=== PATIENT | female | born 1945 | race Caucasian/White ===

== ENCOUNTER 2017-02-25 12:00 | Inpatient (IN) | payer MEDICARE, OTHER ==
[2017-02-25 12:07] VITALS: BMI 34.0
[2017-02-25] MEDS ORDERED: Sodium Chloride 0.9% 1,000 ML IV ONE (12:28)
[2017-02-25] MEDS ORDERED: Iohexol 240 (50 ml) PO STA (12:30)
[2017-02-25] MEDS ORDERED: Iohexol 240 (50 ml) ONE (13:12)
[2017-02-25] MEDS ORDERED: Water For Injection 40 ML IV ONE (13:12)
[2017-02-25 13:20] LABS: BASO # 0.1 K/uL (0.0-0.2); BASO % 0.9 % (0.0-2.0); EOS # 0.1 K/uL (0.0-0.7); EOS % 1.6 % (0.0-4.0); HEMATOCRIT 31.4 % (34.0-47.0); LYMPH # 1.5 K/uL (1.0-4.3); LYMPH % 16.4 % (20.0-40.0); MEAN CELL VOLUME 81.7 fL (81.0-99.0); MEAN CORPUSCULAR HEMOGLOBIN 26.3 pg (27.0-31.0); MEAN CORPUSCULAR HGB CONC 32.2 g/dL (33.0-37.0); MEAN PLATELET VOLUME 9.3 fL (7.2-11.7); MONO # 1.5 K/uL (0.0-0.8); MONO % 16.6 % (0.0-10.0); RED CELL DISTRIBUTION WIDTH 13.2 % (11.5-14.5); WHITE BLOOD COUNT 9.1 K/uL (4.8-10.8)
[2017-02-25 13:21] LABS: POTASSIUM 4.5 mmol/L (3.6-5.2)
[2017-02-25 13:23] LABS: ALB/GLOB RATIO 1.1 (1.0-2.1); BILIRUBIN,TOTAL 0.5 mg/dL (0.2-1.3); TOTAL PROTEIN 6.9 g/dL (6.3-8.3)
[2017-02-25 13:24] LABS: CALCIUM 8.5 mg/dl (8.6-10.4)
[2017-02-25 13:35] LABS: TROPONIN I 0.039 ng/mL (0.00-0.120)
--- NOTE | 2017-02-25 15:48 | CT ---
PROCEDURE: CT Abdomen and Pelvis with contrast HISTORY: LLQ pain COMPARISON: None. TECHNIQUE: Contrast dose: Oral contrast only. Radiation dose: Total exam DLP = 1164.06 mGy-cm. This CT exam was performed using one or more of the following dose reduction techniques: Automated exposure control, adjustment of the mA and/or kV according to patient size, and/or use of iterative reconstruction technique. FINDINGS: LOWER THORAX: Platelike atelectasis at the lung bases. LIVER: Unremarkable. No gross lesion or ductal dilatation. GALLBLADDER AND BILE DUCTS: Unremarkable. PANCREAS: Unremarkable. No gross lesion or ductal dilatation. SPLEEN: Unremarkable. ADRENALS: Unremarkable. No mass. KIDNEYS AND URETERS: Unremarkable. No hydronephrosis. No solid mass. Perinephric stranding on the left which may represent a component of pyelonephritis. VASCULATURE: Unremarkable. No aortic aneurysm. BOWEL: Unremarkable. No obstruction. No gross mural thickening. Diverticulosis without an acute inflammatory component or other associated pathologic process. APPENDIX: Normal appendix. PERITONEUM: Unremarkable. No free fluid. No free air. LYMPH NODES: Mesenteric and retroperitoneal lymphadenopathy. The preponderance of lymph nodes are 1 cm and less. The largest lymph node interposed between the aorta in the left kidney measures 15 mm. There is fullness of the left renal vein compared to the right, this is a nonspecific finding. BLADDER: Air within the urinary bladder. REPRODUCTIVE: Air within the vagina. The findings suggest possibility of vesico vaginal fistula. BONES: No acute fracture. OTHER FINDINGS: None. IMPRESSION: 1. Air within the vagina and urinary bladder. In the absence of recent instrumentation vesicle vaginal fistula should be considered. 2. Retroperitoneal and mesenteric adenopathy of uncertain etiology and significance. 3. Subtle perinephric stranding on the left. Fullness of the left renal vein identified. Although extremely unlikely, the findings can be seen with renal vein thrombosis. No evidence of obstructive uropathy or renal calculus disease.
--- NOTE | 2017-02-25 15:52 | CT ---
PROCEDURE: CT HEAD WITHOUT CONTRAST. HISTORY: Dizziness, h/o surgery for pituitary adenoma COMPARISON: 11/28/2016. TECHNIQUE: Axial computed tomography images were obtained through the head/brain without intravenous contrast. Radiation dose: Total exam DLP = 978.09 mGy-cm. This CT exam was performed using one or more of the following dose reduction techniques: Automated exposure control, adjustment of the mA and/or kV according to patient size, and/or use of iterative reconstruction technique. FINDINGS: HEMORRHAGE: No intracranial hemorrhage. BRAIN: No mass effect or edema. No atrophy or chronic microvascular ischemic changes. VENTRICLES: Unremarkable. No hydrocephalus. CALVARIUM: Unremarkable. PARANASAL SINUSES: Ethmoid and sphenoid air cell disease, new compared to the prior study. Right frontal sinusitis also noted. MASTOID AIR CELLS: Unremarkable as visualized. No inflammatory changes. OTHER FINDINGS: None. IMPRESSION: No acute intracranial abnormalities. No significant findings to account for the clinical presentation. Paranasal sinusitis, sparing of the maxillary sinuses, new findings compared to the prior study.
[2017-02-25 16:37] LABS: RBC URINE 16 /hpf (0-3); TRANSITIONAL EPITHIAL < 1 /hpf (0-3); URINE BACTERIA MOD (<OCC); URINE BILIRUBIN NEGATIVE (NEGATIVE); URINE BLOOD NEGATIVE (NEGATIVE); URINE COLOR Yellow (YELLOW); URINE GLUCOSE (UA) 1+ mg/dL (Normal); URINE KETONE NEGATIVE (NEGATIVE); URINE LEUKOCYTE ESTERASE 3+ Leu/uL (Negative); URINE PROTEIN 3+ mg/dL (NEGATIVE); URINE UROBILINOGEN NORMAL mg/dL (0.2-1.0); WBC URINE 182 /hpf (0-5)
[2017-02-25] MEDS ORDERED: Ciprofloxacin 200mg/100ml D5W 100 ML IVPB STA (16:50)
--- NOTE | 2017-02-25 16:54 | C.PDOC ---
Time Seen by Provider: 02/25/17 12:11 Chief Complaint (Nursing): Abdominal Pain History Per: Patient, Family Onset/Duration Of Symptoms: Days (4?) Current Symptoms Are (Timing): Still Present Severity: Moderate Location Of Pain/Discomfort: LLQ Radiation Of Pain To:: Back Quality Of Discomfort: Unable To Describe, "Pain" Associated Symptoms: Diarrhea (today) Exacerbating Factors: None Alleviating Factors: None Additional History Per: Prior Records Abnormal Vaginal Bleeding: No Past Medical History Reviewed: Historical Data, Nursing Documentation, Vital Signs Vital Signs: Last Vital Signs Temp 98.3 F 02/25/17 12:06 Pulse 61 02/25/17 16:26 Resp 16 02/25/17 16:26 BP 128/59 L 02/25/17 16:26 Pulse Ox 100 02/25/17 16:26 - Medical History PMH: CAD, Diabetes, HTN, Hypercholesterolemia, Chronic Kidney Disease Surgical History: Coronary Stent (10/2015) Other Surgeries: Hysterectomy. s/p surgery for Pituitary tumor 1 month ago. - Everyday Health Procedures INDIVIDUAL PSYCHOTHERAPY, SUPPORTIVE (11/23/16) MEASURE OF CARDIAC SAMPL & PRESSURE, L HEART, PERC APPROACH (10/14/15) OTHER COUNSELING (11/23/16) PLAIN RADIOGRAPHY OF MULT COR ART USING L OSM CONTRAST (10/14/15) Family History: States: Diabetes - Social History Hx Tobacco Use: No Hx Alcohol Use: No Hx Substance Use: No - Immunization History Hx Tetanus Toxoid Vaccination: No Hx Influenza Vaccination: Yes Hx Pneumococcal Vaccination: Yes Review Of Systems Except As Marked, All Systems Reviewed And Found Negative. Constitutional: Negative for: Fever Cardiovascular: Negative for: Chest Pain Respiratory: Negative for: Shortness of Breath Gastrointestinal: Positive for: Abdominal Pain. Negative for: Vomiting, Melena , Hematochezia, Hematemesis Genitourinary: Positive for: Incontinence Musculoskeletal: Negative for: Neck Pain Skin: Negative for: Rash Neurological: Positive for: Dizziness. Negative for: Weakness, Numbness, Seizures Physical Exam - Physical Exam Appears: No Acute Distress, Chronically Ill Skin: Normal Color, Warm, Dry, No Rash Head: Atraumatic, Normacephalic Eye(s): left: Abnormal Pupil Oral Mucosa: Dry Neck: Normal ROM, Supple Cardiovascular: Rhythm Regular Respiratory: Normal Breath Sounds, No Accessory Muscle Use Gastrointestinal/Abdominal: Soft, Tenderness (LLQ) Back: CVA Tenderness (mild left) Extremity: Normal ROM Neurological/Psych: Oriented x3, Normal Motor, Normal Sensation ED Course And Treatment - Laboratory Results Result Diagrams: 02/25/17 13:09 02/25/17 13:09 Interpretation Of Abnormal: UTI. Renal insufficiency. O2 Sat by Pulse Oximetry: 100 Pulse Ox Interpretation: Normal - CT Scan/US CT head Other Rad Studies (CT/US): Read By Radiologist, Radiology Report Reviewed CT/US Interpretation: IMPRESSION: No acute intracranial abnormalities. No significant findings to account for the clinical presentation. Paranasal sinusitis, sparing of the maxillary sinuses, new findings compared to the prior study. CT abdomen/pelvis Other Rad Studies (CT/US): Read By Radiologist, Radiology Report Reviewed CT/US Interpretation: IMPRESSION: 1. Air within the vagina and urinary bladder. In the absence of recent instrumentation vesicle vaginal fistula should be considered. 2. Retroperitoneal and mesenteric adenopathy of uncertain etiology and significance. 3. Subtle perinephric stranding on the left. Fullness of the left renal vein identified. Although extremely unlikely , the findings can be seen with renal vein thrombosis. No evidence of obstructive uropathy or renal calculus disease. Progress - Interventions Interventions:: Observation, Intravenous fluid - Medications Administered Intravenous: Antiemetic - Data Reviewed Data Reviewed: Lab, Diagnostic imaging, Old records - Patient Status Patient status: Partially improved - Continuity of Care Discussed patient case with:: Patient, Family-HIPPA compliant, ED Nurse, PMD - Patient Plan Patient Plan: Admission Disposition Discussed With : Renato Orlando Comment: He accepted pt on his service. He wants pt to receive Cipro 200mg IV bid. Doctor Will See Patient In The: Hospital Counseled Patient/Family Regarding: Studies Performed, Diagnosis - Disposition Disposition: HOSPITALIZED Disposition Time: 16:57 Condition: FAIR - Clinical Impression Clinical Impression: Vesico-vaginal fistula, Complicated UTI (urinary tract infection), Paranasal sinus disease, Chronic renal failure
--- NOTE | 2017-02-25 18:48 | CP.PCM.HP ---
History of Present Illness - History of Present Illness History of Present Illness: Chief complaint: Weakness History present illness: 71-year-old female with history of diabetes hypertension and hypercholesteremia CAD coronary artery stenting renal insufficiency history of pituitary tumor, recently had surgical intervention. Patient is currently taking supplementation for cortisol, thyroid. Patient is currently feeling increasing weakness, tiredness, easy fatigability, depressed appearing She's also complaining of some pain over the left lower quadrant region. Urinary discomfort noted. Patient is looking like extremely depressed. Her blood pressure stays on the low side. She is not eating well, poor appetite noted, denies any chest pain, no palpitation noted. But not feeling well at all. Postoperatively patient was being managed by the email marketing coordinator. Currently on supplemental thyroid hormones as well as cortisol. Patient is having very highly elevated blood sugar recently. She is feeling also some dizziness, weakness, tiredness, easy fatigability. And skin also getting more darker Past medical history: Diabetes hypertension and hypercholesteremia CAD status post distended renal insufficiency, pituitary tumor removal. Patient had a left the eye droop which is improving Allergy: No known drug allergy Personal history: Nonsmoker nonalcoholic. Review of system: Complaining of headache, complaining of nausea, but no vomiting noted, no chest pain, no palpitation, weakness tiredness present. Abdominal discomfort noted, left lower quadrant tenderness and pain noted. Also having episodes of diarrhea. Urinary discomfort noted. Incontinence present. No leg swelling On examination: Vital signs reviewed No neck vein distention noted, dry mucosa noted Chest good air entry bilaterally, no wheezing or rales noted CVS regular heart sound, no murmur noted Abdomen soft, nontender. 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 Urinary incontinence. Questionable stranding of the left kidney, suggestive of infection. Urine analysis showing evidence of elevated WBC, elevated bacteriuria is noted Assessment and recommendation: 71-year-old female with history of diabetes hypertension hyponatremia CAD status post a stent to coronary artery disease, renal insufficiency. Patient recently underwent a pituitary tumor removal. Currently on supplemental hormones. Patient is having increasing depression, and also hypertension. Evidence of hypoadrenalism cannot be ruled out. Suggested the patient to have further workup for hormonal imbalance. Urinary tract infection noted, possibly urosepsis. We'll start the patient on IV antibiotic. IV fluids. We'll check for cord PSH cortisol level. Supplement the thyroid and hormones, cortisone. Glucose monitoring. We will follow the patient Present on Admission - Present on Admission Any Indicators Present on Admission: No History of DVT/PE: No History of Uncontrolled Diabetes: No Urinary Catheter: No Decubitus Ulcer Present: No Past Patient History - Infectious Disease Hx of Infectious Diseases: None - Past Medical History & Family History Past Medical History?: Yes - Past Social History Smoking Status: Never Smoked - CARDIAC Hx Hypercholesterolemia: Yes Hx Hypertension: Yes - PULMONARY Hx Respiratory Disorders: No - NEUROLOGICAL Hx Neurological Disorder: No - HEENT Hx HEENT Problems: Yes Other/Comment: left eye drooping-blurry due to DM - RENAL Hx Chronic Kidney Disease: Yes - ENDOCRINE/METABOLIC Hx Diabetes Mellitus Type 2: Yes - HEMATOLOGICAL/ONCOLOGICAL Hx Blood Disorders: No - INTEGUMENTARY Hx Dermatological Problems: No - MUSCULOSKELETAL/RHEUMATOLOGICAL Hx Musculoskeletal Disorders: No Hx Falls: No - GASTROINTESTINAL Hx Gastrointestinal Disorders: No - GENITOURINARY/GYNECOLOGICAL Hx Genitourinary Disorders: No - PSYCHIATRIC Hx Substance Use: No - SURGICAL HISTORY Hx Coronary Stent: Yes (10/2015) - ANESTHESIA Hx Anesthesia: Yes Hx Anesthesia Reactions: No Hx Malignant Hyperthermia: No Meds Allergies/Adverse Reactions: Allergies Allergy/AdvReac Type Severity Reaction Status Date / Time No Known Allergies Allergy Verified 02/25/17 12:08 Results - Vital Signs Recent Vital Signs: Last Vital Signs Temp 98.3 F 02/25/17 12:06 Pulse 60 02/25/17 17:30 Resp 20 02/25/17 17:30 BP 135/62 02/25/17 17:30 Pulse Ox 100 02/25/17 17:30 - Labs Result Diagrams: 02/25/17 13:09 02/25/17 13:09
[2017-02-25] MEDS: Ciprofloxacin 200mg/100ml D5W 100 ML IVPB SCH (19:00)
[2017-02-25] MEDS: Sodium Chloride 0.9% 1,000 ML IV SCH (19:27)
[2017-02-25] MEDS: (Novolin R) Insulin Human Regular 100 units/ml vial SC SCH (22:17)
[2017-02-25] MEDS: (Lantus) Insulin Glargine, Recombinant SC SCH (22:26)
[2017-02-26] MEDS: Levothyroxine 25 MCG TAB PO SCH (05:35)
[2017-02-26] MEDS: Ciprofloxacin 200mg/100ml D5W 100 ML IVPB SCH ×2 (05:44→18:04)
[2017-02-26 06:39] LABS: RBC URINE < 1 /hpf (0-3); URINE BACTERIA RARE (<OCC); URINE BILIRUBIN NEGATIVE (NEGATIVE); URINE BLOOD 1+ (NEGATIVE); URINE COLOR Straw (YELLOW); URINE GLUCOSE (UA) 2+ mg/dL (Normal); URINE KETONE NEGATIVE (NEGATIVE); URINE LEUKOCYTE ESTERASE 3+ Leu/uL (Negative); URINE PROTEIN 2+ mg/dL (NEGATIVE); URINE UROBILINOGEN NORMAL mg/dL (0.2-1.0); WBC URINE 3 /hpf (0-5)
[2017-02-26 08:28] LABS: BASO # 0.1 K/uL (0.0-0.2); BASO % 0.6 % (0.0-2.0); EOS # 0.3 K/uL (0.0-0.7); EOS % 3.7 % (0.0-4.0); HEMATOCRIT 28.6 % (34.0-47.0); LYMPH # 1.9 K/uL (1.0-4.3); LYMPH % 23.2 % (20.0-40.0); MEAN CELL VOLUME 80.5 fL (81.0-99.0); MEAN CORPUSCULAR HEMOGLOBIN 26.4 pg (27.0-31.0); MEAN CORPUSCULAR HGB CONC 32.7 g/dL (33.0-37.0); MEAN PLATELET VOLUME 9.4 fL (7.2-11.7); MONO # 1.1 K/uL (0.0-0.8); MONO % 13.3 % (0.0-10.0); NRBC % 0.1 % (0.0-2.0); RED CELL DISTRIBUTION WIDTH 12.8 % (11.5-14.5); WHITE BLOOD COUNT 8.1 K/uL (4.8-10.8)
[2017-02-26] MEDS: (Novolin R) Insulin Human Regular 100 units/ml vial SC SCH ×4 (08:30→21:44)
[2017-02-26 08:36] LABS: BILIRUBIN,TOTAL 0.4 mg/dL (0.2-1.3)
[2017-02-26 08:37] LABS: CALCIUM 7.9 mg/dl (8.6-10.4)
[2017-02-26 09:06] LABS: CORTISOL AM 12.8 ug/dL (4.46-22.7); THYROID STIMULATING HORMONE 0.41 mIU/L (0.46-4.68)
[2017-02-26] MEDS: Sodium Chloride 0.9% 1,000 ML IV SCH ×2 (09:19→21:47)
--- NOTE | 2017-02-26 12:59 | CP.PCM.PN ---
Subjective - Date & Time of Evaluation Date of Evaluation: 02/26/17 Time of Evaluation: 14:30 - Subjective Subjective: Patient was seen and examined at bedside She complains of generalized weakness and dizziness. Patient had episode of hypotension earlier today when she got up to go the bathroom. Objective - Vital Signs/Intake and Output Vital Signs (last 24 hours): Temp Pulse Resp BP Pulse Ox 98.9 F 74 20 133/71 98 02/26/17 07:30 02/26/17 07:30 02/26/17 07:30 02/26/17 07:30 02/26/17 07:30 Intake and Output: 02/26/17 02/26/17 06:59 18:59 Intake Total 840 Balance 840 - Medications Medications: Current Medications Amlodipine Besylate (Norvasc) 10 mg PO DAILY [facility] Last Admin: 02/26/17 10:45 Dose: 10 mg Aspirin (Ecotrin) 81 mg PO DAILY [facility] Last Admin: 02/26/17 10:45 Dose: 81 mg Carvedilol (Coreg) 6.25 mg PO BID [facility] Last Admin: 02/26/17 10:45 Dose: 6.25 mg Clopidogrel Bisulfate (Plavix) 75 mg PO DAILY [facility] Last Admin: 02/26/17 10:45 Dose: 75 mg Ergocalciferol (Drisdol 50,000 Intl Units Cap) 1 cap PO QWK [facility] Famotidine (Pepcid) 20 mg PO DAILY [facility] Last Admin: 02/26/17 10:45 Dose: 20 mg Ferrous Sulfate (Feosol) 325 mg PO DAILY [facility] Last Admin: 02/26/17 10:45 Dose: 325 mg Glipizide (Glucotrol) 10 mg PO DAILY [facility] Last Admin: 02/26/17 10:45 Dose: 10 mg Heparin Sodium (Porcine) (Heparin) 5,000 units SC Q8 [facility] Last Admin: 02/26/17 05:36 Dose: 5,000 units Hydralazine HCl (Apresoline) 25 mg PO Q8 [facility] Last Admin: 02/26/17 05:40 Dose: 25 mg Hydrocortisone (Cortef) 10 mg PO BID [facility] Last Admin: 02/26/17 10:46 Dose: 10 mg Ciprofloxacin (Cipro 200mg/100ml D5w) 100 mls @ 67 mls/hr IVPB Q12H [facility] Last Admin: 02/26/17 05:44 Dose: 67 mls/hr Sodium Chloride (Sodium Chloride 0.9%) 1,000 mls @ 75 mls/hr IV .[id number] [facility] Last Admin: 02/26/17 09:19 Dose: 75 mls/hr Insulin Glargine (Lantus) [address] [facility] Last Admin: 02/25/17 22:26 Dose: 20 units Insulin Human Regular (Novolin R) 0 unit SC ACHS [facility] PRN Reason: Protocol Last Admin: 02/26/17 12:30 Dose: 2 unit Isosorbide Mononitrate (Imdur) 60 mg PO DAILY [facility] Last Admin: 02/26/17 10:45 Dose: 60 mg Levothyroxine Sodium (Synthroid) 25 mcg PO DAILY@0630 [facility] Last Admin: 02/26/17 05:35 Dose: 25 mcg Rosuvastatin Calcium (Crestor) 2.[address] [facility] - Labs Labs: 02/26/17 08:16 02/26/17 08:16 APTT 47 SECONDS (21-34) H 02/26/17 08:16 - Head Exam Head Exam: ATRAUMATIC, NORMOCEPHALIC - Eye Exam Eye Exam: Normal appearance, PERRL. absent: Scleral icterus - Respiratory Exam Respiratory Exam: Clear to Ausculation Bilateral - Cardiovascular Exam Cardiovascular Exam: REGULAR RHYTHM, +S1, +S2 - GI/Abdominal Exam GI & Abdominal Exam: Soft, Normal Bowel Sounds - Extremities Exam Extremities Exam: Normal Inspection. absent: Pedal Edema - Neurological Exam Neurological Exam: Alert, Awake - Psychiatric Exam Additional comments: Depressed mood Assessment and Plan (1) Dizziness Status: Acute (2) Hypotension Status: Acute (3) Pituitary adenoma Status: Acute (4) CAD (coronary artery disease) Status: Acute (5) Diabetes Status: Acute (6) Dyslipidemia Status: Acute - Assessment and Plan (Free Text) Plan: Dizziness and weakness likely secondary to hypotension vs hypocortisolism Will hold Norvasc and Hydralazine and monitor BP closely- Continue IVF Follow up ACTH level We will continue current management of DM Discussed with nursing staff Fall precautions
[2017-02-26] MEDS: Rosuvastatin Calcium 2.5 mg Tab PO SCH (21:43)
[2017-02-26] MEDS: (Lantus) Insulin Glargine, Recombinant SC SCH (21:43)
[2017-02-27] MEDS: Levothyroxine 25 MCG TAB PO SCH (05:32)
[2017-02-27] MEDS: Ciprofloxacin 200mg/100ml D5W 100 ML IVPB SCH ×2 (06:01→17:45)
[2017-02-27] MEDS: (Novolin R) Insulin Human Regular 100 units/ml vial SC SCH ×4 (08:49→21:26)
[2017-02-27] MEDS: Sodium Chloride 0.9% 1,000 ML IV SCH (11:30)
--- NOTE | 2017-02-27 19:19 | CP.PCM.PN ---
Subjective - Date & Time of Evaluation Date of Evaluation: 02/27/17 Time of Evaluation: 19:18 - Subjective Subjective: Patient is currently feeling much better in her symptoms. Less pain in the urination noted. Denies any chest pain. No nausea vomiting noted, rash around the perianal region noted Objective - Vital Signs/Intake and Output Vital Signs (last 24 hours): Temp Pulse Resp BP Pulse Ox 98.4 F 68 20 124/61 96 02/27/17 15:10 02/27/17 15:10 02/27/17 15:10 02/27/17 15:10 02/27/17 15:10 Intake and Output: 02/27/17 02/28/17 18:59 06:59 Intake Total 950 Balance 950 Vital signs reviewed No neck vein distention noted Chest good air entry bilaterally, no wheezing or rales noted CVS regular heart sound, no murmur noted Abdomen soft, nontender. 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 3, no functional neurological deficit - Medications Medications: Current Medications Amlodipine Besylate (Norvasc) 10 mg PO DAILY [facility] Last Admin: 02/26/17 10:45 Dose: 10 mg Aspirin (Ecotrin) 81 mg PO DAILY [facility] Last Admin: 02/27/17 11:09 Dose: 81 mg Carvedilol (Coreg) 6.25 mg PO BID [facility] Last Admin: 02/27/17 17:36 Dose: 6.25 mg Clopidogrel Bisulfate (Plavix) 75 mg PO DAILY [facility] Last Admin: 02/27/17 11:09 Dose: 75 mg Ergocalciferol (Drisdol 50,000 Intl Units Cap) 1 cap PO QWK [facility] Famotidine (Pepcid) 20 mg PO DAILY [facility] Last Admin: 02/27/17 11:10 Dose: 20 mg Ferrous Sulfate (Feosol) 325 mg PO DAILY [facility] Last Admin: 02/27/17 11:09 Dose: 325 mg Glipizide (Glucotrol) 10 mg PO DAILY [facility] Last Admin: 02/27/17 11:10 Dose: 10 mg Heparin Sodium (Porcine) (Heparin) 5,000 units SC Q8 [facility] Last Admin: 02/27/17 14:14 Dose: 5,000 units Hydralazine HCl (Apresoline) 25 mg PO Q8 [facility] Last Admin: 02/26/17 05:40 Dose: 25 mg Hydrocortisone (Cortef) 10 mg PO BID [facility] Last Admin: 02/27/17 17:36 Dose: 10 mg Ciprofloxacin (Cipro 200mg/100ml D5w) 100 mls @ 67 mls/hr IVPB Q12H [facility] Last Admin: 02/27/17 17:45 Dose: 67 mls/hr Sodium Chloride (Sodium Chloride 0.9%) 1,000 mls @ 75 mls/hr IV .[id number] [facility] Last Admin: 02/27/17 11:30 Dose: Not Given Insulin Glargine (Lantus) 20 unit SC [facility] Last Admin: 02/26/17 21:43 Dose: 20 units Insulin Human Regular (Novolin R) 0 unit SC [facility] PRN Reason: Protocol Last Admin: 02/27/17 17:35 Dose: 4 unit Isosorbide Mononitrate (Imdur) 60 mg PO DAILY [facility] Last Admin: 02/27/17 11:09 Dose: 60 mg Levothyroxine Sodium (Synthroid) 25 mcg PO DAILY@0630 [facility] Last Admin: 02/27/17 05:32 Dose: 25 mcg Rosuvastatin Calcium (Crestor) 2.5 mg PO [facility] Last Admin: 02/26/17 21:43 Dose: 2.5 mg - Labs Labs: 02/26/17 08:16 02/26/17 08:16 APTT 47 SECONDS (21-34) H 02/26/17 08:16 Assessment and Plan (1) Chronic renal failure Status: Acute (2) Complicated UTI (urinary tract infection) Assessment & Plan: Admitted with acute urinary tract infection, complicated with the sepsis. Currently improving. On ciprofloxacin. Physical therapy tomorrow. Status: Acute (3) Pituitary adenoma Status: Acute
[2017-02-27] MEDS: (Lantus) Insulin Glargine, Recombinant SC SCH (21:27)
[2017-02-27] MEDS: Rosuvastatin Calcium 2.5 mg Tab PO SCH (21:28)
[2017-02-27] MEDS: Clotrimazole/Betamethasone Cream(15 gm) TOP SCH (21:58)
[2017-02-28] MEDS: Sodium Chloride 0.9% 1,000 ML IV SCH ×2 (00:20→01:57)
[2017-02-28] MEDS: Levothyroxine 25 MCG TAB PO SCH (05:48)
[2017-02-28] MEDS: Ciprofloxacin 200mg/100ml D5W 100 ML IVPB SCH ×2 (05:48→17:45)
[2017-02-28 08:20] VITALS: O2SAT 97
--- NOTE | 2017-02-28 08:27 | CP.PCM.PN ---
Subjective - Date & Time of Evaluation Date of Evaluation: 02/28/17 Time of Evaluation: 08:26 - Subjective Subjective: Patient is sitting up, able to eat better. She denies any chest pain or shortness of breath. No leg swelling noted. But facial swelling, minimally noted. Currently on IV fluid. Objective - Vital Signs/Intake and Output Vital Signs (last 24 hours): Temp Pulse Resp BP Pulse Ox 98.2 F 58 L 18 106/61 97 02/28/17 08:00 02/28/17 08:00 02/28/17 08:00 02/28/17 08:00 02/28/17 08:00 On examination: HEENT PERRLA, neck supple No thyromegaly was noted and no cervical adenopathy noted Chest bilateral good air entry, no wheezing or rales noted CVS regular heart sound, no murmur Abdomen soft and no organomegaly pedal edema. 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 no functional neurological deficit Intake and Output: 02/28/17 02/28/17 06:59 18:59 Intake Total 720 Balance 720 - Medications Medications: Current Medications Amlodipine Besylate (Norvasc) 10 mg PO DAILY [facility] Last Admin: 02/26/17 10:45 Dose: 10 mg Aspirin (Ecotrin) 81 mg PO DAILY [facility] Last Admin: 02/27/17 11:09 Dose: 81 mg Betamethasone/Clotrimazole (Lotrisone) 0 gm TOP BID [facility] Last Admin: 02/27/17 21:58 Dose: 1 applic Carvedilol (Coreg) 6.25 mg PO BID [facility] Last Admin: 02/27/17 17:36 Dose: 6.25 mg Clopidogrel Bisulfate (Plavix) 75 mg PO DAILY [facility] Last Admin: 02/27/17 11:09 Dose: 75 mg Ergocalciferol (Drisdol 50,000 Intl Units Cap) 1 cap PO QWK [facility] Famotidine (Pepcid) 20 mg PO DAILY [facility] Last Admin: 02/27/17 11:10 Dose: 20 mg Ferrous Sulfate (Feosol) 325 mg PO DAILY [facility] Last Admin: 02/27/17 11:09 Dose: 325 mg Glipizide (Glucotrol) 10 mg PO DAILY [facility] Last Admin: 02/27/17 11:10 Dose: 10 mg Heparin Sodium (Porcine) (Heparin) 5,000 units SC Q8 [facility] Last Admin: 02/28/17 05:47 Dose: 5,000 units Hydralazine HCl (Apresoline) 25 mg PO Q8 [facility] Last Admin: 02/26/17 05:40 Dose: 25 mg Hydrocortisone (Cortef) 10 mg PO BID [facility] Last Admin: 02/27/17 17:36 Dose: 10 mg Ciprofloxacin (Cipro 200mg/100ml D5w) 100 mls @ 67 mls/hr IVPB Q12H [facility] Last Admin: 02/28/17 05:48 Dose: 67 mls/hr Sodium Chloride (Sodium Chloride 0.9%) 1,000 mls @ 75 mls/hr IV .[id number] [facility] Last Admin: 02/28/17 01:57 Dose: 75 mls/hr Insulin Glargine (Lantus) [address] [facility] Last Admin: 02/27/17 21:27 Dose: 20 units Insulin Human Regular (Novolin R) 0 unit SC [facility] PRN Reason: Protocol Last Admin: 02/27/17 21:26 Dose: 3 unit Isosorbide Mononitrate (Imdur) 60 mg PO DAILY [facility] Last Admin: 02/27/17 11:09 Dose: 60 mg Levothyroxine Sodium (Synthroid) 25 mcg PO DAILY@0630 [facility] Last Admin: 02/28/17 05:48 Dose: 25 mcg Rosuvastatin Calcium (Crestor) 2.[address] [facility] Last Admin: 02/27/17 21:28 Dose: 2.5 mg - Labs Labs: 02/26/17 08:16 02/26/17 08:16 APTT 47 SECONDS (21-34) H 02/26/17 08:16 Assessment and Plan (1) Complicated UTI (urinary tract infection) Assessment & Plan: Patient with chronic renal failure, diabetes, hypertension. Poorly controlled diabetes. Patient is currently having urinary tract infection, sepsis, improving. Currently on IV antibiotic. Will do the physical therapy, and the patient stable and able to walk. Will discharge the patient this afternoon with by mouth antibiotic Status: Acute (2) Pituitary adenoma Status: Acute (3) Chronic renal failure Status: Acute
[2017-02-28] MEDS: (Novolin R) Insulin Human Regular 100 units/ml vial SC SCH ×3 (08:31→17:18)
[2017-02-28] MEDS: Clotrimazole/Betamethasone Cream(15 gm) TOP SCH ×2 (11:07→17:25)
[2017-02-28 17:08] VITALS: BP 129/64; PULSE 50; RESP 20; TEMP 97.4
[2017-03-04] MEDS ORDERED: Ergocalciferol 50,000 Intl Units Cap PO SCH (10:00)
--- NOTE | 2017-05-07 13:41 | DS ---
HISTORY OF PRESENT ILLNESS: A 71-year-old female with a history of diabetes, hypertension, high cholesterol, CAD, coronary artery bypass, coronary artery stenting, anal insufficiency, status post surgical intervention, admitted to the hospital with weakness. The patient is noted to have increasing episodes of weakness, dehydration, and also uncontrolled blood pressure. The patient was hospitalized, closely monitored with the blood sugar. The patient also have elevated WBC and the bacteria in the urine, suspect of urinary tract infection. During the stay in the hospital, the patient started to have intravenous IV antibiotic, glucose control started, physical therapy attempted, the patient clinically improved markedly. The patient is able to sit up and eat better. IV fluid also improving. The patient's facial swelling also improved markedly. Clinically, the patient is stable. She will be discharged to home. She will follow up as an outpatient. Medications reviewed. Reconciliation was done. Difficulty with the patient's family and we will follow up with the patient. Renato Orlando MD
== END 2017-02-28 19:30 | disposition home or self-care (01) | DRG 690 ==
LOC: C.ER 12:00 → C.9E 16:59 → C.3T 17:13
PROVIDERS: ADMIT Internal Medicine; ATTEND Internal Medicine
DX: N39.0 Urinary tract infection, site not specified (principal); N82.0 Vesicovaginal fistula; I95.9 Hypotension, unspecified; E11.22 Type 2 diabetes mellitus with diabetic chronic kidney disease; N39.498 Other specified urinary incontinence; E11.65 Type 2 diabetes mellitus with hyperglycemia; I25.10 Atherosclerotic heart disease of native coronary artery without angina pectoris; I12.9 Hypertensive chronic kidney disease with stage 1 through stage 4 chronic kidney disease, or unspecified chronic kidney disease; D35.2 Benign neoplasm of pituitary gland; J32.9 Chronic sinusitis, unspecified; H02.402 Unspecified ptosis of left eyelid; E78.00 Pure hypercholesterolemia, unspecified; Z95.5 Presence of coronary angioplasty implant and graft; Z79.84 Long term (current) use of oral hypoglycemic drugs

== ENCOUNTER 2017-07-22 19:36 | Inpatient (IN) | payer MEDICARE ==
[2017-07-22 19:36] VITALS: BMI 34.0
[2017-07-22] MEDS ORDERED: Sodium Chloride 0.9% 500 ML IV ONE (20:26)
--- NOTE | 2017-07-22 20:33 | C.PDOC ---
Chief Complaint (Nursing): Abdominal Pain Past Medical History Vital Signs: Last Vital Signs Temp 99 F 07/22/17 19:43 Pulse 70 07/22/17 19:43 Resp 20 07/22/17 19:43 BP 119/79 07/22/17 19:43 Pulse Ox 99 07/22/17 19:43 - Medical History PMH: CAD, Diabetes, HTN, Hypercholesterolemia, Chronic Kidney Disease Surgical History: Coronary Stent (10/2015) - [facility] Procedures INDIVIDUAL PSYCHOTHERAPY, SUPPORTIVE (11/23/16) MEASURE OF CARDIAC SAMPL & PRESSURE, L HEART, PERC APPROACH (10/14/15) OTHER COUNSELING (11/23/16) PLAIN RADIOGRAPHY OF MULT COR ART USING L OSM CONTRAST (10/14/15) Family History: States: Diabetes - Social History Hx Tobacco Use: No Hx Alcohol Use: No Hx Substance Use: No - Immunization History Hx Tetanus Toxoid Vaccination: No Hx Influenza Vaccination: Yes Hx Pneumococcal Vaccination: Yes ED Course And Treatment O2 Sat by Pulse Oximetry: 99 Disposition - Disposition
[2017-07-22] MEDS ORDERED: Morphine 4 MG/ML VIAL ONE (20:40)
--- NOTE | 2017-07-22 20:50 | C.PDOC ---
History Of Present Illness Patient is a 71 y/o female, with a PMHx of insulin-dependent DM, who presents to the ED with complaints of intermittent epigastric and RUQ pain associated with vomiting for the last 5 days. Patient describes pain as burning that worsens with deep inspirations and radiates to the back. Patient notes unproductive cough and admits vomiting approximately twice a day, unprovoked by eating or drinking. Denies fever or any PMHx of gallbladder issues, reflux, or appendectomy. Admits to PSHx of hysterectomy and coronary stent. Patient reports taking Tylenol to try to alleviate pain. No other physical complaints at this time. Chief Complaint (Nursing): Abdominal Pain History Per: Patient History/Exam Limitations: no limitations Onset/Duration Of Symptoms: Days (x5 days), Intermittent Episodes Current Symptoms Are (Timing): Still Present Location Of Pain/Discomfort: RUQ, Epigastric Quality Of Discomfort: Burning Associated Symptoms: Chills, Vomiting, Back Pain (radiates to back). denies: Fever Recent travel outside of the [place]: No Additional History Per: Patient Past Medical History Reviewed: Historical Data, Nursing Documentation, Vital Signs Vital Signs: Last Vital Signs Temp 97.9 F 07/23/17 02:38 Pulse 74 07/23/17 02:38 Resp 20 07/23/17 02:38 BP 169/77 H 07/23/17 02:38 Pulse Ox 99 07/23/17 02:42 - Medical History PMH: CAD, Diabetes, HTN, Hypercholesterolemia, Chronic Kidney Disease Surgical History: Coronary Stent (10/2015) Other Surgeries: hysterectomy - [facility] Procedures INDIVIDUAL PSYCHOTHERAPY, SUPPORTIVE (11/23/16) MEASURE OF CARDIAC SAMPL & PRESSURE, L HEART, PERC APPROACH (10/14/15) OTHER COUNSELING (11/23/16) PLAIN RADIOGRAPHY OF MULT COR ART USING L OSM CONTRAST (10/14/15) Family History: States: Diabetes - Social History Hx Tobacco Use: No Hx Alcohol Use: No Hx Substance Use: No - Immunization History Hx Tetanus Toxoid Vaccination: No Hx Influenza Vaccination: Yes Hx Pneumococcal Vaccination: Yes Review Of Systems Constitutional: Positive for: Chills. Negative for: Fever Respiratory: Positive for: Cough. Negative for: Sputum Gastrointestinal: Positive for: Nausea, Vomiting, Abdominal Pain Musculoskeletal: Positive for: Back Pain Physical Exam - Physical Exam Appears: Well, Other (alert and awake, moderately ill) Skin: Normal Color, Warm, Dry, No Cyanotic, Other (anicteric; no skin breakdown) Head: Atraumatic, Normacephalic Eye(s): bilateral: Normal Inspection Oral Mucosa: Moist Chest: Symmetrical Cardiovascular: Rhythm Regular, No Murmur Respiratory: Rales (right base/mid lung field) Gastrointestinal/Abdominal: Bowel Sounds (positive in all 4 quadrants), Soft, Tenderness (subjective tenderness in epigastric and RUQ), Distention ( moderately ), No Guarding Back: Muscle Spasm (trapezius muscle of right upper quarter backer to palpation and spasmic) Extremity: No Pedal Edema, No Swelling Pulses: Left Dorsalis Pedis: Normal, Right Dorsalis Pedis: Normal DTR: Bicep (R): 2+, Bicep (L): 2+, Tricep (R): 2+, Tricep (L): 2+, Knee (R): 2+ , Knee (L): 2+, Ankle (R): 2+, Ankle (L): 2+ Neurological/Psych: Oriented x3, Normal Speech, Normal Cognition ED Course And Treatment - Laboratory Results Result Diagrams: 07/22/17 20:57 07/22/17 20:57 O2 Sat by Pulse Oximetry: 99 (room air) Pulse Ox Interpretation: Normal - Radiology CXR: Interpreted by Me, Viewed By Me CXR Interpretation: Yes: No Acute Disease, Cardiomegaly (cardiac silhouette borderline englarged) - CT Scan/US No standard instances Other Rad Studies (CT/US): Interpreted By Me, Read By Radiologist, Radiology Report Reviewed Medical Decision Making Medical Decision Making: Plan: Blood work, CXR, and abdomen US ordered. Morphine, Zofran, and IV fluids administered. Impressions: 71 y/o with intractable vomiting, dehydration with worsening renal function, will admit pt for observation and hydration to care of Disposition - Disposition Disposition: HOSPITALIZED - Clinical Impression Clinical Impression: Vomiting - Scribe Statement The provider has reviewed the documentation as recorded by the Scribe Nicole Amos All medical record entries made by the Scribe were at my direction and personally dictated by me. I have reviewed the chart and agree that the record accurately reflects my personal performance of the history, physical exam, medical decision making, and the department course for this patient. I have also personally directed, reviewed, and agree with the discharge instructions and disposition. Provider Attestation: All medical record entries made by the Scribe were at my direction and personally dictated by me. I have reviewed the chart and agree that the record accurately reflects my personal performance of the history, physical exam, medical decision making, and the department course for this patient. I have also personally directed, reviewed, and agree with the discharge instructions and disposition.
[2017-07-22 21:05] LABS: BASO # 0.1 K/uL (0.0-0.2); BASO % 0.9 % (0.0-2.0); EOS # 0.4 K/uL (0.0-0.7); EOS % 2.9 % (0.0-4.0); HEMATOCRIT 34.6 % (34.0-47.0); LYMPH # 2.5 K/uL (1.0-4.3); LYMPH % 19.1 % (20.0-40.0); MEAN CORPUSCULAR HEMOGLOBIN 25.7 pg (27.0-31.0); MEAN CORPUSCULAR HGB CONC 32.1 g/dL (33.0-37.0); MEAN PLATELET VOLUME 8.4 fL (7.2-11.7); MONO # 1.3 K/uL (0.0-0.8); MONO % 9.9 % (0.0-10.0); RED CELL DISTRIBUTION WIDTH 13.7 % (11.5-14.5); WHITE BLOOD COUNT 12.9 K/uL (4.8-10.8)
[2017-07-22 21:25] LABS: POTASSIUM 4.4 mmol/L (3.6-5.2)
[2017-07-22 21:27] LABS: ALB/GLOB RATIO 0.9 (1.0-2.1); BILIRUBIN,TOTAL 0.6 mg/dL (0.2-1.3); TOTAL PROTEIN 7.9 g/dL (6.3-8.3)
[2017-07-22 21:28] LABS: CALCIUM 8.7 mg/dl (8.6-10.4)
[2017-07-22 21:51] LABS: TROPONIN I 0.015 ng/mL (0.00-0.120)
--- NOTE | 2017-07-23 00:41 | US ---
EXAM: US Abdomen Limited, Right Upper Quadrant CLINICAL HISTORY: 71 years old, female; Pain; Abdominal pain; Epigastric; Additional info: Abd pain TECHNIQUE: Real-time ultrasound of the right upper quadrant with image documentation. COMPARISON: US - RENAL 2015-10-16 15:24 FINDINGS: Liver: Increased in echogenicity but unremarkable in size measuring 13 cm in longitudinal dimension. No mass. No intrahepatic bile duct dilation. Gallbladder: No acute findings. No gallstones. Common bile duct: No stones. No dilation, measuring 4 mm. Pancreas: Visualization of the pancreas is limited by overlying bowel gas. Right kidney: No acute findings. No obstructing stones. No solid mass. No hydronephrosis. IMPRESSION: Fatty infiltration of the liver. Limited evaluation of the pancreas, secondary to overlying bowel gas. Otherwise, unremarkable sonographic evaluation of the right upper quadrant, as detailed above.
--- NOTE | 2017-07-23 01:27 | CT ---
EXAM: CT Abdomen and Pelvis Without Intravenous Contrast CLINICAL HISTORY: 71 years old, female; Pain; Abdominal pain; Generalized; Additional info: Abd pain TECHNIQUE: Axial computed tomography images of the abdomen and pelvis without intravenous contrast. All CT scans at this facility use one or more dose reduction techniques, viz.: automated exposure control; ma/kV adjustment per patient size (including targeted exams where dose is matched to indication; i.e. head); or iterative reconstruction technique. Coronal and sagittal reformatted images were created and reviewed. COMPARISON: CT - ABD PELVIS W/O PO OR IV CONT 2015-10-11 15:04 FINDINGS: Lower thorax: Bibasilar atelectasis, unchanged in the. ABDOMEN: Liver: No acute findings Gallbladder and bile ducts: No acute finding. No calcified stones. No intra-extrahepatic biliary ductal dilation. Pancreas: Limited evaluation secondary to the lack of intravenous contrast. Spleen: No acute findings. Adrenals: No acute findings. Kidneys and ureters: No obstructing stones. No hydronephrosis. Moderate left-sided perinephric inflammatory change increased from 10/11/2015. PELVIS: Bladder: No acute findings. Reproductive: No acute findings. Appendix: The appendix is of normal caliber (series 3, image 134). ABDOMEN and PELVIS: Stomach and bowel: Colonic diverticulosis, without inflammation. Peritoneum: No acute findings. Lymph nodes: Minimally enlarged lymph nodes within the retroperitoneum, left greater than right . Vasculature: No aortic aneurysm. Densely calcified atherosclerotic disease. Bones: No acute fracture. IMPRESSION: Left-sided perinephric inflammation (without ureteral obstruction) along with retroperitoneal lymphadenopathy. Dedicated ultrasound (of the left kidney) is suggested for further evaluation.
[2017-07-23] MEDS: Sodium Chloride 0.45% 1,000 ML IV SCH ×2 (02:35→14:27)
[2017-07-23] MEDS: Levothyroxine 25 MCG TAB PO SCH (06:10)
[2017-07-23] MEDS: (Novolog) Insulin Aspart, Recombinant 100 u/ml 10 ml vial SC SCH ×2 (08:25→21:52)
[2017-07-23] MEDS ORDERED: Home Med 1 UNIT (Simvastatin [Simvastatin] 10 MG) PO SCH (10:00)
--- NOTE | 2017-07-23 12:07 | RAD ---
PROCEDURE: CHEST RADIOGRAPH, 1 VIEW HISTORY: Abdominal pain COMPARISON: Comparison made with chest radiograph and CT scan chest dated 11/25/2016 hand 04/20/2016 respectively FINDINGS: LUNGS: Poor inspiration with low lung volumes, crowded bronchovascular markings and mild bibasilar atelectasis. PLEURA: No pneumothorax or pleural fluid seen. CARDIOVASCULAR: Cardiomegaly. OSSEOUS STRUCTURES: Mild multilevel degenerative spondylosis of the thoracic spine. Degenerative changes both shoulder girdles. VISUALIZED UPPER ABDOMEN: Normal. OTHER FINDINGS: None. IMPRESSION: Poor inspiration with low lung volumes, crowded bronchovascular markings and mild bibasilar atelectasis.
[2017-07-23 14:55] LABS: RBC URINE 8 /hpf (0-3); URINE BACTERIA MANY (<OCC); URINE BILIRUBIN NEGATIVE (NEGATIVE); URINE BLOOD 1+ (NEGATIVE); URINE COLOR Yellow (YELLOW); URINE GLUCOSE (UA) NORMAL (Normal); URINE KETONE NEGATIVE (NEGATIVE); URINE LEUKOCYTE ESTERASE 3+ Leu/uL (Negative); URINE PROTEIN 3+ mg/dL (NEGATIVE); URINE UROBILINOGEN NORMAL mg/dL (0.2-1.0); WBC CLUMPS FEW /hpf; WBC URINE 243 /hpf (0-5)
--- NOTE | 2017-07-23 20:59 | CP.PCM.HP ---
History of Present Illness - History of Present Illness History of Present Illness: Cheif complain: upper abdominal pain associated with nausea/vomitting x 5 days HPI: Patient is a 71 y/o female, with a PMHx of insulin-dependent DM, CAD s/p 2 stents, HTN, Hyperlipidemia, morbidly obese who presents to the ED with complaints of intermittent epigastric and RUQ pain associated with vomiting for the last 5 days. Patient describes pain as burning that worsens with deep inspirations and radiates to the back. Patient notes unproductive cough and admits vomiting approximately twice a day, unprovoked by eating or drinking. Denies fever or any PMHx of gallbladder issues, reflux, or appendectomy. Admits to PSHx of hysterectomy and coronary stent. Patient reports taking Tylenol to try to alleviate pain. No other physical complaints at this time. Present on Admission - Present on Admission Any Indicators Present on Admission: Yes Review of Systems - Review of Systems Systems not reviewed;Unavailable: Acuity of Condition - Constitutional Constitutional: Chills, Fatigue, Fever, Lethargy. absent: As Per HPI, Anorexia , Daytime Sleepiness, Excessive Sweating, Frequent Falls, Headache, Increased Appetite, Malaise, Night Sweats, Snoring, Sleep Apnea, Weight Gain, Weight Loss , Weakness, Other - EENT Eyes: absent: As Per HPI, Blind Spots, Blurred Vision, Change in Vision, Decreased Night Vision, Diplopia, Discharge, Dry Eye, Exophthalmos, Floaters, Irritation, Itchy Eyes, Loss of Peripheral Vision, Pain, Photophobia, Requires Corrective Lenses, Sees Flashes, Spots in Vision, Tunnel Vision, Other Visual Disturbances, Loss of Vision, Other Nose/Mouth/Throat: absent: As Per HPI, Epistaxis, Nasal Congestion, Nasal Discharge, Nasal Obstruction, Nasal Trauma, Nose Pain, Post Nasal Drip, Sinus Pain, Sinus Pressure, Bleeding Gums, Change in Voice, Dental Pain, Dry Mouth, Dysphagia, Halitosis, Hoarsness, Lip Swelling, Mouth Lesions, Mouth Pain, Odynophagia, Sore Throat, Throat Swelling, Tongue Swelling, Facial Pain, Neck Pain, Neck Mass, Other - Cardiovascular Cardiovascular: absent: As Per HPI, Acrocyanosis, Chest Pain, Chest Pain at Rest , Chest Pain with Activity, Claudication, Diaphoresis, Dyspnea, Dyspnea on Exertion, Edema, Irregular Heart Rhythm, Pain Radiating to Arm/Neck/Jaw, Leg Edema, Leg Ulcers, Lightheadedness, Orthopnea, Palpitations, Paroxysmal Nocturnal Dyspnea, Pedal Edema, Radiating Pain, Rapid Heart Rate, Slow Heart Rate, Syncope, Other - Respiratory Respiratory: absent: As Per HPI, Cough, Dyspnea, Hemoptysis, Dyspnea on Exertion , Wheezing, Snoring, Stridor, Pain on Inspiration, Chest Congestion, Excessive Mucous Production, Change in Mucous Color, Pain with Coughing, Other - Gastrointestinal Gastrointestinal: Abdominal Pain, Nausea, Vomiting. absent: As Per HPI, Belching, Bloating, Change in Bowel Habits, Change in Stool Character, Coffee Ground Emesis, Constipation, Cramping, Diarrhea, Dyspepsia, Dysphagia, Early Satiety, Excessive Flatus, Fecal Incontinence, Heartburn, Hematemesis, Hematochezia, Loose Stools, Melena, Odynophagia, Temesmus, Other - Genitourinary Genitourinary: absent: As Per HPI, Change in Urinary Stream, Difficulty Urinating, Dysuria, Flank Pain, Hematuria, Pyuria, Nocturia, Urinary Incontinence, Urinary Frequency, Urinary Hesitance, Urinary Urgency, Voiding Freq/Small Amts, Freq UTI, Hx Renal/Bladder Calculi, Hx /Renal Surgery, Bladder Distension, Other - Musculoskeletal Musculoskeletal: absent: As Per HPI, Abnormal Gait, Arthralgias, Atrophy, Back Pain, Deformity, Joint Swelling, Limited Range of Motion, Loss of Height, Muscle Cramps, Muscle Weakness, Myalgias, Neck Pain, Numbness, Radiating Pain into Limb, Stiffness, Tingling, Other - Integumentary Integumentary: absent: As Per HPI, Acne, Alopecia, Bleeding Lesions, Change in Hair, Change in Nails, Change in Pigmentation, Changing Lesions, Dry Skin, Erythema, Furuncle, Hirsutism, Lesions, New Lesions, Non-Healing Lesions, Photosensitivity, Pruritus, Rash, Skin Pain, Skin Ulcer, Sores, Striae, Swelling , Unusual Bruising, Wounds, Jaundice, Other - Neurological Neurological: absent: As Per HPI, Abnormal Gait, Abnormal Hearing, Abnormal Movements, Abnormal Speech, Behavioral Changes, Burning Sensations, Confusion, Convulsions, Disequilibrium, Dizziness, Numbness, Focal Weakness, Frequent Falls , Headaches, Lack of Coordination, Loss of Vision, Memory Loss, Paresthesias, Radicular Pain, Restless Legs, Sensory Deficit, Syncope, Tingling, Tremor, Vertigo, Weakness, Other Visual Disturbances, Other Past Patient History - Infectious Disease Hx of Infectious Diseases: None - Past Medical History & Family History Past Medical History?: Yes - Past Social History Smoking Status: Never Smoked - CARDIAC Hx Hypercholesterolemia: Yes Hx Hypertension: Yes - PULMONARY Hx Respiratory Disorders: No - NEUROLOGICAL Hx Neurological Disorder: No - HEENT Hx HEENT Problems: Yes Other/Comment: left eye drooping-blurry due to DM - RENAL Hx Chronic Kidney Disease: Yes - ENDOCRINE/METABOLIC Hx Endocrine Disorders: Yes Hx Diabetes Mellitus Type 2: Yes - HEMATOLOGICAL/ONCOLOGICAL Hx Blood Disorders: No - INTEGUMENTARY Hx Dermatological Problems: No - MUSCULOSKELETAL/RHEUMATOLOGICAL Hx Musculoskeletal Disorders: No Hx Falls: Yes - GASTROINTESTINAL Hx Gastrointestinal Disorders: No - GENITOURINARY/GYNECOLOGICAL Hx Genitourinary Disorders: No - PSYCHIATRIC Hx Substance Use: No - SURGICAL HISTORY Hx Coronary Stent: Yes (10/2015) - ANESTHESIA Hx Anesthesia: Yes Hx Anesthesia Reactions: No Hx Malignant Hyperthermia: No Meds Allergies/Adverse Reactions: Allergies Allergy/AdvReac Type Severity Reaction Status Date / Time No Known Allergies Allergy Verified 02/25/17 12:08 Physical Exam - Constitutional Appears: No Acute Distress - Head Exam Head Exam: ATRAUMATIC, NORMAL INSPECTION, NORMOCEPHALIC - Eye Exam Eye Exam: EOMI, Normal appearance, PERRL Pupil Exam: NORMAL ACCOMODATION, PERRL - ENT Exam ENT Exam: Mucous Membranes Moist, Normal Exam - Respiratory Exam Respiratory Exam: Clear to Auscultation Bilateral, NORMAL BREATHING PATTERN - Cardiovascular Exam Cardiovascular Exam: REGULAR RHYTHM - GI/Abdominal Exam GI & Abdominal Exam: Hyperactive Bowel Sounds, Soft, Tenderness Additional comments: epigastric tenderness - Psychiatric Exam Psychiatric exam: Normal Affect, Normal Mood - Skin Skin Exam: Dry, Intact, Normal Color, Warm Additional comments: skin senile turgor Results - Vital Signs Recent Vital Signs: Last Vital Signs Temp 98.6 F 07/23/17 16:00 Pulse 70 07/23/17 16:00 Resp 20 07/23/17 16:00 BP 161/73 H 07/23/17 16:00 Pulse Ox 96 07/23/17 16:00 - Labs Result Diagrams: 07/22/17 20:57 07/22/17 20:57 Labs: Laboratory Results - last 24 hr 07/22/17 07/22/17 07/23/17 20:57 20:57 02:10 WBC 12.9 H RBC 4.32 Hgb 11.1 Hct 34.6 MCV 80.0 L MCH 25.7 L MCHC 32.1 L RDW 13.7 Plt Count 311 MPV 8.4 Neut % (Auto) 67.2 Lymph % (Auto) 19.1 L [place] % (Auto) 9.9 Eos % (Auto) 2.9 Baso % (Auto) 0.9 Neut # 8.7 H Lymph # 2.5 [place] # 1.3 H Eos # 0.4 Baso # 0.1 Sodium 128 L Potassium 4.4 Chloride 93 L Carbon Dioxide 24 Anion Gap 16 BUN 53 H Creatinine 3.1 H Est GFR ( Amer) 18 Est GFR (Non-Af Amer) 15 POC Glucose (mg/dL) 123 H Random Glucose 79 Calcium 8.7 Total Bilirubin 0.6 AST 17 ALT 14 Alkaline Phosphatase 90 Troponin I 0.0150 NT-Pro-B Natriuret Pep 1810 H Total Protein 7.9 Albumin 3.7 Globulin 4.1 H Albumin/Globulin Ratio 0.9 L Lipase 109 Urine Color Urine Clarity Urine pH Ur Specific [place] Urine Protein Urine Glucose (UA) Urine Ketones Urine Blood Urine Nitrate Urine Bilirubin Urine Urobilinogen Ur Leukocyte Esterase Urine WBC (Auto) Urine RBC (Auto) Urine WBC Clumps (Auto) Ur Squamous Epith Cells Urine Bacteria 07/23/17 07/23/17 07/23/17 07:20 11:07 14:42 WBC RBC Hgb Hct MCV MCH MCHC RDW Plt Count MPV Neut % (Auto) Lymph % (Auto) [place] % (Auto) Eos % (Auto) Baso % (Auto) Neut # Lymph # [place] # Eos # Baso # Sodium Potassium Chloride Carbon Dioxide Anion Gap BUN Creatinine Est GFR ( Amer) Est GFR (Non-Af Amer) POC Glucose (mg/dL) 152 H 203 H Random Glucose Calcium Total Bilirubin AST ALT Alkaline Phosphatase Troponin I NT-Pro-B Natriuret Pep Total Protein Albumin Globulin Albumin/Globulin Ratio Lipase Urine Color Yellow Urine Clarity Hazy Urine pH 5.0 Ur Specific [place] 1.009 Urine Protein 3+ H Urine Glucose (UA) Normal Urine Ketones Negative Urine Blood 1+ H Urine Nitrate Negative Urine Bilirubin Negative Urine Urobilinogen Normal Ur Leukocyte Esterase 3+ H Urine WBC (Auto) 243 H Urine RBC (Auto) 8 H Urine WBC Clumps (Auto) Few H Ur Squamous Epith Cells 4 Urine Bacteria Many H 07/23/17 16:20 WBC RBC Hgb Hct MCV MCH MCHC RDW Plt Count MPV Neut % (Auto) Lymph % (Auto) [place] % (Auto) Eos % (Auto) Baso % (Auto) Neut # Lymph # [place] # Eos # Baso # Sodium Potassium Chloride Carbon Dioxide Anion Gap BUN Creatinine Est GFR ( Amer) Est GFR (Non-Af Amer) POC Glucose (mg/dL) 321 H Random Glucose Calcium Total Bilirubin AST ALT Alkaline Phosphatase Troponin I NT-Pro-B Natriuret Pep Total Protein Albumin Globulin Albumin/Globulin Ratio Lipase Urine Color Urine Clarity Urine pH Ur Specific [place] Urine Protein Urine Glucose (UA) Urine Ketones Urine Blood Urine Nitrate Urine Bilirubin Urine Urobilinogen Ur Leukocyte Esterase Urine WBC (Auto) Urine RBC (Auto) Urine WBC Clumps (Auto) Ur Squamous Epith Cells Urine Bacteria Assessment & Plan (1) Vomiting Status: Acute (2) Abdominal pain in female patient Status: Acute (3) CAD (coronary artery disease) Status: Acute (4) Diabetes Status: Acute (5) Hypertension Status: Acute
[2017-07-23] MEDS: Rosuvastatin Calcium 2.5 mg Tab PO SCH (21:53)
[2017-07-24] MEDS: Sodium Chloride 0.45% 1,000 ML IV SCH ×3 (05:21→21:33)
[2017-07-24] MEDS: Levothyroxine 25 MCG TAB PO SCH (05:30)
[2017-07-24] MEDS: (Novolog) Insulin Aspart, Recombinant 100 u/ml 10 ml vial SC SCH ×2 (08:03→21:28)
[2017-07-24 08:59] VITALS: RESP 20
[2017-07-24] MEDS: Rosuvastatin Calcium 2.5 mg Tab PO SCH (21:27)
[2017-07-24] MEDS: (Lantus) Insulin Glargine, Recombinant SC SCH (21:28)
--- NOTE | 2017-07-24 22:32 | CP.PCM.PN ---
Subjective - Date & Time of Evaluation Date of Evaluation: 07/24/17 Time of Evaluation: 22:32 - Subjective Subjective: Patient admitted to the hospital with abdominal pain. Also not feeling well. Weakness tiredness. Easy fatigability Patient is a 71-year-old female with a history of diabetes hypertension hypercholesterolemia CAD stent. 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 Currently stable. Glucose control On examination: Vital signs stable. Chest good air entry regular heart sounds nontender abdomen. Edema Assessment and recommended 71-year-old female admitted with abdominal pain. Urinary tract infection cannot be ruled out. We'll start the patient on antibiotic. Will discontinue the IV fluid. Close monitoring. Objective - Vital Signs/Intake and Output Vital Signs (last 24 hours): Temp Pulse Resp BP Pulse Ox 98.2 F 63 20 163/70 H 96 07/24/17 16:00 07/24/17 16:00 07/24/17 16:00 07/24/17 16:00 07/24/17 16:00 - Medications Medications: Current Medications Aspirin (Ecotrin) 81 mg PO DAILY [facility] Last Admin: 07/24/17 10:11 Dose: 81 mg Carvedilol (Coreg) 3.125 mg PO BID [facility] Last Admin: 07/24/17 21:27 Dose: 3.125 mg Docusate Sodium (Colace) 100 mg PO BID [facility] Last Admin: 07/24/17 17:02 Dose: 100 mg Heparin Sodium (Porcine) (Heparin) 5,000 units SC Q8 [facility] Last Admin: 07/24/17 21:27 Dose: 5,000 units Sodium Chloride (Sodium Chloride 0.45%) 1,000 mls @ 80 mls/hr IV .[id number] [facility] Last Admin: 07/24/17 21:33 Dose: 80 mls/hr Insulin Aspart (Novolog) 0 unit SC ACBHS [facility] PRN Reason: Protocol Last Admin: 07/24/17 21:28 Dose: Not Given Insulin Glargine (Lantus) 30 unit SC HS [facility] Last Admin: 07/24/17 21:28 Dose: 30 units Isosorbide Mononitrate (Imdur) 60 mg PO DAILY [facility] Last Admin: 07/24/17 10:11 Dose: 60 mg Levothyroxine Sodium (Synthroid) 25 mcg PO DAILY@0630 [facility] Last Admin: 07/24/17 05:30 Dose: 25 mcg Losartan Potassium (Cozaar) 50 mg PO DAILY [facility] Last Admin: 07/24/17 10:11 Dose: 50 mg Ondansetron HCl (Zofran Inj) 4 mg IVP Q6 PRN PRN Reason: Nausea/Vomiting Pantoprazole Sodium (Protonix Inj) 40 mg IVP DAILY [facility] Last Admin: 07/24/17 10:11 Dose: 40 mg Rosuvastatin Calcium (Crestor) 2.5 mg PO HS [facility] Last Admin: 07/24/17 21:27 Dose: 2.5 mg - Labs Labs: 07/22/17 20:57 07/22/17 20:57
[2017-07-24] MEDS: Ciprofloxacin 200mg/100ml D5W 100 ML IVPB SCH (23:32)
[2017-07-25] MEDS: Levothyroxine 25 MCG TAB PO SCH (06:12)
[2017-07-25 08:17] LABS: BASO # 0.1 K/uL (0.0-0.2); BASO % 0.9 % (0.0-2.0); EOS # 0.6 K/uL (0.0-0.7); EOS % 9.2 % (0.0-4.0); HEMATOCRIT 32.6 % (34.0-47.0); LYMPH # 1.9 K/uL (1.0-4.3); LYMPH % 28.9 % (20.0-40.0); MEAN CELL VOLUME 79.8 fL (81.0-99.0); MEAN CORPUSCULAR HEMOGLOBIN 26.1 pg (27.0-31.0); MEAN CORPUSCULAR HGB CONC 32.7 g/dL (33.0-37.0); MEAN PLATELET VOLUME 8.9 fL (7.2-11.7); MONO # 0.9 K/uL (0.0-0.8); MONO % 13.5 % (0.0-10.0); NRBC % 0.1 % (0.0-2.0); RED CELL DISTRIBUTION WIDTH 13.3 % (11.5-14.5); WHITE BLOOD COUNT 6.7 K/uL (4.8-10.8)
[2017-07-25 08:38] LABS: POTASSIUM 4.3 mmol/L (3.6-5.2)
[2017-07-25 08:40] LABS: ALB/GLOB RATIO 0.9 (1.0-2.1); BILIRUBIN,TOTAL 0.3 mg/dL (0.2-1.3); TOTAL PROTEIN 6.9 g/dL (6.3-8.3)
[2017-07-25 08:41] LABS: CALCIUM 8.6 mg/dl (8.6-10.4); MAGNESIUM 1.8 mg/dL (1.6-2.3)
[2017-07-25] MEDS: (Novolog) Insulin Aspart, Recombinant 100 u/ml 10 ml vial SC SCH ×2 (08:53→22:04)
[2017-07-25] MEDS ORDERED: Influenza Vaccine 60 mcg/0.5 mL SYR (4YR UP) IM ONE (10:00)
[2017-07-25] MEDS: Ciprofloxacin 200mg/100ml D5W 100 ML IVPB SCH ×2 (10:36→22:22)
[2017-07-25 11:29] LABS: URINE BACTERIA FEW (<OCC); URINE BILIRUBIN NEGATIVE (NEGATIVE); URINE BLOOD 1+ (NEGATIVE); URINE COLOR Straw (YELLOW); URINE GLUCOSE (UA) 3+ mg/dL (Normal); URINE KETONE NEGATIVE (NEGATIVE); URINE LEUKOCYTE ESTERASE 3+ Leu/uL (Negative); URINE PROTEIN 2+ mg/dL (NEGATIVE); URINE UROBILINOGEN NORMAL mg/dL (0.2-1.0); WBC URINE 12 /hpf (0-5)
[2017-07-25 11:31] LABS: RBC URINE 3 /hpf (0-3)
--- NOTE | 2017-07-25 18:12 | CP.PCM.PN ---
Subjective - Date & Time of Evaluation Date of Evaluation: 07/25/17 Time of Evaluation: 18:12 - Subjective Subjective: Patient now complaining of some headache. Tylenol. Also combining of some chest discomfort. Cough and wheezing and shortness of breath noted. Abdominal pain is better. eat slightly better than yesterday. Urine is clearing at this time. Vital signs stable. Chest good air entry bilaterally regular heart sound. Nontender abdomen. Labs reviewed. Will continue to monitor. Iliotibial and creatinine noted. We will get the nephrology evaluation. CT of the head advised to given the's recent surgery. On ciprofloxacin. Urine culture and will follow the patient Objective - Vital Signs/Intake and Output Vital Signs (last 24 hours): Temp Pulse Resp BP Pulse Ox 99.5 F 64 20 153/68 H 99 07/25/17 15:00 07/25/17 16:19 07/25/17 15:00 07/25/17 15:00 07/25/17 16:19 Intake and Output: 07/25/17 07/25/17 06:59 18:59 Intake Total 1070 Balance 1070 - Medications Medications: Current Medications Acetaminophen (Tylenol 325mg Tab) 650 mg PO Q6 PRN PRN Reason: Headache Last Admin: 07/25/17 16:47 Dose: 650 mg Aspirin (Ecotrin) 81 mg PO DAILY [facility] Last Admin: 07/25/17 10:33 Dose: Not Given Carvedilol (Coreg) 3.125 mg PO BID [facility] Last Admin: 07/25/17 17:32 Dose: 3.125 mg Docusate Sodium (Colace) 100 mg PO BID [facility] Last Admin: 07/25/17 17:32 Dose: Not Given Docusate Sodium (Colace) 100 mg PO BID [facility] Last Admin: 07/25/17 17:32 Dose: 100 mg Heparin Sodium (Porcine) (Heparin) 5,000 units SC Q8 [facility] Last Admin: 07/25/17 14:17 Dose: 5,000 units Ciprofloxacin (Cipro 200mg/100ml D5w) 100 mls @ 67 mls/hr IVPB Q12H [facility] Last Admin: 07/25/17 10:36 Dose: 67 mls/hr Insulin Aspart (Novolog) 0 unit SC [facility] PRN Reason: Protocol Last Admin: 07/25/17 08:53 Dose: 1 unit Insulin Glargine (Lantus) 30 unit SC [facility] Last Admin: 07/24/17 21:28 Dose: 30 units Isosorbide Mononitrate (Imdur) 60 mg PO DAILY [facility] Last Admin: 07/25/17 10:33 Dose: Not Given Levothyroxine Sodium (Synthroid) 25 mcg PO DAILY@0630 [facility] Last Admin: 07/25/17 06:12 Dose: 25 mcg Losartan Potassium (Cozaar) 50 mg PO Q12 [facility] Last Admin: 07/25/17 10:35 Dose: 50 mg Ondansetron HCl (Zofran Inj) 4 mg IVP Q6 PRN PRN Reason: Nausea/Vomiting Pantoprazole Sodium (Protonix Inj) 40 mg IVP DAILY [facility] Last Admin: 07/25/17 10:33 Dose: Not Given Rosuvastatin Calcium (Crestor) 2.5 mg PO HS [facility] Last Admin: 07/24/17 21:27 Dose: 2.5 mg - Labs Labs: 07/25/17 07:37 07/25/17 07:37
[2017-07-25] MEDS: Rosuvastatin Calcium 2.5 mg Tab PO SCH (22:23)
[2017-07-25] MEDS: (Lantus) Insulin Glargine, Recombinant SC SCH (22:28)
[2017-07-26] MEDS: Levothyroxine 25 MCG TAB PO SCH (05:30)
[2017-07-26] MEDS: (Novolog) Insulin Aspart, Recombinant 100 u/ml 10 ml vial SC SCH ×2 (08:00→22:06)
[2017-07-26] MEDS: Ciprofloxacin 200mg/100ml D5W 100 ML IVPB SCH ×2 (10:42→22:03)
--- NOTE | 2017-07-26 13:17 | CP.PCM.CON ---
History of Present Illness - History of Present Illness History of Present Illness: Patient admitted to the hospital with abdominal pain. Had 5 days of nausea , vomiting c/o SMALL, Known severe CKD hx Previous US showed echogenic small left kidney Patient is a 71-year-old female with a history of diabetes hypertension hypercholesterolemia CAD stent. 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 PMH: CKD 4 HTN DM 2 PROTEINURIA DLCAD PITUITARY GLAND ADENOMA PSH: CARDIAC STENT PITUITARY GLAND SURGERY Review of Systems - Constitutional Constitutional: Fatigue, Lethargy, Weakness - EENT Eyes: Blurred Vision Ears: absent: As Per HPI, Decreased Hearing, Ear Discharge, Ear Pain, Tinnitus, Abnormal Hearing, Disequilibrium, Dizziness, Other Nose/Mouth/Throat: absent: As Per HPI, Epistaxis, Nasal Congestion, Nasal Discharge, Nasal Obstruction, Nasal Trauma, Nose Pain, Post Nasal Drip, Sinus Pain, Sinus Pressure, Bleeding Gums, Change in Voice, Dental Pain, Dry Mouth, Dysphagia, Halitosis, Hoarsness, Lip Swelling, Mouth Lesions, Mouth Pain, Odynophagia, Sore Throat, Throat Swelling, Tongue Swelling, Facial Pain, Neck Pain, Neck Mass, Other - Cardiovascular Cardiovascular: Dyspnea on Exertion, Leg Edema - Respiratory Respiratory: Cough, Dyspnea on Exertion - Gastrointestinal Gastrointestinal: As Per HPI - Genitourinary Genitourinary: Voiding Freq/Small Amts - Musculoskeletal Musculoskeletal: Muscle Weakness, Stiffness - Integumentary Integumentary: Dry Skin, Rash - Neurological Neurological: Disequilibrium, Headaches Past Patient History - Infectious Disease Hx of Infectious Diseases: None - Past Medical History & Family History Past Medical History?: Yes Past Family History: Reviewed and not pertinent - Past Social History Smoking Status: Never Smoked Chewing Tobacco Use: No Cigar Use: No Alcohol: None Drugs: Denies - CARDIAC Hx Hypercholesterolemia: Yes Hx Hypertension: Yes - PULMONARY Hx Respiratory Disorders: No - NEUROLOGICAL Hx Neurological Disorder: No Hx Dizziness: Yes - HEENT Hx HEENT Problems: Yes Other/Comment: left eye drooping-blurry due to DM - RENAL Hx Chronic Kidney Disease: Yes - ENDOCRINE/METABOLIC Hx Diabetes Mellitus Type 2: Yes - HEMATOLOGICAL/ONCOLOGICAL Hx Blood Disorders: No - INTEGUMENTARY Hx Dermatological Problems: No - MUSCULOSKELETAL/RHEUMATOLOGICAL Hx Musculoskeletal Disorders: No Hx Falls: Yes - GASTROINTESTINAL Hx Gastrointestinal Disorders: No - GENITOURINARY/GYNECOLOGICAL Hx Genitourinary Disorders: No - PSYCHIATRIC Hx Substance Use: No - SURGICAL HISTORY Hx Coronary Stent: Yes (10/2015) - ANESTHESIA Hx Anesthesia: Yes Hx Anesthesia Reactions: No Hx Malignant Hyperthermia: No Meds Allergies/Adverse Reactions: Allergies Allergy/AdvReac Type Severity Reaction Status Date / Time No Known Allergies Allergy Verified 02/25/17 12:08 - Medications Medications: Current Medications Acetaminophen (Tylenol 325mg Tab) 650 mg PO Q6 PRN PRN Reason: Headache Last Admin: 07/26/17 04:37 Dose: 650 mg Aspirin (Ecotrin) 81 mg PO DAILY [facility] Last Admin: 07/26/17 10:43 Dose: 81 mg Carvedilol (Coreg) 3.125 mg PO BID [facility] Last Admin: 07/26/17 10:43 Dose: 3.125 mg Docusate Sodium (Colace) 100 mg PO BID [facility] Last Admin: 07/26/17 10:43 Dose: 100 mg Heparin Sodium (Porcine) (Heparin) 5,000 units SC Q8 [facility] Last Admin: 07/26/17 13:09 Dose: 5,000 units Ciprofloxacin (Cipro 200mg/100ml D5w) 100 mls @ 67 mls/hr IVPB Q12H [facility] Last Admin: 07/26/17 10:42 Dose: 67 mls/hr Insulin Aspart (Novolog) 0 unit SC [facility] PRN Reason: Protocol Last Admin: 07/26/17 08:00 Dose: 2 unit Insulin Glargine (Lantus) 30 unit SC HS [facility] Last Admin: 07/25/17 22:28 Dose: 30 units Isosorbide Mononitrate (Imdur) 60 mg PO DAILY [facility] Last Admin: 07/26/17 10:50 Dose: 60 mg Levothyroxine Sodium (Synthroid) 25 mcg PO DAILY@0630 [facility] Last Admin: 07/26/17 05:30 Dose: 25 mcg Losartan Potassium (Cozaar) 50 mg PO Q12 [facility] Last Admin: 07/26/17 10:43 Dose: 50 mg Ondansetron HCl (Zofran Inj) 4 mg IVP Q6 PRN PRN Reason: Nausea/Vomiting Pantoprazole Sodium (Protonix Inj) 40 mg IVP DAILY [facility] Last Admin: 07/26/17 10:43 Dose: 40 mg Rosuvastatin Calcium (Crestor) 2.5 mg PO HS [facility] Last Admin: 07/25/17 22:23 Dose: 2.5 mg Physical Exam - Constitutional Appears: Non-toxic, Chronically Ill - Head Exam Head Exam: ATRAUMATIC, NORMAL INSPECTION - Eye Exam Eye Exam: EOMI - Neck Exam Neck exam: Positive for: Normal Inspection. Negative for: Tenderness - Respiratory Exam Respiratory Exam: Clear to Auscultation Bilateral, NORMAL BREATHING PATTERN - Cardiovascular Exam Cardiovascular Exam: REGULAR RHYTHM, +S1 - GI/Abdominal Exam GI & Abdominal Exam: Soft. absent: Tenderness - Extremities Exam Extremities exam: Positive for: normal inspection. Negative for: tenderness - Neurological Exam Neurological exam: CN II-XII Intact, Oriented x3 - Skin Skin Exam: Dry, Warm Results - Vital Signs Recent Vital Signs: Last Vital Signs Temp 99.8 F H 07/26/17 08:00 Pulse 74 07/26/17 08:00 Resp 20 07/26/17 08:00 BP 163/68 H 07/26/17 08:00 Pulse Ox 96 07/26/17 08:00 - Labs Result Diagrams: 07/25/17 07:37 07/25/17 07:37 Labs: Laboratory Results - last 24 hr 07/25/17 07/25/17 07/26/17 16:35 21:32 07:33 POC Glucose (mg/dL) 348 H 362 H 232 H 07/26/17 11:05 POC Glucose (mg/dL) 260 H Assessment & Plan (1) Type 2 diabetes mellitus with diabetic nephropathy Status: Acute (2) Chronic kidney disease, stage IV (severe) Status: Acute (3) Diabetic gastroparesis Status: Acute (4) Atrophy of left kidney Status: Acute (5) CAD (coronary artery disease) Status: Acute - Assessment and Plan (Free Text) Plan: QUANTIFY URINE PROTEIN EXCRETION RATE Serial chemistries check phos, PTH continue ARB agent
--- NOTE | 2017-07-26 14:19 | CT ---
PROCEDURE: CT HEAD WITHOUT CONTRAST. HISTORY: headache COMPARISON: 02/25/2017 TECHNIQUE: Axial computed tomography images were obtained through the head/brain without intravenous contrast. Radiation dose: Total exam DLP = 982.82 mGy-cm. This CT exam was performed using one or more of the following dose reduction techniques: Automated exposure control, adjustment of the mA and/or kV according to patient size, and/or use of iterative reconstruction technique. FINDINGS: HEMORRHAGE: No intracranial hemorrhage. BRAIN: No mass effect or edema. Mild diffuse age-appropriate cerebral atrophy. Mild to moderate chronic periventricular and deep white matter ischemic change. No evidence of acute infarct. VENTRICLES: Unremarkable. No hydrocephalus. CALVARIUM: Unremarkable. PARANASAL SINUSES: Minimal chronic ethmoid sinusitis. MASTOID AIR CELLS: Unremarkable as visualized. No inflammatory changes. OTHER FINDINGS: None. IMPRESSION: No intracranial mass, hemorrhage or evidence of acute infarct. Minimal chronic ethmoid sinusitis. Age-appropriate involutional changes.
[2017-07-26] MEDS: Rosuvastatin Calcium 2.5 mg Tab PO SCH (22:03)
[2017-07-26] MEDS: (Lantus) Insulin Glargine, Recombinant SC SCH (22:04)
--- NOTE | 2017-07-27 01:36 | CP.PCM.PN ---
Subjective - Date & Time of Evaluation Date of Evaluation: 07/26/17 Time of Evaluation: 19:00 Objective - Vital Signs/Intake and Output Vital Signs (last 24 hours): Temp Pulse Resp BP Pulse Ox 99.8 F H 64 20 169/81 H 96 07/27/17 00:28 07/27/17 00:28 07/27/17 00:28 07/27/17 00:28 07/27/17 00:28 Intake and Output: 07/26/17 07/27/17 18:59 06:59 Intake Total 400 Balance 400 - Medications Medications: Current Medications Acetaminophen (Tylenol 325mg Tab) 650 mg PO Q6 PRN PRN Reason: Headache Last Admin: 07/26/17 04:37 Dose: 650 mg Aspirin (Ecotrin) 81 mg PO DAILY [facility] Last Admin: 07/26/17 10:43 Dose: 81 mg Carvedilol (Coreg) 3.125 mg PO BID [facility] Last Admin: 07/26/17 17:03 Dose: 3.125 mg Docusate Sodium (Colace) 100 mg PO BID [facility] Last Admin: 07/26/17 17:03 Dose: 100 mg Heparin Sodium (Porcine) (Heparin) 5,000 units SC Q8 [facility] Last Admin: 07/26/17 22:04 Dose: 5,000 units Ciprofloxacin (Cipro 200mg/100ml D5w) 100 mls @ 67 mls/hr IVPB Q12H [facility] Last Admin: 07/26/17 22:03 Dose: 67 mls/hr Insulin Aspart (Novolog) 0 unit SC [facility] PRN Reason: Protocol Last Admin: 07/26/17 22:06 Dose: Not Given Insulin Glargine (Lantus) 30 unit SC HS [facility] Last Admin: 07/26/17 22:04 Dose: 30 units Isosorbide Mononitrate (Imdur) 60 mg PO DAILY [facility] Last Admin: 07/26/17 10:50 Dose: 60 mg Levothyroxine Sodium (Synthroid) 25 mcg PO DAILY@0630 [facility] Last Admin: 07/26/17 05:30 Dose: 25 mcg Losartan Potassium (Cozaar) 50 mg PO Q12 [facility] Last Admin: 07/26/17 22:03 Dose: 50 mg Ondansetron HCl (Zofran Inj) 4 mg IVP Q6 PRN PRN Reason: Nausea/Vomiting Pantoprazole Sodium (Protonix Inj) 40 mg IVP DAILY [facility] Last Admin: 07/26/17 10:43 Dose: 40 mg Rosuvastatin Calcium (Crestor) 2.5 mg PO HS [facility] Last Admin: 07/26/17 22:03 Dose: 2.5 mg - Labs Labs: 07/25/17 07:37 07/25/17 07:37
[2017-07-27] MEDS: Levothyroxine 25 MCG TAB PO SCH (06:35)
[2017-07-27 07:41] LABS: BASO # 0.1 K/uL (0.0-0.2); BASO % 0.7 % (0.0-2.0); EOS # 0.8 K/uL (0.0-0.7); EOS % 8.5 % (0.0-4.0); HEMATOCRIT 30.2 % (34.0-47.0); LYMPH # 2.6 K/uL (1.0-4.3); LYMPH % 27.7 % (20.0-40.0); MEAN CELL VOLUME 79.2 fL (81.0-99.0); MEAN CORPUSCULAR HEMOGLOBIN 26.2 pg (27.0-31.0); MEAN PLATELET VOLUME 9.1 fL (7.2-11.7); MONO # 1.1 K/uL (0.0-0.8); MONO % 11.4 % (0.0-10.0); RED CELL DISTRIBUTION WIDTH 13.6 % (11.5-14.5); WHITE BLOOD COUNT 9.3 K/uL (4.8-10.8)
[2017-07-27 08:11] LABS: POTASSIUM 4.4 mmol/L (3.6-5.2)
[2017-07-27 08:13] LABS: BILIRUBIN,TOTAL 0.4 mg/dL (0.2-1.3)
[2017-07-27 08:14] LABS: ALB/GLOB RATIO 1.2 (1.0-2.1); CALCIUM 8.2 mg/dl (8.6-10.4); PHOSPHOROUS 2.6 mg/dL (2.5-4.5)
[2017-07-27] MEDS: (Novolog) Insulin Aspart, Recombinant 100 u/ml 10 ml vial SC SCH (08:32)
--- NOTE | 2017-07-27 10:24 | CP.PCM.PN ---
Subjective - Date & Time of Evaluation Date of Evaluation: 07/27/17 Time of Evaluation: 10:21 - Subjective Subjective: No nausea, vomiting Patient want to go home. 'BP moderately elevated Moderate hyponatremia worse- 125 Has CKD stage 4-5 likely from DM, atrophic left kidney Objective - Vital Signs/Intake and Output Vital Signs (last 24 hours): Temp Pulse Resp BP Pulse Ox 99.8 F H 64 20 169/81 H 96 07/27/17 00:28 07/27/17 00:28 07/27/17 00:28 07/27/17 00:28 07/27/17 00:28 Intake and Output: 07/27/17 07/27/17 06:59 18:59 Intake Total 400 Balance 400 - Medications Medications: Current Medications Acetaminophen (Tylenol 325mg Tab) 650 mg PO Q6 PRN PRN Reason: Headache Last Admin: 07/26/17 04:37 Dose: 650 mg Aspirin (Ecotrin) 81 mg PO DAILY [facility] Last Admin: 07/26/17 10:43 Dose: 81 mg Carvedilol (Coreg) 3.125 mg PO BID [facility] Last Admin: 07/26/17 17:03 Dose: 3.125 mg Docusate Sodium (Colace) 100 mg PO BID [facility] Last Admin: 07/26/17 17:03 Dose: 100 mg Heparin Sodium (Porcine) (Heparin) 5,000 units SC Q8 [facility] Last Admin: 07/27/17 06:35 Dose: 5,000 units Ciprofloxacin (Cipro 200mg/100ml D5w) 100 mls @ 67 mls/hr IVPB Q12H [facility] Last Admin: 07/26/17 22:03 Dose: 67 mls/hr Insulin Aspart (Novolog) 0 unit SC [facility] PRN Reason: Protocol Last Admin: 07/27/17 08:32 Dose: 1 unit Insulin Glargine (Lantus) 30 unit SC HS [facility] Last Admin: 07/26/17 22:04 Dose: 30 units Isosorbide Mononitrate (Imdur) 60 mg PO DAILY [facility] Last Admin: 07/26/17 10:50 Dose: 60 mg Levothyroxine Sodium (Synthroid) 25 mcg PO DAILY@0630 [facility] Last Admin: 07/27/17 06:35 Dose: 25 mcg Losartan Potassium (Cozaar) 50 mg PO Q12 [facility] Last Admin: 07/26/17 22:03 Dose: 50 mg Ondansetron HCl (Zofran Inj) 4 mg IVP Q6 PRN PRN Reason: Nausea/Vomiting Pantoprazole Sodium (Protonix Inj) 40 mg IVP DAILY [facility] Last Admin: 07/26/17 10:43 Dose: 40 mg Rosuvastatin Calcium (Crestor) 2.5 mg PO HS [facility] Last Admin: 07/26/17 22:03 Dose: 2.5 mg - Labs Labs: 07/27/17 07:16 07/27/17 07:16 - Constitutional Appears: No Acute Distress, Chronically Ill - Head Exam Head Exam: ATRAUMATIC, NORMAL INSPECTION - Eye Exam Eye Exam: EOMI, Normal appearance - Neck Exam Neck Exam: Normal Inspection. absent: Tenderness - Respiratory Exam Respiratory Exam: Clear to Ausculation Bilateral, NORMAL BREATHING PATTERN - Cardiovascular Exam Cardiovascular Exam: REGULAR RHYTHM, +S1 - GI/Abdominal Exam GI & Abdominal Exam: Soft. absent: Tenderness - Extremities Exam Extremities Exam: Normal Inspection. absent: Tenderness - Neurological Exam Neurological Exam: Alert, CN II-XII Intact - Skin Skin Exam: Dry, Warm Assessment and Plan (1) Type 2 diabetes mellitus with diabetic nephropathy Status: Acute (2) Chronic kidney disease, stage IV (severe) Status: Acute (3) Diabetic gastroparesis Status: Acute (4) Atrophy of left kidney Status: Acute (5) CAD (coronary artery disease) Status: Acute - Assessment and Plan (Free Text) Plan: Start diuretics for mild fluid overload, HTN Check iron stores for microcytic anemia Might need higher doses carvedilol If discharged can follow up as outpatient
[2017-07-27] MEDS: Ciprofloxacin 200mg/100ml D5W 100 ML IVPB SCH (11:10)
--- NOTE | 2017-07-27 16:31 | CP.PCM.PN ---
Subjective - Date & Time of Evaluation Date of Evaluation: 07/27/17 Time of Evaluation: 15:00 Objective - Vital Signs/Intake and Output Vital Signs (last 24 hours): Temp Pulse Resp BP Pulse Ox 98.5 F 63 20 168/86 H 95 07/27/17 08:00 07/27/17 08:00 07/27/17 08:00 07/27/17 11:38 07/27/17 08:00 Intake and Output: 07/27/17 07/27/17 06:59 18:59 Intake Total 400 Balance 400 - Medications Medications: Current Medications Acetaminophen (Tylenol 325mg Tab) 650 mg PO Q6 PRN PRN Reason: Headache Last Admin: 07/26/17 04:37 Dose: 650 mg Aspirin (Ecotrin) [address] [facility] Last Admin: 07/27/17 11:31 Dose: 81 mg Carvedilol (Coreg) 3.[address] [facility] Last Admin: 07/27/17 11:31 Dose: 3.125 mg Docusate Sodium (Colace) [address] [facility] Last Admin: 07/27/17 11:31 Dose: 100 mg Furosemide (Lasix) [address] [facility] Last Admin: 07/27/17 11:38 Dose: 20 mg Heparin Sodium (Porcine) (Heparin) 5,[address] [facility] Last Admin: 07/27/17 13:57 Dose: Not Given Ciprofloxacin (Cipro 200mg/100ml D5w) 100 mls @ 67 mls/hr IVPB Q12H [facility] Last Admin: 07/27/17 11:10 Dose: 67 mls/hr Insulin Aspart (Novolog) [address] [facility] PRN Reason: Protocol Last Admin: 07/27/17 08:32 Dose: 1 unit Insulin Glargine (Lantus) [address] [facility] Last Admin: 07/26/17 22:04 Dose: 30 units Isosorbide Mononitrate (Imdur) [address] [facility] Last Admin: 07/27/17 11:31 Dose: 60 mg Levothyroxine Sodium (Synthroid) 25 mcg PO DAILY@0630 [facility] Last Admin: 07/27/17 06:35 Dose: 25 mcg Losartan Potassium (Cozaar) [address] [facility] Last Admin: 07/27/17 11:31 Dose: 50 mg Ondansetron HCl (Zofran Inj) 4 mg IVP Q6 PRN PRN Reason: Nausea/Vomiting Pantoprazole Sodium (Protonix Inj) [address] [facility] Last Admin: 07/27/17 11:32 Dose: 40 mg Rosuvastatin Calcium (Crestor) 2.[address] [facility] Last Admin: 07/26/17 22:03 Dose: 2.5 mg - Labs Labs: 07/27/17 07:16 07/27/17 07:16
[2017-07-27 17:35] VITALS: BP 129/73; PULSE 74; TEMP 97.3; O2SAT 97
[2017-07-27] MEDS ORDERED: Influenza Vaccine 60 mcg/0.5 mL SYR (4YR UP) IM ONE (17:37)
== END 2017-07-27 19:00 | disposition home or self-care (01) | DRG 74 ==
LOC: C.ER 19:36 → C.3T 07-23 01:28 → UNDODISIN 07-27 16:35
PROVIDERS: ADMIT Internal Medicine; ATTEND Internal Medicine
DX: E11.43 Type 2 diabetes mellitus with diabetic autonomic (poly)neuropathy (principal); K31.84 Gastroparesis; E11.21 Type 2 diabetes mellitus with diabetic nephropathy; N18.4 Chronic kidney disease, stage 4 (severe); E87.1 Hypo-osmolality and hyponatremia; N39.0 Urinary tract infection, site not specified; E66.01 Morbid (severe) obesity due to excess calories; I12.9 Hypertensive chronic kidney disease with stage 1 through stage 4 chronic kidney disease, or unspecified chronic kidney disease; E11.22 Type 2 diabetes mellitus with diabetic chronic kidney disease; E78.00 Pure hypercholesterolemia, unspecified; E78.5 Hyperlipidemia, unspecified; I25.10 Atherosclerotic heart disease of native coronary artery without angina pectoris; N26.1 Atrophy of kidney (terminal); D35.2 Benign neoplasm of pituitary gland; Z79.4 Long term (current) use of insulin; Z95.5 Presence of coronary angioplasty implant and graft; Z90.710 Acquired absence of both cervix and uterus

== ENCOUNTER 2017-08-22 14:28 | Inpatient (IN) | payer MEDICARE ==
[2017-08-22 14:28] VITALS: BMI 34.0
[2017-08-22 15:26] LABS: BASO # 0.1 K/uL (0.0-0.2); BASO % 1.1 % (0.0-2.0); EOS # 0.2 K/uL (0.0-0.7); EOS % 2.5 % (0.0-4.0); HEMATOCRIT 35.2 % (34.0-47.0); LYMPH # 1.9 K/uL (1.0-4.3); LYMPH % 20.1 % (20.0-40.0); MEAN CELL VOLUME 81.1 fL (81.0-99.0); MEAN CORPUSCULAR HEMOGLOBIN 25.8 pg (27.0-31.0); MEAN CORPUSCULAR HGB CONC 31.8 g/dL (33.0-37.0); MEAN PLATELET VOLUME 9.6 fL (7.2-11.7); MONO # 0.6 K/uL (0.0-0.8); MONO % 5.7 % (0.0-10.0); RED CELL DISTRIBUTION WIDTH 15.4 % (11.5-14.5); WHITE BLOOD COUNT 9.7 K/uL (4.8-10.8)
[2017-08-22] MEDS ORDERED: Dextrose 50% SYRINGE Inj (50 ml) ONE (16:05)
[2017-08-22 16:06] LABS: ALB/GLOB RATIO 0.9 (1.0-2.1); ALKALINE PHOSPHATASE 89 U/L (38-126); ALT/SGPT 23 U/L (9-52); AST/SGOT 38 U/L (14-36); BLOOD UREA NITROGEN 56 mg/dL (7-17); CALCIUM 8.3 mg/dl (8.6-10.4); CARBON DIOXIDE 22 mmol/L (22-30); CHLORIDE 102 mmol/L (98-107); GFR AFRICAN-AMERICAN 22; GLUCOSE,RANDOM 56 mg/dL (65-105); POTASSIUM 5.9 mmol/L (3.6-5.2); SODIUM 132 mmol/L (132-148); TOTAL PROTEIN 8.6 g/dL (6.3-8.3)
--- NOTE | 2017-08-22 16:06 | C.PDOC ---
History Of Present Illness 71 year old female with a PMHx of a pituitary gland tumor removal, Diabetes-IDDM , high cholesterol, HTN, and cardiac stent presents to the ED for evaluation status post fall just [employer]. Fall was witnessed and patient was stated patient slid off of her couch and was not responding to family members. Family states no convulsive acts were witnessed but patient was frothing at the moment. Patient states she did eat this morning. As per EMS, patient had a low blood sugar en route to ED. Patient states she does not remember the event. Patient also notes she had an eye infection last week. Family denies head injury, vomiting, incontinence, headache, chest pain, or other complaints at this time. Time Seen by Provider: 08/22/17 14:50 Chief Complaint (Nursing): Weakness/Neurological Deficit History Per: EMS, Family History/Exam Limitations: no limitations Onset/Duration Of Symptoms: Hrs Current Symptoms Are (Timing): Still Present Associated Symptoms Preceding Syncopal Episode: No Predromal Symptoms (Sudden Onset) Seizure Or Post-ictal Symptoms: None Fall Associated With With Symptoms: No Injury As Result Of Fall Recent travel outside of the [place]: No Past Medical History Reviewed: Historical Data, Nursing Documentation, Vital Signs Vital Signs: Last Vital Signs Temp 94.2 F L 08/22/17 16:19 Pulse 61 08/22/17 15:55 Resp 16 08/22/17 15:55 BP 146/72 08/22/17 15:55 Pulse Ox 100 08/22/17 17:45 - Medical History PMH: CAD, Diabetes, HTN, Hypercholesterolemia, Chronic Kidney Disease Surgical History: Coronary Stent (10/2015) - [facility] Procedures INDIVIDUAL PSYCHOTHERAPY, SUPPORTIVE (11/23/16) MEASURE OF CARDIAC SAMPL & PRESSURE, L HEART, PERC APPROACH (10/14/15) OTHER COUNSELING (11/23/16) PLAIN RADIOGRAPHY OF MULT COR ART USING L OSM CONTRAST (10/14/15) Family History: States: Diabetes - Social History Hx Tobacco Use: No Hx Alcohol Use: No Hx Substance Use: No - Immunization History Hx Tetanus Toxoid Vaccination: No Hx Influenza Vaccination: Yes Hx Pneumococcal Vaccination: Yes Review Of Systems Constitutional: Negative for: Fever, Chills Cardiovascular: Negative for: Chest Pain, Palpitations Respiratory: Negative for: Cough, Shortness of Breath Gastrointestinal: Negative for: Nausea, Vomiting, Abdominal Pain, Diarrhea Neurological: Positive for: Other (syncope ) Physical Exam - Physical Exam Appears: Non-toxic, No Acute Distress Skin: Warm, Dry, No Rash, No Ecchymosis Head: Atraumatic, Normacephalic, No Tenderness Eye(s): right: Normal Inspection, PERRL, EOMI, left: Other (positive lid lag ) Oral Mucosa: Moist Neck: Supple Chest: Symmetrical, No Deformity Cardiovascular: Rhythm Regular, No Murmur Respiratory: No Rales, No Rhonchi, No Wheezing, Other Gastrointestinal/Abdominal: Soft, No Tenderness, No Distention, No Guarding, No Rebound, Other (abdomen is obese ) Extremity: Normal ROM, No Tenderness, No Pedal Edema, No Calf Tenderness, Capillary Refill (< 2 seconds ), No Deformity, No Swelling Neurological/Psych: Oriented x3 ED Course And Treatment - Laboratory Results Result Diagrams: 08/22/17 15:20 08/22/17 15:20 ECG: Interpreted By Me, Viewed By Me ECG Rhythm: Sinus Bradycardia Interpretation Of ECG: No ST elevations or depressions. No peaked T-waves. Rate From EC O2 Sat by Pulse Oximetry: 100 (RA) Pulse Ox Interpretation: Normal Progress Note: EKG, CXR, VBG, blood work, and labs were ordered. Patient was given D50, Azithromycin, Rocephin, and IV fluids. Medical Decision Making Medical Decision Making: Case discussed with patient's PMD Dr. Orlando, agrees with plan and admission. Disposition Discussed With : Renato Orlando Doctor Will See Patient In The: Hospital Counseled Patient/Family Regarding: Studies Performed, Diagnosis - Disposition Disposition: HOSPITALIZED Disposition Time: 17:44 Condition: GUARDED - Clinical Impression Clinical Impression: Hypoglycemia, Hypothermia, Hypernatremia - Scribe Statement The provider has reviewed the documentation as recorded by the Scribe Bernice Albrecht All medical record entries made by the Scribe were at my direction and personally dictated by me. I have reviewed the chart and agree that the record accurately reflects my personal performance of the history, physical exam, medical decision making, and the department course for this patient. I have also personally directed, reviewed, and agree with the discharge instructions and disposition. Decision To Admit - Pt Status Changed To: Hospital Disposition Of: Inpatient - Admit Certification Admit to Inpatient:: After my assessment, the patient will require hospitalization for at least two midnights. This is because of the severity of symptoms shown, intensity of services needed, and/or the medical risk in this patient being treated as an outpatient. - InPatient: Physician Admission Certification: I certify that this patient requires 2 or more midnights of care for the following reason:: hyponatremia, hypoglycemia - . Bed Request Type: Telemetry Patient Diagnosis: Hypoglycemia, Hypothermia, Hypernatremia
--- NOTE | 2017-08-22 16:13 | RAD ---
HISTORY: Diabetic COMPARISON: Chest x-ray performed 07/22/17 TECHNIQUE: Chest, one view. FINDINGS: Examination limited by habitus and hypoinflation. LUNGS: Patchy right hilar/ infrahilar opacities. Please note that chest x-ray has limited sensitivity for the detection of pulmonary masses. PLEURA: No significant pleural effusion identified. No definite pneumothorax . CARDIOVASCULAR: Cardiomegaly. OSSEOUS STRUCTURES: Degenerative changes. Acromioclavicular arthropathy. VISUALIZED UPPER ABDOMEN: Mild elevation of the right hemidiaphragm. OTHER FINDINGS: None. IMPRESSION: Patchy right hilar/ infrahilar opacities.
[2017-08-22] MEDS ORDERED: Dextrose 50% SYRINGE Inj (50 ml) IVP STA (16:15)
[2017-08-22 16:40] LABS: RBC URINE < 1 /hpf (0-3); URINE BACTERIA RARE (<OCC); URINE BILIRUBIN NEGATIVE (NEGATIVE); URINE BLOOD NEGATIVE (NEGATIVE); URINE COLOR Straw (YELLOW); URINE GLUCOSE (UA) 1+ mg/dL (Normal); URINE KETONE NEGATIVE (NEGATIVE); URINE LEUKOCYTE ESTERASE NEG Leu/uL (Negative); URINE PROTEIN 3+ mg/dL (NEGATIVE); URINE UROBILINOGEN NORMAL mg/dL (0.2-1.0); WBC URINE 3 /hpf (0-5)
[2017-08-22] MEDS ORDERED: cefTRIAXone IV 1 gm in Dextros 50 ML IVPB ONE ×2 (17:02→17:10)
[2017-08-22] MEDS ORDERED: Azithromycin 500 MG in Sodium Chloride 0.9% 250 ML IVPB STA (17:02)
[2017-08-22 17:09] LABS: VENOUS BLOOD GAS BASE EXCESS -3.3 mmol/L (0.0-2.0); VENOUS BLOOD GAS PCO2 51 mmHg (40-60); VENOUS BLOOD PH 7.28 (7.32-7.43)
[2017-08-22] MEDS ORDERED: Sod Polystyrene Sulf 15 gm/60 ml Susp PO ONE (17:46)
[2017-08-22] MEDS ORDERED: Sod Polystyrene Sulf 15 gm/60 ml Susp ONE (18:16)
--- NOTE | 2017-08-22 20:55 | CP.PCM.HP ---
History of Present Illness - History of Present Illness History of Present Illness: Chief complaint: Fall and not responding 71 year old female with a PMHx of a pituitary gland tumor removal, Diabetes-IDDM , high cholesterol, HTN, and cardiac stent presents to the ED for evaluation status post fall just [place]. Fall was witnessed and patient was stated patient slid off of her couch and was not responding to family members. Family states no convulsive acts were witnessed but patient was frothing at the moment. Patient states she did eat this morning. As per EMS, patient had a low blood sugar en route to ED. Patient states she does not remember the event. Patient also notes she had an eye infection last week. Family denies head injury, vomiting, incontinence, headache, chest pain, or other complaints at this time. History present illness: 71-year-old female with history of diabetes hypertension and hypercholesteremia CAD coronary artery stenting renal insufficiency history of pituitary tumor, recently had surgical intervention. Patient is currently taking supplementation for cortisol, thyroid. Pt BIBA after a fall and witnessed by family. Pt fell and slid off her couch and not responding. There was no convulsions. but Frothing from mouth noted. While EMS noted blood sugar very low and given dextrose. IN ED her sugar again went low again and started on dextrose. now Blood sugar better and her low temp also started getting better. no chest pain no headache no nausea no vomiting. She is not eating well, poor appetite noted, denies any chest pain, no palpitation noted. But not feeling well at all. Postoperatively patient was being managed by the [facility] consultant. Currently on supplemental thyroid hormones as well as cortisol. Patient is having very highly elevated blood sugar recently. She is feeling also some dizziness, weakness, tiredness, easy fatigability. And skin also getting more darker Past medical history: Diabetes hypertension and hypercholesteremia CAD status post distended renal insufficiency, pituitary tumor removal. Patient had a left the eye droop which is improving Allergy: No known drug allergy Personal history: Nonsmoker nonalcoholic. Review of system: Complaining of headache, no nausea, but no vomiting noted, no chest pain, no palpitation, weakness tiredness present. Abdominal discomfort noted, left lower quadrant tenderness and pain noted. Also having episodes of diarrhea. Urinary discomfort noted. Incontinence present. No leg swelling On examination: Vital signs reviewed No neck vein distention noted, dry mucosa noted Chest good air entry bilaterally, no wheezing or rales noted CVS regular heart sound, no murmur noted Abdomen soft, nontender. Extremities no pedal edema [employer] alert awake oriented 3, no functional neurological deficit labs: 08/22/17 15:20 08/22/17 15:20 Assessment and recommendation: 71-year-old female with history of diabetes hypertension hyponatremia CAD status post a stent to coronary artery disease, renal insufficiency. Patient recently underwent a pituitary tumor removal. Currently on supplemental hormones. Patient is having increasing depression, and also hypertension. Evidence of hypoadrenalism cannot be ruled out. Suggested the patient to have further workup for hormonal imbalance. Urinary tract infection noted, possibly urosepsis. We'll start the patient on IV antibiotic. IV fluids. We'll check for cord PSH cortisol level. Supplement the thyroid and hormones, cortisone. Glucose monitoring. We will follow the patient neurology eval endo eval hormone levels ct head accucheck dvt gi prophylaxis Hypoglycemia and hypothermia hypoadrenalism possible will monitor Present on Admission - Present on Admission Any Indicators Present on Admission: No History of DVT/PE: No History of Uncontrolled Diabetes: No Urinary Catheter: No Decubitus Ulcer Present: No Past Patient History - Infectious Disease Hx of Infectious Diseases: None - Past Medical History & Family History Past Medical History?: Yes - Past Social History Smoking Status: Never Smoked - CARDIAC Hx Hypercholesterolemia: Yes Hx Hypertension: Yes - PULMONARY Hx Respiratory Disorders: No - NEUROLOGICAL Hx Neurological Disorder: No Hx Dizziness: Yes - HEENT Hx HEENT Problems: Yes Other/Comment: left eye drooping-blurry due to DM - RENAL Hx Chronic Kidney Disease: Yes - ENDOCRINE/METABOLIC Hx Diabetes Mellitus Type 2: Yes - HEMATOLOGICAL/ONCOLOGICAL Hx Blood Disorders: No - INTEGUMENTARY Hx Dermatological Problems: No - MUSCULOSKELETAL/RHEUMATOLOGICAL Hx Musculoskeletal Disorders: No Hx Falls: Yes - GASTROINTESTINAL Hx Gastrointestinal Disorders: No - GENITOURINARY/GYNECOLOGICAL Hx Genitourinary Disorders: No - PSYCHIATRIC Hx Substance Use: No - SURGICAL HISTORY Hx Coronary Stent: Yes (10/2015) - ANESTHESIA Hx Anesthesia: Yes Hx Anesthesia Reactions: No Hx Malignant Hyperthermia: No Meds Allergies/Adverse Reactions: Allergies Allergy/AdvReac Type Severity Reaction Status Date / Time No Known Allergies Allergy Verified 08/22/17 14:39 Results - Vital Signs Recent Vital Signs: Last Vital Signs Temp 97.6 F 08/22/17 19:29 Pulse 62 08/22/17 19:29 Resp 18 08/22/17 19:29 BP 145/71 08/22/17 19:29 Pulse Ox 99 08/22/17 19:29 - Labs Result Diagrams: 08/22/17 15:20 08/22/17 15:20 Labs: Laboratory Results - last 24 hr 08/22/17 08/22/17 08/22/17 15:20 15:20 15:58 WBC 9.7 RBC 4.33 Hgb 11.2 Hct 35.2 MCV 81.1 MCH 25.8 L MCHC 31.8 L RDW 15.4 H Plt Count 216 MPV 9.6 Neut % (Auto) 70.6 Lymph % (Auto) 20.1 [place] % (Auto) 5.7 Eos % (Auto) 2.5 Baso % (Auto) 1.1 Neut # 6.9 Lymph # 1.9 [place] # 0.6 Eos # 0.2 Baso # 0.1 pO2 VBG pH VBG pCO2 VBG HCO3 VBG Total CO2 VBG O2 Sat (Calc) VBG Base Excess VBG Potassium Glucose Lactate Sodium 132 Potassium 5.9 H Chloride 102 Carbon Dioxide 22 Anion Gap 14 BUN 56 H Creatinine 2.6 H Est GFR ( Amer) 22 Est GFR (Non-Af Amer) 18 POC Glucose (mg/dL) 46 L Random Glucose 56 L Calcium 8.3 L Total Bilirubin 1.0 AST 38 H D ALT 23 Alkaline Phosphatase 89 Total Protein 8.6 H Albumin 4.1 Globulin 4.5 H Albumin/Globulin Ratio 0.9 L Venous Blood Potassium Urine Color Urine Clarity Urine pH Ur Specific [place] Urine Protein Urine Glucose (UA) Urine Ketones Urine Blood Urine Nitrate Urine Bilirubin Urine Urobilinogen Ur Leukocyte Esterase Urine WBC (Auto) Urine RBC (Auto) Ur Squamous Epith Cells Urine Bacteria Urine Opiates Screen Urine Methadone Screen Ur Barbiturates Screen Ur Phencyclidine Scrn Ur Amphetamines Screen U Benzodiazepines Scrn U Oth Cocaine Metabols U Cannabinoids Screen Serum Ketones Negative 08/22/17 08/22/17 08/22/17 16:05 16:05 17:00 WBC RBC Hgb Hct MCV MCH MCHC RDW Plt Count MPV Neut % (Auto) Lymph % (Auto) [place] % (Auto) Eos % (Auto) Baso % (Auto) Neut # Lymph # [place] # Eos # Baso # pO2 39 VBG pH 7.28 L VBG pCO2 51 VBG HCO3 21.5 VBG Total CO2 25.6 VBG O2 Sat (Calc) 78.1 H VBG Base Excess -3.3 L VBG Potassium 4.4 Glucose 173 H Lactate 0.9 Sodium 135.0 Potassium Chloride 107.0 Carbon Dioxide Anion Gap BUN Creatinine Est GFR ( Amer) Est GFR (Non-Af Amer) POC Glucose (mg/dL) Random Glucose Calcium Total Bilirubin AST ALT Alkaline Phosphatase Total Protein Albumin Globulin Albumin/Globulin Ratio Venous Blood Potassium 4.4 Urine Color Straw Urine Clarity Clear Urine pH 6.0 Ur Specific [place] 1.010 Urine Protein 3+ H Urine Glucose (UA) 1+ Urine Ketones Negative Urine Blood Negative Urine Nitrate Negative Urine Bilirubin Negative Urine Urobilinogen Normal Ur Leukocyte Esterase Neg Urine WBC (Auto) 3 Urine RBC (Auto) < 1 Ur Squamous Epith Cells < 1 Urine Bacteria Rare Urine Opiates Screen Negative Urine Methadone Screen Negative Ur Barbiturates Screen Negative Ur Phencyclidine Scrn Negative Ur Amphetamines Screen Negative U Benzodiazepines Scrn Negative U Oth Cocaine Metabols Negative U Cannabinoids Screen Negative Serum Ketones 08/22/17 18:17 WBC RBC Hgb Hct MCV MCH MCHC RDW Plt Count MPV Neut % (Auto) Lymph % (Auto) [place] % (Auto) Eos % (Auto) Baso % (Auto) Neut # Lymph # [place] # Eos # Baso # pO2 VBG pH VBG pCO2 VBG HCO3 VBG Total CO2 VBG O2 Sat (Calc) VBG Base Excess VBG Potassium Glucose Lactate Sodium Potassium Chloride Carbon Dioxide Anion Gap BUN Creatinine Est GFR ( Amer) Est GFR (Non-Af Amer) POC Glucose (mg/dL) 234 H Random Glucose Calcium Total Bilirubin AST ALT Alkaline Phosphatase Total Protein Albumin Globulin Albumin/Globulin Ratio Venous Blood Potassium Urine Color Urine Clarity Urine pH Ur Specific [place] Urine Protein Urine Glucose (UA) Urine Ketones Urine Blood Urine Nitrate Urine Bilirubin Urine Urobilinogen Ur Leukocyte Esterase Urine WBC (Auto) Urine RBC (Auto) Ur Squamous Epith Cells Urine Bacteria Urine Opiates Screen Urine Methadone Screen Ur Barbiturates Screen Ur Phencyclidine Scrn Ur Amphetamines Screen U Benzodiazepines Scrn U Oth Cocaine Metabols U Cannabinoids Screen Serum Ketones
[2017-08-22] MEDS: Rosuvastatin Calcium 2.5 mg Tab PO SCH (22:16)
[2017-08-22 22:20] LABS: THYROID STIMULATING HORMONE 0.46 mIU/L (0.46-4.68)
--- NOTE | 2017-08-22 22:43 | CT ---
EXAM: CT Head Without Intravenous Contrast CLINICAL HISTORY: 71 years old, female; Signs and symptoms; Altered mental status/memory loss; Additional info: AMS TECHNIQUE: Axial computed tomography images of the head/brain without intravenous contrast. All CT scans at this facility use one or more dose reduction techniques, viz.: automated exposure control; ma/kV adjustment per patient size (including targeted exams where dose is matched to indication; i.e. head); or iterative reconstruction technique. COMPARISON: CT - HEAD W/O CONTRAST 2017-07-26 13:49 FINDINGS: Brain: Mild atrophy. No intracranial hemorrhage. No mass. Few scattered foci of decreased attenuation within periventricular/subcortical white matter. No definite edema. Ventricles: No hydrocephalus. Bones/joints: No acute fracture. Soft tissues: Unremarkable. Vasculature: Atherosclerotic disease of intracranial arteries. Sinuses: Scattered mild mucosal thickening. Mastoid air cells: No mastoid effusion. Orbits: Unremarkable as visualized. IMPRESSION: 1. Nonspecific white matter changes. Acute infarction may be CT occult within first 24 hours. If a focal deficit persists, consider followup CT or MRI for further evaluation. 2. Incidental/non-acute findings are described above.
[2017-08-23] MEDS: Levothyroxine 25 MCG TAB PO SCH (06:24)
--- NOTE | 2017-08-23 06:56 | CP.PCM.CON ---
History of Present Illness - History of Present Illness History of Present Illness: CONSULT DICTATED FACIAL NUMBNESS, COFUSED OVER SLEPT AND WOKE UP THEN FELL ??? SEIZURES / TIA WORK UP PER ORDER Past Patient History - Infectious Disease Hx of Infectious Diseases: None - Past Medical History & Family History Past Medical History?: Yes - Past Social History Smoking Status: Never Smoked - CARDIAC Hx Hypercholesterolemia: Yes Hx Hypertension: Yes - PULMONARY Hx Respiratory Disorders: No - NEUROLOGICAL Hx Neurological Disorder: No Hx Dizziness: Yes - HEENT Hx HEENT Problems: Yes Other/Comment: left eye drooping-blurry due to DM - RENAL Hx Chronic Kidney Disease: Yes - ENDOCRINE/METABOLIC Hx Diabetes Mellitus Type 2: Yes - HEMATOLOGICAL/ONCOLOGICAL Hx Blood Disorders: No - INTEGUMENTARY Hx Dermatological Problems: No - MUSCULOSKELETAL/RHEUMATOLOGICAL Hx Falls: Yes - GASTROINTESTINAL Hx Gastrointestinal Disorders: No - GENITOURINARY/GYNECOLOGICAL Hx Genitourinary Disorders: No - PSYCHIATRIC Hx Substance Use: No - SURGICAL HISTORY Hx Coronary Stent: Yes (10/2015) - ANESTHESIA Hx Anesthesia: Yes Hx Anesthesia Reactions: No Hx Malignant Hyperthermia: No Meds Allergies/Adverse Reactions: Allergies Allergy/AdvReac Type Severity Reaction Status Date / Time No Known Allergies Allergy Verified 08/22/17 14:39 - Medications Medications: Current Medications Aspirin (Ecotrin) 81 mg PO DAILY [facility] Carvedilol (Coreg) 6.25 mg PO BID [facility] Docusate Sodium (Colace) 100 mg PO BID [facility] Ergocalciferol (Drisdol 50,000 Intl Units Cap) 1 cap PO QWK [facility] Hydralazine HCl (Apresoline) 25 mg PO QID [facility] Dextrose (Dextrose 10% In Water) 1,000 mls @ 20 mls/hr IV .Q24H [facility] Last Admin: 08/22/17 20:55 Dose: 20 mls/hr Isosorbide Mononitrate (Imdur) 60 mg PO DAILY [facility] Last Admin: 08/22/17 22:55 Dose: 60 mg Levothyroxine Sodium (Synthroid) 25 mcg PO DAILY@0630 [facility] Last Admin: 08/23/17 06:24 Dose: 25 mcg Pneumococcal Polyvalent Vaccine (Pneumovax 23 Vaccine) 0.5 ml IM .ONCE ONE Stop: 08/25/17 10:01 Rosuvastatin Calcium (Crestor) 2.5 mg PO HS [facility] Last Admin: 08/22/17 22:16 Dose: 2.5 mg Results - Vital Signs Recent Vital Signs: Last Vital Signs Temp 98.1 F 08/22/17 23:00 Pulse 59 L 08/23/17 04:21 Resp 20 08/22/17 23:00 BP 144/62 08/23/17 00:00 Pulse Ox 98 08/22/17 23:00 - Labs Result Diagrams: 08/22/17 15:20 08/22/17 15:20 Labs: Laboratory Results - last 24 hr 08/22/17 08/22/17 08/22/17 15:20 15:20 15:58 WBC 9.7 RBC 4.33 Hgb 11.2 Hct 35.2 MCV 81.1 MCH 25.8 L MCHC 31.8 L RDW 15.4 H Plt Count 216 MPV 9.6 Neut % (Auto) 70.6 Lymph % (Auto) 20.1 [place] % (Auto) 5.7 Eos % (Auto) 2.5 Baso % (Auto) 1.1 Neut # 6.9 Lymph # 1.9 [place] # 0.6 Eos # 0.2 Baso # 0.1 pO2 VBG pH VBG pCO2 VBG HCO3 VBG Total CO2 VBG O2 Sat (Calc) VBG Base Excess VBG Potassium Glucose Lactate Sodium 132 Potassium 5.9 H Chloride 102 Carbon Dioxide 22 Anion Gap 14 BUN 56 H Creatinine 2.6 H Est GFR ( Amer) 22 Est GFR (Non-Af Amer) 18 POC Glucose (mg/dL) 46 L Random Glucose 56 L Calcium 8.3 L Total Bilirubin 1.0 AST 38 H D ALT 23 Alkaline Phosphatase 89 Total Protein 8.6 H Albumin 4.1 Globulin 4.5 H Albumin/Globulin Ratio 0.9 L Total T3 TSH 3rd Generation Plasma Cortisol PM Venous Blood Potassium Urine Color Urine Clarity Urine pH Ur Specific [place] Urine Protein Urine Glucose (UA) Urine Ketones Urine Blood Urine Nitrate Urine Bilirubin Urine Urobilinogen Ur Leukocyte Esterase Urine WBC (Auto) Urine RBC (Auto) Ur Squamous Epith Cells Urine Bacteria Urine Opiates Screen Urine Methadone Screen Ur Barbiturates Screen Ur Phencyclidine Scrn Ur Amphetamines Screen U Benzodiazepines Scrn U Oth Cocaine Metabols U Cannabinoids Screen Serum Ketones Negative 08/22/17 08/22/17 08/22/17 16:05 16:05 17:00 WBC RBC Hgb Hct MCV MCH MCHC RDW Plt Count MPV Neut % (Auto) Lymph % (Auto) [place] % (Auto) Eos % (Auto) Baso % (Auto) Neut # Lymph # [place] # Eos # Baso # pO2 39 VBG pH 7.28 L VBG pCO2 51 VBG HCO3 21.5 VBG Total CO2 25.6 VBG O2 Sat (Calc) 78.1 H VBG Base Excess -3.3 L VBG Potassium 4.4 Glucose 173 H Lactate 0.9 Sodium 135.0 Potassium Chloride 107.0 Carbon Dioxide Anion Gap BUN Creatinine Est GFR ( Amer) Est GFR (Non-Af Amer) POC Glucose (mg/dL) Random Glucose Calcium Total Bilirubin AST ALT Alkaline Phosphatase Total Protein Albumin Globulin Albumin/Globulin Ratio Total T3 TSH 3rd Generation Plasma Cortisol PM Venous Blood Potassium 4.4 Urine Color Straw Urine Clarity Clear Urine pH 6.0 Ur Specific [place] 1.010 Urine Protein 3+ H Urine Glucose (UA) 1+ Urine Ketones Negative Urine Blood Negative Urine Nitrate Negative Urine Bilirubin Negative Urine Urobilinogen Normal Ur Leukocyte Esterase Neg Urine WBC (Auto) 3 Urine RBC (Auto) < 1 Ur Squamous Epith Cells < 1 Urine Bacteria Rare Urine Opiates Screen Negative Urine Methadone Screen Negative Ur Barbiturates Screen Negative Ur Phencyclidine Scrn Negative Ur Amphetamines Screen Negative U Benzodiazepines Scrn Negative U Oth Cocaine Metabols Negative U Cannabinoids Screen Negative Serum Ketones 08/22/17 08/22/17 08/22/17 18:17 20:50 21:27 WBC RBC Hgb Hct MCV MCH MCHC RDW Plt Count MPV Neut % (Auto) Lymph % (Auto) [place] % (Auto) Eos % (Auto) Baso % (Auto) Neut # Lymph # [place] # Eos # Baso # pO2 VBG pH VBG pCO2 VBG HCO3 VBG Total CO2 VBG O2 Sat (Calc) VBG Base Excess VBG Potassium Glucose Lactate Sodium Potassium Chloride Carbon Dioxide Anion Gap BUN Creatinine Est GFR ( Amer) Est GFR (Non-Af Amer) POC Glucose (mg/dL) 234 H 261 H Random Glucose Calcium Total Bilirubin AST ALT Alkaline Phosphatase Total Protein Albumin Globulin Albumin/Globulin Ratio Total T3 TSH 3rd Generation Plasma Cortisol PM 6.60 Venous Blood Potassium Urine Color Urine Clarity Urine pH Ur Specific [place] Urine Protein Urine Glucose (UA) Urine Ketones Urine Blood Urine Nitrate Urine Bilirubin Urine Urobilinogen Ur Leukocyte Esterase Urine WBC (Auto) Urine RBC (Auto) Ur Squamous Epith Cells Urine Bacteria Urine Opiates Screen Urine Methadone Screen Ur Barbiturates Screen Ur Phencyclidine Scrn Ur Amphetamines Screen U Benzodiazepines Scrn U Oth Cocaine Metabols U Cannabinoids Screen Serum Ketones 08/22/17 08/22/17 08/23/17 21:27 22:23 02:09 WBC RBC Hgb Hct MCV MCH MCHC RDW Plt Count MPV Neut % (Auto) Lymph % (Auto) [place] % (Auto) Eos % (Auto) Baso % (Auto) Neut # Lymph # [place] # Eos # Baso # pO2 VBG pH VBG pCO2 VBG HCO3 VBG Total CO2 VBG O2 Sat (Calc) VBG Base Excess VBG Potassium Glucose Lactate Sodium Potassium Chloride Carbon Dioxide Anion Gap BUN Creatinine Est GFR ( Amer) Est GFR (Non-Af Amer) POC Glucose (mg/dL) 196 H 117 H Random Glucose Calcium Total Bilirubin AST ALT Alkaline Phosphatase Total Protein Albumin Globulin Albumin/Globulin Ratio Total T3 0.960 L TSH 3rd Generation 0.46 Plasma Cortisol PM Venous Blood Potassium Urine Color Urine Clarity Urine pH Ur Specific [place] Urine Protein Urine Glucose (UA) Urine Ketones Urine Blood Urine Nitrate Urine Bilirubin Urine Urobilinogen Ur Leukocyte Esterase Urine WBC (Auto) Urine RBC (Auto) Ur Squamous Epith Cells Urine Bacteria Urine Opiates Screen Urine Methadone Screen Ur Barbiturates Screen Ur Phencyclidine Scrn Ur Amphetamines Screen U Benzodiazepines Scrn U Oth Cocaine Metabols U Cannabinoids Screen Serum Ketones 08/23/17 08/23/17 06:11 06:40 WBC RBC Hgb Hct MCV MCH MCHC RDW Plt Count MPV Neut % (Auto) Lymph % (Auto) [place] % (Auto) Eos % (Auto) Baso % (Auto) Neut # Lymph # [place] # Eos # Baso # pO2 VBG pH VBG pCO2 VBG HCO3 VBG Total CO2 VBG O2 Sat (Calc) VBG Base Excess VBG Potassium Glucose Lactate Sodium Potassium Chloride Carbon Dioxide Anion Gap BUN Creatinine Est GFR ( Amer) Est GFR (Non-Af Amer) POC Glucose (mg/dL) 57 L 121 H Random Glucose Calcium Total Bilirubin AST ALT Alkaline Phosphatase Total Protein Albumin Globulin Albumin/Globulin Ratio Total T3 TSH 3rd Generation Plasma Cortisol PM Venous Blood Potassium Urine Color Urine Clarity Urine pH Ur Specific [place] Urine Protein Urine Glucose (UA) Urine Ketones Urine Blood Urine Nitrate Urine Bilirubin Urine Urobilinogen Ur Leukocyte Esterase Urine WBC (Auto) Urine RBC (Auto) Ur Squamous Epith Cells Urine Bacteria Urine Opiates Screen Urine Methadone Screen Ur Barbiturates Screen Ur Phencyclidine Scrn Ur Amphetamines Screen U Benzodiazepines Scrn U Oth Cocaine Metabols U Cannabinoids Screen Serum Ketones
[2017-08-23 07:09] LABS: ALB/GLOB RATIO 1.2 (1.0-2.1); BILIRUBIN,TOTAL 0.6 mg/dL (0.2-1.3); CALCIUM 7.5 mg/dl (8.6-10.4); MAGNESIUM 1.5 mg/dL (1.6-2.3); POTASSIUM 3.8 mmol/L (3.6-5.2); TOTAL PROTEIN 5.8 g/dL (6.3-8.3)
[2017-08-23 07:16] LABS: TROPONIN I 0.018 ng/mL (0.00-0.120)
[2017-08-23 07:20] LABS: T4 6.05 ug/dL (5.5-11.0)
[2017-08-23 07:28] LABS: HEMATOCRIT 30.9 % (34.0-47.0); MEAN CORPUSCULAR HEMOGLOBIN 25.6 pg (27.0-31.0); MEAN CORPUSCULAR HGB CONC 31.6 g/dL (33.0-37.0); MEAN PLATELET VOLUME 9.4 fL (7.2-11.7); RED CELL DISTRIBUTION WIDTH 15.1 % (11.5-14.5)
--- NOTE | 2017-08-23 07:57 | CP.PCM.PN ---
Subjective - Date & Time of Evaluation Date of Evaluation: 08/23/17 Time of Evaluation: 07:55 - Subjective Subjective: pt is doing well but sugar is still low no chest pain FSBS 54 this am and still on dextrose drip Objective - Vital Signs/Intake and Output Vital Signs (last 24 hours): Temp Pulse Resp BP Pulse Ox 98.3 F 61 20 181/78 H 98 08/23/17 07:40 08/23/17 07:40 08/23/17 07:40 08/23/17 07:40 08/23/17 07:40 - Medications Medications: Current Medications Aspirin (Ecotrin) 81 mg PO DAILY [facility] Carvedilol (Coreg) 6.25 mg PO BID [facility] Docusate Sodium (Colace) 100 mg PO BID [facility] Ergocalciferol (Drisdol 50,000 Intl Units Cap) 1 cap PO QWK [facility] Heparin Sodium (Porcine) (Heparin) 5,000 units SC Q12 [facility] Hydralazine HCl (Apresoline) 25 mg PO QID [facility] Dextrose (Dextrose 10% In Water) 1,000 mls @ 20 mls/hr IV .Q24H [facility] Last Admin: 08/22/17 20:55 Dose: 20 mls/hr Isosorbide Mononitrate (Imdur) 60 mg PO DAILY [facility] Last Admin: 08/22/17 22:55 Dose: 60 mg Levothyroxine Sodium (Synthroid) 25 mcg PO DAILY@0630 [facility] Last Admin: 08/23/17 06:24 Dose: 25 mcg Rosuvastatin Calcium (Crestor) 2.5 mg PO HS [facility] Last Admin: 08/22/17 22:16 Dose: 2.5 mg - Labs Labs: 08/23/17 06:38 08/23/17 06:38 - Additional Findings Additional findings: now getting EEG ct brain non specific labs noted high bun and creatitine Assessment and Plan (1) Altered mental state Assessment & Plan: likely because of low blood sugar, most likely pt took more insulin will monitor dietitian eval Status: Acute (2) Hypoglycemia Status: Acute (3) Hypothermia Status: Acute (4) Chronic kidney disease, stage IV (severe) Status: Acute
[2017-08-23] MEDS ORDERED: Ergocalciferol 50,000 Intl Units Cap PO SCH ×2 (10:00→12:45)
[2017-08-23] MEDS ORDERED: Enoxaparin 40 mg Syringe SC SCH (10:00)
--- NOTE | 2017-08-23 11:56 | MRI ---
PROCEDURE: MRI BRAIN WITHOUT CONTRAST HISTORY: mass Vs stroke COMPARISON: Head CT 07/30/2017 as well as prior brain MRI 11/24/2016. TECHNIQUE: Multiplanar, multisequence MR images of the brain were obtained without intravenous contrast enhancement. FINDINGS: HEMORRHAGE: None DWI: No evidence of an acute or early subacute infarction. BRAIN PARENCHYMA: Age-appropriate age-related neuro degenerative changes are reiterated comprised of diffuse cerebral atrophy and chronic microangiopathy once again. There is no mass effect or dramatic other interval change or involving the brain parenchyma diffusely. Posterior fossa contents appear stable including the brainstem. 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 Clinically correlate further. VENTRICLES: Unremarkable. No hydrocephalus. CRANIUM: Unremarkable. ORBITS: Grossly unremarkable. PARANASAL SINUSES/MASTOIDS: Mild multifocal sinus disease is seen involving the bilateral ethmoid air cell diffusely as well as right greater left maxillary sinuses. VASCULAR SYSTEM: Skull base flow voids intact. OTHER FINDINGS: None. IMPRESSION: 1. A definitive it acute intracranial findings including brain infarction or acute to chronic hemorrhage. Hyper acute hemorrhage can be difficult to identify on MRI and clinically correlate as to the need of potential CT or MR follow-up. 2. Likely postoperative changes of the sella in this patient with a prior sella/suprasellar mass, potentially a macro adenoma pituitary gland. Clinically correlate. 3. Reiterated age related neuro degenerative changes.
--- NOTE | 2017-08-23 13:08 | CARD ---
APPROVED REPORT EXAM: Two-dimensional and M-mode echocardiogram with Doppler and color Doppler. Other Information Quality : GoodRhythm : INDICATION CVA/TIA Dizziness and Vertigo Dyspnea Cardiac Disease: CAD Chest Pain RISK FACTORS Diabetes 2D DIMENSIONS IVSd1.1 (0.7-1.1cm)LVDd4.3 (3.9-5.9cm) PWd1.1 (0.7-1.1cm)LVDs2.5 (2.5-4.0cm) FS (%) 42.3 %LVEF (%)73.6 (>50%) M-Mode DIMENSIONS Left Atrium (MM)3.88 (2.5-4.0cm)Aortic Root3.09 (2.2-3.7cm) Aortic Cusp Exc.1.97 (1.5-2.0cm) Mitral Valve MV E Owkcuqni09.3cm/sMV A Yshbalhj582.4cm/sE/A ratio0.7 TDI E/Lateral E'0.0E/Medial E'0.0 Tricuspid Valve TR Peak Kccinkbh882xn/sTR Peak Gr.[id number] LEFT VENTRICLE The left ventricle is normal size. There is mild concentric left ventricular hypertrophy. Left ventricle systolic function is normal. The Ejection Fraction is 65-70%. There is normal LV segmental wall motion. Transmitral Doppler flow pattern is abnormal.Grade I-abnormal relaxation pattern. There is no ventricular septal defect visualized. RIGHT VENTRICLE The right ventricle is normal size. The right ventricular systolic function is normal. ATRIA The left atrium is mildly dilated. The right atrium size is normal. AORTIC VALVE The aortic valve is mildly sclerotic. The aortic valve is tri-cuspid. No aortic regurgitation is present. There is no aortic valvular stenosis. MITRAL VALVE The mitral valve is normal in structure. There is no evidence of mitral valve prolapse. There is no mitral valve regurgitation noted. TRICUSPID VALVE The tricuspid valve is normal in structure. There is trace tricuspid regurgitation. Right ventricular systolic pressure is estimated at less than 30 mmHg. There is no pulmonary hypertension. PULMONIC VALVE The pulmonic valve is not well visualized. There is no pulmonic valvular regurgitation. GREAT VESSELS The aortic root is normal in size. The ascending aorta is normal in size. The IVC is normal in size and collapses >50% with inspiration. PERICARDIAL EFFUSION There is no pericardial effusion. <Conclusion> There is mild concentric left ventricular hypertrophy. Left ventricle systolic function is normal. The Ejection Fraction is 65-70%. Transmitral Doppler flow pattern is abnormal.Grade I-abnormal relaxation pattern.
--- NOTE | 2017-08-23 13:26 | CARD ---
APPROVED REPORT EKG Measurement Heart [id number] <Conclusion> Sinus bradycardia Cannot rule out Anterior infarct, age undetermined Abnormal ECG
--- NOTE | 2017-08-23 13:49 | CP.PCM.CON ---
History of Present Illness - History of Present Illness History of Present Illness: 71 year old female with a PMHx of a pituitary gland tumor removal, Diabetes-IDDM , high cholesterol, HTN, and cardiac stent presents to the ED for evaluation status post fall just [employer]. Fall was witnessed and patient was stated patient slid off of her couch and was not responding to family members. Family states no convulsive acts were witnessed but patient was frothing at the moment. Patient states she did eat this morning. As per EMS, patient had a low blood sugar en route to ED. Patient states she does not remember the event. Patient also notes she had an eye infection last week. Family denies head injury, vomiting, incontinence, headache, chest pain, or other complaints at this time. Renal evaluation for CKD. Pt sees Dr. Mandel in office, last creatinine of 2.6. Tendency for hyperkalemia, has been on valsarten. Pt also on glipizide as an outpatient. Now awake and alert. Offers no acute complaints. Improved blood sugars. Review of Systems - Constitutional Constitutional: absent: Excessive Sweating, Fever - EENT Eyes: Discharge. absent: Diplopia Nose/Mouth/Throat: absent: Nasal Congestion, Nasal Discharge - Respiratory Respiratory: absent: Cough, Dyspnea - Gastrointestinal Gastrointestinal: absent: Abdominal Pain, Bloating - Genitourinary Genitourinary: absent: Change in Urinary Stream, Difficulty Urinating - Musculoskeletal Musculoskeletal: absent: Back Pain, Joint Swelling - Neurological Neurological: absent: Convulsions, Disequilibrium - Hematologic/Lymphatic Hematologic: absent: Easy Bleeding, Easy Bruising Past Patient History - Infectious Disease Hx of Infectious Diseases: None - Past Medical History & Family History Past Medical History?: Yes - Past Social History Smoking Status: Never Smoked - CARDIAC Hx Hypercholesterolemia: Yes Hx Hypertension: Yes - PULMONARY Hx Respiratory Disorders: No - NEUROLOGICAL Hx Neurological Disorder: No Hx Dizziness: Yes - HEENT Hx HEENT Problems: Yes Other/Comment: left eye drooping-blurry due to DM - RENAL Hx Chronic Kidney Disease: Yes - ENDOCRINE/METABOLIC Hx Diabetes Mellitus Type 2: Yes - HEMATOLOGICAL/ONCOLOGICAL Hx Blood Disorders: No - INTEGUMENTARY Hx Dermatological Problems: No - MUSCULOSKELETAL/RHEUMATOLOGICAL Hx Falls: Yes - GASTROINTESTINAL Hx Gastrointestinal Disorders: No - GENITOURINARY/GYNECOLOGICAL Hx Genitourinary Disorders: No - PSYCHIATRIC Hx Substance Use: No - SURGICAL HISTORY Hx Coronary Stent: Yes (10/2015) - ANESTHESIA Hx Anesthesia: Yes Hx Anesthesia Reactions: No Hx Malignant Hyperthermia: No Meds Allergies/Adverse Reactions: Allergies Allergy/AdvReac Type Severity Reaction Status Date / Time No Known Allergies Allergy Verified 08/22/17 14:39 - Medications Medications: Current Medications Aspirin (Ecotrin) 81 mg PO DAILY [facility] Last Admin: 08/23/17 10:33 Dose: 81 mg Carvedilol (Coreg) 6.25 mg PO BID [facility] Last Admin: 08/23/17 10:33 Dose: 6.25 mg Docusate Sodium (Colace) 100 mg PO BID [facility] Last Admin: 08/23/17 10:32 Dose: 100 mg Ergocalciferol (Drisdol 50,000 Intl Units Cap) 1 cap PO QWK [facility] Last Admin: 08/23/17 12:55 Dose: 1 cap Heparin Sodium (Porcine) (Heparin) 5,000 units SC Q12 [facility] Last Admin: 08/23/17 10:33 Dose: 5,000 units Hydralazine HCl (Apresoline) 25 mg PO QID [facility] Dextrose (Dextrose 10% In Water) 1,000 mls @ 20 mls/hr IV .Q24H [facility] Last Admin: 08/22/17 20:55 Dose: 20 mls/hr Isosorbide Mononitrate (Imdur) 60 mg PO DAILY [facility] Last Admin: 08/23/17 08:26 Dose: 60 mg Levothyroxine Sodium (Synthroid) 25 mcg PO DAILY@0630 [facility] Last Admin: 08/23/17 06:24 Dose: 25 mcg Rosuvastatin Calcium (Crestor) 2.5 mg PO HS [facility] Last Admin: 08/22/17 22:16 Dose: 2.5 mg Physical Exam - Constitutional Appears: Non-toxic, No Acute Distress - Head Exam Head Exam: ATRAUMATIC Additional comments: left eye appears smaller then right eye - ENT Exam ENT Exam: Mucous Membranes Moist, Normal External Ear Exam - Neck Exam Neck exam: Positive for: Full Rom. Negative for: Lymphadenopathy - Respiratory Exam Respiratory Exam: NORMAL BREATHING PATTERN. absent: Accessory Muscle Use - Cardiovascular Exam Cardiovascular Exam: REGULAR RHYTHM. absent: Rubs - GI/Abdominal Exam GI & Abdominal Exam: Soft. absent: Distended, Guarding - Extremities Exam Extremities exam: Negative for: pedal edema Results - Vital Signs Recent Vital Signs: Last Vital Signs Temp 98.3 F 08/23/17 07:40 Pulse 61 08/23/17 07:40 Resp 20 08/23/17 07:40 BP 181/78 H 08/23/17 07:40 Pulse Ox 98 08/23/17 07:40 - Labs Result Diagrams: 08/23/17 06:38 08/23/17 06:38 Labs: Laboratory Results - last 24 hr 08/22/17 08/22/17 08/22/17 15:20 15:20 15:58 WBC 9.7 RBC 4.33 Hgb 11.2 Hct 35.2 MCV 81.1 MCH 25.8 L MCHC 31.8 L RDW 15.4 H Plt Count 216 MPV 9.6 Neut % (Auto) 70.6 Lymph % (Auto) 20.1 [place] % (Auto) 5.7 Eos % (Auto) 2.5 Baso % (Auto) 1.1 Neut # 6.9 Lymph # 1.9 Ed[place]ds # 0.6 Eos # 0.2 Baso # 0.1 pO2 VBG pH VBG pCO2 VBG HCO3 VBG Total CO2 VBG O2 Sat (Calc) VBG Base Excess VBG Potassium Glucose Lactate Sodium 132 Potassium 5.9 H Chloride 102 Carbon Dioxide 22 Anion Gap 14 BUN 56 H Creatinine 2.6 H Est GFR ( Amer) 22 Est GFR (Non-Af Amer) 18 POC Glucose (mg/dL) 46 L Random Glucose 56 L Calcium 8.3 L Magnesium Total Bilirubin 1.0 AST 38 H D ALT 23 Alkaline Phosphatase 89 Ammonia Total Creatine Kinase CK-MB (Mass) Troponin I Total Protein 8.6 H Albumin 4.1 Globulin 4.5 H Albumin/Globulin Ratio 0.9 L Thyroxine (T4) Total T3 TSH 3rd Generation Prolactin Cortisol AM Sample Plasma Cortisol PM Venous Blood Potassium Urine Color Urine Clarity Urine pH Ur Specific [place] Urine Protein Urine Glucose (UA) Urine Ketones Urine Blood Urine Nitrate Urine Bilirubin Urine Urobilinogen Ur Leukocyte Esterase Urine WBC (Auto) Urine RBC (Auto) Ur Squamous Epith Cells Urine Bacteria Urine Opiates Screen Urine Methadone Screen Ur Barbiturates Screen Ur Phencyclidine Scrn Ur Amphetamines Screen U Benzodiazepines Scrn U Oth Cocaine Metabols U Cannabinoids Screen Serum Ketones Negative 08/22/17 08/22/17 08/22/17 16:05 16:05 17:00 WBC RBC Hgb Hct MCV MCH MCHC RDW Plt Count MPV Neut % (Auto) Lymph % (Auto) [place] % (Auto) Eos % (Auto) Baso % (Auto) Neut # Lymph # [place] # Eos # Baso # pO2 39 VBG pH 7.28 L VBG pCO2 51 VBG HCO3 21.5 VBG Total CO2 25.6 VBG O2 Sat (Calc) 78.1 H VBG Base Excess -3.3 L VBG Potassium 4.4 Glucose 173 H Lactate 0.9 Sodium 135.0 Potassium Chloride 107.0 Carbon Dioxide Anion Gap BUN Creatinine Est GFR ( Amer) Est GFR (Non-Af Amer) POC Glucose (mg/dL) Random Glucose Calcium Magnesium Total Bilirubin AST ALT Alkaline Phosphatase Ammonia Total Creatine Kinase CK-MB (Mass) Troponin I Total Protein Albumin Globulin Albumin/Globulin Ratio Thyroxine (T4) Total T3 TSH 3rd Generation Prolactin Cortisol AM Sample Plasma Cortisol PM Venous Blood Potassium 4.4 Urine Color Straw Urine Clarity Clear Urine pH 6.0 Ur Specific [place] 1.010 Urine Protein 3+ H Urine Glucose (UA) 1+ Urine Ketones Negative Urine Blood Negative Urine Nitrate Negative Urine Bilirubin Negative Urine Urobilinogen Normal Ur Leukocyte Esterase Neg Urine WBC (Auto) 3 Urine RBC (Auto) < 1 Ur Squamous Epith Cells < 1 Urine Bacteria Rare Urine Opiates Screen Negative Urine Methadone Screen Negative Ur Barbiturates Screen Negative Ur Phencyclidine Scrn Negative Ur Amphetamines Screen Negative U Benzodiazepines Scrn Negative U Oth Cocaine Metabols Negative U Cannabinoids Screen Negative Serum Ketones 08/22/17 08/22/17 08/22/17 18:17 20:50 21:27 WBC RBC Hgb Hct MCV MCH MCHC RDW Plt Count MPV Neut % (Auto) Lymph % (Auto) [place] % (Auto) Eos % (Auto) Baso % (Auto) Neut # Lymph # [place] # Eos # Baso # pO2 VBG pH VBG pCO2 VBG HCO3 VBG Total CO2 VBG O2 Sat (Calc) VBG Base Excess VBG Potassium Glucose Lactate Sodium Potassium Chloride Carbon Dioxide Anion Gap BUN Creatinine Est GFR ( Amer) Est GFR (Non-Af Amer) POC Glucose (mg/dL) 234 H 261 H Random Glucose Calcium Magnesium Total Bilirubin AST ALT Alkaline Phosphatase Ammonia Total Creatine Kinase CK-MB (Mass) Troponin I Total Protein Albumin Globulin Albumin/Globulin Ratio Thyroxine (T4) Total T3 TSH 3rd Generation Prolactin Cortisol AM Sample Plasma Cortisol PM 6.60 Venous Blood Potassium Urine Color Urine Clarity Urine pH Ur Specific [place] Urine Protein Urine Glucose (UA) Urine Ketones Urine Blood Urine Nitrate Urine Bilirubin Urine Urobilinogen Ur Leukocyte Esterase Urine WBC (Auto) Urine RBC (Auto) Ur Squamous Epith Cells Urine Bacteria Urine Opiates Screen Urine Methadone Screen Ur Barbiturates Screen Ur Phencyclidine Scrn Ur Amphetamines Screen U Benzodiazepines Scrn U Oth Cocaine Metabols U Cannabinoids Screen Serum Ketones 08/22/17 08/22/17 08/23/17 21:27 22:23 02:09 WBC RBC Hgb Hct MCV MCH MCHC RDW Plt Count MPV Neut % (Auto) Lymph % (Auto) [place] % (Auto) Eos % (Auto) Baso % (Auto) Neut # Lymph # [place] # Eos # Baso # pO2 VBG pH VBG pCO2 VBG HCO3 VBG Total CO2 VBG O2 Sat (Calc) VBG Base Excess VBG Potassium Glucose Lactate Sodium Potassium Chloride Carbon Dioxide Anion Gap BUN Creatinine Est GFR ( Amer) Est GFR (Non-Af Amer) POC Glucose (mg/dL) 196 H 117 H Random Glucose Calcium Magnesium Total Bilirubin AST ALT Alkaline Phosphatase Ammonia Total Creatine Kinase CK-MB (Mass) Troponin I Total Protein Albumin Globulin Albumin/Globulin Ratio Thyroxine (T4) Total T3 0.960 L TSH 3rd Generation 0.46 Prolactin Cortisol AM Sample Plasma Cortisol PM Venous Blood Potassium Urine Color Urine Clarity Urine pH Ur Specific [place] Urine Protein Urine Glucose (UA) Urine Ketones Urine Blood Urine Nitrate Urine Bilirubin Urine Urobilinogen Ur Leukocyte Esterase Urine WBC (Auto) Urine RBC (Auto) Ur Squamous Epith Cells Urine Bacteria Urine Opiates Screen Urine Methadone Screen Ur Barbiturates Screen Ur Phencyclidine Scrn Ur Amphetamines Screen U Benzodiazepines Scrn U Oth Cocaine Metabols U Cannabinoids Screen Serum Ketones 08/23/17 08/23/17 08/23/17 06:11 06:38 06:38 WBC 10.0 RBC 3.81 Hgb 9.8 L Hct 30.9 L MCV 81.0 MCH 25.6 L MCHC 31.6 L RDW 15.1 H Plt Count 218 MPV 9.4 Neut % (Auto) Lymph % (Auto) [place] % (Auto) Eos % (Auto) Baso % (Auto) Neut # Lymph # [place] # Eos # Baso # pO2 VBG pH VBG pCO2 VBG HCO3 VBG Total CO2 VBG O2 Sat (Calc) VBG Base Excess VBG Potassium Glucose Lactate Sodium 135 Potassium 3.8 Chloride 104 Carbon Dioxide 22 Anion Gap 14 BUN 49 H Creatinine 2.5 H Est GFR ( Amer) 23 Est GFR (Non-Af Amer) 19 POC Glucose (mg/dL) 57 L Random Glucose 51 L Calcium 7.5 L Magnesium 1.5 L Total Bilirubin 0.6 AST 15 ALT 28 Alkaline Phosphatase 74 Ammonia Total Creatine Kinase 33 CK-MB (Mass) 1.28 Troponin I 0.0180 Total Protein 5.8 L Albumin 3.2 L D Globulin 2.6 Albumin/Globulin Ratio 1.2 Thyroxine (T4) 6.05 Total T3 TSH 3rd Generation Prolactin Cortisol AM Sample Plasma Cortisol PM Venous Blood Potassium Urine Color Urine Clarity Urine pH Ur Specific [place] Urine Protein Urine Glucose (UA) Urine Ketones Urine Blood Urine Nitrate Urine Bilirubin Urine Urobilinogen Ur Leukocyte Esterase Urine WBC (Auto) Urine RBC (Auto) Ur Squamous Epith Cells Urine Bacteria Urine Opiates Screen Urine Methadone Screen Ur Barbiturates Screen Ur Phencyclidine Scrn Ur Amphetamines Screen U Benzodiazepines Scrn U Oth Cocaine Metabols U Cannabinoids Screen Serum Ketones 08/23/17 08/23/17 08/23/17 06:38 06:40 11:53 WBC RBC Hgb Hct MCV MCH MCHC RDW Plt Count MPV Neut % (Auto) Lymph % (Auto) [place] % (Auto) Eos % (Auto) Baso % (Auto) Neut # Lymph # [place] # Eos # Baso # pO2 VBG pH VBG pCO2 VBG HCO3 VBG Total CO2 VBG O2 Sat (Calc) VBG Base Excess VBG Potassium Glucose Lactate Sodium Potassium Chloride Carbon Dioxide Anion Gap BUN Creatinine Est GFR ( Amer) Est GFR (Non-Af Amer) POC Glucose (mg/dL) 121 H Random Glucose Calcium Magnesium Total Bilirubin AST ALT Alkaline Phosphatase Ammonia 16 Total Creatine Kinase CK-MB (Mass) Troponin I Total Protein Albumin Globulin Albumin/Globulin Ratio Thyroxine (T4) Total T3 TSH 3rd Generation Prolactin Cortisol AM Sample 9.7 Plasma Cortisol PM Venous Blood Potassium Urine Color Urine Clarity Urine pH Ur Specific [place] Urine Protein Urine Glucose (UA) Urine Ketones Urine Blood Urine Nitrate Urine Bilirubin Urine Urobilinogen Ur Leukocyte Esterase Urine WBC (Auto) Urine RBC (Auto) Ur Squamous Epith Cells Urine Bacteria Urine Opiates Screen Urine Methadone Screen Ur Barbiturates Screen Ur Phencyclidine Scrn Ur Amphetamines Screen U Benzodiazepines Scrn U Oth Cocaine Metabols U Cannabinoids Screen Serum Ketones 08/23/17 11:53 WBC RBC Hgb Hct MCV MCH MCHC RDW Plt Count MPV Neut % (Auto) Lymph % (Auto) [place] % (Auto) Eos % (Auto) Baso % (Auto) Neut # Lymph # [place] # Eos # Baso # pO2 VBG pH VBG pCO2 VBG HCO3 VBG Total CO2 VBG O2 Sat (Calc) VBG Base Excess VBG Potassium Glucose Lactate Sodium Potassium Chloride Carbon Dioxide Anion Gap BUN Creatinine Est GFR ( Amer) Est GFR (Non-Af Amer) POC Glucose (mg/dL) Random Glucose Calcium Magnesium Total Bilirubin AST ALT Alkaline Phosphatase Ammonia Total Creatine Kinase CK-MB (Mass) Troponin I Total Protein Albumin Globulin Albumin/Globulin Ratio Thyroxine (T4) Total T3 TSH 3rd Generation Prolactin 10.7 Cortisol AM Sample Plasma Cortisol PM Venous Blood Potassium Urine Color Urine Clarity Urine pH Ur Specific [place] Urine Protein Urine Glucose (UA) Urine Ketones Urine Blood Urine Nitrate Urine Bilirubin Urine Urobilinogen Ur Leukocyte Esterase Urine WBC (Auto) Urine RBC (Auto) Ur Squamous Epith Cells Urine Bacteria Urine Opiates Screen Urine Methadone Screen Ur Barbiturates Screen Ur Phencyclidine Scrn Ur Amphetamines Screen U Benzodiazepines Scrn U Oth Cocaine Metabols U Cannabinoids Screen Serum Ketones Assessment & Plan - Assessment and Plan (Free Text) Assessment: ckd due to diabetic nephropathy, associated with type 4 rta check urine protein and electrolytes keep off arb/errol due to above consideration to d/cing sulfonylurea, in view of hypoglycemia
[2017-08-23 14:29] LABS: THYROID STIMULATING HORMONE 0.85 mIU/L (0.46-4.68)
--- NOTE | 2017-08-23 18:29 | CON ---
DATE: ATTENDING PHYSICIAN: Renato Orlando MD. REASON FOR CONSULTATION: Change in mental status. CHIEF COMPLAINT: Patient was brought into [facility] by the family members with a history of change in mental status and history of fall. From neurological point of view, I was called in to evaluate her for further management. HISTORY OF PRESENT ILLNESS: Ms. 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 All she recalled yesterday she woke up normal around 10:00 a.m. she felt her face numbness and with no reasons she slept for about hour an half in the bed. She got up and she tried to sit on the chair, she fell on her side. The time she woke up, she was surrounded by EMT people. No history of witnessed tonic-clonic activities, no history of bowel or bladder incontinence, no history of bitten tongue at the scene. No similar episodes happened in the past. At present, she denies any complaints. No headache or visual or bulbar dysfunction. No focal weakness. PAST MEDICAL HISTORY: Dyslipidemia, [id number] diabetes mellitus, history of cardiac stent placement, pituitary surgery and removal. PERSONAL HISTORY: Denies smoking or alcohol use. ALLERGIES: NO KNOWN ALLERGIES. REVIEW OF SYSTEMS: A 12-point of systems have been reviewed. From neuro, new change in mental status. MEDICATION: Apresoline, Colace, Coreg, Crestor, Drisdol, Imdur, and Ecotrin. PHYSICAL EXAMINATION: VITAL SIGNS: Blood pressure 144/62, mean arterial pressure of 89, respiratory rate 16, temperature afebrile. NECK: Supple. No carotid bruit. HEART: Sounds are regular. CHEST: Fair air entry. EXTREMITIES: No edema in legs. NEUROLOGIC: Mental status: She is awake, alert, and oriented to person, place and time. Speech is clear. Naming, repetition, fluency, comprehension all within normal. Cranial nerves: Dense right homonymous hemianopsia. External ophthalmoplegia also noted, particularly the upgaze. Pupils reactive to light. No facial sensory deficit. No facial asymmetry. Hearing is normal. Tongue is midline. Good gag. Motor: On an outstretched hand with eyes closed, no drift noted. Power is symmetric on either side. Deep tendon reflexes are absent. Plantars are upgoing on the left side. Significant pes cavus and hammer toe deformity noted in both lower extremities. DIAGNOSTIC WORKUP: CT of the head reviewed, no acute pathology is noted. EKG, normal sinus rhythm. BLOOD WORKUP: WBC 9.7, hemoglobin 11.2, hematocrit 35.2, platelet 216. Sodium 132, potassium 4.9, chloride 102, bicarbonate 22, BUN 56, creatinine 2.6, GFR 18, glucose 121, calcium 8.3. TSH 0.46. Cortisol level 6.60. Urinalysis shows 3+ proteinuria and 1+ glucose. CONCLUSION: Ms. Melina Montez is presenting with change in mental status, preceding with facial numbness, profound sleeping, woke up with weakness and fell on her side, consistent with possible seizures versus transient ischemic attack. The current examination shows right homonymous dense hemianopsia with decreased palpebral fissure and decreased gaze(upgaze) noted with left Babinski sign. All consistent with this is a probably new stroke process on her right cerebral cortex or left cerebral cortex as well. 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 Patient should be on anti-platelets. Workup by MRI of the brain, carotid Doppler, and echo have been ordered. Cardiology consult also recommended. Patient should be on diabetic control, weight reduction has been discussed. Patient should be having polysomnogram, which could be done as outpatient to rule in or out sleep-related breathing disorder because of her profound risk factors. Blu Yost MD
[2017-08-23] MEDS: Rosuvastatin Calcium 2.5 mg Tab PO SCH (21:22)
[2017-08-24] MEDS: Levothyroxine 25 MCG TAB PO SCH (05:59)
--- NOTE | 2017-08-24 09:40 | CP.PCM.PN ---
Subjective - Date & Time of Evaluation Date of Evaluation: 08/24/17 Time of Evaluation: 09:37 - Subjective Subjective: Alert; BSs now better BP labile Has known nephrotic syndrome feels better; no new complaints Objective - Vital Signs/Intake and Output Vital Signs (last 24 hours): Temp Pulse Resp BP Pulse Ox 98.0 F 68 20 196/69 H 99 08/24/17 08:08 08/24/17 08:08 08/24/17 08:08 08/24/17 08:08 08/24/17 08:08 Intake and Output: 08/24/17 08/24/17 06:59 18:59 Intake Total 440 Balance 440 - Medications Medications: Current Medications Aspirin (Ecotrin) 81 mg PO DAILY [facility] Last Admin: 08/23/17 10:33 Dose: 81 mg Carvedilol (Coreg) 12.5 mg PO BID [facility] Docusate Sodium (Colace) 100 mg PO BID [facility] Last Admin: 08/23/17 17:27 Dose: 100 mg Ergocalciferol (Drisdol 50,000 Intl Units Cap) 1 cap PO QWK [facility] Last Admin: 08/23/17 12:55 Dose: 1 cap Heparin Sodium (Porcine) (Heparin) 5,000 units SC Q12 [facility] Last Admin: 08/23/17 21:22 Dose: 5,000 units Hydralazine HCl (Apresoline) 25 mg PO QID [facility] Last Admin: 08/24/17 07:53 Dose: 25 mg Isosorbide Mononitrate (Imdur) 60 mg PO DAILY [facility] Last Admin: 08/24/17 07:52 Dose: 60 mg Levothyroxine Sodium (Synthroid) 25 mcg PO DAILY@0630 [facility] Last Admin: 08/24/17 05:59 Dose: 25 mcg Magnesium Oxide (Mag-Ox) 400 mg PO DAILY [facility] Rosuvastatin Calcium (Crestor) 2.5 mg PO HS [facility] Last Admin: 08/23/17 21:22 Dose: 2.5 mg - Labs Labs: 08/23/17 06:38 08/23/17 06:38 - Constitutional Appears: No Acute Distress, Chronically Ill - Head Exam Head Exam: ATRAUMATIC, NORMAL INSPECTION - Eye Exam Eye Exam: EOMI, Normal appearance - Neck Exam Neck Exam: Normal Inspection. absent: Tenderness - Respiratory Exam Respiratory Exam: Clear to Ausculation Bilateral, NORMAL BREATHING PATTERN - Cardiovascular Exam Cardiovascular Exam: REGULAR RHYTHM, +S1 - GI/Abdominal Exam GI & Abdominal Exam: Soft. absent: Tenderness - Neurological Exam Neurological Exam: Alert, CN II-XII Intact - Skin Skin Exam: Dry, Warm Assessment and Plan (1) Hypoglycemia Status: Acute (2) CKD stage 4 due to type 2 diabetes mellitus Status: Acute (3) Proteinuria due to type 2 diabetes mellitus Status: Acute (4) Type 2 diabetes mellitus with diabetic nephropathy Status: Acute (5) Uncontrolled hypertension Status: Acute - Assessment and Plan (Free Text) Plan: increase BP meds replete mag add ARB monitor blood sugars
[2017-08-24] MEDS: Magnesium Oxide 400 mg Tab UD PO SCH (10:15)
[2017-08-24] MEDS: (Novolin R) Insulin Human Regular 100 units/ml vial SC SCH ×2 (17:35→22:11)
[2017-08-24] MEDS: Rosuvastatin Calcium 2.5 mg Tab PO SCH (21:31)
--- NOTE | 2017-08-24 23:59 | CP.PCM.PN ---
Subjective - Date & Time of Evaluation Date of Evaluation: 08/24/17 Time of Evaluation: 23:59 - Subjective Subjective: feeling better no chest pain her sugar is improving no nausea no vomiting labs noted seen by nephrology Objective - Vital Signs/Intake and Output Vital Signs (last 24 hours): Temp Pulse Resp BP Pulse Ox 98.2 F 67 18 174/75 H 97 08/24/17 16:26 08/24/17 21:32 08/24/17 16:26 08/24/17 21:32 08/24/17 16:26 Intake and Output: 08/24/17 08/25/17 18:59 06:59 Intake Total 350 320 Balance 350 320 - Medications Medications: Current Medications Aspirin (Ecotrin) 81 mg PO DAILY [facility] Last Admin: 08/24/17 10:16 Dose: 81 mg Carvedilol (Coreg) 12.5 mg PO BID [facility] Last Admin: 08/24/17 19:00 Dose: Not Given Docusate Sodium (Colace) 100 mg PO BID [facility] Last Admin: 08/24/17 17:34 Dose: 100 mg Ergocalciferol (Drisdol 50,000 Intl Units Cap) 1 cap PO QWK [facility] Last Admin: 08/23/17 12:55 Dose: 1 cap Heparin Sodium (Porcine) (Heparin) 5,000 units SC Q12 [facility] Last Admin: 08/24/17 21:31 Dose: 5,000 units Hydralazine HCl (Apresoline) 25 mg PO QID [facility] Last Admin: 08/24/17 21:32 Dose: 25 mg Insulin Human Regular (Novolin R) 0 unit SC ACHS [facility] PRN Reason: Protocol Last Admin: 08/24/17 22:11 Dose: Not Given Isosorbide Mononitrate (Imdur) 60 mg PO DAILY [facility] Last Admin: 08/24/17 13:17 Dose: Not Given Levothyroxine Sodium (Synthroid) 25 mcg PO DAILY@0630 [facility] Last Admin: 08/24/17 05:59 Dose: 25 mcg Losartan Potassium (Cozaar) 25 mg PO DAILY [facility] Last Admin: 08/24/17 10:15 Dose: 25 mg Magnesium Oxide (Mag-Ox) 400 mg PO DAILY [facility] Last Admin: 08/24/17 10:15 Dose: 400 mg Rosuvastatin Calcium (Crestor) 2.5 mg PO HS [facility] Last Admin: 08/24/17 21:31 Dose: 2.5 mg - Labs Labs: 08/23/17 06:38 08/23/17 06:38 chest good air entry regular hs abd soft Assessment and Plan (1) Altered mental state Assessment & Plan: hypoglycemia improving Status: Acute (2) Hypoglycemia Status: Acute (3) Hypothermia Status: Acute (4) Chronic kidney disease, stage IV (severe) Status: Acute
[2017-08-25 00:24] VITALS: O2SAT 98
[2017-08-25] MEDS: Levothyroxine 25 MCG TAB PO SCH (06:17)
[2017-08-25] MEDS: (Novolin R) Insulin Human Regular 100 units/ml vial SC SCH ×4 (08:15→17:00)
[2017-08-25] MEDS: Magnesium Oxide 400 mg Tab UD PO SCH (09:11)
[2017-08-25] MEDS ORDERED: Pneumococcal 23-Valent Vaccine IM ONE (10:00)
--- NOTE | 2017-08-25 10:12 | CP.PCM.PN ---
Subjective - Date & Time of Evaluation Date of Evaluation: 08/25/17 Time of Evaluation: 10:10 - Subjective Subjective: alert; no new complaint BP labile started on ARB BSs better Objective - Vital Signs/Intake and Output Vital Signs (last 24 hours): Temp Pulse Resp BP Pulse Ox 98.3 F 54 L 20 157/98 H 98 08/25/17 07:00 08/25/17 07:00 08/25/17 07:00 08/25/17 07:00 08/25/17 07:00 Intake and Output: 08/25/17 08/25/17 06:59 18:59 Intake Total 320 Balance 320 - Medications Medications: Current Medications Aspirin (Ecotrin) 81 mg PO DAILY [facility] Last Admin: 08/25/17 09:11 Dose: 81 mg Carvedilol (Coreg) 12.5 mg PO BID [facility] Last Admin: 08/25/17 10:03 Dose: 12.5 mg Docusate Sodium (Colace) 100 mg PO BID [facility] Last Admin: 08/25/17 09:10 Dose: 100 mg Ergocalciferol (Drisdol 50,000 Intl Units Cap) 1 cap PO QWK [facility] Last Admin: 08/23/17 12:55 Dose: 1 cap Heparin Sodium (Porcine) (Heparin) 5,000 units SC Q12 [facility] Last Admin: 08/25/17 09:12 Dose: 5,000 units Hydralazine HCl (Apresoline) 25 mg PO QID [facility] Last Admin: 08/25/17 09:11 Dose: 25 mg Insulin Human Regular (Novolin R) 0 unit SC ACHS [facility] PRN Reason: Protocol Last Admin: 08/25/17 08:44 Dose: 3 unit Isosorbide Mononitrate (Imdur) 60 mg PO DAILY [facility] Last Admin: 08/25/17 10:03 Dose: 60 mg Levothyroxine Sodium (Synthroid) 25 mcg PO DAILY@0630 [facility] Last Admin: 08/25/17 06:17 Dose: 25 mcg Losartan Potassium (Cozaar) 25 mg PO DAILY [facility] Last Admin: 08/25/17 09:13 Dose: 25 mg Magnesium Oxide (Mag-Ox) 400 mg PO DAILY [facility] Last Admin: 08/25/17 09:11 Dose: 400 mg Rosuvastatin Calcium (Crestor) 2.5 mg PO HS [facility] Last Admin: 08/24/17 21:31 Dose: 2.5 mg - Labs Labs: 08/23/17 06:38 08/23/17 06:38 - Constitutional Appears: No Acute Distress, Chronically Ill - Head Exam Head Exam: ATRAUMATIC, NORMAL INSPECTION - Eye Exam Eye Exam: EOMI, Normal appearance - Neck Exam Neck Exam: Full ROM. absent: Normal Inspection - Respiratory Exam Respiratory Exam: Clear to Ausculation Bilateral, NORMAL BREATHING PATTERN - Cardiovascular Exam Cardiovascular Exam: REGULAR RHYTHM, +S1 - GI/Abdominal Exam GI & Abdominal Exam: Soft. absent: Tenderness - Extremities Exam Extremities Exam: Normal Inspection. absent: Tenderness - Neurological Exam Neurological Exam: Alert, CN II-XII Intact - Skin Skin Exam: Dry, Warm Assessment and Plan (1) Hypoglycemia Status: Acute (2) CKD stage 4 due to type 2 diabetes mellitus Status: Acute (3) Proteinuria due to type 2 diabetes mellitus Status: Acute (4) Type 2 diabetes mellitus with diabetic nephropathy Status: Acute (5) Uncontrolled hypertension Status: Acute - Assessment and Plan (Free Text) Plan: Add lasix for HTN and K control follow up chemistries monitor BP
--- NOTE | 2017-08-25 10:52 | VASCLAB ---
PROCEDURE: HISTORY: Carotid Stenosis COMPARISON: None available. TECHNIQUE: Grayscale and duplex Doppler evaluation of the cervical carotid and vertebral arteries were performed. The common carotid, carotid bifurcations and cervical Internal Carotid Artery (ICA) and proximal External Carotid Artery (ECA) were evaluated. The vertebral arteries were evaluated for gross patency and flow direction. Report prepared by Chandana Garcia, BS, RVT FINDINGS: RIGHT CAROTID ARTERIES: 1. Common Carotid Artery: No significant focal plaque formation of the right common carotid artery. Maximum Peak Systolic velocity: 86 cm/sec: End-diastolic velocity 8 cm/sec. 2. Carotid Bifurcation: plaque formation. Maximum Peak Systolic velocity: 60 cm/sec: End-diastolic velocity 12 cm/sec. 3. Internal Carotid Artery: Plaque description: 3.1. Proximal Segment: Peak systolic velocity 87 cm/sec: End-diastolic velocity 20 cm/sec - % stenosis 0-15% 3.2. Middle Segment: Peak systolic velocity 88 cm/sec: End-diastolic velocity 29 cm/sec - % stenosis 0-15% 3.3. Distal Segment: Peak systolic velocity 82 cm/sec: End-diastolic velocity 20 cm/sec - % stenosis 0-15% 4. External Carotid Artery: No significant focal plaque formation. Peak systolic velocity 125 cm/sec 5. ICA/CCA Ratio: 1.1 LEFT CAROTID ARTERIES: 1. Common Carotid Artery: No significant focal plaque formation of the left common carotid artery. Maximum Peak Systolic velocity: 108 cm/sec: End-diastolic velocity 12 cm/sec. 2. Carotid Bifurcation: plaque formation. Maximum Peak Systolic velocity: 62 cm/sec: End-diastolic velocity 15 cm/sec. 3. Internal Carotid Artery: Plaque description: 3.1. Proximal Segment: Peak systolic velocity 85 cm/sec: End-diastolic velocity 23 cm/sec - % stenosis 0-15% 3.2. Middle Segment: Peak systolic velocity 96 cm/sec: End-diastolic velocity 33 cm/sec - % stenosis 0-15% 3.3. Distal Segment: Peak systolic velocity 96 cm/sec: End-diastolic velocity 30 cm/sec - % stenosis 0-15% 4. External Carotid Artery: No significant focal plaque formation. Peak systolic velocity 120 cm/sec 5. ICA/CCA Ratio: 1.7 VERTEBRAL ARTERIES: 1. Right Vertebral Artery: The right vertebral artery flow direction is antegrade. 2. Left Vertebral Artery: The left vertebral artery flow direction is antegrade. OTHER FINDINGS: 1. Right Brachial Blood pressure: 170 mmHg. 2. Left Brachial Blood pressure: 170 mmHg. IMPRESSION: RIGHT: Duplex scan does not suggest hemodynamically significant stenosis of the right extracranial carotid arteries. LEFT: Duplex scan does not suggest hemodynamically significant stenosis of the left extracranial carotid arteries.
[2017-08-25 14:19] LABS: HEMATOCRIT 31.6 % (34.0-47.0); MEAN CELL VOLUME 81.6 fL (81.0-99.0); MEAN CORPUSCULAR HEMOGLOBIN 25.7 pg (27.0-31.0); MEAN CORPUSCULAR HGB CONC 31.5 g/dL (33.0-37.0); MEAN PLATELET VOLUME 9.6 fL (7.2-11.7); RED CELL DISTRIBUTION WIDTH 15.1 % (11.5-14.5); WHITE BLOOD COUNT 9.1 K/uL (4.8-10.8)
[2017-08-25 14:43] LABS: ALB/GLOB RATIO 1.2 (1.0-2.1); BILIRUBIN,TOTAL 0.5 mg/dL (0.2-1.3); CALCIUM 7.9 mg/dl (8.6-10.4); POTASSIUM 4.1 mmol/L (3.6-5.2); TOTAL PROTEIN 6.2 g/dL (6.3-8.3)
[2017-08-25 16:01] VITALS: BP 153/63; PULSE 56; RESP 18; TEMP 98.2
--- NOTE | 2017-08-25 17:24 | PN ---
DATE: 08/25/2017 NEUROLOGICAL PROBLEM: Near syncopal attack, rule out seizures. PHYSICAL EXAMINATION: VITAL SIGNS: Blood pressure 157/98, mean arterial pressure of 117, respiratory rate 16, temperature 98.3, pulse rate is 54 and regular. The patient is awake, alert, no new complaints. No focal complaints as well. She slept good. Examination which is unchanged. MRI of the brain is reviewed by me showed periventricular ischemic changes. The patient also showed postsurgical changes. The patient also showed diffuse atrophy. Carotid Doppler was reported as no significant stenosis. Electroencephalogram also showed into sleep without any focal slowing or paroxysmal activities. The patient neurologically is stable. Continue the present management. The patient will be followed closely during the hospitalization. Blu Yost MD
[2017-08-26 03:40] LABS: CHLORIDE URINE 37 mmol/L (32-290)
--- NOTE | 2017-08-27 14:58 | CP.PCM.DIS ---
Provider - Provider Date of Admission: 08/22/17 17:46 Attending physician: Renato Benavides MD Time Spent in preparation of Discharge (in minutes): 45 Diagnosis - Discharge Diagnosis (1) Altered mental state Status: Acute (2) Hypoglycemia Status: Acute (3) Hypothermia Status: Acute (4) Chronic kidney disease, stage IV (severe) Status: Acute Hospital Course - Lab Results Lab Results: Micro Results 08/22/17 17:00 Blood Blood Culture - Preliminary NO GROWTH AFTER 4 DAYS 08/22/17 17:15 Blood Blood Culture - Preliminary NO GROWTH AFTER 4 DAYS 08/22/17 17:53 Urine,Clean Catch Urine Culture - Final No Growth (<1,000 CFU/ML) Most Recent Lab Values WBC 9.1 K/uL (4.8-10.8) 08/25/17 13:52 RBC 3.87 Mil/uL (3.80-5.20) 08/25/17 13:52 Hgb 9.9 g/dL (11.0-16.0) L 08/25/17 13:52 Hct 31.6 % (34.0-47.0) L 08/25/17 13:52 MCV 81.6 fL (81.0-99.0) 08/25/17 13:52 MCH 25.7 pg (27.0-31.0) L 08/25/17 13:52 MCHC 31.5 g/dL (33.0-37.0) L 08/25/17 13:52 RDW 15.1 % (11.5-14.5) H 08/25/17 13:52 Plt Count 196 K/uL (130-400) 08/25/17 13:52 MPV 9.6 fL (7.2-11.7) 08/25/17 13:52 Neut % (Auto) 70.6 % (50.0-75.0) 08/22/17 15:20 Lymph % (Auto) 20.1 % (20.0-40.0) 08/22/17 15:20 [place] % (Auto) 5.7 % (0.0-10.0) 08/22/17 15:20 Eos % (Auto) 2.5 % (0.0-4.0) 08/22/17 15:20 Baso % (Auto) 1.1 % (0.0-2.0) 08/22/17 15:20 Neut # 6.9 K/uL (1.8-7.0) 08/22/17 15:20 Lymph # 1.9 K/uL (1.0-4.3) 08/22/17 15:20 [place] # 0.6 K/uL (0.0-0.8) 08/22/17 15:20 Eos # 0.2 K/uL (0.0-0.7) 08/22/17 15:20 Baso # 0.1 K/uL (0.0-0.2) 08/22/17 15:20 pO2 39 mm/Hg (30-55) 08/22/17 17:00 VBG pH 7.28 (7.32-7.43) L 08/22/17 17:00 VBG pCO2 51 mmHg (40-60) 08/22/17 17:00 VBG HCO3 21.5 mmol/L 08/22/17 17:00 VBG Total CO2 25.6 mmol/L (22-28) 08/22/17 17:00 VBG O2 Sat (Calc) 78.1 % (40-65) H 08/22/17 17:00 VBG Base Excess -3.3 mmol/L (0.0-2.0) L 08/22/17 17:00 VBG Potassium 4.4 mmol/L (3.6-5.2) 08/22/17 17:00 Sodium 135.0 mmol/l (132-148) 08/22/17 17:00 Chloride 107.0 mmol/L (98-107) 08/22/17 17:00 Glucose 173 mg/dl (65-105) H 08/22/17 17:00 Lactate 0.9 mmol/L (0.7-2.1) 08/22/17 17:00 Sodium 130 mmol/L (132-148) L 08/25/17 13:52 Potassium 4.1 mmol/L (3.6-5.2) 08/25/17 13:52 Chloride 98 mmol/L (98-107) 08/25/17 13:52 Carbon Dioxide 24 mmol/L (22-30) 08/25/17 13:52 Anion Gap 13 (10-20) 08/25/17 13:52 BUN 46 mg/dL (7-17) H 08/25/17 13:52 Creatinine 2.5 mg/dL (0.7-1.2) H 08/25/17 13:52 Est GFR ( Amer) 23 08/25/17 13:52 Est GFR (Non-Af Amer) 19 08/25/17 13:52 POC Glucose (mg/dL) 158 mg/dL (65-110) H 08/25/17 17:50 Random Glucose 117 mg/dL (65-105) H 08/25/17 13:52 Calcium 7.9 mg/dl (8.6-10.4) L 08/25/17 13:52 Magnesium 1.5 mg/dL (1.6-2.3) L 08/23/17 06:38 Total Bilirubin 0.5 mg/dL (0.2-1.3) 08/25/17 13:52 AST 15 U/L (14-36) 08/25/17 13:52 ALT 29 U/L (9-52) 08/25/17 13:52 Alkaline Phosphatase 103 U/L (38-126) 08/25/17 13:52 Ammonia 16 umol/L (9-33) 08/23/17 11:53 Total Creatine Kinase 33 U/L (30-135) 08/23/17 06:38 CK-MB (Mass) 1.28 ng/mL (0.0-3.38) 08/23/17 06:38 Troponin I 0.0180 ng/mL (0.00-0.120) 08/23/17 06:38 Total Protein 6.2 g/dL (6.3-8.3) L 08/25/17 13:52 Albumin 3.4 g/dL (3.5-5.0) L 08/25/17 13:52 Globulin 2.8 gm/dL (2.2-3.9) 08/25/17 13:52 Albumin/Globulin Ratio 1.2 (1.0-2.1) 08/25/17 13:52 Thyroxine (T4) 6.05 ug/dL (5.5-11.0) 08/23/17 06:38 Total T3 1.00 nmol/L (1.49-2.60) L 08/23/17 06:38 TSH 3rd Generation 0.85 mIU/L (0.46-4.68) 08/23/17 06:38 Prolactin 10.7 ng/mL (3.0-18.9) 08/23/17 11:53 PTH Intact Whole Molec 338 pg/mL (14-64) H 08/23/17 06:38 Cortisol AM Sample 9.7 ug/dL (4.46-22.7) 08/23/17 06:38 Plasma Cortisol PM 4.42 ug/dL (1.7-14.1) 08/23/17 16:56 ACTH 22 pg/mL (6-50) 08/23/17 06:38 Venous Blood Potassium 4.4 mmol/L (3.6-5.2) 08/22/17 17:00 Urine Color Straw (YELLOW) 08/22/17 16:05 Urine Clarity Clear (Clear) 08/22/17 16:05 Urine pH 6.0 (5.0-8.0) 08/22/17 16:05 Ur Specific [place] 1.010 (1.003-1.030) 08/22/17 16:05 Urine Protein 3+ mg/dL (NEGATIVE) H 08/22/17 16:05 Urine Glucose (UA) 1+ mg/dL (Normal) 08/22/17 16:05 Urine Ketones Negative mg/dL (NEGATIVE) 08/22/17 16:05 Urine Blood Negative (NEGATIVE) 08/22/17 16:05 Urine Nitrate Negative (NEGATIVE) 08/22/17 16:05 Urine Bilirubin Negative (NEGATIVE) 08/22/17 16:05 Urine Urobilinogen Normal mg/dL (0.2-1.0) 08/22/17 16:05 Ur Leukocyte Esterase Neg Gabe/uL (Negative) 08/22/17 16:05 Urine WBC (Auto) 3 /hpf (0-5) 08/22/17 16:05 Urine RBC (Auto) < 1 /hpf (0-3) 08/22/17 16:05 Ur Squamous Epith Cells < 1 /hpf (0-5) 08/22/17 16:05 Urine Bacteria Rare (<OCC) 08/22/17 16:05 U Random Total Protein 271.0 mg/dL (0.0-12.0) H 08/24/17 07:36 Ur Random Sodium 36 mmol/L 08/23/17 18:25 Ur Random Potassium 11.7 mmol/L 08/23/17 18:25 Urine Chloride 37 mmol/L (32-290) 08/23/17 06:30 Urine Opiates Screen Negative (NEGATIVE) 08/22/17 16:05 Urine Methadone Screen Negative (NEGATIVE) 08/22/17 16:05 Ur Barbiturates Screen Negative (NEGATIVE) 08/22/17 16:05 Ur Phencyclidine Scrn Negative (NEGATIVE) 08/22/17 16:05 Ur Amphetamines Screen Negative (NEGATIVE) 08/22/17 16:05 U Benzodiazepines Scrn Negative (NEGATIVE) 08/22/17 16:05 U Oth Cocaine Metabols Negative (NEGATIVE) 08/22/17 16:05 U Cannabinoids Screen Negative (NEGATIVE) 08/22/17 16:05 Serum Ketones Negative (NEGATIVE) 08/22/17 15:20 - Hospital Course Hospital Course: Chief complaint: Fall and not responding 71 year old female with a PMHx of a pituitary gland tumor removal, Diabetes-IDDM , high cholesterol, HTN, and cardiac stent presents to the ED for evaluation 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 Fall was witnessed and patient was stated patient slid off of her couch and was not responding to family members. Family states no convulsive acts were witnessed but patient was frothing at the moment. Patient states she did eat this morning. As per EMS, patient had a low blood sugar en route to ED. Patient states she does not remember the event. Patient also notes she had an eye infection last week. Family denies head injury, vomiting, incontinence, headache, chest pain, or other complaints at this time. History present illness: 71-year-old female with history of diabetes hypertension and hypercholesteremia CAD coronary artery stenting renal insufficiency history of pituitary tumor, recently had surgical intervention. Patient is currently taking supplementation for cortisol, thyroid. Pt BIBA after a fall and witnessed by family. Pt fell and slid off her couch and not responding. There was no convulsions. but Frothing from mouth noted. While EMS noted blood sugar very low and given dextrose. IN ED her sugar again went low again and started on dextrose. now Blood sugar better and her low temp also started getting better. no chest pain no headache no nausea no vomiting. She is not eating well, poor appetite noted, denies any chest pain, no palpitation noted. But not feeling well at all. Postoperatively patient was being managed by the insurance solicitor. Currently on supplemental thyroid hormones as well as cortisol. Patient is having very highly elevated blood sugar recently. She is feeling also some dizziness, weakness, tiredness, easy fatigability. And skin also getting more darker Past medical history: Diabetes hypertension and hypercholesteremia CAD status post distended renal insufficiency, pituitary tumor removal. Patient had a left the eye droop which is improving Allergy: No known drug allergy Personal history: Nonsmoker nonalcoholic. Review of system: Complaining of headache, no nausea, but no vomiting noted, no chest pain, no palpitation, weakness tiredness present. Abdominal discomfort noted, left lower quadrant tenderness and pain noted. Also having episodes of diarrhea. Urinary discomfort noted. Incontinence present. No leg swelling On examination: Vital signs reviewed No neck vein distention noted, dry mucosa noted Chest good air entry bilaterally, no wheezing or rales noted CVS regular heart sound, no murmur noted Abdomen soft, nontender. Extremities no pedal edema DIRECTOR INTEGRATED alert awake oriented 3, no functional neurological deficit Hospital course: Initially patient become hypothermic, hypoglycemia. After intravenous dextrose, and also hyperthermia blanket patient's temperature improved. Patient become more alert and awake. During the stay in the hospital, multiple studies were done. Patient had evidence of pituitary gland deficiency, but not taking medication. Noncompliance with medication. Patient also not eating well. But after adjusting the medications patient is doing well. Final diagnosis hypoglycemia. Hypothermia. Altered mental status secondary to low blood sugar, but embolic. Hypertensive crisis. Renal insufficiency. CAD. Discharge Exam - Head Exam Head Exam: ATRAUMATIC, NORMAL INSPECTION Discharge Plan - Discharge Medications Prescriptions: Furosemide [Lasix] 20 mg PO DAILY #30 tab - Follow Up Plan Condition: GUARDED Disposition: HOME/ ROUTINE Instructions: Furosemide (By mouth), Diabetic Hypoglycemia (DC), Acute Hypothermia (DC), Hypernatremia (DC) Additional Instructions: FOLLOW UP WITH DR. BENAVIDES IN THE OFFICE WITHIN 1-2 WEEKS---CALL ON MONDAY TO MAKE AN APPT. FOLLOW UP WITH DR. JONAS AND/OR DR. MITCHELL IN THE OFFICE ALREADY SCHEDULED. FOLLOW UP WITH DR. MEDEIROS IN THE OFFICE ALREADY SCHEDULED. CONTINUE ALL HOME MEDICATIONS USUAL. LASIX DOSE HAS BEEN CHANGED---TAKE 20 MG ONCE A DAY RECOMMENDED BY THE KIDNEY DOCTOR. FOR ANY OTHER QUESTIONS OR CONCERNS, CONTACT DR. BENAVIDES'S OFFICE. Referrals: Kari Medeiros MD [Staff Provider] - Jean Jonas MD [Staff Provider] - Blu Yost MD [Staff Provider] - Renato Benavides MD [Staff Provider] -
--- NOTE | 2017-08-28 09:15 | PQF CVATIA ---
This form is a permanent part of the medical record Dr. Orlando, Please clarify if this patient had an Acute CVA. Also, on your H&P you documented possibly Urosepsis. Was the urosepsis rule IN? Please clarify. Clarification of your documentation is requested to better reflect the severity of illness and intensity of treatment of your patient. Indicators present: [x] Altered mental status [] Aphasia [] Dysphagia [] Dysphasia [] Facial droop/numbness [] Gait disturbance [] Hemiparesis/plegia [] Speech impairment [] Weakness [] Neuro Consult [] CT/MRI Findings [x] Other: [ NO CVA, no urosepsis at the end but had pneumonia aspiration] Location in the medical record that reflects the above clinical findings: [H and P] Treatment Provided: [antibiotics] PHYSICIAN'S RESPONSE Based on your medical judgment of the clinical indicators outlined above, are you treating this patient for a known or suspected: [] Acute Cerebrovascular Accident (CVA) Please specify type i.e.; embolic, hemorrhagic, ischemic. Please specify the artery involved if known. [] Transient Ischemic Accident (TIA) [] Prolonged reversible ischemic neurological disorder [] Other, please indicate: [] [] If unable to determine, please check the box, sign and date. Present On Admission (POA) Indicator: [] Present at the time of admission [] Not present at the time of admission [] Clinically Undetermined In responding to this query, please exercise your independent professional judgment. The fact that a question is asked does not imply that any particular answer is desired or expected. Thank you for your clarification on this documentation. 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
== END 2017-08-25 19:02 | disposition home or self-care (01) | DRG 638 ==
LOC: C.ER 14:28 → C.9E 17:46 → C.6T 20:56
PROVIDERS: ADMIT Internal Medicine; ATTEND Internal Medicine
DX: E11.649 Type 2 diabetes mellitus with hypoglycemia without coma (principal); E87.0 Hyperosmolality and hypernatremia; T68.XXXA Hypothermia, initial encounter; N18.4 Chronic kidney disease, stage 4 (severe); E23.0 Hypopituitarism; I16.9 Hypertensive crisis, unspecified; E11.21 Type 2 diabetes mellitus with diabetic nephropathy; R56.9 Unspecified convulsions; E87.5 Hyperkalemia; E11.22 Type 2 diabetes mellitus with diabetic chronic kidney disease; E66.9 Obesity, unspecified; H49.882 Other paralytic strabismus, left eye; G60.0 Hereditary motor and sensory neuropathy; E78.00 Pure hypercholesterolemia, unspecified; I12.9 Hypertensive chronic kidney disease with stage 1 through stage 4 chronic kidney disease, or unspecified chronic kidney disease; R19.7 Diarrhea, unspecified; I25.10 Atherosclerotic heart disease of native coronary artery without angina pectoris; R32 Unspecified urinary incontinence; Z91.14 Patient's other noncompliance with medication regimen; Z79.84 Long term (current) use of oral hypoglycemic drugs; Z95.5 Presence of coronary angioplasty implant and graft; Z86.39 Personal history of other endocrine, nutritional and metabolic disease; Z68.34 Body mass index [BMI] 34.0-34.9, adult

== ENCOUNTER 2018-01-29 08:56 | Inpatient (IN) | payer MEDICARE ==
[2018-01-29 08:56] VITALS: BMI 34.0
[2018-01-29 10:32] LABS: BASO # 0.1 K/uL (0.0-0.2); BASO % 0.9 % (0.0-2.0); EOS # 0.4 K/uL (0.0-0.7); EOS % 5.8 % (0.0-4.0); HEMOGLOBIN 10.4 g/dL (11.0-16.0); LYMPH # 1.9 K/uL (1.0-4.3); MEAN CELL VOLUME 79.8 fL (81.0-99.0); MEAN CORPUSCULAR HEMOGLOBIN 25.8 pg (27.0-31.0); MEAN CORPUSCULAR HGB CONC 32.4 g/dL (33.0-37.0); MEAN PLATELET VOLUME 9.3 fL (7.2-11.7); MONO # 0.9 K/uL (0.0-0.8); NEUT # 4.1 K/uL (1.8-7.0); NEUT % 55.3 % (50.0-75.0); RBC 4.04 Mil/uL (3.80-5.20); RED CELL DISTRIBUTION WIDTH 14.2 % (11.5-14.5); WHITE BLOOD COUNT 7.4 K/uL (4.8-10.8)
[2018-01-29 10:42] LABS: ALB/GLOB RATIO 1.1 (1.0-2.1); ALBUMIN 3.6 g/dL (3.5-5.0); CALCIUM 8.3 mg/dl (8.6-10.4)
--- NOTE | 2018-01-29 10:47 | RAD ---
PROCEDURE: CHEST RADIOGRAPH, 1 VIEW HISTORY: Chest pain COMPARISON: Comparison chest dated 08/22/2017. FINDINGS: LUNGS: Poor inspiration with low lung volumes, crowded bronchovascular markings and mild bibasilar atelectasis. The central pulmonary vasculature appears slightly increased as well. Small bilateral effusions not excluded. PLEURA: As above. No apparent pneumothorax. CARDIOVASCULAR: Heart is enlarged. OSSEOUS STRUCTURES: No significant abnormalities. VISUALIZED UPPER ABDOMEN: Normal. OTHER FINDINGS: None. IMPRESSION: Poor inspiration with low lung volumes, crowded bronchovascular markings and mild bibasilar atelectasis. The central pulmonary vasculature appears slightly increased as well. Small bilateral effusions not excluded. Cardiomegaly.
[2018-01-29 10:52] LABS: TROPONIN I 0.062 ng/mL (0.00-0.120)
--- NOTE | 2018-01-29 11:59 | C.PDOC ---
History Of Present Illness 72yo female with history of CHF, presents to ED with complaints of pressure like chest pain for the past week with associated nausea, shortness of breath and diaphoresis. She states the pain is non-radiating and denies any trauma injuries. She denies any weakness, numbness, and offers no other medical complaints. Time Seen by Provider: 01/29/18 09:48 Chief Complaint (Nursing): Chest Pain History Per: Patient History/Exam Limitations: no limitations Onset/Duration Of Symptoms: Days Current Symptoms Are (Timing): Still Present Quality: Pressure Associated Symptoms: Nausea, Diaphoresis Past Medical History Reviewed: Historical Data, Nursing Documentation, Vital Signs Vital Signs: Last Vital Signs Temp 98 F 01/29/18 12:27 Pulse 53 L 01/29/18 12:27 Resp 16 01/29/18 12:27 BP 149/55 L 01/29/18 12:27 Pulse Ox 100 01/29/18 12:56 - Medical History PMH: CAD, CHF, Diabetes, HTN, Hypercholesterolemia, Chronic Kidney Disease Surgical History: Coronary Stent (10/2015) - [facility] Procedures INDIVIDUAL PSYCHOTHERAPY, SUPPORTIVE (11/23/16) MEASURE OF CARDIAC SAMPL & PRESSURE, L HEART, PERC APPROACH (10/14/15) OTHER COUNSELING (11/23/16) PLAIN RADIOGRAPHY OF MULT COR ART USING L OSM CONTRAST (10/14/15) Family History: States: Diabetes - Social History Hx Tobacco Use: No Hx Alcohol Use: No Hx Substance Use: No - Immunization History Hx Tetanus Toxoid Vaccination: No Hx Influenza Vaccination: Yes Hx Pneumococcal Vaccination: Yes Review Of Systems Except As Marked, All Systems Reviewed And Found Negative. Constitutional: Positive for: Sweats. Negative for: Fever, Chills Cardiovascular: Positive for: Chest Pain Respiratory: Positive for: Shortness of Breath Gastrointestinal: Positive for: Nausea Physical Exam - Physical Exam Appears: Non-toxic, No Acute Distress Skin: Normal Color, Warm, Dry Head: Atraumatic, Normacephalic Eye(s): bilateral: Normal Inspection, PERRL Neck: Normal ROM, Supple Chest: Symmetrical Cardiovascular: Rhythm Regular Respiratory: Decreased Breath Sounds (bilaterally) Gastrointestinal/Abdominal: Normal Exam, Soft, No Tenderness Extremity: Pedal Edema (1+ pitting bilaterally) Neurological/Psych: Oriented x3 ED Course And Treatment - Laboratory Results Result Diagrams: 01/29/18 10:25 01/29/18 10:25 ECG: Interpreted By Me, Viewed By Me ECG Rhythm: Sinus Rhythm Interpretation Of ECG: Normal intervals, normal axis. Poor R wave progression. T wave inversion in 1 and AVL Rate From EC O2 Sat by Pulse Oximetry: 100 (RA) Pulse Ox Interpretation: Normal Medical Decision Making Medical Decision Making: Impression: Chest pain, CHF Plan: -- CXR -- Labs -- EKg -- Labetalol 20 mg IV Time: 1045 CXR FINDINGS: LUNGS: Poor inspiration with low lung volumes, crowded bronchovascular markings and mild bibasilar atelectasis. The central pulmonary vasculature appears slightly increased as well. Small bilateral effusions not excluded. PLEURA: As above. No apparent pneumothorax. CARDIOVASCULAR: Heart is enlarged. OSSEOUS STRUCTURES: No significant abnormalities. VISUALIZED UPPER ABDOMEN: Normal. OTHER FINDINGS: None. IMPRESSION: Poor inspiration with low lung volumes, crowded bronchovascular markings and mild bibasilar atelectasis. The central pulmonary vasculature appears slightly increased as well. Small bilateral effusions not excluded. Cardiomegaly. Time: [address] Orlando and patient to be admitted to telemetry due to chest pain and CHF. Disposition Discussed With : Renato Orlando Doctor Will See Patient In The: Hospital Counseled Patient/Family Regarding: Studies Performed, Diagnosis - Disposition Disposition: HOSPITALIZED Disposition Time: 11:59 Condition: FAIR - Clinical Impression Clinical Impression: Chest discomfort - Scribe Statement The provider has reviewed the documentation as recorded by the Scribe (Mabel Suazo) Provider Attestation: All medical record entries made by the Jodyibe were at my direction and personally dictated by me. I have reviewed the chart and agree that the record accurately reflects my personal performance of the history, physical exam, medical decision making, and the department course for this patient. I have also personally directed, reviewed, and agree with the discharge instructions and disposition.
[2018-01-29] MEDS ORDERED: Labetalol 5 mg/ml Inj 20ML IV STA (12:20)
[2018-01-29] MEDS ORDERED: Labetalol 25mg/5ml Syringe ONE (12:25)
--- NOTE | 2018-01-29 12:49 | CP.PCM.CON ---
History of Present Illness - History of Present Illness History of Present Illness: 72 y/o IF presents with increasing SMALL, orthopnea, CPs. BSs were very low this AM; CPs were more severe. Presented to ED with moderate CHF, severe HTN. Has HAD KNOWN CKD 4; possibly nephrotic in past PMH: CKD 4 DM 2 HTN CAD PROTEINURIA PSH: CARDIAC STENT 2015 Review of Systems - Constitutional Constitutional: Lethargy, Weakness - EENT Eyes: absent: As Per HPI, Blind Spots, Blurred Vision, Change in Vision, Decreased Night Vision, Diplopia, Discharge, Dry Eye, Exophthalmos, Floaters, Irritation, Itchy Eyes, Loss of Peripheral Vision, Pain, Photophobia, Requires Corrective Lenses, Sees Flashes, Spots in Vision, Tunnel Vision, Other Visual Disturbances, Loss of Vision, Other Ears: absent: As Per HPI, Decreased Hearing, Ear Discharge, Ear Pain, Tinnitus, Abnormal Hearing, Disequilibrium, Dizziness, Other Nose/Mouth/Throat: absent: As Per HPI, Epistaxis, Nasal Congestion, Nasal Discharge, Nasal Obstruction, Nasal Trauma, Nose Pain, Post Nasal Drip, Sinus Pain, Sinus Pressure, Bleeding Gums, Change in Voice, Dental Pain, Dry Mouth, Dysphagia, Halitosis, Hoarsness, Lip Swelling, Mouth Lesions, Mouth Pain, Odynophagia, Sore Throat, Throat Swelling, Tongue Swelling, Facial Pain, Neck Pain, Neck Mass, Other - Cardiovascular Cardiovascular: Chest Pain at Rest, Dyspnea on Exertion, Lightheadedness, Orthopnea, Pedal Edema - Respiratory Respiratory: Dyspnea on Exertion - Gastrointestinal Gastrointestinal: Nausea - Musculoskeletal Musculoskeletal: Muscle Cramps, Muscle Weakness, Myalgias - Neurological Neurological: Weakness - Endocrine Endocrine: Fatigue Past Patient History - Infectious Disease Hx of Infectious Diseases: None - Past Medical History & Family History Past Medical History?: Yes Past Family History: Reviewed and not pertinent - Past Social History Smoking Status: Never Smoked Chewing Tobacco Use: No Cigar Use: No Alcohol: None Drugs: Denies Home Situation {Lives}: With Family - CARDIAC Hx Hypercholesterolemia: Yes Hx Hypertension: Yes - PULMONARY Hx Respiratory Disorders: No - NEUROLOGICAL Hx Neurological Disorder: No Hx Dizziness: Yes - HEENT Hx HEENT Problems: Yes Other/Comment: left eye drooping-blurry due to DM - RENAL Hx Chronic Kidney Disease: Yes - ENDOCRINE/METABOLIC Hx Diabetes Mellitus Type 2: Yes - HEMATOLOGICAL/ONCOLOGICAL Hx Blood Disorders: No - INTEGUMENTARY Hx Dermatological Problems: No - MUSCULOSKELETAL/RHEUMATOLOGICAL Hx Falls: Yes - GASTROINTESTINAL Hx Gastrointestinal Disorders: No - GENITOURINARY/GYNECOLOGICAL Hx Genitourinary Disorders: No - PSYCHIATRIC Hx Substance Use: No - SURGICAL HISTORY Hx Coronary Stent: Yes (10/2015) - ANESTHESIA Hx Anesthesia: Yes Hx Anesthesia Reactions: No Hx Malignant Hyperthermia: No Meds Allergies/Adverse Reactions: Allergies Allergy/AdvReac Type Severity Reaction Status Date / Time No Known Allergies Allergy Verified 01/29/18 09:32 Physical Exam - Constitutional Appears: No Acute Distress, Chronically Ill - Head Exam Head Exam: ATRAUMATIC, NORMAL INSPECTION - Eye Exam Eye Exam: EOMI, Normal appearance - Neck Exam Neck exam: Positive for: Normal Inspection. Negative for: Tenderness - Respiratory Exam Respiratory Exam: Rales, Respiratory Distress - Cardiovascular Exam Cardiovascular Exam: REGULAR RHYTHM, +S1 - GI/Abdominal Exam GI & Abdominal Exam: Soft. absent: Tenderness - Extremities Exam Extremities exam: Positive for: normal inspection. Negative for: pedal edema - Neurological Exam Neurological exam: Alert, CN II-XII Intact - Skin Skin Exam: Dry, Warm Results - Vital Signs Recent Vital Signs: Last Vital Signs Temp 98 F 01/29/18 12:27 Pulse 53 L 01/29/18 12:27 Resp 16 01/29/18 12:27 BP 149/55 L 01/29/18 12:27 Pulse Ox 98 01/29/18 12:27 - Labs Result Diagrams: 01/29/18 10:25 01/29/18 10:25 Labs: Laboratory Results - last 24 hr 01/29/18 01/29/18 01/29/18 09:05 10:25 10:25 WBC 7.4 RBC 4.04 Hgb 10.4 L Hct 32.3 L MCV 79.8 L MCH 25.8 L MCHC 32.4 L RDW 14.2 Plt Count 223 MPV 9.3 Neut % (Auto) 55.3 Lymph % (Auto) 26.0 [place] % (Auto) 12.0 H Eos % (Auto) 5.8 H Baso % (Auto) 0.9 Neut # (Auto) 4.1 Lymph # (Auto) 1.9 [place] # (Auto) 0.9 H Eos # (Auto) 0.4 Baso # (Auto) 0.1 Sodium 137 Potassium 5.1 Chloride 100 Carbon Dioxide 25 Anion Gap 17 BUN 65 H Creatinine 3.1 H Est GFR ( Amer) 18 Est GFR (Non-Af Amer) 15 POC Glucose (mg/dL) 150 H Random Glucose 144 H Calcium 8.3 L Total Bilirubin 0.5 AST 54 H D ALT 41 Alkaline Phosphatase 102 Troponin I 0.0620 NT-Pro-B Natriuret Pep 2940 H Total Protein 6.8 Albumin 3.6 Globulin 3.2 Albumin/Globulin Ratio 1.1 Assessment & Plan (1) Type 2 diabetes mellitus with diabetic nephropathy Status: Acute (2) CAD (coronary artery disease) Status: Acute (3) Cardiomyopathy Status: Acute (4) Hypothyroidism Status: Acute (5) HTN (hypertension) Status: Acute (6) CKD (chronic kidney disease) stage 4, GFR 15-29 ml/min Status: Acute - Assessment and Plan (Free Text) Plan: IV lasix BP control quantify protein excretion rate cardio eval if needed if not better might eventually need [employer]ANSPLANT COORDINATOR
[2018-01-29 14:31] LABS: FERRITIN 24.8 ng/mL
[2018-01-29 17:35] LABS: BASO # 0.1 K/uL (0.0-0.2); BASO % 0.7 % (0.0-2.0); EOS # 0.5 K/uL (0.0-0.7); EOS % 6.2 % (0.0-4.0); HEMOGLOBIN 9.8 g/dL (11.0-16.0); LYMPH # 1.8 K/uL (1.0-4.3); LYMPH % 25.1 % (20.0-40.0); MEAN CELL VOLUME 79.8 fL (81.0-99.0); MEAN CORPUSCULAR HEMOGLOBIN 25.9 pg (27.0-31.0); MEAN CORPUSCULAR HGB CONC 32.5 g/dL (33.0-37.0); MEAN PLATELET VOLUME 8.9 fL (7.2-11.7); MONO # 0.7 K/uL (0.0-0.8); MONO % 9.5 % (0.0-10.0); NEUT # 4.3 K/uL (1.8-7.0); NEUT % 58.5 % (50.0-75.0); RBC 3.79 Mil/uL (3.80-5.20); RED CELL DISTRIBUTION WIDTH 14.4 % (11.5-14.5); WHITE BLOOD COUNT 7.4 K/uL (4.8-10.8)
[2018-01-29 19:04] LABS: SQUAMOUS EPITHIAL < 1 /hpf (0-5); URINE BACTERIA MANY (<OCC); URINE BILIRUBIN NEGATIVE (NEGATIVE); URINE BLOOD NEGATIVE (NEGATIVE); URINE CLARITY Clear (Clear); URINE COLOR Straw (YELLOW); URINE GLUCOSE (UA) 2+ mg/dL (Normal); URINE LEUKOCYTE ESTERASE TRACE Leu/uL (Negative); URINE PROTEIN 2+ mg/dL (NEGATIVE); URINE UROBILINOGEN NORMAL mg/dL (0.2-1.0)
--- NOTE | 2018-01-29 23:39 | CP.PCM.HP ---
Past Patient History - Infectious Disease Hx of Infectious Diseases: None - Past Medical History & Family History Past Medical History?: Yes - Past Social History Smoking Status: Never Smoked - CARDIAC Hx Congestive Heart Failure: Yes Hx Hypercholesterolemia: Yes Hx Hypertension: Yes - PULMONARY Hx Respiratory Disorders: No - NEUROLOGICAL Hx Neurological Disorder: No Hx Dizziness: Yes - HEENT Hx HEENT Problems: Yes Other/Comment: left eye drooping-blurry due to DM - RENAL Hx Chronic Kidney Disease: Yes - ENDOCRINE/METABOLIC Hx Diabetes Mellitus Type 2: Yes - HEMATOLOGICAL/ONCOLOGICAL Hx Blood Disorders: No - INTEGUMENTARY Hx Dermatological Problems: No - MUSCULOSKELETAL/RHEUMATOLOGICAL Hx Falls: Yes - GASTROINTESTINAL Hx Gastrointestinal Disorders: No - GENITOURINARY/GYNECOLOGICAL Hx Genitourinary Disorders: No - PSYCHIATRIC Hx Substance Use: No - SURGICAL HISTORY Hx Coronary Stent: Yes (10/2015) - ANESTHESIA Hx Anesthesia: Yes Hx Anesthesia Reactions: No Hx Malignant Hyperthermia: No Has any member of the family had a problem w/ anesthesia?: No Meds Allergies/Adverse Reactions: Allergies Allergy/AdvReac Type Severity Reaction Status Date / Time No Known Allergies Allergy Verified 01/29/18 09:32 Results - Vital Signs Recent Vital Signs: Last Vital Signs Temp 98.0 F 01/29/18 18:15 Pulse 67 01/29/18 18:15 Resp 20 01/29/18 18:15 BP 190/90 H 01/29/18 18:48 Pulse Ox 95 01/29/18 18:15 - Labs Result Diagrams: 01/29/18 17:31 01/29/18 10:25 Labs: Laboratory Results - last 24 hr 01/29/18 01/29/18 01/29/18 09:05 10:25 10:25 WBC 7.4 RBC 4.04 Hgb 10.4 L Hct 32.3 L MCV 79.8 L MCH 25.8 L MCHC 32.4 L RDW 14.2 Plt Count 223 MPV 9.3 Neut % (Auto) 55.3 Lymph % (Auto) 26.0 [place] % (Auto) 12.0 H Eos % (Auto) 5.8 H Baso % (Auto) 0.9 Neut # (Auto) 4.1 Lymph # (Auto) 1.9 [place] # (Auto) 0.9 H Eos # (Auto) 0.4 Baso # (Auto) 0.1 Sodium 137 Potassium 5.1 Chloride 100 Carbon Dioxide 25 Anion Gap 17 BUN 65 H Creatinine 3.1 H Est GFR ( Amer) 18 Est GFR (Non-Af Amer) 15 POC Glucose (mg/dL) 150 H Random Glucose 144 H Calcium 8.3 L Phosphorus 5.9 H % Saturation Ferritin 24.8 Total Bilirubin 0.5 AST 54 H D ALT 41 Alkaline Phosphatase 102 Troponin I 0.0620 NT-Pro-B Natriuret Pep 2940 H Total Protein 6.8 Albumin 3.6 Globulin 3.2 Albumin/Globulin Ratio 1.1 Urine Color Urine Clarity Urine pH Ur Specific [place] Urine Protein Urine Glucose (UA) Urine Ketones Urine Blood Urine Nitrate Urine Bilirubin Urine Urobilinogen Ur Leukocyte Esterase Urine WBC (Auto) Urine RBC (Auto) Ur Squamous Epith Cells Urine Bacteria 01/29/18 01/29/18 01/29/18 17:31 17:31 18:29 WBC 7.4 RBC 3.79 L Hgb 9.8 L Hct 30.3 L MCV 79.8 L MCH 25.9 L MCHC 32.5 L RDW 14.4 Plt Count 248 MPV 8.9 Neut % (Auto) 58.5 Lymph % (Auto) 25.1 [place] % (Auto) 9.5 Eos % (Auto) 6.2 H Baso % (Auto) 0.7 Neut # (Auto) 4.3 Lymph # (Auto) 1.8 [place] # (Auto) 0.7 Eos # (Auto) 0.5 Baso # (Auto) 0.1 Sodium Potassium Chloride Carbon Dioxide Anion Gap BUN Creatinine Est GFR ( Amer) Est GFR (Non-Af Amer) POC Glucose (mg/dL) 228 H Random Glucose Calcium Phosphorus % Saturation 17 L Ferritin Total Bilirubin AST ALT Alkaline Phosphatase Troponin I NT-Pro-B Natriuret Pep Total Protein Albumin Globulin Albumin/Globulin Ratio Urine Color Urine Clarity Urine pH Ur Specific [place] Urine Protein Urine Glucose (UA) Urine Ketones Urine Blood Urine Nitrate Urine Bilirubin Urine Urobilinogen Ur Leukocyte Esterase Urine WBC (Auto) Urine RBC (Auto) Ur Squamous Epith Cells Urine Bacteria 01/29/18 01/29/18 18:39 20:55 WBC RBC Hgb Hct MCV MCH MCHC RDW Plt Count MPV Neut % (Auto) Lymph % (Auto) [place] % (Auto) Eos % (Auto) Baso % (Auto) Neut # (Auto) Lymph # (Auto) [place] # (Auto) Eos # (Auto) Baso # (Auto) Sodium Potassium Chloride Carbon Dioxide Anion Gap BUN Creatinine Est GFR ( Amer) Est GFR (Non-Af Amer) POC Glucose (mg/dL) 275 H Random Glucose Calcium Phosphorus % Saturation Ferritin Total Bilirubin AST ALT Alkaline Phosphatase Troponin I NT-Pro-B Natriuret Pep Total Protein Albumin Globulin Albumin/Globulin Ratio Urine Color Straw Urine Clarity Clear Urine pH 6.0 Ur Specific [place] 1.006 Urine Protein 2+ H Urine Glucose (UA) 2+ H Urine Ketones Negative Urine Blood Negative Urine Nitrate Negative Urine Bilirubin Negative Urine Urobilinogen Normal Ur Leukocyte Esterase Trace Urine WBC (Auto) 31 H Urine RBC (Auto) < 1 Ur Squamous Epith Cells < 1 Urine Bacteria Many H
[2018-01-30] MEDS: Levothyroxine 50 MCG TAB PO SCH (05:56)
[2018-01-30 08:22] LABS: ALB/GLOB RATIO 1.1 (1.0-2.1); ALBUMIN 3.4 g/dL (3.5-5.0); CALCIUM 8.1 mg/dl (8.6-10.4)
[2018-01-30] MEDS ORDERED: Ergocalciferol 50,000 Intl Units Cap PO SCH (10:00)
--- NOTE | 2018-01-30 10:40 | CP.PCM.PN ---
Subjective - Date & Time of Evaluation Date of Evaluation: 01/30/18 Time of Evaluation: 10:37 - Subjective Subjective: seen and examined reports good uop, no dysuria hematuria. 24 hour collection ongoing no f/c//n/v/d/dizziness/cp/cough/headache improved breathing and leg swelling Objective - Vital Signs/Intake and Output Vital Signs (last 24 hours): Temp Pulse Resp BP Pulse Ox 97.9 F 57 L 20 155/69 H 99 01/30/18 08:09 01/30/18 08:09 01/30/18 08:09 01/30/18 09:43 01/30/18 08:09 Intake and Output: 01/30/18 01/30/18 06:59 18:59 Intake Total 490 Balance 490 - Medications Medications: Current Medications Aspirin (Ecotrin) 81 mg PO DAILY [facility] Last Admin: 01/30/18 09:46 Dose: 81 mg Carvedilol (Coreg) 12.5 mg PO BID [facility] Last Admin: 01/30/18 08:16 Dose: 12.5 mg Ergocalciferol (Drisdol 50,000 Intl Units Cap) 1 cap PO Q7D [facility] Last Admin: 01/30/18 09:46 Dose: 1 cap Furosemide (Lasix) 40 mg IVP DAILY [facility] Last Admin: 01/30/18 09:43 Dose: 40 mg Hydralazine HCl (Apresoline) 50 mg PO TID [facility] Last Admin: 01/30/18 09:46 Dose: 50 mg Hydrocortisone (Cortef) 10 mg PO BID [facility] Last Admin: 01/30/18 09:45 Dose: 10 mg Insulin Human Regular (Novolin R) 0 unit SC [facility] PRN Reason: Protocol Isosorbide Mononitrate (Imdur) 60 mg PO DAILY [facility] Last Admin: 01/30/18 09:45 Dose: 60 mg Levothyroxine Sodium (Synthroid) 50 mcg PO DAILY@0630 [facility] Last Admin: 01/30/18 05:56 Dose: 50 mcg Rosuvastatin Calcium (Crestor) 10 mg PO HS [facility] Last Admin: 01/29/18 21:00 Dose: 10 mg - Labs Labs: 01/29/18 17:31 01/30/18 07:56 - Constitutional Appears: No Acute Distress, Chronically Ill - Head Exam Head Exam: NORMAL INSPECTION, NORMOCEPHALIC - Eye Exam Eye Exam: Normal appearance, PERRL - ENT Exam ENT Exam: Mucous Membranes Moist, Normal Exam - Respiratory Exam Respiratory Exam: Decreased Breath Sounds, NORMAL BREATHING PATTERN - Cardiovascular Exam Cardiovascular Exam: REGULAR RHYTHM, RRR - GI/Abdominal Exam GI & Abdominal Exam: Distended, Soft - Extremities Exam Extremities Exam: Full ROM, Pedal Edema - Neurological Exam Neurological Exam: Alert, Awake, Oriented x3 - Psychiatric Exam Psychiatric exam: Normal Affect, Normal Mood - Skin Skin Exam: Intact Assessment and Plan (1) CAD (coronary artery disease) Status: Acute (2) Cardiomyopathy Status: Acute (3) HTN (hypertension) Status: Acute (4) Type 2 diabetes mellitus with diabetic nephropathy Status: Acute (5) CKD stage 4 due to type 2 diabetes mellitus Status: Acute - Assessment and Plan (Free Text) Assessment: maintain iv lasix follow creat clearance daily chems increase hydralazine dose to 75 mg tid
--- NOTE | 2018-01-30 12:23 | CARD ---
APPROVED REPORT EKG Measurement Heart [id number] <Conclusion> Normal sinus rhythm Low voltage QRS Poor R wave progression Abnormal ECG
[2018-01-30] MEDS: (Novolin R) Insulin Human Regular 100 units/ml vial SC SCH ×3 (12:30→21:20)
[2018-01-31] MEDS: Levothyroxine 50 MCG TAB PO SCH (05:46)
--- NOTE | 2018-01-31 06:24 | CP.PCM.CON ---
History of Present Illness - History of Present Illness History of Present Illness: Patient seen and evaluated complains of chest pain Trops negative Significant risk factors For stress test in am Past Patient History - Infectious Disease Hx of Infectious Diseases: None - Past Medical History & Family History Past Medical History?: Yes - Past Social History Smoking Status: Never Smoked - CARDIAC Hx Congestive Heart Failure: Yes Hx Hypertension: Yes - PULMONARY Hx Respiratory Disorders: No - NEUROLOGICAL Hx Neurological Disorder: No Hx Dizziness: Yes - HEENT Hx HEENT Problems: Yes Other/Comment: left eye drooping-blurry due to DM - RENAL Hx Chronic Kidney Disease: Yes - ENDOCRINE/METABOLIC Hx Diabetes Mellitus Type 2: Yes - HEMATOLOGICAL/ONCOLOGICAL Hx Blood Disorders: No - INTEGUMENTARY Hx Dermatological Problems: No - MUSCULOSKELETAL/RHEUMATOLOGICAL Hx Falls: Yes - GASTROINTESTINAL Hx Gastrointestinal Disorders: No - GENITOURINARY/GYNECOLOGICAL Hx Genitourinary Disorders: No - PSYCHIATRIC Hx Substance Use: No - SURGICAL HISTORY Hx Coronary Stent: Yes (10/2015) - ANESTHESIA Hx Anesthesia: Yes Hx Anesthesia Reactions: No Hx Malignant Hyperthermia: No Has any member of the family had a problem w/ anesthesia?: No Meds Allergies/Adverse Reactions: Allergies Allergy/AdvReac Type Severity Reaction Status Date / Time No Known Allergies Allergy Verified 01/29/18 09:32 - Medications Medications: Current Medications Aspirin (Ecotrin) 81 mg PO DAILY [facility] Last Admin: 01/30/18 09:46 Dose: 81 mg Carvedilol (Coreg) 12.5 mg PO BID [facility] Last Admin: 01/30/18 17:29 Dose: 12.5 mg Ergocalciferol (Drisdol 50,000 Intl Units Cap) 1 cap PO Q7D [facility] Last Admin: 01/30/18 09:46 Dose: 1 cap Furosemide (Lasix) 40 mg IVP DAILY [facility] Last Admin: 01/30/18 09:43 Dose: 40 mg Hydralazine HCl (Apresoline) 75 mg PO TID [facility] Last Admin: 01/30/18 17:39 Dose: Not Given Hydrocortisone (Cortef) 10 mg PO BID [facility] Last Admin: 01/30/18 17:31 Dose: 10 mg Insulin Human Regular (Novolin R) 0 unit SC ACHS [facility] PRN Reason: Protocol Last Admin: 01/30/18 21:20 Dose: 2 unit Isosorbide Mononitrate (Imdur) 60 mg PO DAILY [facility] Last Admin: 01/30/18 09:45 Dose: 60 mg Levothyroxine Sodium (Synthroid) 50 mcg PO DAILY@0630 [facility] Last Admin: 01/31/18 05:46 Dose: 50 mcg Rosuvastatin Calcium (Crestor) [address] [facility] Last Admin: 01/30/18 21:20 Dose: 10 mg Results - Vital Signs Recent Vital Signs: Last Vital Signs Temp 98.8 F 01/30/18 23:30 Pulse 62 01/31/18 04:10 Resp 20 01/30/18 23:30 BP 163/65 H 01/30/18 23:30 Pulse Ox 98 01/30/18 23:30 - Labs Result Diagrams: 01/29/18 17:31 01/30/18 07:56 Labs: Laboratory Results - last 24 hr 01/29/18 01/30/18 01/30/18 13:58 06:08 07:56 Sodium 138 Potassium 4.5 Chloride 99 Carbon Dioxide 27 Anion Gap 17 BUN 61 H Creatinine 3.2 H Est GFR ( Amer) 17 Est GFR (Non-Af Amer) 14 POC Glucose (mg/dL) 219 H Random Glucose 144 H Calcium 8.1 L Total Bilirubin 0.5 AST 31 ALT 35 Alkaline Phosphatase 107 Total Protein 6.4 Albumin 3.4 L Globulin 3.0 Albumin/Globulin Ratio 1.1 PTH Intact Whole Molec 371 H 01/30/18 01/30/18 01/30/18 11:13 16:24 21:15 Sodium Potassium Chloride Carbon Dioxide Anion Gap BUN Creatinine Est GFR ( Amer) Est GFR (Non-Af Amer) POC Glucose (mg/dL) 308 H 332 H 399 H Random Glucose Calcium Total Bilirubin AST ALT Alkaline Phosphatase Total Protein Albumin Globulin Albumin/Globulin Ratio PTH Intact Whole Molec
--- NOTE | 2018-01-31 07:24 | CP.PCM.PN ---
<Yariel Green - Last Filed: 01/31/18 18:55> Subjective - Date & Time of Evaluation Date of Evaluation: 01/31/18 Time of Evaluation: 07:09 - Subjective Subjective: PGY-[address] Wagoner's Cardiology Service: Pt seen and examined at bedside. Nursing reports no acute events overnight. Patient for stress test this AM. Improved chest pain, less SOB vs last night. Objective - Vital Signs/Intake and Output Vital Signs (last 24 hours): Temp Pulse Resp BP Pulse Ox 98.1 F 60 20 164/69 H 98 01/31/18 04:15 01/31/18 04:15 01/31/18 04:15 01/31/18 04:15 01/31/18 04:15 Intake and Output: 01/31/18 01/31/18 06:59 18:59 Intake Total 220 Balance 220 - Medications Medications: Current Medications Aspirin (Ecotrin) 81 mg PO DAILY [facility] Last Admin: 01/30/18 09:46 Dose: 81 mg Carvedilol (Coreg) 12.5 mg PO BID [facility] Last Admin: 01/30/18 17:29 Dose: 12.5 mg Ergocalciferol (Drisdol 50,000 Intl Units Cap) 1 cap PO Q7D [facility] Last Admin: 01/30/18 09:46 Dose: 1 cap Furosemide (Lasix) 40 mg IVP DAILY [facility] Last Admin: 01/30/18 09:43 Dose: 40 mg Hydralazine HCl (Apresoline) 75 mg PO TID [facility] Last Admin: 01/30/18 17:39 Dose: Not Given Hydrocortisone (Cortef) 10 mg PO BID [facility] Last Admin: 01/30/18 17:31 Dose: 10 mg Insulin Human Regular (Novolin R) 0 unit SC [facility] PRN Reason: Protocol Last Admin: 01/30/18 21:20 Dose: 2 unit Isosorbide Mononitrate (Imdur) 60 mg PO DAILY [facility] Last Admin: 01/30/18 09:45 Dose: 60 mg Levothyroxine Sodium (Synthroid) 50 mcg PO DAILY@0630 [facility] Last Admin: 01/31/18 05:46 Dose: 50 mcg Rosuvastatin Calcium (Crestor) 10 mg PO HS [facility] Last Admin: 01/30/18 21:20 Dose: 10 mg - Labs Labs: 01/29/18 17:31 01/30/18 07:56 - Constitutional Appears: No Acute Distress - Head Exam Head Exam: ATRAUMATIC, NORMAL INSPECTION - Eye Exam Eye Exam: EOMI. absent: Scleral icterus - ENT Exam ENT Exam: Normal Exam - Neck Exam Neck Exam: Normal Inspection - Respiratory Exam Respiratory Exam: Clear to Ausculation Bilateral, NORMAL BREATHING PATTERN - Cardiovascular Exam Cardiovascular Exam: REGULAR RHYTHM, +S1, +S2 - GI/Abdominal Exam GI & Abdominal Exam: Soft, Normal Bowel Sounds - Extremities Exam Extremities Exam: Pedal Edema - Back Exam Back Exam: absent: CVA tenderness (L), CVA tenderness (R) - Neurological Exam Neurological Exam: Alert, Awake, Oriented x3 - Psychiatric Exam Psychiatric exam: Normal Mood - Skin Skin Exam: Intact Assessment and Plan - Assessment and Plan (Free Text) Plan: Chest pain, R/O ACS Observe on Tele Trops negative x 1 EKG (01/30/18): 62 bpm, NSR, Low voltage QRS, Poor R wave progression Risk factors: T2DM, CAD, HTN, CKD For stress test this AM Cardiac Cath (10/2015): Two-vessel CAD ASA 81mg PO Daily Coreg 12.5mg PO BID Crestor 10mg PO HS CHF exacerbation (chronic diastolic dysfunction) BNP 2940 ECHO (08/2017): EF 70%, mild concentric LVH, LV systolic function normal; Diastolic dysfunction - abnormal Lasix 40mg IV Daily CAD Stent placement 2015 ASA 81mg PO Daily Coreg 12.5mg PO BID HTN Coreg 12.5mg PO BID Hydralazine 75mg PO TID Imdur 60mg Daily Yariel Green PGY-2 D/w Dr. Wagoner <Jimmy Wagoner - Last Filed: 01/31/18 23:31> Objective - Vital Signs/Intake and Output Vital Signs (last 24 hours): Temp Pulse Resp BP Pulse Ox 97.9 F 68 20 154/84 H 98 01/31/18 15:30 01/31/18 15:45 01/31/18 15:30 01/31/18 17:47 01/31/18 15:30 - Medications Medications: Current Medications Aspirin (Ecotrin) 81 mg PO DAILY [facility] Last Admin: 01/31/18 11:00 Dose: Not Given Calcitriol (Rocaltrol) 0.25 mcg PO DAILY [facility] Carvedilol (Coreg) 12.5 mg PO BID [facility] Last Admin: 01/31/18 17:47 Dose: 12.5 mg Ergocalciferol (Drisdol 50,000 Intl Units Cap) 1 cap PO Q7D [facility] Last Admin: 01/30/18 09:46 Dose: 1 cap Ferric Sodium Gluconate Complex (Ferrlecit) 125 mg IVPB DAILY [facility] Stop: 02/09/18 10:01 Furosemide (Lasix) 40 mg IVP DAILY [facility] Last Admin: 01/31/18 11:00 Dose: Not Given Hydralazine HCl (Apresoline) 75 mg PO TID [facility] Last Admin: 01/31/18 17:47 Dose: 75 mg Hydrocortisone (Cortef) 10 mg PO BID [facility] Last Admin: 01/31/18 17:55 Dose: 10 mg Insulin Human Regular (Novolin R) 0 unit SC ACHS [facility] PRN Reason: Protocol Last Admin: 01/31/18 21:25 Dose: 2 unit Isosorbide Mononitrate (Imdur) 60 mg PO DAILY [facility] Last Admin: 01/31/18 11:00 Dose: Not Given Levothyroxine Sodium (Synthroid) 50 mcg PO DAILY@0630 [facility] Last Admin: 01/31/18 05:46 Dose: 50 mcg Rosuvastatin Calcium (Crestor) 10 mg PO HS [facility] Last Admin: 01/31/18 21:25 Dose: 10 mg - Labs Labs: 01/29/18 17:31 01/31/18 11:13 Assessment and Plan - Assessment and Plan (Free Text) Plan: Patient seen and evaluated personally by mo Plan of care d/w the biomedical engineering supervisor and as documented Stress test: Normal Medical management
[2018-01-31] MEDS: (Novolin R) Insulin Human Regular 100 units/ml vial SC SCH ×4 (08:27→21:25)
[2018-01-31 09:02] LABS: URINE 24 HOUR TOTAL PROTEIN 8609.5 mg/24hr (42-225)
[2018-01-31 11:45] LABS: ALB/GLOB RATIO 1.2 (1.0-2.1); ALBUMIN 3.4 g/dL (3.5-5.0)
--- NOTE | 2018-01-31 14:40 | CP.PCM.PN ---
Subjective - Date & Time of Evaluation Date of Evaluation: 01/31/18 Time of Evaluation: 14:37 - Subjective Subjective: Has been less dyspneic + nephrotic range proteinuria BP better controlled UO not recorded creat about same despite diuresis undergoing EST Objective - Vital Signs/Intake and Output Vital Signs (last 24 hours): Temp Pulse Resp BP Pulse Ox 98.2 F 68 20 126/69 95 01/31/18 09:35 01/31/18 09:35 01/31/18 09:35 01/31/18 09:35 01/31/18 09:35 Intake and Output: 01/31/18 01/31/18 06:59 18:59 Intake Total 220 Balance 220 - Medications Medications: Current Medications Aspirin (Ecotrin) 81 mg PO DAILY [facility] Last Admin: 01/31/18 11:00 Dose: Not Given Carvedilol (Coreg) 12.5 mg PO BID [facility] Last Admin: 01/31/18 10:59 Dose: Not Given Ergocalciferol (Drisdol 50,000 Intl Units Cap) 1 cap PO Q7D [facility] Last Admin: 01/30/18 09:46 Dose: 1 cap Furosemide (Lasix) 40 mg IVP DAILY [facility] Last Admin: 01/31/18 11:00 Dose: Not Given Hydralazine HCl (Apresoline) 75 mg PO TID [facility] Last Admin: 01/31/18 10:59 Dose: Not Given Hydrocortisone (Cortef) 10 mg PO BID [facility] Last Admin: 01/31/18 11:00 Dose: Not Given Insulin Human Regular (Novolin R) 0 unit SC [facility] PRN Reason: Protocol Last Admin: 01/31/18 14:05 Dose: 5 unit Isosorbide Mononitrate (Imdur) 60 mg PO DAILY [facility] Last Admin: 01/31/18 11:00 Dose: Not Given Levothyroxine Sodium (Synthroid) 50 mcg PO DAILY@0630 [facility] Last Admin: 01/31/18 05:46 Dose: 50 mcg Rosuvastatin Calcium (Crestor) 10 mg PO HS [facility] Last Admin: 01/30/18 21:20 Dose: 10 mg - Labs Labs: 01/29/18 17:31 01/31/18 11:13 - Constitutional Appears: No Acute Distress, Chronically Ill - Head Exam Head Exam: ATRAUMATIC, NORMAL INSPECTION - Eye Exam Eye Exam: EOMI, Normal appearance - Neck Exam Neck Exam: Normal Inspection. absent: Tenderness - Respiratory Exam Respiratory Exam: Clear to Ausculation Bilateral, NORMAL BREATHING PATTERN - Cardiovascular Exam Cardiovascular Exam: REGULAR RHYTHM, +S1 - GI/Abdominal Exam GI & Abdominal Exam: Soft. absent: Tenderness - Extremities Exam Extremities Exam: Pedal Edema. absent: Tenderness - Neurological Exam Neurological Exam: Awake, CN II-XII Intact - Skin Skin Exam: Dry, Warm Assessment and Plan (1) Type 2 diabetes mellitus with diabetic nephropathy Status: Acute (2) CAD (coronary artery disease) Status: Acute (3) Cardiomyopathy Status: Acute (4) Hypothyroidism Status: Acute (5) HTN (hypertension) Status: Acute (6) CKD (chronic kidney disease) stage 4, GFR 15-29 ml/min Status: Acute - Assessment and Plan (Free Text) Plan: Add IV Fe as TSAT low Same diuresis Await EST results Monitor BP
--- NOTE | 2018-01-31 23:09 | CP.PCM.PN ---
Subjective - Date & Time of Evaluation Date of Evaluation: 01/31/18 Time of Evaluation: 23:08 - Subjective Subjective: pt is c/o pain feeling less sob eating ok spoke to cardio will plan stress test Objective - Vital Signs/Intake and Output Vital Signs (last 24 hours): Temp Pulse Resp BP Pulse Ox 97.9 F 68 20 154/84 H 98 01/31/18 15:30 01/31/18 15:45 01/31/18 15:30 01/31/18 17:47 01/31/18 15:30 - Medications Medications: Current Medications Aspirin (Ecotrin) 81 mg PO DAILY [facility] Last Admin: 01/31/18 11:00 Dose: Not Given Calcitriol (Rocaltrol) 0.25 mcg PO DAILY [facility] Carvedilol (Coreg) 12.5 mg PO BID [facility] Last Admin: 01/31/18 17:47 Dose: 12.5 mg Ergocalciferol (Drisdol 50,000 Intl Units Cap) 1 cap PO Q7D [facility] Last Admin: 01/30/18 09:46 Dose: 1 cap Ferric Sodium Gluconate Complex (Ferrlecit) 125 mg IVPB DAILY [facility] Stop: 02/09/18 10:01 Furosemide (Lasix) 40 mg IVP DAILY [facility] Last Admin: 01/31/18 11:00 Dose: Not Given Hydralazine HCl (Apresoline) 75 mg PO TID [facility] Last Admin: 01/31/18 17:47 Dose: 75 mg Hydrocortisone (Cortef) 10 mg PO BID [facility] Last Admin: 01/31/18 17:55 Dose: 10 mg Insulin Human Regular (Novolin R) 0 unit SC [facility] PRN Reason: Protocol Last Admin: 01/31/18 21:25 Dose: 2 unit Isosorbide Mononitrate (Imdur) 60 mg PO DAILY [facility] Last Admin: 01/31/18 11:00 Dose: Not Given Levothyroxine Sodium (Synthroid) 50 mcg PO DAILY@0630 [facility] Last Admin: 01/31/18 05:46 Dose: 50 mcg Rosuvastatin Calcium (Crestor) 10 mg PO HS [facility] Last Admin: 01/31/18 21:25 Dose: 10 mg - Labs Labs: 01/29/18 17:31 01/31/18 11:13
--- NOTE | 2018-01-31 23:35 | CARD ---
APPROVED REPORT Protocol: LEXISCAN Test Type: LEXISCAN STRESS Test Indications: CHEST PAIN Medical History: CP Target HR: 150 bpm Resting ECG: SINUS BRADYCARDIA Resting Heart Rate: 52 bpm Resting Blood Pressure: 140/80mmHg submaximum (85%): 128 bpm TEST SUMMARY [id number]:01..1.062/.0. PREINFSNHYPERV.04:[id number]/80.0. INFUSIONDOSE 100:300.00.01.052/.0. QLGIHDRNH50:[id number]/80.0. PROCEDURE Pharmacologic stress testing was performed using 0.4mg per 5ml of regadenoson given intravenously over 7-10 seconds. Reversal agent aminophyline 100 mg, given intravenously for Headache. POST EXERCISE Reason for Termination: Protocol Completed Target HR: No Max HR: 52 bpm 47% of Maximum Predicted HR: 150 bpm Exercise duration: 00:30 min:sec, 0 Stage Exercise capacity: 1.0METs Max Blood Pressure: 140/80mmHg Blood Pressure response to exercise: normal resting BP - appropriate response Heart Rate response to exercise: appropriate Chest Pain: No, none Angina index: 0 Arrhythmia: No, none ST Change: No, none Deviation: 0 mm INTERPRETATION Stress EKG Conclusion: NEGATIVE LEXISCAN STRESS TEST NORMAL BP RESPONSE TO LEXISCAN NUCLEAR STUDIES TO BE READ SEPARATELY EXAM: Myocardial Perfusion STRESS/REST Imaging Protocol The imaging protocol used to acquire images was Rest Tc-99m/stress Tc-99m 1 day Stress Spect myocardial perfusion imaging was performed in supine position 45 minutes following the injection of 12.9 mCi of Tc-99 Myoview. Gated Rest Spect was performed 40 minutes after intravenous 30.1 mCi Tc-99 Myoview injection. The images were gated to evaluate regional wall motion and calculate ventricular ejection fraction.Images were reconstructed using backfilter projection method in short horizontal and verticle long axis. Spect slices were generated. RESTING DATA EDV75.10qeVJ5.70L/min ESV19.00mlMyocardial Ewfc556.00g Av. Heart Rate66.00bpm EF75.00% STRESS DATA EDV74.17vsKO1.50L/min ESV19.00mlMyocardial Gjjs793.00g EF74.00% Regional WT score at stress:0.00 Regional WM score at stress:0.00 Summed WT score at stress:2.00 Av. Heart Rate64.00bpmSummed WM score at stress:3.00 LV Perf. Quant 17 Seg. SSS5.00 17 Seg. SRS3.00 17 Seg. SDS2.00 Stress Defect Extent (% LAD)11.30Rest Defect Extent (% LAD)1.90Rev. Defect Extent (% LAD)10.00 Stress Defect Extent (% LCX)13.80Rest Defect Extent (% LCX)10.00Rev. Defect Extent (% LCX)0.00 Stress Defect Extent (% RCA)0.00Rest Defect Extent (% RCA)0.00Rev. Defect Extent (% RCA)0.00 Stress Defect Extent (% BRITTNEY)11.50Rest Defect Extent (% BRITTNEY)5.70Rev. Defect Extent (% BRITTNEY)5.20 Other Information Quality:Good IMPRESSION Normal Myocardial Perfusion exercise stress study Left Ventricle LV Function:Left ventricle systolic function is normal. The Ejection Fraction is >55%. Conclusion 1. Normal Lexiscan nuclear stress test. Normal EF
[2018-02-01] MEDS: Levothyroxine 50 MCG TAB PO SCH (05:45)
[2018-02-01 07:41] LABS: ALB/GLOB RATIO 1.1 (1.0-2.1); ALBUMIN 3.5 g/dL (3.5-5.0); CALCIUM 8.2 mg/dl (8.6-10.4)
[2018-02-01 08:01] VITALS: TEMP 98.1
[2018-02-01] MEDS: (Novolin R) Insulin Human Regular 100 units/ml vial SC SCH ×3 (08:53→18:12)
[2018-02-01] MEDS ORDERED: Ferric Sodium Gluconat Complex 62.5 mg/5 ml Vial IVPB SCH (10:00)
--- NOTE | 2018-02-01 10:40 | CP.PCM.PN ---
Subjective - Date & Time of Evaluation Date of Evaluation: 02/01/18 Time of Evaluation: 10:37 - Subjective Subjective: alert; feels better less dyspneic s/p cardiac testing0- await results creat about same BP elevated despite meds Objective - Vital Signs/Intake and Output Vital Signs (last 24 hours): Temp Pulse Resp BP Pulse Ox 98.1 F 58 L 18 179/78 H 96 02/01/18 07:05 02/01/18 07:05 02/01/18 07:05 02/01/18 09:16 02/01/18 07:05 Intake and Output: 02/01/18 02/01/18 06:59 18:59 Intake Total 240 Balance 240 - Medications Medications: Current Medications Aspirin (Ecotrin) 81 mg PO DAILY [facility] Last Admin: 02/01/18 09:15 Dose: 81 mg Calcitriol (Rocaltrol) 0.25 mcg PO DAILY [facility] Last Admin: 02/01/18 09:37 Dose: 0.25 mcg Carvedilol (Coreg) 12.5 mg PO BID [facility] Last Admin: 02/01/18 09:16 Dose: 12.5 mg Ergocalciferol (Drisdol 50,000 Intl Units Cap) 1 cap PO Q7D [facility] Last Admin: 01/30/18 09:46 Dose: 1 cap Ferric Sodium Gluconate Complex (Ferrlecit) 125 mg IVPB DAILY [facility] Stop: 02/09/18 10:01 Last Admin: 02/01/18 09:37 Dose: 125 mg Furosemide (Lasix) 40 mg IVP DAILY [facility] Last Admin: 02/01/18 09:14 Dose: 40 mg Hydralazine HCl (Apresoline) 75 mg PO TID [facility] Last Admin: 02/01/18 09:14 Dose: 75 mg Hydrocortisone (Cortef) 10 mg PO BID [facility] Last Admin: 02/01/18 09:16 Dose: 10 mg Insulin Human Regular (Novolin R) 0 unit SC [facility] PRN Reason: Protocol Last Admin: 02/01/18 08:53 Dose: 3 unit Isosorbide Mononitrate (Imdur) 60 mg PO DAILY [facility] Last Admin: 02/01/18 09:14 Dose: 60 mg Levothyroxine Sodium (Synthroid) 50 mcg PO DAILY@0630 [facility] Last Admin: 02/01/18 05:45 Dose: 50 mcg Rosuvastatin Calcium (Crestor) 10 mg PO HS [facility] Last Admin: 01/31/18 21:25 Dose: 10 mg - Labs Labs: 01/29/18 17:31 02/01/18 06:45 - Constitutional Appears: No Acute Distress, Chronically Ill - Head Exam Head Exam: ATRAUMATIC, NORMAL INSPECTION - Eye Exam Eye Exam: EOMI, Normal appearance - Neck Exam Neck Exam: Normal Inspection. absent: Tenderness - Respiratory Exam Respiratory Exam: Clear to Ausculation Bilateral, NORMAL BREATHING PATTERN - Cardiovascular Exam Cardiovascular Exam: REGULAR RHYTHM, +S1 - GI/Abdominal Exam GI & Abdominal Exam: Soft. absent: Tenderness - Extremities Exam Extremities Exam: Normal Inspection. absent: Tenderness - Neurological Exam Neurological Exam: Alert, CN II-XII Intact - Skin Skin Exam: Dry, Warm Assessment and Plan (1) Type 2 diabetes mellitus with diabetic nephropathy Status: Acute (2) CAD (coronary artery disease) Status: Acute (3) Cardiomyopathy Status: Acute (4) Hypothyroidism Status: Acute (5) HTN (hypertension) Status: Acute (6) CKD (chronic kidney disease) stage 4, GFR 15-29 ml/min Status: Acute - Assessment and Plan (Free Text) Plan: increase BP meds avoiding FRIDA I due to advanced renal dysfunction can consider switch to oral diuretics soon
--- NOTE | 2018-02-01 15:23 | CP.PCM.PN ---
Subjective - Date & Time of Evaluation Date of Evaluation: 02/01/18 Time of Evaluation: 11:00 - Subjective Subjective: Patient seen today , states feels better , sob improved , denies any chest pain , sob, abdominal pain ,N//V /D, wants to go home S/P stress test yesterday - Normal myocardial perfusion exercise stress study- EF>55% CR- base line Objective - Vital Signs/Intake and Output Vital Signs (last 24 hours): Temp Pulse Resp BP Pulse Ox 98.1 F 58 L 18 179/78 H 96 02/01/18 07:05 02/01/18 07:05 02/01/18 07:05 02/01/18 09:16 02/01/18 07:05 Intake and Output: 02/01/18 02/01/18 06:59 18:59 Intake Total 240 380 Balance 240 380 - Medications Medications: Current Medications Aspirin (Ecotrin) 81 mg PO DAILY [facility] Last Admin: 02/01/18 09:15 Dose: 81 mg Calcitriol (Rocaltrol) 0.25 mcg PO DAILY [facility] Last Admin: 02/01/18 09:37 Dose: 0.25 mcg Carvedilol (Coreg) 12.5 mg PO BID [facility] Last Admin: 02/01/18 11:30 Dose: Not Given Ergocalciferol (Drisdol 50,000 Intl Units Cap) 1 cap PO Q7D [facility] Last Admin: 01/30/18 09:46 Dose: 1 cap Ferric Sodium Gluconate Complex (Ferrlecit) 125 mg IVPB DAILY [facility] Stop: 02/09/18 10:01 Last Admin: 02/01/18 09:37 Dose: 125 mg Furosemide (Lasix) 40 mg IVP DAILY [facility] Last Admin: 02/01/18 09:14 Dose: 40 mg Hydralazine HCl (Apresoline) 100 mg PO TID [facility] Last Admin: 02/01/18 14:20 Dose: 100 mg Hydrocortisone (Cortef) 10 mg PO BID [facility] Last Admin: 02/01/18 09:16 Dose: 10 mg Insulin Human Regular (Novolin R) 0 unit SC ACHS [facility] PRN Reason: Protocol Last Admin: 02/01/18 12:44 Dose: 5 unit Isosorbide Mononitrate (Imdur) 60 mg PO DAILY [facility] Last Admin: 05/03/18 09:14 Dose: 60 mg Levothyroxine Sodium (Synthroid) 50 mcg PO DAILY@0630 [facility] Last Admin: 02/01/18 05:45 Dose: 50 mcg Rosuvastatin Calcium (Crestor) 10 mg PO HS [facility] Last Admin: 01/31/18 21:25 Dose: 10 mg - Labs Labs: 01/29/18 17:31 02/01/18 06:45 Assessment and Plan - Assessment and Plan (Free Text) Assessment: A/P 72 yr old female , with pmhx CAD, CHF, Diabetes, HTN, Hypercholesterolemia, Chronic Kidney Disease,admitted with chest pain , sob troponin x 2 - negative stress test - negative with EF>55% cr- baseline- 3<3.2_3.2 D/W Dr. Segundo , cleared fro discharge from nephrology standpoint continue coreg 25 mg am and 12. 5 mg HS and continue lasix 40 mg daily D/W Dr. Orlando , stable for discharge home today Discharge plan discussed with patient and daughter, who understands and agrees with plan Patient instructed to go to clinic if symptoms returns or any concerning symptoms-( Patient planning to travel abroad ) )
--- NOTE | 2018-02-01 15:38 | PCM.HF ---
Heart Failure Core Measure - Heart Failure Ejection Fraction: 40 % or Greater FRIDA Inhibitor Prescribed: No Contraindication/Reason for not providing: CRF Beta-Mariel Prescribed: Carvedilol Angiotensin II Receptor Mariel Prescribed: No Contraindication/Reason for not providing: CRF AnticoagulationTherapy for Atrial Fibrillation/Atrialflutter: No Contraindication/Reason for not providing: NO HX OF A FIB Aldosterone Antagonist Prescribed: No Contraindication/Reason for not providing: CRF Hydralazine Nitrate Prescribed: Yes Implantable Cardioverter Defibrillator Therapy: No Contraindication/Reason for not providing: EF>45 Cardiac Resynchronization Therapy Prescribed: No Contraindication/Reason for not providing: EF>45 - Follow up Will be discharged to: Home Follow Up Date (must be within 7 days from discharge): 02/05/18 Follow Up Time: 09:00
[2018-02-01 15:50] VITALS: PULSE 60; RESP 20; O2SAT 97
[2018-02-01 18:13] VITALS: BP 140/70
--- NOTE | 2018-02-01 23:08 | CP.PCM.DIS ---
Provider - Provider Date of Admission: 01/29/18 11:58 Attending physician: Renato Orlando MD Hospital Course - Lab Results Lab Results: Most Recent Lab Values WBC 7.4 K/uL (4.8-10.8) 01/29/18 17:31 RBC 3.79 Mil/uL (3.80-5.20) L 01/29/18 17:31 Hgb 9.8 g/dL (11.0-16.0) L 01/29/18 17:31 Hct 30.3 % (34.0-47.0) L 01/29/18 17:31 MCV 79.8 fL (81.0-99.0) L 01/29/18 17: MCH 25.9 pg (27.0-31.0) L 01/29/18 17: MCHC 32.5 g/dL (33.0-37.0) L 01/29/18 17:31 RDW 14.4 % (11.5-14.5) 01/29/18 17: Plt Count 248 K/uL (130-400) 01/29/18 17: MPV 8.9 fL (7.2-11.7) 01/29/18 17:31 Neut % (Auto) 58.5 % (50.0-75.0) 01/29/18 17:31 Lymph % (Auto) 25.1 % (20.0-40.0) 01/29/18 17:31 [place] % (Auto) 9.5 % (0.0-10.0) 01/29/18 17:31 Eos % (Auto) 6.2 % (0.0-4.0) H 01/29/18 17:31 Baso % (Auto) 0.7 % (0.0-2.0) 01/29/18 17:31 Neut # (Auto) 4.3 K/uL (1.8-7.0) 01/29/18 17:31 Lymph # (Auto) 1.8 K/uL (1.0-4.3) 01/29/18 17:31 [place] # (Auto) 0.7 K/uL (0.0-0.8) 01/29/18 17:31 Eos # (Auto) 0.5 K/uL (0.0-0.7) 01/29/18 17:31 Baso # (Auto) 0.1 K/uL (0.0-0.2) 01/29/18 17:31 Sodium 135 mmol/L (132-148) 02/01/18 06:45 Potassium 4.8 mmol/L (3.6-5.2) 02/01/18 06:45 Chloride 97 mmol/L (98-107) L 02/01/18 06:45 Carbon Dioxide 25 mmol/L (22-30) 02/01/18 06:45 Anion Gap 17 (10-20) 02/01/18 06:45 BUN 58 mg/dL (7-17) H 02/01/18 06:45 Creatinine 3.0 mg/dL (0.7-1.2) H 02/01/18 06:45 Est GFR ( Amer) 19 02/01/18 06:45 Est GFR (Non-Af Amer) 15 02/01/18 06:45 POC Glucose (mg/dL) 363 mg/dL (65-110) H 02/01/18 16:10 Random Glucose 299 mg/dL (65-105) H 02/01/18 06:45 Calcium 8.2 mg/dl (8.6-10.4) L 02/01/18 06:45 Phosphorus 5.9 mg/dL (2.5-4.5) H 01/29/18 10:25 % Saturation 17 (20-55) L 01/29/18 17:31 Ferritin 24.8 ng/mL 01/29/18 10:25 Total Bilirubin 0.4 mg/dL (0.2-1.3) 02/01/18 06:45 AST 23 U/L (14-36) 02/01/18 06:45 ALT 32 U/L (9-52) 02/01/18 06:45 Alkaline Phosphatase 117 U/L (38-126) 02/01/18 06:45 Troponin I 0.0620 ng/mL (0.00-0.120) 01/29/18 10:25 NT-Pro-B Natriuret Pep 2940 pg/mL (0-900) H 01/29/18 10:25 Total Protein 6.7 g/dL (6.3-8.3) 02/01/18 06:45 Albumin 3.5 g/dL (3.5-5.0) 02/01/18 06:45 Globulin 3.2 gm/dL (2.2-3.9) 02/01/18 06:45 Albumin/Globulin Ratio 1.1 (1.0-2.1) 02/01/18 06:45 PTH Intact Whole Molec 371 pg/mL (14-64) H 01/29/18 13:58 Urine Color Straw (YELLOW) 01/29/18 18:39 Urine Clarity Clear (Clear) 01/29/18 18:39 Urine pH 6.0 (5.0-8.0) 01/29/18 18:39 Ur Specific [place] 1.006 (1.003-1.030) 01/29/18 18:39 Urine Protein 2+ mg/dL (NEGATIVE) H 01/29/18 18:39 Urine Glucose (UA) 2+ mg/dL (Normal) H 01/29/18 18:39 Urine Ketones Negative mg/dL (NEGATIVE) 01/29/18 18:39 Urine Blood Negative (NEGATIVE) 01/29/18 18:39 Urine Nitrate Negative (NEGATIVE) 01/29/18 18:39 Urine Bilirubin Negative (NEGATIVE) 01/29/18 18:39 Urine Urobilinogen Normal mg/dL (0.2-1.0) 01/29/18 18:39 Ur Leukocyte Esterase Trace Gabe/uL (Negative) 01/29/18 18:39 Urine WBC (Auto) 31 /hpf (0-5) H 01/29/18 18:39 Urine RBC (Auto) < 1 /hpf (0-3) 01/29/18 18:39 Ur Squamous Epith Cells < 1 /hpf (0-5) 01/29/18 18:39 Urine Bacteria Many (<OCC) H 01/29/18 18:39 Urine Collection Time 24 HRS 01/31/18 07:33 Urine Total Volume 3350 mL 01/31/18 07:33 Ur Protein 24 Hr Calc 8609.5 mg/24hr (42-225) H 01/31/18 07:33 Discharge Exam - Head Exam Head Exam: ATRAUMATIC, NORMAL INSPECTION Discharge Plan - Discharge Medications Prescriptions: hydrALAZINE [Apresoline] 75 mg PO TID #90 tab Carvedilol [Coreg] 12.5 mg PO HS #30 tab Carvedilol [Coreg] 25 mg PO DAILY #30 tab Furosemide [Lasix] 40 mg PO DAILY #30 tab - Follow Up Plan Condition: FAIR Disposition: HOME/ ROUTINE Instructions: Chest Pain That Is Not Caused by the Heart (DC), Heart Failure, Adult (DC) Additional Instructions: Please f/u with Dr. [place] office [place] Please f/u with clinic q 2weeks - to check your labs continue medication as per Med. rec. If any SOB or any concerning symptoms go to the CLINIC [place] PLEASE PERSONAL CARE ASSISTANT MEDICATION FROM [facility]
== END 2018-02-01 19:30 | disposition home or self-care (01) | DRG 291 ==
LOC: C.ER 08:56 → C.9E 11:58 → C.6T 17:26
PROVIDERS: ADMIT Internal Medicine; ATTEND Internal Medicine
DX: I13.0 Hypertensive heart and chronic kidney disease with heart failure and stage 1 through stage 4 chronic kidney disease, or unspecified chronic kidney disease (principal); I50.33 Acute on chronic diastolic (congestive) heart failure; N18.4 Chronic kidney disease, stage 4 (severe); J98.11 Atelectasis; E03.9 Hypothyroidism, unspecified; I42.9 Cardiomyopathy, unspecified; E11.21 Type 2 diabetes mellitus with diabetic nephropathy; E11.22 Type 2 diabetes mellitus with diabetic chronic kidney disease; E78.00 Pure hypercholesterolemia, unspecified; I25.10 Atherosclerotic heart disease of native coronary artery without angina pectoris; Z95.5 Presence of coronary angioplasty implant and graft; Z79.4 Long term (current) use of insulin

== ENCOUNTER 2018-04-08 16:09 | Inpatient (IN) | payer MEDICARE ==
[2018-04-08 16:10] VITALS: BMI 34.0
[2018-04-08 18:00] LABS: BASO # 0.1 K/uL (0.0-0.2); EOS # 0.5 K/uL (0.0-0.7); EOS % 6.5 % (0.0-4.0); HEMOGLOBIN 10.2 g/dL (11.0-16.0); LYMPH # 1.7 K/uL (1.0-4.3); LYMPH % 20.5 % (20.0-40.0); MEAN CORPUSCULAR HEMOGLOBIN 26.6 pg (27.0-31.0); MEAN CORPUSCULAR HGB CONC 31.7 g/dL (33.0-37.0); MEAN PLATELET VOLUME 9.5 fL (7.2-11.7); MONO # 0.6 K/uL (0.0-0.8); MONO % 6.7 % (0.0-10.0); NEUT # 5.5 K/uL (1.8-7.0); NEUT % 65.3 % (50.0-75.0); RBC 3.83 Mil/uL (3.80-5.20); RED CELL DISTRIBUTION WIDTH 15.7 % (11.5-14.5); WHITE BLOOD COUNT 8.5 K/uL (4.8-10.8)
--- NOTE | 2018-04-08 18:02 | C.PDOC ---
History Of Present Illness 72 year old female presents to ED for evaluation of shortness of breath, worse when laying down and when walking, since yesterday. Patient also admits to non- productive cough and worsening leg edema. She denies chest pain, palpitations, fever, abdominal pain, nausea/vomiting/diarrhea, dysuria, rash. Time Seen by Provider: 04/08/18 16:23 Chief Complaint (Nursing): Shortness Of Breath History Per: Patient History/Exam Limitations: no limitations Onset/Duration Of Symptoms: Days Current Symptoms Are (Timing): Still Present Exacerbating Factor(s): Laying Flat, Coughing Current Respiratory Medications: See Home Med List Associated Symptoms: Ankle/Leg Swelling. denies: Sweating, Chest Pain, Bloody Cough, Heart Racing, Leg/Calf Pain, Dizziness Additional History Per: Patient Past Medical History Reviewed: Historical Data, Nursing Documentation, Vital Signs Vital Signs: Last Vital Signs Temp 98.5 F 04/14/18 00:00 Pulse 62 04/14/18 00:00 Resp 20 04/14/18 00:00 BP 154/69 H 04/14/18 00:00 Pulse Ox 98 04/14/18 02:24 - Medical History PMH: CAD, CHF, Diabetes, HTN, Hypercholesterolemia, Chronic Kidney Disease Surgical History: Coronary Stent (10/2015) - [facility] Procedures INDIVIDUAL PSYCHOTHERAPY, SUPPORTIVE (11/23/16) MEASURE OF CARDIAC SAMPL & PRESSURE, L HEART, PERC APPROACH (10/14/15) OTHER COUNSELING (11/23/16) PLAIN RADIOGRAPHY OF MULT COR ART USING L OSM CONTRAST (10/14/15) Family History: States: Diabetes - Social History Hx Tobacco Use: No Hx Alcohol Use: No Hx Substance Use: No - Immunization History Hx Tetanus Toxoid Vaccination: No Hx Influenza Vaccination: Yes Hx Pneumococcal Vaccination: Yes Review Of Systems Constitutional: Negative for: Fever, Chills Cardiovascular: Positive for: Edema. Negative for: Chest Pain, Palpitations, Light Headedness Respiratory: Positive for: Cough, Shortness of Breath Gastrointestinal: Negative for: Nausea, Vomiting, Abdominal Pain, Diarrhea Genitourinary: Negative for: Dysuria, Hematuria Skin: Negative for: Rash Neurological: Negative for: Headache Physical Exam - Physical Exam Appears: Well, Non-toxic, No Acute Distress, Other (morbidly obese) Skin: Normal Color, Warm, Dry Head: Normacephalic Eye(s): bilateral: Normal Inspection Oral Mucosa: Moist Neck: Supple Chest: Symmetrical Cardiovascular: Rhythm Regular, No Murmur Respiratory: No Accessory Muscle Use, Rales (bibasilar), No Rhonchi, No Wheezing , Other (speaking in full sentences) Gastrointestinal/Abdominal: Normal Exam, Bowel Sounds, Soft, No Tenderness, Other (obese abdomen) Extremity: Normal ROM, Pedal Edema (+1 pitting edema), No Calf Tenderness Pulses: Left Dorsalis Pedis: Normal, Right Dorsalis Pedis: Normal Neurological/Psych: Oriented x3 ED Course And Treatment - Laboratory Results Result Diagrams: 04/11/18 07:25 04/13/18 08:34 ECG: Interpreted By Me, Viewed By Me ECG Rhythm: Sinus Rhythm ECG Interpretation: No Acute Changes Interpretation Of ECG: Normal axis. No ST/T wave changes. PACs. Rate From EC (bpm) O2 Sat by Pulse Oximetry: 98 (RA) Pulse Ox Interpretation: Normal - Radiology CXR: Interpreted by Me, Viewed By Me ((+) pulmonary vascular congestion) Progress Note: Blood work, CXR, EKG ordered and reviewed. Patient given IV Lasix. - Physician Consult Information Physician Contacted: Renato Orlando Outcome Of Conversation: Discussed patient with PMD, agrees with admission for CHF exacerbation, dyspnea. Medical Decision Making Medical Decision Makin Spoke with Dr. Orlando (Internal Medicine). Discussed case. Disposition - Disposition Disposition: HOSPITALIZED Disposition Time: 18:47 Condition: STABLE - Clinical Impression Clinical Impression: Dyspnea, CHF (congestive heart failure) - Scribe Statement The provider has reviewed the documentation as recorded by the Jodyibcriselda Tomlinson All medical record entries made by the Scribe were at my direction and personally dictated by me. I have reviewed the chart and agree that the record accurately reflects my personal performance of the history, physical exam, medical decision making, and the department course for this patient. I have also personally directed, reviewed, and agree with the discharge instructions and disposition. Decision To Admit - Pt Status Changed To: Hospital Disposition Of: Inpatient - Admit Certification Admit to Inpatient:: After my assessment, the patient will require hospitalization for at least two midnights. This is because of the severity of symptoms shown, intensity of services needed, and/or the medical risk in this patient being treated as an outpatient. - InPatient: Physician Admission Certification: I certify that this patient requires 2 or more midnights of care for the following reason:: see notes - . Bed Request Type: Telemetry Admitting Physician: Renato Orlando Patient Diagnosis: CHF (congestive heart failure), Dyspnea
[2018-04-08 18:03] LABS: MEAN CELL VOLUME 83.8 fL (81.0-99.0)
[2018-04-08 18:10] LABS: PROTHROMBIN TIME 11.3 SECONDS (9.7-12.2)
[2018-04-08 18:53] LABS: ALB/GLOB RATIO 1.2 (1.0-2.1); ALBUMIN 3.1 g/dL (3.5-5.0); CALCIUM 7.3 mg/dl (8.6-10.4)
[2018-04-08 19:05] LABS: CK-MB 2.25 ng/mL (0.0-3.38); TROPONIN I 0.023 ng/mL (0.00-0.120)
[2018-04-08] MEDS ORDERED: Glucagon Recombinant 1 mg Inj IM PRN (19:52)
[2018-04-08] MEDS ORDERED: Dextrose 50% SYRINGE Inj (50 ml) IV PRN (19:52)
--- NOTE | 2018-04-08 20:07 | CP.PCM.HP ---
History of Present Illness - History of Present Illness History of Present Illness: Chief complaint: Shortness of breath History of present illness: 72-year-old female with a history of heart failure, hypertension, CAD, status post stent, renal insufficiency, diabetes. Patient started having increasing shortness of breath since yesterday. Also started having leg swelling since to 3 days. Recently she is drinking significant amount of fluid. Heavy breathing trouble noted. Shortness of breath on exertion also noted. Now even at rest noted. Unable to lie flat. Patient is using at least 3-4 pillows to sleep. Coughing minimally noted. No chest pain noted. She does not have any fever chills. No urinary symptoms. She is making urine, even at night times she goes to the bathroom many times. She is on medications, as per the patient she is taking the medication without any problems. Blood sugar is noted to be on the high side. Past medical history CAD CHF diabetes hypertension high cholesterol renal insufficiency Surgical history coronary stenting,Removal of pituitary macroadenoma Allergies no known drug allergy Personal history nonspecific Non-smoker nonalcoholic lives by herself Review of system noted from the chart, 10 point review of system noted Family history noncontributory Review of system noted.Weakness noted. Shortness of breath present. Leg swelling present. 10 point review of system noted On examination: Patient is not in any distress. Vital signs temperature 98F Blood pressure noted to be highly elevated. Chest good air entry bilaterally, diffuse bilateral wheezing and rales noted sometimes. Regular heart sounds nontender abdomen extremities edema noted bilaterally. Labs: Reviewed BUN and creatinine noted to be elevated. Chest x-ray showing congestive changes in both lungs. Elevated proBNP noted. EKG nonspecific Assessment and recommendation: Patient is a 72-year-old female with multiple medical history hypertension diabetes hypercholesterolemia CAD status post distant admitted with worsening renal failure, renal insufficiency, and associated with the fluid overload state. Admitted with possible acute decompensated heart failure. Fluid overload. Patient also has a paroxysmal nocturnal dyspnea. Likely secondary to congestive heart failure. We will get echocardiogram. Cardiology evaluation. Cardiac enzymes monitoring. Diuretics. Oxygen. Patient will be closely monitored with telemetry point of view. We will continue the cardiology evaluation, cardiology follow-up. Nephrology follow-up. Present on Admission - Present on Admission Any Indicators Present on Admission: No History of DVT/PE: No History of Uncontrolled Diabetes: No Urinary Catheter: No Decubitus Ulcer Present: No Past Patient History - Infectious Disease Hx of Infectious Diseases: None - Past Medical History & Family History Past Medical History?: Yes - Past Social History Smoking Status: Never Smoked - CARDIAC Hx Congestive Heart Failure: Yes Hx Hypercholesterolemia: Yes Hx Hypertension: Yes - PULMONARY Hx Respiratory Disorders: No - NEUROLOGICAL Hx Neurological Disorder: No Hx Dizziness: Yes - HEENT Hx HEENT Problems: Yes Other/Comment: left eye drooping-blurry due to DM - RENAL Hx Chronic Kidney Disease: Yes - ENDOCRINE/METABOLIC Hx Diabetes Mellitus Type 2: Yes - HEMATOLOGICAL/ONCOLOGICAL Hx Blood Disorders: No - INTEGUMENTARY Hx Dermatological Problems: No - MUSCULOSKELETAL/RHEUMATOLOGICAL Hx Falls: Yes - GASTROINTESTINAL Hx Gastrointestinal Disorders: No - GENITOURINARY/GYNECOLOGICAL Hx Genitourinary Disorders: No - PSYCHIATRIC Hx Substance Use: No - SURGICAL HISTORY Hx Coronary Stent: Yes (10/2015) - ANESTHESIA Hx Anesthesia: Yes Hx Anesthesia Reactions: No Hx Malignant Hyperthermia: No Meds Allergies/Adverse Reactions: Allergies Allergy/AdvReac Type Severity Reaction Status Date / Time No Known Allergies Allergy Verified 04/08/18 16:26 Results - Vital Signs Recent Vital Signs: Last Vital Signs Temp 98.2 F 04/08/18 16:22 Pulse 68 04/08/18 19:57 Resp 24 04/08/18 19:57 BP 222/96 H 04/08/18 19:57 Pulse Ox 97 04/08/18 19:57 - Labs Result Diagrams: 04/08/18 17:57 04/08/18 18:33 Labs: Laboratory Results - last 24 hr 04/08/18 04/08/18 04/08/18 17:57 17:57 17:57 WBC 8.5 RBC 3.83 Hgb 10.2 L Hct 32.1 L MCV 83.8 D MCH 26.6 L MCHC 31.7 L RDW 15.7 H Plt Count 184 MPV 9.5 Neut % (Auto) 65.3 Lymph % (Auto) 20.5 [place] % (Auto) 6.7 Eos % (Auto) 6.5 H Baso % (Auto) 1.0 Neut # (Auto) 5.5 Lymph # (Auto) 1.7 [place] # (Auto) 0.6 Eos # (Auto) 0.5 Baso # (Auto) 0.1 PT 11.3 INR 1.0 APTT 31 Sodium Cancelled Potassium Cancelled Chloride Cancelled Carbon Dioxide Cancelled Anion Gap Cancelled BUN Cancelled Creatinine Cancelled Est GFR ( Amer) Cancelled Est GFR (Non-Af Amer) Cancelled Random Glucose Cancelled Calcium Cancelled Total Bilirubin Cancelled AST Cancelled ALT Cancelled Alkaline Phosphatase Cancelled Total Creatine Kinase Cancelled CK-MB (Mass) Cancelled Troponin I Cancelled NT-Pro-B Natriuret Pep Cancelled Total Protein Cancelled Albumin Cancelled Globulin Cancelled Albumin/Globulin Ratio Cancelled 04/08/18 18:33 WBC RBC Hgb Hct MCV MCH MCHC RDW Plt Count MPV Neut % (Auto) Lymph % (Auto) [place] % (Auto) Eos % (Auto) Baso % (Auto) Neut # (Auto) Lymph # (Auto) [place] # (Auto) Eos # (Auto) Baso # (Auto) PT INR APTT Sodium 135 Potassium 4.7 Chloride 104 Carbon Dioxide 21 L Anion Gap 14 BUN 57 H Creatinine 3.3 H Est GFR ( Amer) 17 Est GFR (Non-Af Amer) 14 Random Glucose 190 H Calcium 7.3 L Total Bilirubin 0.4 AST 32 ALT 43 Alkaline Phosphatase 106 Total Creatine Kinase 79 CK-MB (Mass) 2.25 Troponin I 0.0230 NT-Pro-B Natriuret Pep 5740 H Total Protein 5.9 L Albumin 3.1 L Globulin 2.7 Albumin/Globulin Ratio 1.2
[2018-04-08] MEDS: Albuterol-Ipratrop 3 mg / 0.5 (3 ml) UD INH SCH (21:23)
[2018-04-08] MEDS ORDERED: Albuterol-Ipratrop 3 mg / 0.5 (3 ml) UD ONE (21:24)
--- NOTE | 2018-04-08 21:40 | CP.PCM.CON ---
History of Present Illness - History of Present Illness History of Present Illness: 72 F admitted for diastolic CHF Past Patient History - Infectious Disease Hx of Infectious Diseases: None - Past Medical History & Family History Past Medical History?: Yes - Past Social History Smoking Status: Never Smoked - CARDIAC Hx Congestive Heart Failure: Yes Hx Hypercholesterolemia: Yes Hx Hypertension: Yes - PULMONARY Hx Respiratory Disorders: No - NEUROLOGICAL Hx Neurological Disorder: No Hx Dizziness: Yes - HEENT Hx HEENT Problems: Yes Other/Comment: left eye drooping-blurry due to DM - RENAL Hx Chronic Kidney Disease: Yes - ENDOCRINE/METABOLIC Hx Diabetes Mellitus Type 2: Yes - HEMATOLOGICAL/ONCOLOGICAL Hx Blood Disorders: No - INTEGUMENTARY Hx Dermatological Problems: No - MUSCULOSKELETAL/RHEUMATOLOGICAL Hx Falls: Yes - GASTROINTESTINAL Hx Gastrointestinal Disorders: No - GENITOURINARY/GYNECOLOGICAL Hx Genitourinary Disorders: No - PSYCHIATRIC Hx Substance Use: No - SURGICAL HISTORY Hx Coronary Stent: Yes (10/2015) - ANESTHESIA Hx Anesthesia: Yes Hx Anesthesia Reactions: No Hx Malignant Hyperthermia: No Meds Allergies/Adverse Reactions: Allergies Allergy/AdvReac Type Severity Reaction Status Date / Time No Known Allergies Allergy Verified 04/08/18 16:26 - Medications Medications: Current Medications Albuterol/Ipratropium (Duoneb 3 Mg/0.5 Mg (3 Ml) Ud) 3 ml INH RQ6 [facility] Last Admin: 04/08/18 21:23 Dose: 3 ml Aspirin (Ecotrin) 81 mg PO DAILY [facility] Carvedilol (Coreg) 12.5 mg PO Q12 [facility] Last Admin: 04/08/18 20:55 Dose: 12.5 mg Dextrose (Dextrose 50% Inj) 0 ml IV STAT PRN; Protocol PRN Reason: Hypoglycemia Protocol Dextrose (Glutose 15) 0 gm PO ONCE PRN; Protocol PRN Reason: Hypoglycemia Protocol Furosemide (Lasix) 40 mg IVP Q12 [facility] Glucagon (Glucagen Diagnostic Kit) 0 mg IM STAT PRN; Protocol PRN Reason: Hypoglycemia Protocol Heparin Sodium (Porcine) (Heparin) 5,000 units SC Q8 [facility] Hydralazine HCl (Apresoline) 50 mg PO TID [facility] Last Admin: 04/08/18 20:55 Dose: 50 mg Hydrocortisone (Cortef) 10 mg PO BID [facility] Dextrose (Dextrose 5% In Water 1000 Ml) 1,000 mls @ 0 mls/hr IV .Q0M PRN; Protocol; Per Protocol PRN Reason: Hypoglycemia Protocol Insulin Human Regular (Novolin R) 0 unit SC ACHS [facility] PRN Reason: Protocol Isosorbide Mononitrate (Imdur Er) 30 mg PO DAILY [facility] Levothyroxine Sodium (Synthroid) 50 mcg PO DAILY@0630 [facility] Rosuvastatin Calcium (Crestor) 10 mg PO HS [facility] Results - Vital Signs Recent Vital Signs: Last Vital Signs Temp 98.2 F 04/08/18 16:22 Pulse 68 04/08/18 19:57 Resp 24 04/08/18 19:57 BP 222/96 H 04/08/18 20:55 Pulse Ox 97 04/08/18 19:57 - Labs Result Diagrams: 04/08/18 17:57 04/08/18 18:33 Labs: Laboratory Results - last 24 hr 04/08/18 04/08/18 04/08/18 17:57 17:57 17:57 WBC 8.5 RBC 3.83 Hgb 10.2 L Hct 32.1 L MCV 83.8 D MCH 26.6 L MCHC 31.7 L RDW 15.7 H Plt Count 184 MPV 9.5 Neut % (Auto) 65.3 Lymph % (Auto) 20.5 [place] % (Auto) 6.7 Eos % (Auto) 6.5 H Baso % (Auto) 1.0 Neut # (Auto) 5.5 Lymph # (Auto) 1.7 [place] # (Auto) 0.6 Eos # (Auto) 0.5 Baso # (Auto) 0.1 PT 11.3 INR 1.0 APTT 31 Sodium Cancelled Potassium Cancelled Chloride Cancelled Carbon Dioxide Cancelled Anion Gap Cancelled BUN Cancelled Creatinine Cancelled Est GFR ( Amer) Cancelled Est GFR (Non-Af Amer) Cancelled POC Glucose (mg/dL) Random Glucose Cancelled Calcium Cancelled Total Bilirubin Cancelled AST Cancelled ALT Cancelled Alkaline Phosphatase Cancelled Total Creatine Kinase Cancelled CK-MB (Mass) Cancelled Troponin I Cancelled NT-Pro-B Natriuret Pep Cancelled Total Protein Cancelled Albumin Cancelled Globulin Cancelled Albumin/Globulin Ratio Cancelled 04/08/18 04/08/18 18:33 20:01 WBC RBC Hgb Hct MCV MCH MCHC RDW Plt Count MPV Neut % (Auto) Lymph % (Auto) [place] % (Auto) Eos % (Auto) Baso % (Auto) Neut # (Auto) Lymph # (Auto) [place] # (Auto) Eos # (Auto) Baso # (Auto) PT INR APTT Sodium 135 Potassium 4.7 Chloride 104 Carbon Dioxide 21 L Anion Gap 14 BUN 57 H Creatinine 3.3 H Est GFR ( Amer) 17 Est GFR (Non-Af Amer) 14 POC Glucose (mg/dL) 153 H Random Glucose 190 H Calcium 7.3 L Total Bilirubin 0.4 AST 32 ALT 43 Alkaline Phosphatase 106 Total Creatine Kinase 79 CK-MB (Mass) 2.25 Troponin I 0.0230 NT-Pro-B Natriuret Pep 5740 H Total Protein 5.9 L Albumin 3.1 L Globulin 2.7 Albumin/Globulin Ratio 1.2
[2018-04-08] MEDS: (Novolin R) Insulin Human Regular 100 units/ml vial SC SCH (22:10)
[2018-04-09] MEDS: Levothyroxine 50 MCG TAB PO SCH (05:38)
[2018-04-09] MEDS: Albuterol-Ipratrop 3 mg / 0.5 (3 ml) UD INH SCH ×3 (07:51→20:24)
[2018-04-09] MEDS: (Novolin R) Insulin Human Regular 100 units/ml vial SC SCH ×4 (09:00→21:36)
--- NOTE | 2018-04-09 09:45 | RAD ---
PROCEDURE: CHEST RADIOGRAPH, 1 VIEW HISTORY: SOB COMPARISON: 01/29/2018. FINDINGS: LUNGS: Again seen are low lung volumes. There is mild pulmonary venous congestion. No focal consolidation. PLEURA: No pneumothorax or pleural fluid seen. CARDIOVASCULAR: There is persistent mild cardiomegaly. OSSEOUS STRUCTURES: No significant abnormalities. VISUALIZED UPPER ABDOMEN: Normal. OTHER FINDINGS: None. IMPRESSION: No active pulmonary disease. Mild cardiomegaly and pulmonary venous congestion.
--- NOTE | 2018-04-09 13:22 | CP.PCM.CON ---
History of Present Illness - History of Present Illness History of Present Illness: 72-year-old female with a history of heart failure, hypertension, CAD, status post stent, CKD 4 with proteinuria, diabetes mellitus type 2 Patient started having increasing shortness of breath suddenly on 04/08 Also started having leg swelling several days Recently she is drinking significant amount of fluid. Increasingly dyspneic wit SMALL, orthopnea. Unable to lie flat. Patient is using at least 3-4 pillows to sleep. Coughing minimally noted. She does not have any fever chills. No dysuria She is making urine, has nocturia Has been on oral lasix CXR with CHF changes Past medical history CAD CHF diabetes hypertension high cholesterol renal insufficiency-CKD 4 Surgical history coronary stenting,Removal of pituitary macroadenoma Allergies no known drug allergy Personal history nonspecific Non-smoker nonalcoholic lives by herself Review of Systems - Constitutional Constitutional: Weight Gain, Weakness - EENT Eyes: absent: As Per HPI, Blind Spots, Blurred Vision, Change in Vision, Decreased Night Vision, Diplopia, Discharge, Dry Eye, Exophthalmos, Floaters, Irritation, Itchy Eyes, Loss of Peripheral Vision, Pain, Photophobia, Requires Corrective Lenses, Sees Flashes, Spots in Vision, Tunnel Vision, Other Visual Disturbances, Loss of Vision, Other Ears: absent: As Per HPI, Decreased Hearing, Ear Discharge, Ear Pain, Tinnitus, Abnormal Hearing, Disequilibrium, Dizziness, Other Nose/Mouth/Throat: absent: As Per HPI, Epistaxis, Nasal Congestion, Nasal Discharge, Nasal Obstruction, Nasal Trauma, Nose Pain, Post Nasal Drip, Sinus Pain, Sinus Pressure, Bleeding Gums, Change in Voice, Dental Pain, Dry Mouth, Dysphagia, Halitosis, Hoarsness, Lip Swelling, Mouth Lesions, Mouth Pain, Odynophagia, Sore Throat, Throat Swelling, Tongue Swelling, Facial Pain, Neck Pain, Neck Mass, Other - Cardiovascular Cardiovascular: Dyspnea on Exertion, Orthopnea - Respiratory Respiratory: Cough, Dyspnea on Exertion - Gastrointestinal Gastrointestinal: absent: As Per HPI, Abdominal Pain, Belching, Bloating, Change in Bowel Habits, Change in Stool Character, Coffee Ground Emesis, Constipation, Cramping, Diarrhea, Dyspepsia, Dysphagia, Early Satiety, Excessive Flatus, Fecal Incontinence, Heartburn, Hematemesis, Hematochezia, Loose Stools, Melena, Nausea, Odynophagia, Temesmus, Vomiting, Other - Genitourinary Genitourinary: Urinary Frequency - Musculoskeletal Musculoskeletal: Muscle Cramps, Muscle Weakness, Myalgias - Neurological Neurological: Weakness Past Patient History - Infectious Disease Hx of Infectious Diseases: None - Past Medical History & Family History Past Medical History?: Yes Past Family History: Reviewed and not pertinent - Past Social History Smoking Status: Never Smoked Chewing Tobacco Use: No Cigar Use: No Alcohol: None Drugs: Denies Home Situation {Lives}: Alone - CARDIAC Hx Congestive Heart Failure: Yes Hx Hypercholesterolemia: Yes Hx Hypertension: Yes - PULMONARY Hx Respiratory Disorders: No - NEUROLOGICAL Hx Neurological Disorder: No Hx Dizziness: Yes - HEENT Hx HEENT Problems: Yes Other/Comment: left eye drooping-blurry due to DM - RENAL Hx Chronic Kidney Disease: Yes - ENDOCRINE/METABOLIC Hx Diabetes Mellitus Type 2: Yes - HEMATOLOGICAL/ONCOLOGICAL Hx Blood Disorders: No - INTEGUMENTARY Hx Dermatological Problems: No - MUSCULOSKELETAL/RHEUMATOLOGICAL Hx Falls: No - GASTROINTESTINAL Hx Gastrointestinal Disorders: No - GENITOURINARY/GYNECOLOGICAL Hx Genitourinary Disorders: No - PSYCHIATRIC Hx Substance Use: No - SURGICAL HISTORY Hx Coronary Stent: Yes (10/2015) - ANESTHESIA Hx Anesthesia: Yes Hx Anesthesia Reactions: No Hx Malignant Hyperthermia: No Meds Allergies/Adverse Reactions: Allergies Allergy/AdvReac Type Severity Reaction Status Date / Time No Known Allergies Allergy Verified 04/08/18 16:26 - Medications Medications: Current Medications Albuterol/Ipratropium (Duoneb 3 Mg/0.5 Mg (3 Ml) Ud) 3 ml INH RQ6 [facility] Last Admin: 04/09/18 13:16 Dose: 3 ml Aspirin (Ecotrin) 81 mg PO DAILY [facility] Last Admin: 04/09/18 09:31 Dose: 81 mg Carvedilol (Coreg) 12.5 mg PO Q12 [facility] Last Admin: 04/09/18 09:31 Dose: 12.5 mg Dextrose (Dextrose 50% Inj) 0 ml IV STAT PRN; Protocol PRN Reason: Hypoglycemia Protocol Dextrose (Glutose 15) 0 gm PO ONCE PRN; Protocol PRN Reason: Hypoglycemia Protocol Furosemide (Lasix) 40 mg IVP Q12 [facility] Last Admin: 04/09/18 09:28 Dose: 40 mg Glucagon (Glucagen Diagnostic Kit) 0 mg IM STAT PRN; Protocol PRN Reason: Hypoglycemia Protocol Heparin Sodium (Porcine) (Heparin) 5,000 units SC Q8 [facility] Last Admin: 04/09/18 05:38 Dose: 5,000 units Hydralazine HCl (Apresoline) 50 mg PO TID [facility] Last Admin: 04/09/18 09:30 Dose: 50 mg Hydrocortisone (Cortef) 10 mg PO BID [facility] Last Admin: 04/09/18 10:19 Dose: 10 mg Dextrose (Dextrose 5% In Water 1000 Ml) 1,000 mls @ 0 mls/hr IV .Q0M PRN; Protocol; Per Protocol PRN Reason: Hypoglycemia Protocol Insulin Human Regular (Novolin R) 0 unit SC ACHS [facility] PRN Reason: Protocol Last Admin: 04/09/18 12:30 Dose: 1 unit Isosorbide Mononitrate (Imdur Er) 30 mg PO DAILY [facility] Last Admin: 04/09/18 10:18 Dose: 30 mg Levothyroxine Sodium (Synthroid) 50 mcg PO DAILY@0630 [facility] Last Admin: 04/09/18 05:38 Dose: 50 mcg Rosuvastatin Calcium (Crestor) 10 mg PO HS [facility] Last Admin: 04/08/18 22:10 Dose: 10 mg Physical Exam - Constitutional Appears: Non-toxic, No Acute Distress - Head Exam Head Exam: ATRAUMATIC, NORMAL INSPECTION - Eye Exam Eye Exam: EOMI, Normal appearance - Neck Exam Neck exam: Positive for: Normal Inspection. Negative for: Tenderness - Respiratory Exam Respiratory Exam: Clear to Auscultation Bilateral, NORMAL BREATHING PATTERN - Cardiovascular Exam Cardiovascular Exam: REGULAR RHYTHM, +S1 - GI/Abdominal Exam GI & Abdominal Exam: Soft. absent: Tenderness - Extremities Exam Extremities exam: Positive for: pedal edema, tenderness - Neurological Exam Neurological exam: Alert, CN II-XII Intact - Skin Skin Exam: Dry, Warm Results - Vital Signs Recent Vital Signs: Last Vital Signs Temp 97.7 F 04/09/18 07:00 Pulse 64 04/09/18 07:00 Resp 20 04/09/18 07:00 BP 179/82 H 04/09/18 09:31 Pulse Ox 96 04/09/18 07:00 - Labs Result Diagrams: 04/08/18 17:57 04/08/18 18:33 Labs: Laboratory Results - last 24 hr 04/08/18 04/08/18 04/08/18 17:57 17:57 17:57 WBC 8.5 RBC 3.83 Hgb 10.2 L Hct 32.1 L MCV 83.8 D MCH 26.6 L MCHC 31.7 L RDW 15.7 H Plt Count 184 MPV 9.5 Neut % (Auto) 65.3 Lymph % (Auto) 20.5 [place] % (Auto) 6.7 Eos % (Auto) 6.5 H Baso % (Auto) 1.0 Neut # (Auto) 5.5 Lymph # (Auto) 1.7 [place] # (Auto) 0.6 Eos # (Auto) 0.5 Baso # (Auto) 0.1 PT 11.3 INR 1.0 APTT 31 Sodium Cancelled Potassium Cancelled Chloride Cancelled Carbon Dioxide Cancelled Anion Gap Cancelled BUN Cancelled Creatinine Cancelled Est GFR ( Amer) Cancelled Est GFR (Non-Af Amer) Cancelled POC Glucose (mg/dL) Random Glucose Cancelled Calcium Cancelled Total Bilirubin Cancelled AST Cancelled ALT Cancelled Alkaline Phosphatase Cancelled Total Creatine Kinase Cancelled CK-MB (Mass) Cancelled Troponin I Cancelled NT-Pro-B Natriuret Pep Cancelled Total Protein Cancelled Albumin Cancelled Globulin Cancelled Albumin/Globulin Ratio Cancelled 04/08/18 04/08/18 04/08/18 18:33 20:01 22:19 WBC RBC Hgb Hct MCV MCH MCHC RDW Plt Count MPV Neut % (Auto) Lymph % (Auto) [place] % (Auto) Eos % (Auto) Baso % (Auto) Neut # (Auto) Lymph # (Auto) [place] # (Auto) Eos # (Auto) Baso # (Auto) PT INR APTT Sodium 135 Potassium 4.7 Chloride 104 Carbon Dioxide 21 L Anion Gap 14 BUN 57 H Creatinine 3.3 H Est GFR ( Amer) 17 Est GFR (Non-Af Amer) 14 POC Glucose (mg/dL) 153 H 242 H Random Glucose 190 H Calcium 7.3 L Total Bilirubin 0.4 AST 32 ALT 43 Alkaline Phosphatase 106 Total Creatine Kinase 79 CK-MB (Mass) 2.25 Troponin I 0.0230 NT-Pro-B Natriuret Pep 5740 H Total Protein 5.9 L Albumin 3.1 L Globulin 2.7 Albumin/Globulin Ratio 1.2 04/09/18 04/09/18 06:23 11:34 WBC RBC Hgb Hct MCV MCH MCHC RDW Plt Count MPV Neut % (Auto) Lymph % (Auto) [place] % (Auto) Eos % (Auto) Baso % (Auto) Neut # (Auto) Lymph # (Auto) [place] # (Auto) Eos # (Auto) Baso # (Auto) PT INR APTT Sodium Potassium Chloride Carbon Dioxide Anion Gap BUN Creatinine Est GFR ( Amer) Est GFR (Non-Af Amer) POC Glucose (mg/dL) 177 H 195 H Random Glucose Calcium Total Bilirubin AST ALT Alkaline Phosphatase Total Creatine Kinase CK-MB (Mass) Troponin I NT-Pro-B Natriuret Pep Total Protein Albumin Globulin Albumin/Globulin Ratio Assessment & Plan (1) Type 2 diabetes mellitus with diabetic nephropathy Status: Acute (2) CHF (congestive heart failure) Status: Acute (3) Chronic kidney disease, stage IV (severe) Status: Acute - Assessment and Plan (Free Text) Plan: Agree with IV lasix check degree of proteinuria serial chemistries monitor BP monitor courtney
--- NOTE | 2018-04-09 14:10 | CP.PCM.PN ---
<Padma Cunningham - Last Filed: 04/09/18 16:35> Subjective - Date & Time of Evaluation Date of Evaluation: 04/09/18 Time of Evaluation: 13:00 - Subjective Subjective: PGY2- Progress Note for Dr. Wagoner Patient seen and examined at bedside. Patient says her breathing feels better. Patient denies any chest pain, palpitations, abdominal pain, nausea, vomiting, constipation, or diarrhea. Objective - Vital Signs/Intake and Output Vital Signs (last 24 hours): Temp Pulse Resp BP Pulse Ox 97.7 F 64 20 179/82 H 96 04/09/18 07:00 04/09/18 07:00 04/09/18 07:00 04/09/18 09:31 04/09/18 07:00 Intake and Output: 04/09/18 04/09/18 06:59 18:59 Output Total 350 Balance -350 - Medications Medications: Current Medications Albuterol/Ipratropium (Duoneb 3 Mg/0.5 Mg (3 Ml) Ud) 3 ml INH RQ6 [facility] Last Admin: 04/09/18 13:16 Dose: 3 ml Aspirin (Ecotrin) 81 mg PO DAILY [facility] Last Admin: 04/09/18 09:31 Dose: 81 mg Carvedilol (Coreg) 12.5 mg PO Q12 [facility] Last Admin: 04/09/18 09:31 Dose: 12.5 mg Dextrose (Dextrose 50% Inj) 0 ml IV STAT PRN; Protocol PRN Reason: Hypoglycemia Protocol Dextrose (Glutose 15) 0 gm PO ONCE PRN; Protocol PRN Reason: Hypoglycemia Protocol Furosemide (Lasix) 40 mg IVP Q12 [facility] Last Admin: 04/09/18 09:28 Dose: 40 mg Glucagon (Glucagen Diagnostic Kit) 0 mg IM STAT PRN; Protocol PRN Reason: Hypoglycemia Protocol Heparin Sodium (Porcine) (Heparin) 5,000 units SC Q8 [facility] Last Admin: 04/09/18 13:42 Dose: 5,000 units Hydralazine HCl (Apresoline) 50 mg PO TID [facility] Last Admin: 04/09/18 13:43 Dose: 50 mg Hydrocortisone (Cortef) 10 mg PO BID [facility] Last Admin: 04/09/18 10:19 Dose: 10 mg Dextrose (Dextrose 5% In Water 1000 Ml) 1,000 mls @ 0 mls/hr IV .Q0M PRN; Protocol; Per Protocol PRN Reason: Hypoglycemia Protocol Insulin Human Regular (Novolin R) 0 unit SC ACHS [facility] PRN Reason: Protocol Last Admin: 04/09/18 12:30 Dose: 1 unit Isosorbide Mononitrate (Imdur Er) 30 mg PO DAILY [facility] Last Admin: 04/09/18 10:18 Dose: 30 mg Levothyroxine Sodium (Synthroid) 50 mcg PO DAILY@0630 [facility] Last Admin: 04/09/18 05:38 Dose: 50 mcg Rosuvastatin Calcium (Crestor) 10 mg PO HS [facility] Last Admin: 04/08/18 22:10 Dose: 10 mg - Labs Labs: 04/08/18 17:57 04/08/18 18:33 PT 11.3 SECONDS (9.7-12.2) 04/08/18 17:57 INR 1.0 04/08/18 17:57 APTT 31 SECONDS (21-34) 04/08/18 17:57 - Constitutional Appears: Non-toxic, No Acute Distress - Head Exam Head Exam: ATRAUMATIC, NORMAL INSPECTION, NORMOCEPHALIC - Eye Exam Eye Exam: EOMI, Normal appearance - ENT Exam ENT Exam: Mucous Membranes Moist - Respiratory Exam Respiratory Exam: Clear to Ausculation Bilateral, NORMAL BREATHING PATTERN - Cardiovascular Exam Cardiovascular Exam: REGULAR RHYTHM, RRR, +S1, +S2 - GI/Abdominal Exam GI & Abdominal Exam: Soft, Normal Bowel Sounds. absent: Tenderness - Extremities Exam Extremities Exam: Pedal Edema Additional comments: 1+ pitting pedal edema b/l - Neurological Exam Neurological Exam: Alert, Awake, Oriented x3 - Psychiatric Exam Psychiatric exam: Normal Affect, Normal Mood - Skin Skin Exam: Intact, Normal Color, Warm Assessment and Plan - Assessment and Plan (Free Text) Assessment: CHF exacerbation Cxray: no active pulmonary disease, mild cardiomegaly and pulmonary venous congestion Pro BNP: 5740 f/u ECHO Worsening CKD nephro consulted, help appreciated CAD ASA 81mg po daily Carvedilol 12.5mg po q12h Imdur 30mg po daily Crestor 10mg po HS Hypothyroidism Synthroid 50mcg po daily discussed with Dr. Wagoner <Jimmy Wagoner - Last Filed: 04/09/18 22:42> Objective - Vital Signs/Intake and Output Vital Signs (last 24 hours): Temp Pulse Resp BP Pulse Ox 98.4 F 62 20 181/69 H 99 04/09/18 22:20 04/09/18 22:20 04/09/18 22:20 04/09/18 22:20 04/09/18 22:20 Intake and Output: 04/09/18 04/10/18 18:59 06:59 Intake Total 480 Balance 480 - Medications Medications: Current Medications Albuterol/Ipratropium (Duoneb 3 Mg/0.5 Mg (3 Ml) Ud) 3 ml INH RQ6 [facility] Last Admin: 04/09/18 20:24 Dose: Not Given Aspirin (Ecotrin) 81 mg PO DAILY [facility] Last Admin: 04/09/18 09:31 Dose: 81 mg Carvedilol (Coreg) 12.5 mg PO Q12 [facility] Last Admin: 04/09/18 22:18 Dose: 12.5 mg Dextrose (Dextrose 50% Inj) 0 ml IV STAT PRN; Protocol PRN Reason: Hypoglycemia Protocol Dextrose (Glutose 15) 0 gm PO ONCE PRN; Protocol PRN Reason: Hypoglycemia Protocol Furosemide (Lasix) 40 mg IVP Q12 [facility] Last Admin: 04/09/18 22:19 Dose: 40 mg Glucagon (Glucagen Diagnostic Kit) 0 mg IM STAT PRN; Protocol PRN Reason: Hypoglycemia Protocol Heparin Sodium (Porcine) (Heparin) 5,000 units SC Q8 [facility] Last Admin: 04/09/18 22:19 Dose: 5,000 units Hydralazine HCl (Apresoline) 50 mg PO TID [facility] Last Admin: 04/09/18 18:26 Dose: 50 mg Hydrocortisone (Cortef) 10 mg PO BID [facility] Last Admin: 04/09/18 18:26 Dose: 10 mg Dextrose (Dextrose 5% In Water 1000 Ml) 1,000 mls @ 0 mls/hr IV .Q0M PRN; Protocol; Per Protocol PRN Reason: Hypoglycemia Protocol Insulin Human Regular (Novolin R) 0 unit SC ACHS [facility] PRN Reason: Protocol Last Admin: 04/09/18 21:36 Dose: Not Given Isosorbide Mononitrate (Imdur Er) 30 mg PO DAILY [facility] Last Admin: 04/09/18 10:18 Dose: 30 mg Levothyroxine Sodium (Synthroid) 50 mcg PO DAILY@0630 [facility] Last Admin: 04/09/18 05:38 Dose: 50 mcg Rosuvastatin Calcium (Crestor) 10 mg PO HS [facility] Last Admin: 04/09/18 22:20 Dose: 10 mg - Labs Labs: 04/08/18 17:57 04/08/18 18:33 PT 11.3 SECONDS (9.7-12.2) 04/08/18 17:57 INR 1.0 04/08/18 17:57 APTT 31 SECONDS (21-34) 04/08/18 17:57 Assessment and Plan - Assessment and Plan (Free Text) Assessment: Patient seen and evaluated personally by me. Plan of care d/w the hospital medical biller and as documented
--- NOTE | 2018-04-09 21:25 | CARD ---
APPROVED REPORT EKG Measurement Heart [id number] [id number] [id number] <Conclusion> Sinus rhythm with premature atrial complexes Low voltage QRS Cannot rule out Anterior infarct, age undetermined Abnormal ECG
[2018-04-09 22:57] LABS: SQUAMOUS EPITHIAL < 1 /hpf (0-5); URINE BACTERIA OCC (<OCC)
[2018-04-09 22:58] LABS: URINE BILIRUBIN NEGATIVE (NEGATIVE); URINE BLOOD NEGATIVE (NEGATIVE); URINE CLARITY Clear (Clear); URINE COLOR Straw (YELLOW); URINE GLUCOSE (UA) 3+ mg/dL (Normal); URINE LEUKOCYTE ESTERASE NEG Leu/uL (Negative); URINE PROTEIN 2+ mg/dL (NEGATIVE); URINE UROBILINOGEN NORMAL mg/dL (0.2-1.0)
[2018-04-10] MEDS: Albuterol-Ipratrop 3 mg / 0.5 (3 ml) UD INH SCH ×4 (01:23→19:46)
[2018-04-10] MEDS: Levothyroxine 50 MCG TAB PO SCH (05:33)
[2018-04-10 07:23] LABS: HEMOGLOBIN 9.3 g/dL (11.0-16.0); MEAN CELL VOLUME 83.6 fL (81.0-99.0); MEAN CORPUSCULAR HGB CONC 32.3 g/dL (33.0-37.0); MEAN PLATELET VOLUME 9.8 fL (7.2-11.7); RBC 3.46 Mil/uL (3.80-5.20); RED CELL DISTRIBUTION WIDTH 15.4 % (11.5-14.5); WHITE BLOOD COUNT 6.1 K/uL (4.8-10.8)
[2018-04-10 07:58] LABS: ALB/GLOB RATIO 1.3 (1.0-2.1); ALBUMIN 3.2 g/dL (3.5-5.0); CALCIUM 7.8 mg/dl (8.6-10.4)
[2018-04-10 08:32] LABS: FERRITIN 37.5 ng/mL
--- NOTE | 2018-04-10 08:58 | CP.PCM.PN ---
Subjective - Date & Time of Evaluation Date of Evaluation: 04/10/18 Time of Evaluation: 08:56 - Subjective Subjective: seen and examined worsening creatinine noted improved sob and leg swelling denies any cp/n/v/d/f/c 24 hour urine collection ongoing Objective - Vital Signs/Intake and Output Vital Signs (last 24 hours): Temp Pulse Resp BP Pulse Ox 97.2 F L 68 21 138/69 90 L 04/10/18 08:04 04/10/18 08:04 04/10/18 08:04 04/10/18 08:04 04/10/18 08:04 Intake and Output: 04/10/18 04/10/18 06:59 18:59 Intake Total 250 Balance 250 - Medications Medications: Current Medications Albuterol/Ipratropium (Duoneb 3 Mg/0.5 Mg (3 Ml) Ud) 3 ml INH RQ6 [facility] Last Admin: 04/10/18 07:17 Dose: Not Given Aspirin (Ecotrin) 81 mg PO DAILY [facility] Last Admin: 04/09/18 09:31 Dose: 81 mg Carvedilol (Coreg) 12.5 mg PO Q12 [facility] Last Admin: 04/09/18 22:18 Dose: 12.5 mg Dextrose (Dextrose 50% Inj) 0 ml IV STAT PRN; Protocol PRN Reason: Hypoglycemia Protocol Dextrose (Glutose 15) 0 gm PO ONCE PRN; Protocol PRN Reason: Hypoglycemia Protocol Furosemide (Lasix) 40 mg IVP Q12 [facility] Last Admin: 04/09/18 22:19 Dose: 40 mg Glucagon (Glucagen Diagnostic Kit) 0 mg IM STAT PRN; Protocol PRN Reason: Hypoglycemia Protocol Heparin Sodium (Porcine) (Heparin) 5,000 units SC Q8 [facility] Last Admin: 04/10/18 05:33 Dose: 5,000 units Hydralazine HCl (Apresoline) 50 mg PO TID [facility] Last Admin: 04/09/18 18:26 Dose: 50 mg Hydrocortisone (Cortef) 10 mg PO BID [facility] Last Admin: 04/09/18 18:26 Dose: 10 mg Dextrose (Dextrose 5% In Water 1000 Ml) 1,000 mls @ 0 mls/hr IV .Q0M PRN; Protocol; Per Protocol PRN Reason: Hypoglycemia Protocol Insulin Human Regular (Novolin R) 0 unit SC ACHS [facility] PRN Reason: Protocol Last Admin: 04/09/18 21:36 Dose: Not Given Isosorbide Mononitrate (Imdur Er) 30 mg PO DAILY [facility] Last Admin: 04/09/18 10:18 Dose: 30 mg Levothyroxine Sodium (Synthroid) 50 mcg PO DAILY@0630 [facility] Last Admin: 04/10/18 05:33 Dose: 50 mcg Rosuvastatin Calcium (Crestor) 10 mg PO HS [facility] Last Admin: 04/09/18 22:20 Dose: 10 mg - Labs Labs: 04/10/18 06:38 04/10/18 06:38 PT 11.3 SECONDS (9.7-12.2) 04/08/18 17:57 INR 1.0 04/08/18 17:57 APTT 31 SECONDS (21-34) 04/08/18 17:57 - Constitutional Appears: Non-toxic, No Acute Distress - Head Exam Head Exam: NORMAL INSPECTION, NORMOCEPHALIC - Eye Exam Eye Exam: Normal appearance, PERRL - ENT Exam ENT Exam: Mucous Membranes Moist, Normal Exam - Neck Exam Neck Exam: Normal Inspection - Respiratory Exam Respiratory Exam: Decreased Breath Sounds, NORMAL BREATHING PATTERN - GI/Abdominal Exam GI & Abdominal Exam: Distended, Soft, Normal Bowel Sounds - Extremities Exam Extremities Exam: Pedal Edema (1+) - Neurological Exam Neurological Exam: Alert, Awake, Oriented x3 - Psychiatric Exam Psychiatric exam: Normal Affect, Normal Mood - Skin Skin Exam: Dry, Intact Assessment and Plan (1) CHF (congestive heart failure) Status: Acute (2) Chronic kidney disease, stage IV (severe) Status: Acute (3) Type 2 diabetes mellitus with diabetic nephropathy Status: Acute (4) CAD (coronary artery disease) Status: Acute - Assessment and Plan (Free Text) Assessment: increase hydralazine dose , uncontrolled bp watch renal function, 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
[2018-04-10] MEDS: (Novolin R) Insulin Human Regular 100 units/ml vial SC SCH ×4 (10:13→21:44)
--- NOTE | 2018-04-10 13:03 | CARD ---
APPROVED REPORT Date of service: 04/10/2018 EXAM: Two-dimensional and M-mode echocardiogram with Doppler and color Doppler. Other Information Quality : AverageRhythm : NSR INDICATION Dizziness and Vertigo Dyspnea Cardiac Disease: CAD Congestive Heart Failure RISK FACTORS Hypertension Obesity Diabetes 2D DIMENSIONS IVSd1.2 (0.7-1.1cm)LVDd3.9 (3.9-5.9cm) PWd1.1 (0.7-1.1cm)LVDs2.3 (2.5-4.0cm) FS (%) 41.2 %LVEF (%)72.7 (>50%) M-Mode DIMENSIONS Left Atrium (MM)3.99 (2.5-4.0cm)Aortic Root2.81 (2.2-3.7cm) Aortic Cusp Exc.1.33 (1.5-2.0cm) Aortic Valve LVOT Peak Mpycudwj467.8cm/sLVOT VTI30.22cm Mitral Valve MV E Sflmsybe75.0cm/sMV A Eqfszgse575.3cm/sE/A ratio0.8 TDI E/Lateral E'0.0E/Medial E'0.0 Tricuspid Valve TR Peak Vugcnwde300re/sTR Peak Gr.[id number] LEFT VENTRICLE The left ventricle is normal size. There is borderline concentric left ventricular hypertrophy. Left ventricle systolic function is normal. The Ejection Fraction is >70%. There is normal LV segmental wall motion. Transmitral Doppler flow pattern is Grade I-abnormal relaxation pattern. There is no ventricular septal defect visualized. RIGHT VENTRICLE The right ventricle is normal size. The right ventricular systolic function is normal. ATRIA The left atrium is mildly dilated. The right atrium size is normal. AORTIC VALVE The aortic valve is mildly sclerotic. The aortic valve is tri-cuspid. No aortic regurgitation is present. There is no aortic valvular stenosis. MITRAL VALVE Mitral annular calcification is mild. There is no evidence of mitral valve prolapse. There is no mitral valve regurgitation noted. TRICUSPID VALVE The tricuspid valve is normal in structure. There is trace tricuspid regurgitation. There is no pulmonary hypertension. PULMONIC VALVE The pulmonic valve is not well visualized. There is no pulmonic valvular regurgitation. GREAT VESSELS The aortic root is normal in size. The ascending aorta is normal in size. The IVC is dilated. PERICARDIAL EFFUSION There is no pericardial effusion. <Conclusion> Left ventricle systolic function is normal. The Ejection Fraction is >70%. Transmitral Doppler flow pattern is Grade I-abnormal relaxation pattern.
[2018-04-10 16:14] VITALS: RESP 20
--- NOTE | 2018-04-10 19:51 | CP.PCM.PN ---
Subjective - Date & Time of Evaluation Date of Evaluation: 04/09/18 Time of Evaluation: 19:50 - Subjective Subjective: Patient is awake and responding. Sitting up. Eating. Leg swelling noted. Less than yesterday. No cough. Shortness of breath present On examination: Vital signs stable. Chest bilateral good air entry no wheezing or rales noted irregular heart on edema bilaterally noted Labs reviewed Discussed with cardiology, nephrology. Assessment and recommendation: 72-year-old female with a history of multiple medical problems including diabetes hypertension renal failure, CAD, status post a stent. Uncontrolled diabetes. Also patient has acute adenoma status post surgery. On steroid supplementation. Continue the current treatment. Diuretics. We will follow the patient. Objective - Vital Signs/Intake and Output Vital Signs (last 24 hours): Temp Pulse Resp BP Pulse Ox 98.2 F 66 20 187/90 H 95 04/10/18 16:00 04/10/18 17:34 04/10/18 17:34 04/10/18 17:34 04/10/18 16:00 Intake and Output: 04/10/18 04/11/18 18:59 06:59 Intake Total 600 Output Total 600 Balance 0 - Medications Medications: Current Medications Albuterol/Ipratropium (Duoneb 3 Mg/0.5 Mg (3 Ml) Ud) 3 ml INH RQ6 [facility] Last Admin: 04/10/18 19:46 Dose: Not Given Aspirin (Ecotrin) 81 mg PO DAILY [facility] Last Admin: 04/10/18 10:18 Dose: 81 mg Carvedilol (Coreg) 12.5 mg PO Q12 [facility] Last Admin: 04/10/18 10:18 Dose: 12.5 mg Dextrose (Dextrose 50% Inj) 0 ml IV STAT PRN; Protocol PRN Reason: Hypoglycemia Protocol Dextrose (Glutose 15) 0 gm PO ONCE PRN; Protocol PRN Reason: Hypoglycemia Protocol Furosemide (Lasix) 40 mg IVP Q12 [facility] Last Admin: 04/10/18 10:19 Dose: 40 mg Glucagon (Glucagen Diagnostic Kit) 0 mg IM STAT PRN; Protocol PRN Reason: Hypoglycemia Protocol Heparin Sodium (Porcine) (Heparin) 5,000 units SC Q8 [facility] Last Admin: 04/10/18 13:48 Dose: 5,000 units Hydralazine HCl (Apresoline) 75 mg PO TID [facility] Last Admin: 04/10/18 17:36 Dose: 75 mg Hydrocortisone (Cortef) 10 mg PO BID [facility] Last Admin: 04/10/18 17:36 Dose: 10 mg Dextrose (Dextrose 5% In Water 1000 Ml) 1,000 mls @ 0 mls/hr IV .Q0M PRN; Protocol; Per Protocol PRN Reason: Hypoglycemia Protocol Insulin Human Regular (Novolin R) 0 unit SC ACHS [facility] PRN Reason: Protocol Last Admin: 04/10/18 17:30 Dose: 4 units Isosorbide Mononitrate (Imdur Er) 30 mg PO DAILY [facility] Last Admin: 04/10/18 10:25 Dose: 30 mg Levothyroxine Sodium (Synthroid) 50 mcg PO DAILY@0630 [facility] Last Admin: 04/10/18 05:33 Dose: 50 mcg Rosuvastatin Calcium (Crestor) 10 mg PO HS [facility] Last Admin: 04/09/18 22:20 Dose: 10 mg - Labs Labs: 04/10/18 06:38 04/10/18 06:38 PT 11.3 SECONDS (9.7-12.2) 04/08/18 17:57 INR 1.0 04/08/18 17:57 APTT 31 SECONDS (21-34) 04/08/18 17:57
--- NOTE | 2018-04-10 19:53 | CP.PCM.PN ---
Subjective - Date & Time of Evaluation Date of Evaluation: 04/10/18 Time of Evaluation: 19:51 - Subjective Subjective: Patient having some improvement in the leg swelling. Still having shortness of breath. She has no chest pain. Denies any nausea. Shortness of breath on exertion noted On examination: Vital signs stable. Elevated blood pressure noted. Chest bilateral wheezing noted expiratory wheezing noted. Abdomen obese. Extremities edema bilaterally noted Labs reviewed Slight worsening creatinine level noted Assessment and recommendation: 72-year-old female with a history of CAD COPD hypertension renal insufficiency status post a stent diabetes uncontrolled pituitary adenoma status post surgery. On steroid supplementation. We will closely monitor. The overall prognosis is poor. Patient is now admitted with acute renal insufficiency worsening. Also fluid overload status, decompensated heart failure systolic will follow the pt Objective - Vital Signs/Intake and Output Vital Signs (last 24 hours): Temp Pulse Resp BP Pulse Ox 98.2 F 66 20 187/90 H 95 04/10/18 16:00 04/10/18 17:34 04/10/18 17:34 04/10/18 17:34 04/10/18 16:00 Intake and Output: 04/10/18 04/11/18 18:59 06:59 Intake Total 600 Output Total 600 Balance 0 - Medications Medications: Current Medications Albuterol/Ipratropium (Duoneb 3 Mg/0.5 Mg (3 Ml) Ud) 3 ml INH RQ6 [facility] Last Admin: 04/10/18 19:46 Dose: Not Given Aspirin (Ecotrin) 81 mg PO DAILY [facility] Last Admin: 04/10/18 10:18 Dose: 81 mg Carvedilol (Coreg) 12.5 mg PO Q12 [facility] Last Admin: 04/10/18 10:18 Dose: 12.5 mg Dextrose (Dextrose 50% Inj) 0 ml IV STAT PRN; Protocol PRN Reason: Hypoglycemia Protocol Dextrose (Glutose 15) 0 gm PO ONCE PRN; Protocol PRN Reason: Hypoglycemia Protocol Furosemide (Lasix) 40 mg IVP Q12 [facility] Last Admin: 04/10/18 10:19 Dose: 40 mg Glucagon (Glucagen Diagnostic Kit) 0 mg IM STAT PRN; Protocol PRN Reason: Hypoglycemia Protocol Heparin Sodium (Porcine) (Heparin) 5,000 units SC Q8 [facility] Last Admin: 04/10/18 13:48 Dose: 5,000 units Hydralazine HCl (Apresoline) 75 mg PO TID [facility] Last Admin: 04/10/18 17:36 Dose: 75 mg Hydrocortisone (Cortef) 10 mg PO BID [facility] Last Admin: 04/10/18 17:36 Dose: 10 mg Dextrose (Dextrose 5% In Water 1000 Ml) 1,000 mls @ 0 mls/hr IV .Q0M PRN; Protocol; Per Protocol PRN Reason: Hypoglycemia Protocol Insulin Human Regular (Novolin R) 0 unit SC ACHS [facility] PRN Reason: Protocol Last Admin: 04/10/18 17:30 Dose: 4 units Isosorbide Mononitrate (Imdur Er) 30 mg PO DAILY [facility] Last Admin: 04/10/18 10:25 Dose: 30 mg Levothyroxine Sodium (Synthroid) 50 mcg PO DAILY@0630 [facility] Last Admin: 04/10/18 05:33 Dose: 50 mcg Rosuvastatin Calcium (Crestor) 10 mg PO HS [facility] Last Admin: 04/09/18 22:20 Dose: 10 mg - Labs Labs: 04/10/18 06:38 04/10/18 06:38 PT 11.3 SECONDS (9.7-12.2) 04/08/18 17:57 INR 1.0 04/08/18 17:57 APTT 31 SECONDS (21-34) 04/08/18 17:57
--- NOTE | 2018-04-10 22:56 | CP.PCM.PN ---
Subjective - Date & Time of Evaluation Date of Evaluation: 04/10/18 Time of Evaluation: 16:35 - Subjective Subjective: Patient seen and evaluated Denies chest pain and dyspnea Objective - Vital Signs/Intake and Output Vital Signs (last 24 hours): Temp Pulse Resp BP Pulse Ox 97.9 F 71 20 151/69 H 100 04/10/18 22:30 04/10/18 22:35 04/10/18 22:35 04/10/18 22:35 04/10/18 22:35 Intake and Output: 04/10/18 04/11/18 18:59 06:59 Intake Total 600 500 Output Total 600 Balance 0 500 - Medications Medications: Current Medications Albuterol/Ipratropium (Duoneb 3 Mg/0.5 Mg (3 Ml) Ud) 3 ml INH RQ6 [facility] Last Admin: 04/10/18 19:46 Dose: Not Given Aspirin (Ecotrin) 81 mg PO DAILY [facility] Last Admin: 04/10/18 10:18 Dose: 81 mg Carvedilol (Coreg) 12.5 mg PO Q12 [facility] Last Admin: 04/10/18 10:18 Dose: 12.5 mg Dextrose (Dextrose 50% Inj) 0 ml IV STAT PRN; Protocol PRN Reason: Hypoglycemia Protocol Dextrose (Glutose 15) 0 gm PO ONCE PRN; Protocol PRN Reason: Hypoglycemia Protocol Furosemide (Lasix) 40 mg IVP Q12 [facility] Last Admin: 04/10/18 22:34 Dose: 40 mg Glucagon (Glucagen Diagnostic Kit) 0 mg IM STAT PRN; Protocol PRN Reason: Hypoglycemia Protocol Heparin Sodium (Porcine) (Heparin) 5,000 units SC Q8 [facility] Last Admin: 04/10/18 22:35 Dose: 5,000 units Hydralazine HCl (Apresoline) 75 mg PO TID [facility] Last Admin: 04/10/18 17:36 Dose: 75 mg Hydrocortisone (Cortef) 10 mg PO BID [facility] Last Admin: 04/10/18 17:36 Dose: 10 mg Dextrose (Dextrose 5% In Water 1000 Ml) 1,000 mls @ 0 mls/hr IV .Q0M PRN; Protocol; Per Protocol PRN Reason: Hypoglycemia Protocol Insulin Human Regular (Novolin R) 0 unit SC ACHS [facility] PRN Reason: Protocol Last Admin: 04/10/18 21:44 Dose: Not Given Isosorbide Mononitrate (Imdur Er) 30 mg PO DAILY [facility] Last Admin: 04/10/18 10:25 Dose: 30 mg Levothyroxine Sodium (Synthroid) 50 mcg PO DAILY@0630 [facility] Last Admin: 04/10/18 05:33 Dose: 50 mcg Rosuvastatin Calcium (Crestor) 10 mg PO HS [facility] Last Admin: 04/10/18 22:34 Dose: 10 mg - Labs Labs: 04/10/18 06:38 04/10/18 06:38 PT 11.3 SECONDS (9.7-12.2) 04/08/18 17:57 INR 1.0 04/08/18 17:57 APTT 31 SECONDS (21-34) 04/08/18 17:57
[2018-04-11 00:42] LABS: URINE 24 HOUR TOTAL PROTEIN 7726.5 mg/24hr (42-225)
[2018-04-11] MEDS: Albuterol-Ipratrop 3 mg / 0.5 (3 ml) UD INH SCH ×4 (01:02→19:49)
[2018-04-11] MEDS: Levothyroxine 50 MCG TAB PO SCH (05:51)
[2018-04-11 07:42] LABS: BASO # 0.1 K/uL (0.0-0.2); BASO % 0.9 % (0.0-2.0); EOS # 0.5 K/uL (0.0-0.7); EOS % 7.1 % (0.0-4.0); HEMOGLOBIN 9.6 g/dL (11.0-16.0); LYMPH # 1.6 K/uL (1.0-4.3); LYMPH % 25.5 % (20.0-40.0); MEAN CORPUSCULAR HEMOGLOBIN 27.8 pg (27.0-31.0); MEAN CORPUSCULAR HGB CONC 33.5 g/dL (33.0-37.0); MEAN PLATELET VOLUME 9.8 fL (7.2-11.7); MONO # 0.4 K/uL (0.0-0.8); MONO % 6.7 % (0.0-10.0); NEUT # 3.9 K/uL (1.8-7.0); NEUT % 59.8 % (50.0-75.0); NRBC % 0.1 % (0.0-2.0); RBC 3.44 Mil/uL (3.80-5.20); RED CELL DISTRIBUTION WIDTH 15.3 % (11.5-14.5); WHITE BLOOD COUNT 6.4 K/uL (4.8-10.8)
[2018-04-11 07:56] LABS: ALB/GLOB RATIO 1.2 (1.0-2.1); ALBUMIN 3.2 g/dL (3.5-5.0); CALCIUM 7.8 mg/dl (8.6-10.4)
[2018-04-11] MEDS: (Novolin R) Insulin Human Regular 100 units/ml vial SC SCH ×4 (08:11→22:33)
--- NOTE | 2018-04-11 13:38 | CP.PCM.PN ---
<Padma Cunningham - Last Filed: 04/11/18 13:35> Subjective - Date & Time of Evaluation Date of Evaluation: 04/11/18 Time of Evaluation: 10:30 - Subjective Subjective: PGY2- Progress Note for Dr. Wagoner Patient seen and examined at bedside. Patient says she is feeling much less short of breath. Patient denies any chest pain or palpitations. Patient denies any abdominal pain, nausea, vomiting, diarrhea, or constipation. Objective - Vital Signs/Intake and Output Vital Signs (last 24 hours): Temp Pulse Resp BP Pulse Ox 97.9 F 60 20 186/78 H 94 L 04/11/18 07:43 04/11/18 07:53 04/11/18 07:43 04/11/18 10:49 04/11/18 07:43 Intake and Output: 04/11/18 04/11/18 06:59 18:59 Intake Total 500 Balance 500 - Medications Medications: Current Medications Albuterol/Ipratropium (Duoneb 3 Mg/0.5 Mg (3 Ml) Ud) 3 ml INH RQ6 [facility] Last Admin: 04/11/18 13:15 Dose: 3 ml Aspirin (Ecotrin) 81 mg PO DAILY [facility] Last Admin: 04/11/18 10:58 Dose: 81 mg Carvedilol (Coreg) 12.5 mg PO Q12 [facility] Last Admin: 04/11/18 10:49 Dose: 12.5 mg Dextrose (Dextrose 50% Inj) 0 ml IV STAT PRN; Protocol PRN Reason: Hypoglycemia Protocol Dextrose (Glutose 15) 0 gm PO ONCE PRN; Protocol PRN Reason: Hypoglycemia Protocol Furosemide (Lasix) 40 mg IVP Q12 [facility] Last Admin: 04/11/18 10:49 Dose: 40 mg Glucagon (Glucagen Diagnostic Kit) 0 mg IM STAT PRN; Protocol PRN Reason: Hypoglycemia Protocol Heparin Sodium (Porcine) (Heparin) 5,000 units SC Q8 [facility] Last Admin: 04/11/18 05:51 Dose: 5,000 units Hydralazine HCl (Apresoline) 75 mg PO TID [facility] Last Admin: 04/11/18 10:48 Dose: 75 mg Hydrocortisone (Cortef) 10 mg PO BID [facility] Last Admin: 04/11/18 10:48 Dose: 10 mg Dextrose (Dextrose 5% In Water 1000 Ml) 1,000 mls @ 0 mls/hr IV .Q0M PRN; Protocol; Per Protocol PRN Reason: Hypoglycemia Protocol Insulin Human Regular (Novolin R) 0 unit SC ACHS [facility] PRN Reason: Protocol Last Admin: 04/11/18 12:51 Dose: 3 units Isosorbide Mononitrate (Imdur Er) 30 mg PO DAILY [facility] Last Admin: 04/11/18 10:48 Dose: 30 mg Levothyroxine Sodium (Synthroid) 50 mcg PO DAILY@0630 [facility] Last Admin: 04/11/18 05:51 Dose: 50 mcg Rosuvastatin Calcium (Crestor) 10 mg PO HS [facility] Last Admin: 04/10/18 22:34 Dose: 10 mg - Labs Labs: 04/11/18 07:25 04/11/18 07:25 PT 11.3 SECONDS (9.7-12.2) 04/08/18 17:57 INR 1.0 04/08/18 17:57 APTT 31 SECONDS (21-34) 04/08/18 17:57 - Constitutional Appears: Non-toxic, No Acute Distress - Head Exam Head Exam: ATRAUMATIC, NORMAL INSPECTION, NORMOCEPHALIC - Eye Exam Eye Exam: EOMI, Normal appearance - ENT Exam ENT Exam: Mucous Membranes Moist - Respiratory Exam Respiratory Exam: Rales (lower lung bases b/l), NORMAL BREATHING PATTERN - Cardiovascular Exam Cardiovascular Exam: REGULAR RHYTHM, RRR - GI/Abdominal Exam GI & Abdominal Exam: Soft, Normal Bowel Sounds. absent: Tenderness - Extremities Exam Extremities Exam: Full ROM, Normal Inspection. absent: Pedal Edema - Neurological Exam Neurological Exam: Alert, Awake, Oriented x3 - Psychiatric Exam Psychiatric exam: Normal Affect, Normal Mood - Skin Skin Exam: Intact, Normal Color, Warm Assessment and Plan - Assessment and Plan (Free Text) Assessment: CHF exacerbation Cxray: no active pulmonary disease, mild cardiomegaly and pulmonary venous congestion Pro BNP: 5740 ECHO: LVEF- 72.7, transmitral doppler flow pattern is Grade I- abnormal relaxation pattern Cortef 10mg po BID Lasix 40mg ivp q12h Duonebs q6h Worsening CKD nephro consulted, help appreciated 24 hour urine collection urine protein 24 hr: 7726.5 CAD ASA 81mg po daily Carvedilol 12.5mg po q12h Imdur 30mg po daily Crestor 10mg po HS HTN Hydralazine 75mg po TID Hypothyroidism Synthroid 50mcg po daily DMII ISS discussed with Dr. Wagoner <Jimmy Wagoner - Last Filed: 04/12/18 00:30> Objective - Vital Signs/Intake and Output Vital Signs (last 24 hours): Temp Pulse Resp BP Pulse Ox 98.2 F 64 20 188/69 H 97 04/11/18 23:09 04/11/18 23:09 04/11/18 23:09 04/11/18 23:09 04/11/18 23:09 Intake and Output: 04/11/18 04/12/18 18:59 06:59 Intake Total 600 Balance 600 - Medications Medications: Current Medications Albuterol/Ipratropium (Duoneb 3 Mg/0.5 Mg (3 Ml) Ud) 3 ml INH RQ6 [facility] Last Admin: 04/11/18 19:49 Dose: 3 ml Aspirin (Ecotrin) 81 mg PO DAILY [facility] Last Admin: 04/11/18 10:58 Dose: 81 mg Carvedilol (Coreg) 12.5 mg PO Q12 [facility] Last Admin: 04/11/18 22:34 Dose: 12.5 mg Dextrose (Dextrose 50% Inj) 0 ml IV STAT PRN; Protocol PRN Reason: Hypoglycemia Protocol Dextrose (Glutose 15) 0 gm PO ONCE PRN; Protocol PRN Reason: Hypoglycemia Protocol Furosemide (Lasix) 40 mg IVP Q12 [facility] Last Admin: 04/11/18 22:34 Dose: 40 mg Glucagon (Glucagen Diagnostic Kit) 0 mg IM STAT PRN; Protocol PRN Reason: Hypoglycemia Protocol Heparin Sodium (Porcine) (Heparin) 5,000 units SC Q8 [facility] Last Admin: 04/11/18 22:35 Dose: 5,000 units Hydralazine HCl (Apresoline) 75 mg PO TID [facility] Last Admin: 04/11/18 17:46 Dose: 75 mg Hydrocortisone (Cortef) 10 mg PO BID [facility] Last Admin: 04/11/18 17:46 Dose: 10 mg Dextrose (Dextrose 5% In Water 1000 Ml) 1,000 mls @ 0 mls/hr IV .Q0M PRN; Protocol; Per Protocol PRN Reason: Hypoglycemia Protocol Insulin Human Regular (Novolin R) 0 unit SC ACHS [facility] PRN Reason: Protocol Last Admin: 04/11/18 22:33 Dose: 2 units Isosorbide Mononitrate (Imdur Er) 30 mg PO DAILY [facility] Last Admin: 04/11/18 10:48 Dose: 30 mg Levothyroxine Sodium (Synthroid) 50 mcg PO DAILY@0630 [facility] Last Admin: 04/11/18 05:51 Dose: 50 mcg Rosuvastatin Calcium (Crestor) 10 mg PO [facility] Last Admin: 04/11/18 22:34 Dose: 10 mg - Labs Labs: 04/11/18 07:25 04/11/18 07:25 PT 11.3 SECONDS (9.7-12.2) 04/08/18 17:57 INR 1.0 04/08/18 17:57 APTT 31 SECONDS (21-34) 04/08/18 17:57 Assessment and Plan - Assessment and Plan (Free Text) Assessment: Patient seen and evaluated personally by me Plan of care d/w the resident and as documented
--- NOTE | 2018-04-11 14:40 | CP.PCM.PN ---
Subjective - Date & Time of Evaluation Date of Evaluation: 04/11/18 Time of Evaluation: 14:37 - Subjective Subjective: less dyspneic GFR<15 has nephrotic range proteinuria HTN labile would consider renal transplant eval as GFR low and pt with recurrent CHF otherwise would consider AV access soon Objective - Vital Signs/Intake and Output Vital Signs (last 24 hours): Temp Pulse Resp BP Pulse Ox 97.9 F 60 20 134/73 94 L 04/11/18 07:43 04/11/18 07:53 04/11/18 07:43 04/11/18 13:56 04/11/18 07:43 Intake and Output: 04/11/18 04/11/18 06:59 18:59 Intake Total 500 Balance 500 - Medications Medications: Current Medications Albuterol/Ipratropium (Duoneb 3 Mg/0.5 Mg (3 Ml) Ud) 3 ml INH RQ6 [facility] Last Admin: 04/11/18 13:15 Dose: 3 ml Aspirin (Ecotrin) 81 mg PO DAILY [facility] Last Admin: 04/11/18 10:58 Dose: 81 mg Carvedilol (Coreg) 12.5 mg PO Q12 [facility] Last Admin: 04/11/18 10:49 Dose: 12.5 mg Dextrose (Dextrose 50% Inj) 0 ml IV STAT PRN; Protocol PRN Reason: Hypoglycemia Protocol Dextrose (Glutose 15) 0 gm PO ONCE PRN; Protocol PRN Reason: Hypoglycemia Protocol Furosemide (Lasix) 40 mg IVP Q12 [facility] Last Admin: 04/11/18 10:49 Dose: 40 mg Glucagon (Glucagen Diagnostic Kit) 0 mg IM STAT PRN; Protocol PRN Reason: Hypoglycemia Protocol Heparin Sodium (Porcine) (Heparin) 5,000 units SC Q8 [facility] Last Admin: 04/11/18 13:55 Dose: 5,000 units Hydralazine HCl (Apresoline) 75 mg PO TID [facility] Last Admin: 04/11/18 13:55 Dose: 75 mg Hydrocortisone (Cortef) 10 mg PO BID [facility] Last Admin: 04/11/18 10:48 Dose: 10 mg Dextrose (Dextrose 5% In Water 1000 Ml) 1,000 mls @ 0 mls/hr IV .Q0M PRN; Protocol; Per Protocol PRN Reason: Hypoglycemia Protocol Insulin Human Regular (Novolin R) 0 unit SC ACHS [facility] PRN Reason: Protocol Last Admin: 04/11/18 12:51 Dose: 3 units Isosorbide Mononitrate (Imdur Er) 30 mg PO DAILY [facility] Last Admin: 04/11/18 10:48 Dose: 30 mg Levothyroxine Sodium (Synthroid) 50 mcg PO DAILY@0630 [facility] Last Admin: 04/11/18 05:51 Dose: 50 mcg Rosuvastatin Calcium (Crestor) 10 mg PO HS [facility] Last Admin: 04/10/18 22:34 Dose: 10 mg - Labs Labs: 04/11/18 07:25 04/11/18 07:25 PT 11.3 SECONDS (9.7-12.2) 04/08/18 17:57 INR 1.0 04/08/18 17:57 APTT 31 SECONDS (21-34) 04/08/18 17:57 - Constitutional Appears: No Acute Distress, Chronically Ill - Head Exam Head Exam: ATRAUMATIC, NORMAL INSPECTION - Eye Exam Eye Exam: EOMI, Normal appearance - Neck Exam Neck Exam: Normal Inspection. absent: Tenderness - Respiratory Exam Respiratory Exam: Clear to Ausculation Bilateral, NORMAL BREATHING PATTERN - Cardiovascular Exam Cardiovascular Exam: REGULAR RHYTHM, +S1 - GI/Abdominal Exam GI & Abdominal Exam: Soft. absent: Tenderness - Extremities Exam Extremities Exam: Normal Inspection. absent: Tenderness - Neurological Exam Neurological Exam: Alert, CN II-XII Intact - Skin Skin Exam: Dry, Warm Assessment and Plan (1) Type 2 diabetes mellitus with diabetic nephropathy Status: Acute (2) CHF (congestive heart failure) Status: Acute (3) Chronic kidney disease, stage IV (severe) Status: Acute - Assessment and Plan (Free Text) Plan: IV lasix- can change to po soon; as per medicine monitor BP- adjust meds as needed recommend renal TP evaluation soon
--- NOTE | 2018-04-11 20:53 | CP.PCM.PN ---
Subjective - Date & Time of Evaluation Date of Evaluation: 04/11/18 Time of Evaluation: 20:53 - Subjective Subjective: Patient is currently feeling slightly better. Still SOB noted. Leg swelling still noted. Denies any chest pain. No nausea vomiting. On examination: Vital signs stable. Chest bilateral good air entry regular heart sound nontender abdomen. Extremities 2+ pedal edema noted Echocardiogram done today showing evidence of ejection fraction 72%. Possible diastolic heart failure Assessment and recognition: 72-year-old female with a history of diabetes hypertension and CAD status post a stent, pituitary adenoma status post surgery, renal insufficiency admitted to the hospital with worsening renal insufficiency, and associated diastolic heart failure. Chronic. Continue the diuretics. Evaluation by kiln operator. Continue the diuretics and will follow-up the patient Objective - Vital Signs/Intake and Output Vital Signs (last 24 hours): Temp Pulse Resp BP Pulse Ox 98.2 F 60 20 169/72 H 95 04/11/18 15:07 04/11/18 15:07 04/11/18 15:07 04/11/18 15:07 04/11/18 15:07 Intake and Output: 04/11/18 04/12/18 18:59 06:59 Intake Total 600 Balance 600 - Medications Medications: Current Medications Albuterol/Ipratropium (Duoneb 3 Mg/0.5 Mg (3 Ml) Ud) 3 ml INH RQ6 [facility] Last Admin: 04/11/18 19:49 Dose: 3 ml Aspirin (Ecotrin) 81 mg PO DAILY [facility] Last Admin: 04/11/18 10:58 Dose: 81 mg Carvedilol (Coreg) 12.5 mg PO Q12 [facility] Last Admin: 04/11/18 10:49 Dose: 12.5 mg Dextrose (Dextrose 50% Inj) 0 ml IV STAT PRN; Protocol PRN Reason: Hypoglycemia Protocol Dextrose (Glutose 15) 0 gm PO ONCE PRN; Protocol PRN Reason: Hypoglycemia Protocol Furosemide (Lasix) 40 mg IVP Q12 [facility] Last Admin: 04/11/18 10:49 Dose: 40 mg Glucagon (Glucagen Diagnostic Kit) 0 mg IM STAT PRN; Protocol PRN Reason: Hypoglycemia Protocol Heparin Sodium (Porcine) (Heparin) 5,000 units SC Q8 [facility] Last Admin: 04/11/18 13:55 Dose: 5,000 units Hydralazine HCl (Apresoline) 75 mg PO TID [facility] Last Admin: 04/11/18 17:46 Dose: 75 mg Hydrocortisone (Cortef) 10 mg PO BID [facility] Last Admin: 04/11/18 17:46 Dose: 10 mg Dextrose (Dextrose 5% In Water 1000 Ml) 1,000 mls @ 0 mls/hr IV .Q0M PRN; Protocol; Per Protocol PRN Reason: Hypoglycemia Protocol Insulin Human Regular (Novolin R) 0 unit SC ACHS [facility] PRN Reason: Protocol Last Admin: 04/11/18 17:30 Dose: 4 units Isosorbide Mononitrate (Imdur Er) 30 mg PO DAILY [facility] Last Admin: 04/11/18 10:48 Dose: 30 mg Levothyroxine Sodium (Synthroid) 50 mcg PO DAILY@0630 [facility] Last Admin: 04/11/18 05:51 Dose: 50 mcg Rosuvastatin Calcium (Crestor) 10 mg PO HS [facility] Last Admin: 04/10/18 22:34 Dose: 10 mg - Labs Labs: 04/11/18 07:25 04/11/18 07:25 PT 11.3 SECONDS (9.7-12.2) 04/08/18 17:57 INR 1.0 04/08/18 17:57 APTT 31 SECONDS (21-34) 04/08/18 17:57
--- NOTE | 2018-04-11 20:54 | PQF ---
PROVIDER RESPONSE TEXT: see my note REVIEWER QUERY TEXT: Heart Failure Acuity and Type Congestive Heart Failure is documented in the Medical Record. Please document the type and acuity (in cludes probable or suspected) Such as: Type: -- Combined systolic and diastolic (heart failure with reduced ejection fraction and diastolic) dysfu nction -- Diastolic (HFpEF) -- Systolic (HFrEF) -- Left heart failure -- Right heart failure -- Right heart failure due to left heart failure -- High output failure -- End stage heart failure -- Other, please specify Acuity: -- Acute -- Chronic -- Acute on chronic -- Other, please specify Also please document the underlying cause of the CHF (includes probable or suspected)[[Acute on Chron ic Diastolic CHF::Acute on Chronic Diastolic CHF}} The patient's Clinical Indicators include: 72 Y O F admitted with shortness of breath, Pedal Edema (+1 pitting edema) PMH: CAD, CHF, Diabetes, HTN, Hypercholesterolemia, Chronic Kidney Disease CXR? Mild cardiomegaly and pulmonary venous congestion. Echo? Left ventricle systolic function is normal. The Ejection Fraction is >70%. Fluid overload. 04/08/18 Cardiology Cx: 72 F admitted for diastolic CHF Rx: IV Lasix q 12 hrs, Coreg Query created by: Sylwia Davis on 04/11/2018 6:48 PM Electronically signed by: Renato Orlando MD 04/11/2018 8:51 PM
[2018-04-12] MEDS: Albuterol-Ipratrop 3 mg / 0.5 (3 ml) UD INH SCH ×4 (01:26→19:28)
[2018-04-12] MEDS: Levothyroxine 50 MCG TAB PO SCH (05:58)
[2018-04-12 07:13] LABS: ALB/GLOB RATIO 1.3 (1.0-2.1); ALBUMIN 3.2 g/dL (3.5-5.0); CALCIUM 7.8 mg/dl (8.6-10.4)
[2018-04-12] MEDS: (Novolin R) Insulin Human Regular 100 units/ml vial SC SCH ×4 (08:26→21:16)
--- NOTE | 2018-04-12 10:46 | CP.PCM.PN ---
Subjective - Date & Time of Evaluation Date of Evaluation: 04/12/18 Time of Evaluation: 10:44 - Subjective Subjective: less dyspneic appears depressed creat same at 3.7 advised she will likely need eventual dialysis iron stores low Objective - Vital Signs/Intake and Output Vital Signs (last 24 hours): Temp Pulse Resp BP Pulse Ox 98.8 F 67 20 146/74 96 04/12/18 07:15 04/12/18 07:15 04/12/18 07:15 04/12/18 09:17 04/12/18 07:15 Intake and Output: 04/12/18 04/12/18 06:59 18:59 Intake Total 350 Balance 350 - Medications Medications: Current Medications Albuterol/Ipratropium (Duoneb 3 Mg/0.5 Mg (3 Ml) Ud) 3 ml INH RQ6 [facility] Last Admin: 04/12/18 07:22 Dose: Not Given Aspirin (Ecotrin) 81 mg PO DAILY [facility] Last Admin: 04/12/18 09:15 Dose: 81 mg Carvedilol (Coreg) 12.5 mg PO Q12 [facility] Last Admin: 04/12/18 09:15 Dose: 12.5 mg Dextrose (Dextrose 50% Inj) 0 ml IV STAT PRN; Protocol PRN Reason: Hypoglycemia Protocol Dextrose (Glutose 15) 0 gm PO ONCE PRN; Protocol PRN Reason: Hypoglycemia Protocol Furosemide (Lasix) 40 mg IVP Q12 [facility] Last Admin: 04/12/18 09:17 Dose: 40 mg Glucagon (Glucagen Diagnostic Kit) 0 mg IM STAT PRN; Protocol PRN Reason: Hypoglycemia Protocol Heparin Sodium (Porcine) (Heparin) 5,000 units SC Q8 [facility] Last Admin: 04/12/18 05:57 Dose: 5,000 units Hydralazine HCl (Apresoline) 75 mg PO TID [facility] Last Admin: 04/12/18 09:15 Dose: 75 mg Hydrocortisone (Cortef) 10 mg PO BID [facility] Last Admin: 04/12/18 09:15 Dose: 10 mg Dextrose (Dextrose 5% In Water 1000 Ml) 1,000 mls @ 0 mls/hr IV .Q0M PRN; Protocol; Per Protocol PRN Reason: Hypoglycemia Protocol Insulin Human Regular (Novolin R) 0 unit SC ACHS [facility] PRN Reason: Protocol Last Admin: 07/12/18 08:26 Dose: 3 units Isosorbide Mononitrate (Imdur Er) 30 mg PO DAILY [facility] Last Admin: 04/11/18 10:48 Dose: 30 mg Levothyroxine Sodium (Synthroid) 50 mcg PO DAILY@0630 [facility] Last Admin: 04/12/18 05:58 Dose: 50 mcg Rosuvastatin Calcium (Crestor) 10 mg PO HS [facility] Last Admin: 04/11/18 22:34 Dose: 10 mg - Labs Labs: 04/11/18 07:25 04/12/18 06:37 PT 11.3 SECONDS (9.7-12.2) 04/08/18 17:57 INR 1.0 04/08/18 17:57 APTT 31 SECONDS (21-34) 04/08/18 17:57 - Constitutional Appears: No Acute Distress, Chronically Ill - Head Exam Head Exam: ATRAUMATIC, NORMAL INSPECTION - Eye Exam Eye Exam: EOMI, Normal appearance - Neck Exam Neck Exam: Normal Inspection. absent: Tenderness - Respiratory Exam Respiratory Exam: Clear to Ausculation Bilateral, NORMAL BREATHING PATTERN - Cardiovascular Exam Cardiovascular Exam: REGULAR RHYTHM, +S1 - GI/Abdominal Exam GI & Abdominal Exam: Soft. absent: Tenderness - Extremities Exam Extremities Exam: Normal Inspection. absent: Tenderness - Neurological Exam Neurological Exam: Awake, CN II-XII Intact - Skin Skin Exam: Dry, Warm Assessment and Plan (1) Type 2 diabetes mellitus with diabetic nephropathy Status: Acute (2) CHF (congestive heart failure) Status: Acute (3) Chronic kidney disease, stage IV (severe) Status: Acute - Assessment and Plan (Free Text) Plan: change to po lasix IV iron
[2018-04-12] MEDS: Ferric Sodium Gluconat Complex 62.5 mg/5 ml Vial IVPB SCH (11:29)
--- NOTE | 2018-04-12 11:46 | CP.PCM.PN ---
<Padma Cunningham - Last Filed: 04/12/18 12:57> Subjective - Date & Time of Evaluation Date of Evaluation: 04/12/18 Time of Evaluation: 10:30 - Subjective Subjective: PGY2- Progress Note for Dr. Wagoner Patient seen and examined at bedside and in no acute distress. Patient says her breathing feels much better. Patient denies any chest pain or palpitations. Patient denies any abdominal pain, nausea, vomiting, diarrhea, or constipation. Objective - Vital Signs/Intake and Output Vital Signs (last 24 hours): Temp Pulse Resp BP Pulse Ox 98.8 F 67 20 146/74 96 04/12/18 07:15 04/12/18 07:15 04/12/18 07:15 04/12/18 09:17 04/12/18 07:15 Intake and Output: 04/12/18 04/12/18 06:59 18:59 Intake Total 350 Balance 350 - Medications Medications: Current Medications Albuterol/Ipratropium (Duoneb 3 Mg/0.5 Mg (3 Ml) Ud) 3 ml INH RQ6 [facility] Last Admin: 04/12/18 07:22 Dose: Not Given Aspirin (Ecotrin) 81 mg PO DAILY [facility] Last Admin: 04/12/18 09:15 Dose: 81 mg Carvedilol (Coreg) 12.5 mg PO Q12 [facility] Last Admin: 04/12/18 09:15 Dose: 12.5 mg Dextrose (Dextrose 50% Inj) 0 ml IV STAT PRN; Protocol PRN Reason: Hypoglycemia Protocol Dextrose (Glutose 15) 0 gm PO ONCE PRN; Protocol PRN Reason: Hypoglycemia Protocol Ferric Sodium Gluconate Complex (Ferrlecit) 125 mg IVPB DAILY [facility] Stop: 04/16/18 11:01 Last Admin: 04/12/18 11:29 Dose: 125 mg Furosemide (Lasix) 80 mg PO BID [facility] Glucagon (Glucagen Diagnostic Kit) 0 mg IM STAT PRN; Protocol PRN Reason: Hypoglycemia Protocol Heparin Sodium (Porcine) (Heparin) 5,000 units SC Q8 [facility] Last Admin: 04/12/18 05:57 Dose: 5,000 units Hydralazine HCl (Apresoline) 75 mg PO TID [facility] Last Admin: 04/12/18 09:15 Dose: 75 mg Hydrocortisone (Cortef) 10 mg PO BID [facility] Last Admin: 04/12/18 09:15 Dose: 10 mg Dextrose (Dextrose 5% In Water 1000 Ml) 1,000 mls @ 0 mls/hr IV .Q0M PRN; Protocol; Per Protocol PRN Reason: Hypoglycemia Protocol Insulin Human Regular (Novolin R) 0 unit SC ACHS [facility] PRN Reason: Protocol Last Admin: 04/12/18 08:26 Dose: 3 units Isosorbide Mononitrate (Imdur Er) 30 mg PO DAILY [facility] Last Admin: 04/12/18 11:01 Dose: 30 mg Levothyroxine Sodium (Synthroid) 50 mcg PO DAILY@0630 [facility] Last Admin: 04/12/18 05:58 Dose: 50 mcg Rosuvastatin Calcium (Crestor) 10 mg PO HS [facility] Last Admin: 04/11/18 22:34 Dose: 10 mg - Labs Labs: 04/11/18 07:25 04/12/18 06:37 PT 11.3 SECONDS (9.7-12.2) 04/08/18 17:57 INR 1.0 04/08/18 17:57 APTT 31 SECONDS (21-34) 04/08/18 17:57 - Additional Findings Additional findings: - Constitutional Appears: Non-toxic, No Acute Distress - Head Exam Head Exam: ATRAUMATIC, NORMAL INSPECTION, NORMOCEPHALIC - Eye Exam Eye Exam: EOMI, Normal appearance - ENT Exam ENT Exam: Mucous Membranes Moist - Respiratory Exam Respiratory Exam: clear to auscultation bilaterally, NORMAL BREATHING PATTERN - Cardiovascular Exam Cardiovascular Exam: REGULAR RHYTHM, RRR - GI/Abdominal Exam GI & Abdominal Exam: Soft, Normal Bowel Sounds. absent: Tenderness - Extremities Exam Extremities Exam: Full ROM, Normal Inspection. absent: Pedal Edema - Neurological Exam Neurological Exam: Alert, Awake, Oriented x3 - Psychiatric Exam Psychiatric exam: Normal Affect, Normal Mood - Skin Skin Exam: Intact, Normal Color, Warm Assessment and Plan - Assessment and Plan (Free Text) Assessment: CHF exacerbation Cxray: no active pulmonary disease, mild cardiomegaly and pulmonary venous congestion Pro BNP: 5740 ECHO: LVEF- 72.7, transmitral doppler flow pattern is Grade I- abnormal relaxation pattern Cortef 10mg po BID Lasix 40mg ivp q12h Duonebs q6h Worsening CKD nephro consulted, help appreciated urine protein 24 hr: 7726.5 recommended for transplant as per nephro otherwise will need dialysis CAD ASA 81mg po daily Carvedilol 12.5mg po q12h Imdur 30mg po daily Crestor 10mg po HS HTN Hydralazine 75mg po TID Hypothyroidism Synthroid 50mcg po daily DMII ISS discussed with Dr. Wagoner <Jimmy Wagoner - Last Filed: 04/12/18 23:37> Objective - Vital Signs/Intake and Output Vital Signs (last 24 hours): Temp Pulse Resp BP Pulse Ox 97.9 F 67 20 170/84 H 95 04/12/18 15:50 04/12/18 15:50 04/12/18 15:50 04/12/18 22:00 04/12/18 15:50 Intake and Output: 04/12/18 04/13/18 18:59 06:59 Intake Total 480 Balance 480 - Medications Medications: Current Medications Albuterol/Ipratropium (Duoneb 3 Mg/0.5 Mg (3 Ml) Ud) 3 ml INH RQ6 [facility] Last Admin: 04/12/18 19:28 Dose: 3 ml Aspirin (Ecotrin) 81 mg PO DAILY [facility] Last Admin: 04/12/18 09:15 Dose: 81 mg Carvedilol (Coreg) 12.5 mg PO Q12 [facility] Last Admin: 04/12/18 22:00 Dose: 12.5 mg Dextrose (Dextrose 50% Inj) 0 ml IV STAT PRN; Protocol PRN Reason: Hypoglycemia Protocol Dextrose (Glutose 15) 0 gm PO ONCE PRN; Protocol PRN Reason: Hypoglycemia Protocol Ferric Sodium Gluconate Complex (Ferrlecit) 125 mg IVPB DAILY [facility] Stop: 04/16/18 11:01 Last Admin: 04/12/18 11:29 Dose: 125 mg Furosemide (Lasix) 80 mg PO BID [facility] Last Admin: 04/12/18 18:05 Dose: 80 mg Glucagon (Glucagen Diagnostic Kit) 0 mg IM STAT PRN; Protocol PRN Reason: Hypoglycemia Protocol Heparin Sodium (Porcine) (Heparin) 5,000 units SC Q8 [facility] Last Admin: 04/12/18 22:11 Dose: 5,000 units Hydralazine HCl (Apresoline) 75 mg PO TID [facility] Last Admin: 04/12/18 18:04 Dose: 75 mg Hydrocortisone (Cortef) 10 mg PO BID [facility] Last Admin: 04/12/18 18:10 Dose: 10 mg Dextrose (Dextrose 5% In Water 1000 Ml) 1,000 mls @ 0 mls/hr IV .Q0M PRN; Protocol; Per Protocol PRN Reason: Hypoglycemia Protocol Insulin Human Regular (Novolin R) [address] [facility] PRN Reason: Protocol Last Admin: 04/12/18 21:16 Dose: Not Given Isosorbide Mononitrate (Imdur Er) 30 mg PO DAILY [facility] Last Admin: 04/12/18 11:01 Dose: 30 mg Levothyroxine Sodium (Synthroid) 50 mcg PO DAILY@0630 [facility] Last Admin: 04/12/18 05:58 Dose: 50 mcg Rosuvastatin Calcium (Crestor) 10 mg PO [facility] Last Admin: 04/12/18 22:00 Dose: 10 mg - Labs Labs: 04/11/18 07:25 04/12/18 06:37 PT 11.3 SECONDS (9.7-12.2) 04/08/18 17:57 INR 1.0 04/08/18 17:57 APTT 31 SECONDS (21-34) 04/08/18 17:57 Assessment and Plan - Assessment and Plan (Free Text) Assessment: Patient seen and evaluated personally me Plan of care d/w the medical stenographer and as documented
--- NOTE | 2018-04-13 00:26 | CP.PCM.PN ---
Subjective - Date & Time of Evaluation Date of Evaluation: 04/12/18 Time of Evaluation: 17:05 - Subjective Subjective: Patient is still having elevated blood pressure. Leg swelling still noted. Renal function is somewhat stable On examination: Vital signs stable. Chest bilateral good air entry. Regular heart sound. Abdomen nontender. Next images 1+ edema 72-year-old female with a history of hypertension diabetes hypercholesteremia admitted with a decompensated systolic heart failure. Also associated with the acute worsening renal failure, with the fluid overload status. On diuretics. No chest pain noted. Continue the current treatment Objective - Vital Signs/Intake and Output Vital Signs (last 24 hours): Temp Pulse Resp BP Pulse Ox 97.9 F 67 20 170/84 H 95 04/12/18 15:50 04/12/18 15:50 04/12/18 15:50 04/12/18 22:00 04/12/18 15:50 Intake and Output: 04/12/18 04/13/18 18:59 06:59 Intake Total 480 Balance 480 - Medications Medications: Current Medications Albuterol/Ipratropium (Duoneb 3 Mg/0.5 Mg (3 Ml) Ud) 3 ml INH RQ6 [facility] Last Admin: 04/12/18 19:28 Dose: 3 ml Aspirin (Ecotrin) 81 mg PO DAILY [facility] Last Admin: 04/12/18 09:15 Dose: 81 mg Carvedilol (Coreg) 12.5 mg PO Q12 [facility] Last Admin: 04/12/18 22:00 Dose: 12.5 mg Dextrose (Dextrose 50% Inj) 0 ml IV STAT PRN; Protocol PRN Reason: Hypoglycemia Protocol Dextrose (Glutose 15) 0 gm PO ONCE PRN; Protocol PRN Reason: Hypoglycemia Protocol Ferric Sodium Gluconate Complex (Ferrlecit) 125 mg IVPB DAILY [facility] Stop: 04/16/18 11:01 Last Admin: 04/12/18 11:29 Dose: 125 mg Furosemide (Lasix) 80 mg PO BID [facility] Last Admin: 04/12/18 18:05 Dose: 80 mg Glucagon (Glucagen Diagnostic Kit) 0 mg IM STAT PRN; Protocol PRN Reason: Hypoglycemia Protocol Heparin Sodium (Porcine) (Heparin) 5,000 units SC Q8 [facility] Last Admin: 04/12/18 22:11 Dose: 5,000 units Hydralazine HCl (Apresoline) 75 mg PO TID [facility] Last Admin: 04/12/18 18:04 Dose: 75 mg Dextrose (Dextrose 5% In Water 1000 Ml) 1,000 mls @ 0 mls/hr IV .Q0M PRN; Protocol; Per Protocol PRN Reason: Hypoglycemia Protocol Insulin Human Regular (Novolin R) 0 unit SC ACHS [facility] PRN Reason: Protocol Last Admin: 04/12/18 21:16 Dose: Not Given Levothyroxine Sodium (Synthroid) 50 mcg PO DAILY@0630 [facility] Last Admin: 04/12/18 05:58 Dose: 50 mcg Rosuvastatin Calcium (Crestor) 10 mg PO HS [facility] Last Admin: 04/12/18 22:00 Dose: 10 mg - Labs Labs: 04/11/18 07:25 04/12/18 06:37 PT 11.3 SECONDS (9.7-12.2) 04/08/18 17:57 INR 1.0 04/08/18 17:57 APTT 31 SECONDS (21-34) 04/08/18 17:57
[2018-04-13] MEDS: Albuterol-Ipratrop 3 mg / 0.5 (3 ml) UD INH SCH ×3 (01:24→19:08)
[2018-04-13] MEDS: Levothyroxine 50 MCG TAB PO SCH (05:59)
[2018-04-13] MEDS: (Novolin R) Insulin Human Regular 100 units/ml vial SC SCH ×4 (07:53→21:24)
[2018-04-13 08:56] LABS: ALB/GLOB RATIO 1.5 (1.0-2.1); ALBUMIN 3.6 g/dL (3.5-5.0); CALCIUM 7.4 mg/dl (8.6-10.4)
[2018-04-13] MEDS: Ferric Sodium Gluconat Complex 62.5 mg/5 ml Vial IVPB SCH (09:50)
--- NOTE | 2018-04-13 11:51 | CP.PCM.PN ---
Subjective - Date & Time of Evaluation Date of Evaluation: 04/13/18 Time of Evaluation: 11:50 - Subjective Subjective: leg swelling resolved denies any sob/cp dizziness/n/v/d/f/c Objective - Vital Signs/Intake and Output Vital Signs (last 24 hours): Temp Pulse Resp BP Pulse Ox 97.9 F 58 L 20 171/85 H 96 04/13/18 07:27 04/13/18 07:27 04/13/18 07:27 04/13/18 09:48 04/13/18 07:27 Intake and Output: 04/13/18 04/13/18 06:59 18:59 Intake Total 680 Output Total 1550 Balance -870 - Medications Medications: Current Medications Albuterol/Ipratropium (Duoneb 3 Mg/0.5 Mg (3 Ml) Ud) 3 ml INH RQ6 [facility] Last Admin: 04/13/18 07:26 Dose: 3 ml Aspirin (Ecotrin) 81 mg PO DAILY [facility] Last Admin: 04/13/18 09:47 Dose: 81 mg Carvedilol (Coreg) 12.5 mg PO Q12 [facility] Last Admin: 04/13/18 09:47 Dose: 12.5 mg Dextrose (Dextrose 50% Inj) 0 ml IV STAT PRN; Protocol PRN Reason: Hypoglycemia Protocol Dextrose (Glutose 15) 0 gm PO ONCE PRN; Protocol PRN Reason: Hypoglycemia Protocol Ferric Sodium Gluconate Complex (Ferrlecit) 125 mg IVPB DAILY [facility] Stop: 04/16/18 11:01 Last Admin: 04/13/18 09:50 Dose: 125 mg Furosemide (Lasix) 80 mg PO BID [facility] Last Admin: 04/13/18 09:48 Dose: 80 mg Glucagon (Glucagen Diagnostic Kit) 0 mg IM STAT PRN; Protocol PRN Reason: Hypoglycemia Protocol Heparin Sodium (Porcine) (Heparin) 5,000 units SC Q8 [facility] Last Admin: 04/13/18 05:59 Dose: 5,000 units Hydralazine HCl (Apresoline) 75 mg PO TID [facility] Last Admin: 04/13/18 09:47 Dose: 75 mg Hydrocortisone (Cortef) 5 mg PO BID [facility] Last Admin: 04/13/18 09:49 Dose: 5 mg Dextrose (Dextrose 5% In Water 1000 Ml) 1,000 mls @ 0 mls/hr IV .Q0M PRN; Protocol; Per Protocol PRN Reason: Hypoglycemia Protocol Insulin Human Regular (Novolin R) 0 unit SC ACHS [facility] PRN Reason: Protocol Last Admin: 04/13/18 07:53 Dose: 2 units Isosorbide Mononitrate (Imdur Er) 60 mg PO DAILY [facility] Levothyroxine Sodium (Synthroid) 50 mcg PO DAILY@0630 [facility] Last Admin: 04/13/18 05:59 Dose: 50 mcg Rosuvastatin Calcium (Crestor) 10 mg PO HS [facility] Last Admin: 04/12/18 22:00 Dose: 10 mg - Labs Labs: 04/11/18 07:25 04/13/18 08:34 PT 11.3 SECONDS (9.7-12.2) 04/08/18 17:57 INR 1.0 04/08/18 17:57 APTT 31 SECONDS (21-34) 04/08/18 17:57 - Constitutional Appears: Non-toxic, No Acute Distress, Chronically Ill - Head Exam Head Exam: NORMAL INSPECTION, NORMOCEPHALIC - Eye Exam Eye Exam: Normal appearance - ENT Exam ENT Exam: Mucous Membranes Moist, Normal Exam - Neck Exam Neck Exam: Full ROM, Normal Inspection - Respiratory Exam Respiratory Exam: Decreased Breath Sounds, NORMAL BREATHING PATTERN - Cardiovascular Exam Cardiovascular Exam: REGULAR RHYTHM, RRR - GI/Abdominal Exam GI & Abdominal Exam: Distended, Soft, Normal Bowel Sounds - Extremities Exam Extremities Exam: Full ROM, Normal Inspection - Back Exam Back Exam: NORMAL INSPECTION - Neurological Exam Neurological Exam: Alert, Awake, Oriented x3 - Psychiatric Exam Psychiatric exam: Normal Affect, Normal Mood - Skin Skin Exam: Dry, Intact Assessment and Plan (1) CHF (congestive heart failure) Status: Acute (2) Chronic kidney disease, stage IV (severe) Status: Acute (3) Type 2 diabetes mellitus with diabetic nephropathy Status: Acute (4) CAD (coronary artery disease) Status: Acute - Assessment and Plan (Free Text) Assessment: ckd 4 / nephrotic syndrome/ dm nephropathy. volume overload anemia htn recommend av fistula placement outpt transplant referral. 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
--- NOTE | 2018-04-14 00:37 | CP.PCM.PN ---
Subjective - Date & Time of Evaluation Date of Evaluation: 04/13/18 Time of Evaluation: 12:05 - Subjective Subjective: Patient seen and evaluated Denies chest pain and dyspnea No cardiac events noted Objective - Vital Signs/Intake and Output Vital Signs (last 24 hours): Temp Pulse Resp BP Pulse Ox 98.3 F 64 20 191/76 H 95 04/13/18 15:00 04/13/18 15:00 04/13/18 15:00 04/13/18 21:14 04/13/18 15:00 Intake and Output: 04/13/18 04/14/18 18:59 06:59 Intake Total 300 300 Balance 300 300 - Medications Medications: Current Medications Albuterol/Ipratropium (Duoneb 3 Mg/0.5 Mg (3 Ml) Ud) 3 ml INH RQ6 [facility] Last Admin: 04/13/18 19:08 Dose: 3 ml Aspirin (Ecotrin) 81 mg PO DAILY [facility] Last Admin: 04/13/18 09:47 Dose: 81 mg Carvedilol (Coreg) 12.5 mg PO Q12 [facility] Last Admin: 04/13/18 21:14 Dose: 12.5 mg Dextrose (Dextrose 50% Inj) 0 ml IV STAT PRN; Protocol PRN Reason: Hypoglycemia Protocol Dextrose (Glutose 15) 0 gm PO ONCE PRN; Protocol PRN Reason: Hypoglycemia Protocol Ferric Sodium Gluconate Complex (Ferrlecit) 125 mg IVPB DAILY [facility] Stop: 04/16/18 11:01 Last Admin: 04/13/18 09:50 Dose: 125 mg Furosemide (Lasix) 80 mg PO BID [facility] Last Admin: 04/13/18 17:17 Dose: 80 mg Glucagon (Glucagen Diagnostic Kit) 0 mg IM STAT PRN; Protocol PRN Reason: Hypoglycemia Protocol Heparin Sodium (Porcine) (Heparin) 5,000 units SC Q8 [facility] Last Admin: 04/13/18 21:18 Dose: 5,000 units Hydralazine HCl (Apresoline) 75 mg PO TID [facility] Last Admin: 04/13/18 17:16 Dose: 75 mg Hydrocortisone (Cortef) 5 mg PO BID [facility] Last Admin: 04/13/18 18:56 Dose: 5 mg Dextrose (Dextrose 5% In Water 1000 Ml) 1,000 mls @ 0 mls/hr IV .Q0M PRN; Protocol; Per Protocol PRN Reason: Hypoglycemia Protocol Insulin Human Regular (Novolin R) 0 unit SC [facility] PRN Reason: Protocol Last Admin: 04/13/18 21:24 Dose: 2 units Isosorbide Mononitrate (Imdur Er) 60 mg PO DAILY [facility] Last Admin: 04/13/18 12:10 Dose: 60 mg Levothyroxine Sodium (Synthroid) 50 mcg PO DAILY@0630 [facility] Last Admin: 04/13/18 05:59 Dose: 50 mcg Rosuvastatin Calcium (Crestor) 10 mg PO HS [facility] Last Admin: 04/13/18 21:17 Dose: 10 mg - Labs Labs: 04/11/18 07:25 04/13/18 08:34 PT 11.3 SECONDS (9.7-12.2) 04/08/18 17:57 INR 1.0 04/08/18 17:57 APTT 31 SECONDS (21-34) 04/08/18 17:57
[2018-04-14] MEDS: Albuterol-Ipratrop 3 mg / 0.5 (3 ml) UD INH SCH ×3 (01:53→13:10)
[2018-04-14] MEDS: Levothyroxine 50 MCG TAB PO SCH (05:44)
[2018-04-14] MEDS: (Novolin R) Insulin Human Regular 100 units/ml vial SC SCH ×2 (07:55→11:51)
--- NOTE | 2018-04-14 08:35 | CP.PCM.PN ---
Subjective - Date & Time of Evaluation Date of Evaluation: 04/14/18 Time of Evaluation: 08:30 - Subjective Subjective: bp stable afebrile output over 1.5 liters awake alert comfortable in bed states feels better no new chems ROS no chills fever No chest pain,sob cough No abd pain,n,v,d No dysuria No headache Objective - Vital Signs/Intake and Output Vital Signs (last 24 hours): Temp Pulse Resp BP Pulse Ox 98.5 F 62 20 154/69 H 98 04/14/18 00:00 04/14/18 00:00 04/14/18 00:00 04/14/18 00:00 04/14/18 02:25 Intake and Output: 04/14/18 04/14/18 06:59 18:59 Intake Total 300 Balance 300 - Medications Medications: Current Medications Albuterol/Ipratropium (Duoneb 3 Mg/0.5 Mg (3 Ml) Ud) 3 ml INH RQ6 [facility] Last Admin: 04/14/18 08:00 Dose: 3 ml Aspirin (Ecotrin) 81 mg PO DAILY [facility] Last Admin: 04/13/18 09:47 Dose: 81 mg Carvedilol (Coreg) 12.5 mg PO Q12 [facility] Last Admin: 04/13/18 21:14 Dose: 12.5 mg Dextrose (Dextrose 50% Inj) 0 ml IV STAT PRN; Protocol PRN Reason: Hypoglycemia Protocol Dextrose (Glutose 15) 0 gm PO ONCE PRN; Protocol PRN Reason: Hypoglycemia Protocol Ferric Sodium Gluconate Complex (Ferrlecit) 125 mg IVPB DAILY [facility] Stop: 04/16/18 11:01 Last Admin: 04/13/18 09:50 Dose: 125 mg Furosemide (Lasix) 80 mg PO BID [facility] Last Admin: 04/13/18 17:17 Dose: 80 mg Glucagon (Glucagen Diagnostic Kit) 0 mg IM STAT PRN; Protocol PRN Reason: Hypoglycemia Protocol Heparin Sodium (Porcine) (Heparin) 5,000 units SC Q8 [facility] Last Admin: 04/14/18 05:44 Dose: 5,000 units Hydralazine HCl (Apresoline) 75 mg PO TID [facility] Last Admin: 04/13/18 17:16 Dose: 75 mg Hydrocortisone (Cortef) 5 mg PO BID [facility] Last Admin: 04/13/18 18:56 Dose: 5 mg Dextrose (Dextrose 5% In Water 1000 Ml) 1,000 mls @ 0 mls/hr IV .Q0M PRN; Protocol; Per Protocol PRN Reason: Hypoglycemia Protocol Insulin Human Regular (Novolin R) 0 unit SC ACHS [facility] PRN Reason: Protocol Last Admin: 04/14/18 07:55 Dose: 2 units Isosorbide Mononitrate (Imdur Er) 60 mg PO DAILY [facility] Last Admin: 04/13/18 12:10 Dose: 60 mg Levothyroxine Sodium (Synthroid) 50 mcg PO DAILY@0630 [facility] Last Admin: 04/14/18 05:44 Dose: 50 mcg Rosuvastatin Calcium (Crestor) 10 mg PO HS [facility] Last Admin: 04/13/18 21:17 Dose: 10 mg - Labs Labs: 04/11/18 07:25 04/13/18 08:34 PT 11.3 SECONDS (9.7-12.2) 04/08/18 17:57 INR 1.0 04/08/18 17:57 APTT 31 SECONDS (21-34) 04/08/18 17:57 - Constitutional Appears: No Acute Distress - ENT Exam ENT Exam: Mucous Membranes Moist - Neck Exam Additional comments: distant sounds prolonged ins and exp diminished sounds at bases - Cardiovascular Exam Cardiovascular Exam: REGULAR RHYTHM - GI/Abdominal Exam GI & Abdominal Exam: Soft. absent: Distended, Tenderness - Extremities Exam Extremities Exam: absent: Calf Tenderness - Back Exam Back Exam: absent: CVA tenderness (L), CVA tenderness (R) - Skin Skin Exam: Dry Assessment and Plan (1) CHF (congestive heart failure) Status: Acute (2) Chronic kidney disease, stage IV (severe) Status: Acute (3) CAD (coronary artery disease) Status: Acute (4) HTN (hypertension) Status: Acute - Assessment and Plan (Free Text) Assessment: follow cardiology recommendations emphasize fluid restriction diuretics as needed
[2018-04-14 08:36] LABS: ALB/GLOB RATIO 1.4 (1.0-2.1); ALBUMIN 3.7 g/dL (3.5-5.0); CALCIUM 8.4 mg/dl (8.6-10.4)
[2018-04-14] MEDS: Ferric Sodium Gluconat Complex 62.5 mg/5 ml Vial IVPB SCH (09:04)
[2018-04-14 09:05] VITALS: BP 154/71
[2018-04-14 09:09] VITALS: PULSE 63; TEMP 98.6; O2SAT 96
--- NOTE | 2018-04-14 16:58 | IP.NPCORE ---
Heart Failure Core Measure - Heart Failure Ejection Fraction: 40 % or Greater FRIDA Inhibitor Prescribed: No Contraindication/Reason for not providing: CRF Beta-Mariel Prescribed: Carvedilol Angiotensin II Receptor Mariel Prescribed: No Contraindication/Reason for not providing: CRF AnticoagulationTherapy for Atrial Fibrillation/Atrialflutter: No Contraindication/Reason for not providing: NO HX OF FIB Aldosterone Antagonist Prescribed: No Contraindication/Reason for not providing: crf Hydralazine Nitrate Prescribed: Yes Cardiac Resynchronization Therapy Prescribed: No Contraindication/Reason for not providing: EF>45 - Follow up Will be discharged to: Home Follow Up Date (must be within 7 days from discharge): 04/19/18 Follow Up Time: 09:00
--- NOTE | 2018-04-15 07:57 | CP.PCM.PN ---
Subjective - Date & Time of Evaluation Date of Evaluation: 04/14/18 Time of Evaluation: 10:20 - Subjective Subjective: Patient seen and evaluated Denies chest pain and dyspnea Physical Examination - Constitutional Appears: No Acute Distress - ENT Exam ENT Exam: Mucous Membranes Moist - Neck Exam Additional comments: distant sounds prolonged ins and exp diminished sounds at bases - Cardiovascular Exam Cardiovascular Exam: REGULAR RHYTHM - GI/Abdominal Exam GI & Abdominal Exam: Soft. absent: Distended, Tenderness - Extremities Exam Extremities Exam: absent: Calf Tenderness - Back Exam Back Exam: absent: CVA tenderness (L), CVA tenderness (R) - Skin Skin Exam: Dry Objective - Vital Signs/Intake and Output Vital Signs (last 24 hours): Temp Pulse Resp BP Pulse Ox 98.6 F 63 20 154/71 H 96 04/14/18 08:00 04/14/18 08:00 04/14/18 08:00 04/14/18 09:03 04/14/18 08:00 - Labs Labs: 04/11/18 07:25 04/14/18 07:56 PT 11.3 SECONDS (9.7-12.2) 04/08/18 17:57 INR 1.0 04/08/18 17:57 APTT 31 SECONDS (21-34) 04/08/18 17:57 Assessment and Plan - Assessment and Plan (Free Text) Assessment: (1) CHF (congestive heart failure) Status: Acute (2) Chronic kidney disease, stage IV (severe) Status: Acute (3) CAD (coronary artery disease) Status: Acute (4) HTN (hypertension) Status: Acute - Assessment and Plan (Free Text) Assessment: f/u with my office in 1 month emphasize fluid restriction diuretics as needed
--- NOTE | 2018-04-15 17:05 | CP.PCM.PN ---
Subjective - Date & Time of Evaluation Date of Evaluation: 04/13/18 Time of Evaluation: 17:05 - Subjective Subjective: Patient is still having elevated blood pressure. Leg swelling still noted. Renal function is somewhat stable On examination: Vital signs stable. Chest bilateral good air entry. Regular heart sound. Abdomen nontender. Next images 1+ edema 72-year-old female with a history of hypertension diabetes hypercholesteremia admitted with a decompensated systolic heart failure. Also associated with the acute worsening renal failure, with the fluid overload status. On diuretics. No chest pain noted. Continue the current treatment Objective - Vital Signs/Intake and Output Vital Signs (last 24 hours): Temp Pulse Resp BP Pulse Ox 98.6 F 63 20 154/71 H 96 04/14/18 08:00 04/14/18 08:00 04/14/18 08:00 04/14/18 09:03 04/14/18 08:00 - Labs Labs: 04/11/18 07:25 04/14/18 07:56 PT 11.3 SECONDS (9.7-12.2) 04/08/18 17:57 INR 1.0 04/08/18 17:57 APTT 31 SECONDS (21-34) 04/08/18 17:57
--- NOTE | 2018-04-15 17:05 | CP.PCM.DIS ---
Provider - Provider Date of Admission: 04/08/18 18:47 Attending physician: Renato Orlando MD Time Spent in preparation of Discharge (in minutes): 45 Hospital Course - Lab Results Lab Results: Most Recent Lab Values WBC 6.4 K/uL (4.8-10.8) 04/11/18 07:25 RBC 3.44 Mil/uL (3.80-5.20) L 04/11/18 07:25 Hgb 9.6 g/dL (11.0-16.0) L 04/11/18 07:25 Hct 28.6 % (34.0-47.0) L 04/11/18 07:25 MCV 83.0 fL (81.0-99.0) 04/11/18 07:25 MCH 27.8 pg (27.0-31.0) 04/11/18 07:25 MCHC 33.5 g/dL (33.0-37.0) 04/11/18 07:25 RDW 15.3 % (11.5-14.5) H 04/11/18 07:25 Plt Count 177 K/uL (130-400) 04/11/18 07:25 MPV 9.8 fL (7.2-11.7) 04/11/18 07:25 Neut % (Auto) 59.8 % (50.0-75.0) 04/11/18 07:25 Lymph % (Auto) 25.5 % (20.0-40.0) 04/11/18 07:25 [place] % (Auto) 6.7 % (0.0-10.0) 04/11/18 07:25 Eos % (Auto) 7.1 % (0.0-4.0) H 04/11/18 07:25 Baso % (Auto) 0.9 % (0.0-2.0) 04/11/18 07:25 Neut # (Auto) 3.9 K/uL (1.8-7.0) 04/11/18 07:25 Lymph # (Auto) 1.6 K/uL (1.0-4.3) 04/11/18 07:25 [place] # (Auto) 0.4 K/uL (0.0-0.8) 04/11/18 07:25 Eos # (Auto) 0.5 K/uL (0.0-0.7) 04/11/18 07:25 Baso # (Auto) 0.1 K/uL (0.0-0.2) 04/11/18 07:25 PT 11.3 SECONDS (9.7-12.2) 04/08/18 17:57 INR 1.0 04/08/18 17:57 APTT 31 SECONDS (21-34) 04/08/18 17:57 Sodium 132 mmol/L (132-148) 04/14/18 07:56 Potassium 4.0 mmol/L (3.6-5.2) 04/14/18 07:56 Chloride 93 mmol/L (98-107) L 04/14/18 07:56 Carbon Dioxide 27 mmol/L (22-30) 04/14/18 07:56 Anion Gap 16 (10-20) 04/14/18 07:56 BUN 59 mg/dL (7-17) H 04/14/18 07:56 Creatinine 3.7 mg/dL (0.7-1.2) H 04/14/18 07:56 Est GFR ( Amer) 15 04/14/18 07:56 Est GFR (Non-Af Amer) 12 04/14/18 07:56 POC Glucose (mg/dL) 331 mg/dL (65-110) H 04/14/18 16:13 Random Glucose 222 mg/dL (65-105) H 04/14/18 07:56 Calcium 8.4 mg/dl (8.6-10.4) L 04/14/18 07:56 Phosphorus 5.8 mg/dL (2.5-4.5) H 04/09/18 14:19 Magnesium 1.6 mg/dL (1.6-2.3) 04/11/18 07:25 % Saturation 15 (20-55) L 04/10/18 06:38 Ferritin 37.5 ng/mL 04/10/18 06:38 Total Bilirubin 0.7 mg/dL (0.2-1.3) 04/14/18 07:56 AST 22 U/L (14-36) 04/14/18 07:56 ALT 26 U/L (9-52) 04/14/18 07:56 Alkaline Phosphatase 97 U/L (38-126) 04/14/18 07:56 Total Creatine Kinase 79 U/L (30-135) 04/08/18 18:33 CK-MB (Mass) 2.25 ng/mL (0.0-3.38) 04/08/18 18:33 Troponin I 0.0230 ng/mL (0.00-0.120) 04/08/18 18:33 NT-Pro-B Natriuret Pep 5740 pg/mL (0-900) H 04/08/18 18:33 Total Protein 6.4 g/dL (6.3-8.3) 04/14/18 07:56 Albumin 3.7 g/dL (3.5-5.0) 04/14/18 07:56 Globulin 2.6 gm/dL (2.2-3.9) 04/14/18 07:56 Albumin/Globulin Ratio 1.4 (1.0-2.1) 04/14/18 07:56 PTH Intact Whole Molec 419 pg/mL (14-64) H 04/09/18 17:09 Urine Color Straw (YELLOW) 04/09/18 22:39 Urine Clarity Clear (Clear) 04/09/18 22:39 Urine pH 5.0 (5.0-8.0) 04/09/18 22:39 Ur Specific [place] 1.006 (1.003-1.030) 04/09/18 22:39 Urine Protein 2+ mg/dL (NEGATIVE) H 04/09/18 22:39 Urine Glucose (UA) 3+ mg/dL (Normal) H 04/09/18 22:39 Urine Ketones Negative mg/dL (NEGATIVE) 04/09/18 22:39 Urine Blood Negative (NEGATIVE) 04/09/18 22:39 Urine Nitrate Negative (NEGATIVE) 04/09/18 22:39 Urine Bilirubin Negative (NEGATIVE) 04/09/18 22:39 Urine Urobilinogen Normal mg/dL (0.2-1.0) 04/09/18 22:39 Ur Leukocyte Esterase Neg Gabe/uL (Negative) 04/09/18 22:39 Urine WBC (Auto) 1 /hpf (0-5) 04/09/18 22:39 Urine RBC (Auto) < 1 /hpf (0-3) 04/09/18 22:39 Ur Squamous Epith Cells < 1 /hpf (0-5) 04/09/18 22:39 Urine Bacteria Occ (<OCC) H 04/09/18 22:39 Urine Collection Time 24 HRS 04/09/18 23:25 Urine Total Volume 2550 mL 04/09/18 23:25 Ur Protein 24 Hr Calc 7726.5 mg/24hr (42-225) H 04/09/18 23:25 - Hospital Course Hospital Course: Chief complaint: Shortness of breath History of present illness: 72-year-old female with a history of heart failure, hypertension, CAD, status post stent, renal insufficiency, diabetes. Patient started having increasing shortness of breath since yesterday. Also started having leg swelling since to 3 days. Recently she is drinking significant amount of fluid. Heavy breathing trouble noted. Shortness of breath on exertion also noted. Now even at rest noted. Unable to lie flat. Patient is using at least 3-4 pillows to sleep. Coughing minimally noted. No chest pain noted. She does not have any fever chills. No urinary symptoms. She is making urine, even at night times she goes to the bathroom many times. She is on medications, as per the patient she is taking the medication without any problems. Blood sugar is noted to be on the high side. Past medical history CAD CHF diabetes hypertension high cholesterol renal insufficiency Surgical history coronary stenting,Removal of pituitary macroadenoma Allergies no known drug allergy Personal history nonspecific Non-smoker nonalcoholic lives by herself Review of system noted from the chart, 10 point review of system noted Family history noncontributory Review of system noted.Weakness noted. Shortness of breath present. Leg swelling present. 10 point review of system noted On examination: Patient is not in any distress. Vital signs temperature 98F Blood pressure noted to be highly elevated. Chest good air entry bilaterally, diffuse bilateral wheezing and rales noted sometimes. Regular heart sounds nontender abdomen extremities edema noted bilaterally. Labs: Reviewed BUN and creatinine noted to be elevated. Chest x-ray showing congestive changes in both lungs. Elevated proBNP noted. EKG nonspecific Assessment and recommendation: Patient is a 72-year-old female with multiple medical history hypertension diabetes hypercholesterolemia CAD status post distant admitted with worsening renal failure, renal insufficiency, and associated with the fluid overload state. Admitted with possible acute decompensated heart failure. Fluid overload. Patient also has a paroxysmal nocturnal dyspnea. Likely secondary to congestive heart failure. We will get echocardiogram. Cardiology evaluation. Cardiac enzymes monitoring. Diuretics. Oxygen. Patient will be closely monitored with telemetry point of view. We will continue the cardiology evaluation, cardiology follow-up. Course in the Hospital: Patient admitted to the hospital with the diagnosis of acute on chronic decompensated diastolic heart failure. Also fluid overload secondary to worsening renal failure. Patient also had a leg swelling. Nephrology consultation, cardiology consultation was called in. Patient started on intravenous Lasix. Blood pressure was controlled with hydralazine. Patient clinical condition slowly improving. Renal function was also slight improvement noted. As per the sewer cleaner, patient will need outpatient management including stress test a. Patient also seen by cardiovascular disease specialist, outpatient renal transplant clinic advice was given. Patient will be continuing the diuretics. Patient was feeling well. She will be discharged home today. She will follow up as an outpatient Final diagnoses: Acute on chronic diastolic heart failure. Hypertension. Renal insufficiency which is acute on chronic, and associated acute fluid overload. Pedal edema Diabetes hypertension. Neuropathy. CAD and stent. Patient medications reviewed Will follow the patient Discharge Exam - Head Exam Head Exam: NORMAL INSPECTION, NORMOCEPHALIC Discharge Plan - Follow Up Plan Condition: STABLE Disposition: HOME/ ROUTINE Instructions: Heart Failure, Adult (DC), Diabetes Type 2 (DC), Chronic Kidney Disease (DC) Additional Instructions: follow up with Dr. Orlando in one week Referrals: Renato Orlando MD [Staff Provider] -
== END 2018-04-14 17:32 | disposition home or self-care (01) | DRG 291 ==
LOC: C.ER 16:09 → C.9E 18:47 → C.6T 04-09 01:38 → C.3T 04-13 12:26
PROVIDERS: ADMIT Internal Medicine; ATTEND Internal Medicine
DX: I13.0 Hypertensive heart and chronic kidney disease with heart failure and stage 1 through stage 4 chronic kidney disease, or unspecified chronic kidney disease (principal); I50.33 Acute on chronic diastolic (congestive) heart failure; N04.9 Nephrotic syndrome with unspecified morphologic changes; N18.4 Chronic kidney disease, stage 4 (severe); J44.9 Chronic obstructive pulmonary disease, unspecified; I25.10 Atherosclerotic heart disease of native coronary artery without angina pectoris; E11.21 Type 2 diabetes mellitus with diabetic nephropathy; E11.22 Type 2 diabetes mellitus with diabetic chronic kidney disease; E03.9 Hypothyroidism, unspecified; E78.00 Pure hypercholesterolemia, unspecified; E11.40 Type 2 diabetes mellitus with diabetic neuropathy, unspecified; D64.9 Anemia, unspecified; Z79.899 Other long term (current) drug therapy; Z95.5 Presence of coronary angioplasty implant and graft

== ENCOUNTER 2018-09-29 00:13 | Inpatient (IN) | payer MEDICARE, MEDICAID ==
[2018-09-29 00:13] VITALS: BMI 34.0
--- NOTE | 2018-09-29 01:10 | C.PDOC ---
History Of Present Illness 72 year old female with a PMHx of HTN, high cholesterol, diabetes, and CAD s/p stent presents to the ER with epigastric pain for the past 4 days. Patient states the pain began while ascending the stairs, she felt palpitations and rep orts SOB with the epigastric pain. Denies fever, vomiting, or leg swelling. PMD: Dr. Orlando Steam Shovelman: Dr. Wagoner Time Seen by Provider: 09/29/18 00:39 Chief Complaint (Nursing): Abdominal Pain History Per: Patient History/Exam Limitations: no limitations Onset/Duration Of Symptoms: Days (4) Current Symptoms Are (Timing): Still Present Location Of Pain/Discomfort: Epigastric Radiation Of Pain To:: None Quality Of Discomfort: Unable To Describe Associated Symptoms: Other (Palpitations, SOB) Exacerbating Factors: None Alleviating Factors: None Recent travel outside of the [place]: No Past Medical History Reviewed: Historical Data, Nursing Documentation, Vital Signs Vital Signs: Last Vital Signs Temp 98.2 F 09/29/18 00:26 Pulse 57 L 09/29/18 00:26 Resp 20 09/29/18 00:26 BP 179/81 H 09/29/18 00:26 Pulse Ox 98 09/29/18 00:26 - Medical History PMH: CAD, CHF, Diabetes, HTN, Hypercholesterolemia, Chronic Kidney Disease Surgical History: Coronary Stent (10/2015) - [facility] Procedures INDIVIDUAL PSYCHOTHERAPY, SUPPORTIVE (11/23/16) MEASURE OF CARDIAC SAMPL & PRESSURE, L HEART, PERC APPROACH (10/14/15) OTHER COUNSELING (11/23/16) PLAIN RADIOGRAPHY OF MULT COR ART USING L OSM CONTRAST (10/14/15) Family History: States: Diabetes - Social History Hx Tobacco Use: No Hx Alcohol Use: No Hx Substance Use: No - Immunization History Hx Tetanus Toxoid Vaccination: No Hx Influenza Vaccination: Yes Hx Pneumococcal Vaccination: Yes Review Of Systems Except As Marked, All Systems Reviewed And Found Negative. Constitutional: Negative for: Fever Cardiovascular: Positive for: Palpitations Respiratory: Positive for: Shortness of Breath Gastrointestinal: Positive for: Abdominal Pain (Epigastric). Negative for: Vomiting Musculoskeletal: Negative for: Other (Leg swelling) Physical Exam - Physical Exam Additional Physical Exam Comments: Constitutional: Obese. Head: Facial swelling. Eyes: PERRL. ENT: Moist mucous membranes. Neck: Supple. Cardiovascular: Regular rate. Radial pulse 2+ bilaterally. Chest: No tenderness. Respiratory: Bibasilar crackles. GI: Epigastric with guarding. Back: No CVA tenderness. Musculoskeletal: No tenderness or swelling of extremities. Skin: No rash. Neurologic: Alert, no focal deficit. ED Course And Treatment - Laboratory Results Result Diagrams: 09/29/18 01:05 09/29/18 01:05 O2 Sat by Pulse Oximetry: 98 (room air) Pulse Ox Interpretation: Normal Medical Decision Making Medical Decision Making: EKG, blood work, and CXR ordered. EKG: Sinus rhythm 60bpm, no ST elevation, no T wave inversions CXR poor inspiratory effort. Creatinine acutely elevated, patient likely needs to be started on HD. Dr. Orlando accepts patient to his service. Disposition - Disposition Disposition: HOSPITALIZED Disposition Time: 02:30 Condition: GUARDED - Clinical Impression Clinical Impression: Chest pain, Acute renal insufficiency - Scribe Statement The provider has reviewed the documentation as recorded by the Scribcriselda Murillo All medical record entries made by the Jodyibcriselda were at my direction and personally dictated by me. I have reviewed the chart and agree that the record accurately reflects my personal performance of the history, physical exam, medical decision making, and the department course for this patient. I have also personally directed, reviewed, and agree with the discharge instructions and disposition.
[2018-09-29 01:16] LABS: BASO % 0.3 % (0.0-2.0); EOS # 0.5 K/uL (0.0-0.7); EOS % 8.6 % (0.0-4.0); HEMOGLOBIN 10.8 g/dL (11.0-16.0); LYMPH # 1.2 K/uL (1.0-4.3); LYMPH % 19.4 % (20.0-40.0); MEAN CELL VOLUME 85.4 fL (81.0-99.0); MEAN CORPUSCULAR HEMOGLOBIN 26.9 pg (27.0-31.0); MEAN CORPUSCULAR HGB CONC 31.5 g/dL (33.0-37.0); MEAN PLATELET VOLUME 9.9 fL (7.2-11.7); MONO # 0.4 K/uL (0.0-0.8); MONO % 6.2 % (0.0-10.0); NEUT % 65.5 % (50.0-75.0); NRBC % 0.1 % (0.0-2.0); RBC 4.03 Mil/uL (3.80-5.20); RED CELL DISTRIBUTION WIDTH 15.5 % (11.5-14.5); WHITE BLOOD COUNT 6.1 K/uL (4.8-10.8)
[2018-09-29 01:22] LABS: ALB/GLOB RATIO 1.6 (1.0-2.1); ALBUMIN 4.3 g/dL (3.5-5.0); CALCIUM 7.7 mg/dl (8.6-10.4)
[2018-09-29 01:32] LABS: CK-MB 3.21 ng/mL (0.0-3.38); TROPONIN I 0.017 ng/mL (0.00-0.120)
--- NOTE | 2018-09-29 07:15 | CP.PCM.HP ---
History of Present Illness - History of Present Illness History of Present Illness: Chief complaints: Epigastric pain, associated with chest tightness HPI: Patient was brought in by family with increasing epigastric pain, associated chest tightness. She was having significant pain over the epigastric area, and almost to for 4 days the pain was slowly getting worse, climbing stairs, associated with increasing pain, associated with palpitation and shortness of breath. She did not have any vomiting diarrhea, no leg swelling noted currently. Patient in the past has significant to severe renal insufficiency, and the patient was advised for hemodialysis by the funeral service apprentice but the patient is currently reluctant. This is a 72-year-old female with a history of heart failure, hypertension, CAD, status post stent, renal insufficiency, diabetes. 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 Shortness of breath present. Leg swelling present. 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 Elevated BUN/creatinine level noted Chest x-ray nonspecific Elevated potassium, worsening renal parameters, also elevated liver enzymes noted Elevated proBNP level noted Assessment and recommendation: Patient is a 72-year-old female with multiple medical history hypertension diabetes hypercholesterolemia CAD status post stent. Status post pituitary tumor removal, currently on supplementation of the corticotrophin. No patient admitted with possible acute worsening renal insufficiency associated with some uremic symptoms likely. In my opinion patient may need hemodialysis will discuss with the patient. Diuretics to be continued Renal evaluation DVT GI prophylaxis. And will follow-up the patient. Present on Admission - Present on Admission Any Indicators Present on Admission: No History of DVT/PE: No History of Uncontrolled Diabetes: No Urinary Catheter: No Decubitus Ulcer Present: No Past Patient History - Infectious Disease Hx of Infectious Diseases: None - Past Medical History & Family History Past Medical History?: Yes - Past Social History Smoking Status: Never Smoked - CARDIAC Hx Congestive Heart Failure: Yes Hx Hypercholesterolemia: Yes Hx Hypertension: Yes - PULMONARY Hx Respiratory Disorders: No - NEUROLOGICAL Hx Neurological Disorder: No Hx Dizziness: Yes - HEENT Hx HEENT Problems: Yes Other/Comment: left eye drooping-blurry due to DM - RENAL Hx Chronic Kidney Disease: Yes - ENDOCRINE/METABOLIC Hx Diabetes Mellitus Type 2: Yes - HEMATOLOGICAL/ONCOLOGICAL Hx Blood Disorders: No - INTEGUMENTARY Hx Dermatological Problems: No - MUSCULOSKELETAL/RHEUMATOLOGICAL Hx Falls: Yes - GASTROINTESTINAL Hx Gastrointestinal Disorders: No - GENITOURINARY/GYNECOLOGICAL Hx Genitourinary Disorders: No - PSYCHIATRIC Hx Substance Use: No - SURGICAL HISTORY Hx Coronary Stent: Yes (10/2015) - ANESTHESIA Hx Anesthesia: Yes Hx Anesthesia Reactions: No Hx Malignant Hyperthermia: No Meds Allergies/Adverse Reactions: Allergies Allergy/AdvReac Type Severity Reaction Status Date / Time No Known Allergies Allergy Verified 07/21/18 12:21 Results - Vital Signs Recent Vital Signs: Last Vital Signs Temp 97.8 F 09/29/18 04:06 Pulse 56 L 09/29/18 04:06 Resp 20 09/29/18 04:06 BP 176/73 H 09/29/18 04:06 Pulse Ox 98 09/29/18 05:12 - Labs Result Diagrams: 09/29/18 01:05 09/29/18 01:05 Labs: Laboratory Results - last 24 hr 09/29/18 09/29/18 09/29/18 01:05 01:05 06:28 WBC 6.1 RBC 4.03 Hgb 10.8 L Hct 34.4 MCV 85.4 MCH 26.9 L MCHC 31.5 L RDW 15.5 H Plt Count 223 D MPV 9.9 Neut % (Auto) 65.5 Lymph % (Auto) 19.4 L [place] % (Auto) 6.2 Eos % (Auto) 8.6 H Baso % (Auto) 0.3 Neut # (Auto) 4.0 Lymph # (Auto) 1.2 [place] # (Auto) 0.4 Eos # (Auto) 0.5 Baso # (Auto) 0.0 Sodium 131 L Potassium 5.4 H Chloride 98 Carbon Dioxide 17 L Anion Gap 21 H BUN 72 H Creatinine 5.2 H Est GFR ( Amer) 10 Est GFR (Non-Af Amer) 8 POC Glucose (mg/dL) 181 H Random Glucose 205 H D Calcium 7.7 L Total Bilirubin 0.3 AST 51 H D ALT 62 H D Alkaline Phosphatase 187 H D Total Creatine Kinase 101 CK-MB (Mass) 3.21 Troponin I 0.0170 NT-Pro-B Natriuret Pep 7050 H Total Protein 6.9 Albumin 4.3 Globulin 2.6 Albumin/Globulin Ratio 1.6 Lipase 103
[2018-09-29] MEDS: Levothyroxine 50 MCG TAB PO SCH (08:19)
[2018-09-29] MEDS: (Novolin R) Insulin Human Regular 100 units/ml vial SC SCH ×4 (08:19→22:03)
--- NOTE | 2018-09-29 10:23 | RAD ---
Date of service: 09/29/2018 PROCEDURE: CHEST RADIOGRAPH, 1 VIEW HISTORY: chest pain COMPARISON: 09/19/2018. FINDINGS: LUNGS: There are low lung volumes. The lungs are clear the PLEURA: No pneumothorax or pleural effusion. CARDIOVASCULAR: There is moderate cardiomegaly. There are aortic atherosclerotic calcifications present. OSSEOUS STRUCTURES: Within normal limits for the patient's age. VISUALIZED UPPER ABDOMEN: Normal. OTHER FINDINGS: None. IMPRESSION: No active pulmonary disease.
--- NOTE | 2018-09-29 11:57 | CP.PCM.CON ---
History of Present Illness - History of Present Illness History of Present Illness: renal consult for stephanie 72 yo female with DM, HTN, CKD 5, CHF, CAD post stent, pituitary adenoma, presents with rising creatinine, metabolic acidosis, increased dyspnea. HD has been suggested in past, but patient did not consent. No fever or cough. No pedal edema. No chest pain or palpitations. Review of Systems - Constitutional Constitutional: Fatigue - EENT Eyes: absent: Blurred Vision, Change in Vision Nose/Mouth/Throat: absent: Nasal Congestion, Nasal Discharge - Cardiovascular Cardiovascular: Dyspnea, Dyspnea on Exertion. absent: Chest Pain, Paroxysmal Nocturnal Dyspnea - Respiratory Respiratory: absent: Cough - Gastrointestinal Gastrointestinal: absent: Abdominal Pain, Bloating - Genitourinary Genitourinary: absent: Change in Urinary Stream, Difficulty Urinating - Hematologic/Lymphatic Hematologic: absent: Easy Bleeding, Easy Bruising Past Patient History - Infectious Disease Hx of Infectious Diseases: None - Past Medical History & Family History Past Medical History?: Yes - Past Social History Smoking Status: Never Smoked - CARDIAC Hx Congestive Heart Failure: Yes Hx Hypercholesterolemia: Yes Hx Hypertension: Yes - PULMONARY Hx Respiratory Disorders: No - NEUROLOGICAL Hx Neurological Disorder: No Hx Dizziness: Yes - HEENT Hx HEENT Problems: Yes Other/Comment: left eye drooping-blurry due to DM - RENAL Hx Chronic Kidney Disease: Yes - ENDOCRINE/METABOLIC Hx Diabetes Mellitus Type 2: Yes - HEMATOLOGICAL/ONCOLOGICAL Hx Blood Disorders: No - INTEGUMENTARY Hx Dermatological Problems: No - MUSCULOSKELETAL/RHEUMATOLOGICAL Hx Falls: Yes - GASTROINTESTINAL Hx Gastrointestinal Disorders: No - GENITOURINARY/GYNECOLOGICAL Hx Genitourinary Disorders: No - PSYCHIATRIC Hx Substance Use: No - SURGICAL HISTORY Hx Coronary Stent: Yes (10/2015) - ANESTHESIA Hx Anesthesia: Yes Hx Anesthesia Reactions: No Hx Malignant Hyperthermia: No Meds Allergies/Adverse Reactions: Allergies Allergy/AdvReac Type Severity Reaction Status Date / Time No Known Allergies Allergy Verified 07/21/18 12:21 - Medications Medications: Current Medications Acetaminophen (Tylenol 325mg Tab) 650 mg PO Q6H PRN PRN Reason: Pain, Mild (1-3) Aspirin (Ecotrin) 81 mg PO DAILY [facility] Last Admin: 09/29/18 09:08 Dose: 81 mg Carvedilol (Coreg) 12.5 mg PO BID [facility] Last Admin: 09/29/18 09:08 Dose: 12.5 mg Furosemide (Lasix) 40 mg IVP DAILY [facility] Last Admin: 09/29/18 09:08 Dose: 40 mg Heparin Sodium (Porcine) (Heparin) 5,000 units SC Q12 [facility] Last Admin: 09/29/18 09:08 Dose: 5,000 units Hydralazine HCl (Apresoline) 50 mg PO TID [facility] Last Admin: 09/29/18 09:08 Dose: 50 mg Hydrocortisone (Cortef) 5 mg PO DAILY [facility] Last Admin: 09/29/18 09:17 Dose: 5 mg Influenza Virus Vaccine (Fluzone Quad [id number]) 60 mcg IM .ONCE ONE Stop: 10/03/18 10:01 Insulin Detemir (Levemir) 20 unit SC [facility] Insulin Human Regular (Novolin R) 0 unit SC ACHS [facility]; Protocol Last Admin: 09/29/18 08:19 Dose: 1 units Isosorbide Mononitrate (Imdur Er) 90 mg PO DAILY [facility] Last Admin: 09/29/18 09:07 Dose: 90 mg Levothyroxine Sodium (Synthroid) 50 mcg PO 0600 [facility] Last Admin: 09/29/18 08:19 Dose: 50 mcg Pantoprazole Sodium (Protonix Inj) 40 mg IVP DAILY [facility] Last Admin: 09/29/18 09:08 Dose: 40 mg Rosuvastatin Calcium (Crestor) 10 mg PO DAILY [facility] Last Admin: 09/29/18 09:07 Dose: 10 mg Physical Exam - Constitutional Appears: Non-toxic, In Acute Distress - Head Exam Head Exam: ATRAUMATIC, NORMAL INSPECTION - Eye Exam Eye Exam: EOMI - ENT Exam ENT Exam: Mucous Membranes Moist - Neck Exam Neck exam: Positive for: Full Rom. Negative for: Lymphadenopathy - Respiratory Exam Respiratory Exam: Decreased Breath Sounds, Rales - Cardiovascular Exam Cardiovascular Exam: REGULAR RHYTHM. absent: Rubs - GI/Abdominal Exam GI & Abdominal Exam: Normal Bowel Sounds. absent: Organomegaly - Extremities Exam Extremities exam: Negative for: pedal edema - Neurological Exam Neurological exam: Alert, Oriented x3 Results - Vital Signs Recent Vital Signs: Last Vital Signs Temp 97.8 F 09/29/18 07:11 Pulse 59 L 09/29/18 08:49 Resp 18 09/29/18 07:11 BP 163/77 H 09/29/18 09:08 Pulse Ox 100 09/29/18 07:11 - Labs Result Diagrams: 09/29/18 01:05 09/29/18 01:05 Labs: Laboratory Results - last 24 hr 09/29/18 09/29/18 09/29/18 01:05 01:05 06:28 WBC 6.1 RBC 4.03 Hgb 10.8 L Hct 34.4 MCV 85.4 MCH 26.9 L MCHC 31.5 L RDW 15.5 H Plt Count 223 D MPV 9.9 Neut % (Auto) 65.5 Lymph % (Auto) 19.4 L [place] % (Auto) 6.2 Eos % (Auto) 8.6 H Baso % (Auto) 0.3 Neut # (Auto) 4.0 Lymph # (Auto) 1.2 [place] # (Auto) 0.4 Eos # (Auto) 0.5 Baso # (Auto) 0.0 Sodium 131 L Potassium 5.4 H Chloride 98 Carbon Dioxide 17 L Anion Gap 21 H BUN 72 H Creatinine 5.2 H Est GFR ( Amer) 10 Est GFR (Non-Af Amer) 8 POC Glucose (mg/dL) 181 H Random Glucose 205 H D Calcium 7.7 L Total Bilirubin 0.3 AST 51 H D ALT 62 H D Alkaline Phosphatase 187 H D Total Creatine Kinase 101 CK-MB (Mass) 3.21 Troponin I 0.0170 NT-Pro-B Natriuret Pep 7050 H Total Protein 6.9 Albumin 4.3 Globulin 2.6 Albumin/Globulin Ratio 1.6 Lipase 103 09/29/18 10:59 WBC RBC Hgb Hct MCV MCH MCHC RDW Plt Count MPV Neut % (Auto) Lymph % (Auto) [place] % (Auto) Eos % (Auto) Baso % (Auto) Neut # (Auto) Lymph # (Auto) [place] # (Auto) Eos # (Auto) Baso # (Auto) Sodium Potassium Chloride Carbon Dioxide Anion Gap BUN Creatinine Est GFR ( Amer) Est GFR (Non-Af Amer) POC Glucose (mg/dL) 171 H Random Glucose Calcium Total Bilirubin AST ALT Alkaline Phosphatase Total Creatine Kinase CK-MB (Mass) Troponin I NT-Pro-B Natriuret Pep Total Protein Albumin Globulin Albumin/Globulin Ratio Lipase Assessment & Plan - Assessment and Plan (Free Text) Assessment: suggest initiation of dialysis pt has not agreed at this time will continue to pursue increase lasix for now fluid restrict K restrict in diet
[2018-09-29 16:47] LABS: ALB/GLOB RATIO 1.4 (1.0-2.1); ALBUMIN 3.6 g/dL (3.5-5.0); CALCIUM 7.1 mg/dl (8.6-10.4)
[2018-09-29] MEDS: Albuterol 0.083% Inhal Sol (2.5 mg/3 mL) UD INH SCH (19:16)
--- NOTE | 2018-09-29 20:20 | CP.PCM.PN ---
Subjective - Date & Time of Evaluation Date of Evaluation: 09/29/18 Time of Evaluation: 20:19 - Subjective Subjective: I examined the patient at bedside today now. Patient is having symptoms of uremia now with nausea vomiting and leg edema as well as facial swelling and mild shortness of breath. I advised the patient for dialysis, patient is currently agreeing for hemodialysis. We will place the patient on BiPAP. Kayexalate was given. Also albuterol was given. We will repeat the labs tonight. We will arrange for possible hemodialysis and also access. We will closely monitor the patient. I spoke to the patient daughter about the plan. Objective - Vital Signs/Intake and Output Vital Signs (last 24 hours): Temp Pulse Resp BP Pulse Ox 97.8 F 50 L 18 132/57 L 97 09/29/18 15:00 09/29/18 19:18 09/29/18 15:00 09/29/18 17:16 09/29/18 15:00 Intake and Output: 09/29/18 09/30/18 18:59 06:59 Intake Total 800 Balance 800 - Medications Medications: Current Medications Acetaminophen (Tylenol 325mg Tab) 650 mg PO Q6H PRN PRN Reason: Pain, Mild (1-3) Aspirin (Ecotrin) 81 mg PO DAILY [facility] Last Admin: 09/29/18 09:08 Dose: 81 mg Carvedilol (Coreg) 12.5 mg PO BID [facility] Last Admin: 09/29/18 09:08 Dose: 12.5 mg Furosemide (Lasix) 40 mg IVP DAILY [facility] Last Admin: 09/29/18 09:08 Dose: 40 mg Heparin Sodium (Porcine) (Heparin) 5,000 units SC Q12 [facility] Last Admin: 09/29/18 09:08 Dose: 5,000 units Hydralazine HCl (Apresoline) 25 mg PO TID [facility] Last Admin: 09/29/18 17:21 Dose: 25 mg Hydrocortisone (Cortef) 5 mg PO DAILY [facility] Last Admin: 09/29/18 09:17 Dose: 5 mg Influenza Virus Vaccine (Fluzone Quad [id number]) 60 mcg IM .ONCE ONE Stop: 10/03/18 10:01 Insulin Detemir (Levemir) 20 unit SC [facility] Insulin Human Regular (Novolin R) 0 unit SC [facility]; Protocol Last Admin: 09/29/18 17:21 Dose: 2 units Isosorbide Mononitrate (Imdur Er) 30 mg PO DAILY [facility] Levothyroxine Sodium (Synthroid) 50 mcg PO 0600 [facility] Last Admin: 09/29/18 08:19 Dose: 50 mcg Pantoprazole Sodium (Protonix Inj) 40 mg IVP DAILY [facility] Last Admin: 09/29/18 09:08 Dose: 40 mg Rosuvastatin Calcium (Crestor) 10 mg PO DAILY [facility] Last Admin: 09/29/18 09:07 Dose: 10 mg Sodium Bicarbonate (Sodium Bicarbonate Tab) 650 mg PO Q6 [facility] Last Admin: 09/29/18 17:21 Dose: 650 mg - Labs Labs: 09/29/18 01:05 09/29/18 16:27
[2018-09-29 20:49] LABS: ABG ALLEN TEST POS; ARTERIAL BLOOD GAS HCO3 17.1 mmol/L (21-28); ARTERIAL BLOOD GAS O2 SAT 99.5 % (95-98); ARTERIAL BLOOD GAS PCO2 47 mm/Hg (35-45); ARTERIAL BLOOD GAS PH 7.19 (7.35-7.45); ARTERIAL BLOOD GAS PO2 140 mm/Hg (80-100); ARTERIAL BLOOD GAS TCO2 19.4 mmol/L (22-28)
[2018-09-29] MEDS: Insulin Detemir 100 units/ml Vial (Levemir) SC SCH (22:20)
[2018-09-29 23:01] LABS: CALCIUM 7.3 mg/dl (8.6-10.4)
[2018-09-30] MEDS: Levothyroxine 50 MCG TAB PO SCH (06:17)
[2018-09-30 06:44] LABS: BASO # 0.1 K/uL (0.0-0.2); BASO % 1.3 % (0.0-2.0); EOS # 0.6 K/uL (0.0-0.7); EOS % 10.3 % (0.0-4.0); HEMOGLOBIN 9.5 g/dL (11.0-16.0); LYMPH # 1.7 K/uL (1.0-4.3); LYMPH % 28.9 % (20.0-40.0); MEAN CORPUSCULAR HEMOGLOBIN 27.2 pg (27.0-31.0); MEAN PLATELET VOLUME 9.9 fL (7.2-11.7); MONO # 0.5 K/uL (0.0-0.8); MONO % 9.1 % (0.0-10.0); NEUT % 50.4 % (50.0-75.0); RBC 3.49 Mil/uL (3.80-5.20); RED CELL DISTRIBUTION WIDTH 15.1 % (11.5-14.5); WHITE BLOOD COUNT 5.9 K/uL (4.8-10.8)
[2018-09-30 06:59] LABS: ALB/GLOB RATIO 1.4 (1.0-2.1); ALBUMIN 3.5 g/dL (3.5-5.0); CALCIUM 7.3 mg/dl (8.6-10.4)
--- NOTE | 2018-09-30 07:34 | CP.PCM.CON ---
History of Present Illness - History of Present Illness History of Present Illness: Vascular Surgery - Dr. Blank 72yo F w/ hx of CAD ,CHF, DM, HTN, HL, ESRD, who presented to the hospital on 09/29 with epigastric pain and possible uremic symptoms. Per primary and Nephrology patient has needed dialysis but was hesitant initially. Currently patient states that she understands she needs dialysis and is agreeable for a procedure for dialysis access. She denies any complaints at this time including SOB/Chest pain/Nausea/Vomiting/Fevers/Chills. PMH: CAD, CHF, DM, HTN, HL, ESRD PSH: Coronary stents, Pituitary macroadenoma surgery, Hysterectomy NKDA Meds as per chart Review of Systems - Review of Systems All systems: reviewed and no additional remarkable complaints except (as per HPI) Past Patient History - Infectious Disease Hx of Infectious Diseases: None - Past Medical History & Family History Past Medical History?: Yes - Past Social History Smoking Status: Never Smoked - CARDIAC Hx Congestive Heart Failure: Yes Hx Hypercholesterolemia: Yes Hx Hypertension: Yes - PULMONARY Hx Respiratory Disorders: No - NEUROLOGICAL Hx Neurological Disorder: No Hx Dizziness: Yes - HEENT Hx HEENT Problems: Yes Other/Comment: left eye drooping-blurry due to DM - RENAL Hx Chronic Kidney Disease: Yes - ENDOCRINE/METABOLIC Hx Diabetes Mellitus Type 2: Yes - HEMATOLOGICAL/ONCOLOGICAL Hx Blood Disorders: No - INTEGUMENTARY Hx Dermatological Problems: No - MUSCULOSKELETAL/RHEUMATOLOGICAL Hx Falls: Yes - GASTROINTESTINAL Hx Gastrointestinal Disorders: No - GENITOURINARY/GYNECOLOGICAL Hx Genitourinary Disorders: No - PSYCHIATRIC Hx Substance Use: No - SURGICAL HISTORY Hx Coronary Stent: Yes (10/2015) - ANESTHESIA Hx Anesthesia: Yes Hx Anesthesia Reactions: No Hx Malignant Hyperthermia: No Meds Allergies/Adverse Reactions: Allergies Allergy/AdvReac Type Severity Reaction Status Date / Time No Known Allergies Allergy Verified 07/21/18 12:21 - Medications Medications: Current Medications Acetaminophen (Tylenol 325mg Tab) 650 mg PO Q6H PRN PRN Reason: Pain, Mild (1-3) Aspirin (Ecotrin) 81 mg PO DAILY [facility] Last Admin: 09/29/18 09:08 Dose: 81 mg Carvedilol (Coreg) 12.5 mg PO BID [facility] Last Admin: 09/29/18 09:08 Dose: 12.5 mg Furosemide (Lasix) 40 mg IVP DAILY [facility] Last Admin: 09/29/18 09:08 Dose: 40 mg Heparin Sodium (Porcine) (Heparin) 5,000 units SC Q12 [facility] Last Admin: 09/29/18 22:20 Dose: 5,000 units Hydralazine HCl (Apresoline) 25 mg PO TID [facility] Last Admin: 09/29/18 17:21 Dose: 25 mg Hydrocortisone (Cortef) 5 mg PO DAILY [facility] Last Admin: 09/29/18 09:17 Dose: 5 mg Influenza Virus Vaccine (Fluzone Quad [id number]) 60 mcg IM .ONCE ONE Stop: 10/03/18 10:01 Insulin Detemir (Levemir) 20 unit SC [facility] Last Admin: 09/29/18 22:20 Dose: 20 units Insulin Human Regular (Novolin R) 0 unit SC ACHS [facility]; Protocol Last Admin: 09/29/18 22:03 Dose: Not Given Isosorbide Mononitrate (Imdur Er) 30 mg PO DAILY [facility] Levothyroxine Sodium (Synthroid) 50 mcg PO 0600 [facility] Last Admin: 09/30/18 06:17 Dose: 50 mcg Pantoprazole Sodium (Protonix Inj) 40 mg IVP DAILY [facility] Last Admin: 09/29/18 09:08 Dose: 40 mg Rosuvastatin Calcium (Crestor) 10 mg PO DAILY [facility] Last Admin: 09/29/18 09:07 Dose: 10 mg Sodium Bicarbonate (Sodium Bicarbonate Tab) 650 mg PO Q6 [facility] Last Admin: 09/30/18 06:17 Dose: 650 mg Physical Exam - Constitutional Appears: No Acute Distress - Head Exam Head Exam: ATRAUMATIC, NORMAL INSPECTION, NORMOCEPHALIC - Eye Exam Eye Exam: Normal appearance - Respiratory Exam Respiratory Exam: NORMAL BREATHING PATTERN. absent: Respiratory Distress - Cardiovascular Exam Cardiovascular Exam: REGULAR RHYTHM - Neurological Exam Neurological exam: Alert, Oriented x3 - Psychiatric Exam Psychiatric exam: Normal Affect, Normal Mood - Skin Skin Exam: Dry, Intact Results - Vital Signs Recent Vital Signs: Last Vital Signs Temp 98 F 09/30/18 04:00 Pulse 55 L 09/30/18 07:00 Resp 18 09/30/18 07:00 BP 130/55 L 09/30/18 06:54 Pulse Ox 99 09/30/18 07:00 - Labs Result Diagrams: 09/30/18 06:37 09/30/18 06:37 Labs: Laboratory Results - last 24 hr 09/29/18 09/29/18 09/29/18 10:59 16:24 16:27 WBC RBC Hgb Hct MCV MCH MCHC RDW Plt Count MPV Neut % (Auto) Lymph % (Auto) [place] % (Auto) Eos % (Auto) Baso % (Auto) Neut # (Auto) Lymph # (Auto) [place] # (Auto) Eos # (Auto) Baso # (Auto) Puncture Site pCO2 pO2 HCO3 ABG pH ABG Total CO2 ABG O2 Saturation ABG Base Excess Jimenez Test ABG Potassium A-a O2 Difference Respiratory Index Glucose Lactate Liter Flow FiO2 Crit Value Called To Crit Value Called By Crit Value Read Back Blood Gas Notified Time Sodium 130 L Potassium 6.1 H Chloride 102 Carbon Dioxide 16 L Anion Gap 18 BUN 77 H Creatinine 5.3 H Est GFR ( Amer) 10 Est GFR (Non-Af Amer) 8 POC Glucose (mg/dL) 171 H 280 H Random Glucose 238 H Calcium 7.1 L Phosphorus Magnesium Total Bilirubin 0.7 AST 45 H ALT 43 Alkaline Phosphatase 108 Total Protein 6.1 L Albumin 3.6 Globulin 2.5 Albumin/Globulin Ratio 1.4 Arterial Blood Potassium 09/29/18 09/29/18 09/29/18 20:45 21:15 22:43 WBC RBC Hgb Hct MCV MCH MCHC RDW Plt Count MPV Neut % (Auto) Lymph % (Auto) [place] % (Auto) Eos % (Auto) Baso % (Auto) Neut # (Auto) Lymph # (Auto) [place] # (Auto) Eos # (Auto) Baso # (Auto) Puncture Site Rba pCO2 47 H pO2 140 H HCO3 17.1 L ABG pH 7.19 L* ABG Total CO2 19.4 L ABG O2 Saturation 99.5 H ABG Base Excess -10.1 L Jimenez Test Pos ABG Potassium 4.7 A-a O2 Difference 15.0 Respiratory Index 0.1 Glucose 203 H Lactate 0.5 L Liter Flow 2.5 FiO2 30.0 Crit Value Called To Dr donaldson Crit Value Called By Amber alfonso Crit Value Read Back Y Blood Gas Notified Time 2048 Sodium 130.0 L 131 L Potassium 5.0 Chloride 103.0 100 Carbon Dioxide 19 L Anion Gap 17 BUN 78 H Creatinine 5.6 H Est GFR ( Amer) 9 Est GFR (Non-Af Amer) 8 POC Glucose (mg/dL) 231 H Random Glucose 202 H Calcium 7.3 L Phosphorus Magnesium Total Bilirubin AST ALT Alkaline Phosphatase Total Protein Albumin Globulin Albumin/Globulin Ratio Arterial Blood Potassium 4.7 09/30/18 09/30/18 06:37 06:37 WBC 5.9 RBC 3.49 L Hgb 9.5 L Hct 29.7 L MCV 85.0 MCH 27.2 MCHC 32.0 L RDW 15.1 H Plt Count 181 MPV 9.9 Neut % (Auto) 50.4 Lymph % (Auto) 28.9 [place] % (Auto) 9.1 Eos % (Auto) 10.3 H Baso % (Auto) 1.3 Neut # (Auto) 3.0 Lymph # (Auto) 1.7 [place] # (Auto) 0.5 Eos # (Auto) 0.6 Baso # (Auto) 0.1 Puncture Site pCO2 pO2 HCO3 ABG pH ABG Total CO2 ABG O2 Saturation ABG Base Excess [place] Test ABG Potassium A-a O2 Difference Respiratory Index Glucose Lactate Liter Flow FiO2 Crit Value Called To Crit Value Called By Crit Value Read Back Blood Gas Notified Time Sodium 131 L Potassium 4.5 Chloride 99 Carbon Dioxide 19 L Anion Gap 17 BUN 80 H Creatinine 5.4 H Est GFR ( Amer) 9 Est GFR (Non-Af Amer) 8 POC Glucose (mg/dL) Random Glucose 144 H D Calcium 7.3 L Phosphorus 7.8 H Magnesium 1.9 Total Bilirubin 0.3 AST 27 ALT 48 Alkaline Phosphatase 113 Total Protein 5.9 L Albumin 3.5 Globulin 2.4 Albumin/Globulin Ratio 1.4 Arterial Blood Potassium Assessment & Plan - Assessment and Plan (Free Text) Assessment: 72 yo F w/ ESRD needing dialysis access -Plan for Permacath tomorrow -Pt understands risks/benefits of procedure and is agreeable -NPO after midnight aaron López PGY4
[2018-09-30] MEDS: (Novolin R) Insulin Human Regular 100 units/ml vial SC SCH ×4 (08:00→21:43)
--- NOTE | 2018-09-30 08:09 | CP.PCM.CON ---
History of Present Illness - History of Present Illness History of Present Illness: Chief complaints: Epigastric pain, associated with chest tightness HPI: Patient was brought in by family with increasing epigastric pain, associated chest tightness. She was having significant pain over the epigastric area, and almost to for 4 days the pain was slowly getting worse, climbing stairs, associated with increasing pain, associated with palpitation and shortness of breath. She did not have any vomiting diarrhea, no leg swelling noted currently. Patient in the past has significant to severe renal insufficiency, and the patient was advised for hemodialysis by the client services specialist but the patient is currently reluctant. This is a 72-year-old female with a history of heart failure, hypertension, CAD, status post stent, renal insufficiency, diabetes. 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 Shortness of breath present. Leg swelling present. 10 point review of system noted On examination: HEENT PERRLA Chest good air entry Regular heart sounds Epigastric tenderness Leg swelling 1+ edema noted TRANSFUSION NURSE alert awake oriented Labs noted. Elevated BUN/creatinine level noted Chest x-ray nonspecific Elevated potassium, worsening renal parameters, also elevated liver enzymes noted Elevated proBNP level noted Assessment and recommendation: Patient is a 72-year-old female with multiple medical history hypertension diabetes hypercholesterolemia CAD status post stent. Status post pituitary tumor removal, currently on supplementation of the corticotrophin. No patient admitted with possible acute worsening renal insufficiency associated with some uremic symptoms likely. In my opinion patient may need hemodialysis will discuss with the patient. Diuretics to be continued Renal evaluation Patient transferred to the intensive care unit because of the worsening renal insufficiency. Hyperkalemia. Also the pH is 7.1. Patient is placed on BiPAP. She will closely monitored. I explained to the patient that she will need hemodialysis in the currently patient is agreeing. We will get a surgical opinion for permacath placement. Spoke to patient's daughter in detail and will follow the patient Past Patient History - Infectious Disease Hx of Infectious Diseases: None - Past Medical History & Family History Past Medical History?: Yes - Past Social History Smoking Status: Never Smoked - CARDIAC Hx Congestive Heart Failure: Yes Hx Hypercholesterolemia: Yes Hx Hypertension: Yes - PULMONARY Hx Respiratory Disorders: No - NEUROLOGICAL Hx Neurological Disorder: No Hx Dizziness: Yes - HEENT Hx HEENT Problems: Yes Other/Comment: left eye drooping-blurry due to DM - RENAL Hx Chronic Kidney Disease: Yes - ENDOCRINE/METABOLIC Hx Diabetes Mellitus Type 2: Yes - HEMATOLOGICAL/ONCOLOGICAL Hx Blood Disorders: No - INTEGUMENTARY Hx Dermatological Problems: No - MUSCULOSKELETAL/RHEUMATOLOGICAL Hx Falls: Yes - GASTROINTESTINAL Hx Gastrointestinal Disorders: No - GENITOURINARY/GYNECOLOGICAL Hx Genitourinary Disorders: No - PSYCHIATRIC Hx Substance Use: No - SURGICAL HISTORY Hx Coronary Stent: Yes (10/2015) - ANESTHESIA Hx Anesthesia: Yes Hx Anesthesia Reactions: No Hx Malignant Hyperthermia: No Meds Allergies/Adverse Reactions: Allergies Allergy/AdvReac Type Severity Reaction Status Date / Time No Known Allergies Allergy Verified 07/21/18 12:21 - Medications Medications: Current Medications Acetaminophen (Tylenol 325mg Tab) 650 mg PO Q6H PRN PRN Reason: Pain, Mild (1-3) Aspirin (Ecotrin) 81 mg PO DAILY [facility] Last Admin: 09/29/18 09:08 Dose: 81 mg Carvedilol (Coreg) 12.5 mg PO BID [facility] Last Admin: 09/29/18 09:08 Dose: 12.5 mg Furosemide (Lasix) 40 mg IVP DAILY [facility] Last Admin: 09/29/18 09:08 Dose: 40 mg Heparin Sodium (Porcine) (Heparin) 5,000 units SC Q12 [facility] Last Admin: 09/29/18 22:20 Dose: 5,000 units Hydralazine HCl (Apresoline) 25 mg PO TID [facility] Last Admin: 09/29/18 17:21 Dose: 25 mg Hydrocortisone (Cortef) 5 mg PO DAILY [facility] Last Admin: 09/29/18 09:17 Dose: 5 mg Influenza Virus Vaccine (Fluzone Quad [id number]) 60 mcg IM .ONCE ONE Stop: 10/03/18 10:01 Insulin Detemir (Levemir) 20 unit SC [facility] Last Admin: 09/29/18 22:20 Dose: 20 units Insulin Human Regular (Novolin R) 0 unit SC [facility]; Protocol Last Admin: 09/29/18 22:03 Dose: Not Given Isosorbide Mononitrate (Imdur Er) 30 mg PO DAILY [facility] Levothyroxine Sodium (Synthroid) 50 mcg PO 0600 [facility] Last Admin: 09/30/18 06:17 Dose: 50 mcg Pantoprazole Sodium (Protonix Inj) 40 mg IVP DAILY [facility] Last Admin: 09/29/18 09:08 Dose: 40 mg Rosuvastatin Calcium (Crestor) 10 mg PO DAILY [facility] Last Admin: 09/29/18 09:07 Dose: 10 mg Sodium Bicarbonate (Sodium Bicarbonate Tab) 650 mg PO Q6 [facility] Last Admin: 09/30/18 06:17 Dose: 650 mg Results - Vital Signs Recent Vital Signs: Last Vital Signs Temp 98 F 09/30/18 04:00 Pulse 55 L 09/30/18 07:00 Resp 18 09/30/18 07:00 BP 130/55 L 09/30/18 06:54 Pulse Ox 99 09/30/18 07:00 - Labs Result Diagrams: 09/30/18 06:37 09/30/18 06:37 Labs: Laboratory Results - last 24 hr 09/29/18 09/29/18 09/29/18 10:59 16:24 16:27 WBC RBC Hgb Hct MCV MCH MCHC RDW Plt Count MPV Neut % (Auto) Lymph % (Auto) [place] % (Auto) Eos % (Auto) Baso % (Auto) Neut # (Auto) Lymph # (Auto) [place] # (Auto) Eos # (Auto) Baso # (Auto) Puncture Site pCO2 pO2 HCO3 ABG pH ABG Total CO2 ABG O2 Saturation ABG Base Excess Jimenez Test ABG Potassium A-a O2 Difference Respiratory Index Glucose Lactate Liter Flow FiO2 Crit Value Called To Crit Value Called By Crit Value Read Back Blood Gas Notified Time Sodium 130 L Potassium 6.1 H Chloride 102 Carbon Dioxide 16 L Anion Gap 18 BUN 77 H Creatinine 5.3 H Est GFR ( Amer) 10 Est GFR (Non-Af Amer) 8 POC Glucose (mg/dL) 171 H 280 H Random Glucose 238 H Calcium 7.1 L Phosphorus Magnesium Total Bilirubin 0.7 AST 45 H ALT 43 Alkaline Phosphatase 108 Total Protein 6.1 L Albumin 3.6 Globulin 2.5 Albumin/Globulin Ratio 1.4 Arterial Blood Potassium 09/29/18 09/29/18 09/29/18 20:45 21:15 22:43 WBC RBC Hgb Hct MCV MCH MCHC RDW Plt Count MPV Neut % (Auto) Lymph % (Auto) [place] % (Auto) Eos % (Auto) Baso % (Auto) Neut # (Auto) Lymph # (Auto) [place] # (Auto) Eos # (Auto) Baso # (Auto) Puncture Site Rba pCO2 47 H pO2 140 H HCO3 17.1 L ABG pH 7.19 L* ABG Total CO2 19.4 L ABG O2 Saturation 99.5 H ABG Base Excess -10.1 L Jimenez Test Pos ABG Potassium 4.7 A-a O2 Difference 15.0 Respiratory Index 0.1 Glucose 203 H Lactate 0.5 L Liter Flow 2.5 FiO2 30.0 Crit Value Called To Dr donaldson Crit Value Called By Amber alfonso Crit Value Read Back Y Blood Gas Notified Time 2048 Sodium 130.0 L 131 L Potassium 5.0 Chloride 103.0 100 Carbon Dioxide 19 L Anion Gap 17 BUN 78 H Creatinine 5.6 H Est GFR ( Amer) 9 Est GFR (Non-Af Amer) 8 POC Glucose (mg/dL) 231 H Random Glucose 202 H Calcium 7.3 L Phosphorus Magnesium Total Bilirubin AST ALT Alkaline Phosphatase Total Protein Albumin Globulin Albumin/Globulin Ratio Arterial Blood Potassium 4.7 09/30/18 09/30/18 09/30/18 06:37 06:37 07:32 WBC 5.9 RBC 3.49 L Hgb 9.5 L Hct 29.7 L MCV 85.0 MCH 27.2 MCHC 32.0 L RDW 15.1 H Plt Count 181 MPV 9.9 Neut % (Auto) 50.4 Lymph % (Auto) 28.9 [place] % (Auto) 9.1 Eos % (Auto) 10.3 H Baso % (Auto) 1.3 Neut # (Auto) 3.0 Lymph # (Auto) 1.7 [place] # (Auto) 0.5 Eos # (Auto) 0.6 Baso # (Auto) 0.1 Puncture Site pCO2 pO2 HCO3 ABG pH ABG Total CO2 ABG O2 Saturation ABG Base Excess Jimenez Test ABG Potassium A-a O2 Difference Respiratory Index Glucose Lactate Liter Flow FiO2 Crit Value Called To Crit Value Called By Crit Value Read Back Blood Gas Notified Time Sodium 131 L Potassium 4.5 Chloride 99 Carbon Dioxide 19 L Anion Gap 17 BUN 80 H Creatinine 5.4 H Est GFR ( Amer) 9 Est GFR (Non-Af Amer) 8 POC Glucose (mg/dL) 146 H Random Glucose 144 H D Calcium 7.3 L Phosphorus 7.8 H Magnesium 1.9 Total Bilirubin 0.3 AST 27 ALT 48 Alkaline Phosphatase 113 Total Protein 5.9 L Albumin 3.5 Globulin 2.4 Albumin/Globulin Ratio 1.4 Arterial Blood Potassium
--- NOTE | 2018-09-30 14:17 | CP.PCM.PN ---
Subjective - Date & Time of Evaluation Date of Evaluation: 09/30/18 Time of Evaluation: 13:00 - Subjective Subjective: Shiley catheter insertion procedure note Indication: ESRD needing Hemodialysis Resident: PGY4 Attending: Abhay The patient was placed in a dependent position appropriate for shiley catheter placement in the IJ. The patients right neck and shoulder were prepped and draped in sterile fashion. 1% Lidocaine was used to anesthetize the surrounding skin area. A double lumen Shiley catheter was introduced into the the internal jugular using the Seldinger technique and under ultrasound guidance. The catheter was threaded smoothly over the guide wire and appropriate blood return was obtained. Each lumen of the catheter was tested for adequate blood return and flushed with sterile saline followed by heparin instillation. The catheter was then sutured in place to the skin and a sterile dressing applied. Dr. Blank was present for the entire procedure. Estimated Blood Loss: 5cc The patient tolerated the procedure well and there were no complications. Chest XRay was ordered to confirm placement. Objective - Vital Signs/Intake and Output Vital Signs (last 24 hours): Temp Pulse Resp BP Pulse Ox 98 F 56 L 14 134/50 L 99 09/30/18 04:00 09/30/18 10:55 09/30/18 10:55 09/30/18 10:55 09/30/18 10:55 Intake and Output: 09/30/18 09/30/18 06:59 18:59 Intake Total 200 100 Output Total 400 550 Balance -200 -450 - Medications Medications: Current Medications Acetaminophen (Tylenol 325mg Tab) 650 mg PO Q6H PRN PRN Reason: Pain, Mild (1-3) Aspirin (Ecotrin) 81 mg PO DAILY [facility] Last Admin: 09/30/18 09:39 Dose: Not Given Carvedilol (Coreg) 12.5 mg PO BID [facility] Last Admin: 09/29/18 09:08 Dose: 12.5 mg Furosemide (Lasix) 40 mg IVP DAILY [facility] Last Admin: 09/30/18 09:55 Dose: 40 mg Heparin Sodium (Porcine) (Heparin) 5,000 units SC Q12 [facility] Last Admin: 09/30/18 09:42 Dose: Not Given Hydralazine HCl (Apresoline) 25 mg PO TID [facility] Last Admin: 09/30/18 14:05 Dose: 25 mg Hydrocortisone (Cortef) 5 mg PO DAILY [facility] Last Admin: 09/30/18 09:39 Dose: Not Given Influenza Virus Vaccine (Fluzone Quad [id number]) 60 mcg IM .ONCE ONE Stop: 10/03/18 10:01 Insulin Detemir (Levemir) 20 unit SC [facility] Last Admin: 09/29/18 22:20 Dose: 20 units Insulin Human Regular (Novolin R) [address] [facility]; Protocol Last Admin: 09/30/18 11:51 Dose: Not Given Isosorbide Mononitrate (Imdur Er) 30 mg PO DAILY [facility] Last Admin: 09/30/18 09:42 Dose: Not Given Levothyroxine Sodium (Synthroid) 50 mcg PO 0600 [facility] Last Admin: 09/30/18 06:17 Dose: 50 mcg Pantoprazole Sodium (Protonix Inj) 40 mg IVP DAILY [facility] Last Admin: 09/30/18 09:55 Dose: 40 mg Rosuvastatin Calcium (Crestor) 10 mg PO [facility] Sodium Bicarbonate (Sodium Bicarbonate Tab) 650 mg PO Q6 [facility] Last Admin: 09/30/18 12:13 Dose: Not Given - Labs Labs: 09/30/18 06:37 09/30/18 06:37
--- NOTE | 2018-09-30 15:24 | RAD ---
Date of service: 09/30/2018 HISTORY: Post Permacath Insertion COMPARISON: Chest radiograph dated 09/29/2018. FINDINGS: LUNGS: Pulmonary vascular congestion. PLEURA: No significant pleural effusion identified, no pneumothorax apparent. CARDIOVASCULAR: Aortic atherosclerotic calcifications. Cardiomediastinal silhouette stably enlarged. OSSEOUS STRUCTURES: Unchanged. VISUALIZED UPPER ABDOMEN: Normal. OTHER FINDINGS: New right internal jugular access non tunneled hemodialysis catheter. IMPRESSION: New non tunneled right internal jugular access hemodialysis catheter. No pneumothorax. No other significant interval change.
[2018-09-30] MEDS ORDERED: Labetalol 25mg/5ml Syringe IVP PRN (17:29)
[2018-09-30] MEDS ORDERED: Labetalol 5mg/ml (4ml) IVP PRN (17:45)
[2018-09-30] MEDS: Insulin Detemir 100 units/ml Vial (Levemir) SC SCH (21:34)
[2018-10-01 06:24] LABS: BASO # 0.1 K/uL (0.0-0.2); BASO % 1.2 % (0.0-2.0); EOS # 0.6 K/uL (0.0-0.7); HEMOGLOBIN 10.3 g/dL (11.0-16.0); MEAN CELL VOLUME 84.1 fL (81.0-99.0); MEAN CORPUSCULAR HEMOGLOBIN 27.3 pg (27.0-31.0); MEAN CORPUSCULAR HGB CONC 32.4 g/dL (33.0-37.0); MONO # 0.5 K/uL (0.0-0.8); MONO % 9.1 % (0.0-10.0); NEUT # 3.2 K/uL (1.8-7.0); NEUT % 58.7 % (50.0-75.0); NRBC % 0.1 % (0.0-2.0); RBC 3.78 Mil/uL (3.80-5.20); RED CELL DISTRIBUTION WIDTH 14.8 % (11.5-14.5); WHITE BLOOD COUNT 5.4 K/uL (4.8-10.8)
[2018-10-01 06:30] LABS: ALB/GLOB RATIO 1.5 (1.0-2.1); ALBUMIN 3.8 g/dL (3.5-5.0); CALCIUM 7.7 mg/dl (8.6-10.4)
[2018-10-01] MEDS: Levothyroxine 50 MCG TAB PO SCH (06:37)
--- NOTE | 2018-10-01 07:46 | CP.PCM.PN ---
Subjective - Date & Time of Evaluation Date of Evaluation: 10/01/18 Time of Evaluation: 07:44 - Subjective Subjective: Patient had hemodialysis yesterday for 1st time. Episode of bradycardia noted. Patient is feeling otherwise well. Swelling is slightly less. Patient probably will need AV fistula. Vital signs stable. Mild bradycardia noted. Chest good air entry regular heart sounds. Assessment patient is a 72-year-old female with a history of diabetes, hypertension, high cholesterol, CAD, status post stent admitted with fluid overload acute renal insufficiency uremia. Currently on hemodialysis. We will continue the current treatment Patient will need AV fistula. Dialysis arrangement. We will discuss with the nephrology Objective - Vital Signs/Intake and Output Vital Signs (last 24 hours): Temp Pulse Resp BP Pulse Ox 98.6 F 62 14 163/55 H 100 10/01/18 04:00 10/01/18 07:10 10/01/18 07:10 10/01/18 07:10 10/01/18 07:10 Intake and Output: 10/01/18 10/01/18 06:59 18:59 Intake Total 240 0 Output Total 220 Balance 20 0 - Medications Medications: Current Medications Acetaminophen (Tylenol 325mg Tab) 650 mg PO Q6H PRN PRN Reason: Pain, Mild (1-3) Last Admin: 09/30/18 23:20 Dose: 650 mg Aspirin (Ecotrin) 81 mg PO DAILY [facility] Last Admin: 09/30/18 09:39 Dose: Not Given Calcium Acetate (Phoslo) 667 mg PO BIDCC [facility] Carvedilol (Coreg) 25 mg PO BID [facility] Furosemide (Lasix) 40 mg IVP DAILY [facility] Last Admin: 09/30/18 09:55 Dose: 40 mg Heparin Sodium (Porcine) (Heparin) 5,000 units SC Q12 [facility] Last Admin: 09/30/18 21:35 Dose: 5,000 units Hydralazine HCl (Apresoline) 50 mg PO TID [facility] Last Admin: 09/30/18 17:39 Dose: 50 mg Hydrocortisone (Cortef) 5 mg PO DAILY [facility] Last Admin: 09/30/18 09:39 Dose: Not Given Influenza Virus Vaccine (Fluzone Quad [id number]) 60 mcg IM .ONCE ONE Stop: 10/03/18 10:01 Insulin Detemir (Levemir) 20 unit SC [facility] Last Admin: 09/30/18 21:34 Dose: 20 units Insulin Human Regular (Novolin R) 0 unit SC [facility]; Protocol Last Admin: 09/30/18 21:43 Dose: Not Given Isosorbide Mononitrate (Imdur Er) 30 mg PO DAILY [facility] Last Admin: 09/30/18 09:42 Dose: Not Given Labetalol HCl (Trandate) 20 mg IVP Q4H PRN PRN Reason: Other Last Admin: 09/30/18 17:37 Dose: 20 mg Levothyroxine Sodium (Synthroid) 50 mcg PO 0600 [facility] Last Admin: 10/01/18 06:37 Dose: 50 mcg Pantoprazole Sodium (Protonix Inj) 40 mg IVP DAILY [facility] Last Admin: 09/30/18 09:55 Dose: 40 mg Potassium Chloride (Potassium Chloride Oral Soln) 20 meq PO ONCE ONE Stop: 10/01/18 07:46 Rosuvastatin Calcium (Crestor) 10 mg PO HS [facility] Last Admin: 09/30/18 21:34 Dose: 10 mg Sodium Bicarbonate (Sodium Bicarbonate Tab) 650 mg PO Q6 [facility] Last Admin: 10/01/18 06:34 Dose: 650 mg - Labs Labs: 10/01/18 06:10 10/01/18 06:09
[2018-10-01 07:59] LABS: HEPATITIS B SURFACE AG Negative (NEGATIVE)
[2018-10-01 08:04] LABS: HEPATITIS B CORE AB NEGATIVE (NEGATIVE)
[2018-10-01] MEDS: (Novolin R) Insulin Human Regular 100 units/ml vial SC SCH ×4 (08:09→22:22)
[2018-10-01] MEDS ORDERED: Potassium Chloride 20 mEq/15 ml LIQ UD PO ONE (08:15)
[2018-10-01 08:16] LABS: HEPATITIS C ANTIBODY NEGATIVE (NEGATIVE)
--- NOTE | 2018-10-01 08:21 | CP.PCM.PN ---
Subjective - Date & Time of Evaluation Date of Evaluation: 10/01/18 Time of Evaluation: 07:00 - Subjective Subjective: Vascular Surgery Progress note. Dr. Blank Pt seen and examined at bedside. No acute events overnight. No nausea, vomiting or diarrhea. Made approx 315cc of urine overnight. Had dialysis last night via R IJ shiley, no complaints noted. Objective - Vital Signs/Intake and Output Vital Signs (last 24 hours): Temp Pulse Resp BP Pulse Ox 98.6 F 62 14 163/55 H 100 10/01/18 04:00 10/01/18 07:10 10/01/18 07:10 10/01/18 07:10 10/01/18 07:10 Intake and Output: 10/01/18 10/01/18 06:59 18:59 Intake Total 240 0 Output Total 220 Balance 20 0 - Medications Medications: Current Medications Acetaminophen (Tylenol 325mg Tab) 650 mg PO Q6H PRN PRN Reason: Pain, Mild (1-3) Last Admin: 09/30/18 23:20 Dose: 650 mg Aspirin (Ecotrin) 81 mg PO DAILY [facility] Last Admin: 09/30/18 09:39 Dose: Not Given Calcium Acetate (Phoslo) 667 mg PO BIDCC [facility] Carvedilol (Coreg) 25 mg PO BID [facility] Furosemide (Lasix) 40 mg IVP DAILY [facility] Last Admin: 09/30/18 09:55 Dose: 40 mg Heparin Sodium (Porcine) (Heparin) 5,000 units SC Q12 [facility] Last Admin: 09/30/18 21:35 Dose: 5,000 units Hydralazine HCl (Apresoline) 50 mg PO TID [facility] Last Admin: 09/30/18 17:39 Dose: 50 mg Hydrocortisone (Cortef) 5 mg PO DAILY [facility] Last Admin: 09/30/18 09:39 Dose: Not Given Influenza Virus Vaccine (Fluzone Quad [id number]) 60 mcg IM .ONCE ONE Stop: 10/03/18 10:01 Insulin Detemir (Levemir) 20 unit SC HS [facility] Last Admin: 09/30/18 21:34 Dose: 20 units Insulin Human Regular (Novolin R) 0 unit SC ACHS [facility]; Protocol Last Admin: 10/01/18 08:09 Dose: Not Given Isosorbide Mononitrate (Imdur Er) 30 mg PO DAILY [facility] Last Admin: 09/30/18 09:42 Dose: Not Given Labetalol HCl (Trandate) 20 mg IVP Q4H PRN PRN Reason: Other Last Admin: 09/30/18 17:37 Dose: 20 mg Levothyroxine Sodium (Synthroid) 50 mcg PO 0600 [facility] Last Admin: 10/01/18 06:37 Dose: 50 mcg Pantoprazole Sodium (Protonix Inj) 40 mg IVP DAILY [facility] Last Admin: 09/30/18 09:55 Dose: 40 mg Rosuvastatin Calcium (Crestor) 10 mg PO HS [facility] Last Admin: 09/30/18 21:34 Dose: 10 mg Sodium Bicarbonate (Sodium Bicarbonate Tab) 650 mg PO Q6 [facility] Last Admin: 10/01/18 06:34 Dose: 650 mg - Labs Labs: 10/01/18 06:10 10/01/18 06:09 - Constitutional Appears: Well, Non-toxic, No Acute Distress - Head Exam Head Exam: ATRAUMATIC, NORMAL INSPECTION, NORMOCEPHALIC - Eye Exam Eye Exam: EOMI, Normal appearance - ENT Exam ENT Exam: Mucous Membranes Moist - Neck Exam Neck Exam: absent: Tenderness Additional comments: R IJ shiley in place - Respiratory Exam Respiratory Exam: NORMAL BREATHING PATTERN. absent: Clear to Ausculation Bilateral, Respiratory Distress - Extremities Exam Extremities Exam: Normal Inspection. absent: Calf Tenderness - Skin Skin Exam: Dry, Intact, Normal Color, Warm Assessment and Plan - Assessment and Plan (Free Text) Assessment: 72yo F with Chronic Kidney Disease. POD 1 s/p Right IJ shiley placement Plan: - May continue HD via R IJ Shiley as needed - Patient may eat today. - Possible intervention at a later date Further recs as per Dr. Abhay Heck PGY2 Surgery
[2018-10-01 08:33] LABS: ABG ALLEN TEST PO; ARTERIAL BLOOD GAS HCO3 23.3 mmol/L (21-28); ARTERIAL BLOOD GAS O2 SAT 98.6 % (95-98); ARTERIAL BLOOD GAS PCO2 60 mm/Hg (35-45); ARTERIAL BLOOD GAS PH 7.25 (7.35-7.45); ARTERIAL BLOOD GAS PO2 178 mm/Hg (80-100); ARTERIAL BLOOD GAS TCO2 28.1 mmol/L (22-28)
--- NOTE | 2018-10-01 13:27 | CARD ---
APPROVED REPORT Date of service: 09/29/2018 EKG Measurement Heart [id number] OK [id number] [id number] <Conclusion> Sinus bradycardia with sinus arrhythmia Low voltage QRS Borderline ECG
--- NOTE | 2018-10-01 13:48 | CP.PCM.PN ---
Subjective - Date & Time of Evaluation Date of Evaluation: 10/01/18 Time of Evaluation: 13:47 - Subjective Subjective: events noted s/p Rt IJ shiley and hd yesterday uop 300cc denies any chest pain still short of breath Objective - Vital Signs/Intake and Output Vital Signs (last 24 hours): Temp Pulse Resp BP Pulse Ox 98.2 F 58 L 15 141/52 L 99 10/01/18 12:00 10/01/18 13:14 10/01/18 13:14 10/01/18 13:14 10/01/18 13:14 Intake and Output: 10/01/18 10/01/18 06:59 18:59 Intake Total 240 275 Output Total 220 Balance 20 275 - Medications Medications: Current Medications Acetaminophen (Tylenol 325mg Tab) 650 mg PO Q6H PRN PRN Reason: Pain, Mild (1-3) Last Admin: 10/01/18 10:41 Dose: 650 mg Aspirin (Ecotrin) 81 mg PO DAILY [facility] Last Admin: 10/01/18 10:16 Dose: 81 mg Calcium Acetate (Phoslo) 667 mg PO BIDCC [facility] Last Admin: 10/01/18 09:00 Dose: Not Given Carvedilol (Coreg) 25 mg PO BID [facility] Furosemide (Lasix) 40 mg IVP DAILY [facility] Last Admin: 10/01/18 10:17 Dose: 40 mg Heparin Sodium (Porcine) (Heparin) 5,000 units SC Q12 [facility] Last Admin: 10/01/18 10:15 Dose: 5,000 units Hydralazine HCl (Apresoline) 50 mg PO TID [facility] Last Admin: 10/01/18 13:28 Dose: 50 mg Hydrocortisone (Cortef) 5 mg PO DAILY [facility] Last Admin: 10/01/18 10:17 Dose: 5 mg Influenza Virus Vaccine (Fluzone Quad [id number]) 60 mcg IM .ONCE ONE Stop: 10/03/18 10:01 Insulin Detemir (Levemir) 20 unit SC HS [facility] Last Admin: 09/30/18 21:34 Dose: 20 units Insulin Human Regular (Novolin R) 0 unit SC ACHS [facility]; Protocol Last Admin: 10/01/18 12:06 Dose: 2 units Isosorbide Mononitrate (Imdur Er) 30 mg PO DAILY [facility] Last Admin: 10/01/18 10:16 Dose: 30 mg Labetalol HCl (Trandate) 20 mg IVP Q4H PRN PRN Reason: Other Last Admin: 09/30/18 17:37 Dose: 20 mg Levothyroxine Sodium (Synthroid) 50 mcg PO 0600 [facility] Last Admin: 10/01/18 06:37 Dose: 50 mcg Pantoprazole Sodium (Protonix Inj) 40 mg IVP DAILY [facility] Last Admin: 10/01/18 10:16 Dose: 40 mg Rosuvastatin Calcium (Crestor) 10 mg PO HS [facility] Last Admin: 09/30/18 21:34 Dose: 10 mg Sodium Bicarbonate (Sodium Bicarbonate Tab) 650 mg PO Q6 [facility] Last Admin: 10/01/18 12:08 Dose: 650 mg - Labs Labs: 10/01/18 06:10 10/01/18 06:09 - Constitutional Appears: No Acute Distress (obese), Chronically Ill - Head Exam Head Exam: NORMAL INSPECTION, NORMOCEPHALIC - Eye Exam Eye Exam: Normal appearance - ENT Exam ENT Exam: Mucous Membranes Moist, Normal Exam - Neck Exam Neck Exam: Normal Inspection (rt IJ shiley) - Respiratory Exam Respiratory Exam: Decreased Breath Sounds, NORMAL BREATHING PATTERN - Cardiovascular Exam Cardiovascular Exam: REGULAR RHYTHM, RRR - GI/Abdominal Exam GI & Abdominal Exam: Distended, Soft - Extremities Exam Extremities Exam: Full ROM, Normal Inspection, Pedal Edema - Neurological Exam Neurological Exam: Alert, Awake - Psychiatric Exam Psychiatric exam: Normal Affect, Normal Mood - Skin Skin Exam: Dry, Intact Assessment and Plan (1) ESRD (end stage renal disease) Status: Acute (2) CAD (coronary artery disease) Status: Acute (3) CHF (congestive heart failure) Status: Acute (4) Hypertension Status: Acute - Assessment and Plan (Free Text) Assessment: hd tomorrow maintain iv lasix will need permcath and av fistula outpt hd placement
[2018-10-01] MEDS: Insulin Detemir 100 units/ml Vial (Levemir) SC SCH (22:18)
[2018-10-02] MEDS: Levothyroxine 50 MCG TAB PO SCH (05:30)
[2018-10-02] MEDS: (Novolin R) Insulin Human Regular 100 units/ml vial SC SCH ×4 (08:52→21:48)
--- NOTE | 2018-10-02 09:04 | CP.PCM.PN ---
Subjective - Date & Time of Evaluation Date of Evaluation: 10/02/18 Time of Evaluation: 09:03 - Subjective Subjective: seen and examined c/o severe back pain lethargic on hd, estimated uf 2.5L no n/v/d/f/c/dizziness/headache bp high 201/69 noted Objective - Vital Signs/Intake and Output Vital Signs (last 24 hours): Temp Pulse Resp BP Pulse Ox 99.7 F H 70 16 112/85 100 10/02/18 04:00 10/02/18 04:00 10/02/18 04:00 10/02/18 04:00 10/02/18 04:00 Intake and Output: 10/02/18 10/02/18 06:59 18:59 Intake Total 400 Output Total 500 Balance -100 - Medications Medications: Current Medications Acetaminophen (Tylenol 325mg Tab) 650 mg PO Q6H PRN PRN Reason: Pain, Mild (1-3) Last Admin: 10/01/18 17:14 Dose: 650 mg Aspirin (Ecotrin) 81 mg PO DAILY [facility] Last Admin: 10/01/18 10:16 Dose: 81 mg Calcium Acetate (Phoslo) 667 mg PO BIDCC [facility] Last Admin: 10/01/18 17:12 Dose: Not Given Carvedilol (Coreg) 25 mg PO BID [facility] Furosemide (Lasix) 40 mg IVP DAILY [facility] Last Admin: 10/01/18 10:17 Dose: 40 mg Heparin Sodium (Porcine) (Heparin) 5,000 units SC Q12 [facility] Last Admin: 10/01/18 21:14 Dose: 5,000 units Hydralazine HCl (Apresoline) 50 mg PO TID [facility] Last Admin: 10/01/18 17:15 Dose: 50 mg Hydrocortisone (Cortef) 5 mg PO DAILY [facility] Last Admin: 10/01/18 10:17 Dose: 5 mg Influenza Virus Vaccine (Fluzone Quad [id number]) 60 mcg IM .ONCE ONE Stop: 10/03/18 10:01 Insulin Detemir (Levemir) 20 unit SC [facility] Last Admin: 10/01/18 22:18 Dose: 20 units Insulin Human Regular (Novolin R) 0 unit SC [facility]; Protocol Last Admin: 10/02/18 08:52 Dose: 2 units Isosorbide Mononitrate (Imdur Er) 30 mg PO DAILY [facility] Last Admin: 10/01/18 10:16 Dose: 30 mg Levothyroxine Sodium (Synthroid) 50 mcg PO 0600 [facility] Last Admin: 10/02/18 05:30 Dose: 50 mcg Pantoprazole Sodium (Protonix Inj) 40 mg IVP DAILY [facility] Last Admin: 10/01/18 10:16 Dose: 40 mg Rosuvastatin Calcium (Crestor) 10 mg PO HS [facility] Last Admin: 10/01/18 21:14 Dose: 10 mg Sodium Bicarbonate (Sodium Bicarbonate Tab) 650 mg PO Q6 [facility] Last Admin: 10/02/18 05:30 Dose: 650 mg - Labs Labs: 10/01/18 06:10 10/01/18 06:09 - Constitutional Appears: Non-toxic, No Acute Distress, Older Than Stated Age, Chronically Ill - Head Exam Head Exam: NORMAL INSPECTION, NORMOCEPHALIC - Eye Exam Eye Exam: Normal appearance Pupil Exam: PERRL - ENT Exam ENT Exam: Mucous Membranes Moist, Normal Exam - Neck Exam Neck Exam: Full ROM (rt IJ shiley), Normal Inspection - Respiratory Exam Respiratory Exam: Decreased Breath Sounds - Cardiovascular Exam Cardiovascular Exam: REGULAR RHYTHM, RRR - GI/Abdominal Exam GI & Abdominal Exam: Distended, Soft - Extremities Exam Extremities Exam: Normal Inspection, Pedal Edema - Neurological Exam Neurological Exam: Alert, Awake, Oriented x3 - Psychiatric Exam Psychiatric exam: Normal Affect - Skin Skin Exam: Dry, Intact Assessment and Plan (1) ESRD (end stage renal disease) Status: Acute (2) CAD (coronary artery disease) Status: Acute (3) CHF (congestive heart failure) Status: Acute (4) Hypertension Status: Acute - Assessment and Plan (Free Text) Assessment: will likely need chronic dialysis permcath placement / av fistula hd placement one dose of iv labetalol now, may need to increase hydralazine dose plan for HD
[2018-10-02] MEDS ORDERED: Labetalol 5mg/ml (4ml) IVP STA (11:26)
[2018-10-02] MEDS: Insulin Detemir 100 units/ml Vial (Levemir) SC SCH (21:48)
[2018-10-03] MEDS: Levothyroxine 50 MCG TAB PO SCH ×2 (06:10→06:19)
[2018-10-03] MEDS: (Novolin R) Insulin Human Regular 100 units/ml vial SC SCH ×4 (07:44→22:30)
--- NOTE | 2018-10-03 08:05 | CP.PCM.PN ---
Subjective - Date & Time of Evaluation Date of Evaluation: 10/03/18 Time of Evaluation: 08:02 - Subjective Subjective: Patient now lying down on the bed. She is comfortable otherwise. Last night the blood pressure was noted to be elevated. She has no chest pain at this time. But complaining of some leg cramps. Patient received hemodialysis yesterday. There is a right-sided internal jugular venous hemodialysis catheter present On examination: Vital signs reviewed Elevated with systolic blood pressure noted Chest good air entry. Aberrations of the skin in the upper part of the chest noted Leg edema bilaterally 1+ noted Labs reviewed But no labs today Assessment and recognition: 72-year-old female with a history of CAD, status post stent Hypertension Diabetes Hypercholesteremia Renal insufficiency Admitted with uremia, acute on chronic renal insufficiency. Currently receiving hemodialysis. Patient will need permacath Patient also needs a AV fistula. I discussed with the patient. Meanwhile we will continue to monitor out of bed to chair physical therapy labs today and will follow the patient Objective - Vital Signs/Intake and Output Vital Signs (last 24 hours): Temp Pulse Resp BP Pulse Ox 99.2 F 73 17 185/51 H 100 10/03/18 00:00 10/03/18 04:00 10/03/18 04:00 10/03/18 00:00 10/03/18 04:00 Intake and Output: 10/03/18 10/03/18 06:59 18:59 Intake Total 150 Balance 150 - Medications Medications: Current Medications Acetaminophen (Tylenol 325mg Tab) 650 mg PO Q6H PRN PRN Reason: Pain, Mild (1-3) Last Admin: 10/02/18 11:21 Dose: 650 mg Aspirin (Ecotrin) 81 mg PO DAILY [facility] Last Admin: 10/02/18 10:03 Dose: 81 mg Calcium Acetate (Phoslo) 667 mg PO BIDCC [facility] Last Admin: 10/02/18 16:25 Dose: Not Given Carvedilol (Coreg) 25 mg PO BID [facility] Furosemide (Lasix) 40 mg IVP DAILY [facility] Last Admin: 10/02/18 10:11 Dose: 40 mg Heparin Sodium (Porcine) (Heparin) 5,000 units SC Q12 [facility] Last Admin: 10/02/18 21:47 Dose: 5,000 units Hydralazine HCl (Apresoline) 50 mg PO BID [facility] Last Admin: 10/02/18 17:08 Dose: 50 mg Hydrocortisone (Cortef) 5 mg PO DAILY [facility] Last Admin: 10/02/18 10:06 Dose: 5 mg Influenza Virus Vaccine (Fluzone Quad [id number]) 60 mcg IM .ONCE ONE Stop: 10/03/18 10:01 Insulin Detemir (Levemir) 20 unit SC [facility] Last Admin: 10/02/18 21:48 Dose: 20 units Insulin Human Regular (Novolin R) 0 unit SC [facility]; Protocol Last Admin: 10/03/18 07:44 Dose: Not Given Isosorbide Mononitrate (Imdur Er) 30 mg PO DAILY [facility] Last Admin: 10/02/18 09:58 Dose: 30 mg Levothyroxine Sodium (Synthroid) 50 mcg PO 0600 [facility] Last Admin: 10/03/18 06:19 Dose: 50 mcg Pantoprazole Sodium (Protonix Inj) 40 mg IVP DAILY [facility] Last Admin: 10/02/18 09:58 Dose: 40 mg Rosuvastatin Calcium (Crestor) 10 mg PO [facility] Last Admin: 10/02/18 21:46 Dose: 10 mg - Labs Labs: 10/01/18 06:10 10/01/18 06:09
--- NOTE | 2018-10-03 08:13 | CP.PCM.PN ---
Subjective - Date & Time of Evaluation Date of Evaluation: 10/02/18 Time of Evaluation: 21:00 - Subjective Subjective: Elevated systolic blood pressure noted today. Receiving hemodialysis. Leg swelling better. Some shortness of breath still noted Clinical examination is unremarkable otherwise. No chest pain or shortness of breath. Labs reviewed Assessment: 72-year-old female history of diabetes hypertension high cholesterol CAD status post stent admitted with the chronic uremia acute on chronic renal insufficiency status post dialysis will continue the treatment renal evaluation will follow the patient Objective - Vital Signs/Intake and Output Vital Signs (last 24 hours): Temp Pulse Resp BP Pulse Ox 99.2 F 73 17 185/51 H 100 10/03/18 00:00 10/03/18 04:00 10/03/18 04:00 10/03/18 00:00 10/03/18 04:00 Intake and Output: 10/03/18 10/03/18 06:59 18:59 Intake Total 150 Balance 150 - Medications Medications: Current Medications Acetaminophen (Tylenol 325mg Tab) 650 mg PO Q6H PRN PRN Reason: Pain, Mild (1-3) Last Admin: 10/02/18 11:21 Dose: 650 mg Aspirin (Ecotrin) 81 mg PO DAILY [facility] Last Admin: 10/02/18 10:03 Dose: 81 mg [facility] Last Admin: 10/03/18 08:07 Dose: 667 mg Carvedilol (Coreg) 25 mg PO BID [facility] Furosemide (Lasix) 40 mg IVP DAILY [facility] Last Admin: 10/02/18 10:11 Dose: 40 mg Heparin Sodium (Porcine) (Heparin) 5,000 units SC Q12 [facility] Last Admin: 10/02/18 21:47 Dose: 5,000 units Hydralazine HCl (Apresoline) 50 mg PO BID [facility] Last Admin: 10/02/18 17:08 Dose: 50 mg Hydrocortisone (Cortef) 5 mg PO DAILY [facility] Last Admin: 10/02/18 10:06 Dose: 5 mg Influenza Virus Vaccine (Fluzone Quad [id number]) 60 mcg IM .ONCE ONE Stop: 10/03/18 10:01 Insulin Detemir (Levemir) 20 unit SC [facility] Last Admin: 10/02/18 21:48 Dose: 20 units Insulin Human Regular (Novolin R) 0 unit SC [facility]; Protocol Last Admin: 10/03/18 07:44 Dose: Not Given Isosorbide Mononitrate (Imdur Er) 30 mg PO DAILY [facility] Last Admin: 10/02/18 09:58 Dose: 30 mg Levothyroxine Sodium (Synthroid) 50 mcg PO 0600 [facility] Last Admin: 10/03/18 06:19 Dose: 50 mcg Pantoprazole Sodium (Protonix Inj) 40 mg IVP DAILY [facility] Last Admin: 10/02/18 09:58 Dose: 40 mg Rosuvastatin Calcium (Crestor) 10 mg PO HS [facility] Last Admin: 10/02/18 21:46 Dose: 10 mg - Labs Labs: 10/01/18 06:10 10/01/18 06:09 Assessment and Plan (1) Acute on chronic renal failure Status: Acute (2) Diabetic nephropathy associated with type 2 diabetes mellitus Status: Acute (3) Uremia, acute Status: Acute
[2018-10-03 09:23] LABS: BASO # 0.1 K/uL (0.0-0.2); EOS # 0.8 K/uL (0.0-0.7); HEMOGLOBIN 9.5 g/dL (11.0-16.0); MEAN CORPUSCULAR HEMOGLOBIN 27.2 pg (27.0-31.0); MONO # 0.7 K/uL (0.0-0.8); RBC 3.48 Mil/uL (3.80-5.20)
[2018-10-03 09:31] LABS: BASO % 0.9 % (0.0-2.0); EOS % 12.1 % (0.0-4.0); LYMPH # 1.3 K/uL (1.0-4.3); LYMPH % 20.2 % (20.0-40.0); MEAN CELL VOLUME 84.4 fL (81.0-99.0); MEAN CORPUSCULAR HGB CONC 32.3 g/dL (33.0-37.0); MEAN PLATELET VOLUME 9.9 fL (7.2-11.7); MONO % 11.7 % (0.0-10.0); NEUT # 3.5 K/uL (1.8-7.0); NEUT % 55.1 % (50.0-75.0); RED CELL DISTRIBUTION WIDTH 14.7 % (11.5-14.5); WHITE BLOOD COUNT 6.3 K/uL (4.8-10.8)
[2018-10-03 09:37] LABS: ALB/GLOB RATIO 1.4 (1.0-2.1); ALBUMIN 3.6 g/dL (3.5-5.0); CALCIUM 8.1 mg/dl (8.6-10.4)
[2018-10-03] MEDS ORDERED: Influenza Vaccine 60 MCG/0.5 ML SYR (3 yr & up) IM ONE (10:00)
--- NOTE | 2018-10-03 13:02 | CP.PCM.PN ---
Subjective - Date & Time of Evaluation Date of Evaluation: 10/03/18 Time of Evaluation: 12:54 - Subjective Subjective: no acute distress family at bedside breathing is better no chest pain chronic sob no change in urine no headache no fever no vomiting no rash no abdominal pain Objective - Vital Signs/Intake and Output Vital Signs (last 24 hours): Temp Pulse Resp BP Pulse Ox 99.4 F 81 17 174/59 H 100 10/03/18 08:00 10/03/18 08:00 10/03/18 08:00 10/03/18 09:31 10/03/18 08:00 Intake and Output: 10/03/18 10/03/18 06:59 18:59 Intake Total 150 360 Output Total 150 Balance 150 210 - Medications Medications: Current Medications Acetaminophen (Tylenol 325mg Tab) 650 mg PO Q6H PRN PRN Reason: Pain, Mild (1-3) Last Admin: 10/02/18 11:21 Dose: 650 mg Aspirin (Ecotrin) 81 mg PO DAILY [facility] Last Admin: 10/03/18 09:32 Dose: 81 mg [facility] Last Admin: 10/03/18 08:07 Dose: 667 mg Carvedilol (Coreg) 25 mg PO BID [facility] Furosemide (Lasix) 40 mg IVP DAILY [facility] Last Admin: 10/03/18 09:31 Dose: 40 mg Heparin Sodium (Porcine) (Heparin) 5,000 units SC Q12 [facility] Last Admin: 10/03/18 09:31 Dose: 5,000 units Hydralazine HCl (Apresoline) 50 mg PO BID [facility] Last Admin: 10/03/18 09:33 Dose: 50 mg Hydrocortisone (Cortef) 5 mg PO DAILY [facility] Last Admin: 10/03/18 09:34 Dose: 5 mg Insulin Detemir (Levemir) 20 unit SC HS [facility] Last Admin: 10/02/18 21:48 Dose: 20 units Insulin Human Regular (Novolin R) 0 unit SC ACHS [facility]; Protocol Last Admin: 10/03/18 12:03 Dose: 3 units Isosorbide Mononitrate (Imdur Er) 30 mg PO DAILY [facility] Last Admin: 10/03/18 09:32 Dose: 30 mg Levothyroxine Sodium (Synthroid) 50 mcg PO 0600 [facility] Last Admin: 10/03/18 06:19 Dose: 50 mcg Pantoprazole Sodium (Protonix Inj) 40 mg IVP DAILY [facility] Last Admin: 10/03/18 09:31 Dose: 40 mg Rosuvastatin Calcium (Crestor) 10 mg PO HS [facility] Last Admin: 10/02/18 21:46 Dose: 10 mg - Labs Labs: 10/03/18 09:14 10/03/18 09:14 - Constitutional Appears: No Acute Distress, Chronically Ill - Head Exam Head Exam: ATRAUMATIC, NORMAL INSPECTION - Eye Exam Eye Exam: EOMI Pupil Exam: NORMAL ACCOMODATION - ENT Exam ENT Exam: Mucous Membranes Moist - Neck Exam Neck Exam: Full ROM. absent: Lymphadenopathy - Respiratory Exam Respiratory Exam: Decreased Breath Sounds, NORMAL BREATHING PATTERN. absent: Wheezes - Cardiovascular Exam Cardiovascular Exam: REGULAR RHYTHM. absent: Rubs - GI/Abdominal Exam GI & Abdominal Exam: Distended, Soft. absent: Tenderness - Neurological Exam Neurological Exam: Alert, Awake Assessment and Plan - Assessment and Plan (Free Text) Plan: for permcath and EVA for dialysis placement
[2018-10-03] MEDS: Insulin Detemir 100 units/ml Vial (Levemir) SC SCH (22:57)
[2018-10-04] MEDS: Levothyroxine 50 MCG TAB PO SCH (07:14)
[2018-10-04] MEDS: (Novolin R) Insulin Human Regular 100 units/ml vial SC SCH ×4 (08:30→22:20)
--- NOTE | 2018-10-04 08:36 | CP.PCM.PN ---
Subjective - Date & Time of Evaluation Date of Evaluation: 10/04/18 Time of Evaluation: 08:33 - Subjective Subjective: s/p first dialysis 10/02 feels weak still, less dyspneic eating better Objective - Vital Signs/Intake and Output Vital Signs (last 24 hours): Temp Pulse Resp BP Pulse Ox 98.2 F 72 16 175/77 H 100 10/04/18 00:00 10/04/18 00:00 10/04/18 00:00 10/04/18 00:00 10/04/18 00:00 Intake and Output: 10/04/18 10/04/18 06:59 18:59 Intake Total 280 Output Total 300 Balance -20 - Medications Medications: Current Medications Acetaminophen (Tylenol 325mg Tab) 650 mg PO Q6H PRN PRN Reason: Pain, Mild (1-3) Last Admin: 10/02/18 11:21 Dose: 650 mg Aspirin (Ecotrin) 81 mg PO DAILY [facility] Last Admin: 10/03/18 09:32 Dose: 81 mg Calcium Acetate (Phoslo) 667 mg PO TID [facility] Carvedilol (Coreg) 25 mg PO BID [facility] Heparin Sodium (Porcine) (Heparin) 5,000 units SC Q12 [facility] Last Admin: 10/03/18 22:56 Dose: 5,000 units Hydralazine HCl (Apresoline) 50 mg PO BID [facility] Last Admin: 10/03/18 17:25 Dose: 50 mg Hydrocortisone (Cortef) 5 mg PO DAILY [facility] Last Admin: 10/03/18 09:34 Dose: 5 mg Insulin Detemir (Levemir) [address] [facility] Last Admin: 10/03/18 22:57 Dose: 20 units Insulin Human Regular (Novolin R) 0 unit SC [facility]; Protocol Last Admin: 10/03/18 22:30 Dose: Not Given Isosorbide Mononitrate (Imdur Er) 30 mg PO DAILY [facility] Last Admin: 10/03/18 09:32 Dose: 30 mg Levothyroxine Sodium (Synthroid) 50 mcg PO 0600 [facility] Last Admin: 10/04/18 07:14 Dose: 50 mcg Pantoprazole Sodium (Protonix Inj) 40 mg IVP DAILY [facility] Last Admin: 10/03/18 09:31 Dose: 40 mg Rosuvastatin Calcium (Crestor) 10 mg PO HS [facility] Last Admin: 10/03/18 22:56 Dose: 10 mg - Labs Labs: 10/03/18 09:14 10/03/18 09:14 - Constitutional Appears: No Acute Distress, Chronically Ill - Head Exam Head Exam: ATRAUMATIC, NORMAL INSPECTION - Eye Exam Eye Exam: EOMI, Normal appearance - Neck Exam Neck Exam: Normal Inspection. absent: Tenderness - Respiratory Exam Respiratory Exam: Clear to Ausculation Bilateral, NORMAL BREATHING PATTERN - Cardiovascular Exam Cardiovascular Exam: REGULAR RHYTHM, +S1 - GI/Abdominal Exam GI & Abdominal Exam: Soft. absent: Tenderness - Extremities Exam Extremities Exam: Normal Inspection. absent: Tenderness - Neurological Exam Neurological Exam: Awake, CN II-XII Intact - Skin Skin Exam: Dry, Warm Assessment and Plan (1) ESRD (end stage renal disease) Status: Acute (2) Diabetic nephropathy associated with type 2 diabetes mellitus Status: Acute (3) CAD (coronary artery disease) Status: Acute (4) HTN (hypertension) Status: Acute - Assessment and Plan (Free Text) Plan: schedule dialysis TTS Needs AV access check iron stores, start ESAs Will need HD placement stop lasix
[2018-10-04] MEDS: Epoetin Alfa 10,000 unit/ml Dialysis IV SCH (10:08)
--- NOTE | 2018-10-04 15:28 | CP.PCM.PN ---
Subjective - Date & Time of Evaluation Date of Evaluation: 10/04/18 Time of Evaluation: 06:55 - Subjective Subjective: Vascular Surgery Progress note. Dr. Blank Pt seen and examined at bedside. No acute events overnight. Has been getting dialysis via R IJ Shiley. Does c/o some erythema swelling at right AC due to IV infiltration which was noted yesterday. No other complaints noted. Objective - Vital Signs/Intake and Output Vital Signs (last 24 hours): Temp Pulse Resp BP Pulse Ox 98.2 F 83 18 154/61 H 100 10/04/18 13:20 10/04/18 13:20 10/04/18 13:20 10/04/18 13:20 10/04/18 13:20 Intake and Output: 10/04/18 10/04/18 06:59 18:59 Intake Total 280 Output Total 300 Balance -20 - Medications Medications: Current Medications Acetaminophen (Tylenol 325mg Tab) 650 mg PO Q6H PRN PRN Reason: Pain, Mild (1-3) Last Admin: 10/02/18 11:21 Dose: 650 mg Aspirin (Ecotrin) 81 mg PO DAILY [facility] Last Admin: 10/04/18 11:42 Dose: 81 mg Calcium Acetate (Phoslo) 667 mg PO TIDCC [facility] Last Admin: 10/04/18 12:00 Dose: Not Given Carvedilol (Coreg) 25 mg PO BID [facility] Epoetin Dedrick (Procrit) 10,000 unit IV TTS [facility] Last Admin: 10/04/18 10:08 Dose: 10,000 unit Heparin Sodium (Porcine) (Heparin) 5,000 units SC Q12 [facility] Last Admin: 10/04/18 11:43 Dose: 5,000 units Hydralazine HCl (Apresoline) 50 mg PO BID [facility] Last Admin: 10/04/18 11:42 Dose: 50 mg Hydrocortisone (Cortef) 5 mg PO DAILY [facility] Last Admin: 10/04/18 11:42 Dose: 5 mg Insulin Detemir (Levemir) 20 unit SC HS [facility] Last Admin: 10/03/18 22:57 Dose: 20 units Insulin Human Regular (Novolin R) 0 unit SC ACHS [facility]; Protocol Last Admin: 10/04/18 12:30 Dose: 2 units Isosorbide Mononitrate (Imdur Er) 30 mg PO DAILY [facility] Last Admin: 10/04/18 11:42 Dose: 30 mg Levothyroxine Sodium (Synthroid) 50 mcg PO 0600 [facility] Last Admin: 10/04/18 07:14 Dose: 50 mcg Pantoprazole Sodium (Protonix Inj) 40 mg IVP DAILY [facility] Last Admin: 10/04/18 11:42 Dose: 40 mg Rosuvastatin Calcium (Crestor) 10 mg PO HS [facility] Last Admin: 10/03/18 22:56 Dose: 10 mg - Labs Labs: 10/03/18 09:14 10/03/18 09:14 - Constitutional Appears: Well, No Acute Distress - Head Exam Head Exam: ATRAUMATIC, NORMAL INSPECTION, NORMOCEPHALIC - Eye Exam Eye Exam: EOMI, Normal appearance. absent: Scleral icterus - ENT Exam ENT Exam: Mucous Membranes Moist - Respiratory Exam Respiratory Exam: NORMAL BREATHING PATTERN. absent: Accessory Muscle Use, Respiratory Distress - Cardiovascular Exam Cardiovascular Exam: absent: JVD - GI/Abdominal Exam GI & Abdominal Exam: Soft. absent: Distended, Guarding, Rigid, Tenderness, Rebound - Extremities Exam Additional comments: R Antecubital fossa with some redness and tenderness noted at prior IV site. - Neurological Exam Neurological Exam: Alert, Awake, Oriented x3 - Psychiatric Exam Psychiatric exam: Normal Affect, Normal Mood Assessment and Plan - Assessment and Plan (Free Text) Assessment: 72yo F with Chronic Kidney Disease. Currently getting HD via Right IJ Shiley placed on 09/30 Plan: - NPO past midnight - Plan for OR tomorrow, 10/05/18 - Medical optimization - Consent on chart Further recs as per Dr. Abhay Heck PGY2 Surgery
--- NOTE | 2018-10-04 21:54 | CP.PCM.PN ---
Subjective - Date & Time of Evaluation Date of Evaluation: 10/04/18 Time of Evaluation: 21:53 - Subjective Subjective: Patient currently sleeping. She is comfortable. History hematology. Not in any distress. Tomorrow scheduled to have the AV fistula. On examination: Blood pressure is stable. Chest good entry regular [place] nontender abdomen edema L plus noted Assessment and plan: Patient is here 72-year-old female with a history of CAD hypertension hypercholesterolemia renal insufficiency admitted with acute worsening renal failure, uremia. Right knee currently receiving hemodialysis for fistula tomorrow. Clinically stable we will follow the patient Objective - Vital Signs/Intake and Output Vital Signs (last 24 hours): Temp Pulse Resp BP Pulse Ox 99 F 80 16 155/62 H 100 10/04/18 20:00 10/04/18 20:00 10/04/18 20:00 10/04/18 20:00 10/04/18 20:00 - Medications Medications: Current Medications Acetaminophen (Tylenol 325mg Tab) 650 mg PO Q6H PRN PRN Reason: Pain, Mild (1-3) Last Admin: 10/02/18 11:21 Dose: 650 mg Aspirin (Ecotrin) 81 mg PO DAILY [facility] Last Admin: 10/04/18 11:42 Dose: 81 mg Calcium Acetate (Phoslo) 667 mg PO TIDCC [facility] Last Admin: 10/04/18 17:48 Dose: 667 mg Carvedilol (Coreg) 25 mg PO BID [facility] Epoetin Dedrick (Procrit) 10,000 unit IV TTS [facility] Last Admin: 10/04/18 10:08 Dose: 10,000 unit Heparin Sodium (Porcine) (Heparin) 5,000 units SC Q12 [facility] Last Admin: 10/04/18 11:43 Dose: 5,000 units Hydralazine HCl (Apresoline) 50 mg PO BID [facility] Last Admin: 10/04/18 17:48 Dose: 50 mg Hydrocortisone (Cortef) 5 mg PO DAILY [facility] Last Admin: 10/04/18 11:42 Dose: 5 mg Insulin Detemir (Levemir) 20 unit SC HS [facility] Last Admin: 10/03/18 22:57 Dose: 20 units Insulin Human Regular (Novolin R) 0 unit SC ACHS [facility]; Protocol Last Admin: 10/04/18 17:30 Dose: 2 units Isosorbide Mononitrate (Imdur Er) 30 mg PO DAILY [facility] Last Admin: 10/04/18 11:42 Dose: 30 mg Levothyroxine Sodium (Synthroid) 50 mcg PO 0600 [facility] Last Admin: 10/04/18 07:14 Dose: 50 mcg Pantoprazole Sodium (Protonix Inj) 40 mg IVP DAILY [facility] Last Admin: 10/04/18 11:42 Dose: 40 mg Rosuvastatin Calcium (Crestor) 10 mg PO HS [facility] Last Admin: 10/03/18 22:56 Dose: 10 mg - Labs Labs: 10/03/18 09:14 10/03/18 09:14 Assessment and Plan (1) Acute on chronic renal failure Status: Acute (2) Diabetic nephropathy associated with type 2 diabetes mellitus Status: Acute (3) Uremia, acute Status: Acute
[2018-10-04] MEDS: Insulin Detemir 100 units/ml Vial (Levemir) SC SCH (22:20)
[2018-10-05 06:16] LABS: HEMOGLOBIN 9.5 g/dL (11.0-16.0); MEAN CELL VOLUME 85.8 fL (81.0-99.0); MEAN CORPUSCULAR HEMOGLOBIN 27.1 pg (27.0-31.0); MEAN CORPUSCULAR HGB CONC 31.6 g/dL (33.0-37.0); RBC 3.5 Mil/uL (3.80-5.20); RED CELL DISTRIBUTION WIDTH 14.3 % (11.5-14.5); WHITE BLOOD COUNT 7.2 K/uL (4.8-10.8)
[2018-10-05] MEDS: Levothyroxine 50 MCG TAB PO SCH (06:23)
[2018-10-05 06:50] LABS: CALCIUM 8.3 mg/dl (8.6-10.4)
[2018-10-05 06:56] LABS: INR 1.2; PROTHROMBIN TIME 12.6 SECONDS (9.7-12.2)
[2018-10-05] MEDS: (Novolin R) Insulin Human Regular 100 units/ml vial SC SCH ×4 (07:36→22:00)
--- NOTE | 2018-10-05 08:57 | CP.PCM.PN ---
Subjective - Date & Time of Evaluation Date of Evaluation: 10/05/18 Time of Evaluation: 08:55 - Subjective Subjective: Patient now lying down comfortably. Less facial swelling noted. No chest pain or shortness of breath Leg swelling is better On examination: Vital signs stable. Chest good air entry Regular HS nontender abdomen 1+ pedal edema Labs reviewed Patient supposed to have the permacath placement today, currently n.p.o. Assessment and recommendation: 72-year-old female with a history of CAD hypertension hypercholesterolemia obesity hypoventilation congestive heart failure history of diabetes induced nephritic syndrome, diabetic nephropathy and end-stage renal disease now on dialysis. For permacath placement. Renal follow-up. Patient will continue antihypertensive She is also on antiplatelets Statins Controlled blood pressure patient will need outpatient dialysis placement physical therapy and will follow the patient Objective - Vital Signs/Intake and Output Vital Signs (last 24 hours): Temp Pulse Resp BP Pulse Ox 98 F 73 16 172/48 H 97 10/05/18 08:00 10/05/18 08:00 10/05/18 08:00 10/05/18 08:00 10/05/18 08:00 Intake and Output: 10/05/18 10/05/18 06:59 18:59 Intake Total 160 Output Total 550 Balance -390 - Medications Medications: Current Medications Acetaminophen (Tylenol 325mg Tab) 650 mg PO Q6H PRN PRN Reason: Pain, Mild (1-3) Last Admin: 10/02/18 11:21 Dose: 650 mg Aspirin (Ecotrin) 81 mg PO DAILY [facility] Last Admin: 10/04/18 11:42 Dose: 81 mg Calcium Acetate (Phoslo) 667 mg PO TIDCC [facility] Last Admin: 10/04/18 17:48 Dose: 667 mg Carvedilol (Coreg) 25 mg PO BID [facility] Epoetin Dedrick (Procrit) 10,000 unit IV TTS [facility] Last Admin: 10/04/18 10:08 Dose: 10,000 unit Heparin Sodium (Porcine) (Heparin) 5,000 units SC Q12 [facility] Last Admin: 10/04/18 22:17 Dose: 5,000 units Hydralazine HCl (Apresoline) 50 mg PO BID [facility] Last Admin: 10/04/18 17:48 Dose: 50 mg Hydrocortisone (Cortef) 5 mg PO DAILY [facility] Last Admin: 10/04/18 11:42 Dose: 5 mg Insulin Detemir (Levemir) 20 unit SC [facility] Last Admin: 10/04/18 22:20 Dose: Not Given Insulin Human Regular (Novolin R) 0 unit SC [facility]; Protocol Last Admin: 10/05/18 07:36 Dose: Not Given Isosorbide Mononitrate (Imdur Er) 30 mg PO DAILY [facility] Last Admin: 10/04/18 11:42 Dose: 30 mg Levothyroxine Sodium (Synthroid) 50 mcg PO 0600 [facility] Last Admin: 10/05/18 06:23 Dose: 50 mcg Pantoprazole Sodium (Protonix Inj) 40 mg IVP DAILY [facility] Last Admin: 10/04/18 11:42 Dose: 40 mg Rosuvastatin Calcium (Crestor) 10 mg PO [facility] Last Admin: 10/04/18 22:17 Dose: 10 mg - Labs Labs: 10/05/18 06:06 10/05/18 06:06 PT 12.6 SECONDS (9.7-12.2) H 10/05/18 06:06 INR 1.2 10/05/18 06:06 APTT 34 SECONDS (21-34) 10/05/18 06:06 Assessment and Plan (1) Acute on chronic renal failure Status: Acute (2) Diabetic nephropathy associated with type 2 diabetes mellitus Status: Acute (3) Uremia, acute Status: Acute
[2018-10-05] MEDS ORDERED: Labetalol 5mg/ml (4ml) IVP STA ×2 (10:58→18:08)
[2018-10-05] MEDS ORDERED: HEPARIN-NS 5,000 UNITS/500 ML 5,000 UNIT/500 ML BAG IV ONE (11:29)
[2018-10-05] MEDS ORDERED: ceFAZolin 1 gm in NS 0 GM/0 ML BAG IVPB ONE (11:29)
[2018-10-05] MEDS ORDERED: Propofol 10 mg/ml Inj (20 ML) ONE (12:34)
[2018-10-05] MEDS ORDERED: Midazolam 2 MG/2 ML VIAL ONE (12:55)
--- NOTE | 2018-10-05 13:06 | CP.PCM.PN ---
Subjective - Date & Time of Evaluation Date of Evaluation: 10/05/18 Time of Evaluation: 13:04 - Subjective Subjective: s/p dialysis 1/3- tolerated well; UF 1500ml for permcath, possible AV access today iron sat=10% lying flat, not dyspneic; no other complaint Objective - Vital Signs/Intake and Output Vital Signs (last 24 hours): Temp Pulse Resp BP Pulse Ox 98 F 73 16 172/48 H 97 10/05/18 08:00 10/05/18 08:00 10/05/18 08:00 10/05/18 08:00 10/05/18 08:00 Intake and Output: 10/05/18 10/05/18 06:59 18:59 Intake Total 160 Output Total 550 Balance -390 - Medications Medications: Current Medications Acetaminophen (Tylenol 325mg Tab) 650 mg PO Q6H PRN PRN Reason: Pain, Mild (1-3) Last Admin: 10/02/18 11:21 Dose: 650 mg Aspirin (Ecotrin) 81 mg PO DAILY [facility] Last Admin: 10/05/18 10:27 Dose: Not Given Calcium Acetate (Phoslo) 667 mg PO TIDCC [facility] Last Admin: 10/05/18 08:00 Dose: Not Given Carvedilol (Coreg) 25 mg PO BID [facility] Epoetin Dedrick (Procrit) 10,000 unit IV TTS [facility] Last Admin: 10/04/18 10:08 Dose: 10,000 unit Heparin Sodium (Porcine) (Heparin) 5,000 units SC Q12 [facility] Last Admin: 10/04/18 22:17 Dose: 5,000 units Hydralazine HCl (Apresoline) 50 mg PO BID [facility] Last Admin: 10/05/18 10:26 Dose: Not Given Hydrocortisone (Cortef) 5 mg PO DAILY [facility] Last Admin: 10/05/18 10:11 Dose: 5 mg Insulin Detemir (Levemir) 20 unit SC HS [facility] Last Admin: 10/04/18 22:20 Dose: Not Given Insulin Human Regular (Novolin R) 0 unit SC ACHS [facility]; Protocol Last Admin: 10/05/18 07:36 Dose: Not Given Isosorbide Mononitrate (Imdur Er) 30 mg PO DAILY [facility] Last Admin: 10/05/18 10:11 Dose: 30 mg Levothyroxine Sodium (Synthroid) 50 mcg PO 0600 [facility] Last Admin: 10/05/18 06:23 Dose: 50 mcg Pantoprazole Sodium (Protonix Inj) 40 mg IVP DAILY [facility] Last Admin: 10/05/18 10:28 Dose: 40 mg Rosuvastatin Calcium (Crestor) 10 mg PO HS [facility] Last Admin: 10/04/18 22:17 Dose: 10 mg - Labs Labs: 10/05/18 06:06 10/05/18 06:06 PT 12.6 SECONDS (9.7-12.2) H 10/05/18 06:06 INR 1.2 10/05/18 06:06 APTT 34 SECONDS (21-34) 10/05/18 06:06 - Constitutional Appears: No Acute Distress, Confused, Chronically Ill - Head Exam Head Exam: ATRAUMATIC, NORMAL INSPECTION - Eye Exam Eye Exam: EOMI, Normal appearance - Neck Exam Neck Exam: Normal Inspection. absent: Tenderness - Respiratory Exam Respiratory Exam: Clear to Ausculation Bilateral, NORMAL BREATHING PATTERN - Cardiovascular Exam Cardiovascular Exam: REGULAR RHYTHM, +S1 - GI/Abdominal Exam GI & Abdominal Exam: Soft. absent: Tenderness - Extremities Exam Extremities Exam: Normal Inspection. absent: Tenderness - Neurological Exam Neurological Exam: Awake, CN II-XII Intact - Skin Skin Exam: Dry, Warm Assessment and Plan (1) ESRD (end stage renal disease) Status: Acute (2) Diabetic nephropathy associated with type 2 diabetes mellitus Status: Acute (3) CAD (coronary artery disease) Status: Acute (4) HTN (hypertension) Status: Acute - Assessment and Plan (Free Text) Plan: permcath today dialysis in AM then MWF IV Fe follow up chemistries
--- NOTE | 2018-10-05 14:39 | RAD ---
Date of service: 10/05/2018 PROCEDURE: CHEST RADIOGRAPH, 1 VIEW HISTORY: post intubation COMPARISON: 09/30/2018. FINDINGS: The endotracheal tube terminates 1.3 cm proximal to the kaylah LUNGS: There are low lung volumes. There is diffuse haziness in the lungs. PLEURA: No pneumothorax or pleural effusion. CARDIOVASCULAR: There is severe cardiomegaly. There are aortic atherosclerotic calcifications present. OSSEOUS STRUCTURES: Within normal limits for the patient's age. VISUALIZED UPPER ABDOMEN: Normal. OTHER FINDINGS: None. IMPRESSION: Endotracheal tube terminates 1.3 cm proximal to the kaylah. Diffuse haziness in the lungs may represent layering effusion or alveolar edema. Severe cardiomegaly.
--- NOTE | 2018-10-05 15:47 | CT ---
Date of service: 10/05/2018 PROCEDURE: CT HEAD WITHOUT CONTRAST. HISTORY: AMS COMPARISON: 08/22/2017. TECHNIQUE: Axial computed tomography images were obtained through the head/brain without intravenous contrast. Radiation dose: Total exam DLP = 1453.33 mGy-cm. This CT exam was performed using one or more of the following dose reduction techniques: Automated exposure control, adjustment of the mA and/or kV according to patient size, and/or use of iterative reconstruction technique. FINDINGS: HEMORRHAGE: No intracranial hemorrhage. BRAIN: There are mild chronic microangiopathic changes. There is no mass, mass effect or abnormal extra-axial fluid collection. There is no territorial infarction. The midline sagittal structures are normal. VENTRICLES: There is mild age-related global parenchymal volume loss and proportionate enlargement of the ventricles and cortical sulci. CALVARIUM: There is no calvarial fracture or extracranial soft tissue swelling. PARANASAL SINUSES: There fluid in the right ethmoid air cells, maxillary sinus and sphenoid chamber. MASTOID AIR CELLS: Predominantly clear. OTHER FINDINGS: None. IMPRESSION: No acute intracranial abnormality.
--- NOTE | 2018-10-05 15:57 | CP.PCM.CON ---
<Michelle Diane - Last Filed: 10/05/18 17:04> History of Present Illness - History of Present Illness History of Present Illness: ICU Consult Note for Dr. Ríos's service CC: Cardiac arrest Patient is a 72 yo female w/ PMH of DM2, HTN, CKD 5, CHF, CAD post stent, pi tuitary adenoma admitted to ICU s/p cardiac arrest in surgery for attempted catheter placement and AVF placement. Patient received fentanyl and then it was noticed that patient had a jerking like motion suggestive of seizure. Patient was given a dose of versed for possible seizure activity. Patient became pulseless and ACLS protocol was initiated with ROSC achieved. Patient was intubated by surgical/anasthesia team and brought to ICU. PMH- DM2, HTN, CKD 5, CHF, CAD post stent, pituitary adenoma PSH- Coronary stents, Pituitary macroadenoma surgery, Hysterectomy NKDA Meds as per orders Social- limited as patient is intubated Review of Systems - Review of Systems Systems not reviewed;Unavailable: Intubated Past Patient History - Infectious Disease Hx of Infectious Diseases: None - Past Medical History & Family History Past Medical History?: Yes - Past Social History Smoking Status: Never Smoked - CARDIAC Hx Congestive Heart Failure: Yes Hx Hypercholesterolemia: Yes Hx Hypertension: Yes - PULMONARY Hx Respiratory Disorders: No - NEUROLOGICAL Hx Neurological Disorder: No Hx Dizziness: Yes - HEENT Hx HEENT Problems: Yes Other/Comment: left eye drooping-blurry due to DM - RENAL Hx Chronic Kidney Disease: Yes - ENDOCRINE/METABOLIC Hx Diabetes Mellitus Type 2: Yes - HEMATOLOGICAL/ONCOLOGICAL Hx Blood Disorders: No - INTEGUMENTARY Hx Dermatological Problems: No - MUSCULOSKELETAL/RHEUMATOLOGICAL Hx Falls: Yes - GASTROINTESTINAL Hx Gastrointestinal Disorders: No - GENITOURINARY/GYNECOLOGICAL Hx Genitourinary Disorders: No - PSYCHIATRIC Hx Substance Use: No - SURGICAL HISTORY Hx Coronary Stent: Yes (10/2015) - ANESTHESIA Hx Anesthesia: Yes Hx Anesthesia Reactions: No Hx Malignant Hyperthermia: No Meds Allergies/Adverse Reactions: Allergies Allergy/AdvReac Type Severity Reaction Status Date / Time No Known Allergies Allergy Verified 07/21/18 12:21 - Medications Medications: Current Medications Acetaminophen (Tylenol 325mg Tab) 650 mg PO Q6H PRN PRN Reason: Pain, Mild (1-3) Last Admin: 10/02/18 11:21 Dose: 650 mg Aspirin (Ecotrin) 81 mg PO DAILY [facility] Last Admin: 10/05/18 10:27 Dose: Not Given Calcium Acetate (Phoslo) 667 mg PO TIDCC [facility] Last Admin: 10/05/18 08:00 Dose: Not Given Carvedilol (Coreg) 25 mg PO BID [facility] Epoetin Dedrick (Procrit) 10,000 unit IV TTS [facility] Last Admin: 10/04/18 10:08 Dose: 10,000 unit Heparin Sodium (Porcine) (Heparin) 5,000 units SC Q12 [facility] Last Admin: 10/04/18 22:17 Dose: 5,000 units Hydralazine HCl (Apresoline) 50 mg PO BID [facility] Last Admin: 10/05/18 10:26 Dose: Not Given Hydrocortisone (Cortef) 5 mg PO DAILY [facility] Last Admin: 10/05/18 10:11 Dose: 5 mg Ferric Sodium Gluconate Complex 125 mg/ Sodium Chloride 110 mls @ 110 mls/hr IVPB DAILY [facility] Stop: 10/14/18 10:01 Insulin Detemir (Levemir) 20 unit SC [facility] Last Admin: 10/04/18 22:20 Dose: Not Given Insulin Human Regular (Novolin R) 0 unit SC [facility]; Protocol Last Admin: 10/05/18 07:36 Dose: Not Given Isosorbide Mononitrate (Imdur Er) 30 mg PO DAILY [facility] Last Admin: 10/05/18 10:11 Dose: 30 mg Levothyroxine Sodium (Synthroid) 50 mcg PO 0600 [facility] Last Admin: 10/05/18 06:23 Dose: 50 mcg Pantoprazole Sodium (Protonix Inj) 40 mg IVP DAILY [facility] Last Admin: 10/05/18 10:28 Dose: 40 mg Rosuvastatin Calcium (Crestor) 10 mg PO [facility] Last Admin: 10/04/18 22:17 Dose: 10 mg Physical Exam - Constitutional Additional comments: AMS - Head Exam Head Exam: NORMAL INSPECTION, NORMOCEPHALIC - Eye Exam Eye Exam: absent: Nystagmus, PERRL, Scleral icterus - ENT Exam ENT Exam: Mucous Membranes Moist - Neck Exam Additional comments: shiley in right side of neck - Respiratory Exam Respiratory Exam: Clear to Auscultation Bilateral, NORMAL BREATHING PATTERN. absent: Rhonchi, Wheezes Additional comments: Intubated with ET tube - Cardiovascular Exam Cardiovascular Exam: Bradycardia, REGULAR RHYTHM, +S1, +S2. absent: Irregular Rhythm - GI/Abdominal Exam GI & Abdominal Exam: Normal Bowel Sounds, Soft. absent: Diminished Bowel Sounds, Distended, Firm, Guarding - Extremities Exam Extremities exam: Positive for: normal inspection. Negative for: calf t enderness, pedal edema - Neurological Exam Additional comments: AMS, not alert awake or oriented - Skin Skin Exam: Intact, Normal Color Results - Vital Signs Recent Vital Signs: Last Vital Signs Temp 98.2 F 10/05/18 13:00 Pulse 55 L 10/05/18 13:00 Resp 14 10/05/18 13:00 BP 125/59 L 10/05/18 13:00 Pulse Ox 99 10/05/18 13:00 - Labs Result Diagrams: 10/05/18 06:06 10/05/18 06:06 Labs: Laboratory Results - last 24 hr 10/04/18 10/04/18 10/04/18 10:23 16:09 21:06 WBC RBC Hgb Hct MCV MCH MCHC RDW Plt Count MPV PT INR APTT Sodium Potassium Chloride Carbon Dioxide Anion Gap BUN Creatinine Est GFR ( Amer) Est GFR (Non-Af Amer) POC Glucose (mg/dL) 221 H 163 H Random Glucose Calcium PTH Intact Whole Molec 411 H Blood Type Antibody Screen 10/05/18 10/05/18 10/05/18 06:06 06:06 06:06 WBC 7.2 RBC 3.50 L Hgb 9.5 L Hct 30.1 L MCV 85.8 MCH 27.1 MCHC 31.6 L RDW 14.3 Plt Count 105 L MPV 10.0 PT 12.6 H INR 1.2 APTT 34 Sodium 133 Potassium 4.0 Chloride 96 L Carbon Dioxide 29 Anion Gap 12 BUN 15 Creatinine 2.4 H Est GFR ( Amer) 24 Est GFR (Non-Af Amer) 20 POC Glucose (mg/dL) Random Glucose 128 H D Calcium 8.3 L PTH Intact Whole Molec Blood Type Antibody Screen 10/05/18 10/05/18 10/05/18 06:09 07:38 11:17 WBC RBC Hgb Hct MCV MCH MCHC RDW Plt Count MPV PT INR APTT Sodium Potassium Chloride Carbon Dioxide Anion Gap BUN Creatinine Est GFR ( Amer) Est GFR (Non-Af Amer) POC Glucose (mg/dL) 139 H 148 H Random Glucose Calcium PTH Intact Whole Molec Blood Type O POSITIVE Antibody Screen Negative 10/05/18 14:11 WBC RBC Hgb Hct MCV MCH MCHC RDW Plt Count MPV PT INR APTT Sodium Potassium Chloride Carbon Dioxide Anion Gap BUN Creatinine Est GFR ( Amer) Est GFR (Non-Af Amer) POC Glucose (mg/dL) 204 H Random Glucose Calcium PTH Intact Whole Molec Blood Type Antibody Screen Assessment & Plan - Assessment and Plan (Free Text) Assessment: Patient is a 72 yo female w/ PMH of DM2, HTN, CKD 5, CHF, CAD post stent, pituitary adenoma admitted for cardiac arrest during AVF placement and catheter. Patient was intubated by anasthesia team en route Neuro non responsive to verbal or painful stimuli- possible AMS from sedation meds Was given fentanyl and versed during procedure CT head pending Pulm Intubated with ET tube (14,450,100%,5) maintain spo2> 92% ABG pending CV Troponin pending s/p cardiac arrest EKG showed sinus bradycardia with first degree heart block Aspirin daily Imdur/Hydralazine for bp management Crestor Code Freeze initiated at 4:35 pm Endo Synthroid Levemir Hydrocortisone GI No active issues Protonix Renal Phoslo EPO Ferrlecit MWF dialysis through shiley Catheter placement and fistula placement DVT ppx: heparin GI ppx: Protonix Disposition: Possible respiratory arrest due to fentanyl + versed (pending ABG) that led to cardiac arrest (pending trops). Intubated and on vent. Pending trops and blood work PGY-1 Michelle Diane Medical Management d/w Dr. Ríos <Eliseo Ríos S - Last Filed: 10/05/18 18:58> Meds - Medications Medications: Current Medications Acetaminophen (Tylenol 325mg Tab) 650 mg PO Q6H PRN PRN Reason: Pain, Mild (1-3) Last Admin: 10/02/18 11:21 Dose: 650 mg Aspirin (Ecotrin) 81 mg PO DAILY [facility] Last Admin: 10/05/18 10:27 Dose: Not Given Calcium Acetate (Phoslo) 667 mg PO TIDCC [facility] Last Admin: 10/05/18 08:00 Dose: Not Given Carvedilol (Coreg) 25 mg PO BID [facility] Epoetin Dedrick (Procrit) 10,000 unit IV TTS [facility] Last Admin: 10/04/18 10:08 Dose: 10,000 unit Heparin Sodium (Porcine) (Heparin) 5,000 units SC Q12 [facility] Last Admin: 10/04/18 22:17 Dose: 5,000 units Hydralazine HCl (Apresoline) 50 mg PO BID [facility] Last Admin: 10/05/18 10:26 Dose: Not Given Hydrocortisone (Cortef) 5 mg PO DAILY [facility] Last Admin: 10/05/18 10:11 Dose: 5 mg Ferric Sodium Gluconate Complex 125 mg/ Sodium Chloride 110 mls @ 110 mls/hr IVPB DAILY [facility] Stop: 10/14/18 10:01 Insulin Detemir (Levemir) 20 unit SC [facility] Last Admin: 10/04/18 22:20 Dose: Not Given Insulin Human Regular (Novolin R) 0 unit SC ACHS [facility]; Protocol Last Admin: 10/05/18 07:36 Dose: Not Given Isosorbide Mononitrate (Imdur Er) 30 mg PO DAILY [facility] Last Admin: 10/05/18 10:11 Dose: 30 mg Levothyroxine Sodium (Synthroid) 50 mcg PO 0600 [facility] Last Admin: 10/05/18 06:23 Dose: 50 mcg Pantoprazole Sodium (Protonix Inj) 40 mg IVP DAILY [facility] Last Admin: 10/05/18 10:28 Dose: 40 mg Propofol (Diprivan) 100 mg IV TITR [facility] Rosuvastatin Calcium (Crestor) 10 mg PO [facility] Last Admin: 10/04/18 22:17 Dose: 10 mg Results - Vital Signs Recent Vital Signs: Last Vital Signs Temp 97 F L 10/05/18 18:08 Pulse 84 10/05/18 18:08 Resp 19 10/05/18 18:08 BP 180/90 H 10/05/18 18:08 Pulse Ox 100 10/05/18 18:00 - Labs Result Diagrams: 10/05/18 17:26 10/05/18 17:26 Labs: Laboratory Results - last 24 hr 10/04/18 10/04/18 10/05/18 10:23 21:06 06:06 WBC 7.2 RBC 3.50 L Hgb 9.5 L Hct 30.1 L MCV 85.8 MCH 27.1 MCHC 31.6 L RDW 14.3 Plt Count 105 L MPV 10.0 Neut % (Auto) Lymph % (Auto) [place] % (Auto) Eos % (Auto) Baso % (Auto) Neut # (Auto) Lymph # (Auto) [place] # (Auto) Eos # (Auto) Baso # (Auto) PT INR APTT Puncture Site pCO2 pO2 HCO3 ABG pH ABG Total CO2 ABG O2 Saturation ABG Base Excess Jimenez Test ABG Potassium A-a O2 Difference Respiratory Index Glucose Lactate Vent Mode Mechanical Rate FiO2 Tidal Volume PEEP Sodium Potassium Chloride Carbon Dioxide Anion Gap BUN Creatinine Est GFR ( Amer) Est GFR (Non-Af Amer) POC Glucose (mg/dL) 163 H Random Glucose Calcium Phosphorus Magnesium Total Bilirubin AST ALT Alkaline Phosphatase Troponin I Total Protein Albumin Globulin Albumin/Globulin Ratio PTH Intact Whole Molec 411 H Arterial Blood Potassium Blood Type Antibody Screen 10/05/18 10/05/18 10/05/18 06:06 06:06 06:09 WBC RBC Hgb Hct MCV MCH MCHC RDW Plt Count MPV Neut % (Auto) Lymph % (Auto) [place] % (Auto) Eos % (Auto) Baso % (Auto) Neut # (Auto) Lymph # (Auto) [place] # (Auto) Eos # (Auto) Baso # (Auto) PT 12.6 H INR 1.2 APTT 34 Puncture Site pCO2 pO2 HCO3 ABG pH ABG Total CO2 ABG O2 Saturation ABG Base Excess Jimenez Test ABG Potassium A-a O2 Difference Respiratory Index Glucose Lactate Vent Mode Mechanical Rate FiO2 Tidal Volume PEEP Sodium 133 Potassium 4.0 Chloride 96 L Carbon Dioxide 29 Anion Gap 12 BUN 15 Creatinine 2.4 H Est GFR ( Amer) 24 Est GFR (Non-Af Amer) 20 POC Glucose (mg/dL) Random Glucose 128 H D Calcium 8.3 L Phosphorus Magnesium Total Bilirubin AST ALT Alkaline Phosphatase Troponin I Total Protein Albumin Globulin Albumin/Globulin Ratio PTH Intact Whole Molec Arterial Blood Potassium Blood Type O POSITIVE Antibody Screen Negative 10/05/18 10/05/18 10/05/18 07:38 11:17 14:11 WBC RBC Hgb Hct MCV MCH MCHC RDW Plt Count MPV Neut % (Auto) Lymph % (Auto) [place] % (Auto) Eos % (Auto) Baso % (Auto) Neut # (Auto) Lymph # (Auto) [place] # (Auto) Eos # (Auto) Baso # (Auto) PT INR APTT Puncture Site pCO2 pO2 HCO3 ABG pH ABG Total CO2 ABG O2 Saturation ABG Base Excess Jimenez Test ABG Potassium A-a O2 Difference Respiratory Index Glucose Lactate Vent Mode Mechanical Rate FiO2 Tidal Volume PEEP Sodium Potassium Chloride Carbon Dioxide Anion Gap BUN Creatinine Est GFR ( Amer) Est GFR (Non-Af Amer) POC Glucose (mg/dL) 139 H 148 H 204 H Random Glucose Calcium Phosphorus Magnesium Total Bilirubin AST ALT Alkaline Phosphatase Troponin I Total Protein Albumin Globulin Albumin/Globulin Ratio PTH Intact Whole Molec Arterial Blood Potassium Blood Type Antibody Screen 10/05/18 10/05/18 10/05/18 16:26 16:31 17:26 WBC 9.4 RBC 3.38 L Hgb 9.0 L Hct 28.8 L MCV 85.3 MCH 26.6 L MCHC 31.1 L RDW 14.4 Plt Count 121 L MPV 10.1 Neut % (Auto) 68.6 Lymph % (Auto) 13.4 L [place] % (Auto) 8.5 Eos % (Auto) 9.1 H Baso % (Auto) 0.4 Neut # (Auto) 6.4 Lymph # (Auto) 1.3 [place] # (Auto) 0.8 Eos # (Auto) 0.9 H Baso # (Auto) 0.0 PT INR APTT Puncture Site Rr pCO2 52 H pO2 391 H HCO3 28.4 H ABG pH 7.38 ABG Total CO2 32.4 H ABG O2 Saturation 99.2 H ABG Base Excess 4.4 H Jimenez Test Unable ABG Potassium 3.3 L A-a O2 Difference 257.0 Respiratory Index 0.7 Glucose 192 H Lactate 1.1 Vent Mode Prvc Mechanical Rate 14 FiO2 100.0 Tidal Volume 450 PEEP 5 Sodium 136.0 Potassium Chloride 105.0 Carbon Dioxide Anion Gap BUN Creatinine Est GFR ( Amer) Est GFR (Non-Af Amer) POC Glucose (mg/dL) 200 H Random Glucose Calcium Phosphorus Magnesium Total Bilirubin AST ALT Alkaline Phosphatase Troponin I Total Protein Albumin Globulin Albumin/Globulin Ratio PTH Intact Whole Molec Arterial Blood Potassium 3.3 L Blood Type Antibody Screen 10/05/18 10/05/18 17:26 17:26 WBC RBC Hgb Hct MCV MCH MCHC RDW Plt Count MPV Neut % (Auto) Lymph % (Auto) [place] % (Auto) Eos % (Auto) Baso % (Auto) Neut # (Auto) Lymph # (Auto) [place] # (Auto) Eos # (Auto) Baso # (Auto) PT 13.0 H INR 1.2 APTT 38 H Puncture Site pCO2 pO2 HCO3 ABG pH ABG Total CO2 ABG O2 Saturation ABG Base Excess Jimenez Test ABG Potassium A-a O2 Difference Respiratory Index Glucose Lactate Vent Mode Mechanical Rate FiO2 Tidal Volume PEEP Sodium 134 Potassium 3.6 Chloride 98 Carbon Dioxide 28 Anion Gap 11 BUN 17 Creatinine 3.3 H Est GFR ( Amer) 17 Est GFR (Non-Af Amer) 14 POC Glucose (mg/dL) Random Glucose 198 H D Calcium 8.2 L Phosphorus 2.8 Magnesium 1.6 Total Bilirubin 0.4 AST 155 H D ALT 108 H D Alkaline Phosphatase 96 Troponin I 0.0400 Total Protein 5.5 L Albumin 3.1 L Globulin 2.4 Albumin/Globulin Ratio 1.3 PTH Intact Whole Molec Arterial Blood Potassium Blood Type Antibody Screen Attending/Attestation - Attestation I have personally seen and examined this patient.: Yes I have fully participated in the care of the patient.: Yes I have reviewed all pertinent clinical information: Yes Notes (Text): 10/05/18 18:56 patient seen and examined Case discussed with house staff Intubated on ventilatory support code freeze Triple-lumen catheter was inserted right femoral vein Neurology evaluation
[2018-10-05 16:28] LABS: ABG ALLEN TEST UNABLE; ARTERIAL BLOOD GAS HCO3 28.4 mmol/L (21-28); ARTERIAL BLOOD GAS O2 SAT 99.2 % (95-98); ARTERIAL BLOOD GAS PCO2 52 mm/Hg (35-45); ARTERIAL BLOOD GAS PH 7.38 (7.35-7.45); ARTERIAL BLOOD GAS PO2 391 mm/Hg (80-100); ARTERIAL BLOOD GAS TCO2 32.4 mmol/L (22-28)
--- NOTE | 2018-10-05 16:36 | CP.PCM.PCO ---
Physician Communication Note - Physician Communication Note Physician Communication Note: see above
[2018-10-05 17:34] LABS: BASO % 0.4 % (0.0-2.0); EOS # 0.9 K/uL (0.0-0.7); EOS % 9.1 % (0.0-4.0); LYMPH # 1.3 K/uL (1.0-4.3); LYMPH % 13.4 % (20.0-40.0); MEAN CELL VOLUME 85.3 fL (81.0-99.0); MEAN CORPUSCULAR HEMOGLOBIN 26.6 pg (27.0-31.0); MEAN CORPUSCULAR HGB CONC 31.1 g/dL (33.0-37.0); MEAN PLATELET VOLUME 10.1 fL (7.2-11.7); MONO # 0.8 K/uL (0.0-0.8); MONO % 8.5 % (0.0-10.0); NEUT # 6.4 K/uL (1.8-7.0); NEUT % 68.6 % (50.0-75.0); RBC 3.38 Mil/uL (3.80-5.20); RED CELL DISTRIBUTION WIDTH 14.4 % (11.5-14.5); WHITE BLOOD COUNT 9.4 K/uL (4.8-10.8)
[2018-10-05 17:42] LABS: INR 1.2
[2018-10-05 17:54] LABS: TROPONIN I 0.04 ng/mL (0.00-0.120)
[2018-10-05 17:56] LABS: ALB/GLOB RATIO 1.3 (1.0-2.1); ALBUMIN 3.1 g/dL (3.5-5.0); CALCIUM 8.2 mg/dl (8.6-10.4)
[2018-10-05] MEDS ORDERED: Propofol 10 mg/ml Inj (100 ml) IV SCH (18:00)
[2018-10-05] MEDS ORDERED: Labetalol 5mg/ml (4ml) IVP ONE (20:47)
[2018-10-05] MEDS: Insulin Detemir 100 units/ml Vial (Levemir) SC SCH (22:00)
--- NOTE | 2018-10-05 22:03 | CP.PCM.PCO ---
Additional Comments - Additional Comments Additional Comments: Today, patient was taken to the operating room for scheduled replacement of R IJ shiley with permacath and possible creation of left arm AVF. Patient was placed on the operating room table in the supine position. A right upper extremity 24g IV was started by the anesthesia team. Patient was given 50mcg of fentanyl to prepare for the initiation of induction of general anesthesia. It was noted by the anesthesia team that she had an episode of generalized shaking which lasted 2-3 seconds and then the patient became apenic and unresponsive. Patient was immediately bagged for oxygenation. She was noted to then become progressively bradycardic and hypotensive (88/60) and then she became pulseless. ACLS was initiated and 1 dose of epinephrine was given and 2 of atropine given. ROSC was achieved after approximately 5 mins of chest compressions. Patient was intubated during CPR for definitive airway control by the anesthesia team. Patient was given a dose of versed by the anesthesia team for possible seizure-like activity. The surgery was cancelled prior to initiation. No time-out was performed and no surgical incisions were made. Patient was taken to the ICU with stable vital signs within normal limits. Plan: - Continue to use R IJ shiley as needed for HD - We will defer surgery until the patient is appropriately optimized and stabilized - Continue ICU management
[2018-10-06 01:37] LABS: EOS # 0.5 K/uL (0.0-0.7); LYMPH # 0.9 K/uL (1.0-4.3); RED CELL DISTRIBUTION WIDTH 14.6 % (11.5-14.5)
[2018-10-06 01:45] LABS: BASO % 0.4 % (0.0-2.0); HEMOGLOBIN 10.2 g/dL (11.0-16.0); LYMPH % 7.2 % (20.0-40.0); MEAN CELL VOLUME 86.2 fL (81.0-99.0); MEAN CORPUSCULAR HGB CONC 31.4 g/dL (33.0-37.0); MEAN PLATELET VOLUME 10.5 fL (7.2-11.7); MONO # 1.1 K/uL (0.0-0.8); MONO % 8.6 % (0.0-10.0); NEUT # 9.9 K/uL (1.8-7.0); NEUT % 79.8 % (50.0-75.0); PLATELET COUNT 125 K/uL (130-400); RBC 3.78 Mil/uL (3.80-5.20); WHITE BLOOD COUNT 12.5 K/uL (4.8-10.8)
[2018-10-06 01:46] LABS: INR 1.2
[2018-10-06 01:50] LABS: CALCIUM 8.1 mg/dl (8.6-10.4); SQUAMOUS EPITHIAL 2 /hpf (0-5); URINE BACTERIA MANY (<OCC); URINE BILIRUBIN NEGATIVE (NEGATIVE); URINE BLOOD NEGATIVE (NEGATIVE); URINE CLARITY Turbid (Clear); URINE COLOR Yellow (YELLOW); URINE GLUCOSE (UA) 1+ mg/dL (Normal); URINE LEUKOCYTE ESTERASE 3+ Leu/uL (Negative); URINE PROTEIN 3+ mg/dL (NEGATIVE); URINE UROBILINOGEN NORMAL mg/dL (0.2-1.0); WBC CLUMPS MANY /hpf
[2018-10-06 02:20] LABS: BARBITURATES, UR NEGATIVE (NEGATIVE); BENZODIAZEPINES, UR NEGATIVE (NEGATIVE); OPIATES, UR NEGATIVE (NEGATIVE); PHENCYCLIDINE, UR NEGATIVE (NEGATIVE)
[2018-10-06 04:31] LABS: BANDS 2 % (0-2); LYMPHOCYTE 6 % (20-40); MONOCYTE 9 % (0-10); NEUTROPHIL 83 % (50-75); TOTAL CELLS COUNTED 100
[2018-10-06 04:32] LABS: PLATELET ESTIMATE SLIGHTLY DECREASED (NORMAL)
[2018-10-06 05:01] LABS: ABG ALLEN TEST POS; ARTERIAL BLOOD GAS HCO3 24.2 mmol/L (21-28); ARTERIAL BLOOD GAS O2 SAT 99.2 % (95-98); ARTERIAL BLOOD GAS PCO2 57 mm/Hg (35-45); ARTERIAL BLOOD GAS PH 7.28 (7.35-7.45); ARTERIAL BLOOD GAS PO2 193 mm/Hg (80-100); ARTERIAL BLOOD GAS TCO2 28.5 mmol/L (22-28)
[2018-10-06 06:00] LABS: BASO # 0.1 K/uL (0.0-0.2); BASO % 0.5 % (0.0-2.0); EOS # 0.6 K/uL (0.0-0.7); EOS % 4.2 % (0.0-4.0); HEMOGLOBIN 10.7 g/dL (11.0-16.0); LYMPH # 1.1 K/uL (1.0-4.3); LYMPH % 8.6 % (20.0-40.0); MEAN CELL VOLUME 85.2 fL (81.0-99.0); MEAN CORPUSCULAR HEMOGLOBIN 26.6 pg (27.0-31.0); MEAN CORPUSCULAR HGB CONC 31.2 g/dL (33.0-37.0); MEAN PLATELET VOLUME 9.8 fL (7.2-11.7); MONO % 7.8 % (0.0-10.0); NEUT # 10.4 K/uL (1.8-7.0); NEUT % 78.9 % (50.0-75.0); NRBC % 0.1 % (0.0-2.0); PLATELET COUNT 138 K/uL (130-400); RBC 4.01 Mil/uL (3.80-5.20); RED CELL DISTRIBUTION WIDTH 14.6 % (11.5-14.5); WHITE BLOOD COUNT 13.2 K/uL (4.8-10.8)
[2018-10-06] MEDS: Propofol 10 mg/ml 1,000 MG/100 ML VIAL IV PRN ×2 (06:00)
[2018-10-06 06:04] LABS: INR 1.2; PROTHROMBIN TIME 12.8 SECONDS (9.7-12.2)
[2018-10-06 06:23] LABS: ALB/GLOB RATIO 1.3 (1.0-2.1); ALBUMIN 3.6 g/dL (3.5-5.0); CALCIUM 8.4 mg/dl (8.6-10.4)
[2018-10-06] MEDS: Levothyroxine 50 MCG TAB PO SCH (06:58)
[2018-10-06 08:08] LABS: BANDS 5 % (0-2); EOSINOPHIL 3 % (0-4); LYMPHOCYTE 9 % (20-40); MONOCYTE 10 % (0-10); NEUTROPHIL 73 % (50-75); PLATELET ESTIMATE NORMAL (NORMAL); TOTAL CELLS COUNTED 100
[2018-10-06 08:09] LABS: LARGE PLATELETS PRESENT; OVALOCYTES SLIGHT
--- NOTE | 2018-10-06 09:48 | RAD ---
HISTORY: intubated COMPARISON: Chest x-ray performed 10/05/18 TECHNIQUE: Chest, one view. FINDINGS: Endotracheal tube terminates approximately 3.9 cm above the kaylah. Right-sided IJ approach central venous catheter extends the cavoatrial junction. LUNGS: Moderate pulmonary venous congestion. PLEURA: No significant pleural effusion identified. No definite pneumothorax . CARDIOVASCULAR: Cardiomegaly. Atherosclerotic calcifications of the aorta. OSSEOUS STRUCTURES: Degenerative changes. VISUALIZED UPPER ABDOMEN: Elevated right hemidiaphragm. OTHER FINDINGS: None. IMPRESSION: Endotracheal tube terminates approximately 3.9 cm above the kaylah. Right-sided IJ approach central venous catheter extends the cavoatrial junction. Moderate pulmonary venous congestion. Cardiomegaly.
--- NOTE | 2018-10-06 09:58 | CP.PCM.PN ---
Subjective - Date & Time of Evaluation Date of Evaluation: 10/06/18 Time of Evaluation: 09:56 - Subjective Subjective: Patient is a 72 yo female w/ PMH of DM2, HTN, CKD 5, CHF, CAD post stent, pituitary adenoma admitted to ICU s/p cardiac arrest in surgery for attempted catheter placement and AVF placement. Patient received fentanyl and then it was noticed that patient had a jerking like motion suggestive of seizure. Patient was given a dose of versed for possible seizure activity. Patient became pulseless and ACLS protocol was initiated with ROSC achieved. Patient was intubated by surgical/anasthesia team and brought to ICU. PMH- DM2, HTN, CKD 5, CHF, CAD post stent, pituitary adenoma PSH- Coronary stents, Pituitary macroadenoma surgery, Hysterectomy NKDA Meds as per orders Social- limited as patient is intubated 10/06 Notes reviewed Discussed with ICU team at bedside S/p cardiac arrest Cooling protocol in progress Remains unresponsive on vent Discussed care with family at bedside Unresponsive Unable to obtain ROS due to ams Objective - Vital Signs/Intake and Output Vital Signs (last 24 hours): Temp Pulse Resp BP Pulse Ox 92.7 F L 60 18 160/75 H 100 10/06/18 09:20 10/06/18 09:20 10/06/18 09:13 10/06/18 09:20 10/06/18 09:00 Intake and Output: 10/06/18 10/06/18 06:59 18:59 Intake Total 354.9 22.4 Output Total 78 10 Balance 276.9 12.4 - Medications Medications: Current Medications Acetaminophen (Tylenol 325mg Tab) 650 mg PO Q6H PRN PRN Reason: Pain, Mild (1-3) Last Admin: 10/02/18 11:21 Dose: 650 mg Aspirin (Ecotrin) 81 mg PO DAILY [facility] Last Admin: 10/05/18 10:27 Dose: Not Given Calcium Acetate (Phoslo) 667 mg PO TIDCC [facility] Last Admin: 10/06/18 09:26 Dose: Not Given Carvedilol (Coreg) 25 mg PO BID [facility] Epoetin Dedrick (Procrit) 10,000 unit IV TTS [facility] Last Admin: 10/04/18 10:08 Dose: 10,000 unit Heparin Sodium (Porcine) (Heparin) 5,000 units SC Q12 [facility] Last Admin: 10/05/18 22:00 Dose: 5,000 units Hydralazine HCl (Apresoline) 50 mg PO BID [facility] Last Admin: 10/05/18 18:00 Dose: Not Given Hydrocortisone (Cortef) 5 mg PO DAILY [facility] Last Admin: 10/05/18 10:11 Dose: 5 mg Ferric Sodium Gluconate Complex 125 mg/ Sodium Chloride 110 mls @ 110 mls/hr IVPB DAILY [facility] Stop: 10/14/18 10:01 Propofol (Diprivan) 1,000 mg in 100 mls @ 2.735 mls/hr IV .Q24H PRN; Protocol PRN Reason: TITRATE PER MD ORDER Last Admin: 10/06/18 06:00 Dose: 20.47 mcg/kg/min, 11.2 mls/hr Insulin Detemir (Levemir) 20 unit SC [facility] Last Admin: 10/05/18 22:00 Dose: 20 units Insulin Human Regular (Novolin R) 0 unit SC Q6H [facility]; Protocol Isosorbide Mononitrate (Imdur Er) 30 mg PO DAILY [facility] Last Admin: 10/05/18 10:11 Dose: 30 mg Levothyroxine Sodium (Synthroid) 50 mcg PO 0600 [facility] Last Admin: 10/06/18 06:58 Dose: 50 mcg Pantoprazole Sodium (Protonix Inj) 40 mg IVP DAILY [facility] Last Admin: 10/05/18 10:28 Dose: 40 mg Propofol (Diprivan) 100 mg IV TITR JOCELYN Rosuvastatin Calcium (Crestor) 10 mg PO [facility] Last Admin: 10/05/18 23:38 Dose: 10 mg - Labs Labs: 10/06/18 05:49 10/06/18 05:49 PT 12.8 SECONDS (9.7-12.2) H 10/06/18 05:49 INR 1.2 10/06/18 05:49 APTT 42 SECONDS (21-34) H 10/06/18 05:49 - Constitutional Appears: Toxic, Chronically Ill - ENT Exam ENT Exam: Mucous Membranes Moist Additional comments: et tube in place - Neck Exam Neck Exam: absent: Lymphadenopathy, Thyromegaly - Respiratory Exam Respiratory Exam: Rhonchi. absent: Rales - Cardiovascular Exam Cardiovascular Exam: +S1, +S2. absent: Rubs - GI/Abdominal Exam GI & Abdominal Exam: Soft, Normal Bowel Sounds - Extremities Exam Extremities Exam: Pedal Edema. absent: Joint Swelling - Neurological Exam Neurological Exam: Altered - Skin Skin Exam: Dry, Intact Assessment and Plan - Assessment and Plan (Free Text) Assessment: JENNIFER CKD Dialysis dependent Respiratory failure S/p Cardiac arrest CHF DM Anemia Hold dialysis today for cardiac arrest and code chill Await rewarming before dialysis Electrolytes acceptable Cxr reviewed with icu team, volume status unchanged Will need to evaluate neuro status before further dialysis Care reviewed with family Continue current treatment Dialysis unit contacted - hold hd today, to conside rdialysis 10/07 as needed
--- NOTE | 2018-10-06 09:58 | CP.CCUPN ---
CCU Subjective - Physician Review Events Since Last Encounter (Free Text): 10/06/18 09:55 Sustained a cardiac arrest yesterday while patient was trying to get a permacath. Since last night the patient is on hypothermia therapeutically. Patient now is on ventilator. Not responding. On sedation also. Generalized edema noted. Full support ventilation. On examination: Chest bilateral good air entry, minimal expiratory wheezing noted. Regular heart sounds. Obesity in the abdomen noted, edema in the legs noted. Patient also has episodes of tachyarrhythmias. At this time neurological status is unclear Labs reviewed ABG reviewed Also x-ray of the lungs revealed Assessment and recognition: 72-year-old female admitted initially with uremia, respiratory insufficiency, CPAP for obesity hypoventilation. Diabetes hypertension high cholesterol diabetic complicated nephropathy. Patient now admitted to the intensive care unit with a cardiac arrest. Cardiac arrest most likely respiratory cause likely but unclear Currently on hypothermia blanket. Neurological status unclear. We will get a cardiology, neurological evaluation. CT scan head will be repeated tonight. Overall prognosis very poor. I spoke to the patient's family in detail we will follow the patient Critical Care Time Spent (in minutes): 45 CCU Objective - Vital Signs / Intake & Output Vital Signs (Last 4 hours): Vital Signs Temp Pulse Resp BP Pulse Ox 10/06/18 09:20 92.7 F L 60 160/75 H 10/06/18 09:00 89.2 F L 66 17 161/115 H 100 10/06/18 08:45 89.2 F L 64 16 91/64 L 100 10/06/18 08:29 89.1 F L 64 14 102/72 100 10/06/18 08:17 89.2 F L 64 16 120/68 100 10/06/18 08:00 92.5 F L 58 L 18 121/90 100 10/06/18 07:59 89.8 F L 60 16 109/82 100 10/06/18 07:26 90.3 F L 61 15 95/59 L 100 10/06/18 07:12 90.1 F L 63 14 98/59 L 100 10/06/18 07:00 92.7 F L 60 18 160/71 H 100 10/06/18 06:26 89.4 F L 67 14 100 10/06/18 06:00 89.1 F L 67 12 129/73 100 Intake and Output (Last 8hrs): Intake & Output 10/05/18 10/06/18 10/06/18 22:59 06:59 14:59 Intake Total 83.5 288.1 22.4 Output Total 26 60 10 Balance 57.5 228.1 12.4 Intake: IV 100 Intake, IV Amount 83.5 128.1 22.4 Right Proximal Port 83.5 128.1 22.4 Femoral Oral 0 0 0 Other 60 Output: Urine 26 60 10 Urethral (Rodriguez) 26 60 10 Other: # Bowel Movements 0 0 0 - Medications Active Medications: Active Medications Generic Name Dose Route Start Last Admin Trade Name Freq PRN Reason Stop Dose Admin Acetaminophen 650 mg 09/29/18 08:30 10/02/18 11:21 Tylenol 325mg Tab PO 650 mg Q6H PRN Administration Pain, Mild (1-3) Aspirin 81 mg 09/29/18 10:00 10/05/18 10:27 Ecotrin PO Not Given DAILY [facility] Calcium Acetate 667 mg 10/04/18 08:45 10/06/18 09:26 Phoslo PO Not Given TIDCC [facility] Carvedilol 25 mg 09/30/18 17:27 Coreg PO BID [facility] Epoetin Dedrick 10,000 unit 10/04/18 10:00 10/04/18 10:08 Procrit IV 10,000 unit TTS JOCELYN Administration Heparin Sodium (Porcine) 5,000 units 09/29/18 10:00 10/05/18 22:00 Heparin SC 5,000 units Q12 JOCELYN Administration Hydralazine HCl 50 mg 10/02/18 10:00 10/05/18 18:00 Apresoline PO Not Given BID JOCELYN Hydrocortisone 5 mg 09/29/18 10:00 10/05/18 10:11 Cortef PO 5 mg DAILY JOCELYN Administration Ferric Sodium Gluconate 110 mls @ 110 mls/hr 10/06/18 10:00 Complex 125 mg/ Sodium IVPB 10/14/18 10:01 Chloride DAILY JOCELYN Propofol 1,000 mg in 100 mls @ 2.735 mls/hr 10/06/18 00:22 10/06/18 06:00 Diprivan IV 20.47 mcg/kg/min .Q24H PRN 11.2 mls/hr TITRATE PER MD ORDER Administration Protocol 5 MCG/KG/MIN Insulin Detemir 20 unit 12/29/18 22:00 10/05/18 22:00 Levemir SC 20 units HS JOCELYN Administration Insulin Human Regular 0 unit 10/06/18 12:00 Novolin R SC Q6H [facility] Protocol Isosorbide Mononitrate 30 mg 09/29/18 17:11 10/05/18 10:11 Imdur Er PO 30 mg DAILY JOCELYN Administration Levothyroxine Sodium 50 mcg 09/29/18 08:00 10/06/18 06:58 Synthroid PO 50 mcg 0600 JOCELYN Administration Pantoprazole Sodium 40 mg 09/29/18 10:00 10/05/18 10:28 Protonix Inj IVP 40 mg DAILY JOCELYN Administration Propofol 100 mg 10/05/18 18:00 Diprivan IV TITR JOCELYN Rosuvastatin Calcium 10 mg 09/30/18 22:00 10/05/18 23:38 Crestor PO 10 mg HS JOCELYN Administration - Patient Studies Lab Studies: Lab Studies 10/06/18 10/06/18 10/06/18 Range/Units 06:32 05:49 05:49 WBC (4.8-10.8) K/uL RBC (3.80-5.20) Mil/uL Hgb (11.0-16.0) g/dL Hct (34.0-47.0) % MCV (81.0-99.0) fL MCH (27.0-31.0) pg MCHC (33.0-37.0) g/dL RDW (11.5-14.5) % Plt Count (130-400) K/uL MPV (7.2-11.7) fL Neut % (Auto) (50.0-75.0) % Lymph % (Auto) (20.0-40.0) % [place] % (Auto) (0.0-10.0) % Eos % (Auto) (0.0-4.0) % Baso % (Auto) (0.0-2.0) % Neut # (Auto) (1.8-7.0) K/uL Lymph # (Auto) (1.0-4.3) K/uL [place] # (Auto) (0.0-0.8) K/uL Eos # (Auto) (0.0-0.7) K/uL Baso # (Auto) (0.0-0.2) K/uL Neutrophils % (Manual) (50-75) % Band Neutrophils % (0-2) % Lymphocytes % (Manual) (20-40) % Monocytes % (Manual) (0-10) % Eosinophils % (Manual) (0-4) % Platelet Estimate (NORMAL) Large Platelets Basophilic Stippling Ovalocytes PT 12.8 H (9.7-12.2) SECONDS INR 1.2 APTT 42 H (21-34) SECONDS Puncture Site pCO2 (35-45) mm/Hg pO2 (80-100) mm/Hg HCO3 (21-28) mmol/L ABG pH (7.35-7.45) ABG Total CO2 (22-28) mmol/L ABG O2 Saturation (95-98) % ABG Base Excess (-2.0-3.0) mmol/L Jimenez Test ABG Potassium (3.6-5.2) mmol/L A-a O2 Difference mm/Hg Respiratory Index Sodium 134 (132-148) mmol/l Chloride 96 L (98-107) mmol/L Glucose (65-105) mg/dl Lactate (0.7-2.1) mmol/L Vent Mode Mechanical Rate FiO2 % Tidal Volume PEEP Potassium 3.9 (3.6-5.2) mmol/L Carbon Dioxide 28 (22-30) mmol/L Anion Gap 14 (10-20) BUN 21 H (7-17) mg/dL Creatinine 3.4 H (0.7-1.2) mg/dL Est GFR ( Amer) 16 Est GFR (Non-Af Amer) 13 POC Glucose (mg/dL) 168 H (65-110) mg/dL Random Glucose 162 H D (65-105) mg/dL Calcium 8.4 L (8.6-10.4) mg/dl Phosphorus 3.4 (2.5-4.5) mg/dL Magnesium 1.7 (1.6-2.3) mg/dL Total Bilirubin 0.5 (0.2-1.3) mg/dL AST 91 H D (14-36) U/L ALT 96 H (9-52) U/L Alkaline Phosphatase 114 (38-126) U/L Troponin I (0.00-0.120) ng/mL Total Protein 6.4 (6.3-8.3) g/dL Albumin 3.6 (3.5-5.0) g/dL Globulin 2.7 (2.2-3.9) gm/dL Albumin/Globulin Ratio 1.3 (1.0-2.1) PTH Intact Whole Molec (14-64) pg/mL Arterial Blood Potassium (3.6-5.2) mmol/L Urine Color (YELLOW) Urine Clarity (Clear) Urine pH (5.0-8.0) Ur Specific [place] (1.003-1.030) Urine Protein (NEGATIVE) mg/dL Urine Glucose (UA) (Normal) mg/dL Urine Ketones (NEGATIVE) mg/dL Urine Blood (NEGATIVE) Urine Nitrate (NEGATIVE) Urine Bilirubin (NEGATIVE) Urine Urobilinogen (0.2-1.0) mg/dL Ur Leukocyte Esterase (Negative) Gabe/uL Urine WBC (Auto) (0-5) /hpf Urine RBC (Auto) (0-3) /hpf Urine WBC Clumps (Auto) (NONE) /hpf Ur Squamous Epith Cells (0-5) /hpf Urine Bacteria (<OCC) Urine Opiates Screen (NEGATIVE) Urine Methadone Screen (NEGATIVE) Ur Barbiturates Screen (NEGATIVE) Ur Phencyclidine Scrn (NEGATIVE) Ur Amphetamines Screen (NEGATIVE) U Benzodiazepines Scrn (NEGATIVE) U Oth Cocaine Metabols (NEGATIVE) U Cannabinoids Screen (NEGATIVE) 10/06/18 10/06/18 10/06/18 Range/Units 05:49 05:11 04:40 WBC 13.2 H (4.8-10.8) K/uL RBC 4.01 (3.80-5.20) Mil/uL Hgb 10.7 L (11.0-16.0) g/dL Hct 34.2 (34.0-47.0) % MCV 85.2 (81.0-99.0) fL MCH 26.6 L (27.0-31.0) pg MCHC 31.2 L (33.0-37.0) g/dL RDW 14.6 H (11.5-14.5) % Plt Count 138 (130-400) K/uL MPV 9.8 (7.2-11.7) fL Neut % (Auto) 78.9 H (50.0-75.0) % Lymph % (Auto) 8.6 L (20.0-40.0) % [place] % (Auto) 7.8 (0.0-10.0) % Eos % (Auto) 4.2 H (0.0-4.0) % Baso % (Auto) 0.5 (0.0-2.0) % Neut # (Auto) 10.4 H (1.8-7.0) K/uL Lymph # (Auto) 1.1 (1.0-4.3) K/uL [place] # (Auto) 1.0 H (0.0-0.8) K/uL Eos # (Auto) 0.6 (0.0-0.7) K/uL Baso # (Auto) 0.1 (0.0-0.2) K/uL Neutrophils % (Manual) 73 (50-75) % Band Neutrophils % 5 H (0-2) % Lymphocytes % (Manual) 9 L (20-40) % Monocytes % (Manual) 10 (0-10) % Eosinophils % (Manual) 3 (0-4) % Platelet Estimate Normal (NORMAL) Large Platelets Present Basophilic Stippling Slight Ovalocytes Slight PT (9.7-12.2) SECONDS INR APTT (21-34) SECONDS Puncture Site Rr pCO2 57 H (35-45) mm/Hg pO2 193 H (80-100) mm/Hg HCO3 24.2 (21-28) mmol/L ABG pH 7.28 L (7.35-7.45) ABG Total CO2 28.5 H (22-28) mmol/L ABG O2 Saturation 99.2 H (95-98) % ABG Base Excess -1.0 (-2.0-3.0) mmol/L Jimenez Test Pos ABG Potassium 5.0 (3.6-5.2) mmol/L A-a O2 Difference 92.0 mm/Hg Respiratory Index 0.5 Sodium 135.0 (132-148) mmol/l Chloride 101.0 (98-107) mmol/L Glucose 168 H (65-105) mg/dl Lactate 1.5 (0.7-2.1) mmol/L Vent Mode Prvc Mechanical Rate 18 FiO2 50.0 % Tidal Volume 450 PEEP 5 Potassium (3.6-5.2) mmol/L Carbon Dioxide (22-30) mmol/L Anion Gap (10-20) BUN (7-17) mg/dL Creatinine (0.7-1.2) mg/dL Est GFR ( Amer) Est GFR (Non-Af Amer) POC Glucose (mg/dL) 182 H (65-110) mg/dL Random Glucose (65-105) mg/dL Calcium (8.6-10.4) mg/dl Phosphorus (2.5-4.5) mg/dL Magnesium (1.6-2.3) mg/dL Total Bilirubin (0.2-1.3) mg/dL AST (14-36) U/L ALT (9-52) U/L Alkaline Phosphatase (38-126) U/L Troponin I (0.00-0.120) ng/mL Total Protein (6.3-8.3) g/dL Albumin (3.5-5.0) g/dL Globulin (2.2-3.9) gm/dL Albumin/Globulin Ratio (1.0-2.1) PTH Intact Whole Molec (14-64) pg/mL Arterial Blood Potassium 5.0 (3.6-5.2) mmol/L Urine Color (YELLOW) Urine Clarity (Clear) Urine pH (5.0-8.0) Ur Specific [place] (1.003-1.030) Urine Protein (NEGATIVE) mg/dL Urine Glucose (UA) (Normal) mg/dL Urine Ketones (NEGATIVE) mg/dL Urine Blood (NEGATIVE) Urine Nitrate (NEGATIVE) Urine Bilirubin (NEGATIVE) Urine Urobilinogen (0.2-1.0) mg/dL Ur Leukocyte Esterase (Negative) Gabe/uL Urine WBC (Auto) (0-5) /hpf Urine RBC (Auto) (0-3) /hpf Urine WBC Clumps (Auto) (NONE) /hpf Ur Squamous Epith Cells (0-5) /hpf Urine Bacteria (<OCC) Urine Opiates Screen (NEGATIVE) Urine Methadone Screen (NEGATIVE) Ur Barbiturates Screen (NEGATIVE) Ur Phencyclidine Scrn (NEGATIVE) Ur Amphetamines Screen (NEGATIVE) U Benzodiazepines Scrn (NEGATIVE) U Oth Cocaine Metabols (NEGATIVE) U Cannabinoids Screen (NEGATIVE) 10/06/18 10/06/18 10/06/18 Range/Units 04:16 03:25 01:55 WBC (4.8-10.8) K/uL RBC (3.80-5.20) Mil/uL Hgb (11.0-16.0) g/dL Hct (34.0-47.0) % MCV (81.0-99.0) fL MCH (27.0-31.0) pg MCHC (33.0-37.0) g/dL RDW (11.5-14.5) % Plt Count (130-400) K/uL MPV (7.2-11.7) fL Neut % (Auto) (50.0-75.0) % Lymph % (Auto) (20.0-40.0) % [place] % (Auto) (0.0-10.0) % Eos % (Auto) (0.0-4.0) % Baso % (Auto) (0.0-2.0) % Neut # (Auto) (1.8-7.0) K/uL Lymph # (Auto) (1.0-4.3) K/uL [place] # (Auto) (0.0-0.8) K/uL Eos # (Auto) (0.0-0.7) K/uL Baso # (Auto) (0.0-0.2) K/uL Neutrophils % (Manual) (50-75) % Band Neutrophils % (0-2) % Lymphocytes % (Manual) (20-40) % Monocytes % (Manual) (0-10) % Eosinophils % (Manual) (0-4) % Platelet Estimate (NORMAL) Large Platelets Basophilic Stippling Ovalocytes PT (9.7-12.2) SECONDS INR APTT (21-34) SECONDS Puncture Site pCO2 (35-45) mm/Hg pO2 (80-100) mm/Hg HCO3 (21-28) mmol/L ABG pH (7.35-7.45) ABG Total CO2 (22-28) mmol/L ABG O2 Saturation (95-98) % ABG Base Excess (-2.0-3.0) mmol/L Jimenez Test ABG Potassium (3.6-5.2) mmol/L A-a O2 Difference mm/Hg Respiratory Index Sodium (132-148) mmol/l Chloride (98-107) mmol/L Glucose (65-105) mg/dl Lactate (0.7-2.1) mmol/L Vent Mode Mechanical Rate FiO2 % Tidal Volume PEEP Potassium (3.6-5.2) mmol/L Carbon Dioxide (22-30) mmol/L Anion Gap (10-20) BUN (7-17) mg/dL Creatinine (0.7-1.2) mg/dL Est GFR ( Amer) Est GFR (Non-Af Amer) POC Glucose (mg/dL) 212 H 217 H 232 H (65-110) mg/dL Random Glucose (65-105) mg/dL Calcium (8.6-10.4) mg/dl Phosphorus (2.5-4.5) mg/dL Magnesium (1.6-2.3) mg/dL Total Bilirubin (0.2-1.3) mg/dL AST (14-36) U/L ALT (9-52) U/L Alkaline Phosphatase (38-126) U/L Troponin I (0.00-0.120) ng/mL Total Protein (6.3-8.3) g/dL Albumin (3.5-5.0) g/dL Globulin (2.2-3.9) gm/dL Albumin/Globulin Ratio (1.0-2.1) PTH Intact Whole Molec (14-64) pg/mL Arterial Blood Potassium (3.6-5.2) mmol/L Urine Color (YELLOW) Urine Clarity (Clear) Urine pH (5.0-8.0) Ur Specific [place] (1.003-1.030) Urine Protein (NEGATIVE) mg/dL Urine Glucose (UA) (Normal) mg/dL Urine Ketones (NEGATIVE) mg/dL Urine Blood (NEGATIVE) Urine Nitrate (NEGATIVE) Urine Bilirubin (NEGATIVE) Urine Urobilinogen (0.2-1.0) mg/dL Ur Leukocyte Esterase (Negative) Gabe/uL Urine WBC (Auto) (0-5) /hpf Urine RBC (Auto) (0-3) /hpf Urine WBC Clumps (Auto) (NONE) /hpf Ur Squamous Epith Cells (0-5) /hpf Urine Bacteria (<OCC) Urine Opiates Screen (NEGATIVE) Urine Methadone Screen (NEGATIVE) Ur Barbiturates Screen (NEGATIVE) Ur Phencyclidine Scrn (NEGATIVE) Ur Amphetamines Screen (NEGATIVE) U Benzodiazepines Scrn (NEGATIVE) U Oth Cocaine Metabols (NEGATIVE) U Cannabinoids Screen (NEGATIVE) 10/06/18 10/06/18 10/06/18 Range/Units 01:33 01:33 01:33 WBC (4.8-10.8) K/uL RBC (3.80-5.20) Mil/uL Hgb (11.0-16.0) g/dL Hct (34.0-47.0) % MCV (81.0-99.0) fL MCH (27.0-31.0) pg MCHC (33.0-37.0) g/dL RDW (11.5-14.5) % Plt Count (130-400) K/uL MPV (7.2-11.7) fL Neut % (Auto) (50.0-75.0) % Lymph % (Auto) (20.0-40.0) % [place] % (Auto) (0.0-10.0) % Eos % (Auto) (0.0-4.0) % Baso % (Auto) (0.0-2.0) % Neut # (Auto) (1.8-7.0) K/uL Lymph # (Auto) (1.0-4.3) K/uL [place] # (Auto) (0.0-0.8) K/uL Eos # (Auto) (0.0-0.7) K/uL Baso # (Auto) (0.0-0.2) K/uL Neutrophils % (Manual) (50-75) % Band Neutrophils % (0-2) % Lymphocytes % (Manual) (20-40) % Monocytes % (Manual) (0-10) % Eosinophils % (Manual) (0-4) % Platelet Estimate (NORMAL) Large Platelets Basophilic Stippling Ovalocytes PT (9.7-12.2) SECONDS INR APTT (21-34) SECONDS Puncture Site pCO2 (35-45) mm/Hg pO2 (80-100) mm/Hg HCO3 (21-28) mmol/L ABG pH (7.35-7.45) ABG Total CO2 (22-28) mmol/L ABG O2 Saturation (95-98) % ABG Base Excess (-2.0-3.0) mmol/L Jimenez Test ABG Potassium (3.6-5.2) mmol/L A-a O2 Difference mm/Hg Respiratory Index Sodium 133 (132-148) mmol/l Chloride 97 L (98-107) mmol/L Glucose (65-105) mg/dl Lactate (0.7-2.1) mmol/L Vent Mode Mechanical Rate FiO2 % Tidal Volume PEEP Potassium 4.0 (3.6-5.2) mmol/L Carbon Dioxide 29 (22-30) mmol/L Anion Gap 12 (10-20) BUN 20 H (7-17) mg/dL Creatinine 3.2 H (0.7-1.2) mg/dL Est GFR ( Amer) 17 Est GFR (Non-Af Amer) 14 POC Glucose (mg/dL) (65-110) mg/dL Random Glucose 211 H (65-105) mg/dL Calcium 8.1 L (8.6-10.4) mg/dl Phosphorus (2.5-4.5) mg/dL Magnesium 1.6 (1.6-2.3) mg/dL Total Bilirubin (0.2-1.3) mg/dL AST (14-36) U/L ALT (9-52) U/L Alkaline Phosphatase (38-126) U/L Troponin I (0.00-0.120) ng/mL Total Protein (6.3-8.3) g/dL Albumin (3.5-5.0) g/dL Globulin (2.2-3.9) gm/dL Albumin/Globulin Ratio (1.0-2.1) PTH Intact Whole Molec (14-64) pg/mL Arterial Blood Potassium (3.6-5.2) mmol/L Urine Color Yellow (YELLOW) Urine Clarity Turbid (Clear) Urine pH 7.0 (5.0-8.0) Ur Specific [place] 1.022 (1.003-1.030) Urine Protein 3+ H (NEGATIVE) mg/dL Urine Glucose (UA) 1+ (Normal) mg/dL Urine Ketones Trace (NEGATIVE) mg/dL Urine Blood Negative (NEGATIVE) Urine Nitrate Negative (NEGATIVE) Urine Bilirubin Negative (NEGATIVE) Urine Urobilinogen Normal (0.2-1.0) mg/dL Ur Leukocyte Esterase 3+ H (Negative) Gabe/uL Urine WBC (Auto) 1438 H (0-5) /hpf Urine RBC (Auto) 4 H (0-3) /hpf Urine WBC Clumps (Auto) Many H (NONE) /hpf Ur Squamous Epith Cells 2 (0-5) /hpf Urine Bacteria Many H (<OCC) Urine Opiates Screen Negative (NEGATIVE) Urine Methadone Screen Negative (NEGATIVE) Ur Barbiturates Screen Negative (NEGATIVE) Ur Phencyclidine Scrn Negative (NEGATIVE) Ur Amphetamines Screen Negative (NEGATIVE) U Benzodiazepines Scrn Negative (NEGATIVE) U Oth Cocaine Metabols Negative (NEGATIVE) U Cannabinoids Screen Negative (NEGATIVE) 10/06/18 10/06/18 10/06/18 Range/Units 01:33 01:33 01:03 WBC 12.5 H (4.8-10.8) K/uL RBC 3.78 L (3.80-5.20) Mil/uL Hgb 10.2 L (11.0-16.0) g/dL Hct 32.5 L (34.0-47.0) % MCV 86.2 (81.0-99.0) fL MCH 27.0 (27.0-31.0) pg MCHC 31.4 L (33.0-37.0) g/dL RDW 14.6 H (11.5-14.5) % Plt Count 125 L (130-400) K/uL MPV 10.5 (7.2-11.7) fL Neut % (Auto) 79.8 H (50.0-75.0) % Lymph % (Auto) 7.2 L (20.0-40.0) % [place] % (Auto) 8.6 (0.0-10.0) % Eos % (Auto) 4.0 (0.0-4.0) % Baso % (Auto) 0.4 (0.0-2.0) % Neut # (Auto) 9.9 H (1.8-7.0) K/uL Lymph # (Auto) 0.9 L (1.0-4.3) K/uL [place] # (Auto) 1.1 H (0.0-0.8) K/uL Eos # (Auto) 0.5 (0.0-0.7) K/uL Baso # (Auto) 0.0 (0.0-0.2) K/uL Neutrophils % (Manual) 83 H (50-75) % Band Neutrophils % 2 (0-2) % Lymphocytes % (Manual) 6 L (20-40) % Monocytes % (Manual) 9 (0-10) % Eosinophils % (Manual) (0-4) % Platelet Estimate Slightly decreased L (NORMAL) Large Platelets Basophilic Stippling Ovalocytes PT 13.0 H (9.7-12.2) SECONDS INR 1.2 APTT 41 H (21-34) SECONDS Puncture Site pCO2 (35-45) mm/Hg pO2 (80-100) mm/Hg HCO3 (21-28) mmol/L ABG pH (7.35-7.45) ABG Total CO2 (22-28) mmol/L ABG O2 Saturation (95-98) % ABG Base Excess (-2.0-3.0) mmol/L Jimenez Test ABG Potassium (3.6-5.2) mmol/L A-a O2 Difference mm/Hg Respiratory Index Sodium (132-148) mmol/l Chloride (98-107) mmol/L Glucose (65-105) mg/dl Lactate (0.7-2.1) mmol/L Vent Mode Mechanical Rate FiO2 % Tidal Volume PEEP Potassium (3.6-5.2) mmol/L Carbon Dioxide (22-30) mmol/L Anion Gap (10-20) BUN (7-17) mg/dL Creatinine (0.7-1.2) mg/dL Est GFR ( Amer) Est GFR (Non-Af Amer) POC Glucose (mg/dL) 226 H (65-110) mg/dL Random Glucose (65-105) mg/dL Calcium (8.6-10.4) mg/dl Phosphorus (2.5-4.5) mg/dL Magnesium (1.6-2.3) mg/dL Total Bilirubin (0.2-1.3) mg/dL AST (14-36) U/L ALT (9-52) U/L Alkaline Phosphatase (38-126) U/L Troponin I (0.00-0.120) ng/mL Total Protein (6.3-8.3) g/dL Albumin (3.5-5.0) g/dL Globulin (2.2-3.9) gm/dL Albumin/Globulin Ratio (1.0-2.1) PTH Intact Whole Molec (14-64) pg/mL Arterial Blood Potassium (3.6-5.2) mmol/L Urine Color (YELLOW) Urine Clarity (Clear) Urine pH (5.0-8.0) Ur Specific [place] (1.003-1.030) Urine Protein (NEGATIVE) mg/dL Urine Glucose (UA) (Normal) mg/dL Urine Ketones (NEGATIVE) mg/dL Urine Blood (NEGATIVE) Urine Nitrate (NEGATIVE) Urine Bilirubin (NEGATIVE) Urine Urobilinogen (0.2-1.0) mg/dL Ur Leukocyte Esterase (Negative) Gabe/uL Urine WBC (Auto) (0-5) /hpf Urine RBC (Auto) (0-3) /hpf Urine WBC Clumps (Auto) (NONE) /hpf Ur Squamous Epith Cells (0-5) /hpf Urine Bacteria (<OCC) Urine Opiates Screen (NEGATIVE) Urine Methadone Screen (NEGATIVE) Ur Barbiturates Screen (NEGATIVE) Ur Phencyclidine Scrn (NEGATIVE) Ur Amphetamines Screen (NEGATIVE) U Benzodiazepines Scrn (NEGATIVE) U Oth Cocaine Metabols (NEGATIVE) U Cannabinoids Screen (NEGATIVE) 10/06/18 10/05/18 10/05/18 Range/Units 00:07 23:29 22:32 WBC (4.8-10.8) K/uL RBC (3.80-5.20) Mil/uL Hgb (11.0-16.0) g/dL Hct (34.0-47.0) % MCV (81.0-99.0) fL MCH (27.0-31.0) pg MCHC (33.0-37.0) g/dL RDW (11.5-14.5) % Plt Count (130-400) K/uL MPV (7.2-11.7) fL Neut % (Auto) (50.0-75.0) % Lymph % (Auto) (20.0-40.0) % [place] % (Auto) (0.0-10.0) % Eos % (Auto) (0.0-4.0) % Baso % (Auto) (0.0-2.0) % Neut # (Auto) (1.8-7.0) K/uL Lymph # (Auto) (1.0-4.3) K/uL [place] # (Auto) (0.0-0.8) K/uL Eos # (Auto) (0.0-0.7) K/uL Baso # (Auto) (0.0-0.2) K/uL Neutrophils % (Manual) (50-75) % Band Neutrophils % (0-2) % Lymphocytes % (Manual) (20-40) % Monocytes % (Manual) (0-10) % Eosinophils % (Manual) (0-4) % Platelet Estimate (NORMAL) Large Platelets Basophilic Stippling Ovalocytes PT (9.7-12.2) SECONDS INR APTT (21-34) SECONDS Puncture Site pCO2 (35-45) mm/Hg pO2 (80-100) mm/Hg HCO3 (21-28) mmol/L ABG pH (7.35-7.45) ABG Total CO2 (22-28) mmol/L ABG O2 Saturation (95-98) % ABG Base Excess (-2.0-3.0) mmol/L Jimenez Test ABG Potassium (3.6-5.2) mmol/L A-a O2 Difference mm/Hg Respiratory Index Sodium (132-148) mmol/l Chloride (98-107) mmol/L Glucose (65-105) mg/dl Lactate (0.7-2.1) mmol/L Vent Mode Mechanical Rate FiO2 % Tidal Volume PEEP Potassium (3.6-5.2) mmol/L Carbon Dioxide (22-30) mmol/L Anion Gap (10-20) BUN (7-17) mg/dL Creatinine (0.7-1.2) mg/dL Est GFR ( Amer) Est GFR (Non-Af Amer) POC Glucose (mg/dL) 249 H 237 H 248 H (65-110) mg/dL Random Glucose (65-105) mg/dL Calcium (8.6-10.4) mg/dl Phosphorus (2.5-4.5) mg/dL Magnesium (1.6-2.3) mg/dL Total Bilirubin (0.2-1.3) mg/dL AST (14-36) U/L ALT (9-52) U/L Alkaline Phosphatase (38-126) U/L Troponin I (0.00-0.120) ng/mL Total Protein (6.3-8.3) g/dL Albumin (3.5-5.0) g/dL Globulin (2.2-3.9) gm/dL Albumin/Globulin Ratio (1.0-2.1) PTH Intact Whole Molec (14-64) pg/mL Arterial Blood Potassium (3.6-5.2) mmol/L Urine Color (YELLOW) Urine Clarity (Clear) Urine pH (5.0-8.0) Ur Specific [place] (1.003-1.030) Urine Protein (NEGATIVE) mg/dL Urine Glucose (UA) (Normal) mg/dL Urine Ketones (NEGATIVE) mg/dL Urine Blood (NEGATIVE) Urine Nitrate (NEGATIVE) Urine Bilirubin (NEGATIVE) Urine Urobilinogen (0.2-1.0) mg/dL Ur Leukocyte Esterase (Negative) Gabe/uL Urine WBC (Auto) (0-5) /hpf Urine RBC (Auto) (0-3) /hpf Urine WBC Clumps (Auto) (NONE) /hpf Ur Squamous Epith Cells (0-5) /hpf Urine Bacteria (<OCC) Urine Opiates Screen (NEGATIVE) Urine Methadone Screen (NEGATIVE) Ur Barbiturates Screen (NEGATIVE) Ur Phencyclidine Scrn (NEGATIVE) Ur Amphetamines Screen (NEGATIVE) U Benzodiazepines Scrn (NEGATIVE) U Oth Cocaine Metabols (NEGATIVE) U Cannabinoids Screen (NEGATIVE) 10/05/18 10/05/18 10/05/18 Range/Units 21:08 19:47 17:26 WBC (4.8-10.8) K/uL RBC (3.80-5.20) Mil/uL Hgb (11.0-16.0) g/dL Hct (34.0-47.0) % MCV (81.0-99.0) fL MCH (27.0-31.0) pg MCHC (33.0-37.0) g/dL RDW (11.5-14.5) % Plt Count (130-400) K/uL MPV (7.2-11.7) fL Neut % (Auto) (50.0-75.0) % Lymph % (Auto) (20.0-40.0) % [place] % (Auto) (0.0-10.0) % Eos % (Auto) (0.0-4.0) % Baso % (Auto) (0.0-2.0) % Neut # (Auto) (1.8-7.0) K/uL Lymph # (Auto) (1.0-4.3) K/uL [place] # (Auto) (0.0-0.8) K/uL Eos # (Auto) (0.0-0.7) K/uL Baso # (Auto) (0.0-0.2) K/uL Neutrophils % (Manual) (50-75) % Band Neutrophils % (0-2) % Lymphocytes % (Manual) (20-40) % Monocytes % (Manual) (0-10) % Eosinophils % (Manual) (0-4) % Platelet Estimate (NORMAL) Large Platelets Basophilic Stippling Ovalocytes PT 13.0 H (9.7-12.2) SECONDS INR 1.2 APTT 38 H (21-34) SECONDS Puncture Site pCO2 (35-45) mm/Hg pO2 (80-100) mm/Hg HCO3 (21-28) mmol/L ABG pH (7.35-7.45) ABG Total CO2 (22-28) mmol/L ABG O2 Saturation (95-98) % ABG Base Excess (-2.0-3.0) mmol/L Jimenez Test ABG Potassium (3.6-5.2) mmol/L A-a O2 Difference mm/Hg Respiratory Index Sodium (132-148) mmol/l Chloride (98-107) mmol/L Glucose (65-105) mg/dl Lactate (0.7-2.1) mmol/L Vent Mode Mechanical Rate FiO2 % Tidal Volume PEEP Potassium (3.6-5.2) mmol/L Carbon Dioxide (22-30) mmol/L Anion Gap (10-20) BUN (7-17) mg/dL Creatinine (0.7-1.2) mg/dL Est GFR ( Amer) Est GFR (Non-Af Amer) POC Glucose (mg/dL) 230 H 211 H (65-110) mg/dL Random Glucose (65-105) mg/dL Calcium (8.6-10.4) mg/dl Phosphorus (2.5-4.5) mg/dL Magnesium (1.6-2.3) mg/dL Total Bilirubin (0.2-1.3) mg/dL AST (14-36) U/L ALT (9-52) U/L Alkaline Phosphatase (38-126) U/L Troponin I (0.00-0.120) ng/mL Total Protein (6.3-8.3) g/dL Albumin (3.5-5.0) g/dL Globulin (2.2-3.9) gm/dL Albumin/Globulin Ratio (1.0-2.1) PTH Intact Whole Molec (14-64) pg/mL Arterial Blood Potassium (3.6-5.2) mmol/L Urine Color (YELLOW) Urine Clarity (Clear) Urine pH (5.0-8.0) Ur Specific [place] (1.003-1.030) Urine Protein (NEGATIVE) mg/dL Urine Glucose (UA) (Normal) mg/dL Urine Ketones (NEGATIVE) mg/dL Urine Blood (NEGATIVE) Urine Nitrate (NEGATIVE) Urine Bilirubin (NEGATIVE) Urine Urobilinogen (0.2-1.0) mg/dL Ur Leukocyte Esterase (Negative) Gabe/uL Urine WBC (Auto) (0-5) /hpf Urine RBC (Auto) (0-3) /hpf Urine WBC Clumps (Auto) (NONE) /hpf Ur Squamous Epith Cells (0-5) /hpf Urine Bacteria (<OCC) Urine Opiates Screen (NEGATIVE) Urine Methadone Screen (NEGATIVE) Ur Barbiturates Screen (NEGATIVE) Ur Phencyclidine Scrn (NEGATIVE) Ur Amphetamines Screen (NEGATIVE) U Benzodiazepines Scrn (NEGATIVE) U Oth Cocaine Metabols (NEGATIVE) U Cannabinoids Screen (NEGATIVE) 10/05/18 10/05/18 10/05/18 Range/Units 17:26 17:26 16:31 WBC 9.4 (4.8-10.8) K/uL RBC 3.38 L (3.80-5.20) Mil/uL Hgb 9.0 L (11.0-16.0) g/dL Hct 28.8 L (34.0-47.0) % MCV 85.3 (81.0-99.0) fL MCH 26.6 L (27.0-31.0) pg MCHC 31.1 L (33.0-37.0) g/dL RDW 14.4 (11.5-14.5) % Plt Count 121 L (130-400) K/uL MPV 10.1 (7.2-11.7) fL Neut % (Auto) 68.6 (50.0-75.0) % Lymph % (Auto) 13.4 L (20.0-40.0) % [place] % (Auto) 8.5 (0.0-10.0) % Eos % (Auto) 9.1 H (0.0-4.0) % Baso % (Auto) 0.4 (0.0-2.0) % Neut # (Auto) 6.4 (1.8-7.0) K/uL Lymph # (Auto) 1.3 (1.0-4.3) K/uL [place] # (Auto) 0.8 (0.0-0.8) K/uL Eos # (Auto) 0.9 H (0.0-0.7) K/uL Baso # (Auto) 0.0 (0.0-0.2) K/uL Neutrophils % (Manual) (50-75) % Band Neutrophils % (0-2) % Lymphocytes % (Manual) (20-40) % Monocytes % (Manual) (0-10) % Eosinophils % (Manual) (0-4) % Platelet Estimate (NORMAL) Large Platelets Basophilic Stippling Ovalocytes PT (9.7-12.2) SECONDS INR APTT (21-34) SECONDS Puncture Site pCO2 (35-45) mm/Hg pO2 (80-100) mm/Hg HCO3 (21-28) mmol/L ABG pH (7.35-7.45) ABG Total CO2 (22-28) mmol/L ABG O2 Saturation (95-98) % ABG Base Excess (-2.0-3.0) mmol/L Jimenez Test ABG Potassium (3.6-5.2) mmol/L A-a O2 Difference mm/Hg Respiratory Index Sodium 134 (132-148) mmol/l Chloride 98 (98-107) mmol/L Glucose (65-105) mg/dl Lactate (0.7-2.1) mmol/L Vent Mode Mechanical Rate FiO2 % Tidal Volume PEEP Potassium 3.6 (3.6-5.2) mmol/L Carbon Dioxide 28 (22-30) mmol/L Anion Gap 11 (10-20) BUN 17 (7-17) mg/dL Creatinine 3.3 H (0.7-1.2) mg/dL Est GFR ( Amer) 17 Est GFR (Non-Af Amer) 14 POC Glucose (mg/dL) 200 H (65-110) mg/dL Random Glucose 198 H D (65-105) mg/dL Calcium 8.2 L (8.6-10.4) mg/dl Phosphorus 2.8 (2.5-4.5) mg/dL Magnesium 1.6 (1.6-2.3) mg/dL Total Bilirubin 0.4 (0.2-1.3) mg/dL AST 155 H D (14-36) U/L ALT 108 H D (9-52) U/L Alkaline Phosphatase 96 (38-126) U/L Troponin I 0.0400 (0.00-0.120) ng/mL Total Protein 5.5 L (6.3-8.3) g/dL Albumin 3.1 L (3.5-5.0) g/dL Globulin 2.4 (2.2-3.9) gm/dL Albumin/Globulin Ratio 1.3 (1.0-2.1) PTH Intact Whole Molec (14-64) pg/mL Arterial Blood Potassium (3.6-5.2) mmol/L Urine Color (YELLOW) Urine Clarity (Clear) Urine pH (5.0-8.0) Ur Specific [place] (1.003-1.030) Urine Protein (NEGATIVE) mg/dL Urine Glucose (UA) (Normal) mg/dL Urine Ketones (NEGATIVE) mg/dL Urine Blood (NEGATIVE) Urine Nitrate (NEGATIVE) Urine Bilirubin (NEGATIVE) Urine Urobilinogen (0.2-1.0) mg/dL Ur Leukocyte Esterase (Negative) Gabe/uL Urine WBC (Auto) (0-5) /hpf Urine RBC (Auto) (0-3) /hpf Urine WBC Clumps (Auto) (NONE) /hpf Ur Squamous Epith Cells (0-5) /hpf Urine Bacteria (<OCC) Urine Opiates Screen (NEGATIVE) Urine Methadone Screen (NEGATIVE) Ur Barbiturates Screen (NEGATIVE) Ur Phencyclidine Scrn (NEGATIVE) Ur Amphetamines Screen (NEGATIVE) U Benzodiazepines Scrn (NEGATIVE) U Oth Cocaine Metabols (NEGATIVE) U Cannabinoids Screen (NEGATIVE) 10/05/18 10/05/18 10/05/18 Range/Units 16:26 14:11 11:17 WBC (4.8-10.8) K/uL RBC (3.80-5.20) Mil/uL Hgb (11.0-16.0) g/dL Hct (34.0-47.0) % MCV (81.0-99.0) fL MCH (27.0-31.0) pg MCHC (33.0-37.0) g/dL RDW (11.5-14.5) % Plt Count (130-400) K/uL MPV (7.2-11.7) fL Neut % (Auto) (50.0-75.0) % Lymph % (Auto) (20.0-40.0) % [place] % (Auto) (0.0-10.0) % Eos % (Auto) (0.0-4.0) % Baso % (Auto) (0.0-2.0) % Neut # (Auto) (1.8-7.0) K/uL Lymph # (Auto) (1.0-4.3) K/uL [place] # (Auto) (0.0-0.8) K/uL Eos # (Auto) (0.0-0.7) K/uL Baso # (Auto) (0.0-0.2) K/uL Neutrophils % (Manual) (50-75) % Band Neutrophils % (0-2) % Lymphocytes % (Manual) (20-40) % Monocytes % (Manual) (0-10) % Eosinophils % (Manual) (0-4) % Platelet Estimate (NORMAL) Large Platelets Basophilic Stippling Ovalocytes PT (9.7-12.2) SECONDS INR APTT (21-34) SECONDS Puncture Site Rr pCO2 52 H (35-45) mm/Hg pO2 391 H (80-100) mm/Hg HCO3 28.4 H (21-28) mmol/L ABG pH 7.38 (7.35-7.45) ABG Total CO2 32.4 H (22-28) mmol/L ABG O2 Saturation 99.2 H (95-98) % ABG Base Excess 4.4 H (-2.0-3.0) mmol/L Jimenez Test Unable ABG Potassium 3.3 L (3.6-5.2) mmol/L A-a O2 Difference 257.0 mm/Hg Respiratory Index 0.7 Sodium 136.0 (132-148) mmol/l Chloride 105.0 (98-107) mmol/L Glucose 192 H (65-105) mg/dl Lactate 1.1 (0.7-2.1) mmol/L Vent Mode Prvc Mechanical Rate 14 FiO2 100.0 % Tidal Volume 450 PEEP 5 Potassium (3.6-5.2) mmol/L Carbon Dioxide (22-30) mmol/L Anion Gap (10-20) BUN (7-17) mg/dL Creatinine (0.7-1.2) mg/dL Est GFR ( Amer) Est GFR (Non-Af Amer) POC Glucose (mg/dL) 204 H 148 H (65-110) mg/dL Random Glucose (65-105) mg/dL Calcium (8.6-10.4) mg/dl Phosphorus (2.5-4.5) mg/dL Magnesium (1.6-2.3) mg/dL Total Bilirubin (0.2-1.3) mg/dL AST (14-36) U/L ALT (9-52) U/L Alkaline Phosphatase (38-126) U/L Troponin I (0.00-0.120) ng/mL Total Protein (6.3-8.3) g/dL Albumin (3.5-5.0) g/dL Globulin (2.2-3.9) gm/dL Albumin/Globulin Ratio (1.0-2.1) PTH Intact Whole Molec (14-64) pg/mL Arterial Blood Potassium 3.3 L (3.6-5.2) mmol/L Urine Color (YELLOW) Urine Clarity (Clear) Urine pH (5.0-8.0) Ur Specific [place] (1.003-1.030) Urine Protein (NEGATIVE) mg/dL Urine Glucose (UA) (Normal) mg/dL Urine Ketones (NEGATIVE) mg/dL Urine Blood (NEGATIVE) Urine Nitrate (NEGATIVE) Urine Bilirubin (NEGATIVE) Urine Urobilinogen (0.2-1.0) mg/dL Ur Leukocyte Esterase (Negative) Gabe/uL Urine WBC (Auto) (0-5) /hpf Urine RBC (Auto) (0-3) /hpf Urine WBC Clumps (Auto) (NONE) /hpf Ur Squamous Epith Cells (0-5) /hpf Urine Bacteria (<OCC) Urine Opiates Screen (NEGATIVE) Urine Methadone Screen (NEGATIVE) Ur Barbiturates Screen (NEGATIVE) Ur Phencyclidine Scrn (NEGATIVE) Ur Amphetamines Screen (NEGATIVE) U Benzodiazepines Scrn (NEGATIVE) U Oth Cocaine Metabols (NEGATIVE) U Cannabinoids Screen (NEGATIVE) 10/04/18 Range/Units 10:23 WBC (4.8-10.8) K/uL RBC (3.80-5.20) Mil/uL Hgb (11.0-16.0) g/dL Hct (34.0-47.0) % MCV (81.0-99.0) fL MCH (27.0-31.0) pg MCHC (33.0-37.0) g/dL RDW (11.5-14.5) % Plt Count (130-400) K/uL MPV (7.2-11.7) fL Neut % (Auto) (50.0-75.0) % Lymph % (Auto) (20.0-40.0) % [place] % (Auto) (0.0-10.0) % Eos % (Auto) (0.0-4.0) % Baso % (Auto) (0.0-2.0) % Neut # (Auto) (1.8-7.0) K/uL Lymph # (Auto) (1.0-4.3) K/uL [place] # (Auto) (0.0-0.8) K/uL Eos # (Auto) (0.0-0.7) K/uL Baso # (Auto) (0.0-0.2) K/uL Neutrophils % (Manual) (50-75) % Band Neutrophils % (0-2) % Lymphocytes % (Manual) (20-40) % Monocytes % (Manual) (0-10) % Eosinophils % (Manual) (0-4) % Platelet Estimate (NORMAL) Large Platelets Basophilic Stippling Ovalocytes PT (9.7-12.2) SECONDS INR APTT (21-34) SECONDS Puncture Site pCO2 (35-45) mm/Hg pO2 (80-100) mm/Hg HCO3 (21-28) mmol/L ABG pH (7.35-7.45) ABG Total CO2 (22-28) mmol/L ABG O2 Saturation (95-98) % ABG Base Excess (-2.0-3.0) mmol/L Jimenez Test ABG Potassium (3.6-5.2) mmol/L A-a O2 Difference mm/Hg Respiratory Index Sodium (132-148) mmol/l Chloride (98-107) mmol/L Glucose (65-105) mg/dl Lactate (0.7-2.1) mmol/L Vent Mode Mechanical Rate FiO2 % Tidal Volume PEEP Potassium (3.6-5.2) mmol/L Carbon Dioxide (22-30) mmol/L Anion Gap (10-20) BUN (7-17) mg/dL Creatinine (0.7-1.2) mg/dL Est GFR ( Amer) Est GFR (Non-Af Amer) POC Glucose (mg/dL) (65-110) mg/dL Random Glucose (65-105) mg/dL Calcium (8.6-10.4) mg/dl Phosphorus (2.5-4.5) mg/dL Magnesium (1.6-2.3) mg/dL Total Bilirubin (0.2-1.3) mg/dL AST (14-36) U/L ALT (9-52) U/L Alkaline Phosphatase (38-126) U/L Troponin I (0.00-0.120) ng/mL Total Protein (6.3-8.3) g/dL Albumin (3.5-5.0) g/dL Globulin (2.2-3.9) gm/dL Albumin/Globulin Ratio (1.0-2.1) PTH Intact Whole Molec 411 H (14-64) pg/mL Arterial Blood Potassium (3.6-5.2) mmol/L Urine Color (YELLOW) Urine Clarity (Clear) Urine pH (5.0-8.0) Ur Specific [place] (1.003-1.030) Urine Protein (NEGATIVE) mg/dL Urine Glucose (UA) (Normal) mg/dL Urine Ketones (NEGATIVE) mg/dL Urine Blood (NEGATIVE) Urine Nitrate (NEGATIVE) Urine Bilirubin (NEGATIVE) Urine Urobilinogen (0.2-1.0) mg/dL Ur Leukocyte Esterase (Negative) Gabe/uL Urine WBC (Auto) (0-5) /hpf Urine RBC (Auto) (0-3) /hpf Urine WBC Clumps (Auto) (NONE) /hpf Ur Squamous Epith Cells (0-5) /hpf Urine Bacteria (<OCC) Urine Opiates Screen (NEGATIVE) Urine Methadone Screen (NEGATIVE) Ur Barbiturates Screen (NEGATIVE) Ur Phencyclidine Scrn (NEGATIVE) Ur Amphetamines Screen (NEGATIVE) U Benzodiazepines Scrn (NEGATIVE) U Oth Cocaine Metabols (NEGATIVE) U Cannabinoids Screen (NEGATIVE) Laboratory Results - last 24 hr 10/04/18 10/05/18 10/05/18 10:23 11:17 14:11 WBC RBC Hgb Hct MCV MCH MCHC RDW Plt Count MPV Neut % (Auto) Lymph % (Auto) [place] % (Auto) Eos % (Auto) Baso % (Auto) Neut # (Auto) Lymph # (Auto) [place] # (Auto) Eos # (Auto) Baso # (Auto) Neutrophils % (Manual) Band Neutrophils % Lymphocytes % (Manual) Monocytes % (Manual) Eosinophils % (Manual) Platelet Estimate Large Platelets Basophilic Stippling Ovalocytes PT INR APTT Puncture Site pCO2 pO2 HCO3 ABG pH ABG Total CO2 ABG O2 Saturation ABG Base Excess Jimenez Test ABG Potassium A-a O2 Difference Respiratory Index Sodium Chloride Glucose Lactate Vent Mode Mechanical Rate FiO2 Tidal Volume PEEP Potassium Carbon Dioxide Anion Gap BUN Creatinine Est GFR ( Amer) Est GFR (Non-Af Amer) POC Glucose (mg/dL) 148 H 204 H Random Glucose Calcium Phosphorus Magnesium Total Bilirubin AST ALT Alkaline Phosphatase Troponin I Total Protein Albumin Globulin Albumin/Globulin Ratio PTH Intact Whole Molec 411 H Arterial Blood Potassium Urine Color Urine Clarity Urine pH Ur Specific [place] Urine Protein Urine Glucose (UA) Urine Ketones Urine Blood Urine Nitrate Urine Bilirubin Urine Urobilinogen Ur Leukocyte Esterase Urine WBC (Auto) Urine RBC (Auto) Urine WBC Clumps (Auto) Ur Squamous Epith Cells Urine Bacteria Urine Opiates Screen Urine Methadone Screen Ur Barbiturates Screen Ur Phencyclidine Scrn Ur Amphetamines Screen U Benzodiazepines Scrn U Oth Cocaine Metabols U Cannabinoids Screen 10/05/18 10/05/18 10/05/18 16:26 16:31 17:26 WBC 9.4 RBC 3.38 L Hgb 9.0 L Hct 28.8 L MCV 85.3 MCH 26.6 L MCHC 31.1 L RDW 14.4 Plt Count 121 L MPV 10.1 Neut % (Auto) 68.6 Lymph % (Auto) 13.4 L [place] % (Auto) 8.5 Eos % (Auto) 9.1 H Baso % (Auto) 0.4 Neut # (Auto) 6.4 Lymph # (Auto) 1.3 [place] # (Auto) 0.8 Eos # (Auto) 0.9 H Baso # (Auto) 0.0 Neutrophils % (Manual) Band Neutrophils % Lymphocytes % (Manual) Monocytes % (Manual) Eosinophils % (Manual) Platelet Estimate Large Platelets Basophilic Stippling Ovalocytes PT INR APTT Puncture Site Rr pCO2 52 H pO2 391 H HCO3 28.4 H ABG pH 7.38 ABG Total CO2 32.4 H ABG O2 Saturation 99.2 H ABG Base Excess 4.4 H Jimenez Test Unable ABG Potassium 3.3 L A-a O2 Difference 257.0 Respiratory Index 0.7 Sodium 136.0 Chloride 105.0 Glucose 192 H Lactate 1.1 Vent Mode Prvc Mechanical Rate 14 FiO2 100.0 Tidal Volume 450 PEEP 5 Potassium Carbon Dioxide Anion Gap BUN Creatinine Est GFR ( Amer) Est GFR (Non-Af Amer) POC Glucose (mg/dL) 200 H Random Glucose Calcium Phosphorus Magnesium Total Bilirubin AST ALT Alkaline Phosphatase Troponin I Total Protein Albumin Globulin Albumin/Globulin Ratio PTH Intact Whole Molec Arterial Blood Potassium 3.3 L Urine Color Urine Clarity Urine pH Ur Specific [place] Urine Protein Urine Glucose (UA) Urine Ketones Urine Blood Urine Nitrate Urine Bilirubin Urine Urobilinogen Ur Leukocyte Esterase Urine WBC (Auto) Urine RBC (Auto) Urine WBC Clumps (Auto) Ur Squamous Epith Cells Urine Bacteria Urine Opiates Screen Urine Methadone Screen Ur Barbiturates Screen Ur Phencyclidine Scrn Ur Amphetamines Screen U Benzodiazepines Scrn U Oth Cocaine Metabols U Cannabinoids Screen 10/05/18 10/05/18 10/05/18 17:26 17:26 19:47 WBC RBC Hgb Hct MCV MCH MCHC RDW Plt Count MPV Neut % (Auto) Lymph % (Auto) [place] % (Auto) Eos % (Auto) Baso % (Auto) Neut # (Auto) Lymph # (Auto) [place] # (Auto) Eos # (Auto) Baso # (Auto) Neutrophils % (Manual) Band Neutrophils % Lymphocytes % (Manual) Monocytes % (Manual) Eosinophils % (Manual) Platelet Estimate Large Platelets Basophilic Stippling Ovalocytes PT 13.0 H INR 1.2 APTT 38 H Puncture Site pCO2 pO2 HCO3 ABG pH ABG Total CO2 ABG O2 Saturation ABG Base Excess Jimenez Test ABG Potassium A-a O2 Difference Respiratory Index Sodium 134 Chloride 98 Glucose Lactate Vent Mode Mechanical Rate FiO2 Tidal Volume PEEP Potassium 3.6 Carbon Dioxide 28 Anion Gap 11 BUN 17 Creatinine 3.3 H Est GFR ( Amer) 17 Est GFR (Non-Af Amer) 14 POC Glucose (mg/dL) 211 H Random Glucose 198 H D Calcium 8.2 L Phosphorus 2.8 Magnesium 1.6 Total Bilirubin 0.4 AST 155 H D ALT 108 H D Alkaline Phosphatase 96 Troponin I 0.0400 Total Protein 5.5 L Albumin 3.1 L Globulin 2.4 Albumin/Globulin Ratio 1.3 PTH Intact Whole Molec Arterial Blood Potassium Urine Color Urine Clarity Urine pH Ur Specific [place] Urine Protein Urine Glucose (UA) Urine Ketones Urine Blood Urine Nitrate Urine Bilirubin Urine Urobilinogen Ur Leukocyte Esterase Urine WBC (Auto) Urine RBC (Auto) Urine WBC Clumps (Auto) Ur Squamous Epith Cells Urine Bacteria Urine Opiates Screen Urine Methadone Screen Ur Barbiturates Screen Ur Phencyclidine Scrn Ur Amphetamines Screen U Benzodiazepines Scrn U Oth Cocaine Metabols U Cannabinoids Screen 10/05/18 10/05/18 10/05/18 21:08 22:32 23:29 WBC RBC Hgb Hct MCV MCH MCHC RDW Plt Count MPV Neut % (Auto) Lymph % (Auto) [place] % (Auto) Eos % (Auto) Baso % (Auto) Neut # (Auto) Lymph # (Auto) [place] # (Auto) Eos # (Auto) Baso # (Auto) Neutrophils % (Manual) Band Neutrophils % Lymphocytes % (Manual) Monocytes % (Manual) Eosinophils % (Manual) Platelet Estimate Large Platelets Basophilic Stippling Ovalocytes PT INR APTT Puncture Site pCO2 pO2 HCO3 ABG pH ABG Total CO2 ABG O2 Saturation ABG Base Excess Jimenez Test ABG Potassium A-a O2 Difference Respiratory Index Sodium Chloride Glucose Lactate Vent Mode Mechanical Rate FiO2 Tidal Volume PEEP Potassium Carbon Dioxide Anion Gap BUN Creatinine Est GFR ( Amer) Est GFR (Non-Af Amer) POC Glucose (mg/dL) 230 H 248 H 237 H Random Glucose Calcium Phosphorus Magnesium Total Bilirubin AST ALT Alkaline Phosphatase Troponin I Total Protein Albumin Globulin Albumin/Globulin Ratio PTH Intact Whole Molec Arterial Blood Potassium Urine Color Urine Clarity Urine pH Ur Specific [place] Urine Protein Urine Glucose (UA) Urine Ketones Urine Blood Urine Nitrate Urine Bilirubin Urine Urobilinogen Ur Leukocyte Esterase Urine WBC (Auto) Urine RBC (Auto) Urine WBC Clumps (Auto) Ur Squamous Epith Cells Urine Bacteria Urine Opiates Screen Urine Methadone Screen Ur Barbiturates Screen Ur Phencyclidine Scrn Ur Amphetamines Screen U Benzodiazepines Scrn U Oth Cocaine Metabols U Cannabinoids Screen 10/06/18 10/06/18 10/06/18 00:07 01:03 01:33 WBC 12.5 H RBC 3.78 L Hgb 10.2 L Hct 32.5 L MCV 86.2 MCH 27.0 MCHC 31.4 L RDW 14.6 H Plt Count 125 L MPV 10.5 Neut % (Auto) 79.8 H Lymph % (Auto) 7.2 L [place] % (Auto) 8.6 Eos % (Auto) 4.0 Baso % (Auto) 0.4 Neut # (Auto) 9.9 H Lymph # (Auto) 0.9 L [place] # (Auto) 1.1 H Eos # (Auto) 0.5 Baso # (Auto) 0.0 Neutrophils % (Manual) 83 H Band Neutrophils % 2 Lymphocytes % (Manual) 6 L Monocytes % (Manual) 9 Eosinophils % (Manual) Platelet Estimate Slightly decreased L Large Platelets Basophilic Stippling Ovalocytes PT INR APTT Puncture Site pCO2 pO2 HCO3 ABG pH ABG Total CO2 ABG O2 Saturation ABG Base Excess Jimenez Test ABG Potassium A-a O2 Difference Respiratory Index Sodium Chloride Glucose Lactate Vent Mode Mechanical Rate FiO2 Tidal Volume PEEP Potassium Carbon Dioxide Anion Gap BUN Creatinine Est GFR ( Amer) Est GFR (Non-Af Amer) POC Glucose (mg/dL) 249 H 226 H Random Glucose Calcium Phosphorus Magnesium Total Bilirubin AST ALT Alkaline Phosphatase Troponin I Total Protein Albumin Globulin Albumin/Globulin Ratio PTH Intact Whole Molec Arterial Blood Potassium Urine Color Urine Clarity Urine pH Ur Specific [place] Urine Protein Urine Glucose (UA) Urine Ketones Urine Blood Urine Nitrate Urine Bilirubin Urine Urobilinogen Ur Leukocyte Esterase Urine WBC (Auto) Urine RBC (Auto) Urine WBC Clumps (Auto) Ur Squamous Epith Cells Urine Bacteria Urine Opiates Screen Urine Methadone Screen Ur Barbiturates Screen Ur Phencyclidine Scrn Ur Amphetamines Screen U Benzodiazepines Scrn U Oth Cocaine Metabols U Cannabinoids Screen 10/06/18 10/06/18 10/06/18 01:33 01:33 01:33 WBC RBC Hgb Hct MCV MCH MCHC RDW Plt Count MPV Neut % (Auto) Lymph % (Auto) [place] % (Auto) Eos % (Auto) Baso % (Auto) Neut # (Auto) Lymph # (Auto) [place] # (Auto) Eos # (Auto) Baso # (Auto) Neutrophils % (Manual) Band Neutrophils % Lymphocytes % (Manual) Monocytes % (Manual) Eosinophils % (Manual) Platelet Estimate Large Platelets Basophilic Stippling Ovalocytes PT 13.0 H INR 1.2 APTT 41 H Puncture Site pCO2 pO2 HCO3 ABG pH ABG Total CO2 ABG O2 Saturation ABG Base Excess Jimenez Test ABG Potassium A-a O2 Difference Respiratory Index Sodium 133 Chloride 97 L Glucose Lactate Vent Mode Mechanical Rate FiO2 Tidal Volume PEEP Potassium 4.0 Carbon Dioxide 29 Anion Gap 12 BUN 20 H Creatinine 3.2 H Est GFR ( Amer) 17 Est GFR (Non-Af Amer) 14 POC Glucose (mg/dL) Random Glucose 211 H Calcium 8.1 L Phosphorus Magnesium 1.6 Total Bilirubin AST ALT Alkaline Phosphatase Troponin I Total Protein Albumin Globulin Albumin/Globulin Ratio PTH Intact Whole Molec Arterial Blood Potassium Urine Color Urine Clarity Urine pH Ur Specific [place] Urine Protein Urine Glucose (UA) Urine Ketones Urine Blood Urine Nitrate Urine Bilirubin Urine Urobilinogen Ur Leukocyte Esterase Urine WBC (Auto) Urine RBC (Auto) Urine WBC Clumps (Auto) Ur Squamous Epith Cells Urine Bacteria Urine Opiates Screen Negative Urine Methadone Screen Negative Ur Barbiturates Screen Negative Ur Phencyclidine Scrn Negative Ur Amphetamines Screen Negative U Benzodiazepines Scrn Negative U Oth Cocaine Metabols Negative U Cannabinoids Screen Negative 10/06/18 10/06/18 10/06/18 01:33 01:55 03:25 WBC RBC Hgb Hct MCV MCH MCHC RDW Plt Count MPV Neut % (Auto) Lymph % (Auto) [place] % (Auto) Eos % (Auto) Baso % (Auto) Neut # (Auto) Lymph # (Auto) [place] # (Auto) Eos # (Auto) Baso # (Auto) Neutrophils % (Manual) Band Neutrophils % Lymphocytes % (Manual) Monocytes % (Manual) Eosinophils % (Manual) Platelet Estimate Large Platelets Basophilic Stippling Ovalocytes PT INR APTT Puncture Site pCO2 pO2 HCO3 ABG pH ABG Total CO2 ABG O2 Saturation ABG Base Excess Jimenez Test ABG Potassium A-a O2 Difference Respiratory Index Sodium Chloride Glucose Lactate Vent Mode Mechanical Rate FiO2 Tidal Volume PEEP Potassium Carbon Dioxide Anion Gap BUN Creatinine Est GFR ( Amer) Est GFR (Non-Af Amer) POC Glucose (mg/dL) 232 H 217 H Random Glucose Calcium Phosphorus Magnesium Total Bilirubin AST ALT Alkaline Phosphatase Troponin I Total Protein Albumin Globulin Albumin/Globulin Ratio PTH Intact Whole Molec Arterial Blood Potassium Urine Color Yellow Urine Clarity Turbid Urine pH 7.0 Ur Specific [place] 1.022 Urine Protein 3+ H Urine Glucose (UA) 1+ Urine Ketones Trace Urine Blood Negative Urine Nitrate Negative Urine Bilirubin Negative Urine Urobilinogen Normal Ur Leukocyte Esterase 3+ H Urine WBC (Auto) 1438 H Urine RBC (Auto) 4 H Urine WBC Clumps (Auto) Many H Ur Squamous Epith Cells 2 Urine Bacteria Many H Urine Opiates Screen Urine Methadone Screen Ur Barbiturates Screen Ur Phencyclidine Scrn Ur Amphetamines Screen U Benzodiazepines Scrn U Oth Cocaine Metabols U Cannabinoids Screen 10/06/18 10/06/18 10/06/18 04:16 04:40 05:11 WBC RBC Hgb Hct MCV MCH MCHC RDW Plt Count MPV Neut % (Auto) Lymph % (Auto) [place] % (Auto) Eos % (Auto) Baso % (Auto) Neut # (Auto) Lymph # (Auto) [place] # (Auto) Eos # (Auto) Baso # (Auto) Neutrophils % (Manual) Band Neutrophils % Lymphocytes % (Manual) Monocytes % (Manual) Eosinophils % (Manual) Platelet Estimate Large Platelets Basophilic Stippling Ovalocytes PT INR APTT Puncture Site Rr pCO2 57 H pO2 193 H HCO3 24.2 ABG pH 7.28 L ABG Total CO2 28.5 H ABG O2 Saturation 99.2 H ABG Base Excess -1.0 Jimenez Test Pos ABG Potassium 5.0 A-a O2 Difference 92.0 Respiratory Index 0.5 Sodium 135.0 Chloride 101.0 Glucose 168 H Lactate 1.5 Vent Mode Prvc Mechanical Rate 18 FiO2 50.0 Tidal Volume 450 PEEP 5 Potassium Carbon Dioxide Anion Gap BUN Creatinine Est GFR ( Amer) Est GFR (Non-Af Amer) POC Glucose (mg/dL) 212 H 182 H Random Glucose Calcium Phosphorus Magnesium Total Bilirubin AST ALT Alkaline Phosphatase Troponin I Total Protein Albumin Globulin Albumin/Globulin Ratio PTH Intact Whole Molec Arterial Blood Potassium 5.0 Urine Color Urine Clarity Urine pH Ur Specific [place] Urine Protein Urine Glucose (UA) Urine Ketones Urine Blood Urine Nitrate Urine Bilirubin Urine Urobilinogen Ur Leukocyte Esterase Urine WBC (Auto) Urine RBC (Auto) Urine WBC Clumps (Auto) Ur Squamous Epith Cells Urine Bacteria Urine Opiates Screen Urine Methadone Screen Ur Barbiturates Screen Ur Phencyclidine Scrn Ur Amphetamines Screen U Benzodiazepines Scrn U Oth Cocaine Metabols U Cannabinoids Screen 10/06/18 10/06/18 10/06/18 05:49 05:49 05:49 WBC 13.2 H RBC 4.01 Hgb 10.7 L Hct 34.2 MCV 85.2 MCH 26.6 L MCHC 31.2 L RDW 14.6 H Plt Count 138 MPV 9.8 Neut % (Auto) 78.9 H Lymph % (Auto) 8.6 L [place] % (Auto) 7.8 Eos % (Auto) 4.2 H Baso % (Auto) 0.5 Neut # (Auto) 10.4 H Lymph # (Auto) 1.1 [place] # (Auto) 1.0 H Eos # (Auto) 0.6 Baso # (Auto) 0.1 Neutrophils % (Manual) 73 Band Neutrophils % 5 H Lymphocytes % (Manual) 9 L Monocytes % (Manual) 10 Eosinophils % (Manual) 3 Platelet Estimate Normal Large Platelets Present Basophilic Stippling Slight Ovalocytes Slight PT 12.8 H INR 1.2 APTT 42 H Puncture Site pCO2 pO2 HCO3 ABG pH ABG Total CO2 ABG O2 Saturation ABG Base Excess Jimenez Test ABG Potassium A-a O2 Difference Respiratory Index Sodium 134 Chloride 96 L Glucose Lactate Vent Mode Mechanical Rate FiO2 Tidal Volume PEEP Potassium 3.9 Carbon Dioxide 28 Anion Gap 14 BUN 21 H Creatinine 3.4 H Est GFR ( Amer) 16 Est GFR (Non-Af Amer) 13 POC Glucose (mg/dL) Random Glucose 162 H D Calcium 8.4 L Phosphorus 3.4 Magnesium 1.7 Total Bilirubin 0.5 AST 91 H D ALT 96 H Alkaline Phosphatase 114 Troponin I Total Protein 6.4 Albumin 3.6 Globulin 2.7 Albumin/Globulin Ratio 1.3 PTH Intact Whole Molec Arterial Blood Potassium Urine Color Urine Clarity Urine pH Ur Specific [place] Urine Protein Urine Glucose (UA) Urine Ketones Urine Blood Urine Nitrate Urine Bilirubin Urine Urobilinogen Ur Leukocyte Esterase Urine WBC (Auto) Urine RBC (Auto) Urine WBC Clumps (Auto) Ur Squamous Epith Cells Urine Bacteria Urine Opiates Screen Urine Methadone Screen Ur Barbiturates Screen Ur Phencyclidine Scrn Ur Amphetamines Screen U Benzodiazepines Scrn U Oth Cocaine Metabols U Cannabinoids Screen 10/06/18 06:32 WBC RBC Hgb Hct MCV MCH MCHC RDW Plt Count MPV Neut % (Auto) Lymph % (Auto) [place] % (Auto) Eos % (Auto) Baso % (Auto) Neut # (Auto) Lymph # (Auto) [place] # (Auto) Eos # (Auto) Baso # (Auto) Neutrophils % (Manual) Band Neutrophils % Lymphocytes % (Manual) Monocytes % (Manual) Eosinophils % (Manual) Platelet Estimate Large Platelets Basophilic Stippling Ovalocytes PT INR APTT Puncture Site pCO2 pO2 HCO3 ABG pH ABG Total CO2 ABG O2 Saturation ABG Base Excess [place] Test ABG Potassium A-a O2 Difference Respiratory Index Sodium Chloride Glucose Lactate Vent Mode Mechanical Rate FiO2 Tidal Volume PEEP Potassium Carbon Dioxide Anion Gap BUN Creatinine Est GFR ( Amer) Est GFR (Non-Af Amer) POC Glucose (mg/dL) 168 H Random Glucose Calcium Phosphorus Magnesium Total Bilirubin AST ALT Alkaline Phosphatase Troponin I Total Protein Albumin Globulin Albumin/Globulin Ratio PTH Intact Whole Molec Arterial Blood Potassium Urine Color Urine Clarity Urine pH Ur Specific [place] Urine Protein Urine Glucose (UA) Urine Ketones Urine Blood Urine Nitrate Urine Bilirubin Urine Urobilinogen Ur Leukocyte Esterase Urine WBC (Auto) Urine RBC (Auto) Urine WBC Clumps (Auto) Ur Squamous Epith Cells Urine Bacteria Urine Opiates Screen Urine Methadone Screen Ur Barbiturates Screen Ur Phencyclidine Scrn Ur Amphetamines Screen U Benzodiazepines Scrn U Oth Cocaine Metabols U Cannabinoids Screen Radiology Impressions: Radiology Impressions Chest X-Ray 10/05/18 13:44 IMPRESSION: Endotracheal tube terminates 1.3 cm proximal to the kaylah. Diffuse haziness in the lungs may represent layering effusion or alveolar edema. Severe cardiomegaly. Head CT 10/05/18 14:19 IMPRESSION: No acute intracranial abnormality. Chest X-Ray 10/06/18 06:00 IMPRESSION: Endotracheal tube terminates approximately 3.9 cm above the kaylah. Right-sided IJ approach central venous catheter extends the cavoatrial junction. Moderate pulmonary venous congestion. Cardiomegaly. EKG/Cardiology Studies: Cardiology / EKG Studies 10/05/18 13:56 EKG [ELECTROCARDIOGRAM] Stat Comment: Mode Of Transportation: Reason For Exam: tachycardia Isolation: Contact Fingerstick Blood Sugar Results: 168 Critical Care Progress Note - Nutrition Nutrition: Nutrition Category Date Time Status NPO Diet [DIET] Diets 10/05/18 Breakfast Active Assessment/Plan (1) Acute on chronic renal failure Current Visit: Yes Status: Acute (2) Diabetic nephropathy associated with type 2 diabetes mellitus Current Visit: Yes Status: Acute (3) Uremia, acute Current Visit: Yes Status: Acute
[2018-10-06] MEDS ORDERED: Ferric Sodium Gluconat Complex 62.5 mg/5 ml Vial IVPB SCH (10:00)
[2018-10-06] MEDS: Epoetin Alfa 10,000 unit/ml Dialysis IV SCH (10:47)
[2018-10-06] MEDS ORDERED: Ferric Sodium Gluconat Complex 62.5 mg/5 ml Vial ONE (10:56)
[2018-10-06] MEDS: Ferric Sodium Gluconat Complex 125 MG in Sodium Chloride 0.9% 100 ML IVPB SCH (11:17)
--- NOTE | 2018-10-06 12:15 | CP.PCM.PN ---
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 Please see anesthesia record in chart for intraoperative record. In brief, patient came to OR yesterday, after receiving 50mcg fentanyl was noted to have jerking movements. Patient was unarousable with full jaw thrust, airway was immediately attended to with oral airway/BMV. Positive ETco2. Bradycardia noted at 30, atropine 0.8mg given. Narcan given in case of respiratory arrest. Asystole followed bradycardia. ACLS/Immediate chest compressions started, ETT inserted. 1mg EPI given and ROSC achieved. 1mg midazolam given after intubation in case of seizure. Patient taken to ICU, FSG>200, chemistry, Ct scan to follow. Code freeze initiated. Objective - Vital Signs/Intake and Output Vital Signs (last 24 hours): 133/51, hr 68, rr 18, sa02 100%, fi02 50% Temp Pulse Resp BP Pulse Ox 100.4 F H 69 18 133/51 L 100 10/08/18 08:00 10/08/18 11:00 10/08/18 11:00 10/08/18 10:28 10/08/18 11:00 Intake and Output: 10/06/18 10/06/18 06:59 18:59 Intake Total 354.9 84.8 Output Total 78 25 Balance 276.9 59.8 10/08/18 10/08/18 06:59 18:59 Intake Total 957.4 200 Output Total 30 5 Balance 927.4 195 - Medications Medications: Current Medications Acetaminophen (Tylenol 325mg Tab) 650 mg PO Q6H PRN PRN Reason: Pain, Mild (1-3) Last Admin: 10/06/18 11:15 Dose: 650 mg Aspirin (Ecotrin) 81 mg PO DAILY [facility] Last Admin: 10/06/18 11:45 Dose: 81 mg Calcium Acetate (Phoslo) 667 mg PO TIDCC [facility] Last Admin: 10/06/18 11:46 Dose: 667 mg Carvedilol (Coreg) 25 mg PO BID [facility] Epoetin Dedrick (Procrit) 10,000 unit IV TTS [facility] Last Admin: 10/06/18 10:47 Dose: Not Given Heparin Sodium (Porcine) (Heparin) 5,000 units SC Q12 [facility] Last Admin: 10/06/18 11:14 Dose: 5,000 units Hydralazine HCl (Apresoline) 50 mg PO BID [facility] Last Admin: 10/05/18 18:00 Dose: Not Given Hydrocortisone (Cortef) 5 mg PO DAILY [facility] Last Admin: 10/05/18 10:11 Dose: 5 mg Ferric Sodium Gluconate Complex 125 mg/ Sodium Chloride 110 mls @ 110 mls/hr IVPB DAILY [facility] Stop: 10/14/18 10:01 Last Admin: 10/06/18 11:17 Dose: 110 mls/hr Propofol (Diprivan) 1,000 mg in 100 mls @ 2.735 mls/hr IV .Q24H PRN; Protocol PRN Reason: TITRATE PER MD ORDER Last Admin: 10/06/18 06:00 Dose: 20.47 mcg/kg/min, 11.2 mls/hr Piperacillin Sod/Tazobactam Sod (Zosyn 2.25 Gm Iv Premix) 2.25 gm in 50 mls @ 100 mls/hr IVPB Q8 [facility]; Protocol Insulin Detemir (Levemir) 20 unit SC [facility] Last Admin: 10/05/18 22:00 Dose: 20 units Insulin Human Regular (Novolin R) 0 unit SC Q6H [facility]; Protocol Isosorbide Mononitrate (Imdur Er) 30 mg PO DAILY [facility] Last Admin: 10/06/18 11:16 Dose: 30 mg Levothyroxine Sodium (Synthroid) 50 mcg PO 0600 [facility] Last Admin: 10/06/18 06:58 Dose: 50 mcg Pantoprazole Sodium (Protonix Inj) 40 mg IVP DAILY [facility] Last Admin: 10/06/18 11:14 Dose: 40 mg Propofol (Diprivan) 100 mg IV TITR JOCELYN Rosuvastatin Calcium (Crestor) 10 mg PO HS [facility] Last Admin: 10/05/18 23:38 Dose: 10 mg - Labs Labs: 10/06/18 05:49 10/06/18 05:49 PT 12.8 SECONDS (9.7-12.2) H 10/06/18 05:49 INR 1.2 10/06/18 05:49 APTT 42 SECONDS (21-34) H 10/06/18 05:49 Microbiology 09/29/18 Unknown MRSA Culture (Admit) - Final Naris MRSA DETECTED Laboratory Results - last 72 hr 10/04/18 10/05/18 10/05/18 10:23 14:11 16:26 WBC RBC Hgb Hct MCV MCH MCHC RDW Plt Count MPV Neut % (Auto) Lymph % (Auto) [place] % (Auto) Eos % (Auto) Baso % (Auto) Neut # (Auto) Lymph # (Auto) [place] # (Auto) Eos # (Auto) Baso # (Auto) Neutrophils % (Manual) Band Neutrophils % Lymphocytes % (Manual) Monocytes % (Manual) Eosinophils % (Manual) Toxic Granulation Platelet Estimate Large Platelets Giant Platelets Polychromasia Hypochromasia (manual) Poikilocytosis (manual Basophilic Stippling Anisocytosis (manual) Ovalocytes Schistocytes PT INR APTT Puncture Site Rr pCO2 52 H pO2 391 H HCO3 28.4 H ABG pH 7.38 ABG Total CO2 32.4 H ABG O2 Saturation 99.2 H ABG Base Excess 4.4 H Jimenez Test Unable ABG Potassium 3.3 L A-a O2 Difference 257.0 Respiratory Index 0.7 Sodium 136.0 Chloride 105.0 Glucose 192 H Lactate 1.1 Vent Mode Prvc Mechanical Rate 14 FiO2 100.0 Tidal Volume 450 PEEP 5 Potassium Carbon Dioxide Anion Gap BUN Creatinine Est GFR ( Amer) Est GFR (Non-Af Amer) POC Glucose (mg/dL) 204 H Random Glucose Calcium Phosphorus Magnesium Total Bilirubin AST ALT Alkaline Phosphatase Total Creatine Kinase CK-MB (Mass) Troponin I Total Protein Albumin Globulin Albumin/Globulin Ratio PTH Intact Whole Molec 411 H Arterial Blood Potassium 3.3 L Urine Color Urine Clarity Urine pH Ur Specific [place] Urine Protein Urine Glucose (UA) Urine Ketones Urine Blood Urine Nitrate Urine Bilirubin Urine Urobilinogen Ur Leukocyte Esterase Urine WBC (Auto) Urine RBC (Auto) Urine WBC Clumps (Auto) Ur Squamous Epith Cells Urine Bacteria Urine Opiates Screen Urine Methadone Screen Ur Barbiturates Screen Ur Phencyclidine Scrn Ur Amphetamines Screen U Benzodiazepines Scrn U Oth Cocaine Metabols U Cannabinoids Screen 10/05/18 10/05/18 10/05/18 16:31 17:26 17:26 WBC 9.4 RBC 3.38 L Hgb 9.0 L Hct 28.8 L MCV 85.3 MCH 26.6 L MCHC 31.1 L RDW 14.4 Plt Count 121 L MPV 10.1 Neut % (Auto) 68.6 Lymph % (Auto) 13.4 L [place] % (Auto) 8.5 Eos % (Auto) 9.1 H Baso % (Auto) 0.4 Neut # (Auto) 6.4 Lymph # (Auto) 1.3 [place] # (Auto) 0.8 Eos # (Auto) 0.9 H Baso # (Auto) 0.0 Neutrophils % (Manual) Band Neutrophils % Lymphocytes % (Manual) Monocytes % (Manual) Eosinophils % (Manual) Toxic Granulation Platelet Estimate Large Platelets Giant Platelets Polychromasia Hypochromasia (manual) Poikilocytosis (manual Basophilic Stippling Anisocytosis (manual) Ovalocytes Schistocytes PT INR APTT Puncture Site pCO2 pO2 HCO3 ABG pH ABG Total CO2 ABG O2 Saturation ABG Base Excess Jimenez Test ABG Potassium A-a O2 Difference Respiratory Index Sodium 134 Chloride 98 Glucose Lactate Vent Mode Mechanical Rate FiO2 Tidal Volume PEEP Potassium 3.6 Carbon Dioxide 28 Anion Gap 11 BUN 17 Creatinine 3.3 H Est GFR ( Amer) 17 Est GFR (Non-Af Amer) 14 POC Glucose (mg/dL) 200 H Random Glucose 198 H D Calcium 8.2 L Phosphorus 2.8 Magnesium 1.6 Total Bilirubin 0.4 AST 155 H D ALT 108 H D Alkaline Phosphatase 96 Total Creatine Kinase CK-MB (Mass) Troponin I 0.0400 Total Protein 5.5 L Albumin 3.1 L Globulin 2.4 Albumin/Globulin Ratio 1.3 PTH Intact Whole Molec Arterial Blood Potassium Urine Color Urine Clarity Urine pH Ur Specific [place] Urine Protein Urine Glucose (UA) Urine Ketones Urine Blood Urine Nitrate Urine Bilirubin Urine Urobilinogen Ur Leukocyte Esterase Urine WBC (Auto) Urine RBC (Auto) Urine WBC Clumps (Auto) Ur Squamous Epith Cells Urine Bacteria Urine Opiates Screen Urine Methadone Screen Ur Barbiturates Screen Ur Phencyclidine Scrn Ur Amphetamines Screen U Benzodiazepines Scrn U Oth Cocaine Metabols U Cannabinoids Screen 10/05/18 10/05/18 10/05/18 17:26 19:47 21:08 WBC RBC Hgb Hct MCV MCH MCHC RDW Plt Count MPV Neut % (Auto) Lymph % (Auto) [place] % (Auto) Eos % (Auto) Baso % (Auto) Neut # (Auto) Lymph # (Auto) [place] # (Auto) Eos # (Auto) Baso # (Auto) Neutrophils % (Manual) Band Neutrophils % Lymphocytes % (Manual) Monocytes % (Manual) Eosinophils % (Manual) Toxic Granulation Platelet Estimate Large Platelets Giant Platelets Polychromasia Hypochromasia (manual) Poikilocytosis (manual Basophilic Stippling Anisocytosis (manual) Ovalocytes Schistocytes PT 13.0 H INR 1.2 APTT 38 H Puncture Site pCO2 pO2 HCO3 ABG pH ABG Total CO2 ABG O2 Saturation ABG Base Excess Jimenez Test ABG Potassium A-a O2 Difference Respiratory Index Sodium Chloride Glucose Lactate Vent Mode Mechanical Rate FiO2 Tidal Volume PEEP Potassium Carbon Dioxide Anion Gap BUN Creatinine Est GFR ( Amer) Est GFR (Non-Af Amer) POC Glucose (mg/dL) 211 H 230 H Random Glucose Calcium Phosphorus Magnesium Total Bilirubin AST ALT Alkaline Phosphatase Total Creatine Kinase CK-MB (Mass) Troponin I Total Protein Albumin Globulin Albumin/Globulin Ratio PTH Intact Whole Molec Arterial Blood Potassium Urine Color Urine Clarity Urine pH Ur Specific [place] Urine Protein Urine Glucose (UA) Urine Ketones Urine Blood Urine Nitrate Urine Bilirubin Urine Urobilinogen Ur Leukocyte Esterase Urine WBC (Auto) Urine RBC (Auto) Urine WBC Clumps (Auto) Ur Squamous Epith Cells Urine Bacteria Urine Opiates Screen Urine Methadone Screen Ur Barbiturates Screen Ur Phencyclidine Scrn Ur Amphetamines Screen U Benzodiazepines Scrn U Oth Cocaine Metabols U Cannabinoids Screen 10/05/18 10/05/18 10/06/18 22:32 23:29 00:07 WBC RBC Hgb Hct MCV MCH MCHC RDW Plt Count MPV Neut % (Auto) Lymph % (Auto) [place] % (Auto) Eos % (Auto) Baso % (Auto) Neut # (Auto) Lymph # (Auto) [place] # (Auto) Eos # (Auto) Baso # (Auto) Neutrophils % (Manual) Band Neutrophils % Lymphocytes % (Manual) Monocytes % (Manual) Eosinophils % (Manual) Toxic Granulation Platelet Estimate Large Platelets Giant Platelets Polychromasia Hypochromasia (manual) Poikilocytosis (manual Basophilic Stippling Anisocytosis (manual) Ovalocytes Schistocytes PT INR APTT Puncture Site pCO2 pO2 HCO3 ABG pH ABG Total CO2 ABG O2 Saturation ABG Base Excess Jimenez Test ABG Potassium A-a O2 Difference Respiratory Index Sodium Chloride Glucose Lactate Vent Mode Mechanical Rate FiO2 Tidal Volume PEEP Potassium Carbon Dioxide Anion Gap BUN Creatinine Est GFR ( Amer) Est GFR (Non-Af Amer) POC Glucose (mg/dL) 248 H 237 H 249 H Random Glucose Calcium Phosphorus Magnesium Total Bilirubin AST ALT Alkaline Phosphatase Total Creatine Kinase CK-MB (Mass) Troponin I Total Protein Albumin Globulin Albumin/Globulin Ratio PTH Intact Whole Molec Arterial Blood Potassium Urine Color Urine Clarity Urine pH Ur Specific [place] Urine Protein Urine Glucose (UA) Urine Ketones Urine Blood Urine Nitrate Urine Bilirubin Urine Urobilinogen Ur Leukocyte Esterase Urine WBC (Auto) Urine RBC (Auto) Urine WBC Clumps (Auto) Ur Squamous Epith Cells Urine Bacteria Urine Opiates Screen Urine Methadone Screen Ur Barbiturates Screen Ur Phencyclidine Scrn Ur Amphetamines Screen U Benzodiazepines Scrn U Oth Cocaine Metabols U Cannabinoids Screen 10/06/18 10/06/18 10/06/18 01:03 01:33 01:33 WBC 12.5 H RBC 3.78 L Hgb 10.2 L Hct 32.5 L MCV 86.2 MCH 27.0 MCHC 31.4 L RDW 14.6 H Plt Count 125 L MPV 10.5 Neut % (Auto) 79.8 H Lymph % (Auto) 7.2 L [place] % (Auto) 8.6 Eos % (Auto) 4.0 Baso % (Auto) 0.4 Neut # (Auto) 9.9 H Lymph # (Auto) 0.9 L [place] # (Auto) 1.1 H Eos # (Auto) 0.5 Baso # (Auto) 0.0 Neutrophils % (Manual) 83 H Band Neutrophils % 2 Lymphocytes % (Manual) 6 L Monocytes % (Manual) 9 Eosinophils % (Manual) Toxic Granulation Platelet Estimate Slightly decreased L Large Platelets Giant Platelets Polychromasia Hypochromasia (manual) Poikilocytosis (manual Basophilic Stippling Anisocytosis (manual) Ovalocytes Schistocytes PT 13.0 H INR 1.2 APTT 41 H Puncture Site pCO2 pO2 HCO3 ABG pH ABG Total CO2 ABG O2 Saturation ABG Base Excess Jimenez Test ABG Potassium A-a O2 Difference Respiratory Index Sodium Chloride Glucose Lactate Vent Mode Mechanical Rate FiO2 Tidal Volume PEEP Potassium Carbon Dioxide Anion Gap BUN Creatinine Est GFR ( Amer) Est GFR (Non-Af Amer) POC Glucose (mg/dL) 226 H Random Glucose Calcium Phosphorus Magnesium Total Bilirubin AST ALT Alkaline Phosphatase Total Creatine Kinase CK-MB (Mass) Troponin I Total Protein Albumin Globulin Albumin/Globulin Ratio PTH Intact Whole Molec Arterial Blood Potassium Urine Color Urine Clarity Urine pH Ur Specific [place] Urine Protein Urine Glucose (UA) Urine Ketones Urine Blood Urine Nitrate Urine Bilirubin Urine Urobilinogen Ur Leukocyte Esterase Urine WBC (Auto) Urine RBC (Auto) Urine WBC Clumps (Auto) Ur Squamous Epith Cells Urine Bacteria Urine Opiates Screen Urine Methadone Screen Ur Barbiturates Screen Ur Phencyclidine Scrn Ur Amphetamines Screen U Benzodiazepines Scrn U Oth Cocaine Metabols U Cannabinoids Screen 10/06/18 10/06/18 10/06/18 01:33 01:33 01:33 WBC RBC Hgb Hct MCV MCH MCHC RDW Plt Count MPV Neut % (Auto) Lymph % (Auto) [place] % (Auto) Eos % (Auto) Baso % (Auto) Neut # (Auto) Lymph # (Auto) [place] # (Auto) Eos # (Auto) Baso # (Auto) Neutrophils % (Manual) Band Neutrophils % Lymphocytes % (Manual) Monocytes % (Manual) Eosinophils % (Manual) Toxic Granulation Platelet Estimate Large Platelets Giant Platelets Polychromasia Hypochromasia (manual) Poikilocytosis (manual Basophilic Stippling Anisocytosis (manual) Ovalocytes Schistocytes PT INR APTT Puncture Site pCO2 pO2 HCO3 ABG pH ABG Total CO2 ABG O2 Saturation ABG Base Excess Jimenez Test ABG Potassium A-a O2 Difference Respiratory Index Sodium 133 Chloride 97 L Glucose Lactate Vent Mode Mechanical Rate FiO2 Tidal Volume PEEP Potassium 4.0 Carbon Dioxide 29 Anion Gap 12 BUN 20 H Creatinine 3.2 H Est GFR ( Amer) 17 Est GFR (Non-Af Amer) 14 POC Glucose (mg/dL) Random Glucose 211 H Calcium 8.1 L Phosphorus Magnesium 1.6 Total Bilirubin AST ALT Alkaline Phosphatase Total Creatine Kinase CK-MB (Mass) Troponin I Total Protein Albumin Globulin Albumin/Globulin Ratio PTH Intact Whole Molec Arterial Blood Potassium Urine Color Yellow Urine Clarity Turbid Urine pH 7.0 Ur Specific [place] 1.022 Urine Protein 3+ H Urine Glucose (UA) 1+ Urine Ketones Trace Urine Blood Negative Urine Nitrate Negative Urine Bilirubin Negative Urine Urobilinogen Normal Ur Leukocyte Esterase 3+ H Urine WBC (Auto) 1438 H Urine RBC (Auto) 4 H Urine WBC Clumps (Auto) Many H Ur Squamous Epith Cells 2 Urine Bacteria Many H Urine Opiates Screen Negative Urine Methadone Screen Negative Ur Barbiturates Screen Negative Ur Phencyclidine Scrn Negative Ur Amphetamines Screen Negative U Benzodiazepines Scrn Negative U Oth Cocaine Metabols Negative U Cannabinoids Screen Negative 10/06/18 10/06/18 10/06/18 01:55 03:25 04:16 WBC RBC Hgb Hct MCV MCH MCHC RDW Plt Count MPV Neut % (Auto) Lymph % (Auto) [place] % (Auto) Eos % (Auto) Baso % (Auto) Neut # (Auto) Lymph # (Auto) [place] # (Auto) Eos # (Auto) Baso # (Auto) Neutrophils % (Manual) Band Neutrophils % Lymphocytes % (Manual) Monocytes % (Manual) Eosinophils % (Manual) Toxic Granulation Platelet Estimate Large Platelets Giant Platelets Polychromasia Hypochromasia (manual) Poikilocytosis (manual Basophilic Stippling Anisocytosis (manual) Ovalocytes Schistocytes PT INR APTT Puncture Site pCO2 pO2 HCO3 ABG pH ABG Total CO2 ABG O2 Saturation ABG Base Excess Jimenez Test ABG Potassium A-a O2 Difference Respiratory Index Sodium Chloride Glucose Lactate Vent Mode Mechanical Rate FiO2 Tidal Volume PEEP Potassium Carbon Dioxide Anion Gap BUN Creatinine Est GFR ( Amer) Est GFR (Non-Af Amer) POC Glucose (mg/dL) 232 H 217 H 212 H Random Glucose Calcium Phosphorus Magnesium Total Bilirubin AST ALT Alkaline Phosphatase Total Creatine Kinase CK-MB (Mass) Troponin I Total Protein Albumin Globulin Albumin/Globulin Ratio PTH Intact Whole Molec Arterial Blood Potassium Urine Color Urine Clarity Urine pH Ur Specific [place] Urine Protein Urine Glucose (UA) Urine Ketones Urine Blood Urine Nitrate Urine Bilirubin Urine Urobilinogen Ur Leukocyte Esterase Urine WBC (Auto) Urine RBC (Auto) Urine WBC Clumps (Auto) Ur Squamous Epith Cells Urine Bacteria Urine Opiates Screen Urine Methadone Screen Ur Barbiturates Screen Ur Phencyclidine Scrn Ur Amphetamines Screen U Benzodiazepines Scrn U Oth Cocaine Metabols U Cannabinoids Screen 10/06/18 10/06/18 10/06/18 04:40 05:11 05:49 WBC 13.2 H RBC 4.01 Hgb 10.7 L Hct 34.2 MCV 85.2 MCH 26.6 L MCHC 31.2 L RDW 14.6 H Plt Count 138 MPV 9.8 Neut % (Auto) 78.9 H Lymph % (Auto) 8.6 L [place] % (Auto) 7.8 Eos % (Auto) 4.2 H Baso % (Auto) 0.5 Neut # (Auto) 10.4 H Lymph # (Auto) 1.1 [place] # (Auto) 1.0 H Eos # (Auto) 0.6 Baso # (Auto) 0.1 Neutrophils % (Manual) 73 Band Neutrophils % 5 H Lymphocytes % (Manual) 9 L Monocytes % (Manual) 10 Eosinophils % (Manual) 3 Toxic Granulation Platelet Estimate Normal Large Platelets Present Giant Platelets Polychromasia Hypochromasia (manual) Poikilocytosis (manual Basophilic Stippling Slight Anisocytosis (manual) Ovalocytes Slight Schistocytes PT INR APTT Puncture Site Rr pCO2 57 H pO2 193 H HCO3 24.2 ABG pH 7.28 L ABG Total CO2 28.5 H ABG O2 Saturation 99.2 H ABG Base Excess -1.0 Jimenez Test Pos ABG Potassium 5.0 A-a O2 Difference 92.0 Respiratory Index 0.5 Sodium 135.0 Chloride 101.0 Glucose 168 H Lactate 1.5 Vent Mode Prvc Mechanical Rate 18 FiO2 50.0 Tidal Volume 450 PEEP 5 Potassium Carbon Dioxide Anion Gap BUN Creatinine Est GFR ( Amer) Est GFR (Non-Af Amer) POC Glucose (mg/dL) 182 H Random Glucose Calcium Phosphorus Magnesium Total Bilirubin AST ALT Alkaline Phosphatase Total Creatine Kinase CK-MB (Mass) Troponin I Total Protein Albumin Globulin Albumin/Globulin Ratio PTH Intact Whole Molec Arterial Blood Potassium 5.0 Urine Color Urine Clarity Urine pH Ur Specific [place] Urine Protein Urine Glucose (UA) Urine Ketones Urine Blood Urine Nitrate Urine Bilirubin Urine Urobilinogen Ur Leukocyte Esterase Urine WBC (Auto) Urine RBC (Auto) Urine WBC Clumps (Auto) Ur Squamous Epith Cells Urine Bacteria Urine Opiates Screen Urine Methadone Screen Ur Barbiturates Screen Ur Phencyclidine Scrn Ur Amphetamines Screen U Benzodiazepines Scrn U Oth Cocaine Metabols U Cannabinoids Screen 10/06/18 10/06/18 10/06/18 05:49 05:49 06:32 WBC RBC Hgb Hct MCV MCH MCHC RDW Plt Count MPV Neut % (Auto) Lymph % (Auto) [place] % (Auto) Eos % (Auto) Baso % (Auto) Neut # (Auto) Lymph # (Auto) [place] # (Auto) Eos # (Auto) Baso # (Auto) Neutrophils % (Manual) Band Neutrophils % Lymphocytes % (Manual) Monocytes % (Manual) Eosinophils % (Manual) Toxic Granulation Platelet Estimate Large Platelets Giant Platelets Polychromasia Hypochromasia (manual) Poikilocytosis (manual Basophilic Stippling Anisocytosis (manual) Ovalocytes Schistocytes PT 12.8 H INR 1.2 APTT 42 H Puncture Site pCO2 pO2 HCO3 ABG pH ABG Total CO2 ABG O2 Saturation ABG Base Excess Jimenez Test ABG Potassium A-a O2 Difference Respiratory Index Sodium 134 Chloride 96 L Glucose Lactate Vent Mode Mechanical Rate FiO2 Tidal Volume PEEP Potassium 3.9 Carbon Dioxide 28 Anion Gap 14 BUN 21 H Creatinine 3.4 H Est GFR ( Amer) 16 Est GFR (Non-Af Amer) 13 POC Glucose (mg/dL) 168 H Random Glucose 162 H D Calcium 8.4 L Phosphorus 3.4 Magnesium 1.7 Total Bilirubin 0.5 AST 91 H D ALT 96 H Alkaline Phosphatase 114 Total Creatine Kinase CK-MB (Mass) Troponin I Total Protein 6.4 Albumin 3.6 Globulin 2.7 Albumin/Globulin Ratio 1.3 PTH Intact Whole Molec Arterial Blood Potassium Urine Color Urine Clarity Urine pH Ur Specific [place] Urine Protein Urine Glucose (UA) Urine Ketones Urine Blood Urine Nitrate Urine Bilirubin Urine Urobilinogen Ur Leukocyte Esterase Urine WBC (Auto) Urine RBC (Auto) Urine WBC Clumps (Auto) Ur Squamous Epith Cells Urine Bacteria Urine Opiates Screen Urine Methadone Screen Ur Barbiturates Screen Ur Phencyclidine Scrn Ur Amphetamines Screen U Benzodiazepines Scrn U Oth Cocaine Metabols U Cannabinoids Screen 10/06/18 10/06/18 10/06/18 07:26 08:12 11:02 WBC RBC Hgb Hct MCV MCH MCHC RDW Plt Count MPV Neut % (Auto) Lymph % (Auto) [place] % (Auto) Eos % (Auto) Baso % (Auto) Neut # (Auto) Lymph # (Auto) [place] # (Auto) Eos # (Auto) Baso # (Auto) Neutrophils % (Manual) Band Neutrophils % Lymphocytes % (Manual) Monocytes % (Manual) Eosinophils % (Manual) Toxic Granulation Platelet Estimate Large Platelets Giant Platelets Polychromasia Hypochromasia (manual) Poikilocytosis (manual Basophilic Stippling Anisocytosis (manual) Ovalocytes Schistocytes PT INR APTT Puncture Site pCO2 pO2 HCO3 ABG pH ABG Total CO2 ABG O2 Saturation ABG Base Excess Jimenez Test ABG Potassium A-a O2 Difference Respiratory Index Sodium Chloride Glucose Lactate Vent Mode Mechanical Rate FiO2 Tidal Volume PEEP Potassium Carbon Dioxide Anion Gap BUN Creatinine Est GFR ( Amer) Est GFR (Non-Af Amer) POC Glucose (mg/dL) 174 H 139 H 97 Random Glucose Calcium Phosphorus Magnesium Total Bilirubin AST ALT Alkaline Phosphatase Total Creatine Kinase CK-MB (Mass) Troponin I Total Protein Albumin Globulin Albumin/Globulin Ratio PTH Intact Whole Molec Arterial Blood Potassium Urine Color Urine Clarity Urine pH Ur Specific [place] Urine Protein Urine Glucose (UA) Urine Ketones Urine Blood Urine Nitrate Urine Bilirubin Urine Urobilinogen Ur Leukocyte Esterase Urine WBC (Auto) Urine RBC (Auto) Urine WBC Clumps (Auto) Ur Squamous Epith Cells Urine Bacteria Urine Opiates Screen Urine Methadone Screen Ur Barbiturates Screen Ur Phencyclidine Scrn Ur Amphetamines Screen U Benzodiazepines Scrn U Oth Cocaine Metabols U Cannabinoids Screen 10/06/18 10/06/18 10/06/18 13:53 13:53 13:53 WBC 11.6 H RBC 3.73 L Hgb 10.0 L Hct 31.5 L MCV 84.3 MCH 26.7 L MCHC 31.7 L RDW 14.5 Plt Count 115 L D MPV 9.9 Neut % (Auto) 72.7 Lymph % (Auto) 8.2 L [place] % (Auto) 9.2 Eos % (Auto) 9.4 H Baso % (Auto) 0.5 Neut # (Auto) 8.5 H Lymph # (Auto) 0.9 L [place] # (Auto) 1.1 H Eos # (Auto) 1.1 H Baso # (Auto) 0.1 Neutrophils % (Manual) 79 H Band Neutrophils % Lymphocytes % (Manual) 6 L Monocytes % (Manual) 9 Eosinophils % (Manual) 6 H Toxic Granulation Platelet Estimate Slightly decreased L Large Platelets Giant Platelets Polychromasia Hypochromasia (manual) Slight Poikilocytosis (manual Basophilic Stippling Anisocytosis (manual) Ovalocytes Schistocytes PT 13.6 H INR 1.2 APTT 38 H Puncture Site pCO2 pO2 HCO3 ABG pH ABG Total CO2 ABG O2 Saturation ABG Base Excess Jimenez Test ABG Potassium A-a O2 Difference Respiratory Index Sodium 135 Chloride 99 Glucose Lactate Vent Mode Mechanical Rate FiO2 Tidal Volume PEEP Potassium 3.7 Carbon Dioxide 30 Anion Gap 10 BUN 23 H Creatinine 3.8 H Est GFR ( Amer) 14 Est GFR (Non-Af Amer) 12 POC Glucose (mg/dL) Random Glucose 71 D Calcium 8.3 L Phosphorus 3.2 Magnesium 1.7 Total Bilirubin 0.5 AST 67 H D ALT 78 H Alkaline Phosphatase 100 Total Creatine Kinase CK-MB (Mass) Troponin I Total Protein 5.8 L Albumin 3.2 L Globulin 2.6 Albumin/Globulin Ratio 1.2 PTH Intact Whole Molec Arterial Blood Potassium Urine Color Urine Clarity Urine pH Ur Specific [place] Urine Protein Urine Glucose (UA) Urine Ketones Urine Blood Urine Nitrate Urine Bilirubin Urine Urobilinogen Ur Leukocyte Esterase Urine WBC (Auto) Urine RBC (Auto) Urine WBC Clumps (Auto) Ur Squamous Epith Cells Urine Bacteria Urine Opiates Screen Urine Methadone Screen Ur Barbiturates Screen Ur Phencyclidine Scrn Ur Amphetamines Screen U Benzodiazepines Scrn U Oth Cocaine Metabols U Cannabinoids Screen 10/06/18 10/06/18 10/06/18 14:30 16:02 16:05 WBC RBC Hgb Hct MCV MCH MCHC RDW Plt Count MPV Neut % (Auto) Lymph % (Auto) [place] % (Auto) Eos % (Auto) Baso % (Auto) Neut # (Auto) Lymph # (Auto) [place] # (Auto) Eos # (Auto) Baso # (Auto) Neutrophils % (Manual) Band Neutrophils % Lymphocytes % (Manual) Monocytes % (Manual) Eosinophils % (Manual) Toxic Granulation Platelet Estimate Large Platelets Giant Platelets Polychromasia Hypochromasia (manual) Poikilocytosis (manual Basophilic Stippling Anisocytosis (manual) Ovalocytes Schistocytes PT INR APTT Puncture Site pCO2 pO2 HCO3 ABG pH ABG Total CO2 ABG O2 Saturation ABG Base Excess Jimenez Test ABG Potassium A-a O2 Difference Respiratory Index Sodium Chloride Glucose Lactate Vent Mode Mechanical Rate FiO2 Tidal Volume PEEP Potassium Carbon Dioxide Anion Gap BUN Creatinine Est GFR ( Amer) Est GFR (Non-Af Amer) POC Glucose (mg/dL) 66 72 Random Glucose Calcium Phosphorus Magnesium Total Bilirubin AST ALT Alkaline Phosphatase Total Creatine Kinase 386 H CK-MB (Mass) Troponin I 0.0300 Total Protein Albumin Globulin Albumin/Globulin Ratio PTH Intact Whole Molec Arterial Blood Potassium Urine Color Urine Clarity Urine pH Ur Specific [place] Urine Protein Urine Glucose (UA) Urine Ketones Urine Blood Urine Nitrate Urine Bilirubin Urine Urobilinogen Ur Leukocyte Esterase Urine WBC (Auto) Urine RBC (Auto) Urine WBC Clumps (Auto) Ur Squamous Epith Cells Urine Bacteria Urine Opiates Screen Urine Methadone Screen Ur Barbiturates Screen Ur Phencyclidine Scrn Ur Amphetamines Screen U Benzodiazepines Scrn U Oth Cocaine Metabols U Cannabinoids Screen 10/06/18 10/06/18 10/06/18 17:00 17:03 18:10 WBC RBC Hgb Hct MCV MCH MCHC RDW Plt Count MPV Neut % (Auto) Lymph % (Auto) [place] % (Auto) Eos % (Auto) Baso % (Auto) Neut # (Auto) Lymph # (Auto) [place] # (Auto) Eos # (Auto) Baso # (Auto) Neutrophils % (Manual) Band Neutrophils % Lymphocytes % (Manual) Monocytes % (Manual) Eosinophils % (Manual) Toxic Granulation Platelet Estimate Large Platelets Giant Platelets Polychromasia Hypochromasia (manual) Poikilocytosis (manual Basophilic Stippling Anisocytosis (manual) Ovalocytes Schistocytes PT INR APTT Puncture Site pCO2 pO2 HCO3 ABG pH ABG Total CO2 ABG O2 Saturation ABG Base Excess Jim[place] Test ABG Potassium A-a O2 Difference Respiratory Index Sodium Chloride Glucose Lactate Vent Mode Mechanical Rate FiO2 Tidal Volume PEEP Potassium Carbon Dioxide Anion Gap BUN Creatinine Est GFR ( Amer) Est GFR (Non-Af Amer) POC Glucose (mg/dL) 64 L 68 196 H Random Glucose Calcium Phosphorus Magnesium Total Bilirubin AST ALT Alkaline Phosphatase Total Creatine Kinase CK-MB (Mass) Troponin I Total Protein Albumin Globulin Albumin/Globulin Ratio PTH Intact Whole Molec Arterial Blood Potassium Urine Color Urine Clarity Urine pH Ur Specific [place] Urine Protein Urine Glucose (UA) Urine Ketones Urine Blood Urine Nitrate Urine Bilirubin Urine Urobilinogen Ur Leukocyte Esterase Urine WBC (Auto) Urine RBC (Auto) Urine WBC Clumps (Auto) Ur Squamous Epith Cells Urine Bacteria Urine Opiates Screen Urine Methadone Screen Ur Barbiturates Screen Ur Phencyclidine Scrn Ur Amphetamines Screen U Benzodiazepines Scrn U Oth Cocaine Metabols U Cannabinoids Screen 10/06/18 10/06/18 10/06/18 20:01 21:03 21:04 WBC 12.1 H RBC 3.96 Hgb 10.5 L Hct 33.5 L MCV 84.6 MCH 26.5 L MCHC 31.3 L RDW 14.9 H Plt Count 119 L MPV 9.1 Neut % (Auto) Lymph % (Auto) [place] % (Auto) Eos % (Auto) Baso % (Auto) Neut # (Auto) Lymph # (Auto) [place] # (Auto) Eos # (Auto) Baso # (Auto) Neutrophils % (Manual) Band Neutrophils % Lymphocytes % (Manual) Monocytes % (Manual) Eosinophils % (Manual) Toxic Granulation Platelet Estimate Large Platelets Giant Platelets Polychromasia Hypochromasia (manual) Poikilocytosis (manual Basophilic Stippling Anisocytosis (manual) Ovalocytes Schistocytes PT INR APTT Puncture Site pCO2 pO2 HCO3 ABG pH ABG Total CO2 ABG O2 Saturation ABG Base Excess Jim[place] Test ABG Potassium A-a O2 Difference Respiratory Index Sodium Chloride Glucose Lactate Vent Mode Mechanical Rate FiO2 Tidal Volume PEEP Potassium Carbon Dioxide Anion Gap BUN Creatinine Est GFR ( Amer) Est GFR (Non-Af Amer) POC Glucose (mg/dL) 119 H 91 Random Glucose Calcium Phosphorus Magnesium Total Bilirubin AST ALT Alkaline Phosphatase Total Creatine Kinase CK-MB (Mass) Troponin I Total Protein Albumin Globulin Albumin/Globulin Ratio PTH Intact Whole Molec Arterial Blood Potassium Urine Color Urine Clarity Urine pH Ur Specific [place] Urine Protein Urine Glucose (UA) Urine Ketones Urine Blood Urine Nitrate Urine Bilirubin Urine Urobilinogen Ur Leukocyte Esterase Urine WBC (Auto) Urine RBC (Auto) Urine WBC Clumps (Auto) Ur Squamous Epith Cells Urine Bacteria Urine Opiates Screen Urine Methadone Screen Ur Barbiturates Screen Ur Phencyclidine Scrn Ur Amphetamines Screen U Benzodiazepines Scrn U Oth Cocaine Metabols U Cannabinoids Screen 10/06/18 10/06/18 10/06/18 21:04 21:04 21:58 WBC RBC Hgb Hct MCV MCH MCHC RDW Plt Count MPV Neut % (Auto) Lymph % (Auto) [place] % (Auto) Eos % (Auto) Baso % (Auto) Neut # (Auto) Lymph # (Auto) [place] # (Auto) Eos # (Auto) Baso # (Auto) Neutrophils % (Manual) Band Neutrophils % Lymphocytes % (Manual) Monocytes % (Manual) Eosinophils % (Manual) Toxic Granulation Platelet Estimate Large Platelets Giant Platelets Polychromasia Hypochromasia (manual) Poikilocytosis (manual Basophilic Stippling Anisocytosis (manual) Ovalocytes Schistocytes PT 13.9 H INR 1.3 APTT 45 H D Puncture Site pCO2 pO2 HCO3 ABG pH ABG Total CO2 ABG O2 Saturation ABG Base Excess Jim[place] Test ABG Potassium A-a O2 Difference Respiratory Index Sodium 136 Chloride 97 L Glucose Lactate Vent Mode Mechanical Rate FiO2 Tidal Volume PEEP Potassium 4.1 Carbon Dioxide 30 Anion Gap 12 BUN 25 H Creatinine 3.8 H Est GFR ( Amer) 14 Est GFR (Non-Af Amer) 12 POC Glucose (mg/dL) 85 Random Glucose 94 D Calcium 8.4 L Phosphorus 3.7 Magnesium 1.7 Total Bilirubin 0.6 AST 65 H ALT 78 H Alkaline Phosphatase 105 Total Creatine Kinase 412 H CK-MB (Mass) 8.78 H Troponin I 0.0250 Total Protein 6.2 L Albumin 3.5 Globulin 2.7 Albumin/Globulin Ratio 1.3 PTH Intact Whole Molec Arterial Blood Potassium Urine Color Urine Clarity Urine pH Ur Specific [place] Urine Protein Urine Glucose (UA) Urine Ketones Urine Blood Urine Nitrate Urine Bilirubin Urine Urobilinogen Ur Leukocyte Esterase Urine WBC (Auto) Urine RBC (Auto) Urine WBC Clumps (Auto) Ur Squamous Epith Cells Urine Bacteria Urine Opiates Screen Urine Methadone Screen Ur Barbiturates Screen Ur Phencyclidine Scrn Ur Amphetamines Screen U Benzodiazepines Scrn U Oth Cocaine Metabols U Cannabinoids Screen 10/06/18 10/06/18 10/07/18 22:55 23:26 01:23 WBC RBC Hgb Hct MCV MCH MCHC RDW Plt Count MPV Neut % (Auto) Lymph % (Auto) [place] % (Auto) Eos % (Auto) Baso % (Auto) Neut # (Auto) Lymph # (Auto) [place] # (Auto) Eos # (Auto) Baso # (Auto) Neutrophils % (Manual) Band Neutrophils % Lymphocytes % (Manual) Monocytes % (Manual) Eosinophils % (Manual) Toxic Granulation Platelet Estimate Large Platelets Giant Platelets Polychromasia Hypochromasia (manual) Poikilocytosis (manual Basophilic Stippling Anisocytosis (manual) Ovalocytes Schistocytes PT INR APTT Puncture Site pCO2 pO2 HCO3 ABG pH ABG Total CO2 ABG O2 Saturation ABG Base Excess Jim[place] Test ABG Potassium A-a O2 Difference Respiratory Index Sodium Chloride Glucose Lactate Vent Mode Mechanical Rate FiO2 Tidal Volume PEEP Potassium Carbon Dioxide Anion Gap BUN Creatinine Est GFR ( Amer) Est GFR (Non-Af Amer) POC Glucose (mg/dL) 72 80 73 Random Glucose Calcium Phosphorus Magnesium Total Bilirubin AST ALT Alkaline Phosphatase Total Creatine Kinase CK-MB (Mass) Troponin I Total Protein Albumin Globulin Albumin/Globulin Ratio PTH Intact Whole Molec Arterial Blood Potassium Urine Color Urine Clarity Urine pH Ur Specific [place] Urine Protein Urine Glucose (UA) Urine Ketones Urine Blood Urine Nitrate Urine Bilirubin Urine Urobilinogen Ur Leukocyte Esterase Urine WBC (Auto) Urine RBC (Auto) Urine WBC Clumps (Auto) Ur Squamous Epith Cells Urine Bacteria Urine Opiates Screen Urine Methadone Screen Ur Barbiturates Screen Ur Phencyclidine Scrn Ur Amphetamines Screen U Benzodiazepines Scrn U Oth Cocaine Metabols U Cannabinoids Screen 10/07/18 10/07/18 10/07/18 02:11 03:16 03:19 WBC RBC Hgb Hct MCV MCH MCHC RDW Plt Count MPV Neut % (Auto) Lymph % (Auto) [place] % (Auto) Eos % (Auto) Baso % (Auto) Neut # (Auto) Lymph # (Auto) [place] # (Auto) Eos # (Auto) Baso # (Auto) Neutrophils % (Manual) Band Neutrophils % Lymphocytes % (Manual) Monocytes % (Manual) Eosinophils % (Manual) Toxic Granulation Platelet Estimate Large Platelets Giant Platelets Polychromasia Hypochromasia (manual) Poikilocytosis (manual Basophilic Stippling Anisocytosis (manual) Ovalocytes Schistocytes PT INR APTT Puncture Site pCO2 pO2 HCO3 ABG pH ABG Total CO2 ABG O2 Saturation ABG Base Excess [place] Test ABG Potassium A-a O2 Difference Respiratory Index Sodium Chloride Glucose Lactate Vent Mode Mechanical Rate FiO2 Tidal Volume PEEP Potassium Carbon Dioxide Anion Gap BUN Creatinine Est GFR ( Amer) Est GFR (Non-Af Amer) POC Glucose (mg/dL) 76 68 71 Random Glucose Calcium Phosphorus Magnesium Total Bilirubin AST ALT Alkaline Phosphatase Total Creatine Kinase CK-MB (Mass) Troponin I Total Protein Albumin Globulin Albumin/Globulin Ratio PTH Intact Whole Molec Arterial Blood Potassium Urine Color Urine Clarity Urine pH Ur Specific [place] Urine Protein Urine Glucose (UA) Urine Ketones Urine Blood Urine Nitrate Urine Bilirubin Urine Urobilinogen Ur Leukocyte Esterase Urine WBC (Auto) Urine RBC (Auto) Urine WBC Clumps (Auto) Ur Squamous Epith Cells Urine Bacteria Urine Opiates Screen Urine Methadone Screen Ur Barbiturates Screen Ur Phencyclidine Scrn Ur Amphetamines Screen U Benzodiazepines Scrn U Oth Cocaine Metabols U Cannabinoids Screen 10/07/18 10/07/18 10/07/18 04:15 04:20 05:07 WBC RBC Hgb Hct MCV MCH MCHC RDW Plt Count MPV Neut % (Auto) Lymph % (Auto) [place] % (Auto) Eos % (Auto) Baso % (Auto) Neut # (Auto) Lymph # (Auto) [place] # (Auto) Eos # (Auto) Baso # (Auto) Neutrophils % (Manual) Band Neutrophils % Lymphocytes % (Manual) Monocytes % (Manual) Eosinophils % (Manual) Toxic Granulation Platelet Estimate Large Platelets Giant Platelets Polychromasia Hypochromasia (manual) Poikilocytosis (manual Basophilic Stippling Anisocytosis (manual) Ovalocytes Schistocytes PT INR APTT Puncture Site R rad pCO2 53 H pO2 125 H HCO3 25.7 ABG pH 7.33 L ABG Total CO2 29.5 H ABG O2 Saturation 98.9 H ABG Base Excess 1.0 Jim[place] Test Pos ABG Potassium 3.8 A-a O2 Difference 165.0 Respiratory Index 1.3 Sodium 134.0 Chloride 102.0 Glucose 170 H Lactate 1.1 Vent Mode Prvc Mechanical Rate 18 FiO2 50.0 Tidal Volume 450 PEEP 5 Potassium Carbon Dioxide Anion Gap BUN Creatinine Est GFR ( Amer) Est GFR (Non-Af Amer) POC Glucose (mg/dL) 68 61 L Random Glucose Calcium Phosphorus Magnesium Total Bilirubin AST ALT Alkaline Phosphatase Total Creatine Kinase CK-MB (Mass) Troponin I Total Protein Albumin Globulin Albumin/Globulin Ratio PTH Intact Whole Molec Arterial Blood Potassium 3.8 Urine Color Urine Clarity Urine pH Ur Specific [place] Urine Protein Urine Glucose (UA) Urine Ketones Urine Blood Urine Nitrate Urine Bilirubin Urine Urobilinogen Ur Leukocyte Esterase Urine WBC (Auto) Urine RBC (Auto) Urine WBC Clumps (Auto) Ur Squamous Epith Cells Urine Bacteria Urine Opiates Screen Urine Methadone Screen Ur Barbiturates Screen Ur Phencyclidine Scrn Ur Amphetamines Screen U Benzodiazepines Scrn U Oth Cocaine Metabols U Cannabinoids Screen 10/07/18 10/07/18 10/07/18 05:07 05:55 06:10 WBC 13.4 H RBC 3.72 L Hgb 10.0 L Hct 31.5 L MCV 84.7 MCH 26.8 L MCHC 31.7 L RDW 15.1 H Plt Count 145 MPV 10.2 Neut % (Auto) 77.1 H Lymph % (Auto) 5.3 L [place] % (Auto) 6.4 Eos % (Auto) 10.6 H Baso % (Auto) 0.6 Neut # (Auto) 10.3 H Lymph # (Auto) 0.7 L [place] # (Auto) 0.9 H Eos # (Auto) 1.4 H Baso # (Auto) 0.1 Neutrophils % (Manual) 74 Band Neutrophils % 5 H Lymphocytes % (Manual) 5 L Monocytes % (Manual) 5 Eosinophils % (Manual) 11 H Toxic Granulation Present Platelet Estimate Normal Large Platelets Present Giant Platelets Present Polychromasia Slight Hypochromasia (manual) Slight Poikilocytosis (manual Slight Basophilic Stippling Anisocytosis (manual) Slight Ovalocytes Slight Schistocytes Slight PT INR APTT Puncture Site pCO2 pO2 HCO3 ABG pH ABG Total CO2 ABG O2 Saturation ABG Base Excess [place] Test ABG Potassium A-a O2 Difference Respiratory Index Sodium Chloride Glucose Lactate Vent Mode Mechanical Rate FiO2 Tidal Volume PEEP Potassium Carbon Dioxide Anion Gap BUN Creatinine Est GFR ( Amer) Est GFR (Non-Af Amer) POC Glucose (mg/dL) 192 H 159 H Random Glucose Calcium Phosphorus Magnesium Total Bilirubin AST ALT Alkaline Phosphatase Total Creatine Kinase CK-MB (Mass) Troponin I Total Protein Albumin Globulin Albumin/Globulin Ratio PTH Intact Whole Molec Arterial Blood Potassium Urine Color Urine Clarity Urine pH Ur Specific [place] Urine Protein Urine Glucose (UA) Urine Ketones Urine Blood Urine Nitrate Urine Bilirubin Urine Urobilinogen Ur Leukocyte Esterase Urine WBC (Auto) Urine RBC (Auto) Urine WBC Clumps (Auto) Ur Squamous Epith Cells Urine Bacteria Urine Opiates Screen Urine Methadone Screen Ur Barbiturates Screen Ur Phencyclidine Scrn Ur Amphetamines Screen U Benzodiazepines Scrn U Oth Cocaine Metabols U Cannabinoids Screen 10/07/18 10/07/18 10/07/18 06:10 11:08 17:24 WBC RBC Hgb Hct MCV MCH MCHC RDW Plt Count MPV Neut % (Auto) Lymph % (Auto) [place] % (Auto) Eos % (Auto) Baso % (Auto) Neut # (Auto) Lymph # (Auto) [place] # (Auto) Eos # (Auto) Baso # (Auto) Neutrophils % (Manual) Band Neutrophils % Lymphocytes % (Manual) Monocytes % (Manual) Eosinophils % (Manual) Toxic Granulation Platelet Estimate Large Platelets Giant Platelets Polychromasia Hypochromasia (manual) Poikilocytosis (manual Basophilic Stippling Anisocytosis (manual) Ovalocytes Schistocytes PT INR APTT Puncture Site pCO2 pO2 HCO3 ABG pH ABG Total CO2 ABG O2 Saturation ABG Base Excess Jim[place] Test ABG Potassium A-a O2 Difference Respiratory Index Sodium 133 Chloride 96 L Glucose Lactate Vent Mode Mechanical Rate FiO2 Tidal Volume PEEP Potassium 4.0 Carbon Dioxide 29 Anion Gap 12 BUN 28 H Creatinine 4.0 H Est GFR ( Amer) 13 Est GFR (Non-Af Amer) 11 POC Glucose (mg/dL) 158 H 203 H Random Glucose 137 H D Calcium 8.0 L Phosphorus 3.8 Magnesium 1.6 Total Bilirubin 0.6 AST 55 H ALT 70 H Alkaline Phosphatase 108 Total Creatine Kinase CK-MB (Mass) Troponin I Total Protein 5.8 L Albumin 3.1 L Globulin 2.7 Albumin/Globulin Ratio 1.2 PTH Intact Whole Molec Arterial Blood Potassium Urine Color Urine Clarity Urine pH Ur Specific [place] Urine Protein Urine Glucose (UA) Urine Ketones Urine Blood Urine Nitrate Urine Bilirubin Urine Urobilinogen Ur Leukocyte Esterase Urine WBC (Auto) Urine RBC (Auto) Urine WBC Clumps (Auto) Ur Squamous Epith Cells Urine Bacteria Urine Opiates Screen Urine Methadone Screen Ur Barbiturates Screen Ur Phencyclidine Scrn Ur Amphetamines Screen U Benzodiazepines Scrn U Oth Cocaine Metabols U Cannabinoids Screen 10/07/18 10/08/18 10/08/18 23:23 05:05 05:14 WBC RBC Hgb Hct MCV MCH MCHC RDW Plt Count MPV Neut % (Auto) Lymph % (Auto) [place] % (Auto) Eos % (Auto) Baso % (Auto) Neut # (Auto) Lymph # (Auto) [place] # (Auto) Eos # (Auto) Baso # (Auto) Neutrophils % (Manual) Band Neutrophils % Lymphocytes % (Manual) Monocytes % (Manual) Eosinophils % (Manual) Toxic Granulation Platelet Estimate Large Platelets Giant Platelets Polychromasia Hypochromasia (manual) Poikilocytosis (manual Basophilic Stippling Anisocytosis (manual) Ovalocytes Schistocytes PT INR APTT Puncture Site Rr pCO2 40 pO2 148 H HCO3 28.3 H ABG pH 7.46 H ABG Total CO2 29.6 H ABG O2 Saturation 99.1 H ABG Base Excess 4.2 H Jimenez Test Pos ABG Potassium 2.7 L A-a O2 Difference 159.0 Respiratory Index 1.1 Sodium 134.0 Chloride 102.0 Glucose 298 H Lactate 0.8 Vent Mode Prvc Mechanical Rate 18 FiO2 50.0 Tidal Volume 450 PEEP 5 Potassium Carbon Dioxide Anion Gap BUN Creatinine Est GFR ( Amer) Est GFR (Non-Af Amer) POC Glucose (mg/dL) 287 H 310 H Random Glucose Calcium Phosphorus Magnesium Total Bilirubin AST ALT Alkaline Phosphatase Total Creatine Kinase CK-MB (Mass) Troponin I Total Protein Albumin Globulin Albumin/Globulin Ratio PTH Intact Whole Molec Arterial Blood Potassium 2.7 L Urine Color Urine Clarity Urine pH Ur Specific [place] Urine Protein Urine Glucose (UA) Urine Ketones Urine Blood Urine Nitrate Urine Bilirubin Urine Urobilinogen Ur Leukocyte Esterase Urine WBC (Auto) Urine RBC (Auto) Urine WBC Clumps (Auto) Ur Squamous Epith Cells Urine Bacteria Urine Opiates Screen Urine Methadone Screen Ur Barbiturates Screen Ur Phencyclidine Scrn Ur Amphetamines Screen U Benzodiazepines Scrn U Oth Cocaine Metabols U Cannabinoids Screen 10/08/18 10/08/18 10/08/18 05:52 05:52 05:52 WBC 12.6 H RBC 2.97 L Hgb 8.1 L Hct 25.3 L MCV 85.0 MCH 27.3 MCHC 32.2 L RDW 14.5 Plt Count 129 L MPV 10.4 Neut % (Auto) 69.5 Lymph % (Auto) 12.0 L [place] % (Auto) 8.8 Eos % (Auto) 9.1 H Baso % (Auto) 0.6 Neut # (Auto) 8.8 H Lymph # (Auto) 1.5 [place] # (Auto) 1.1 H Eos # (Auto) 1.1 H Baso # (Auto) 0.1 Neutrophils % (Manual) Band Neutrophils % Lymphocytes % (Manual) Monocytes % (Manual) Eosinophils % (Manual) Toxic Granulation Platelet Estimate Large Platelets Giant Platelets Polychromasia Hypochromasia (manual) Poikilocytosis (manual Basophilic Stippling Anisocytosis (manual) Ovalocytes Schistocytes PT INR APTT Puncture Site pCO2 pO2 HCO3 ABG pH ABG Total CO2 ABG O2 Saturation ABG Base Excess [place] Test ABG Potassium A-a O2 Difference Respiratory Index Sodium 131 L Chloride 95 L Glucose Lactate Vent Mode Mechanical Rate FiO2 Tidal Volume PEEP Potassium 3.0 L Carbon Dioxide 30 Anion Gap 9 L BUN 26 H Creatinine 3.3 H Est GFR ( Amer) 17 Est GFR (Non-Af Amer) 14 POC Glucose (mg/dL) Random Glucose 279 H D Calcium 7.2 L Phosphorus 1.9 L Magnesium 1.8 Total Bilirubin 0.5 AST 36 D ALT 50 Alkaline Phosphatase 134 H D Total Creatine Kinase CK-MB (Mass) Troponin I Total Protein 5.1 L Albumin 2.6 L Globulin 2.5 Albumin/Globulin Ratio 1.0 PTH Intact Whole Molec Arterial Blood Potassium Urine Color [place] Urine Clarity Hazy Urine pH 5.0 Ur Specific [place] 1.028 Urine Protein 3+ H Urine Glucose (UA) 2+ H Urine Ketones Negative Urine Blood Negative Urine Nitrate Negative Urine Bilirubin Negative Urine Urobilinogen Normal Ur Leukocyte Esterase 2+ H Urine WBC (Auto) 641 H Urine RBC (Auto) 16 H Urine WBC Clumps (Auto) Many H Ur Squamous Epith Cells 6 H Urine Bacteria Many H Urine Opiates Screen Urine Methadone Screen Ur Barbiturates Screen Ur Phencyclidine Scrn Ur Amphetamines Screen U Benzodiazepines Scrn U Oth Cocaine Metabols U Cannabinoids Screen - Constitutional Appears: Confused, Chronically Ill - Respiratory Exam Respiratory Exam: Rhonchi Additional comments: on vent - Cardiovascular Exam Cardiovascular Exam: REGULAR RHYTHM, RRR - GI/Abdominal Exam GI & Abdominal Exam: Soft - Extremities Exam Extremities Exam: Normal Inspection, Pedal Edema Additional comments: warm, well perfused - Neurological Exam Neurological Exam: Awake Additional comments: intubated Assessment and Plan - Assessment and Plan (Free Text) Assessment: patient now s/p code freeze, had fever last night and now on antibiotics, sedation stopped and patient also beginning to follow commands. -moving all extremities purposely except right arm on exam -eeg pending. -to receive dialysis -d/w icu attending; will aim for monday for possible extubation when patient stronger and volume status improved with dialysis -will continue to follow
[2018-10-06 13:58] LABS: BASO # 0.1 K/uL (0.0-0.2); BASO % 0.5 % (0.0-2.0); EOS # 1.1 K/uL (0.0-0.7); EOS % 9.4 % (0.0-4.0); LYMPH # 0.9 K/uL (1.0-4.3); LYMPH % 8.2 % (20.0-40.0); MEAN CELL VOLUME 84.3 fL (81.0-99.0); MEAN CORPUSCULAR HEMOGLOBIN 26.7 pg (27.0-31.0); MEAN CORPUSCULAR HGB CONC 31.7 g/dL (33.0-37.0); MEAN PLATELET VOLUME 9.9 fL (7.2-11.7); MONO # 1.1 K/uL (0.0-0.8); MONO % 9.2 % (0.0-10.0); NEUT # 8.5 K/uL (1.8-7.0); NEUT % 72.7 % (50.0-75.0); PLATELET COUNT 115 K/uL (130-400); RBC 3.73 Mil/uL (3.80-5.20); RED CELL DISTRIBUTION WIDTH 14.5 % (11.5-14.5); WHITE BLOOD COUNT 11.6 K/uL (4.8-10.8)
[2018-10-06 14:05] LABS: INR 1.2; PROTHROMBIN TIME 13.6 SECONDS (9.7-12.2)
[2018-10-06] MEDS: (Novolin R) Insulin Human Regular 100 units/ml vial SC SCH ×2 (14:07→18:00)
[2018-10-06] MEDS: Piperacill/Tazo 2.25gm in Dex 2.25 GM/50 ML BAG IVPB SCH ×2 (14:09→22:00)
[2018-10-06 14:27] LABS: EOSINOPHIL 6 % (0-4); LYMPHOCYTE 6 % (20-40); MONOCYTE 9 % (0-10); NEUTROPHIL 79 % (50-75); PLATELET ESTIMATE SLIGHTLY DECREASED (NORMAL); TOTAL CELLS COUNTED 100
[2018-10-06 14:28] LABS: HYPOCHROMIC SLIGHT
[2018-10-06 14:35] LABS: ALB/GLOB RATIO 1.2 (1.0-2.1); ALBUMIN 3.2 g/dL (3.5-5.0); CALCIUM 8.3 mg/dl (8.6-10.4)
[2018-10-06 15:04] LABS: TROPONIN I 0.03 ng/mL (0.00-0.120)
[2018-10-06] MEDS ORDERED: Dextrose 50% SYRINGE Inj (50 ml) IV ONE (17:30)
[2018-10-06] MEDS ORDERED: Dextrose 25% Inj (10ml) IV ONE (17:31)
--- NOTE | 2018-10-06 19:38 | CP.PCM.CON ---
History of Present Illness - History of Present Illness History of Present Illness: CC: Cardio Respiratory arrest Patient is a 72 yo female w/ PMH of DM2, HTN, CKD 5, CHF, CAD post stent, pituitary adenoma admitted to ICU s/p cardio respiratory arrest in surgery for attempted catheter placement and AVF placement. Patient received fentanyl and then it was noticed that patient had a jerking like motion suggestive of seizure. Patient was given a dose of versed for possible seizure activity. Patient became hypoxemic and pulseless and ACLS protocol was initiated with ROSC achieved. Patient was intubated by surgical/anasthesia team and brought to ICU. PMH- DM2, HTN, CKD 5, CHF, CAD post stent, pituitary adenoma, Normal recent stress test and EF PSH- Coronary stents, Pituitary macroadenoma surgery, Hysterectomy NKDA Meds as per orders Social- limited as patient is intubated Review of Systems - Review of Systems Systems not reviewed;Unavailable: Intubated Physical Exam - Constitutional Additional comments: AMS - Head Exam Head Exam: NORMAL INSPECTION, NORMOCEPHALIC - Eye Exam Eye Exam: absent: Nystagmus, PERRL, Scleral icterus - ENT Exam ENT Exam: Mucous Membranes Moist - Neck Exam Additional comments: shiley in right side of neck - Respiratory Exam Respiratory Exam: Clear to Auscultation Bilateral, NORMAL BREATHING PATTERN. absent: Rhonchi, Wheezes Additional comments: Intubated with ET tube - Cardiovascular Exam Cardiovascular Exam: Bradycardia, REGULAR RHYTHM, +S1, +S2. absent: Irregular Rhythm - GI/Abdominal Exam GI & Abdominal Exam: Normal Bowel Sounds, Soft. absent: Diminished Bowel Sounds, Distended, Firm, Guarding - Extremities Exam Extremities exam: Positive for: normal inspection. Negative for: calf tende rness, pedal edema - Neurological Exam Additional comments: AMS, not alert awake or oriented - Skin Skin Exam: Intact, Normal Color Assessment & Plan - Assessment and Plan (Free Text) Assessment: Patient is a 72 yo female w/ PMH of DM2, HTN, CKD 5, CHF, CAD post stent, pituitary adenoma admitted for anoxia and Cardio respiratory arrest during AVF placement and catheter. Patient was intubated by anasthesia team en route Neuro non responsive to verbal or painful stimuli- possible AMS from sedation meds Was given fentanyl and versed during procedure CT head pending Pulm Intubated with ET tube (14,450,100%,5) maintain spo2> 92% ABG pending CV Unlikle primary cardiac event (Given normal stress test and Normal EF) EKG showed sinus bradycardia with first degree heart block Aspirin daily Imdur/Hydralazine for bp management Crestor DVT prophylaxis Code Freeze initiated at 4:35 pm Endo Synthroid Levemir Hydrocortisone GI No active issues Protonix Renal Phoslo EPO Ferrlecit MWF dialysis through shiley Catheter placement and fistula placement DVT ppx: heparin GI ppx: Protonix Past Patient History - Infectious Disease Hx of Infectious Diseases: None - Past Medical History & Family History Past Medical History?: Yes - Past Social History Smoking Status: Never Smoked - CARDIAC Hx Congestive Heart Failure: Yes Hx Hypercholesterolemia: Yes Hx Hypertension: Yes - PULMONARY Hx Respiratory Disorders: No - NEUROLOGICAL Hx Neurological Disorder: No Hx Dizziness: Yes - HEENT Hx HEENT Problems: Yes Other/Comment: left eye drooping-blurry due to DM - RENAL Hx Chronic Kidney Disease: Yes - ENDOCRINE/METABOLIC Hx Diabetes Mellitus Type 2: Yes - HEMATOLOGICAL/ONCOLOGICAL Hx Blood Disorders: No - INTEGUMENTARY Hx Dermatological Problems: No - MUSCULOSKELETAL/RHEUMATOLOGICAL Hx Falls: Yes - GASTROINTESTINAL Hx Gastrointestinal Disorders: No - GENITOURINARY/GYNECOLOGICAL Hx Genitourinary Disorders: No - PSYCHIATRIC Hx Substance Use: No - SURGICAL HISTORY Hx Coronary Stent: Yes (10/2015) - ANESTHESIA Hx Anesthesia: Yes Hx Anesthesia Reactions: No Hx Malignant Hyperthermia: No Meds Allergies/Adverse Reactions: Allergies Allergy/AdvReac Type Severity Reaction Status Date / Time No Known Allergies Allergy Verified 07/21/18 12:21 - Medications Medications: Current Medications Acetaminophen (Tylenol 325mg Tab) 650 mg PO Q6H PRN PRN Reason: Pain, Mild (1-3) Last Admin: 10/06/18 11:15 Dose: 650 mg Artificial Tears (Artificial Tears) 0 ml OU Q6 [facility] Aspirin (Ecotrin) 81 mg PO DAILY [facility] Last Admin: 10/06/18 11:45 Dose: 81 mg Calcium Acetate (Phoslo) 667 mg PO TIDCC [facility] Last Admin: 10/06/18 17:30 Dose: 667 mg Carvedilol (Coreg) 25 mg PO BID [facility] Epoetin Dedrick (Procrit) 10,000 unit IV TTS [facility] Last Admin: 10/06/18 10:47 Dose: Not Given Heparin Sodium (Porcine) (Heparin) 5,000 units SC Q12 [facility] Last Admin: 10/06/18 11:14 Dose: 5,000 units Hydralazine HCl (Apresoline) 50 mg PO BID [facility] Last Admin: 10/05/18 18:00 Dose: Not Given Hydrocortisone (Cortef) 5 mg PO DAILY [facility] Last Admin: 10/06/18 11:00 Dose: 5 mg Ferric Sodium Gluconate Complex 125 mg/ Sodium Chloride 110 mls @ 110 mls/hr IVPB DAILY [facility] Stop: 10/14/18 10:01 Last Admin: 10/06/18 11:17 Dose: 110 mls/hr Propofol (Diprivan) 1,000 mg in 100 mls @ 2.735 mls/hr IV .Q24H PRN; Protocol PRN Reason: TITRATE PER MD ORDER Last Titration: 10/06/18 12:00 Dose: 10.23 mcg/kg/min, 5.6 mls/hr Piperacillin Sod/Tazobactam Sod (Zosyn 2.25 Gm Iv Premix) 2.25 gm in 50 mls @ 100 mls/hr IVPB Q8 [facility]; Protocol Last Admin: 10/06/18 14:09 Dose: 100 mls/hr Levetiracetam 750 mg/ Dextrose 107.5 mls @ 420 mls/hr IVPB Q12H [facility] Last Admin: 10/06/18 17:00 Dose: 420 mls/hr Dextrose (Dextrose 10% In Water) 500 mls @ 20 mls/hr IV .Q24H [facility] Last Admin: 10/06/18 18:47 Dose: Not Given Insulin Detemir (Levemir) 20 unit SC HS [facility] Last Admin: 10/05/18 22:00 Dose: 20 units Insulin Human Regular (Novolin R) 0 unit SC Q6H [facility]; Protocol Last Admin: 10/06/18 18:00 Dose: Not Given Isosorbide Mononitrate (Imdur Er) 30 mg PO DAILY [facility] Last Admin: 10/06/18 11:16 Dose: 30 mg Levothyroxine Sodium (Synthroid) 50 mcg PO 0600 [facility] Last Admin: 10/06/18 06:58 Dose: 50 mcg Pantoprazole Sodium (Protonix Inj) 40 mg IVP DAILY [facility] Last Admin: 10/06/18 11:14 Dose: 40 mg Propofol (Diprivan) 100 mg IV TITR JOCELYN Last Admin: 10/06/18 17:21 Dose: 100 mg Rosuvastatin Calcium (Crestor) 10 mg PO HS [facility] Last Admin: 10/05/18 23:38 Dose: 10 mg Results - Vital Signs Recent Vital Signs: Last Vital Signs Temp 92 F L 10/06/18 19:15 Pulse 58 L 10/06/18 19:15 Resp 13 10/06/18 19:00 BP 157/74 H 10/06/18 19:15 Pulse Ox 100 10/06/18 19:00 - Labs Result Diagrams: 10/06/18 13:53 10/06/18 13:53 Labs: Laboratory Results - last 24 hr 10/05/18 10/05/18 10/05/18 19:47 21:08 22:32 WBC RBC Hgb Hct MCV MCH MCHC RDW Plt Count MPV Neut % (Auto) Lymph % (Auto) [place] % (Auto) Eos % (Auto) Baso % (Auto) Neut # (Auto) Lymph # (Auto) [place] # (Auto) Eos # (Auto) Baso # (Auto) Neutrophils % (Manual) Band Neutrophils % Lymphocytes % (Manual) Monocytes % (Manual) Eosinophils % (Manual) Platelet Estimate Large Platelets Hypochromasia (manual) Basophilic Stippling Ovalocytes PT INR APTT Puncture Site pCO2 pO2 HCO3 ABG pH ABG Total CO2 ABG O2 Saturation ABG Base Excess Jimenez Test ABG Potassium A-a O2 Difference Respiratory Index Glucose Lactate Vent Mode Mechanical Rate FiO2 Tidal Volume PEEP Sodium Potassium Chloride Carbon Dioxide Anion Gap BUN Creatinine Est GFR ( Amer) Est GFR (Non-Af Amer) POC Glucose (mg/dL) 211 H 230 H 248 H Random Glucose Calcium Phosphorus Magnesium Total Bilirubin AST ALT Alkaline Phosphatase Total Creatine Kinase Troponin I Total Protein Albumin Globulin Albumin/Globulin Ratio Arterial Blood Potassium Urine Color Urine Clarity Urine pH Ur Specific [place] Urine Protein Urine Glucose (UA) Urine Ketones Urine Blood Urine Nitrate Urine Bilirubin Urine Urobilinogen Ur Leukocyte Esterase Urine WBC (Auto) Urine RBC (Auto) Urine WBC Clumps (Auto) Ur Squamous Epith Cells Urine Bacteria Urine Opiates Screen Urine Methadone Screen Ur Barbiturates Screen Ur Phencyclidine Scrn Ur Amphetamines Screen U Benzodiazepines Scrn U Oth Cocaine Metabols U Cannabinoids Screen 01/01/1810/06/18 10/06/18 23:29 00:07 01:03 WBC RBC Hgb Hct MCV MCH MCHC RDW Plt Count MPV Neut % (Auto) Lymph % (Auto) [place] % (Auto) Eos % (Auto) Baso % (Auto) Neut # (Auto) Lymph # (Auto) [place] # (Auto) Eos # (Auto) Baso # (Auto) Neutrophils % (Manual) Band Neutrophils % Lymphocytes % (Manual) Monocytes % (Manual) Eosinophils % (Manual) Platelet Estimate Large Platelets Hypochromasia (manual) Basophilic Stippling Ovalocytes PT INR APTT Puncture Site pCO2 pO2 HCO3 ABG pH ABG Total CO2 ABG O2 Saturation ABG Base Excess Jimenez Test ABG Potassium A-a O2 Difference Respiratory Index Glucose Lactate Vent Mode Mechanical Rate FiO2 Tidal Volume PEEP Sodium Potassium Chloride Carbon Dioxide Anion Gap BUN Creatinine Est GFR ( Amer) Est GFR (Non-Af Amer) POC Glucose (mg/dL) 237 H 249 H 226 H Random Glucose Calcium Phosphorus Magnesium Total Bilirubin AST ALT Alkaline Phosphatase Total Creatine Kinase Troponin I Total Protein Albumin Globulin Albumin/Globulin Ratio Arterial Blood Potassium Urine Color Urine Clarity Urine pH Ur Specific [place] Urine Protein Urine Glucose (UA) Urine Ketones Urine Blood Urine Nitrate Urine Bilirubin Urine Urobilinogen Ur Leukocyte Esterase Urine WBC (Auto) Urine RBC (Auto) Urine WBC Clumps (Auto) Ur Squamous Epith Cells Urine Bacteria Urine Opiates Screen Urine Methadone Screen Ur Barbiturates Screen Ur Phencyclidine Scrn Ur Amphetamines Screen U Benzodiazepines Scrn U Oth Cocaine Metabols U Cannabinoids Screen 10/06/18 10/06/18 10/06/18 01:33 01:33 01:33 WBC 12.5 H RBC 3.78 L Hgb 10.2 L Hct 32.5 L MCV 86.2 MCH 27.0 MCHC 31.4 L RDW 14.6 H Plt Count 125 L MPV 10.5 Neut % (Auto) 79.8 H Lymph % (Auto) 7.2 L [place] % (Auto) 8.6 Eos % (Auto) 4.0 Baso % (Auto) 0.4 Neut # (Auto) 9.9 H Lymph # (Auto) 0.9 L [place] # (Auto) 1.1 H Eos # (Auto) 0.5 Baso # (Auto) 0.0 Neutrophils % (Manual) 83 H Band Neutrophils % 2 Lymphocytes % (Manual) 6 L Monocytes % (Manual) 9 Eosinophils % (Manual) Platelet Estimate Slightly decreased L Large Platelets Hypochromasia (manual) Basophilic Stippling Ovalocytes PT 13.0 H INR 1.2 APTT 41 H Puncture Site pCO2 pO2 HCO3 ABG pH ABG Total CO2 ABG O2 Saturation ABG Base Excess Jimenez Test ABG Potassium A-a O2 Difference Respiratory Index Glucose Lactate Vent Mode Mechanical Rate FiO2 Tidal Volume PEEP Sodium 133 Potassium 4.0 Chloride 97 L Carbon Dioxide 29 Anion Gap 12 BUN 20 H Creatinine 3.2 H Est GFR ( Amer) 17 Est GFR (Non-Af Amer) 14 POC Glucose (mg/dL) Random Glucose 211 H Calcium 8.1 L Phosphorus Magnesium 1.6 Total Bilirubin AST ALT Alkaline Phosphatase Total Creatine Kinase Troponin I Total Protein Albumin Globulin Albumin/Globulin Ratio Arterial Blood Potassium Urine Color Urine Clarity Urine pH Ur Specific [place] Urine Protein Urine Glucose (UA) Urine Ketones Urine Blood Urine Nitrate Urine Bilirubin Urine Urobilinogen Ur Leukocyte Esterase Urine WBC (Auto) Urine RBC (Auto) Urine WBC Clumps (Auto) Ur Squamous Epith Cells Urine Bacteria Urine Opiates Screen Urine Methadone Screen Ur Barbiturates Screen Ur Phencyclidine Scrn Ur Amphetamines Screen U Benzodiazepines Scrn U Oth Cocaine Metabols U Cannabinoids Screen 10/06/18 10/06/18 10/06/18 01:33 01:33 01:55 WBC RBC Hgb Hct MCV MCH MCHC RDW Plt Count MPV Neut % (Auto) Lymph % (Auto) [place] % (Auto) Eos % (Auto) Baso % (Auto) Neut # (Auto) Lymph # (Auto) [place] # (Auto) Eos # (Auto) Baso # (Auto) Neutrophils % (Manual) Band Neutrophils % Lymphocytes % (Manual) Monocytes % (Manual) Eosinophils % (Manual) Platelet Estimate Large Platelets Hypochromasia (manual) Basophilic Stippling Ovalocytes PT INR APTT Puncture Site pCO2 pO2 HCO3 ABG pH ABG Total CO2 ABG O2 Saturation ABG Base Excess Jimenez Test ABG Potassium A-a O2 Difference Respiratory Index Glucose Lactate Vent Mode Mechanical Rate FiO2 Tidal Volume PEEP Sodium Potassium Chloride Carbon Dioxide Anion Gap BUN Creatinine Est GFR ( Amer) Est GFR (Non-Af Amer) POC Glucose (mg/dL) 232 H Random Glucose Calcium Phosphorus Magnesium Total Bilirubin AST ALT Alkaline Phosphatase Total Creatine Kinase Troponin I Total Protein Albumin Globulin Albumin/Globulin Ratio Arterial Blood Potassium Urine Color Yellow Urine Clarity Turbid Urine pH 7.0 Ur Specific [place] 1.022 Urine Protein 3+ H Urine Glucose (UA) 1+ Urine Ketones Trace Urine Blood Negative Urine Nitrate Negative Urine Bilirubin Negative Urine Urobilinogen Normal Ur Leukocyte Esterase 3+ H Urine WBC (Auto) 1438 H Urine RBC (Auto) 4 H Urine WBC Clumps (Auto) Many H Ur Squamous Epith Cells 2 Urine Bacteria Many H Urine Opiates Screen Negative Urine Methadone Screen Negative Ur Barbiturates Screen Negative Ur Phencyclidine Scrn Negative Ur Amphetamines Screen Negative U Benzodiazepines Scrn Negative U Oth Cocaine Metabols Negative U Cannabinoids Screen Negative 10/06/18 10/06/18 10/06/18 03:25 04:16 04:40 WBC RBC Hgb Hct MCV MCH MCHC RDW Plt Count MPV Neut % (Auto) Lymph % (Auto) [place] % (Auto) Eos % (Auto) Baso % (Auto) Neut # (Auto) Lymph # (Auto) [place] # (Auto) Eos # (Auto) Baso # (Auto) Neutrophils % (Manual) Band Neutrophils % Lymphocytes % (Manual) Monocytes % (Manual) Eosinophils % (Manual) Platelet Estimate Large Platelets Hypochromasia (manual) Basophilic Stippling Ovalocytes PT INR APTT Puncture Site Rr pCO2 57 H pO2 193 H HCO3 24.2 ABG pH 7.28 L ABG Total CO2 28.5 H ABG O2 Saturation 99.2 H ABG Base Excess -1.0 Jimenez Test Pos ABG Potassium 5.0 A-a O2 Difference 92.0 Respiratory Index 0.5 Glucose 168 H Lactate 1.5 Vent Mode Prvc Mechanical Rate 18 FiO2 50.0 Tidal Volume 450 PEEP 5 Sodium 135.0 Potassium Chloride 101.0 Carbon Dioxide Anion Gap BUN Creatinine Est GFR ( Amer) Est GFR (Non-Af Amer) POC Glucose (mg/dL) 217 H 212 H Random Glucose Calcium Phosphorus Magnesium Total Bilirubin AST ALT Alkaline Phosphatase Total Creatine Kinase Troponin I Total Protein Albumin Globulin Albumin/Globulin Ratio Arterial Blood Potassium 5.0 Urine Color Urine Clarity Urine pH Ur Specific [place] Urine Protein Urine Glucose (UA) Urine Ketones Urine Blood Urine Nitrate Urine Bilirubin Urine Urobilinogen Ur Leukocyte Esterase Urine WBC (Auto) Urine RBC (Auto) Urine WBC Clumps (Auto) Ur Squamous Epith Cells Urine Bacteria Urine Opiates Screen Urine Methadone Screen Ur Barbiturates Screen Ur Phencyclidine Scrn Ur Amphetamines Screen U Benzodiazepines Scrn U Oth Cocaine Metabols U Cannabinoids Screen 10/06/18 10/06/18 10/06/18 05:11 05:49 05:49 WBC 13.2 H RBC 4.01 Hgb 10.7 L Hct 34.2 MCV 85.2 MCH 26.6 L MCHC 31.2 L RDW 14.6 H Plt Count 138 MPV 9.8 Neut % (Auto) 78.9 H Lymph % (Auto) 8.6 L [place] % (Auto) 7.8 Eos % (Auto) 4.2 H Baso % (Auto) 0.5 Neut # (Auto) 10.4 H Lymph # (Auto) 1.1 [place] # (Auto) 1.0 H Eos # (Auto) 0.6 Baso # (Auto) 0.1 Neutrophils % (Manual) 73 Band Neutrophils % 5 H Lymphocytes % (Manual) 9 L Monocytes % (Manual) 10 Eosinophils % (Manual) 3 Platelet Estimate Normal Large Platelets Present Hypochromasia (manual) Basophilic Stippling Slight Ovalocytes Slight PT INR APTT Puncture Site pCO2 pO2 HCO3 ABG pH ABG Total CO2 ABG O2 Saturation ABG Base Excess Jimenez Test ABG Potassium A-a O2 Difference Respiratory Index Glucose Lactate Vent Mode Mechanical Rate FiO2 Tidal Volume PEEP Sodium 134 Potassium 3.9 Chloride 96 L Carbon Dioxide 28 Anion Gap 14 BUN 21 H Creatinine 3.4 H Est GFR ( Amer) 16 Est GFR (Non-Af Amer) 13 POC Glucose (mg/dL) 182 H Random Glucose 162 H D Calcium 8.4 L Phosphorus 3.4 Magnesium 1.7 Total Bilirubin 0.5 AST 91 H D ALT 96 H Alkaline Phosphatase 114 Total Creatine Kinase Troponin I Total Protein 6.4 Albumin 3.6 Globulin 2.7 Albumin/Globulin Ratio 1.3 Arterial Blood Potassium Urine Color Urine Clarity Urine pH Ur Specific [place] Urine Protein Urine Glucose (UA) Urine Ketones Urine Blood Urine Nitrate Urine Bilirubin Urine Urobilinogen Ur Leukocyte Esterase Urine WBC (Auto) Urine RBC (Auto) Urine WBC Clumps (Auto) Ur Squamous Epith Cells Urine Bacteria Urine Opiates Screen Urine Methadone Screen Ur Barbiturates Screen Ur Phencyclidine Scrn Ur Amphetamines Screen U Benzodiazepines Scrn U Oth Cocaine Metabols U Cannabinoids Screen 10/06/18 10/06/18 10/06/18 05:49 06:32 07:26 WBC RBC Hgb Hct MCV MCH MCHC RDW Plt Count MPV Neut % (Auto) Lymph % (Auto) [place] % (Auto) Eos % (Auto) Baso % (Auto) Neut # (Auto) Lymph # (Auto) [place] # (Auto) Eos # (Auto) Baso # (Auto) Neutrophils % (Manual) Band Neutrophils % Lymphocytes % (Manual) Monocytes % (Manual) Eosinophils % (Manual) Platelet Estimate Large Platelets Hypochromasia (manual) Basophilic Stippling Ovalocytes PT 12.8 H INR 1.2 APTT 42 H Puncture Site pCO2 pO2 HCO3 ABG pH ABG Total CO2 ABG O2 Saturation ABG Base Excess Jimenez Test ABG Potassium A-a O2 Difference Respiratory Index Glucose Lactate Vent Mode Mechanical Rate FiO2 Tidal Volume PEEP Sodium Potassium Chloride Carbon Dioxide Anion Gap BUN Creatinine Est GFR ( Amer) Est GFR (Non-Af Amer) POC Glucose (mg/dL) 168 H 174 H Random Glucose Calcium Phosphorus Magnesium Total Bilirubin AST ALT Alkaline Phosphatase Total Creatine Kinase Troponin I Total Protein Albumin Globulin Albumin/Globulin Ratio Arterial Blood Potassium Urine Color Urine Clarity Urine pH Ur Specific [place] Urine Protein Urine Glucose (UA) Urine Ketones Urine Blood Urine Nitrate Urine Bilirubin Urine Urobilinogen Ur Leukocyte Esterase Urine WBC (Auto) Urine RBC (Auto) Urine WBC Clumps (Auto) Ur Squamous Epith Cells Urine Bacteria Urine Opiates Screen Urine Methadone Screen Ur Barbiturates Screen Ur Phencyclidine Scrn Ur Amphetamines Screen U Benzodiazepines Scrn U Oth Cocaine Metabols U Cannabinoids Screen 10/06/18 10/06/18 10/06/18 08:12 11:02 13:53 WBC RBC Hgb Hct MCV MCH MCHC RDW Plt Count MPV Neut % (Auto) Lymph % (Auto) [place] % (Auto) Eos % (Auto) Baso % (Auto) Neut # (Auto) Lymph # (Auto) [place] # (Auto) Eos # (Auto) Baso # (Auto) Neutrophils % (Manual) Band Neutrophils % Lymphocytes % (Manual) Monocytes % (Manual) Eosinophils % (Manual) Platelet Estimate Large Platelets Hypochromasia (manual) Basophilic Stippling Ovalocytes PT INR APTT Puncture Site pCO2 pO2 HCO3 ABG pH ABG Total CO2 ABG O2 Saturation ABG Base Excess Jimenez Test ABG Potassium A-a O2 Difference Respiratory Index Glucose Lactate Vent Mode Mechanical Rate FiO2 Tidal Volume PEEP Sodium 135 Potassium 3.7 Chloride 99 Carbon Dioxide 30 Anion Gap 10 BUN 23 H Creatinine 3.8 H Est GFR ( Amer) 14 Est GFR (Non-Af Amer) 12 POC Glucose (mg/dL) 139 H 97 Random Glucose 71 D Calcium 8.3 L Phosphorus 3.2 Magnesium 1.7 Total Bilirubin 0.5 AST 67 H D ALT 78 H Alkaline Phosphatase 100 Total Creatine Kinase Troponin I Total Protein 5.8 L Albumin 3.2 L Globulin 2.6 Albumin/Globulin Ratio 1.2 Arterial Blood Potassium Urine Color Urine Clarity Urine pH Ur Specific [place] Urine Protein Urine Glucose (UA) Urine Ketones Urine Blood Urine Nitrate Urine Bilirubin Urine Urobilinogen Ur Leukocyte Esterase Urine WBC (Auto) Urine RBC (Auto) Urine WBC Clumps (Auto) Ur Squamous Epith Cells Urine Bacteria Urine Opiates Screen Urine Methadone Screen Ur Barbiturates Screen Ur Phencyclidine Scrn Ur Amphetamines Screen U Benzodiazepines Scrn U Oth Cocaine Metabols U Cannabinoids Screen 10/06/18 10/06/18 10/06/18 13:53 13:53 14:30 WBC 11.6 H RBC 3.73 L Hgb 10.0 L Hct 31.5 L MCV 84.3 MCH 26.7 L MCHC 31.7 L RDW 14.5 Plt Count 115 L D MPV 9.9 Neut % (Auto) 72.7 Lymph % (Auto) 8.2 L [place] % (Auto) 9.2 Eos % (Auto) 9.4 H Baso % (Auto) 0.5 Neut # (Auto) 8.5 H Lymph # (Auto) 0.9 L [place] # (Auto) 1.1 H Eos # (Auto) 1.1 H Baso # (Auto) 0.1 Neutrophils % (Manual) 79 H Band Neutrophils % Lymphocytes % (Manual) 6 L Monocytes % (Manual) 9 Eosinophils % (Manual) 6 H Platelet Estimate Slightly decreased L Large Platelets Hypochromasia (manual) Slight Basophilic Stippling Ovalocytes PT 13.6 H INR 1.2 APTT 38 H Puncture Site pCO2 pO2 HCO3 ABG pH ABG Total CO2 ABG O2 Saturation ABG Base Excess Jimenez Test ABG Potassium A-a O2 Difference Respiratory Index Glucose Lactate Vent Mode Mechanical Rate FiO2 Tidal Volume PEEP Sodium Potassium Chloride Carbon Dioxide Anion Gap BUN Creatinine Est GFR ( Amer) Est GFR (Non-Af Amer) POC Glucose (mg/dL) Random Glucose Calcium Phosphorus Magnesium Total Bilirubin AST ALT Alkaline Phosphatase Total Creatine Kinase 386 H Troponin I 0.0300 Total Protein Albumin Globulin Albumin/Globulin Ratio Arterial Blood Potassium Urine Color Urine Clarity Urine pH Ur Specific [place] Urine Protein Urine Glucose (UA) Urine Ketones Urine Blood Urine Nitrate Urine Bilirubin Urine Urobilinogen Ur Leukocyte Esterase Urine WBC (Auto) Urine RBC (Auto) Urine WBC Clumps (Auto) Ur Squamous Epith Cells Urine Bacteria Urine Opiates Screen Urine Methadone Screen Ur Barbiturates Screen Ur Phencyclidine Scrn Ur Amphetamines Screen U Benzodiazepines Scrn U Oth Cocaine Metabols U Cannabinoids Screen 10/06/18 10/06/18 10/06/18 16:02 16:05 17:00 WBC RBC Hgb Hct MCV MCH MCHC RDW Plt Count MPV Neut % (Auto) Lymph % (Auto) [place] % (Auto) Eos % (Auto) Baso % (Auto) Neut # (Auto) Lymph # (Auto) [place] # (Auto) Eos # (Auto) Baso # (Auto) Neutrophils % (Manual) Band Neutrophils % Lymphocytes % (Manual) Monocytes % (Manual) Eosinophils % (Manual) Platelet Estimate Large Platelets Hypochromasia (manual) Basophilic Stippling Ovalocytes PT INR APTT Puncture Site pCO2 pO2 HCO3 ABG pH ABG Total CO2 ABG O2 Saturation ABG Base Excess Jimenez Test ABG Potassium A-a O2 Difference Respiratory Index Glucose Lactate Vent Mode Mechanical Rate FiO2 Tidal Volume PEEP Sodium Potassium Chloride Carbon Dioxide Anion Gap BUN Creatinine Est GFR ( Amer) Est GFR (Non-Af Amer) POC Glucose (mg/dL) 66 72 64 L Random Glucose Calcium Phosphorus Magnesium Total Bilirubin AST ALT Alkaline Phosphatase Total Creatine Kinase Troponin I Total Protein Albumin Globulin Albumin/Globulin Ratio Arterial Blood Potassium Urine Color Urine Clarity Urine pH Ur Specific [place] Urine Protein Urine Glucose (UA) Urine Ketones Urine Blood Urine Nitrate Urine Bilirubin Urine Urobilinogen Ur Leukocyte Esterase Urine WBC (Auto) Urine RBC (Auto) Urine WBC Clumps (Auto) Ur Squamous Epith Cells Urine Bacteria Urine Opiates Screen Urine Methadone Screen Ur Barbiturates Screen Ur Phencyclidine Scrn Ur Amphetamines Screen U Benzodiazepines Scrn U Oth Cocaine Metabols U Cannabinoids Screen 10/06/18 10/06/18 17:03 18:10 WBC RBC Hgb Hct MCV MCH MCHC RDW Plt Count MPV Neut % (Auto) Lymph % (Auto) [place] % (Auto) Eos % (Auto) Baso % (Auto) Neut # (Auto) Lymph # (Auto) [place] # (Auto) Eos # (Auto) Baso # (Auto) Neutrophils % (Manual) Band Neutrophils % Lymphocytes % (Manual) Monocytes % (Manual) Eosinophils % (Manual) Platelet Estimate Large Platelets Hypochromasia (manual) Basophilic Stippling Ovalocytes PT INR APTT Puncture Site pCO2 pO2 HCO3 ABG pH ABG Total CO2 ABG O2 Saturation ABG Base Excess Jimenez Test ABG Potassium A-a O2 Difference Respiratory Index Glucose Lactate Vent Mode Mechanical Rate FiO2 Tidal Volume PEEP Sodium Potassium Chloride Carbon Dioxide Anion Gap BUN Creatinine Est GFR ( Amer) Est GFR (Non-Af Amer) POC Glucose (mg/dL) 68 196 H Random Glucose Calcium Phosphorus Magnesium Total Bilirubin AST ALT Alkaline Phosphatase Total Creatine Kinase Troponin I Total Protein Albumin Globulin Albumin/Globulin Ratio Arterial Blood Potassium Urine Color Urine Clarity Urine pH Ur Specific [place] Urine Protein Urine Glucose (UA) Urine Ketones Urine Blood Urine Nitrate Urine Bilirubin Urine Urobilinogen Ur Leukocyte Esterase Urine WBC (Auto) Urine RBC (Auto) Urine WBC Clumps (Auto) Ur Squamous Epith Cells Urine Bacteria Urine Opiates Screen Urine Methadone Screen Ur Barbiturates Screen Ur Phencyclidine Scrn Ur Amphetamines Screen U Benzodiazepines Scrn U Oth Cocaine Metabols U Cannabinoids Screen
[2018-10-06 21:07] LABS: HEMOGLOBIN 10.5 g/dL (11.0-16.0); MEAN CELL VOLUME 84.6 fL (81.0-99.0); MEAN CORPUSCULAR HEMOGLOBIN 26.5 pg (27.0-31.0); MEAN CORPUSCULAR HGB CONC 31.3 g/dL (33.0-37.0); MEAN PLATELET VOLUME 9.1 fL (7.2-11.7); RBC 3.96 Mil/uL (3.80-5.20); RED CELL DISTRIBUTION WIDTH 14.9 % (11.5-14.5); WHITE BLOOD COUNT 12.1 K/uL (4.8-10.8)
[2018-10-06 21:14] LABS: INR 1.3; PROTHROMBIN TIME 13.9 SECONDS (9.7-12.2)
[2018-10-06 21:20] LABS: ALB/GLOB RATIO 1.3 (1.0-2.1); ALBUMIN 3.5 g/dL (3.5-5.0); CALCIUM 8.4 mg/dl (8.6-10.4)
[2018-10-06 21:31] LABS: CK-MB 8.78 ng/mL (0.0-3.38); TROPONIN I 0.025 ng/mL (0.00-0.120)
[2018-10-06] MEDS: Insulin Detemir 100 units/ml Vial (Levemir) SC SCH (22:00)
[2018-10-07] MEDS: Aritificial Tears (15ml) OU SCH ×4 (00:27→17:37)
[2018-10-07] MEDS ORDERED: Dextrose 50% SYRINGE Inj (50 ml) IV STA (04:38)
--- NOTE | 2018-10-07 04:43 | CP.PCM.PCO ---
Physician Communication Note - Physician Communication Note Physician Communication Note: Amp d50 given overnight for low blood sugar
[2018-10-07 05:23] LABS: ABG ALLEN TEST POS; ARTERIAL BLOOD GAS HCO3 25.7 mmol/L (21-28); ARTERIAL BLOOD GAS O2 SAT 98.9 % (95-98); ARTERIAL BLOOD GAS PCO2 53 mm/Hg (35-45); ARTERIAL BLOOD GAS PH 7.33 (7.35-7.45); ARTERIAL BLOOD GAS PO2 125 mm/Hg (80-100); ARTERIAL BLOOD GAS TCO2 29.5 mmol/L (22-28)
[2018-10-07] MEDS: Piperacill/Tazo 2.25gm in Dex 2.25 GM/50 ML BAG IVPB SCH ×3 (06:00→21:11)
[2018-10-07] MEDS: (Novolin R) Insulin Human Regular 100 units/ml vial SC SCH ×4 (06:00→17:36)
[2018-10-07 06:19] LABS: BASO # 0.1 K/uL (0.0-0.2); BASO % 0.6 % (0.0-2.0); EOS # 1.4 K/uL (0.0-0.7); EOS % 10.6 % (0.0-4.0); LYMPH # 0.7 K/uL (1.0-4.3); LYMPH % 5.3 % (20.0-40.0); MEAN CELL VOLUME 84.7 fL (81.0-99.0); MEAN CORPUSCULAR HEMOGLOBIN 26.8 pg (27.0-31.0); MEAN CORPUSCULAR HGB CONC 31.7 g/dL (33.0-37.0); MEAN PLATELET VOLUME 10.2 fL (7.2-11.7); MONO # 0.9 K/uL (0.0-0.8); MONO % 6.4 % (0.0-10.0); NEUT # 10.3 K/uL (1.8-7.0); NEUT % 77.1 % (50.0-75.0); PLATELET COUNT 145 K/uL (130-400); RBC 3.72 Mil/uL (3.80-5.20); RED CELL DISTRIBUTION WIDTH 15.1 % (11.5-14.5); WHITE BLOOD COUNT 13.4 K/uL (4.8-10.8)
[2018-10-07] MEDS: Levothyroxine 50 MCG TAB PO SCH (06:28)
[2018-10-07 06:33] LABS: ALB/GLOB RATIO 1.2 (1.0-2.1); ALBUMIN 3.1 g/dL (3.5-5.0)
[2018-10-07] MEDS: Propofol 10 mg/ml 1,000 MG/100 ML VIAL IV PRN (07:57)
[2018-10-07 08:48] LABS: BANDS 5 % (0-2); EOSINOPHIL 11 % (0-4); LYMPHOCYTE 5 % (20-40); MONOCYTE 5 % (0-10); NEUTROPHIL 74 % (50-75); TOTAL CELLS COUNTED 100
[2018-10-07 08:49] LABS: ANISOCYTOSIS SLIGHT; GIANT PLATELETS PRESENT; HYPOCHROMIC SLIGHT; PLATELET ESTIMATE NORMAL (NORMAL); POIKILOCYTOSIS SLIGHT; POLYCHROMIC SLIGHT; SCHISTOCYTES SLIGHT
[2018-10-07 08:50] LABS: LARGE PLATELETS PRESENT; OVALOCYTES SLIGHT; TOXIC GRANULATION PRESENT
--- NOTE | 2018-10-07 09:10 | CP.PCM.PN ---
Subjective - Date & Time of Evaluation Date of Evaluation: 10/07/18 Time of Evaluation: 09:07 - Subjective Subjective: Patient underwent a rewarming phase of the hypothermia protocol. Patient is now having normal temperature. Still on sedation at this time. Possibly she will be getting hemodialysis today. Not responding, and also having hypoxic posturing noted. On ventilator. Oxygen saturation is normal. Chest bilateral diffuse wheezing noted Regular heart sounds Abdomen soft obesity present. Pedal edema noted. Patient's labs reviewed ABG reviewed Chest x-ray reviewed Pulmonary edema pattern noted. Patient also started on OG tube feeding at this time. She will be possibly getting the hemodialysis today. Also patient will be getting the CAT scan of the head. Later will do the sedation vacation, and neurological workup and neurological evaluation will be done. At this time it is very unclear whether the patient is still anoxic. Overall prognosis very poor. I spoke with the patient's family yesterday in detail. We will continue to monitor ICU management and will follow the patient. Objective - Vital Signs/Intake and Output Vital Signs (last 24 hours): Temp Pulse Resp BP Pulse Ox 93.7 F L 69 18 114/56 L 100 10/07/18 07:00 10/07/18 07:00 10/07/18 07:00 10/07/18 07:00 10/07/18 07:00 Intake and Output: 10/07/18 10/07/18 06:59 18:59 Intake Total 375.3 67.1 Output Total 94 5 Balance 281.3 62.1 - Medications Medications: Current Medications Acetaminophen (Tylenol 325mg Tab) 650 mg PO Q6H PRN PRN Reason: Pain, Mild (1-3) Last Admin: 10/06/18 11:15 Dose: 650 mg Artificial Tears (Artificial Tears) 0 ml OU Q6 [facility] Last Admin: 10/07/18 06:13 Dose: 1 drop Aspirin (Ecotrin) 81 mg PO DAILY [facility] Last Admin: 10/06/18 11:45 Dose: 81 mg Calcium Acetate (Phoslo) 667 mg PO TIDCC [facility] Last Admin: 10/07/18 07:58 Dose: 667 mg Carvedilol (Coreg) 25 mg PO BID [facility] Epoetin Dedrick (Procrit) 10,000 unit IV TTS [facility] Last Admin: 10/06/18 10:47 Dose: Not Given Heparin Sodium (Porcine) (Heparin) 5,000 units SC Q12 [facility] Last Admin: 10/06/18 22:00 Dose: 5,000 units Hydralazine HCl (Apresoline) 50 mg PO BID [facility] Last Admin: 10/05/18 18:00 Dose: Not Given Hydrocortisone (Cortef) 5 mg PO DAILY [facility] Last Admin: 10/06/18 11:00 Dose: 5 mg Ferric Sodium Gluconate Complex 125 mg/ Sodium Chloride 110 mls @ 110 mls/hr IVPB DAILY [facility] Stop: 10/14/18 10:01 Last Admin: 10/06/18 11:17 Dose: 110 mls/hr Propofol (Diprivan) 1,000 mg in 100 mls @ 2.735 mls/hr IV .Q24H PRN; Protocol PRN Reason: TITRATE PER MD ORDER Last Admin: 10/07/18 07:57 Dose: 10.23 mcg/kg/min, 5.6 mls/hr Piperacillin Sod/Tazobactam Sod (Zosyn 2.25 Gm Iv Premix) 2.25 gm in 50 mls @ 100 mls/hr IVPB Q8 [facility]; Protocol Last Admin: 10/07/18 06:00 Dose: 100 mls/hr Levetiracetam 750 mg/ Dextrose 107.5 mls @ 420 mls/hr IVPB Q12H [facility] Last Admin: 10/07/18 04:00 Dose: 420 mls/hr Dextrose (Dextrose 10% In Water) 500 mls @ 20 mls/hr IV .Q24H [facility] Last Admin: 10/06/18 18:47 Dose: Not Given Insulin Detemir (Levemir) 20 unit SC HS [facility] Last Admin: 10/06/18 22:00 Dose: Not Given Insulin Human Regular (Novolin R) 0 unit SC Q6H [facility]; Protocol Last Admin: 10/07/18 06:00 Dose: Not Given Isosorbide Mononitrate (Imdur Er) 30 mg PO DAILY [facility] Last Admin: 10/06/18 11:16 Dose: 30 mg Levothyroxine Sodium (Synthroid) 50 mcg PO 0600 [facility] Last Admin: 10/07/18 06:28 Dose: 50 mcg Pantoprazole Sodium (Protonix Inj) 40 mg IVP DAILY [facility] Last Admin: 10/06/18 11:14 Dose: 40 mg Propofol (Diprivan) 100 mg IV TITR [facility] Last Admin: 10/06/18 17:21 Dose: 100 mg Rosuvastatin Calcium (Crestor) 10 mg PO HS [facility] Last Admin: 10/06/18 22:30 Dose: 10 mg - Labs Labs: 10/07/18 06:10 10/07/18 06:10 PT 13.9 SECONDS (9.7-12.2) H 10/06/18 21:04 INR 1.3 10/06/18 21:04 APTT 45 SECONDS (21-34) H D 10/06/18 21:04 Assessment and Plan (1) Acute on chronic renal failure Status: Acute (2) Diabetic nephropathy associated with type 2 diabetes mellitus Status: Acute (3) Uremia, acute Status: Acute
--- NOTE | 2018-10-07 10:23 | CT ---
Date of service: 10/07/2018 PROCEDURE: CT HEAD WITHOUT CONTRAST. HISTORY: CODE FREEZE SEIZURES POST CARDIO RESP COMPARISON: Noncontrast head CT performed 10/05/18 TECHNIQUE: Axial computed tomography images were obtained through the head/brain without intravenous contrast. Radiation dose: Total exam DLP = 1667.49 mGy-cm. This CT exam was performed using one or more of the following dose reduction techniques: Automated exposure control, adjustment of the mA and/or kV according to patient size, and/or use of iterative reconstruction technique. FINDINGS: Intubated. Streak artifact obscures evaluation of the skull base. HEMORRHAGE: No intracranial hemorrhage. BRAIN: No mass effect or midline shift. Intracranial atherosclerosis. Moderate white matter hypodensities, which are nonspecific, but often seen with chronic microvascular ischemic disease. Please note that MRI with diffusion imaging is more sensitive in the detection of acute ischemic event. VENTRICLES: No hydrocephalus. CALVARIUM: Unremarkable. PARANASAL SINUSES: Fluid and mucosal thickening of the right sphenoid sinus. Extensive opacification of the ethmoid air cells, sphenoid sinus. Small mucosal polyp/cysts within the left maxillary sinus. MASTOID AIR CELLS: Unremarkable as visualized. No inflammatory changes. OTHER FINDINGS: None. IMPRESSION: Limited study. Nonspecific white matter changes. Fluid and mucosal thickening of the right sphenoid sinus. Extensive opacification of the ethmoid air cells, sphenoid sinus. Small mucosal polyp/cysts within the left maxillary sinus.
--- NOTE | 2018-10-07 11:49 | RAD ---
HISTORY: intubated COMPARISON: Chest x-ray performed 10/06/18 TECHNIQUE: Chest, one view. FINDINGS: LUNGS: Moderate pulmonary venous congestion. Bilateral hilar prominence. PLEURA: No significant pleural effusion identified. No definite pneumothorax . CARDIOVASCULAR: Cardiomegaly. Ectatic aorta. Atherosclerotic calcifications present. OSSEOUS STRUCTURES: Degenerative changes. VISUALIZED UPPER ABDOMEN: Unremarkable. OTHER FINDINGS: None. IMPRESSION: Endotracheal tube terminates approximately 3 cm above the kaylah. Moderate pulmonary venous congestion. Bilateral hilar prominence. Cardiomegaly.
--- NOTE | 2018-10-07 14:27 | CP.PCM.PN ---
Subjective - Date & Time of Evaluation Date of Evaluation: 10/07/18 Time of Evaluation: 14:19 - Subjective Subjective: Patient moving head side to side, spontaneously but not following commands yet. Head CT no acute changes. Objective - Vital Signs/Intake and Output Vital Signs (last 24 hours): Temp Pulse Resp BP Pulse Ox 100.9 F H 82 19 149/39 L 100 10/07/18 12:00 10/07/18 13:00 10/07/18 13:00 10/07/18 13:30 10/07/18 13:00 Intake and Output: 10/07/18 10/07/18 06:59 18:59 Intake Total 375.3 342.5 Output Total 94 35 Balance 281.3 307.5 - Medications Medications: Current Medications Acetaminophen (Tylenol 325mg Tab) 650 mg PO Q6H PRN PRN Reason: Pain, Mild (1-3) Last Admin: 10/06/18 11:15 Dose: 650 mg Artificial Tears (Artificial Tears) 0 ml OU Q6 [facility] Last Admin: 10/07/18 06:13 Dose: 1 drop Aspirin (Aspirin Chewable) 81 mg PO DAILY [facility] Calcium Acetate (Phoslo) 667 mg PO TIDCC [facility] Last Admin: 10/07/18 13:12 Dose: 667 mg Carvedilol (Coreg) 25 mg PO BID [facility] Epoetin Dedrick (Procrit) 10,000 unit IV TTS [facility] Last Admin: 10/06/18 10:47 Dose: Not Given Heparin Sodium (Porcine) (Heparin) 5,000 units SC Q12 [facility] Last Admin: 10/07/18 09:58 Dose: 5,000 units Hydralazine HCl (Apresoline) 50 mg PO BID [facility] Last Admin: 10/05/18 18:00 Dose: Not Given Hydrocortisone (Cortef) 5 mg PO DAILY [facility] Last Admin: 10/07/18 09:59 Dose: 5 mg Ferric Sodium Gluconate Complex 125 mg/ Sodium Chloride 110 mls @ 110 mls/hr IVPB DAILY [facility] Stop: 10/14/18 10:01 Last Admin: 10/06/18 11:17 Dose: 110 mls/hr Propofol (Diprivan) 1,000 mg in 100 mls @ 2.735 mls/hr IV .Q24H PRN; Protocol PRN Reason: TITRATE PER MD ORDER Last Titration: 10/07/18 10:00 Dose: 6 mcg/kg/min, 3.282 mls/hr Piperacillin Sod/Tazobactam Sod (Zosyn 2.25 Gm Iv Premix) 2.25 gm in 50 mls @ 100 mls/hr IVPB Q8 [facility]; Protocol Last Admin: 10/07/18 06:00 Dose: 100 mls/hr Levetiracetam 750 mg/ Dextrose 107.5 mls @ 420 mls/hr IVPB Q12H [facility] Last Admin: 10/07/18 04:00 Dose: 420 mls/hr Dextrose (Dextrose 10% In Water) 500 mls @ 20 mls/hr IV .Q24H [facility] Last Admin: 10/06/18 18:47 Dose: Not Given Insulin Detemir (Levemir) 20 unit SC [facility] Last Admin: 10/06/18 22:00 Dose: Not Given Insulin Human Regular (Novolin R) 0 unit SC Q6H [facility]; Protocol Last Admin: 10/07/18 13:07 Dose: 1 u Isosorbide Dinitrate (Isordil) 10 mg NG Q8H [facility] Last Admin: 10/07/18 13:10 Dose: 10 mg Levothyroxine Sodium (Synthroid) 50 mcg PO 0600 [facility] Last Admin: 10/07/18 06:28 Dose: 50 mcg Pantoprazole Sodium (Protonix Inj) 40 mg IVP DAILY [facility] Last Admin: 10/07/18 09:58 Dose: 40 mg Propofol (Diprivan) 100 mg IV TITR [facility] Last Admin: 10/06/18 17:21 Dose: 100 mg Rosuvastatin Calcium (Crestor) 10 mg PO [facility] Last Admin: 10/06/18 22:30 Dose: 10 mg - Labs Labs: 10/07/18 06:10 10/07/18 06:10 PT 13.9 SECONDS (9.7-12.2) H 10/06/18 21:04 INR 1.3 10/06/18 21:04 APTT 45 SECONDS (21-34) H D 10/06/18 21:04 - Additional Findings Additional findings: * HEENT PUSHPA * Neck short, hd cath in the neck right side * Chest clear * CVS regular, no gallop or rub * PA soft * Ext no edema * [employer] not following commands, has corneal, conjuctival and gag response Assessment and Plan - Assessment and Plan (Free Text) Assessment: * S/p cardiac arrest, hypothermia now rewarmed, with some spontaneous movements appear purposefull * ESRD on hd * DM on insulin * Obese Plan: * Supportive care * Maintain euglycemia * Maintain spo2 around 90% * Sedation vacation to see patient's response * GI/DVT prophylaxis * Possible early hd. * See orders for detail.
[2018-10-07] MEDS: Ferric Sodium Gluconat Complex 125 MG in Sodium Chloride 0.9% 100 ML IVPB SCH (15:53)
--- NOTE | 2018-10-07 19:32 | CP.PCM.PN ---
Subjective - Date & Time of Evaluation Date of Evaluation: 10/07/18 Time of Evaluation: 19:31 - Subjective Subjective: Patient seen and evaluated On Ventilator Unresponsive to commands Review of Systems - Review of Systems Systems not reviewed;Unavailable: Intubated Physical Exam - Constitutional Additional comments: AMS - Head Exam Head Exam: NORMAL INSPECTION, NORMOCEPHALIC - Eye Exam Eye Exam: absent: Nystagmus, PERRL, Scleral icterus - ENT Exam ENT Exam: Mucous Membranes Moist - Neck Exam Additional comments: shiley in right side of neck - Respiratory Exam Respiratory Exam: Clear to Auscultation Bilateral, NORMAL BREATHING PATTERN. absent: Rhonchi, Wheezes Additional comments: Intubated with ET tube - Cardiovascular Exam Cardiovascular Exam: Bradycardia, REGULAR RHYTHM, +S1, +S2. absent: Irregular Rhythm - GI/Abdominal Exam GI & Abdominal Exam: Normal Bowel Sounds, Soft. absent: Diminished Bowel So unds, Distended, Firm, Guarding - Extremities Exam Extremities exam: Positive for: normal inspection. Negative for: calf tenderness, pedal edema - Neurological Exam Additional comments: AMS, not alert awake or oriented - Skin Skin Exam: Intact, Normal Color Assessment & Plan - Assessment and Plan (Free Text) Assessment: Patient is a 72 yo female w/ PMH of DM2, HTN, CKD 5, CHF, CAD post stent, pituitary adenoma admitted for anoxia and Cardio respiratory arrest during AVF placement and catheter. Patient was intubated by anasthesia team en route Neuro non responsive to verbal or painful stimuli- possible AMS from sedation meds Was given fentanyl and versed during procedure CT head pending Pulm Intubated with ET tube (14,450,100%,5) maintain spo2> 92% ABG pending CV Unlikle primary cardiac event (Given normal stress test and Normal EF) EKG showed sinus bradycardia with first degree heart block Trops normal Aspirin daily Imdur/Hydralazine for bp management Crestor DVT prophylaxis Code Freeze initiated at 4:35 pm Endo Synthroid Levemir Hydrocortisone GI No active issues Protonix Renal Phoslo EPO Ferrlecit MWF dialysis through shiley Catheter placement and fistula placement DVT ppx: heparin GI ppx: Protonix Objective - Vital Signs/Intake and Output Vital Signs (last 24 hours): Temp Pulse Resp BP Pulse Ox 100.9 F H 74 18 146/48 L 100 10/07/18 18:00 10/07/18 19:00 10/07/18 19:00 10/07/18 18:28 10/07/18 19:00 Intake and Output: 10/07/18 10/08/18 18:59 06:59 Intake Total 813.6 45.6 Output Total 2070 5 Balance -1256.4 40.6 - Medications Medications: Current Medications Acetaminophen (Tylenol 325mg Tab) 650 mg PO Q6H PRN PRN Reason: Pain, Mild (1-3) Last Admin: 10/06/18 11:15 Dose: 650 mg Artificial Tears (Artificial Tears) 0 ml OU Q6 [facility] Last Admin: 10/07/18 17:37 Dose: 1 drop Aspirin (Aspirin Chewable) 81 mg PO DAILY [facility] Calcium Acetate (Phoslo) 667 mg PO TIDCC [facility] Last Admin: 10/07/18 17:38 Dose: 667 mg Carvedilol (Coreg) 25 mg PO BID [facility] Epoetin Dderick (Procrit) 10,000 unit IV TTS [facility] Last Admin: 10/06/18 10:47 Dose: Not Given Heparin Sodium (Porcine) (Heparin) 5,000 units SC Q12 [facility] Last Admin: 10/07/18 09:58 Dose: 5,000 units Hydralazine HCl (Apresoline) 50 mg PO BID [facility] Last Admin: 10/05/18 18:00 Dose: Not Given Hydrocortisone (Cortef) 5 mg PO DAILY [facility] Last Admin: 10/07/18 09:59 Dose: 5 mg Ferric Sodium Gluconate Complex 125 mg/ Sodium Chloride 110 mls @ 110 mls/hr IVPB DAILY [facility] Stop: 10/14/18 10:01 Last Admin: 10/07/18 15:53 Dose: 110 mls/hr Propofol (Diprivan) 1,000 mg in 100 mls @ 2.735 mls/hr IV .Q24H PRN; Protocol PRN Reason: TITRATE PER MD ORDER Last Titration: 10/07/18 13:00 Dose: 10 mcg/kg/min, 5.471 mls/hr Piperacillin Sod/Tazobactam Sod (Zosyn 2.25 Gm Iv Premix) 2.25 gm in 50 mls @ 100 mls/hr IVPB Q8 [facility]; Protocol Last Admin: 10/07/18 15:30 Dose: 100 mls/hr Levetiracetam 750 mg/ Dextrose 107.5 mls @ 420 mls/hr IVPB Q12H [facility] Last Admin: 10/07/18 15:30 Dose: 420 mls/hr Dextrose (Dextrose 10% In Water) 500 mls @ 20 mls/hr IV .Q24H [facility] Last Admin: 10/07/18 17:36 Dose: Not Given Insulin Detemir (Levemir) 20 unit SC [facility] Last Admin: 10/06/18 22:00 Dose: Not Given Insulin Human Regular (Novolin R) 0 unit SC Q6H [facility]; Protocol Last Admin: 10/07/18 17:36 Dose: 2 u Isosorbide Dinitrate (Isordil) 10 mg NG Q8H [facility] Last Admin: 10/07/18 13:10 Dose: 10 mg Levothyroxine Sodium (Synthroid) 50 mcg PO 0600 [facility] Last Admin: 10/07/18 06:28 Dose: 50 mcg Pantoprazole Sodium (Protonix Inj) 40 mg IVP DAILY [facility] Last Admin: 10/07/18 09:58 Dose: 40 mg Propofol (Diprivan) 100 mg IV TITR [facility] Last Admin: 10/06/18 17:21 Dose: 100 mg Rosuvastatin Calcium (Crestor) 10 mg PO HS [facility] Last Admin: 10/06/18 22:30 Dose: 10 mg - Labs Labs: 10/07/18 06:10 10/07/18 06:10 PT 13.9 SECONDS (9.7-12.2) H 10/06/18 21:04 INR 1.3 10/06/18 21:04 APTT 45 SECONDS (21-34) H D 10/06/18 21:04
[2018-10-07] MEDS ORDERED: Acetaminophen 650mg/20.3ml solution UD PO STA (20:15)
[2018-10-07] MEDS ORDERED: Vancomycin 1 gm/NS 200 ml 1 GM/200 ML BAG IVPB STA (20:45)
[2018-10-07] MEDS: Insulin Detemir 100 units/ml Vial (Levemir) SC SCH (21:15)
[2018-10-08] MEDS: (Novolin R) Insulin Human Regular 100 units/ml vial SC SCH ×4 (00:35→19:07)
[2018-10-08] MEDS: Aritificial Tears (15ml) OU SCH ×4 (00:35→17:10)
[2018-10-08] MEDS: Piperacill/Tazo 2.25gm in Dex 2.25 GM/50 ML BAG IVPB SCH ×3 (05:18→22:33)
[2018-10-08] MEDS: Levothyroxine 50 MCG TAB PO SCH (05:19)
[2018-10-08 05:45] LABS: ABG ALLEN TEST POS; ARTERIAL BLOOD GAS HCO3 28.3 mmol/L (21-28); ARTERIAL BLOOD GAS O2 SAT 99.1 % (95-98); ARTERIAL BLOOD GAS PCO2 40 mm/Hg (35-45); ARTERIAL BLOOD GAS PH 7.46 (7.35-7.45); ARTERIAL BLOOD GAS PO2 148 mm/Hg (80-100); ARTERIAL BLOOD GAS TCO2 29.6 mmol/L (22-28)
[2018-10-08 06:02] LABS: BASO # 0.1 K/uL (0.0-0.2); BASO % 0.6 % (0.0-2.0); EOS # 1.1 K/uL (0.0-0.7); EOS % 9.1 % (0.0-4.0); HEMOGLOBIN 8.1 g/dL (11.0-16.0); LYMPH # 1.5 K/uL (1.0-4.3); MEAN CORPUSCULAR HEMOGLOBIN 27.3 pg (27.0-31.0); MEAN CORPUSCULAR HGB CONC 32.2 g/dL (33.0-37.0); MEAN PLATELET VOLUME 10.4 fL (7.2-11.7); MONO # 1.1 K/uL (0.0-0.8); MONO % 8.8 % (0.0-10.0); NEUT # 8.8 K/uL (1.8-7.0); NEUT % 69.5 % (50.0-75.0); RBC 2.97 Mil/uL (3.80-5.20); RED CELL DISTRIBUTION WIDTH 14.5 % (11.5-14.5); WHITE BLOOD COUNT 12.6 K/uL (4.8-10.8)
[2018-10-08 06:05] LABS: URINE BILIRUBIN NEGATIVE (NEGATIVE); URINE BLOOD NEGATIVE (NEGATIVE); URINE CLARITY Hazy (Clear); URINE COLOR Amber (YELLOW); URINE GLUCOSE (UA) 2+ mg/dL (Normal)
[2018-10-08 06:06] LABS: SQUAMOUS EPITHIAL 6 /hpf (0-5); URINE BACTERIA MANY (<OCC); URINE LEUKOCYTE ESTERASE 2+ Leu/uL (Negative); URINE PROTEIN 3+ mg/dL (NEGATIVE); URINE UROBILINOGEN NORMAL mg/dL (0.2-1.0); WBC CLUMPS MANY /hpf
[2018-10-08 06:26] LABS: ALBUMIN 2.6 g/dL (3.5-5.0); CALCIUM 7.2 mg/dl (8.6-10.4)
--- NOTE | 2018-10-08 07:23 | CP.PCM.CON ---
History of Present Illness - History of Present Illness History of Present Illness: CONSULT DICTATED POST HYPOPERFUSION SYNDROME CONTINUE KEPPRA NOW EEG R/O PAROXYSMAL ACTIVITIES DVT PROPHYLAXIS Past Patient History - Infectious Disease Hx of Infectious Diseases: None - Past Medical History & Family History Past Medical History?: Yes - Past Social History Smoking Status: Never Smoked - CARDIAC Hx Congestive Heart Failure: Yes Hx Hypercholesterolemia: Yes Hx Hypertension: Yes - PULMONARY Hx Respiratory Disorders: No - NEUROLOGICAL Hx Neurological Disorder: No Hx Dizziness: Yes - HEENT Hx HEENT Problems: Yes Other/Comment: left eye drooping-blurry due to DM - RENAL Hx Chronic Kidney Disease: Yes - ENDOCRINE/METABOLIC Hx Diabetes Mellitus Type 2: Yes - HEMATOLOGICAL/ONCOLOGICAL Hx Blood Disorders: No - INTEGUMENTARY Hx Dermatological Problems: No - MUSCULOSKELETAL/RHEUMATOLOGICAL Hx Falls: Yes - GASTROINTESTINAL Hx Gastrointestinal Disorders: No - GENITOURINARY/GYNECOLOGICAL Hx Genitourinary Disorders: No - PSYCHIATRIC Hx Substance Use: No - SURGICAL HISTORY Hx Coronary Stent: Yes (10/2015) - ANESTHESIA Hx Anesthesia: Yes Hx Anesthesia Reactions: No Hx Malignant Hyperthermia: No Meds Allergies/Adverse Reactions: Allergies Allergy/AdvReac Type Severity Reaction Status Date / Time No Known Allergies Allergy Verified 07/21/18 12:21 - Medications Medications: Current Medications Acetaminophen (Tylenol 325mg Tab) 650 mg PO Q6H PRN PRN Reason: Pain, Mild (1-3) Last Admin: 10/06/18 11:15 Dose: 650 mg Artificial Tears (Artificial Tears) 0 ml OU Q6 [facility] Last Admin: 10/08/18 05:19 Dose: 1 drop Aspirin (Aspirin Chewable) 81 mg PO DAILY [facility] Calcium Acetate (Phoslo) 667 mg PO TIDCC [facility] Last Admin: 10/07/18 17:38 Dose: 667 mg Carvedilol (Coreg) 25 mg PO BID [facility] Epoetin Dedrick (Procrit) 10,000 unit IV TTS [facility] Last Admin: 10/06/18 10:47 Dose: Not Given Heparin Sodium (Porcine) (Heparin) 5,000 units SC Q12 [facility] Last Admin: 10/07/18 21:15 Dose: 5,000 units Hydralazine HCl (Apresoline) 50 mg PO BID [facility] Last Admin: 10/05/18 18:00 Dose: Not Given Hydrocortisone (Cortef) 5 mg PO DAILY [facility] Last Admin: 10/07/18 09:59 Dose: 5 mg Ferric Sodium Gluconate Complex 125 mg/ Sodium Chloride 110 mls @ 110 mls/hr IVPB DAILY [facility] Stop: 10/14/18 10:01 Last Admin: 10/07/18 15:53 Dose: 110 mls/hr Propofol (Diprivan) 1,000 mg in 100 mls @ 2.735 mls/hr IV .Q24H PRN; Protocol PRN Reason: TITRATE PER MD ORDER Last Titration: 10/07/18 21:37 Dose: 0 mcg/kg/min, 0 mls/hr Piperacillin Sod/Tazobactam Sod (Zosyn 2.25 Gm Iv Premix) 2.25 gm in 50 mls @ 100 mls/hr IVPB Q8 [facility]; Protocol Last Admin: 10/08/18 05:18 Dose: 100 mls/hr Levetiracetam 750 mg/ Dextrose 107.5 mls @ 420 mls/hr IVPB Q12H [facility] Last Admin: 10/08/18 03:36 Dose: 420 mls/hr Dextrose (Dextrose 10% In Water) 500 mls @ 20 mls/hr IV .Q24H [facility] Last Admin: 10/07/18 17:36 Dose: Not Given Insulin Detemir (Levemir) 20 unit SC [facility] Last Admin: 10/07/18 21:15 Dose: 20 units Insulin Human Regular (Novolin R) 0 unit SC Q6H [facility]; Protocol Last Admin: 10/08/18 05:19 Dose: 4 u Isosorbide Dinitrate (Isordil) 10 mg NG Q8H [facility] Last Admin: 10/08/18 05:19 Dose: 10 mg Levothyroxine Sodium (Synthroid) 50 mcg PO 0600 [facility] Last Admin: 10/08/18 05:19 Dose: 50 mcg Pantoprazole Sodium (Protonix Inj) 40 mg IVP DAILY [facility] Last Admin: 10/07/18 09:58 Dose: 40 mg Propofol (Diprivan) 100 mg IV TITR [facility] Last Admin: 10/06/18 17:21 Dose: 100 mg Rosuvastatin Calcium (Crestor) 10 mg PO HS [facility] Last Admin: 10/07/18 21:16 Dose: 10 mg Results - Vital Signs Recent Vital Signs: Last Vital Signs Temp 100 F H 10/08/18 04:00 Pulse 62 10/08/18 06:00 Resp 18 10/08/18 06:00 BP 131/51 L 10/08/18 05:28 Pulse Ox 100 10/08/18 06:00 - Labs Result Diagrams: 10/08/18 05:52 10/08/18 05:52 Labs: Laboratory Results - last 24 hr 10/07/18 10/07/18 10/07/18 06:10 11:08 17:24 WBC RBC Hgb Hct MCV MCH MCHC RDW Plt Count MPV Neut % (Auto) Lymph % (Auto) Cloud % (Auto) Eos % (Auto) Baso % (Auto) Neut # (Auto) Lymph # (Auto) Cloud # (Auto) Eos # (Auto) Baso # (Auto) Neutrophils % (Manual) 74 Band Neutrophils % 5 H Lymphocytes % (Manual) 5 L Monocytes % (Manual) 5 Eosinophils % (Manual) 11 H Toxic Granulation Present Platelet Estimate Normal Large Platelets Present Giant Platelets Present Polychromasia Slight Hypochromasia (manual) Slight Poikilocytosis (manual Slight Anisocytosis (manual) Slight Ovalocytes Slight Schistocytes Slight Puncture Site pCO2 pO2 HCO3 ABG pH ABG Total CO2 ABG O2 Saturation ABG Base Excess Jimenez Test ABG Potassium A-a O2 Difference Respiratory Index Sodium Chloride Glucose Lactate Vent Mode Mechanical Rate FiO2 Tidal Volume PEEP Potassium Carbon Dioxide Anion Gap BUN Creatinine Est GFR ( Amer) Est GFR (Non-Af Amer) POC Glucose (mg/dL) 158 H 203 H Random Glucose Calcium Phosphorus Magnesium Total Bilirubin AST ALT Alkaline Phosphatase Total Protein Albumin Globulin Albumin/Globulin Ratio Arterial Blood Potassium Urine Color Urine Clarity Urine pH Ur Specific [place] Urine Protein Urine Glucose (UA) Urine Ketones Urine Blood Urine Nitrate Urine Bilirubin Urine Urobilinogen Ur Leukocyte Esterase Urine WBC (Auto) Urine RBC (Auto) Urine WBC Clumps (Auto) Ur Squamous Epith Cells Urine Bacteria 10/07/18 10/08/18 10/08/18 23:23 05:05 05:14 WBC RBC Hgb Hct MCV MCH MCHC RDW Plt Count MPV Neut % (Auto) Lymph % (Auto) Cloud % (Auto) Eos % (Auto) Baso % (Auto) Neut # (Auto) Lymph # (Auto) Cloud # (Auto) Eos # (Auto) Baso # (Auto) Neutrophils % (Manual) Band Neutrophils % Lymphocytes % (Manual) Monocytes % (Manual) Eosinophils % (Manual) Toxic Granulation Platelet Estimate Large Platelets Giant Platelets Polychromasia Hypochromasia (manual) Poikilocytosis (manual Anisocytosis (manual) Ovalocytes Schistocytes Puncture Site Rr pCO2 40 pO2 148 H HCO3 28.3 H ABG pH 7.46 H ABG Total CO2 29.6 H ABG O2 Saturation 99.1 H ABG Base Excess 4.2 H Jimenez Test Pos ABG Potassium 2.7 L A-a O2 Difference 159.0 Respiratory Index 1.1 Sodium 134.0 Chloride 102.0 Glucose 298 H Lactate 0.8 Vent Mode Prvc Mechanical Rate 18 FiO2 50.0 Tidal Volume 450 PEEP 5 Potassium Carbon Dioxide Anion Gap BUN Creatinine Est GFR ( Amer) Est GFR (Non-Af Amer) POC Glucose (mg/dL) 287 H 310 H Random Glucose Calcium Phosphorus Magnesium Total Bilirubin AST ALT Alkaline Phosphatase Total Protein Albumin Globulin Albumin/Globulin Ratio Arterial Blood Potassium 2.7 L Urine Color Urine Clarity Urine pH Ur Specific [place] Urine Protein Urine Glucose (UA) Urine Ketones Urine Blood Urine Nitrate Urine Bilirubin Urine Urobilinogen Ur Leukocyte Esterase Urine WBC (Auto) Urine RBC (Auto) Urine WBC Clumps (Auto) Ur Squamous Epith Cells Urine Bacteria 10/08/18 10/08/18 10/08/18 05:52 05:52 05:52 WBC 12.6 H RBC 2.97 L Hgb 8.1 L Hct 25.3 L MCV 85.0 MCH 27.3 MCHC 32.2 L RDW 14.5 Plt Count 129 L MPV 10.4 Neut % (Auto) 69.5 Lymph % (Auto) 12.0 L Cloud % (Auto) 8.8 Eos % (Auto) 9.1 H Baso % (Auto) 0.6 Neut # (Auto) 8.8 H Lymph # (Auto) 1.5 Cloud # (Auto) 1.1 H Eos # (Auto) 1.1 H Baso # (Auto) 0.1 Neutrophils % (Manual) Band Neutrophils % Lymphocytes % (Manual) Monocytes % (Manual) Eosinophils % (Manual) Toxic Granulation Platelet Estimate Large Platelets Giant Platelets Polychromasia Hypochromasia (manual) Poikilocytosis (manual Anisocytosis (manual) Ovalocytes Schistocytes Puncture Site pCO2 pO2 HCO3 ABG pH ABG Total CO2 ABG O2 Saturation ABG Base Excess Jimenez Test ABG Potassium A-a O2 Difference Respiratory Index Sodium 131 L Chloride 95 L Glucose Lactate Vent Mode Mechanical Rate FiO2 Tidal Volume PEEP Potassium 3.0 L Carbon Dioxide 30 Anion Gap 9 L BUN 26 H Creatinine 3.3 H Est GFR ( Amer) 17 Est GFR (Non-Af Amer) 14 POC Glucose (mg/dL) Random Glucose 279 H D Calcium 7.2 L Phosphorus 1.9 L Magnesium 1.8 Total Bilirubin 0.5 AST 36 D ALT 50 Alkaline Phosphatase 134 H D Total Protein 5.1 L Albumin 2.6 L Globulin 2.5 Albumin/Globulin Ratio 1.0 Arterial Blood Potassium Urine Color Tracy Urine Clarity Hazy Urine pH 5.0 Ur Specific [place] 1.028 Urine Protein 3+ H Urine Glucose (UA) 2+ H Urine Ketones Negative Urine Blood Negative Urine Nitrate Negative Urine Bilirubin Negative Urine Urobilinogen Normal Ur Leukocyte Esterase 2+ H Urine WBC (Auto) 641 H Urine RBC (Auto) 16 H Urine WBC Clumps (Auto) Many H Ur Squamous Epith Cells 6 H Urine Bacteria Many H
--- NOTE | 2018-10-08 08:54 | RAD ---
Date of service: 10/08/2018 HISTORY: intubated COMPARISON: Portable chest 10/07/2018. FINDINGS: LUNGS: Endotracheal and nasogastric tubes do not appear significantly changed in position as well as right central venous dialysis catheter. Somewhat improved aeration is appreciated bilaterally in the current exam reflecting improved pulmonary vascular congestion. PLEURA: No significant pleural effusion identified, no pneumothorax apparent. CARDIOVASCULAR: Calcific atherosclerotic changes are seen related to the thoracic aorta. Stable cardiac silhouette. Improved pulmonary vascular congestion. OSSEOUS STRUCTURES: No significant abnormalities. VISUALIZED UPPER ABDOMEN: Normal. OTHER FINDINGS: None. IMPRESSION: Improved pulmonary vascular congestion. Stable cardiomegaly.
[2018-10-08] MEDS ORDERED: Potassium Chloride 20 mEq/15 ml LIQ UD GT ONE (09:15)
--- NOTE | 2018-10-08 10:32 | CP.CCUPN ---
<Taylor Bowden - Last Filed: 10/08/18 10:51> CCU Subjective - Physician Review Subjective (Free Text): 10/08/18 10:47 ICU Progress Note for Dr. Orlando Patient seen and examined at bedside this morning. Patient was able to respond to simple commands such as open and close her eyes. Patient did not raise her arms on command. Due to patient condition ROS unable to be obtained. 10/08/18 10:49 CCU Objective - Vital Signs / Intake & Output Vital Signs (Last 4 hours): Vital Signs Temp Pulse Resp BP Pulse Ox 10/08/18 08:28 82 14 142/58 L 100 10/08/18 08:00 100.4 F H 75 17 100 10/08/18 07:28 64 18 139/55 L 100 10/08/18 07:00 66 15 100 10/08/18 06:28 63 18 141/55 L 100 Intake and Output (Last 8hrs): Intake & Output 10/07/18 10/08/18 10/08/18 22:59 06:59 14:59 Intake Total 909.8 380 80 Output Total 2035 15 0 Balance -1125.2 365 80 Weight 215 lb 8 oz Intake: IV 45 Intake, IV Amount 444.8 0 Right Medial Port Femoral 400 Right Proximal Port 44.8 0 Femoral Tube Feeding 320 320 80 Other 100 60 Output: Urine 35 15 0 Urethral (Rodriguez) 35 15 0 Other 2000 Other: # Bowel Movements 1 - Physical Exam Physical Exam Limitations: Positive for: Other (intubated) Head: Positive for: Atraumatic, Normocephalic Extroacular Muscles: Positive for: EOMI (dropping eyelid left) Conjunctiva: Positive for: Normal Mouth: Positive for: Moist Mucous Membranes (drooling on ET tube) Respiratory/Chest: Positive for: Clear to Auscultation, Good Air Exchange Cardiovascular: Positive for: Regular Rate and Rhythm Abdomen: Positive for: Normal Bowel Sounds. Negative for: Tenderness, Rebound, Guarding Upper Extremity: Positive for: NORMAL PULSES, Capillary Refill < 2s. Negative for: Cyanosis Lower Extremity: Positive for: NORMAL PULSES, Capillary Refill < 2 s Neurological: Positive for: Other (unable to assess due to patient condition) Skin: Positive for: Warm, Dry, Normal Color Psychiatric: Positive for: Lethargic - Medications Active Medications: Active Medications Generic Name Dose Route Start Last Admin Trade Name Freq PRN Reason Stop Dose Admin Acetaminophen 650 mg 09/29/18 08:30 10/06/18 11:15 Tylenol 325mg Tab PO 650 mg Q6H PRN Administration Pain, Mild (1-3) Acetaminophen 650 mg 10/08/18 10:08 Tylenol 325mg Tab PO Q6 PRN pain+fever Artificial Tears 0 ml 10/07/18 00:00 10/08/18 05:19 Artificial Tears OU 1 drop Q6 JOCELYN Administration Aspirin 81 mg 10/08/18 10:00 10/08/18 09:57 Aspirin Chewable PO 81 mg DAILY JOCELYN Administration Calcium Acetate 667 mg 10/04/18 08:45 10/08/18 09:58 Phoslo PO Not Given TIDCC JOCELYN Carvedilol 3.125 mg 10/08/18 10:00 10/08/18 10:00 Coreg PO 3.125 mg BID JOCELYN Administration Epoetin Dedrick 10,000 unit 10/04/18 10:00 10/06/18 10:47 Procrit IV Not Given TTS JOCELYN Heparin Sodium (Porcine) 5,000 units 09/29/18 10:00 10/08/18 09:58 Heparin SC 5,000 units Q12 JOCELYN Administration Hydralazine HCl 50 mg 10/02/18 10:00 10/05/18 18:00 Apresoline PO Not Given BID JOCELYN Hydrocortisone 5 mg 09/29/18 10:00 10/08/18 09:57 Cortef PO 5 mg DAILY JOCELYN Administration Ferric Sodium Gluconate 110 mls @ 110 mls/hr 10/06/18 10:00 10/07/18 15:53 Complex 125 mg/ Sodium IVPB 10/14/18 10:01 110 mls/hr Chloride DAILY JOCELYN Administration Propofol 1,000 mg in 100 mls @ 2.735 mls/hr 10/06/18 00:22 10/07/18 21:37 Diprivan IV 0 mcg/kg/min .Q24H PRN 0 mls/hr TITRATE PER MD ORDER Titration Protocol 5 MCG/KG/MIN Piperacillin Sod/Tazobactam Sod 2.25 gm in 50 mls @ 100 mls/hr 10/06/18 14:00 10/08/18 05:18 Zosyn 2.25 Gm Iv Premix IVPB 100 mls/hr Q8 [facility] Administration Protocol Insulin Detemir 25 unit 10/08/18 22:00 Levemir SC HS JOCELYN Insulin Human Regular 0 unit 10/06/18 12:00 10/08/18 05:19 Novolin R SC 4 u Q6H [facility] Administration Protocol Levetiracetam 750 mg 10/08/18 10:00 Keppra PO BID JOCELYN Levothyroxine Sodium 50 mcg 09/29/18 08:00 10/08/18 05:19 Synthroid PO 50 mcg 0600 JOCELYN Administration Pantoprazole Sodium 40 mg 10/09/18 06:00 Protonix Susp PO 0600 JOCELYN Propofol 100 mg 10/05/18 18:00 10/06/18 17:21 Diprivan IV 100 mg TITR JOCELYN Administration Rosuvastatin Calcium 10 mg 09/30/18 22:00 10/07/18 21:16 Crestor PO 10 mg HS [facility] Administration - Patient Studies Lab Studies: Lab Studies 10/08/18 10/08/18 10/08/18 Range/Units 05:52 05:52 05:52 WBC 12.6 H (4.8-10.8) K/uL RBC 2.97 L (3.80-5.20) Mil/uL Hgb 8.1 L (11.0-16.0) g/dL Hct 25.3 L (34.0-47.0) % MCV 85.0 (81.0-99.0) fL MCH 27.3 (27.0-31.0) pg MCHC 32.2 L (33.0-37.0) g/dL RDW 14.5 (11.5-14.5) % Plt Count 129 L (130-400) K/uL MPV 10.4 (7.2-11.7) fL Neut % (Auto) 69.5 (50.0-75.0) % Lymph % (Auto) 12.0 L (20.0-40.0) % Crowley % (Auto) 8.8 (0.0-10.0) % Eos % (Auto) 9.1 H (0.0-4.0) % Baso % (Auto) 0.6 (0.0-2.0) % Neut # (Auto) 8.8 H (1.8-7.0) K/uL Lymph # (Auto) 1.5 (1.0-4.3) K/uL Crowley # (Auto) 1.1 H (0.0-0.8) K/uL Eos # (Auto) 1.1 H (0.0-0.7) K/uL Baso # (Auto) 0.1 (0.0-0.2) K/uL Puncture Site pCO2 (35-45) mm/Hg pO2 (80-100) mm/Hg HCO3 (21-28) mmol/L ABG pH (7.35-7.45) ABG Total CO2 (22-28) mmol/L ABG O2 Saturation (95-98) % ABG Base Excess (-2.0-3.0) mmol/L Jimenez Test ABG Potassium (3.6-5.2) mmol/L A-a O2 Difference mm/Hg Respiratory Index Sodium 131 L (132-148) mmol/l Chloride 95 L (98-107) mmol/L Glucose (65-105) mg/dl Lactate (0.7-2.1) mmol/L Vent Mode Mechanical Rate FiO2 % Tidal Volume PEEP Potassium 3.0 L (3.6-5.2) mmol/L Carbon Dioxide 30 (22-30) mmol/L Anion Gap 9 L (10-20) BUN 26 H (7-17) mg/dL Creatinine 3.3 H (0.7-1.2) mg/dL Est GFR ( Amer) 17 Est GFR (Non-Af Amer) 14 POC Glucose (mg/dL) (65-110) mg/dL Random Glucose 279 H D (65-105) mg/dL Calcium 7.2 L (8.6-10.4) mg/dl Phosphorus 1.9 L (2.5-4.5) mg/dL Magnesium 1.8 (1.6-2.3) mg/dL Total Bilirubin 0.5 (0.2-1.3) mg/dL AST 36 D (14-36) U/L ALT 50 (9-52) U/L Alkaline Phosphatase 134 H D (38-126) U/L Total Protein 5.1 L (6.3-8.3) g/dL Albumin 2.6 L (3.5-5.0) g/dL Globulin 2.5 (2.2-3.9) gm/dL Albumin/Globulin Ratio 1.0 (1.0-2.1) Arterial Blood Potassium (3.6-5.2) mmol/L Urine Color Tracy (YELLOW) Urine Clarity Hazy (Clear) Urine pH 5.0 (5.0-8.0) Ur Specific [place] 1.028 (1.003-1.030) Urine Protein 3+ H (NEGATIVE) mg/dL Urine Glucose (UA) 2+ H (Normal) mg/dL Urine Ketones Negative (NEGATIVE) mg/dL Urine Blood Negative (NEGATIVE) Urine Nitrate Negative (NEGATIVE) Urine Bilirubin Negative (NEGATIVE) Urine Urobilinogen Normal (0.2-1.0) mg/dL Ur Leukocyte Esterase 2+ H (Negative) Gabe/uL Urine WBC (Auto) 641 H (0-5) /hpf Urine RBC (Auto) 16 H (0-3) /hpf Urine WBC Clumps (Auto) Many H (NONE) /hpf Ur Squamous Epith Cells 6 H (0-5) /hpf Urine Bacteria Many H (<OCC) 10/08/18 10/08/18 10/07/18 Range/Units 05:14 05:05 23:23 WBC (4.8-10.8) K/uL RBC (3.80-5.20) Mil/uL Hgb (11.0-16.0) g/dL Hct (34.0-47.0) % MCV (81.0-99.0) fL MCH (27.0-31.0) pg MCHC (33.0-37.0) g/dL RDW (11.5-14.5) % Plt Count (130-400) K/uL MPV (7.2-11.7) fL Neut % (Auto) (50.0-75.0) % Lymph % (Auto) (20.0-40.0) % Crowley % (Auto) (0.0-10.0) % Eos % (Auto) (0.0-4.0) % Baso % (Auto) (0.0-2.0) % Neut # (Auto) (1.8-7.0) K/uL Lymph # (Auto) (1.0-4.3) K/uL Crowley # (Auto) (0.0-0.8) K/uL Eos # (Auto) (0.0-0.7) K/uL Baso # (Auto) (0.0-0.2) K/uL Puncture Site Rr pCO2 40 (35-45) mm/Hg pO2 148 H (80-100) mm/Hg HCO3 28.3 H (21-28) mmol/L ABG pH 7.46 H (7.35-7.45) ABG Total CO2 29.6 H (22-28) mmol/L ABG O2 Saturation 99.1 H (95-98) % ABG Base Excess 4.2 H (-2.0-3.0) mmol/L Jimenez Test Pos ABG Potassium 2.7 L (3.6-5.2) mmol/L A-a O2 Difference 159.0 mm/Hg Respiratory Index 1.1 Sodium 134.0 (132-148) mmol/l Chloride 102.0 (98-107) mmol/L Glucose 298 H (65-105) mg/dl Lactate 0.8 (0.7-2.1) mmol/L Vent Mode Prvc Mechanical Rate 18 FiO2 50.0 % Tidal Volume 450 PEEP 5 Potassium (3.6-5.2) mmol/L Carbon Dioxide (22-30) mmol/L Anion Gap (10-20) BUN (7-17) mg/dL Creatinine (0.7-1.2) mg/dL Est GFR ( Amer) Est GFR (Non-Af Amer) POC Glucose (mg/dL) 310 H 287 H (65-110) mg/dL Random Glucose (65-105) mg/dL Calcium (8.6-10.4) mg/dl Phosphorus (2.5-4.5) mg/dL Magnesium (1.6-2.3) mg/dL Total Bilirubin (0.2-1.3) mg/dL AST (14-36) U/L ALT (9-52) U/L Alkaline Phosphatase (38-126) U/L Total Protein (6.3-8.3) g/dL Albumin (3.5-5.0) g/dL Globulin (2.2-3.9) gm/dL Albumin/Globulin Ratio (1.0-2.1) Arterial Blood Potassium 2.7 L (3.6-5.2) mmol/L Urine Color (YELLOW) Urine Clarity (Clear) Urine pH (5.0-8.0) Ur Specific [place] (1.003-1.030) Urine Protein (NEGATIVE) mg/dL Urine Glucose (UA) (Normal) mg/dL Urine Ketones (NEGATIVE) mg/dL Urine Blood (NEGATIVE) Urine Nitrate (NEGATIVE) Urine Bilirubin (NEGATIVE) Urine Urobilinogen (0.2-1.0) mg/dL Ur Leukocyte Esterase (Negative) Gabe/uL Urine WBC (Auto) (0-5) /hpf Urine RBC (Auto) (0-3) /hpf Urine WBC Clumps (Auto) (NONE) /hpf Ur Squamous Epith Cells (0-5) /hpf Urine Bacteria (<OCC) 10/07/18 10/07/18 Range/Units 17:24 11:08 WBC (4.8-10.8) K/uL RBC (3.80-5.20) Mil/uL Hgb (11.0-16.0) g/dL Hct (34.0-47.0) % MCV (81.0-99.0) fL MCH (27.0-31.0) pg MCHC (33.0-37.0) g/dL RDW (11.5-14.5) % Plt Count (130-400) K/uL MPV (7.2-11.7) fL Neut % (Auto) (50.0-75.0) % Lymph % (Auto) (20.0-40.0) % Crowley % (Auto) (0.0-10.0) % Eos % (Auto) (0.0-4.0) % Baso % (Auto) (0.0-2.0) % Neut # (Auto) (1.8-7.0) K/uL Lymph # (Auto) (1.0-4.3) K/uL Crowley # (Auto) (0.0-0.8) K/uL Eos # (Auto) (0.0-0.7) K/uL Baso # (Auto) (0.0-0.2) K/uL Puncture Site pCO2 (35-45) mm/Hg pO2 (80-100) mm/Hg HCO3 (21-28) mmol/L ABG pH (7.35-7.45) ABG Total CO2 (22-28) mmol/L ABG O2 Saturation (95-98) % ABG Base Excess (-2.0-3.0) mmol/L Jimenez Test ABG Potassium (3.6-5.2) mmol/L A-a O2 Difference mm/Hg Respiratory Index Sodium (132-148) mmol/l Chloride (98-107) mmol/L Glucose (65-105) mg/dl Lactate (0.7-2.1) mmol/L Vent Mode Mechanical Rate FiO2 % Tidal Volume PEEP Potassium (3.6-5.2) mmol/L Carbon Dioxide (22-30) mmol/L Anion Gap (10-20) BUN (7-17) mg/dL Creatinine (0.7-1.2) mg/dL Est GFR ( Amer) Est GFR (Non-Af Amer) POC Glucose (mg/dL) 203 H 158 H (65-110) mg/dL Random Glucose (65-105) mg/dL Calcium (8.6-10.4) mg/dl Phosphorus (2.5-4.5) mg/dL Magnesium (1.6-2.3) mg/dL Total Bilirubin (0.2-1.3) mg/dL AST (14-36) U/L ALT (9-52) U/L Alkaline Phosphatase (38-126) U/L Total Protein (6.3-8.3) g/dL Albumin (3.5-5.0) g/dL Globulin (2.2-3.9) gm/dL Albumin/Globulin Ratio (1.0-2.1) Arterial Blood Potassium (3.6-5.2) mmol/L Urine Color (YELLOW) Urine Clarity (Clear) Urine pH (5.0-8.0) Ur Specific [place] (1.003-1.030) Urine Protein (NEGATIVE) mg/dL Urine Glucose (UA) (Normal) mg/dL Urine Ketones (NEGATIVE) mg/dL Urine Blood (NEGATIVE) Urine Nitrate (NEGATIVE) Urine Bilirubin (NEGATIVE) Urine Urobilinogen (0.2-1.0) mg/dL Ur Leukocyte Esterase (Negative) Gabe/uL Urine WBC (Auto) (0-5) /hpf Urine RBC (Auto) (0-3) /hpf Urine WBC Clumps (Auto) (NONE) /hpf Ur Squamous Epith Cells (0-5) /hpf Urine Bacteria (<OCC) Laboratory Results - last 24 hr 10/07/18 10/07/18 10/07/18 11:08 17:24 23:23 WBC RBC Hgb Hct MCV MCH MCHC RDW Plt Count MPV Neut % (Auto) Lymph % (Auto) Crowley % (Auto) Eos % (Auto) Baso % (Auto) Neut # (Auto) Lymph # (Auto) Crowley # (Auto) Eos # (Auto) Baso # (Auto) Puncture Site pCO2 pO2 HCO3 ABG pH ABG Total CO2 ABG O2 Saturation ABG Base Excess Jimenez Test ABG Potassium A-a O2 Difference Respiratory Index Sodium Chloride Glucose Lactate Vent Mode Mechanical Rate FiO2 Tidal Volume PEEP Potassium Carbon Dioxide Anion Gap BUN Creatinine Est GFR ( Amer) Est GFR (Non-Af Amer) POC Glucose (mg/dL) 158 H 203 H 287 H Random Glucose Calcium Phosphorus Magnesium Total Bilirubin AST ALT Alkaline Phosphatase Total Protein Albumin Globulin Albumin/Globulin Ratio Arterial Blood Potassium Urine Color Urine Clarity Urine pH Ur Specific [place] Urine Protein Urine Glucose (UA) Urine Ketones Urine Blood Urine Nitrate Urine Bilirubin Urine Urobilinogen Ur Leukocyte Esterase Urine WBC (Auto) Urine RBC (Auto) Urine WBC Clumps (Auto) Ur Squamous Epith Cells Urine Bacteria 10/08/18 10/08/18 10/08/18 05:05 05:14 05:52 WBC RBC Hgb Hct MCV MCH MCHC RDW Plt Count MPV Neut % (Auto) Lymph % (Auto) Crowley % (Auto) Eos % (Auto) Baso % (Auto) Neut # (Auto) Lymph # (Auto) Crowley # (Auto) Eos # (Auto) Baso # (Auto) Puncture Site Rr pCO2 40 pO2 148 H HCO3 28.3 H ABG pH 7.46 H ABG Total CO2 29.6 H ABG O2 Saturation 99.1 H ABG Base Excess 4.2 H Jimenez Test Pos ABG Potassium 2.7 L A-a O2 Difference 159.0 Respiratory Index 1.1 Sodium 134.0 Chloride 102.0 Glucose 298 H Lactate 0.8 Vent Mode Prvc Mechanical Rate 18 FiO2 50.0 Tidal Volume 450 PEEP 5 Potassium Carbon Dioxide Anion Gap BUN Creatinine Est GFR ( Amer) Est GFR (Non-Af Amer) POC Glucose (mg/dL) 310 H Random Glucose Calcium Phosphorus Magnesium Total Bilirubin AST ALT Alkaline Phosphatase Total Protein Albumin Globulin Albumin/Globulin Ratio Arterial Blood Potassium 2.7 L Urine Color Tracy Urine Clarity Hazy Urine pH 5.0 Ur Specific [place] 1.028 Urine Protein 3+ H Urine Glucose (UA) 2+ H Urine Ketones Negative Urine Blood Negative Urine Nitrate Negative Urine Bilirubin Negative Urine Urobilinogen Normal Ur Leukocyte Esterase 2+ H Urine WBC (Auto) 641 H Urine RBC (Auto) 16 H Urine WBC Clumps (Auto) Many H Ur Squamous Epith Cells 6 H Urine Bacteria Many H 10/08/18 10/08/18 05:52 05:52 WBC 12.6 H RBC 2.97 L Hgb 8.1 L Hct 25.3 L MCV 85.0 MCH 27.3 MCHC 32.2 L RDW 14.5 Plt Count 129 L MPV 10.4 Neut % (Auto) 69.5 Lymph % (Auto) 12.0 L Crowley % (Auto) 8.8 Eos % (Auto) 9.1 H Baso % (Auto) 0.6 Neut # (Auto) 8.8 H Lymph # (Auto) 1.5 Crowley # (Auto) 1.1 H Eos # (Auto) 1.1 H Baso # (Auto) 0.1 Puncture Site pCO2 pO2 HCO3 ABG pH ABG Total CO2 ABG O2 Saturation ABG Base Excess Jimenez Test ABG Potassium A-a O2 Difference Respiratory Index Sodium 131 L Chloride 95 L Glucose Lactate Vent Mode Mechanical Rate FiO2 Tidal Volume PEEP Potassium 3.0 L Carbon Dioxide 30 Anion Gap 9 L BUN 26 H Creatinine 3.3 H Est GFR ( Amer) 17 Est GFR (Non-Af Amer) 14 POC Glucose (mg/dL) Random Glucose 279 H D Calcium 7.2 L Phosphorus 1.9 L Magnesium 1.8 Total Bilirubin 0.5 AST 36 D ALT 50 Alkaline Phosphatase 134 H D Total Protein 5.1 L Albumin 2.6 L Globulin 2.5 Albumin/Globulin Ratio 1.0 Arterial Blood Potassium Urine Color Urine Clarity Urine pH Ur Specific [place] Urine Protein Urine Glucose (UA) Urine Ketones Urine Blood Urine Nitrate Urine Bilirubin Urine Urobilinogen Ur Leukocyte Esterase Urine WBC (Auto) Urine RBC (Auto) Urine WBC Clumps (Auto) Ur Squamous Epith Cells Urine Bacteria Radiology Impressions: Radiology Impressions Head CT 10/06/18 15:15 IMPRESSION: Limited study. Nonspecific white matter changes. Fluid and mucosal thickening of the right sphenoid sinus. Extensive opacification of the ethmoid air cells, sphenoid sinus. Small mucosal polyp/cysts within the left maxillary sinus. Chest X-Ray 10/07/18 06:00 IMPRESSION: Endotracheal tube terminates approximately 3 cm above the kaylah. Moderate pulmonary venous congestion. Bilateral hilar prominence. Cardiomegaly. Chest X-Ray 10/08/18 07:00 IMPRESSION: Improved pulmonary vascular congestion. Stable cardiomegaly. Fingerstick Blood Sugar Results: 310 Assessment/Plan - Assessment and Plan (Free Text) Assessment: 72 yo female w/ PMHx of CKD 5, CHF, CAD post stent, pituitary adenoma, DM2, HTN admitted for cardiac arrest during AVF placement and catheter on 10/05. Patient was intubated by anaesthesia team. Neuro responsive to some voice commands (ex: open/close eyes) Was given fentanyl and versed during procedure on 10/05; patient now on propofol sedation CT head 10/06: right sphenoid sinus mucosal thickening. MRI recommended by radiologist for better imaging. Dr. Yost, neuro, suggests post hypoperfusion syndrome and added keppra. Will continue to appreciate recs. Bedside EEG running now to r/o paroxysmal activities. Pending results. Pulm Daily CXR with consistent pulmonary vascular congestion and cardiomegaly Intubated with ET tube 18/50%/450/5 maintain spo2> 92% ABG: pH 7.46, pCO2 148, Po2 28.3, HCO3 28.3. Patient w/ significant retention of CO2, can be 2/2 obesity hypoventilation syndrome. CV s/p cardiac arrest EKG showed sinus bradycardia with first degree heart block. Per Dr. Wagoner, unlikely primary cardiac event due to normal stress test and normal EF. Trops negative x 3. Aspirin, hydralazine, and crestor daily s/p Code Freeze, initiated at 4:35 pm 10/05 Dr. Wagoner, cardio, following. Will continue to appreciate recs. Endo Pt with history of pituitary adenoma Continue with PO hydrocortisone, Synthroid, and Levemir Pt with DM. Increased detemir from 20 u sq to 25 u sq GI No active issues Protonix Renal Phoslo d/abhishek 10/08 Continue with EPO and Ferrlicet, and MWF dialysis s/p extra dialysis 10/07. Will get regular Mon dialysis today 10/08 Dr. Segundo nephro, following. Will appreciate further recs. ID Tmax 24h 102.6F Tylenol PRN for fever ordered 10/08: Urinalysis positive for leuk est and many WBC +MRSA nares 09/29, s/p vanco x 1 on 10/07, can consider mupirocin for the nares Patient on zosyn 2.25g q8h since 10/06 DVT ppx: heparin 5000 u sq q12h GI ppx: Protonix 40 mg IV daily case discussed with Dr. Darion Bowden PGY1 <Renato Orlando - Last Filed: 10/08/18 20:43> CCU Subjective - Physician Review Events Since Last Encounter (Free Text): 10/08/18 20:41 I spoke to the diamond cutter today. Patient again had hemodialysis. But the patient had a fever today. The plan of removing the femoral catheter. But will remove tomorrow. On antibiotic. Vancomycin 1 g was given yesterday. Infectious disease evaluation will be called in tomorrow and will follow the patient. I have agree with resident note. CCU Objective - Vital Signs / Intake & Output Vital Signs (Last 4 hours): Vital Signs Pulse Pulse Resp BP BP Pulse Ox 10/08/18 19:30 73 18 127/55 L 100 10/08/18 19:13 67 14 140/61 100 10/08/18 19:03 66 19 132/51 L 100 10/08/18 19:00 67 67 16 132/51 L 100 10/08/18 18:53 67 15 134/52 L 100 10/08/18 18:43 67 13 132/56 L 99 10/08/18 18:33 70 17 132/46 L 100 10/08/18 18:30 70 17 114/50 L 10/08/18 18:23 64 18 114/50 L 100 10/08/18 18:13 66 19 128/51 L 100 10/08/18 18:04 67 16 123/49 L 100 10/08/18 18:00 69 64 18 128/51 L 100 10/08/18 17:53 66 18 125/50 L 100 10/08/18 17:43 65 16 123/43 L 100 10/08/18 17:33 67 15 123/47 L 99 10/08/18 17:30 65 18 123/47 L 10/08/18 17:24 64 18 129/49 L 99 10/08/18 17:18 64 14 121/45 L 99 10/08/18 17:15 66 18 129/45 L 10/08/18 17:03 61 18 123/52 L 99 10/08/18 17:00 61 57 L 18 123/52 L 99 10/08/18 16:53 64 18 129/53 L 99 10/08/18 16:43 64 16 123/48 L 99 Intake and Output (Last 8hrs): Intake & Output 10/08/18 10/08/18 10/08/18 06:59 14:59 22:59 Intake Total 380 300 50 Output Total 15 10 0 Balance 365 290 50 Weight 215 lb 8 oz Intake: Intake, IV Amount 0 100 Right Proximal Port 0 100 Femoral Tube Feeding 320 200 50 Other 60 Output: Urine 15 10 0 Urethral (Rodriguez) 15 10 Urine, Voided 0 0 Other: # Bowel Movements 1 1 1 - Medications Active Medications: Active Medications Generic Name Dose Route Start Last Admin Trade Name Freq PRN Reason Stop Dose Admin Acetaminophen 650 mg 09/29/18 08:30 10/06/18 11:15 Tylenol 325mg Tab PO 650 mg Q6H PRN Administration Pain, Mild (1-3) Acetaminophen 650 mg 10/08/18 10:08 10/08/18 15:53 Tylenol 325mg Tab PO 650 mg Q6 PRN Administration pain+fever Artificial Tears 0 ml 10/07/18 00:00 10/08/18 17:10 Artificial Tears OU 1 drop Q6 JOCELYN Administration Aspirin 81 mg 10/08/18 10:00 10/08/18 09:57 Aspirin Chewable PO 81 mg DAILY JOCELYN Administration Carvedilol 3.125 mg 10/08/18 10:00 10/08/18 17:10 Coreg PO Not Given BID JOCELYN Epoetin Dedrick 10,000 unit 10/04/18 10:00 10/06/18 10:47 Procrit IV Not Given TTS JOCELYN Heparin Sodium (Porcine) 5,000 units 09/29/18 10:00 10/08/18 09:58 Heparin SC 5,000 units Q12 JOCELYN Administration Hydralazine HCl 25 mg 10/08/18 10:46 Apresoline PO BID JOCELYN Hydrocortisone 5 mg 09/29/18 10:00 10/08/18 09:57 Cortef PO 5 mg DAILY JOCELYN Administration Ferric Sodium Gluconate 110 mls @ 110 mls/hr 10/06/18 10:00 10/08/18 11:59 Complex 125 mg/ Sodium IVPB 10/14/18 10:01 110 mls/hr Chloride DAILY JOCELYN Administration Propofol 1,000 mg in 100 mls @ 2.735 mls/hr 10/06/18 00:22 10/07/18 21:37 Diprivan IV 0 mcg/kg/min .Q24H PRN 0 mls/hr TITRATE PER MD ORDER Titration Protocol 5 MCG/KG/MIN Piperacillin Sod/Tazobactam Sod 2.25 gm in 50 mls @ 100 mls/hr 10/06/18 14:00 10/08/18 13:25 Zosyn 2.25 Gm Iv Premix IVPB 100 mls/hr Q8 JOCELYN Administration Protocol Insulin Detemir 25 unit 10/08/18 22:00 Levemir SC HS JOCELYN Insulin Human Regular 0 unit 10/06/18 12:00 10/08/18 19:07 Novolin R SC 1 u Q6H JOCELYN Administration Protocol Levetiracetam 750 mg 10/08/18 10:00 10/08/18 17:11 Keppra PO 750 mg BID JOCELYN Administration Levothyroxine Sodium 50 mcg 09/29/18 08:00 10/08/18 05:19 Synthroid PO 50 mcg 0600 JOCELYN Administration Pantoprazole Sodium 40 mg 10/09/18 06:00 Protonix Susp PO 0600 JOCELYN Propofol 100 mg 10/05/18 18:00 10/06/18 17:21 Diprivan IV 100 mg TITR JOCELYN Administration Rosuvastatin Calcium 10 mg 09/30/18 22:00 10/07/18 21:16 Crestor PO 10 mg HS JOCELYN Administration - Patient Studies Lab Studies: Microbiology Studies 10/07/18 20:00 Gram Stain - Final Trachasp Lab Studies 10/08/18 10/08/18 10/08/18 Range/Units 17:42 13:25 11:14 WBC (4.8-10.8) K/uL RBC (3.80-5.20) Mil/uL Hgb (11.0-16.0) g/dL Hct (34.0-47.0) % MCV (81.0-99.0) fL MCH (27.0-31.0) pg MCHC (33.0-37.0) g/dL RDW (11.5-14.5) % Plt Count (130-400) K/uL MPV (7.2-11.7) fL Neut % (Auto) (50.0-75.0) % Lymph % (Auto) (20.0-40.0) % Crowley % (Auto) (0.0-10.0) % Eos % (Auto) (0.0-4.0) % Baso % (Auto) (0.0-2.0) % Neut # (Auto) (1.8-7.0) K/uL Lymph # (Auto) (1.0-4.3) K/uL Crowley # (Auto) (0.0-0.8) K/uL Eos # (Auto) (0.0-0.7) K/uL Baso # (Auto) (0.0-0.2) K/uL Puncture Site pCO2 (35-45) mm/Hg pO2 (80-100) mm/Hg HCO3 (21-28) mmol/L ABG pH (7.35-7.45) ABG Total CO2 (22-28) mmol/L ABG O2 Saturation (95-98) % ABG Base Excess (-2.0-3.0) mmol/L Jimenez Test ABG Potassium (3.6-5.2) mmol/L A-a O2 Difference mm/Hg Respiratory Index Sodium (132-148) mmol/l Chloride (98-107) mmol/L Glucose (65-105) mg/dl Lactate (0.7-2.1) mmol/L Vent Mode Mechanical Rate FiO2 % Tidal Volume PEEP Potassium (3.6-5.2) mmol/L Carbon Dioxide (22-30) mmol/L Anion Gap (10-20) BUN (7-17) mg/dL Creatinine (0.7-1.2) mg/dL Est GFR ( Amer) Est GFR (Non-Af Amer) POC Glucose (mg/dL) 185 H 266 H (65-110) mg/dL Random Glucose (65-105) mg/dL Calcium (8.6-10.4) mg/dl Phosphorus (2.5-4.5) mg/dL Magnesium (1.6-2.3) mg/dL Total Bilirubin (0.2-1.3) mg/dL AST (14-36) U/L ALT (9-52) U/L Alkaline Phosphatase (38-126) U/L Total Protein (6.3-8.3) g/dL Albumin (3.5-5.0) g/dL Globulin (2.2-3.9) gm/dL Albumin/Globulin Ratio (1.0-2.1) Arterial Blood Potassium (3.6-5.2) mmol/L Urine Color (YELLOW) Urine Clarity (Clear) Urine pH (5.0-8.0) Ur Specific [place] (1.003-1.030) Urine Protein (NEGATIVE) mg/dL Urine Glucose (UA) (Normal) mg/dL Urine Ketones (NEGATIVE) mg/dL Urine Blood (NEGATIVE) Urine Nitrate (NEGATIVE) Urine Bilirubin (NEGATIVE) Urine Urobilinogen (0.2-1.0) mg/dL Ur Leukocyte Esterase (Negative) Gabe/uL Urine WBC (Auto) (0-5) /hpf Urine RBC (Auto) (0-3) /hpf Urine WBC Clumps (Auto) (NONE) /hpf Ur Squamous Epith Cells (0-5) /hpf Urine Bacteria (<OCC) C. difficile Ag & Toxin Negative (NEGATIVE) 10/08/18 10/08/18 10/08/18 Range/Units 05:52 05:52 05:52 WBC 12.6 H (4.8-10.8) K/uL RBC 2.97 L (3.80-5.20) Mil/uL Hgb 8.1 L (11.0-16.0) g/dL Hct 25.3 L (34.0-47.0) % MCV 85.0 (81.0-99.0) fL MCH 27.3 (27.0-31.0) pg MCHC 32.2 L (33.0-37.0) g/dL RDW 14.5 (11.5-14.5) % Plt Count 129 L (130-400) K/uL MPV 10.4 (7.2-11.7) fL Neut % (Auto) 69.5 (50.0-75.0) % Lymph % (Auto) 12.0 L (20.0-40.0) % Crowley % (Auto) 8.8 (0.0-10.0) % Eos % (Auto) 9.1 H (0.0-4.0) % Baso % (Auto) 0.6 (0.0-2.0) % Neut # (Auto) 8.8 H (1.8-7.0) K/uL Lymph # (Auto) 1.5 (1.0-4.3) K/uL Crowley # (Auto) 1.1 H (0.0-0.8) K/uL Eos # (Auto) 1.1 H (0.0-0.7) K/uL Baso # (Auto) 0.1 (0.0-0.2) K/uL Puncture Site pCO2 (35-45) mm/Hg pO2 (80-100) mm/Hg HCO3 (21-28) mmol/L ABG pH (7.35-7.45) ABG Total CO2 (22-28) mmol/L ABG O2 Saturation (95-98) % ABG Base Excess (-2.0-3.0) mmol/L Jimenez Test ABG Potassium (3.6-5.2) mmol/L A-a O2 Difference mm/Hg Respiratory Index Sodium 131 L (132-148) mmol/l Chloride 95 L (98-107) mmol/L Glucose (65-105) mg/dl Lactate (0.7-2.1) mmol/L Vent Mode Mechanical Rate FiO2 % Tidal Volume PEEP Potassium 3.0 L (3.6-5.2) mmol/L Carbon Dioxide 30 (22-30) mmol/L Anion Gap 9 L (10-20) BUN 26 H (7-17) mg/dL Creatinine 3.3 H (0.7-1.2) mg/dL Est GFR ( Amer) 17 Est GFR (Non-Af Amer) 14 POC Glucose (mg/dL) (65-110) mg/dL Random Glucose 279 H D (65-105) mg/dL Calcium 7.2 L (8.6-10.4) mg/dl Phosphorus 1.9 L (2.5-4.5) mg/dL Magnesium 1.8 (1.6-2.3) mg/dL Total Bilirubin 0.5 (0.2-1.3) mg/dL AST 36 D (14-36) U/L ALT 50 (9-52) U/L Alkaline Phosphatase 134 H D (38-126) U/L Total Protein 5.1 L (6.3-8.3) g/dL Albumin 2.6 L (3.5-5.0) g/dL Globulin 2.5 (2.2-3.9) gm/dL Albumin/Globulin Ratio 1.0 (1.0-2.1) Arterial Blood Potassium (3.6-5.2) mmol/L Urine Color Tracy (YELLOW) Urine Clarity Hazy (Clear) Urine pH 5.0 (5.0-8.0) Ur Specific [place] 1.028 (1.003-1.030) Urine Protein 3+ H (NEGATIVE) mg/dL Urine Glucose (UA) 2+ H (Normal) mg/dL Urine Ketones Negative (NEGATIVE) mg/dL Urine Blood Negative (NEGATIVE) Urine Nitrate Negative (NEGATIVE) Urine Bilirubin Negative (NEGATIVE) Urine Urobilinogen Normal (0.2-1.0) mg/dL Ur Leukocyte Esterase 2+ H (Negative) Gabe/uL Urine WBC (Auto) 641 H (0-5) /hpf Urine RBC (Auto) 16 H (0-3) /hpf Urine WBC Clumps (Auto) Many H (NONE) /hpf Ur Squamous Epith Cells 6 H (0-5) /hpf Urine Bacteria Many H (<OCC) C. difficile Ag & Toxin (NEGATIVE) 10/08/18 10/08/18 10/07/18 Range/Units 05:14 05:05 23:23 WBC (4.8-10.8) K/uL RBC (3.80-5.20) Mil/uL Hgb (11.0-16.0) g/dL Hct (34.0-47.0) % MCV (81.0-99.0) fL MCH (27.0-31.0) pg MCHC (33.0-37.0) g/dL RDW (11.5-14.5) % Plt Count (130-400) K/uL MPV (7.2-11.7) fL Neut % (Auto) (50.0-75.0) % Lymph % (Auto) (20.0-40.0) % Crowley % (Auto) (0.0-10.0) % Eos % (Auto) (0.0-4.0) % Baso % (Auto) (0.0-2.0) % Neut # (Auto) (1.8-7.0) K/uL Lymph # (Auto) (1.0-4.3) K/uL Crowley # (Auto) (0.0-0.8) K/uL Eos # (Auto) (0.0-0.7) K/uL Baso # (Auto) (0.0-0.2) K/uL Puncture Site Rr pCO2 40 (35-45) mm/Hg pO2 148 H (80-100) mm/Hg HCO3 28.3 H (21-28) mmol/L ABG pH 7.46 H (7.35-7.45) ABG Total CO2 29.6 H (22-28) mmol/L ABG O2 Saturation 99.1 H (95-98) % ABG Base Excess 4.2 H (-2.0-3.0) mmol/L Jimenez Test Pos ABG Potassium 2.7 L (3.6-5.2) mmol/L A-a O2 Difference 159.0 mm/Hg Respiratory Index 1.1 Sodium 134.0 (132-148) mmol/l Chloride 102.0 (98-107) mmol/L Glucose 298 H (65-105) mg/dl Lactate 0.8 (0.7-2.1) mmol/L Vent Mode Prvc Mechanical Rate 18 FiO2 50.0 % Tidal Volume 450 PEEP 5 Potassium (3.6-5.2) mmol/L Carbon Dioxide (22-30) mmol/L Anion Gap (10-20) BUN (7-17) mg/dL Creatinine (0.7-1.2) mg/dL Est GFR ( Amer) Est GFR (Non-Af Amer) POC Glucose (mg/dL) 310 H 287 H (65-110) mg/dL Random Glucose (65-105) mg/dL Calcium (8.6-10.4) mg/dl Phosphorus (2.5-4.5) mg/dL Magnesium (1.6-2.3) mg/dL Total Bilirubin (0.2-1.3) mg/dL AST (14-36) U/L ALT (9-52) U/L Alkaline Phosphatase (38-126) U/L Total Protein (6.3-8.3) g/dL Albumin (3.5-5.0) g/dL Globulin (2.2-3.9) gm/dL Albumin/Globulin Ratio (1.0-2.1) Arterial Blood Potassium 2.7 L (3.6-5.2) mmol/L Urine Color (YELLOW) Urine Clarity (Clear) Urine pH (5.0-8.0) Ur Specific [place] (1.003-1.030) Urine Protein (NEGATIVE) mg/dL Urine Glucose (UA) (Normal) mg/dL Urine Ketones (NEGATIVE) mg/dL Urine Blood (NEGATIVE) Urine Nitrate (NEGATIVE) Urine Bilirubin (NEGATIVE) Urine Urobilinogen (0.2-1.0) mg/dL Ur Leukocyte Esterase (Negative) Gabe/uL Urine WBC (Auto) (0-5) /hpf Urine RBC (Auto) (0-3) /hpf Urine WBC Clumps (Auto) (NONE) /hpf Ur Squamous Epith Cells (0-5) /hpf Urine Bacteria (<OCC) C. difficile Ag & Toxin (NEGATIVE) Laboratory Results - last 24 hr 10/07/18 10/08/18 10/08/18 23:23 05:05 05:14 WBC RBC Hgb Hct MCV MCH MCHC RDW Plt Count MPV Neut % (Auto) Lymph % (Auto) Crowley % (Auto) Eos % (Auto) Baso % (Auto) Neut # (Auto) Lymph # (Auto) Crowley # (Auto) Eos # (Auto) Baso # (Auto) Puncture Site Rr pCO2 40 pO2 148 H HCO3 28.3 H ABG pH 7.46 H ABG Total CO2 29.6 H ABG O2 Saturation 99.1 H ABG Base Excess 4.2 H Jimenez Test Pos ABG Potassium 2.7 L A-a O2 Difference 159.0 Respiratory Index 1.1 Sodium 134.0 Chloride 102.0 Glucose 298 H Lactate 0.8 Vent Mode Prvc Mechanical Rate 18 FiO2 50.0 Tidal Volume 450 PEEP 5 Potassium Carbon Dioxide Anion Gap BUN Creatinine Est GFR ( Amer) Est GFR (Non-Af Amer) POC Glucose (mg/dL) 287 H 310 H Random Glucose Calcium Phosphorus Magnesium Total Bilirubin AST ALT Alkaline Phosphatase Total Protein Albumin Globulin Albumin/Globulin Ratio Arterial Blood Potassium 2.7 L Urine Color Urine Clarity Urine pH Ur Specific [place] Urine Protein Urine Glucose (UA) Urine Ketones Urine Blood Urine Nitrate Urine Bilirubin Urine Urobilinogen Ur Leukocyte Esterase Urine WBC (Auto) Urine RBC (Auto) Urine WBC Clumps (Auto) Ur Squamous Epith Cells Urine Bacteria C. difficile Ag & Toxin 10/08/18 10/08/18 10/08/18 05:52 05:52 05:52 WBC 12.6 H RBC 2.97 L Hgb 8.1 L Hct 25.3 L MCV 85.0 MCH 27.3 MCHC 32.2 L RDW 14.5 Plt Count 129 L MPV 10.4 Neut % (Auto) 69.5 Lymph % (Auto) 12.0 L Crowley % (Auto) 8.8 Eos % (Auto) 9.1 H Baso % (Auto) 0.6 Neut # (Auto) 8.8 H Lymph # (Auto) 1.5 Crowley # (Auto) 1.1 H Eos # (Auto) 1.1 H Baso # (Auto) 0.1 Puncture Site pCO2 pO2 HCO3 ABG pH ABG Total CO2 ABG O2 Saturation ABG Base Excess Jimenez Test ABG Potassium A-a O2 Difference Respiratory Index Sodium 131 L Chloride 95 L Glucose Lactate Vent Mode Mechanical Rate FiO2 Tidal Volume PEEP Potassium 3.0 L Carbon Dioxide 30 Anion Gap 9 L BUN 26 H Creatinine 3.3 H Est GFR ( Amer) 17 Est GFR (Non-Af Amer) 14 POC Glucose (mg/dL) Random Glucose 279 H D Calcium 7.2 L Phosphorus 1.9 L Magnesium 1.8 Total Bilirubin 0.5 AST 36 D ALT 50 Alkaline Phosphatase 134 H D Total Protein 5.1 L Albumin 2.6 L Globulin 2.5 Albumin/Globulin Ratio 1.0 Arterial Blood Potassium Urine Color [place] Urine Clarity Hazy Urine pH 5.0 Ur Specific [place] 1.028 Urine Protein 3+ H Urine Glucose (UA) 2+ H Urine Ketones Negative Urine Blood Negative Urine Nitrate Negative Urine Bilirubin Negative Urine Urobilinogen Normal Ur Leukocyte Esterase 2+ H Urine WBC (Auto) 641 H Urine RBC (Auto) 16 H Urine WBC Clumps (Auto) Many H Ur Squamous Epith Cells 6 H Urine Bacteria Many H C. difficile Ag & Toxin 10/08/18 10/08/18 10/08/18 11:14 13:25 17:42 WBC RBC Hgb Hct MCV MCH MCHC RDW Plt Count MPV Neut % (Auto) Lymph % (Auto) Crowley % (Auto) Eos % (Auto) Baso % (Auto) Neut # (Auto) Lymph # (Auto) Crowley # (Auto) Eos # (Auto) Baso # (Auto) Puncture Site pCO2 pO2 HCO3 ABG pH ABG Total CO2 ABG O2 Saturation ABG Base Excess Jimenez Test ABG Potassium A-a O2 Difference Respiratory Index Sodium Chloride Glucose Lactate Vent Mode Mechanical Rate FiO2 Tidal Volume PEEP Potassium Carbon Dioxide Anion Gap BUN Creatinine Est GFR ( Amer) Est GFR (Non-Af Amer) POC Glucose (mg/dL) 266 H 185 H Random Glucose Calcium Phosphorus Magnesium Total Bilirubin AST ALT Alkaline Phosphatase Total Protein Albumin Globulin Albumin/Globulin Ratio Arterial Blood Potassium Urine Color Urine Clarity Urine pH Ur Specific [place] Urine Protein Urine Glucose (UA) Urine Ketones Urine Blood Urine Nitrate Urine Bilirubin Urine Urobilinogen Ur Leukocyte Esterase Urine WBC (Auto) Urine RBC (Auto) Urine WBC Clumps (Auto) Ur Squamous Epith Cells Urine Bacteria C. difficile Ag & Toxin Negative Radiology Impressions: Radiology Impressions Chest X-Ray 10/08/18 07:00 IMPRESSION: Improved pulmonary vascular congestion. Stable cardiomegaly. Assessment/Plan (1) Acute on chronic renal failure Current Visit: Yes Status: Acute (2) Diabetic nephropathy associated with type 2 diabetes mellitus Current Visit: Yes Status: Acute (3) Uremia, acute Current Visit: Yes Status: Acute
--- NOTE | 2018-10-08 10:44 | CP.PCM.PN ---
Subjective - Date & Time of Evaluation Date of Evaluation: 10/08/18 Time of Evaluation: 10:41 - Subjective Subjective: s/p dialysis 10/07- UF 2000ml less CHF on CXR still vented awake, lethargic HG low- can transfuse with HD Objective - Vital Signs/Intake and Output Vital Signs (last 24 hours): Temp Pulse Resp BP Pulse Ox 100.4 F H 69 18 133/51 L 100 10/08/18 08:00 10/08/18 10:28 10/08/18 10:28 10/08/18 10:28 10/08/18 10:28 Intake and Output: 10/08/18 10/08/18 06:59 18:59 Intake Total 957.4 160 Output Total 30 0 Balance 927.4 160 - Medications Medications: Current Medications Acetaminophen (Tylenol 325mg Tab) 650 mg PO Q6H PRN PRN Reason: Pain, Mild (1-3) Last Admin: 10/06/18 11:15 Dose: 650 mg Acetaminophen (Tylenol 325mg Tab) 650 mg PO Q6 PRN PRN Reason: pain+fever Artificial Tears (Artificial Tears) 0 ml OU Q6 [facility] Last Admin: 10/08/18 05:19 Dose: 1 drop Aspirin (Aspirin Chewable) 81 mg PO DAILY [facility] Last Admin: 10/08/18 09:57 Dose: 81 mg Calcium Acetate (Phoslo) 667 mg PO TIDCC [facility] Last Admin: 10/08/18 09:58 Dose: Not Given Carvedilol (Coreg) 3.125 mg PO BID [facility] Last Admin: 10/08/18 10:00 Dose: 3.125 mg Epoetin Dedrick (Procrit) 10,000 unit IV TTS [facility] Last Admin: 10/06/18 10:47 Dose: Not Given Heparin Sodium (Porcine) (Heparin) 5,000 units SC Q12 [facility] Last Admin: 10/08/18 09:58 Dose: 5,000 units Hydralazine HCl (Apresoline) 50 mg PO BID [facility] Last Admin: 10/05/18 18:00 Dose: Not Given Hydrocortisone (Cortef) 5 mg PO DAILY [facility] Last Admin: 10/08/18 09:57 Dose: 5 mg Ferric Sodium Gluconate Complex 125 mg/ Sodium Chloride 110 mls @ 110 mls/hr IVPB DAILY [facility] Stop: 10/14/18 10:01 Last Admin: 10/07/18 15:53 Dose: 110 mls/hr Propofol (Diprivan) 1,000 mg in 100 mls @ 2.735 mls/hr IV .Q24H PRN; Protocol PRN Reason: TITRATE PER MD ORDER Last Titration: 10/07/18 21:37 Dose: 0 mcg/kg/min, 0 mls/hr Piperacillin Sod/Tazobactam Sod (Zosyn 2.25 Gm Iv Premix) 2.25 gm in 50 mls @ 100 mls/hr IVPB Q8 [facility]; Protocol Last Admin: 10/08/18 05:18 Dose: 100 mls/hr Insulin Detemir (Levemir) 25 unit SC HS [facility] Insulin Human Regular (Novolin R) 0 unit SC Q6H [facility]; Protocol Last Admin: 10/08/18 05:19 Dose: 4 u Levetiracetam (Keppra) 750 mg PO BID [facility] Levothyroxine Sodium (Synthroid) 50 mcg PO 0600 [facility] Last Admin: 10/08/18 05:19 Dose: 50 mcg Pantoprazole Sodium (Protonix Susp) 40 mg PO 0600 [facility] Propofol (Diprivan) 100 mg IV TITR [facility] Last Admin: 10/06/18 17:21 Dose: 100 mg Rosuvastatin Calcium (Crestor) 10 mg PO HS [facility] Last Admin: 10/07/18 21:16 Dose: 10 mg - Labs Labs: 10/08/18 05:52 10/08/18 05:52 PT 13.9 SECONDS (9.7-12.2) H 10/06/18 21:04 INR 1.3 10/06/18 21:04 APTT 45 SECONDS (21-34) H D 10/06/18 21:04 - Constitutional Appears: No Acute Distress, Confused, Chronically Ill - Head Exam Head Exam: ATRAUMATIC, NORMAL INSPECTION - Eye Exam Eye Exam: EOMI, Normal appearance - Neck Exam Neck Exam: Normal Inspection. absent: Tenderness - Respiratory Exam Respiratory Exam: Rhonchi, Respiratory Distress - Cardiovascular Exam Cardiovascular Exam: REGULAR RHYTHM, +S1 - GI/Abdominal Exam GI & Abdominal Exam: Soft. absent: Tenderness - Neurological Exam Neurological Exam: Awake, CN II-XII Intact - Skin Skin Exam: Dry, Warm Assessment and Plan (1) ESRD (end stage renal disease) Status: Acute (2) Diabetic nephropathy associated with type 2 diabetes mellitus Status: Acute (3) CAD (coronary artery disease) Status: Acute (4) HTN (hypertension) Status: Acute - Assessment and Plan (Free Text) Plan: Repeat HD today for fluid removal Transfuse prbcs- discuss with ICU tewam 4 K bath; monitor lytes
[2018-10-08] MEDS: Ferric Sodium Gluconat Complex 125 MG in Sodium Chloride 0.9% 100 ML IVPB SCH (11:59)
[2018-10-08] MEDS: levETIRAcetam 100 mg/ml (5ml) Oral Syringe PO SCH ×2 (12:00→17:11)
--- NOTE | 2018-10-08 13:03 | CARD ---
APPROVED REPORT Date of service: 10/05/2018 EKG Measurement Heart [id number] <Conclusion> Sinus bradycardia Low voltage QRS Borderline ECG
--- NOTE | 2018-10-08 21:44 | CARD ---
APPROVED REPORT Date of service: 10/06/2018 EKG Measurement Heart [id number] <Conclusion> Sinus trachycardia Abnormal ECG
[2018-10-08] MEDS: Insulin Detemir 100 units/ml Vial (Levemir) SC SCH (22:34)
--- NOTE | 2018-10-08 23:46 | CP.PCM.PN ---
Subjective - Date & Time of Evaluation Date of Evaluation: 10/08/18 Time of Evaluation: 18:30 - Subjective Subjective: patient seen and evaluated improving clinical condition Following commands Objective - Vital Signs/Intake and Output Vital Signs (last 24 hours): Temp Pulse Resp BP Pulse Ox 98.7 F 68 14 147/54 L 100 10/08/18 20:00 10/08/18 21:23 10/08/18 21:23 10/08/18 21:23 10/08/18 21:23 Intake and Output: 10/08/18 10/09/18 18:59 06:59 Intake Total 340 30 Output Total 10 0 Balance 330 30 - Medications Medications: Current Medications Acetaminophen (Tylenol 325mg Tab) 650 mg PO Q6H PRN PRN Reason: Pain, Mild (1-3) Last Admin: 10/06/18 11:15 Dose: 650 mg Acetaminophen (Tylenol 325mg Tab) 650 mg PO Q6 PRN PRN Reason: pain+fever Last Admin: 10/08/18 15:53 Dose: 650 mg Artificial Tears (Artificial Tears) 0 ml OU Q6 [facility] Last Admin: 10/08/18 17:10 Dose: 1 drop Aspirin (Aspirin Chewable) 81 mg PO DAILY [facility] Last Admin: 10/08/18 09:57 Dose: 81 mg Carvedilol (Coreg) 3.125 mg PO BID [facility] Last Admin: 10/08/18 17:10 Dose: Not Given Epoetin Dedrick (Procrit) 10,000 unit IV TTS [facility] Last Admin: 10/06/18 10:47 Dose: Not Given Heparin Sodium (Porcine) (Heparin) 5,000 units SC Q12 [facility] Last Admin: 10/08/18 22:34 Dose: 5,000 units Hydralazine HCl (Apresoline) 25 mg PO BID [facility] Hydrocortisone (Cortef) 5 mg PO DAILY [facility] Last Admin: 10/08/18 09:57 Dose: 5 mg Ferric Sodium Gluconate Complex 125 mg/ Sodium Chloride 110 mls @ 110 mls/hr IVPB DAILY [facility] Stop: 10/14/18 10:01 Last Admin: 10/08/18 11:59 Dose: 110 mls/hr Propofol (Diprivan) 1,000 mg in 100 mls @ 2.735 mls/hr IV .Q24H PRN; Protocol PRN Reason: TITRATE PER MD ORDER Last Titration: 10/07/18 21:37 Dose: 0 mcg/kg/min, 0 mls/hr Piperacillin Sod/Tazobactam Sod (Zosyn 2.25 Gm Iv Premix) 2.25 gm in 50 mls @ 100 mls/hr IVPB Q8 [facility]; Protocol Last Admin: 10/08/18 22:33 Dose: 100 mls/hr Insulin Detemir (Levemir) 25 unit SC HS [facility] Last Admin: 10/08/18 22:34 Dose: 25 u Insulin Human Regular (Novolin R) 0 unit SC Q6H [facility]; Protocol Last Admin: 10/08/18 19:07 Dose: 1 u Levetiracetam (Keppra) 750 mg PO BID [facility] Last Admin: 10/08/18 17:11 Dose: 750 mg Levothyroxine Sodium (Synthroid) 50 mcg PO 0600 [facility] Last Admin: 10/08/18 05:19 Dose: 50 mcg Pantoprazole Sodium (Protonix Susp) 40 mg PO 0600 [facility] Propofol (Diprivan) 100 mg IV TITR [facility] Last Admin: 10/06/18 17:21 Dose: 100 mg Rosuvastatin Calcium (Crestor) 10 mg PO HS [facility] Last Admin: 10/08/18 22:34 Dose: 10 mg - Labs Labs: 10/08/18 05:52 10/08/18 05:52 PT 13.9 SECONDS (9.7-12.2) H 10/06/18 21:04 INR 1.3 10/06/18 21:04 APTT 45 SECONDS (21-34) H D 10/06/18 21:04
[2018-10-09] MEDS: Aritificial Tears (15ml) OU SCH ×4 (00:10→17:54)
[2018-10-09] MEDS: Propofol 10 mg/ml 1,000 MG/100 ML VIAL IV PRN ×2 (00:10→17:28)
[2018-10-09] MEDS: (Novolin R) Insulin Human Regular 100 units/ml vial SC SCH ×4 (00:23→17:58)
[2018-10-09 05:29] LABS: ABG ALLEN TEST POS; ARTERIAL BLOOD GAS HCO3 28.1 mmol/L (21-28); ARTERIAL BLOOD GAS O2 SAT 99.6 % (95-98); ARTERIAL BLOOD GAS PCO2 37 mm/Hg (35-45); ARTERIAL BLOOD GAS PH 7.48 (7.35-7.45); ARTERIAL BLOOD GAS PO2 134 mm/Hg (80-100); ARTERIAL BLOOD GAS TCO2 28.7 mmol/L (22-28)
[2018-10-09] MEDS: Piperacill/Tazo 2.25gm in Dex 2.25 GM/50 ML BAG IVPB SCH ×3 (05:41→21:32)
[2018-10-09] MEDS: Levothyroxine 50 MCG TAB PO SCH (05:43)
[2018-10-09] MEDS: Pantoprazole 40 mg Susp UD PO SCH (05:43)
[2018-10-09 06:24] LABS: BASO # 0.1 K/uL (0.0-0.2); BASO % 0.4 % (0.0-2.0); EOS % 8.1 % (0.0-4.0); HEMOGLOBIN 8.2 g/dL (11.0-16.0); LYMPH # 1.4 K/uL (1.0-4.3); LYMPH % 11.1 % (20.0-40.0); MEAN CELL VOLUME 85.4 fL (81.0-99.0); MEAN CORPUSCULAR HGB CONC 31.6 g/dL (33.0-37.0); MONO # 1.3 K/uL (0.0-0.8); MONO % 10.1 % (0.0-10.0); NEUT # 9.1 K/uL (1.8-7.0); NEUT % 70.3 % (50.0-75.0); NRBC % 0.1 % (0.0-2.0); RBC 3.03 Mil/uL (3.80-5.20)
[2018-10-09 06:42] LABS: ALB/GLOB RATIO 1.1 (1.0-2.1); ALBUMIN 2.9 g/dL (3.5-5.0); CALCIUM 7.7 mg/dl (8.6-10.4)
--- NOTE | 2018-10-09 07:20 | CON ---
DATE: 10/08/2018 TIME OF EVALUATION: 06:45 a.m. ATTENDING PHYSICIAN: Renato Orlando MD. LOCATION: The patient's room number ICU bed 4. REASON FOR CONSULTATION Seizure activities. CHIEF COMPLAINT:: The patient was admitted with epigastric discomfort. The patient is scheduled to have hemodialysis because of that PermCath been recommended to be placed. Following PermCath, the patient did have cardiopulmonary arrest. Following that generalized seizure activities being documented. During the episode no bowel or bladder incontinence. No bitten tongue. The patient was intubated at that point. PAST MEDICAL HISTORY: Significant for renal disease requiring hemodialysis. Hypothyroidism, hypertension, [id number] diabetes mellitus, status post pituitary surgery for pituitary adenoma in the past, severe peripheral neuropathy related to her diabetes mellitus. PERSONAL HISTORY: At present denies smoking or alcohol use. ALLERGIES: NO KNOWN ALLERGIES. MEDICATIONS: Hydralazine, aspirin, propofol, heparin, insulin, Protonix, Synthroid, piperacillin. REVIEW OF SYSTEMS: 12-point system being reviewed. From neuro, seizure activities. PHYSICAL EXAMINATION: VITAL SIGNS: Blood pressure 131/51, mean artery pressure of 74, respiratory rate 18-on vent, temperature afebrile, pulse rate 62. NECK: Supple. No carotid bruits. HEART: Heart sounds bradycardic. EXTREMITIES: Both legs are externally rotated. NEUROLOGIC: The patient responds to her name. Move her head towards the voice. Speech is absent due to ET tube. She can follow one-step command. Significant right and left confusion. Cranial nerve examination, left palpebral fissure is smaller than the right side. Extraocular movement markedly decreased. Right eye is trophic. No facial sensory deficit. No facial asymmetry. Hearing seems to be intact. Motor examination, she moves left more than her right side. She could able to lift both legs against the gravity as well. Deep tendon reflexes absent. Plantars are equivocal response on both sides. Sensory examination, responds to pain symmetrically on both sides. Coordination, gait is deferred at this time. CONCLUSION: The patient as per neurological examination, the patient showed evidence of for hypoperfusion syndrome following PermCath placement induced cardiopulmonary arrest. Just one episode of seizures, placed on Keppra at this point. Recurrent examination does not show any focal exam suggestive of long tract dysfunction. RECOMMENDATIONS: 1. Continue Keppra for now. 2. Electroencephalogram to rule out any paroxysmal activities. 3. Continue hydration and when medically stable hemodialysis should be continued. The patient's condition discussed with Dr. Orlando. The patient will be followed closely with you. Blu Yost MD
[2018-10-09] MEDS ORDERED: SODIUM CHLORIDE IVPB ONE (08:30)
[2018-10-09] MEDS ORDERED: POTASSIUM PHOSPHATE IVPB ONE (08:30)
[2018-10-09] MEDS ORDERED: Vancomycin 1 gm/NS 200 ml 1 GM/200 ML BAG IVPB STA (09:24)
[2018-10-09] MEDS: levETIRAcetam 100 mg/ml (5ml) Oral Syringe PO SCH ×2 (09:35→17:54)
[2018-10-09] MEDS: Ferric Sodium Gluconat Complex 125 MG in Sodium Chloride 0.9% 100 ML IVPB SCH (10:12)
--- NOTE | 2018-10-09 10:30 | CP.CCUPN ---
CCU Subjective - Physician Review Subjective (Free Text): 10/08/18 10:47 ICU Progress Note for Dr. Ríos Patient seen and examined at bedside this morning. Patient was able to respond to simple commands such as open and close her eyes. Patient still did not raise her arms on command. Per RN patient had BM this morning. Due to patient condition ROS unable to be obtained. 10/08/18 10:49 10/09/18 10:30 CCU Objective - Vital Signs / Intake & Output Vital Signs (Last 4 hours): Vital Signs Temp Pulse Resp BP Pulse Ox 10/09/18 09:00 68 25 H 100 10/09/18 08:53 65 23 146/42 L 100 10/09/18 08:44 70 16 151/49 H 100 10/09/18 08:33 73 20 146/59 L 100 10/09/18 08:24 72 13 128/60 100 10/09/18 08:14 72 28 H 132/55 L 100 10/09/18 08:04 71 24 150/49 L 100 10/09/18 08:00 100 F H 70 10 L 100 10/09/18 07:54 67 12 146/46 L 98 10/09/18 07:43 67 16 158/57 H 100 10/09/18 07:34 70 14 142/61 100 10/09/18 07:24 68 17 135/52 L 100 10/09/18 07:14 68 18 142/52 L 100 10/09/18 07:00 65 13 100 10/09/18 06:53 62 18 139/51 L 100 10/09/18 06:43 64 15 133/53 L 100 10/09/18 06:33 70 18 147/55 L 100 Intake and Output (Last 8hrs): Intake & Output 10/08/18 10/09/18 10/09/18 22:59 06:59 14:59 Intake Total 190 290.4 173 Output Total 0 0 Balance 190 290.4 173 Weight 215 lb 8 oz Intake: IV 55 Intake, IV Amount 50 35.4 93 Right Medial Port Femoral 50 84 Right Proximal Port 35.4 9 Femoral Tube Feeding 80 140 80 Other 60 60 Output: Urine 0 0 Urine, Voided 0 0 Other: # Bowel Movements 1 1 0 - Physical Exam Head: Positive for: Atraumatic, Normocephalic Extroacular Muscles: Positive for: EOMI (dropping eyelid left) Conjunctiva: Positive for: Normal Mouth: Positive for: Moist Mucous Membranes (drooling on ET tube) Respiratory/Chest: Positive for: Clear to Auscultation, Good Air Exchange Cardiovascular: Positive for: Regular Rate and Rhythm Abdomen: Positive for: Normal Bowel Sounds. Negative for: Tenderness, Rebound, Guarding Upper Extremity: Positive for: NORMAL PULSES, Capillary Refill < 2s. Negative for: Cyanosis Lower Extremity: Positive for: NORMAL PULSES, Capillary Refill < 2 s Neurological: Positive for: Other (unable to assess due to patient condition) Skin: Positive for: Warm, Dry, Normal Color Psychiatric: Positive for: Lethargic - Medications Active Medications: Active Medications Generic Name Dose Route Start Last Admin Trade Name Freq PRN Reason Stop Dose Admin Acetaminophen 650 mg 09/29/18 08:30 10/06/18 11:15 Tylenol 325mg Tab PO 650 mg Q6H PRN Administration Pain, Mild (1-3) Acetaminophen 650 mg 10/08/18 10:08 10/09/18 09:59 Tylenol 325mg Tab PO 650 mg Q6 PRN Administration pain+fever Artificial Tears 0 ml 10/07/18 00:00 10/09/18 05:43 Artificial Tears OU 1 drop Q6 JOCELYN Administration Aspirin 81 mg 10/08/18 10:00 10/09/18 09:35 Aspirin Chewable PO 81 mg DAILY JOCELYN Administration Carvedilol 3.125 mg 10/08/18 10:00 10/09/18 09:35 Coreg PO 3.125 mg BID JOCELYN Administration Epoetin Dedrick 10,000 unit 10/04/18 10:00 10/06/18 10:47 Procrit IV Not Given TTS JOCELYN Heparin Sodium (Porcine) 5,000 units 09/29/18 10:00 10/09/18 09:35 Heparin SC 5,000 units Q12 JOCELYN Administration Hydralazine HCl 25 mg 10/08/18 10:46 Apresoline PO BID JOCELYN Hydrocortisone 5 mg 09/29/18 10:00 10/09/18 09:35 Cortef PO 5 mg DAILY JOCELNY Administration Ferric Sodium Gluconate 110 mls @ 110 mls/hr 10/06/18 10:00 10/09/18 10:12 Complex 125 mg/ Sodium IVPB 10/14/18 10:01 110 mls/hr Chloride DAILY JOCELYN Administration Propofol 1,000 mg in 100 mls @ 2.735 mls/hr 10/06/18 00:22 10/09/18 06:00 Diprivan IV 5 mcg/kg/min .Q24H PRN 2.735 mls/hr TITRATE PER MD ORDER Titration Protocol 5 MCG/KG/MIN Piperacillin Sod/Tazobactam Sod 2.25 gm in 50 mls @ 100 mls/hr 10/06/18 14:00 10/09/18 05:41 Zosyn 2.25 Gm Iv Premix IVPB 100 mls/hr Q8 JOCELYN Administration Protocol Potassium Phosphate 40 mmole/ 513.3333 mls @ 42.5 mls/hr 10/09/18 08:30 10/09/18 08:19 Sodium Chloride IVPB 10/09/18 20:34 42.5 mls/hr ONCE ONE Administration Vancomycin/Sodium Chloride 1 gm in 200 mls @ 133 mls/hr 10/09/18 09:24 10/09/18 10:19 Vancomycin 1 Gm/Ns 200 Ml IVPB 10/09/18 10:54 133 mls/hr STAT STA Administration Protocol Insulin Detemir 25 unit 10/08/18 22:00 10/08/18 22:34 Levemir SC 25 u HS JOCELYN Administration Insulin Human Regular 0 unit 10/06/18 12:00 10/09/18 06:33 Novolin R SC 1 u Q6H JOCELYN Administration Protocol Levetiracetam 750 mg 10/08/18 10:00 10/09/18 09:35 Keppra PO 750 mg BID JOCELYN Administration Levothyroxine Sodium 50 mcg 09/29/18 08:00 10/09/18 05:43 Synthroid PO 50 mcg 0600 JOCELYN Administration Pantoprazole Sodium 40 mg 10/09/18 06:00 10/09/18 05:43 Protonix Susp PO 40 mg 0600 JOCELYN Administration Propofol 100 mg 10/05/18 18:00 10/06/18 17:21 Diprivan IV 100 mg TITR JOCELYN Administration Rosuvastatin Calcium 10 mg 09/30/18 22:00 10/08/18 22:34 Crestor PO 10 mg HS JOCELYN Administration - Patient Studies Lab Studies: Microbiology Studies 10/07/18 21:17 Urine Culture - Final Urine,Rodriguez No Growth (<1,000 CFU/ML) 10/07/18 20:00 Gram Stain - Final Trachasp Sputum Culture - Preliminary Staphylococcus Aureus 10/07/18 20:00 Blood Culture - Preliminary Blood-Venous NO GROWTH AFTER 24 HOURS 10/07/18 20:20 Blood Culture - Preliminary Blood-Venous NO GROWTH AFTER 24 HOURS Lab Studies 10/09/18 10/09/18 10/09/18 Range/Units 06:10 06:10 05:38 WBC 13.0 H (4.8-10.8) K/uL RBC 3.03 L (3.80-5.20) Mil/uL Hgb 8.2 L (11.0-16.0) g/dL Hct 25.9 L (34.0-47.0) % MCV 85.4 (81.0-99.0) fL MCH 27.0 (27.0-31.0) pg MCHC 31.6 L (33.0-37.0) g/dL RDW 15.0 H (11.5-14.5) % Plt Count 149 (130-400) K/uL MPV 10.0 (7.2-11.7) fL Neut % (Auto) 70.3 (50.0-75.0) % Lymph % (Auto) 11.1 L (20.0-40.0) % [place] % (Auto) 10.1 H (0.0-10.0) % Eos % (Auto) 8.1 H (0.0-4.0) % Baso % (Auto) 0.4 (0.0-2.0) % Neut # (Auto) 9.1 H (1.8-7.0) K/uL Lymph # (Auto) 1.4 (1.0-4.3) K/uL [place] # (Auto) 1.3 H (0.0-0.8) K/uL Eos # (Auto) 1.0 H (0.0-0.7) K/uL Baso # (Auto) 0.1 (0.0-0.2) K/uL Puncture Site pCO2 (35-45) mm/Hg pO2 (80-100) mm/Hg HCO3 (21-28) mmol/L ABG pH (7.35-7.45) ABG Total CO2 (22-28) mmol/L ABG O2 Saturation (95-98) % ABG Base Excess (-2.0-3.0) mmol/L Jimenez Test ABG Potassium (3.6-5.2) mmol/L A-a O2 Difference mm/Hg Respiratory Index Sodium 136 (132-148) mmol/l Chloride 99 (98-107) mmol/L Glucose (65-105) mg/dl Lactate (0.7-2.1) mmol/L Vent Mode Mechanical Rate FiO2 % Tidal Volume PEEP Potassium 3.6 (3.6-5.2) mmol/L Carbon Dioxide 32 H (22-30) mmol/L Anion Gap 9 L (10-20) BUN 17 (7-17) mg/dL Creatinine 2.8 H (0.7-1.2) mg/dL Est GFR ( Amer) 20 Est GFR (Non-Af Amer) 17 POC Glucose (mg/dL) 191 H (65-110) mg/dL Random Glucose 177 H D (65-105) mg/dL Calcium 7.7 L (8.6-10.4) mg/dl Phosphorus 1.5 L (2.5-4.5) mg/dL Magnesium 1.9 (1.6-2.3) mg/dL Total Bilirubin 0.3 (0.2-1.3) mg/dL AST 31 (14-36) U/L ALT 39 (9-52) U/L Alkaline Phosphatase 121 (38-126) U/L Total Protein 5.5 L (6.3-8.3) g/dL Albumin 2.9 L (3.5-5.0) g/dL Globulin 2.6 (2.2-3.9) gm/dL Albumin/Globulin Ratio 1.1 (1.0-2.1) Arterial Blood Potassium (3.6-5.2) mmol/L C. difficile Ag & Toxin (NEGATIVE) 10/09/18 10/09/18 10/08/18 Range/Units 04:58 00:15 17:42 WBC (4.8-10.8) K/uL RBC (3.80-5.20) Mil/uL Hgb (11.0-16.0) g/dL Hct (34.0-47.0) % MCV (81.0-99.0) fL MCH (27.0-31.0) pg MCHC (33.0-37.0) g/dL RDW (11.5-14.5) % Plt Count (130-400) K/uL MPV (7.2-11.7) fL Neut % (Auto) (50.0-75.0) % Lymph % (Auto) (20.0-40.0) % [place] % (Auto) (0.0-10.0) % Eos % (Auto) (0.0-4.0) % Baso % (Auto) (0.0-2.0) % Neut # (Auto) (1.8-7.0) K/uL Lymph # (Auto) (1.0-4.3) K/uL [place] # (Auto) (0.0-0.8) K/uL Eos # (Auto) (0.0-0.7) K/uL Baso # (Auto) (0.0-0.2) K/uL Puncture Site Rr pCO2 37 (35-45) mm/Hg pO2 134 H (80-100) mm/Hg HCO3 28.1 H (21-28) mmol/L ABG pH 7.48 H (7.35-7.45) ABG Total CO2 28.7 H (22-28) mmol/L ABG O2 Saturation 99.6 H (95-98) % ABG Base Excess 4.0 H (-2.0-3.0) mmol/L Jimenez Test Pos ABG Potassium 3.1 L (3.6-5.2) mmol/L A-a O2 Difference 176.0 mm/Hg Respiratory Index 1.3 Sodium 141.0 (132-148) mmol/l Chloride 111.0 H (98-107) mmol/L Glucose 163 H (65-105) mg/dl Lactate 0.8 (0.7-2.1) mmol/L Vent Mode Prvc Mechanical Rate 18 FiO2 50.0 % Tidal Volume 450 PEEP 5 Potassium (3.6-5.2) mmol/L Carbon Dioxide (22-30) mmol/L Anion Gap (10-20) BUN (7-17) mg/dL Creatinine (0.7-1.2) mg/dL Est GFR ( Amer) Est GFR (Non-Af Amer) POC Glucose (mg/dL) 209 H 185 H (65-110) mg/dL Random Glucose (65-105) mg/dL Calcium (8.6-10.4) mg/dl Phosphorus (2.5-4.5) mg/dL Magnesium (1.6-2.3) mg/dL Total Bilirubin (0.2-1.3) mg/dL AST (14-36) U/L ALT (9-52) U/L Alkaline Phosphatase (38-126) U/L Total Protein (6.3-8.3) g/dL Albumin (3.5-5.0) g/dL Globulin (2.2-3.9) gm/dL Albumin/Globulin Ratio (1.0-2.1) Arterial Blood Potassium 3.1 L (3.6-5.2) mmol/L C. difficile Ag & Toxin (NEGATIVE) 10/08/18 10/08/18 Range/Units 13:25 11:14 WBC (4.8-10.8) K/uL RBC (3.80-5.20) Mil/uL Hgb (11.0-16.0) g/dL Hct (34.0-47.0) % MCV (81.0-99.0) fL MCH (27.0-31.0) pg MCHC (33.0-37.0) g/dL RDW (11.5-14.5) % Plt Count (130-400) K/uL MPV (7.2-11.7) fL Neut % (Auto) (50.0-75.0) % Lymph % (Auto) (20.0-40.0) % [place] % (Auto) (0.0-10.0) % Eos % (Auto) (0.0-4.0) % Baso % (Auto) (0.0-2.0) % Neut # (Auto) (1.8-7.0) K/uL Lymph # (Auto) (1.0-4.3) K/uL [place] # (Auto) (0.0-0.8) K/uL Eos # (Auto) (0.0-0.7) K/uL Baso # (Auto) (0.0-0.2) K/uL Puncture Site pCO2 (35-45) mm/Hg pO2 (80-100) mm/Hg HCO3 (21-28) mmol/L ABG pH (7.35-7.45) ABG Total CO2 (22-28) mmol/L ABG O2 Saturation (95-98) % ABG Base Excess (-2.0-3.0) mmol/L Jimenez Test ABG Potassium (3.6-5.2) mmol/L A-a O2 Difference mm/Hg Respiratory Index Sodium (132-148) mmol/l Chloride (98-107) mmol/L Glucose (65-105) mg/dl Lactate (0.7-2.1) mmol/L Vent Mode Mechanical Rate FiO2 % Tidal Volume PEEP Potassium (3.6-5.2) mmol/L Carbon Dioxide (22-30) mmol/L Anion Gap (10-20) BUN (7-17) mg/dL Creatinine (0.7-1.2) mg/dL Est GFR ( Amer) Est GFR (Non-Af Amer) POC Glucose (mg/dL) 266 H (65-110) mg/dL Random Glucose (65-105) mg/dL Calcium (8.6-10.4) mg/dl Phosphorus (2.5-4.5) mg/dL Magnesium (1.6-2.3) mg/dL Total Bilirubin (0.2-1.3) mg/dL AST (14-36) U/L ALT (9-52) U/L Alkaline Phosphatase (38-126) U/L Total Protein (6.3-8.3) g/dL Albumin (3.5-5.0) g/dL Globulin (2.2-3.9) gm/dL Albumin/Globulin Ratio (1.0-2.1) Arterial Blood Potassium (3.6-5.2) mmol/L C. difficile Ag & Toxin Negative (NEGATIVE) Laboratory Results - last 24 hr 10/08/18 10/08/18 10/08/18 11:14 13:25 17:42 WBC RBC Hgb Hct MCV MCH MCHC RDW Plt Count MPV Neut % (Auto) Lymph % (Auto) [place] % (Auto) Eos % (Auto) Baso % (Auto) Neut # (Auto) Lymph # (Auto) [place] # (Auto) Eos # (Auto) Baso # (Auto) Puncture Site pCO2 pO2 HCO3 ABG pH ABG Total CO2 ABG O2 Saturation ABG Base Excess Jimenez Test ABG Potassium A-a O2 Difference Respiratory Index Sodium Chloride Glucose Lactate Vent Mode Mechanical Rate FiO2 Tidal Volume PEEP Potassium Carbon Dioxide Anion Gap BUN Creatinine Est GFR ( Amer) Est GFR (Non-Af Amer) POC Glucose (mg/dL) 266 H 185 H Random Glucose Calcium Phosphorus Magnesium Total Bilirubin AST ALT Alkaline Phosphatase Total Protein Albumin Globulin Albumin/Globulin Ratio Arterial Blood Potassium C. difficile Ag & Toxin Negative 10/09/18 10/09/18 10/09/18 00:15 04:58 05:38 WBC RBC Hgb Hct MCV MCH MCHC RDW Plt Count MPV Neut % (Auto) Lymph % (Auto) [place] % (Auto) Eos % (Auto) Baso % (Auto) Neut # (Auto) Lymph # (Auto) [place] # (Auto) Eos # (Auto) Baso # (Auto) Puncture Site Rr pCO2 37 pO2 134 H HCO3 28.1 H ABG pH 7.48 H ABG Total CO2 28.7 H ABG O2 Saturation 99.6 H ABG Base Excess 4.0 H Jimenez Test Pos ABG Potassium 3.1 L A-a O2 Difference 176.0 Respiratory Index 1.3 Sodium 141.0 Chloride 111.0 H Glucose 163 H Lactate 0.8 Vent Mode Prvc Mechanical Rate 18 FiO2 50.0 Tidal Volume 450 PEEP 5 Potassium Carbon Dioxide Anion Gap BUN Creatinine Est GFR ( Amer) Est GFR (Non-Af Amer) POC Glucose (mg/dL) 209 H 191 H Random Glucose Calcium Phosphorus Magnesium Total Bilirubin AST ALT Alkaline Phosphatase Total Protein Albumin Globulin Albumin/Globulin Ratio Arterial Blood Potassium 3.1 L C. difficile Ag & Toxin 10/09/18 10/09/18 06:10 06:10 WBC 13.0 H RBC 3.03 L Hgb 8.2 L Hct 25.9 L MCV 85.4 MCH 27.0 MCHC 31.6 L RDW 15.0 H Plt Count 149 MPV 10.0 Neut % (Auto) 70.3 Lymph % (Auto) 11.1 L [place] % (Auto) 10.1 H Eos % (Auto) 8.1 H Baso % (Auto) 0.4 Neut # (Auto) 9.1 H Lymph # (Auto) 1.4 [place] # (Auto) 1.3 H Eos # (Auto) 1.0 H Baso # (Auto) 0.1 Puncture Site pCO2 pO2 HCO3 ABG pH ABG Total CO2 ABG O2 Saturation ABG Base Excess Jimenez Test ABG Potassium A-a O2 Difference Respiratory Index Sodium 136 Chloride 99 Glucose Lactate Vent Mode Mechanical Rate FiO2 Tidal Volume PEEP Potassium 3.6 Carbon Dioxide 32 H Anion Gap 9 L BUN 17 Creatinine 2.8 H Est GFR ( Amer) 20 Est GFR (Non-Af Amer) 17 POC Glucose (mg/dL) Random Glucose 177 H D Calcium 7.7 L Phosphorus 1.5 L Magnesium 1.9 Total Bilirubin 0.3 AST 31 ALT 39 Alkaline Phosphatase 121 Total Protein 5.5 L Albumin 2.9 L Globulin 2.6 Albumin/Globulin Ratio 1.1 Arterial Blood Potassium C. difficile Ag & Toxin Fingerstick Blood Sugar Results: 191 Assessment/Plan - Assessment and Plan (Free Text) Assessment: 72 yo female w/ PMHx of CKD 5, CHF, CAD post stent, pituitary adenoma, DM2, HTN admitted for cardiac arrest during AVF placement and catheter on 10/05. Patient was intubated by anaesthesia team. Neuro responsive to some voice commands (ex: open/close eyes) sedation d/abhishek CT head 10/06: right sphenoid sinus mucosal thickening. MRI recommended by radiologist for better imaging. Dr. Yost, neuro, suggests post hypoperfusion syndrome and added keppra. Will continue to appreciate recs. Bedside EEG running now to r/o paroxysmal activities. Pending results. Pulm Daily CXR with consistent pulmonary vascular congestion and cardiomegaly Intubated with ET tube 18/50%/450/5 -> CPAP this morning 10/09 with rate 28 and TV 450 -> SBI 62. Will attempt extubation. maintain spo2> 92% Patient had significant retention of CO2 which improved, can be 2/2 obesity hypoventilation syndrome. Now ABG 7.48 and pCO2 at 37, was formerly pCO2 > 100. CV s/p cardiac arrest EKG showed sinus bradycardia with first degree heart block. Per Dr. Wagoner, unlikely primary cardiac event due to normal stress test and normal EF. Trops negative x 3. Aspirin, hydralazine, and crestor daily s/p Code Freeze, initiated at 4:35 pm 10/05 Dr. Wagoner, cardio, following. Will continue to appreciate recs. Endo Pt with history of pituitary adenoma Continue with PO hydrocortisone, Synthroid, and Levemir Pt with DM. Increased detemir from 20 u sq to 25 u sq GI No active issues Protonix Renal Phoslo d/abhishek 10/08 Continue with EPO and Ferrlicet, and MWF dialysis s/p extra dialysis 10/07. Dr. Segundo nephro, following. Will appreciate further recs. ID Tmax 24h 101.3F Tylenol PRN for fever ordered 10/08: Urinalysis positive for leuk est and many WBC +MRSA nares 09/29, s/p vanco x 1 on 10/07, can consider mupirocin for the nares Patient on zosyn 2.25g q8h since 10/06 New 10/07 trachasp grew staph aureus -> vancomycin 1g IV x 1 will d/c R femoral TLC today, 10/09; been present for > 24h Pending stool studies - c. dif. Patient w/ diarrhea multiple times 10/08 per pt DVT ppx: heparin 5000 u sq q12h GI ppx: Protonix 40 mg IV daily case discussed with Dr. Michoacano Bowden PGY1
--- NOTE | 2018-10-09 11:06 | PN ---
DATE: 10/09/2018 TIME OF EVALUATION: 07:15 a.m. NEUROLOGICAL PROBLEM: Seizures secondary to hypoperfusion. PHYSICAL EXAMINATION: VITAL SIGNS: Blood pressure 139/51, mean arterial pressure of 77, respiratory rate 18, temperature afebrile with pulse rate of 65. The patient overnight showed some vegetation and sedation is being started. The patient's eyes are open, but she is lethargic. She moves all four extremities spontaneously. Rest of the examination is unchanged. The patient did have electroencephalogram that will be reviewed by me. We will continue the present management. The patient is medically stable. The patient can be weaned off. Blu Yost MD
--- NOTE | 2018-10-09 12:40 | CP.PCM.PN ---
Subjective - Date & Time of Evaluation Date of Evaluation: 10/09/18 Time of Evaluation: 12:38 - Subjective Subjective: seen and examined events noted s/p cardiac arrest, on vent ROS couldnt be obtained s/p hd monday and monday s/p blood tx Objective - Vital Signs/Intake and Output Vital Signs (last 24 hours): Temp Pulse Resp BP Pulse Ox 99.9 F H 62 28 H 138/43 L 100 10/09/18 12:00 10/09/18 12:03 10/09/18 12:03 10/09/18 12:03 10/09/18 12:03 Intake and Output: 10/09/18 10/09/18 06:59 18:59 Intake Total 440.4 829 Output Total 0 0 Balance 440.4 829 - Medications Medications: Current Medications Acetaminophen (Tylenol 325mg Tab) 650 mg PO Q6H PRN PRN Reason: Pain, Mild (1-3) Last Admin: 10/06/18 11:15 Dose: 650 mg Acetaminophen (Tylenol 325mg Tab) 650 mg PO Q6 PRN PRN Reason: pain+fever Last Admin: 10/09/18 09:59 Dose: 650 mg Artificial Tears (Artificial Tears) 0 ml OU Q6 [facility] Last Admin: 10/09/18 11:40 Dose: 1 drop Aspirin (Aspirin Chewable) 81 mg PO DAILY [facility] Last Admin: 10/09/18 09:35 Dose: 81 mg Carvedilol (Coreg) 3.125 mg PO BID [facility] Last Admin: 10/09/18 09:35 Dose: 3.125 mg Epoetin Dedrick (Procrit) 10,000 unit IV TTS [facility] Last Admin: 10/06/18 10:47 Dose: Not Given Heparin Sodium (Porcine) (Heparin) 5,000 units SC Q12 [facility] Last Admin: 10/09/18 09:35 Dose: 5,000 units Hydralazine HCl (Apresoline) 25 mg PO BID [facility] Hydrocortisone (Cortef) 5 mg PO DAILY [facility] Last Admin: 10/09/18 09:35 Dose: 5 mg Ferric Sodium Gluconate Complex 125 mg/ Sodium Chloride 110 mls @ 110 mls/hr IVPB DAILY [facility] Stop: 10/14/18 10:01 Last Admin: 10/09/18 10:12 Dose: 110 mls/hr Propofol (Diprivan) 1,000 mg in 100 mls @ 2.735 mls/hr IV .Q24H PRN; Protocol PRN Reason: TITRATE PER MD ORDER Last Titration: 10/09/18 09:00 Dose: 0 mcg/kg/min, 0 mls/hr Piperacillin Sod/Tazobactam Sod (Zosyn 2.25 Gm Iv Premix) 2.25 gm in 50 mls @ 100 mls/hr IVPB Q8 JOCELYN; Protocol Last Admin: 10/09/18 05:41 Dose: 100 mls/hr Potassium Phosphate 40 mmole/ (Sodium Chloride) 513.3333 mls @ 42.5 mls/hr IVPB ONCE ONE Stop: 10/09/18 20:34 Last Admin: 10/09/18 08:19 Dose: 42.5 mls/hr Insulin Detemir (Levemir) 25 unit SC [facility] Last Admin: 10/08/18 22:34 Dose: 25 u Insulin Human Regular (Novolin R) 0 unit SC Q6H [facility]; Protocol Last Admin: 10/09/18 11:47 Dose: 2 u Levetiracetam (Keppra) 750 mg PO BID [facility] Last Admin: 10/09/18 09:35 Dose: 750 mg Levothyroxine Sodium (Synthroid) 50 mcg PO 0600 [facility] Last Admin: 10/09/18 05:43 Dose: 50 mcg Pantoprazole Sodium (Protonix Susp) 40 mg PO 0600 [facility] Last Admin: 10/09/18 05:43 Dose: 40 mg Propofol (Diprivan) 100 mg IV TITR [facility] Last Admin: 10/06/18 17:21 Dose: 100 mg Rosuvastatin Calcium (Crestor) 10 mg PO [facility] Last Admin: 10/08/18 22:34 Dose: 10 mg - Labs Labs: 10/09/18 06:10 10/09/18 06:10 PT 13.9 SECONDS (9.7-12.2) H 10/06/18 21:04 INR 1.3 10/06/18 21:04 APTT 45 SECONDS (21-34) H D 10/06/18 21:04 - Constitutional Appears: No Acute Distress, Chronically Ill (obese. on vent) - Head Exam Head Exam: NORMAL INSPECTION, NORMOCEPHALIC - Eye Exam Eye Exam: EOMI, Normal appearance - ENT Exam ENT Exam: Normal Exam (ET tube) - Neck Exam Neck Exam: Normal Inspection - Respiratory Exam Respiratory Exam: NORMAL BREATHING PATTERN (b/l air entry, vent sounds) - Cardiovascular Exam Cardiovascular Exam: REGULAR RHYTHM, RRR - GI/Abdominal Exam GI & Abdominal Exam: Distended, Soft - Extremities Exam Extremities Exam: Normal Inspection, Pedal Edema - Neurological Exam Neurological Exam: absent: Alert, Awake - Skin Skin Exam: Intact, Warm Assessment and Plan (1) ESRD (end stage renal disease) Status: Acute (2) CAD (coronary artery disease) Status: Acute (3) CHF (congestive heart failure) Status: Acute (4) Hypertension Status: Acute - Assessment and Plan (Free Text) Assessment: esrd s/p cardiac arerst vent hypoxic encephalopathy htn plan: hd today and then tts, attempt extubation per icu team ok for picc will need permcath after cardiology clearance
--- NOTE | 2018-10-09 13:12 | RAD ---
Chest x-ray single frontal view History: Intubated. Comparison: 10/08/2017 Findings: Lines and tubes in stable position. Moderate venous congestion. Bilateral hilar prominence. Enlarged ectatic aorta. Cardiomegaly. Degenerative changes in the spine and shoulders. Impression: Lines and tubes in stable position. Moderate venous congestion. Bilateral hilar prominence. Enlarged ectatic aorta. Cardiomegaly.
[2018-10-09] MEDS: Epoetin Alfa 10,000 unit/ml Dialysis IV SCH (14:27)
--- NOTE | 2018-10-09 16:28 | CP.PCM.PCO ---
Physician Communication Note - Physician Communication Note Physician Communication Note: will plan for permacath , 10/11
--- NOTE | 2018-10-09 16:35 | CP.PCM.PN ---
<Yecenia Worley - Last Filed: 10/09/18 17:07> Subjective - Date & Time of Evaluation Date of Evaluation: 10/09/18 Time of Evaluation: 16:31 - Subjective Subjective: PGY3 progress note for cardiology Pt seen and examined at bedside. Currently intubated and pt appears restless. No acute events overnight. ROS unobtainable due to intubation. Objective - Vital Signs/Intake and Output Vital Signs (last 24 hours): Temp Pulse Resp BP Pulse Ox 97.7 F 65 16 131/47 L 100 10/09/18 16:00 10/09/18 16:16 10/09/18 16:16 10/09/18 16:16 10/09/18 16:16 Intake and Output: 10/09/18 10/09/18 06:59 18:59 Intake Total 440.4 1117 Output Total 0 0 Balance 440.4 1117 - Medications Medications: Current Medications Acetaminophen (Tylenol 325mg Tab) 650 mg PO Q6H PRN PRN Reason: Pain, Mild (1-3) Last Admin: 10/06/18 11:15 Dose: 650 mg Acetaminophen (Tylenol 325mg Tab) 650 mg PO Q6 PRN PRN Reason: pain+fever Last Admin: 10/09/18 09:59 Dose: 650 mg Artificial Tears (Artificial Tears) 0 ml OU Q6 [facility] Last Admin: 10/09/18 11:40 Dose: 1 drop Aspirin (Aspirin Chewable) 81 mg PO DAILY [facility] Last Admin: 10/09/18 09:35 Dose: 81 mg Carvedilol (Coreg) 3.125 mg PO BID [facility] Last Admin: 10/09/18 09:35 Dose: 3.125 mg Epoetin Dedrick (Procrit) 10,000 unit IV TTS [facility] Last Admin: 10/09/18 14:27 Dose: 10,000 unit Heparin Sodium (Porcine) (Heparin) 5,000 units SC Q12 [facility] Last Admin: 10/09/18 09:35 Dose: 5,000 units Hydralazine HCl (Apresoline) 25 mg PO BID [facility] Hydrocortisone (Cortef) 5 mg PO DAILY [facility] Last Admin: 10/09/18 09:35 Dose: 5 mg Ferric Sodium Gluconate Complex 125 mg/ Sodium Chloride 110 mls @ 110 mls/hr IVPB DAILY [facility] Stop: 10/14/18 10:01 Last Admin: 10/09/18 10:12 Dose: 110 mls/hr Propofol (Diprivan) 1,000 mg in 100 mls @ 2.735 mls/hr IV .Q24H PRN; Protocol PRN Reason: TITRATE PER MD ORDER Last Titration: 10/09/18 09:00 Dose: 0 mcg/kg/min, 0 mls/hr Piperacillin Sod/Tazobactam Sod (Zosyn 2.25 Gm Iv Premix) 2.25 gm in 50 mls @ 1 00 mls/hr IVPB Q8 [facility]; Protocol Last Admin: 10/09/18 05:41 Dose: 100 mls/hr Potassium Phosphate 40 mmole/ (Sodium Chloride) 513.3333 mls @ 42.5 mls/hr IVPB ONCE ONE Stop: 10/09/18 20:34 Last Admin: 10/09/18 08:19 Dose: 42.5 mls/hr Insulin Detemir (Levemir) [address] [facility] Last Admin: 10/08/18 22:34 Dose: 25 u Insulin Human Regular (Novolin R) 0 unit SC Q6H [facility]; Protocol Last Admin: 10/09/18 11:47 Dose: 2 u Levetiracetam (Keppra) 750 mg PO BID [facility] Last Admin: 10/09/18 09:35 Dose: 750 mg Levothyroxine Sodium (Synthroid) 50 mcg PO 0600 [facility] Last Admin: 10/09/18 05:43 Dose: 50 mcg Pantoprazole Sodium (Protonix Susp) 40 mg PO 0600 [facility] Last Admin: 10/09/18 05:43 Dose: 40 mg Propofol (Diprivan) 100 mg IV TITR [facility] Last Admin: 10/06/18 17:21 Dose: 100 mg Rosuvastatin Calcium (Crestor) [address] [facility] Last Admin: 10/08/18 22:34 Dose: 10 mg - Labs Labs: 10/09/18 06:10 10/09/18 06:10 PT 13.9 SECONDS (9.7-12.2) H 10/06/18 21:04 INR 1.3 10/06/18 21:04 APTT 45 SECONDS (21-34) H D 10/06/18 21:04 - Constitutional Appears: Non-toxic, No Acute Distress - Head Exam Head Exam: ATRAUMATIC, NORMOCEPHALIC - ENT Exam ENT Exam: Mucous Membranes Moist - Respiratory Exam Respiratory Exam: Rhonchi. absent: Accessory Muscle Use, Rales, Wheezes, Respiratory Distress - Cardiovascular Exam Cardiovascular Exam: REGULAR RHYTHM, +S1, +S2 - Neurological Exam Neurological Exam: absent: Alert, Awake - Psychiatric Exam Psychiatric exam: absent: Normal Affect, Normal Mood - Skin Skin Exam: Intact, Normal Color Assessment and Plan - Assessment and Plan (Free Text) Assessment: 72 year old female with past medical history of CAD, CHF, HTN, HLD is being seen s/p respiratory arrest during AV fistula placement surgery. Respiratory arrest - Currently intubated. Management per primary care team HTN - Continue coreg and hydralazine HLD - Continue statin therapy with cresotr CAD - Continue aspirin and statin therapy Case will be discussed with attending, Dr. Wagoner <Jimmy Wagoner - Last Filed: 10/09/18 22:33> Objective - Vital Signs/Intake and Output Vital Signs (last 24 hours): Temp Pulse Resp BP Pulse Ox 98 F 64 15 151/64 H 100 10/09/18 20:00 10/09/18 22:02 10/09/18 22:02 10/09/18 22:02 10/09/18 22:02 Intake and Output: 10/09/18 10/10/18 18:59 06:59 Intake Total 1428.7 377.6 Output Total 1500 0 Balance -71.3 377.6 - Medications Medications: Current Medications Acetaminophen (Tylenol 325mg Tab) 650 mg PO Q6H PRN PRN Reason: Pain, Mild (1-3) Last Admin: 10/06/18 11:15 Dose: 650 mg Acetaminophen (Tylenol 325mg Tab) 650 mg PO Q6 PRN PRN Reason: pain+fever Last Admin: 10/09/18 09:59 Dose: 650 mg Artificial Tears (Artificial Tears) 0 ml OU Q6 [facility] Last Admin: 10/09/18 17:54 Dose: 1 drop Aspirin (Aspirin Chewable) 81 mg PO DAILY [facility] Last Admin: 10/09/18 09:35 Dose: 81 mg Carvedilol (Coreg) 3.125 mg PO BID [facility] Last Admin: 10/09/18 17:55 Dose: Not Given Epoetin Dedrick (Procrit) 10,000 unit IV TTS [facility] Last Admin: 10/09/18 14:27 Dose: 10,000 unit Heparin Sodium (Porcine) (Heparin) 5,000 units SC Q12 [facility] Last Admin: 10/09/18 21:33 Dose: 5,000 units Hydralazine HCl (Apresoline) 25 mg PO BID [facility] Hydrocortisone (Cortef) 5 mg PO DAILY [facility] Last Admin: 10/09/18 09:35 Dose: 5 mg Ferric Sodium Gluconate Complex 125 mg/ Sodium Chloride 110 mls @ 110 mls/hr IVPB DAILY [facility] Stop: 10/14/18 10:01 Last Admin: 10/09/18 10:12 Dose: 110 mls/hr Propofol (Diprivan) 1,000 mg in 100 mls @ 2.735 mls/hr IV .Q24H PRN; Protocol PRN Reason: TITRATE PER MD ORDER Last Admin: 10/09/18 17:28 Dose: 10 mcg/kg/min, 5.471 mls/hr Piperacillin Sod/Tazobactam Sod (Zosyn 2.25 Gm Iv Premix) 2.25 gm in 50 mls @ 100 mls/hr IVPB Q8 [facility]; Protocol Last Admin: 10/09/18 21:32 Dose: 100 mls/hr Insulin Detemir (Levemir) [address] [facility] Last Admin: 10/09/18 21:32 Dose: 25 u Insulin Human Regular (Novolin R) 0 unit SC Q6H [facility]; Protocol Last Admin: 10/09/18 17:58 Dose: 1 u Levetiracetam (Keppra) 750 mg PO BID [facility] Last Admin: 10/09/18 17:54 Dose: 750 mg Levothyroxine Sodium (Synthroid) 50 mcg PO 0600 [facility] Last Admin: 10/09/18 05:43 Dose: 50 mcg Pantoprazole Sodium (Protonix Susp) 40 mg PO 0600 [facility] Last Admin: 10/09/18 05:43 Dose: 40 mg Propofol (Diprivan) 100 mg IV TITR [facility] Last Admin: 10/06/18 17:21 Dose: 100 mg Rosuvastatin Calcium (Crestor) 10 mg PO HS [facility] Last Admin: 10/09/18 21:33 Dose: 10 mg - Labs Labs: 10/09/18 06:10 10/09/18 06:10 PT 13.9 SECONDS (9.7-12.2) H 10/06/18 21:04 INR 1.3 10/06/18 21:04 APTT 45 SECONDS (21-34) H D 10/06/18 21:04 Assessment and Plan - Assessment and Plan (Free Text) Assessment: Patient seen and evaluated personally by me. Plan of care d/w the medical researcher and as documented
[2018-10-09] MEDS: Insulin Detemir 100 units/ml Vial (Levemir) SC SCH (21:32)
[2018-10-10] MEDS: (Novolin R) Insulin Human Regular 100 units/ml vial SC SCH ×4 (00:12→18:42)
[2018-10-10] MEDS: Aritificial Tears (15ml) OU SCH ×2 (00:13→05:21)
[2018-10-10] MEDS: Levothyroxine 50 MCG TAB PO SCH (05:21)
[2018-10-10] MEDS: Pantoprazole 40 mg Susp UD PO SCH (05:21)
[2018-10-10] MEDS: Piperacill/Tazo 2.25gm in Dex 2.25 GM/50 ML BAG IVPB SCH ×3 (05:21→21:31)
[2018-10-10 05:34] LABS: BASO # 0.1 K/uL (0.0-0.2); BASO % 0.6 % (0.0-2.0); EOS # 1.3 K/uL (0.0-0.7); HEMOGLOBIN 8.2 g/dL (11.0-16.0); LYMPH # 1.5 K/uL (1.0-4.3); LYMPH % 14.4 % (20.0-40.0); MEAN CELL VOLUME 85.6 fL (81.0-99.0); MEAN CORPUSCULAR HGB CONC 31.5 g/dL (33.0-37.0); MEAN PLATELET VOLUME 9.7 fL (7.2-11.7); MONO # 1.3 K/uL (0.0-0.8); MONO % 12.4 % (0.0-10.0); NEUT # 6.2 K/uL (1.8-7.0); NEUT % 59.6 % (50.0-75.0); NRBC % 0.1 % (0.0-2.0); RBC 3.06 Mil/uL (3.80-5.20); RED CELL DISTRIBUTION WIDTH 14.9 % (11.5-14.5); WHITE BLOOD COUNT 10.4 K/uL (4.8-10.8)
[2018-10-10 05:51] LABS: ALB/GLOB RATIO 1.1 (1.0-2.1); CALCIUM 7.4 mg/dl (8.6-10.4)
[2018-10-10 06:35] LABS: ARTERIAL BLOOD GAS HCO3 30.1 mmol/L (21-28); ARTERIAL BLOOD GAS O2 SAT 99.1 % (95-98); ARTERIAL BLOOD GAS PCO2 44 mm/Hg (35-45); ARTERIAL BLOOD GAS PH 7.46 (7.35-7.45); ARTERIAL BLOOD GAS PO2 119 mm/Hg (80-100); ARTERIAL BLOOD GAS TCO2 32.7 mmol/L (22-28)
--- NOTE | 2018-10-10 07:40 | RAD ---
Date of service: 10/10/2018 HISTORY: intubated COMPARISON: Portable chest 10/09/2018 FINDINGS: LUNGS: Endotracheal tube and right central venous dialysis catheter unchanged in position. Nasogastric tube again identified identified without significant change as well. Diminished pulmonary volumes bilaterally. Borderline patchy infiltrate right infrahilar region with remaining lung flynn clear. PLEURA: No significant pleural effusion identified, no pneumothorax apparent. CARDIOVASCULAR: Calcific atherosclerotic changes are seen related to the thoracic aorta. Cardiac silhouette remains prominent. No pulmonary vascular congestion. OSSEOUS STRUCTURES: No significant abnormalities. VISUALIZED UPPER ABDOMEN: Normal. OTHER FINDINGS: None. IMPRESSION: Borderline patchy atelectasis or infiltrate right infrahilar region. Tubes and catheters unchanged in position. Cardiac silhouette remains prominent appearing without pulmonary vascular congestion.
--- NOTE | 2018-10-10 07:56 | CP.PCM.PN ---
Subjective - Date & Time of Evaluation Date of Evaluation: 10/09/18 Time of Evaluation: 07:55 - Subjective Subjective: The patient tolerated a CPAP the whole day today. She also received hemodialysis. Right femoral catheter present. Which will be removed tomorrow. Patient tolerating CPAP. But she is somewhat restless. Focusing but delirious noted. Vital signs otherwise stable. Sugar stable. Episodes of diarrhea noted. CT was negative. Overall prognosis is poor. We will continue the current treatment. And will follow the patient Objective - Vital Signs/Intake and Output Vital Signs (last 24 hours): Temp Pulse Resp BP Pulse Ox 98.2 F 59 L 15 113/48 L 100 10/10/18 04:00 10/10/18 07:03 10/10/18 07:03 10/10/18 07:03 10/10/18 07:03 Intake and Output: 10/10/18 10/10/18 06:59 18:59 Intake Total 912.5 47 Output Total 0 0 Balance 912.5 47 - Medications Medications: Current Medications Acetaminophen (Tylenol 325mg Tab) 650 mg PO Q6H PRN PRN Reason: Pain, Mild (1-3) Last Admin: 10/06/18 11:15 Dose: 650 mg Acetaminophen (Tylenol 325mg Tab) 650 mg PO Q6 PRN PRN Reason: pain+fever Last Admin: 10/09/18 09:59 Dose: 650 mg Artificial Tears (Artificial Tears) 0 ml OU Q6 [facility] Last Admin: 10/10/18 05:21 Dose: 1 drop Aspirin (Aspirin Chewable) 81 mg PO DAILY [facility] Last Admin: 10/09/18 09:35 Dose: 81 mg Carvedilol (Coreg) 3.125 mg PO BID [facility] Last Admin: 10/09/18 17:55 Dose: Not Given Epoetin Dedrick (Procrit) 10,000 unit IV TTS [facility] Last Admin: 10/09/18 14:27 Dose: 10,000 unit Heparin Sodium (Porcine) (Heparin) 5,000 units SC Q12 [facility] Last Admin: 10/09/18 21:33 Dose: 5,000 units Hydralazine HCl (Apresoline) 25 mg PO BID [facility] Hydrocortisone (Cortef) 5 mg PO DAILY [facility] Last Admin: 10/09/18 09:35 Dose: 5 mg Ferric Sodium Gluconate Complex 125 mg/ Sodium Chloride 110 mls @ 110 mls/hr IVPB DAILY [facility] Stop: 10/14/18 10:01 Last Admin: 10/09/18 10:12 Dose: 110 mls/hr Propofol (Diprivan) 1,000 mg in 100 mls @ 2.735 mls/hr IV .Q24H PRN; Protocol PRN Reason: TITRATE PER MD ORDER Last Titration: 10/10/18 03:00 Dose: 12 mcg/kg/min, 6.565 mls/hr Piperacillin Sod/Tazobactam Sod (Zosyn 2.25 Gm Iv Premix) 2.25 gm in 50 mls @ 100 mls/hr IVPB Q8 [facility]; Protocol Last Admin: 10/10/18 05:21 Dose: 100 mls/hr Potassium Phosphate 40 mmole/ (Sodium Chloride) 513.3333 mls @ 42.5 mls/hr IVPB ONCE ONE Stop: 10/10/18 20:04 Insulin Detemir (Levemir) 25 unit SC [facility] Last Admin: 10/09/18 21:32 Dose: 25 u Insulin Human Regular (Novolin R) 0 unit SC Q6H [facility]; Protocol Last Admin: 10/10/18 05:21 Dose: 1 u Levetiracetam (Keppra) 750 mg PO BID [facility] Last Admin: 10/09/18 17:54 Dose: 750 mg Levothyroxine Sodium (Synthroid) 50 mcg PO 0600 [facility] Last Admin: 10/10/18 05:21 Dose: 50 mcg Pantoprazole Sodium (Protonix Susp) 40 mg PO 0600 [facility] Last Admin: 10/10/18 05:21 Dose: 40 mg Propofol (Diprivan) 100 mg IV TITR [facility] Last Admin: 10/06/18 17:21 Dose: 100 mg Rosuvastatin Calcium (Crestor) 10 mg PO HS [facility] Last Admin: 10/09/18 21:33 Dose: 10 mg - Labs Labs: 10/10/18 05:20 10/10/18 05:20 PT 13.9 SECONDS (9.7-12.2) H 10/06/18 21:04 INR 1.3 10/06/18 21:04 APTT 45 SECONDS (21-34) H D 10/06/18 21:04 Assessment and Plan (1) Acute on chronic renal failure Status: Acute (2) Diabetic nephropathy associated with type 2 diabetes mellitus Status: Acute (3) Uremia, acute Status: Acute
--- NOTE | 2018-10-10 07:59 | CP.PCM.PN ---
Subjective - Date & Time of Evaluation Date of Evaluation: 10/10/18 Time of Evaluation: 07:57 - Subjective Subjective: Patient on ventilator. Tolerated the CPAP trial yesterday. No fever now. Patient has a femoral catheter. Which will be changed to his PICC line today. Today x-ray showing improvement in the infiltrative changes. Also less fluid overload status noted On examination: Vital signs stable. Chest good air entry. Wheezing noted. Nontender abdomen. Edema negative Assessment and recommendation: 72-year-old female with history of diabetes hypertension CAD hypercholesterolemia renal insufficiency now having end-stage renal disease on dialysis. Patient will be getting a permacath tomorrow. We will plan for daily extubation trial. And possible extubation. Patient also neurologically somewhat delirium at this time. Overall prognosis is poor but neurologically somewhat improving noted We will follow the patient Objective - Vital Signs/Intake and Output Vital Signs (last 24 hours): Temp Pulse Resp BP Pulse Ox 98.2 F 59 L 15 113/48 L 100 10/10/18 04:00 10/10/18 07:03 10/10/18 07:03 10/10/18 07:03 10/10/18 07:03 Intake and Output: 10/10/18 10/10/18 06:59 18:59 Intake Total 912.5 47 Output Total 0 0 Balance 912.5 47 - Medications Medications: Current Medications Acetaminophen (Tylenol 325mg Tab) 650 mg PO Q6H PRN PRN Reason: Pain, Mild (1-3) Last Admin: 10/06/18 11:15 Dose: 650 mg Acetaminophen (Tylenol 325mg Tab) 650 mg PO Q6 PRN PRN Reason: pain+fever Last Admin: 10/09/18 09:59 Dose: 650 mg Aspirin (Aspirin Chewable) 81 mg PO DAILY [facility] Last Admin: 10/09/18 09:35 Dose: 81 mg Carvedilol (Coreg) 3.125 mg PO BID [facility] Last Admin: 10/09/18 17:55 Dose: Not Given Epoetin Dedrick (Procrit) 10,000 unit IV TTS [facility] Last Admin: 10/09/18 14:27 Dose: 10,000 unit Heparin Sodium (Porcine) (Heparin) 5,000 units SC Q12 [facility] Last Admin: 10/09/18 21:33 Dose: 5,000 units Hydralazine HCl (Apresoline) 25 mg PO BID [facility] Hydrocortisone (Cortef) 5 mg PO DAILY [facility] Last Admin: 10/09/18 09:35 Dose: 5 mg Ferric Sodium Gluconate Complex 125 mg/ Sodium Chloride 110 mls @ 110 mls/hr IVPB DAILY [facility] Stop: 10/14/18 10:01 Last Admin: 10/09/18 10:12 Dose: 110 mls/hr Propofol (Diprivan) 1,000 mg in 100 mls @ 2.735 mls/hr IV .Q24H PRN; Protocol PRN Reason: TITRATE PER MD ORDER Last Titration: 10/10/18 03:00 Dose: 12 mcg/kg/min, 6.565 mls/hr Piperacillin Sod/Tazobactam Sod (Zosyn 2.25 Gm Iv Premix) 2.25 gm in 50 mls @ 100 mls/hr IVPB Q8 [facility]; Protocol Last Admin: 10/10/18 05:21 Dose: 100 mls/hr Potassium Phosphate 40 mmole/ (Sodium Chloride) 513.3333 mls @ 42.5 mls/hr IVPB ONCE ONE Stop: 10/10/18 20:04 Insulin Detemir (Levemir) 25 unit SC [facility] Last Admin: 10/09/18 21:32 Dose: 25 u Insulin Human Regular (Novolin R) 0 unit SC Q6H [facility]; Protocol Last Admin: 10/10/18 05:21 Dose: 1 u Levetiracetam (Keppra) 750 mg PO BID [facility] Last Admin: 10/09/18 17:54 Dose: 750 mg Levothyroxine Sodium (Synthroid) 50 mcg PO 0600 [facility] Last Admin: 10/10/18 05:21 Dose: 50 mcg Pantoprazole Sodium (Protonix Susp) 40 mg PO 0600 [facility] Last Admin: 10/10/18 05:21 Dose: 40 mg Propofol (Diprivan) 100 mg IV TITR [facility] Last Admin: 10/06/18 17:21 Dose: 100 mg Rosuvastatin Calcium (Crestor) 10 mg PO HS [facility] Last Admin: 10/09/18 21:33 Dose: 10 mg - Labs Labs: 10/10/18 05:20 10/10/18 05:20 PT 13.9 SECONDS (9.7-12.2) H 01/05/19 21:04 INR 1.3 10/06/18 21:04 APTT 45 SECONDS (21-34) H D 10/06/18 21:04 Assessment and Plan (1) Acute on chronic renal failure Status: Acute (2) Diabetic nephropathy associated with type 2 diabetes mellitus Status: Acute (3) Uremia, acute Status: Acute
[2018-10-10] MEDS: Propofol 10 mg/ml 1,000 MG/100 ML VIAL IV PRN ×2 (08:21→17:19)
[2018-10-10] MEDS: SODIUM CHLORIDE IVPB ONE ×2 (08:42→08:45)
[2018-10-10] MEDS: POTASSIUM PHOSPHATE IVPB ONE ×2 (08:42→08:45)
--- NOTE | 2018-10-10 08:47 | CP.PCM.PN ---
Subjective - Date & Time of Evaluation Date of Evaluation: 10/10/18 Time of Evaluation: 06:45 - Subjective Subjective: Vascular Surgery; Dr. Blank Pt seen and examined. No acute events overnight. Continues to be intubated/sedated in the ICU. Plan for permacath tomorrow. /u Cardio recs. d/w Dr. Abhay Puente Objective - Vital Signs/Intake and Output Vital Signs (last 24 hours): Temp Pulse Resp BP Pulse Ox 98.2 F 59 L 15 113/48 L 100 10/10/18 04:00 10/10/18 07:03 10/10/18 07:03 10/10/18 07:03 10/10/18 07:03 Intake and Output: 10/10/18 10/10/18 06:59 18:59 Intake Total 912.5 96 Output Total 0 0 Balance 912.5 96 - Medications Medications: Current Medications Acetaminophen (Tylenol 325mg Tab) 650 mg PO Q6H PRN PRN Reason: Pain, Mild (1-3) Last Admin: 10/06/18 11:15 Dose: 650 mg Acetaminophen (Tylenol 325mg Tab) 650 mg PO Q6 PRN PRN Reason: pain+fever Last Admin: 10/09/18 09:59 Dose: 650 mg Aspirin (Aspirin Chewable) 81 mg PO DAILY [facility] Last Admin: 10/09/18 09:35 Dose: 81 mg Carvedilol (Coreg) 3.125 mg PO BID [facility] Last Admin: 10/09/18 17:55 Dose: Not Given Epoetin Dedrick (Procrit) 10,000 unit IV TTS [facility] Last Admin: 10/09/18 14:27 Dose: 10,000 unit Heparin Sodium (Porcine) (Heparin) 5,000 units SC Q12 [facility] Last Admin: 10/09/18 21:33 Dose: 5,000 units Hydralazine HCl (Apresoline) 25 mg PO BID [facility] Hydrocortisone (Cortef) 5 mg PO DAILY [facility] Last Admin: 10/09/18 09:35 Dose: 5 mg Ferric Sodium Gluconate Complex 125 mg/ Sodium Chloride 110 mls @ 110 mls/hr IVPB DAILY [facility] Stop: 10/14/18 10:01 Last Admin: 10/09/18 10:12 Dose: 110 mls/hr Propofol (Diprivan) 1,000 mg in 100 mls @ 2.735 mls/hr IV .Q24H PRN; Protocol PRN Reason: TITRATE PER MD ORDER Last Admin: 10/10/18 08:21 Dose: 12 mcg/kg/min, 6.565 mls/hr Piperacillin Sod/Tazobactam Sod (Zosyn 2.25 Gm Iv Premix) 2.25 gm in 50 mls @ 100 mls/hr IVPB Q8 [facility]; Protocol Last Admin: 10/10/18 05:21 Dose: 100 mls/hr Potassium Phosphate 40 mmole/ (Sodium Chloride) 513.3333 mls @ 42.5 mls/hr IVPB ONCE ONE Stop: 10/10/18 20:04 Last Admin: 10/10/18 08:42 Dose: 42.5 mls/hr Insulin Detemir (Levemir) 25 unit SC [facility] Last Admin: 10/09/18 21:32 Dose: 25 u Insulin Human Regular (Novolin R) 0 unit SC Q6H [facility]; Protocol Last Admin: 10/10/18 05:21 Dose: 1 u Levetiracetam (Keppra) 750 mg PO BID [facility] Last Admin: 10/09/18 17:54 Dose: 750 mg Levothyroxine Sodium (Synthroid) 50 mcg PO 0600 [facility] Last Admin: 10/10/18 05:21 Dose: 50 mcg Pantoprazole Sodium (Protonix Susp) 40 mg PO 0600 [facility] Last Admin: 10/10/18 05:21 Dose: 40 mg Propofol (Diprivan) 100 mg IV TITR [facility] Last Admin: 10/06/18 17:21 Dose: 100 mg Rosuvastatin Calcium (Crestor) 10 mg PO [facility] Last Admin: 10/09/18 21:33 Dose: 10 mg - Labs Labs: 10/10/18 05:20 10/10/18 05:20 PT 13.9 SECONDS (9.7-12.2) H 10/06/18 21:04 INR 1.3 10/06/18 21:04 APTT 45 SECONDS (21-34) H D 10/06/18 21:04 - Constitutional Appears: No Acute Distress - ENT Exam Additional comments: intubated/sedated - Cardiovascular Exam Cardiovascular Exam: RRR - GI/Abdominal Exam GI & Abdominal Exam: Soft - Skin Skin Exam: Dry, Warm
--- NOTE | 2018-10-10 09:11 | PN ---
DATE: 10/10/2018 NEUROLOGICAL PROBLEM: Seizures related to hypoperfusion. PHYSICAL EXAMINATION: VITAL SIGNS: Blood pressure 113/48, mean arterial pressure of 69, respiratory rate 15 with pulse rate of 59. The patient is afebrile. The patient is on vent. EXTREMITIES: Moving all 4 extremities purposefully. No abnormal movement. The patient had good visual cue on calling her name. Rest of the exam is unchanged. The patient is under low dose of propofol drip for sedation. LABORATORY DATA: Electroencephalogram being reviewed, mild little slow activities without any paroxysmal activities. Continue the present management. If medically stable, new parameter should be followed. The patient will be followed closely with you. Blu Yost MD
--- NOTE | 2018-10-10 10:17 | CP.CCUPN ---
<Taylor Bowden - Last Filed: 10/10/18 10:18> CCU Subjective - Physician Review Subjective (Free Text): 10/08/18 10:47 ICU Progress Note for Dr. Ríos Patient seen and examined at bedside this morning. Patient had PICC nurse visit for PICC line. PICC line was placed in left side but RN said that permacath will be placed on left side tomorrow 10/11 by surgery team, so it was pulled out. Due to patient condition ROS unable to be obtained. 10/08/18 10:49 10/09/18 10:30 10/10/18 10:13 CCU Objective - Vital Signs / Intake & Output Vital Signs (Last 4 hours): Vital Signs Temp Pulse Resp BP Pulse Ox 10/10/18 09:00 64 18 98 10/10/18 08:46 59 L 21 124/49 L 100 10/10/18 08:00 99.8 F H 65 14 100 10/10/18 07:03 59 L 15 113/48 L 100 10/10/18 07:00 61 10 L 100 Intake and Output (Last 8hrs): Intake & Output 10/09/18 10/10/18 10/10/18 22:59 06:59 14:59 Intake Total 813.3 534.9 206.2 Output Total 1500 0 0 Balance -686.7 534.9 206.2 Weight 211 lb 10.3 oz Intake: IV 40 51 74 Intake, IV Amount 393.3 103.9 22.2 Right Distal Port Femoral 100 50 Right Medial Port Femoral 252 Right Proximal Port 41.3 53.9 22.2 Femoral Oral 30 Tube Feeding 240 320 80 Other 140 60 Output: Urine 0 0 0 Urine, Voided 0 0 0 Other 1500 Other: # Voids Urine, Voided 0 # Bowel Movements 0 0 0 - Physical Exam Head: Positive for: Atraumatic, Normocephalic Extroacular Muscles: Positive for: EOMI (dropping eyelid left) Conjunctiva: Positive for: Normal Mouth: Positive for: Moist Mucous Membranes (drooling on ET tube) Respiratory/Chest: Positive for: Clear to Auscultation, Good Air Exchange Cardiovascular: Positive for: Regular Rate and Rhythm Abdomen: Positive for: Normal Bowel Sounds. Negative for: Tenderness, Rebound, Guarding Upper Extremity: Positive for: NORMAL PULSES, Capillary Refill < 2s. Negative for: Cyanosis Lower Extremity: Positive for: NORMAL PULSES, Capillary Refill < 2 s Neurological: Positive for: Other (unable to assess due to patient condition) Skin: Positive for: Warm, Dry, Normal Color Psychiatric: Positive for: Lethargic - Medications Active Medications: Active Medications Generic Name Dose Route Start Last Admin Trade Name Freq PRN Reason Stop Dose Admin Acetaminophen 650 mg 09/29/18 08:30 10/06/18 11:15 Tylenol 325mg Tab PO 650 mg Q6H PRN Administration Pain, Mild (1-3) Acetaminophen 650 mg 10/08/18 10:08 10/09/18 09:59 Tylenol 325mg Tab PO 650 mg Q6 PRN Administration pain+fever Aspirin 81 mg 10/08/18 10:00 10/09/18 09:35 Aspirin Chewable PO 81 mg DAILY JOCELYN Administration Carvedilol 3.125 mg 10/08/18 10:00 10/09/18 17:55 Coreg PO Not Given BID JOCELYN Epoetin Dedrick 10,000 unit 10/04/18 10:00 10/09/18 14:27 Procrit IV 10,000 unit TTS JOCELYN Administration Heparin Sodium (Porcine) 5,000 units 09/29/18 10:00 10/09/18 21:33 Heparin SC 5,000 units Q12 JOCELYN Administration Hydralazine HCl 25 mg 10/08/18 10:46 Apresoline PO BID JOCELYN Hydrocortisone 5 mg 09/29/18 10:00 10/09/18 09:35 Cortef PO 5 mg DAILY JOCELYN Administration Ferric Sodium Gluconate 110 mls @ 110 mls/hr 10/06/18 10:00 10/09/18 10:12 Complex 125 mg/ Sodium IVPB 10/14/18 10:01 110 mls/hr Chloride DAILY JOCELYN Administration Propofol 1,000 mg in 100 mls @ 2.735 mls/hr 10/06/18 00:22 10/10/18 08:43 Diprivan IV 15 mcg/kg/min .Q24H PRN 8.206 mls/hr TITRATE PER MD ORDER Titration Protocol 5 MCG/KG/MIN Piperacillin Sod/Tazobactam Sod 2.25 gm in 50 mls @ 100 mls/hr 10/06/18 14:00 10/10/18 05:21 Zosyn 2.25 Gm Iv Premix IVPB 100 mls/hr Q8 JOCELNY Administration Protocol Potassium Phosphate 40 mmole/ 513.3333 mls @ 42.5 mls/hr 10/10/18 08:00 10/10/18 08:42 Sodium Chloride IVPB 10/10/18 20:04 42.5 mls/hr ONCE ONE Administration Insulin Detemir 25 unit 10/08/18 22:00 10/09/18 21:32 Levemir SC 25 u HS JOCELYN Administration Insulin Human Regular 0 unit 10/06/18 12:00 10/10/18 05:21 Novolin R SC 1 u Q6H JOCELYN Administration Protocol Levetiracetam 750 mg 10/08/18 10:00 10/09/18 17:54 Keppra PO 750 mg BID JOCELYN Administration Levothyroxine Sodium 50 mcg 09/29/18 08:00 10/10/18 05:21 Synthroid PO 50 mcg 0600 JOCELYN Administration Pantoprazole Sodium 40 mg 10/09/18 06:00 10/10/18 05:21 Protonix Susp PO 40 mg 0600 JOCELYN Administration Propofol 100 mg 10/05/18 18:00 10/06/18 17:21 Diprivan IV 100 mg TITR JOCELYN Administration Rosuvastatin Calcium 10 mg 09/30/18 22:00 10/09/18 21:33 Crestor PO 10 mg HS [facility] Administration - Patient Studies Lab Studies: Microbiology Studies 10/07/18 20:00 Blood Culture - Preliminary Blood-Venous NO GROWTH AFTER 48 HOURS 10/07/18 20:20 Blood Culture - Preliminary Blood-Venous NO GROWTH AFTER 48 HOURS 10/07/18 21:17 Urine Culture - Final Urine,Rodriguez No Growth (<1,000 CFU/ML) 10/07/18 20:00 Gram Stain - Final Trachasp Sputum Culture - Preliminary Staphylococcus Aureus Lab Studies 10/10/18 10/10/18 10/10/18 Range/Units 05:20 05:20 05:18 WBC 10.4 (4.8-10.8) K/uL RBC 3.06 L (3.80-5.20) Mil/uL Hgb 8.2 L (11.0-16.0) g/dL Hct 26.2 L (34.0-47.0) % MCV 85.6 (81.0-99.0) fL MCH 27.0 (27.0-31.0) pg MCHC 31.5 L (33.0-37.0) g/dL RDW 14.9 H (11.5-14.5) % Plt Count 153 (130-400) K/uL MPV 9.7 (7.2-11.7) fL Neut % (Auto) 59.6 (50.0-75.0) % Lymph % (Auto) 14.4 L (20.0-40.0) % Calhoun % (Auto) 12.4 H (0.0-10.0) % Eos % (Auto) 13.0 H (0.0-4.0) % Baso % (Auto) 0.6 (0.0-2.0) % Neut # (Auto) 6.2 (1.8-7.0) K/uL Lymph # (Auto) 1.5 (1.0-4.3) K/uL Calhoun # (Auto) 1.3 H (0.0-0.8) K/uL Eos # (Auto) 1.3 H (0.0-0.7) K/uL Baso # (Auto) 0.1 (0.0-0.2) K/uL Puncture Site R brac pCO2 44 (35-45) mm/Hg pO2 119 H (80-100) mm/Hg HCO3 30.1 H (21-28) mmol/L ABG pH 7.46 H (7.35-7.45) ABG Total CO2 32.7 H (22-28) mmol/L ABG O2 Saturation 99.1 H (95-98) % ABG Base Excess 6.6 H (-2.0-3.0) mmol/L Jimenez Test Na ABG Potassium 3.2 L (3.6-5.2) mmol/L A-a O2 Difference 183.0 mm/Hg Respiratory Index 1.5 Sodium 139 141.0 (132-148) mmol/l Chloride 100 107.0 (98-107) mmol/L Glucose 164 H (65-105) mg/dl Lactate 0.8 (0.7-2.1) mmol/L Vent Mode Prvc Mechanical Rate 18 FiO2 50.0 % Tidal Volume 450 PEEP 5 Potassium 3.5 L (3.6-5.2) mmol/L Carbon Dioxide 34 H (22-30) mmol/L Anion Gap 9 L (10-20) BUN 19 H (7-17) mg/dL Creatinine 2.8 H (0.7-1.2) mg/dL Est GFR ( Amer) 20 Est GFR (Non-Af Amer) 17 POC Glucose (mg/dL) (65-110) mg/dL Random Glucose 179 H (65-105) mg/dL Calcium 7.4 L (8.6-10.4) mg/dl Phosphorus 3.4 (2.5-4.5) mg/dL Magnesium 1.8 (1.6-2.3) mg/dL Total Bilirubin 0.3 (0.2-1.3) mg/dL AST 38 H D (14-36) U/L ALT 39 (9-52) U/L Alkaline Phosphatase 124 (38-126) U/L Total Protein 5.7 L (6.3-8.3) g/dL Albumin 3.0 L (3.5-5.0) g/dL Globulin 2.7 (2.2-3.9) gm/dL Albumin/Globulin Ratio 1.1 (1.0-2.1) Arterial Blood Potassium 3.2 L (3.6-5.2) mmol/L 10/10/18 10/09/18 10/09/18 Range/Units 05:04 23:45 17:41 WBC (4.8-10.8) K/uL RBC (3.80-5.20) Mil/uL Hgb (11.0-16.0) g/dL Hct (34.0-47.0) % MCV (81.0-99.0) fL MCH (27.0-31.0) pg MCHC (33.0-37.0) g/dL RDW (11.5-14.5) % Plt Count (130-400) K/uL MPV (7.2-11.7) fL Neut % (Auto) (50.0-75.0) % Lymph % (Auto) (20.0-40.0) % Calhoun % (Auto) (0.0-10.0) % Eos % (Auto) (0.0-4.0) % Baso % (Auto) (0.0-2.0) % Neut # (Auto) (1.8-7.0) K/uL Lymph # (Auto) (1.0-4.3) K/uL Calhoun # (Auto) (0.0-0.8) K/uL Eos # (Auto) (0.0-0.7) K/uL Baso # (Auto) (0.0-0.2) K/uL Puncture Site pCO2 (35-45) mm/Hg pO2 (80-100) mm/Hg HCO3 (21-28) mmol/L ABG pH (7.35-7.45) ABG Total CO2 (22-28) mmol/L ABG O2 Saturation (95-98) % ABG Base Excess (-2.0-3.0) mmol/L Jimenez Test ABG Potassium (3.6-5.2) mmol/L A-a O2 Difference mm/Hg Respiratory Index Sodium (132-148) mmol/l Chloride (98-107) mmol/L Glucose (65-105) mg/dl Lactate (0.7-2.1) mmol/L Vent Mode Mechanical Rate FiO2 % Tidal Volume PEEP Potassium (3.6-5.2) mmol/L Carbon Dioxide (22-30) mmol/L Anion Gap (10-20) BUN (7-17) mg/dL Creatinine (0.7-1.2) mg/dL Est GFR ( Amer) Est GFR (Non-Af Amer) POC Glucose (mg/dL) 199 H 203 H 178 H (65-110) mg/dL Random Glucose (65-105) mg/dL Calcium (8.6-10.4) mg/dl Phosphorus (2.5-4.5) mg/dL Magnesium (1.6-2.3) mg/dL Total Bilirubin (0.2-1.3) mg/dL AST (14-36) U/L ALT (9-52) U/L Alkaline Phosphatase (38-126) U/L Total Protein (6.3-8.3) g/dL Albumin (3.5-5.0) g/dL Globulin (2.2-3.9) gm/dL Albumin/Globulin Ratio (1.0-2.1) Arterial Blood Potassium (3.6-5.2) mmol/L 10/09/18 Range/Units 11:12 WBC (4.8-10.8) K/uL RBC (3.80-5.20) Mil/uL Hgb (11.0-16.0) g/dL Hct (34.0-47.0) % MCV (81.0-99.0) fL MCH (27.0-31.0) pg MCHC (33.0-37.0) g/dL RDW (11.5-14.5) % Plt Count (130-400) K/uL MPV (7.2-11.7) fL Neut % (Auto) (50.0-75.0) % Lymph % (Auto) (20.0-40.0) % Calhoun % (Auto) (0.0-10.0) % Eos % (Auto) (0.0-4.0) % Baso % (Auto) (0.0-2.0) % Neut # (Auto) (1.8-7.0) K/uL Lymph # (Auto) (1.0-4.3) K/uL Calhoun # (Auto) (0.0-0.8) K/uL Eos # (Auto) (0.0-0.7) K/uL Baso # (Auto) (0.0-0.2) K/uL Puncture Site pCO2 (35-45) mm/Hg pO2 (80-100) mm/Hg HCO3 (21-28) mmol/L ABG pH (7.35-7.45) ABG Total CO2 (22-28) mmol/L ABG O2 Saturation (95-98) % ABG Base Excess (-2.0-3.0) mmol/L Jimenez Test ABG Potassium (3.6-5.2) mmol/L A-a O2 Difference mm/Hg Respiratory Index Sodium (132-148) mmol/l Chloride (98-107) mmol/L Glucose (65-105) mg/dl Lactate (0.7-2.1) mmol/L Vent Mode Mechanical Rate FiO2 % Tidal Volume PEEP Potassium (3.6-5.2) mmol/L Carbon Dioxide (22-30) mmol/L Anion Gap (10-20) BUN (7-17) mg/dL Creatinine (0.7-1.2) mg/dL Est GFR ( Amer) Est GFR (Non-Af Amer) POC Glucose (mg/dL) 213 H (65-110) mg/dL Random Glucose (65-105) mg/dL Calcium (8.6-10.4) mg/dl Phosphorus (2.5-4.5) mg/dL Magnesium (1.6-2.3) mg/dL Total Bilirubin (0.2-1.3) mg/dL AST (14-36) U/L ALT (9-52) U/L Alkaline Phosphatase (38-126) U/L Total Protein (6.3-8.3) g/dL Albumin (3.5-5.0) g/dL Globulin (2.2-3.9) gm/dL Albumin/Globulin Ratio (1.0-2.1) Arterial Blood Potassium (3.6-5.2) mmol/L Laboratory Results - last 24 hr 10/09/18 10/09/18 10/09/18 11:12 17:41 23:45 WBC RBC Hgb Hct MCV MCH MCHC RDW Plt Count MPV Neut % (Auto) Lymph % (Auto) Calhoun % (Auto) Eos % (Auto) Baso % (Auto) Neut # (Auto) Lymph # (Auto) Calhoun # (Auto) Eos # (Auto) Baso # (Auto) Puncture Site pCO2 pO2 HCO3 ABG pH ABG Total CO2 ABG O2 Saturation ABG Base Excess Jimenez Test ABG Potassium A-a O2 Difference Respiratory Index Sodium Chloride Glucose Lactate Vent Mode Mechanical Rate FiO2 Tidal Volume PEEP Potassium Carbon Dioxide Anion Gap BUN Creatinine Est GFR ( Amer) Est GFR (Non-Af Amer) POC Glucose (mg/dL) 213 H 178 H 203 H Random Glucose Calcium Phosphorus Magnesium Total Bilirubin AST ALT Alkaline Phosphatase Total Protein Albumin Globulin Albumin/Globulin Ratio Arterial Blood Potassium 10/10/18 10/10/18 10/10/18 05:04 05:18 05:20 WBC 10.4 RBC 3.06 L Hgb 8.2 L Hct 26.2 L MCV 85.6 MCH 27.0 MCHC 31.5 L RDW 14.9 H Plt Count 153 MPV 9.7 Neut % (Auto) 59.6 Lymph % (Auto) 14.4 L Calhoun % (Auto) 12.4 H Eos % (Auto) 13.0 H Baso % (Auto) 0.6 Neut # (Auto) 6.2 Lymph # (Auto) 1.5 Calhoun # (Auto) 1.3 H Eos # (Auto) 1.3 H Baso # (Auto) 0.1 Puncture Site R brac pCO2 44 pO2 119 H HCO3 30.1 H ABG pH 7.46 H ABG Total CO2 32.7 H ABG O2 Saturation 99.1 H ABG Base Excess 6.6 H Jimenez Test Na ABG Potassium 3.2 L A-a O2 Difference 183.0 Respiratory Index 1.5 Sodium 141.0 Chloride 107.0 Glucose 164 H Lactate 0.8 Vent Mode Prvc Mechanical Rate 18 FiO2 50.0 Tidal Volume 450 PEEP 5 Potassium Carbon Dioxide Anion Gap BUN Creatinine Est GFR ( Amer) Est GFR (Non-Af Amer) POC Glucose (mg/dL) 199 H Random Glucose Calcium Phosphorus Magnesium Total Bilirubin AST ALT Alkaline Phosphatase Total Protein Albumin Globulin Albumin/Globulin Ratio Arterial Blood Potassium 3.2 L 10/10/18 05:20 WBC RBC Hgb Hct MCV MCH MCHC RDW Plt Count MPV Neut % (Auto) Lymph % (Auto) Calhoun % (Auto) Eos % (Auto) Baso % (Auto) Neut # (Auto) Lymph # (Auto) Calhoun # (Auto) Eos # (Auto) Baso # (Auto) Puncture Site pCO2 pO2 HCO3 ABG pH ABG Total CO2 ABG O2 Saturation ABG Base Excess Jimenez Test ABG Potassium A-a O2 Difference Respiratory Index Sodium 139 Chloride 100 Glucose Lactate Vent Mode Mechanical Rate FiO2 Tidal Volume PEEP Potassium 3.5 L Carbon Dioxide 34 H Anion Gap 9 L BUN 19 H Creatinine 2.8 H Est GFR ( Amer) 20 Est GFR (Non-Af Amer) 17 POC Glucose (mg/dL) Random Glucose 179 H Calcium 7.4 L Phosphorus 3.4 Magnesium 1.8 Total Bilirubin 0.3 AST 38 H D ALT 39 Alkaline Phosphatase 124 Total Protein 5.7 L Albumin 3.0 L Globulin 2.7 Albumin/Globulin Ratio 1.1 Arterial Blood Potassium Radiology Impressions: Radiology Impressions Chest X-Ray 10/09/18 06:00 Impression: Lines and tubes in stable position. Moderate venous congestion. Bilateral hilar prominence. Enlarged ectatic aorta. Cardiomegaly. Chest X-Ray 10/10/18 07:00 IMPRESSION: Borderline patchy atelectasis or infiltrate right infrahilar region. Tubes and catheters unchanged in position. Cardiac silhouette remains prominent appearing without pulmonary vascular congestion. Fingerstick Blood Sugar Results: 199 Assessment/Plan - Assessment and Plan (Free Text) Assessment: 72 yo female w/ PMHx of CKD 5, CHF, CAD post stent, pituitary adenoma, DM2, HTN admitted for cardiac arrest during AVF placement and catheter on 10/05. Patient was intubated by anaesthesia team. Neuro responsive to some voice commands (ex: open/close eyes) titrate propofol as needed CT head 10/06: right sphenoid sinus mucosal thickening. MRI recommended by radiologist for better imaging. Dr. Yost, neuro, suggests post hypoperfusion syndrome and added keppra. Will continue to appreciate recs. Pending bedside EEG results. Pulm Daily CXR with consistent pulmonary vascular congestion and cardiomegaly CPAP this morning but will resume PRVC. Patient s/p code blue in OR on 10/05, will only attempt extubation after the permacath insertion 10/11 maintain spo2> 92% CV s/p cardiac arrest EKG showed sinus bradycardia with first degree heart block. Per Dr. Wagoner, unlikely primary cardiac event due to normal stress test and normal EF. Trops negative x 3. Aspirin, hydralazine, and crestor daily s/p Code Freeze, initiated at 4:35 pm 10/05 Dr. Wagoner, cardio, following. Will continue to appreciate recs. Endo Pt with history of pituitary adenoma Continue with PO hydrocortisone, Synthroid, and Levemir Pt with DM. Increased detemir from 20 u sq to 25 u sq GI No active issues Protonix Renal Phoslo d/abhishek 10/08 Continue with EPO and Ferrlicet, and MWF dialysis Dr. Segundo, nephro, following. Will appreciate further recs. ID Tylenol PRN for fever ordered 10/08: Urinalysis positive for leuk est and many WBC +MRSA nares 09/29, s/p vanco x 1 on 10/07, can consider mupirocin for the nares. On contact precautions. Patient on zosyn 2.25g q8h since 10/06 New 10/07 trachasp grew staph aureus -> vancomycin 1g IV x 1 will d/c R femoral TLC today, 10/09; been present for > 24h DVT ppx: heparin 5000 u sq q12h GI ppx: Protonix 40 mg IV daily case discussed with Dr. Michoacano Bowden PGY1 <Eliseo Ríos S - Last Filed: 10/10/18 16:21> CCU Subjective - Physician Review Critical Care Time Spent (in minutes): 40 CCU Objective - Vital Signs / Intake & Output Vital Signs (Last 4 hours): Vital Signs Pulse Resp BP Pulse Ox 10/10/18 14:00 60 20 99 10/10/18 13:03 61 15 110/82 95 10/10/18 13:00 58 L 14 100 Intake and Output (Last 8hrs): Intake & Output 10/10/18 10/10/18 10/10/18 06:59 14:59 22:59 Intake Total 534.9 657.2 Output Total 0 0 Balance 534.9 657.2 Weight 211 lb 10.3 oz Intake: IV 51 74 Intake, IV Amount 103.9 163.2 Right Distal Port Femoral 50 Right Medial Port Femoral 100 Right Proximal Port 53.9 63.2 Femoral Oral 180 Tube Feeding 320 240 Other 60 Output: Urine 0 0 Urine, Voided 0 0 Other: # Voids Urine, Voided 0 # Bowel Movements 0 0 - Medications Active Medications: Active Medications Generic Name Dose Route Start Last Admin Trade Name Freq PRN Reason Stop Dose Admin Acetaminophen 650 mg 09/29/18 08:30 10/06/18 11:15 Tylenol 325mg Tab PO 650 mg Q6H PRN Administration Pain, Mild (1-3) Acetaminophen 650 mg 10/08/18 10:08 10/09/18 09:59 Tylenol 325mg Tab PO 650 mg Q6 PRN Administration pain+fever Aspirin 81 mg 10/08/18 10:00 10/10/18 10:21 Aspirin Chewable PO 81 mg DAILY JOCELYN Administration Carvedilol 3.125 mg 10/08/18 10:00 10/10/18 10:20 Coreg PO 3.125 mg BID JOCELYN Administration Epoetin Dedrick 10,000 unit 10/04/18 10:00 10/09/18 14:27 Procrit IV 10,000 unit TTS JOCELYN Administration Heparin Sodium (Porcine) 5,000 units 09/29/18 10:00 10/10/18 10:21 Heparin SC 5,000 units Q12 JOCELYN Administration Hydralazine HCl 25 mg 10/08/18 10:46 Apresoline PO BID JOCELYN Hydrocortisone 5 mg 09/29/18 10:00 10/10/18 10:21 Cortef PO 5 mg DAILY JOCELYN Administration Ferric Sodium Gluconate 110 mls @ 110 mls/hr 10/06/18 10:00 10/10/18 10:20 Complex 125 mg/ Sodium IVPB 10/14/18 10:01 110 mls/hr Chloride DAILY JOCELYN Administration Propofol 1,000 mg in 100 mls @ 2.735 mls/hr 10/06/18 00:22 10/10/18 08:43 Diprivan IV 15 mcg/kg/min .Q24H PRN 8.206 mls/hr TITRATE PER MD ORDER Titration Protocol 5 MCG/KG/MIN Piperacillin Sod/Tazobactam Sod 2.25 gm in 50 mls @ 100 mls/hr 10/06/18 14:00 10/10/18 14:44 Zosyn 2.25 Gm Iv Premix IVPB 100 mls/hr Q8 JOCELYN Administration Protocol Potassium Phosphate 40 mmole/ 513.3333 mls @ 42.5 mls/hr 10/10/18 08:00 10/10/18 08:45 Sodium Chloride IVPB 10/10/18 20:04 Not Given ONCE ONE Insulin Detemir 25 unit 10/08/18 22:00 10/09/18 21:32 Levemir SC 25 u HS JOCELYN Administration Insulin Human Regular 0 unit 10/06/18 12:00 10/10/18 12:03 Novolin R SC 1 u Q6H JOCELYN Administration Protocol Levetiracetam 750 mg 10/08/18 10:00 10/10/18 10:31 Keppra PO 750 mg BID JOCELYN Administration Levothyroxine Sodium 50 mcg 09/29/18 08:00 10/10/18 05:21 Synthroid PO 50 mcg 0600 JOCELYN Administration Pantoprazole Sodium 40 mg 10/09/18 06:00 10/10/18 05:21 Protonix Susp PO 40 mg 0600 JOCELYN Administration Propofol 100 mg 10/05/18 18:00 10/06/18 17:21 Diprivan IV 100 mg TITR JOCELYN Administration Rosuvastatin Calcium 10 mg 09/30/18 22:00 10/09/18 21:33 Crestor PO 10 mg HS JOCELYN Administration - Patient Studies Lab Studies: Microbiology Studies 10/07/18 20:00 Gram Stain - Final Trachasp Sputum Culture - Final Methicillin Resistant S Aureus 10/07/18 20:00 Blood Culture - Preliminary Blood-Venous NO GROWTH AFTER 48 HOURS 10/07/18 20:20 Blood Culture - Preliminary Blood-Venous NO GROWTH AFTER 48 HOURS Lab Studies 10/10/18 10/10/18 10/10/18 Range/Units 11:35 05:20 05:20 WBC 10.4 (4.8-10.8) K/uL RBC 3.06 L (3.80-5.20) Mil/uL Hgb 8.2 L (11.0-16.0) g/dL Hct 26.2 L (34.0-47.0) % MCV 85.6 (81.0-99.0) fL MCH 27.0 (27.0-31.0) pg MCHC 31.5 L (33.0-37.0) g/dL RDW 14.9 H (11.5-14.5) % Plt Count 153 (130-400) K/uL MPV 9.7 (7.2-11.7) fL Neut % (Auto) 59.6 (50.0-75.0) % Lymph % (Auto) 14.4 L (20.0-40.0) % Calhoun % (Auto) 12.4 H (0.0-10.0) % Eos % (Auto) 13.0 H (0.0-4.0) % Baso % (Auto) 0.6 (0.0-2.0) % Neut # (Auto) 6.2 (1.8-7.0) K/uL Lymph # (Auto) 1.5 (1.0-4.3) K/uL Calhoun # (Auto) 1.3 H (0.0-0.8) K/uL Eos # (Auto) 1.3 H (0.0-0.7) K/uL Baso # (Auto) 0.1 (0.0-0.2) K/uL Puncture Site pCO2 (35-45) mm/Hg pO2 (80-100) mm/Hg HCO3 (21-28) mmol/L ABG pH (7.35-7.45) ABG Total CO2 (22-28) mmol/L ABG O2 Saturation (95-98) % ABG Base Excess (-2.0-3.0) mmol/L Jimenez Test ABG Potassium (3.6-5.2) mmol/L A-a O2 Difference mm/Hg Respiratory Index Sodium 139 (132-148) mmol/l Chloride 100 (98-107) mmol/L Glucose (65-105) mg/dl Lactate (0.7-2.1) mmol/L Vent Mode Mechanical Rate FiO2 % Tidal Volume PEEP Potassium 3.5 L (3.6-5.2) mmol/L Carbon Dioxide 34 H (22-30) mmol/L Anion Gap 9 L (10-20) BUN 19 H (7-17) mg/dL Creatinine 2.8 H (0.7-1.2) mg/dL Est GFR ( Amer) 20 Est GFR (Non-Af Amer) 17 POC Glucose (mg/dL) 192 H (65-110) mg/dL Random Glucose 179 H (65-105) mg/dL Calcium 7.4 L (8.6-10.4) mg/dl Phosphorus 3.4 (2.5-4.5) mg/dL Magnesium 1.8 (1.6-2.3) mg/dL Total Bilirubin 0.3 (0.2-1.3) mg/dL AST 38 H D (14-36) U/L ALT 39 (9-52) U/L Alkaline Phosphatase 124 (38-126) U/L Total Protein 5.7 L (6.3-8.3) g/dL Albumin 3.0 L (3.5-5.0) g/dL Globulin 2.7 (2.2-3.9) gm/dL Albumin/Globulin Ratio 1.1 (1.0-2.1) Arterial Blood Potassium (3.6-5.2) mmol/L 10/10/18 10/10/18 10/09/18 Range/Units 05:18 05:04 23:45 WBC (4.8-10.8) K/uL RBC (3.80-5.20) Mil/uL Hgb (11.0-16.0) g/dL Hct (34.0-47.0) % MCV (81.0-99.0) fL MCH (27.0-31.0) pg MCHC (33.0-37.0) g/dL RDW (11.5-14.5) % Plt Count (130-400) K/uL MPV (7.2-11.7) fL Neut % (Auto) (50.0-75.0) % Lymph % (Auto) (20.0-40.0) % Calhoun % (Auto) (0.0-10.0) % Eos % (Auto) (0.0-4.0) % Baso % (Auto) (0.0-2.0) % Neut # (Auto) (1.8-7.0) K/uL Lymph # (Auto) (1.0-4.3) K/uL Calhoun # (Auto) (0.0-0.8) K/uL Eos # (Auto) (0.0-0.7) K/uL Baso # (Auto) (0.0-0.2) K/uL Puncture Site R brac pCO2 44 (35-45) mm/Hg pO2 119 H (80-100) mm/Hg HCO3 30.1 H (21-28) mmol/L ABG pH 7.46 H (7.35-7.45) ABG Total CO2 32.7 H (22-28) mmol/L ABG O2 Saturation 99.1 H (95-98) % ABG Base Excess 6.6 H (-2.0-3.0) mmol/L Jimenez Test Na ABG Potassium 3.2 L (3.6-5.2) mmol/L A-a O2 Difference 183.0 mm/Hg Respiratory Index 1.5 Sodium 141.0 (132-148) mmol/l Chloride 107.0 (98-107) mmol/L Glucose 164 H (65-105) mg/dl Lactate 0.8 (0.7-2.1) mmol/L Vent Mode Prvc Mechanical Rate 18 FiO2 50.0 % Tidal Volume 450 PEEP 5 Potassium (3.6-5.2) mmol/L Carbon Dioxide (22-30) mmol/L Anion Gap (10-20) BUN (7-17) mg/dL Creatinine (0.7-1.2) mg/dL Est GFR ( Amer) Est GFR (Non-Af Amer) POC Glucose (mg/dL) 199 H 203 H (65-110) mg/dL Random Glucose (65-105) mg/dL Calcium (8.6-10.4) mg/dl Phosphorus (2.5-4.5) mg/dL Magnesium (1.6-2.3) mg/dL Total Bilirubin (0.2-1.3) mg/dL AST (14-36) U/L ALT (9-52) U/L Alkaline Phosphatase (38-126) U/L Total Protein (6.3-8.3) g/dL Albumin (3.5-5.0) g/dL Globulin (2.2-3.9) gm/dL Albumin/Globulin Ratio (1.0-2.1) Arterial Blood Potassium 3.2 L (3.6-5.2) mmol/L 10/09/18 Range/Units 17:41 WBC (4.8-10.8) K/uL RBC (3.80-5.20) Mil/uL Hgb (11.0-16.0) g/dL Hct (34.0-47.0) % MCV (81.0-99.0) fL MCH (27.0-31.0) pg MCHC (33.0-37.0) g/dL RDW (11.5-14.5) % Plt Count (130-400) K/uL MPV (7.2-11.7) fL Neut % (Auto) (50.0-75.0) % Lymph % (Auto) (20.0-40.0) % Calhoun % (Auto) (0.0-10.0) % Eos % (Auto) (0.0-4.0) % Baso % (Auto) (0.0-2.0) % Neut # (Auto) (1.8-7.0) K/uL Lymph # (Auto) (1.0-4.3) K/uL Calhoun # (Auto) (0.0-0.8) K/uL Eos # (Auto) (0.0-0.7) K/uL Baso # (Auto) (0.0-0.2) K/uL Puncture Site pCO2 (35-45) mm/Hg pO2 (80-100) mm/Hg HCO3 (21-28) mmol/L ABG pH (7.35-7.45) ABG Total CO2 (22-28) mmol/L ABG O2 Saturation (95-98) % ABG Base Excess (-2.0-3.0) mmol/L Jimenez Test ABG Potassium (3.6-5.2) mmol/L A-a O2 Difference mm/Hg Respiratory Index Sodium (132-148) mmol/l Chloride (98-107) mmol/L Glucose (65-105) mg/dl Lactate (0.7-2.1) mmol/L Vent Mode Mechanical Rate FiO2 % Tidal Volume PEEP Potassium (3.6-5.2) mmol/L Carbon Dioxide (22-30) mmol/L Anion Gap (10-20) BUN (7-17) mg/dL Creatinine (0.7-1.2) mg/dL Est GFR ( Amer) Est GFR (Non-Af Amer) POC Glucose (mg/dL) 178 H (65-110) mg/dL Random Glucose (65-105) mg/dL Calcium (8.6-10.4) mg/dl Phosphorus (2.5-4.5) mg/dL Magnesium (1.6-2.3) mg/dL Total Bilirubin (0.2-1.3) mg/dL AST (14-36) U/L ALT (9-52) U/L Alkaline Phosphatase (38-126) U/L Total Protein (6.3-8.3) g/dL Albumin (3.5-5.0) g/dL Globulin (2.2-3.9) gm/dL Albumin/Globulin Ratio (1.0-2.1) Arterial Blood Potassium (3.6-5.2) mmol/L Laboratory Results - last 24 hr 10/09/18 10/09/18 10/10/18 17:41 23:45 05:04 WBC RBC Hgb Hct MCV MCH MCHC RDW Plt Count MPV Neut % (Auto) Lymph % (Auto) Calhoun % (Auto) Eos % (Auto) Baso % (Auto) Neut # (Auto) Lymph # (Auto) Calhoun # (Auto) Eos # (Auto) Baso # (Auto) Puncture Site pCO2 pO2 HCO3 ABG pH ABG Total CO2 ABG O2 Saturation ABG Base Excess Jimenez Test ABG Potassium A-a O2 Difference Respiratory Index Sodium Chloride Glucose Lactate Vent Mode Mechanical Rate FiO2 Tidal Volume PEEP Potassium Carbon Dioxide Anion Gap BUN Creatinine Est GFR ( Amer) Est GFR (Non-Af Amer) POC Glucose (mg/dL) 178 H 203 H 199 H Random Glucose Calcium Phosphorus Magnesium Total Bilirubin AST ALT Alkaline Phosphatase Total Protein Albumin Globulin Albumin/Globulin Ratio Arterial Blood Potassium 10/10/18 10/10/18 10/10/18 05:18 05:20 05:20 WBC 10.4 RBC 3.06 L Hgb 8.2 L Hct 26.2 L MCV 85.6 MCH 27.0 MCHC 31.5 L RDW 14.9 H Plt Count 153 MPV 9.7 Neut % (Auto) 59.6 Lymph % (Auto) 14.4 L Calhoun % (Auto) 12.4 H Eos % (Auto) 13.0 H Baso % (Auto) 0.6 Neut # (Auto) 6.2 Lymph # (Auto) 1.5 Calhoun # (Auto) 1.3 H Eos # (Auto) 1.3 H Baso # (Auto) 0.1 Puncture Site R brac pCO2 44 pO2 119 H HCO3 30.1 H ABG pH 7.46 H ABG Total CO2 32.7 H ABG O2 Saturation 99.1 H ABG Base Excess 6.6 H Jimenez Test Na ABG Potassium 3.2 L A-a O2 Difference 183.0 Respiratory Index 1.5 Sodium 141.0 139 Chloride 107.0 100 Glucose 164 H Lactate 0.8 Vent Mode Prvc Mechanical Rate 18 FiO2 50.0 Tidal Volume 450 PEEP 5 Potassium 3.5 L Carbon Dioxide 34 H Anion Gap 9 L BUN 19 H Creatinine 2.8 H Est GFR ( Amer) 20 Est GFR (Non-Af Amer) 17 POC Glucose (mg/dL) Random Glucose 179 H Calcium 7.4 L Phosphorus 3.4 Magnesium 1.8 Total Bilirubin 0.3 AST 38 H D ALT 39 Alkaline Phosphatase 124 Total Protein 5.7 L Albumin 3.0 L Globulin 2.7 Albumin/Globulin Ratio 1.1 Arterial Blood Potassium 3.2 L 10/10/18 11:35 WBC RBC Hgb Hct MCV MCH MCHC RDW Plt Count MPV Neut % (Auto) Lymph % (Auto) Calhoun % (Auto) Eos % (Auto) Baso % (Auto) Neut # (Auto) Lymph # (Auto) Calhoun # (Auto) Eos # (Auto) Baso # (Auto) Puncture Site pCO2 pO2 HCO3 ABG pH ABG Total CO2 ABG O2 Saturation ABG Base Excess Jimenez Test ABG Potassium A-a O2 Difference Respiratory Index Sodium Chloride Glucose Lactate Vent Mode Mechanical Rate FiO2 Tidal Volume PEEP Potassium Carbon Dioxide Anion Gap BUN Creatinine Est GFR ( Amer) Est GFR (Non-Af Amer) POC Glucose (mg/dL) 192 H Random Glucose Calcium Phosphorus Magnesium Total Bilirubin AST ALT Alkaline Phosphatase Total Protein Albumin Globulin Albumin/Globulin Ratio Arterial Blood Potassium Radiology Impressions: Radiology Impressions Chest X-Ray 10/10/18 07:00 IMPRESSION: Borderline patchy atelectasis or infiltrate right infrahilar region. Tubes and catheters unchanged in position. Cardiac silhouette remains prominent appearing without pulmonary vascular congestion. Attending/Attestation - Attestation I have personally seen and examined this patient.: Yes I have fully participated in the care of the patient.: Yes I have reviewed all pertinent clinical information: Yes Notes (Text): 10/10/18 16:20 Patient seen and examined in the intensive care unit. Eyes open but does not follow commands Remained intubated on ventilatory support tolerating CPAP 4 permacath insertion tomorrow Continue present treatment
[2018-10-10] MEDS: Ferric Sodium Gluconat Complex 125 MG in Sodium Chloride 0.9% 100 ML IVPB SCH (10:20)
--- NOTE | 2018-10-10 10:25 | EEG ---
DATE: 10/08/2018 This is a 16-channel electroencephalogram of an lethargic adult with sedation. The study was performed in the unit. The resting electroencephalogram shows a diffuse 20 to 30 microvolts diffuse delta activities seen in bilateral cortical region. Intermittent some move artifact contaminated the background rhythm. Theta activities continuously noted from the beginning. There is an intermittent movement artifact that contaminated the background rhythm. There is high amplitude long duration complex noted consistent with N2 sleep. Some movement and muscle artifact contaminated the rhythm intermittently throughout the record. The photic stimulation did not evoke driving response noted at 2 to 20 Hz. IMPRESSION: This is an abnormal electroencephalogram because of persistent slowing throughout the record suggestive of bilateral cerebral dysfunction. This is probably secondary to metabolic vascular degenerative process. During the study, neither electroencephalographic paroxysmal activities nor focal slowing noted. Blu Yost MD [facility]
[2018-10-10] MEDS: levETIRAcetam 100 mg/ml (5ml) Oral Syringe PO SCH ×2 (10:31→17:16)
--- NOTE | 2018-10-10 12:49 | CP.PCM.PN ---
Subjective - Date & Time of Evaluation Date of Evaluation: 10/10/18 Time of Evaluation: 12:46 - Subjective Subjective: remains vented, on sedation on NGT feeds PICC attempted this AM; cancelled due to need for permcath had extra dialysis sessions for CHF Hg low- on EPO, IV Fe Objective - Vital Signs/Intake and Output Vital Signs (last 24 hours): Temp Pulse Resp BP Pulse Ox 99.8 F H 68 12 141/59 L 99 10/10/18 08:00 10/10/18 11:02 10/10/18 11:02 10/10/18 11:02 10/10/18 11:02 Intake and Output: 10/10/18 10/10/18 06:59 18:59 Intake Total 912.5 522.6 Output Total 0 0 Balance 912.5 522.6 - Medications Medications: Current Medications Acetaminophen (Tylenol 325mg Tab) 650 mg PO Q6H PRN PRN Reason: Pain, Mild (1-3) Last Admin: 10/06/18 11:15 Dose: 650 mg Acetaminophen (Tylenol 325mg Tab) 650 mg PO Q6 PRN PRN Reason: pain+fever Last Admin: 10/09/18 09:59 Dose: 650 mg Aspirin (Aspirin Chewable) 81 mg PO DAILY [facility] Last Admin: 10/10/18 10:21 Dose: 81 mg Carvedilol (Coreg) 3.125 mg PO BID [facility] Last Admin: 10/10/18 10:20 Dose: 3.125 mg Epoetin Dedrick (Procrit) 10,000 unit IV TTS [facility] Last Admin: 10/09/18 14:27 Dose: 10,000 unit Heparin Sodium (Porcine) (Heparin) 5,000 units SC Q12 [facility] Last Admin: 10/10/18 10:21 Dose: 5,000 units Hydralazine HCl (Apresoline) 25 mg PO BID [facility] Hydrocortisone (Cortef) 5 mg PO DAILY [facility] Last Admin: 10/10/18 10:21 Dose: 5 mg Ferric Sodium Gluconate Complex 125 mg/ Sodium Chloride 110 mls @ 110 mls/hr IVPB DAILY [facility] Stop: 10/14/18 10:01 Last Admin: 10/10/18 10:20 Dose: 110 mls/hr Propofol (Diprivan) 1,000 mg in 100 mls @ 2.735 mls/hr IV .Q24H PRN; Protocol PRN Reason: TITRATE PER MD ORDER Last Titration: 10/10/18 08:43 Dose: 15 mcg/kg/min, 8.206 mls/hr Piperacillin Sod/Tazobactam Sod (Zosyn 2.25 Gm Iv Premix) 2.25 gm in 50 mls @ 100 mls/hr IVPB Q8 [facility]; Protocol Last Admin: 10/10/18 05:21 Dose: 100 mls/hr Potassium Phosphate 40 mmole/ (Sodium Chloride) 513.3333 mls @ 42.5 mls/hr IVPB ONCE ONE Stop: 10/10/18 20:04 Last Admin: 10/10/18 08:45 Dose: Not Given Insulin Detemir (Levemir) 25 unit SC [facility] Last Admin: 10/09/18 21:32 Dose: 25 u Insulin Human Regular (Novolin R) 0 unit SC Q6H [facility]; Protocol Last Admin: 10/10/18 12:03 Dose: 1 u Levetiracetam (Keppra) 750 mg PO BID [facility] Last Admin: 10/10/18 10:31 Dose: 750 mg Levothyroxine Sodium (Synthroid) 50 mcg PO 0600 [facility] Last Admin: 10/10/18 05:21 Dose: 50 mcg Pantoprazole Sodium (Protonix Susp) 40 mg PO 0600 [facility] Last Admin: 10/10/18 05:21 Dose: 40 mg Propofol (Diprivan) 100 mg IV TITR [facility] Last Admin: 10/06/18 17:21 Dose: 100 mg Rosuvastatin Calcium (Crestor) 10 mg PO [facility] Last Admin: 10/09/18 21:33 Dose: 10 mg - Labs Labs: 10/10/18 05:20 10/10/18 05:20 PT 13.9 SECONDS (9.7-12.2) H 10/06/18 21:04 INR 1.3 10/06/18 21:04 APTT 45 SECONDS (21-34) H D 10/06/18 21:04 - Constitutional Appears: Confused, Chronically Ill - Head Exam Head Exam: ATRAUMATIC, NORMAL INSPECTION - Neck Exam Neck Exam: Normal Inspection. absent: Tenderness - Respiratory Exam Respiratory Exam: Decreased Breath Sounds, NORMAL BREATHING PATTERN - Cardiovascular Exam Cardiovascular Exam: REGULAR RHYTHM, +S1 - GI/Abdominal Exam GI & Abdominal Exam: Soft. absent: Tenderness - Extremities Exam Extremities Exam: Normal Inspection. absent: Tenderness - Neurological Exam Neurological Exam: Altered - Skin Skin Exam: Dry, Warm Assessment and Plan (1) ESRD (end stage renal disease) Status: Acute (2) Diabetic nephropathy associated with type 2 diabetes mellitus Status: Acute (3) CAD (coronary artery disease) Status: Acute (4) HTN (hypertension) Status: Acute - Assessment and Plan (Free Text) Plan: Dialysis in AM NGT feeds Await permcath placement AV access when more stable IV Fe, EPO follow up sarites
--- NOTE | 2018-10-10 15:23 | CP.PCM.PN ---
<Yecenia Worley - Last Filed: 10/10/18 15:19> Subjective - Date & Time of Evaluation Date of Evaluation: 10/10/18 Time of Evaluation: 15:19 - Subjective Subjective: PGY3 progress note for cardiology Pt seen and examined at bedside this am. Daughter was by bedside. Pt is sleeping comfortably. ROS unobtainable due to intubation. Objective - Vital Signs/Intake and Output Vital Signs (last 24 hours): Temp Pulse Resp BP Pulse Ox 98.8 F 60 20 110/82 99 10/10/18 12:00 10/10/18 14:00 10/10/18 14:00 10/10/18 13:03 10/10/18 14:00 Intake and Output: 10/10/18 10/10/18 06:59 18:59 Intake Total 912.5 657.2 Output Total 0 0 Balance 912.5 657.2 - Medications Medications: Current Medications Acetaminophen (Tylenol 325mg Tab) 650 mg PO Q6H PRN PRN Reason: Pain, Mild (1-3) Last Admin: 10/06/18 11:15 Dose: 650 mg Acetaminophen (Tylenol 325mg Tab) 650 mg PO Q6 PRN PRN Reason: pain+fever Last Admin: 10/09/18 09:59 Dose: 650 mg Aspirin (Aspirin Chewable) 81 mg PO DAILY [facility] Last Admin: 10/10/18 10:21 Dose: 81 mg Carvedilol (Coreg) 3.125 mg PO BID [facility] Last Admin: 10/10/18 10:20 Dose: 3.125 mg Epoetin Dedrick (Procrit) 10,000 unit IV TTS [facility] Last Admin: 10/09/18 14:27 Dose: 10,000 unit Heparin Sodium (Porcine) (Heparin) 5,000 units SC Q12 [facility] Last Admin: 10/10/18 10:21 Dose: 5,000 units Hydralazine HCl (Apresoline) 25 mg PO BID [facility] Hydrocortisone (Cortef) 5 mg PO DAILY [facility] Last Admin: 10/10/18 10:21 Dose: 5 mg Ferric Sodium Gluconate Complex 125 mg/ Sodium Chloride 110 mls @ 110 mls/hr IVPB DAILY [facility] Stop: 10/14/18 10:01 Last Admin: 10/10/18 10:20 Dose: 110 mls/hr Propofol (Diprivan) 1,000 mg in 100 mls @ 2.735 mls/hr IV .Q24H PRN; Protocol PRN Reason: TITRATE PER MD ORDER Last Titration: 10/10/18 08:43 Dose: 15 mcg/kg/min, 8.206 mls/hr Piperacillin Sod/Tazobactam Sod (Zosyn 2.25 Gm Iv Premix) 2.25 gm in 50 mls @ 100 mls/hr IVPB Q8 [facility]; Protocol Last Admin: 10/10/18 14:44 Dose: 100 mls/hr Potassium Phosphate 40 mmole/ (Sodium Chloride) 513.3333 mls @ 42.5 mls/hr IVPB ONCE ONE Stop: 10/10/18 20:04 Last Admin: 10/10/18 08:45 Dose: Not Given Insulin Detemir (Levemir) [address] [facility] Last Admin: 10/09/18 21:32 Dose: 25 u Insulin Human Regular (Novolin R) 0 unit SC Q6H [facility]; Protocol Last Admin: 10/10/18 12:03 Dose: 1 u Levetiracetam (Keppra) 750 mg PO BID [facility] Last Admin: 10/10/18 10:31 Dose: 750 mg Levothyroxine Sodium (Synthroid) 50 mcg PO 0600 [facility] Last Admin: 10/10/18 05:21 Dose: 50 mcg Pantoprazole Sodium (Protonix Susp) 40 mg PO 0600 [facility] Last Admin: 10/10/18 05:21 Dose: 40 mg Propofol (Diprivan) 100 mg IV TITR [facility] Last Admin: 10/06/18 17:21 Dose: 100 mg Rosuvastatin Calcium (Crestor) [address] [facility] Last Admin: 10/09/18 21:33 Dose: 10 mg - Labs Labs: 10/10/18 05:20 10/10/18 05:20 PT 13.9 SECONDS (9.7-12.2) H 10/06/18 21:04 INR 1.3 10/06/18 21:04 APTT 45 SECONDS (21-34) H D 10/06/18 21:04 - Constitutional Appears: Non-toxic, No Acute Distress - Head Exam Head Exam: ATRAUMATIC, NORMOCEPHALIC - ENT Exam ENT Exam: Mucous Membranes Moist - Respiratory Exam Respiratory Exam: Rhonchi. absent: Rales, Wheezes - Cardiovascular Exam Cardiovascular Exam: REGULAR RHYTHM, +S1, +S2 - GI/Abdominal Exam GI & Abdominal Exam: Soft, Normal Bowel Sounds. absent: Firm, Guarding, Rigid, Tenderness - Extremities Exam Extremities Exam: absent: Pedal Edema, Tenderness - Neurological Exam Neurological Exam: absent: Alert, Awake, Oriented x3 - Psychiatric Exam Psychiatric exam: absent: Normal Affect, Normal Mood - Skin Skin Exam: Dry, Intact, Normal Color, Warm Assessment and Plan - Assessment and Plan (Free Text) Assessment: 72 year old female with past medical history of CAD, CHF, HTN, HLD is being seen s/p respiratory arrest during AV fistula placement surgery. Respiratory arrest - Currently intubated. Management per primary care team HTN - Continue coreg and hydralazine HLD - Continue statin therapy with crestor CAD - Continue aspirin and statin therapy CKD - Plan for permcath placement with surgery tomorrow. Pt is cleared for pro cedure by cardio standpoint. Case will be discussed with attending, Dr. Wagoner <Jimmy Wagoner - Last Filed: 10/10/18 22:16> Objective - Vital Signs/Intake and Output Vital Signs (last 24 hours): Temp Pulse Resp BP Pulse Ox 98.8 F 53 L 13 144/45 L 100 10/10/18 20:00 10/10/18 21:03 10/10/18 21:03 10/10/18 20:03 10/10/18 21:03 Intake and Output: 10/10/18 10/11/18 18:59 06:59 Intake Total 1410.0 171.7 Output Total 0 Balance 1410.0 171.7 - Medications Medications: Current Medications Acetaminophen (Tylenol 325mg Tab) 650 mg PO Q6H PRN PRN Reason: Pain, Mild (1-3) Last Admin: 10/06/18 11:15 Dose: 650 mg Acetaminophen (Tylenol 325mg Tab) 650 mg PO Q6 PRN PRN Reason: pain+fever Last Admin: 10/09/18 09:59 Dose: 650 mg Aspirin (Aspirin Chewable) 81 mg PO DAILY [facility] Last Admin: 10/10/18 10:21 Dose: 81 mg Carvedilol (Coreg) 3.125 mg PO BID [facility] Last Admin: 10/10/18 17:23 Dose: Not Given Epoetin Dedrick (Procrit) 10,000 unit IV TTS [facility] Last Admin: 10/09/18 14:27 Dose: 10,000 unit Heparin Sodium (Porcine) (Heparin) 5,000 units SC Q12 [facility] Last Admin: 10/10/18 10:21 Dose: 5,000 units Hydralazine HCl (Apresoline) 25 mg PO BID [facility] Hydrocortisone (Cortef) 5 mg PO DAILY [facility] Last Admin: 10/10/18 10:21 Dose: 5 mg Ferric Sodium Gluconate Complex 125 mg/ Sodium Chloride 110 mls @ 110 mls/hr IVPB DAILY [facility] Stop: 10/14/18 10:01 Last Admin: 10/10/18 10:20 Dose: 110 mls/hr Propofol (Diprivan) 1,000 mg in 100 mls @ 2.735 mls/hr IV .Q24H PRN; Protocol PRN Reason: TITRATE PER MD ORDER Last Titration: 10/10/18 18:34 Dose: 25 mcg/kg/min, 13.676 mls/hr Piperacillin Sod/Tazobactam Sod (Zosyn 2.25 Gm Iv Premix) 2.25 gm in 50 mls @ 100 mls/hr IVPB Q8 [facility]; Protocol Last Admin: 10/10/18 21:31 Dose: 100 mls/hr Insulin Detemir (Levemir) [address] [facility] Last Admin: 10/10/18 21:30 Dose: 25 u Insulin Human Regular (Novolin R) 0 unit SC Q6H [facility]; Protocol Last Admin: 10/10/18 18:42 Dose: 3 u Levetiracetam (Keppra) 750 mg PO BID [facility] Last Admin: 10/10/18 17:16 Dose: 750 mg Levothyroxine Sodium (Synthroid) 50 mcg PO 0600 [facility] Last Admin: 10/10/18 05:21 Dose: 50 mcg Pantoprazole Sodium (Protonix Susp) 40 mg PO 0600 [facility] Last Admin: 10/10/18 05:21 Dose: 40 mg Rosuvastatin Calcium (Crestor) 10 mg PO HS [facility] Last Admin: 10/10/18 21:30 Dose: 10 mg - Labs Labs: 10/10/18 05:20 10/10/18 05:20 PT 13.9 SECONDS (9.7-12.2) H 10/06/18 21:04 INR 1.3 10/06/18 21:04 APTT 45 SECONDS (21-34) H D 10/06/18 21:04 Assessment and Plan - Assessment and Plan (Free Text) Assessment: Patient seen and evaluated personally by me. Plan of care d/w the medical dosimetrist and as documented
[2018-10-10] MEDS: Insulin Detemir 100 units/ml Vial (Levemir) SC SCH (21:30)
[2018-10-11] MEDS: (Novolin R) Insulin Human Regular 100 units/ml vial SC SCH ×4 (00:26→18:20)
[2018-10-11] MEDS: Propofol 10 mg/ml 1,000 MG/100 ML VIAL IV PRN ×4 (00:38→19:04)
[2018-10-11] MEDS: Pantoprazole 40 mg Susp UD PO SCH (05:09)
[2018-10-11] MEDS: Levothyroxine 50 MCG TAB PO SCH (05:09)
[2018-10-11] MEDS: Piperacill/Tazo 2.25gm in Dex 2.25 GM/50 ML BAG IVPB SCH ×3 (05:09→21:47)
[2018-10-11 06:03] LABS: ARTERIAL BLOOD GAS HCO3 27.8 mmol/L (21-28); ARTERIAL BLOOD GAS HEMOGLOBIN 7.7 g/dL (11.7-17.4); ARTERIAL BLOOD GAS O2 SAT 99.6 % (95-98); ARTERIAL BLOOD GAS PCO2 48 mm/Hg (35-45); ARTERIAL BLOOD GAS PH 7.39 (7.35-7.45); ARTERIAL BLOOD GAS PO2 142 mm/Hg (80-100); ARTERIAL BLOOD GAS TCO2 30.6 mmol/L (22-28)
[2018-10-11 06:32] LABS: BASO # 0.1 K/uL (0.0-0.2); BASO % 0.7 % (0.0-2.0); EOS # 1.6 K/uL (0.0-0.7); EOS % 18.1 % (0.0-4.0); LYMPH # 1.5 K/uL (1.0-4.3); LYMPH % 16.1 % (20.0-40.0); MEAN CELL VOLUME 86.7 fL (81.0-99.0); MEAN CORPUSCULAR HEMOGLOBIN 27.3 pg (27.0-31.0); MEAN CORPUSCULAR HGB CONC 31.5 g/dL (33.0-37.0); MONO # 1.4 K/uL (0.0-0.8); NEUT # 4.6 K/uL (1.8-7.0); NEUT % 50.1 % (50.0-75.0); NRBC % 0.1 % (0.0-2.0); RBC 2.1 Mil/uL (3.80-5.20); RED CELL DISTRIBUTION WIDTH 14.6 % (11.5-14.5); WHITE BLOOD COUNT 9.1 K/uL (4.8-10.8)
[2018-10-11 06:44] LABS: HEMOGLOBIN 5.7 g/dL (11.0-16.0)
[2018-10-11 06:54] LABS: ALBUMIN 2.9 g/dL (3.5-5.0); CALCIUM 7.5 mg/dl (8.6-10.4)
--- NOTE | 2018-10-11 06:59 | CON ---
DATE: 10/10/2018 ATTENDING PHYSICIAN: Renato Lugo REASON FOR CONSULTATION: Status post cardiorespiratory arrest and intubation. HISTORY OF PRESENT ILLNESS: The patient is a 72-year-old lady with past medical history of diabetes mellitus, hypertension, CHF, coronary artery disease, status post stent, and pituitary adenoma. The patient was admitted to ICU because of cardiopulmonary arrest. While in the OR attempting catheter replacement and AVF placement, the patient received fentanyl, then became unresponsive, had jerky movement of her extremities and the patient was intubated and given Versed and a Neurology consult was requested for possible seizures. During the episode, the patient became hypoxic and pulseless and ACLS protocol was initiated with ROSC achieved. The patient was admitted then after to ICU. The patient is now in bed, intubated, comatose with no response to verbal commands. PAST MEDICAL HISTORY: As mentioned above. SOCIAL HISTORY: Nonsmoker, ethanol or drug abuser. ALLERGIES: NO KNOWN ALLERGIC RASH. FAMILY HISTORY: Noncontributory. MEDICATIONS: Hydralazine, aspirin, carvedilol, hydrocortisone, propofol, heparin, insulin, levothyroxine, acetaminophen, and vancomycin. REVIEW OF SYSTEMS: As per H and P and ER note, reviewed. PHYSICAL EXAMINATION: VITAL SIGNS: Blood pressure 157/74, pulse 58, respirations 13, temperature afebrile, and pulse oximetry 100%. MENTAL STATUS: The patient is comatose, no response to verbal commands, blinks spontaneously, no blink to threat or loud noise. No spontaneous movement of upper or lower extremities. CRANIAL NERVES: Pupils are asymmetrical, right pupil 1.5 mm, left is 2 mm, sluggishly reactive secondary to cataract surgery in the past, probably that is the most likely reason for her asymmetrical pupil. Corneal reflex is intact. Doll's eye is absent. No facial asymmetry. The patient is intubated. 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 Lower extremities has slightly increased tone on the left more than the right side. No spontaneous movement in the upper or lower extremities. Slightly moves her lower extremities in response to noxious stimuli. Plantars are equivocal. Deep tendon reflexes, 1 in upper extremities, absent in bilateral lower extremities. DIAGNOSTIC DATA: CAT scan of the brain did not reveal acute findings, subarachnoid or subdural hematoma. LABORATORY DATA: Reviewed. IMPRESSION: Status post respiratory failure and intubation, currently comatose, on [place] coma scale 7/15. The patient's coma is most likely secondary to hypoxic encephalopathy secondary to cardiorespiratory arrest. The patient's current jerky movement of the left is most likely focal motor seizures. I have started the patient on Keppra 750 mg IV every 12 hours. Repeat CAT scan of the brain in the morning and EEG has been requested. Continue supportive care. I have also discussed the case with family member and also discussed with Dr. Wagoner. PROGNOSIS: At this point is guarded. PLAN: We will wait and observe the improvement of her coma. DVT prophylaxis. Thank you for the consultation and Dr. Yost will follow up on Monday. Dajuan Bravo MD
[2018-10-11 07:44] LABS: MEAN CELL VOLUME 86.7 fL (81.0-99.0); MEAN CORPUSCULAR HEMOGLOBIN 27.2 pg (27.0-31.0); MEAN CORPUSCULAR HGB CONC 31.4 g/dL (33.0-37.0); MEAN PLATELET VOLUME 9.8 fL (7.2-11.7); RBC 3.19 Mil/uL (3.80-5.20); RED CELL DISTRIBUTION WIDTH 14.8 % (11.5-14.5); WHITE BLOOD COUNT 7.1 K/uL (4.8-10.8)
[2018-10-11 07:47] LABS: HEMOGLOBIN 8.7 g/dL (11.0-16.0)
--- NOTE | 2018-10-11 08:29 | CP.PCM.PN ---
Subjective - Date & Time of Evaluation Date of Evaluation: 10/11/18 Time of Evaluation: 08:26 - Subjective Subjective: Remains sedated, permcath scheduled for later for dialysis today BP stable remains on vent did not follow commands earlier Objective - Vital Signs/Intake and Output Vital Signs (last 24 hours): Temp Pulse Resp BP Pulse Ox 98.7 F 58 L 13 144/52 L 99 10/11/18 04:00 10/11/18 06:02 10/11/18 06:02 10/11/18 06:02 10/11/18 06:02 Intake and Output: 10/11/18 10/11/18 06:59 18:59 Intake Total 532.7 100 Balance 532.7 100 - Medications Medications: Current Medications Acetaminophen (Tylenol 325mg Tab) 650 mg PO Q6H PRN PRN Reason: Pain, Mild (1-3) Last Admin: 10/06/18 11:15 Dose: 650 mg Acetaminophen (Tylenol 325mg Tab) 650 mg PO Q6 PRN PRN Reason: pain+fever Last Admin: 10/09/18 09:59 Dose: 650 mg Aspirin (Aspirin Chewable) 81 mg PO DAILY [facility] Last Admin: 10/10/18 10:21 Dose: 81 mg Carvedilol (Coreg) 3.125 mg PO BID [facility] Last Admin: 10/10/18 17:23 Dose: Not Given Epoetin Dedrick (Procrit) 10,000 unit IV TTS [facility] Last Admin: 10/09/18 14:27 Dose: 10,000 unit Heparin Sodium (Porcine) (Heparin) 5,000 units SC Q12 [facility] Last Admin: 10/10/18 10:21 Dose: 5,000 units Hydralazine HCl (Apresoline) 25 mg PO BID [facility] Hydrocortisone (Cortef) 5 mg PO DAILY [facility] Last Admin: 10/10/18 10:21 Dose: 5 mg Ferric Sodium Gluconate Complex 125 mg/ Sodium Chloride 110 mls @ 110 mls/hr IVPB DAILY [facility] Stop: 10/14/18 10:01 Last Admin: 10/10/18 10:20 Dose: 110 mls/hr Propofol (Diprivan) 1,000 mg in 100 mls @ 2.735 mls/hr IV .Q24H PRN; Protocol PRN Reason: TITRATE PER MD ORDER Last Admin: 10/11/18 08:08 Dose: 25 mcg/kg/min, 13.676 mls/hr Piperacillin Sod/Tazobactam Sod (Zosyn 2.25 Gm Iv Premix) 2.25 gm in 50 mls @ 100 mls/hr IVPB Q8 [facility]; Protocol Last Admin: 10/11/18 05:09 Dose: 100 mls/hr Insulin Detemir (Levemir) 25 unit SC [facility] Last Admin: 10/10/18 21:30 Dose: 25 u Insulin Human Regular (Novolin R) 0 unit SC Q6H [facility]; Protocol Last Admin: 10/11/18 05:29 Dose: 4 u Levetiracetam (Keppra) 750 mg PO BID [facility] Last Admin: 10/10/18 17:16 Dose: 750 mg Levothyroxine Sodium (Synthroid) 50 mcg PO 0600 [facility] Last Admin: 10/11/18 05:09 Dose: 50 mcg Pantoprazole Sodium (Protonix Susp) 40 mg PO 0600 [facility] Last Admin: 10/11/18 05:09 Dose: 40 mg Rosuvastatin Calcium (Crestor) 10 mg PO [facility] Last Admin: 10/10/18 21:30 Dose: 10 mg - Labs Labs: 10/11/18 07:30 10/11/18 06:26 PT 13.9 SECONDS (9.7-12.2) H 10/06/18 21:04 INR 1.3 10/06/18 21:04 APTT 45 SECONDS (21-34) H D 10/06/18 21:04 - Constitutional Appears: Non-toxic, Chronically Ill - Head Exam Head Exam: ATRAUMATIC, NORMAL INSPECTION - Neck Exam Neck Exam: Normal Inspection. absent: Tenderness - Respiratory Exam Respiratory Exam: Clear to Ausculation Bilateral, Respiratory Distress - Cardiovascular Exam Cardiovascular Exam: REGULAR RHYTHM, +S1 - GI/Abdominal Exam GI & Abdominal Exam: Soft. absent: Tenderness - Extremities Exam Extremities Exam: Normal Inspection. absent: Tenderness - Neurological Exam Neurological Exam: Altered - Skin Skin Exam: Dry, Warm Assessment and Plan (1) ESRD (end stage renal disease) Status: Acute (2) Diabetic nephropathy associated with type 2 diabetes mellitus Status: Acute (3) CAD (coronary artery disease) Status: Acute (4) HTN (hypertension) Status: Acute - Assessment and Plan (Free Text) Plan: dialysis today permcath later vent management cardiac plans
--- NOTE | 2018-10-11 08:39 | RAD ---
Chest x-ray single frontal view HISTORY: Intubated. Comparison: 10/10/2018 Findings: Lines and tubes in stable position. Moderate venous congestion. Right hilar consolidative changes. Left basilar consolidative changes with small left pleural effusion. Atherosclerotic calcification at the aortic knob. Cardiomegaly. Degenerative changes in the spine and shoulders. Impression: Lines and tubes in stable position. Moderate venous congestion. Right hilar consolidative changes. Left basilar consolidative changes with small left pleural effusion. Atherosclerotic calcification at the aortic knob. Cardiomegaly.
[2018-10-11] MEDS: levETIRAcetam 100 mg/ml (5ml) Oral Syringe PO SCH ×2 (09:38→18:19)
[2018-10-11] MEDS: Ferric Sodium Gluconat Complex 125 MG in Sodium Chloride 0.9% 100 ML IVPB SCH (09:40)
[2018-10-11] MEDS: Epoetin Alfa 10,000 unit/ml Dialysis IV SCH (10:50)
--- NOTE | 2018-10-11 11:00 | PN ---
DATE: 10/11/2018 TIME OF EVALUATION: 07:15 a.m. NEUROLOGICAL PROBLEM: Seizure secondary to hypoperfusion. PHYSICAL EXAMINATION: VITAL SIGNS: Blood pressure 144/52, mean arterial pressure of 80, respiratory rate 39 on vent, pulse rate 58. Patient under sedation, not verbally responsive. Noxious stimuli. Responsive appropriately. Moves all four extremities voluntarily. Examination is unchanged compared with the previous examination. RECOMMENDATIONS: Continue medical care as she has been getting. When medically stable, she can be weaned. Keep the mean arterial pressure around 100. Antiepileptic drug, as she has been taking, levetiracetam should be continued 750 mg twice a day at present. Patient will be followed closely with you. Blu Yost MD
[2018-10-11] MEDS ORDERED: ePHEDrine 50 mg/ml Inj ONE (13:17)
[2018-10-11] MEDS ORDERED: Lidocaine Hydrochloride 20 ML INJ ONE (13:20)
--- NOTE | 2018-10-11 13:41 | CP.CCUPN ---
<Michelle Diane - Last Filed: 10/11/18 13:38> CCU Subjective - Physician Review Subjective (Free Text): 10/11/18 13:38 Critical Care Progress Note for Dr. Scott's service Patient seen and examined at bedside. Patient inubated. Limited ROS. Pending permacath placement. Extubation plans s/p permacath CCU Objective - Vital Signs / Intake & Output Vital Signs (Last 4 hours): Vital Signs Temp Pulse Pulse Resp BP BP Pulse Ox 10/11/18 13:11 146/67 10/11/18 13:10 79 15 10/11/18 13:00 62 13 100 10/11/18 12:57 63 15 164/63 H 100 10/11/18 12:41 62 17 153/69 H 100 10/11/18 12:26 59 L 13 140/76 100 10/11/18 12:11 59 L 12 126/59 L 100 10/11/18 12:10 97.4 F L 62 15 153/69 H 100 10/11/18 12:00 97.4 F L 60 14 100 10/11/18 11:56 56 L 14 135/54 L 100 10/11/18 11:42 58 L 15 143/44 L 100 10/11/18 11:40 143/44 L 10/11/18 11:26 56 L 13 131/54 L 98 10/11/18 11:10 55 L 14 125/50 L 125/50 L 100 10/11/18 11:00 57 L 14 100 10/11/18 10:55 56 L 14 111/47 L 100 10/11/18 10:41 51 L 14 101/46 L 100 10/11/18 10:40 101/46 L 10/11/18 10:25 48 L 14 115/45 L 10/11/18 10:11 47 L 14 114/52 L 100 10/11/18 10:10 114/52 L 10/11/18 10:00 43 L 14 100 10/11/18 09:56 51 L 14 119/51 L 100 10/11/18 09:55 119/51 L 10/11/18 09:41 51 L 14 123/42 L 100 10/11/18 09:40 123/42 L Intake and Output (Last 8hrs): Intake & Output 01/06/2010/11/18 10/11/18 22:59 06:59 14:59 Intake Total 834.5 361.0 395.9 Balance 834.5 361.0 395.9 Weight 210 lb Intake: IV 90 85 200 Intake, IV Amount 334.5 116.0 195.9 Right Medial Port Femoral 250 0 100 Right Proximal Port 84.5 116.0 95.9 Femoral Oral 130 Tube Feeding 280 160 0 Other: # Voids Urine, Voided 0 0 0 # Bowel Movements 0 0 1 - Physical Exam Head: Positive for: Atraumatic, Normocephalic Mouth: Positive for: Dry, Other (intubated ETT in place) Respiratory/Chest: Positive for: Good Air Exchange. Negative for: Respiratory Distress Cardiovascular: Positive for: Regular Rate and Rhythm, Normal S1, S2 Abdomen: Positive for: Normal Bowel Sounds. Negative for: Tenderness, Rebound, Guarding Upper Extremity: Positive for: Normal Inspection. Negative for: Cyanosis Lower Extremity: Positive for: Normal Inspection Neurological: Positive for: Other (unable to assess due to patient condition). Negative for: GCS=15 Skin: Positive for: Warm, Dry, Normal Color, Other (right shiley in IJ, right femoral TLC) Psychiatric: Negative for: Alert - Medications Active Medications: Active Medications Generic Name Dose Route Start Last Admin Trade Name Freq PRN Reason Stop Dose Admin Acetaminophen 650 mg 09/29/18 08:30 10/06/18 11:15 Tylenol 325mg Tab PO 650 mg Q6H PRN Administration Pain, Mild (1-3) Acetaminophen 650 mg 10/08/18 10:08 10/09/18 09:59 Tylenol 325mg Tab PO 650 mg Q6 PRN Administration pain+fever Aspirin 81 mg 10/08/18 10:00 10/11/18 09:39 Aspirin Chewable PO Not Given DAILY JOCELYN Carvedilol 3.125 mg 10/08/18 10:00 10/11/18 09:39 Coreg PO Not Given BID JOCELYN Epoetin Dedrick 10,000 unit 10/04/18 10:00 10/11/18 10:50 Procrit IV 10,000 unit TTS JOCELYN Administration Heparin Sodium (Porcine) 5,000 units 09/29/18 10:00 10/10/18 10:21 Heparin SC 5,000 units Q12 JOCELYN Administration Hydralazine HCl 25 mg 10/08/18 10:46 Apresoline PO BID JOC[facility]N Hydrocortisone 5 mg 09/29/18 10:00 10/11/18 09:39 Cortef PO 5 mg DAILY JOCELYN Administration Ferric Sodium Gluconate 110 mls @ 110 mls/hr 10/06/18 10:00 10/11/18 09:40 Complex 125 mg/ Sodium IVPB 10/14/18 10:01 110 mls/hr Chloride DAILY JOCELYN Administration Propofol 1,000 mg in 100 mls @ 2.735 mls/hr 10/06/18 00:22 10/11/18 13:14 Diprivan IV 25 mcg/kg/min .Q24H PRN 13.676 mls/hr TITRATE PER MD ORDER Administration Protocol 5 MCG/KG/MIN Piperacillin Sod/Tazobactam Sod 2.25 gm in 50 mls @ 100 mls/hr 10/06/18 14:00 10/11/18 05:09 Zosyn 2.25 Gm Iv Premix IVPB 100 mls/hr Q8 JOCELYN Administration Protocol Vancomycin HCl 1 gm/ Sodium 250 mls @ 166.7 mls/hr 10/11/18 13:00 Chloride IVPB Q24H [facility] Protocol Insulin Detemir 25 unit 10/08/18 22:00 10/10/18 21:30 Levemir SC 25 u HS JOCELYN Administration Insulin Human Regular 0 unit 10/06/18 12:00 10/11/18 12:44 Novolin R SC Not Given Q6H [facility] Protocol Levetiracetam 750 mg 10/08/18 10:00 10/11/18 09:38 Keppra PO 750 mg BID JOCELYN Administration Levothyroxine Sodium 50 mcg 09/29/18 08:00 10/11/18 05:09 Synthroid PO 50 mcg 0600 JOCELYN Administration Pantoprazole Sodium 40 mg 10/09/18 06:00 10/11/18 05:09 Protonix Susp PO 40 mg 0600 JOCELYN Administration Rosuvastatin Calcium 10 mg 09/30/18 22:00 10/10/18 21:30 Crestor PO 10 mg HS JOCELYN Administration - Patient Studies Lab Studies: Microbiology Studies 10/07/18 20:00 Blood Culture - Preliminary Blood-Venous NO GROWTH AFTER 3 DAYS 10/07/18 20:20 Blood Culture - Preliminary Blood-Venous NO GROWTH AFTER 3 DAYS 10/07/18 20:00 Gram Stain - Final Trachasp Sputum Culture - Final Methicillin Resistant S Aureus Lab Studies 10/11/18 10/11/18 10/11/18 Range/Units 07:30 06:26 06:26 WBC 7.1 9.1 (4.8-10.8) K/uL RBC 3.19 L 2.10 L (3.80-5.20) Mil/uL Hgb 8.7 L D 5.7 L* D (11.0-16.0) g/dL Hct 27.7 L 18.2 L (34.0-47.0) % MCV 86.7 86.7 (81.0-99.0) fL MCH 27.2 27.3 (27.0-31.0) pg MCHC 31.4 L 31.5 L (33.0-37.0) g/dL RDW 14.8 H 14.6 H (11.5-14.5) % Plt Count 164 185 (130-400) K/uL MPV 9.8 10.0 (7.2-11.7) fL Neut % (Auto) 50.1 (50.0-75.0) % Lymph % (Auto) 16.1 L (20.0-40.0) % [place] % (Auto) 15.0 H (0.0-10.0) % Eos % (Auto) 18.1 H (0.0-4.0) % Baso % (Auto) 0.7 (0.0-2.0) % Neut # (Auto) 4.6 (1.8-7.0) K/uL Lymph # (Auto) 1.5 (1.0-4.3) K/uL [place] # (Auto) 1.4 H (0.0-0.8) K/uL Eos # (Auto) 1.6 H (0.0-0.7) K/uL Baso # (Auto) 0.1 (0.0-0.2) K/uL Puncture Site pCO2 (35-45) mm/Hg pO2 (80-100) mm/Hg HCO3 (21-28) mmol/L ABG pH (7.35-7.45) ABG Total CO2 (22-28) mmol/L ABG O2 Saturation (95-98) % ABG Base Excess (-2.0-3.0) mmol/L ABG Hemoglobin (11.7-17.4) g/dL ABG Carboxyhemoglobin (0.5-1.5) % POC ABG HHb (Measured) (0.0-5.0) % ABG Methemoglobin (0.0-3.0) % Jimenez Test A-a O2 Difference mm/Hg Respiratory Index Hgb O2 Saturation (95.0-98.0) % Vent Mode Mechanical Rate FiO2 % Tidal Volume PEEP Sodium 137 (132-148) mmol/L Potassium 3.4 L (3.6-5.2) mmol/L Chloride 98 (98-107) mmol/L Carbon Dioxide 31 H (22-30) mmol/L Anion Gap 11 (10-20) BUN 29 H (7-17) mg/dL Creatinine 3.8 H (0.7-1.2) mg/dL Est GFR ( Amer) 14 Est GFR (Non-Af Amer) 12 POC Glucose (mg/dL) (65-110) mg/dL Random Glucose 230 H D (65-105) mg/dL Calcium 7.5 L (8.6-10.4) mg/dl Phosphorus 4.1 (2.5-4.5) mg/dL Magnesium 1.9 (1.6-2.3) mg/dL Total Bilirubin 0.3 (0.2-1.3) mg/dL AST 22 (14-36) U/L ALT 34 (9-52) U/L Alkaline Phosphatase 123 (38-126) U/L Total Protein 5.6 L (6.3-8.3) g/dL Albumin 2.9 L (3.5-5.0) g/dL Globulin 2.7 (2.2-3.9) gm/dL Albumin/Globulin Ratio 1.0 (1.0-2.1) 10/11/18 10/11/18 10/11/18 Range/Units 05:26 05:17 00:16 WBC (4.8-10.8) K/uL RBC (3.80-5.20) Mil/uL Hgb (11.0-16.0) g/dL Hct (34.0-47.0) % MCV (81.0-99.0) fL MCH (27.0-31.0) pg MCHC (33.0-37.0) g/dL RDW (11.5-14.5) % Plt Count (130-400) K/uL MPV (7.2-11.7) fL Neut % (Auto) (50.0-75.0) % Lymph % (Auto) (20.0-40.0) % [place] % (Auto) (0.0-10.0) % Eos % (Auto) (0.0-4.0) % Baso % (Auto) (0.0-2.0) % Neut # (Auto) (1.8-7.0) K/uL Lymph # (Auto) (1.0-4.3) K/uL [place] # (Auto) (0.0-0.8) K/uL Eos # (Auto) (0.0-0.7) K/uL Baso # (Auto) (0.0-0.2) K/uL Puncture Site R brac pCO2 48 H (35-45) mm/Hg pO2 142 H (80-100) mm/Hg HCO3 27.8 (21-28) mmol/L ABG pH 7.39 (7.35-7.45) ABG Total CO2 30.6 H (22-28) mmol/L ABG O2 Saturation 99.6 H (95-98) % ABG Base Excess 3.7 H (-2.0-3.0) mmol/L ABG Hemoglobin 7.7 L (11.7-17.4) g/dL ABG Carboxyhemoglobin 1.6 H (0.5-1.5) % POC ABG HHb (Measured) 0.4 (0.0-5.0) % ABG Methemoglobin 0.4 (0.0-3.0) % Jimenez Test Na A-a O2 Difference 155.0 mm/Hg Respiratory Index 1.1 Hgb O2 Saturation 97.5 (95.0-98.0) % Vent Mode Prvc Mechanical Rate 14 FiO2 50.0 % Tidal Volume 450 PEEP 5 Sodium (132-148) mmol/L Potassium (3.6-5.2) mmol/L Chloride (98-107) mmol/L Carbon Dioxide (22-30) mmol/L Anion Gap (10-20) BUN (7-17) mg/dL Creatinine (0.7-1.2) mg/dL Est GFR ( Amer) Est GFR (Non-Af Amer) POC Glucose (mg/dL) 301 H 289 H (65-110) mg/dL Random Glucose (65-105) mg/dL Calcium (8.6-10.4) mg/dl Phosphorus (2.5-4.5) mg/dL Magnesium (1.6-2.3) mg/dL Total Bilirubin (0.2-1.3) mg/dL AST (14-36) U/L ALT (9-52) U/L Alkaline Phosphatase (38-126) U/L Total Protein (6.3-8.3) g/dL Albumin (3.5-5.0) g/dL Globulin (2.2-3.9) gm/dL Albumin/Globulin Ratio (1.0-2.1) 10/10/18 Range/Units 18:38 WBC (4.8-10.8) K/uL RBC (3.80-5.20) Mil/uL Hgb (11.0-16.0) g/dL Hct (34.0-47.0) % MCV (81.0-99.0) fL MCH (27.0-31.0) pg MCHC (33.0-37.0) g/dL RDW (11.5-14.5) % Plt Count (130-400) K/uL MPV (7.2-11.7) fL Neut % (Auto) (50.0-75.0) % Lymph % (Auto) (20.0-40.0) % [place] % (Auto) (0.0-10.0) % Eos % (Auto) (0.0-4.0) % Baso % (Auto) (0.0-2.0) % Neut # (Auto) (1.8-7.0) K/uL Lymph # (Auto) (1.0-4.3) K/uL [place] # (Auto) (0.0-0.8) K/uL Eos # (Auto) (0.0-0.7) K/uL Baso # (Auto) (0.0-0.2) K/uL Puncture Site pCO2 (35-45) mm/Hg pO2 (80-100) mm/Hg HCO3 (21-28) mmol/L ABG pH (7.35-7.45) ABG Total CO2 (22-28) mmol/L ABG O2 Saturation (95-98) % ABG Base Excess (-2.0-3.0) mmol/L ABG Hemoglobin (11.7-17.4) g/dL ABG Carboxyhemoglobin (0.5-1.5) % POC ABG HHb (Measured) (0.0-5.0) % ABG Methemoglobin (0.0-3.0) % Jimenez Test A-a O2 Difference mm/Hg Respiratory Index Hgb O2 Saturation (95.0-98.0) % Vent Mode Mechanical Rate FiO2 % Tidal Volume PEEP Sodium (132-148) mmol/L Potassium (3.6-5.2) mmol/L Chloride (98-107) mmol/L Carbon Dioxide (22-30) mmol/L Anion Gap (10-20) BUN (7-17) mg/dL Creatinine (0.7-1.2) mg/dL Est GFR ( Amer) Est GFR (Non-Af Amer) POC Glucose (mg/dL) 296 H (65-110) mg/dL Random Glucose (65-105) mg/dL Calcium (8.6-10.4) mg/dl Phosphorus (2.5-4.5) mg/dL Magnesium (1.6-2.3) mg/dL Total Bilirubin (0.2-1.3) mg/dL AST (14-36) U/L ALT (9-52) U/L Alkaline Phosphatase (38-126) U/L Total Protein (6.3-8.3) g/dL Albumin (3.5-5.0) g/dL Globulin (2.2-3.9) gm/dL Albumin/Globulin Ratio (1.0-2.1) Laboratory Results - last 24 hr 10/10/18 10/11/18 10/11/18 18:38 00:16 05:17 WBC RBC Hgb Hct MCV MCH MCHC RDW Plt Count MPV Neut % (Auto) Lymph % (Auto) [place] % (Auto) Eos % (Auto) Baso % (Auto) Neut # (Auto) Lymph # (Auto) [place] # (Auto) Eos # (Auto) Baso # (Auto) Puncture Site R brac pCO2 48 H pO2 142 H HCO3 27.8 ABG pH 7.39 ABG Total CO2 30.6 H ABG O2 Saturation 99.6 H ABG Base Excess 3.7 H ABG Hemoglobin 7.7 L ABG Carboxyhemoglobin 1.6 H POC ABG HHb (Measured) 0.4 ABG Methemoglobin 0.4 Jimenez Test Na A-a O2 Difference 155.0 Respiratory Index 1.1 Hgb O2 Saturation 97.5 Vent Mode Prvc Mechanical Rate 14 FiO2 50.0 Tidal Volume 450 PEEP 5 Sodium Potassium Chloride Carbon Dioxide Anion Gap BUN Creatinine Est GFR ( Amer) Est GFR (Non-Af Amer) POC Glucose (mg/dL) 296 H 289 H Random Glucose Calcium Phosphorus Magnesium Total Bilirubin AST ALT Alkaline Phosphatase Total Protein Albumin Globulin Albumin/Globulin Ratio 10/11/18 10/11/18 10/11/18 05:26 06:26 06:26 WBC 9.1 RBC 2.10 L Hgb 5.7 L* D Hct 18.2 L MCV 86.7 MCH 27.3 MCHC 31.5 L RDW 14.6 H Plt Count 185 MPV 10.0 Neut % (Auto) 50.1 Lymph % (Auto) 16.1 L [place] % (Auto) 15.0 H Eos % (Auto) 18.1 H Baso % (Auto) 0.7 Neut # (Auto) 4.6 Lymph # (Auto) 1.5 [place] # (Auto) 1.4 H Eos # (Auto) 1.6 H Baso # (Auto) 0.1 Puncture Site pCO2 pO2 HCO3 ABG pH ABG Total CO2 ABG O2 Saturation ABG Base Excess ABG Hemoglobin ABG Carboxyhemoglobin POC ABG HHb (Measured) ABG Methemoglobin Jimenez Test A-a O2 Difference Respiratory Index Hgb O2 Saturation Vent Mode Mechanical Rate FiO2 Tidal Volume PEEP Sodium 137 Potassium 3.4 L Chloride 98 Carbon Dioxide 31 H Anion Gap 11 BUN 29 H Creatinine 3.8 H Est GFR ( Amer) 14 Est GFR (Non-Af Amer) 12 POC Glucose (mg/dL) 301 H Random Glucose 230 H D Calcium 7.5 L Phosphorus 4.1 Magnesium 1.9 Total Bilirubin 0.3 AST 22 ALT 34 Alkaline Phosphatase 123 Total Protein 5.6 L Albumin 2.9 L Globulin 2.7 Albumin/Globulin Ratio 1.0 10/11/18 07:30 WBC 7.1 RBC 3.19 L Hgb 8.7 L D Hct 27.7 L MCV 86.7 MCH 27.2 MCHC 31.4 L RDW 14.8 H Plt Count 164 MPV 9.8 Neut % (Auto) Lymph % (Auto) [place] % (Auto) Eos % (Auto) Baso % (Auto) Neut # (Auto) Lymph # (Auto) [place] # (Auto) Eos # (Auto) Baso # (Auto) Puncture Site pCO2 pO2 HCO3 ABG pH ABG Total CO2 ABG O2 Saturation ABG Base Excess ABG Hemoglobin ABG Carboxyhemoglobin POC ABG HHb (Measured) ABG Methemoglobin Jimenez Test A-a O2 Difference Respiratory Index Hgb O2 Saturation Vent Mode Mechanical Rate FiO2 Tidal Volume PEEP Sodium Potassium Chloride Carbon Dioxide Anion Gap BUN Creatinine Est GFR ( Amer) Est GFR (Non-Af Amer) POC Glucose (mg/dL) Random Glucose Calcium Phosphorus Magnesium Total Bilirubin AST ALT Alkaline Phosphatase Total Protein Albumin Globulin Albumin/Globulin Ratio Radiology Impressions: Radiology Impressions Chest X-Ray 10/11/18 06:00 Impression: Lines and tubes in stable position. Moderate venous congestion. Right hilar consolidative changes. Left basilar consolidative changes with small left pleural effusion. Atherosclerotic calcification at the aortic knob. Cardiomegaly. Fingerstick Blood Sugar Results: 153 Review of Systems - Review of Systems Systems not reviewed;Unavailable: Intubated Critical Care Progress Note - Ventilator Checklist Head of Bed 30 Degrees: Yes Daily Sedation Vacation: Yes Daily Assessment of Readiness to Wean: Yes Daily Spontaneous Breathing Trial: Yes PUD Prophalyxis: Yes DVT Prophylaxis: Yes Oral Care with Chlorhexidine Gluconate {CHG}: Yes - Vent Settings MODE:: PRVC TIDAL VOLUME:: 450 RESP RATE:: 14 FIO2:: 50 PEEP:: 5 - Extremities/Vascular Does the Patient have a Central Venous Catheter?: Yes Insertion Site: Femoral Vein Does the Patient need a Central Venous Catheter?: Yes Does the Patient have a Rodriguez Catheter?: Yes Does the Patient need a Rodriguez Catheter?: Yes Catheter Insertion Criteria: Need for accurate measurement of output in critically ill patient - Nutrition Nutrition: Nutrition Category Date Time Status NPO Diet [DIET] Diets 10/11/18 Breakfast Active Assessment/Plan - Assessment and Plan (Free Text) Assessment: Patient is a 72 yo female w/ PMH of CKD5, CHF, CAD s/p stents, pituiatry adenoma s/p resection, DM2 admitted for respiratory and cardiac arrest s/p permacath placement and AVF on 10-05. 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 Scott <Bubba Scott - Last Filed: 10/11/18 20:22> CCU Objective - Vital Signs / Intake & Output Vital Signs (Last 4 hours): Vital Signs Pulse Resp BP Pulse Ox 10/11/18 19:00 54 L 14 100 10/11/18 18:00 59 L 14 100 10/11/18 17:56 61 13 142/55 L 100 10/11/18 17:40 56 L 14 142/57 L 100 10/11/18 17:11 59 L 14 150/53 L 100 10/11/18 17:00 56 L 12 100 10/11/18 16:56 61 10 L 150/49 L 100 10/11/18 16:41 60 13 156/53 H 100 10/11/18 16:26 63 14 155/43 H 100 10/11/18 16:21 62 14 164/77 H 100 Intake and Output (Last 8hrs): Intake & Output 10/11/18 10/11/18 10/11/18 06:59 14:59 22:59 Intake Total 361.0 509.6 558.5 Balance 361.0 509.6 558.5 Weight 210 lb Intake: IV 85 250 100 Intake, IV Amount 116.0 259.6 318.5 Right Medial Port Femoral 0 150 250 Right Proximal Port 116.0 109.6 68.5 Femoral Oral 80 Tube Feeding 160 0 60 Other: # Voids Urine, Voided 0 0 0 # Bowel Movements 0 0 0 - Medications Active Medications: Active Medications Generic Name Dose Route Start Last Admin Trade Name Freq PRN Reason Stop Dose Admin Acetaminophen 650 mg 09/29/18 08:30 10/06/18 11:15 Tylenol 325mg Tab PO 650 mg Q6H PRN Administration Pain, Mild (1-3) Acetaminophen 650 mg 10/08/18 10:08 10/09/18 09:59 Tylenol 325mg Tab PO 650 mg Q6 PRN Administration pain+fever Aspirin 81 mg 10/08/18 10:00 10/11/18 09:39 Aspirin Chewable PO Not Given DAILY [facility] Carvedilol 3.125 mg 10/08/18 10:00 10/11/18 18:20 Coreg PO Not Given BID [facility] Epoetin Dedrick 10,000 unit 10/04/18 10:00 10/11/18 10:50 Procrit IV 10,000 unit TTS [facility] Administration Heparin Sodium (Porcine) 5,000 units 10/11/18 22:00 Heparin SC Q12 [facility] Hydralazine HCl 25 mg 10/08/18 10:46 Apresoline PO BID [facility] Hydrocortisone 5 mg 09/29/18 10:00 10/11/18 09:39 Cortef PO 5 mg DAILY [facility] Administration Ferric Sodium Gluconate 110 mls @ 110 mls/hr 10/06/18 10:00 10/11/18 09:40 Complex 125 mg/ Sodium IVPB 10/14/18 10:01 110 mls/hr Chloride DAILY [facility] Administration Propofol 1,000 mg in 100 mls @ 2.735 mls/hr 10/06/18 00:22 10/11/18 19:04 Diprivan IV 25 mcg/kg/min .Q24H PRN 13.676 mls/hr TITRATE PER MD ORDER Administration Protocol 5 MCG/KG/MIN Piperacillin Sod/Tazobactam Sod 2.25 gm in 50 mls @ 100 mls/hr 10/06/18 14:00 10/11/18 14:58 Zosyn 2.25 Gm Iv Premix IVPB Not Given Q8 [facility] Protocol Vancomycin HCl 1 gm/ Sodium 250 mls @ 166.7 mls/hr 10/11/18 13:00 10/11/18 14:56 Chloride IVPB 166.7 mls/hr Q24H [facility] Administration Protocol Insulin Detemir 25 unit 10/08/18 22:00 10/10/18 21:30 Levemir SC 25 u HS JOCELYN Administration Insulin Human Regular 0 unit 10/06/18 12:00 10/11/18 18:20 Novolin R SC 1 u Q6H [facility]OC[facility]N Administration Protocol Levetiracetam 750 mg 10/08/18 10:00 10/11/18 18:19 Keppra PO 750 mg BID JOCELYN Administration Levothyroxine Sodium 50 mcg 09/29/18 08:00 10/11/18 05:09 Synthroid PO 50 mcg 0600 JOCELYN Administration Pantoprazole Sodium 40 mg 10/09/18 06:00 10/11/18 05:09 Protonix Susp PO 40 mg 0600 JOCELYN Administration Rosuvastatin Calcium 10 mg 09/30/18 22:00 10/10/18 21:30 Crestor PO 10 mg HS JOCELYN Administration - Patient Studies Lab Studies: Microbiology Studies 10/07/18 20:00 Blood Culture - Preliminary Blood-Venous NO GROWTH AFTER 3 DAYS 10/07/18 20:20 Blood Culture - Preliminary Blood-Venous NO GROWTH AFTER 3 DAYS Lab Studies 10/11/18 10/11/18 10/11/18 Range/Units 17:54 11:16 07:30 WBC 7.1 (4.8-10.8) K/uL RBC 3.19 L (3.80-5.20) Mil/uL Hgb 8.7 L D (11.0-16.0) g/dL Hct 27.7 L (34.0-47.0) % MCV 86.7 (81.0-99.0) fL MCH 27.2 (27.0-31.0) pg MCHC 31.4 L (33.0-37.0) g/dL RDW 14.8 H (11.5-14.5) % Plt Count 164 (130-400) K/uL MPV 9.8 (7.2-11.7) fL Neut % (Auto) (50.0-75.0) % Lymph % (Auto) (20.0-40.0) % [place] % (Auto) (0.0-10.0) % Eos % (Auto) (0.0-4.0) % Baso % (Auto) (0.0-2.0) % Neut # (Auto) (1.8-7.0) K/uL Lymph # (Auto) (1.0-4.3) K/uL [place] # (Auto) (0.0-0.8) K/uL Eos # (Auto) (0.0-0.7) K/uL Baso # (Auto) (0.0-0.2) K/uL Puncture Site pCO2 (35-45) mm/Hg pO2 (80-100) mm/Hg HCO3 (21-28) mmol/L ABG pH (7.35-7.45) ABG Total CO2 (22-28) mmol/L ABG O2 Saturation (95-98) % ABG Base Excess (-2.0-3.0) mmol/L ABG Hemoglobin (11.7-17.4) g/dL ABG Carboxyhemoglobin (0.5-1.5) % POC ABG HHb (Measured) (0.0-5.0) % ABG Methemoglobin (0.0-3.0) % Jimenez Test A-a O2 Difference mm/Hg Respiratory Index Hgb O2 Saturation (95.0-98.0) % Vent Mode Mechanical Rate FiO2 % Tidal Volume PEEP Sodium (132-148) mmol/L Potassium (3.6-5.2) mmol/L Chloride (98-107) mmol/L Carbon Dioxide (22-30) mmol/L Anion Gap (10-20) BUN (7-17) mg/dL Creatinine (0.7-1.2) mg/dL Est GFR ( Amer) Est GFR (Non-Af Amer) POC Glucose (mg/dL) 151 H 153 H (65-110) mg/dL Random Glucose (65-105) mg/dL Calcium (8.6-10.4) mg/dl Phosphorus (2.5-4.5) mg/dL Magnesium (1.6-2.3) mg/dL Total Bilirubin (0.2-1.3) mg/dL AST (14-36) U/L ALT (9-52) U/L Alkaline Phosphatase (38-126) U/L Total Protein (6.3-8.3) g/dL Albumin (3.5-5.0) g/dL Globulin (2.2-3.9) gm/dL Albumin/Globulin Ratio (1.0-2.1) 10/11/18 10/11/18 10/11/18 Range/Units 06:26 06:26 05:26 WBC 9.1 (4.8-10.8) K/uL RBC 2.10 L (3.80-5.20) Mil/uL Hgb 5.7 L* D (11.0-16.0) g/dL Hct 18.2 L (34.0-47.0) % MCV 86.7 (81.0-99.0) fL MCH 27.3 (27.0-31.0) pg MCHC 31.5 L (33.0-37.0) g/dL RDW 14.6 H (11.5-14.5) % Plt Count 185 (130-400) K/uL MPV 10.0 (7.2-11.7) fL Neut % (Auto) 50.1 (50.0-75.0) % Lymph % (Auto) 16.1 L (20.0-40.0) % [place] % (Auto) 15.0 H (0.0-10.0) % Eos % (Auto) 18.1 H (0.0-4.0) % Baso % (Auto) 0.7 (0.0-2.0) % Neut # (Auto) 4.6 (1.8-7.0) K/uL Lymph # (Auto) 1.5 (1.0-4.3) K/uL [place] # (Auto) 1.4 H (0.0-0.8) K/uL Eos # (Auto) 1.6 H (0.0-0.7) K/uL Baso # (Auto) 0.1 (0.0-0.2) K/uL Puncture Site pCO2 (35-45) mm/Hg pO2 (80-100) mm/Hg HCO3 (21-28) mmol/L ABG pH (7.35-7.45) ABG Total CO2 (22-28) mmol/L ABG O2 Saturation (95-98) % ABG Base Excess (-2.0-3.0) mmol/L ABG Hemoglobin (11.7-17.4) g/dL ABG Carboxyhemoglobin (0.5-1.5) % POC ABG HHb (Measured) (0.0-5.0) % ABG Methemoglobin (0.0-3.0) % Jimenez Test A-a O2 Difference mm/Hg Respiratory Index Hgb O2 Saturation (95.0-98.0) % Vent Mode Mechanical Rate FiO2 % Tidal Volume PEEP Sodium 137 (132-148) mmol/L Potassium 3.4 L (3.6-5.2) mmol/L Chloride 98 (98-107) mmol/L Carbon Dioxide 31 H (22-30) mmol/L Anion Gap 11 (10-20) BUN 29 H (7-17) mg/dL Creatinine 3.8 H (0.7-1.2) mg/dL Est GFR ( Amer) 14 Est GFR (Non-Af Amer) 12 POC Glucose (mg/dL) 301 H (65-110) mg/dL Random Glucose 230 H D (65-105) mg/dL Calcium 7.5 L (8.6-10.4) mg/dl Phosphorus 4.1 (2.5-4.5) mg/dL Magnesium 1.9 (1.6-2.3) mg/dL Total Bilirubin 0.3 (0.2-1.3) mg/dL AST 22 (14-36) U/L ALT 34 (9-52) U/L Alkaline Phosphatase 123 (38-126) U/L Total Protein 5.6 L (6.3-8.3) g/dL Albumin 2.9 L (3.5-5.0) g/dL Globulin 2.7 (2.2-3.9) gm/dL Albumin/Globulin Ratio 1.0 (1.0-2.1) 10/11/18 10/11/18 Range/Units 05:17 00:16 WBC (4.8-10.8) K/uL RBC (3.80-5.20) Mil/uL Hgb (11.0-16.0) g/dL Hct (34.0-47.0) % MCV (81.0-99.0) fL MCH (27.0-31.0) pg MCHC (33.0-37.0) g/dL RDW (11.5-14.5) % Plt Count (130-400) K/uL MPV (7.2-11.7) fL Neut % (Auto) (50.0-75.0) % Lymph % (Auto) (20.0-40.0) % [place] % (Auto) (0.0-10.0) % Eos % (Auto) (0.0-4.0) % Baso % (Auto) (0.0-2.0) % Neut # (Auto) (1.8-7.0) K/uL Lymph # (Auto) (1.0-4.3) K/uL [place] # (Auto) (0.0-0.8) K/uL Eos # (Auto) (0.0-0.7) K/uL Baso # (Auto) (0.0-0.2) K/uL Puncture Site R brac pCO2 48 H (35-45) mm/Hg pO2 142 H (80-100) mm/Hg HCO3 27.8 (21-28) mmol/L ABG pH 7.39 (7.35-7.45) ABG Total CO2 30.6 H (22-28) mmol/L ABG O2 Saturation 99.6 H (95-98) % ABG Base Excess 3.7 H (-2.0-3.0) mmol/L ABG Hemoglobin 7.7 L (11.7-17.4) g/dL ABG Carboxyhemoglobin 1.6 H (0.5-1.5) % POC ABG HHb (Measured) 0.4 (0.0-5.0) % ABG Methemoglobin 0.4 (0.0-3.0) % Jimenez Test Na A-a O2 Difference 155.0 mm/Hg Respiratory Index 1.1 Hgb O2 Saturation 97.5 (95.0-98.0) % Vent Mode Prvc Mechanical Rate 14 FiO2 50.0 % Tidal Volume 450 PEEP 5 Sodium (132-148) mmol/L Potassium (3.6-5.2) mmol/L Chloride (98-107) mmol/L Carbon Dioxide (22-30) mmol/L Anion Gap (10-20) BUN (7-17) mg/dL Creatinine (0.7-1.2) mg/dL Est GFR ( Amer) Est GFR (Non-Af Amer) POC Glucose (mg/dL) 289 H (65-110) mg/dL Random Glucose (65-105) mg/dL Calcium (8.6-10.4) mg/dl Phosphorus (2.5-4.5) mg/dL Magnesium (1.6-2.3) mg/dL Total Bilirubin (0.2-1.3) mg/dL AST (14-36) U/L ALT (9-52) U/L Alkaline Phosphatase (38-126) U/L Total Protein (6.3-8.3) g/dL Albumin (3.5-5.0) g/dL Globulin (2.2-3.9) gm/dL Albumin/Globulin Ratio (1.0-2.1) Laboratory Results - last 24 hr 10/11/18 10/11/18 10/11/18 00:16 05:17 05:26 WBC RBC Hgb Hct MCV MCH MCHC RDW Plt Count MPV Neut % (Auto) Lymph % (Auto) [place] % (Auto) Eos % (Auto) Baso % (Auto) Neut # (Auto) Lymph # (Auto) [place] # (Auto) Eos # (Auto) Baso # (Auto) Puncture Site R brac pCO2 48 H pO2 142 H HCO3 27.8 ABG pH 7.39 ABG Total CO2 30.6 H ABG O2 Saturation 99.6 H ABG Base Excess 3.7 H ABG Hemoglobin 7.7 L ABG Carboxyhemoglobin 1.6 H POC ABG HHb (Measured) 0.4 ABG Methemoglobin 0.4 Jimenez Test Na A-a O2 Difference 155.0 Respiratory Index 1.1 Hgb O2 Saturation 97.5 Vent Mode Prvc Mechanical Rate 14 FiO2 50.0 Tidal Volume 450 PEEP 5 Sodium Potassium Chloride Carbon Dioxide Anion Gap BUN Creatinine Est GFR ( Amer) Est GFR (Non-Af Amer) POC Glucose (mg/dL) 289 H 301 H Random Glucose Calcium Phosphorus Magnesium Total Bilirubin AST ALT Alkaline Phosphatase Total Protein Albumin Globulin Albumin/Globulin Ratio 10/11/18 10/11/18 10/11/18 06:26 06:26 07:30 WBC 9.1 7.1 RBC 2.10 L 3.19 L Hgb 5.7 L* D 8.7 L D Hct 18.2 L 27.7 L MCV 86.7 86.7 MCH 27.3 27.2 MCHC 31.5 L 31.4 L RDW 14.6 H 14.8 H Plt Count 185 164 MPV 10.0 9.8 Neut % (Auto) 50.1 Lymph % (Auto) 16.1 L [place] % (Auto) 15.0 H Eos % (Auto) 18.1 H Baso % (Auto) 0.7 Neut # (Auto) 4.6 Lymph # (Auto) 1.5 [place] # (Auto) 1.4 H Eos # (Auto) 1.6 H Baso # (Auto) 0.1 Puncture Site pCO2 pO2 HCO3 ABG pH ABG Total CO2 ABG O2 Saturation ABG Base Excess ABG Hemoglobin ABG Carboxyhemoglobin POC ABG HHb (Measured) ABG Methemoglobin Jimenez Test A-a O2 Difference Respiratory Index Hgb O2 Saturation Vent Mode Mechanical Rate FiO2 Tidal Volume PEEP Sodium 137 Potassium 3.4 L Chloride 98 Carbon Dioxide 31 H Anion Gap 11 BUN 29 H Creatinine 3.8 H Est GFR ( Amer) 14 Est GFR (Non-Af Amer) 12 POC Glucose (mg/dL) Random Glucose 230 H D Calcium 7.5 L Phosphorus 4.1 Magnesium 1.9 Total Bilirubin 0.3 AST 22 ALT 34 Alkaline Phosphatase 123 Total Protein 5.6 L Albumin 2.9 L Globulin 2.7 Albumin/Globulin Ratio 1.0 10/11/18 10/11/18 11:16 17:54 WBC RBC Hgb Hct MCV MCH MCHC RDW Plt Count MPV Neut % (Auto) Lymph % (Auto) [place] % (Auto) Eos % (Auto) Baso % (Auto) Neut # (Auto) Lymph # (Auto) [place] # (Auto) Eos # (Auto) Baso # (Auto) Puncture Site pCO2 pO2 HCO3 ABG pH ABG Total CO2 ABG O2 Saturation ABG Base Excess ABG Hemoglobin ABG Carboxyhemoglobin POC ABG HHb (Measured) ABG Methemoglobin Jimenez Test A-a O2 Difference Respiratory Index Hgb O2 Saturation Vent Mode Mechanical Rate FiO2 Tidal Volume PEEP Sodium Potassium Chloride Carbon Dioxide Anion Gap BUN Creatinine Est GFR ( Amer) Est GFR (Non-Af Amer) POC Glucose (mg/dL) 153 H 151 H Random Glucose Calcium Phosphorus Magnesium Total Bilirubin AST ALT Alkaline Phosphatase Total Protein Albumin Globulin Albumin/Globulin Ratio Radiology Impressions: Radiology Impressions Chest X-Ray 10/11/18 06:00 Impression: Lines and tubes in stable position. Moderate venous congestion. Right hilar consolidative changes. Left basilar consolidative changes with small left pleural effusion. Atherosclerotic calcification at the aortic knob. Cardiomegaly. Chest X-Ray 10/11/18 14:30 IMPRESSION: New ET tube and tunneled central venous dialysis catheter. No infiltrate. Attending/Attestation - Attestation I have personally seen and examined this patient.: Yes I have fully participated in the care of the patient.: Yes I have reviewed all pertinent clinical information: Yes Notes (Text): 10/11/18 20:17 Today: , October 11, 2018 The Patient was seen and examined at the bedside, Medical records reviewed, and management issues were discussed and formulated with the house staff. I have reviewed all the relevant clinical, laboratory, hemodynamic, radiographic data and medications Events reviewed Pain issues, skin care, head of the bed elevation, glycemic control were addressed. Agree with above resident's assessment and treatment plans of care as transcribe d in Dr. Diane's note. Critically ill patient with Cardiac arrest, acute hypoxemic respiratory failure, 72 yo female w/ PMHx of CKD 5, CHF, CAD post stent, pituitary adenoma, DM2, HTN admitted for cardiac arrest during AVF placement and catheter on 10/05. S/P hypothermia protocol 10/05 ESRD, s/p extra dialysis 10/07 Continue IV Zosyn and Vancomycin Cardiac medication Scheduled for Right IJ Permacath in AM Discussed with the family in details diagnosis, treatment plans and alternatives, GI PPX: Protonix 40 mg PO DVT PPX: SQ Heparin Code status: Full code Total critical care time 38 minutes
[2018-10-11] MEDS ORDERED: Neostigmine Methylsulfate 3mg/3ml Syringe IV ONE (14:24)
--- NOTE | 2018-10-11 14:29 | PCM.SURG1 ---
Surgeon's Initial Post Op Note - Surgeon's Notes Surgeon: Dr. Blank [place] Operations Coordinator: Umang PGY2; Aida MS3 Type of Anesthesia: General Endo Anesthesia Administered By: Dr. Clifton Pre-Operative Diagnosis: End Stage Renal Disease Operative Findings: See operative report. Right IJ Permacath via new puncture site. Prior R IJ Shiley removed Post-Operative Diagnosis: same Operation Performed: Right IJ Permacath Placement Specimen/Specimens Removed: none Estimated Blood Loss: EBL {In ML}: 150 Blood Products Given: N/A Drains Used: No Drains Post-Op Condition: Fair Date of Surgery/Procedure: 10/11/18 Time of Surgery/Procedure: 14:29
--- NOTE | 2018-10-11 15:25 | RAD ---
Date of service: 10/11/2018 HISTORY: Right IJ Permacath COMPARISON: 10/11/2018 at 7:11 a.m. FINDINGS: LUNGS: No active pulmonary disease. PLEURA: No significant pleural effusion identified, no pneumothorax apparent. CARDIOVASCULAR: There is minimal atherosclerotic calcification of the aortic arch. Normal cardiac size. No pulmonary vascular congestive change. New right tunneled central venous dialysis catheter. New endotracheal tube with its tip approximately 3.8 cm above the tracheal kaylah. Nasogastric tube again noted extending to the central upper abdomen. OSSEOUS STRUCTURES: No significant abnormalities. VISUALIZED UPPER ABDOMEN: Normal. OTHER FINDINGS: None. IMPRESSION: New ET tube and tunneled central venous dialysis catheter. No infiltrate.
--- NOTE | 2018-10-11 16:35 | RAD ---
Date of service: 10/11/2018 PROCEDURE: Intraoperative Fluoroscopy. HISTORY: RENAL FAILURE FINDINGS: Fluoroscopic assistance was provided for right-sided Port-A-Cath placement. Please refer to the operative report from [facility] [place].
--- NOTE | 2018-10-11 17:30 | OP ---
PROCEDURE DATE: 10/11/2018 PREOPERATIVE DIAGNOSIS: Renal failure. POSTOPERATIVE DIAGNOSIS: Renal failure. PROCEDURE CARRIED OUT: Placement of Permacath in right jugular vein with C-arm fluoroscopy, ultrasound guided puncture and micropuncture technique. SURGEON: Galindo Blank Jr., MD EVENT MGR: Sanchez Heck DO ANESTHESIOLOGIST: Dr. Clifton. ANESTHESIA: General. INDICATION FOR PROCEDURE: A 72-year-old woman with renal failure. Had temporary catheter placed in the neck. OPERATIVE FINDINGS: An entirely new catheter was placed in the right jugular vein using a separate puncture. DESCRIPTION OF PROCEDURE: The patient was given general anesthesia. Intravenous antibiotics was previously administered. Using imaging, we were able to puncture the right jugular vein. Under fluoroscopic control, we advanced the guidewire essentially. Eventually we were able to pass the guidewire that went into the inferior vena cava. We then passed a catheter originating on the right chest wall and terminating in the inferior vena cava. This is due to the patient's body habitus anticipated move as she stands up, etc. The old catheter was then removed. The catheter was sutured in to position. There were no apparent complications or problems. There was 150 mL blood loss, but otherwise the procedure proceeded uneventfully. Galindo Blank Jr., MD
[2018-10-11] MEDS: Insulin Detemir 100 units/ml Vial (Levemir) SC SCH (21:50)
--- NOTE | 2018-10-11 22:50 | CP.PCM.PN ---
Subjective - Date & Time of Evaluation Date of Evaluation: 10/11/18 Time of Evaluation: 12:05 - Subjective Subjective: Patient seen and examined at bedside. Patient inubated. CCU Objective - Physical Exam Head: Positive for: Atraumatic, Normocephalic Mouth: Positive for: Dry, Other (intubated ETT in place) Respiratory/Chest: Positive for: Good Air Exchange. Negative for: Respiratory Distress Cardiovascular: Positive for: Regular Rate and Rhythm, Normal S1, S2 Abdomen: Positive for: Normal Bowel Sounds. Negative for: Tenderness, Rebound, Guarding Upper Extremity: Positive for: Normal Inspection. Negative for: Cyanosis Lower Extremity: Positive for: Normal Inspection Neurological: Positive for: Other (unable to assess due to patient condition). Negative for: GCS=15 Skin: Positive for: Warm, Dry, Normal Color, Other (right shiley in IJ, right femoral TLC) Psychiatric: Negative for: Alert Assessment/Plan - Assessment and Plan (Free Text) Assessment: Patient is a 72 yo female w/ PMH of CKD5, CHF, CAD s/p stents, pituiatry adenoma s/p resection, DM2 admitted for respiratory and cardiac arrest s/p permacath placement and AVF on 10-05. Neuro Intubated and Sedated on Propofol drip not awake or alert, GCS=3 Keppra CV Carvedilol Hydralazine Crestor Aspirin s/p Respiratory arrest; code freeze completed Pulm Intubated; Vent settings as per ICU plan for extubation s/p permacath placement GI Tube feedings PRotonix Heme EPO w/ Diaylsis Ferric sodium drip Renal ESRD- continue dialysis pending permacath today Endo Levemir Insulin regular Levothyroxine Hydrocortisone ID +[id number] on 10-07 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 asp Zosyn Vanc with dialysis DVT ppx: Heparin GI ppx: Protonix Disposition: Pending permacath today; extubation trial to occur s/p permacath; assess mental status once extubated and off sedation Objective - Vital Signs/Intake and Output Vital Signs (last 24 hours): Temp Pulse Resp BP Pulse Ox 98.2 F 64 13 128/56 L 98 10/11/18 20:00 10/11/18 22:02 10/11/18 22:02 10/11/18 22:02 10/11/18 22:02 Intake and Output: 10/11/18 10/12/18 18:59 06:59 Intake Total 968.1 221.1 Balance 968.1 221.1 - Medications Medications: Current Medications Acetaminophen (Tylenol 325mg Tab) 650 mg PO Q6H PRN PRN Reason: Pain, Mild (1-3) Last Admin: 10/06/18 11:15 Dose: 650 mg Acetaminophen (Tylenol 325mg Tab) 650 mg PO Q6 PRN PRN Reason: pain+fever Last Admin: 10/09/18 09:59 Dose: 650 mg Aspirin (Aspirin Chewable) 81 mg PO DAILY [facility] Last Admin: 10/11/18 09:39 Dose: Not Given Carvedilol (Coreg) 3.125 mg PO BID [facility] Last Admin: 10/11/18 18:20 Dose: Not Given Epoetin Dedrick (Procrit) 10,000 unit IV TTS [facility] Last Admin: 10/11/18 10:50 Dose: 10,000 unit Heparin Sodium (Porcine) (Heparin) 5,000 units SC Q12 [facility] Last Admin: 10/11/18 21:49 Dose: 5,000 units Hydralazine HCl (Apresoline) 25 mg PO BID [facility] Hydrocortisone (Cortef) 5 mg PO DAILY [facility] Last Admin: 10/11/18 09:39 Dose: 5 mg Ferric Sodium Gluconate Complex 125 mg/ Sodium Chloride 110 mls @ 110 mls/hr IVPB DAILY [facility] Stop: 10/14/18 10:01 Last Admin: 10/11/18 09:40 Dose: 110 mls/hr Propofol (Diprivan) 1,000 mg in 100 mls @ 2.735 mls/hr IV .Q24H PRN; Protocol PRN Reason: TITRATE PER MD ORDER Last Admin: 10/11/18 19:04 Dose: 25 mcg/kg/min, 13.676 mls/hr Piperacillin Sod/Tazobactam Sod (Zosyn 2.25 Gm Iv Premix) 2.25 gm in 50 mls @ 100 mls/hr IVPB Q8 [facility]; Protocol Last Admin: 10/11/18 21:47 Dose: 100 mls/hr Vancomycin HCl 1 gm/ Sodium (Chloride) 250 mls @ 166.7 mls/hr IVPB Q24H [facility]; Protocol Last Admin: 10/11/18 14:56 Dose: 166.7 mls/hr Insulin Detemir (Levemir) 25 unit SC HS [facility] Last Admin: 10/11/18 21:50 Dose: 25 u Insulin Human Regular (Novolin R) 0 unit SC Q6H [facility]; Protocol Last Admin: 10/11/18 18:20 Dose: 1 u Levetiracetam (Keppra) 750 mg PO BID [facility] Last Admin: 10/11/18 18:19 Dose: 750 mg Levothyroxine Sodium (Synthroid) 50 mcg PO 0600 [facility] Last Admin: 10/11/18 05:09 Dose: 50 mcg Pantoprazole Sodium (Protonix Susp) 40 mg PO 0600 [facility] Last Admin: 10/11/18 05:09 Dose: 40 mg Rosuvastatin Calcium (Crestor) 10 mg PO HS [facility] Last Admin: 10/11/18 21:50 Dose: 10 mg - Labs Labs: 10/11/18 07:30 10/11/18 06:26 PT 13.9 SECONDS (9.7-12.2) H 10/06/18 21:04 INR 1.3 10/06/18 21:04 APTT 45 SECONDS (21-34) H D 10/06/18 21:04
[2018-10-12] MEDS: (Novolin R) Insulin Human Regular 100 units/ml vial SC SCH ×4 (00:12→17:54)
[2018-10-12] MEDS: Propofol 10 mg/ml 1,000 MG/100 ML VIAL IV PRN ×2 (03:15→09:47)
[2018-10-12] MEDS: Pantoprazole 40 mg Susp UD PO SCH (05:16)
[2018-10-12] MEDS: Levothyroxine 50 MCG TAB PO SCH (05:17)
[2018-10-12] MEDS: Piperacill/Tazo 2.25gm in Dex 2.25 GM/50 ML BAG IVPB SCH ×3 (05:17→22:00)
[2018-10-12 06:02] LABS: ARTERIAL BLOOD GAS HEMOGLOBIN 8.5 g/dL (11.7-17.4); ARTERIAL BLOOD GAS O2 SAT 99.3 % (95-98); ARTERIAL BLOOD GAS PCO2 50 mm/Hg (35-45); ARTERIAL BLOOD GAS PH 7.38 (7.35-7.45); ARTERIAL BLOOD GAS PO2 144 mm/Hg (80-100); ARTERIAL BLOOD GAS TCO2 31.1 mmol/L (22-28)
[2018-10-12 06:28] LABS: BASO % 0.6 % (0.0-2.0); EOS # 1.4 K/uL (0.0-0.7); EOS % 17.3 % (0.0-4.0); HEMOGLOBIN 9.1 g/dL (11.0-16.0); LYMPH # 1.3 K/uL (1.0-4.3); MEAN CORPUSCULAR HEMOGLOBIN 27.3 pg (27.0-31.0); MEAN CORPUSCULAR HGB CONC 31.4 g/dL (33.0-37.0); MONO % 12.5 % (0.0-10.0); NEUT # 4.3 K/uL (1.8-7.0); NEUT % 53.6 % (50.0-75.0); NRBC % 0.2 % (0.0-2.0); PLATELET COUNT 167 K/uL (130-400); RBC 3.34 Mil/uL (3.80-5.20); WHITE BLOOD COUNT 8.1 K/uL (4.8-10.8)
[2018-10-12 06:52] LABS: ALB/GLOB RATIO 1.1 (1.0-2.1); ALBUMIN 3.1 g/dL (3.5-5.0); CALCIUM 7.7 mg/dl (8.6-10.4)
--- NOTE | 2018-10-12 09:08 | CP.PCM.PN ---
Subjective - Date & Time of Evaluation Date of Evaluation: 10/12/18 Time of Evaluation: 06:50 - Subjective Subjective: Surgery Progress note. Dr. Blank Pt seen and examined at bedside. No acute events overnight. Still intubated and sedated. Permacath in place, not been used for dialysis yet. Objective - Vital Signs/Intake and Output Vital Signs (last 24 hours): Temp Pulse Resp BP Pulse Ox 98.2 F 63 14 177/66 H 99 10/12/18 08:00 10/12/18 08:17 10/12/18 08:17 10/12/18 08:17 10/12/18 08:17 Intake and Output: 10/12/18 10/12/18 06:59 18:59 Intake Total 724.4 83.7 Balance 724.4 83.7 - Medications Medications: Current Medications Acetaminophen (Tylenol 325mg Tab) 650 mg PO Q6H PRN PRN Reason: Pain, Mild (1-3) Last Admin: 10/06/18 11:15 Dose: 650 mg Acetaminophen (Tylenol 325mg Tab) 650 mg PO Q6 PRN PRN Reason: pain+fever Last Admin: 10/09/18 09:59 Dose: 650 mg Aspirin (Aspirin Chewable) 81 mg PO DAILY [facility] Last Admin: 10/11/18 09:39 Dose: Not Given Carvedilol (Coreg) 3.125 mg PO BID [facility] Last Admin: 10/11/18 18:20 Dose: Not Given Epoetin Dedrick (Procrit) 10,000 unit IV TTS [facility] Last Admin: 10/11/18 10:50 Dose: 10,000 unit Heparin Sodium (Porcine) (Heparin) 5,000 units SC Q12 [facility] Last Admin: 10/11/18 21:49 Dose: 5,000 units Hydralazine HCl (Apresoline) 25 mg PO BID [facility] Hydrocortisone (Cortef) 5 mg PO DAILY [facility] Last Admin: 10/11/18 09:39 Dose: 5 mg Ferric Sodium Gluconate Complex 125 mg/ Sodium Chloride 110 mls @ 110 mls/hr IVPB DAILY [facility] Stop: 10/14/18 10:01 Last Admin: 10/11/18 09:40 Dose: 110 mls/hr Propofol (Diprivan) 1,000 mg in 100 mls @ 2.735 mls/hr IV .Q24H PRN; Protocol PRN Reason: TITRATE PER MD ORDER Last Admin: 10/12/18 03:15 Dose: 25 mcg/kg/min, 13.676 mls/hr Piperacillin Sod/Tazobactam Sod (Zosyn 2.25 Gm Iv Premix) 2.25 gm in 50 mls @ 100 mls/hr IVPB Q8 [facility]; Protocol Last Admin: 10/12/18 05:17 Dose: 100 mls/hr Vancomycin HCl 1 gm/ Sodium (Chloride) 250 mls @ 166.7 mls/hr IVPB Q24H [facility]; Protocol Last Admin: 10/11/18 14:56 Dose: 166.7 mls/hr Insulin Detemir (Levemir) [address] [facility] Last Admin: 10/11/18 21:50 Dose: 25 u Insulin Human Regular (Novolin R) 0 unit SC Q6H [facility]; Protocol Last Admin: 10/12/18 06:23 Dose: 1 u Levetiracetam (Keppra) 750 mg PO BID [facility] Last Admin: 10/11/18 18:19 Dose: 750 mg Levothyroxine Sodium (Synthroid) 50 mcg PO 0600 [facility] Last Admin: 10/12/18 05:17 Dose: 50 mcg Pantoprazole Sodium (Protonix Susp) 40 mg PO 0600 [facility] Last Admin: 10/12/18 05:16 Dose: 40 mg Rosuvastatin Calcium (Crestor) [address] [facility] Last Admin: 10/11/18 21:50 Dose: 10 mg - Labs Labs: 10/12/18 06:21 10/12/18 06:21 PT 13.9 SECONDS (9.7-12.2) H 10/06/18 21:04 INR 1.3 10/06/18 21:04 APTT 45 SECONDS (21-34) H D 10/06/18 21:04 - Constitutional Appears: Chronically Ill - Head Exam Head Exam: ATRAUMATIC, NORMAL INSPECTION, NORMOCEPHALIC - Eye Exam Eye Exam: EOMI, Normal appearance. absent: Scleral icterus - ENT Exam ENT Exam: Mucous Membranes Moist - Respiratory Exam Respiratory Exam: NORMAL BREATHING PATTERN. absent: Accessory Muscle Use Additional comments: Intubated - GI/Abdominal Exam GI & Abdominal Exam: Soft. absent: Distended, Guarding, Tenderness, Rebound - Extremities Exam Extremities Exam: Normal Inspection. absent: Calf Tenderness Assessment and Plan - Assessment and Plan (Free Text) Assessment: 72yo F s/p Right IJ Permacath placement, new site. POD 1 Plan: - Okay to use Permacath for HD - No further plans from vascular surgery standpoint. - May follow up with Dr. Blank in office as outpatient once medically optimiz ed for long-term permanent HD access - Medical management as per Primary and ICU teams Further recs as per Dr. Abhay Heck PGY2 surgery
[2018-10-12] MEDS: levETIRAcetam 100 mg/ml (5ml) Oral Syringe PO SCH ×2 (09:44→17:55)
[2018-10-12] MEDS: MethylPREDNISolone 40 mg Vial IVP SCH ×2 (09:46→17:54)
--- NOTE | 2018-10-12 10:02 | CP.PCM.PN ---
Subjective - Date & Time of Evaluation Date of Evaluation: 10/11/18 Time of Evaluation: 10:02 - Subjective Subjective: Patient today underwent a permacath catheter placement. Patient did well with the surgery. Patient is on ventilator. Responding to deep stimuli. Currently sedated. I spoke with the patient's family in detail. She also got a hemodialysis this morning. We will continue the current supportive treatment. Plan to extubate tomorrow. And will follow the patient. Spoke with the family, spoke to the ICU team. Labs and x-rays reviewed Time spent 45 minutes Objective - Vital Signs/Intake and Output Vital Signs (last 24 hours): Temp Pulse Resp BP Pulse Ox 98.2 F 63 14 177/66 H 99 10/12/18 08:00 10/12/18 08:17 10/12/18 08:17 10/12/18 08:17 10/12/18 08:17 Intake and Output: 10/12/18 10/12/18 06:59 18:59 Intake Total 724.4 183.7 Balance 724.4 183.7 - Medications Medications: Current Medications Acetaminophen (Tylenol 325mg Tab) 650 mg PO Q6H PRN PRN Reason: Pain, Mild (1-3) Last Admin: 10/06/18 11:15 Dose: 650 mg Acetaminophen (Tylenol 325mg Tab) 650 mg PO Q6 PRN PRN Reason: pain+fever Last Admin: 10/09/18 09:59 Dose: 650 mg Albuterol/Ipratropium (Duoneb 3 Mg/0.5 Mg (3 Ml) Ud) 3 ml INH RQ6 [facility] Aspirin (Aspirin Chewable) 81 mg PO DAILY [facility] Last Admin: 10/12/18 09:47 Dose: 81 mg Epoetin Dedrick (Procrit) 10,000 unit IV TTS [facility] Last Admin: 10/11/18 10:50 Dose: 10,000 unit Heparin Sodium (Porcine) (Heparin) 5,000 units SC Q12 [facility] Last Admin: 10/12/18 09:46 Dose: 5,000 units Hydralazine HCl (Apresoline) 25 mg PO BID [facility] Hydralazine HCl (Apresoline) 25 mg PO Q6 PRN PRN Reason: systolic blood pressure > 140 Last Admin: 10/12/18 09:47 Dose: 25 mg Ferric Sodium Gluconate Complex 125 mg/ Sodium Chloride 110 mls @ 110 mls/hr IVPB DAILY [facility] Stop: 10/14/18 10:01 Last Admin: 10/11/18 09:40 Dose: 110 mls/hr Propofol (Diprivan) 1,000 mg in 100 mls @ 2.735 mls/hr IV .Q24H PRN; Protocol PRN Reason: TITRATE PER MD ORDER Last Admin: 10/12/18 09:47 Dose: 25 mcg/kg/min, 13.676 mls/hr Piperacillin Sod/Tazobactam Sod (Zosyn 2.25 Gm Iv Premix) 2.25 gm in 50 mls @ 100 mls/hr IVPB Q8 [facility]; Protocol Last Admin: 10/12/18 05:17 Dose: 100 mls/hr Dexmedetomidine HCl 200 mcg/ (Sodium Chloride) 50 mls @ 4.38 mls/hr IV TITR PRN; Protocol PRN Reason: Agitation Vancomycin HCl 1 gm/ Sodium (Chloride) 250 mls @ 166.7 mls/hr IVPB TTS [facility]; Pro tocol Insulin Detemir (Levemir) 25 unit SC [facility] Last Admin: 10/11/18 21:50 Dose: 25 u Insulin Human Regular (Novolin R) 0 unit SC Q6H [facility]; Protocol Last Admin: 10/12/18 06:23 Dose: 1 u Levetiracetam (Keppra) 750 mg PO BID [facility] Last Admin: 10/12/18 09:44 Dose: 750 mg Levothyroxine Sodium (Synthroid) 50 mcg PO 0600 [facility] Last Admin: 10/12/18 05:17 Dose: 50 mcg Methylprednisolone (Solu-Medrol) 40 mg IVP Q8H [facility] Stop: 10/14/18 02:01 Last Admin: 10/12/18 09:46 Dose: 40 mg Pantoprazole Sodium (Protonix Susp) 40 mg PO 0600 [facility] Last Admin: 10/12/18 05:16 Dose: 40 mg Rosuvastatin Calcium (Crestor) 10 mg PO HS [facility] Last Admin: 10/11/18 21:50 Dose: 10 mg - Labs Labs: 10/12/18 06:21 10/12/18 06:21 PT 13.9 SECONDS (9.7-12.2) H 10/06/18 21:04 INR 1.3 10/06/18 21:04 APTT 45 SECONDS (21-34) H D 10/06/18 21:04 Assessment and Plan (1) Acute on chronic renal failure Status: Acute (2) Diabetic nephropathy associated with type 2 diabetes mellitus Status: Acute (3) Uremia, acute Status: Acute
[2018-10-12 10:12] LABS: BANDS 6 % (0-2); BASOPHIL 1 % (0-2); EOSINOPHIL 13 % (0-4); LYMPHOCYTE 17 % (20-40); METAMYELOCYTE 1 % (0-0); MONOCYTE 7 % (0-10); MYELOCYTE 4 % (0-0); NEUTROPHIL 51 % (50-75); TOTAL CELLS COUNTED 100
[2018-10-12 10:13] LABS: ANISOCYTOSIS SLIGHT; HYPOCHROMIC SLIGHT; MICROCYTOSIS SLIGHT; PLATELET ESTIMATE NORMAL (NORMAL); POIKILOCYTOSIS SLIGHT; POLYCHROMIC SLIGHT; TARGET CELLS SLIGHT; TEARDROP CELLS SLIGHT
[2018-10-12 10:14] LABS: GIANT PLATELETS PRESENT; LARGE PLATELETS PRESENT
[2018-10-12 10:16] LABS: ARTERIAL BLOOD GAS HCO3 26.2 mmol/L (21-28); ARTERIAL BLOOD GAS O2 SAT 95.4 % (95-98); ARTERIAL BLOOD GAS PCO2 55 mm/Hg (35-45); ARTERIAL BLOOD GAS PH 7.33 (7.35-7.45); ARTERIAL BLOOD GAS PO2 66 mm/Hg (80-100); ARTERIAL BLOOD GAS TCO2 30.7 mmol/L (22-28)
[2018-10-12] MEDS: Ferric Sodium Gluconat Complex 125 MG in Sodium Chloride 0.9% 100 ML IVPB SCH (10:24)
--- NOTE | 2018-10-12 12:21 | CP.PCM.PN ---
Subjective - Date & Time of Evaluation Date of Evaluation: 10/12/18 Time of Evaluation: 12:18 - Subjective Subjective: s/p dialysis 10/11- UF 2000ml s/p permcath insertion BP stable- no pressors Remains vented, sedated labs reviewed- stable Objective - Vital Signs/Intake and Output Vital Signs (last 24 hours): Temp Pulse Resp BP Pulse Ox 98.4 F 58 L 14 143/60 100 10/12/18 12:00 10/12/18 12:03 10/12/18 09:00 10/12/18 12:03 10/12/18 12:03 Intake and Output: 10/12/18 10/12/18 06:59 18:59 Intake Total 724.4 514.8 Balance 724.4 514.8 - Medications Medications: Current Medications Acetaminophen (Tylenol 325mg Tab) 650 mg PO Q6H PRN PRN Reason: Pain, Mild (1-3) Last Admin: 10/06/18 11:15 Dose: 650 mg Acetaminophen (Tylenol 325mg Tab) 650 mg PO Q6 PRN PRN Reason: pain+fever Last Admin: 10/09/18 09:59 Dose: 650 mg Albuterol/Ipratropium (Duoneb 3 Mg/0.5 Mg (3 Ml) Ud) 3 ml INH RQ6 [facility] Aspirin (Aspirin Chewable) 81 mg PO DAILY [facility] Last Admin: 10/12/18 09:47 Dose: 81 mg Epoetin Dedrick (Procrit) 10,000 unit IV TTS [facility] Last Admin: 10/11/18 10:50 Dose: 10,000 unit Heparin Sodium (Porcine) (Heparin) 5,000 units SC Q12 [facility] Last Admin: 10/12/18 09:46 Dose: 5,000 units Hydralazine HCl (Apresoline) 25 mg PO BID [facility] Hydralazine HCl (Apresoline) 25 mg PO Q6 PRN PRN Reason: systolic blood pressure > 140 Last Admin: 10/12/18 09:47 Dose: 25 mg Ferric Sodium Gluconate Complex 125 mg/ Sodium Chloride 110 mls @ 110 mls/hr IVPB DAILY [facility] Stop: 10/14/18 10:01 Last Admin: 10/12/18 10:24 Dose: 110 mls/hr Propofol (Diprivan) 1,000 mg in 100 mls @ 2.735 mls/hr IV .Q24H PRN; Protocol PRN Reason: TITRATE PER MD ORDER Last Admin: 10/12/18 09:47 Dose: 25 mcg/kg/min, 13.676 mls/hr Piperacillin Sod/Tazobactam Sod (Zosyn 2.25 Gm Iv Premix) 2.25 gm in 50 mls @ 100 mls/hr IVPB Q8 [facility]; Protocol Last Admin: 10/12/18 05:17 Dose: 100 mls/hr Dexmedetomidine HCl 200 mcg/ (Sodium Chloride) 50 mls @ 4.38 mls/hr IV TITR PRN; Protocol PRN Reason: Agitation Vancomycin HCl 1 gm/ Sodium (Chloride) 250 mls @ 166.7 mls/hr IVPB TTS [facility]; Protocol Insulin Detemir (Levemir) 25 unit SC HS [facility] Last Admin: 10/11/18 21:50 Dose: 25 u Insulin Human Regular (Novolin R) 0 unit SC Q6H [facility]; Protocol Last Admin: 10/12/18 11:50 Dose: 2 u Levetiracetam (Keppra) 750 mg PO BID [facility] Last Admin: 10/12/18 09:44 Dose: 750 mg Levothyroxine Sodium (Synthroid) 50 mcg PO 0600 [facility] Last Admin: 10/12/18 05:17 Dose: 50 mcg Methylprednisolone (Solu-Medrol) 40 mg IVP Q8H [facility] Stop: 10/14/18 02:01 Last Admin: 10/12/18 09:46 Dose: 40 mg Pantoprazole Sodium (Protonix Susp) 40 mg PO 0600 [facility] Last Admin: 10/12/18 05:16 Dose: 40 mg Rosuvastatin Calcium (Crestor) 10 mg PO HS [facility] Last Admin: 10/11/18 21:50 Dose: 10 mg - Labs Labs: 10/12/18 06:21 10/12/18 06:21 PT 13.9 SECONDS (9.7-12.2) H 10/06/18 21:04 INR 1.3 10/06/18 21:04 APTT 45 SECONDS (21-34) H D 10/06/18 21:04 - Constitutional Appears: No Acute Distress, Chronically Ill - Head Exam Head Exam: ATRAUMATIC, NORMAL INSPECTION - Eye Exam Eye Exam: Normal appearance - Neck Exam Neck Exam: Normal Inspection. absent: Tenderness - Respiratory Exam Respiratory Exam: Clear to Ausculation Bilateral, Respiratory Distress - Cardiovascular Exam Cardiovascular Exam: REGULAR RHYTHM, +S1 - GI/Abdominal Exam GI & Abdominal Exam: Soft. absent: Tenderness - Extremities Exam Extremities Exam: Normal Inspection. absent: Tenderness - Neurological Exam Neurological Exam: Altered - Skin Skin Exam: Dry, Warm Assessment and Plan (1) ESRD (end stage renal disease) Status: Acute (2) Diabetic nephropathy associated with type 2 diabetes mellitus Status: Acute (3) CAD (coronary artery disease) Status: Acute (4) HTN (hypertension) Status: Acute - Assessment and Plan (Free Text) Plan: Dialysis in AM, TTS vent management same meds eventual av access when stable
--- NOTE | 2018-10-12 12:22 | CP.CCUPN ---
<Michelle Diane - Last Filed: 10/12/18 12:18> CCU Subjective - Physician Review Subjective (Free Text): Critical Care Progress Note for Dr. Tomlinson's service Patient seen and examined at bedside. Patient inubated. Limited ROS. s/p permacath POD 1. Likely anoxic brain injury. Pending neuro evaluation for AMS update. Critical Care Time Spent (in minutes): 35 CCU Objective - Vital Signs / Intake & Output Vital Signs (Last 4 hours): Vital Signs Temp Pulse Resp BP Pulse Ox 10/12/18 12:03 58 L 143/60 100 10/12/18 12:00 98.4 F 59 L 100 10/12/18 11:02 59 L 125/50 L 100 10/12/18 11:00 60 127/53 L 100 10/12/18 10:03 67 171/79 H 100 10/12/18 10:00 72 100 10/12/18 09:18 68 115/67 98 10/12/18 09:03 85 97/62 L 98 10/12/18 09:00 70 14 100 Intake and Output (Last 8hrs): Intake & Output 10/11/18 10/12/18 10/12/18 22:59 06:59 14:59 Intake Total 679.6 503.3 514.8 Balance 679.6 503.3 514.8 Weight 193 lb Intake: IV 100 100 100 Intake, IV Amount 359.6 123.3 154.8 Right Distal Port Femoral 100 Right Medial Port Femoral 250 0 0 Right Proximal Port 109.6 123.3 54.8 Femoral Oral 80 180 Tube Feeding 140 280 80 Other: # Voids Urine, Voided 1 0 0 # Bowel Movements 0 1 0 - Physical Exam Physical Exam Limitations: Positive for: Altered Mental Status Head: Positive for: Atraumatic, Normocephalic Extroacular Muscles: Positive for: EOMI (dropping eyelid left) Conjunctiva: Positive for: Normal Mouth: Positive for: Dry, Other (intubated ETT in place) Respiratory/Chest: Positive for: Good Air Exchange. Negative for: Respiratory Distress Cardiovascular: Positive for: Regular Rate and Rhythm, Normal S1, S2 Abdomen: Positive for: Normal Bowel Sounds. Negative for: Tenderness, Distention, Rebound, Guarding Upper Extremity: Positive for: Normal Inspection. Negative for: Cyanosis Lower Extremity: Positive for: Normal Inspection Neurological: Positive for: Other (unable to assess due to patient condition). Negative for: GCS=15 Skin: Positive for: Warm, Dry, Normal Color, Other (permacath in place, right femoral TLC) Psychiatric: Negative for: Alert, Oriented x 3 - Medications Active Medications: Active Medications Generic Name Dose Route Start Last Admin Trade Name Freq PRN Reason Stop Dose Admin Acetaminophen 650 mg 09/29/18 08:30 10/06/18 11:15 Tylenol 325mg Tab PO 650 mg Q6H PRN Administration Pain, Mild (1-3) Acetaminophen 650 mg 10/08/18 10:08 10/09/18 09:59 Tylenol 325mg Tab PO 650 mg Q6 PRN Administration pain+fever Albuterol/Ipratropium 3 ml 10/12/18 14:00 Duoneb 3 Mg/0.5 Mg (3 Ml) Ud INH RQ6 JOCELYN Aspirin 81 mg 10/08/18 10:00 10/12/18 09:47 Aspirin Chewable PO 81 mg DAILY JOCELYN Administration Epoetin Dedrick 10,000 unit 10/04/18 10:00 10/11/18 10:50 Procrit IV 10,000 unit TTS JOCELYN Administration Heparin Sodium (Porcine) 5,000 units 10/11/18 22:00 10/12/18 09:46 Heparin SC 5,000 units Q12 JOCELYN Administration Hydralazine HCl 25 mg 10/08/18 10:46 Apresoline PO BID JOCELYN Hydralazine HCl 25 mg 10/12/18 08:51 10/12/18 09:47 Apresoline PO 25 mg Q6 PRN Administration systolic blood pressure > 140 Ferric Sodium Gluconate 110 mls @ 110 mls/hr 10/06/18 10:00 10/12/18 10:24 Complex 125 mg/ Sodium IVPB 10/14/18 10:01 110 mls/hr Chloride DAILY JOCELYN Administration Propofol 1,000 mg in 100 mls @ 2.735 mls/hr 10/06/18 00:22 10/12/18 09:47 Diprivan IV 25 mcg/kg/min .Q24H PRN 13.676 mls/hr TITRATE PER MD ORDER Administration Protocol 5 MCG/KG/MIN Piperacillin Sod/Tazobactam Sod 2.25 gm in 50 mls @ 100 mls/hr 10/06/18 14:00 10/12/18 05:17 Zosyn 2.25 Gm Iv Premix IVPB 100 mls/hr Q8 JOCELYN Administration Protocol Dexmedetomidine HCl 200 mcg/ 50 mls @ 4.38 mls/hr 10/12/18 09:02 Sodium Chloride IV TITR PRN Agitation Protocol 0.2 MCG/KG/HR Vancomycin HCl 1 gm/ Sodium 250 mls @ 166.7 mls/hr 10/13/18 10:00 Chloride IVPB TTS JOCELYN Protocol Insulin Detemir 25 unit 10/08/18 22:00 10/11/18 21:50 Levemir SC 25 u HS JOCELYN Administration Insulin Human Regular 0 unit 10/06/18 12:00 10/12/18 11:50 Novolin R SC 2 u Q6H JOCELYN Administration Protocol Levetiracetam 750 mg 10/08/18 10:00 10/12/18 09:44 Keppra PO 750 mg BID JOCELYN Administration Levothyroxine Sodium 50 mcg 09/29/18 08:00 10/12/18 05:17 Synthroid PO 50 mcg 0600 JOCELYN Administration Methylprednisolone 40 mg 10/12/18 10:00 10/12/18 09:46 Solu-Medrol IVP 10/14/18 02:01 40 mg Q8H JOCELYN Administration Pantoprazole Sodium 40 mg 10/09/18 06:00 10/12/18 05:16 Protonix Susp PO 40 mg 0600 JOCELYN Administration Rosuvastatin Calcium 10 mg 09/30/18 22:00 10/11/18 21:50 Crestor PO 10 mg HS JOCELYN Administration - Patient Studies Lab Studies: Microbiology Studies 10/07/18 20:00 Blood Culture - Preliminary Blood-Venous NO GROWTH AFTER 4 DAYS 10/07/18 20:20 Blood Culture - Preliminary Blood-Venous NO GROWTH AFTER 4 DAYS Lab Studies 10/12/18 10/12/18 10/12/18 Range/Units 11:47 10:13 06:21 WBC (4.8-10.8) K/uL RBC (3.80-5.20) Mil/uL Hgb (11.0-16.0) g/dL Hct (34.0-47.0) % MCV (81.0-99.0) fL MCH (27.0-31.0) pg MCHC (33.0-37.0) g/dL RDW (11.5-14.5) % Plt Count (130-400) K/uL MPV (7.2-11.7) fL Neut % (Auto) (50.0-75.0) % Lymph % (Auto) (20.0-40.0) % Hendry % (Auto) (0.0-10.0) % Eos % (Auto) (0.0-4.0) % Baso % (Auto) (0.0-2.0) % Neut # (Auto) (1.8-7.0) K/uL Lymph # (Auto) (1.0-4.3) K/uL Hendry # (Auto) (0.0-0.8) K/uL Eos # (Auto) (0.0-0.7) K/uL Baso # (Auto) (0.0-0.2) K/uL Neutrophils % (Manual) (50-75) % Band Neutrophils % (0-2) % Lymphocytes % (Manual) (20-40) % Monocytes % (Manual) (0-10) % Eosinophils % (Manual) (0-4) % Basophils % (Manual) (0-2) % Metamyelocytes % (0-0) % Myelocytes % (0-0) % Platelet Estimate (NORMAL) Large Platelets Giant Platelets Polychromasia Hypochromasia (manual) Poikilocytosis (manual Anisocytosis (manual) Microcytosis (manual) Macrocytosis (manual) Target Cells Tear Drop Cells Puncture Site Rba pCO2 55 H (35-45) mm/Hg pO2 66 L (80-100) mm/Hg HCO3 26.2 (21-28) mmol/L ABG pH 7.33 L (7.35-7.45) ABG Total CO2 30.7 H (22-28) mmol/L ABG O2 Saturation 95.4 (95-98) % ABG Base Excess 1.9 (-2.0-3.0) mmol/L ABG Hemoglobin (11.7-17.4) g/dL ABG Carboxyhemoglobin (0.5-1.5) % POC ABG HHb (Measured) (0.0-5.0) % ABG Methemoglobin (0.0-3.0) % Jimenez Test Na ABG Potassium 3.3 L (3.6-5.2) mmol/L A-a O2 Difference 115.0 mm/Hg Respiratory Index 1.7 Hgb O2 Saturation (95.0-98.0) % Glucose 173 H (65-105) mg/dl Lactate 0.6 L (0.7-2.1) mmol/L Vent Mode Cpap Mechanical Rate 30 FiO2 35.0 % Tidal Volume PEEP Pressure Support 18 CPAP 5 Sodium 139.0 137 (132-148) mmol/L Potassium 4.0 (3.6-5.2) mmol/L Chloride 105.0 98 (98-107) mmol/L Carbon Dioxide 30 (22-30) mmol/L Anion Gap 13 (10-20) BUN 20 H (7-17) mg/dL Creatinine 2.9 H (0.7-1.2) mg/dL Est GFR ( Amer) 19 Est GFR (Non-Af Amer) 16 POC Glucose (mg/dL) 204 H (65-110) mg/dL Random Glucose 167 H D (65-105) mg/dL Calcium 7.7 L (8.6-10.4) mg/dl Phosphorus 3.6 (2.5-4.5) mg/dL Magnesium 1.9 (1.6-2.3) mg/dL Total Bilirubin 0.3 (0.2-1.3) mg/dL AST 24 (14-36) U/L ALT 31 (9-52) U/L Alkaline Phosphatase 116 (38-126) U/L Total Protein 5.9 L (6.3-8.3) g/dL Albumin 3.1 L (3.5-5.0) g/dL Globulin 2.8 (2.2-3.9) gm/dL Albumin/Globulin Ratio 1.1 (1.0-2.1) Arterial Blood Potassium 3.3 L (3.6-5.2) mmol/L 10/12/18 10/12/18 10/12/18 Range/Units 06:21 06:02 05:21 WBC 8.1 (4.8-10.8) K/uL RBC 3.34 L (3.80-5.20) Mil/uL Hgb 9.1 L (11.0-16.0) g/dL Hct 29.1 L (34.0-47.0) % MCV 87.0 (81.0-99.0) fL MCH 27.3 (27.0-31.0) pg MCHC 31.4 L (33.0-37.0) g/dL RDW 15.0 H (11.5-14.5) % Plt Count 167 (130-400) K/uL MPV 10.0 (7.2-11.7) fL Neut % (Auto) 53.6 (50.0-75.0) % Lymph % (Auto) 16.0 L (20.0-40.0) % Hendry % (Auto) 12.5 H (0.0-10.0) % Eos % (Auto) 17.3 H (0.0-4.0) % Baso % (Auto) 0.6 (0.0-2.0) % Neut # (Auto) 4.3 (1.8-7.0) K/uL Lymph # (Auto) 1.3 (1.0-4.3) K/uL Hendry # (Auto) 1.0 H (0.0-0.8) K/uL Eos # (Auto) 1.4 H (0.0-0.7) K/uL Baso # (Auto) 0.0 (0.0-0.2) K/uL Neutrophils % (Manual) 51 (50-75) % Band Neutrophils % 6 H (0-2) % Lymphocytes % (Manual) 17 L (20-40) % Monocytes % (Manual) 7 (0-10) % Eosinophils % (Manual) 13 H (0-4) % Basophils % (Manual) 1 (0-2) % Metamyelocytes % 1 H (0-0) % Myelocytes % 4 H (0-0) % Platelet Estimate Normal (NORMAL) Large Platelets Present Giant Platelets Present Polychromasia Slight Hypochromasia (manual) Slight Poikilocytosis (manual Slight Anisocytosis (manual) Slight Microcytosis (manual) Slight Macrocytosis (manual) Slight Target Cells Slight Tear Drop Cells Slight Puncture Site R brac pCO2 50 H (35-45) mm/Hg pO2 144 H (80-100) mm/Hg HCO3 28.0 (21-28) mmol/L ABG pH 7.38 (7.35-7.45) ABG Total CO2 31.1 H (22-28) mmol/L ABG O2 Saturation 99.3 H (95-98) % ABG Base Excess 3.9 H (-2.0-3.0) mmol/L ABG Hemoglobin 8.5 L (11.7-17.4) g/dL ABG Carboxyhemoglobin 2.0 H (0.5-1.5) % POC ABG HHb (Measured) 0.7 (0.0-5.0) % ABG Methemoglobin 1.0 (0.0-3.0) % Jimenez Test Na ABG Potassium (3.6-5.2) mmol/L A-a O2 Difference 79.0 mm/Hg Respiratory Index 0.5 Hgb O2 Saturation 96.3 (95.0-98.0) % Glucose (65-105) mg/dl Lactate (0.7-2.1) mmol/L Vent Mode Prvc Mechanical Rate 14 FiO2 40.0 % Tidal Volume 450 PEEP 5 Pressure Support CPAP Sodium (132-148) mmol/L Potassium (3.6-5.2) mmol/L Chloride (98-107) mmol/L Carbon Dioxide (22-30) mmol/L Anion Gap (10-20) BUN (7-17) mg/dL Creatinine (0.7-1.2) mg/dL Est GFR ( Amer) Est GFR (Non-Af Amer) POC Glucose (mg/dL) 173 H (65-110) mg/dL Random Glucose (65-105) mg/dL Calcium (8.6-10.4) mg/dl Phosphorus (2.5-4.5) mg/dL Magnesium (1.6-2.3) mg/dL Total Bilirubin (0.2-1.3) mg/dL AST (14-36) U/L ALT (9-52) U/L Alkaline Phosphatase (38-126) U/L Total Protein (6.3-8.3) g/dL Albumin (3.5-5.0) g/dL Globulin (2.2-3.9) gm/dL Albumin/Globulin Ratio (1.0-2.1) Arterial Blood Potassium (3.6-5.2) mmol/L 10/11/18 10/11/18 10/11/18 Range/Units 23:25 17:54 11:16 WBC (4.8-10.8) K/uL RBC (3.80-5.20) Mil/uL Hgb (11.0-16.0) g/dL Hct (34.0-47.0) % MCV (81.0-99.0) fL MCH (27.0-31.0) pg MCHC (33.0-37.0) g/dL RDW (11.5-14.5) % Plt Count (130-400) K/uL MPV (7.2-11.7) fL Neut % (Auto) (50.0-75.0) % Lymph % (Auto) (20.0-40.0) % Hendry % (Auto) (0.0-10.0) % Eos % (Auto) (0.0-4.0) % Baso % (Auto) (0.0-2.0) % Neut # (Auto) (1.8-7.0) K/uL Lymph # (Auto) (1.0-4.3) K/uL Hendry # (Auto) (0.0-0.8) K/uL Eos # (Auto) (0.0-0.7) K/uL Baso # (Auto) (0.0-0.2) K/uL Neutrophils % (Manual) (50-75) % Band Neutrophils % (0-2) % Lymphocytes % (Manual) (20-40) % Monocytes % (Manual) (0-10) % Eosinophils % (Manual) (0-4) % Basophils % (Manual) (0-2) % Metamyelocytes % (0-0) % Myelocytes % (0-0) % Platelet Estimate (NORMAL) Large Platelets Giant Platelets Polychromasia Hypochromasia (manual) Poikilocytosis (manual Anisocytosis (manual) Microcytosis (manual) Macrocytosis (manual) Target Cells Tear Drop Cells Puncture Site pCO2 (35-45) mm/Hg pO2 (80-100) mm/Hg HCO3 (21-28) mmol/L ABG pH (7.35-7.45) ABG Total CO2 (22-28) mmol/L ABG O2 Saturation (95-98) % ABG Base Excess (-2.0-3.0) mmol/L ABG Hemoglobin (11.7-17.4) g/dL ABG Carboxyhemoglobin (0.5-1.5) % POC ABG HHb (Measured) (0.0-5.0) % ABG Methemoglobin (0.0-3.0) % Jimenez Test ABG Potassium (3.6-5.2) mmol/L A-a O2 Difference mm/Hg Respiratory Index Hgb O2 Saturation (95.0-98.0) % Glucose (65-105) mg/dl Lactate (0.7-2.1) mmol/L Vent Mode Mechanical Rate FiO2 % Tidal Volume PEEP Pressure Support CPAP Sodium (132-148) mmol/L Potassium (3.6-5.2) mmol/L Chloride (98-107) mmol/L Carbon Dioxide (22-30) mmol/L Anion Gap (10-20) BUN (7-17) mg/dL Creatinine (0.7-1.2) mg/dL Est GFR ( Amer) Est GFR (Non-Af Amer) POC Glucose (mg/dL) 169 H 151 H 153 H (65-110) mg/dL Random Glucose (65-105) mg/dL Calcium (8.6-10.4) mg/dl Phosphorus (2.5-4.5) mg/dL Magnesium (1.6-2.3) mg/dL Total Bilirubin (0.2-1.3) mg/dL AST (14-36) U/L ALT (9-52) U/L Alkaline Phosphatase (38-126) U/L Total Protein (6.3-8.3) g/dL Albumin (3.5-5.0) g/dL Globulin (2.2-3.9) gm/dL Albumin/Globulin Ratio (1.0-2.1) Arterial Blood Potassium (3.6-5.2) mmol/L Laboratory Results - last 24 hr 10/11/18 10/11/18 10/11/18 11:16 17:54 23:25 WBC RBC Hgb Hct MCV MCH MCHC RDW Plt Count MPV Neut % (Auto) Lymph % (Auto) Hendry % (Auto) Eos % (Auto) Baso % (Auto) Neut # (Auto) Lymph # (Auto) Hendry # (Auto) Eos # (Auto) Baso # (Auto) Neutrophils % (Manual) Band Neutrophils % Lymphocytes % (Manual) Monocytes % (Manual) Eosinophils % (Manual) Basophils % (Manual) Metamyelocytes % Myelocytes % Platelet Estimate Large Platelets Giant Platelets Polychromasia Hypochromasia (manual) Poikilocytosis (manual Anisocytosis (manual) Microcytosis (manual) Macrocytosis (manual) Target Cells Tear Drop Cells Puncture Site pCO2 pO2 HCO3 ABG pH ABG Total CO2 ABG O2 Saturation ABG Base Excess ABG Hemoglobin ABG Carboxyhemoglobin POC ABG HHb (Measured) ABG Methemoglobin Jimenez Test ABG Potassium A-a O2 Difference Respiratory Index Hgb O2 Saturation Glucose Lactate Vent Mode Mechanical Rate FiO2 Tidal Volume PEEP Pressure Support CPAP Sodium Potassium Chloride Carbon Dioxide Anion Gap BUN Creatinine Est GFR ( Amer) Est GFR (Non-Af Amer) POC Glucose (mg/dL) 153 H 151 H 169 H Random Glucose Calcium Phosphorus Magnesium Total Bilirubin AST ALT Alkaline Phosphatase Total Protein Albumin Globulin Albumin/Globulin Ratio Arterial Blood Potassium 10/12/18 10/12/18 10/12/18 05:21 06:02 06:21 WBC 8.1 RBC 3.34 L Hgb 9.1 L Hct 29.1 L MCV 87.0 MCH 27.3 MCHC 31.4 L RDW 15.0 H Plt Count 167 MPV 10.0 Neut % (Auto) 53.6 Lymph % (Auto) 16.0 L Hendry % (Auto) 12.5 H Eos % (Auto) 17.3 H Baso % (Auto) 0.6 Neut # (Auto) 4.3 Lymph # (Auto) 1.3 Hendry # (Auto) 1.0 H Eos # (Auto) 1.4 H Baso # (Auto) 0.0 Neutrophils % (Manual) 51 Band Neutrophils % 6 H Lymphocytes % (Manual) 17 L Monocytes % (Manual) 7 Eosinophils % (Manual) 13 H Basophils % (Manual) 1 Metamyelocytes % 1 H Myelocytes % 4 H Platelet Estimate Normal Large Platelets Present Giant Platelets Present Polychromasia Slight Hypochromasia (manual) Slight Poikilocytosis (manual Slight Anisocytosis (manual) Slight Microcytosis (manual) Slight Macrocytosis (manual) Slight Target Cells Slight Tear Drop Cells Slight Puncture Site R brac pCO2 50 H pO2 144 H HCO3 28.0 ABG pH 7.38 ABG Total CO2 31.1 H ABG O2 Saturation 99.3 H ABG Base Excess 3.9 H ABG Hemoglobin 8.5 L ABG Carboxyhemoglobin 2.0 H POC ABG HHb (Measured) 0.7 ABG Methemoglobin 1.0 Jimenez Test Na ABG Potassium A-a O2 Difference 79.0 Respiratory Index 0.5 Hgb O2 Saturation 96.3 Glucose Lactate Vent Mode Prvc Mechanical Rate 14 FiO2 40.0 Tidal Volume 450 PEEP 5 Pressure Support CPAP Sodium Potassium Chloride Carbon Dioxide Anion Gap BUN Creatinine Est GFR ( Amer) Est GFR (Non-Af Amer) POC Glucose (mg/dL) 173 H Random Glucose Calcium Phosphorus Magnesium Total Bilirubin AST ALT Alkaline Phosphatase Total Protein Albumin Globulin Albumin/Globulin Ratio Arterial Blood Potassium 10/12/18 10/12/18 10/12/18 06:21 10:13 11:47 WBC RBC Hgb Hct MCV MCH MCHC RDW Plt Count MPV Neut % (Auto) Lymph % (Auto) Hendry % (Auto) Eos % (Auto) Baso % (Auto) Neut # (Auto) Lymph # (Auto) Hendry # (Auto) Eos # (Auto) Baso # (Auto) Neutrophils % (Manual) Band Neutrophils % Lymphocytes % (Manual) Monocytes % (Manual) Eosinophils % (Manual) Basophils % (Manual) Metamyelocytes % Myelocytes % Platelet Estimate Large Platelets Giant Platelets Polychromasia Hypochromasia (manual) Poikilocytosis (manual Anisocytosis (manual) Microcytosis (manual) Macrocytosis (manual) Target Cells Tear Drop Cells Puncture Site Rba pCO2 55 H pO2 66 L HCO3 26.2 ABG pH 7.33 L ABG Total CO2 30.7 H ABG O2 Saturation 95.4 ABG Base Excess 1.9 ABG Hemoglobin ABG Carboxyhemoglobin POC ABG HHb (Measured) ABG Methemoglobin Jimenez Test Na ABG Potassium 3.3 L A-a O2 Difference 115.0 Respiratory Index 1.7 Hgb O2 Saturation Glucose 173 H Lactate 0.6 L Vent Mode Cpap Mechanical Rate 30 FiO2 35.0 Tidal Volume PEEP Pressure Support 18 CPAP 5 Sodium 137 139.0 Potassium 4.0 Chloride 98 105.0 Carbon Dioxide 30 Anion Gap 13 BUN 20 H Creatinine 2.9 H Est GFR ( Amer) 19 Est GFR (Non-Af Amer) 16 POC Glucose (mg/dL) 204 H Random Glucose 167 H D Calcium 7.7 L Phosphorus 3.6 Magnesium 1.9 Total Bilirubin 0.3 AST 24 ALT 31 Alkaline Phosphatase 116 Total Protein 5.9 L Albumin 3.1 L Globulin 2.8 Albumin/Globulin Ratio 1.1 Arterial Blood Potassium 3.3 L Radiology Impressions: Radiology Impressions Chest X-Ray 10/11/18 14:30 IMPRESSION: New ET tube and tunneled central venous dialysis catheter. No infiltrate. Fingerstick Blood Sugar Results: 204 Review of Systems - Review of Systems Systems not reviewed;Unavailable: Intubated Critical Care Progress Note - Ventilator Checklist Head of Bed 30 Degrees: Yes Daily Sedation Vacation: Yes Daily Assessment of Readiness to Wean: Yes Daily Spontaneous Breathing Trial: Yes PUD Prophalyxis: Yes DVT Prophylaxis: Yes Oral Care with Chlorhexidine Gluconate {CHG}: Yes - Vent Settings MODE:: PRVC TIDAL VOLUME:: 450 RESP RATE:: 14 FIO2:: 40 PEEP:: 5 - Extremities/Vascular Does the Patient have a Central Venous Catheter?: Yes Insertion Site: Femoral Vein Does the Patient need a Central Venous Catheter?: Yes Does the Patient have a Rodriguez Catheter?: Yes Does the Patient need a Rodriguez Catheter?: Yes Catheter Insertion Criteria: Need for accurate measurement of output in critically ill patient - Restraints Justification for Restraints: High risk for self extubation, High risk for removing IV access, High risk for harming self - Prophylaxis GI Prophylaxis GI: PPI - Prophylaxis DVT Prophylaxis DVT: Heparin SQ Assessment/Plan - Assessment and Plan (Free Text) Assessment: Patient is a 72 yo female w/ PMH of CKD5, CHF, CAD s/p stents, pituiatry adenoma s/p resection, DM2 admitted for respiratory and cardiac arrest s/p permacath placement and AVF on 10-05. s/p permacath on 10-11-18; possible AMS due to anoxic brain injury; pending neuro update Neuro Intubated and Sedated on Propofol drip not awake or alert, GCS=3 Keppra CV Hydralazine q6 prn Crestor Aspirin s/p cardiac arrest; code freeze completed Pulm Intubated; Vent settings as per ICU Duoneb q6 Solumedrol q8 6 doses plan for extubation s/p permacath placement GI Tube feedings Protonix Heme EPO w/ Diaylsis Ferric sodium drip Renal ESRD- continue dialysis EPO TTHS Bumex 2mg 1 x permacath placed on 10-11 Endo Levemir Insulin regular Levothyroxine Hydrocortisone Q6 accuechecks ID [id number] on 10-07 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 asp Zosyn Vanc with dialysis (TTHS) DVT ppx: Heparin GI ppx: Protonix Disposition: pending midline placement on right; continue CPAP trials for possible extubation attempt; assess mental status; likely anoxic brain injury GCS 3 PGY-1 Michelle Diane Medical Management d/w Dr. Tomlinson <Chichi Tomlinson - Last Filed: 10/12/18 16:51> CCU Objective - Vital Signs / Intake & Output Vital Signs (Last 4 hours): Vital Signs Pulse Resp BP Pulse Ox 10/12/18 16:09 55 L 14 161/52 H 98 10/12/18 15:36 56 L 184/67 H 100 10/12/18 15:22 56 L 184/71 H 10/12/18 15:03 60 191/70 H 100 10/12/18 15:00 56 L 100 10/12/18 14:32 54 L 189/82 H 97 10/12/18 14:09 65 183/72 H 97 10/12/18 14:03 56 L 179/64 H 99 10/12/18 14:00 73 99 10/12/18 13:03 55 L 164/56 H 100 10/12/18 13:00 53 L 100 Intake and Output (Last 8hrs): Intake & Output 10/12/18 10/12/18 10/12/18 06:59 14:59 22:59 Intake Total 503.3 617.2 20.3 Balance 503.3 617.2 20.3 Weight 193 lb Intake: IV 100 125 5 Intake, IV Amount 123.3 232.2 15.3 Right Distal Port Femoral 150 0 Right Medial Port Femoral 0 0 0 Right Proximal Port 123.3 82.2 15.3 Femoral Oral 180 Tube Feeding 280 80 0 Other: # Voids Urine, Voided 0 0 0 # Bowel Movements 1 0 1 - Medications Active Medications: Active Medications Generic Name Dose Route Start Last Admin Trade Name Freq PRN Reason Stop Dose Admin Acetaminophen 650 mg 09/29/18 08:30 10/06/18 11:15 Tylenol 325mg Tab PO 650 mg Q6H PRN Administration Pain, Mild (1-3) Acetaminophen 650 mg 10/08/18 10:08 10/09/18 09:59 Tylenol 325mg Tab PO 650 mg Q6 PRN Administration pain+fever Albuterol/Ipratropium 3 ml 10/12/18 14:00 10/12/18 13:21 Duoneb 3 Mg/0.5 Mg (3 Ml) Ud INH 3 ml RQ6 JOCELYN Administration Aspirin 81 mg 10/08/18 10:00 10/12/18 09:47 Aspirin Chewable PO 81 mg DAILY JOCELYN Administration Epoetin Dedrick 10,000 unit 10/04/18 10:00 10/11/18 10:50 Procrit IV 10,000 unit TTS JOCELYN Administration Heparin Sodium (Porcine) 5,000 units 10/11/18 22:00 10/12/18 09:46 Heparin SC 5,000 units Q12 JOCELYN Administration Hydralazine HCl 25 mg 10/08/18 10:46 Apresoline PO BID JOCELYN Hydralazine HCl 50 mg 10/12/18 14:15 10/12/18 14:21 Apresoline PO 50 mg Q8H JOCELYN Administration Ferric Sodium Gluconate 110 mls @ 110 mls/hr 10/06/18 10:00 10/12/18 10:24 Complex 125 mg/ Sodium IVPB 10/14/18 10:01 110 mls/hr Chloride DAILY JOCELYN Administration Piperacillin Sod/Tazobactam Sod 2.25 gm in 50 mls @ 100 mls/hr 10/06/18 14:00 10/12/18 13:28 Zosyn 2.25 Gm Iv Premix IVPB 100 mls/hr Q8 JOCELYN Administration Protocol Dexmedetomidine HCl 200 mcg/ 50 mls @ 4.38 mls/hr 10/12/18 09:02 10/12/18 15:30 Sodium Chloride IV 0.4 mcg/kg/hr TITR PRN 8.75 mls/hr Agitation Titration Protocol 0.2 MCG/KG/HR Vancomycin HCl 1 gm/ Sodium 250 mls @ 166.7 mls/hr 10/13/18 10:00 Chloride IVPB TTS JOCELYN Protocol Nitroglycerin/Dextrose 50 mg in 250 mls @ 7.5 mls/hr 10/12/18 16:00 10/12/18 16:09 Nitroglycerin 50 Mg/250 Ml D5w IV 25 mcg/min .Q24H JOCELYN 7.5 mls/hr Administration Protocol 25 MCG/MIN Insulin Detemir 25 unit 10/08/18 22:00 10/11/18 21:50 Levemir SC 25 u HS JOCELYN Administration Insulin Human Regular 0 unit 10/06/18 12:00 10/12/18 11:50 Novolin R SC 2 u Q6H JOCELYN Administration Protocol Levetiracetam 750 mg 10/08/18 10:00 10/12/18 09:44 Keppra PO 750 mg BID JOCELYN Administration Levothyroxine Sodium 50 mcg 09/29/18 08:00 10/12/18 05:17 Synthroid PO 50 mcg 0600 JOCELYN Administration Methylprednisolone 40 mg 10/12/18 10:00 10/12/18 09:46 Solu-Medrol IVP 10/14/18 02:01 40 mg Q8H JOCELYN Administration Nitroglycerin 1 ea 10/12/18 16:00 10/12/18 16:05 Nitro-Bid 2% Oint TOP 1 ea Q6H JOCELYN Administration Pantoprazole Sodium 40 mg 10/09/18 06:00 10/12/18 05:16 Protonix Susp PO 40 mg 0600 JOCELYN Administration Rosuvastatin Calcium 10 mg 09/30/18 22:00 10/11/18 21:50 Crestor PO 10 mg HS JOCELYN Administration - Patient Studies Lab Studies: Microbiology Studies 10/07/18 20:00 Blood Culture - Preliminary Blood-Venous NO GROWTH AFTER 4 DAYS 10/07/18 20:20 Blood Culture - Preliminary Blood-Venous NO GROWTH AFTER 4 DAYS Lab Studies 10/12/18 10/12/18 10/12/18 Range/Units 11:47 10:13 06:21 WBC (4.8-10.8) K/uL RBC (3.80-5.20) Mil/uL Hgb (11.0-16.0) g/dL Hct (34.0-47.0) % MCV (81.0-99.0) fL MCH (27.0-31.0) pg MCHC (33.0-37.0) g/dL RDW (11.5-14.5) % Plt Count (130-400) K/uL MPV (7.2-11.7) fL Neut % (Auto) (50.0-75.0) % Lymph % (Auto) (20.0-40.0) % Hendry % (Auto) (0.0-10.0) % Eos % (Auto) (0.0-4.0) % Baso % (Auto) (0.0-2.0) % Neut # (Auto) (1.8-7.0) K/uL Lymph # (Auto) (1.0-4.3) K/uL Hendry # (Auto) (0.0-0.8) K/uL Eos # (Auto) (0.0-0.7) K/uL Baso # (Auto) (0.0-0.2) K/uL Neutrophils % (Manual) (50-75) % Band Neutrophils % (0-2) % Lymphocytes % (Manual) (20-40) % Monocytes % (Manual) (0-10) % Eosinophils % (Manual) (0-4) % Basophils % (Manual) (0-2) % Metamyelocytes % (0-0) % Myelocytes % (0-0) % Platelet Estimate (NORMAL) Large Platelets Giant Platelets Polychromasia Hypochromasia (manual) Poikilocytosis (manual Anisocytosis (manual) Microcytosis (manual) Macrocytosis (manual) Target Cells Tear Drop Cells Puncture Site Rba pCO2 55 H (35-45) mm/Hg pO2 66 L (80-100) mm/Hg HCO3 26.2 (21-28) mmol/L ABG pH 7.33 L (7.35-7.45) ABG Total CO2 30.7 H (22-28) mmol/L ABG O2 Saturation 95.4 (95-98) % ABG Base Excess 1.9 (-2.0-3.0) mmol/L ABG Hemoglobin (11.7-17.4) g/dL ABG Carboxyhemoglobin (0.5-1.5) % POC ABG HHb (Measured) (0.0-5.0) % ABG Methemoglobin (0.0-3.0) % Jimenez Test Na ABG Potassium 3.3 L (3.6-5.2) mmol/L A-a O2 Difference 115.0 mm/Hg Respiratory Index 1.7 Hgb O2 Saturation (95.0-98.0) % Glucose 173 H (65-105) mg/dl Lactate 0.6 L (0.7-2.1) mmol/L Vent Mode Cpap Mechanical Rate 30 FiO2 35.0 % Tidal Volume PEEP Pressure Support 18 CPAP 5 Sodium 139.0 137 (132-148) mmol/L Potassium 4.0 (3.6-5.2) mmol/L Chloride 105.0 98 (98-107) mmol/L Carbon Dioxide 30 (22-30) mmol/L Anion Gap 13 (10-20) BUN 20 H (7-17) mg/dL Creatinine 2.9 H (0.7-1.2) mg/dL Est GFR ( Amer) 19 Est GFR (Non-Af Amer) 16 POC Glucose (mg/dL) 204 H (65-110) mg/dL Random Glucose 167 H D (65-105) mg/dL Calcium 7.7 L (8.6-10.4) mg/dl Phosphorus 3.6 (2.5-4.5) mg/dL Magnesium 1.9 (1.6-2.3) mg/dL Total Bilirubin 0.3 (0.2-1.3) mg/dL AST 24 (14-36) U/L ALT 31 (9-52) U/L Alkaline Phosphatase 116 (38-126) U/L Total Protein 5.9 L (6.3-8.3) g/dL Albumin 3.1 L (3.5-5.0) g/dL Globulin 2.8 (2.2-3.9) gm/dL Albumin/Globulin Ratio 1.1 (1.0-2.1) Arterial Blood Potassium 3.3 L (3.6-5.2) mmol/L 10/12/18 10/12/18 10/12/18 Range/Units 06:21 06:02 05:21 WBC 8.1 (4.8-10.8) K/uL RBC 3.34 L (3.80-5.20) Mil/uL Hgb 9.1 L (11.0-16.0) g/dL Hct 29.1 L (34.0-47.0) % MCV 87.0 (81.0-99.0) fL MCH 27.3 (27.0-31.0) pg MCHC 31.4 L (33.0-37.0) g/dL RDW 15.0 H (11.5-14.5) % Plt Count 167 (130-400) K/uL MPV 10.0 (7.2-11.7) fL Neut % (Auto) 53.6 (50.0-75.0) % Lymph % (Auto) 16.0 L (20.0-40.0) % Hendry % (Auto) 12.5 H (0.0-10.0) % Eos % (Auto) 17.3 H (0.0-4.0) % Baso % (Auto) 0.6 (0.0-2.0) % Neut # (Auto) 4.3 (1.8-7.0) K/uL Lymph # (Auto) 1.3 (1.0-4.3) K/uL Hendry # (Auto) 1.0 H (0.0-0.8) K/uL Eos # (Auto) 1.4 H (0.0-0.7) K/uL Baso # (Auto) 0.0 (0.0-0.2) K/uL Neutrophils % (Manual) 51 (50-75) % Band Neutrophils % 6 H (0-2) % Lymphocytes % (Manual) 17 L (20-40) % Monocytes % (Manual) 7 (0-10) % Eosinophils % (Manual) 13 H (0-4) % Basophils % (Manual) 1 (0-2) % Metamyelocytes % 1 H (0-0) % Myelocytes % 4 H (0-0) % Platelet Estimate Normal (NORMAL) Large Platelets Present Giant Platelets Present Polychromasia Slight Hypochromasia (manual) Slight Poikilocytosis (manual Slight Anisocytosis (manual) Slight Microcytosis (manual) Slight Macrocytosis (manual) Slight Target Cells Slight Tear Drop Cells Slight Puncture Site R brac pCO2 50 H (35-45) mm/Hg pO2 144 H (80-100) mm/Hg HCO3 28.0 (21-28) mmol/L ABG pH 7.38 (7.35-7.45) ABG Total CO2 31.1 H (22-28) mmol/L ABG O2 Saturation 99.3 H (95-98) % ABG Base Excess 3.9 H (-2.0-3.0) mmol/L ABG Hemoglobin 8.5 L (11.7-17.4) g/dL ABG Carboxyhemoglobin 2.0 H (0.5-1.5) % POC ABG HHb (Measured) 0.7 (0.0-5.0) % ABG Methemoglobin 1.0 (0.0-3.0) % Jimenez Test Na ABG Potassium (3.6-5.2) mmol/L A-a O2 Difference 79.0 mm/Hg Respiratory Index 0.5 Hgb O2 Saturation 96.3 (95.0-98.0) % Glucose (65-105) mg/dl Lactate (0.7-2.1) mmol/L Vent Mode Prvc Mechanical Rate 14 FiO2 40.0 % Tidal Volume 450 PEEP 5 Pressure Support CPAP Sodium (132-148) mmol/L Potassium (3.6-5.2) mmol/L Chloride (98-107) mmol/L Carbon Dioxide (22-30) mmol/L Anion Gap (10-20) BUN (7-17) mg/dL Creatinine (0.7-1.2) mg/dL Est GFR ( Amer) Est GFR (Non-Af Amer) POC Glucose (mg/dL) 173 H (65-110) mg/dL Random Glucose (65-105) mg/dL Calcium (8.6-10.4) mg/dl Phosphorus (2.5-4.5) mg/dL Magnesium (1.6-2.3) mg/dL Total Bilirubin (0.2-1.3) mg/dL AST (14-36) U/L ALT (9-52) U/L Alkaline Phosphatase (38-126) U/L Total Protein (6.3-8.3) g/dL Albumin (3.5-5.0) g/dL Globulin (2.2-3.9) gm/dL Albumin/Globulin Ratio (1.0-2.1) Arterial Blood Potassium (3.6-5.2) mmol/L 10/11/18 10/11/18 10/11/18 Range/Units 23:25 17:54 11:16 WBC (4.8-10.8) K/uL RBC (3.80-5.20) Mil/uL Hgb (11.0-16.0) g/dL Hct (34.0-47.0) % MCV (81.0-99.0) fL MCH (27.0-31.0) pg MCHC (33.0-37.0) g/dL RDW (11.5-14.5) % Plt Count (130-400) K/uL MPV (7.2-11.7) fL Neut % (Auto) (50.0-75.0) % Lymph % (Auto) (20.0-40.0) % Hendry % (Auto) (0.0-10.0) % Eos % (Auto) (0.0-4.0) % Baso % (Auto) (0.0-2.0) % Neut # (Auto) (1.8-7.0) K/uL Lymph # (Auto) (1.0-4.3) K/uL Hendry # (Auto) (0.0-0.8) K/uL Eos # (Auto) (0.0-0.7) K/uL Baso # (Auto) (0.0-0.2) K/uL Neutrophils % (Manual) (50-75) % Band Neutrophils % (0-2) % Lymphocytes % (Manual) (20-40) % Monocytes % (Manual) (0-10) % Eosinophils % (Manual) (0-4) % Basophils % (Manual) (0-2) % Metamyelocytes % (0-0) % Myelocytes % (0-0) % Platelet Estimate (NORMAL) Large Platelets Giant Platelets Polychromasia Hypochromasia (manual) Poikilocytosis (manual Anisocytosis (manual) Microcytosis (manual) Macrocytosis (manual) Target Cells Tear Drop Cells Puncture Site pCO2 (35-45) mm/Hg pO2 (80-100) mm/Hg HCO3 (21-28) mmol/L ABG pH (7.35-7.45) ABG Total CO2 (22-28) mmol/L ABG O2 Saturation (95-98) % ABG Base Excess (-2.0-3.0) mmol/L ABG Hemoglobin (11.7-17.4) g/dL ABG Carboxyhemoglobin (0.5-1.5) % POC ABG HHb (Measured) (0.0-5.0) % ABG Methemoglobin (0.0-3.0) % Jimenez Test ABG Potassium (3.6-5.2) mmol/L A-a O2 Difference mm/Hg Respiratory Index Hgb O2 Saturation (95.0-98.0) % Glucose (65-105) mg/dl Lactate (0.7-2.1) mmol/L Vent Mode Mechanical Rate FiO2 % Tidal Volume PEEP Pressure Support CPAP Sodium (132-148) mmol/L Potassium (3.6-5.2) mmol/L Chloride (98-107) mmol/L Carbon Dioxide (22-30) mmol/L Anion Gap (10-20) BUN (7-17) mg/dL Creatinine (0.7-1.2) mg/dL Est GFR ( Amer) Est GFR (Non-Af Amer) POC Glucose (mg/dL) 169 H 151 H 153 H (65-110) mg/dL Random Glucose (65-105) mg/dL Calcium (8.6-10.4) mg/dl Phosphorus (2.5-4.5) mg/dL Magnesium (1.6-2.3) mg/dL Total Bilirubin (0.2-1.3) mg/dL AST (14-36) U/L ALT (9-52) U/L Alkaline Phosphatase (38-126) U/L Total Protein (6.3-8.3) g/dL Albumin (3.5-5.0) g/dL Globulin (2.2-3.9) gm/dL Albumin/Globulin Ratio (1.0-2.1) Arterial Blood Potassium (3.6-5.2) mmol/L Laboratory Results - last 24 hr 10/11/18 10/11/18 10/11/18 11:16 17:54 23:25 WBC RBC Hgb Hct MCV MCH MCHC RDW Plt Count MPV Neut % (Auto) Lymph % (Auto) Hendry % (Auto) Eos % (Auto) Baso % (Auto) Neut # (Auto) Lymph # (Auto) Hendry # (Auto) Eos # (Auto) Baso # (Auto) Neutrophils % (Manual) Band Neutrophils % Lymphocytes % (Manual) Monocytes % (Manual) Eosinophils % (Manual) Basophils % (Manual) Metamyelocytes % Myelocytes % Platelet Estimate Large Platelets Giant Platelets Polychromasia Hypochromasia (manual) Poikilocytosis (manual Anisocytosis (manual) Microcytosis (manual) Macrocytosis (manual) Target Cells Tear Drop Cells Puncture Site pCO2 pO2 HCO3 ABG pH ABG Total CO2 ABG O2 Saturation ABG Base Excess ABG Hemoglobin ABG Carboxyhemoglobin POC ABG HHb (Measured) ABG Methemoglobin Jimenez Test ABG Potassium A-a O2 Difference Respiratory Index Hgb O2 Saturation Glucose Lactate Vent Mode Mechanical Rate FiO2 Tidal Volume PEEP Pressure Support CPAP Sodium Potassium Chloride Carbon Dioxide Anion Gap BUN Creatinine Est GFR ( Amer) Est GFR (Non-Af Amer) POC Glucose (mg/dL) 153 H 151 H 169 H Random Glucose Calcium Phosphorus Magnesium Total Bilirubin AST ALT Alkaline Phosphatase Total Protein Albumin Globulin Albumin/Globulin Ratio Arterial Blood Potassium 10/12/18 10/12/18 10/12/18 05:21 06:02 06:21 WBC 8.1 RBC 3.34 L Hgb 9.1 L Hct 29.1 L MCV 87.0 MCH 27.3 MCHC 31.4 L RDW 15.0 H Plt Count 167 MPV 10.0 Neut % (Auto) 53.6 Lymph % (Auto) 16.0 L Hendry % (Auto) 12.5 H Eos % (Auto) 17.3 H Baso % (Auto) 0.6 Neut # (Auto) 4.3 Lymph # (Auto) 1.3 Hendry # (Auto) 1.0 H Eos # (Auto) 1.4 H Baso # (Auto) 0.0 Neutrophils % (Manual) 51 Band Neutrophils % 6 H Lymphocytes % (Manual) 17 L Monocytes % (Manual) 7 Eosinophils % (Manual) 13 H Basophils % (Manual) 1 Metamyelocytes % 1 H Myelocytes % 4 H Platelet Estimate Normal Large Platelets Present Giant Platelets Present Polychromasia Slight Hypochromasia (manual) Slight Poikilocytosis (manual Slight Anisocytosis (manual) Slight Microcytosis (manual) Slight Macrocytosis (manual) Slight Target Cells Slight Tear Drop Cells Slight Puncture Site R brac pCO2 50 H pO2 144 H HCO3 28.0 ABG pH 7.38 ABG Total CO2 31.1 H ABG O2 Saturation 99.3 H ABG Base Excess 3.9 H ABG Hemoglobin 8.5 L ABG Carboxyhemoglobin 2.0 H POC ABG HHb (Measured) 0.7 ABG Methemoglobin 1.0 Jimenez Test Na ABG Potassium A-a O2 Difference 79.0 Respiratory Index 0.5 Hgb O2 Saturation 96.3 Glucose Lactate Vent Mode Prvc Mechanical Rate 14 FiO2 40.0 Tidal Volume 450 PEEP 5 Pressure Support CPAP Sodium Potassium Chloride Carbon Dioxide Anion Gap BUN Creatinine Est GFR ( Amer) Est GFR (Non-Af Amer) POC Glucose (mg/dL) 173 H Random Glucose Calcium Phosphorus Magnesium Total Bilirubin AST ALT Alkaline Phosphatase Total Protein Albumin Globulin Albumin/Globulin Ratio Arterial Blood Potassium 10/12/18 10/12/18 10/12/18 06:21 10:13 11:47 WBC RBC Hgb Hct MCV MCH MCHC RDW Plt Count MPV Neut % (Auto) Lymph % (Auto) Hendry % (Auto) Eos % (Auto) Baso % (Auto) Neut # (Auto) Lymph # (Auto) Hendry # (Auto) Eos # (Auto) Baso # (Auto) Neutrophils % (Manual) Band Neutrophils % Lymphocytes % (Manual) Monocytes % (Manual) Eosinophils % (Manual) Basophils % (Manual) Metamyelocytes % Myelocytes % Platelet Estimate Large Platelets Giant Platelets Polychromasia Hypochromasia (manual) Poikilocytosis (manual Anisocytosis (manual) Microcytosis (manual) Macrocytosis (manual) Target Cells Tear Drop Cells Puncture Site Rba pCO2 55 H pO2 66 L HCO3 26.2 ABG pH 7.33 L ABG Total CO2 30.7 H ABG O2 Saturation 95.4 ABG Base Excess 1.9 ABG Hemoglobin ABG Carboxyhemoglobin POC ABG HHb (Measured) ABG Methemoglobin Jimenez Test Na ABG Potassium 3.3 L A-a O2 Difference 115.0 Respiratory Index 1.7 Hgb O2 Saturation Glucose 173 H Lactate 0.6 L Vent Mode Cpap Mechanical Rate 30 FiO2 35.0 Tidal Volume PEEP Pressure Support 18 CPAP 5 Sodium 137 139.0 Potassium 4.0 Chloride 98 105.0 Carbon Dioxide 30 Anion Gap 13 BUN 20 H Creatinine 2.9 H Est GFR ( Amer) 19 Est GFR (Non-Af Amer) 16 POC Glucose (mg/dL) 204 H Random Glucose 167 H D Calcium 7.7 L Phosphorus 3.6 Magnesium 1.9 Total Bilirubin 0.3 AST 24 ALT 31 Alkaline Phosphatase 116 Total Protein 5.9 L Albumin 3.1 L Globulin 2.8 Albumin/Globulin Ratio 1.1 Arterial Blood Potassium 3.3 L Assessment/Plan - Assessment and Plan (Free Text) Plan: Patient admitted to ICU post respiratory arrest in OR. -Patient switched from IV propofol to IV precedex -CXR reveals congestion -will need HD for negative balance -HTN: unconrolled: add hydralazine + topical nitro + IV nitro PRN -contineu DVT/PUD ppx -Patient remains critical -on sedato[place] vacation, patient became agitated -patient remains critical - Date & Time Date: 10/12/18 Time: 16:51
--- NOTE | 2018-10-12 12:25 | CP.PCM.PN ---
<Yecenia Worley - Last Filed: 10/12/18 18:21> Subjective - Date & Time of Evaluation Date of Evaluation: 10/12/18 Time of Evaluation: 12:21 - Subjective Subjective: PGY3 cardio progress note Pt seen and examined at bedside. No acute events overnight. Pt underwent Right sided permacath placement yesterday for HD. Tolerated procedure well. ROS unobtainable due to intubation Objective - Vital Signs/Intake and Output Vital Signs (last 24 hours): Temp Pulse Resp BP Pulse Ox 98.4 F 58 L 14 143/60 100 10/12/18 12:00 10/12/18 12:03 10/12/18 09:00 10/12/18 12:03 10/12/18 12:03 Intake and Output: 10/12/18 10/12/18 06:59 18:59 Intake Total 724.4 514.8 Balance 724.4 514.8 - Medications Medications: Current Medications Acetaminophen (Tylenol 325mg Tab) 650 mg PO Q6H PRN PRN Reason: Pain, Mild (1-3) Last Admin: 10/06/18 11:15 Dose: 650 mg Acetaminophen (Tylenol 325mg Tab) 650 mg PO Q6 PRN PRN Reason: pain+fever Last Admin: 10/09/18 09:59 Dose: 650 mg Albuterol/Ipratropium (Duoneb 3 Mg/0.5 Mg (3 Ml) Ud) 3 ml INH RQ6 [facility] Aspirin (Aspirin Chewable) 81 mg PO DAILY [facility] Last Admin: 10/12/18 09:47 Dose: 81 mg Epoetin Dedrick (Procrit) 10,000 unit IV TTS [facility] Last Admin: 10/11/18 10:50 Dose: 10,000 unit Heparin Sodium (Porcine) (Heparin) 5,000 units SC Q12 [facility] Last Admin: 10/12/18 09:46 Dose: 5,000 units Hydralazine HCl (Apresoline) 25 mg PO BID [facility] Hydralazine HCl (Apresoline) 25 mg PO Q6 PRN PRN Reason: systolic blood pressure > 140 Last Admin: 10/12/18 09:47 Dose: 25 mg Ferric Sodium Gluconate Complex 125 mg/ Sodium Chloride 110 mls @ 110 mls/hr IVPB DAILY [facility] Stop: 10/14/18 10:01 Last Admin: 10/12/18 10:24 Dose: 110 mls/hr Propofol (Diprivan) 1,000 mg in 100 mls @ 2.735 mls/hr IV .Q24H PRN; Protocol PRN Reason: TITRATE PER MD ORDER Last Admin: 10/12/18 09:47 Dose: 25 mcg/kg/min, 13.676 mls/hr Piperacillin Sod/Tazobactam Sod (Zosyn 2.25 Gm Iv Premix) 2.25 gm in 50 mls @ 100 mls/hr IVPB Q8 [facility]; Protocol Last Admin: 10/12/18 05:17 Dose: 100 mls/hr Dexmedetomidine HCl 200 mcg/ (Sodium Chloride) 50 mls @ 4.38 mls/hr IV TITR PRN; Protocol PRN Reason: Agitation Vancomycin HCl 1 gm/ Sodium (Chloride) 250 mls @ 166.7 mls/hr IVPB TTS [facility]; Protocol Insulin Detemir (Levemir) 25 unit SC [facility] Last Admin: 10/11/18 21:50 Dose: 25 u Insulin Human Regular (Novolin R) 0 unit SC Q6H [facility]; Protocol Last Admin: 10/12/18 11:50 Dose: 2 u Levetiracetam (Keppra) 750 mg PO BID [facility] Last Admin: 10/12/18 09:44 Dose: 750 mg Levothyroxine Sodium (Synthroid) 50 mcg PO 0600 [facility] Last Admin: 10/12/18 05:17 Dose: 50 mcg Methylprednisolone (Solu-Medrol) 40 mg IVP Q8H [facility] Stop: 10/14/18 02:01 Last Admin: 10/12/18 09:46 Dose: 40 mg Pantoprazole Sodium (Protonix Susp) 40 mg PO 0600 [facility] Last Admin: 10/12/18 05:16 Dose: 40 mg Rosuvastatin Calcium (Crestor) 10 mg PO HS [facility] Last Admin: 10/11/18 21:50 Dose: 10 mg - Labs Labs: 10/12/18 06:21 10/12/18 06:21 PT 13.9 SECONDS (9.7-12.2) H 10/06/18 21:04 INR 1.3 10/06/18 21:04 APTT 45 SECONDS (21-34) H D 10/06/18 21:04 - Constitutional Appears: Non-toxic, No Acute Distress - Head Exam Head Exam: ATRAUMATIC, NORMOCEPHALIC - ENT Exam ENT Exam: Mucous Membranes Moist - Respiratory Exam Respiratory Exam: Clear to Ausculation Bilateral. absent: Rhonchi, Wheezes - Cardiovascular Exam Cardiovascular Exam: REGULAR RHYTHM, +S1, +S2 - GI/Abdominal Exam GI & Abdominal Exam: Soft. absent: Guarding, Rigid, Tenderness - Extremities Exam Extremities Exam: absent: Pedal Edema, Tenderness - Neurological Exam Neurological Exam: absent: Alert, Awake, Oriented x3 - Psychiatric Exam Psychiatric exam: absent: Normal Affect, Normal Mood - Skin Skin Exam: Dry, Intact, Normal Color, Warm Assessment and Plan - Assessment and Plan (Free Text) Assessment: 72 year old female with past medical history of CAD, CHF, HTN, HLD, pituitary adenoma, is being seen s/p respiratory arrest during AV fistula placement surgery. Respiratory failure - Currently intubated. Management per primary care team - Completed hypothermic protocol HTN - Continue hydralazine HLD - Continue statin therapy with crestor CAD - Continue aspirin and statin therapy CKD on HD - S/p right permacath placed on 10/11. - Per primary care and nephro management Case discussed with attending, Dr. Wagoner <Jimmy Wagoner - Last Filed: 10/12/18 18:49> Objective - Vital Signs/Intake and Output Vital Signs (last 24 hours): Temp Pulse Resp BP Pulse Ox 98.2 F 69 14 145/41 L 93 L 10/12/18 16:00 10/12/18 18:25 10/12/18 16:09 10/12/18 18:25 10/12/18 18:25 Intake and Output: 10/12/18 10/12/18 06:59 18:59 Intake Total 724.4 974.6 Output Total 200 Balance 724.4 774.6 - Medications Medications: Current Medications Acetaminophen (Tylenol 325mg Tab) 650 mg PO Q6H PRN PRN Reason: Pain, Mild (1-3) Last Admin: 10/06/18 11:15 Dose: 650 mg Acetaminophen (Tylenol 325mg Tab) 650 mg PO Q6 PRN PRN Reason: pain+fever Last Admin: 10/09/18 09:59 Dose: 650 mg Albuterol/Ipratropium (Duoneb 3 Mg/0.5 Mg (3 Ml) Ud) 3 ml INH RQ6 [facility] Last Admin: 10/12/18 13:21 Dose: 3 ml Aspirin (Aspirin Chewable) 81 mg PO DAILY [facility] Last Admin: 10/12/18 09:47 Dose: 81 mg Epoetin Dedrick (Procrit) 10,000 unit IV TTS [facility] Last Admin: 10/11/18 10:50 Dose: 10,000 unit Heparin Sodium (Porcine) (Heparin) 5,000 units SC Q12 [facility] Last Admin: 10/12/18 09:46 Dose: 5,000 units Hydralazine HCl (Apresoline) 25 mg PO BID [facility] Hydralazine HCl (Apresoline) 50 mg PO Q8H [facility] Last Admin: 10/12/18 14:21 Dose: 50 mg Ferric Sodium Gluconate Complex 125 mg/ Sodium Chloride 110 mls @ 110 mls/hr IVPB DAILY [facility] Stop: 10/14/18 10:01 Last Admin: 10/12/18 10:24 Dose: 110 mls/hr Piperacillin Sod/Tazobactam Sod (Zosyn 2.25 Gm Iv Premix) 2.25 gm in 50 mls @ 100 mls/hr IVPB Q8 [facility]; Protocol Last Admin: 10/12/18 13:28 Dose: 100 mls/hr Dexmedetomidine HCl 200 mcg/ (Sodium Chloride) 50 mls @ 4.38 mls/hr IV TITR PRN; Protocol PRN Reason: Agitation Last Admin: 10/12/18 16:49 Dose: 0.4 mcg/kg/hr, 8.75 mls/hr Vancomycin HCl 1 gm/ Sodium (Chloride) 250 mls @ 166.7 mls/hr IVPB TTS [facility]; Protocol Nitroglycerin/Dextrose (Nitroglycerin 50 Mg/250 Ml D5w) 50 mg in 250 mls @ 7.5 mls/hr IV .Q24H [facility]; Protocol Last Titration: 10/12/18 16:30 Dose: 35 mcg/min, 10.5 mls/hr Insulin Detemir (Levemir) 25 unit SC HS [facility] Last Admin: 10/11/18 21:50 Dose: 25 u Insulin Human Regular (Novolin R) 0 unit SC Q6H [facility]; Protocol Last Admin: 10/12/18 17:54 Dose: 4 u Levetiracetam (Keppra) 750 mg PO BID [facility] Last Admin: 10/12/18 17:55 Dose: 750 mg Levothyroxine Sodium (Synthroid) 50 mcg PO 0600 [facility] Last Admin: 10/12/18 05:17 Dose: 50 mcg Methylprednisolone (Solu-Medrol) 40 mg IVP Q8H [facility] Stop: 10/14/18 02:01 Last Admin: 10/12/18 17:54 Dose: 40 mg Nitroglycerin (Nitro-Bid 2% Oint) 1 ea TOP Q6H [facility] Last Admin: 10/12/18 16:05 Dose: 1 ea Pantoprazole Sodium (Protonix Susp) 40 mg PO 0600 [facility] Last Admin: 10/12/18 05:16 Dose: 40 mg Rosuvastatin Calcium (Crestor) 10 mg PO HS [facility] Last Admin: 10/11/18 21:50 Dose: 10 mg - Labs Labs: 10/12/18 06:21 10/12/18 06:21 PT 13.9 SECONDS (9.7-12.2) H 10/06/18 21:04 INR 1.3 10/06/18 21:04 APTT 45 SECONDS (21-34) H D 10/06/18 21:04 Assessment and Plan - Assessment and Plan (Free Text) Assessment: Patient seen and evaluated personally by me. Plan of care d/w the medical records auditor and as documented
[2018-10-12] MEDS: Albuterol-Ipratrop 3 mg / 0.5 (3 ml) UD INH SCH ×2 (13:21→19:00)
[2018-10-12] MEDS: Dexmedetomidine Hydrochloride 200 MCG in Sodium Chloride 0.9% 48 ML IV PRN ×3 (13:58→22:15)
[2018-10-12] MEDS: Nitroglycerin 2% Ointment Foilpak UD TOP SCH ×2 (16:05→22:15)
[2018-10-12] MEDS: Nitroglycerin 50mg in D5W 50 MG/250 ML BOTTLE IV SCH (16:09)
[2018-10-12] MEDS: Insulin Detemir 100 units/ml Vial (Levemir) SC SCH (22:00)
[2018-10-13] MEDS: MethylPREDNISolone 40 mg Vial IVP SCH ×3 (02:00→17:25)
[2018-10-13] MEDS: Albuterol-Ipratrop 3 mg / 0.5 (3 ml) UD INH SCH ×4 (02:49→19:55)
[2018-10-13] MEDS: Dexmedetomidine Hydrochloride 200 MCG in Sodium Chloride 0.9% 48 ML IV PRN ×3 (04:00→15:05)
[2018-10-13] MEDS: Nitroglycerin 2% Ointment Foilpak UD TOP SCH (04:00)
[2018-10-13] MEDS: Levothyroxine 50 MCG TAB PO SCH (05:55)
[2018-10-13] MEDS: Piperacill/Tazo 2.25gm in Dex 2.25 GM/50 ML BAG IVPB SCH ×2 (05:58→13:12)
[2018-10-13] MEDS: Pantoprazole 40 mg Susp UD PO SCH (05:58)
[2018-10-13 06:23] LABS: ABG ALLEN TEST POS; ARTERIAL BLOOD GAS HCO3 24.7 mmol/L (21-28); ARTERIAL BLOOD GAS O2 SAT 98.1 % (95-98); ARTERIAL BLOOD GAS PCO2 47 mm/Hg (35-45); ARTERIAL BLOOD GAS PH 7.35 (7.35-7.45); ARTERIAL BLOOD GAS PO2 90 mm/Hg (80-100); ARTERIAL BLOOD GAS TCO2 27.3 mmol/L (22-28)
[2018-10-13 06:49] LABS: BASO % 0.3 % (0.0-2.0); EOS % 0.2 % (0.0-4.0); HEMOGLOBIN 8.6 g/dL (11.0-16.0); LYMPH # 0.9 K/uL (1.0-4.3); LYMPH % 7.6 % (20.0-40.0); MEAN CELL VOLUME 87.2 fL (81.0-99.0); MEAN CORPUSCULAR HEMOGLOBIN 26.9 pg (27.0-31.0); MEAN CORPUSCULAR HGB CONC 30.8 g/dL (33.0-37.0); MEAN PLATELET VOLUME 10.1 fL (7.2-11.7); MONO # 0.4 K/uL (0.0-0.8); MONO % 3.5 % (0.0-10.0); NEUT # 10.3 K/uL (1.8-7.0); NEUT % 88.4 % (50.0-75.0); NRBC % 0.1 % (0.0-2.0); PLATELET COUNT 221 K/uL (130-400); RBC 3.19 Mil/uL (3.80-5.20); RED CELL DISTRIBUTION WIDTH 15.4 % (11.5-14.5); WHITE BLOOD COUNT 11.6 K/uL (4.8-10.8)
[2018-10-13] MEDS: (Novolin R) Insulin Human Regular 100 units/ml vial SC SCH ×2 (06:58)
[2018-10-13 07:15] LABS: ALB/GLOB RATIO 1.2 (1.0-2.1); ALBUMIN 3.4 g/dL (3.5-5.0); CALCIUM 7.8 mg/dl (8.6-10.4)
--- NOTE | 2018-10-13 09:05 | RAD ---
Date of service: 10/13/2018 HISTORY: intubated COMPARISON: 10/11/2018. FINDINGS: Endotracheal tube terminates in the mid trachea. The nasogastric tube terminates in the stomach LUNGS: The lungs are well inflated. There is mild pulmonary venous congestion. PLEURA: No pleural effusions or pneumothorax. CARDIOVASCULAR: Persistent mild cardiomegaly. No aortic atherosclerotic calcifications present. OSSEOUS STRUCTURES: Within normal limits for the patient's age. VISUALIZED UPPER ABDOMEN: Normal. OTHER FINDINGS: None. IMPRESSION: No active pulmonary disease. Persistent mild cardiomegaly and mild pulmonary venous congestion. Stable position of support tubes.
[2018-10-13] MEDS ORDERED: (Novolog) Insulin Aspart, Recombinant 100 u/ml 10 ml vial SC SCH (09:15)
--- NOTE | 2018-10-13 09:23 | CP.PCM.PN ---
Subjective - Date & Time of Evaluation Date of Evaluation: 10/13/18 Time of Evaluation: 09:20 - Subjective Subjective: Notes reviewed Discussed with icu nursing staff No overnight events reported Remains intubated and sedated Bp stable Remains on tube feeding ROS unobtainable due to medical condition Objective - Vital Signs/Intake and Output Vital Signs (last 24 hours): Temp Pulse Resp BP Pulse Ox 98.5 F 58 L 14 180/68 H 98 10/13/18 04:00 10/13/18 07:18 10/12/18 16:09 10/13/18 07:18 10/13/18 07:18 Intake and Output: 10/13/18 10/13/18 06:59 18:59 Intake Total 964.4 149.2 Output Total 120 Balance 844.4 149.2 - Medications Medications: Current Medications Acetaminophen (Tylenol 325mg Tab) 650 mg PO Q6 PRN PRN Reason: pain+fever Last Admin: 10/09/18 09:59 Dose: 650 mg Albuterol/Ipratropium (Duoneb 3 Mg/0.5 Mg (3 Ml) Ud) 3 ml INH RQ6 [facility] Last Admin: 10/13/18 02:49 Dose: 3 ml Aspirin (Aspirin Chewable) 81 mg PO DAILY [facility] Last Admin: 10/12/18 09:47 Dose: 81 mg Carvedilol (Coreg) 12.5 mg PO BID [facility] Epoetin Dedrick (Procrit) 10,000 unit IV TTS [facility] Last Admin: 10/11/18 10:50 Dose: 10,000 unit Heparin Sodium (Porcine) (Heparin) 5,000 units SC Q12 [facility] Last Admin: 10/12/18 22:00 Dose: 5,000 units Hydralazine HCl (Apresoline) 100 mg PO Q8H [facility] Last Admin: 10/13/18 09:19 Dose: 100 mg Ferric Sodium Gluconate Complex 125 mg/ Sodium Chloride 110 mls @ 110 mls/hr IVPB DAILY [facility] Stop: 10/14/18 10:01 Last Admin: 10/12/18 10:24 Dose: 110 mls/hr Piperacillin Sod/Tazobactam Sod (Zosyn 2.25 Gm Iv Premix) 2.25 gm in 50 mls @ 100 mls/hr IVPB Q8 [facility]; Protocol Last Admin: 10/13/18 05:58 Dose: 100 mls/hr Dexmedetomidine HCl 200 mcg/ (Sodium Chloride) 50 mls @ 4.38 mls/hr IV TITR PRN; Protocol PRN Reason: Agitation Last Admin: 10/13/18 04:00 Dose: 0.4 mcg/kg/hr, 8.75 mls/hr Vancomycin HCl 1 gm/ Sodium (Chloride) 250 mls @ 166.7 mls/hr IVPB TTS [facility]; Protocol Nitroglycerin/Dextrose (Nitroglycerin 50 Mg/250 Ml D5w) 50 mg in 250 mls @ 7.5 mls/hr IV .Q24H [facility]; Protocol Last Titration: 10/13/18 02:00 Dose: 30 mcg/min, 9 mls/hr Insulin Aspart (Novolog) 0 unit SC Q4H [facility]; Protocol Insulin Detemir (Levemir) 25 unit SC Q12 [facility] Isosorbide Dinitrate (Isordil) 20 mg PO BID [facility] Levetiracetam (Keppra) 750 mg PO BID [facility] Last Admin: 10/12/18 17:55 Dose: 750 mg Levothyroxine Sodium (Synthroid) 50 mcg PO 0600 [facility] Last Admin: 10/13/18 05:55 Dose: 50 mcg Methylprednisolone (Solu-Medrol) 40 mg IVP Q8H [facility] Stop: 10/14/18 02:01 Last Admin: 10/13/18 02:00 Dose: 40 mg Pantoprazole Sodium (Protonix Susp) 40 mg PO 0600 [facility] Last Admin: 10/13/18 05:58 Dose: 40 mg Rosuvastatin Calcium (Crestor) 10 mg PO HS [facility] Last Admin: 10/12/18 22:18 Dose: 10 mg - Labs Labs: 10/13/18 06:20 10/13/18 06:20 PT 13.9 SECONDS (9.7-12.2) H 10/06/18 21:04 INR 1.3 10/06/18 21:04 APTT 45 SECONDS (21-34) H D 10/06/18 21:04 - Constitutional Appears: Toxic, Chronically Ill - Head Exam Head Exam: ATRAUMATIC, NORMAL INSPECTION - Eye Exam Eye Exam: absent: Conjunctival injection, Scleral icterus - ENT Exam ENT Exam: Mucous Membranes Moist Additional comments: et tube in place - Neck Exam Neck Exam: absent: Lymphadenopathy, Thyromegaly - Respiratory Exam Respiratory Exam: Rales, Rhonchi, NORMAL BREATHING PATTERN - Cardiovascular Exam Cardiovascular Exam: +S1, +S2. absent: Rubs - GI/Abdominal Exam GI & Abdominal Exam: Distended, Soft, Normal Bowel Sounds - Extremities Exam Extremities Exam: Pedal Edema Additional comments: b/l upperext wrapped in errol dressings - Neurological Exam Neurological Exam: absent: Awake, Oriented x3 Assessment and Plan (1) Respiratory failure Status: Acute (2) ESRD (end stage renal disease) Status: Acute (3) CAD (coronary artery disease) Status: Acute (4) CHF (congestive heart failure) Status: Acute (5) Diabetes Status: Acute (6) HTN (hypertension) Status: Acute (7) Hyperglycemia Status: Acute - Assessment and Plan (Free Text) Assessment: Dialysis scheduled today UF as tolerated, attempt 3 kg Bp meds as ordered Vent weaning when possible Tube feeding, continue supportive care
[2018-10-13 09:27] LABS: BANDS 6 % (0-2); LYMPHOCYTE 10 % (20-40); MONOCYTE 2 % (0-10); NEUTROPHIL 82 % (50-75); TOTAL CELLS COUNTED 100
[2018-10-13 09:28] LABS: ANISOCYTOSIS SLIGHT; HYPOCHROMIC SLIGHT; PLATELET ESTIMATE NORMAL (NORMAL); POLYCHROMIC SLIGHT
[2018-10-13] MEDS: levETIRAcetam 100 mg/ml (5ml) Oral Syringe PO SCH ×2 (10:27→17:25)
[2018-10-13] MEDS: Insulin Detemir 100 units/ml Vial (Levemir) SC SCH ×2 (10:28→22:19)
[2018-10-13] MEDS: Ferric Sodium Gluconat Complex 125 MG in Sodium Chloride 0.9% 100 ML IVPB SCH (11:25)
--- NOTE | 2018-10-13 11:57 | CP.PCM.PN ---
Subjective - Date & Time of Evaluation Date of Evaluation: 10/13/18 Time of Evaluation: 11:56 - Subjective Subjective: Patient remains intubated Objective - Vital Signs/Intake and Output Vital Signs (last 24 hours): Temp Pulse Resp BP Pulse Ox 98.2 F 63 14 143/49 L 99 10/13/18 08:00 10/13/18 11:24 10/12/18 16:09 10/13/18 11:24 10/13/18 11:24 Intake and Output: 10/13/18 10/13/18 06:59 18:59 Intake Total 964.4 455.6 Output Total 120 0 Balance 844.4 455.6 - Medications Medications: Current Medications Acetaminophen (Tylenol 325mg Tab) 650 mg PO Q6 PRN PRN Reason: pain+fever Last Admin: 10/09/18 09:59 Dose: 650 mg Albuterol/Ipratropium (Duoneb 3 Mg/0.5 Mg (3 Ml) Ud) 3 ml INH RQ6 [facility] Last Admin: 10/13/18 02:49 Dose: 3 ml Aspirin (Aspirin Chewable) 81 mg PO DAILY [facility] Last Admin: 10/13/18 10:26 Dose: 81 mg Carvedilol (Coreg) 12.5 mg PO BID [facility] Last Admin: 10/13/18 10:26 Dose: 12.5 mg Epoetin Dedrick (Procrit) 10,000 unit IV TTS [facility] Last Admin: 10/11/18 10:50 Dose: 10,000 unit Heparin Sodium (Porcine) (Heparin) 5,000 units SC Q12 [facility] Last Admin: 10/13/18 10:26 Dose: 5,000 units Hydralazine HCl (Apresoline) 100 mg PO Q8H [facility] Last Admin: 10/13/18 09:19 Dose: 100 mg Ferric Sodium Gluconate Complex 125 mg/ Sodium Chloride 110 mls @ 110 mls/hr IVPB DAILY [facility] Stop: 10/14/18 10:01 Last Admin: 10/13/18 11:25 Dose: 110 mls/hr Piperacillin Sod/Tazobactam Sod (Zosyn 2.25 Gm Iv Premix) 2.25 gm in 50 mls @ 100 mls/hr IVPB Q8 [facility]; Protocol Last Admin: 10/13/18 05:58 Dose: 100 mls/hr Dexmedetomidine HCl 200 mcg/ (Sodium Chloride) 50 mls @ 4.38 mls/hr IV TITR PRN; Protocol PRN Reason: Agitation Last Titration: 10/13/18 09:00 Dose: 0.2 mcg/kg/hr, 4.38 mls/hr Vancomycin HCl 1 gm/ Sodium (Chloride) 250 mls @ 166.7 mls/hr IVPB TTS [facility]; Protocol Nitroglycerin/Dextrose (Nitroglycerin 50 Mg/250 Ml D5w) 50 mg in 250 mls @ 7.5 mls/hr IV .Q24H [facility]; Protocol Last Titration: 10/13/18 10:48 Dose: 20 mcg/min, 6 mls/hr Insulin Aspart (Novolog) 0 unit SC Q4H [facility]; Protocol Last Admin: 10/13/18 10:18 Dose: 10 units Insulin Detemir (Levemir) 25 unit SC Q12 [facility] Last Admin: 10/13/18 10:28 Dose: 25 units Isosorbide Dinitrate (Isordil) 20 mg PO BID [facility] Last Admin: 10/13/18 10:27 Dose: 20 mg Levetiracetam (Keppra) 750 mg PO BID [facility] Last Admin: 10/13/18 10:27 Dose: 750 mg Levothyroxine Sodium (Synthroid) 50 mcg PO 0600 [facility] Last Admin: 10/13/18 05:55 Dose: 50 mcg Methylprednisolone (Solu-Medrol) 40 mg IVP Q8H [facility] Stop: 10/14/18 02:01 Last Admin: 10/13/18 10:28 Dose: 40 mg Pantoprazole Sodium (Protonix Susp) 40 mg PO 0600 [facility] Last Admin: 10/13/18 05:58 Dose: 40 mg Rosuvastatin Calcium (Crestor) 10 mg PO HS [facility] Last Admin: 10/12/18 22:18 Dose: 10 mg - Labs Labs: 10/13/18 06:20 10/13/18 06:20 PT 13.9 SECONDS (9.7-12.2) H 10/06/18 21:04 INR 1.3 10/06/18 21:04 APTT 45 SECONDS (21-34) H D 10/06/18 21:04 - Constitutional Appears: Well, Non-toxic - Head Exam Head Exam: ATRAUMATIC, NORMAL INSPECTION, NORMOCEPHALIC - Eye Exam Pupil Exam: NORMAL ACCOMODATION - ENT Exam ENT Exam: Mucous Membranes Moist - Respiratory Exam Respiratory Exam: NORMAL BREATHING PATTERN - Cardiovascular Exam Cardiovascular Exam: REGULAR RHYTHM, +S1, +S2 - GI/Abdominal Exam GI & Abdominal Exam: Distended, Soft, Normal Bowel Sounds. absent: Firm, Guarding, Rigid, Tenderness, Diminished Bowel Sounds, Hypoactive Bowel Sounds, Rebound - Extremities Exam Extremities Exam: Normal Capillary Refill, Pedal Edema - Neurological Exam Neurological Exam: Alert, Awake - Skin Skin Exam: Normal Color Assessment and Plan - Assessment and Plan (Free Text) Assessment: Patient admitted to ICU post respiratory arrest in OR. -CPAP trials daily -CXR reveals congestion -will need HD for negative balance -HTN: unconrolled: add hydralazine + topical nitro + IV nitro PRN -contineu DVT/PUD ppx -Patient remains critical -on sedatoin vacation, patient became agitated -patient remains critical
[2018-10-13] MEDS: (Novolog) Insulin Aspart, Recombinant 100 u/ml 10 ml vial SC SCH ×3 (14:32→22:31)
[2018-10-13] MEDS: Epoetin Alfa 10,000 unit/ml Dialysis IV SCH (15:58)
[2018-10-13] MEDS: Nitroglycerin 50mg in D5W 50 MG/250 ML BOTTLE IV SCH (16:06)
--- NOTE | 2018-10-13 19:51 | CP.PCM.PN ---
Subjective - Date & Time of Evaluation Date of Evaluation: 10/12/18 Time of Evaluation: 19:50 - Subjective Subjective: Patient was seen by me family at bedside, I spoke to the patient's family in detail about the overall condition. Patient is awake and responding. Tolerating the CPAP trial. Minimal secretions endotracheally noted. Patient is opening her eyes, currently sedated. Vital signs stable, but elevated blood pressure, with the nitroglycerin drip running. Chest good air entry. Chest x-ray much clear now. Blood gas analysis showing stable. Blood culture negative Sputum culture MRSA noted. Currently on vancomycin. We will discontinue Zosyn. DVT and GI prophylaxis. Possible extubation tomorrow after the dialysis, will attempt every day. Overall prognosis guarded. Objective - Vital Signs/Intake and Output Vital Signs (last 24 hours): Temp Pulse Resp BP Pulse Ox 97 F L 57 L 20 176/51 H 99 10/13/18 18:00 10/13/18 19:00 10/13/18 18:00 10/13/18 18:10 10/13/18 19:00 Intake and Output: 10/13/18 10/14/18 18:59 06:59 Intake Total 1132.4 34.4 Output Total 1800 0 Balance -667.6 34.4 - Medications Medications: Current Medications Acetaminophen (Tylenol 325mg Tab) 650 mg PO Q6 PRN PRN Reason: pain+fever Last Admin: 10/09/18 09:59 Dose: 650 mg Albuterol/Ipratropium (Duoneb 3 Mg/0.5 Mg (3 Ml) Ud) 3 ml INH RQ6 [facility] Last Admin: 10/13/18 11:30 Dose: 3 ml Aspirin (Aspirin Chewable) 81 mg PO DAILY [facility] Last Admin: 10/13/18 10:26 Dose: 81 mg Carvedilol (Coreg) 12.5 mg PO BID [facility] Last Admin: 10/13/18 17:28 Dose: 12.5 mg Epoetin Dedrick (Procrit) 10,000 unit IV TTS [facility] Last Admin: 10/13/18 15:58 Dose: 10,000 unit Heparin Sodium (Porcine) (Heparin) 5,000 units SC Q12 [facility] Last Admin: 10/13/18 10:26 Dose: 5,000 units Hydralazine HCl (Apresoline) 100 mg PO Q8H [facility] Last Admin: 10/13/18 16:03 Dose: 100 mg Ferric Sodium Gluconate Complex 125 mg/ Sodium Chloride 110 mls @ 110 mls/hr IVPB DAILY [facility] Stop: 10/14/18 10:01 Last Admin: 10/13/18 11:25 Dose: 110 mls/hr Dexmedetomidine HCl 200 mcg/ (Sodium Chloride) 50 mls @ 4.38 mls/hr IV TITR PRN; Protocol PRN Reason: Agitation Last Admin: 10/13/18 15:05 Dose: 0.2 mcg/kg/hr, 4.38 mls/hr Vancomycin HCl 1 gm/ Sodium (Chloride) 250 mls @ 166.7 mls/hr IVPB TTS [facility]; Protocol Last Admin: 10/13/18 17:27 Dose: 166.7 mls/hr Nitroglycerin/Dextrose (Nitroglycerin 50 Mg/250 Ml D5w) 50 mg in 250 mls @ 7.5 mls/hr IV .Q24H [facility]; Protocol Last Admin: 10/13/18 16:06 Dose: Not Given Insulin Aspart (Novolog) 0 unit SC Q4H [facility]; Protocol Last Admin: 10/13/18 18:22 Dose: 3 units Insulin Detemir (Levemir) 25 unit SC Q12 [facility] Last Admin: 10/13/18 10:28 Dose: 25 units Isosorbide Dinitrate (Isordil) 20 mg PO BID [facility] Last Admin: 10/13/18 17:28 Dose: 20 mg Levetiracetam (Keppra) 750 mg PO BID [facility] Last Admin: 10/13/18 17:25 Dose: 750 mg Levothyroxine Sodium (Synthroid) 50 mcg PO 0600 [facility] Last Admin: 10/13/18 05:55 Dose: 50 mcg Methylprednisolone (Solu-Medrol) 40 mg IVP Q8H [facility] Stop: 10/14/18 02:01 Last Admin: 10/13/18 17:25 Dose: 40 mg Pantoprazole Sodium (Protonix Susp) 40 mg PO 0600 [facility] Last Admin: 10/13/18 05:58 Dose: 40 mg Rosuvastatin Calcium (Crestor) 10 mg PO HS [facility] Last Admin: 10/12/18 22:18 Dose: 10 mg - Labs Labs: 10/13/18 06:20 10/13/18 06:20 PT 13.9 SECONDS (9.7-12.2) H 10/06/18 21:04 INR 1.3 10/06/18 21:04 APTT 45 SECONDS (21-34) H D 10/06/18 21:04 Assessment and Plan (1) Acute on chronic renal failure Status: Acute (2) Diabetic nephropathy associated with type 2 diabetes mellitus Status: Acute (3) Uremia, acute Status: Acute
--- NOTE | 2018-10-13 19:52 | CP.PCM.PN ---
Subjective - Date & Time of Evaluation Date of Evaluation: 10/13/18 Time of Evaluation: 19:51 - Subjective Subjective: Patient is now awake this morning. Tolerating the CPAP. CPAP trial attempt at this morning. But again it was stopped because patient was getting the dialysis. Chest x-ray clear. Vital signs are stable otherwise. We will continue the current treatment. Discontinue Zosyn. On, vancomycin. Will get the Vanco level in the morning. Repeat sputum culture. ICU management. Objective - Vital Signs/Intake and Output Vital Signs (last 24 hours): Temp Pulse Resp BP Pulse Ox 97 F L 57 L 20 176/51 H 99 10/13/18 18:00 10/13/18 19:00 10/13/18 18:00 10/13/18 18:10 10/13/18 19:00 Intake and Output: 10/13/18 10/14/18 18:59 06:59 Intake Total 1132.4 34.4 Output Total 1800 0 Balance -667.6 34.4 - Medications Medications: Current Medications Acetaminophen (Tylenol 325mg Tab) 650 mg PO Q6 PRN PRN Reason: pain+fever Last Admin: 10/09/18 09:59 Dose: 650 mg Albuterol/Ipratropium (Duoneb 3 Mg/0.5 Mg (3 Ml) Ud) 3 ml INH RQ6 [facility] Last Admin: 10/13/18 11:30 Dose: 3 ml Aspirin (Aspirin Chewable) 81 mg PO DAILY [facility] Last Admin: 10/13/18 10:26 Dose: 81 mg Carvedilol (Coreg) 12.5 mg PO BID [facility] Last Admin: 10/13/18 17:28 Dose: 12.5 mg Epoetin Dedrick (Procrit) 10,000 unit IV TTS [facility] Last Admin: 10/13/18 15:58 Dose: 10,000 unit Heparin Sodium (Porcine) (Heparin) 5,000 units SC Q12 [facility] Last Admin: 10/13/18 10:26 Dose: 5,000 units Hydralazine HCl (Apresoline) 100 mg PO Q8H [facility] Last Admin: 10/13/18 16:03 Dose: 100 mg Ferric Sodium Gluconate Complex 125 mg/ Sodium Chloride 110 mls @ 110 mls/hr IVPB DAILY [facility] Stop: 10/14/18 10:01 Last Admin: 10/13/18 11:25 Dose: 110 mls/hr Dexmedetomidine HCl 200 mcg/ (Sodium Chloride) 50 mls @ 4.38 mls/hr IV TITR PRN; Protocol PRN Reason: Agitation Last Admin: 10/13/18 15:05 Dose: 0.2 mcg/kg/hr, 4.38 mls/hr Vancomycin HCl 1 gm/ Sodium (Chloride) 250 mls @ 166.7 mls/hr IVPB TTS [facility]; Protocol Last Admin: 10/13/18 17:27 Dose: 166.7 mls/hr Nitroglycerin/Dextrose (Nitroglycerin 50 Mg/250 Ml D5w) 50 mg in 250 mls @ 7.5 mls/hr IV .Q24H [facility]; Protocol Last Admin: 10/13/18 16:06 Dose: Not Given Insulin Aspart (Novolog) 0 unit SC Q4H [facility]; Protocol Last Admin: 10/13/18 18:22 Dose: 3 units Insulin Detemir (Levemir) 25 unit SC Q12 [facility] Last Admin: 10/13/18 10:28 Dose: 25 units Isosorbide Dinitrate (Isordil) 20 mg PO BID [facility] Last Admin: 10/13/18 17:28 Dose: 20 mg Levetiracetam (Keppra) 750 mg PO BID [facility] Last Admin: 10/13/18 17:25 Dose: 750 mg Levothyroxine Sodium (Synthroid) 50 mcg PO 0600 [facility] Last Admin: 10/13/18 05:55 Dose: 50 mcg Methylprednisolone (Solu-Medrol) 40 mg IVP Q8H [facility] Stop: 10/14/18 02:01 Last Admin: 10/13/18 17:25 Dose: 40 mg Pantoprazole Sodium (Protonix Susp) 40 mg PO 0600 [facility] Last Admin: 10/13/18 05:58 Dose: 40 mg Rosuvastatin Calcium (Crestor) 10 mg PO HS [facility] Last Admin: 10/12/18 22:18 Dose: 10 mg - Labs Labs: 10/13/18 06:20 10/13/18 06:20 PT 13.9 SECONDS (9.7-12.2) H 10/06/18 21:04 INR 1.3 10/06/18 21:04 APTT 45 SECONDS (21-34) H D 10/06/18 21:04 Assessment and Plan (1) Acute on chronic renal failure Status: Acute (2) Diabetic nephropathy associated with type 2 diabetes mellitus Status: Acute (3) Uremia, acute Status: Acute
--- NOTE | 2018-10-13 22:20 | CP.PCM.PN ---
Subjective - Date & Time of Evaluation Date of Evaluation: 10/13/18 Time of Evaluation: 18:40 - Subjective Subjective: Pt seen and examined. Not in distress on CPAP. Awake Physical Examination - Constitutional Appears: Non-toxic, No Acute Distress - Head Exam Head Exam: ATRAUMATIC, NORMOCEPHALIC - ENT Exam ENT Exam: Mucous Membranes Moist - Respiratory Exam Respiratory Exam: Clear to Ausculation Bilateral. absent: Rhonchi, Wheezes - Cardiovascular Exam Cardiovascular Exam: REGULAR RHYTHM, +S1, +S2 - GI/Abdominal Exam GI & Abdominal Exam: Soft. absent: Guarding, Rigid, Tenderness - Extremities Exam Extremities Exam: absent: Pedal Edema, Tenderness - Neurological Exam Neurological Exam: absent: Alert, Awake, Oriented x3 - Psychiatric Exam Psychiatric exam: absent: Normal Affect, Normal Mood - Skin Skin Exam: Dry, Intact, Normal Color, Warm Assessment and Plan - Assessment and Plan (Free Text) Assessment: 72 year old female with past medical history of CAD, CHF, HTN, HLD, pituitary adenoma, is being seen s/p respiratory arrest during AV fistula placement surgery. Respiratory failure - Currently intubated. Management per primary care team - Completed hypothermic protocol HTN - Continue hydralazine HLD - Continue statin therapy with crestor CAD - Continue aspirin and statin therapy CKD on HD - S/p right permacath placed on 10/11. Objective - Vital Signs/Intake and Output Vital Signs (last 24 hours): Temp Pulse Resp BP Pulse Ox 97.5 F L 57 L 18 162/70 H 98 10/13/18 20:00 10/13/18 21:05 10/13/18 20:00 10/13/18 21:05 10/13/18 21:05 Intake and Output: 10/13/18 10/14/18 18:59 06:59 Intake Total 1132.4 103.2 Output Total 1800 0 Balance -667.6 103.2 - Medications Medications: Current Medications Acetaminophen (Tylenol 325mg Tab) 650 mg PO Q6 PRN PRN Reason: pain+fever Last Admin: 10/09/18 09:59 Dose: 650 mg Albuterol/Ipratropium (Duoneb 3 Mg/0.5 Mg (3 Ml) Ud) 3 ml INH RQ6 [facility] Last Admin: 10/13/18 19:55 Dose: 3 ml Aspirin (Aspirin Chewable) 81 mg PO DAILY [facility] Last Admin: 10/13/18 10:26 Dose: 81 mg Carvedilol (Coreg) 6.25 mg PO BID [facility] Epoetin Dedrick (Procrit) 10,000 unit IV TTS [facility] Last Admin: 10/13/18 15:58 Dose: 10,000 unit Heparin Sodium (Porcine) (Heparin) 5,000 units SC Q12 [facility] Last Admin: 10/13/18 22:17 Dose: 5,000 units Hydralazine HCl (Apresoline) 100 mg PO Q8H [facility] Last Admin: 10/13/18 16:03 Dose: 100 mg Ferric Sodium Gluconate Complex 125 mg/ Sodium Chloride 110 mls @ 110 mls/hr IVPB DAILY [facility] Stop: 10/14/18 10:01 Last Admin: 10/13/18 11:25 Dose: 110 mls/hr Dexmedetomidine HCl 200 mcg/ (Sodium Chloride) 50 mls @ 4.38 mls/hr IV TITR PRN; Protocol PRN Reason: Agitation Last Admin: 10/13/18 15:05 Dose: 0.2 mcg/kg/hr, 4.38 mls/hr Vancomycin HCl 1 gm/ Sodium (Chloride) 250 mls @ 166.7 mls/hr IVPB TTS [facility]; Protocol Last Admin: 10/13/18 17:27 Dose: 166.7 mls/hr Nitroglycerin/Dextrose (Nitroglycerin 50 Mg/250 Ml D5w) 50 mg in 250 mls @ 7.5 mls/hr IV .Q24H [facility]; Protocol Last Admin: 10/13/18 16:06 Dose: Not Given Insulin Aspart (Novolog) 0 unit SC Q4H [facility]; Protocol Last Admin: 10/13/18 18:22 Dose: 3 units Insulin Detemir (Levemir) 25 unit SC Q12 [facility] Last Admin: 10/13/18 10:28 Dose: 25 units Isosorbide Dinitrate (Isordil) 20 mg PO BID [facility] Last Admin: 10/13/18 17:28 Dose: 20 mg Levetiracetam (Keppra) 750 mg PO BID [facility] Last Admin: 10/13/18 17:25 Dose: 750 mg Levothyroxine Sodium (Synthroid) 50 mcg PO 0600 [facility] Last Admin: 10/13/18 05:55 Dose: 50 mcg Methylprednisolone (Solu-Medrol) 40 mg IVP Q8H [facility] Stop: 10/14/18 02:01 Last Admin: 10/13/18 17:25 Dose: 40 mg Pantoprazole Sodium (Protonix Susp) 40 mg PO 0600 [facility] Last Admin: 10/13/18 05:58 Dose: 40 mg Rosuvastatin Calcium (Crestor) 10 mg PO HS [facility] Last Admin: 10/13/18 22:14 Dose: 10 mg - Labs Labs: 10/13/18 06:20 10/13/18 06:20 PT 13.9 SECONDS (9.7-12.2) H 10/06/18 21:04 INR 1.3 10/06/18 21:04 APTT 45 SECONDS (21-34) H D 10/06/18 21:04
[2018-10-14] MEDS: Dexmedetomidine Hydrochloride 200 MCG in Sodium Chloride 0.9% 48 ML IV PRN ×2 (01:29→18:35)
[2018-10-14] MEDS: MethylPREDNISolone 40 mg Vial IVP SCH (01:31)
[2018-10-14] MEDS: (Novolog) Insulin Aspart, Recombinant 100 u/ml 10 ml vial SC SCH ×6 (01:37→22:37)
[2018-10-14 06:12] LABS: ABG ALLEN TEST POS; ARTERIAL BLOOD GAS HCO3 25.3 mmol/L (21-28); ARTERIAL BLOOD GAS O2 SAT 97.6 % (95-98); ARTERIAL BLOOD GAS PCO2 50 mm/Hg (35-45); ARTERIAL BLOOD GAS PH 7.34 (7.35-7.45); ARTERIAL BLOOD GAS PO2 89 mm/Hg (80-100); ARTERIAL BLOOD GAS TCO2 28.5 mmol/L (22-28)
[2018-10-14] MEDS: Pantoprazole 40 mg Susp UD PO SCH (06:18)
[2018-10-14] MEDS: Levothyroxine 50 MCG TAB PO SCH (06:18)
[2018-10-14 06:42] LABS: BASO % 0.2 % (0.0-2.0); HEMOGLOBIN 8.7 g/dL (11.0-16.0); LYMPH # 1.1 K/uL (1.0-4.3); LYMPH % 4.9 % (20.0-40.0); MEAN CELL VOLUME 87.9 fL (81.0-99.0); MEAN CORPUSCULAR HEMOGLOBIN 27.4 pg (27.0-31.0); MEAN CORPUSCULAR HGB CONC 31.2 g/dL (33.0-37.0); MEAN PLATELET VOLUME 10.1 fL (7.2-11.7); MONO # 1.1 K/uL (0.0-0.8); MONO % 4.8 % (0.0-10.0); NEUT # 19.9 K/uL (1.8-7.0); NEUT % 90.1 % (50.0-75.0); NRBC % 0.2 % (0.0-2.0); PLATELET COUNT 246 K/uL (130-400); RBC 3.17 Mil/uL (3.80-5.20); RED CELL DISTRIBUTION WIDTH 15.5 % (11.5-14.5); WHITE BLOOD COUNT 22.1 K/uL (4.8-10.8)
[2018-10-14 07:01] LABS: ALB/GLOB RATIO 1.2 (1.0-2.1); ALBUMIN 3.6 g/dL (3.5-5.0); CALCIUM 8.5 mg/dl (8.6-10.4)
[2018-10-14] MEDS: Albuterol-Ipratrop 3 mg / 0.5 (3 ml) UD INH SCH ×3 (07:50→20:29)
[2018-10-14 08:47] LABS: ANISOCYTOSIS SLIGHT; BANDS 3 % (0-2); HYPOCHROMIC SLIGHT; LYMPHOCYTE 3 % (20-40); MONOCYTE 2 % (0-10); NEUTROPHIL 92 % (50-75); PLATELET ESTIMATE NORMAL (NORMAL); POLYCHROMIC SLIGHT; TOTAL CELLS COUNTED 100
[2018-10-14] MEDS: levETIRAcetam 100 mg/ml (5ml) Oral Syringe PO SCH ×2 (10:01→19:09)
[2018-10-14] MEDS: Insulin Detemir 100 units/ml Vial (Levemir) SC SCH ×2 (10:03→22:36)
--- NOTE | 2018-10-14 10:10 | RAD ---
Date of service: 10/14/2018 HISTORY: congestion COMPARISON: 10/13/2018. FINDINGS: The endotracheal tube terminates in the mid trachea. The nasogastric tube terminates in the stomach. The right PICC line terminates in the axillary vein. The right-sided dialysis catheter terminates in the right atrium LUNGS: The lungs are well inflated and clear. There is mild pulmonary venous congestion. No focal consolidation PLEURA: No pleural effusions or pneumothorax. CARDIOVASCULAR: Persistent moderate cardiomegaly. No aortic atherosclerotic calcifications present. OSSEOUS STRUCTURES: Within normal limits for the patient's age. VISUALIZED UPPER ABDOMEN: Normal. OTHER FINDINGS: None. IMPRESSION: No acute findings. Stable position of support line and tubes.
[2018-10-14] MEDS: Ferric Sodium Gluconat Complex 125 MG in Sodium Chloride 0.9% 100 ML IVPB SCH (10:47)
--- NOTE | 2018-10-14 11:15 | CP.PCM.PN ---
Subjective - Date & Time of Evaluation Date of Evaluation: 10/14/18 Time of Evaluation: 11:14 - Subjective Subjective: Patient tolerated CPAP, CXR reveals congestion, HD pending Objective - Vital Signs/Intake and Output Vital Signs (last 24 hours): Temp Pulse Resp BP Pulse Ox 98.1 F 72 18 185/89 H 98 10/14/18 04:00 10/14/18 07:05 10/14/18 04:00 10/14/18 10:02 10/14/18 07:05 Intake and Output: 10/14/18 10/14/18 06:59 18:59 Intake Total 512.8 44.4 Output Total 0 0 Balance 512.8 44.4 - Medications Medications: Current Medications Acetaminophen (Tylenol 325mg Tab) 650 mg PO Q6 PRN PRN Reason: pain+fever Last Admin: 10/09/18 09:59 Dose: 650 mg Albuterol/Ipratropium (Duoneb 3 Mg/0.5 Mg (3 Ml) Ud) 3 ml INH RQ6 [facility] Last Admin: 10/14/18 07:50 Dose: 3 ml Aspirin (Aspirin Chewable) 81 mg PO DAILY [facility] Last Admin: 10/14/18 10:02 Dose: 81 mg Carvedilol (Coreg) 12.5 mg PO BID [facility] Last Admin: 10/14/18 10:02 Dose: 12.5 mg Epoetin Dedrick (Procrit) 10,000 unit IV TTS [facility] Last Admin: 10/13/18 15:58 Dose: 10,000 unit Heparin Sodium (Porcine) (Heparin) 5,000 units SC Q12 [facility] Last Admin: 10/14/18 10:02 Dose: 5,000 units Hydralazine HCl (Apresoline) 100 mg PO Q8H [facility] Last Admin: 10/14/18 10:02 Dose: 100 mg Dexmedetomidine HCl 200 mcg/ (Sodium Chloride) 50 mls @ 4.38 mls/hr IV TITR PRN; Protocol PRN Reason: Agitation Last Admin: 10/14/18 01:29 Dose: 0.2 mcg/kg/hr, 4.38 mls/hr Vancomycin HCl 1 gm/ Sodium (Chloride) 250 mls @ 166.7 mls/hr IVPB TTS [facility]; Pro tocol Last Admin: 10/13/18 17:27 Dose: 166.7 mls/hr Nitroglycerin/Dextrose (Nitroglycerin 50 Mg/250 Ml D5w) 50 mg in 250 mls @ 7.5 mls/hr IV .Q24H [facility]; Protocol Last Admin: 10/13/18 16:06 Dose: Not Given Insulin Aspart (Novolog) 0 unit SC Q4H [facility]; Protocol Last Admin: 10/14/18 10:04 Dose: 4 units Insulin Detemir (Levemir) 30 unit SC Q12 [facility] Last Admin: 10/14/18 10:03 Dose: 30 u Isosorbide Dinitrate (Isordil) 20 mg PO BID [facility] Last Admin: 10/14/18 10:01 Dose: 20 mg Levetiracetam (Keppra) 750 mg PO BID [facility] Last Admin: 10/14/18 10:01 Dose: 750 mg Levothyroxine Sodium (Synthroid) 50 mcg PO 0600 [facility] Last Admin: 10/14/18 06:18 Dose: 50 mcg Pantoprazole Sodium (Protonix Susp) 40 mg PO 0600 [facility] Last Admin: 10/14/18 06:18 Dose: 40 mg Rosuvastatin Calcium (Crestor) 10 mg PO HS [facility] Last Admin: 10/13/18 22:14 Dose: 10 mg - Labs Labs: 10/14/18 06:37 10/14/18 06:37 PT 13.9 SECONDS (9.7-12.2) H 10/06/18 21:04 INR 1.3 10/06/18 21:04 APTT 45 SECONDS (21-34) H D 10/06/18 21:04 - Constitutional Appears: Well - Head Exam Head Exam: ATRAUMATIC, NORMAL INSPECTION - Eye Exam Pupil Exam: PERRL - ENT Exam ENT Exam: Mucous Membranes Moist - Respiratory Exam Respiratory Exam: Rales, NORMAL BREATHING PATTERN - Cardiovascular Exam Cardiovascular Exam: REGULAR RHYTHM, +S1, +S2, Murmur - GI/Abdominal Exam GI & Abdominal Exam: Soft, Normal Bowel Sounds - Extremities Exam Extremities Exam: Pedal Edema Assessment and Plan - Assessment and Plan (Free Text) Assessment: Patient admitted to ICU post respiratory arrest in OR. -CPAP trials tolerated -CXR reveals congestion -will need HD for negative balance -HTN: unconrolled:continue hydralazine + oral nitro + IV nitro PRN -contineu DVT/PUD ppx -Patient remains critical -on sedatoin vacation, patient became agitated -patient remains critical
[2018-10-14] MEDS: Nitroglycerin 50mg in D5W 50 MG/250 ML BOTTLE IV SCH (14:10)
--- NOTE | 2018-10-14 14:31 | CP.PCM.PN ---
Subjective - Date & Time of Evaluation Date of Evaluation: 10/14/18 Time of Evaluation: 14:30 - Subjective Subjective: Patient is still on ventilator. CPAP trial. Tolerating. No fever. WBC elevated, most likely related to the steroid infusion injection. On examination: Vital signs stable. Chest good air entry regular [place] nontender abdomen edema less than before. Labs reviewed Chest x-ray lungs is clear Assessment and recommendation: 72-year-old female with a history of CAD, hypertension, diabetes, hypercholesterolemia, obstructive sleep apnea admitted to the hospital with uremia. Complicated with cardiac arrest. Respiratory failure. We will continue the weaning process. Dialysis tomorrow. Labs. Patient also developed MRSA pneumonia, on vancomycin. Will follow the patient Objective - Vital Signs/Intake and Output Vital Signs (last 24 hours): Temp Pulse Resp BP Pulse Ox 98.7 F 70 7 L 163/70 H 96 10/14/18 12:00 10/14/18 13:05 10/14/18 08:05 10/14/18 13:05 10/14/18 13:05 Intake and Output: 10/14/18 10/14/18 06:59 18:59 Intake Total 512.8 310.8 Output Total 0 0 Balance 512.8 310.8 - Medications Medications: Current Medications Acetaminophen (Tylenol 325mg Tab) 650 mg PO Q6 PRN PRN Reason: pain+fever Last Admin: 10/09/18 09:59 Dose: 650 mg Albuterol/Ipratropium (Duoneb 3 Mg/0.5 Mg (3 Ml) Ud) 3 ml INH RQ6 [facility] Last Admin: 10/14/18 13:55 Dose: 3 ml Aspirin (Aspirin Chewable) 81 mg PO DAILY [facility] Last Admin: 10/14/18 10:02 Dose: 81 mg Carvedilol (Coreg) 12.5 mg PO BID [facility] Last Admin: 10/14/18 10:02 Dose: 12.5 mg Epoetin Dedrick (Procrit) 10,000 unit IV TTS [facility] Last Admin: 10/13/18 15:58 Dose: 10,000 unit Heparin Sodium (Porcine) (Heparin) 5,000 units SC Q12 [facility] Last Admin: 10/14/18 10:02 Dose: 5,000 units Hydralazine HCl (Apresoline) 100 mg PO Q8H [facility] Last Admin: 10/14/18 10:02 Dose: 100 mg Dexmedetomidine HCl 200 mcg/ (Sodium Chloride) 50 mls @ 4.38 mls/hr IV TITR PRN; Protocol PRN Reason: Agitation Last Admin: 10/14/18 01:29 Dose: 0.2 mcg/kg/hr, 4.38 mls/hr Vancomycin HCl 1 gm/ Sodium (Chloride) 250 mls @ 166.7 mls/hr IVPB TTS [facility]; Protocol Last Admin: 10/13/18 17:27 Dose: 166.7 mls/hr Nitroglycerin/Dextrose (Nitroglycerin 50 Mg/250 Ml D5w) 50 mg in 250 mls @ 7.5 mls/hr IV .Q24H [facility]; Protocol Last Admin: 10/13/18 16:06 Dose: Not Given Insulin Aspart (Novolog) 0 unit SC Q4H [facility]; Protocol Last Admin: 10/14/18 10:04 Dose: 4 units Insulin Detemir (Levemir) 30 unit SC Q12 [facility] Last Admin: 10/14/18 10:03 Dose: 30 u Isosorbide Dinitrate (Isordil) 20 mg PO BID [facility] Last Admin: 10/14/18 10:01 Dose: 20 mg Levetiracetam (Keppra) 750 mg PO BID [facility] Last Admin: 10/14/18 10:01 Dose: 750 mg Levothyroxine Sodium (Synthroid) 50 mcg PO 0600 [facility] Last Admin: 10/14/18 06:18 Dose: 50 mcg Pantoprazole Sodium (Protonix Susp) 40 mg PO 0600 [facility] Last Admin: 10/14/18 06:18 Dose: 40 mg Rosuvastatin Calcium (Crestor) 10 mg PO HS [facility] Last Admin: 10/13/18 22:14 Dose: 10 mg - Labs Labs: 10/14/18 06:37 10/14/18 06:37 PT 13.9 SECONDS (9.7-12.2) H 10/06/18 21:04 INR 1.3 10/06/18 21:04 APTT 45 SECONDS (21-34) H D 10/06/18 21:04 Assessment and Plan (1) Acute on chronic renal failure Status: Acute (2) Diabetic nephropathy associated with type 2 diabetes mellitus Status: Acute (3) Uremia, acute Status: Acute
--- NOTE | 2018-10-14 19:22 | CP.PCM.PN ---
Subjective - Date & Time of Evaluation Date of Evaluation: 10/14/18 Time of Evaluation: 11:05 - Subjective Subjective: Pt seen and examined. Not in distress on CPAP Physical Examination - Constitutional Appears: Non-toxic, No Acute Distress - Head Exam Head Exam: ATRAUMATIC, NORMOCEPHALIC - ENT Exam ENT Exam: Mucous Membranes Moist - Respiratory Exam Respiratory Exam: Clear to Ausculation Bilateral. absent: Rhonchi, Wheezes - Cardiovascular Exam Cardiovascular Exam: REGULAR RHYTHM, +S1, +S2 - GI/Abdominal Exam GI & Abdominal Exam: Soft. absent: Guarding, Rigid, Tenderness - Extremities Exam Extremities Exam: absent: Pedal Edema, Tenderness - Neurological Exam Neurological Exam: absent: Alert, Awake, Oriented x3 - Psychiatric Exam Psychiatric exam: absent: Normal Affect, Normal Mood - Skin Skin Exam: Dry, Intact, Normal Color, Warm Assessment and Plan - Assessment and Plan (Free Text) Assessment: 72 year old female with past medical history of CAD, CHF, HTN, HLD, pituitary adenoma, is being seen s/p respiratory arrest during AV fistula placement surgery. Respiratory failure - Currently intubated. Management per primary care team - Completed hypothermic protocol HTN - Continue hydralazine HLD - Continue statin therapy with crestor CAD - Continue aspirin and statin therapy CKD on HD - S/p right permacath placed on 10/11. Objective - Vital Signs/Intake and Output Vital Signs (last 24 hours): Temp Pulse Resp BP Pulse Ox 99.4 F 66 7 L 136/51 L 97 10/14/18 16:00 10/14/18 17:06 10/14/18 08:05 10/14/18 19:09 10/14/18 17:06 Intake and Output: 10/14/18 10/15/18 18:59 06:59 Intake Total 447.4 Output Total 0 Balance 447.4 - Medications Medications: Current Medications Acetaminophen (Tylenol 325mg Tab) 650 mg PO Q6 PRN PRN Reason: pain+fever Last Admin: 10/09/18 09:59 Dose: 650 mg Albuterol/Ipratropium (Duoneb 3 Mg/0.5 Mg (3 Ml) Ud) 3 ml INH RQ6 [facility] Last Admin: 10/14/18 13:55 Dose: 3 ml Aspirin (Aspirin Chewable) 81 mg PO DAILY [facility] Last Admin: 10/14/18 10:02 Dose: 81 mg Carvedilol (Coreg) 12.5 mg PO BID [facility] Last Admin: 10/14/18 19:09 Dose: 12.5 mg Epoetin Dedrick (Procrit) 10,000 unit IV TTS [facility] Last Admin: 10/13/18 15:58 Dose: 10,000 unit Heparin Sodium (Porcine) (Heparin) 5,000 units SC Q12 [facility] Last Admin: 10/14/18 10:02 Dose: 5,000 units Hydralazine HCl (Apresoline) 100 mg PO Q8H [facility] Last Admin: 10/14/18 17:09 Dose: 100 mg Dexmedetomidine HCl 200 mcg/ (Sodium Chloride) 50 mls @ 4.38 mls/hr IV TITR PRN ; Protocol PRN Reason: Agitation Last Admin: 10/14/18 18:35 Dose: 0.2 mcg/kg/hr, 4.38 mls/hr Vancomycin HCl 1 gm/ Sodium (Chloride) 250 mls @ 166.7 mls/hr IVPB TTS [facility]; Protocol Last Admin: 10/13/18 17:27 Dose: 166.7 mls/hr Nitroglycerin/Dextrose (Nitroglycerin 50 Mg/250 Ml D5w) 50 mg in 250 mls @ 7.5 mls/hr IV .Q24H [facility]; Protocol Last Admin: 10/14/18 14:10 Dose: 20 mcg/min, 6 mls/hr Insulin Aspart (Novolog) 0 unit SC Q4H [facility]; Protocol Last Admin: 10/14/18 19:07 Dose: 3 units Insulin Detemir (Levemir) 30 unit SC Q12 [facility] Last Admin: 10/14/18 10:03 Dose: 30 u Isosorbide Dinitrate (Isordil) 20 mg PO BID [facility] Last Admin: 10/14/18 19:09 Dose: 20 mg Levetiracetam (Keppra) 750 mg PO BID [facility] Last Admin: 10/14/18 19:09 Dose: 750 mg Levothyroxine Sodium (Synthroid) 50 mcg PO 0600 [facility] Last Admin: 10/14/18 06:18 Dose: 50 mcg Pantoprazole Sodium (Protonix Susp) 40 mg PO 0600 [facility] Last Admin: 10/14/18 06:18 Dose: 40 mg Rosuvastatin Calcium (Crestor) 10 mg PO HS [facility] Last Admin: 10/13/18 22:14 Dose: 10 mg - Labs Labs: 10/14/18 06:37 10/14/18 06:37 PT 13.9 SECONDS (9.7-12.2) H 10/06/18 21:04 INR 1.3 10/06/18 21:04 APTT 45 SECONDS (21-34) H D 10/06/18 21:04
[2018-10-15] MEDS: (Novolog) Insulin Aspart, Recombinant 100 u/ml 10 ml vial SC SCH ×6 (02:06→22:03)
[2018-10-15] MEDS: Albuterol-Ipratrop 3 mg / 0.5 (3 ml) UD INH SCH ×4 (02:32→19:59)
[2018-10-15 05:37] LABS: ABG ALLEN TEST POS; ARTERIAL BLOOD GAS HCO3 26.9 mmol/L (21-28); ARTERIAL BLOOD GAS O2 SAT 98.8 % (95-98); ARTERIAL BLOOD GAS PCO2 45 mm/Hg (35-45); ARTERIAL BLOOD GAS PO2 92 mm/Hg (80-100); ARTERIAL BLOOD GAS TCO2 29.3 mmol/L (22-28)
[2018-10-15 06:22] LABS: BASO # 0.1 K/uL (0.0-0.2); BASO % 0.5 % (0.0-2.0); EOS # 0.6 K/uL (0.0-0.7); EOS % 3.3 % (0.0-4.0); HEMOGLOBIN 8.2 g/dL (11.0-16.0); LYMPH # 2.8 K/uL (1.0-4.3); LYMPH % 15.6 % (20.0-40.0); MEAN CELL VOLUME 88.4 fL (81.0-99.0); MEAN CORPUSCULAR HEMOGLOBIN 27.2 pg (27.0-31.0); MEAN CORPUSCULAR HGB CONC 30.8 g/dL (33.0-37.0); MEAN PLATELET VOLUME 9.6 fL (7.2-11.7); MONO # 1.5 K/uL (0.0-0.8); MONO % 8.3 % (0.0-10.0); NEUT % 72.3 % (50.0-75.0); NRBC % 0.3 % (0.0-2.0); RED CELL DISTRIBUTION WIDTH 15.4 % (11.5-14.5)
[2018-10-15] MEDS: Levothyroxine 50 MCG TAB PO SCH (06:33)
[2018-10-15] MEDS: Pantoprazole 40 mg Susp UD PO SCH (06:33)
[2018-10-15 06:36] LABS: ALB/GLOB RATIO 1.2 (1.0-2.1); ALBUMIN 3.2 g/dL (3.5-5.0); CALCIUM 8.1 mg/dl (8.6-10.4)
[2018-10-15] MEDS: Dexmedetomidine Hydrochloride 200 MCG in Sodium Chloride 0.9% 48 ML IV PRN ×2 (08:54→17:30)
[2018-10-15] MEDS: levETIRAcetam 100 mg/ml (5ml) Oral Syringe PO SCH ×2 (09:02→18:16)
--- NOTE | 2018-10-15 10:23 | CP.PCM.PN ---
Subjective - Date & Time of Evaluation Date of Evaluation: 10/15/18 Time of Evaluation: 10:20 - Subjective Subjective: Remains on vent s/p dialysis 10/13- UF 1500ml sedated CXR with CHF still plans for attempted extubation noted TSAT has been low Objective - Vital Signs/Intake and Output Vital Signs (last 24 hours): Temp Pulse Resp BP Pulse Ox 99.2 F 56 L 14 138/47 L 98 10/15/18 08:00 10/15/18 08:00 10/15/18 08:00 10/15/18 09:09 10/15/18 08:00 Intake and Output: 10/15/18 10/15/18 06:59 18:59 Intake Total 571.4 168.8 Balance 571.4 168.8 - Medications Medications: Current Medications Acetaminophen (Tylenol 325mg Tab) 650 mg PO Q6 PRN PRN Reason: pain+fever Last Admin: 10/09/18 09:59 Dose: 650 mg Albuterol/Ipratropium (Duoneb 3 Mg/0.5 Mg (3 Ml) Ud) 3 ml INH RQ6 [facility] Last Admin: 10/15/18 07:20 Dose: 3 ml Aspirin (Aspirin Chewable) 81 mg PO DAILY [facility] Last Admin: 10/15/18 09:02 Dose: 81 mg Epoetin Dedrick (Procrit) 10,000 unit IV TTS [facility] Last Admin: 10/13/18 15:58 Dose: 10,000 unit Heparin Sodium (Porcine) (Heparin) 5,000 units SC Q12 [facility] Hydralazine HCl (Apresoline) 100 mg PO Q8H [facility] Last Admin: 10/15/18 09:02 Dose: 100 mg Hydrocortisone (Cortef) 10 mg PO DAILY [facility] Dexmedetomidine HCl 200 mcg/ (Sodium Chloride) 50 mls @ 4.38 mls/hr IV TITR PRN; Protocol PRN Reason: Agitation Last Admin: 10/15/18 08:54 Dose: 0.2 mcg/kg/hr, 4.38 mls/hr Vancomycin HCl 1 gm/ Sodium (Chloride) 250 mls @ 166.7 mls/hr IVPB TTS [facility]; Protocol Last Admin: 10/13/18 17:27 Dose: 166.7 mls/hr Insulin Aspart (Novolog) 0 unit SC Q4H [facility]; Protocol Last Admin: 10/15/18 06:33 Dose: Not Given Insulin Detemir (Levemir) 30 unit SC Q12 [facility] Last Admin: 10/14/18 22:36 Dose: 30 u Isosorbide Dinitrate (Isordil) 20 mg PO BID [facility] Last Admin: 10/15/18 09:09 Dose: 20 mg Levetiracetam (Keppra) 750 mg PO BID [facility] Last Admin: 10/15/18 09:02 Dose: 750 mg Levothyroxine Sodium (Synthroid) 50 mcg PO 0600 [facility] Last Admin: 10/15/18 06:33 Dose: 50 mcg Metoprolol Tartrate (Lopressor) 25 mg NG BID [facility] Pantoprazole Sodium (Protonix Susp) 40 mg PO 0600 [facility] Last Admin: 10/15/18 06:33 Dose: 40 mg Rosuvastatin Calcium (Crestor) 10 mg PO HS [facility] Last Admin: 10/14/18 22:34 Dose: 10 mg - Labs Labs: 10/15/18 06:13 10/15/18 06:13 PT 13.9 SECONDS (9.7-12.2) H 10/06/18 21:04 INR 1.3 10/06/18 21:04 APTT 45 SECONDS (21-34) H D 10/06/18 21:04 - Constitutional Appears: In Acute Distress, Chronically Ill - Head Exam Head Exam: ATRAUMATIC, NORMAL INSPECTION - Neck Exam Neck Exam: Normal Inspection. absent: Tenderness - Respiratory Exam Respiratory Exam: Rhonchi, Respiratory Distress - Cardiovascular Exam Cardiovascular Exam: REGULAR RHYTHM, +S1 - GI/Abdominal Exam GI & Abdominal Exam: Soft. absent: Tenderness - Extremities Exam Extremities Exam: Normal Inspection. absent: Tenderness - Neurological Exam Neurological Exam: Altered - Skin Skin Exam: Dry, Warm Assessment and Plan (1) ESRD (end stage renal disease) Status: Acute (2) Diabetic nephropathy associated with type 2 diabetes mellitus Status: Acute (3) CAD (coronary artery disease) Status: Acute (4) HTN (hypertension) Status: Acute - Assessment and Plan (Free Text) Plan: change dialysis to MWF attempt at extubation post dialysis Add IV Fe
[2018-10-15] MEDS ORDERED: Ferric Sodium Gluconat Complex 62.5 mg/5 ml Vial IVPB SCH (10:30)
[2018-10-15] MEDS: Insulin Detemir 100 units/ml Vial (Levemir) SC SCH ×2 (10:48→22:02)
--- NOTE | 2018-10-15 11:52 | PN ---
DATE: 10/15/2018 TIME OF EVALUATION: 7:15 a.m. NEUROLOGICAL PROBLEM: New onset of seizures related to hypoperfusion. PHYSICAL EXAMINATION: VITAL SIGNS: Blood pressure 121/46, mean arterial pressure of 71, respiratory rate 18 on vent, temperature afebrile with a pulse rate of 61. The patient is under skeletal muscle relaxant. She is obtunded. She moves all four extremities voluntarily. Reflexes are absent. Plantars are mute. Cranial nerve examination is limited at present. Th patient's condition being discussed with the attending, probably weaning today. Regarding seizures, she continue her Keppra for now. When she is medically stable and during her followup visit, the medication can be slowly tapered off if it is not necessary. At this time, I would like to sign her out from followup. If change in neuro status, I will see her back. Blu Yost MD
[2018-10-15] MEDS: Ferric Sodium Gluconat Complex 125 MG in Sodium Chloride 0.9% 100 ML IVPB SCH (12:57)
--- NOTE | 2018-10-15 14:44 | CP.PCM.PN ---
<Av Colby - Last Filed: 10/15/18 17:32> Subjective - Date & Time of Evaluation Date of Evaluation: 10/15/18 Time of Evaluation: 14:42 - Subjective Subjective: Cardiology Service: Dr. Wagoner's Service Patient seen and examined at bedside. Per nursing no acute events occurred overnight. ROS unobtainable due to patient's current clinical condition. Patient remains intubated and sedated. Objective - Vital Signs/Intake and Output Vital Signs (last 24 hours): Temp Pulse Resp BP Pulse Ox 99.2 F 63 14 169/64 H 100 10/15/18 08:00 10/15/18 14:17 10/15/18 14:17 10/15/18 14:17 10/15/18 14:17 Intake and Output: 10/15/18 10/15/18 06:59 18:59 Intake Total 571.4 453.6 Balance 571.4 453.6 - Medications Medications: Current Medications Acetaminophen (Tylenol 325mg Tab) 650 mg PO Q6 PRN PRN Reason: pain+fever Last Admin: 10/09/18 09:59 Dose: 650 mg Albuterol/Ipratropium (Duoneb 3 Mg/0.5 Mg (3 Ml) Ud) 3 ml INH RQ6 [facility] Last Admin: 10/15/18 14:03 Dose: 3 ml Aspirin (Aspirin Chewable) 81 mg PO DAILY [facility] Last Admin: 10/15/18 09:02 Dose: 81 mg Epoetin Dedrick (Procrit) 10,000 unit IV TTS [facility] Last Admin: 10/13/18 15:58 Dose: 10,000 unit Heparin Sodium (Porcine) (Heparin) 5,000 units SC Q12 [facility] Last Admin: 10/15/18 10:48 Dose: 5,000 units Hydralazine HCl (Apresoline) 100 mg PO Q8H [facility] Last Admin: 10/15/18 09:02 Dose: 100 mg Hydrocortisone (Cortef) 10 mg PO DAILY [facility] Last Admin: 10/15/18 10:48 Dose: 10 mg Dexmedetomidine HCl 200 mcg/ (Sodium Chloride) 50 mls @ 4.38 mls/hr IV TITR PRN; Protocol PRN Reason: Agitation Last Admin: 10/15/18 08:54 Dose: 0.2 mcg/kg/hr, 4.38 mls/hr Vancomycin HCl 1 gm/ Sodium (Chloride) 250 mls @ 166.7 mls/hr IVPB TTS [facility]; Protocol Last Admin: 10/13/18 17:27 Dose: 166.7 mls/hr Ferric Sodium Gluconate Complex 125 mg/ Sodium Chloride 110 mls @ 110 mls/hr IVPB Q24H [facility] Stop: 10/23/18 11:31 Last Admin: 10/15/18 12:57 Dose: 110 mls/hr Insulin Aspart (Novolog) 0 unit SC Q4H [facility]; Protocol Last Admin: 10/15/18 14:36 Dose: 2 units Insulin Detemir (Levemir) 30 unit SC Q12 [facility] Last Admin: 10/15/18 10:48 Dose: 30 u Isosorbide Dinitrate (Isordil) 20 mg PO BID [facility] Last Admin: 10/15/18 09:09 Dose: 20 mg Levetiracetam (Keppra) 750 mg PO BID [facility] Last Admin: 10/15/18 09:02 Dose: 750 mg Levothyroxine Sodium (Synthroid) 50 mcg PO 0600 [facility] Last Admin: 10/15/18 06:33 Dose: 50 mcg Metoprolol Tartrate (Lopressor) 25 mg NG BID [facility] Pantoprazole Sodium (Protonix Susp) 40 mg PO 0600 [facility] Last Admin: 10/15/18 06:33 Dose: 40 mg Rosuvastatin Calcium (Crestor) 10 mg PO HS [facility] Last Admin: 10/14/18 22:34 Dose: 10 mg - Labs Labs: 10/15/18 06:13 10/15/18 06:13 PT 13.9 SECONDS (9.7-12.2) H 10/06/18 21:04 INR 1.3 10/06/18 21:04 APTT 45 SECONDS (21-34) H D 10/06/18 21:04 - Head Exam Head Exam: ATRAUMATIC, NORMAL INSPECTION, NORMOCEPHALIC - Eye Exam Eye Exam: EOMI, Normal appearance, PERRL Pupil Exam: NORMAL ACCOMODATION. absent: Irregular, Unequal - ENT Exam ENT Exam: Mucous Membranes Moist, Normal Oropharynx Additional comments: Intubated - Neck Exam Neck Exam: absent: Lymphadenopathy, Thyromegaly - Respiratory Exam Respiratory Exam: Clear to Ausculation Bilateral, NORMAL BREATHING PATTERN. absent: Respiratory Distress - Cardiovascular Exam Cardiovascular Exam: REGULAR RHYTHM, +S1. absent: RRR, Rubs - GI/Abdominal Exam GI & Abdominal Exam: Soft, Normal Bowel Sounds. absent: Rigid, Hyperactive Bowel Sounds - Extremities Exam Extremities Exam: Full ROM. absent: Joint Swelling, Pedal Edema - Neurological Exam Neurological Exam: Altered - Skin Skin Exam: Dry, Normal Color Assessment and Plan - Assessment and Plan (Free Text) Assessment: 72 year old female with past medical history of CAD, CHF, HTN, HLD, pituitary adenoma, is being seen s/p respiratory arrest during AV fistula placement surgery. Plan: Respiratory failure - Currently intubated and sedated. Management per primary care team - Completed hypothermic protocol HTN -Continue Hydralazine 100mg PO Q8H [facility] HLD -Continue Rosuvastatin 10mg PO HS [facility] CAD -Continue Aspirin 81mg PO Daily [facility] -Continue Coreg 12.5mg PO BID [facility] DM -Levemir 30UNIT sc q12 [facility] Hypothyroidism -Continue Synthroid 50mcg PO 0600 [facility] CKD on HD - S/p right permacath placed on 10/11 -Procrit 10,000 unit IV TTS All management per Dr. Wagoner. Av Colby, PGY-2 <Jimmy Wagoner - Last Filed: 10/16/18 08:15> Objective - Vital Signs/Intake and Output Vital Signs (last 24 hours): Temp Pulse Resp BP Pulse Ox 98.6 F 69 21 148/49 L 98 10/16/18 04:00 10/16/18 07:00 10/16/18 07:00 10/16/18 06:57 10/16/18 07:00 Intake and Output: 10/16/18 10/16/18 06:59 18:59 Intake Total 897.4 64.4 Balance 897.4 64.4 - Medications Medications: Current Medications Acetaminophen (Tylenol 325mg Tab) 650 mg PO Q6 PRN PRN Reason: pain+fever Last Admin: 10/09/18 09:59 Dose: 650 mg Albuterol/Ipratropium (Duoneb 3 Mg/0.5 Mg (3 Ml) Ud) 3 ml INH RQ6 [facility] Last Admin: 10/16/18 07:57 Dose: 3 ml Aspirin (Aspirin Chewable) 81 mg PO DAILY [facility] Last Admin: 10/15/18 09:02 Dose: 81 mg Epoetin Dedrick (Procrit) 10,000 unit IV [facility] Heparin Sodium (Porcine) (Heparin) 5,000 units SC Q12 [facility] Last Admin: 10/15/18 22:01 Dose: 5,000 units Hydralazine HCl (Apresoline) 100 mg PO Q8H [facility] Last Admin: 10/16/18 00:15 Dose: 100 mg Hydrocortisone (Cortef) 10 mg PO DAILY [facility] Last Admin: 10/15/18 10:48 Dose: 10 mg Dexmedetomidine HCl 200 mcg/ (Sodium Chloride) 50 mls @ 4.38 mls/hr IV TITR PRN; Protocol PRN Reason: Agitation Last Titration: 10/16/18 06:45 Dose: 0.2 mcg/kg/hr, 4.38 mls/hr Ferric Sodium Gluconate Complex 125 mg/ Sodium Chloride 110 mls @ 110 mls/hr IVPB Q24H [facility] Stop: 10/23/18 11:31 Last Admin: 10/15/18 12:57 Dose: 110 mls/hr Vancomycin HCl 1 gm/ Sodium (Chloride) 250 mls @ 166.7 mls/hr IVPB [facility]; Protocol Insulin Aspart (Novolog) 0 unit SC Q4H [facility]; Protocol Last Admin: 10/16/18 06:48 Dose: 3 units Insulin Detemir (Levemir) 30 unit SC Q12 [facility] Last Admin: 10/15/18 22:02 Dose: 30 u Isosorbide Dinitrate (Isordil) 20 mg PO BID [facility] Last Admin: 10/15/18 18:16 Dose: 20 mg Levetiracetam (Keppra) 750 mg PO BID [facility] Last Admin: 10/15/18 18:16 Dose: 750 mg Levothyroxine Sodium (Synthroid) 50 mcg PO 0600 [facility] Last Admin: 10/16/18 06:46 Dose: 50 mcg Metoprolol Tartrate (Lopressor) 25 mg NG BID [facility] Last Admin: 10/15/18 22:01 Dose: 25 mg Pantoprazole Sodium (Protonix Susp) 40 mg PO 0600 [facility] Last Admin: 10/16/18 06:46 Dose: 40 mg Rosuvastatin Calcium (Crestor) 10 mg PO HS [facility] Last Admin: 10/15/18 22:01 Dose: 10 mg - Labs Labs: 10/16/18 06:32 10/16/18 06:32 PT 13.9 SECONDS (9.7-12.2) H 10/06/18 21:04 INR 1.3 10/06/18 21:04 APTT 45 SECONDS (21-34) H D 10/06/18 21:04 Assessment and Plan - Assessment and Plan (Free Text) Plan: Patient seen and evaluated personally by me. Plan of care d/w the resident and as documented
--- NOTE | 2018-10-15 18:10 | CP.CCUPN ---
CCU Subjective - Physician Review Subjective (Free Text): PGY-[address] ICU progress note for Dr Orlando Patient seen and examined at bedside. Patient is awake, opening eyes, but not alert or oriented. On ventilator and CPAP trail, tolerating. Unable to obatin ROS due to patient's mental status. Patient receiving HD at time of encounter. 10/15/18 18:06 Critical Care Time Spent (in minutes): 40 CCU Objective - Vital Signs / Intake & Output Vital Signs (Last 4 hours): Vital Signs Temp Pulse Pulse Resp BP BP Pulse Ox 10/15/18 17:40 98.1 F 63 20 126/73 99 10/15/18 17:25 111/75 10/15/18 17:10 115/67 10/15/18 16:55 102/57 L 10/15/18 16:40 128/52 L 10/15/18 16:25 113/65 10/15/18 16:10 130/66 10/15/18 15:55 134/58 L 10/15/18 15:40 132/60 10/15/18 15:25 138/58 L 10/15/18 15:10 114/52 L 10/15/18 14:55 122/59 L 10/15/18 14:40 113/49 L 10/15/18 14:25 114/53 L 10/15/18 14:17 63 14 169/64 H 100 10/15/18 14:11 64 14 164/68 H 100 10/15/18 14:10 98.5 F 62 19 169/68 H 100 Intake and Output (Last 8hrs): Intake & Output 10/15/18 10/15/18 10/15/18 06:59 14:59 22:59 Intake Total 415.2 638.4 Balance 415.2 638.4 Weight 208 lb 12.444 oz Intake: IV 50 Intake, IV Amount 35.2 48.4 Right Hand 0 Right arm Midline 35.2 48.4 Tube Feeding 380 440 Other 100 Other: # Voids Urine, Voided 0 0 # Bowel Movements 0 1 - Physical Exam Head: Positive for: Atraumatic, Normocephalic Extroacular Muscles: Positive for: EOMI (dropping eyelid left) Conjunctiva: Positive for: Normal Mouth: Positive for: Dry, Other (intubated ETT in place) Respiratory/Chest: Positive for: Good Air Exchange. Negative for: Respiratory Distress Cardiovascular: Positive for: Regular Rate and Rhythm, Normal S1, S2 Abdomen: Positive for: Normal Bowel Sounds. Negative for: Tenderness, Dist ention, Rebound, Guarding Upper Extremity: Positive for: Normal Inspection. Negative for: Cyanosis Lower Extremity: Positive for: Normal Inspection Neurological: Positive for: Other (unable to assess due to patient condition). Negative for: GCS=15 Skin: Positive for: Warm, Dry, Normal Color, Other (permacath in place, right femoral TLC) Psychiatric: Negative for: Alert, Oriented x 3 - Medications Active Medications: Active Medications Generic Name Dose Route Start Last Admin Trade Name Freq PRN Reason Stop Dose Admin Acetaminophen 650 mg 10/08/18 10:08 10/09/18 09:59 Tylenol 325mg Tab PO 650 mg Q6 PRN Administration pain+fever Albuterol/Ipratropium 3 ml 10/12/18 14:00 10/15/18 14:03 Duoneb 3 Mg/0.5 Mg (3 Ml) Ud INH 3 ml RQ6 JOCELYN Administration Aspirin 81 mg 10/08/18 10:00 10/15/18 09:02 Aspirin Chewable PO 81 mg DAILY JOCELYN Administration Epoetin Dedrick 10,000 unit 10/04/18 10:00 10/13/18 15:58 Procrit IV 10,000 unit TTS JOCELYN Administration Heparin Sodium (Porcine) 5,000 units 10/15/18 10:00 10/15/18 10:48 Heparin SC 5,000 units Q12 JOCELYN Administration Hydralazine HCl 100 mg 10/13/18 08:56 10/15/18 09:02 Apresoline PO 100 mg Q8H JOCELYN Administration Hydrocortisone 10 mg 10/15/18 10:00 10/15/18 10:48 Cortef PO 10 mg DAILY JOCELYN Administration Dexmedetomidine HCl 200 mcg/ 50 mls @ 4.38 mls/hr 10/12/18 09:02 10/15/18 08:54 Sodium Chloride IV 0.2 mcg/kg/hr TITR PRN 4.38 mls/hr Agitation Administration Protocol 0.2 MCG/KG/HR Vancomycin HCl 1 gm/ Sodium 250 mls @ 166.7 mls/hr 10/13/18 10:00 10/13/18 17:27 Chloride IVPB 166.7 mls/hr TTS JOCELYN Administration Protocol Ferric Sodium Gluconate 110 mls @ 110 mls/hr 10/15/18 11:30 10/15/18 12:57 Complex 125 mg/ Sodium IVPB 10/23/18 11:31 110 mls/hr Chloride Q24H JOCELYN Administration Insulin Aspart 0 unit 10/14/18 22:00 10/15/18 14:36 Novolog SC 2 units Q4H JOCELYN Administration Protocol Insulin Detemir 30 unit 10/14/18 10:00 10/15/18 10:48 Levemir SC 30 u Q12 JOCELYN Administration Isosorbide Dinitrate 20 mg 10/13/18 10:00 10/15/18 09:09 Isordil PO 20 mg BID JOCELYN Administration Levetiracetam 750 mg 10/08/18 10:00 10/15/18 09:02 Keppra PO 750 mg BID JOCELYN Administration Levothyroxine Sodium 50 mcg 09/29/18 08:00 10/15/18 06:33 Synthroid PO 50 mcg 0600 JOCELYN Administration Metoprolol Tartrate 25 mg 10/15/18 22:00 Lopressor NG BID JOCELYN Pantoprazole Sodium 40 mg 10/09/18 06:00 10/15/18 06:33 Protonix Susp PO 40 mg 0600 JOCELYN Administration Rosuvastatin Calcium 10 mg 09/30/18 22:00 10/14/18 22:34 Crestor PO 10 mg HS JOCELYN Administration - Patient Studies Lab Studies: Microbiology Studies 10/13/18 13:50 Gram Stain - Final Trachasp Sputum Culture - Final Citrobacter Diversus Methicillin Resistant S Aureus Lab Studies 10/15/18 10/15/18 10/15/18 Range/Units 14:28 10:41 06:13 WBC (4.8-10.8) K/uL RBC (3.80-5.20) Mil/uL Hgb (11.0-16.0) g/dL Hct (34.0-47.0) % MCV (81.0-99.0) fL MCH (27.0-31.0) pg MCHC (33.0-37.0) g/dL RDW (11.5-14.5) % Plt Count (130-400) K/uL MPV (7.2-11.7) fL Neut % (Auto) (50.0-75.0) % Lymph % (Auto) (20.0-40.0) % [place] % (Auto) (0.0-10.0) % Eos % (Auto) (0.0-4.0) % Baso % (Auto) (0.0-2.0) % Neut # (Auto) (1.8-7.0) K/uL Lymph # (Auto) (1.0-4.3) K/uL [place] # (Auto) (0.0-0.8) K/uL Eos # (Auto) (0.0-0.7) K/uL Baso # (Auto) (0.0-0.2) K/uL Puncture Site pCO2 (35-45) mm/Hg pO2 (80-100) mm/Hg HCO3 (21-28) mmol/L ABG pH (7.35-7.45) ABG Total CO2 (22-28) mmol/L ABG O2 Saturation (95-98) % ABG Base Excess (-2.0-3.0) mmol/L Jimenez Test ABG Potassium (3.6-5.2) mmol/L A-a O2 Difference mm/Hg Respiratory Index Sodium 139 (132-148) mmol/l Chloride 102 (98-107) mmol/L Glucose (65-105) mg/dl Lactate (0.7-2.1) mmol/L Vent Mode Mechanical Rate FiO2 % Tidal Volume PEEP Potassium 3.9 (3.6-5.2) mmol/L Carbon Dioxide 28 (22-30) mmol/L Anion Gap 13 (10-20) BUN 54 H (7-17) mg/dL Creatinine 3.9 H (0.7-1.2) mg/dL Est GFR ( Amer) 14 Est GFR (Non-Af Amer) 11 POC Glucose (mg/dL) 165 H 124 H (65-110) mg/dL Random Glucose 115 H D (65-105) mg/dL Calcium 8.1 L (8.6-10.4) mg/dl Phosphorus 3.4 (2.5-4.5) mg/dL Magnesium 2.2 (1.6-2.3) mg/dL Total Bilirubin 0.3 (0.2-1.3) mg/dL AST 45 H D (14-36) U/L ALT 34 (9-52) U/L Alkaline Phosphatase 106 (38-126) U/L Total Protein 5.8 L (6.3-8.3) g/dL Albumin 3.2 L (3.5-5.0) g/dL Globulin 2.7 (2.2-3.9) gm/dL Albumin/Globulin Ratio 1.2 (1.0-2.1) Arterial Blood Potassium (3.6-5.2) mmol/L 10/15/18 10/15/18 10/15/18 Range/Units 06:13 06:11 05:20 WBC 18.0 H (4.8-10.8) K/uL RBC 3.00 L (3.80-5.20) Mil/uL Hgb 8.2 L (11.0-16.0) g/dL Hct 26.5 L (34.0-47.0) % MCV 88.4 (81.0-99.0) fL MCH 27.2 (27.0-31.0) pg MCHC 30.8 L (33.0-37.0) g/dL RDW 15.4 H (11.5-14.5) % Plt Count 298 (130-400) K/uL MPV 9.6 (7.2-11.7) fL Neut % (Auto) 72.3 (50.0-75.0) % Lymph % (Auto) 15.6 L (20.0-40.0) % [place] % (Auto) 8.3 (0.0-10.0) % Eos % (Auto) 3.3 (0.0-4.0) % Baso % (Auto) 0.5 (0.0-2.0) % Neut # (Auto) 13.0 H (1.8-7.0) K/uL Lymph # (Auto) 2.8 (1.0-4.3) K/uL [place] # (Auto) 1.5 H (0.0-0.8) K/uL Eos # (Auto) 0.6 (0.0-0.7) K/uL Baso # (Auto) 0.1 (0.0-0.2) K/uL Puncture Site Rradial pCO2 45 (35-45) mm/Hg pO2 92 (80-100) mm/Hg HCO3 26.9 (21-28) mmol/L ABG pH 7.40 (7.35-7.45) ABG Total CO2 29.3 H (22-28) mmol/L ABG O2 Saturation 98.8 H (95-98) % ABG Base Excess 2.5 (-2.0-3.0) mmol/L Jimenez Test Pos ABG Potassium 3.4 L (3.6-5.2) mmol/L A-a O2 Difference 101.0 mm/Hg Respiratory Index 1.1 Sodium 141.0 (132-148) mmol/l Chloride 109.0 H (98-107) mmol/L Glucose 108 H (65-105) mg/dl Lactate 0.7 (0.7-2.1) mmol/L Vent Mode Prvc Mechanical Rate 14 FiO2 35.0 % Tidal Volume 350 PEEP 5 Potassium (3.6-5.2) mmol/L Carbon Dioxide (22-30) mmol/L Anion Gap (10-20) BUN (7-17) mg/dL Creatinine (0.7-1.2) mg/dL Est GFR ( Amer) Est GFR (Non-Af Amer) POC Glucose (mg/dL) 124 H (65-110) mg/dL Random Glucose (65-105) mg/dL Calcium (8.6-10.4) mg/dl Phosphorus (2.5-4.5) mg/dL Magnesium (1.6-2.3) mg/dL Total Bilirubin (0.2-1.3) mg/dL AST (14-36) U/L ALT (9-52) U/L Alkaline Phosphatase (38-126) U/L Total Protein (6.3-8.3) g/dL Albumin (3.5-5.0) g/dL Globulin (2.2-3.9) gm/dL Albumin/Globulin Ratio (1.0-2.1) Arterial Blood Potassium 3.4 L (3.6-5.2) mmol/L 10/15/18 10/14/18 10/14/18 Range/Units 01:40 23:31 22:30 WBC (4.8-10.8) K/uL RBC (3.80-5.20) Mil/uL Hgb (11.0-16.0) g/dL Hct (34.0-47.0) % MCV (81.0-99.0) fL MCH (27.0-31.0) pg MCHC (33.0-37.0) g/dL RDW (11.5-14.5) % Plt Count (130-400) K/uL MPV (7.2-11.7) fL Neut % (Auto) (50.0-75.0) % Lymph % (Auto) (20.0-40.0) % [place] % (Auto) (0.0-10.0) % Eos % (Auto) (0.0-4.0) % Baso % (Auto) (0.0-2.0) % Neut # (Auto) (1.8-7.0) K/uL Lymph # (Auto) (1.0-4.3) K/uL [place] # (Auto) (0.0-0.8) K/uL Eos # (Auto) (0.0-0.7) K/uL Baso # (Auto) (0.0-0.2) K/uL Puncture Site pCO2 (35-45) mm/Hg pO2 (80-100) mm/Hg HCO3 (21-28) mmol/L ABG pH (7.35-7.45) ABG Total CO2 (22-28) mmol/L ABG O2 Saturation (95-98) % ABG Base Excess (-2.0-3.0) mmol/L Jimenez Test ABG Potassium (3.6-5.2) mmol/L A-a O2 Difference mm/Hg Respiratory Index Sodium (132-148) mmol/l Chloride (98-107) mmol/L Glucose (65-105) mg/dl Lactate (0.7-2.1) mmol/L Vent Mode Mechanical Rate FiO2 % Tidal Volume PEEP Potassium (3.6-5.2) mmol/L Carbon Dioxide (22-30) mmol/L Anion Gap (10-20) BUN (7-17) mg/dL Creatinine (0.7-1.2) mg/dL Est GFR ( Amer) Est GFR (Non-Af Amer) POC Glucose (mg/dL) 172 H 201 H 233 H (65-110) mg/dL Random Glucose (65-105) mg/dL Calcium (8.6-10.4) mg/dl Phosphorus (2.5-4.5) mg/dL Magnesium (1.6-2.3) mg/dL Total Bilirubin (0.2-1.3) mg/dL AST (14-36) U/L ALT (9-52) U/L Alkaline Phosphatase (38-126) U/L Total Protein (6.3-8.3) g/dL Albumin (3.5-5.0) g/dL Globulin (2.2-3.9) gm/dL Albumin/Globulin Ratio (1.0-2.1) Arterial Blood Potassium (3.6-5.2) mmol/L Laboratory Results - last 24 hr 10/14/18 10/14/18 10/15/18 22:30 23:31 01:40 WBC RBC Hgb Hct MCV MCH MCHC RDW Plt Count MPV Neut % (Auto) Lymph % (Auto) [place] % (Auto) Eos % (Auto) Baso % (Auto) Neut # (Auto) Lymph # (Auto) [place] # (Auto) Eos # (Auto) Baso # (Auto) Puncture Site pCO2 pO2 HCO3 ABG pH ABG Total CO2 ABG O2 Saturation ABG Base Excess Jimenez Test ABG Potassium A-a O2 Difference Respiratory Index Sodium Chloride Glucose Lactate Vent Mode Mechanical Rate FiO2 Tidal Volume PEEP Potassium Carbon Dioxide Anion Gap BUN Creatinine Est GFR ( Amer) Est GFR (Non-Af Amer) POC Glucose (mg/dL) 233 H 201 H 172 H Random Glucose Calcium Phosphorus Magnesium Total Bilirubin AST ALT Alkaline Phosphatase Total Protein Albumin Globulin Albumin/Globulin Ratio Arterial Blood Potassium 10/15/18 10/15/18 10/15/18 05:20 06:11 06:13 WBC 18.0 H RBC 3.00 L Hgb 8.2 L Hct 26.5 L MCV 88.4 MCH 27.2 MCHC 30.8 L RDW 15.4 H Plt Count 298 MPV 9.6 Neut % (Auto) 72.3 Lymph % (Auto) 15.6 L [place] % (Auto) 8.3 Eos % (Auto) 3.3 Baso % (Auto) 0.5 Neut # (Auto) 13.0 H Lymph # (Auto) 2.8 [place] # (Auto) 1.5 H Eos # (Auto) 0.6 Baso # (Auto) 0.1 Puncture Site Rradial pCO2 45 pO2 92 HCO3 26.9 ABG pH 7.40 ABG Total CO2 29.3 H ABG O2 Saturation 98.8 H ABG Base Excess 2.5 Jimenez Test Pos ABG Potassium 3.4 L A-a O2 Difference 101.0 Respiratory Index 1.1 Sodium 141.0 Chloride 109.0 H Glucose 108 H Lactate 0.7 Vent Mode Prvc Mechanical Rate 14 FiO2 35.0 Tidal Volume 350 PEEP 5 Potassium Carbon Dioxide Anion Gap BUN Creatinine Est GFR ( Amer) Est GFR (Non-Af Amer) POC Glucose (mg/dL) 124 H Random Glucose Calcium Phosphorus Magnesium Total Bilirubin AST ALT Alkaline Phosphatase Total Protein Albumin Globulin Albumin/Globulin Ratio Arterial Blood Potassium 3.4 L 10/15/18 10/15/18 10/15/18 06:13 10:41 14:28 WBC RBC Hgb Hct MCV MCH MCHC RDW Plt Count MPV Neut % (Auto) Lymph % (Auto) [place] % (Auto) Eos % (Auto) Baso % (Auto) Neut # (Auto) Lymph # (Auto) [place] # (Auto) Eos # (Auto) Baso # (Auto) Puncture Site pCO2 pO2 HCO3 ABG pH ABG Total CO2 ABG O2 Saturation ABG Base Excess Jimenez Test ABG Potassium A-a O2 Difference Respiratory Index Sodium 139 Chloride 102 Glucose Lactate Vent Mode Mechanical Rate FiO2 Tidal Volume PEEP Potassium 3.9 Carbon Dioxide 28 Anion Gap 13 BUN 54 H Creatinine 3.9 H Est GFR ( Amer) 14 Est GFR (Non-Af Amer) 11 POC Glucose (mg/dL) 124 H 165 H Random Glucose 115 H D Calcium 8.1 L Phosphorus 3.4 Magnesium 2.2 Total Bilirubin 0.3 AST 45 H D ALT 34 Alkaline Phosphatase 106 Total Protein 5.8 L Albumin 3.2 L Globulin 2.7 Albumin/Globulin Ratio 1.2 Arterial Blood Potassium EKG/Cardiology Studies: Cardiology / EKG Studies 10/15/18 09:17 EKG [ELECTROCARDIOGRAM] Stat Comment: Mode Of Transportation: Reason For Exam: bradycardia Isolation: Contact Precautions: Seizure Fingerstick Blood Sugar Results: 165 Review of Systems - Review of Systems Systems not reviewed;Unavailable: Acuity of Condition Critical Care Progress Note - Ventilator Checklist Head of Bed 30 Degrees: Yes Daily Sedation Vacation: Yes Daily Assessment of Readiness to Wean: Yes Daily Spontaneous Breathing Trial: Yes PUD Prophalyxis: Yes DVT Prophylaxis: Yes Oral Care with Chlorhexidine Gluconate {CHG}: Yes - Vent Settings MODE:: PRVC TIDAL VOLUME:: 450 RESP RATE:: 14 FIO2:: 40 PEEP:: 5 - Extremities/Vascular Does the Patient have a Central Venous Catheter?: Yes Does the Patient need a Central Venous Catheter?: Yes Does the Patient have a Rodriguez Catheter?: Yes Does the Patient need a Rodriguez Catheter?: Yes Catheter Insertion Criteria: Need for accurate measurement of output in critically ill patient - Restraints Justification for Restraints: High risk for self extubation, High risk for removing IV access, High risk for harming self - Prophylaxis GI Prophylaxis GI: PPI - Prophylaxis DVT Prophylaxis DVT: Heparin SQ Assessment/Plan - Assessment and Plan (Free Text) Plan: Patient is a 72 yo female w/ PMH of CKD5, CHF, CAD s/p stents, pituiatry adenoma s/p resection, DM2 admitted for respiratory and cardiac arrest s/p permacath placement and AVF on 10-05. s/p permacath on 10-11-18; possible AMS due to anoxic brain injury, now on HD MWF, On CPAP trial, planning for extubation Neuro Intubated and Sedated Kera CV Hydralazine 100mg PO Q8H Metoprolol 25mg NG BID Isordil 30 mg PO BID Crestor Aspirin s/p cardiac arrest; code freeze completed Dr Yost consult Pulm Intubated; Vent settings as per ICU weaning process - CPAP trial - plan for extubation - will follow up Duoneb q6 Solumedrol q8 6 doses plan for extubation s/p permacath placement MRSA PNA on vanco GI Tube feedings glucerna 1.5, 20 cc/hr, increase by 5 cc/hr, goal rate 60 cc/hr Protonix Heme EPO w/ Diaylsis Ferric sodium drip Renal ESRD- changed to MWF sessions - today one session EPO TTHS Bumex 2mg 1 x permacath placed on 10-11 Dr Segundo Endo Levemir Insulin regular Levothyroxine Hydrocortisone Q6 accuchecks ID +[id number] on 10-07 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 asp Zosyn Vanc with dialysis (MWF) DVT ppx: Heparin GI ppx: Protonix Plan discussed with Dr Darion Patton, PGY-1 - Date & Time Date: 10/15/18 Time: 14:00
[2018-10-16] MEDS: Albuterol-Ipratrop 3 mg / 0.5 (3 ml) UD INH SCH ×4 (01:01→19:14)
[2018-10-16] MEDS: (Novolog) Insulin Aspart, Recombinant 100 u/ml 10 ml vial SC SCH ×6 (02:25→23:00)
[2018-10-16 06:09] LABS: ABG ALLEN TEST POS; ARTERIAL BLOOD GAS HCO3 27.9 mmol/L (21-28); ARTERIAL BLOOD GAS HEMOGLOBIN 8.8 g/dL (11.7-17.4); ARTERIAL BLOOD GAS O2 SAT 99.2 % (95-98); ARTERIAL BLOOD GAS PCO2 47 mm/Hg (35-45); ARTERIAL BLOOD GAS PO2 86 mm/Hg (80-100); ARTERIAL BLOOD GAS TCO2 30.5 mmol/L (22-28)
[2018-10-16 06:41] LABS: BASO # 0.2 K/uL (0.0-0.2); EOS # 1.7 K/uL (0.0-0.7); EOS % 9.3 % (0.0-4.0); HEMOGLOBIN 9.3 g/dL (11.0-16.0); LYMPH # 2.8 K/uL (1.0-4.3); LYMPH % 15.1 % (20.0-40.0); MEAN CELL VOLUME 88.6 fL (81.0-99.0); MEAN CORPUSCULAR HEMOGLOBIN 28.1 pg (27.0-31.0); MEAN CORPUSCULAR HGB CONC 31.7 g/dL (33.0-37.0); MEAN PLATELET VOLUME 9.4 fL (7.2-11.7); MONO # 1.5 K/uL (0.0-0.8); MONO % 8.1 % (0.0-10.0); NEUT # 12.4 K/uL (1.8-7.0); NEUT % 66.5 % (50.0-75.0); NRBC % 0.3 % (0.0-2.0); RBC 3.32 Mil/uL (3.80-5.20); RED CELL DISTRIBUTION WIDTH 15.5 % (11.5-14.5); WHITE BLOOD COUNT 18.6 K/uL (4.8-10.8)
[2018-10-16] MEDS: Levothyroxine 50 MCG TAB PO SCH (06:46)
[2018-10-16] MEDS: Pantoprazole 40 mg Susp UD PO SCH (06:46)
[2018-10-16 06:58] LABS: ALB/GLOB RATIO 1.2 (1.0-2.1); ALBUMIN 3.3 g/dL (3.5-5.0); CALCIUM 7.7 mg/dl (8.6-10.4)
--- NOTE | 2018-10-16 08:15 | RAD ---
Date of service: 10/16/2018 HISTORY: intubated COMPARISON: Portable chest 10/14/2018. FINDINGS: LUNGS: Endotracheal and nasogastric tubes are not significantly changed in position as well as right central venous dialysis catheter and midline right PICC. Examination is not adequately penetrated but no definitive infiltrate is appreciated bilaterally. PLEURA: No significant pleural effusion identified, no pneumothorax apparent. CARDIOVASCULAR: No aortic atherosclerotic calcification present. Cardiomegaly appears stable. No definite pulmonary vascular congestion evident. No pulmonary vascular congestion. OSSEOUS STRUCTURES: No significant abnormalities. VISUALIZED UPPER ABDOMEN: Normal. OTHER FINDINGS: None. IMPRESSION: Stable cardiomegaly. No definite interval pulmonary vascular congestion, infiltrate or pleural effusion bilaterally. Tubes and catheters stable as discussed above.
[2018-10-16] MEDS: levETIRAcetam 100 mg/ml (5ml) Oral Syringe PO SCH ×2 (10:10→17:56)
[2018-10-16] MEDS: Mupirocin 2% Ointment (NASAL) NAS SCH ×2 (10:11→18:31)
[2018-10-16] MEDS: Dexmedetomidine Hydrochloride 200 MCG in Sodium Chloride 0.9% 48 ML IV PRN ×3 (10:12→22:30)
--- NOTE | 2018-10-16 10:24 | CP.PCM.PN ---
Subjective - Date & Time of Evaluation Date of Evaluation: 10/16/18 Time of Evaluation: 10:22 - Subjective Subjective: seen and examined no events s/p hd yesterday remains intubated. agitated leukocytosis noted daughter at bedside, care discussed w/ her Objective - Vital Signs/Intake and Output Vital Signs (last 24 hours): Temp Pulse Resp BP Pulse Ox 98.4 F 70 10 L 147/52 L 100 10/16/18 08:00 10/16/18 09:00 10/16/18 09:00 10/16/18 10:11 10/16/18 09:00 Intake and Output: 10/16/18 10/16/18 06:59 18:59 Intake Total 897.4 248.8 Balance 897.4 248.8 - Medications Medications: Current Medications Acetaminophen (Tylenol 325mg Tab) 650 mg PO Q6 PRN PRN Reason: pain+fever Last Admin: 10/09/18 09:59 Dose: 650 mg Albuterol/Ipratropium (Duoneb 3 Mg/0.5 Mg (3 Ml) Ud) 3 ml INH RQ6 [facility] Last Admin: 10/16/18 07:57 Dose: 3 ml Aspirin (Aspirin Chewable) 81 mg PO DAILY [facility] Last Admin: 10/16/18 10:11 Dose: 81 mg Epoetin Dedrick (Procrit) 10,000 unit IV MWF [facility] Heparin Sodium (Porcine) (Heparin) 5,000 units SC Q12 [facility] Last Admin: 10/16/18 10:10 Dose: 5,000 units Hydralazine HCl (Apresoline) 50 mg PO Q8H [facility] Hydrocortisone (Cortef) 10 mg PO DAILY [facility] Last Admin: 10/16/18 10:11 Dose: 10 mg Dexmedetomidine HCl 200 mcg/ (Sodium Chloride) 50 mls @ 4.38 mls/hr IV TITR PRN; Protocol PRN Reason: Agitation Last Admin: 10/16/18 10:16 Dose: 0.1 mcg/kg/hr, 2.2 mls/hr Ferric Sodium Gluconate Complex 125 mg/ Sodium Chloride 110 mls @ 110 mls/hr IVPB Q24H [facility] Stop: 10/23/18 11:31 Last Admin: 10/15/18 12:57 Dose: 110 mls/hr Vancomycin HCl 1 gm/ Sodium (Chloride) 250 mls @ 166.7 mls/hr IVPB MWF [facility]; Protocol Insulin Aspart (Novolog) 0 unit SC Q4H [facility]; Protocol Last Admin: 10/16/18 10:12 Dose: 2 units Insulin Detemir (Levemir) 30 unit SC Q12 [facility] Last Admin: 10/15/18 22:02 Dose: 30 u Isosorbide Dinitrate (Isordil) 20 mg PO BID [facility] Last Admin: 10/16/18 10:10 Dose: 20 mg Levetiracetam (Keppra) 750 mg PO BID [facility] Last Admin: 10/16/18 10:10 Dose: 750 mg Levothyroxine Sodium (Synthroid) 50 mcg PO 0600 [facility] Last Admin: 10/16/18 06:46 Dose: 50 mcg Metoprolol Tartrate (Lopressor) 25 mg NG BID [facility] Last Admin: 10/16/18 10:11 Dose: 25 mg Mupirocin (Bactroban 2% Nasal) 0.25 gm HILLARY BID [facility] Last Admin: 10/16/18 10:11 Dose: 0.25 gm Pantoprazole Sodium (Protonix Susp) 40 mg PO 0600 [facility] Last Admin: 10/16/18 06:46 Dose: 40 mg Rosuvastatin Calcium (Crestor) 10 mg PO HS [facility] Last Admin: 10/15/18 22:01 Dose: 10 mg - Labs Labs: 10/16/18 06:32 10/16/18 06:32 PT 13.9 SECONDS (9.7-12.2) H 10/06/18 21:04 INR 1.3 10/06/18 21:04 APTT 45 SECONDS (21-34) H D 10/06/18 21:04 - Constitutional Appears: No Acute Distress, Chronically Ill (intubated sedated) - Head Exam Head Exam: NORMAL INSPECTION, NORMOCEPHALIC - Eye Exam Eye Exam: Normal appearance, PERRL - ENT Exam ENT Exam: Normal Exam (et tube) - Neck Exam Neck Exam: Normal Inspection - Respiratory Exam Respiratory Exam: NORMAL BREATHING PATTERN (b/l air entry) - Cardiovascular Exam Cardiovascular Exam: REGULAR RHYTHM, RRR - GI/Abdominal Exam GI & Abdominal Exam: Distended, Soft, Normal Bowel Sounds - Extremities Exam Extremities Exam: Normal Inspection - Neurological Exam Neurological Exam: absent: Alert, Awake - Skin Skin Exam: Normal Color, Warm Assessment and Plan (1) ESRD (end stage renal disease) Status: Acute (2) CAD (coronary artery disease) Status: Acute (3) CHF (congestive heart failure) Status: Acute (4) Hypertension Status: Acute - Assessment and Plan (Free Text) Assessment: maintain hd mwf bp stable hgb at goal leukocytosis noted, recommend blood cultures. recent permcath placement.
[2018-10-16] MEDS: Ferric Sodium Gluconat Complex 125 MG in Sodium Chloride 0.9% 100 ML IVPB SCH (11:45)
--- NOTE | 2018-10-16 13:23 | CP.PCM.CON ---
History of Present Illness - History of Present Illness History of Present Illness: dictated Past Patient History - Infectious Disease Hx of Infectious Diseases: None - Past Medical History & Family History Past Medical History?: Yes - Past Social History Smoking Status: Never Smoked - CARDIAC Hx Pacemaker: No - PULMONARY Hx Respiratory Disorders: No - NEUROLOGICAL Hx Neurological Disorder: No Hx Dizziness: Yes - HEENT Hx HEENT Problems: Yes Other/Comment: left eye drooping-blurry due to DM - RENAL Hx Chronic Kidney Disease: Yes - ENDOCRINE/METABOLIC Hx Diabetes Mellitus Type 2: Yes - HEMATOLOGICAL/ONCOLOGICAL Hx Cancer: No - INTEGUMENTARY Hx Dermatological Problems: No - MUSCULOSKELETAL/RHEUMATOLOGICAL Hx Falls: Yes - GASTROINTESTINAL Hx Gastrointestinal Disorders: No - GENITOURINARY/GYNECOLOGICAL Hx Genitourinary Disorders: No - PSYCHIATRIC Hx Substance Use: No - SURGICAL HISTORY Hx Mastectomy: No - ANESTHESIA Hx Anesthesia: Yes Hx Anesthesia Reactions: No Hx Malignant Hyperthermia: No Meds Allergies/Adverse Reactions: Allergies Allergy/AdvReac Type Severity Reaction Status Date / Time No Known Allergies Allergy Verified 07/21/18 12:21 - Medications Medications: Current Medications Acetaminophen (Tylenol 325mg Tab) 650 mg PO Q6 PRN PRN Reason: pain+fever Last Admin: 10/09/18 09:59 Dose: 650 mg Albuterol/Ipratropium (Duoneb 3 Mg/0.5 Mg (3 Ml) Ud) 3 ml INH RQ6 [facility] Last Admin: 10/16/18 07:57 Dose: 3 ml Aspirin (Aspirin Chewable) 81 mg PO DAILY [facility] Last Admin: 10/16/18 10:11 Dose: 81 mg Epoetin Dedrick (Procrit) 10,000 unit IV MWF [facility] Heparin Sodium (Porcine) (Heparin) 5,000 units SC Q12 [facility] Last Admin: 10/16/18 10:10 Dose: 5,000 units Hydralazine HCl (Apresoline) 50 mg PO Q8 [facility] Last Admin: 10/16/18 11:45 Dose: 50 mg Hydrocortisone (Cortef) 10 mg PO DAILY [facility] Last Admin: 10/16/18 10:11 Dose: 10 mg Dexmedetomidine HCl 200 mcg/ (Sodium Chloride) 50 mls @ 4.38 mls/hr IV TITR PRN; Protocol PRN Reason: Agitation Last Admin: 10/16/18 10:16 Dose: 0.1 mcg/kg/hr, 2.2 mls/hr Ferric Sodium Gluconate Complex 125 mg/ Sodium Chloride 110 mls @ 110 mls/hr IVPB Q24H [facility] Stop: 10/23/18 11:31 Last Admin: 10/16/18 11:45 Dose: 110 mls/hr Vancomycin HCl 1 gm/ Sodium (Chloride) 250 mls @ 166.7 mls/hr IVPB MWF [facility]; Protocol Cefepime HCl 1 gm/ Dextrose 50 mls @ 100 mls/hr IVPB DAILY [facility]; Protocol Insulin Aspart (Novolog) 0 unit SC Q4H [facility]; Protocol Last Admin: 10/16/18 10:12 Dose: 2 units Insulin Detemir (Levemir) 30 unit SC Q12 [facility] Last Admin: 10/15/18 22:02 Dose: 30 u Isosorbide Dinitrate (Isordil) 20 mg PO BID [facility] Last Admin: 10/16/18 10:10 Dose: 20 mg Levetiracetam (Keppra) 750 mg PO BID [facility] Last Admin: 10/16/18 10:10 Dose: 750 mg Levothyroxine Sodium (Synthroid) 50 mcg PO 0600 [facility] Last Admin: 10/16/18 06:46 Dose: 50 mcg Metoprolol Tartrate (Lopressor) 25 mg NG BID [facility] Last Admin: 10/16/18 10:11 Dose: 25 mg Mupirocin (Bactroban 2% Nasal) 0.25 gm HILLARY BID [facility] Last Admin: 10/16/18 10:11 Dose: 0.25 gm Pantoprazole Sodium (Protonix Susp) 40 mg PO 0600 [facility] Last Admin: 10/16/18 06:46 Dose: 40 mg Rosuvastatin Calcium (Crestor) 10 mg PO [facility] Last Admin: 10/15/18 22:01 Dose: 10 mg Results - Vital Signs Recent Vital Signs: Last Vital Signs Temp 98.4 F 10/16/18 08:00 Pulse 69 10/16/18 11:15 Resp 14 10/16/18 11:15 BP 139/114 H 10/16/18 11:15 Pulse Ox 99 10/16/18 11:15 - Labs Result Diagrams: 10/16/18 06:32 10/16/18 06:32 Labs: Laboratory Results - last 24 hr 01/14/19 01/14/19 01/14/19 14:28 18:33 21:42 WBC RBC Hgb Hct MCV MCH MCHC RDW Plt Count MPV Neut % (Auto) Lymph % (Auto) [place] % (Auto) Eos % (Auto) Baso % (Auto) Neut # (Auto) Lymph # (Auto) [place] # (Auto) Eos # (Auto) Baso # (Auto) Puncture Site pCO2 pO2 HCO3 ABG pH ABG Total CO2 ABG O2 Saturation ABG Base Excess ABG Hemoglobin ABG Carboxyhemoglobin POC ABG HHb (Measured) ABG Methemoglobin Jimenez Test A-a O2 Difference Respiratory Index Hgb O2 Saturation Vent Mode FiO2 Pressure Support CPAP Sodium Potassium Chloride Carbon Dioxide Anion Gap BUN Creatinine Est GFR ( Amer) Est GFR (Non-Af Amer) POC Glucose (mg/dL) 165 H 117 H 127 H Random Glucose Calcium Phosphorus Magnesium Total Bilirubin AST ALT Alkaline Phosphatase Total Protein Albumin Globulin Albumin/Globulin Ratio 10/16/18 10/16/18 10/16/18 01:51 05:16 06:06 WBC RBC Hgb Hct MCV MCH MCHC RDW Plt Count MPV Neut % (Auto) Lymph % (Auto) [place] % (Auto) Eos % (Auto) Baso % (Auto) Neut # (Auto) Lymph # (Auto) [place] # (Auto) Eos # (Auto) Baso # (Auto) Puncture Site L rad pCO2 47 H pO2 86 HCO3 27.9 ABG pH 7.40 ABG Total CO2 30.5 H ABG O2 Saturation 99.2 H ABG Base Excess 3.8 H ABG Hemoglobin 8.8 L ABG Carboxyhemoglobin 2.7 H POC ABG HHb (Measured) 0.8 ABG Methemoglobin 0.5 Jimenez Test Pos A-a O2 Difference 105.0 Respiratory Index 1.2 Hgb O2 Saturation 96.0 Vent Mode Cpap FiO2 35.0 Pressure Support 12 CPAP 5 Sodium Potassium Chloride Carbon Dioxide Anion Gap BUN Creatinine Est GFR ( Amer) Est GFR (Non-Af Amer) POC Glucose (mg/dL) 166 H 229 H Random Glucose Calcium Phosphorus Magnesium Total Bilirubin AST ALT Alkaline Phosphatase Total Protein Albumin Globulin Albumin/Globulin Ratio 10/16/18 10/16/18 10/16/18 06:32 06:32 09:32 WBC 18.6 H RBC 3.32 L Hgb 9.3 L Hct 29.4 L MCV 88.6 MCH 28.1 MCHC 31.7 L RDW 15.5 H Plt Count 301 MPV 9.4 Neut % (Auto) 66.5 Lymph % (Auto) 15.1 L [place] % (Auto) 8.1 Eos % (Auto) 9.3 H Baso % (Auto) 1.0 Neut # (Auto) 12.4 H Lymph # (Auto) 2.8 [place] # (Auto) 1.5 H Eos # (Auto) 1.7 H Baso # (Auto) 0.2 Puncture Site pCO2 pO2 HCO3 ABG pH ABG Total CO2 ABG O2 Saturation ABG Base Excess ABG Hemoglobin ABG Carboxyhemoglobin POC ABG HHb (Measured) ABG Methemoglobin Jimenez Test A-a O2 Difference Respiratory Index Hgb O2 Saturation Vent Mode FiO2 Pressure Support CPAP Sodium 133 Potassium 4.6 Chloride 97 L Carbon Dioxide 30 Anion Gap 11 BUN 38 H Creatinine 2.7 H Est GFR ( Amer) 21 Est GFR (Non-Af Amer) 17 POC Glucose (mg/dL) 182 H Random Glucose 220 H D Calcium 7.7 L Phosphorus 3.1 Magnesium 1.9 Total Bilirubin 0.4 AST 42 H ALT 34 Alkaline Phosphatase 149 H D Total Protein 6.1 L Albumin 3.3 L Globulin 2.8 Albumin/Globulin Ratio 1.2
--- NOTE | 2018-10-16 13:49 | CP.PCM.PN ---
<Av Colby - Last Filed: 10/16/18 17:03> Subjective - Date & Time of Evaluation Date of Evaluation: 10/16/18 Time of Evaluation: 13:48 - Subjective Subjective: Cardiology Service: Dr. Wagoner's Service Patient seen and examined at bedside. Per nursing no acute events occurred overnight. ROS unobtainable due to patient's current clinical condition. Patient remains intubated and sedated. Objective - Vital Signs/Intake and Output Vital Signs (last 24 hours): Temp Pulse Resp BP Pulse Ox 98.4 F 69 14 139/114 H 99 10/16/18 08:00 10/16/18 11:15 10/16/18 11:15 10/16/18 11:15 10/16/18 11:15 Intake and Output: 10/16/18 10/16/18 06:59 18:59 Intake Total 897.4 248.8 Balance 897.4 248.8 - Medications Medications: Current Medications Acetaminophen (Tylenol 325mg Tab) 650 mg PO Q6 PRN PRN Reason: pain+fever Last Admin: 10/09/18 09:59 Dose: 650 mg Albuterol/Ipratropium (Duoneb 3 Mg/0.5 Mg (3 Ml) Ud) 3 ml INH RQ6 [facility] Last Admin: 10/16/18 13:29 Dose: 3 ml Aspirin (Aspirin Chewable) 81 mg PO DAILY [facility] Last Admin: 10/16/18 10:11 Dose: 81 mg Epoetin Dedrick (Procrit) 10,000 unit IV MWF [facility] Heparin Sodium (Porcine) (Heparin) 5,000 units SC Q12 [facility] Last Admin: 10/16/18 10:10 Dose: 5,000 units Hydralazine HCl (Apresoline) 50 mg PO Q8 [facility] Last Admin: 10/16/18 11:45 Dose: 50 mg Hydrocortisone (Cortef) 10 mg PO DAILY [facility] Last Admin: 10/16/18 10:11 Dose: 10 mg Dexmedetomidine HCl 200 mcg/ (Sodium Chloride) 50 mls @ 4.38 mls/hr IV TITR PRN; Protocol PRN Reason: Agitation Last Admin: 10/16/18 10:16 Dose: 0.1 mcg/kg/hr, 2.2 mls/hr Ferric Sodium Gluconate Complex 125 mg/ Sodium Chloride 110 mls @ 110 mls/hr IVPB Q24H [facility] Stop: 10/23/18 11:31 Last Admin: 10/16/18 11:45 Dose: 110 mls/hr Vancomycin HCl 1 gm/ Sodium (Chloride) 250 mls @ 166.7 mls/hr IVPB MWF [facility]; Protocol Cefepime HCl 1 gm/ Dextrose 50 mls @ 100 mls/hr IVPB DAILY [facility]; Protocol Insulin Aspart (Novolog) 0 unit SC Q4H [facility]; Protocol Last Admin: 10/16/18 10:12 Dose: 2 units Insulin Detemir (Levemir) 30 unit SC Q12 [facility] Last Admin: 10/15/18 22:02 Dose: 30 u Isosorbide Dinitrate (Isordil) 20 mg PO BID [facility] Last Admin: 10/16/18 10:10 Dose: 20 mg Levetiracetam (Keppra) 750 mg PO BID [facility] Last Admin: 10/16/18 10:10 Dose: 750 mg Levothyroxine Sodium (Synthroid) 50 mcg PO 0600 [facility] Last Admin: 10/16/18 06:46 Dose: 50 mcg Metoprolol Tartrate (Lopressor) 25 mg NG BID [facility] Last Admin: 10/16/18 10:11 Dose: 25 mg Mupirocin (Bactroban 2% Nasal) 0.25 gm [place] BID [facility] Last Admin: 10/16/18 10:11 Dose: 0.25 gm Pantoprazole Sodium (Protonix Susp) 40 mg PO 0600 [facility] Last Admin: 10/16/18 06:46 Dose: 40 mg Rosuvastatin Calcium (Crestor) 10 mg PO HS [facility] Last Admin: 10/15/18 22:01 Dose: 10 mg - Labs Labs: 10/16/18 06:32 10/16/18 06:32 PT 13.9 SECONDS (9.7-12.2) H 10/06/18 21:04 INR 1.3 10/06/18 21:04 APTT 45 SECONDS (21-34) H D 10/06/18 21:04 - Head Exam Head Exam: ATRAUMATIC, NORMAL INSPECTION, NORMOCEPHALIC - Eye Exam Eye Exam: EOMI, Normal appearance Pupil Exam: PERRL. absent: Irregular, Unequal - ENT Exam ENT Exam: Mucous Membranes Moist, Normal Oropharynx - Respiratory Exam Respiratory Exam: Decreased Breath Sounds Additional comments: Intubated - Cardiovascular Exam Cardiovascular Exam: REGULAR RHYTHM, +S1, +S2 - GI/Abdominal Exam GI & Abdominal Exam: Soft, Normal Bowel Sounds. absent: Hyperactive Bowel Sounds - Extremities Exam Extremities Exam: Normal Inspection. absent: Pedal Edema - Back Exam Back Exam: NORMAL INSPECTION. absent: CVA tenderness (R), paraspinal tenderness - Neurological Exam Neurological Exam: Altered - Skin Skin Exam: Dry, Intact Assessment and Plan - Assessment and Plan (Free Text) Assessment: 72 year old female with past medical history of CAD, CHF, HTN, HLD, pituitary adenoma, is being seen s/p respiratory arrest during AV fistula placement surgery. Plan: Respiratory failure - Currently intubated and sedated. Management per primary care team - Completed hypothermic protocol Medications: Precedex .2mcg/kg/hr HTN -Continue Hydralazine 100mg PO Q8H [facility] HLD -Continue Rosuvastatin 10mg PO HS [facility] CAD -Continue Aspirin 81mg PO Daily [facility] -Continue Coreg 12.5mg PO BID [facility] DM -Levemir 30UNIT sc q12 [facility] Hypothyroidism -Continue Synthroid 50mcg PO 0600 [facility] CKD on HD - S/p right permacath placed on 10/11 -Procrit 10,000 unit IV MWF ppx -Protonix -Heparin All management per Dr. Wagoner. Av Colby, PGY-2 <Jimmy Wagoner - Last Filed: 10/17/18 21:42> Objective - Vital Signs/Intake and Output Vital Signs (last 24 hours): Temp Pulse Resp BP Pulse Ox 97.3 F L 61 16 128/53 L 100 10/17/18 20:00 10/17/18 20:17 10/17/18 20:17 10/17/18 20:17 10/17/18 20:17 Intake and Output: 10/17/18 10/18/18 18:59 06:59 Intake Total 252.4 28.4 Output Total 1999 Balance -1747.6 28.4 - Medications Medications: Current Medications Acetaminophen (Tylenol 325mg Tab) 650 mg PO Q6 PRN PRN Reason: pain+fever Last Admin: 10/09/18 09:59 Dose: 650 mg Albuterol/Ipratropium (Duoneb 3 Mg/0.5 Mg (3 Ml) Ud) 3 ml INH RQ6 [facility] Last Admin: 10/17/18 19:47 Dose: 3 ml Aspirin (Aspirin Chewable) 81 mg PO DAILY [facility] Last Admin: 10/17/18 09:17 Dose: 81 mg Epoetin Dedrick (Procrit) 10,000 unit IV MWF [facility] Last Admin: 10/17/18 16:09 Dose: 10,000 unit Heparin Sodium (Porcine) (Heparin) 5,000 units SC Q12 [facility] Last Admin: 10/17/18 09:32 Dose: Not Given Hydralazine HCl (Apresoline) 50 mg PO Q8 [facility] Last Admin: 10/17/18 15:00 Dose: Not Given Hydrocortisone (Cortef) 10 mg PO DAILY [facility] Last Admin: 10/17/18 09:19 Dose: 10 mg Dexmedetomidine HCl 200 mcg/ (Sodium Chloride) 50 mls @ 4.38 mls/hr IV TITR PRN; Protocol PRN Reason: Agitation Last Titration: 10/17/18 19:00 Dose: 0.4 mcg/kg/hr, 8.75 mls/hr Ferric Sodium Gluconate Complex 125 mg/ Sodium Chloride 110 mls @ 110 mls/hr IVPB Q24H [facility] Stop: 10/23/18 11:31 Last Admin: 10/17/18 12:00 Dose: 110 mls/hr Vancomycin HCl 1 gm/ Sodium (Chloride) 250 mls @ 166.7 mls/hr IVPB MWF [facility]; Protocol Last Admin: 10/17/18 08:00 Dose: 166.7 mls/hr Cefepime HCl 1 gm/ Dextrose 50 mls @ 100 mls/hr IVPB DAILY [facility]; Protocol Last Admin: 10/17/18 09:20 Dose: 100 mls/hr Insulin Aspart (Novolog) 0 unit SC Q4H [facility]; Protocol Last Admin: 10/17/18 18:02 Dose: Not Given Insulin Detemir (Levemir) 30 unit SC Q12 [facility] Last Admin: 10/17/18 09:18 Dose: 30 u Isosorbide Dinitrate (Isordil) 20 mg PO BID [facility] Last Admin: 10/17/18 18:01 Dose: 20 mg Levetiracetam (Keppra) 750 mg PO BID [facility] Last Admin: 10/17/18 18:01 Dose: 750 mg Levothyroxine Sodium (Synthroid) 50 mcg PO 0600 [facility] Last Admin: 10/17/18 05:45 Dose: 50 mcg Metoprolol Tartrate (Lopressor) 25 mg NG BID [facility] Last Admin: 10/17/18 18:01 Dose: Not Given Mupirocin (Bactroban 2% Nasal) 0.25 gm [place] BID [facility] Last Admin: 10/17/18 18:01 Dose: 0.25 gm Pantoprazole Sodium (Protonix Susp) 40 mg PO 0600 [facility] Last Admin: 10/17/18 05:45 Dose: 40 mg Rosuvastatin Calcium (Crestor) 10 mg PO [facility] Last Admin: 10/16/18 22:30 Dose: 10 mg - Labs Labs: 10/17/18 05:47 10/17/18 05:47 PT 13.9 SECONDS (9.7-12.2) H 10/06/18 21:04 INR 1.3 10/06/18 21:04 APTT 45 SECONDS (21-34) H D 10/06/18 21:04 Assessment and Plan - Assessment and Plan (Free Text) Assessment: Patient examined and evaluated personally by me. Plan of care d/w the medical claims assistant and as documented
--- NOTE | 2018-10-16 17:38 | CP.CCUPN ---
<Dyllan Patton - Last Filed: 10/16/18 18:10> CCU Subjective - Physician Review Subjective (Free Text): PGY-[address] ICU progress note for Dr Ríos Patient seen and examined at bedside. Patient is awake, opening eyes, but not alert or oriented. Continues to move her arms, mittens in place. On ventilator. Unable to obtain ROS due to patient's mental status. Critical Care Time Spent (in minutes): 45 CCU Objective - Vital Signs / Intake & Output Vital Signs (Last 4 hours): Vital Signs Temp Pulse Resp BP Pulse Ox 10/16/18 16:22 68 14 140/40 L 99 10/16/18 16:00 99.6 F 63 14 99 10/16/18 14:52 65 14 150/47 L 97 10/16/18 14:00 63 14 96 10/16/18 13:51 66 14 99/38 L 97 Intake and Output (Last 8hrs): Intake & Output 10/16/18 10/16/18 10/16/18 06:59 14:59 22:59 Intake Total 557.4 877.4 133.2 Balance 557.4 877.4 133.2 Weight 209 lb 3.499 oz Intake: IV 33.4 64.4 Intake, IV Amount 44.0 183.0 13.2 Right Hand 150 Right arm Midline 44.0 33.0 13.2 Tube Feeding 480 480 120 Other 150 Other: # Voids Urine, Voided 0 0 # Bowel Movements 0 1 - Physical Exam Head: Positive for: Atraumatic, Normocephalic Extroacular Muscles: Positive for: EOMI (dropping eyelid left) Conjunctiva: Positive for: Normal Mouth: Positive for: Dry, Other (intubated ETT in place) Respiratory/Chest: Positive for: Good Air Exchange. Negative for: Respiratory Distress Cardiovascular: Positive for: Regular Rate and Rhythm, Normal S1, S2 Abdomen: Positive for: Normal Bowel Sounds. Negative for: Tenderness, Distention, Rebound, Guarding Upper Extremity: Positive for: Normal Inspection. Negative for: Cyanosis Lower Extremity: Positive for: Normal Inspection Neurological: Positive for: Other (unable to assess due to patient condition). Negative for: GCS=15 Skin: Positive for: Warm, Dry, Normal Color, Other (permacath in place, right femoral TLC) Psychiatric: Negative for: Alert, Oriented x 3 - Medications Active Medications: Active Medications Generic Name Dose Route Start Last Admin Trade Name Freq PRN Reason Stop Dose Admin Acetaminophen 650 mg 10/08/18 10:08 10/09/18 09:59 Tylenol 325mg Tab PO 650 mg Q6 PRN Administration pain+fever Albuterol/Ipratropium 3 ml 10/12/18 14:00 10/16/18 13:29 Duoneb 3 Mg/0.5 Mg (3 Ml) Ud INH 3 ml RQ6 JOCELYN Administration Aspirin 81 mg 10/08/18 10:00 10/16/18 10:11 Aspirin Chewable PO 81 mg DAILY JOCELYN Administration Epoetin Dedrick 10,000 unit 10/17/18 09:00 Procrit IV [facility] [place] Heparin Sodium (Porcine) 5,000 units 10/15/18 10:00 10/16/18 10:10 Heparin SC 5,000 units Q12 JOCELYN Administration Hydralazine HCl 50 mg 10/16/18 10:45 10/16/18 11:45 Apresoline PO 50 mg Q8 JOCELYN Administration Hydrocortisone 10 mg 10/15/18 10:00 10/16/18 10:11 Cortef PO 10 mg DAILY [facility] Administration Dexmedetomidine HCl 200 mcg/ 50 mls @ 4.38 mls/hr 10/12/18 09:02 10/16/18 12:00 Sodium Chloride IV 0.3 mcg/kg/hr TITR PRN 6.57 mls/hr Agitation Titration Protocol 0.2 MCG/KG/HR Ferric Sodium Gluconate 110 mls @ 110 mls/hr 10/15/18 11:30 10/16/18 11:45 Complex 125 mg/ Sodium IVPB 10/23/18 11:31 110 mls/hr Chloride Q24H JOCELYN Administration Vancomycin HCl 1 gm/ Sodium 250 mls @ 166.7 mls/hr 10/17/18 09:00 Chloride IVPB [facility] [place] Protocol Cefepime HCl 1 gm/ Dextrose 50 mls @ 100 mls/hr 10/16/18 14:00 10/16/18 14:38 IVPB 100 mls/hr DAILY JOCELYN Administration Protocol Insulin Aspart 0 unit 10/14/18 22:00 10/16/18 14:38 Novolog SC 3 units Q4H [facility] Administration Protocol Insulin Detemir 30 unit 10/14/18 10:00 10/15/18 22:02 Levemir SC 30 u Q12 JOCELYN Administration Isosorbide Dinitrate 20 mg 10/13/18 10:00 10/16/18 10:10 Isordil PO 20 mg BID JOCELYN Administration Levetiracetam 750 mg 10/08/18 10:00 10/16/18 10:10 Keppra PO 750 mg BID JOCELYN Administration Levothyroxine Sodium 50 mcg 09/29/18 08:00 10/16/18 06:46 Synthroid PO 50 mcg 0600 JOCELYN Administration Metoprolol Tartrate 25 mg 10/15/18 22:00 10/16/18 10:11 Lopressor NG 25 mg BID JOCELYN Administration Mupirocin 0.25 gm 10/16/18 10:00 10/16/18 10:11 Bactroban 2% Nasal HILLARY 0.25 gm BID JOCELYN Administration Pantoprazole Sodium 40 mg 10/09/18 06:00 10/16/18 06:46 Protonix Susp PO 40 mg 0600 JOCELYN Administration Rosuvastatin Calcium 10 mg 09/30/18 22:00 10/15/18 22:01 Crestor PO 10 mg HS JOCELYN Administration - Patient Studies Lab Studies: Lab Studies 10/16/18 10/16/18 10/16/18 Range/Units 14:01 09:32 06:32 WBC (4.8-10.8) K/uL RBC (3.80-5.20) Mil/uL Hgb (11.0-16.0) g/dL Hct (34.0-47.0) % MCV (81.0-99.0) fL MCH (27.0-31.0) pg MCHC (33.0-37.0) g/dL RDW (11.5-14.5) % Plt Count (130-400) K/uL MPV (7.2-11.7) fL Neut % (Auto) (50.0-75.0) % Lymph % (Auto) (20.0-40.0) % [place] % (Auto) (0.0-10.0) % Eos % (Auto) (0.0-4.0) % Baso % (Auto) (0.0-2.0) % Neut # (Auto) (1.8-7.0) K/uL Lymph # (Auto) (1.0-4.3) K/uL [place] # (Auto) (0.0-0.8) K/uL Eos # (Auto) (0.0-0.7) K/uL Baso # (Auto) (0.0-0.2) K/uL Puncture Site pCO2 (35-45) mm/Hg pO2 (80-100) mm/Hg HCO3 (21-28) mmol/L ABG pH (7.35-7.45) ABG Total CO2 (22-28) mmol/L ABG O2 Saturation (95-98) % ABG Base Excess (-2.0-3.0) mmol/L ABG Hemoglobin (11.7-17.4) g/dL ABG Carboxyhemoglobin (0.5-1.5) % POC ABG HHb (Measured) (0.0-5.0) % ABG Methemoglobin (0.0-3.0) % Jimenez Test A-a O2 Difference mm/Hg Respiratory Index Hgb O2 Saturation (95.0-98.0) % Vent Mode FiO2 % Pressure Support CPAP Sodium 133 (132-148) mmol/L Potassium 4.6 (3.6-5.2) mmol/L Chloride 97 L (98-107) mmol/L Carbon Dioxide 30 (22-30) mmol/L Anion Gap 11 (10-20) BUN 38 H (7-17) mg/dL Creatinine 2.7 H (0.7-1.2) mg/dL Est GFR ( Amer) 21 Est GFR (Non-Af Amer) 17 POC Glucose (mg/dL) 211 H 182 H (65-110) mg/dL Random Glucose 220 H D (65-105) mg/dL Calcium 7.7 L (8.6-10.4) mg/dl Phosphorus 3.1 (2.5-4.5) mg/dL Magnesium 1.9 (1.6-2.3) mg/dL Total Bilirubin 0.4 (0.2-1.3) mg/dL AST 42 H (14-36) U/L ALT 34 (9-52) U/L Alkaline Phosphatase 149 H D (38-126) U/L Total Protein 6.1 L (6.3-8.3) g/dL Albumin 3.3 L (3.5-5.0) g/dL Globulin 2.8 (2.2-3.9) gm/dL Albumin/Globulin Ratio 1.2 (1.0-2.1) 10/16/18 10/16/18 10/16/18 Range/Units 06:32 06:06 05:16 WBC 18.6 H (4.8-10.8) K/uL RBC 3.32 L (3.80-5.20) Mil/uL Hgb 9.3 L (11.0-16.0) g/dL Hct 29.4 L (34.0-47.0) % MCV 88.6 (81.0-99.0) fL MCH 28.1 (27.0-31.0) pg MCHC 31.7 L (33.0-37.0) g/dL RDW 15.5 H (11.5-14.5) % Plt Count 301 (130-400) K/uL MPV 9.4 (7.2-11.7) fL Neut % (Auto) 66.5 (50.0-75.0) % Lymph % (Auto) 15.1 L (20.0-40.0) % [place] % (Auto) 8.1 (0.0-10.0) % Eos % (Auto) 9.3 H (0.0-4.0) % Baso % (Auto) 1.0 (0.0-2.0) % Neut # (Auto) 12.4 H (1.8-7.0) K/uL Lymph # (Auto) 2.8 (1.0-4.3) K/uL [place] # (Auto) 1.5 H (0.0-0.8) K/uL Eos # (Auto) 1.7 H (0.0-0.7) K/uL Baso # (Auto) 0.2 (0.0-0.2) K/uL Puncture Site L rad pCO2 47 H (35-45) mm/Hg pO2 86 (80-100) mm/Hg HCO3 27.9 (21-28) mmol/L ABG pH 7.40 (7.35-7.45) ABG Total CO2 30.5 H (22-28) mmol/L ABG O2 Saturation 99.2 H (95-98) % ABG Base Excess 3.8 H (-2.0-3.0) mmol/L ABG Hemoglobin 8.8 L (11.7-17.4) g/dL ABG Carboxyhemoglobin 2.7 H (0.5-1.5) % POC ABG HHb (Measured) 0.8 (0.0-5.0) % ABG Methemoglobin 0.5 (0.0-3.0) % Jimenez Test Pos A-a O2 Difference 105.0 mm/Hg Respiratory Index 1.2 Hgb O2 Saturation 96.0 (95.0-98.0) % Vent Mode Cpap FiO2 35.0 % Pressure Support 12 CPAP 5 Sodium (132-148) mmol/L Potassium (3.6-5.2) mmol/L Chloride (98-107) mmol/L Carbon Dioxide (22-30) mmol/L Anion Gap (10-20) BUN (7-17) mg/dL Creatinine (0.7-1.2) mg/dL Est GFR ( Amer) Est GFR (Non-Af Amer) POC Glucose (mg/dL) 229 H (65-110) mg/dL Random Glucose (65-105) mg/dL Calcium (8.6-10.4) mg/dl Phosphorus (2.5-4.5) mg/dL Magnesium (1.6-2.3) mg/dL Total Bilirubin (0.2-1.3) mg/dL AST (14-36) U/L ALT (9-52) U/L Alkaline Phosphatase (38-126) U/L Total Protein (6.3-8.3) g/dL Albumin (3.5-5.0) g/dL Globulin (2.2-3.9) gm/dL Albumin/Globulin Ratio (1.0-2.1) 10/16/18 10/15/18 10/15/18 Range/Units 01:51 21:42 18:33 WBC (4.8-10.8) K/uL RBC (3.80-5.20) Mil/uL Hgb (11.0-16.0) g/dL Hct (34.0-47.0) % MCV (81.0-99.0) fL MCH (27.0-31.0) pg MCHC (33.0-37.0) g/dL RDW (11.5-14.5) % Plt Count (130-400) K/uL MPV (7.2-11.7) fL Neut % (Auto) (50.0-75.0) % Lymph % (Auto) (20.0-40.0) % [place] % (Auto) (0.0-10.0) % Eos % (Auto) (0.0-4.0) % Baso % (Auto) (0.0-2.0) % Neut # (Auto) (1.8-7.0) K/uL Lymph # (Auto) (1.0-4.3) K/uL [place] # (Auto) (0.0-0.8) K/uL Eos # (Auto) (0.0-0.7) K/uL Baso # (Auto) (0.0-0.2) K/uL Puncture Site pCO2 (35-45) mm/Hg pO2 (80-100) mm/Hg HCO3 (21-28) mmol/L ABG pH (7.35-7.45) ABG Total CO2 (22-28) mmol/L ABG O2 Saturation (95-98) % ABG Base Excess (-2.0-3.0) mmol/L ABG Hemoglobin (11.7-17.4) g/dL ABG Carboxyhemoglobin (0.5-1.5) % POC ABG HHb (Measured) (0.0-5.0) % ABG Methemoglobin (0.0-3.0) % Jimenez Test A-a O2 Difference mm/Hg Respiratory Index Hgb O2 Saturation (95.0-98.0) % Vent Mode FiO2 % Pressure Support CPAP Sodium (132-148) mmol/L Potassium (3.6-5.2) mmol/L Chloride (98-107) mmol/L Carbon Dioxide (22-30) mmol/L Anion Gap (10-20) BUN (7-17) mg/dL Creatinine (0.7-1.2) mg/dL Est GFR ( Amer) Est GFR (Non-Af Amer) POC Glucose (mg/dL) 166 H 127 H 117 H (65-110) mg/dL Random Glucose (65-105) mg/dL Calcium (8.6-10.4) mg/dl Phosphorus (2.5-4.5) mg/dL Magnesium (1.6-2.3) mg/dL Total Bilirubin (0.2-1.3) mg/dL AST (14-36) U/L ALT (9-52) U/L Alkaline Phosphatase (38-126) U/L Total Protein (6.3-8.3) g/dL Albumin (3.5-5.0) g/dL Globulin (2.2-3.9) gm/dL Albumin/Globulin Ratio (1.0-2.1) Laboratory Results - last 24 hr 10/15/18 10/15/18 10/16/18 18:33 21:42 01:51 WBC RBC Hgb Hct MCV MCH MCHC RDW Plt Count MPV Neut % (Auto) Lymph % (Auto) [place] % (Auto) Eos % (Auto) Baso % (Auto) Neut # (Auto) Lymph # (Auto) [place] # (Auto) Eos # (Auto) Baso # (Auto) Puncture Site pCO2 pO2 HCO3 ABG pH ABG Total CO2 ABG O2 Saturation ABG Base Excess ABG Hemoglobin ABG Carboxyhemoglobin POC ABG HHb (Measured) ABG Methemoglobin Jimenez Test A-a O2 Difference Respiratory Index Hgb O2 Saturation Vent Mode FiO2 Pressure Support CPAP Sodium Potassium Chloride Carbon Dioxide Anion Gap BUN Creatinine Est GFR ( Amer) Est GFR (Non-Af Amer) POC Glucose (mg/dL) 117 H 127 H 166 H Random Glucose Calcium Phosphorus Magnesium Total Bilirubin AST ALT Alkaline Phosphatase Total Protein Albumin Globulin Albumin/Globulin Ratio 10/16/18 10/16/18 10/16/18 05:16 06:06 06:32 WBC 18.6 H RBC 3.32 L Hgb 9.3 L Hct 29.4 L MCV 88.6 MCH 28.1 MCHC 31.7 L RDW 15.5 H Plt Count 301 MPV 9.4 Neut % (Auto) 66.5 Lymph % (Auto) 15.1 L [place] % (Auto) 8.1 Eos % (Auto) 9.3 H Baso % (Auto) 1.0 Neut # (Auto) 12.4 H Lymph # (Auto) 2.8 [place] # (Auto) 1.5 H Eos # (Auto) 1.7 H Baso # (Auto) 0.2 Puncture Site L rad pCO2 47 H pO2 86 HCO3 27.9 ABG pH 7.40 ABG Total CO2 30.5 H ABG O2 Saturation 99.2 H ABG Base Excess 3.8 H ABG Hemoglobin 8.8 L ABG Carboxyhemoglobin 2.7 H POC ABG HHb (Measured) 0.8 ABG Methemoglobin 0.5 Jimneez Test Pos A-a O2 Difference 105.0 Respiratory Index 1.2 Hgb O2 Saturation 96.0 Vent Mode Cpap FiO2 35.0 Pressure Support 12 CPAP 5 Sodium Potassium Chloride Carbon Dioxide Anion Gap BUN Creatinine Est GFR ( Amer) Est GFR (Non-Af Amer) POC Glucose (mg/dL) 229 H Random Glucose Calcium Phosphorus Magnesium Total Bilirubin AST ALT Alkaline Phosphatase Total Protein Albumin Globulin Albumin/Globulin Ratio 10/16/18 10/16/18 10/16/18 06:32 09:32 14:01 WBC RBC Hgb Hct MCV MCH MCHC RDW Plt Count MPV Neut % (Auto) Lymph % (Auto) [place] % (Auto) Eos % (Auto) Baso % (Auto) Neut # (Auto) Lymph # (Auto) [place] # (Auto) Eos # (Auto) Baso # (Auto) Puncture Site pCO2 pO2 HCO3 ABG pH ABG Total CO2 ABG O2 Saturation ABG Base Excess ABG Hemoglobin ABG Carboxyhemoglobin POC ABG HHb (Measured) ABG Methemoglobin Jimenez Test A-a O2 Difference Respiratory Index Hgb O2 Saturation Vent Mode FiO2 Pressure Support CPAP Sodium 133 Potassium 4.6 Chloride 97 L Carbon Dioxide 30 Anion Gap 11 BUN 38 H Creatinine 2.7 H Est GFR ( Amer) 21 Est GFR (Non-Af Amer) 17 POC Glucose (mg/dL) 182 H 211 H Random Glucose 220 H D Calcium 7.7 L Phosphorus 3.1 Magnesium 1.9 Total Bilirubin 0.4 AST 42 H ALT 34 Alkaline Phosphatase 149 H D Total Protein 6.1 L Albumin 3.3 L Globulin 2.8 Albumin/Globulin Ratio 1.2 Radiology Impressions: Radiology Impressions Chest X-Ray 10/16/18 07:00 IMPRESSION: Stable cardiomegaly. No definite interval pulmonary vascular congestion, infiltrate or pleural effusion bilaterally. Tubes and catheters stable as discussed above. Fingerstick Blood Sugar Results: 211 Critical Care Progress Note - Ventilator Checklist Daily Assessment of Readiness to Wean: Yes Daily Spontaneous Breathing Trial: Yes PUD Prophalyxis: Yes DVT Prophylaxis: Yes Oral Care with Chlorhexidine Gluconate {CHG}: Yes - Vent Settings MODE:: PRVC TIDAL VOLUME:: 450 RESP RATE:: 14 FIO2:: 40 PEEP:: 5 - Extremities/Vascular Does the Patient have a Central Venous Catheter?: Yes Does the Patient need a Central Venous Catheter?: Yes Does the Patient have a Rodriguez Catheter?: Yes Does the Patient need a Rodriguez Catheter?: Yes - Prophylaxis GI Prophylaxis GI: PPI - Prophylaxis DVT Prophylaxis DVT: Heparin SQ Assessment/Plan - Assessment and Plan (Free Text) Plan: Patient is a 72 yo female w/ PMH of CKD5, CHF, CAD s/p stents, pituiatry adenoma s/p resection, DM2 admitted for respiratory and cardiac arrest s/p permacath placement and AVF on 10-05. s/p permacath on 10-11-18; possible AMS due to anoxic brain injury, now on HD MWF planning for extubation Neuro Intubated and Sedated Zechariah CV Hydralazine 50mg PO Q8H Metoprolol 25mg NG BID Isordil 30 mg PO BID Crestor Aspirin s/p cardiac arrest; code freeze completed Dr Yost consult Chest Xray portable repeated - f/u results Pulm Intubated; Vent settings as per ICU weaning process - CPAP trial - plan for extubation - f/u Duoneb q6 hydrocortisone GI Tube feedings glucerna 1.5, 20 cc/hr, increase by 5 cc/hr, goal rate 60 cc/hr Protonix Heme EPO w/ Diaylsis Ferric sodium drip Renal ESRD- changed to MWF sessions - today one session EPO MWF Bumex 2mg 1 x permacath placed on 10-11 Dr Segundo Endo Levemir - held for attempt to extubated, placed back patient restless Insulin regular Levothyroxine Hydrocortisone Q6 accuchecks ID +cx on [id number] 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 asp elevated temp today Cefepime Vanc with dialysis (MWF) Mupirocin 2% nasal Dr Barrios on case F/U blood culture DVT ppx: Heparin GI ppx: Protonix Plan discussed with Dr Michoacano Patton, PGY-1 - Date & Time Date: 10/16/18 Time: 13:00 <Eliseo Ríos S - Last Filed: 10/16/18 18:36> CCU Objective - Vital Signs / Intake & Output Vital Signs (Last 4 hours): Vital Signs Temp Pulse Resp BP Pulse Ox 10/16/18 17:57 107/45 L 10/16/18 17:51 62 14 107/45 L 95 10/16/18 16:52 71 14 99/75 L 99 10/16/18 16:22 68 14 140/40 L 99 10/16/18 16:00 99.6 F 63 14 99 10/16/18 14:52 65 14 150/47 L 97 Intake and Output (Last 8hrs): Intake & Output 10/16/18 10/16/18 10/16/18 06:59 14:59 22:59 Intake Total 557.4 877.4 366.4 Balance 557.4 877.4 366.4 Weight 209 lb 3.499 oz Intake: IV 33.4 64.4 Intake, IV Amount 44.0 183.0 26.4 Right Hand 150 Right arm Midline 44.0 33.0 26.4 Tube Feeding 480 480 240 Other 150 100 Other: # Voids Urine, Voided 0 0 # Bowel Movements 0 1 1 - Medications Active Medications: Active Medications Generic Name Dose Route Start Last Admin Trade Name Freq PRN Reason Stop Dose Admin Acetaminophen 650 mg 10/08/18 10:08 10/09/18 09:59 Tylenol 325mg Tab PO 650 mg Q6 PRN Administration pain+fever Albuterol/Ipratropium 3 ml 10/12/18 14:00 10/16/18 13:29 Duoneb 3 Mg/0.5 Mg (3 Ml) Ud INH 3 ml RQ6 JOCELYN Administration Aspirin 81 mg 10/08/18 10:00 10/16/18 10:11 Aspirin Chewable PO 81 mg DAILY JOCELYN Administration Epoetin Dedrick 10,000 unit 10/17/18 09:00 Procrit IV MWF [facility] Heparin Sodium (Porcine) 5,000 units 10/15/18 10:00 10/16/18 10:10 Heparin SC 5,000 units Q12 JOCELYN Administration Hydralazine HCl 50 mg 10/16/18 10:45 10/16/18 11:45 Apresoline PO 50 mg Q8 JOCELYN Administration Hydrocortisone 10 mg 10/15/18 10:00 10/16/18 10:11 Cortef PO 10 mg DAILY JOCELYN Administration Dexmedetomidine HCl 200 mcg/ 50 mls @ 4.38 mls/hr 10/12/18 09:02 10/16/18 12:00 Sodium Chloride IV 0.3 mcg/kg/hr TITR PRN 6.57 mls/hr Agitation Titration Protocol 0.2 MCG/KG/HR Ferric Sodium Gluconate 110 mls @ 110 mls/hr 10/15/18 11:30 10/16/18 11:45 Complex 125 mg/ Sodium IVPB 10/23/18 11:31 110 mls/hr Chloride Q24H JOCELYN Administration Vancomycin HCl 1 gm/ Sodium 250 mls @ 166.7 mls/hr 10/17/18 09:00 Chloride IVPB [facility] [place] Protocol Cefepime HCl 1 gm/ Dextrose 50 mls @ 100 mls/hr 10/16/18 14:00 10/16/18 14:38 IVPB 100 mls/hr DAILY JOCELYN Administration Protocol Insulin Aspart 0 unit 10/14/18 22:00 10/16/18 17:58 Novolog SC 4 units Q4H JOCELYN Administration Protocol Insulin Detemir 30 unit 10/14/18 10:00 10/15/18 22:02 Levemir SC 30 u Q12 JOCELYN Administration Isosorbide Dinitrate 20 mg 10/13/18 10:00 10/16/18 17:57 Isordil PO 20 mg BID JOCELYN Administration Levetiracetam 750 mg 10/08/18 10:00 10/16/18 17:56 Keppra PO 750 mg BID JOCELYN Administration Levothyroxine Sodium 50 mcg 09/29/18 08:00 10/16/18 06:46 Synthroid PO 50 mcg 0600 JOCELYN Administration Metoprolol Tartrate 25 mg 10/15/18 22:00 10/16/18 17:57 Lopressor NG 25 mg BID JOCELYN Administration Mupirocin 0.25 gm 10/16/18 10:00 10/16/18 18:31 Bactroban 2% Nasal [place]ARY 0.25 gm BID JOCELYN Administration Pantoprazole Sodium 40 mg 10/09/18 06:00 10/16/18 06:46 Protonix Susp PO 40 mg 0600 JOCELYN Administration Rosuvastatin Calcium 10 mg 09/30/18 22:00 10/15/18 22:01 Crestor PO 10 mg HS JOCELYN Administration - Patient Studies Lab Studies: Lab Studies 10/16/18 10/16/18 10/16/18 Range/Units 17:40 14:01 09:32 WBC (4.8-10.8) K/uL RBC (3.80-5.20) Mil/uL Hgb (11.0-16.0) g/dL Hct (34.0-47.0) % MCV (81.0-99.0) fL MCH (27.0-31.0) pg MCHC (33.0-37.0) g/dL RDW (11.5-14.5) % Plt Count (130-400) K/uL MPV (7.2-11.7) fL Neut % (Auto) (50.0-75.0) % Lymph % (Auto) (20.0-40.0) % [place] % (Auto) (0.0-10.0) % Eos % (Auto) (0.0-4.0) % Baso % (Auto) (0.0-2.0) % Neut # (Auto) (1.8-7.0) K/uL Lymph # (Auto) (1.0-4.3) K/uL [place] # (Auto) (0.0-0.8) K/uL Eos # (Auto) (0.0-0.7) K/uL Baso # (Auto) (0.0-0.2) K/uL Puncture Site pCO2 (35-45) mm/Hg pO2 (80-100) mm/Hg HCO3 (21-28) mmol/L ABG pH (7.35-7.45) ABG Total CO2 (22-28) mmol/L ABG O2 Saturation (95-98) % ABG Base Excess (-2.0-3.0) mmol/L ABG Hemoglobin (11.7-17.4) g/dL ABG Carboxyhemoglobin (0.5-1.5) % POC ABG HHb (Measured) (0.0-5.0) % ABG Methemoglobin (0.0-3.0) % Jimenez Test A-a O2 Difference mm/Hg Respiratory Index Hgb O2 Saturation (95.0-98.0) % Vent Mode FiO2 % Pressure Support CPAP Sodium (132-148) mmol/L Potassium (3.6-5.2) mmol/L Chloride (98-107) mmol/L Carbon Dioxide (22-30) mmol/L Anion Gap (10-20) BUN (7-17) mg/dL Creatinine (0.7-1.2) mg/dL Est GFR ( Amer) Est GFR (Non-Af Amer) POC Glucose (mg/dL) 280 H 211 H 182 H (65-110) mg/dL Random Glucose (65-105) mg/dL Calcium (8.6-10.4) mg/dl Phosphorus (2.5-4.5) mg/dL Magnesium (1.6-2.3) mg/dL Total Bilirubin (0.2-1.3) mg/dL AST (14-36) U/L ALT (9-52) U/L Alkaline Phosphatase (38-126) U/L Total Protein (6.3-8.3) g/dL Albumin (3.5-5.0) g/dL Globulin (2.2-3.9) gm/dL Albumin/Globulin Ratio (1.0-2.1) 10/16/18 10/16/18 10/16/18 Range/Units 06:32 06:32 06:06 WBC 18.6 H (4.8-10.8) K/uL RBC 3.32 L (3.80-5.20) Mil/uL Hgb 9.3 L (11.0-16.0) g/dL Hct 29.4 L (34.0-47.0) % MCV 88.6 (81.0-99.0) fL MCH 28.1 (27.0-31.0) pg MCHC 31.7 L (33.0-37.0) g/dL RDW 15.5 H (11.5-14.5) % Plt Count 301 (130-400) K/uL MPV 9.4 (7.2-11.7) fL Neut % (Auto) 66.5 (50.0-75.0) % Lymph % (Auto) 15.1 L (20.0-40.0) % [place] % (Auto) 8.1 (0.0-10.0) % Eos % (Auto) 9.3 H (0.0-4.0) % Baso % (Auto) 1.0 (0.0-2.0) % Neut # (Auto) 12.4 H (1.8-7.0) K/uL Lymph # (Auto) 2.8 (1.0-4.3) K/uL [place] # (Auto) 1.5 H (0.0-0.8) K/uL Eos # (Auto) 1.7 H (0.0-0.7) K/uL Baso # (Auto) 0.2 (0.0-0.2) K/uL Puncture Site pCO2 (35-45) mm/Hg pO2 (80-100) mm/Hg HCO3 (21-28) mmol/L ABG pH (7.35-7.45) ABG Total CO2 (22-28) mmol/L ABG O2 Saturation (95-98) % ABG Base Excess (-2.0-3.0) mmol/L ABG Hemoglobin (11.7-17.4) g/dL ABG Carboxyhemoglobin (0.5-1.5) % POC ABG HHb (Measured) (0.0-5.0) % ABG Methemoglobin (0.0-3.0) % [place] Test A-a O2 Difference mm/Hg Respiratory Index Hgb O2 Saturation (95.0-98.0) % Vent Mode FiO2 % Pressure Support CPAP Sodium 133 (132-148) mmol/L Potassium 4.6 (3.6-5.2) mmol/L Chloride 97 L (98-107) mmol/L Carbon Dioxide 30 (22-30) mmol/L Anion Gap 11 (10-20) BUN 38 H (7-17) mg/dL Creatinine 2.7 H (0.7-1.2) mg/dL Est GFR ( Amer) 21 Est GFR (Non-Af Amer) 17 POC Glucose (mg/dL) 229 H (65-110) mg/dL Random Glucose 220 H D (65-105) mg/dL Calcium 7.7 L (8.6-10.4) mg/dl Phosphorus 3.1 (2.5-4.5) mg/dL Magnesium 1.9 (1.6-2.3) mg/dL Total Bilirubin 0.4 (0.2-1.3) mg/dL AST 42 H (14-36) U/L ALT 34 (9-52) U/L Alkaline Phosphatase 149 H D (38-126) U/L Total Protein 6.1 L (6.3-8.3) g/dL Albumin 3.3 L (3.5-5.0) g/dL Globulin 2.8 (2.2-3.9) gm/dL Albumin/Globulin Ratio 1.2 (1.0-2.1) 10/16/18 10/16/18 10/15/18 Range/Units 05:16 01:51 21:42 WBC (4.8-10.8) K/uL RBC (3.80-5.20) Mil/uL Hgb (11.0-16.0) g/dL Hct (34.0-47.0) % MCV (81.0-99.0) fL MCH (27.0-31.0) pg MCHC (33.0-37.0) g/dL RDW (11.5-14.5) % Plt Count (130-400) K/uL MPV (7.2-11.7) fL Neut % (Auto) (50.0-75.0) % Lymph % (Auto) (20.0-40.0) % [place] % (Auto) (0.0-10.0) % Eos % (Auto) (0.0-4.0) % Baso % (Auto) (0.0-2.0) % Neut # (Auto) (1.8-7.0) K/uL Lymph # (Auto) (1.0-4.3) K/uL [place] # (Auto) (0.0-0.8) K/uL Eos # (Auto) (0.0-0.7) K/uL Baso # (Auto) (0.0-0.2) K/uL Puncture Site L rad pCO2 47 H (35-45) mm/Hg pO2 86 (80-100) mm/Hg HCO3 27.9 (21-28) mmol/L ABG pH 7.40 (7.35-7.45) ABG Total CO2 30.5 H (22-28) mmol/L ABG O2 Saturation 99.2 H (95-98) % ABG Base Excess 3.8 H (-2.0-3.0) mmol/L ABG Hemoglobin 8.8 L (11.7-17.4) g/dL ABG Carboxyhemoglobin 2.7 H (0.5-1.5) % POC ABG HHb (Measured) 0.8 (0.0-5.0) % ABG Methemoglobin 0.5 (0.0-3.0) % [place] Test Pos A-a O2 Difference 105.0 mm/Hg Respiratory Index 1.2 Hgb O2 Saturation 96.0 (95.0-98.0) % Vent Mode Cpap FiO2 35.0 % Pressure Support 12 CPAP 5 Sodium (132-148) mmol/L Potassium (3.6-5.2) mmol/L Chloride (98-107) mmol/L Carbon Dioxide (22-30) mmol/L Anion Gap (10-20) BUN (7-17) mg/dL Creatinine (0.7-1.2) mg/dL Est GFR ( Amer) Est GFR (Non-Af Amer) POC Glucose (mg/dL) 166 H 127 H (65-110) mg/dL Random Glucose (65-105) mg/dL Calcium (8.6-10.4) mg/dl Phosphorus (2.5-4.5) mg/dL Magnesium (1.6-2.3) mg/dL Total Bilirubin (0.2-1.3) mg/dL AST (14-36) U/L ALT (9-52) U/L Alkaline Phosphatase (38-126) U/L Total Protein (6.3-8.3) g/dL Albumin (3.5-5.0) g/dL Globulin (2.2-3.9) gm/dL Albumin/Globulin Ratio (1.0-2.1) 10/15/18 Range/Units 18:33 WBC (4.8-10.8) K/uL RBC (3.80-5.20) Mil/uL Hgb (11.0-16.0) g/dL Hct (34.0-47.0) % MCV (81.0-99.0) fL MCH (27.0-31.0) pg MCHC (33.0-37.0) g/dL RDW (11.5-14.5) % Plt Count (130-400) K/uL MPV (7.2-11.7) fL Neut % (Auto) (50.0-75.0) % Lymph % (Auto) (20.0-40.0) % [place] % (Auto) (0.0-10.0) % Eos % (Auto) (0.0-4.0) % Baso % (Auto) (0.0-2.0) % Neut # (Auto) (1.8-7.0) K/uL Lymph # (Auto) (1.0-4.3) K/uL [place] # (Auto) (0.0-0.8) K/uL Eos # (Auto) (0.0-0.7) K/uL Baso # (Auto) (0.0-0.2) K/uL Puncture Site pCO2 (35-45) mm/Hg pO2 (80-100) mm/Hg HCO3 (21-28) mmol/L ABG pH (7.35-7.45) ABG Total CO2 (22-28) mmol/L ABG O2 Saturation (95-98) % ABG Base Excess (-2.0-3.0) mmol/L ABG Hemoglobin (11.7-17.4) g/dL ABG Carboxyhemoglobin (0.5-1.5) % POC ABG HHb (Measured) (0.0-5.0) % ABG Methemoglobin (0.0-3.0) % [place] Test A-a O2 Difference mm/Hg Respiratory Index Hgb O2 Saturation (95.0-98.0) % Vent Mode FiO2 % Pressure Support CPAP Sodium (132-148) mmol/L Potassium (3.6-5.2) mmol/L Chloride (98-107) mmol/L Carbon Dioxide (22-30) mmol/L Anion Gap (10-20) BUN (7-17) mg/dL Creatinine (0.7-1.2) mg/dL Est GFR ( Amer) Est GFR (Non-Af Amer) POC Glucose (mg/dL) 117 H (65-110) mg/dL Random Glucose (65-105) mg/dL Calcium (8.6-10.4) mg/dl Phosphorus (2.5-4.5) mg/dL Magnesium (1.6-2.3) mg/dL Total Bilirubin (0.2-1.3) mg/dL AST (14-36) U/L ALT (9-52) U/L Alkaline Phosphatase (38-126) U/L Total Protein (6.3-8.3) g/dL Albumin (3.5-5.0) g/dL Globulin (2.2-3.9) gm/dL Albumin/Globulin Ratio (1.0-2.1) Laboratory Results - last 24 hr 10/15/18 10/15/18 10/16/18 18:33 21:42 01:51 WBC RBC Hgb Hct MCV MCH MCHC RDW Plt Count MPV Neut % (Auto) Lymph % (Auto) [place] % (Auto) Eos % (Auto) Baso % (Auto) Neut # (Auto) Lymph # (Auto) [place] # (Auto) Eos # (Auto) Baso # (Auto) Puncture Site pCO2 pO2 HCO3 ABG pH ABG Total CO2 ABG O2 Saturation ABG Base Excess ABG Hemoglobin ABG Carboxyhemoglobin POC ABG HHb (Measured) ABG Methemoglobin Jimenez Test A-a O2 Difference Respiratory Index Hgb O2 Saturation Vent Mode FiO2 Pressure Support CPAP Sodium Potassium Chloride Carbon Dioxide Anion Gap BUN Creatinine Est GFR ( Amer) Est GFR (Non-Af Amer) POC Glucose (mg/dL) 117 H 127 H 166 H Random Glucose Calcium Phosphorus Magnesium Total Bilirubin AST ALT Alkaline Phosphatase Total Protein Albumin Globulin Albumin/Globulin Ratio 10/16/18 10/16/18 10/16/18 05:16 06:06 06:32 WBC 18.6 H RBC 3.32 L Hgb 9.3 L Hct 29.4 L MCV 88.6 MCH 28.1 MCHC 31.7 L RDW 15.5 H Plt Count 301 MPV 9.4 Neut % (Auto) 66.5 Lymph % (Auto) 15.1 L [place] % (Auto) 8.1 Eos % (Auto) 9.3 H Baso % (Auto) 1.0 Neut # (Auto) 12.4 H Lymph # (Auto) 2.8 [place] # (Auto) 1.5 H Eos # (Auto) 1.7 H Baso # (Auto) 0.2 Puncture Site L rad pCO2 47 H pO2 86 HCO3 27.9 ABG pH 7.40 ABG Total CO2 30.5 H ABG O2 Saturation 99.2 H ABG Base Excess 3.8 H ABG Hemoglobin 8.8 L ABG Carboxyhemoglobin 2.7 H POC ABG HHb (Measured) 0.8 ABG Methemoglobin 0.5 [place]enez Test Pos A-a O2 Difference 105.0 Respiratory Index 1.2 Hgb O2 Saturation 96.0 Vent Mode Cpap FiO2 35.0 Pressure Support 12 CPAP 5 Sodium Potassium Chloride Carbon Dioxide Anion Gap BUN Creatinine Est GFR ( Amer) Est GFR (Non-Af Amer) POC Glucose (mg/dL) 229 H Random Glucose Calcium Phosphorus Magnesium Total Bilirubin AST ALT Alkaline Phosphatase Total Protein Albumin Globulin Albumin/Globulin Ratio 10/16/18 10/16/18 10/16/18 06:32 09:32 14:01 WBC RBC Hgb Hct MCV MCH MCHC RDW Plt Count MPV Neut % (Auto) Lymph % (Auto) [place] % (Auto) Eos % (Auto) Baso % (Auto) Neut # (Auto) Lymph # (Auto) [place] # (Auto) Eos # (Auto) Baso # (Auto) Puncture Site pCO2 pO2 HCO3 ABG pH ABG Total CO2 ABG O2 Saturation ABG Base Excess ABG Hemoglobin ABG Carboxyhemoglobin POC ABG HHb (Measured) ABG Methemoglobin Jimenez Test A-a O2 Difference Respiratory Index Hgb O2 Saturation Vent Mode FiO2 Pressure Support CPAP Sodium 133 Potassium 4.6 Chloride 97 L Carbon Dioxide 30 Anion Gap 11 BUN 38 H Creatinine 2.7 H Est GFR ( Amer) 21 Est GFR (Non-Af Amer) 17 POC Glucose (mg/dL) 182 H 211 H Random Glucose 220 H D Calcium 7.7 L Phosphorus 3.1 Magnesium 1.9 Total Bilirubin 0.4 AST 42 H ALT 34 Alkaline Phosphatase 149 H D Total Protein 6.1 L Albumin 3.3 L Globulin 2.8 Albumin/Globulin Ratio 1.2 10/16/18 17:40 WBC RBC Hgb Hct MCV MCH MCHC RDW Plt Count MPV Neut % (Auto) Lymph % (Auto) [place] % (Auto) Eos % (Auto) Baso % (Auto) Neut # (Auto) Lymph # (Auto) [place] # (Auto) Eos # (Auto) Baso # (Auto) Puncture Site pCO2 pO2 HCO3 ABG pH ABG Total CO2 ABG O2 Saturation ABG Base Excess ABG Hemoglobin ABG Carboxyhemoglobin POC ABG HHb (Measured) ABG Methemoglobin Jimenez Test A-a O2 Difference Respiratory Index Hgb O2 Saturation Vent Mode FiO2 Pressure Support CPAP Sodium Potassium Chloride Carbon Dioxide Anion Gap BUN Creatinine Est GFR ( Amer) Est GFR (Non-Af Amer) POC Glucose (mg/dL) 280 H Random Glucose Calcium Phosphorus Magnesium Total Bilirubin AST ALT Alkaline Phosphatase Total Protein Albumin Globulin Albumin/Globulin Ratio Radiology Impressions: Radiology Impressions Chest X-Ray 10/16/18 07:00 IMPRESSION: Stable cardiomegaly. No definite interval pulmonary vascular congestion, infiltrate or pleural effusion bilaterally. Tubes and catheters stable as discussed above. Attending/Attestation - Attestation I have personally seen and examined this patient.: Yes I have fully participated in the care of the patient.: Yes I have reviewed all pertinent clinical information: Yes Notes (Text): 10/16/18 18:35 Patient seen and examined in the intensive care unit. Case discussed with housestaff in the morning rounds Patient tolerated CPAP but later became very restless and agitated Febrile with T-max of 100.7 Plan cultures done Continue antibiotics Discussed with family at length
[2018-10-16] MEDS: Insulin Detemir 100 units/ml Vial (Levemir) SC SCH (22:30)
--- NOTE | 2018-10-16 22:46 | CP.PCM.PN ---
Subjective - Date & Time of Evaluation Date of Evaluation: 10/16/18 Time of Evaluation: 22:44 - Subjective Subjective: Patient is morning was responding. Later patient started having high-grade fever. Still having thick yellow mucus production. 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 Infectious disease evaluation was called in. Currently on vancomycin. Vital signs stable otherwise. Chest good air entry Regular heart sounds. Abdomen soft. Edema negative. Neurologically patient is still having some kind of changes, she is not responding to verbal cues. There is some confusion. In my opinion patient will benefit having a tracheostomy for airway protection. With the tracheostomy I think there is a possibility that the patient may recover fast. I discussed with the patient's daughter. She is agreeing. We will get a surgical evaluation. Meanwhile we will continue the current aggressive treatment including antibiotic infectious disease evaluation renal dialysis will follow the patient There is a chance the patient may need a feeding tube also Objective - Vital Signs/Intake and Output Vital Signs (last 24 hours): Temp Pulse Resp BP Pulse Ox 98.2 F 64 20 166/63 H 100 10/16/18 20:00 10/16/18 20:20 10/16/18 20:20 10/16/18 20:20 10/16/18 20:20 Intake and Output: 10/16/18 10/17/18 18:59 06:59 Intake Total 1279.0 231.4 Balance 1279.0 231.4 - Medications Medications: Current Medications Acetaminophen (Tylenol 325mg Tab) 650 mg PO Q6 PRN PRN Reason: pain+fever Last Admin: 10/09/18 09:59 Dose: 650 mg Albuterol/Ipratropium (Duoneb 3 Mg/0.5 Mg (3 Ml) Ud) 3 ml INH RQ6 [facility] Last Admin: 10/16/18 19:14 Dose: 3 ml Aspirin (Aspirin Chewable) 81 mg PO DAILY [facility] Last Admin: 10/16/18 10:11 Dose: 81 mg Epoetin [place] (Procrit) 10,000 unit IV MWF [facility] Heparin Sodium (Porcine) (Heparin) 5,000 units SC Q12 [facility] Last Admin: 10/16/18 22:30 Dose: 5,000 units Hydralazine HCl (Apresoline) 50 mg PO Q8 [facility] Last Admin: 10/16/18 22:30 Dose: 50 mg Hydrocortisone (Cortef) 10 mg PO DAILY [facility] Last Admin: 10/16/18 10:11 Dose: 10 mg Dexmedetomidine HCl 200 mcg/ (Sodium Chloride) 50 mls @ 4.38 mls/hr IV TITR PRN; Protocol PRN Reason: Agitation Last Admin: 10/16/18 22:30 Dose: 0.4 mcg/kg/hr, 8.75 mls/hr Ferric Sodium Gluconate Complex 125 mg/ Sodium Chloride 110 mls @ 110 mls/hr IVPB Q24H [facility] Stop: 10/23/18 11:31 Last Admin: 10/16/18 11:45 Dose: 110 mls/hr Vancomycin HCl 1 gm/ Sodium (Chloride) 250 mls @ 166.7 mls/hr IVPB MWF [facility]; Protocol Cefepime HCl 1 gm/ Dextrose 50 mls @ 100 mls/hr IVPB DAILY [facility]; Protocol Last Admin: 10/16/18 14:38 Dose: 100 mls/hr Insulin Aspart (Novolog) 0 unit SC Q4H [facility]; Protocol Last Admin: 10/16/18 17:58 Dose: 4 units Insulin Detemir (Levemir) 30 unit SC Q12 [facility] Last Admin: 10/16/18 22:30 Dose: 30 u Isosorbide Dinitrate (Isordil) 20 mg PO BID [facility] Last Admin: 10/16/18 17:57 Dose: 20 mg Levetiracetam (Keppra) 750 mg PO BID [facility] Last Admin: 10/16/18 17:56 Dose: 750 mg Levothyroxine Sodium (Synthroid) 50 mcg PO 0600 [facility] Last Admin: 10/16/18 06:46 Dose: 50 mcg Metoprolol Tartrate (Lopressor) 25 mg NG BID [facility] Last Admin: 10/16/18 17:57 Dose: 25 mg Mupirocin (Bactroban 2% Nasal) 0.25 gm [place]ILL[place] BID [facility] Last Admin: 10/16/18 18:31 Dose: 0.25 gm Pantoprazole Sodium (Protonix Susp) 40 mg PO 0600 [facility] Last Admin: 10/16/18 06:46 Dose: 40 mg Rosuvastatin Calcium (Crestor) 10 mg PO HS [facility] Last Admin: 10/16/18 22:30 Dose: 10 mg - Labs Labs: 10/16/18 06:32 10/16/18 06:32 PT 13.9 SECONDS (9.7-12.2) H 10/06/18 21:04 INR 1.3 10/06/18 21:04 APTT 45 SECONDS (21-34) H D 10/06/18 21:04 Assessment and Plan (1) Acute on chronic renal failure Status: Acute (2) Diabetic nephropathy associated with type 2 diabetes mellitus Status: Acute (3) Uremia, acute Status: Acute
[2018-10-17] MEDS: Albuterol-Ipratrop 3 mg / 0.5 (3 ml) UD INH SCH ×4 (01:40→19:47)
[2018-10-17] MEDS: (Novolog) Insulin Aspart, Recombinant 100 u/ml 10 ml vial SC SCH ×6 (02:15→22:30)
[2018-10-17] MEDS: Dexmedetomidine Hydrochloride 200 MCG in Sodium Chloride 0.9% 48 ML IV PRN ×3 (03:15→16:35)
[2018-10-17 05:40] LABS: ARTERIAL BLOOD GAS HCO3 29.4 mmol/L (21-28); ARTERIAL BLOOD GAS HEMOGLOBIN 8.8 g/dL (11.7-17.4); ARTERIAL BLOOD GAS PCO2 45 mm/Hg (35-45); ARTERIAL BLOOD GAS PH 7.44 (7.35-7.45); ARTERIAL BLOOD GAS PO2 96 mm/Hg (80-100)
[2018-10-17] MEDS: Pantoprazole 40 mg Susp UD PO SCH (05:45)
[2018-10-17] MEDS: Levothyroxine 50 MCG TAB PO SCH (05:45)
--- NOTE | 2018-10-17 05:57 | CARD ---
APPROVED REPORT Date of service: 10/15/2018 EKG Measurement Heart [id number] <Conclusion> Sinus rhythm with premature atrial complexes in a pattern of bigeminy Low voltage QRS Borderline ECG
[2018-10-17 06:14] LABS: BASO # 0.1 K/uL (0.0-0.2); BASO % 0.5 % (0.0-2.0); EOS # 1.6 K/uL (0.0-0.7); EOS % 10.1 % (0.0-4.0); HEMOGLOBIN 9.1 g/dL (11.0-16.0); LYMPH # 2.7 K/uL (1.0-4.3); LYMPH % 16.7 % (20.0-40.0); MEAN CELL VOLUME 88.6 fL (81.0-99.0); MEAN CORPUSCULAR HEMOGLOBIN 27.8 pg (27.0-31.0); MEAN CORPUSCULAR HGB CONC 31.4 g/dL (33.0-37.0); MEAN PLATELET VOLUME 9.3 fL (7.2-11.7); MONO # 1.2 K/uL (0.0-0.8); MONO % 7.5 % (0.0-10.0); NEUT # 10.7 K/uL (1.8-7.0); NEUT % 65.2 % (50.0-75.0); NRBC % 0.2 % (0.0-2.0); RBC 3.25 Mil/uL (3.80-5.20); RED CELL DISTRIBUTION WIDTH 15.7 % (11.5-14.5); WHITE BLOOD COUNT 16.4 K/uL (4.8-10.8)
[2018-10-17 06:25] LABS: ALB/GLOB RATIO 1.2 (1.0-2.1); ALBUMIN 3.3 g/dL (3.5-5.0); CALCIUM 7.7 mg/dl (8.6-10.4)
--- NOTE | 2018-10-17 08:05 | RAD ---
Date of service: 10/17/2018 HISTORY: vent COMPARISON: Portable chest 10/16/2018. FINDINGS: LUNGS: Endotracheal and nasogastric tubes are not significantly changed in position as well as right central venous dialysis catheter. No infiltrate identified bilaterally. PLEURA: No significant pleural effusion identified, no pneumothorax apparent. CARDIOVASCULAR: Calcific atherosclerotic changes are seen related to the thoracic aorta. Cardiomegaly appears stable. No definite pulmonary vascular congestion. OSSEOUS STRUCTURES: No significant abnormalities. VISUALIZED UPPER ABDOMEN: Normal. OTHER FINDINGS: None. IMPRESSION: Stable cardiomegaly with no definite pulmonary vascular congestion. No infiltrate identified bilaterally.
--- NOTE | 2018-10-17 08:49 | CON ---
DATE: 10/16/2018 REQUESTED BY: Renato Orlando MD HISTORY OF PRESENT ILLNESS: This patient is a 72-year-old female and she was admitted here with past medical history of chronic kidney disease. She was not on dialysis, CHF, coronary artery disease, history of stents, pituitary adenoma status post resection, diabetes type 2. She was admitted with respiratory failure and cardiac arrest and she had a PermCath placed . She also had an aortic valve fistula placed on 10/05/2018 and has a PermCath. She has an altered mental status due to anoxic brain injury. She is on hemodialysis. She is on CPAP, they are planning to extubate. She was having fevers this morning. She has had history of MRSA and has been getting vancomycin on different days. Initially, she got the last dose on Monday and on Monday her levels were high, so they did not give any and I am asked to see her today and she is due to have vancomycin tomorrow. ALLERGIES: SHE IS NOT ALLERGIC TO ANY MEDICINE. MEDICATIONS: She is on Tylenol, DuoNeb, aspirin, she just started cefepime 1 g daily. She is on dexmedetomidine which is anxiolytic sedative. She was on ventilator. She is on Procrit, iron, heparin subcu. She is on Apresoline/hydralazine. She is on Solu-Cortef 10 mg p.o. daily. She is on NovoLog, Levemir, Isordil, Keppra, Synthroid, Lopressor. She gets Bactroban to her nose, Protonix, Crestor, and she is on vancomycin 1 g MWF now which are going to be the dialysis days. The history is obtained from the chart as she is lethargic, unresponsive, and may have anoxic encephalopathy. PAST MEDICAL HISTORY: Noncontributory. SOCIAL HISTORY: Negative. SURGICAL HISTORY: Reviewed from the chart. Now she has AV graft and a fistula, I mean to say hemodialysis catheter. PHYSICAL EXAMINATION: VITAL SIGNS: I find her temperature is 98.2, pulse is 64, blood pressure is 166/83, and respirations are 20. GENERAL: Unresponsive. She was, however, moving her upper limbs. She has a right side catheter present. She also has a right midline present on the right arm and the catheter is in subclavian right. HEENT: Head is atraumatic and normocephalic. Eyes are closed. She is unresponsive. NECK: Supple. JVP is flat. She is intubated. LUNGS: Clear to auscultation. No crackles or rales heard. HEART: S1 and S2, regular. No murmurs appreciated. ABDOMEN: Soft and nontender. No guarding. No rigidity present. EXTREMITIES: There is no cyanosis. No clubbing. May have some trace edema. SKIN: Normal color. LABORATORY DATA: Labs are noted. Labs show white count is 18.6 today, hemoglobin 9.3, hematocrit 29.4, platelet count is 301. There was an ABG done, which showed pH of 7.4, CO2 was 30.5, saturations 99.2, and CO2 was 47. This is venous I think. Does not show any lactic acid. Sodium 133, potassium 4.6, chloride 97, CO2 is 30, BUN is 11, creatinine is 2.7; has decreased further. Yesterday, her vancomycin random level was 31.9, which is high. So, I have asked them to repeat it tomorrow. Her septic workup shows that sputum before had MRSA and now has MRSA and Citrobacter and Citrobacter is sensitive to Maxipime. So, I have added Maxipime. Chest x-ray was unremarkable, however, which was done on 10/16/2018. IMPRESSION AND PLAN: This patient is with anoxic encephalopathy, anoxic brain injury, who was intubated, is with fevers. She has methicillin-resistant Staphylococcus aureus and Citrobacter in the sputum. We will start on Maxipime as well as she has a high level of vancomycin, need to check the levels of vancomycin before re-dosing the next dose of vancomycin. The patient is also a diabetic, hypertensive, and history of coronary artery disease. We will follow with the consultants and she remains sedated. Sara Barrios MD
[2018-10-17] MEDS: levETIRAcetam 100 mg/ml (5ml) Oral Syringe PO SCH ×2 (09:17→18:01)
[2018-10-17] MEDS: Mupirocin 2% Ointment (NASAL) NAS SCH ×2 (09:17→18:01)
[2018-10-17] MEDS: Insulin Detemir 100 units/ml Vial (Levemir) SC SCH ×2 (09:18→22:48)
--- NOTE | 2018-10-17 10:45 | CP.CCUPN ---
<Dyllan Patton - Last Filed: 10/17/18 11:55> CCU Subjective - Physician Review Subjective (Free Text): PGY-[address] ICU progress note for Dr Ríos Patient seen and examined at bedside. Patient is not alert or oriented, opening eyes. Moves extremities intermittently. On ventilator. Unable to obtain ROS due to patient's mental status. Critical Care Time Spent (in minutes): 45 CCU Objective - Vital Signs / Intake & Output Vital Signs (Last 4 hours): Vital Signs Pulse Resp BP Pulse Ox 10/17/18 09:18 151/34 H 10/17/18 07:01 63 14 115/39 L 98 10/17/18 07:00 62 14 98 Intake and Output (Last 8hrs): Intake & Output 10/16/18 10/17/18 10/17/18 22:59 06:59 14:59 Intake Total 801.8 689.4 117.7 Balance 801.8 689.4 117.7 Weight 187 lb 6.287 oz Intake: IV 45.6 50 50 Intake, IV Amount 46.2 59.4 7.7 Right Upper Arm Midline 46.2 59.4 7.7 Oral 130 100 Tube Feeding 480 480 60 Other 100 Other: # Voids Urine, Voided 1 # Bowel Movements 1 1 - Physical Exam Physical Exam Limitations: Positive for: Altered Mental Status, Clinical Condition Head: Positive for: Atraumatic, Normocephalic Extroacular Muscles: Positive for: EOMI (dropping eyelid left) Conjunctiva: Positive for: Normal Mouth: Positive for: Dry, Other (intubated ETT in place) Respiratory/Chest: Positive for: Decreased Breath Sounds. Negative for: Respiratory Distress, Accessory Muscle Use, Tachypneic Cardiovascular: Positive for: Regular Rate and Rhythm, Normal S1, S2 Abdomen: Positive for: Normal Bowel Sounds. Negative for: Tenderness, Distention, Rebound, Guarding Upper Extremity: Positive for: Normal Inspection. Negative for: Cyanosis Lower Extremity: Positive for: Normal Inspection Neurological: Negative for: GCS=15, CN II-XII Intact, Speech Normal Skin: Positive for: Warm, Dry, Normal Color, Other (permacath in place, right femoral TLC) Psychiatric: Negative for: Alert, Oriented x 3 - Medications Active Medications: Active Medications Generic Name Dose Route Start Last Admin Trade Name Freq PRN Reason Stop Dose Admin Acetaminophen 650 mg 10/08/18 10:08 10/09/18 09:59 Tylenol 325mg Tab PO 650 mg Q6 PRN Administration pain+fever Albuterol/Ipratropium 3 ml 10/12/18 14:00 10/17/18 08:08 Duoneb 3 Mg/0.5 Mg (3 Ml) Ud INH 3 ml RQ6 JOCELYN Administration Aspirin 81 mg 10/08/18 10:00 10/17/18 09:17 Aspirin Chewable PO 81 mg DAILY JOCELYN Administration Epoetin Dedrick 10,000 unit 10/17/18 09:00 Procrit IV MWF [facility] Heparin Sodium (Porcine) 5,000 units 10/15/18 10:00 10/17/18 09:32 Heparin SC Not Given Q12 [facility] Hydralazine HCl 50 mg 10/16/18 10:45 10/17/18 05:45 Apresoline PO 50 mg Q8 JOCELYN Administration Hydrocortisone 10 mg 10/15/18 10:00 10/17/18 09:19 Cortef PO 10 mg DAILY [facility] Administration Dexmedetomidine HCl 200 mcg/ 50 mls @ 4.38 mls/hr 10/12/18 09:02 10/17/18 10:00 Sodium Chloride IV 0.35 mcg/kg/hr TITR PRN 7.66 mls/hr Agitation Administration Protocol 0.2 MCG/KG/HR Ferric Sodium Gluconate 110 mls @ 110 mls/hr 10/15/18 11:30 10/16/18 11:45 Complex 125 mg/ Sodium IVPB 10/23/18 11:31 110 mls/hr Chloride Q24H [facility] Administration Vancomycin HCl 1 gm/ Sodium 250 mls @ 166.7 mls/hr 10/17/18 09:00 10/17/18 08:00 Chloride IVPB 166.7 mls/hr [facility] Administration Protocol Cefepime HCl 1 gm/ Dextrose 50 mls @ 100 mls/hr 10/16/18 14:00 10/17/18 09:20 IVPB 100 mls/hr DAILY [facility] Administration Protocol Insulin Aspart 0 unit 10/14/18 22:00 10/17/18 06:00 Novolog SC Not Given Q4H [facility] Protocol Insulin Detemir 30 unit 10/14/18 10:00 10/17/18 09:18 Levemir SC 30 u Q12 JOCELYN Administration Isosorbide Dinitrate 20 mg 10/13/18 10:00 10/17/18 09:17 Isordil PO 20 mg BID JOCELYN Administration Levetiracetam 750 mg 10/08/18 10:00 10/17/18 09:17 Keppra PO 750 mg BID JOCELYN Administration Levothyroxine Sodium 50 mcg 09/29/18 08:00 10/17/18 05:45 Synthroid PO 50 mcg 0600 JOCELYN Administration Metoprolol Tartrate 25 mg 10/15/18 22:00 10/17/18 09:18 Lopressor NG 25 mg BID JOCELYN Administration Mupirocin 0.25 gm 10/16/18 10:00 10/17/18 09:17 Bactroban 2% Nasal HILLARY 0.25 gm BID JOCELYN Administration Pantoprazole Sodium 40 mg 10/09/18 06:00 10/17/18 05:45 Protonix Susp PO 40 mg 0600 JOCELYN Administration Rosuvastatin Calcium 10 mg 09/30/18 22:00 10/16/18 22:30 Crestor PO 10 mg HS JOCELYN Administration - Patient Studies Lab Studies: Lab Studies 10/17/18 10/17/18 10/17/18 Range/Units 05:47 05:47 05:47 WBC 16.4 H (4.8-10.8) K/uL RBC 3.25 L (3.80-5.20) Mil/uL Hgb 9.1 L (11.0-16.0) g/dL Hct 28.8 L (34.0-47.0) % MCV 88.6 (81.0-99.0) fL MCH 27.8 (27.0-31.0) pg MCHC 31.4 L (33.0-37.0) g/dL RDW 15.7 H (11.5-14.5) % Plt Count 333 (130-400) K/uL MPV 9.3 (7.2-11.7) fL Neut % (Auto) 65.2 (50.0-75.0) % Lymph % (Auto) 16.7 L (20.0-40.0) % Mcminn % (Auto) 7.5 (0.0-10.0) % Eos % (Auto) 10.1 H (0.0-4.0) % Baso % (Auto) 0.5 (0.0-2.0) % Neut # (Auto) 10.7 H (1.8-7.0) K/uL Lymph # (Auto) 2.7 (1.0-4.3) K/uL Mcminn # (Auto) 1.2 H (0.0-0.8) K/uL Eos # (Auto) 1.6 H (0.0-0.7) K/uL Baso # (Auto) 0.1 (0.0-0.2) K/uL Puncture Site pCO2 (35-45) mm/Hg pO2 (80-100) mm/Hg HCO3 (21-28) mmol/L ABG pH (7.35-7.45) ABG Total CO2 (22-28) mmol/L ABG O2 Saturation (95-98) % ABG Base Excess (-2.0-3.0) mmol/L ABG Hemoglobin (11.7-17.4) g/dL ABG Carboxyhemoglobin (0.5-1.5) % POC ABG HHb (Measured) (0.0-5.0) % ABG Methemoglobin (0.0-3.0) % Jimenez Test A-a O2 Difference mm/Hg Respiratory Index Hgb O2 Saturation (95.0-98.0) % Vent Mode Mechanical Rate FiO2 % Tidal Volume PEEP Sodium 140 (132-148) mmol/L Potassium 4.3 (3.6-5.2) mmol/L Chloride 103 (98-107) mmol/L Carbon Dioxide 31 H (22-30) mmol/L Anion Gap 11 (10-20) BUN 59 H (7-17) mg/dL Creatinine 4.2 H (0.7-1.2) mg/dL Est GFR ( Amer) 13 Est GFR (Non-Af Amer) 10 POC Glucose (mg/dL) (65-110) mg/dL Random Glucose 107 H D (65-105) mg/dL Calcium 7.7 L (8.6-10.4) mg/dl Phosphorus 3.5 (2.5-4.5) mg/dL Magnesium 2.2 (1.6-2.3) mg/dL Total Bilirubin 0.3 (0.2-1.3) mg/dL AST 26 (14-36) U/L ALT 27 (9-52) U/L Alkaline Phosphatase 121 (38-126) U/L Total Protein 6.1 L (6.3-8.3) g/dL Albumin 3.3 L (3.5-5.0) g/dL Globulin 2.8 (2.2-3.9) gm/dL Albumin/Globulin Ratio 1.2 (1.0-2.1) Random Vancomycin 20.2 ug/mL 10/17/18 10/17/18 10/17/18 Range/Units 05:33 05:12 01:19 WBC (4.8-10.8) K/uL RBC (3.80-5.20) Mil/uL Hgb (11.0-16.0) g/dL Hct (34.0-47.0) % MCV (81.0-99.0) fL MCH (27.0-31.0) pg MCHC (33.0-37.0) g/dL RDW (11.5-14.5) % Plt Count (130-400) K/uL MPV (7.2-11.7) fL Neut % (Auto) (50.0-75.0) % Lymph % (Auto) (20.0-40.0) % Mcminn % (Auto) (0.0-10.0) % Eos % (Auto) (0.0-4.0) % Baso % (Auto) (0.0-2.0) % Neut # (Auto) (1.8-7.0) K/uL Lymph # (Auto) (1.0-4.3) K/uL Mcminn # (Auto) (0.0-0.8) K/uL Eos # (Auto) (0.0-0.7) K/uL Baso # (Auto) (0.0-0.2) K/uL Puncture Site L brac pCO2 45 (35-45) mm/Hg pO2 96 (80-100) mm/Hg HCO3 29.4 H (21-28) mmol/L ABG pH 7.44 (7.35-7.45) ABG Total CO2 32.0 H (22-28) mmol/L ABG O2 Saturation 99.0 H (95-98) % ABG Base Excess 5.8 H (-2.0-3.0) mmol/L ABG Hemoglobin 8.8 L (11.7-17.4) g/dL ABG Carboxyhemoglobin 2.5 H (0.5-1.5) % POC ABG HHb (Measured) 1.0 (0.0-5.0) % ABG Methemoglobin 1.0 (0.0-3.0) % Jimenez Test Na A-a O2 Difference 97.0 mm/Hg Respiratory Index 1.0 Hgb O2 Saturation 95.5 (95.0-98.0) % Vent Mode Prvc Mechanical Rate 14 FiO2 35.0 % Tidal Volume 450 PEEP 5 Sodium (132-148) mmol/L Potassium (3.6-5.2) mmol/L Chloride (98-107) mmol/L Carbon Dioxide (22-30) mmol/L Anion Gap (10-20) BUN (7-17) mg/dL Creatinine (0.7-1.2) mg/dL Est GFR ( Amer) Est GFR (Non-Af Amer) POC Glucose (mg/dL) 118 H 249 H (65-110) mg/dL Random Glucose (65-105) mg/dL Calcium (8.6-10.4) mg/dl Phosphorus (2.5-4.5) mg/dL Magnesium (1.6-2.3) mg/dL Total Bilirubin (0.2-1.3) mg/dL AST (14-36) U/L ALT (9-52) U/L Alkaline Phosphatase (38-126) U/L Total Protein (6.3-8.3) g/dL Albumin (3.5-5.0) g/dL Globulin (2.2-3.9) gm/dL Albumin/Globulin Ratio (1.0-2.1) Random Vancomycin ug/mL 10/16/18 10/16/18 10/16/18 Range/Units 22:36 17:40 14:01 WBC (4.8-10.8) K/uL RBC (3.80-5.20) Mil/uL Hgb (11.0-16.0) g/dL Hct (34.0-47.0) % MCV (81.0-99.0) fL MCH (27.0-31.0) pg MCHC (33.0-37.0) g/dL RDW (11.5-14.5) % Plt Count (130-400) K/uL MPV (7.2-11.7) fL Neut % (Auto) (50.0-75.0) % Lymph % (Auto) (20.0-40.0) % Mcminn % (Auto) (0.0-10.0) % Eos % (Auto) (0.0-4.0) % Baso % (Auto) (0.0-2.0) % Neut # (Auto) (1.8-7.0) K/uL Lymph # (Auto) (1.0-4.3) K/uL Mcminn # (Auto) (0.0-0.8) K/uL Eos # (Auto) (0.0-0.7) K/uL Baso # (Auto) (0.0-0.2) K/uL Puncture Site pCO2 (35-45) mm/Hg pO2 (80-100) mm/Hg HCO3 (21-28) mmol/L ABG pH (7.35-7.45) ABG Total CO2 (22-28) mmol/L ABG O2 Saturation (95-98) % ABG Base Excess (-2.0-3.0) mmol/L ABG Hemoglobin (11.7-17.4) g/dL ABG Carboxyhemoglobin (0.5-1.5) % POC ABG HHb (Measured) (0.0-5.0) % ABG Methemoglobin (0.0-3.0) % Jimenez Test A-a O2 Difference mm/Hg Respiratory Index Hgb O2 Saturation (95.0-98.0) % Vent Mode Mechanical Rate FiO2 % Tidal Volume PEEP Sodium (132-148) mmol/L Potassium (3.6-5.2) mmol/L Chloride (98-107) mmol/L Carbon Dioxide (22-30) mmol/L Anion Gap (10-20) BUN (7-17) mg/dL Creatinine (0.7-1.2) mg/dL Est GFR ( Amer) Est GFR (Non-Af Amer) POC Glucose (mg/dL) 197 H 280 H 211 H (65-110) mg/dL Random Glucose (65-105) mg/dL Calcium (8.6-10.4) mg/dl Phosphorus (2.5-4.5) mg/dL Magnesium (1.6-2.3) mg/dL Total Bilirubin (0.2-1.3) mg/dL AST (14-36) U/L ALT (9-52) U/L Alkaline Phosphatase (38-126) U/L Total Protein (6.3-8.3) g/dL Albumin (3.5-5.0) g/dL Globulin (2.2-3.9) gm/dL Albumin/Globulin Ratio (1.0-2.1) Random Vancomycin ug/mL Laboratory Results - last 24 hr 10/16/18 10/16/18 10/16/18 14:01 17:40 22:36 WBC RBC Hgb Hct MCV MCH MCHC RDW Plt Count MPV Neut % (Auto) Lymph % (Auto) Mcminn % (Auto) Eos % (Auto) Baso % (Auto) Neut # (Auto) Lymph # (Auto) Mcminn # (Auto) Eos # (Auto) Baso # (Auto) Puncture Site pCO2 pO2 HCO3 ABG pH ABG Total CO2 ABG O2 Saturation ABG Base Excess ABG Hemoglobin ABG Carboxyhemoglobin POC ABG HHb (Measured) ABG Methemoglobin Jimenez Test A-a O2 Difference Respiratory Index Hgb O2 Saturation Vent Mode Mechanical Rate FiO2 Tidal Volume PEEP Sodium Potassium Chloride Carbon Dioxide Anion Gap BUN Creatinine Est GFR ( Amer) Est GFR (Non-Af Amer) POC Glucose (mg/dL) 211 H 280 H 197 H Random Glucose Calcium Phosphorus Magnesium Total Bilirubin AST ALT Alkaline Phosphatase Total Protein Albumin Globulin Albumin/Globulin Ratio Random Vancomycin 10/17/18 10/17/18 10/17/18 01:19 05:12 05:33 WBC RBC Hgb Hct MCV MCH MCHC RDW Plt Count MPV Neut % (Auto) Lymph % (Auto) Mcminn % (Auto) Eos % (Auto) Baso % (Auto) Neut # (Auto) Lymph # (Auto) Mcminn # (Auto) Eos # (Auto) Baso # (Auto) Puncture Site L brac pCO2 45 pO2 96 HCO3 29.4 H ABG pH 7.44 ABG Total CO2 32.0 H ABG O2 Saturation 99.0 H ABG Base Excess 5.8 H ABG Hemoglobin 8.8 L ABG Carboxyhemoglobin 2.5 H POC ABG HHb (Measured) 1.0 ABG Methemoglobin 1.0 Jimenez Test Na A-a O2 Difference 97.0 Respiratory Index 1.0 Hgb O2 Saturation 95.5 Vent Mode Prvc Mechanical Rate 14 FiO2 35.0 Tidal Volume 450 PEEP 5 Sodium Potassium Chloride Carbon Dioxide Anion Gap BUN Creatinine Est GFR ( Amer) Est GFR (Non-Af Amer) POC Glucose (mg/dL) 249 H 118 H Random Glucose Calcium Phosphorus Magnesium Total Bilirubin AST ALT Alkaline Phosphatase Total Protein Albumin Globulin Albumin/Globulin Ratio Random Vancomycin 10/17/18 10/17/18 10/17/18 05:47 05:47 05:47 WBC 16.4 H RBC 3.25 L Hgb 9.1 L Hct 28.8 L MCV 88.6 MCH 27.8 MCHC 31.4 L RDW 15.7 H Plt Count 333 MPV 9.3 Neut % (Auto) 65.2 Lymph % (Auto) 16.7 L Mcminn % (Auto) 7.5 Eos % (Auto) 10.1 H Baso % (Auto) 0.5 Neut # (Auto) 10.7 H Lymph # (Auto) 2.7 Mcminn # (Auto) 1.2 H Eos # (Auto) 1.6 H Baso # (Auto) 0.1 Puncture Site pCO2 pO2 HCO3 ABG pH ABG Total CO2 ABG O2 Saturation ABG Base Excess ABG Hemoglobin ABG Carboxyhemoglobin POC ABG HHb (Measured) ABG Methemoglobin Jimenez Test A-a O2 Difference Respiratory Index Hgb O2 Saturation Vent Mode Mechanical Rate FiO2 Tidal Volume PEEP Sodium 140 Potassium 4.3 Chloride 103 Carbon Dioxide 31 H Anion Gap 11 BUN 59 H Creatinine 4.2 H Est GFR ( Amer) 13 Est GFR (Non-Af Amer) 10 POC Glucose (mg/dL) Random Glucose 107 H D Calcium 7.7 L Phosphorus 3.5 Magnesium 2.2 Total Bilirubin 0.3 AST 26 ALT 27 Alkaline Phosphatase 121 Total Protein 6.1 L Albumin 3.3 L Globulin 2.8 Albumin/Globulin Ratio 1.2 Random Vancomycin 20.2 Radiology Impressions: Radiology Impressions Chest X-Ray 10/17/18 07:00 IMPRESSION: Stable cardiomegaly with no definite pulmonary vascular congestion. No infiltrate identified bilaterally. Fingerstick Blood Sugar Results: 118 Review of Systems - Review of Systems Systems not reviewed;Unavailable: Altered Mental Status Critical Care Progress Note - Vent Settings MODE:: PRVC TIDAL VOLUME:: 450 RESP RATE:: 14 FIO2:: 40 PEEP:: 5 - Prophylaxis GI Prophylaxis GI: PPI - Prophylaxis DVT Prophylaxis DVT: Heparin SQ Assessment/Plan - Assessment and Plan (Free Text) Plan: Patient is a 72 yo female w/ PMH of CKD5, CHF, CAD s/p stents, pituiatry adenoma s/p resection, DM2 admitted for respiratory and cardiac arrest s/p permacath placement and AVF on 10-05. s/p permacath on 10-11-18; possible AMS due to anoxic brain injury, now on HD MWF planning for Tracheostomy to be done by Gen surgery. Neuro Intubated and Sedated Keppra CV Hydralazine 50mg PO Q8H Metoprolol 25mg NG BID Isordil 30 mg PO BID Crestor Aspirin s/p cardiac arrest; code freeze completed Dr Yost consult Chest Xray portable repeated - f/u results Pulm Intubated; Vent settings as per ICU Tracheostomy - Dr Blank - f/u recs - possible planned for tomorrow Duoneb q6 hydrocortisone GI continue Tube feedings glucerna 1.5, 20 cc/hr, increase by 5 cc/hr, goal rate 60 cc/hr Protonix Heme EPO w/ Dialysis MWF Ferric sodium drip Renal ESRD- changed to MWF sessions - dialysis today EPO MWF Bumex 2mg 1 x permacath placed on 10-11 Dr Segundo Endo Levemir Insulin regular Levothyroxine Hydrocortisone Q6 accuchecks ID [id number] on 10-07 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 asp Cefepime Vanc with dialysis (MWF) Mupirocin 2% nasal Dr Barrios on case F/U blood culture DVT ppx: Heparin GI ppx: Protonix Plan discussed with Dr Michoacano Patton, PGY-1 - Date & Time Date: 10/17/18 Time: 09:00 <Eliseo Ríos - Last Filed: 10/17/18 15:33> CCU Objective - Vital Signs / Intake & Output Vital Signs (Last 4 hours): Vital Signs Temp Pulse Pulse Resp BP BP Pulse Ox 10/17/18 15:25 153/60 H 10/17/18 15:17 63 18 153/60 H 100 10/17/18 15:10 139/52 L 10/17/18 15:03 63 17 139/52 L 100 10/17/18 15:00 62 15 100 10/17/18 14:55 149/81 10/17/18 14:49 62 16 149/81 100 10/17/18 14:40 61 19 159/69 H 156/69 H 100 10/17/18 14:32 64 12 154/122 H 100 10/17/18 14:25 141/121 H 10/17/18 14:22 65 11 L 141/121 H 100 10/17/18 14:15 64 12 135/65 100 10/17/18 14:10 135/65 10/17/18 14:02 62 14 101/64 100 10/17/18 14:00 62 14 100 10/17/18 13:55 62 16 101/64 100 10/17/18 13:50 62 16 120/102 H 10/17/18 13:03 61 13 120/102 H 100 10/17/18 13:00 67 17 99 10/17/18 12:00 99.4 F 63 13 100 Intake and Output (Last 8hrs): Intake & Output 10/17/18 10/17/18 10/17/18 06:59 14:59 22:59 Intake Total 689.4 171.6 7.7 Balance 689.4 171.6 7.7 Weight 187 lb 6.287 oz Intake: IV 50 50 Intake, IV Amount 59.4 61.6 7.7 Right Upper Arm Midline 59.4 61.6 7.7 Oral 100 Tube Feeding 480 60 0 Other: # Voids Urine, Voided 1 # Bowel Movements 1 1 - Medications Active Medications: Active Medications Generic Name Dose Route Start Last Admin Trade Name Freq PRN Reason Stop Dose Admin Acetaminophen 650 mg 10/08/18 10:08 10/09/18 09:59 Tylenol 325mg Tab PO 650 mg Q6 PRN Administration pain+fever Albuterol/Ipratropium 3 ml 10/12/18 14:00 10/17/18 13:54 Duoneb 3 Mg/0.5 Mg (3 Ml) Ud INH 3 ml RQ6 JOCELYN Administration Aspirin 81 mg 10/08/18 10:00 10/17/18 09:17 Aspirin Chewable PO 81 mg DAILY [facility] Administration Epoetin Dedrick 10,000 unit 10/17/18 09:00 Procrit IV MWF [facility] Heparin Sodium (Porcine) 5,000 units 10/15/18 10:00 10/17/18 09:32 Heparin SC Not Given Q12 [facility] Hydralazine HCl 50 mg 10/16/18 10:45 10/17/18 05:45 Apresoline PO 50 mg Q8 [facility] Administration Hydrocortisone 10 mg 10/15/18 10:00 10/17/18 09:19 Cortef PO 10 mg DAILY [facility] Administration Dexmedetomidine HCl 200 mcg/ 50 mls @ 4.38 mls/hr 10/12/18 09:02 10/17/18 10:00 Sodium Chloride IV 0.35 mcg/kg/hr TITR PRN 7.66 mls/hr Agitation Administration Protocol 0.2 MCG/KG/HR Ferric Sodium Gluconate 110 mls @ 110 mls/hr 10/15/18 11:30 10/17/18 12:00 Complex 125 mg/ Sodium IVPB 10/23/18 11:31 110 mls/hr Chloride Q24H [facility] Administration Vancomycin HCl 1 gm/ Sodium 250 mls @ 166.7 mls/hr 10/17/18 09:00 10/17/18 08:00 Chloride IVPB 166.7 mls/hr [facility] Administration Protocol Cefepime HCl 1 gm/ Dextrose 50 mls @ 100 mls/hr 10/16/18 14:00 10/17/18 09:20 IVPB 100 mls/hr DAILY [facility] Administration Protocol Insulin Aspart 0 unit 10/14/18 22:00 10/17/18 11:00 Novolog SC Not Given Q4H [facility] Protocol Insulin Detemir 30 unit 10/14/18 10:00 10/17/18 09:18 Levemir SC 30 u Q12 [facility] Administration Isosorbide Dinitrate 20 mg 10/13/18 10:00 10/17/18 09:17 Isordil PO 20 mg BID JOCELYN Administration Levetiracetam 750 mg 10/08/18 10:00 10/17/18 09:17 Keppra PO 750 mg BID JOCELYN Administration Levothyroxine Sodium 50 mcg 09/29/18 08:00 10/17/18 05:45 Synthroid PO 50 mcg 0600 JOCELYN Administration Metoprolol Tartrate 25 mg 10/15/18 22:00 10/17/18 09:18 Lopressor NG 25 mg BID JOCELYN Administration Mupirocin 0.25 gm 10/16/18 10:00 10/17/18 09:17 Bactroban 2% Nasal HILLARY 0.25 gm BID JOCELYN Administration Pantoprazole Sodium 40 mg 10/09/18 06:00 10/17/18 05:45 Protonix Susp PO 40 mg 0600 JOCELYN Administration Rosuvastatin Calcium 10 mg 09/30/18 22:00 10/16/18 22:30 Crestor PO 10 mg HS JOCELYN Administration - Patient Studies Lab Studies: Microbiology Studies 10/16/18 11:45 Blood Culture - Preliminary Blood-Venous NO GROWTH AFTER 24 HOURS 10/16/18 12:10 Blood Culture - Preliminary Blood-Venous NO GROWTH AFTER 24 HOURS Lab Studies 10/17/18 10/17/18 10/17/18 Range/Units 14:02 11:00 05:47 WBC (4.8-10.8) K/uL RBC (3.80-5.20) Mil/uL Hgb (11.0-16.0) g/dL Hct (34.0-47.0) % MCV (81.0-99.0) fL MCH (27.0-31.0) pg MCHC (33.0-37.0) g/dL RDW (11.5-14.5) % Plt Count (130-400) K/uL MPV (7.2-11.7) fL Neut % (Auto) (50.0-75.0) % Lymph % (Auto) (20.0-40.0) % Mcminn % (Auto) (0.0-10.0) % Eos % (Auto) (0.0-4.0) % Baso % (Auto) (0.0-2.0) % Neut # (Auto) (1.8-7.0) K/uL Lymph # (Auto) (1.0-4.3) K/uL Mcminn # (Auto) (0.0-0.8) K/uL Eos # (Auto) (0.0-0.7) K/uL Baso # (Auto) (0.0-0.2) K/uL Puncture Site pCO2 (35-45) mm/Hg pO2 (80-100) mm/Hg HCO3 (21-28) mmol/L ABG pH (7.35-7.45) ABG Total CO2 (22-28) mmol/L ABG O2 Saturation (95-98) % ABG Base Excess (-2.0-3.0) mmol/L ABG Hemoglobin (11.7-17.4) g/dL ABG Carboxyhemoglobin (0.5-1.5) % POC ABG HHb (Measured) (0.0-5.0) % ABG Methemoglobin (0.0-3.0) % Jimenez Test A-a O2 Difference mm/Hg Respiratory Index Hgb O2 Saturation (95.0-98.0) % Vent Mode Mechanical Rate FiO2 % Tidal Volume PEEP Sodium 140 (132-148) mmol/L Potassium 4.3 (3.6-5.2) mmol/L Chloride 103 (98-107) mmol/L Carbon Dioxide 31 H (22-30) mmol/L Anion Gap 11 (10-20) BUN 59 H (7-17) mg/dL Creatinine 4.2 H (0.7-1.2) mg/dL Est GFR ( Amer) 13 Est GFR (Non-Af Amer) 10 POC Glucose (mg/dL) 89 107 (65-110) mg/dL Random Glucose 107 H D (65-105) mg/dL Calcium 7.7 L (8.6-10.4) mg/dl Phosphorus 3.5 (2.5-4.5) mg/dL Magnesium 2.2 (1.6-2.3) mg/dL Total Bilirubin 0.3 (0.2-1.3) mg/dL AST 26 (14-36) U/L ALT 27 (9-52) U/L Alkaline Phosphatase 121 (38-126) U/L Total Protein 6.1 L (6.3-8.3) g/dL Albumin 3.3 L (3.5-5.0) g/dL Globulin 2.8 (2.2-3.9) gm/dL Albumin/Globulin Ratio 1.2 (1.0-2.1) Random Vancomycin ug/mL 10/17/18 10/17/18 10/17/18 Range/Units 05:47 05:47 05:33 WBC 16.4 H (4.8-10.8) K/uL RBC 3.25 L (3.80-5.20) Mil/uL Hgb 9.1 L (11.0-16.0) g/dL Hct 28.8 L (34.0-47.0) % MCV 88.6 (81.0-99.0) fL MCH 27.8 (27.0-31.0) pg MCHC 31.4 L (33.0-37.0) g/dL RDW 15.7 H (11.5-14.5) % Plt Count 333 (130-400) K/uL MPV 9.3 (7.2-11.7) fL Neut % (Auto) 65.2 (50.0-75.0) % Lymph % (Auto) 16.7 L (20.0-40.0) % Mcminn % (Auto) 7.5 (0.0-10.0) % Eos % (Auto) 10.1 H (0.0-4.0) % Baso % (Auto) 0.5 (0.0-2.0) % Neut # (Auto) 10.7 H (1.8-7.0) K/uL Lymph # (Auto) 2.7 (1.0-4.3) K/uL Mcminn # (Auto) 1.2 H (0.0-0.8) K/uL Eos # (Auto) 1.6 H (0.0-0.7) K/uL Baso # (Auto) 0.1 (0.0-0.2) K/uL Puncture Site pCO2 (35-45) mm/Hg pO2 (80-100) mm/Hg HCO3 (21-28) mmol/L ABG pH (7.35-7.45) ABG Total CO2 (22-28) mmol/L ABG O2 Saturation (95-98) % ABG Base Excess (-2.0-3.0) mmol/L ABG Hemoglobin (11.7-17.4) g/dL ABG Carboxyhemoglobin (0.5-1.5) % POC ABG HHb (Measured) (0.0-5.0) % ABG Methemoglobin (0.0-3.0) % Jimenez Test A-a O2 Difference mm/Hg Respiratory Index Hgb O2 Saturation (95.0-98.0) % Vent Mode Mechanical Rate FiO2 % Tidal Volume PEEP Sodium (132-148) mmol/L Potassium (3.6-5.2) mmol/L Chloride (98-107) mmol/L Carbon Dioxide (22-30) mmol/L Anion Gap (10-20) BUN (7-17) mg/dL Creatinine (0.7-1.2) mg/dL Est GFR ( Amer) Est GFR (Non-Af Amer) POC Glucose (mg/dL) 118 H (65-110) mg/dL Random Glucose (65-105) mg/dL Calcium (8.6-10.4) mg/dl Phosphorus (2.5-4.5) mg/dL Magnesium (1.6-2.3) mg/dL Total Bilirubin (0.2-1.3) mg/dL AST (14-36) U/L ALT (9-52) U/L Alkaline Phosphatase (38-126) U/L Total Protein (6.3-8.3) g/dL Albumin (3.5-5.0) g/dL Globulin (2.2-3.9) gm/dL Albumin/Globulin Ratio (1.0-2.1) Random Vancomycin 20.2 ug/mL 10/17/18 10/17/18 10/16/18 Range/Units 05:12 01:19 22:36 WBC (4.8-10.8) K/uL RBC (3.80-5.20) Mil/uL Hgb (11.0-16.0) g/dL Hct (34.0-47.0) % MCV (81.0-99.0) fL MCH (27.0-31.0) pg MCHC (33.0-37.0) g/dL RDW (11.5-14.5) % Plt Count (130-400) K/uL MPV (7.2-11.7) fL Neut % (Auto) (50.0-75.0) % Lymph % (Auto) (20.0-40.0) % Mcminn % (Auto) (0.0-10.0) % Eos % (Auto) (0.0-4.0) % Baso % (Auto) (0.0-2.0) % Neut # (Auto) (1.8-7.0) K/uL Lymph # (Auto) (1.0-4.3) K/uL Mcminn # (Auto) (0.0-0.8) K/uL Eos # (Auto) (0.0-0.7) K/uL Baso # (Auto) (0.0-0.2) K/uL Puncture Site L brac pCO2 45 (35-45) mm/Hg pO2 96 (80-100) mm/Hg HCO3 29.4 H (21-28) mmol/L ABG pH 7.44 (7.35-7.45) ABG Total CO2 32.0 H (22-28) mmol/L ABG O2 Saturation 99.0 H (95-98) % ABG Base Excess 5.8 H (-2.0-3.0) mmol/L ABG Hemoglobin 8.8 L (11.7-17.4) g/dL ABG Carboxyhemoglobin 2.5 H (0.5-1.5) % POC ABG HHb (Measured) 1.0 (0.0-5.0) % ABG Methemoglobin 1.0 (0.0-3.0) % Jimenez Test Na A-a O2 Difference 97.0 mm/Hg Respiratory Index 1.0 Hgb O2 Saturation 95.5 (95.0-98.0) % Vent Mode Prvc Mechanical Rate 14 FiO2 35.0 % Tidal Volume 450 PEEP 5 Sodium (132-148) mmol/L Potassium (3.6-5.2) mmol/L Chloride (98-107) mmol/L Carbon Dioxide (22-30) mmol/L Anion Gap (10-20) BUN (7-17) mg/dL Creatinine (0.7-1.2) mg/dL Est GFR ( Amer) Est GFR (Non-Af Amer) POC Glucose (mg/dL) 249 H 197 H (65-110) mg/dL Random Glucose (65-105) mg/dL Calcium (8.6-10.4) mg/dl Phosphorus (2.5-4.5) mg/dL Magnesium (1.6-2.3) mg/dL Total Bilirubin (0.2-1.3) mg/dL AST (14-36) U/L ALT (9-52) U/L Alkaline Phosphatase (38-126) U/L Total Protein (6.3-8.3) g/dL Albumin (3.5-5.0) g/dL Globulin (2.2-3.9) gm/dL Albumin/Globulin Ratio (1.0-2.1) Random Vancomycin ug/mL 10/16/18 Range/Units 17:40 WBC (4.8-10.8) K/uL RBC (3.80-5.20) Mil/uL Hgb (11.0-16.0) g/dL Hct (34.0-47.0) % MCV (81.0-99.0) fL MCH (27.0-31.0) pg MCHC (33.0-37.0) g/dL RDW (11.5-14.5) % Plt Count (130-400) K/uL MPV (7.2-11.7) fL Neut % (Auto) (50.0-75.0) % Lymph % (Auto) (20.0-40.0) % Mcminn % (Auto) (0.0-10.0) % Eos % (Auto) (0.0-4.0) % Baso % (Auto) (0.0-2.0) % Neut # (Auto) (1.8-7.0) K/uL Lymph # (Auto) (1.0-4.3) K/uL Mcminn # (Auto) (0.0-0.8) K/uL Eos # (Auto) (0.0-0.7) K/uL Baso # (Auto) (0.0-0.2) K/uL Puncture Site pCO2 (35-45) mm/Hg pO2 (80-100) mm/Hg HCO3 (21-28) mmol/L ABG pH (7.35-7.45) ABG Total CO2 (22-28) mmol/L ABG O2 Saturation (95-98) % ABG Base Excess (-2.0-3.0) mmol/L ABG Hemoglobin (11.7-17.4) g/dL ABG Carboxyhemoglobin (0.5-1.5) % POC ABG HHb (Measured) (0.0-5.0) % ABG Methemoglobin (0.0-3.0) % Jimenez Test A-a O2 Difference mm/Hg Respiratory Index Hgb O2 Saturation (95.0-98.0) % Vent Mode Mechanical Rate FiO2 % Tidal Volume PEEP Sodium (132-148) mmol/L Potassium (3.6-5.2) mmol/L Chloride (98-107) mmol/L Carbon Dioxide (22-30) mmol/L Anion Gap (10-20) BUN (7-17) mg/dL Creatinine (0.7-1.2) mg/dL Est GFR ( Amer) Est GFR (Non-Af Amer) POC Glucose (mg/dL) 280 H (65-110) mg/dL Random Glucose (65-105) mg/dL Calcium (8.6-10.4) mg/dl Phosphorus (2.5-4.5) mg/dL Magnesium (1.6-2.3) mg/dL Total Bilirubin (0.2-1.3) mg/dL AST (14-36) U/L ALT (9-52) U/L Alkaline Phosphatase (38-126) U/L Total Protein (6.3-8.3) g/dL Albumin (3.5-5.0) g/dL Globulin (2.2-3.9) gm/dL Albumin/Globulin Ratio (1.0-2.1) Random Vancomycin ug/mL Laboratory Results - last 24 hr 10/16/18 10/16/18 10/17/18 17:40 22:36 01:19 WBC RBC Hgb Hct MCV MCH MCHC RDW Plt Count MPV Neut % (Auto) Lymph % (Auto) Mcminn % (Auto) Eos % (Auto) Baso % (Auto) Neut # (Auto) Lymph # (Auto) Mcminn # (Auto) Eos # (Auto) Baso # (Auto) Puncture Site pCO2 pO2 HCO3 ABG pH ABG Total CO2 ABG O2 Saturation ABG Base Excess ABG Hemoglobin ABG Carboxyhemoglobin POC ABG HHb (Measured) ABG Methemoglobin Jimenez Test A-a O2 Difference Respiratory Index Hgb O2 Saturation Vent Mode Mechanical Rate FiO2 Tidal Volume PEEP Sodium Potassium Chloride Carbon Dioxide Anion Gap BUN Creatinine Est GFR ( Amer) Est GFR (Non-Af Amer) POC Glucose (mg/dL) 280 H 197 H 249 H Random Glucose Calcium Phosphorus Magnesium Total Bilirubin AST ALT Alkaline Phosphatase Total Protein Albumin Globulin Albumin/Globulin Ratio Random Vancomycin 10/17/18 10/17/18 10/17/18 05:12 05:33 05:47 WBC RBC Hgb Hct MCV MCH MCHC RDW Plt Count MPV Neut % (Auto) Lymph % (Auto) Mcminn % (Auto) Eos % (Auto) Baso % (Auto) Neut # (Auto) Lymph # (Auto) Mcminn # (Auto) Eos # (Auto) Baso # (Auto) Puncture Site L brac pCO2 45 pO2 96 HCO3 29.4 H ABG pH 7.44 ABG Total CO2 32.0 H ABG O2 Saturation 99.0 H ABG Base Excess 5.8 H ABG Hemoglobin 8.8 L ABG Carboxyhemoglobin 2.5 H POC ABG HHb (Measured) 1.0 ABG Methemoglobin 1.0 Jimenez Test Na A-a O2 Difference 97.0 Respiratory Index 1.0 Hgb O2 Saturation 95.5 Vent Mode Prvc Mechanical Rate 14 FiO2 35.0 Tidal Volume 450 PEEP 5 Sodium Potassium Chloride Carbon Dioxide Anion Gap BUN Creatinine Est GFR ( Amer) Est GFR (Non-Af Amer) POC Glucose (mg/dL) 118 H Random Glucose Calcium Phosphorus Magnesium Total Bilirubin AST ALT Alkaline Phosphatase Total Protein Albumin Globulin Albumin/Globulin Ratio Random Vancomycin 20.2 10/17/18 10/17/18 10/17/18 05:47 05:47 11:00 WBC 16.4 H RBC 3.25 L Hgb 9.1 L Hct 28.8 L MCV 88.6 MCH 27.8 MCHC 31.4 L RDW 15.7 H Plt Count 333 MPV 9.3 Neut % (Auto) 65.2 Lymph % (Auto) 16.7 L Mcminn % (Auto) 7.5 Eos % (Auto) 10.1 H Baso % (Auto) 0.5 Neut # (Auto) 10.7 H Lymph # (Auto) 2.7 Mcminn # (Auto) 1.2 H Eos # (Auto) 1.6 H Baso # (Auto) 0.1 Puncture Site pCO2 pO2 HCO3 ABG pH ABG Total CO2 ABG O2 Saturation ABG Base Excess ABG Hemoglobin ABG Carboxyhemoglobin POC ABG HHb (Measured) ABG Methemoglobin Jimenez Test A-a O2 Difference Respiratory Index Hgb O2 Saturation Vent Mode Mechanical Rate FiO2 Tidal Volume PEEP Sodium 140 Potassium 4.3 Chloride 103 Carbon Dioxide 31 H Anion Gap 11 BUN 59 H Creatinine 4.2 H Est GFR ( Amer) 13 Est GFR (Non-Af Amer) 10 POC Glucose (mg/dL) 107 Random Glucose 107 H D Calcium 7.7 L Phosphorus 3.5 Magnesium 2.2 Total Bilirubin 0.3 AST 26 ALT 27 Alkaline Phosphatase 121 Total Protein 6.1 L Albumin 3.3 L Globulin 2.8 Albumin/Globulin Ratio 1.2 Random Vancomycin 10/17/18 14:02 WBC RBC Hgb Hct MCV MCH MCHC RDW Plt Count MPV Neut % (Auto) Lymph % (Auto) Mcminn % (Auto) Eos % (Auto) Baso % (Auto) Neut # (Auto) Lymph # (Auto) Mcminn # (Auto) Eos # (Auto) Baso # (Auto) Puncture Site pCO2 pO2 HCO3 ABG pH ABG Total CO2 ABG O2 Saturation ABG Base Excess ABG Hemoglobin ABG Carboxyhemoglobin POC ABG HHb (Measured) ABG Methemoglobin Jimenez Test A-a O2 Difference Respiratory Index Hgb O2 Saturation Vent Mode Mechanical Rate FiO2 Tidal Volume PEEP Sodium Potassium Chloride Carbon Dioxide Anion Gap BUN Creatinine Est GFR ( Amer) Est GFR (Non-Af Amer) POC Glucose (mg/dL) 89 Random Glucose Calcium Phosphorus Magnesium Total Bilirubin AST ALT Alkaline Phosphatase Total Protein Albumin Globulin Albumin/Globulin Ratio Random Vancomycin Radiology Impressions: Radiology Impressions Chest X-Ray 10/17/18 07:00 IMPRESSION: Stable cardiomegaly with no definite pulmonary vascular congestion. No infiltrate identified bilaterally. Attending/Attestation - Attestation I have personally seen and examined this patient.: Yes I have fully participated in the care of the patient.: Yes I have reviewed all pertinent clinical information: Yes Notes (Text): 10/17/18 15:32 Patient seen and examined in the intensive care unit. Case discussed with housestaff in the morning rounds. Remained intubated on ventilatory support tolerating CPAP but remained lethargic with copious secretions through the ET tube Family agreed for tracheostomy Continue antibiotics and present care
[2018-10-17] MEDS: Ferric Sodium Gluconat Complex 125 MG in Sodium Chloride 0.9% 100 ML IVPB SCH (12:00)
--- NOTE | 2018-10-17 12:14 | CP.PCM.PN ---
Subjective - Date & Time of Evaluation Date of Evaluation: 10/17/18 Time of Evaluation: 11:10 - Subjective Subjective: Vascular Surgery Progress note. Dr. Blank Pt seen and examined at bedside. No acute events overnight. Still remains intubated and sedated on precedex. On PRVC with PEEP 5, FiO2 35%. Family at bedside. Objective - Vital Signs/Intake and Output Vital Signs (last 24 hours): Temp Pulse Resp BP Pulse Ox 99.7 F H 58 L 20 111/42 L 98 10/17/18 08:00 10/17/18 10:32 10/17/18 10:32 10/17/18 10:32 10/17/18 10:32 Intake and Output: 10/17/18 10/17/18 06:59 18:59 Intake Total 1089.6 148.5 Balance 1089.6 148.5 - Medications Medications: Current Medications Acetaminophen (Tylenol 325mg Tab) 650 mg PO Q6 PRN PRN Reason: pain+fever Last Admin: 10/09/18 09:59 Dose: 650 mg Albuterol/Ipratropium (Duoneb 3 Mg/0.5 Mg (3 Ml) Ud) 3 ml INH RQ6 [facility] Last Admin: 10/17/18 08:08 Dose: 3 ml Aspirin (Aspirin Chewable) 81 mg PO DAILY [facility] Last Admin: 10/17/18 09:17 Dose: 81 mg Epoetin Dedrick (Procrit) 10,000 unit IV MWF [facility] Heparin Sodium (Porcine) (Heparin) 5,000 units SC Q12 [facility] Last Admin: 10/17/18 09:32 Dose: Not Given Hydralazine HCl (Apresoline) 50 mg PO Q8 [facility] Last Admin: 10/17/18 05:45 Dose: 50 mg Hydrocortisone (Cortef) 10 mg PO DAILY [facility] Last Admin: 10/17/18 09:19 Dose: 10 mg Dexmedetomidine HCl 200 mcg/ (Sodium Chloride) 50 mls @ 4.38 mls/hr IV TITR PRN; Protocol PRN Reason: Agitation Last Admin: 10/17/18 10:00 Dose: 0.35 mcg/kg/hr, 7.66 mls/hr Ferric Sodium Gluconate Complex 125 mg/ Sodium Chloride 110 mls @ 110 mls/hr IVPB Q24H [facility] Stop: 10/23/18 11:31 Last Admin: 10/16/18 11:45 Dose: 110 mls/hr Vancomycin HCl 1 gm/ Sodium (Chloride) 250 mls @ 166.7 mls/hr IVPB MWF [facility]; Protocol Last Admin: 10/17/18 08:00 Dose: 166.7 mls/hr Cefepime HCl 1 gm/ Dextrose 50 mls @ 100 mls/hr IVPB DAILY [facility]; Protocol Last Admin: 10/17/18 09:20 Dose: 100 mls/hr Insulin Aspart (Novolog) 0 unit SC Q4H [facility]; Protocol Last Admin: 10/17/18 11:00 Dose: Not Given Insulin Detemir (Levemir) 30 unit SC Q12 [facility] Last Admin: 10/17/18 09:18 Dose: 30 u Isosorbide Dinitrate (Isordil) 20 mg PO BID [facility] Last Admin: 10/17/18 09:17 Dose: 20 mg Levetiracetam (Keppra) 750 mg PO BID [facility] Last Admin: 10/17/18 09:17 Dose: 750 mg Levothyroxine Sodium (Synthroid) 50 mcg PO 0600 [facility] Last Admin: 10/17/18 05:45 Dose: 50 mcg Metoprolol Tartrate (Lopressor) 25 mg NG BID [facility] Last Admin: 10/17/18 09:18 Dose: 25 mg Mupirocin (Bactroban 2% Nasal) 0.25 gm HILLARY BID [facility] Last Admin: 10/17/18 09:17 Dose: 0.25 gm Pantoprazole Sodium (Protonix Susp) 40 mg PO 0600 [facility] Last Admin: 10/17/18 05:45 Dose: 40 mg Rosuvastatin Calcium (Crestor) 10 mg PO HS [facility] Last Admin: 10/16/18 22:30 Dose: 10 mg - Labs Labs: 10/17/18 05:47 10/17/18 05:47 PT 13.9 SECONDS (9.7-12.2) H 10/06/18 21:04 INR 1.3 10/06/18 21:04 APTT 45 SECONDS (21-34) H D 10/06/18 21:04 - Constitutional Appears: Chronically Ill - Head Exam Head Exam: ATRAUMATIC, NORMAL INSPECTION, NORMOCEPHALIC - Eye Exam Eye Exam: EOMI, Normal appearance. absent: Scleral icterus - ENT Exam ENT Exam: Mucous Membranes Moist Additional comments: Intubated and sedated - Respiratory Exam Additional comments: Intubated and sedated. - Cardiovascular Exam Cardiovascular Exam: absent: JVD - GI/Abdominal Exam GI & Abdominal Exam: Soft. absent: Distended, Tenderness, Rebound Assessment and Plan - Assessment and Plan (Free Text) Assessment: 72yo F with ventilator dependent respiratory failure. Surgery re-consulted for Tracheostomy placement. Plan: - Will plan for OR 10/18/18 for Percutaneous Trach placement - NPO past mn 10/17 Further recs as per Dr. Abhay Heck PGY2 surgery
--- NOTE | 2018-10-17 12:32 | CP.PCM.PN ---
Subjective - Date & Time of Evaluation Date of Evaluation: 10/17/18 Time of Evaluation: 12:27 - Subjective Subjective: agitated, on vent trial CPAP tolerating ok likely for trach soon for dialysis today Objective - Vital Signs/Intake and Output Vital Signs (last 24 hours): Temp Pulse Resp BP Pulse Ox 99.7 F H 58 L 20 111/42 L 98 10/17/18 08:00 10/17/18 10:32 10/17/18 10:32 10/17/18 10:32 10/17/18 10:32 Intake and Output: 10/17/18 10/17/18 06:59 18:59 Intake Total 1089.6 148.5 Balance 1089.6 148.5 - Medications Medications: Current Medications Acetaminophen (Tylenol 325mg Tab) 650 mg PO Q6 PRN PRN Reason: pain+fever Last Admin: 10/09/18 09:59 Dose: 650 mg Albuterol/Ipratropium (Duoneb 3 Mg/0.5 Mg (3 Ml) Ud) 3 ml INH RQ6 [facility] Last Admin: 10/17/18 08:08 Dose: 3 ml Aspirin (Aspirin Chewable) 81 mg PO DAILY [facility] Last Admin: 10/17/18 09:17 Dose: 81 mg Epoetin Dedrick (Procrit) 10,000 unit IV MWF [facility] Heparin Sodium (Porcine) (Heparin) 5,000 units SC Q12 [facility] Last Admin: 10/17/18 09:32 Dose: Not Given Hydralazine HCl (Apresoline) 50 mg PO Q8 [facility] Last Admin: 10/17/18 05:45 Dose: 50 mg Hydrocortisone (Cortef) 10 mg PO DAILY [facility] Last Admin: 10/17/18 09:19 Dose: 10 mg Dexmedetomidine HCl 200 mcg/ (Sodium Chloride) 50 mls @ 4.38 mls/hr IV TITR PRN; Protocol PRN Reason: Agitation Last Admin: 10/17/18 10:00 Dose: 0.35 mcg/kg/hr, 7.66 mls/hr Ferric Sodium Gluconate Complex 125 mg/ Sodium Chloride 110 mls @ 110 mls/hr IVPB Q24H [facility] Stop: 10/23/18 11:31 Last Admin: 10/16/18 11:45 Dose: 110 mls/hr Vancomycin HCl 1 gm/ Sodium (Chloride) 250 mls @ 166.7 mls/hr IVPB MWF [facility]; Protocol Last Admin: 10/17/18 08:00 Dose: 166.7 mls/hr Cefepime HCl 1 gm/ Dextrose 50 mls @ 100 mls/hr IVPB DAILY [facility]; Protocol Last Admin: 10/17/18 09:20 Dose: 100 mls/hr Insulin Aspart (Novolog) 0 unit SC Q4H [facility]; Protocol Last Admin: 10/17/18 11:00 Dose: Not Given Insulin Detemir (Levemir) 30 unit SC Q12 [facility] Last Admin: 10/17/18 09:18 Dose: 30 u Isosorbide Dinitrate (Isordil) 20 mg PO BID [facility] Last Admin: 10/17/18 09:17 Dose: 20 mg Levetiracetam (Keppra) 750 mg PO BID [facility] Last Admin: 10/17/18 09:17 Dose: 750 mg Levothyroxine Sodium (Synthroid) 50 mcg PO 0600 [facility] Last Admin: 10/17/18 05:45 Dose: 50 mcg Metoprolol Tartrate (Lopressor) 25 mg NG BID [facility] Last Admin: 10/17/18 09:18 Dose: 25 mg Mupirocin (Bactroban 2% Nasal) 0.25 gm HILLARY BID [facility] Last Admin: 10/17/18 09:17 Dose: 0.25 gm Pantoprazole Sodium (Protonix Susp) 40 mg PO 0600 [facility] Last Admin: 10/17/18 05:45 Dose: 40 mg Rosuvastatin Calcium (Crestor) 10 mg PO HS [facility] Last Admin: 10/16/18 22:30 Dose: 10 mg - Labs Labs: 10/17/18 05:47 10/17/18 05:47 PT 13.9 SECONDS (9.7-12.2) H 10/06/18 21:04 INR 1.3 10/06/18 21:04 APTT 45 SECONDS (21-34) H D 10/06/18 21:04 - Constitutional Appears: In Acute Distress, Confused, Chronically Ill - Head Exam Head Exam: ATRAUMATIC, NORMAL INSPECTION - Eye Exam Eye Exam: Normal appearance - Neck Exam Neck Exam: Normal Inspection. absent: Tenderness - Respiratory Exam Respiratory Exam: Rhonchi, Respiratory Distress - Cardiovascular Exam Cardiovascular Exam: REGULAR RHYTHM, +S1 - GI/Abdominal Exam GI & Abdominal Exam: Soft. absent: Tenderness - Extremities Exam Extremities Exam: Normal Inspection. absent: Tenderness - Neurological Exam Neurological Exam: Altered - Psychiatric Exam Psychiatric exam: Anxious - Skin Skin Exam: Dry, Warm Assessment and Plan (1) ESRD (end stage renal disease) Status: Acute (2) Diabetic nephropathy associated with type 2 diabetes mellitus Status: Acute (3) CAD (coronary artery disease) Status: Acute (4) HTN (hypertension) Status: Acute - Assessment and Plan (Free Text) Plan: Dialysis today possible trach follow up labs same ESAs, IV Fe
--- NOTE | 2018-10-17 15:05 | CP.PCM.PN ---
Subjective - Date & Time of Evaluation Date of Evaluation: 10/17/18 Time of Evaluation: 15:00 - Subjective Subjective: dictated Objective - Vital Signs/Intake and Output Vital Signs (last 24 hours): Temp Pulse Resp BP Pulse Ox 99.7 F H 62 16 149/81 100 10/17/18 08:00 10/17/18 13:55 10/17/18 13:55 10/17/18 14:55 10/17/18 13:55 Intake and Output: 10/17/18 10/17/18 06:59 18:59 Intake Total 1089.6 148.5 Balance 1089.6 148.5 - Medications Medications: Current Medications Acetaminophen (Tylenol 325mg Tab) 650 mg PO Q6 PRN PRN Reason: pain+fever Last Admin: 10/09/18 09:59 Dose: 650 mg Albuterol/Ipratropium (Duoneb 3 Mg/0.5 Mg (3 Ml) Ud) 3 ml INH RQ6 [facility] Last Admin: 10/17/18 13:54 Dose: 3 ml Aspirin (Aspirin Chewable) 81 mg PO DAILY [facility] Last Admin: 10/17/18 09:17 Dose: 81 mg Epoetin Dedrick (Procrit) 10,000 unit IV MWF [facility] Heparin Sodium (Porcine) (Heparin) 5,000 units SC Q12 [facility] Last Admin: 10/17/18 09:32 Dose: Not Given Hydralazine HCl (Apresoline) 50 mg PO Q8 [facility] Last Admin: 10/17/18 05:45 Dose: 50 mg Hydrocortisone (Cortef) 10 mg PO DAILY [facility] Last Admin: 10/17/18 09:19 Dose: 10 mg Dexmedetomidine HCl 200 mcg/ (Sodium Chloride) 50 mls @ 4.38 mls/hr IV TITR PRN; Protocol PRN Reason: Agitation Last Admin: 10/17/18 10:00 Dose: 0.35 mcg/kg/hr, 7.66 mls/hr Ferric Sodium Gluconate Complex 125 mg/ Sodium Chloride 110 mls @ 110 mls/hr IVPB Q24H [facility] Stop: 10/23/18 11:31 Last Admin: 10/16/18 11:45 Dose: 110 mls/hr Vancomycin HCl 1 gm/ Sodium (Chloride) 250 mls @ 166.7 mls/hr IVPB MWF [facility]; Protocol Last Admin: 10/17/18 08:00 Dose: 166.7 mls/hr Cefepime HCl 1 gm/ Dextrose 50 mls @ 100 mls/hr IVPB DAILY [facility]; Protocol Last Admin: 10/17/18 09:20 Dose: 100 mls/hr Insulin Aspart (Novolog) 0 unit SC Q4H [facility]; Protocol Last Admin: 10/17/18 11:00 Dose: Not Given Insulin Detemir (Levemir) 30 unit SC Q12 [facility] Last Admin: 10/17/18 09:18 Dose: 30 u Isosorbide Dinitrate (Isordil) 20 mg PO BID [facility] Last Admin: 10/17/18 09:17 Dose: 20 mg Levetiracetam (Keppra) 750 mg PO BID [facility] Last Admin: 10/17/18 09:17 Dose: 750 mg Levothyroxine Sodium (Synthroid) 50 mcg PO 0600 [facility] Last Admin: 10/17/18 05:45 Dose: 50 mcg Metoprolol Tartrate (Lopressor) 25 mg NG BID [facility] Last Admin: 10/17/18 09:18 Dose: 25 mg Mupirocin (Bactroban 2% Nasal) 0.25 gm HILLARY BID [facility] Last Admin: 10/17/18 09:17 Dose: 0.25 gm Pantoprazole Sodium (Protonix Susp) 40 mg PO 0600 [facility] Last Admin: 10/17/18 05:45 Dose: 40 mg Rosuvastatin Calcium (Crestor) 10 mg PO HS [facility] Last Admin: 10/16/18 22:30 Dose: 10 mg - Labs Labs: 10/17/18 05:47 10/17/18 05:47 PT 13.9 SECONDS (9.7-12.2) H 10/06/18 21:04 INR 1.3 10/06/18 21:04 APTT 45 SECONDS (21-34) H D 10/06/18 21:04
--- NOTE | 2018-10-17 15:33 | CP.PCM.PN ---
<Av Colby - Last Filed: 10/17/18 17:14> Subjective - Date & Time of Evaluation Date of Evaluation: 10/17/18 Time of Evaluation: 15:33 - Subjective Subjective: Cardiology Service: Dr. Wagoner's Service Patient seen and examined at bedside. Per nursing no acute events occurred overnight. ROS unobtainable due to patient's current clinical condition. Patient remains intubated and sedated. Objective - Vital Signs/Intake and Output Vital Signs (last 24 hours): Temp Pulse Resp BP Pulse Ox 99.4 F 63 18 153/60 H 100 10/17/18 12:00 10/17/18 15:17 10/17/18 15:17 10/17/18 15:25 10/17/18 15:17 Intake and Output: 10/17/18 10/17/18 06:59 18:59 Intake Total 1089.6 179.3 Balance 1089.6 179.3 - Medications Medications: Current Medications Acetaminophen (Tylenol 325mg Tab) 650 mg PO Q6 PRN PRN Reason: pain+fever Last Admin: 10/09/18 09:59 Dose: 650 mg Albuterol/Ipratropium (Duoneb 3 Mg/0.5 Mg (3 Ml) Ud) 3 ml INH RQ6 [facility] Last Admin: 10/17/18 13:54 Dose: 3 ml Aspirin (Aspirin Chewable) 81 mg PO DAILY [facility] Last Admin: 10/17/18 09:17 Dose: 81 mg Epoetin Dedrick (Procrit) 10,000 unit IV MWF [facility] Heparin Sodium (Porcine) (Heparin) 5,000 units SC Q12 [facility] Last Admin: 10/17/18 09:32 Dose: Not Given Hydralazine HCl (Apresoline) 50 mg PO Q8 [facility] Last Admin: 10/17/18 15:00 Dose: Not Given Hydrocortisone (Cortef) 10 mg PO DAILY [facility] Last Admin: 10/17/18 09:19 Dose: 10 mg Dexmedetomidine HCl 200 mcg/ (Sodium Chloride) 50 mls @ 4.38 mls/hr IV TITR PRN; Protocol PRN Reason: Agitation Last Admin: 10/17/18 10:00 Dose: 0.35 mcg/kg/hr, 7.66 mls/hr Ferric Sodium Gluconate Complex 125 mg/ Sodium Chloride 110 mls @ 110 mls/hr IVPB Q24H [facility] Stop: 10/23/18 11:31 Last Admin: 10/17/18 12:00 Dose: 110 mls/hr Vancomycin HCl 1 gm/ Sodium (Chloride) 250 mls @ 166.7 mls/hr IVPB MWF [facility]; Protocol Last Admin: 10/17/18 08:00 Dose: 166.7 mls/hr Cefepime HCl 1 gm/ Dextrose 50 mls @ 100 mls/hr IVPB DAILY [facility]; Protocol Last Admin: 10/17/18 09:20 Dose: 100 mls/hr Insulin Aspart (Novolog) 0 unit SC Q4H [facility]; Protocol Last Admin: 10/17/18 15:00 Dose: Not Given Insulin Detemir (Levemir) 30 unit SC Q12 [facility] Last Admin: 10/17/18 09:18 Dose: 30 u Isosorbide Dinitrate (Isordil) 20 mg PO BID [facility] Last Admin: 10/17/18 09:17 Dose: 20 mg Levetiracetam (Keppra) 750 mg PO BID [facility] Last Admin: 10/17/18 09:17 Dose: 750 mg Levothyroxine Sodium (Synthroid) 50 mcg PO 0600 [facility] Last Admin: 10/17/18 05:45 Dose: 50 mcg Metoprolol Tartrate (Lopressor) 25 mg NG BID [facility] Last Admin: 10/17/18 09:18 Dose: 25 mg Mupirocin (Bactroban 2% Nasal) 0.25 gm HILLARY BID [facility] Last Admin: 10/17/18 09:17 Dose: 0.25 gm Pantoprazole Sodium (Protonix Susp) 40 mg PO 0600 [facility] Last Admin: 10/17/18 05:45 Dose: 40 mg Rosuvastatin Calcium (Crestor) 10 mg PO HS [facility] Last Admin: 10/16/18 22:30 Dose: 10 mg - Labs Labs: 10/17/18 05:47 10/17/18 05:47 PT 13.9 SECONDS (9.7-12.2) H 10/06/18 21:04 INR 1.3 10/06/18 21:04 APTT 45 SECONDS (21-34) H D 10/06/18 21:04 - Head Exam Head Exam: ATRAUMATIC, NORMAL INSPECTION - Eye Exam Eye Exam: EOMI, Normal appearance, PERRL Pupil Exam: NORMAL ACCOMODATION - ENT Exam ENT Exam: Mucous Membranes Moist, Normal Oropharynx Additional comments: Intubated - Neck Exam Neck Exam: Normal Inspection - Respiratory Exam Respiratory Exam: Clear to Ausculation Bilateral, NORMAL BREATHING PATTERN. absent: Respiratory Distress - Cardiovascular Exam Cardiovascular Exam: REGULAR RHYTHM, +S1, +S2 - GI/Abdominal Exam GI & Abdominal Exam: Soft, Normal Bowel Sounds. absent: Hyperactive Bowel Sounds - Extremities Exam Extremities Exam: Full ROM. absent: Joint Swelling, Pedal Edema - Back Exam Back Exam: NORMAL INSPECTION. absent: CVA tenderness (R), paraspinal tenderness - Neurological Exam Neurological Exam: Alert, Awake, Oriented x3 - Psychiatric Exam Psychiatric exam: Normal Affect, Normal Mood - Skin Skin Exam: Dry, Intact Assessment and Plan - Assessment and Plan (Free Text) Assessment: 72 year old female with past medical history of CAD, CHF, HTN, HLD, pituitary adenoma, is being seen s/p respiratory arrest during AV fistula placement surgery. Plan: Respiratory failure - Currently intubated and sedated. 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 Wagoner. Av Colby, PGY-2 <Jimmy Wagoner - Last Filed: 10/17/18 21:42> Objective - Vital Signs/Intake and Output Vital Signs (last 24 hours): Temp Pulse Resp BP Pulse Ox 97.3 F L 61 16 128/53 L 100 10/17/18 20:00 10/17/18 20:17 10/17/18 20:17 10/17/18 20:17 10/17/18 20:17 Intake and Output: 10/17/18 10/18/18 18:59 06:59 Intake Total 252.4 28.4 Output Total 1999 Balance -1747.6 28.4 - Medications Medications: Current Medications Acetaminophen (Tylenol 325mg Tab) 650 mg PO Q6 PRN PRN Reason: pain+fever Last Admin: 10/09/18 09:59 Dose: 650 mg Albuterol/Ipratropium (Duoneb 3 Mg/0.5 Mg (3 Ml) Ud) 3 ml INH RQ6 [facility] Last Admin: 10/17/18 19:47 Dose: 3 ml Aspirin (Aspirin Chewable) 81 mg PO DAILY [facility] Last Admin: 10/17/18 09:17 Dose: 81 mg Epoetin Dedrick (Procrit) 10,000 unit IV MWF [facility] Last Admin: 10/17/18 16:09 Dose: 10,000 unit Heparin Sodium (Porcine) (Heparin) 5,000 units SC Q12 [facility] Last Admin: 10/17/18 09:32 Dose: Not Given Hydralazine HCl (Apresoline) 50 mg PO Q8 [facility] Last Admin: 10/17/18 15:00 Dose: Not Given Hydrocortisone (Cortef) 10 mg PO DAILY [facility] Last Admin: 10/17/18 09:19 Dose: 10 mg Dexmedetomidine HCl 200 mcg/ (Sodium Chloride) 50 mls @ 4.38 mls/hr IV TITR PRN; Protocol PRN Reason: Agitation Last Titration: 10/17/18 19:00 Dose: 0.4 mcg/kg/hr, 8.75 mls/hr Ferric Sodium Gluconate Complex 125 mg/ Sodium Chloride 110 mls @ 110 mls/hr IVPB Q24H [facility] Stop: 10/23/18 11:31 Last Admin: 10/17/18 12:00 Dose: 110 mls/hr Vancomycin HCl 1 gm/ Sodium (Chloride) 250 mls @ 166.7 mls/hr IVPB MWF [facility]; Protocol Last Admin: 10/17/18 08:00 Dose: 166.7 mls/hr Cefepime HCl 1 gm/ Dextrose 50 mls @ 100 mls/hr IVPB DAILY [facility]; Protocol Last Admin: 10/17/18 09:20 Dose: 100 mls/hr Insulin Aspart (Novolog) 0 unit SC Q4H [facility]; Protocol Last Admin: 10/17/18 18:02 Dose: Not Given Insulin Detemir (Levemir) 30 unit SC Q12 [facility] Last Admin: 10/17/18 09:18 Dose: 30 u Isosorbide Dinitrate (Isordil) 20 mg PO BID [facility] Last Admin: 10/17/18 18:01 Dose: 20 mg Levetiracetam (Keppra) 750 mg PO BID [facility] Last Admin: 10/17/18 18:01 Dose: 750 mg Levothyroxine Sodium (Synthroid) 50 mcg PO 0600 [facility] Last Admin: 10/17/18 05:45 Dose: 50 mcg Metoprolol Tartrate (Lopressor) 25 mg NG BID [facility] Last Admin: 10/17/18 18:01 Dose: Not Given Mupirocin (Bactroban 2% Nasal) 0.25 gm [place]ILLARY BID [facility] Last Admin: 10/17/18 18:01 Dose: 0.25 gm Pantoprazole Sodium (Protonix Susp) 40 mg PO 0600 [facility] Last Admin: 10/17/18 05:45 Dose: 40 mg Rosuvastatin Calcium (Crestor) 10 mg PO HS [facility] Last Admin: 10/16/18 22:30 Dose: 10 mg - Labs Labs: 10/17/18 05:47 10/17/18 05:47 PT 13.9 SECONDS (9.7-12.2) H 10/06/18 21:04 INR 1.3 10/06/18 21:04 APTT 45 SECONDS (21-34) H D 10/06/18 21:04 Assessment and Plan - Assessment and Plan (Free Text) Assessment: Patient examined and evaluated personally by me. Plan of care d/w the medical van driver and as documented
[2018-10-17] MEDS: Epoetin Alfa 10,000 unit/ml Dialysis IV SCH (16:09)
--- NOTE | 2018-10-17 19:39 | PN ---
DATE: 10/17/2018 SUBJECTIVE: The patient remains anoxic. She is having involuntary movements. She is not focusing and remains anoxic. OBJECTIVE: VITAL SIGNS: Her temperature is 99.7, blood pressure 115/39, respirations are on the ventilator. GENERAL: She is having dialysis at this time, unresponsive and comatose. NECK: Supple. LUNGS: Clear. HEART: S1, S2 is regular. ABDOMEN: Soft, nontender. EXTREMITIES: She is hitting here and there. Lower extremities have no edema. LABORATORY DATA: White count is 16.4, hemoglobin 9.1, hematocrit 33. At this time, she had sputum and Citrobacter and MRSA and she is on contact precaution. She is on vancomycin and Maxipime; today is day two of Maxipime, will continue that and after dialysis she would be getting vancomycin also. IMPRESSION: A she has respiratory failure, anoxic encephalopathy, end-stage renal disease, and congestive heart failure. Cultures remain negative except for tracheal aspirate which has methicillin-resistant Staphylococcus aureus and Citrobacter. She remains vent dependent at this time, to continue present antibiotics. Sara Barrios MD
[2018-10-18] MEDS: Dexmedetomidine Hydrochloride 200 MCG in Sodium Chloride 0.9% 48 ML IV PRN ×2 (01:00→08:45)
[2018-10-18] MEDS: Albuterol-Ipratrop 3 mg / 0.5 (3 ml) UD INH SCH ×4 (01:04→20:22)
[2018-10-18] MEDS: (Novolog) Insulin Aspart, Recombinant 100 u/ml 10 ml vial SC SCH ×5 (02:00→18:55)
[2018-10-18] MEDS: Levothyroxine 50 MCG TAB PO SCH (05:37)
[2018-10-18] MEDS: Pantoprazole 40 mg Susp UD PO SCH (05:37)
[2018-10-18 05:49] LABS: ARTERIAL BLOOD GAS HCO3 28.7 mmol/L (21-28); ARTERIAL BLOOD GAS HEMOGLOBIN 9.1 g/dL (11.7-17.4); ARTERIAL BLOOD GAS O2 SAT 98.4 % (95-98); ARTERIAL BLOOD GAS PCO2 41 mm/Hg (35-45); ARTERIAL BLOOD GAS PH 7.46 (7.35-7.45); ARTERIAL BLOOD GAS PO2 90 mm/Hg (80-100); ARTERIAL BLOOD GAS TCO2 30.5 mmol/L (22-28)
[2018-10-18 06:15] LABS: HEMOGLOBIN 9.4 g/dL (11.0-16.0); MEAN CELL VOLUME 89.1 fL (81.0-99.0); MEAN CORPUSCULAR HEMOGLOBIN 27.8 pg (27.0-31.0); MEAN CORPUSCULAR HGB CONC 31.2 g/dL (33.0-37.0); MEAN PLATELET VOLUME 9.4 fL (7.2-11.7); RBC 3.39 Mil/uL (3.80-5.20); RED CELL DISTRIBUTION WIDTH 16.2 % (11.5-14.5); WHITE BLOOD COUNT 15.8 K/uL (4.8-10.8)
[2018-10-18 06:24] LABS: INR 1.2; PROTHROMBIN TIME 13.4 SECONDS (9.7-12.2)
[2018-10-18 06:36] LABS: CALCIUM 7.8 mg/dl (8.6-10.4)
--- NOTE | 2018-10-18 08:51 | CP.PCM.PN ---
Subjective - Date & Time of Evaluation Date of Evaluation: 10/18/18 Time of Evaluation: 08:49 - Subjective Subjective: s/p dialysis 10/17 UF 2000ml remains agitated on vent awaiting trach- possibly today Considering PEG- has not had any significant nutrition recently Hg better with EPO, Fe Objective - Vital Signs/Intake and Output Vital Signs (last 24 hours): Temp Pulse Resp BP Pulse Ox 98.9 F 68 14 120/46 L 100 10/18/18 08:00 10/18/18 07:25 10/18/18 07:25 10/18/18 07:25 10/18/18 08:00 Intake and Output: 10/18/18 10/18/18 06:59 18:59 Intake Total 652.5 Balance 652.5 - Medications Medications: Current Medications Acetaminophen (Tylenol 325mg Tab) 650 mg PO Q6 PRN PRN Reason: pain+fever Last Admin: 10/09/18 09:59 Dose: 650 mg Albuterol/Ipratropium (Duoneb 3 Mg/0.5 Mg (3 Ml) Ud) 3 ml INH RQ6 [facility] Last Admin: 10/18/18 08:13 Dose: 3 ml Aspirin (Aspirin Chewable) 81 mg PO DAILY [facility] Last Admin: 10/17/18 09:17 Dose: 81 mg Epoetin Dedrick (Procrit) 10,000 unit IV MWF [facility] Last Admin: 10/17/18 16:09 Dose: 10,000 unit Heparin Sodium (Porcine) (Heparin) 5,000 units SC Q12 [facility] Last Admin: 10/17/18 09:32 Dose: Not Given Hydralazine HCl (Apresoline) 50 mg PO Q8 [facility] Last Admin: 10/18/18 05:37 Dose: 50 mg Hydrocortisone (Cortef) 10 mg PO DAILY [facility] Last Admin: 10/17/18 09:19 Dose: 10 mg Dexmedetomidine HCl 200 mcg/ (Sodium Chloride) 50 mls @ 4.38 mls/hr IV TITR PRN; Protocol PRN Reason: Agitation Last Admin: 10/18/18 01:00 Dose: 0.3 mcg/kg/hr, 6.57 mls/hr Ferric Sodium Gluconate Complex 125 mg/ Sodium Chloride 110 mls @ 110 mls/hr IVPB Q24H [facility] Stop: 10/23/18 11:31 Last Admin: 10/17/18 12:00 Dose: 110 mls/hr Vancomycin HCl 1 gm/ Sodium (Chloride) 250 mls @ 166.7 mls/hr IVPB MWF [facility]; Protocol Last Admin: 10/17/18 08:00 Dose: 166.7 mls/hr Cefepime HCl 1 gm/ Dextrose 50 mls @ 100 mls/hr IVPB DAILY [facility]; Protocol Last Admin: 10/17/18 09:20 Dose: 100 mls/hr Insulin Aspart (Novolog) 0 unit SC Q4H [facility]; Protocol Last Admin: 10/18/18 06:20 Dose: Not Given Insulin Detemir (Levemir) 30 unit SC Q12 [facility] Last Admin: 10/17/18 22:48 Dose: Not Given Isosorbide Dinitrate (Isordil) 20 mg PO BID [facility] Last Admin: 10/17/18 18:01 Dose: 20 mg Levetiracetam (Keppra) 750 mg PO BID [facility] Last Admin: 10/17/18 18:01 Dose: 750 mg Levothyroxine Sodium (Synthroid) 50 mcg PO 0600 [facility] Last Admin: 10/18/18 05:37 Dose: 50 mcg Metoprolol Tartrate (Lopressor) 25 mg NG BID [facility] Last Admin: 10/17/18 18:01 Dose: Not Given Mupirocin (Bactroban 2% Nasal) 0.25 gm HILLARY BID [facility] Last Admin: 10/17/18 18:01 Dose: 0.25 gm Pantoprazole Sodium (Protonix Susp) 40 mg PO 0600 [facility] Last Admin: 10/18/18 05:37 Dose: 40 mg Rosuvastatin Calcium (Crestor) 10 mg PO [facility] Last Admin: 10/17/18 22:45 Dose: 10 mg - Labs Labs: 10/18/18 06:08 10/18/18 06:08 PT 13.4 SECONDS (9.7-12.2) H 10/18/18 06:08 INR 1.2 10/18/18 06:08 APTT 39 SECONDS (21-34) H 10/18/18 06:08 - Constitutional Appears: In Acute Distress, Chronically Ill - Head Exam Head Exam: ATRAUMATIC, NORMAL INSPECTION - Eye Exam Eye Exam: EOMI, Normal appearance - Neck Exam Neck Exam: Normal Inspection. absent: Tenderness - Respiratory Exam Respiratory Exam: Clear to Ausculation Bilateral, Respiratory Distress - Cardiovascular Exam Cardiovascular Exam: REGULAR RHYTHM, +S1 - GI/Abdominal Exam GI & Abdominal Exam: Soft. absent: Tenderness - Extremities Exam Extremities Exam: Normal Inspection. absent: Tenderness - Neurological Exam Neurological Exam: Altered, Awake - Skin Skin Exam: Dry, Warm Assessment and Plan (1) ESRD (end stage renal disease) Status: Acute (2) Diabetic nephropathy associated with type 2 diabetes mellitus Status: Acute (3) CAD (coronary artery disease) Status: Acute (4) HTN (hypertension) Status: Acute - Assessment and Plan (Free Text) Plan: Await trach Consider PEG Dialysis MWF recheck phos, PTH Eventual AV access?
--- NOTE | 2018-10-18 08:55 | RAD ---
Date of service: 10/18/2018 HISTORY: pt intubated COMPARISON: 10/17/2018 weeks FINDINGS: LUNGS: No active pulmonary disease. PLEURA: No significant pleural effusion identified, no pneumothorax apparent. CARDIOVASCULAR: No aortic atherosclerotic calcification present. Normal cardiac size. No congestive change. ET tube and NG tube unchanged grossly in position. Tunneled right central venous dialysis catheter noted. OSSEOUS STRUCTURES: No significant abnormalities. VISUALIZED UPPER ABDOMEN: Normal. OTHER FINDINGS: None. IMPRESSION: No active disease.
[2018-10-18] MEDS: Mupirocin 2% Ointment (NASAL) NAS SCH ×2 (09:11→18:20)
[2018-10-18] MEDS: levETIRAcetam 100 mg/ml (5ml) Oral Syringe PO SCH ×3 (09:20→18:20)
[2018-10-18] MEDS: Insulin Detemir 100 units/ml Vial (Levemir) SC SCH ×2 (09:21→22:01)
[2018-10-18] MEDS: Ferric Sodium Gluconat Complex 125 MG in Sodium Chloride 0.9% 100 ML IVPB SCH (11:00)
--- NOTE | 2018-10-18 12:51 | CP.CCUPN ---
<Dyllan Patton - Last Filed: 10/18/18 12:48> CCU Subjective - Physician Review Subjective (Free Text): PGY-1 ICU progress note for Dr Anupama Swartz Patient seen and examined at bedside. Patient is awake and opening eyes. Patient responds to name and nods indicating she can hear. does not follow command. Continue to move extremities. On ventilator. Unable to obtain ROS due to patient's mental status. 10/18/18 13:04 Critical Care Time Spent (in minutes): 35 CCU Objective - Vital Signs / Intake & Output Vital Signs (Last 4 hours): Vital Signs Temp Pulse Resp BP Pulse Ox 10/18/18 12:00 99.1 F 67 14 99 10/18/18 11:54 68 15 137/44 L 96 10/18/18 11:24 66 13 128/51 L 97 10/18/18 11:00 65 13 98 10/18/18 10:55 65 12 123/30 L 98 10/18/18 10:25 66 13 110/36 L 100 10/18/18 10:00 60 14 98 10/18/18 09:54 62 11 L 97/34 L 98 10/18/18 09:26 67 16 87/39 L 99 10/18/18 09:10 130/53 L 10/18/18 09:00 65 14 97 10/18/18 08:59 67 15 130/53 L 97 10/18/18 08:55 68 14 71/52 L 95 Intake and Output (Last 8hrs): Intake & Output 10/17/18 10/18/18 10/18/18 22:59 06:59 14:59 Intake Total 445.6 287.7 101.0 Output Total 1999 Balance -1554.4 287.7 101.0 Weight 194 lb 0.108 oz Intake: IV 90 10 50 Intake, IV Amount 65.6 52.7 51.0 Right Upper Arm Midline 65.6 52.7 51.0 Tube Feeding 240 120 0 Other 50 105 Output: Other 1999 Other: # Voids Urine, Voided 0 0 # Bowel Movements 0 1 - Physical Exam Head: Positive for: Atraumatic, Normocephalic Extroacular Muscles: Positive for: EOMI (dropping eyelid left) Conjunctiva: Positive for: Normal Mouth: Positive for: Dry, Other (intubated ETT in place) Respiratory/Chest: Positive for: Decreased Breath Sounds, Other (intubated ). Negative for: Respiratory Distress, Accessory Muscle Use, Tachypneic Cardiovascular: Positive for: Regular Rate and Rhythm, Normal S1, S2 Abdomen: Positive for: Normal Bowel Sounds. Negative for: Tenderness, Distention, Rebound, Guarding Upper Extremity: Positive for: Normal Inspection. Negative for: Cyanosis, Edema Lower Extremity: Positive for: Normal Inspection. Negative for: Edema Neurological: Negative for: GCS=15, CN II-XII Intact, Speech Normal Skin: Positive for: Warm, Dry, Normal Color, Other (permacath in place, right femoral TLC) Psychiatric: Negative for: Alert, Oriented x 3, Normal Insight, Normal Concentration - Medications Active Medications: Active Medications Generic Name Dose Route Start Last Admin Trade Name Freq PRN Reason Stop Dose Admin Acetaminophen 650 mg 10/08/18 10:08 10/09/18 09:59 Tylenol 325mg Tab PO 650 mg Q6 PRN Administration pain+fever Albuterol/Ipratropium 3 ml 10/12/18 14:00 10/18/18 08:13 Duoneb 3 Mg/0.5 Mg (3 Ml) Ud INH 3 ml RQ6 JOCELYN Administration Aspirin 81 mg 10/08/18 10:00 10/18/18 09:11 Aspirin Chewable PO Not Given DAILY JOCELYN Epoetin Dedrick 10,000 unit 10/17/18 09:00 10/17/18 16:09 Procrit IV 10,000 unit MWF JOCELYN Administration Heparin Sodium (Porcine) 5,000 units 10/15/18 10:00 10/17/18 09:32 Heparin SC Not Given Q12 JOCELYN Hydralazine HCl 50 mg 10/16/18 10:45 10/18/18 05:37 Apresoline PO 50 mg Q8 JOCELYN Administration Hydrocortisone 10 mg 10/15/18 10:00 10/18/18 09:11 Cortef PO 10 mg DAILY JOCELYN Administration Dexmedetomidine HCl 200 mcg/ 50 mls @ 4.38 mls/hr 10/12/18 09:02 10/18/18 08:45 Sodium Chloride IV 0.3 mcg/kg/hr TITR PRN 6.57 mls/hr Agitation Administration Protocol 0.2 MCG/KG/HR Ferric Sodium Gluconate 110 mls @ 110 mls/hr 10/15/18 11:30 10/18/18 11:00 Complex 125 mg/ Sodium IVPB 10/23/18 11:31 110 mls/hr Chloride Q24H JOCELYN Administration Vancomycin HCl 1 gm/ Sodium 250 mls @ 166.7 mls/hr 10/17/18 09:00 10/17/18 08:00 Chloride IVPB 166.7 mls/hr MWF JOCELYN Administration Protocol Cefepime HCl 1 gm/ Dextrose 50 mls @ 100 mls/hr 10/16/18 14:00 10/18/18 09:00 IVPB 100 mls/hr DAILY JOCELYN Administration Protocol Insulin Aspart 0 unit 10/14/18 22:00 10/18/18 11:00 Novolog SC Not Given Q4H [facility] Protocol Insulin Detemir 30 unit 10/14/18 10:00 10/18/18 09:21 Levemir SC Not Given Q12 JOCELYN Isosorbide Dinitrate 20 mg 10/13/18 10:00 10/18/18 09:11 Isordil PO 20 mg BID JOCELYN Administration Levetiracetam 750 mg 10/08/18 10:00 10/18/18 09:20 Keppra PO 750 mg BID JOCELYN Administration Levothyroxine Sodium 50 mcg 09/29/18 08:00 10/18/18 05:37 Synthroid PO 50 mcg 0600 JOCELYN Administration Metoprolol Tartrate 25 mg 10/15/18 22:00 10/18/18 09:10 Lopressor NG 25 mg BID JOCELYN Administration Mupirocin 0.25 gm 10/16/18 10:00 10/18/18 09:11 Bactroban 2% Nasal HILLARY 0.25 gm BID JOCELYN Administration Pantoprazole Sodium 40 mg 10/09/18 06:00 10/18/18 05:37 Protonix Susp PO 40 mg 0600 JOCELYN Administration Rosuvastatin Calcium 10 mg 09/30/18 22:00 10/17/18 22:45 Crestor PO 10 mg HS JOCELYN Administration - Patient Studies Lab Studies: Microbiology Studies 10/16/18 11:45 Blood Culture - Preliminary Blood-Venous NO GROWTH AFTER 48 HOURS 10/16/18 12:10 Blood Culture - Preliminary Blood-Venous NO GROWTH AFTER 48 HOURS Lab Studies 10/18/18 10/18/18 10/18/18 Range/Units 10:12 06:10 06:08 WBC (4.8-10.8) K/uL RBC (3.80-5.20) Mil/uL Hgb (11.0-16.0) g/dL Hct (34.0-47.0) % MCV (81.0-99.0) fL MCH (27.0-31.0) pg MCHC (33.0-37.0) g/dL RDW (11.5-14.5) % Plt Count (130-400) K/uL MPV (7.2-11.7) fL PT 13.4 H (9.7-12.2) SECONDS INR 1.2 APTT 39 H (21-34) SECONDS Puncture Site pCO2 (35-45) mm/Hg pO2 (80-100) mm/Hg HCO3 (21-28) mmol/L ABG pH (7.35-7.45) ABG Total CO2 (22-28) mmol/L ABG O2 Saturation (95-98) % ABG Base Excess (-2.0-3.0) mmol/L ABG Hemoglobin (11.7-17.4) g/dL ABG Carboxyhemoglobin (0.5-1.5) % POC ABG HHb (Measured) (0.0-5.0) % ABG Methemoglobin (0.0-3.0) % Jimenez Test A-a O2 Difference mm/Hg Respiratory Index Hgb O2 Saturation (95.0-98.0) % Vent Mode Mechanical Rate FiO2 % Tidal Volume PEEP Sodium (132-148) mmol/L Potassium (3.6-5.2) mmol/L Chloride (98-107) mmol/L Carbon Dioxide (22-30) mmol/L Anion Gap (10-20) BUN (7-17) mg/dL Creatinine (0.7-1.2) mg/dL Est GFR ( Amer) Est GFR (Non-Af Amer) POC Glucose (mg/dL) 199 H 150 H (65-110) mg/dL Random Glucose (65-105) mg/dL Calcium (8.6-10.4) mg/dl 10/18/18 10/18/18 10/18/18 Range/Units 06:08 06:08 05:36 WBC 15.8 H (4.8-10.8) K/uL RBC 3.39 L (3.80-5.20) Mil/uL Hgb 9.4 L (11.0-16.0) g/dL Hct 30.2 L (34.0-47.0) % MCV 89.1 (81.0-99.0) fL MCH 27.8 (27.0-31.0) pg MCHC 31.2 L (33.0-37.0) g/dL RDW 16.2 H (11.5-14.5) % Plt Count 282 (130-400) K/uL MPV 9.4 (7.2-11.7) fL PT (9.7-12.2) SECONDS INR APTT (21-34) SECONDS Puncture Site L brac pCO2 41 (35-45) mm/Hg pO2 90 (80-100) mm/Hg HCO3 28.7 H (21-28) mmol/L ABG pH 7.46 H (7.35-7.45) ABG Total CO2 30.5 H (22-28) mmol/L ABG O2 Saturation 98.4 H (95-98) % ABG Base Excess 4.9 H (-2.0-3.0) mmol/L ABG Hemoglobin 9.1 L (11.7-17.4) g/dL ABG Carboxyhemoglobin 2.1 H (0.5-1.5) % POC ABG HHb (Measured) 1.5 (0.0-5.0) % ABG Methemoglobin 1.2 (0.0-3.0) % Jimenez Test Na A-a O2 Difference 108.0 mm/Hg Respiratory Index 1.2 Hgb O2 Saturation 95.2 (95.0-98.0) % Vent Mode Prvc Mechanical Rate 14 FiO2 35.0 % Tidal Volume 450 PEEP 5 Sodium 135 (132-148) mmol/L Potassium 4.3 (3.6-5.2) mmol/L Chloride 96 L (98-107) mmol/L Carbon Dioxide 31 H (22-30) mmol/L Anion Gap 12 (10-20) BUN 34 H (7-17) mg/dL Creatinine 2.8 H (0.7-1.2) mg/dL Est GFR ( Amer) 20 Est GFR (Non-Af Amer) 17 POC Glucose (mg/dL) (65-110) mg/dL Random Glucose 124 H (65-105) mg/dL Calcium 7.8 L (8.6-10.4) mg/dl 10/18/18 10/17/18 10/17/18 Range/Units 01:52 22:23 17:14 WBC (4.8-10.8) K/uL RBC (3.80-5.20) Mil/uL Hgb (11.0-16.0) g/dL Hct (34.0-47.0) % MCV (81.0-99.0) fL MCH (27.0-31.0) pg MCHC (33.0-37.0) g/dL RDW (11.5-14.5) % Plt Count (130-400) K/uL MPV (7.2-11.7) fL PT (9.7-12.2) SECONDS INR APTT (21-34) SECONDS Puncture Site pCO2 (35-45) mm/Hg pO2 (80-100) mm/Hg HCO3 (21-28) mmol/L ABG pH (7.35-7.45) ABG Total CO2 (22-28) mmol/L ABG O2 Saturation (95-98) % ABG Base Excess (-2.0-3.0) mmol/L ABG Hemoglobin (11.7-17.4) g/dL ABG Carboxyhemoglobin (0.5-1.5) % POC ABG HHb (Measured) (0.0-5.0) % ABG Methemoglobin (0.0-3.0) % Jimenez Test A-a O2 Difference mm/Hg Respiratory Index Hgb O2 Saturation (95.0-98.0) % Vent Mode Mechanical Rate FiO2 % Tidal Volume PEEP Sodium (132-148) mmol/L Potassium (3.6-5.2) mmol/L Chloride (98-107) mmol/L Carbon Dioxide (22-30) mmol/L Anion Gap (10-20) BUN (7-17) mg/dL Creatinine (0.7-1.2) mg/dL Est GFR ( Amer) Est GFR (Non-Af Amer) POC Glucose (mg/dL) 106 119 H 87 (65-110) mg/dL Random Glucose (65-105) mg/dL Calcium (8.6-10.4) mg/dl 10/17/18 Range/Units 14:02 WBC (4.8-10.8) K/uL RBC (3.80-5.20) Mil/uL Hgb (11.0-16.0) g/dL Hct (34.0-47.0) % MCV (81.0-99.0) fL MCH (27.0-31.0) pg MCHC (33.0-37.0) g/dL RDW (11.5-14.5) % Plt Count (130-400) K/uL MPV (7.2-11.7) fL PT (9.7-12.2) SECONDS INR APTT (21-34) SECONDS Puncture Site pCO2 (35-45) mm/Hg pO2 (80-100) mm/Hg HCO3 (21-28) mmol/L ABG pH (7.35-7.45) ABG Total CO2 (22-28) mmol/L ABG O2 Saturation (95-98) % ABG Base Excess (-2.0-3.0) mmol/L ABG Hemoglobin (11.7-17.4) g/dL ABG Carboxyhemoglobin (0.5-1.5) % POC ABG HHb (Measured) (0.0-5.0) % ABG Methemoglobin (0.0-3.0) % Jimenez Test A-a O2 Difference mm/Hg Respiratory Index Hgb O2 Saturation (95.0-98.0) % Vent Mode Mechanical Rate FiO2 % Tidal Volume PEEP Sodium (132-148) mmol/L Potassium (3.6-5.2) mmol/L Chloride (98-107) mmol/L Carbon Dioxide (22-30) mmol/L Anion Gap (10-20) BUN (7-17) mg/dL Creatinine (0.7-1.2) mg/dL Est GFR ( Amer) Est GFR (Non-Af Amer) POC Glucose (mg/dL) 89 (65-110) mg/dL Random Glucose (65-105) mg/dL Calcium (8.6-10.4) mg/dl Laboratory Results - last 24 hr 10/17/18 10/17/18 10/17/18 14:02 17:14 22:23 WBC RBC Hgb Hct MCV MCH MCHC RDW Plt Count MPV PT INR APTT Puncture Site pCO2 pO2 HCO3 ABG pH ABG Total CO2 ABG O2 Saturation ABG Base Excess ABG Hemoglobin ABG Carboxyhemoglobin POC ABG HHb (Measured) ABG Methemoglobin Jimenez Test A-a O2 Difference Respiratory Index Hgb O2 Saturation Vent Mode Mechanical Rate FiO2 Tidal Volume PEEP Sodium Potassium Chloride Carbon Dioxide Anion Gap BUN Creatinine Est GFR ( Amer) Est GFR (Non-Af Amer) POC Glucose (mg/dL) 89 87 119 H Random Glucose Calcium 10/18/18 10/18/18 10/18/18 01:52 05:36 06:08 WBC 15.8 H RBC 3.39 L Hgb 9.4 L Hct 30.2 L MCV 89.1 MCH 27.8 MCHC 31.2 L RDW 16.2 H Plt Count 282 MPV 9.4 PT INR APTT Puncture Site L brac pCO2 41 pO2 90 HCO3 28.7 H ABG pH 7.46 H ABG Total CO2 30.5 H ABG O2 Saturation 98.4 H ABG Base Excess 4.9 H ABG Hemoglobin 9.1 L ABG Carboxyhemoglobin 2.1 H POC ABG HHb (Measured) 1.5 ABG Methemoglobin 1.2 Jimenez Test Na A-a O2 Difference 108.0 Respiratory Index 1.2 Hgb O2 Saturation 95.2 Vent Mode Prvc Mechanical Rate 14 FiO2 35.0 Tidal Volume 450 PEEP 5 Sodium Potassium Chloride Carbon Dioxide Anion Gap BUN Creatinine Est GFR ( Amer) Est GFR (Non-Af Amer) POC Glucose (mg/dL) 106 Random Glucose Calcium 10/18/18 10/18/18 10/18/18 06:08 06:08 06:10 WBC RBC Hgb Hct MCV MCH MCHC RDW Plt Count MPV PT 13.4 H INR 1.2 APTT 39 H Puncture Site pCO2 pO2 HCO3 ABG pH ABG Total CO2 ABG O2 Saturation ABG Base Excess ABG Hemoglobin ABG Carboxyhemoglobin POC ABG HHb (Measured) ABG Methemoglobin Jimenez Test A-a O2 Difference Respiratory Index Hgb O2 Saturation Vent Mode Mechanical Rate FiO2 Tidal Volume PEEP Sodium 135 Potassium 4.3 Chloride 96 L Carbon Dioxide 31 H Anion Gap 12 BUN 34 H Creatinine 2.8 H Est GFR ( Amer) 20 Est GFR (Non-Af Amer) 17 POC Glucose (mg/dL) 150 H Random Glucose 124 H Calcium 7.8 L 10/18/18 10:12 WBC RBC Hgb Hct MCV MCH MCHC RDW Plt Count MPV PT INR APTT Puncture Site pCO2 pO2 HCO3 ABG pH ABG Total CO2 ABG O2 Saturation ABG Base Excess ABG Hemoglobin ABG Carboxyhemoglobin POC ABG HHb (Measured) ABG Methemoglobin Jimenez Test A-a O2 Difference Respiratory Index Hgb O2 Saturation Vent Mode Mechanical Rate FiO2 Tidal Volume PEEP Sodium Potassium Chloride Carbon Dioxide Anion Gap BUN Creatinine Est GFR ( Amer) Est GFR (Non-Af Amer) POC Glucose (mg/dL) 199 H Random Glucose Calcium Radiology Impressions: Radiology Impressions Chest X-Ray 10/18/18 07:00 IMPRESSION: No active disease. Fingerstick Blood Sugar Results: 199 Critical Care Progress Note - Vent Settings MODE:: PRVC TIDAL VOLUME:: 450 RESP RATE:: 14 FIO2:: 40 PEEP:: 5 Assessment/Plan - Assessment and Plan (Free Text) Plan: Patient is a 72 yo female w/ PMH of CKD5, CHF, CAD s/p stents, pituiatry adenoma s/p resection, DM2 admitted for respiratory and cardiac arrest s/p permacath placement and AVF on 10-05. s/p permacath on 10-11-18; possible AMS due to anoxic brain injury, now on HD MWF planning for Tracheostomy to be done by Gen surgery and Peg tube by GI Neuro Intubated and Sedated continue Keppra CV Hydralazine 50mg PO Q8H Metoprolol 25mg NG BID Isordil 30 mg PO BID Crestor Aspirin s/p cardiac arrest; code freeze completed Dr Yost reconsulted Chest Xray portable repeated - f/u results Pulm Improved chest xray - official report pending Intubated; Vent settings as per ICU Tracheostomy today - Dr Blank - f/u recs Duoneb q6 hydrocortisone GI not feeding well with tube feedings eval for PEG tube placement GI - Dr Millard Protonix Heme EPO w/ Dialysis MWF Ferric sodium drip Renal ESRD- changed to MWF sessions EPO MWF Bumex 2mg 1 x permacath placed on 10-11 Dr Segundo Endo Levemir 30 SC Q12 Insulin regular SC Q4 Levothyroxine 50 PO daily Hydrocortisone 10 mg PO daily Q6 accuchecks ID +cx on 1-6 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 asp Cefepime Vanc with dialysis (MWF) Mupirocin 2% nasal Dr Barrios on case Bcx no growth after 48 hours DVT ppx: Heparin (held) GI ppx: Protonix Plan discussed with Dr Maxime Patton, PGY-1 - Date & Time Date: 10/18/18 Time: 08:00 <Corona Swartz - Last Filed: 10/18/18 15:48> CCU Objective - Vital Signs / Intake & Output Vital Signs (Last 4 hours): Vital Signs Temp Pulse Resp BP Pulse Ox 10/18/18 12:00 99.1 F 67 14 99 10/18/18 11:54 68 15 137/44 L 96 10/18/18 11:24 66 13 128/51 L 97 Intake and Output (Last 8hrs): Intake & Output 10/18/18 10/18/18 10/18/18 06:59 14:59 22:59 Intake Total 287.7 101.0 Balance 287.7 101.0 Weight 194 lb 0.108 oz Intake: IV 10 50 Intake, IV Amount 52.7 51.0 Right Upper Arm Midline 52.7 51.0 Tube Feeding 120 0 Other 105 Other: # Voids Urine, Voided 0 # Bowel Movements 1 - Medications Active Medications: Active Medications Generic Name Dose Route Start Last Admin Trade Name Freq PRN Reason Stop Dose Admin Acetaminophen 650 mg 10/08/18 10:08 10/09/18 09:59 Tylenol 325mg Tab PO 650 mg Q6 PRN Administration pain+fever Albuterol/Ipratropium 3 ml 10/12/18 14:00 10/18/18 13:30 Duoneb 3 Mg/0.5 Mg (3 Ml) Ud INH 3 ml RQ6 JOCELYN Administration Aspirin 81 mg 10/08/18 10:00 10/18/18 09:11 Aspirin Chewable PO Not Given DAILY JOCELYN Epoetin Dedrick 10,000 unit 10/17/18 09:00 10/17/18 16:09 Procrit IV 10,000 unit MWF JOCELYN Administration Heparin Sodium (Porcine) 5,000 units 10/15/18 10:00 10/17/18 09:32 Heparin SC Not Given Q12 JOCELYN Hydralazine HCl 50 mg 10/16/18 10:45 10/18/18 05:37 Apresoline PO 50 mg Q8 JOCELYN Administration Hydrocortisone 10 mg 10/15/18 10:00 10/18/18 09:11 Cortef PO 10 mg DAILY JOCELYN Administration Dexmedetomidine HCl 200 mcg/ 50 mls @ 4.38 mls/hr 10/12/18 09:02 10/18/18 08:45 Sodium Chloride IV 0.3 mcg/kg/hr TITR PRN 6.57 mls/hr Agitation Administration Protocol 0.2 MCG/KG/HR Ferric Sodium Gluconate 110 mls @ 110 mls/hr 10/15/18 11:30 10/18/18 11:00 Complex 125 mg/ Sodium IVPB 10/23/18 11:31 110 mls/hr Chloride Q24H JOCELYN Administration Vancomycin HCl 1 gm/ Sodium 250 mls @ 166.7 mls/hr 10/17/18 09:00 10/17/18 08:00 Chloride IVPB 166.7 mls/hr [facility] JOCELYN Administration Protocol Cefepime HCl 1 gm/ Dextrose 50 mls @ 100 mls/hr 10/16/18 14:00 10/18/18 09:00 IVPB 100 mls/hr DAILY JOCELYN Administration Protocol Insulin Aspart 0 unit 10/18/18 18:00 Novolog SC Q6H [facility] Protocol Insulin Detemir 30 unit 10/14/18 10:00 10/18/18 09:21 Levemir SC Not Given Q12 [facility] Isosorbide Dinitrate 20 mg 10/13/18 10:00 10/18/18 09:11 Isordil PO 20 mg BID JOCELYN Administration Levetiracetam 750 mg 10/08/18 10:00 10/18/18 09:20 Keppra PO 750 mg BID JOCELYN Administration Levothyroxine Sodium 50 mcg 09/29/18 08:00 10/18/18 05:37 Synthroid PO 50 mcg 0600 JOCELYN Administration Metoprolol Tartrate 25 mg 10/15/18 22:00 10/18/18 09:10 Lopressor NG 25 mg BID JOCELYN Administration Mupirocin 0.25 gm 10/16/18 10:00 10/18/18 09:11 Bactroban 2% Nasal HILLARY 0.25 gm BID JOCELYN Administration Pantoprazole Sodium 40 mg 10/09/18 06:00 10/18/18 05:37 Protonix Susp PO 40 mg 0600 JOCELYN Administration Rosuvastatin Calcium 10 mg 09/30/18 22:00 10/17/18 22:45 Crestor PO 10 mg HS JOCELYN Administration - Patient Studies Lab Studies: Microbiology Studies 10/16/18 11:45 Blood Culture - Preliminary Blood-Venous NO GROWTH AFTER 48 HOURS 10/16/18 12:10 Blood Culture - Preliminary Blood-Venous NO GROWTH AFTER 48 HOURS Lab Studies 10/18/18 10/18/18 10/18/18 Range/Units 14:00 10:12 06:10 WBC (4.8-10.8) K/uL RBC (3.80-5.20) Mil/uL Hgb (11.0-16.0) g/dL Hct (34.0-47.0) % MCV (81.0-99.0) fL MCH (27.0-31.0) pg MCHC (33.0-37.0) g/dL RDW (11.5-14.5) % Plt Count (130-400) K/uL MPV (7.2-11.7) fL PT (9.7-12.2) SECONDS INR APTT (21-34) SECONDS Puncture Site pCO2 (35-45) mm/Hg pO2 (80-100) mm/Hg HCO3 (21-28) mmol/L ABG pH (7.35-7.45) ABG Total CO2 (22-28) mmol/L ABG O2 Saturation (95-98) % ABG Base Excess (-2.0-3.0) mmol/L ABG Hemoglobin (11.7-17.4) g/dL ABG Carboxyhemoglobin (0.5-1.5) % POC ABG HHb (Measured) (0.0-5.0) % ABG Methemoglobin (0.0-3.0) % Jimenez Test A-a O2 Difference mm/Hg Respiratory Index Hgb O2 Saturation (95.0-98.0) % Vent Mode Mechanical Rate FiO2 % Tidal Volume PEEP Sodium (132-148) mmol/L Potassium (3.6-5.2) mmol/L Chloride (98-107) mmol/L Carbon Dioxide (22-30) mmol/L Anion Gap (10-20) BUN (7-17) mg/dL Creatinine (0.7-1.2) mg/dL Est GFR ( Amer) Est GFR (Non-Af Amer) POC Glucose (mg/dL) 228 H 199 H 150 H (65-110) mg/dL Random Glucose (65-105) mg/dL Calcium (8.6-10.4) mg/dl 10/18/18 10/18/18 10/18/18 Range/Units 06:08 06:08 06:08 WBC 15.8 H (4.8-10.8) K/uL RBC 3.39 L (3.80-5.20) Mil/uL Hgb 9.4 L (11.0-16.0) g/dL Hct 30.2 L (34.0-47.0) % MCV 89.1 (81.0-99.0) fL MCH 27.8 (27.0-31.0) pg MCHC 31.2 L (33.0-37.0) g/dL RDW 16.2 H (11.5-14.5) % Plt Count 282 (130-400) K/uL MPV 9.4 (7.2-11.7) fL PT 13.4 H (9.7-12.2) SECONDS INR 1.2 APTT 39 H (21-34) SECONDS Puncture Site pCO2 (35-45) mm/Hg pO2 (80-100) mm/Hg HCO3 (21-28) mmol/L ABG pH (7.35-7.45) ABG Total CO2 (22-28) mmol/L ABG O2 Saturation (95-98) % ABG Base Excess (-2.0-3.0) mmol/L ABG Hemoglobin (11.7-17.4) g/dL ABG Carboxyhemoglobin (0.5-1.5) % POC ABG HHb (Measured) (0.0-5.0) % ABG Methemoglobin (0.0-3.0) % Jimenez Test A-a O2 Difference mm/Hg Respiratory Index Hgb O2 Saturation (95.0-98.0) % Vent Mode Mechanical Rate FiO2 % Tidal Volume PEEP Sodium 135 (132-148) mmol/L Potassium 4.3 (3.6-5.2) mmol/L Chloride 96 L (98-107) mmol/L Carbon Dioxide 31 H (22-30) mmol/L Anion Gap 12 (10-20) BUN 34 H (7-17) mg/dL Creatinine 2.8 H (0.7-1.2) mg/dL Est GFR ( Amer) 20 Est GFR (Non-Af Amer) 17 POC Glucose (mg/dL) (65-110) mg/dL Random Glucose 124 H (65-105) mg/dL Calcium 7.8 L (8.6-10.4) mg/dl 10/18/18 10/18/18 10/17/18 Range/Units 05:36 01:52 22:23 WBC (4.8-10.8) K/uL RBC (3.80-5.20) Mil/uL Hgb (11.0-16.0) g/dL Hct (34.0-47.0) % MCV (81.0-99.0) fL MCH (27.0-31.0) pg MCHC (33.0-37.0) g/dL RDW (11.5-14.5) % Plt Count (130-400) K/uL MPV (7.2-11.7) fL PT (9.7-12.2) SECONDS INR APTT (21-34) SECONDS Puncture Site L brac pCO2 41 (35-45) mm/Hg pO2 90 (80-100) mm/Hg HCO3 28.7 H (21-28) mmol/L ABG pH 7.46 H (7.35-7.45) ABG Total CO2 30.5 H (22-28) mmol/L ABG O2 Saturation 98.4 H (95-98) % ABG Base Excess 4.9 H (-2.0-3.0) mmol/L ABG Hemoglobin 9.1 L (11.7-17.4) g/dL ABG Carboxyhemoglobin 2.1 H (0.5-1.5) % POC ABG HHb (Measured) 1.5 (0.0-5.0) % ABG Methemoglobin 1.2 (0.0-3.0) % Jimenez Test Na A-a O2 Difference 108.0 mm/Hg Respiratory Index 1.2 Hgb O2 Saturation 95.2 (95.0-98.0) % Vent Mode Prvc Mechanical Rate 14 FiO2 35.0 % Tidal Volume 450 PEEP 5 Sodium (132-148) mmol/L Potassium (3.6-5.2) mmol/L Chloride (98-107) mmol/L Carbon Dioxide (22-30) mmol/L Anion Gap (10-20) BUN (7-17) mg/dL Creatinine (0.7-1.2) mg/dL Est GFR ( Amer) Est GFR (Non-Af Amer) POC Glucose (mg/dL) 106 119 H (65-110) mg/dL Random Glucose (65-105) mg/dL Calcium (8.6-10.4) mg/dl 10/17/18 Range/Units 17:14 WBC (4.8-10.8) K/uL RBC (3.80-5.20) Mil/uL Hgb (11.0-16.0) g/dL Hct (34.0-47.0) % MCV (81.0-99.0) fL MCH (27.0-31.0) pg MCHC (33.0-37.0) g/dL RDW (11.5-14.5) % Plt Count (130-400) K/uL MPV (7.2-11.7) fL PT (9.7-12.2) SECONDS INR APTT (21-34) SECONDS Puncture Site pCO2 (35-45) mm/Hg pO2 (80-100) mm/Hg HCO3 (21-28) mmol/L ABG pH (7.35-7.45) ABG Total CO2 (22-28) mmol/L ABG O2 Saturation (95-98) % ABG Base Excess (-2.0-3.0) mmol/L ABG Hemoglobin (11.7-17.4) g/dL ABG Carboxyhemoglobin (0.5-1.5) % POC ABG HHb (Measured) (0.0-5.0) % ABG Methemoglobin (0.0-3.0) % Jimenez Test A-a O2 Difference mm/Hg Respiratory Index Hgb O2 Saturation (95.0-98.0) % Vent Mode Mechanical Rate FiO2 % Tidal Volume PEEP Sodium (132-148) mmol/L Potassium (3.6-5.2) mmol/L Chloride (98-107) mmol/L Carbon Dioxide (22-30) mmol/L Anion Gap (10-20) BUN (7-17) mg/dL Creatinine (0.7-1.2) mg/dL Est GFR ( Amer) Est GFR (Non-Af Amer) POC Glucose (mg/dL) 87 (65-110) mg/dL Random Glucose (65-105) mg/dL Calcium (8.6-10.4) mg/dl Laboratory Results - last 24 hr 10/17/18 10/17/18 10/18/18 17:14 22:23 01:52 WBC RBC Hgb Hct MCV MCH MCHC RDW Plt Count MPV PT INR APTT Puncture Site pCO2 pO2 HCO3 ABG pH ABG Total CO2 ABG O2 Saturation ABG Base Excess ABG Hemoglobin ABG Carboxyhemoglobin POC ABG HHb (Measured) ABG Methemoglobin Jimenez Test A-a O2 Difference Respiratory Index Hgb O2 Saturation Vent Mode Mechanical Rate FiO2 Tidal Volume PEEP Sodium Potassium Chloride Carbon Dioxide Anion Gap BUN Creatinine Est GFR ( Amer) Est GFR (Non-Af Amer) POC Glucose (mg/dL) 87 119 H 106 Random Glucose Calcium 10/18/18 10/18/18 10/18/18 05:36 06:08 06:08 WBC 15.8 H RBC 3.39 L Hgb 9.4 L Hct 30.2 L MCV 89.1 MCH 27.8 MCHC 31.2 L RDW 16.2 H Plt Count 282 MPV 9.4 PT INR APTT Puncture Site L brac pCO2 41 pO2 90 HCO3 28.7 H ABG pH 7.46 H ABG Total CO2 30.5 H ABG O2 Saturation 98.4 H ABG Base Excess 4.9 H ABG Hemoglobin 9.1 L ABG Carboxyhemoglobin 2.1 H POC ABG HHb (Measured) 1.5 ABG Methemoglobin 1.2 Jimenez Test Na A-a O2 Difference 108.0 Respiratory Index 1.2 Hgb O2 Saturation 95.2 Vent Mode Prvc Mechanical Rate 14 FiO2 35.0 Tidal Volume 450 PEEP 5 Sodium 135 Potassium 4.3 Chloride 96 L Carbon Dioxide 31 H Anion Gap 12 BUN 34 H Creatinine 2.8 H Est GFR ( Amer) 20 Est GFR (Non-Af Amer) 17 POC Glucose (mg/dL) Random Glucose 124 H Calcium 7.8 L 10/18/18 10/18/18 10/18/18 06:08 06:10 10:12 WBC RBC Hgb Hct MCV MCH MCHC RDW Plt Count MPV PT 13.4 H INR 1.2 APTT 39 H Puncture Site pCO2 pO2 HCO3 ABG pH ABG Total CO2 ABG O2 Saturation ABG Base Excess ABG Hemoglobin ABG Carboxyhemoglobin POC ABG HHb (Measured) ABG Methemoglobin Jimenez Test A-a O2 Difference Respiratory Index Hgb O2 Saturation Vent Mode Mechanical Rate FiO2 Tidal Volume PEEP Sodium Potassium Chloride Carbon Dioxide Anion Gap BUN Creatinine Est GFR ( Amer) Est GFR (Non-Af Amer) POC Glucose (mg/dL) 150 H 199 H Random Glucose Calcium 10/18/18 14:00 WBC RBC Hgb Hct MCV MCH MCHC RDW Plt Count MPV PT INR APTT Puncture Site pCO2 pO2 HCO3 ABG pH ABG Total CO2 ABG O2 Saturation ABG Base Excess ABG Hemoglobin ABG Carboxyhemoglobin POC ABG HHb (Measured) ABG Methemoglobin Jimenez Test A-a O2 Difference Respiratory Index Hgb O2 Saturation Vent Mode Mechanical Rate FiO2 Tidal Volume PEEP Sodium Potassium Chloride Carbon Dioxide Anion Gap BUN Creatinine Est GFR ( Amer) Est GFR (Non-Af Amer) POC Glucose (mg/dL) 228 H Random Glucose Calcium Radiology Impressions: Radiology Impressions Chest X-Ray 10/18/18 07:00 IMPRESSION: No active disease. Attending/Attestation - Attestation I have personally seen and examined this patient.: Yes I have fully participated in the care of the patient.: Yes I have reviewed all pertinent clinical information: Yes Notes (Text): 10/18/18 15:18 I have seen and examined the patient. Medical records, lab studies, and imaging were reviewed by me and a management plan was formulated on multidisciplinary rounds with resident Dr. Patton. I agree with their documented assessment and plan. Patient is waiting to get trach placement today, and will also need PEG placement, consulted GI. Critical Care Time 35 minutes. Multi-disciplinary rounds were performed with house staff, nursing, speech therapy, respiratory therapy, pharmacy and nutrition with integrated input from the primary team/attending and other consulting services. The documented time is cumulative and includes review of patient data/exams/labs/chart review and examination of the patient on rounds and throughout the day; time is exclusive of any procedures or teaching time.
[2018-10-18] MEDS ORDERED: Rocuronium 10 mg/ml (5 ml) ONE (15:35)
--- NOTE | 2018-10-18 16:22 | PCM.SURG1 ---
Surgeon's Initial Post Op Note - Surgeon's Notes Surgeon: Dr. Blank Financial Planning Adviser: Dr. Jewell Pre-Operative Diagnosis: respiratory failure Operative Findings: see operative note Post-Operative Diagnosis: same Operation Performed: percutaneous tracheostomy Specimen/Specimens Removed: none Estimated Blood Loss: EBL {In ML}: 15 Blood Products Given: N/A Drains Used: No Drains Post-Op Condition: Fair Date of Surgery/Procedure: 10/18/18 Time of Surgery/Procedure: 16:21
--- NOTE | 2018-10-18 16:46 | RAD ---
Date of service: 10/18/2018 HISTORY: s/p trach COMPARISON: 10/18/2018 FINDINGS: LUNGS: No active pulmonary disease. PLEURA: No significant pleural effusion identified, no pneumothorax apparent. CARDIOVASCULAR: No aortic atherosclerotic calcification present. Normal cardiac size. No congestive change. Right tunneled central venous dialysis catheter. Tracheostomy tube. Nasogastric tube extends to region of distal esophagus, just above the diaphragm. This should be advanced or replaced. OSSEOUS STRUCTURES: No significant abnormalities. VISUALIZED UPPER ABDOMEN: Normal. OTHER FINDINGS: None. IMPRESSION: Nasogastric tube terminates apparently above the left hemidiaphragm and should be advanced or replaced. No acute infiltrate.
--- NOTE | 2018-10-18 18:23 | CP.PCM.PN ---
Subjective - Date & Time of Evaluation Date of Evaluation: 10/17/18 Time of Evaluation: 18:23 - Subjective Subjective: Patient is still not following simple commands. Patient is moving too much. Sedated now. I spoke to the family. They agreed for tracheostomy tube. Possibly even PEG. We will continue the aggressive treatment. Patient will need physical exercise and treatment will follow the patient Objective - Vital Signs/Intake and Output Vital Signs (last 24 hours): Temp Pulse Resp BP Pulse Ox 98.9 F 70 13 111/93 H 92 L 10/18/18 16:00 10/18/18 18:05 10/18/18 18:05 10/18/18 18:05 10/18/18 18:05 Intake and Output: 10/18/18 10/18/18 06:59 18:59 Intake Total 652.5 326.5 Balance 652.5 326.5 - Medications Medications: Current Medications Acetaminophen (Tylenol 325mg Tab) 650 mg PO Q6 PRN PRN Reason: pain+fever Last Admin: 10/09/18 09:59 Dose: 650 mg Albuterol/Ipratropium (Duoneb 3 Mg/0.5 Mg (3 Ml) Ud) 3 ml INH RQ6 [facility] Last Admin: 10/18/18 13:30 Dose: 3 ml Aspirin (Aspirin Chewable) 81 mg PO DAILY [facility] Last Admin: 10/18/18 09:11 Dose: Not Given Epoetin Dedrick (Procrit) 10,000 unit IV MWF [facility] Last Admin: 10/17/18 16:09 Dose: 10,000 unit Heparin Sodium (Porcine) (Heparin) 5,000 units SC Q12 [facility] Last Admin: 10/17/18 09:32 Dose: Not Given Hydralazine HCl (Apresoline) 50 mg PO Q8 [facility] Last Admin: 10/18/18 14:45 Dose: Not Given Hydrocortisone (Cortef) 10 mg PO DAILY [facility] Last Admin: 10/18/18 09:11 Dose: 10 mg Dexmedetomidine HCl 200 mcg/ (Sodium Chloride) 50 mls @ 4.38 mls/hr IV TITR PRN; Protocol PRN Reason: Agitation Last Admin: 10/18/18 08:45 Dose: 0.3 mcg/kg/hr, 6.57 mls/hr Ferric Sodium Gluconate Complex 125 mg/ Sodium Chloride 110 mls @ 110 mls/hr IVPB Q24H [facility] Stop: 10/23/18 11:31 Last Admin: 10/18/18 11:00 Dose: 110 mls/hr Vancomycin HCl 1 gm/ Sodium (Chloride) 250 mls @ 166.7 mls/hr IVPB MWF [facility]; Protocol Last Admin: 10/17/18 08:00 Dose: 166.7 mls/hr Cefepime HCl 1 gm/ Dextrose 50 mls @ 100 mls/hr IVPB DAILY [facility]; Protocol Last Admin: 10/18/18 09:00 Dose: 100 mls/hr Insulin Aspart (Novolog) 0 unit SC Q6H [facility]; Protocol Insulin Detemir (Levemir) 30 unit SC Q12 [facility] Last Admin: 10/18/18 09:21 Dose: Not Given Isosorbide Dinitrate (Isordil) 20 mg PO BID [facility] Last Admin: 10/18/18 18:20 Dose: 20 mg Levetiracetam (Keppra) 750 mg PO BID [facility] Last Admin: 10/18/18 18:20 Dose: 750 mg Levothyroxine Sodium (Synthroid) 50 mcg PO 0600 [facility] Last Admin: 10/18/18 05:37 Dose: 50 mcg Metoprolol Tartrate (Lopressor) 25 mg NG BID [facility] Last Admin: 10/18/18 18:20 Dose: Not Given Mupirocin (Bactroban 2% Nasal) 0.25 gm HILLARY BID [facility] Last Admin: 10/18/18 18:20 Dose: 0.25 gm Pantoprazole Sodium (Protonix Susp) 40 mg PO 0600 [facility] Last Admin: 10/18/18 05:37 Dose: 40 mg Rosuvastatin Calcium (Crestor) 10 mg PO HS [facility] Last Admin: 10/17/18 22:45 Dose: 10 mg - Labs Labs: 10/18/18 06:08 10/18/18 06:08 PT 13.4 SECONDS (9.7-12.2) H 10/18/18 06:08 INR 1.2 10/18/18 06:08 APTT 39 SECONDS (21-34) H 10/18/18 06:08 Assessment and Plan (1) Acute on chronic renal failure Status: Acute (2) Diabetic nephropathy associated with type 2 diabetes mellitus Status: Acute (3) Uremia, acute Status: Acute
--- NOTE | 2018-10-18 18:25 | CP.PCM.PN ---
Subjective - Date & Time of Evaluation Date of Evaluation: 10/18/18 Time of Evaluation: 18:23 - Subjective Subjective: Patient now status post a tracheostomy. Patient is awake but not following commands. No bleeding noted. Currently off sedation. On examination: Vital signs are stable otherwise. Chest good air entry. Patient nontender abdomen Regular heart sounds noted. Labs reviewed Nonspecific. Sputum culture positive for gram-positive cocci. On antibiotic. ID evaluation. Possibly patient will need a PEG tube tomorrow. We will continue the supportive treatment. Sedation as needed and will follow the patient Objective - Vital Signs/Intake and Output Vital Signs (last 24 hours): Temp Pulse Resp BP Pulse Ox 98.9 F 70 13 111/93 H 92 L 10/18/18 16:00 10/18/18 18:05 10/18/18 18:05 10/18/18 18:05 10/18/18 18:05 Intake and Output: 10/18/18 10/18/18 06:59 18:59 Intake Total 652.5 326.5 Balance 652.5 326.5 - Medications Medications: Current Medications Acetaminophen (Tylenol 325mg Tab) 650 mg PO Q6 PRN PRN Reason: pain+fever Last Admin: 10/09/18 09:59 Dose: 650 mg Albuterol/Ipratropium (Duoneb 3 Mg/0.5 Mg (3 Ml) Ud) 3 ml INH RQ6 [facility] Last Admin: 10/18/18 13:30 Dose: 3 ml Aspirin (Aspirin Chewable) 81 mg PO DAILY [facility] Last Admin: 10/18/18 09:11 Dose: Not Given Epoetin Dedrick (Procrit) 10,000 unit IV MWF [facility] Last Admin: 10/17/18 16:09 Dose: 10,000 unit Heparin Sodium (Porcine) (Heparin) 5,000 units SC Q12 [facility] Last Admin: 10/17/18 09:32 Dose: Not Given Hydralazine HCl (Apresoline) 50 mg PO Q8 [facility] Last Admin: 10/18/18 14:45 Dose: Not Given Hydrocortisone (Cortef) 10 mg PO DAILY [facility] Last Admin: 10/18/18 09:11 Dose: 10 mg Dexmedetomidine HCl 200 mcg/ (Sodium Chloride) 50 mls @ 4.38 mls/hr IV TITR PRN; Protocol PRN Reason: Agitation Last Admin: 10/18/18 08:45 Dose: 0.3 mcg/kg/hr, 6.57 mls/hr Ferric Sodium Gluconate Complex 125 mg/ Sodium Chloride 110 mls @ 110 mls/hr IVPB Q24H [facility] Stop: 10/23/18 11:31 Last Admin: 10/18/18 11:00 Dose: 110 mls/hr Vancomycin HCl 1 gm/ Sodium (Chloride) 250 mls @ 166.7 mls/hr IVPB MWF [facility]; Protocol Last Admin: 10/17/18 08:00 Dose: 166.7 mls/hr Cefepime HCl 1 gm/ Dextrose 50 mls @ 100 mls/hr IVPB DAILY [facility]; Protocol Last Admin: 10/18/18 09:00 Dose: 100 mls/hr Insulin Aspart (Novolog) 0 unit SC Q6H [facility]; Protocol Insulin Detemir (Levemir) 30 unit SC Q12 [facility] Last Admin: 10/18/18 09:21 Dose: Not Given Isosorbide Dinitrate (Isordil) 20 mg PO BID [facility] Last Admin: 10/18/18 18:20 Dose: 20 mg Levetiracetam (Keppra) 750 mg PO BID [facility] Last Admin: 10/18/18 18:20 Dose: 750 mg Levothyroxine Sodium (Synthroid) 50 mcg PO 0600 [facility] Last Admin: 10/18/18 05:37 Dose: 50 mcg Metoprolol Tartrate (Lopressor) 25 mg NG BID [facility] Last Admin: 10/18/18 18:20 Dose: Not Given Mupirocin (Bactroban 2% Nasal) 0.25 gm HILLARY BID [facility] Last Admin: 10/18/18 18:20 Dose: 0.25 gm Pantoprazole Sodium (Protonix Susp) 40 mg PO 0600 [facility] Last Admin: 10/18/18 05:37 Dose: 40 mg Rosuvastatin Calcium (Crestor) 10 mg PO HS [facility] Last Admin: 10/17/18 22:45 Dose: 10 mg - Labs Labs: 10/18/18 06:08 10/18/18 06:08 PT 13.4 SECONDS (9.7-12.2) H 10/18/18 06:08 INR 1.2 10/18/18 06:08 APTT 39 SECONDS (21-34) H 10/18/18 06:08 Assessment and Plan (1) Acute on chronic renal failure Status: Acute (2) Diabetic nephropathy associated with type 2 diabetes mellitus Status: Acute (3) Uremia, acute Status: Acute
--- NOTE | 2018-10-18 21:57 | CP.PCM.PN ---
Subjective - Date & Time of Evaluation Date of Evaluation: 10/18/18 Time of Evaluation: 08:25 - Subjective Subjective: Patient seen and examined at bedside. Per nursing no acute events occurred overnight. ROS unobtainable due to patient's current clinical condition. Patient remains intubated and sedated. Physical Examination - Head Exam Head Exam: ATRAUMATIC, NORMAL INSPECTION - Eye Exam Eye Exam: EOMI, Normal appearance, PERRL Pupil Exam: NORMAL ACCOMODATION - ENT Exam ENT Exam: Mucous Membranes Moist, Normal Oropharynx Additional comments: Intubated - Neck Exam Neck Exam: Normal Inspection - Respiratory Exam Respiratory Exam: Clear to Ausculation Bilateral, NORMAL BREATHING PATTERN. absent: Respiratory Distress - Cardiovascular Exam Cardiovascular Exam: REGULAR RHYTHM, +S1, +S2 - GI/Abdominal Exam GI & Abdominal Exam: Soft, Normal Bowel Sounds. absent: Hyperactive Bowel Sounds - Extremities Exam Extremities Exam: Full ROM. absent: Joint Swelling, Pedal Edema - Back Exam Back Exam: NORMAL INSPECTION. absent: CVA tenderness (R), paraspinal tenderness - Neurological Exam Neurological Exam: Alert, Awake, Oriented x3 - Psychiatric Exam Psychiatric exam: Normal Affect, Normal Mood - Skin Skin Exam: Dry, Intact Assessment and Plan - Assessment and Plan (Free Text) Assessment: 72 year old female with past medical history of CAD, CHF, HTN, HLD, pituitary adenoma, is being seen s/p respiratory arrest during AV fistula placement surgery. Plan: Respiratory failure - Currently intubated and sedated. 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 -Continue Cefepime 1gm ivpb daily -Continue Vancomycin 1gm ivpb mwf HTN -Continue Hydralazine 50 mg PO Q8H [facility] -Lopressor 25mg NG BID [facility] HLD -Continue Rosuvastatin 10mg PO HS [facility] CAD -Continue Aspirin 81mg PO Daily [facility] -Continue Coreg 12.5mg PO BID [facility] DM -Levemir 30UNIT sc q12 mir Hypothyroidism -Continue Synthroid 50mcg PO 0600 [facility] CKD on HD - S/p right permacath placed on 10/11 -Procrit 10,000 unit IV MWF ppx -Protonix -Heparin Objective - Vital Signs/Intake and Output Vital Signs (last 24 hours): Temp Pulse Resp BP Pulse Ox 98.9 F 73 14 98/50 L 99 10/18/18 16:00 10/18/18 19:36 10/18/18 19:36 10/18/18 19:36 10/18/18 19:36 Intake and Output: 10/18/18 10/19/18 18:59 06:59 Intake Total 326.5 0 Balance 326.5 0 - Medications Medications: Current Medications Acetaminophen (Tylenol 325mg Tab) 650 mg PO Q6 PRN PRN Reason: pain+fever Last Admin: 10/09/18 09:59 Dose: 650 mg Albuterol/Ipratropium (Duoneb 3 Mg/0.5 Mg (3 Ml) Ud) 3 ml INH RQ6 [facility] Last Admin: 10/18/18 20:22 Dose: 3 ml Aspirin (Aspirin Chewable) 81 mg PO DAILY [facility] Last Admin: 10/18/18 09:11 Dose: Not Given Epoetin Dedrick (Procrit) 10,000 unit IV [facility] Last Admin: 10/17/18 16:09 Dose: 10,000 unit Heparin Sodium (Porcine) (Heparin) 5,000 units SC Q12 [facility] Last Admin: 10/17/18 09:32 Dose: Not Given Hydralazine HCl (Apresoline) 50 mg PO Q12 [facility] Hydrocortisone (Cortef) 10 mg PO DAILY [facility] Last Admin: 10/18/18 09:11 Dose: 10 mg Ferric Sodium Gluconate Complex 125 mg/ Sodium Chloride 110 mls @ 110 mls/hr IVPB Q24H [facility] Stop: 10/23/18 11:31 Last Admin: 10/18/18 11:00 Dose: 110 mls/hr Vancomycin HCl 1 gm/ Sodium (Chloride) 250 mls @ 166.7 mls/hr IVPB MWF [facility]; Protocol Last Admin: 10/17/18 08:00 Dose: 166.7 mls/hr Cefepime HCl 1 gm/ Dextrose 50 mls @ 100 mls/hr IVPB DAILY [facility]; Protocol Last Admin: 10/18/18 09:00 Dose: 100 mls/hr Insulin Aspart (Novolog) 0 unit SC Q6H [facility]; Protocol Last Admin: 10/18/18 18:55 Dose: Not Given Insulin Detemir (Levemir) 30 unit SC Q12 [facility] Last Admin: 10/18/18 09:21 Dose: Not Given Levetiracetam (Keppra) 750 mg PO BID [facility] Last Admin: 10/18/18 18:20 Dose: 750 mg Levothyroxine Sodium (Synthroid) 50 mcg PO 0600 [facility] Last Admin: 10/18/18 05:37 Dose: 50 mcg Lorazepam (Ativan) 1 mg IVP Q6H PRN PRN Reason: Anxiety Last Admin: 10/18/18 21:09 Dose: 1 mg Metoprolol Tartrate (Lopressor) 25 mg NG BID [facility] Last Admin: 10/18/18 18:20 Dose: Not Given Mupirocin (Bactroban 2% Nasal) 0.25 gm HILLARY BID [facility] Last Admin: 10/18/18 18:20 Dose: 0.25 gm Pantoprazole Sodium (Protonix Susp) 40 mg PO 0600 [facility] Last Admin: 10/18/18 05:37 Dose: 40 mg Rosuvastatin Calcium (Crestor) 10 mg PO HS [facility] Last Admin: 10/17/18 22:45 Dose: 10 mg - Labs Labs: 10/18/18 06:08 10/18/18 06:08 PT 13.4 SECONDS (9.7-12.2) H 10/18/18 06:08 INR 1.2 10/18/18 06:08 APTT 39 SECONDS (21-34) H 10/18/18 06:08
[2018-10-19] MEDS: Albuterol-Ipratrop 3 mg / 0.5 (3 ml) UD INH SCH ×4 (01:09→20:47)
--- NOTE | 2018-10-19 01:37 | OP ---
PROCEDURE DATE: 10/18/2018 PREOPERATIVE DIAGNOSIS: Respiratory failure. POSTOPERATIVE DIAGNOSIS: Respiratory failure. PROCEDURES CARRIED OUT: Placement of percutaneous tracheostomy #6. SURGEON: Galindo Blank Jr., MD TIMBER REPAIRER: Dr. Luigi Jewell. ANESTHESIOLOGIST: Layo Ng DO INDICATIONS: The patient is a 72-year-old woman with renal failure, most of her problems requires tracheostomy for ventilatory management. OPERATIVE FINDINGS: Trach was inserted uneventfully. DESCRIPTION OF PROCEDURE: The patient was given general anesthesia and local anesthesia was used. At this point, there is a small 1 cm incision that was made in the midline. A needle was then placed into the trachea. Wire was then placed through this. Sheath dilated and went through this. Then we positioned a #6 trach tube here. After this, we completed bronchoscopy. It was carried out again confirming that we were in the trachea without any evidence of any debris clearly in the trachea. The procedure was then terminated. Catheter was secured to the skin. Blood loss for the procedure was less than 5 mL. Operation carried out was percutaneous tracheostomy #6. Galindo Blank Jr., MD
[2018-10-19] MEDS: Pantoprazole 40 mg Susp UD PO SCH (06:17)
[2018-10-19] MEDS: Levothyroxine 50 MCG TAB PO SCH (06:18)
[2018-10-19 06:31] LABS: BASO # 0.1 K/uL (0.0-0.2); BASO % 0.8 % (0.0-2.0); EOS # 0.8 K/uL (0.0-0.7); EOS % 5.1 % (0.0-4.0); HEMOGLOBIN 9.4 g/dL (11.0-16.0); LYMPH # 1.8 K/uL (1.0-4.3); LYMPH % 11.3 % (20.0-40.0); MEAN CELL VOLUME 89.7 fL (81.0-99.0); MEAN CORPUSCULAR HEMOGLOBIN 27.3 pg (27.0-31.0); MEAN CORPUSCULAR HGB CONC 30.4 g/dL (33.0-37.0); MEAN PLATELET VOLUME 9.6 fL (7.2-11.7); MONO # 1.4 K/uL (0.0-0.8); MONO % 8.3 % (0.0-10.0); NEUT # 12.2 K/uL (1.8-7.0); NEUT % 74.5 % (50.0-75.0); RBC 3.44 Mil/uL (3.80-5.20); RED CELL DISTRIBUTION WIDTH 17.8 % (11.5-14.5); WHITE BLOOD COUNT 16.4 K/uL (4.8-10.8)
[2018-10-19] MEDS: (Novolog) Insulin Aspart, Recombinant 100 u/ml 10 ml vial SC SCH ×4 (06:45→17:33)
[2018-10-19 06:48] LABS: ALB/GLOB RATIO 1.2 (1.0-2.1); ALBUMIN 3.5 g/dL (3.5-5.0); CALCIUM 8.1 mg/dl (8.6-10.4)
[2018-10-19 06:59] LABS: INR 1.3; PROTHROMBIN TIME 14.1 SECONDS (9.7-12.2)
--- NOTE | 2018-10-19 08:17 | CP.PCM.PN ---
Subjective - Date & Time of Evaluation Date of Evaluation: 10/19/18 Time of Evaluation: 08:15 - Subjective Subjective: s/p trach still very agitated remains on vent labs stable BP controlled cannot obtain further ROS Objective - Vital Signs/Intake and Output Vital Signs (last 24 hours): Temp Pulse Resp BP Pulse Ox 98.9 F 89 14 164/39 H 99 10/19/18 04:00 10/19/18 06:40 10/19/18 06:40 10/19/18 06:40 10/19/18 06:40 Intake and Output: 10/19/18 10/19/18 06:59 18:59 Intake Total 100 Balance 100 - Medications Medications: Current Medications Acetaminophen (Tylenol 325mg Tab) 650 mg PO Q6 PRN PRN Reason: pain+fever Last Admin: 10/09/18 09:59 Dose: 650 mg Albuterol/Ipratropium (Duoneb 3 Mg/0.5 Mg (3 Ml) Ud) 3 ml INH RQ6 [facility] Last Admin: 10/19/18 08:06 Dose: 3 ml Aspirin (Aspirin Chewable) 81 mg PO DAILY [facility] Last Admin: 10/18/18 09:11 Dose: Not Given Epoetin Dedrick (Procrit) 10,000 unit IV MWF [facility] Last Admin: 10/17/18 16:09 Dose: 10,000 unit Heparin Sodium (Porcine) (Heparin) 5,000 units SC Q12 [facility] Last Admin: 10/17/18 09:32 Dose: Not Given Hydralazine HCl (Apresoline) 50 mg PO Q12 [facility] Last Admin: 10/18/18 22:45 Dose: 50 mg Hydrocortisone (Cortef) 10 mg PO DAILY [facility] Last Admin: 10/18/18 09:11 Dose: 10 mg Ferric Sodium Gluconate Complex 125 mg/ Sodium Chloride 110 mls @ 110 mls/hr IVPB Q24H [facility] Stop: 10/23/18 11:31 Last Admin: 10/18/18 11:00 Dose: 110 mls/hr Vancomycin HCl 1 gm/ Sodium (Chloride) 250 mls @ 166.7 mls/hr IVPB MWF [facility]; Protocol Last Admin: 10/17/18 08:00 Dose: 166.7 mls/hr Cefepime HCl 1 gm/ Dextrose 50 mls @ 100 mls/hr IVPB DAILY [facility]; Protocol Last Admin: 10/18/18 09:00 Dose: 100 mls/hr Insulin Aspart (Novolog) 0 unit SC Q6H [facility]; Protocol Last Admin: 10/19/18 06:45 Dose: Not Given Insulin Detemir (Levemir) 30 unit SC Q12 [facility] Last Admin: 10/18/18 22:01 Dose: Not Given Levetiracetam (Keppra) 750 mg PO BID [facility] Last Admin: 10/18/18 18:20 Dose: 750 mg Levothyroxine Sodium (Synthroid) 50 mcg PO 0600 [facility] Last Admin: 10/19/18 06:18 Dose: 50 mcg Lorazepam (Ativan) 1 mg IVP Q6H PRN PRN Reason: Anxiety Last Admin: 10/19/18 04:00 Dose: 1 mg Metoprolol Tartrate (Lopressor) 25 mg NG BID [facility] Last Admin: 10/18/18 18:20 Dose: Not Given Mupirocin (Bactroban 2% Nasal) 0.25 gm HILLARY BID [facility] Last Admin: 10/18/18 18:20 Dose: 0.25 gm Pantoprazole Sodium (Protonix Susp) 40 mg PO 0600 [facility] Last Admin: 10/19/18 06:17 Dose: 40 mg Rosuvastatin Calcium (Crestor) 10 mg PO HS [facility] Last Admin: 10/18/18 22:45 Dose: 10 mg - Labs Labs: 10/19/18 06:24 10/19/18 06:21 PT 14.1 SECONDS (9.7-12.2) H 10/19/18 06:21 INR 1.3 10/19/18 06:21 APTT 38 SECONDS (21-34) H 10/19/18 06:21 - Constitutional Appears: In Acute Distress, Chronically Ill - Head Exam Head Exam: ATRAUMATIC, NORMAL INSPECTION - Eye Exam Eye Exam: EOMI, Normal appearance - Neck Exam Neck Exam: Normal Inspection. absent: Tenderness - Respiratory Exam Respiratory Exam: Decreased Breath Sounds, Respiratory Distress - Cardiovascular Exam Cardiovascular Exam: REGULAR RHYTHM, +S1 - GI/Abdominal Exam GI & Abdominal Exam: Soft. absent: Tenderness - Extremities Exam Extremities Exam: Normal Inspection. absent: Tenderness - Neurological Exam Neurological Exam: Awake, CN II-XII Intact - Psychiatric Exam Psychiatric exam: Agitated, Anxious - Skin Skin Exam: Dry, Warm Assessment and Plan (1) ESRD (end stage renal disease) Status: Acute (2) Diabetic nephropathy associated with type 2 diabetes mellitus Status: Acute (3) CAD (coronary artery disease) Status: Acute (4) HTN (hypertension) Status: Acute - Assessment and Plan (Free Text) Plan: For dialysis today and MWF Same EPO, IV Fe monitor BP Might need trach Need to control agitation if possible
[2018-10-19] MEDS: Mupirocin 2% Ointment (NASAL) NAS SCH ×2 (09:54→17:04)
--- NOTE | 2018-10-19 09:59 | CP.CCUPN ---
<Dyllan Patton - Last Filed: 10/19/18 12:50> CCU Subjective - Physician Review Subjective (Free Text): PGY-1 ICU progress note for Dr Anupama Swartz Patient is seen and examined at bedside. Patient is clinically same, s/p tracheostomy day #1, not responsive to verbal or tactile stimulus, moving extremities sporadically. ROS unattainable due to patient's mental status. 10/19/18 13:13 Critical Care Time Spent (in minutes): 35 CCU Objective - Vital Signs / Intake & Output Vital Signs (Last 4 hours): Vital Signs Temp Pulse Resp BP Pulse Ox 10/19/18 09:10 174/61 H 10/19/18 09:09 89 17 96 10/19/18 09:00 90 26 H 99 10/19/18 08:39 89 16 166/56 H 95 10/19/18 08:09 89 18 168/76 H 95 10/19/18 08:00 100.7 F H 85 15 98 10/19/18 07:49 90 17 153/60 H 96 10/19/18 07:40 91 H 22 157/141 H 98 10/19/18 07:10 92 H 20 169/109 H 96 10/19/18 07:00 89 19 98 10/19/18 06:40 89 14 164/39 H 99 10/19/18 06:18 91 H 22 120/70 99 10/19/18 06:04 96 H 22 125/41 L 99 Intake and Output (Last 8hrs): Intake & Output 10/18/18 10/19/18 10/19/18 22:59 06:59 14:59 Intake Total 208.5 100 0 Balance 208.5 100 0 Weight 197 lb 1.492 oz Intake: IV 200 Intake, IV Amount 8.5 Right Upper Arm Midline 8.5 Tube Feeding 0 0 0 Other 100 Other: # Voids Urine, Voided 0 0 0 # Bowel Movements 0 0 0 - Physical Exam Head: Positive for: Atraumatic, Normocephalic Extroacular Muscles: Positive for: EOMI (dropping eyelid left) Conjunctiva: Positive for: Normal Mouth: Positive for: Dry, Other (intubated ETT in place) Respiratory/Chest: Positive for: Decreased Breath Sounds, Other (intubated ). Negative for: Respiratory Distress, Accessory Muscle Use, Tachypneic Cardiovascular: Positive for: Regular Rate and Rhythm, Normal S1, S2 Abdomen: Positive for: Normal Bowel Sounds. Negative for: Tenderness, D istention, Rebound, Guarding Upper Extremity: Positive for: Normal Inspection. Negative for: Cyanosis, Edema Lower Extremity: Positive for: Normal Inspection. Negative for: Edema Neurological: Negative for: GCS=15, CN II-XII Intact, Speech Normal Skin: Positive for: Warm, Dry, Normal Color, Other (permacath in place, right femoral TLC) Psychiatric: Negative for: Alert, Oriented x 3, Normal Insight, Normal Concentration - Medications Active Medications: Active Medications Generic Name Dose Route Start Last Admin Trade Name Freq PRN Reason Stop Dose Admin Acetaminophen 650 mg 10/08/18 10:08 10/09/18 09:59 Tylenol 325mg Tab PO 650 mg Q6 PRN Administration pain+fever Albuterol/Ipratropium 3 ml 10/12/18 14:00 10/19/18 08:06 Duoneb 3 Mg/0.5 Mg (3 Ml) Ud INH 3 ml RQ6 JOCELYN Administration Aspirin 81 mg 10/08/18 10:00 10/18/18 09:11 Aspirin Chewable PO Not Given DAILY JOCELYN Epoetin Dedrick 10,000 unit 10/17/18 09:00 10/17/18 16:09 Procrit IV 10,000 unit MWF JOCELYN Administration Heparin Sodium (Porcine) 5,000 units 10/15/18 10:00 10/17/18 09:32 Heparin SC Not Given Q12 JOCELYN Hydralazine HCl 50 mg 10/18/18 22:00 10/18/18 22:45 Apresoline PO 50 mg Q12 JOCELYN Administration Hydrocortisone 10 mg 10/15/18 10:00 10/18/18 09:11 Cortef PO 10 mg DAILY JOCELYN Administration Ferric Sodium Gluconate 110 mls @ 110 mls/hr 10/15/18 11:30 10/18/18 11:00 Complex 125 mg/ Sodium IVPB 10/23/18 11:31 110 mls/hr Chloride Q24H JOCELYN Administration Vancomycin HCl 1 gm/ Sodium 250 mls @ 166.7 mls/hr 10/17/18 09:00 10/17/18 08:00 Chloride IVPB 166.7 mls/hr MWF JOCELYN Administration Protocol Cefepime HCl 1 gm/ Dextrose 50 mls @ 100 mls/hr 10/16/18 14:00 10/18/18 09:00 IVPB 100 mls/hr DAILY [facility] Administration Protocol Insulin Aspart 0 unit 10/18/18 18:00 10/19/18 06:45 Novolog SC Not Given Q6H [facility] Protocol Insulin Detemir 30 unit 10/14/18 10:00 10/18/18 22:01 Levemir SC Not Given Q12 [facility] Levetiracetam 750 mg 10/08/18 10:00 10/18/18 18:20 Keppra PO 750 mg BID JOCELYN Administration Levothyroxine Sodium 50 mcg 09/29/18 08:00 10/19/18 06:18 Synthroid PO 50 mcg 0600 [facility] Administration Lorazepam 1 mg 10/18/18 18:27 10/19/18 09:55 Ativan IVP 1 mg Q6H PRN Administration Anxiety Metoprolol Tartrate 25 mg 10/15/18 22:00 10/18/18 18:20 Lopressor NG Not Given BID [facility] Mupirocin 0.25 gm 10/16/18 10:00 10/19/18 09:54 Bactroban 2% Nasal HILLARY 0.25 gm BID JOCELYN Administration Pantoprazole Sodium 40 mg 10/09/18 06:00 10/19/18 06:17 Protonix Susp PO 40 mg 0600 [facility] Administration Rosuvastatin Calcium 10 mg 09/30/18 22:00 10/18/18 22:45 Crestor PO 10 mg HS JOCELYN Administration - Patient Studies Lab Studies: Microbiology Studies 10/16/18 11:45 Blood Culture - Preliminary Blood-Venous NO GROWTH AFTER 48 HOURS 10/16/18 12:10 Blood Culture - Preliminary Blood-Venous NO GROWTH AFTER 48 HOURS Lab Studies 10/19/18 10/19/18 10/19/18 Range/Units 06:42 06:24 06:21 WBC 16.4 H (4.8-10.8) K/uL RBC 3.44 L (3.80-5.20) Mil/uL Hgb 9.4 L (11.0-16.0) g/dL Hct 30.9 L (34.0-47.0) % MCV 89.7 (81.0-99.0) fL MCH 27.3 (27.0-31.0) pg MCHC 30.4 L (33.0-37.0) g/dL RDW 17.8 H (11.5-14.5) % Plt Count 301 (130-400) K/uL MPV 9.6 (7.2-11.7) fL Neut % (Auto) 74.5 (50.0-75.0) % Lymph % (Auto) 11.3 L (20.0-40.0) % Crowley % (Auto) 8.3 (0.0-10.0) % Eos % (Auto) 5.1 H (0.0-4.0) % Baso % (Auto) 0.8 (0.0-2.0) % Neut # (Auto) 12.2 H (1.8-7.0) K/uL Lymph # (Auto) 1.8 (1.0-4.3) K/uL Crowley # (Auto) 1.4 H (0.0-0.8) K/uL Eos # (Auto) 0.8 H (0.0-0.7) K/uL Baso # (Auto) 0.1 (0.0-0.2) K/uL PT 14.1 H (9.7-12.2) SECONDS INR 1.3 APTT 38 H (21-34) SECONDS Sodium (132-148) mmol/L Potassium (3.6-5.2) mmol/L Chloride (98-107) mmol/L Carbon Dioxide (22-30) mmol/L Anion Gap (10-20) BUN (7-17) mg/dL Creatinine (0.7-1.2) mg/dL Est GFR ( Amer) Est GFR (Non-Af Amer) POC Glucose (mg/dL) 187 H (65-110) mg/dL Random Glucose (65-105) mg/dL Calcium (8.6-10.4) mg/dl Phosphorus (2.5-4.5) mg/dL Magnesium (1.6-2.3) mg/dL Total Bilirubin (0.2-1.3) mg/dL AST (14-36) U/L ALT (9-52) U/L Alkaline Phosphatase (38-126) U/L Total Protein (6.3-8.3) g/dL Albumin (3.5-5.0) g/dL Globulin (2.2-3.9) gm/dL Albumin/Globulin Ratio (1.0-2.1) 10/19/18 10/18/18 10/18/18 Range/Units 06:21 23:46 19:00 WBC (4.8-10.8) K/uL RBC (3.80-5.20) Mil/uL Hgb (11.0-16.0) g/dL Hct (34.0-47.0) % MCV (81.0-99.0) fL MCH (27.0-31.0) pg MCHC (33.0-37.0) g/dL RDW (11.5-14.5) % Plt Count (130-400) K/uL MPV (7.2-11.7) fL Neut % (Auto) (50.0-75.0) % Lymph % (Auto) (20.0-40.0) % Crowley % (Auto) (0.0-10.0) % Eos % (Auto) (0.0-4.0) % Baso % (Auto) (0.0-2.0) % Neut # (Auto) (1.8-7.0) K/uL Lymph # (Auto) (1.0-4.3) K/uL Crowley # (Auto) (0.0-0.8) K/uL Eos # (Auto) (0.0-0.7) K/uL Baso # (Auto) (0.0-0.2) K/uL PT (9.7-12.2) SECONDS INR APTT (21-34) SECONDS Sodium 136 (132-148) mmol/L Potassium 4.4 (3.6-5.2) mmol/L Chloride 98 (98-107) mmol/L Carbon Dioxide 25 (22-30) mmol/L Anion Gap 17 (10-20) BUN 41 H (7-17) mg/dL Creatinine 4.4 H (0.7-1.2) mg/dL Est GFR ( Amer) 12 Est GFR (Non-Af Amer) 10 POC Glucose (mg/dL) 188 H 212 H (65-110) mg/dL Random Glucose 177 H D (65-105) mg/dL Calcium 8.1 L (8.6-10.4) mg/dl Phosphorus 5.6 H (2.5-4.5) mg/dL Magnesium 2.0 (1.6-2.3) mg/dL Total Bilirubin 0.5 (0.2-1.3) mg/dL AST 24 (14-36) U/L ALT 28 (9-52) U/L Alkaline Phosphatase 104 (38-126) U/L Total Protein 6.6 (6.3-8.3) g/dL Albumin 3.5 (3.5-5.0) g/dL Globulin 3.0 (2.2-3.9) gm/dL Albumin/Globulin Ratio 1.2 (1.0-2.1) 10/18/18 10/18/18 Range/Units 14:00 10:12 WBC (4.8-10.8) K/uL RBC (3.80-5.20) Mil/uL Hgb (11.0-16.0) g/dL Hct (34.0-47.0) % MCV (81.0-99.0) fL MCH (27.0-31.0) pg MCHC (33.0-37.0) g/dL RDW (11.5-14.5) % Plt Count (130-400) K/uL MPV (7.2-11.7) fL Neut % (Auto) (50.0-75.0) % Lymph % (Auto) (20.0-40.0) % Crowley % (Auto) (0.0-10.0) % Eos % (Auto) (0.0-4.0) % Baso % (Auto) (0.0-2.0) % Neut # (Auto) (1.8-7.0) K/uL Lymph # (Auto) (1.0-4.3) K/uL Crowley # (Auto) (0.0-0.8) K/uL Eos # (Auto) (0.0-0.7) K/uL Baso # (Auto) (0.0-0.2) K/uL PT (9.7-12.2) SECONDS INR APTT (21-34) SECONDS Sodium (132-148) mmol/L Potassium (3.6-5.2) mmol/L Chloride (98-107) mmol/L Carbon Dioxide (22-30) mmol/L Anion Gap (10-20) BUN (7-17) mg/dL Creatinine (0.7-1.2) mg/dL Est GFR ( Amer) Est GFR (Non-Af Amer) POC Glucose (mg/dL) 228 H 199 H (65-110) mg/dL Random Glucose (65-105) mg/dL Calcium (8.6-10.4) mg/dl Phosphorus (2.5-4.5) mg/dL Magnesium (1.6-2.3) mg/dL Total Bilirubin (0.2-1.3) mg/dL AST (14-36) U/L ALT (9-52) U/L Alkaline Phosphatase (38-126) U/L Total Protein (6.3-8.3) g/dL Albumin (3.5-5.0) g/dL Globulin (2.2-3.9) gm/dL Albumin/Globulin Ratio (1.0-2.1) Laboratory Results - last 24 hr 10/18/18 10/18/18 10/18/18 10:12 14:00 19:00 WBC RBC Hgb Hct MCV MCH MCHC RDW Plt Count MPV Neut % (Auto) Lymph % (Auto) Crowley % (Auto) Eos % (Auto) Baso % (Auto) Neut # (Auto) Lymph # (Auto) Crowley # (Auto) Eos # (Auto) Baso # (Auto) PT INR APTT Sodium Potassium Chloride Carbon Dioxide Anion Gap BUN Creatinine Est GFR ( Amer) Est GFR (Non-Af Amer) POC Glucose (mg/dL) 199 H 228 H 212 H Random Glucose Calcium Phosphorus Magnesium Total Bilirubin AST ALT Alkaline Phosphatase Total Protein Albumin Globulin Albumin/Globulin Ratio 10/18/18 10/19/18 10/19/18 23:46 06:21 06:21 WBC RBC Hgb Hct MCV MCH MCHC RDW Plt Count MPV Neut % (Auto) Lymph % (Auto) Crowley % (Auto) Eos % (Auto) Baso % (Auto) Neut # (Auto) Lymph # (Auto) Crowley # (Auto) Eos # (Auto) Baso # (Auto) PT 14.1 H INR 1.3 APTT 38 H Sodium 136 Potassium 4.4 Chloride 98 Carbon Dioxide 25 Anion Gap 17 BUN 41 H Creatinine 4.4 H Est GFR ( Amer) 12 Est GFR (Non-Af Amer) 10 POC Glucose (mg/dL) 188 H Random Glucose 177 H D Calcium 8.1 L Phosphorus 5.6 H Magnesium 2.0 Total Bilirubin 0.5 AST 24 ALT 28 Alkaline Phosphatase 104 Total Protein 6.6 Albumin 3.5 Globulin 3.0 Albumin/Globulin Ratio 1.2 10/19/18 10/19/18 06:24 06:42 WBC 16.4 H RBC 3.44 L Hgb 9.4 L Hct 30.9 L MCV 89.7 MCH 27.3 MCHC 30.4 L RDW 17.8 H Plt Count 301 MPV 9.6 Neut % (Auto) 74.5 Lymph % (Auto) 11.3 L Crowley % (Auto) 8.3 Eos % (Auto) 5.1 H Baso % (Auto) 0.8 Neut # (Auto) 12.2 H Lymph # (Auto) 1.8 Crowley # (Auto) 1.4 H Eos # (Auto) 0.8 H Baso # (Auto) 0.1 PT INR APTT Sodium Potassium Chloride Carbon Dioxide Anion Gap BUN Creatinine Est GFR ( Amer) Est GFR (Non-Af Amer) POC Glucose (mg/dL) 187 H Random Glucose Calcium Phosphorus Magnesium Total Bilirubin AST ALT Alkaline Phosphatase Total Protein Albumin Globulin Albumin/Globulin Ratio Radiology Impressions: Radiology Impressions Chest X-Ray 10/18/18 16:18 IMPRESSION: Nasogastric tube terminates apparently above the left hemidiaphragm and should be advanced or replaced. No acute infiltrate. Fingerstick Blood Sugar Results: 187 Review of Systems - Review of Systems Systems not reviewed;Unavailable: Acuity of Condition Assessment/Plan - Assessment and Plan (Free Text) Plan: Plan: Patient is a 72 yo female w/ PMH of CKD5, CHF, CAD s/p stents, pituiatry adenoma s/p resection, DM2 admitted for respiratory and cardiac arrest s/p permacath placement and AVF on 10-05. s/p permacath on 10-11-18; possible AMS due to anoxic brain injury, now on HD MWF, tracheostomy done on 10/18/17, planning for PEG placement by GI Neuro Intubated and Sedated continue Keppra 750 mg PO Daily Blu Ryan, Neurology CT head - no definitive internal acute intracranial findings as discussed above. continue to monitor patient's mental status CV Hydralazine 50mg PO Q8H Metoprolol 25mg NG BID Crestor Aspirin Chest Xray portable repeated - no acute inflitrate Pulm Improved chest xray - official report pending Intubated; Vent settings as per ICU Tracheostomy 10/18 Duoneb q6 hydrocortisone GI not feeding well with tube feedings eval for PEG tube placement - Dr Millard possibly to be done in the am continue Tube feeds Protonix Heme EPO w/ Dialysis MWF Ferric sodium drip Renal ESRD- changed to MWF sessions EPO MWF Bumex 2mg [address] Segundo Endo Levemir 30 SC Q12 Insulin regular SC Q4 Levothyroxine 50 PO daily Hydrocortisone 10 mg PO daily Q6 accuchecks ID +cx on 10-07 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 asp Cefepime Vanc with dialysis (MWF) Mupirocin 2% nasal Dr Barrios on case Bcx no growth after 3 days DVT ppx: Heparin GI ppx: Protonix Plan discussed with Dr Maxime Patton, PGY-1 - Date & Time Date: 10/19/18 Time: 08:10 <Corona Swartz - Last Filed: 10/19/18 16:08> CCU Objective - Vital Signs / Intake & Output Vital Signs (Last 4 hours): Vital Signs Pulse Resp BP Pulse Ox 10/19/18 15:09 76 16 153/56 H 97 10/19/18 15:00 71 14 99 10/19/18 14:40 76 16 158/66 H 99 10/19/18 14:09 73 14 115/47 L 10/19/18 14:00 72 14 10/19/18 13:39 72 14 103/39 L 10/19/18 13:09 82 12 141/51 L 10/19/18 13:00 78 14 98 10/19/18 12:39 81 14 98/35 L 97 10/19/18 12:09 85 14 147/41 L 97 Intake and Output (Last 8hrs): Intake & Output 10/19/18 10/19/18 10/19/18 06:59 14:59 22:59 Intake Total 100 480 60 Balance 100 480 60 Weight 197 lb 1.492 oz Intake: Intake, IV Amount 150 Right Upper Arm Midline 150 Tube Feeding 0 180 60 Other 100 150 Other: # Voids Urine, Voided 0 0 1 # Bowel Movements 0 0 1 - Medications Active Medications: Active Medications Generic Name Dose Route Start Last Admin Trade Name Freq PRN Reason Stop Dose Admin Acetaminophen 650 mg 10/08/18 10:08 10/19/18 11:47 Tylenol 325mg Tab PO 650 mg Q6 PRN Administration pain+fever Albuterol/Ipratropium 3 ml 10/12/18 14:00 10/19/18 13:56 Duoneb 3 Mg/0.5 Mg (3 Ml) Ud INH 3 ml RQ6 JOCELYN Administration Aspirin 81 mg 10/08/18 10:00 10/19/18 11:41 Aspirin Chewable PO 81 mg DAILY JOCELYN Administration Epoetin Dedrick 10,000 unit 10/17/18 09:00 10/17/18 16:09 Procrit IV 10,000 unit [facility] Administration Heparin Sodium (Porcine) 5,000 units 10/15/18 10:00 10/19/18 10:06 Heparin SC Not Given Q12 [facility] Hydralazine HCl 50 mg 10/18/18 22:00 10/19/18 11:23 Apresoline PO Not Given Q12 [facility] Hydrocortisone 10 mg 10/15/18 10:00 10/19/18 11:41 Cortef PO 10 mg DAILY JOCELYN Administration Ferric Sodium Gluconate 110 mls @ 110 mls/hr 10/15/18 11:30 10/19/18 11:47 Complex 125 mg/ Sodium IVPB 10/23/18 11:31 110 mls/hr Chloride Q24H JOCELYN Administration Vancomycin HCl 1 gm/ Sodium 250 mls @ 166.7 mls/hr 10/17/18 09:00 10/17/18 08:00 Chloride IVPB 166.7 mls/hr F [facility] Administration Protocol Cefepime HCl 1 gm/ Dextrose 50 mls @ 100 mls/hr 10/16/18 14:00 10/19/18 11:22 IVPB 100 mls/hr DAILY JOCELYN Administration Protocol Insulin Aspart 0 unit 10/18/18 18:00 10/19/18 11:48 Novolog SC 2 units Q6H [facility] Administration Protocol Insulin Detemir 30 unit 10/14/18 10:00 10/19/18 10:07 Levemir SC Not Given Q12 JOCELYN Levetiracetam 750 mg 10/08/18 10:00 10/19/18 11:42 Keppra PO 750 mg BID JOCELYN Administration Levothyroxine Sodium 50 mcg 09/29/18 08:00 10/19/18 06:18 Synthroid PO 50 mcg 0600 JOC[facility]N Administration Lorazepam 1 mg 10/18/18 18:27 10/19/18 09:55 Ativan IVP 1 mg Q6H PRN Administration Anxiety Metoprolol Tartrate 25 mg 10/15/18 22:00 10/19/18 11:23 Lopressor NG Not Given BID JOCELYN Mupirocin 0.25 gm 10/16/18 10:00 10/19/18 09:54 Bactroban 2% Nasal HILLARY 0.25 gm BID JOCELYN Administration Pantoprazole Sodium 40 mg 10/09/18 06:00 10/19/18 06:17 Protonix Susp PO 40 mg 0600 [facility] Administration Rosuvastatin Calcium 10 mg 09/30/18 22:00 10/18/18 22:45 Crestor PO 10 mg HS JOCELYN Administration - Patient Studies Lab Studies: Microbiology Studies 10/16/18 11:45 Blood Culture - Preliminary Blood-Venous NO GROWTH AFTER 3 DAYS 10/16/18 12:10 Blood Culture - Preliminary Blood-Venous NO GROWTH AFTER 3 DAYS Lab Studies 10/19/18 10/19/18 10/19/18 Range/Units 11:43 06:42 06:24 WBC 16.4 H (4.8-10.8) K/uL RBC 3.44 L (3.80-5.20) Mil/uL Hgb 9.4 L (11.0-16.0) g/dL Hct 30.9 L (34.0-47.0) % MCV 89.7 (81.0-99.0) fL MCH 27.3 (27.0-31.0) pg MCHC 30.4 L (33.0-37.0) g/dL RDW 17.8 H (11.5-14.5) % Plt Count 301 (130-400) K/uL MPV 9.6 (7.2-11.7) fL Neut % (Auto) 74.5 (50.0-75.0) % Lymph % (Auto) 11.3 L (20.0-40.0) % Crowley % (Auto) 8.3 (0.0-10.0) % Eos % (Auto) 5.1 H (0.0-4.0) % Baso % (Auto) 0.8 (0.0-2.0) % Neut # (Auto) 12.2 H (1.8-7.0) K/uL Lymph # (Auto) 1.8 (1.0-4.3) K/uL Crowley # (Auto) 1.4 H (0.0-0.8) K/uL Eos # (Auto) 0.8 H (0.0-0.7) K/uL Baso # (Auto) 0.1 (0.0-0.2) K/uL PT (9.7-12.2) SECONDS INR APTT (21-34) SECONDS Sodium (132-148) mmol/L Potassium (3.6-5.2) mmol/L Chloride (98-107) mmol/L Carbon Dioxide (22-30) mmol/L Anion Gap (10-20) BUN (7-17) mg/dL Creatinine (0.7-1.2) mg/dL Est GFR ( Amer) Est GFR (Non-Af Amer) POC Glucose (mg/dL) 197 H 187 H (65-110) mg/dL Random Glucose (65-105) mg/dL Calcium (8.6-10.4) mg/dl Phosphorus (2.5-4.5) mg/dL Magnesium (1.6-2.3) mg/dL Total Bilirubin (0.2-1.3) mg/dL AST (14-36) U/L ALT (9-52) U/L Alkaline Phosphatase (38-126) U/L Total Protein (6.3-8.3) g/dL Albumin (3.5-5.0) g/dL Globulin (2.2-3.9) gm/dL Albumin/Globulin Ratio (1.0-2.1) 10/19/18 10/19/18 10/18/18 Range/Units 06:21 06:21 23:46 WBC (4.8-10.8) K/uL RBC (3.80-5.20) Mil/uL Hgb (11.0-16.0) g/dL Hct (34.0-47.0) % MCV (81.0-99.0) fL MCH (27.0-31.0) pg MCHC (33.0-37.0) g/dL RDW (11.5-14.5) % Plt Count (130-400) K/uL MPV (7.2-11.7) fL Neut % (Auto) (50.0-75.0) % Lymph % (Auto) (20.0-40.0) % Crowley % (Auto) (0.0-10.0) % Eos % (Auto) (0.0-4.0) % Baso % (Auto) (0.0-2.0) % Neut # (Auto) (1.8-7.0) K/uL Lymph # (Auto) (1.0-4.3) K/uL Crowley # (Auto) (0.0-0.8) K/uL Eos # (Auto) (0.0-0.7) K/uL Baso # (Auto) (0.0-0.2) K/uL PT 14.1 H (9.7-12.2) SECONDS INR 1.3 APTT 38 H (21-34) SECONDS Sodium 136 (132-148) mmol/L Potassium 4.4 (3.6-5.2) mmol/L Chloride 98 (98-107) mmol/L Carbon Dioxide 25 (22-30) mmol/L Anion Gap 17 (10-20) BUN 41 H (7-17) mg/dL Creatinine 4.4 H (0.7-1.2) mg/dL Est GFR ( Amer) 12 Est GFR (Non-Af Amer) 10 POC Glucose (mg/dL) 188 H (65-110) mg/dL Random Glucose 177 H D (65-105) mg/dL Calcium 8.1 L (8.6-10.4) mg/dl Phosphorus 5.6 H (2.5-4.5) mg/dL Magnesium 2.0 (1.6-2.3) mg/dL Total Bilirubin 0.5 (0.2-1.3) mg/dL AST 24 (14-36) U/L ALT 28 (9-52) U/L Alkaline Phosphatase 104 (38-126) U/L Total Protein 6.6 (6.3-8.3) g/dL Albumin 3.5 (3.5-5.0) g/dL Globulin 3.0 (2.2-3.9) gm/dL Albumin/Globulin Ratio 1.2 (1.0-2.1) 10/18/18 Range/Units 19:00 WBC (4.8-10.8) K/uL RBC (3.80-5.20) Mil/uL Hgb (11.0-16.0) g/dL Hct (34.0-47.0) % MCV (81.0-99.0) fL MCH (27.0-31.0) pg MCHC (33.0-37.0) g/dL RDW (11.5-14.5) % Plt Count (130-400) K/uL MPV (7.2-11.7) fL Neut % (Auto) (50.0-75.0) % Lymph % (Auto) (20.0-40.0) % Crowley % (Auto) (0.0-10.0) % Eos % (Auto) (0.0-4.0) % Baso % (Auto) (0.0-2.0) % Neut # (Auto) (1.8-7.0) K/uL Lymph # (Auto) (1.0-4.3) K/uL Crowley # (Auto) (0.0-0.8) K/uL Eos # (Auto) (0.0-0.7) K/uL Baso # (Auto) (0.0-0.2) K/uL PT (9.7-12.2) SECONDS INR APTT (21-34) SECONDS Sodium (132-148) mmol/L Potassium (3.6-5.2) mmol/L Chloride (98-107) mmol/L Carbon Dioxide (22-30) mmol/L Anion Gap (10-20) BUN (7-17) mg/dL Creatinine (0.7-1.2) mg/dL Est GFR ( Amer) Est GFR (Non-Af Amer) POC Glucose (mg/dL) 212 H (65-110) mg/dL Random Glucose (65-105) mg/dL Calcium (8.6-10.4) mg/dl Phosphorus (2.5-4.5) mg/dL Magnesium (1.6-2.3) mg/dL Total Bilirubin (0.2-1.3) mg/dL AST (14-36) U/L ALT (9-52) U/L Alkaline Phosphatase (38-126) U/L Total Protein (6.3-8.3) g/dL Albumin (3.5-5.0) g/dL Globulin (2.2-3.9) gm/dL Albumin/Globulin Ratio (1.0-2.1) Laboratory Results - last 24 hr 10/18/18 10/18/18 10/19/18 19:00 23:46 06:21 WBC RBC Hgb Hct MCV MCH MCHC RDW Plt Count MPV Neut % (Auto) Lymph % (Auto) Crowley % (Auto) Eos % (Auto) Baso % (Auto) Neut # (Auto) Lymph # (Auto) Crowley # (Auto) Eos # (Auto) Baso # (Auto) PT INR APTT Sodium 136 Potassium 4.4 Chloride 98 Carbon Dioxide 25 Anion Gap 17 BUN 41 H Creatinine 4.4 H Est GFR ( Amer) 12 Est GFR (Non-Af Amer) 10 POC Glucose (mg/dL) 212 H 188 H Random Glucose 177 H D Calcium 8.1 L Phosphorus 5.6 H Magnesium 2.0 Total Bilirubin 0.5 AST 24 ALT 28 Alkaline Phosphatase 104 Total Protein 6.6 Albumin 3.5 Globulin 3.0 Albumin/Globulin Ratio 1.2 10/19/18 10/19/18 10/19/18 06:21 06:24 06:42 WBC 16.4 H RBC 3.44 L Hgb 9.4 L Hct 30.9 L MCV 89.7 MCH 27.3 MCHC 30.4 L RDW 17.8 H Plt Count 301 MPV 9.6 Neut % (Auto) 74.5 Lymph % (Auto) 11.3 L Crowley % (Auto) 8.3 Eos % (Auto) 5.1 H Baso % (Auto) 0.8 Neut # (Auto) 12.2 H Lymph # (Auto) 1.8 Crowley # (Auto) 1.4 H Eos # (Auto) 0.8 H Baso # (Auto) 0.1 PT 14.1 H INR 1.3 APTT 38 H Sodium Potassium Chloride Carbon Dioxide Anion Gap BUN Creatinine Est GFR ( Amer) Est GFR (Non-Af Amer) POC Glucose (mg/dL) 187 H Random Glucose Calcium Phosphorus Magnesium Total Bilirubin AST ALT Alkaline Phosphatase Total Protein Albumin Globulin Albumin/Globulin Ratio 10/19/18 11:43 WBC RBC Hgb Hct MCV MCH MCHC RDW Plt Count MPV Neut % (Auto) Lymph % (Auto) Crowley % (Auto) Eos % (Auto) Baso % (Auto) Neut # (Auto) Lymph # (Auto) Crowley # (Auto) Eos # (Auto) Baso # (Auto) PT INR APTT Sodium Potassium Chloride Carbon Dioxide Anion Gap BUN Creatinine Est GFR ( Amer) Est GFR (Non-Af Amer) POC Glucose (mg/dL) 197 H Random Glucose Calcium Phosphorus Magnesium Total Bilirubin AST ALT Alkaline Phosphatase Total Protein Albumin Globulin Albumin/Globulin Ratio Radiology Impressions: Radiology Impressions Chest X-Ray 10/18/18 16:18 IMPRESSION: Nasogastric tube terminates apparently above the left hemidiaphragm and should be advanced or replaced. No acute infiltrate. Head CT 10/19/18 07:28 IMPRESSION: Stable age-related degenerative change are identified in this study compromised by motion artifacts. No definitive interval acute intracranial findings as discussed above. Attending/Attestation - Attestation I have personally seen and examined this patient.: Yes I have fully participated in the care of the patient.: Yes I have reviewed all pertinent clinical information: Yes Notes (Text): 10/19/18 16:07 I have seen and examined the patient. Medical records, lab studies, and imaging were reviewed by me and a management plan was formulated on multidisciplinary rounds with resident Dr. Patton. I agree with their documented assessment and plan. Patient is still awaiting PEG placement. Clinically stable with anoxic brain injury, will downgrade to the floors. Critical Care Time 35 minutes. Multi-disciplinary rounds were performed with house staff, nursing, speech therapy, respiratory therapy, pharmacy and nutrition with integrated input from the primary team/attending and other consulting services. The documented time is cumulative and includes review of patient data/exams/labs/chart review and examination of the patient on rounds and throughout the day; time is exclusive of any procedures or teaching time.
[2018-10-19] MEDS: Insulin Detemir 100 units/ml Vial (Levemir) SC SCH ×2 (10:07→22:31)
[2018-10-19] MEDS: levETIRAcetam 100 mg/ml (5ml) Oral Syringe PO SCH ×3 (10:07→17:03)
--- NOTE | 2018-10-19 10:18 | CP.PCM.PN ---
Subjective - Date & Time of Evaluation Date of Evaluation: 10/19/18 Time of Evaluation: 07:15 - Subjective Subjective: Vascular Surgery Pt seen and examined. No acute events overnight. Still remains intubated and sedated on precedex. Still flailing extremities. Objective - Vital Signs/Intake and Output Vital Signs (last 24 hours): Temp Pulse Resp BP Pulse Ox 100.7 F H 89 17 174/61 H 96 10/19/18 08:00 10/19/18 09:09 10/19/18 09:09 10/19/18 09:10 10/19/18 09:09 Intake and Output: 10/19/18 10/19/18 06:59 18:59 Intake Total 100 0 Balance 100 0 - Medications Medications: Current Medications Acetaminophen (Tylenol 325mg Tab) 650 mg PO Q6 PRN PRN Reason: pain+fever Last Admin: 10/09/18 09:59 Dose: 650 mg Albuterol/Ipratropium (Duoneb 3 Mg/0.5 Mg (3 Ml) Ud) 3 ml INH RQ6 [facility] Last Admin: 10/19/18 08:06 Dose: 3 ml Aspirin (Aspirin Chewable) 81 mg PO DAILY [facility] Last Admin: 10/18/18 09:11 Dose: Not Given Epoetin Dedrick (Procrit) 10,000 unit IV [facility] Last Admin: 10/17/18 16:09 Dose: 10,000 unit Heparin Sodium (Porcine) (Heparin) 5,000 units SC Q12 [facility] Last Admin: 10/19/18 10:06 Dose: Not Given Hydralazine HCl (Apresoline) 50 mg PO Q12 [facility] Last Admin: 10/18/18 22:45 Dose: 50 mg Hydrocortisone (Cortef) 10 mg PO DAILY [facility] Last Admin: 10/18/18 09:11 Dose: 10 mg Ferric Sodium Gluconate Complex 125 mg/ Sodium Chloride 110 mls @ 110 mls/hr IVPB Q24H [facility] Stop: 10/23/18 11:31 Last Admin: 10/18/18 11:00 Dose: 110 mls/hr Vancomycin HCl 1 gm/ Sodium (Chloride) 250 mls @ 166.7 mls/hr IVPB MWF [facility]; Protocol Last Admin: 10/17/18 08:00 Dose: 166.7 mls/hr Cefepime HCl 1 gm/ Dextrose 50 mls @ 100 mls/hr IVPB DAILY [facility]; Protocol Last Admin: 10/18/18 09:00 Dose: 100 mls/hr Insulin Aspart (Novolog) 0 unit SC Q6H [facility]; Protocol Last Admin: 10/19/18 06:45 Dose: Not Given Insulin Detemir (Levemir) 30 unit SC Q12 [facility] Last Admin: 10/19/18 10:07 Dose: Not Given Levetiracetam (Keppra) 750 mg PO BID [facility] Last Admin: 10/19/18 10:07 Dose: Not Given Levothyroxine Sodium (Synthroid) 50 mcg PO 0600 [facility] Last Admin: 10/19/18 06:18 Dose: 50 mcg Lorazepam (Ativan) 1 mg IVP Q6H PRN PRN Reason: Anxiety Last Admin: 10/19/18 09:55 Dose: 1 mg Metoprolol Tartrate (Lopressor) 25 mg NG BID [facility] Last Admin: 10/18/18 18:20 Dose: Not Given Mupirocin (Bactroban 2% Nasal) 0.25 gm [place] BID [facility] Last Admin: 10/19/18 09:54 Dose: 0.25 gm Pantoprazole Sodium (Protonix Susp) 40 mg PO 0600 [facility] Last Admin: 10/19/18 06:17 Dose: 40 mg Rosuvastatin Calcium (Crestor) 10 mg PO HS [facility] Last Admin: 10/18/18 22:45 Dose: 10 mg - Labs Labs: 10/19/18 06:24 10/19/18 06:21 PT 14.1 SECONDS (9.7-12.2) H 10/19/18 06:21 INR 1.3 10/19/18 06:21 APTT 38 SECONDS (21-34) H 10/19/18 06:21 - Constitutional Appears: Non-toxic, Chronically Ill - Head Exam Head Exam: ATRAUMATIC, NORMOCEPHALIC - Neck Exam Additional comments: trach in place. good position, no bleeding. - Respiratory Exam Respiratory Exam: NORMAL BREATHING PATTERN (on vent). absent: Respiratory Distress - GI/Abdominal Exam GI & Abdominal Exam: Soft. absent: Distended - Neurological Exam Neurological Exam: Altered - Skin Skin Exam: Dry, Warm Assessment and Plan - Assessment and Plan (Free Text) Assessment: 72F S/P perc trach POD#1 Plan: No further surgical intervention Contact GI for PEG tube Trach stitches out on POD#10 (10/28/18). We will remove stitches if still in house. Will sign off. D/W Dr. Abhay Ace PGY4
--- NOTE | 2018-10-19 10:54 | PN ---
DATE: 10/19/2018 NEUROLOGICAL PROBLEM: Hypoperfusion syndrome manifesting with new onset of seizures. Status post extubation and tracheostomy. The patient is not waking up, not back to her baseline following extubation. PHYSICAL EXAMINATION: VITAL SIGNS: Blood pressure 164/39, mean artery pressure of 81, respiratory rate 18, temperature afebrile with a pulse rate of 89. The patient was moving all four extremities voluntarily. Not responsive to verbal stimuli. Both eyes are closed. On forcibly opening the eyelid, maybe some visual cue there. However, it is not consistent. Deep tendon reflexes are absent. Plantars have equivocal response. The patient is presenting with global cerebral dysfunction, which is probably related to hypoperfusion syndrome. The current presentation is probably secondary to her intracranial insult from hypoperfusion syndrome versus postictal phase or ictal phenomena. RECOMMENDATIONS: 1. Electroencephalogram to be done to rule out any paroxysmal activities. 2. CT of the head to rule in or out any ischemic process. When medically stable, the patient should have MRI of the brain to rule out any acute intracranial insult from her underlying hypoperfusion syndrome. The patient will be followed closely. In the meantime, continue the Keppra as she has been getting at 750 mg twice a day. Blu Yost MD
--- NOTE | 2018-10-19 11:44 | CT ---
Date of service: 10/19/2018 PROCEDURE: CT HEAD WITHOUT CONTRAST. HISTORY: NEW ISCHEMIC PROCESS COMPARISON: None available. TECHNIQUE: Axial computed tomography images were obtained through the head/brain without intravenous contrast. Radiation dose: Total exam DLP = 2781.36 mGy-cm. This CT exam was performed using one or more of the following dose reduction techniques: Automated exposure control, adjustment of the mA and/or kV according to patient size, and/or use of iterative reconstruction technique. FINDINGS: Motion artifacts degrade the quality examination significantly despite multiple series being performed to attempt to overcome this problem. BRAIN: Diffuse cerebral atrophy chronic microangiopathy are reiterated. No definite intracranial hemorrhage or mass-effect. No definitive loss of corticomedullary differentiation. No suspicious extra-axial collection identified. Midline brain anatomy remains unremarkable appearing. VENTRICLES: Unremarkable. No hydrocephalus. CALVARIUM: Unremarkable. PARANASAL SINUSES: Unremarkable as visualized. No significant inflammatory changes. MASTOID AIR CELLS: Unremarkable as visualized. No inflammatory changes. OTHER FINDINGS: None. IMPRESSION: Stable age-related degenerative change are identified in this study compromised by motion artifacts. No definitive interval acute intracranial findings as discussed above.
[2018-10-19] MEDS: Ferric Sodium Gluconat Complex 125 MG in Sodium Chloride 0.9% 100 ML IVPB SCH (11:47)
--- NOTE | 2018-10-19 14:02 | CP.PCM.PN ---
Subjective - Date & Time of Evaluation Date of Evaluation: 10/19/18 Time of Evaluation: 14:00 - Subjective Subjective: Dictated Objective - Vital Signs/Intake and Output Vital Signs (last 24 hours): Temp Pulse Resp BP Pulse Ox 102.4 F H 72 14 103/39 L 98 10/19/18 12:00 10/19/18 13:39 10/19/18 13:39 10/19/18 13:39 10/19/18 13:00 Intake and Output: 10/19/18 10/19/18 06:59 18:59 Intake Total 100 480 Balance 100 480 - Medications Medications: Current Medications Acetaminophen (Tylenol 325mg Tab) 650 mg PO Q6 PRN PRN Reason: pain+fever Last Admin: 10/19/18 11:47 Dose: 650 mg Albuterol/Ipratropium (Duoneb 3 Mg/0.5 Mg (3 Ml) Ud) 3 ml INH RQ6 [facility] Last Admin: 10/19/18 13:56 Dose: 3 ml Aspirin (Aspirin Chewable) 81 mg PO DAILY [facility] Last Admin: 10/19/18 11:41 Dose: 81 mg Epoetin Dedrick (Procrit) 10,000 unit IV MWF [facility] Last Admin: 10/17/18 16:09 Dose: 10,000 unit Heparin Sodium (Porcine) (Heparin) 5,000 units SC Q12 [facility] Last Admin: 10/19/18 10:06 Dose: Not Given Hydralazine HCl (Apresoline) 50 mg PO Q12 [facility] Last Admin: 10/19/18 11:23 Dose: Not Given Hydrocortisone (Cortef) 10 mg PO DAILY [facility] Last Admin: 10/19/18 11:41 Dose: 10 mg Ferric Sodium Gluconate Complex 125 mg/ Sodium Chloride 110 mls @ 110 mls/hr IVPB Q24H [facility] Stop: 10/23/18 11:31 Last Admin: 10/19/18 11:47 Dose: 110 mls/hr Vancomycin HCl 1 gm/ Sodium (Chloride) 250 mls @ 166.7 mls/hr IVPB MWF [facility]; Protocol Last Admin: 10/17/18 08:00 Dose: 166.7 mls/hr Cefepime HCl 1 gm/ Dextrose 50 mls @ 100 mls/hr IVPB DAILY [facility]; Protocol Last Admin: 10/19/18 11:22 Dose: 100 mls/hr Insulin Aspart (Novolog) 0 unit SC Q6H [facility]; Protocol Last Admin: 10/19/18 11:48 Dose: 2 units Insulin Detemir (Levemir) 30 unit SC Q12 [facility] Last Admin: 10/19/18 10:07 Dose: Not Given Levetiracetam (Keppra) 750 mg PO BID [facility] Last Admin: 10/19/18 11:42 Dose: 750 mg Levothyroxine Sodium (Synthroid) 50 mcg PO 0600 [facility] Last Admin: 10/19/18 06:18 Dose: 50 mcg Lorazepam (Ativan) 1 mg IVP Q6H PRN PRN Reason: Anxiety Last Admin: 10/19/18 09:55 Dose: 1 mg Metoprolol Tartrate (Lopressor) 25 mg NG BID [facility] Last Admin: 10/19/18 11:23 Dose: Not Given Mupirocin (Bactroban 2% Nasal) 0.25 gm [place] BID [facility] Last Admin: 10/19/18 09:54 Dose: 0.25 gm Pantoprazole Sodium (Protonix Susp) 40 mg PO 0600 [facility] Last Admin: 10/19/18 06:17 Dose: 40 mg Rosuvastatin Calcium (Crestor) 10 mg PO HS [facility] Last Admin: 10/18/18 22:45 Dose: 10 mg - Labs Labs: 10/19/18 06:24 10/19/18 06:21 PT 14.1 SECONDS (9.7-12.2) H 10/19/18 06:21 INR 1.3 10/19/18 06:21 APTT 38 SECONDS (21-34) H 10/19/18 06:21
--- NOTE | 2018-10-19 14:15 | CP.PCM.CON ---
History of Present Illness - History of Present Illness History of Present Illness: CC: PEG Consult HPI: PEG requested to be placed on this 72 year old woman who is S/P cardiac arrest last week and has been vent dependent and unable to eat or take meds by [facility]. tracheostomy was performed yesterday. Pt has CRF and is on dialysis. Pt spiked fever 102.[address] Orlando. Review of Systems - Review of Systems Systems not reviewed;Unavailable: Altered Mental Status Past Patient History - Infectious Disease Hx of Infectious Diseases: None - Past Medical History & Family History Past Medical History?: Yes - Past Social History Smoking Status: Never Smoked - CARDIAC Hx Pacemaker: No - PULMONARY Hx Respiratory Disorders: No - NEUROLOGICAL Hx Neurological Disorder: No Hx Dizziness: Yes - HEENT Hx HEENT Problems: Yes Other/Comment: left eye drooping-blurry due to DM - RENAL Hx Chronic Kidney Disease: Yes - ENDOCRINE/METABOLIC Hx Diabetes Mellitus Type 2: Yes - HEMATOLOGICAL/ONCOLOGICAL Hx Cancer: No - INTEGUMENTARY Hx Dermatological Problems: No - MUSCULOSKELETAL/RHEUMATOLOGICAL Hx Falls: Yes - GASTROINTESTINAL Hx Gastrointestinal Disorders: No - GENITOURINARY/GYNECOLOGICAL Hx Genitourinary Disorders: No - PSYCHIATRIC Hx Substance Use: No - SURGICAL HISTORY Hx Mastectomy: No - ANESTHESIA Hx Anesthesia: Yes Hx Anesthesia Reactions: No Hx Malignant Hyperthermia: No Meds Allergies/Adverse Reactions: Allergies Allergy/AdvReac Type Severity Reaction Status Date / Time No Known Allergies Allergy Verified 07/21/18 12:21 - Medications Medications: Current Medications Acetaminophen (Tylenol 325mg Tab) 650 mg PO Q6 PRN PRN Reason: pain+fever Last Admin: 10/19/18 11:47 Dose: 650 mg Albuterol/Ipratropium (Duoneb 3 Mg/0.5 Mg (3 Ml) Ud) 3 ml INH RQ6 [facility] Last Admin: 10/19/18 13:56 Dose: 3 ml Aspirin (Aspirin Chewable) 81 mg PO DAILY [facility] Last Admin: 10/19/18 11:41 Dose: 81 mg Epoetin Dedrick (Procrit) 10,000 unit IV MWF [facility] Last Admin: 10/17/18 16:09 Dose: 10,000 unit Heparin Sodium (Porcine) (Heparin) 5,000 units SC Q12 [facility] Last Admin: 10/19/18 10:06 Dose: Not Given Hydralazine HCl (Apresoline) 50 mg PO Q12 [facility] Last Admin: 10/19/18 11:23 Dose: Not Given Hydrocortisone (Cortef) 10 mg PO DAILY [facility] Last Admin: 10/19/18 11:41 Dose: 10 mg Ferric Sodium Gluconate Complex 125 mg/ Sodium Chloride 110 mls @ 110 mls/hr IVPB Q24H [facility] Stop: 10/23/18 11:31 Last Admin: 10/19/18 11:47 Dose: 110 mls/hr Vancomycin HCl 1 gm/ Sodium (Chloride) 250 mls @ 166.7 mls/hr IVPB MWF [facility]; Protocol Last Admin: 10/17/18 08:00 Dose: 166.7 mls/hr Cefepime HCl 1 gm/ Dextrose 50 mls @ 100 mls/hr IVPB DAILY [facility]; Protocol Last Admin: 10/19/18 11:22 Dose: 100 mls/hr Amikacin Sulfate 750 mg/ (Sodium Chloride) 103 mls @ 100 mls/hr IV STAT [facility]; Protocol Stop: 10/19/18 15:09 Insulin Aspart (Novolog) 0 unit SC Q6H [facility]; Protocol Last Admin: 10/19/18 11:48 Dose: 2 units Insulin Detemir (Levemir) 30 unit SC Q12 [facility] Last Admin: 10/19/18 10:07 Dose: Not Given Levetiracetam (Keppra) 750 mg PO BID [facility] Last Admin: 10/19/18 11:42 Dose: 750 mg Levothyroxine Sodium (Synthroid) 50 mcg PO 0600 [facility] Last Admin: 10/19/18 06:18 Dose: 50 mcg Lorazepam (Ativan) 1 mg IVP Q6H PRN PRN Reason: Anxiety Last Admin: 10/19/18 09:55 Dose: 1 mg Metoprolol Tartrate (Lopressor) 25 mg NG BID [facility] Last Admin: 10/19/18 11:23 Dose: Not Given Mupirocin (Bactroban 2% Nasal) 0.25 gm [place] BID [facility] Last Admin: 10/19/18 09:54 Dose: 0.25 gm Pantoprazole Sodium (Protonix Susp) 40 mg PO 0600 [facility] Last Admin: 10/19/18 06:17 Dose: 40 mg Rosuvastatin Calcium (Crestor) 10 mg PO HS [facility] Last Admin: 10/18/18 22:45 Dose: 10 mg Physical Exam - Constitutional Appears: Chronically Ill - Head Exam Head Exam: NORMOCEPHALIC - ENT Exam Additional comments: NG Tube - Neck Exam Additional comments: tracheostomy - Respiratory Exam Respiratory Exam: Decreased Breath Sounds - Cardiovascular Exam Cardiovascular Exam: REGULAR RHYTHM - GI/Abdominal Exam GI & Abdominal Exam: Soft. absent: Tenderness (obese abddomen) Results - Vital Signs Recent Vital Signs: Last Vital Signs Temp 102.4 F H 10/19/18 12:00 Pulse 72 10/19/18 13:39 Resp 14 10/19/18 13:39 BP 103/39 L 10/19/18 13:39 Pulse Ox 98 10/19/18 13:00 - Labs Result Diagrams: 10/19/18 06:24 10/19/18 06:21 Labs: Laboratory Results - last 24 hr 10/18/18 10/18/18 10/19/18 19:00 23:46 06:21 WBC RBC Hgb Hct MCV MCH MCHC RDW Plt Count MPV Neut % (Auto) Lymph % (Auto) [place] % (Auto) Eos % (Auto) Baso % (Auto) Neut # (Auto) Lymph # (Auto) [place] # (Auto) Eos # (Auto) Baso # (Auto) PT INR APTT Sodium 136 Potassium 4.4 Chloride 98 Carbon Dioxide 25 Anion Gap 17 BUN 41 H Creatinine 4.4 H Est GFR ( Amer) 12 Est GFR (Non-Af Amer) 10 POC Glucose (mg/dL) 212 H 188 H Random Glucose 177 H D Calcium 8.1 L Phosphorus 5.6 H Magnesium 2.0 Total Bilirubin 0.5 AST 24 ALT 28 Alkaline Phosphatase 104 Total Protein 6.6 Albumin 3.5 Globulin 3.0 Albumin/Globulin Ratio 1.2 10/19/18 10/19/18 10/19/18 06:21 06:24 06:42 WBC 16.4 H RBC 3.44 L Hgb 9.4 L Hct 30.9 L MCV 89.7 MCH 27.3 MCHC 30.4 L RDW 17.8 H Plt Count 301 MPV 9.6 Neut % (Auto) 74.5 Lymph % (Auto) 11.3 L [place] % (Auto) 8.3 Eos % (Auto) 5.1 H Baso % (Auto) 0.8 Neut # (Auto) 12.2 H Lymph # (Auto) 1.8 [place] # (Auto) 1.4 H Eos # (Auto) 0.8 H Baso # (Auto) 0.1 PT 14.1 H INR 1.3 APTT 38 H Sodium Potassium Chloride Carbon Dioxide Anion Gap BUN Creatinine Est GFR ( Amer) Est GFR (Non-Af Amer) POC Glucose (mg/dL) 187 H Random Glucose Calcium Phosphorus Magnesium Total Bilirubin AST ALT Alkaline Phosphatase Total Protein Albumin Globulin Albumin/Globulin Ratio 10/19/18 11:43 WBC RBC Hgb Hct MCV MCH MCHC RDW Plt Count MPV Neut % (Auto) Lymph % (Auto) [place] % (Auto) Eos % (Auto) Baso % (Auto) Neut # (Auto) Lymph # (Auto) [place] # (Auto) Eos # (Auto) Baso # (Auto) PT INR APTT Sodium Potassium Chloride Carbon Dioxide Anion Gap BUN Creatinine Est GFR ( Amer) Est GFR (Non-Af Amer) POC Glucose (mg/dL) 197 H Random Glucose Calcium Phosphorus Magnesium Total Bilirubin AST ALT Alkaline Phosphatase Total Protein Albumin Globulin Albumin/Globulin Ratio Assessment & Plan (1) Dysphagia Assessment and Plan: Post cardiac arrest Would benefit from PEG Will schedule PEG for non-dialysis day, after fevers resolve. Discussed with Dr Orlando Status: Acute
--- NOTE | 2018-10-19 18:03 | PN ---
DATE: 10/19/2018 SUBJECTIVE: The patient is having fevers the nurse just told me and she remains on SCDs, is still on the vent and is now lethargic, unresponsive, has these involuntary movements or jerky movements of the upper extremities and non communicative, not able to focus. She has a midline as well as a dialysis catheter. She is going to have dialysis very soon I am told. PHYSICAL EXAMINATION: GENERAL: unresponsive. VITAL SIGNS: She had a fever of 102.4 earlier, heart rate is 78, blood pressure is 98/35, respirations remain 14 and saturations 97%. HEENT: Exam is unremarkable otherwise, unresponsive. NECK: Supple. LUNGS: Have coarse breath sounds. HEART: S1, S2 is regular. ABDOMEN: Soft and nontender. EXTREMITIES: Remain with foot protectors. LABORATORY DATA: Labs show white count is 16.4, hemoglobin 9.4, hematocrit 30.9, platelet count is 301 and sodium is 136, potassium 4.4, chlorides are 98, CO2 is 25, BUN is 41, creatinine is 4.4. Blood culture x2 is negative. MRSA and Citrobacter. ASSESSMENT AND PLAN: So she is still having fevers. We will repeat the chest x-ray, get sputum culture. Blood cultures x2. She is not making any urine. She is a dialysis patient and we will follow. It could be fevers related to anoxic encephalopathy and she is she is still on cefepime and she is getting vancomycin post dialysis, so we will review, give her one dose of Amikacin today and we will follow. Sara Barrios MD
[2018-10-19] MEDS: Epoetin Alfa 10,000 unit/ml Dialysis IV SCH (19:25)
--- NOTE | 2018-10-19 20:22 | CP.PCM.PN ---
Subjective - Date & Time of Evaluation Date of Evaluation: 10/19/18 Time of Evaluation: 10:40 - Subjective Subjective: Patient is seen and examined at bedside. Patient is clinically same, s/p tracheostomy day #1, not responsive to verbal or tactile stimulus, moving extremities sporadically. ROS unattainable due to patient's mental status. CCU Objective - Vital Signs / Intake & Output Vital Signs (Last 4 hours): Vital Signs Temp Pulse Resp BP Pulse Ox 10/19/18 09:10 174/61 H 10/19/18 09:09 89 17 96 10/19/18 09:00 90 26 H 99 10/19/18 08:39 89 16 166/56 H 95 10/19/18 08:09 89 18 168/76 H 95 10/19/18 08:00 100.7 F H 85 15 98 10/19/18 07:49 90 17 153/60 H 96 10/19/18 07:40 91 H 22 157/141 H 98 10/19/18 07:10 92 H 20 169/109 H 96 10/19/18 07:00 89 19 98 10/19/18 06:40 89 14 164/39 H 99 10/19/18 06:18 91 H 22 120/70 99 10/19/18 06:04 96 H 22 125/41 L 99 Intake and Output (Last 8hrs): Intake & Output 10/18/18 10/19/18 10/19/18 22:59 06:59 14:59 Intake Total 208.5 100 0 Balance 208.5 100 0 Weight 197 lb 1.492 oz Intake: IV 200 Intake, IV Amount 8.5 Right Upper Arm Midline 8.5 Tube Feeding 0 0 0 Other 100 Other: # Voids Urine, Voided 0 0 0 # Bowel Movements 0 0 0 - Physical Exam Head: Positive for: Atraumatic, Normocephalic Extroacular Muscles: Positive for: EOMI (dropping eyelid left) Conjunctiva: Positive for: Normal Mouth: Positive for: Dry, Other (intubated ETT in place) Respiratory/Chest: Positive for: Decreased Breath Sounds, Other (intubated ). Negative for: Respiratory Distress, Accessory Muscle Use, Tachypneic Cardiovascular: Positive for: Regular Rate and Rhythm, Normal S1, S2 Abdomen: Positive for: Normal Bowel Sounds. Negative for: Tenderness, Distenti on, Rebound, Guarding Upper Extremity: Positive for: Normal Inspection. Negative for: Cyanosis, Edema Lower Extremity: Positive for: Normal Inspection. Negative for: Edema Neurological: Negative for: GCS=15, CN II-XII Intact, Speech Normal Skin: Positive for: Warm, Dry, Normal Color, Other (permacath in place, right femoral TLC) Psychiatric: Negative for: Alert, Oriented x 3, Normal Insight, Normal Concentration Objective - Vital Signs/Intake and Output Vital Signs (last 24 hours): Temp Pulse Resp BP Pulse Ox 98.1 F 88 21 128/72 100 10/19/18 18:30 10/19/18 19:22 10/19/18 19:22 10/19/18 19:22 10/19/18 19:22 Intake and Output: 10/19/18 10/20/18 18:59 06:59 Intake Total 840 120 Balance 840 120 - Medications Medications: Current Medications Acetaminophen (Tylenol 325mg Tab) 650 mg PO Q6 PRN PRN Reason: pain+fever Last Admin: 10/19/18 11:47 Dose: 650 mg Albuterol/Ipratropium (Duoneb 3 Mg/0.5 Mg (3 Ml) Ud) 3 ml INH RQ6 [facility] Last Admin: 10/19/18 13:56 Dose: 3 ml Aspirin (Aspirin Chewable) 81 mg PO DAILY [facility] Last Admin: 10/19/18 11:41 Dose: 81 mg Epoetin Dedrick (Procrit) 10,000 unit IV MWF [facility] Last Admin: 10/19/18 19:25 Dose: 10,000 unit Heparin Sodium (Porcine) (Heparin) 5,000 units SC Q12 [facility] Last Admin: 10/19/18 10:06 Dose: Not Given Hydralazine HCl (Apresoline) 50 mg PO Q12 [facility] Last Admin: 10/19/18 11:23 Dose: Not Given Hydrocortisone (Cortef) 10 mg PO DAILY [facility] Last Admin: 10/19/18 11:41 Dose: 10 mg Ferric Sodium Gluconate Complex 125 mg/ Sodium Chloride 110 mls @ 110 mls/hr IVPB Q24H [facility] Stop: 10/23/18 11:31 Last Admin: 10/19/18 11:47 Dose: 110 mls/hr Vancomycin HCl 1 gm/ Sodium (Chloride) 250 mls @ 166.7 mls/hr IVPB MWF [facility]; Protocol Last Admin: 10/17/18 08:00 Dose: 166.7 mls/hr Cefepime HCl 1 gm/ Dextrose 50 mls @ 100 mls/hr IVPB DAILY [facility]; Protocol Last Admin: 10/19/18 11:22 Dose: 100 mls/hr Insulin Aspart (Novolog) 0 unit SC Q6H [facility]; Protocol Last Admin: 10/19/18 17:33 Dose: 4 units Insulin Detemir (Levemir) 30 unit SC Q12 [facility] Last Admin: 10/19/18 10:07 Dose: Not Given Levetiracetam (Keppra) 750 mg PO BID [facility] Last Admin: 10/19/18 17:03 Dose: 750 mg Levothyroxine Sodium (Synthroid) 50 mcg PO 0600 [facility] Last Admin: 10/19/18 06:18 Dose: 50 mcg Lorazepam (Ativan) 1 mg IVP Q6H PRN PRN Reason: Anxiety Last Admin: 10/19/18 17:38 Dose: 1 mg Metoprolol Tartrate (Lopressor) 25 mg NG BID [facility] Last Admin: 10/19/18 17:04 Dose: Not Given Mupirocin (Bactroban 2% Nasal) 0.25 gm HILLARY BID [facility] Last Admin: 10/19/18 17:04 Dose: 0.25 gm Pantoprazole Sodium (Protonix Susp) 40 mg PO 0600 [facility] Last Admin: 10/19/18 06:17 Dose: 40 mg Rosuvastatin Calcium (Crestor) 10 mg PO HS [facility] Last Admin: 10/18/18 22:45 Dose: 10 mg - Labs Labs: 10/19/18 06:24 10/19/18 06:21 PT 14.1 SECONDS (9.7-12.2) H 10/19/18 06:21 INR 1.3 10/19/18 06:21 APTT 38 SECONDS (21-34) H 10/19/18 06:21 Assessment and Plan - Assessment and Plan (Free Text) Assessment: Assessment/Plan - Assessment and Plan (Free Text) Plan: Plan: Patient is a 72 yo female w/ PMH of CKD5, CHF, CAD s/p stents, pituiatry adenoma s/p resection, DM2 admitted for respiratory and cardiac arrest s/p permacath placement and AVF on 10-05. s/p permacath on 10-11-18; possible AMS due to anoxic brain injury, now on HD MWF, tracheostomy done on 10/18/17, planning for PEG placement by GI Neuro Intubated and Sedated continue Keppra 750 mg PO Daily Blu Ryan, Neurology CT head - no definitive internal acute intracranial findings as discussed above. continue to monitor patient's mental status CV Hydralazine 50mg PO Q8H Metoprolol 25mg NG BID Crestor Aspirin Chest Xray portable repeated - no acute inflitrate Pulm Improved chest xray - official report pending Intubated; Vent settings as per ICU Tracheostomy 10/18 Duoneb q6 hydrocortisone GI not feeding well with tube feedings eval for PEG tube placement - Dr Millard possibly to be done in the am continue Tube feeds Protonix Heme EPO w/ Dialysis MWF Ferric sodium drip Renal ESRD- changed to MWF sessions EPO MWF Bumex 2mg [address] Segundo Endo Levemir 30 SC Q12 Insulin regular SC Q4 Levothyroxine 50 PO daily Hydrocortisone 10 mg PO daily Q6 accuchecks ID +cx on 10-07 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 asp Cefepime Vanc with dialysis (MWF) Mupirocin 2% nasal Dr Barrios on case Bcx no growth after 3 days DVT ppx: Heparin GI ppx: Protonix
[2018-10-19] MEDS: Propofol 10 mg/ml 1,000 MG/100 ML VIAL IV PRN (23:06)
[2018-10-20] MEDS: (Novolog) Insulin Aspart, Recombinant 100 u/ml 10 ml vial SC SCH ×4 (00:14→18:03)
[2018-10-20] MEDS: Albuterol-Ipratrop 3 mg / 0.5 (3 ml) UD INH SCH ×4 (02:40→19:26)
[2018-10-20 05:46] LABS: BASO # 0.1 K/uL (0.0-0.2); BASO % 0.8 % (0.0-2.0); EOS # 0.8 K/uL (0.0-0.7); EOS % 5.8 % (0.0-4.0); HEMOGLOBIN 10.4 g/dL (11.0-16.0); LYMPH % 14.7 % (20.0-40.0); MEAN CELL VOLUME 88.7 fL (81.0-99.0); MEAN CORPUSCULAR HEMOGLOBIN 27.7 pg (27.0-31.0); MEAN CORPUSCULAR HGB CONC 31.3 g/dL (33.0-37.0); MEAN PLATELET VOLUME 9.4 fL (7.2-11.7); MONO # 1.2 K/uL (0.0-0.8); MONO % 8.9 % (0.0-10.0); NEUT # 9.6 K/uL (1.8-7.0); NEUT % 69.8 % (50.0-75.0); NRBC % 0.1 % (0.0-2.0); RBC 3.75 Mil/uL (3.80-5.20); RED CELL DISTRIBUTION WIDTH 17.5 % (11.5-14.5); WHITE BLOOD COUNT 13.8 K/uL (4.8-10.8)
[2018-10-20] MEDS: Levothyroxine 50 MCG TAB PO SCH (06:16)
[2018-10-20] MEDS: Pantoprazole 40 mg Susp UD PO SCH (06:16)
[2018-10-20 06:26] LABS: ALB/GLOB RATIO 1.1 (1.0-2.1); ALBUMIN 3.8 g/dL (3.5-5.0); CALCIUM 8.4 mg/dl (8.6-10.4)
--- NOTE | 2018-10-20 09:39 | CP.PCM.PN ---
Subjective - Date & Time of Evaluation Date of Evaluation: 10/20/18 Time of Evaluation: 09:37 - Subjective Subjective: pt seen and examined on vent, Fio2 40% restless had HD yesterday ROS- unable to obtain as non verbal Objective - Vital Signs/Intake and Output Vital Signs (last 24 hours): Temp Pulse Resp BP Pulse Ox 99.4 F 82 15 111/47 L 97 10/20/18 04:00 10/20/18 08:00 10/20/18 08:00 10/20/18 07:30 10/20/18 07:30 Intake and Output: 10/20/18 10/20/18 06:59 18:59 Intake Total 1239.5 45 Output Total 0 Balance 1239.5 45 - Medications Medications: Current Medications Acetaminophen (Tylenol 325mg Tab) 650 mg PO Q6 PRN PRN Reason: pain+fever Last Admin: 10/19/18 11:47 Dose: 650 mg Albuterol/Ipratropium (Duoneb 3 Mg/0.5 Mg (3 Ml) Ud) 3 ml INH RQ6 [facility] Last Admin: 10/20/18 08:33 Dose: 3 ml Aspirin (Aspirin Chewable) 81 mg PO DAILY [facility] Last Admin: 10/19/18 11:41 Dose: 81 mg Epoetin Dedrick (Procrit) 10,000 unit IV F [facility] Last Admin: 10/19/18 19:25 Dose: 10,000 unit Heparin Sodium (Porcine) (Heparin) 5,000 units SC Q12 [facility] Last Admin: 10/19/18 22:30 Dose: 5,000 units Hydrocortisone (Cortef) 10 mg PO DAILY [facility] Last Admin: 10/19/18 11:41 Dose: 10 mg Ferric Sodium Gluconate Complex 125 mg/ Sodium Chloride 110 mls @ 110 mls/hr IVPB Q24H [facility] Stop: 10/23/18 11:31 Last Admin: 10/19/18 11:47 Dose: 110 mls/hr Vancomycin HCl 1 gm/ Sodium (Chloride) 250 mls @ 166.7 mls/hr IVPB MWF [facility]; Protocol Last Admin: 10/20/18 00:16 Dose: 166.7 mls/hr Cefepime HCl 1 gm/ Dextrose 50 mls @ 100 mls/hr IVPB DAILY [facility]; Protocol Last Admin: 10/19/18 11:22 Dose: 100 mls/hr Propofol (Diprivan) 1,000 mg in 100 mls @ 2.682 mls/hr IV .Q24H PRN; Protocol PRN Reason: TITRATE PER MD ORDER Last Titration: 10/20/18 07:50 Dose: 15 mcg/kg/min, 8.046 mls/hr Insulin Aspart (Novolog) 0 unit SC Q6H [facility]; Protocol Last Admin: 10/20/18 06:21 Dose: 3 units Insulin Detemir (Levemir) 30 unit SC Q12 [facility] Last Admin: 10/19/18 22:31 Dose: 30 u Levetiracetam (Keppra) 750 mg PO BID [facility] Last Admin: 10/19/18 17:03 Dose: 750 mg Levothyroxine Sodium (Synthroid) 50 mcg PO 0600 [facility] Last Admin: 10/20/18 06:16 Dose: 50 mcg Lorazepam (Ativan) 1 mg IVP Q6H PRN PRN Reason: Anxiety Last Admin: 10/19/18 17:38 Dose: 1 mg Losartan Potassium (Cozaar) 25 mg PO DAILY [facility] Metoprolol Tartrate (Lopressor) 12.5 mg NG BID [facility] Mupirocin (Bactroban 2% Nasal) 0.25 gm HILLARY BID [facility] Last Admin: 10/19/18 17:04 Dose: 0.25 gm Pantoprazole Sodium (Protonix Susp) 40 mg PO 0600 [facility] Last Admin: 10/20/18 06:16 Dose: 40 mg Quetiapine Fumarate (Seroquel) 25 mg PO DAILY [facility] Rosuvastatin Calcium (Crestor) 10 mg PO HS [facility] Last Admin: 10/19/18 22:32 Dose: 10 mg - Labs Labs: 10/20/18 05:40 10/20/18 05:40 PT 14.1 SECONDS (9.7-12.2) H 10/19/18 06:21 INR 1.3 10/19/18 06:21 APTT 38 SECONDS (21-34) H 10/19/18 06:21 - Constitutional Appears: Non-toxic, Chronically Ill - Head Exam Head Exam: ATRAUMATIC, NORMOCEPHALIC - Eye Exam Eye Exam: EOMI, PERRL - ENT Exam ENT Exam: Mucous Membranes Moist - Neck Exam Neck Exam: absent: Lymphadenopathy Additional comments: trach in place - Respiratory Exam Respiratory Exam: Clear to Ausculation Bilateral. absent: Rhonchi, Wheezes - Cardiovascular Exam Cardiovascular Exam: REGULAR RHYTHM, +S1, +S2. absent: Murmur - GI/Abdominal Exam GI & Abdominal Exam: Soft. absent: Distended, Tenderness - Extremities Exam Extremities Exam: absent: Joint Swelling, Pedal Edema - Neurological Exam Neurological Exam: absent: Alert, Awake, Oriented x3 - Psychiatric Exam Additional comments: unable to assess due to mental status - Skin Skin Exam: Warm. absent: Rash Assessment and Plan (1) Diabetic nephropathy associated with type 2 diabetes mellitus Status: Acute (2) ESRD (end stage renal disease) Status: Acute (3) Respiratory failure Status: Acute (4) Altered mental state Status: Acute (5) CAD (coronary artery disease) Status: Acute (6) Cardiomyopathy Status: Acute - Assessment and Plan (Free Text) Plan: Maintain HD MWF, next HD monday vent management as per ICU appears euvolemic on exam tolerating tube feeds
[2018-10-20] MEDS: Mupirocin 2% Ointment (NASAL) NAS SCH ×2 (10:26→19:30)
[2018-10-20] MEDS: levETIRAcetam 100 mg/ml (5ml) Oral Syringe PO SCH ×2 (10:27→18:04)
[2018-10-20] MEDS: Insulin Detemir 100 units/ml Vial (Levemir) SC SCH ×2 (10:28→21:20)
[2018-10-20] MEDS: Propofol 10 mg/ml 1,000 MG/100 ML VIAL IV PRN ×2 (10:40→23:05)
[2018-10-20] MEDS: Ferric Sodium Gluconat Complex 125 MG in Sodium Chloride 0.9% 100 ML IVPB SCH (13:11)
--- NOTE | 2018-10-20 19:03 | CP.PCM.PN ---
Subjective - Date & Time of Evaluation Date of Evaluation: 10/20/18 Time of Evaluation: 14:00 - Subjective Subjective: dictated Objective - Vital Signs/Intake and Output Vital Signs (last 24 hours): Temp Pulse Resp BP Pulse Ox 99.5 F 80 14 99/49 L 98 10/20/18 16:00 10/20/18 17:00 10/20/18 17:00 10/20/18 16:59 10/20/18 17:00 Intake and Output: 10/20/18 10/21/18 18:59 06:59 Intake Total 706.2 Output Total 1 Balance 705.2 - Medications Medications: Current Medications Acetaminophen (Tylenol 325mg Tab) 650 mg PO Q6 PRN PRN Reason: pain+fever Last Admin: 10/19/18 11:47 Dose: 650 mg Albuterol/Ipratropium (Duoneb 3 Mg/0.5 Mg (3 Ml) Ud) 3 ml INH RQ6 [facility] Last Admin: 10/20/18 13:47 Dose: 3 ml Aspirin (Aspirin Chewable) 81 mg PO DAILY [facility] Last Admin: 10/20/18 10:26 Dose: 81 mg Epoetin Dedrick (Procrit) 10,000 unit IV MWF [facility] Last Admin: 10/19/18 19:25 Dose: 10,000 unit Heparin Sodium (Porcine) (Heparin) 5,000 units SC Q12 [facility] Last Admin: 10/20/18 10:29 Dose: 5,000 units Hydrocortisone (Cortef) 10 mg PO DAILY [facility] Last Admin: 10/20/18 10:27 Dose: 10 mg Ferric Sodium Gluconate Complex 125 mg/ Sodium Chloride 110 mls @ 110 mls/hr IVPB Q24H [facility] Stop: 10/23/18 11:31 Last Admin: 10/20/18 13:11 Dose: 110 mls/hr Vancomycin HCl 1 gm/ Sodium (Chloride) 250 mls @ 166.7 mls/hr IVPB MWF [facility]; Protocol Last Admin: 10/20/18 00:16 Dose: 166.7 mls/hr Cefepime HCl 1 gm/ Dextrose 50 mls @ 100 mls/hr IVPB DAILY [facility]; Protocol Last Admin: 10/20/18 10:05 Dose: 100 mls/hr Propofol (Diprivan) 1,000 mg in 100 mls @ 2.682 mls/hr IV .Q24H PRN; Protocol PRN Reason: TITRATE PER MD ORDER Last Titration: 10/20/18 18:30 Dose: 10 mcg/kg/min, 5.364 mls/hr Insulin Aspart (Novolog) 0 unit SC Q6H [facility]; Protocol Last Admin: 10/20/18 18:03 Dose: 2 units Insulin Detemir (Levemir) 30 unit SC Q12 [facility] Last Admin: 10/20/18 10:28 Dose: 30 u Levetiracetam (Keppra) 750 mg PO BID [facility] Last Admin: 10/20/18 18:04 Dose: 750 mg Levothyroxine Sodium (Synthroid) 50 mcg PO 0600 [facility] Last Admin: 10/20/18 06:16 Dose: 50 mcg Lorazepam (Ativan) 1 mg IVP Q6H PRN PRN Reason: Anxiety Last Admin: 10/19/18 17:38 Dose: 1 mg Losartan Potassium (Cozaar) 25 mg PO DAILY [facility] Last Admin: 10/20/18 10:30 Dose: Not Given Metoprolol Tartrate (Lopressor) 12.5 mg NG BID [facility] Last Admin: 10/20/18 18:02 Dose: 12.5 mg Mupirocin (Bactroban 2% Nasal) 0.25 gm HILLARY BID [facility] Last Admin: 10/20/18 10:26 Dose: 0.25 gm Pantoprazole Sodium (Protonix Susp) 40 mg PO 0600 [facility] Last Admin: 10/20/18 06:16 Dose: 40 mg Quetiapine Fumarate (Seroquel) 25 mg PO DAILY [facility] Last Admin: 10/20/18 10:26 Dose: 25 mg Rosuvastatin Calcium (Crestor) 10 mg PO HS [facility] Last Admin: 10/19/18 22:32 Dose: 10 mg - Labs Labs: 10/20/18 05:40 10/20/18 05:40 PT 14.1 SECONDS (9.7-12.2) H 10/19/18 06:21 INR 1.3 10/19/18 06:21 APTT 38 SECONDS (21-34) H 10/19/18 06:21
--- NOTE | 2018-10-20 23:46 | PN ---
DATE: 10/20/2018 INFECTIOUS DISEASE FOLLOWUP SUBJECTIVE: The patient was seen today. She remains unresponsive. She has these involuntary movements. She is on a trach-vent. She remains unresponsive. PHYSICAL EXAMINATION: GENERAL: She is restless and nonverbal. VITAL SIGNS: Her T-max was 100.5, today 99.5. However, blood pressure remains on the low side, 90/35. Pulse is 81. Respirations are on the trach-vent, 14. HEENT: Head is atraumatic and normocephalic. Eyes are closed. NECK: Supple. JVP is flat. LUNGS: Clear. No crackles or rales heard. HEART: S1 and S2 are regular. ABDOMEN: Soft and nontender. No guarding. No rigidity present. Trach site appears unremarkable. EXTREMITIES: Have no edema. She has foot protectors on. LABORATORY DATA: Labs show white count is 13.8, hemoglobin 10.4, hematocrit 33.3, platelet count is 309. Sodium is 134, potassium 4.2, chlorides are 96, CO2 is 31, creatinine remains 3.3, and BUN is 26. Her sugar is 190. She had sputum resent from 10/19/2018, which has no growth. Wound culture was negative from the catheter site on 10/19/2018 and blood cultures during dialysis have been negative. She does not make any urine, I am told. ASSESSMENT AND PLAN: At this time, her medications, she is on Maxipime. I would leave the vancomycin on. Vancomycin is on Monday, Monday and Monday. She is on Maxipime at this time. We will continue present antibiotics for now. Cultures have been all negative, and white count is decreasing. Her last chest x-ray was on 10/18/2018 and shows nasogastric tube terminates apparently above the left hemidiaphragm and should be advanced or replaced. No acute infiltrates. I will follow up with the nurse about this finding. She was seen by Dr. Millard yesterday. We plan to put a percutaneous endoscopic gastrostomy when she is afebrile. She remains with low blood pressure. I need to monitor that closely at this time and to continue the antibiotics. She has end-stage renal disease. She has probably anoxic encephalopathy or she is sedated. She has these unprotected involuntary movements. Sara Barrios MD [facility] # [id number]
--- NOTE | 2018-10-21 00:05 | CP.PCM.PN ---
Subjective - Date & Time of Evaluation Date of Evaluation: 10/20/18 Time of Evaluation: 16:15 - Subjective Subjective: Patient is seen and examined at bedside. Intubated and sedated Physical Examination - Physical Exam Head: Positive for: Atraumatic, Normocephalic Extroacular Muscles: Positive for: EOMI (dropping eyelid left) Conjunctiva: Positive for: Normal Mouth: Positive for: Dry, Other (intubated ETT in place) Respiratory/Chest: Positive for: Decreased Breath Sounds, Other (intubated ). Negative for: Respiratory Distress, Accessory Muscle Use, Tachypneic Cardiovascular: Positive for: Regular Rate and Rhythm, Normal S1, S2 Abdomen: Positive for: Normal Bowel Sounds. Negative for: Tenderness, Distention, Rebound, Guarding Upper Extremity: Positive for: Normal Inspection. Negative for: Cyanosis, Edema Lower Extremity: Positive for: Normal Inspection. Negative for: Edema Neurological: Negative for: GCS=15, CN II-XII Intact, Speech Normal Skin: Positive for: Warm, Dry, Normal Color, Other (permacath in place, right femoral TLC) Psychiatric: Negative for: Alert, Oriented x 3, Normal Insight, Normal Concentration Assessment and Plan - Assessment and Plan (Free Text) Assessment: Assessment/Plan - Assessment and Plan (Free Text) Plan: Plan: Patient is a 72 yo female w/ PMH of CKD5, CHF, CAD s/p stents, pituiatry adenoma s/p resection, DM2 admitted for respiratory and cardiac arrest s/p permacath placement and AVF on 10-05. s/p permacath on 10-11-18; possible AMS due to anoxic brain injury, now on HD MWF, tracheostomy done on 10/18/17, planning for PEG placement by GI Neuro Intubated and Sedated continue Keppra 750 mg PO Daily Blu Ryan, Neurology CT head - no definitive internal acute intracranial findings as discussed above. continue to monitor patient's mental status CV Hydralazine 50mg PO Q8H Metoprolol 25mg NG BID Crestor Aspirin Chest Xray portable repeated - no acute inflitrate Pulm Improved chest xray - official report pending Intubated; Vent settings as per ICU Tracheostomy 10/18 Duoneb q6 hydrocortisone GI not feeding well with tube feedings eval for PEG tube placement - Dr Millard possibly to be done in the am continue Tube feeds Protonix Heme EPO w/ Dialysis MWF Ferric sodium drip Renal ESRD- changed to MWF sessions EPO MWF Bumex 2mg [address] Segundo Endo Levemir 30 SC Q12 Insulin regular SC Q4 Levothyroxine 50 PO daily Hydrocortisone 10 mg PO daily Q6 accuchecks ID +cx on 1-6 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 asp Cefepime Vanc with dialysis (MWF) Mupirocin 2% nasal Dr Barrios on case Bcx no growth after 3 days DVT ppx: Heparin GI ppx: Protonix Objective - Vital Signs/Intake and Output Vital Signs (last 24 hours): Temp Pulse Resp BP Pulse Ox 99 F 86 15 95/53 L 94 L 10/20/18 20:00 10/20/18 23:00 10/20/18 23:00 10/20/18 22:59 10/20/18 23:00 Intake and Output: 10/20/18 10/21/18 18:59 06:59 Intake Total 1202.0 314.2 Output Total 2 Balance 1200.0 314.2 - Medications Medications: Current Medications Acetaminophen (Tylenol 325mg Tab) 650 mg PO Q6 PRN PRN Reason: pain+fever Last Admin: 10/19/18 11:47 Dose: 650 mg Albuterol/Ipratropium (Duoneb 3 Mg/0.5 Mg (3 Ml) Ud) 3 ml INH RQ6 [facility] Last Admin: 10/20/18 19:26 Dose: 3 ml Aspirin (Aspirin Chewable) 81 mg PO DAILY [facility] Last Admin: 10/20/18 10:26 Dose: 81 mg Epoetin Dedrick (Procrit) 10,000 unit IV MWF [facility] Last Admin: 10/19/18 19:25 Dose: 10,000 unit Heparin Sodium (Porcine) (Heparin) 5,000 units SC Q12 [facility] Last Admin: 10/20/18 21:19 Dose: 5,000 units Hydrocortisone (Cortef) 10 mg PO DAILY [facility] Last Admin: 10/20/18 10:27 Dose: 10 mg Ferric Sodium Gluconate Complex 125 mg/ Sodium Chloride 110 mls @ 110 mls/hr IVPB Q24H [facility] Stop: 10/23/18 11:31 Last Admin: 10/20/18 13:11 Dose: 110 mls/hr Vancomycin HCl 1 gm/ Sodium (Chloride) 250 mls @ 166.7 mls/hr IVPB MWF [facility]; Protocol Last Admin: 10/20/18 00:16 Dose: 166.7 mls/hr Cefepime HCl 1 gm/ Dextrose 50 mls @ 100 mls/hr IVPB DAILY [facility]; Protocol Last Admin: 10/20/18 10:05 Dose: 100 mls/hr Propofol (Diprivan) 1,000 mg in 100 mls @ 2.682 mls/hr IV .Q24H PRN; Protocol PRN Reason: TITRATE PER MD ORDER Last Admin: 10/20/18 23:05 Dose: 20.13 mcg/kg/min, 10.8 mls/hr Insulin Aspart (Novolog) 0 unit SC Q6H [facility]; Protocol Last Admin: 10/20/18 18:03 Dose: 2 units Insulin Detemir (Levemir) 30 unit SC Q12 [facility] Last Admin: 10/20/18 21:20 Dose: 30 u Levetiracetam (Keppra) 750 mg PO BID [facility] Last Admin: 10/20/18 18:04 Dose: 750 mg Levothyroxine Sodium (Synthroid) 50 mcg PO 0600 [facility] Last Admin: 10/20/18 06:16 Dose: 50 mcg Lorazepam (Ativan) 1 mg IVP Q6H PRN PRN Reason: Anxiety Last Admin: 10/19/18 17:38 Dose: 1 mg Losartan Potassium (Cozaar) 25 mg PO DAILY [facility] Last Admin: 10/20/18 10:30 Dose: Not Given Metoprolol Tartrate (Lopressor) 12.5 mg NG BID [facility] Last Admin: 10/20/18 18:02 Dose: 12.5 mg Mupirocin (Bactroban 2% Nasal) 0.25 gm HILLARY BID [facility] Last Admin: 10/20/18 19:30 Dose: 0.25 gm Pantoprazole Sodium (Protonix Susp) 40 mg PO 0600 [facility] Last Admin: 10/20/18 06:16 Dose: 40 mg Quetiapine Fumarate (Seroquel) 25 mg PO DAILY [facility] Last Admin: 10/20/18 10:26 Dose: 25 mg Rosuvastatin Calcium (Crestor) 10 mg PO HS [facility] Last Admin: 10/20/18 21:20 Dose: 10 mg - Labs Labs: 10/20/18 05:40 10/20/18 05:40 PT 14.1 SECONDS (9.7-12.2) H 10/19/18 06:21 INR 1.3 10/19/18 06:21 APTT 38 SECONDS (21-34) H 10/19/18 06:21
[2018-10-21] MEDS: (Novolog) Insulin Aspart, Recombinant 100 u/ml 10 ml vial SC SCH ×4 (01:00→17:51)
[2018-10-21] MEDS: Albuterol-Ipratrop 3 mg / 0.5 (3 ml) UD INH SCH ×3 (02:56→13:39)
[2018-10-21 05:20] LABS: ABG ALLEN TEST POS; ARTERIAL BLOOD GAS HCO3 28.1 mmol/L (21-28); ARTERIAL BLOOD GAS O2 SAT 98.2 % (95-98); ARTERIAL BLOOD GAS PCO2 41 mm/Hg (35-45); ARTERIAL BLOOD GAS PH 7.45 (7.35-7.45); ARTERIAL BLOOD GAS PO2 72 mm/Hg (80-100); ARTERIAL BLOOD GAS TCO2 29.8 mmol/L (22-28)
[2018-10-21] MEDS: Levothyroxine 50 MCG TAB PO SCH (05:53)
[2018-10-21] MEDS: Pantoprazole 40 mg Susp UD PO SCH (05:54)
[2018-10-21 06:24] LABS: BASO # 0.2 K/uL (0.0-0.2); BASO % 1.5 % (0.0-2.0); EOS # 0.8 K/uL (0.0-0.7); EOS % 8.4 % (0.0-4.0); HEMOGLOBIN 11.2 g/dL (11.0-16.0); LYMPH # 2.2 K/uL (1.0-4.3); LYMPH % 21.3 % (20.0-40.0); MEAN CELL VOLUME 90.2 fL (81.0-99.0); MEAN CORPUSCULAR HEMOGLOBIN 28.2 pg (27.0-31.0); MEAN CORPUSCULAR HGB CONC 31.2 g/dL (33.0-37.0); MEAN PLATELET VOLUME 9.7 fL (7.2-11.7); MONO # 1.1 K/uL (0.0-0.8); MONO % 10.7 % (0.0-10.0); NEUT # 5.9 K/uL (1.8-7.0); NEUT % 58.1 % (50.0-75.0); NRBC % 0.1 % (0.0-2.0); RBC 3.98 Mil/uL (3.80-5.20); RED CELL DISTRIBUTION WIDTH 18.7 % (11.5-14.5); WHITE BLOOD COUNT 10.1 K/uL (4.8-10.8)
[2018-10-21 06:53] LABS: ALB/GLOB RATIO 1.1 (1.0-2.1); ALBUMIN 3.9 g/dL (3.5-5.0); CALCIUM 8.5 mg/dl (8.6-10.4)
[2018-10-21] MEDS: Propofol 10 mg/ml 1,000 MG/100 ML VIAL IV PRN ×2 (07:24→16:50)
[2018-10-21] MEDS: Mupirocin 2% Ointment (NASAL) NAS SCH ×2 (10:19→17:26)
[2018-10-21] MEDS: Insulin Detemir 100 units/ml Vial (Levemir) SC SCH ×2 (10:24→21:31)
[2018-10-21] MEDS: Ferric Sodium Gluconat Complex 125 MG in Sodium Chloride 0.9% 100 ML IVPB SCH (11:22)
[2018-10-21] MEDS: levETIRAcetam 100 mg/ml (5ml) Oral Syringe PO SCH ×2 (11:23→17:26)
--- NOTE | 2018-10-21 11:42 | CP.PCM.PN ---
Subjective - Date & Time of Evaluation Date of Evaluation: 10/21/18 Time of Evaluation: 11:37 - Subjective Subjective: Temp spike last night, recent blood cultures negative, still on diprivan, not following still, peg on hold due to temp spike. Objective - Vital Signs/Intake and Output Vital Signs (last 24 hours): Temp Pulse Resp BP Pulse Ox 99.6 F 81 17 97/43 L 94 L 10/21/18 08:00 10/21/18 10:00 10/21/18 10:00 10/21/18 09:32 10/21/18 10:00 Intake and Output: 10/21/18 10/21/18 06:59 18:59 Intake Total 869.8 323.2 Balance 869.8 323.2 - Medications Medications: Current Medications Acetaminophen (Tylenol 325mg Tab) 650 mg PO Q6 PRN PRN Reason: pain+fever Last Admin: 10/19/18 11:47 Dose: 650 mg Albuterol/Ipratropium (Duoneb 3 Mg/0.5 Mg (3 Ml) Ud) 3 ml INH RQ6 [facility] Last Admin: 10/21/18 07:59 Dose: 3 ml Aspirin (Aspirin Chewable) 81 mg PO DAILY [facility] Last Admin: 10/21/18 10:20 Dose: 81 mg Epoetin Dedrick (Procrit) 10,000 unit IV MWF [facility] Last Admin: 10/19/18 19:25 Dose: 10,000 unit Heparin Sodium (Porcine) (Heparin) 5,000 units SC Q12 [facility] Last Admin: 10/21/18 10:20 Dose: 5,000 units Hydrocortisone (Cortef) 10 mg PO DAILY [facility] Last Admin: 10/21/18 10:27 Dose: 10 mg Ferric Sodium Gluconate Complex 125 mg/ Sodium Chloride 110 mls @ 110 mls/hr IVPB Q24H [facility] Stop: 10/23/18 11:31 Last Admin: 10/21/18 11:22 Dose: 110 mls/hr Vancomycin HCl 1 gm/ Sodium (Chloride) 250 mls @ 166.7 mls/hr IVPB MWF [facility]; Protocol Last Admin: 10/20/18 00:16 Dose: 166.7 mls/hr Cefepime HCl 1 gm/ Dextrose 50 mls @ 100 mls/hr IVPB DAILY [facility]; Protocol Last Admin: 10/21/18 10:23 Dose: 100 mls/hr Propofol (Diprivan) 1,000 mg in 100 mls @ 2.682 mls/hr IV .Q24H PRN; Protocol PRN Reason: TITRATE PER MD ORDER Last Admin: 10/21/18 07:24 Dose: 20.13 mcg/kg/min, 10.8 mls/hr Insulin Aspart (Novolog) 0 unit SC Q6H [facility]; Protocol Last Admin: 10/21/18 06:16 Dose: 3 units Insulin Detemir (Levemir) 30 unit SC Q12 [facility] Last Admin: 10/21/18 10:24 Dose: 30 u Levetiracetam (Keppra) 750 mg PO BID [facility] Last Admin: 10/21/18 11:23 Dose: 750 mg Levothyroxine Sodium (Synthroid) 50 mcg PO 0600 [facility] Last Admin: 10/21/18 05:53 Dose: 50 mcg Lorazepam (Ativan) 1 mg IVP Q6H PRN PRN Reason: Anxiety Last Admin: 10/19/18 17:38 Dose: 1 mg Losartan Potassium (Cozaar) 25 mg PO DAILY [facility] Last Admin: 10/21/18 10:20 Dose: 25 mg Metoprolol Tartrate (Lopressor) 12.5 mg NG BID [facility] Last Admin: 10/21/18 10:20 Dose: 12.5 mg Mupirocin (Bactroban 2% Nasal) 0.25 gm HILLARY BID [facility] Last Admin: 10/21/18 10:19 Dose: 0.25 gm Pantoprazole Sodium (Protonix Susp) 40 mg PO 0600 [facility] Last Admin: 10/21/18 05:54 Dose: 40 mg Quetiapine Fumarate (Seroquel) 25 mg PO DAILY [facility] Last Admin: 10/21/18 10:22 Dose: 25 mg Rosuvastatin Calcium (Crestor) 10 mg PO HS [facility] Last Admin: 10/20/18 21:20 Dose: 10 mg - Labs Labs: 10/21/18 06:19 10/21/18 06:19 PT 14.1 SECONDS (9.7-12.2) H 10/19/18 06:21 INR 1.3 10/19/18 06:21 APTT 38 SECONDS (21-34) H 10/19/18 06:21 - Additional Findings Additional findings: * HEENT PUSHPA * Neck trache in place * Chest clear b/l * CVS regular * PA soft, bs present * Ext no edema * Skin normal turgor * [employer]ER some thrashing movements, no purposeful movements. Assessment and Plan - Assessment and Plan (Free Text) Assessment: * Anoxic encephalopathy * ESRD on HD has permacath * S/p trache due to above * HTN * DM * Temp spike on vanco and cefepime * PEG is being planned when afebrile Plan: * Continue abx, keppra * CXR * Supportive care, hd * Sedation prn * GI/DVT prophylaxis * See orders for detail.
--- NOTE | 2018-10-21 13:12 | RAD ---
Date of service: 10/21/2018 HISTORY: Fever, s status post tracheostomy COMPARISON: Comparison made with prior study dated 10/18/2018. FINDINGS: In situ tracheostomy tube in good position.. No change right IJ dialysis catheter with tips in the region of the right atrium.. In situ NGT, the tip of which has not been included on this film though distal aspect does lie well below EG junction. LUNGS: Pulmonary venous congestive changes. PLEURA: Mild significant pleural effusion identified, no pneumothorax apparent. CARDIOVASCULAR: No aortic atherosclerotic calcification present. Cardiomegaly.. No pulmonary vascular congestion. OSSEOUS STRUCTURES: No significant abnormalities. VISUALIZED UPPER ABDOMEN: Normal. OTHER FINDINGS: None. IMPRESSION: Tracheostomy tube and right IJ dialysis catheter unchanged.. In situ NGT tip of which has not been included though distal aspect does lie well below EG junction. Mild pulmonary venous congestive changes felt be present. Cardiomegaly. Mild central pulmonary venous congestive changes.
--- NOTE | 2018-10-21 22:05 | CP.PCM.PN ---
Subjective - Date & Time of Evaluation Date of Evaluation: 10/21/18 Time of Evaluation: 17:20 - Subjective Subjective: Patient is seen and examined at bedside. Intubated and sedated Family at bed side Physical Examination - Physical Exam Head: Positive for: Atraumatic, Normocephalic Extroacular Muscles: Positive for: EOMI (dropping eyelid left) Conjunctiva: Positive for: Normal Mouth: Positive for: Dry, Other (intubated ETT in place) Respiratory/Chest: Positive for: Decreased Breath Sounds, Other (intubated ). Negative for: Respiratory Distress, Accessory Muscle Use, Tachypneic Cardiovascular: Positive for: Regular Rate and Rhythm, Normal S1, S2 Abdomen: Positive for: Normal Bowel Sounds. Negative for: Tenderness, Distention, Rebound, Guarding Upper Extremity: Positive for: Normal Inspection. Negative for: Cyanosis, Edema Lower Extremity: Positive for: Normal Inspection. Negative for: Edema Neurological: Negative for: GCS=15, CN II-XII Intact, Speech Normal Skin: Positive for: Warm, Dry, Normal Color, Other (permacath in place, right femoral TLC) Psychiatric: Negative for: Alert, Oriented x 3, Normal Insight, Normal Concentration Assessment and Plan - Assessment and Plan (Free Text) Assessment: Assessment/Plan - Assessment and Plan (Free Text) Plan: Plan: Patient is a 72 yo female w/ PMH of CKD5, CHF, CAD s/p stents, pituiatry adenoma s/p resection, DM2 admitted for respiratory and cardiac arrest s/p permacath placement and AVF on 10-05. s/p permacath on 10-11-18; possible AMS due to anoxic brain injury, now on HD MWF, tracheostomy done on 10/18/17, planning for PEG placement by GI Neuro Intubated and Sedated continue Keppra 750 mg PO Daily Blu Ryan, Neurology CT head - no definitive internal acute intracranial findings as discussed above. continue to monitor patient's mental status CV Hydralazine 50mg PO Q8H Metoprolol 25mg NG BID Crestor Aspirin Chest Xray portable repeated - no acute inflitrate Pulm Improved chest xray - official report pending Intubated; Vent settings as per ICU Tracheostomy 10/18 Duoneb q6 hydrocortisone GI not feeding well with tube feedings eval for PEG tube placement - Dr Millard possibly to be done in the am continue Tube feeds Protonix Heme EPO w/ Dialysis MWF Ferric sodium drip Renal ESRD- changed to MWF sessions EPO MWF Bumex 2mg [address] Segundo Endo Levemir 30 SC Q12 Insulin regular SC Q4 Levothyroxine 50 PO daily Hydrocortisone 10 mg PO daily Q6 accuchecks ID +cx on 1-6 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 asp Cefepime Vanc with dialysis (MWF) Mupirocin 2% nasal Dr Barrios on case Bcx no growth after 3 days DVT ppx: Heparin GI ppx: Protonix Objective - Vital Signs/Intake and Output Vital Signs (last 24 hours): Temp Pulse Resp BP Pulse Ox 99.6 F 81 22 102/79 97 10/21/18 08:00 10/21/18 18:00 10/21/18 18:00 10/21/18 18:00 10/21/18 17:01 Intake and Output: 10/21/18 10/22/18 18:59 06:59 Intake Total 648.8 Output Total 0 Balance 648.8 - Medications Medications: Current Medications Acetaminophen (Tylenol 325mg Tab) 650 mg PO Q6 PRN PRN Reason: pain+fever Last Admin: 10/19/18 11:47 Dose: 650 mg Aspirin (Aspirin Chewable) 81 mg PO DAILY [facility] Last Admin: 10/21/18 10:20 Dose: 81 mg Epoetin Dedrick (Procrit) 10,000 unit IV MWF [facility] Last Admin: 10/19/18 19:25 Dose: 10,000 unit Heparin Sodium (Porcine) (Heparin) 5,000 units SC Q12 [facility] Last Admin: 10/21/18 21:32 Dose: 5,000 units Hydrocortisone (Cortef) 10 mg PO DAILY [facility] Last Admin: 10/21/18 10:27 Dose: 10 mg Ferric Sodium Gluconate Complex 125 mg/ Sodium Chloride 110 mls @ 110 mls/hr IVPB Q24H [facility] Stop: 10/23/18 11:31 Last Admin: 10/21/18 11:22 Dose: 110 mls/hr Vancomycin HCl 1 gm/ Sodium (Chloride) 250 mls @ 166.7 mls/hr IVPB MWF [facility]; Protocol Last Admin: 10/20/18 00:16 Dose: 166.7 mls/hr Cefepime HCl 1 gm/ Dextrose 50 mls @ 100 mls/hr IVPB DAILY [facility]; Protocol Last Admin: 10/21/18 10:23 Dose: 100 mls/hr Propofol (Diprivan) 1,000 mg in 100 mls @ 2.682 mls/hr IV .Q24H PRN; Protocol PRN Reason: TITRATE PER MD ORDER Last Admin: 10/21/18 16:50 Dose: 20.13 mcg/kg/min, 10.8 mls/hr Insulin Aspart (Novolog) 0 unit SC Q6H [facility]; Protocol Last Admin: 10/21/18 17:51 Dose: Not Given Insulin Detemir (Levemir) 30 unit SC Q12 [facility] Last Admin: 10/21/18 21:31 Dose: 30 u Levetiracetam (Keppra) 750 mg PO BID [facility] Last Admin: 10/21/18 17:26 Dose: 750 mg Levothyroxine Sodium (Synthroid) 50 mcg PO 0600 [facility] Last Admin: 10/21/18 05:53 Dose: 50 mcg Lorazepam (Ativan) 1 mg IVP Q6H PRN PRN Reason: Anxiety Last Admin: 10/19/18 17:38 Dose: 1 mg Losartan Potassium (Cozaar) 25 mg PO DAILY [facility] Last Admin: 10/21/18 10:20 Dose: 25 mg Metoprolol Tartrate (Lopressor) 12.5 mg NG BID [facility] Last Admin: 10/21/18 17:26 Dose: 12.5 mg Mupirocin (Bactroban 2% Nasal) 0.25 gm HILLARY BID [facility] Last Admin: 10/21/18 17:26 Dose: 0.25 gm Pantoprazole Sodium (Protonix Susp) 40 mg PO 0600 [facility] Last Admin: 10/21/18 05:54 Dose: 40 mg Quetiapine Fumarate (Seroquel) 25 mg PO DAILY [facility] Last Admin: 10/21/18 10:22 Dose: 25 mg Rosuvastatin Calcium (Crestor) 10 mg PO HS [facility] Last Admin: 10/21/18 21:32 Dose: 10 mg - Labs Labs: 10/21/18 06:19 10/21/18 06:19 PT 14.1 SECONDS (9.7-12.2) H 10/19/18 06:21 INR 1.3 10/19/18 06:21 APTT 38 SECONDS (21-34) H 10/19/18 06:21
[2018-10-22] MEDS: (Novolog) Insulin Aspart, Recombinant 100 u/ml 10 ml vial SC SCH ×4 (06:00→18:10)
[2018-10-22 06:20] LABS: BASO # 0.2 K/uL (0.0-0.2); BASO % 1.6 % (0.0-2.0); EOS # 1.3 K/uL (0.0-0.7); EOS % 13.2 % (0.0-4.0); HEMOGLOBIN 10.3 g/dL (11.0-16.0); LYMPH # 1.6 K/uL (1.0-4.3); LYMPH % 16.6 % (20.0-40.0); MEAN CELL VOLUME 90.6 fL (81.0-99.0); MEAN CORPUSCULAR HEMOGLOBIN 28.4 pg (27.0-31.0); MEAN CORPUSCULAR HGB CONC 31.3 g/dL (33.0-37.0); MEAN PLATELET VOLUME 10.1 fL (7.2-11.7); MONO # 1.4 K/uL (0.0-0.8); MONO % 14.8 % (0.0-10.0); NEUT # 5.2 K/uL (1.8-7.0); NEUT % 53.8 % (50.0-75.0); NRBC % 0.1 % (0.0-2.0); RBC 3.64 Mil/uL (3.80-5.20); RED CELL DISTRIBUTION WIDTH 18.7 % (11.5-14.5); WHITE BLOOD COUNT 9.7 K/uL (4.8-10.8)
[2018-10-22] MEDS: Levothyroxine 50 MCG TAB PO SCH (06:20)
[2018-10-22] MEDS: Pantoprazole 40 mg Susp UD PO SCH (06:20)
[2018-10-22 06:37] LABS: ALB/GLOB RATIO 1.1 (1.0-2.1); ALBUMIN 3.6 g/dL (3.5-5.0); CALCIUM 8.4 mg/dl (8.6-10.4)
--- NOTE | 2018-10-22 08:46 | CP.PCM.PN ---
<Av Colby - Last Filed: 10/22/18 17:18> Subjective - Date & Time of Evaluation Date of Evaluation: 10/22/18 Time of Evaluation: 08:46 - Subjective Subjective: Cardiology Service: Dr. Wagoner's Service Patient seen and examined at bedside. Per nursing no acute events occurred overnight. ROS unobtainable due to patient's current clinical condition. Patient remains intubated and sedated. Objective - Vital Signs/Intake and Output Vital Signs (last 24 hours): Temp Pulse Resp BP Pulse Ox 98.8 F 75 22 103/55 L 100 10/22/18 04:00 10/22/18 07:00 10/22/18 07:00 10/22/18 07:00 10/22/18 07:00 Intake and Output: 10/22/18 10/22/18 06:59 18:59 Intake Total 785.8 62.6 Output Total 60 0 Balance 725.8 62.6 - Medications Medications: Current Medications Acetaminophen (Tylenol 325mg Tab) 650 mg PO Q6 PRN PRN Reason: pain+fever Last Admin: 10/19/18 11:47 Dose: 650 mg Aspirin (Aspirin Chewable) 81 mg PO DAILY [facility] Last Admin: 10/21/18 10:20 Dose: 81 mg Epoetin Dedrick (Procrit) 10,000 unit IV MWF [facility] Last Admin: 10/19/18 19:25 Dose: 10,000 unit Heparin Sodium (Porcine) (Heparin) 5,000 units SC Q12 [facility] Last Admin: 10/21/18 21:32 Dose: 5,000 units Hydrocortisone (Cortef) 10 mg PO DAILY [facility] Last Admin: 10/21/18 10:27 Dose: 10 mg Ferric Sodium Gluconate Complex 125 mg/ Sodium Chloride 110 mls @ 110 mls/hr IVPB Q24H [facility] Stop: 10/23/18 11:31 Last Admin: 10/21/18 11:22 Dose: 110 mls/hr Vancomycin HCl 1 gm/ Sodium (Chloride) 250 mls @ 166.7 mls/hr IVPB MWF [facility]; Protocol Last Admin: 10/20/18 00:16 Dose: 166.7 mls/hr Cefepime HCl 1 gm/ Dextrose 50 mls @ 100 mls/hr IVPB DAILY [facility]; Protocol Last Admin: 10/21/18 10:23 Dose: 100 mls/hr Propofol (Diprivan) 1,000 mg in 100 mls @ 2.682 mls/hr IV .Q24H PRN; Protocol PRN Reason: TITRATE PER MD ORDER Last Titration: 10/21/18 21:57 Dose: 5 mcg/kg/min, 2.682 mls/hr Levetiracetam 750 mg/ Sodium (Chloride) 107.5 mls @ 420 mls/hr IVPB Q12H [facility] Insulin Aspart (Novolog) 0 unit SC Q6H [facility]; Protocol Last Admin: 10/22/18 06:00 Dose: Not Given Insulin Detemir (Levemir) 30 unit SC Q12 [facility] Last Admin: 10/21/18 21:31 Dose: 30 u Levothyroxine Sodium (Synthroid) 50 mcg PO 0600 [facility] Last Admin: 10/22/18 06:20 Dose: 50 mcg Lorazepam (Ativan) 1 mg IVP Q6H PRN PRN Reason: Anxiety Last Admin: 10/19/18 17:38 Dose: 1 mg Losartan Potassium (Cozaar) 25 mg PO DAILY [facility] Last Admin: 10/21/18 10:20 Dose: 25 mg Metoprolol Tartrate (Lopressor) 12.5 mg NG BID [facility] Last Admin: 10/21/18 17:26 Dose: 12.5 mg Mupirocin (Bactroban 2% Nasal) 0.25 gm HILLARY BID [facility] Last Admin: 10/21/18 17:26 Dose: 0.25 gm Pantoprazole Sodium (Protonix Susp) 40 mg PO 0600 [facility] Last Admin: 10/22/18 06:20 Dose: 40 mg Quetiapine Fumarate (Seroquel) 25 mg PO DAILY [facility] Last Admin: 10/21/18 10:22 Dose: 25 mg Rosuvastatin Calcium (Crestor) 10 mg PO HS [facility] Last Admin: 10/21/18 21:32 Dose: 10 mg - Labs Labs: 10/22/18 06:03 10/22/18 06:06 PT 14.1 SECONDS (9.7-12.2) H 10/19/18 06:21 INR 1.3 10/19/18 06:21 APTT 38 SECONDS (21-34) H 10/19/18 06:21 - Head Exam Head Exam: ATRAUMATIC, NORMAL INSPECTION - Eye Exam Eye Exam: EOMI, Normal appearance, PERRL Pupil Exam: NORMAL ACCOMODATION - ENT Exam ENT Exam: Mucous Membranes Moist, Normal Oropharynx - Respiratory Exam Respiratory Exam: Clear to Ausculation Bilateral, NORMAL BREATHING PATTERN. absent: Prolonged Expiratory Phase, Respiratory Distress - Cardiovascular Exam Cardiovascular Exam: +S1, +S2 - Neurological Exam Neurological Exam: Altered - Psychiatric Exam Psychiatric exam: Agitated - Skin Skin Exam: Dry, Intact Assessment and Plan - Assessment and Plan (Free Text) Assessment: 72 year old female with past medical history of CAD, CHF, HTN, HLD, pituitary adenoma, is being seen s/p respiratory arrest during AV fistula placement surgery. s/p permacath on 10-11-18; possible AMS due to anoxic brain injury, now on HD MWF, tracheostomy done on 10/18/17, planning for PEG placement by GI Plan: Respiratory failure - Currently intubated and sedated. Management per primary care team - Completed hypothermic protocol Medications: Propofol 5mcg/kg/min q24 prn Ativan 1mg IVP Q6H prn Levetiracetam 420mls/hrIVPB Q12H [facility] MRSA in trach -Continue Cefepime 1gm ivpb daily -Continue Vancomycin 1gm ivpb mwf HTN -Lopressor 12.5mg NG BID [facility] -Cozaar 25mg PO Daily [facility] HLD -Continue Rosuvastatin 10mg PO HS [facility] CAD -Continue Aspirin 81mg PO Daily [facility] -Continue Coreg 12.5mg PO BID [facility] DM -Levemir 30UNIT sc q12 mir Hypothyroidism -Continue Synthroid 50mcg PO 0600 [facility] CKD on HD - S/p right permacath placed on 10/11 -Procrit 10,000 unit IV MWF -Ferric sodium gluconate @110mls/hr ivpb q24 mir ppx -Protonix -Heparin All management per Dr. Wagoner. Av Colby, PGY-2 <Jimmy Wagoner - Last Filed: 10/22/18 21:54> Objective - Vital Signs/Intake and Output Vital Signs (last 24 hours): Temp Pulse Resp BP Pulse Ox 98.6 F 75 17 128/61 100 10/22/18 20:00 10/22/18 21:00 10/22/18 21:00 10/22/18 21:00 10/22/18 21:00 Intake and Output: 10/22/18 10/23/18 18:59 06:59 Intake Total 1472.6 480 Output Total 0 Balance 1472.6 480 - Medications Medications: Current Medications Acetaminophen (Tylenol 325mg Tab) 650 mg PO Q6 PRN PRN Reason: pain+fever Last Admin: 10/19/18 11:47 Dose: 650 mg Aspirin (Aspirin Chewable) 81 mg PO DAILY [facility] Last Admin: 10/22/18 10:42 Dose: 81 mg Epoetin Dedrick (Procrit) 10,000 unit IV MWF [facility] Last Admin: 10/19/18 19:25 Dose: 10,000 unit Heparin Sodium (Porcine) (Heparin) 5,000 units SC Q12 [facility] Last Admin: 10/22/18 10:42 Dose: 5,000 units Hydrocortisone (Cortef) 10 mg PO DAILY [facility] Last Admin: 10/22/18 10:41 Dose: 10 mg Ferric Sodium Gluconate Complex 125 mg/ Sodium Chloride 110 mls @ 110 mls/hr IVPB Q24H [facility] Stop: 10/23/18 11:31 Last Admin: 10/22/18 14:09 Dose: 110 mls/hr Vancomycin HCl 1 gm/ Sodium (Chloride) 250 mls @ 166.7 mls/hr [place] [facility] Last Admin: 10/20/18 00:16 Dose: 166.7 mls/hr Cefepime HCl 1 gm/ Dextrose 50 mls @ 100 mls/hr IVPB DAILY [facility]; Protocol Last Admin: 10/22/18 10:44 Dose: 100 mls/hr Propofol (Diprivan) 1,000 mg in 100 mls @ 2.682 mls/hr IV .Q24H PRN; Protocol PRN Reason: TITRATE PER MD ORDER Last Titration: 10/21/18 21:57 Dose: 5 mcg/kg/min, 2.682 mls/hr Levetiracetam 750 mg/ Sodium (Chloride) 107.5 mls @ 420 mls/hr IVPB Q12H [facility] Last Admin: 10/22/18 10:44 Dose: 420 mls/hr Sodium Chloride (Sodium Chloride 0.9%) 1,000 mls @ 100 mls/hr IV .Q10H [facility] Last Admin: 10/22/18 14:10 Dose: 100 mls/hr Insulin Aspart (Novolog) 0 unit SC Q6H [facility]; Protocol Last Admin: 10/22/18 18:10 Dose: Not Given Insulin Detemir (Levemir) 30 unit SC Q12 [facility] Last Admin: 10/22/18 10:43 Dose: 10 u Levothyroxine Sodium (Synthroid) 50 mcg PO 0600 [facility] Last Admin: 10/22/18 06:20 Dose: 50 mcg Lorazepam (Ativan) 1 mg IVP Q6H PRN PRN Reason: Anxiety Last Admin: 10/19/18 17:38 Dose: 1 mg Metoprolol Tartrate (Lopressor) 12.5 mg NG BID [facility] Last Admin: 10/22/18 18:11 Dose: 12.5 mg Mupirocin (Bactroban 2% Nasal) 0.25 gm [place] BID [facility] Last Admin: 10/22/18 18:11 Dose: 0.25 gm Pantoprazole Sodium (Protonix Susp) 40 mg PO 0600 [facility] Last Admin: 10/22/18 06:20 Dose: 40 mg Rosuvastatin Calcium (Crestor) 10 mg PO HS [facility] Last Admin: 10/21/18 21:32 Dose: 10 mg - Labs Labs: 10/22/18 19:32 10/22/18 19:32 PT 14.1 SECONDS (9.7-12.2) H 10/19/18 06:21 INR 1.3 10/19/18 06:21 APTT 38 SECONDS (21-34) H 10/19/18 06:21 Assessment and Plan - Assessment and Plan (Free Text) Plan: Patient seen and examined personally by me. Plan of care d/w the medical residen t and as documented
--- NOTE | 2018-10-22 10:37 | CP.CCUPN ---
CCU Subjective - Physician Review Subjective (Free Text): PGY-[address] progress note for Dr Renato Orlando Patient is seen and examined at bedside. Patient is awake, but not alert or oriented, does not respond to command, verbal or tactile stimulation. Seen moving arms and legs. s/p tracheotomy on vent. ROS unattainable due to patient's mental status. 10/22/18 10:35 Critical Care Time Spent (in minutes): 35 CCU Objective - Vital Signs / Intake & Output Vital Signs (Last 4 hours): Vital Signs Pulse Resp BP Pulse Ox 10/22/18 07:00 75 22 103/55 L 100 Intake and Output (Last 8hrs): Intake & Output 10/21/18 10/22/18 10/22/18 22:59 06:59 14:59 Intake Total 417.4 500.8 62.6 Output Total 40 20 0 Balance 377.4 480.8 62.6 Weight 194 lb Intake: IV 150 Intake, IV Amount 67.4 20.8 2.6 Right Upper Arm Midline 67.4 20.8 2.6 Tube Feeding 200 480 60 Output: Urine 0 0 0 Urine, Voided 0 0 0 Stool 40 20 0 - Physical Exam Head: Positive for: Atraumatic, Normocephalic Extroacular Muscles: Positive for: EOMI (dropping eyelid left) Conjunctiva: Positive for: Normal Mouth: Positive for: Dry Neck: Positive for: Other (tracheostomy in place with vent) Respiratory/Chest: Positive for: Decreased Breath Sounds, Other (intubated ). Negative for: Respiratory Distress, Accessory Muscle Use, Tachypneic Cardiovascular: Positive for: Regular Rate and Rhythm, Normal S1, S2 Abdomen: Positive for: Normal Bowel Sounds. Negative for: Tenderness, Distention, Rebound, Guarding Upper Extremity: Positive for: Normal Inspection. Negative for: Cyanosis, Edema Lower Extremity: Positive for: Normal Inspection. Negative for: Edema Neurological: Negative for: GCS=15, CN II-XII Intact, Speech Normal Skin: Positive for: Warm, Dry, Normal Color, Other (permacath in place, right femoral TLC) Psychiatric: Positive for: Agitated. Negative for: Alert, Oriented x 3, Normal Insight, Normal Concentration - Medications Active Medications: Active Medications Generic Name Dose Route Start Last Admin Trade Name Freq PRN Reason Stop Dose Admin Acetaminophen 650 mg 10/08/18 10:08 10/19/18 11:47 Tylenol 325mg Tab PO 650 mg Q6 PRN Administration pain+fever Aspirin 81 mg 10/08/18 10:00 10/21/18 10:20 Aspirin Chewable PO 81 mg DAILY [facility] Administration Epoetin Dedrick 10,000 unit 10/17/18 09:00 10/19/18 19:25 Procrit IV 10,000 unit [facility] Administration Heparin Sodium (Porcine) 5,000 units 10/15/18 10:00 10/21/18 21:32 Heparin SC 5,000 units Q12 [facility] Administration Hydrocortisone 10 mg 10/15/18 10:00 10/21/18 10:27 Cortef PO 10 mg DAILY [facility] Administration Ferric Sodium Gluconate 110 mls @ 110 mls/hr 10/15/18 11:30 10/21/18 11:22 Complex 125 mg/ Sodium IVPB 10/23/18 11:31 110 mls/hr Chloride Q24H [facility]OC[facility]N Administration Vancomycin HCl 1 gm/ Sodium 250 mls @ 166.7 mls/hr 10/17/18 09:00 10/20/18 00:16 Chloride IVPB 166.7 mls/hr [facility] Administration Protocol Cefepime HCl 1 gm/ Dextrose 50 mls @ 100 mls/hr 10/16/18 14:00 10/21/18 10:23 IVPB 100 mls/hr DAILY [facility] Administration Protocol Propofol 1,000 mg in 100 mls @ 2.682 mls/hr 10/19/18 22:41 10/21/18 21:57 Diprivan IV 5 mcg/kg/min .Q24H PRN 2.682 mls/hr TITRATE PER MD ORDER Titration Protocol 5 MCG/KG/MIN Levetiracetam 750 mg/ Sodium 107.5 mls @ 420 mls/hr 10/22/18 10:00 Chloride IVPB Q12H [facility] Insulin Aspart 0 unit 10/18/18 18:00 10/22/18 06:00 Novolog SC Not Given Q6H [facility] Protocol Insulin Detemir 30 unit 10/14/18 10:00 10/21/18 21:31 Levemir SC 30 u Q12 [facility] Administration Levothyroxine Sodium 50 mcg 09/29/18 08:00 10/22/18 06:20 Synthroid PO 50 mcg 0600 [facility] Administration Lorazepam 1 mg 10/18/18 18:27 10/19/18 17:38 Ativan IVP 1 mg Q6H PRN Administration Anxiety Losartan Potassium 25 mg 10/20/18 10:00 10/21/18 10:20 Cozaar PO 25 mg DAILY [facility] Administration Metoprolol Tartrate 12.5 mg 10/19/18 22:43 10/21/18 17:26 Lopressor NG 12.5 mg BID [facility] Administration Mupirocin 0.25 gm 10/16/18 10:00 10/21/18 17:26 Bactroban 2% Nasal HILLARY 0.25 gm BID [facility]N Administration Pantoprazole Sodium 40 mg 10/09/18 06:00 10/22/18 06:20 Protonix Susp PO 40 mg 0600 [facility] Administration Quetiapine Fumarate 25 mg 10/20/18 10:00 10/21/18 10:22 Seroquel PO 25 mg DAILY [facility] Administration Rosuvastatin Calcium 10 mg 09/30/18 22:00 10/21/18 21:32 Crestor PO 10 mg HS [facility]OC[facility]N Administration - Patient Studies Lab Studies: Microbiology Studies 10/19/18 20:57 Blood Culture - Preliminary Blood-During Dialysis NO GROWTH AFTER 48 HOURS 10/19/18 18:54 Blood Culture - Preliminary Blood-During Dialysis NO GROWTH AFTER 48 HOURS 10/19/18 18:54 Gram Stain - Final Trachasp Sputum Culture - Final No growth. 10/19/18 18:54 Gram Stain - Final Catheter Site Wound Culture - Final Coagulase Neg Staphylococcus 10/16/18 11:45 Blood Culture - Final Blood-Venous NO GROWTH AFTER 5 DAYS Gram Stain - Final TEST NOT PERFORMED 10/16/18 12:10 Blood Culture - Final Blood-Venous NO GROWTH AFTER 5 DAYS Gram Stain - Final TEST NOT PERFORMED Lab Studies 10/22/18 10/22/18 10/22/18 Range/Units 06:14 06:06 06:03 WBC 9.7 (4.8-10.8) K/uL RBC 3.64 L (3.80-5.20) Mil/uL Hgb 10.3 L (11.0-16.0) g/dL Hct 33.0 L (34.0-47.0) % MCV 90.6 (81.0-99.0) fL MCH 28.4 (27.0-31.0) pg MCHC 31.3 L (33.0-37.0) g/dL RDW 18.7 H (11.5-14.5) % Plt Count 347 (130-400) K/uL MPV 10.1 (7.2-11.7) fL Neut % (Auto) 53.8 (50.0-75.0) % Lymph % (Auto) 16.6 L (20.0-40.0) % [place] % (Auto) 14.8 H (0.0-10.0) % Eos % (Auto) 13.2 H (0.0-4.0) % Baso % (Auto) 1.6 (0.0-2.0) % Neut # (Auto) 5.2 (1.8-7.0) K/uL Lymph # (Auto) 1.6 (1.0-4.3) K/uL [place] # (Auto) 1.4 H (0.0-0.8) K/uL Eos # (Auto) 1.3 H (0.0-0.7) K/uL Baso # (Auto) 0.2 (0.0-0.2) K/uL Sodium 140 (132-148) mmol/L Potassium 4.2 (3.6-5.2) mmol/L Chloride 102 (98-107) mmol/L Carbon Dioxide 25 (22-30) mmol/L Anion Gap 17 (10-20) BUN 51 H (7-17) mg/dL Creatinine 7.0 H (0.7-1.2) mg/dL Est GFR ( Amer) 7 Est GFR (Non-Af Amer) 6 POC Glucose (mg/dL) 88 (65-110) mg/dL Random Glucose 94 D (65-105) mg/dL Calcium 8.4 L (8.6-10.4) mg/dl Phosphorus 5.3 H (2.5-4.5) mg/dL Magnesium 2.3 (1.6-2.3) mg/dL Total Bilirubin 1.0 (0.2-1.3) mg/dL AST 30 (14-36) U/L ALT 19 (9-52) U/L Alkaline Phosphatase 124 (38-126) U/L Total Protein 7.0 (6.3-8.3) g/dL Albumin 3.6 (3.5-5.0) g/dL Globulin 3.4 (2.2-3.9) gm/dL Albumin/Globulin Ratio 1.1 (1.0-2.1) Stool Leukocytes, Qual (NEGATIVE) 10/22/18 10/21/18 10/21/18 Range/Units 00:11 17:28 15:53 WBC (4.8-10.8) K/uL RBC (3.80-5.20) Mil/uL Hgb (11.0-16.0) g/dL Hct (34.0-47.0) % MCV (81.0-99.0) fL MCH (27.0-31.0) pg MCHC (33.0-37.0) g/dL RDW (11.5-14.5) % Plt Count (130-400) K/uL MPV (7.2-11.7) fL Neut % (Auto) (50.0-75.0) % Lymph % (Auto) (20.0-40.0) % [place] % (Auto) (0.0-10.0) % Eos % (Auto) (0.0-4.0) % Baso % (Auto) (0.0-2.0) % Neut # (Auto) (1.8-7.0) K/uL Lymph # (Auto) (1.0-4.3) K/uL [place] # (Auto) (0.0-0.8) K/uL Eos # (Auto) (0.0-0.7) K/uL Baso # (Auto) (0.0-0.2) K/uL Sodium (132-148) mmol/L Potassium (3.6-5.2) mmol/L Chloride (98-107) mmol/L Carbon Dioxide (22-30) mmol/L Anion Gap (10-20) BUN (7-17) mg/dL Creatinine (0.7-1.2) mg/dL Est GFR ( Amer) Est GFR (Non-Af Amer) POC Glucose (mg/dL) 94 138 H (65-110) mg/dL Random Glucose (65-105) mg/dL Calcium (8.6-10.4) mg/dl Phosphorus (2.5-4.5) mg/dL Magnesium (1.6-2.3) mg/dL Total Bilirubin (0.2-1.3) mg/dL AST (14-36) U/L ALT (9-52) U/L Alkaline Phosphatase (38-126) U/L Total Protein (6.3-8.3) g/dL Albumin (3.5-5.0) g/dL Globulin (2.2-3.9) gm/dL Albumin/Globulin Ratio (1.0-2.1) Stool Leukocytes, Qual Negative (NEGATIVE) 10/21/18 Range/Units 11:36 WBC (4.8-10.8) K/uL RBC (3.80-5.20) Mil/uL Hgb (11.0-16.0) g/dL Hct (34.0-47.0) % MCV (81.0-99.0) fL MCH (27.0-31.0) pg MCHC (33.0-37.0) g/dL RDW (11.5-14.5) % Plt Count (130-400) K/uL MPV (7.2-11.7) fL Neut % (Auto) (50.0-75.0) % Lymph % (Auto) (20.0-40.0) % [place] % (Auto) (0.0-10.0) % Eos % (Auto) (0.0-4.0) % Baso % (Auto) (0.0-2.0) % Neut # (Auto) (1.8-7.0) K/uL Lymph # (Auto) (1.0-4.3) K/uL [place] # (Auto) (0.0-0.8) K/uL Eos # (Auto) (0.0-0.7) K/uL Baso # (Auto) (0.0-0.2) K/uL Sodium (132-148) mmol/L Potassium (3.6-5.2) mmol/L Chloride (98-107) mmol/L Carbon Dioxide (22-30) mmol/L Anion Gap (10-20) BUN (7-17) mg/dL Creatinine (0.7-1.2) mg/dL Est GFR ( Amer) Est GFR (Non-Af Amer) POC Glucose (mg/dL) 236 H (65-110) mg/dL Random Glucose (65-105) mg/dL Calcium (8.6-10.4) mg/dl Phosphorus (2.5-4.5) mg/dL Magnesium (1.6-2.3) mg/dL Total Bilirubin (0.2-1.3) mg/dL AST (14-36) U/L ALT (9-52) U/L Alkaline Phosphatase (38-126) U/L Total Protein (6.3-8.3) g/dL Albumin (3.5-5.0) g/dL Globulin (2.2-3.9) gm/dL Albumin/Globulin Ratio (1.0-2.1) Stool Leukocytes, Qual (NEGATIVE) Laboratory Results - last 24 hr 10/21/18 10/21/18 10/21/18 11:36 15:53 17:28 WBC RBC Hgb Hct MCV MCH MCHC RDW Plt Count MPV Neut % (Auto) Lymph % (Auto) [place] % (Auto) Eos % (Auto) Baso % (Auto) Neut # (Auto) Lymph # (Auto) [place] # (Auto) Eos # (Auto) Baso # (Auto) Sodium Potassium Chloride Carbon Dioxide Anion Gap BUN Creatinine Est GFR ( Amer) Est GFR (Non-Af Amer) POC Glucose (mg/dL) 236 H 138 H Random Glucose Calcium Phosphorus Magnesium Total Bilirubin AST ALT Alkaline Phosphatase Total Protein Albumin Globulin Albumin/Globulin Ratio Stool Leukocytes, Qual Negative 10/22/18 10/22/18 10/22/18 00:11 06:03 06:06 WBC 9.7 RBC 3.64 L Hgb 10.3 L Hct 33.0 L MCV 90.6 MCH 28.4 MCHC 31.3 L RDW 18.7 H Plt Count 347 MPV 10.1 Neut % (Auto) 53.8 Lymph % (Auto) 16.6 L [place] % (Auto) 14.8 H Eos % (Auto) 13.2 H Baso % (Auto) 1.6 Neut # (Auto) 5.2 Lymph # (Auto) 1.6 [place] # (Auto) 1.4 H Eos # (Auto) 1.3 H Baso # (Auto) 0.2 Sodium 140 Potassium 4.2 Chloride 102 Carbon Dioxide 25 Anion Gap 17 BUN 51 H Creatinine 7.0 H Est GFR ( Amer) 7 Est GFR (Non-Af Amer) 6 POC Glucose (mg/dL) 94 Random Glucose 94 D Calcium 8.4 L Phosphorus 5.3 H Magnesium 2.3 Total Bilirubin 1.0 AST 30 ALT 19 Alkaline Phosphatase 124 Total Protein 7.0 Albumin 3.6 Globulin 3.4 Albumin/Globulin Ratio 1.1 Stool Leukocytes, Qual 10/22/18 06:14 WBC RBC Hgb Hct MCV MCH MCHC RDW Plt Count MPV Neut % (Auto) Lymph % (Auto) [place] % (Auto) Eos % (Auto) Baso % (Auto) Neut # (Auto) Lymph # (Auto) [place] # (Auto) Eos # (Auto) Baso # (Auto) Sodium Potassium Chloride Carbon Dioxide Anion Gap BUN Creatinine Est GFR ( Amer) Est GFR (Non-Af Amer) POC Glucose (mg/dL) 88 Random Glucose Calcium Phosphorus Magnesium Total Bilirubin AST ALT Alkaline Phosphatase Total Protein Albumin Globulin Albumin/Globulin Ratio Stool Leukocytes, Qual Radiology Impressions: Radiology Impressions Chest X-Ray 10/21/18 11:35 IMPRESSION: Tracheostomy tube and right IJ dialysis catheter unchanged.. In situ NGT tip of which has not been included though distal aspect does lie well below EG junction. Mild pulmonary venous congestive changes felt be present. Cardiomegaly. Mild central pulmonary venous congestive changes. Fingerstick Blood Sugar Results: 88 Review of Systems - Review of Systems Systems not reviewed;Unavailable: Altered Mental Status Critical Care Progress Note - Vent Settings MODE:: PRVC TIDAL VOLUME:: 500 RESP RATE:: 12 FIO2:: 50 PEEP:: 5 - Extremities/Vascular Insertion Site: Femoral Vein - Restraints Justification for Restraints: High risk for self extubation, High risk for removing IV access - Prophylaxis GI Prophylaxis GI: PPI - Prophylaxis DVT Prophylaxis DVT: Heparin SQ Assessment/Plan - Assessment and Plan (Free Text) Plan: Neuro Intubated via tracheostomy, on propofol continue Keppra 750 mg PO Daily Blu Ryan, Neurology CT head - no definitive internal acute intracranial findings as discussed above. MRI order by Dr Yost for possible new stroke - patient is restless - hold Seroquel 25mg PO Daily Haldol 2mg IVP ONCE Ativan 1mg Q6 PRN continue to monitor mental status for possible MRI CV cont Hydralazine cont Metoprolol cont Crestor Aspirin Chest Xray portable 10/21 -Mild pulm venous congestive changes and mild central pulm congestive changes Pulm Vent settings 18/430/5/50 Tracheostomy 10/18 Duoneb q6 hydrocortisone GI PEG tube on hold due to patient spiking fevers two days ago afebrile now f/u Dr Millard recs on PEG tube - most likely tomorrow continue Tube feeds Protonix Heme EPO w/ Dialysis MWF Ferric sodium drip Renal ESRD- changed to MWF sessions EPO MWF Bumex 2mg [address] Segundo Endo Levemir 30 SC Q12 Insulin regular SC Q6 Levothyroxine 50 PO daily Hydrocortisone 10 mg PO daily Q6 accuchecks ID +[id number] on 10-07 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 asp Cefepime Vanc with dialysis (MWF) Mupirocin 2% nasal Dr Barrios on case wound culture coagulase neg staph repeat bcx no growth after 48H Trachasp - no growth DVT ppx: Heparin GI ppx: Protonix Plan discussed with Dr Darion Patton, PGY-1 - Date & Time Date: 10/22/18 Time: 07:30
[2018-10-22] MEDS: Mupirocin 2% Ointment (NASAL) NAS SCH ×2 (10:41→18:11)
[2018-10-22] MEDS: Insulin Detemir 100 units/ml Vial (Levemir) SC SCH ×2 (10:43→22:00)
--- NOTE | 2018-10-22 10:52 | CP.PCM.PN ---
Subjective - Date & Time of Evaluation Date of Evaluation: 10/22/18 Time of Evaluation: 10:49 - Subjective Subjective: remains agitated despite sedation. on trach, vented. with NGT feeds- likely for PEG soon last dialysis 10/19- well tolerated labs acceptable Objective - Vital Signs/Intake and Output Vital Signs (last 24 hours): Temp Pulse Resp BP Pulse Ox 98.8 F 75 22 103/55 L 100 10/22/18 04:00 10/22/18 07:00 10/22/18 07:00 10/22/18 07:00 10/22/18 07:00 Intake and Output: 10/22/18 10/22/18 06:59 18:59 Intake Total 785.8 62.6 Output Total 60 0 Balance 725.8 62.6 - Medications Medications: Current Medications Acetaminophen (Tylenol 325mg Tab) 650 mg PO Q6 PRN PRN Reason: pain+fever Last Admin: 10/19/18 11:47 Dose: 650 mg Aspirin (Aspirin Chewable) 81 mg PO DAILY [facility] Last Admin: 10/22/18 10:42 Dose: 81 mg Epoetin Dedrick (Procrit) 10,000 unit IV [facility] Last Admin: 10/19/18 19:25 Dose: 10,000 unit Heparin Sodium (Porcine) (Heparin) 5,000 units SC Q12 [facility] Last Admin: 10/22/18 10:42 Dose: 5,000 units Hydrocortisone (Cortef) 10 mg PO DAILY [facility] Last Admin: 10/22/18 10:41 Dose: 10 mg Ferric Sodium Gluconate Complex 125 mg/ Sodium Chloride 110 mls @ 110 mls/hr IVPB Q24H [facility] Stop: 10/23/18 11:31 Last Admin: 10/21/18 11:22 Dose: 110 mls/hr Vancomycin HCl 1 gm/ Sodium (Chloride) 250 mls @ 166.7 mls/hr IVPB MWF [facility]; Protocol Last Admin: 10/20/18 00:16 Dose: 166.7 mls/hr Cefepime HCl 1 gm/ Dextrose 50 mls @ 100 mls/hr IVPB DAILY [facility]; Protocol Last Admin: 10/22/18 10:44 Dose: 100 mls/hr Propofol (Diprivan) 1,000 mg in 100 mls @ 2.682 mls/hr IV .Q24H PRN; Protocol PRN Reason: TITRATE PER MD ORDER Last Titration: 10/21/18 21:57 Dose: 5 mcg/kg/min, 2.682 mls/hr Levetiracetam 750 mg/ Sodium (Chloride) 107.5 mls @ 420 mls/hr IVPB Q12H [facility] Last Admin: 10/22/18 10:44 Dose: 420 mls/hr Insulin Aspart (Novolog) 0 unit SC Q6H [facility]; Protocol Last Admin: 10/22/18 06:00 Dose: Not Given Insulin Detemir (Levemir) 30 unit SC Q12 [facility] Last Admin: 10/22/18 10:43 Dose: 10 u Levothyroxine Sodium (Synthroid) 50 mcg PO 0600 [facility] Last Admin: 10/22/18 06:20 Dose: 50 mcg Lorazepam (Ativan) 1 mg IVP Q6H PRN PRN Reason: Anxiety Last Admin: 10/19/18 17:38 Dose: 1 mg Losartan Potassium (Cozaar) 25 mg PO DAILY [facility] Last Admin: 10/22/18 10:41 Dose: 25 mg Metoprolol Tartrate (Lopressor) 12.5 mg NG BID [facility] Last Admin: 10/22/18 10:42 Dose: 12.5 mg Mupirocin (Bactroban 2% Nasal) 0.25 gm [place]ARY BID [facility] Last Admin: 10/22/18 10:41 Dose: 0.25 gm Pantoprazole Sodium (Protonix Susp) 40 mg PO 0600 [facility] Last Admin: 10/22/18 06:20 Dose: 40 mg Quetiapine Fumarate (Seroquel) 25 mg PO DAILY [facility] Last Admin: 10/22/18 10:41 Dose: 25 mg Rosuvastatin Calcium (Crestor) 10 mg PO HS [facility] Last Admin: 10/21/18 21:32 Dose: 10 mg - Labs Labs: 10/22/18 06:03 10/22/18 06:06 PT 14.1 SECONDS (9.7-12.2) H 10/19/18 06:21 INR 1.3 10/19/18 06:21 APTT 38 SECONDS (21-34) H 10/19/18 06:21 - Constitutional Appears: Chronically Ill - Head Exam Head Exam: ATRAUMATIC, NORMAL INSPECTION - Eye Exam Eye Exam: EOMI, Normal appearance - Neck Exam Neck Exam: Normal Inspection. absent: Tenderness - Respiratory Exam Respiratory Exam: Clear to Ausculation Bilateral, Respiratory Distress - Cardiovascular Exam Cardiovascular Exam: REGULAR RHYTHM, +S1 - GI/Abdominal Exam GI & Abdominal Exam: Soft. absent: Tenderness - Extremities Exam Extremities Exam: Normal Inspection. absent: Tenderness - Neurological Exam Neurological Exam: Altered - Psychiatric Exam Psychiatric exam: Agitated, Anxious - Skin Skin Exam: Dry, Warm Assessment and Plan (1) ESRD (end stage renal disease) Status: Acute (2) Diabetic nephropathy associated with type 2 diabetes mellitus Status: Acute (3) CAD (coronary artery disease) Status: Acute (4) HTN (hypertension) Status: Acute - Assessment and Plan (Free Text) Plan: dialysis today, MWF same EPO, IV fe moniutor low BP- on cardiac meds await PEG will need dialysis placment
[2018-10-22] MEDS: Ferric Sodium Gluconat Complex 125 MG in Sodium Chloride 0.9% 100 ML IVPB SCH (14:09)
[2018-10-22] MEDS: Sodium Chloride 0.9% 1,000 ML IV SCH (14:10)
--- NOTE | 2018-10-22 14:53 | CP.PCM.PN ---
Subjective - Date & Time of Evaluation Date of Evaluation: 10/22/18 Time of Evaluation: 14:51 - Subjective Subjective: On tracheostomy. OG Tube feeds Can not swallow Dialysis today. PEG tomorrow- consent obtained from daughter. Discussed with RN orders: hold anticoagulants and feeds for PEG Objective - Vital Signs/Intake and Output Vital Signs (last 24 hours): Temp Pulse Resp BP Pulse Ox 98.8 F 75 22 103/55 L 100 10/22/18 04:00 10/22/18 07:00 10/22/18 07:00 10/22/18 07:00 10/22/18 07:00 Intake and Output: 10/22/18 10/22/18 06:59 18:59 Intake Total 785.8 62.6 Output Total 60 0 Balance 725.8 62.6 - Medications Medications: Current Medications Acetaminophen (Tylenol 325mg Tab) 650 mg PO Q6 PRN PRN Reason: pain+fever Last Admin: 10/19/18 11:47 Dose: 650 mg Aspirin (Aspirin Chewable) 81 mg PO DAILY [facility] Last Admin: 10/22/18 10:42 Dose: 81 mg Epoetin Dedrick (Procrit) 10,000 unit IV MWF [facility] Last Admin: 10/19/18 19:25 Dose: 10,000 unit Heparin Sodium (Porcine) (Heparin) 5,000 units SC Q12 [facility] Last Admin: 10/22/18 10:42 Dose: 5,000 units Hydrocortisone (Cortef) 10 mg PO DAILY [facility] Last Admin: 10/22/18 10:41 Dose: 10 mg Ferric Sodium Gluconate Complex 125 mg/ Sodium Chloride 110 mls @ 110 mls/hr IVPB Q24H [facility] Stop: 10/23/18 11:31 Last Admin: 10/21/18 11:22 Dose: 110 mls/hr Vancomycin HCl 1 gm/ Sodium (Chloride) 250 mls @ 166.7 mls/hr IVPB MWF [facility]; P rotocol Last Admin: 10/20/18 00:16 Dose: 166.7 mls/hr Cefepime HCl 1 gm/ Dextrose 50 mls @ 100 mls/hr IVPB DAILY [facility]; Protocol Last Admin: 10/22/18 10:44 Dose: 100 mls/hr Propofol (Diprivan) 1,000 mg in 100 mls @ 2.682 mls/hr IV .Q24H PRN; Protocol PRN Reason: TITRATE PER MD ORDER Last Titration: 10/21/18 21:57 Dose: 5 mcg/kg/min, 2.682 mls/hr Levetiracetam 750 mg/ Sodium (Chloride) 107.5 mls @ 420 mls/hr IVPB Q12H [facility] Last Admin: 10/22/18 10:44 Dose: 420 mls/hr Sodium Chloride (Sodium Chloride 0.9%) 1,000 mls @ 100 mls/hr IV .Q10H [facility] Insulin Aspart (Novolog) 0 unit SC Q6H [facility]; Protocol Last Admin: 10/22/18 06:00 Dose: Not Given Insulin Detemir (Levemir) 30 unit SC Q12 [facility] Last Admin: 10/22/18 10:43 Dose: 10 u Levothyroxine Sodium (Synthroid) 50 mcg PO 0600 [facility] Last Admin: 10/22/18 06:20 Dose: 50 mcg Lorazepam (Ativan) 1 mg IVP Q6H PRN PRN Reason: Anxiety Last Admin: 10/19/18 17:38 Dose: 1 mg Metoprolol Tartrate (Lopressor) 12.5 mg NG BID [facility] Last Admin: 10/22/18 10:42 Dose: 12.5 mg Mupirocin (Bactroban 2% Nasal) 0.25 gm [place]ILLARY BID [facility] Last Admin: 10/22/18 10:41 Dose: 0.25 gm Pantoprazole Sodium (Protonix Susp) 40 mg PO 0600 [facility] Last Admin: 10/22/18 06:20 Dose: 40 mg Rosuvastatin Calcium (Crestor) 10 mg PO HS [facility] Last Admin: 10/21/18 21:32 Dose: 10 mg - Labs Labs: 10/22/18 06:03 10/22/18 06:06 PT 14.1 SECONDS (9.7-12.2) H 10/19/18 06:21 INR 1.3 10/19/18 06:21 APTT 38 SECONDS (21-34) H 10/19/18 06:21 - Constitutional Appears: Chronically Ill - Respiratory Exam Respiratory Exam: NORMAL BREATHING PATTERN - Cardiovascular Exam Cardiovascular Exam: REGULAR RHYTHM - GI/Abdominal Exam GI & Abdominal Exam: Soft. absent: Tenderness Assessment and Plan (1) Dysphagia Assessment & Plan: Anoxic vent and tube feed dependent For PEG tomorrow Status: Acute
[2018-10-22 19:36] LABS: BASO # 0.1 K/uL (0.0-0.2); BASO % 1.1 % (0.0-2.0); EOS # 0.9 K/uL (0.0-0.7); EOS % 12.2 % (0.0-4.0); HEMOGLOBIN 10.5 g/dL (11.0-16.0); LYMPH # 1.3 K/uL (1.0-4.3); LYMPH % 16.7 % (20.0-40.0); MEAN CORPUSCULAR HEMOGLOBIN 27.5 pg (27.0-31.0); MEAN PLATELET VOLUME 9.2 fL (7.2-11.7); MONO % 13.5 % (0.0-10.0); NEUT # 4.4 K/uL (1.8-7.0); NEUT % 56.5 % (50.0-75.0); NRBC % 0.1 % (0.0-2.0); RBC 3.81 Mil/uL (3.80-5.20); RED CELL DISTRIBUTION WIDTH 18.2 % (11.5-14.5); WHITE BLOOD COUNT 7.7 K/uL (4.8-10.8)
[2018-10-22 20:16] LABS: ALB/GLOB RATIO 1.1 (1.0-2.1); ALBUMIN 3.7 g/dL (3.5-5.0); CALCIUM 8.2 mg/dl (8.6-10.4)
[2018-10-22] MEDS ORDERED: Albumin Human 25% (12.5 gm/50 ml) IV ONE ×2 (20:34→21:00)
[2018-10-22] MEDS: Epoetin Alfa 10,000 unit/ml Dialysis IV SCH (22:22)
[2018-10-23] MEDS: Sodium Chloride 0.9% 1,000 ML IV SCH
[2018-10-23] MEDS ORDERED: Sodium Chloride 0.9% 1,000 ML IV SCH (02:00)
[2018-10-23] MEDS: Levothyroxine 50 MCG TAB PO SCH (06:00)
[2018-10-23] MEDS: (Novolog) Insulin Aspart, Recombinant 100 u/ml 10 ml vial SC SCH ×5 (06:00→23:53)
[2018-10-23] MEDS: Pantoprazole 40 mg Susp UD PO SCH (06:00)
[2018-10-23 06:19] LABS: BASO # 0.1 K/uL (0.0-0.2); BASO % 0.7 % (0.0-2.0); EOS # 1.3 K/uL (0.0-0.7); EOS % 13.1 % (0.0-4.0); HEMOGLOBIN 11.3 g/dL (11.0-16.0); LYMPH # 1.8 K/uL (1.0-4.3); LYMPH % 17.4 % (20.0-40.0); MEAN CELL VOLUME 90.6 fL (81.0-99.0); MEAN CORPUSCULAR HEMOGLOBIN 28.3 pg (27.0-31.0); MEAN CORPUSCULAR HGB CONC 31.2 g/dL (33.0-37.0); MEAN PLATELET VOLUME 9.6 fL (7.2-11.7); MONO # 1.6 K/uL (0.0-0.8); MONO % 15.2 % (0.0-10.0); NEUT # 5.5 K/uL (1.8-7.0); NEUT % 53.6 % (50.0-75.0); NRBC % 0.1 % (0.0-2.0); RBC 3.99 Mil/uL (3.80-5.20); RED CELL DISTRIBUTION WIDTH 18.9 % (11.5-14.5); WHITE BLOOD COUNT 10.2 K/uL (4.8-10.8)
[2018-10-23 06:50] LABS: ALBUMIN 3.7 g/dL (3.5-5.0); CALCIUM 8.1 mg/dl (8.6-10.4)
--- NOTE | 2018-10-23 08:07 | CP.CCUPN ---
<Dyllan Patton - Last Filed: 10/23/18 12:25> CCU Subjective - Physician Review Subjective (Free Text): PGY-1 ICU progress note for Dr Michoacano black Pt seen and examined at bedside. Patient is resting in bed, as per nurse patient continue to be restless overnight, trach and vent intact, patient received HD yesterday with no complications. 1 L removed reported by HD nurse. Family at bedside. ROS unattainable due to patient's mental status. 10/23/18 12:46 Critical Care Time Spent (in minutes): 35 CCU Objective - Vital Signs / Intake & Output Vital Signs (Last 4 hours): Vital Signs Pulse Resp BP Pulse Ox 10/23/18 07:00 81 17 145/59 L 100 10/23/18 06:01 82 17 146/56 L 97 10/23/18 05:00 81 18 137/60 100 Intake and Output (Last 8hrs): Intake & Output 10/22/18 10/23/18 10/23/18 22:59 06:59 14:59 Intake Total 1350 850 60 Output Total 400 Balance 1350 450 60 Weight 196 lb 3.382 oz Intake: Intake, IV Amount 800 730 60 Right Hand 400 Right Upper Arm Midline 400 730 60 Oral 70 Tube Feeding 480 120 0 Output: Stool 400 - Physical Exam Head: Positive for: Atraumatic, Normocephalic Extroacular Muscles: Positive for: EOMI (dropping eyelid left) Conjunctiva: Positive for: Normal Mouth: Positive for: Dry Neck: Positive for: Other (tracheostomy in place with vent) Respiratory/Chest: Positive for: Decreased Breath Sounds, Other (intubated ). Negative for: Respiratory Distress, Accessory Muscle Use, Tachypneic Cardiovascular: Positive for: Regular Rate and Rhythm, Normal S1, S2 Abdomen: Positive for: Normal Bowel Sounds. Negative for: Tenderness, Distention, Rebound, Guarding Upper Extremity: Positive for: Normal Inspection. Negative for: Cyanosis, Edema Lower Extremity: Positive for: Normal Inspection. Negative for: Edema Neurological: Negative for: GCS=15, CN II-XII Intact, Speech Normal Skin: Positive for: Warm, Dry, Normal Color, Other (permacath in place, right femoral TLC) Psychiatric: Positive for: Agitated. Negative for: Alert, Oriented x 3, Normal Insight, Normal Concentration - Medications Active Medications: Active Medications Generic Name Dose Route Start Last Admin Trade Name Freq PRN Reason Stop Dose Admin Acetaminophen 650 mg 10/08/18 10:08 10/19/18 11:47 Tylenol 325mg Tab PO 650 mg Q6 PRN Administration pain+fever Aspirin 81 mg 10/08/18 10:00 10/22/18 10:42 Aspirin Chewable PO 81 mg DAILY JOCELYN Administration Epoetin Dedrick 10,000 unit 10/17/18 09:00 10/22/18 22:22 Procrit IV 10,000 unit [facility] JOCELYN Administration Heparin Sodium (Porcine) 5,000 units 10/15/18 10:00 10/22/18 22:50 Heparin SC 5,000 units Q12 JOCELYN Administration Hydrocortisone 10 mg 10/15/18 10:00 10/22/18 10:41 Cortef PO 10 mg DAILY JOCELYN Administration Ferric Sodium Gluconate 110 mls @ 110 mls/hr 10/15/18 11:30 10/22/18 14:09 Complex 125 mg/ Sodium IVPB 10/23/18 11:31 110 mls/hr Chloride Q24H JOCELYN Administration Vancomycin HCl 1 gm/ Sodium 250 mls @ 166.7 mls/hr 10/17/18 09:00 10/23/18 01:35 Chloride IVPB 166.7 mls/hr F JOCEYLN Administration Protocol Cefepime HCl 1 gm/ Dextrose 50 mls @ 100 mls/hr 10/16/18 14:00 10/22/18 10:44 IVPB 100 mls/hr DAILY JOCELYN Administration Protocol Propofol 1,000 mg in 100 mls @ 2.682 mls/hr 10/19/18 22:41 10/21/18 21:57 Diprivan IV 5 mcg/kg/min .Q24H PRN 2.682 mls/hr TITRATE PER MD ORDER Titration Protocol 5 MCG/KG/MIN Levetiracetam 750 mg/ Sodium 107.5 mls @ 420 mls/hr 10/22/18 10:00 10/23/18 01:15 Chloride IVPB 420 mls/hr Q12H JOCELYN Administration Sodium Chloride 1,000 mls @ 60 mls/hr 10/23/18 02:00 10/23/18 01:30 Sodium Chloride 0.9% IV 60 mls/hr .[id number] JOCELYN Administration Insulin Aspart 0 unit 10/18/18 18:00 10/23/18 06:00 Novolog SC Not Given Q6H [facility] Protocol Insulin Detemir 30 unit 10/14/18 10:00 10/22/18 22:00 Levemir SC Not Given Q12 JOCELYN Levothyroxine Sodium 50 mcg 09/29/18 08:00 10/23/18 06:00 Synthroid PO Not Given 0600 JOCELYN Lorazepam 1 mg 10/18/18 18:27 10/19/18 17:38 Ativan IVP 1 mg Q6H PRN Administration Anxiety Metoprolol Tartrate 12.5 mg 10/19/18 22:43 10/22/18 18:11 Lopressor NG 12.5 mg BID JOCELYN Administration Mupirocin 0.25 gm 10/16/18 10:00 10/22/18 18:11 Bactroban 2% Nasal HILLARY 0.25 gm BID JOCELYN Administration Pantoprazole Sodium 40 mg 10/09/18 06:00 10/23/18 06:00 Protonix Susp PO Not Given 0600 JOCELYN Rosuvastatin Calcium 10 mg 09/30/18 22:00 10/22/18 22:50 Crestor PO 10 mg HS JOCELYN Administration - Patient Studies Lab Studies: Microbiology Studies 10/19/18 20:57 Blood Culture - Preliminary Blood-During Dialysis NO GROWTH AFTER 3 DAYS 10/19/18 18:54 Blood Culture - Preliminary Blood-During Dialysis NO GROWTH AFTER 3 DAYS Lab Studies 10/23/18 10/23/18 10/23/18 Range/Units 06:07 06:07 06:05 WBC 10.2 (4.8-10.8) K/uL RBC 3.99 (3.80-5.20) Mil/uL Hgb 11.3 (11.0-16.0) g/dL Hct 36.1 (34.0-47.0) % MCV 90.6 (81.0-99.0) fL MCH 28.3 (27.0-31.0) pg MCHC 31.2 L (33.0-37.0) g/dL RDW 18.9 H (11.5-14.5) % Plt Count 248 (130-400) K/uL MPV 9.6 (7.2-11.7) fL Neut % (Auto) 53.6 (50.0-75.0) % Lymph % (Auto) 17.4 L (20.0-40.0) % Allen % (Auto) 15.2 H (0.0-10.0) % Eos % (Auto) 13.1 H (0.0-4.0) % Baso % (Auto) 0.7 (0.0-2.0) % Neut # (Auto) 5.5 (1.8-7.0) K/uL Lymph # (Auto) 1.8 (1.0-4.3) K/uL Allen # (Auto) 1.6 H (0.0-0.8) K/uL Eos # (Auto) 1.3 H (0.0-0.7) K/uL Baso # (Auto) 0.1 (0.0-0.2) K/uL Sodium 137 (132-148) mmol/L Potassium 4.9 (3.6-5.2) mmol/L Chloride 102 (98-107) mmol/L Carbon Dioxide 25 (22-30) mmol/L Anion Gap 15 (10-20) BUN 35 H (7-17) mg/dL Creatinine 5.0 H (0.7-1.2) mg/dL Est GFR ( Amer) 10 Est GFR (Non-Af Amer) 9 POC Glucose (mg/dL) 155 H (65-110) mg/dL Random Glucose 162 H D (65-105) mg/dL Lactic Acid (0.7-2.1) mmol/L Calcium 8.1 L (8.6-10.4) mg/dl Phosphorus 4.2 (2.5-4.5) mg/dL Magnesium 2.0 (1.6-2.3) mg/dL Total Bilirubin 0.5 (0.2-1.3) mg/dL AST 42 H D (14-36) U/L ALT 25 (9-52) U/L Alkaline Phosphatase 136 H (38-126) U/L Total Protein 7.5 (6.3-8.3) g/dL Albumin 3.7 (3.5-5.0) g/dL Globulin 3.7 (2.2-3.9) gm/dL Albumin/Globulin Ratio 1.0 (1.0-2.1) Procalcitonin (0.19-0.49) NG/ML PTH Intact Whole Molec (14-64) pg/mL C. difficile Ag & Toxin (NEGATIVE) 10/22/18 10/22/18 10/22/18 Range/Units 23:52 19:32 19:32 WBC (4.8-10.8) K/uL RBC (3.80-5.20) Mil/uL Hgb (11.0-16.0) g/dL Hct (34.0-47.0) % MCV (81.0-99.0) fL MCH (27.0-31.0) pg MCHC (33.0-37.0) g/dL RDW (11.5-14.5) % Plt Count (130-400) K/uL MPV (7.2-11.7) fL Neut % (Auto) (50.0-75.0) % Lymph % (Auto) (20.0-40.0) % Allen % (Auto) (0.0-10.0) % Eos % (Auto) (0.0-4.0) % Baso % (Auto) (0.0-2.0) % Neut # (Auto) (1.8-7.0) K/uL Lymph # (Auto) (1.0-4.3) K/uL Allen # (Auto) (0.0-0.8) K/uL Eos # (Auto) (0.0-0.7) K/uL Baso # (Auto) (0.0-0.2) K/uL Sodium (132-148) mmol/L Potassium (3.6-5.2) mmol/L Chloride (98-107) mmol/L Carbon Dioxide (22-30) mmol/L Anion Gap (10-20) BUN (7-17) mg/dL Creatinine (0.7-1.2) mg/dL Est GFR ( Amer) Est GFR (Non-Af Amer) POC Glucose (mg/dL) 154 H (65-110) mg/dL Random Glucose (65-105) mg/dL Lactic Acid 1.0 (0.7-2.1) mmol/L Calcium (8.6-10.4) mg/dl Phosphorus (2.5-4.5) mg/dL Magnesium (1.6-2.3) mg/dL Total Bilirubin (0.2-1.3) mg/dL AST (14-36) U/L ALT (9-52) U/L Alkaline Phosphatase (38-126) U/L Total Protein (6.3-8.3) g/dL Albumin (3.5-5.0) g/dL Globulin (2.2-3.9) gm/dL Albumin/Globulin Ratio (1.0-2.1) Procalcitonin 0.29 (0.19-0.49) NG/ML PTH Intact Whole Molec (14-64) pg/mL C. difficile Ag & Toxin (NEGATIVE) 10/22/18 10/22/18 10/22/18 Range/Units 19:32 19:32 17:43 WBC 7.7 (4.8-10.8) K/uL RBC 3.81 (3.80-5.20) Mil/uL Hgb 10.5 L (11.0-16.0) g/dL Hct 33.9 L (34.0-47.0) % MCV 89.0 (81.0-99.0) fL MCH 27.5 (27.0-31.0) pg MCHC 31.0 L (33.0-37.0) g/dL RDW 18.2 H (11.5-14.5) % Plt Count 319 (130-400) K/uL MPV 9.2 (7.2-11.7) fL Neut % (Auto) 56.5 (50.0-75.0) % Lymph % (Auto) 16.7 L (20.0-40.0) % Allen % (Auto) 13.5 H (0.0-10.0) % Eos % (Auto) 12.2 H (0.0-4.0) % Baso % (Auto) 1.1 (0.0-2.0) % Neut # (Auto) 4.4 (1.8-7.0) K/uL Lymph # (Auto) 1.3 (1.0-4.3) K/uL Allen # (Auto) 1.0 H (0.0-0.8) K/uL Eos # (Auto) 0.9 H (0.0-0.7) K/uL Baso # (Auto) 0.1 (0.0-0.2) K/uL Sodium 140 (132-148) mmol/L Potassium 5.1 (3.6-5.2) mmol/L Chloride 104 (98-107) mmol/L Carbon Dioxide 23 (22-30) mmol/L Anion Gap 17 (10-20) BUN 53 H (7-17) mg/dL Creatinine 8.0 H* (0.7-1.2) mg/dL Est GFR ( Amer) 6 Est GFR (Non-Af Amer) 5 POC Glucose (mg/dL) 145 H (65-110) mg/dL Random Glucose 131 H D (65-105) mg/dL Lactic Acid (0.7-2.1) mmol/L Calcium 8.2 L (8.6-10.4) mg/dl Phosphorus 6.5 H (2.5-4.5) mg/dL Magnesium 2.3 (1.6-2.3) mg/dL Total Bilirubin 0.5 (0.2-1.3) mg/dL AST 25 (14-36) U/L ALT 20 (9-52) U/L Alkaline Phosphatase 115 (38-126) U/L Total Protein 7.1 (6.3-8.3) g/dL Albumin 3.7 (3.5-5.0) g/dL Globulin 3.4 (2.2-3.9) gm/dL Albumin/Globulin Ratio 1.1 (1.0-2.1) Procalcitonin (0.19-0.49) NG/ML PTH Intact Whole Molec (14-64) pg/mL C. difficile Ag & Toxin (NEGATIVE) 10/22/18 10/21/18 10/19/18 Range/Units 11:41 19:17 06:21 WBC (4.8-10.8) K/uL RBC (3.80-5.20) Mil/uL Hgb (11.0-16.0) g/dL Hct (34.0-47.0) % MCV (81.0-99.0) fL MCH (27.0-31.0) pg MCHC (33.0-37.0) g/dL RDW (11.5-14.5) % Plt Count (130-400) K/uL MPV (7.2-11.7) fL Neut % (Auto) (50.0-75.0) % Lymph % (Auto) (20.0-40.0) % Allen % (Auto) (0.0-10.0) % Eos % (Auto) (0.0-4.0) % Baso % (Auto) (0.0-2.0) % Neut # (Auto) (1.8-7.0) K/uL Lymph # (Auto) (1.0-4.3) K/uL Allen # (Auto) (0.0-0.8) K/uL Eos # (Auto) (0.0-0.7) K/uL Baso # (Auto) (0.0-0.2) K/uL Sodium (132-148) mmol/L Potassium (3.6-5.2) mmol/L Chloride (98-107) mmol/L Carbon Dioxide (22-30) mmol/L Anion Gap (10-20) BUN (7-17) mg/dL Creatinine (0.7-1.2) mg/dL Est GFR ( Amer) Est GFR (Non-Af Amer) POC Glucose (mg/dL) 100 (65-110) mg/dL Random Glucose (65-105) mg/dL Lactic Acid (0.7-2.1) mmol/L Calcium (8.6-10.4) mg/dl Phosphorus (2.5-4.5) mg/dL Magnesium (1.6-2.3) mg/dL Total Bilirubin (0.2-1.3) mg/dL AST (14-36) U/L ALT (9-52) U/L Alkaline Phosphatase (38-126) U/L Total Protein (6.3-8.3) g/dL Albumin (3.5-5.0) g/dL Globulin (2.2-3.9) gm/dL Albumin/Globulin Ratio (1.0-2.1) Procalcitonin (0.19-0.49) NG/ML PTH Intact Whole Molec 267 H (14-64) pg/mL C. difficile Ag & Toxin Negative (NEGATIVE) Laboratory Results - last 24 hr 10/19/18 10/21/18 10/22/18 06:21 19:17 11:41 WBC RBC Hgb Hct MCV MCH MCHC RDW Plt Count MPV Neut % (Auto) Lymph % (Auto) Allen % (Auto) Eos % (Auto) Baso % (Auto) Neut # (Auto) Lymph # (Auto) Allen # (Auto) Eos # (Auto) Baso # (Auto) Sodium Potassium Chloride Carbon Dioxide Anion Gap BUN Creatinine Est GFR ( Amer) Est GFR (Non-Af Amer) POC Glucose (mg/dL) 100 Random Glucose Lactic Acid Calcium Phosphorus Magnesium Total Bilirubin AST ALT Alkaline Phosphatase Total Protein Albumin Globulin Albumin/Globulin Ratio Procalcitonin PTH Intact Whole Molec 267 H C. difficile Ag & Toxin Negative 10/22/18 10/22/18 10/22/18 17:43 19:32 19:32 WBC 7.7 RBC 3.81 Hgb 10.5 L Hct 33.9 L MCV 89.0 MCH 27.5 MCHC 31.0 L RDW 18.2 H Plt Count 319 MPV 9.2 Neut % (Auto) 56.5 Lymph % (Auto) 16.7 L Allen % (Auto) 13.5 H Eos % (Auto) 12.2 H Baso % (Auto) 1.1 Neut # (Auto) 4.4 Lymph # (Auto) 1.3 Allen # (Auto) 1.0 H Eos # (Auto) 0.9 H Baso # (Auto) 0.1 Sodium 140 Potassium 5.1 Chloride 104 Carbon Dioxide 23 Anion Gap 17 BUN 53 H Creatinine 8.0 H* Est GFR ( Amer) 6 Est GFR (Non-Af Amer) 5 POC Glucose (mg/dL) 145 H Random Glucose 131 H D Lactic Acid Calcium 8.2 L Phosphorus 6.5 H Magnesium 2.3 Total Bilirubin 0.5 AST 25 ALT 20 Alkaline Phosphatase 115 Total Protein 7.1 Albumin 3.7 Globulin 3.4 Albumin/Globulin Ratio 1.1 Procalcitonin PTH Intact Whole Molec C. difficile Ag & Toxin 10/22/18 10/22/18 10/22/18 19:32 19:32 23:52 WBC RBC Hgb Hct MCV MCH MCHC RDW Plt Count MPV Neut % (Auto) Lymph % (Auto) Allen % (Auto) Eos % (Auto) Baso % (Auto) Neut # (Auto) Lymph # (Auto) Allen # (Auto) Eos # (Auto) Baso # (Auto) Sodium Potassium Chloride Carbon Dioxide Anion Gap BUN Creatinine Est GFR ( Amer) Est GFR (Non-Af Amer) POC Glucose (mg/dL) 154 H Random Glucose Lactic Acid 1.0 Calcium Phosphorus Magnesium Total Bilirubin AST ALT Alkaline Phosphatase Total Protein Albumin Globulin Albumin/Globulin Ratio Procalcitonin 0.29 PTH Intact Whole Molec C. difficile Ag & Toxin 10/23/18 10/23/18 10/23/18 06:05 06:07 06:07 WBC 10.2 RBC 3.99 Hgb 11.3 Hct 36.1 MCV 90.6 MCH 28.3 MCHC 31.2 L RDW 18.9 H Plt Count 248 MPV 9.6 Neut % (Auto) 53.6 Lymph % (Auto) 17.4 L Allen % (Auto) 15.2 H Eos % (Auto) 13.1 H Baso % (Auto) 0.7 Neut # (Auto) 5.5 Lymph # (Auto) 1.8 Allen # (Auto) 1.6 H Eos # (Auto) 1.3 H Baso # (Auto) 0.1 Sodium 137 Potassium 4.9 Chloride 102 Carbon Dioxide 25 Anion Gap 15 BUN 35 H Creatinine 5.0 H Est GFR ( Amer) 10 Est GFR (Non-Af Amer) 9 POC Glucose (mg/dL) 155 H Random Glucose 162 H D Lactic Acid Calcium 8.1 L Phosphorus 4.2 Magnesium 2.0 Total Bilirubin 0.5 AST 42 H D ALT 25 Alkaline Phosphatase 136 H Total Protein 7.5 Albumin 3.7 Globulin 3.7 Albumin/Globulin Ratio 1.0 Procalcitonin PTH Intact Whole Molec C. difficile Ag & Toxin Fingerstick Blood Sugar Results: 155 Critical Care Progress Note - Ventilator Checklist PUD Prophalyxis: Yes DVT Prophylaxis: Yes - Vent Settings MODE:: PRVC TIDAL VOLUME:: 450 RESP RATE:: 18 FIO2:: 50 PEEP:: 5 - Restraints Justification for Restraints: High risk for self extubation, High risk for removing IV access Assessment/Plan - Assessment and Plan (Free Text) Plan: Patient is a 72 yo female w/ PMH of CKD5, CHF, CAD s/p stents, pituiatry adenoma s/p resection, DM2 admitted for respiratory and cardiac arrest s/p permacath placement and AVF on 10-05. s/p permacath on 10-11-18; possible AMS due to anoxic brain injury, now on HD MWF, tracheostomy done on 10/18/17, Questionable new stroke as per neuro, MRI ordered to be done at [facility], patient continues to be restless, bedside PEG tube placement by GI scheduled for today. Neuro Intubated via tracheostomy, on propofol vet setting 18/450/5/50 CT head - no definitive internal acute intracranial findings as discussed above. MRI ordered - will follow up for possible today Seroquel 25mg PO Daily Ativan 1mg Q6 PRN continue Keppra 750 mg PO Q12H (changed from Qdaily) continue to monitor mental status for possible MRI CV cont Hydralazine cont Metoprolol cont Crestor Aspirin - held for PEG monitor BP, HR Pulm Chest Xray portable 10/21 -Mild pulm venous congestive changes and mild central pulm congestive changes Vent settings 18/430/5/50 Tracheostomy 10/18 Duoneb q6 hydrocortisone GI PEG tube today - Dr Akhtar continues to be afebrile now continue Tube feeds Protonix Heme EPO w/ Dialysis MWF Ferric sodium drip Renal ESRD- changed to MWF sessions EPO MWF Improved BUN/Cr post HD Nephro- Dr Segundo low BP 88/45 - albumin given yesterday, NS @ 60mls/hr bp improved today - continue to monitor Endo Levemir 30 SC Q12 Insulin regular SC Q6 Levothyroxine 50 PO daily Hydrocortisone 10 mg PO daily Q6 accuchecks ID +cx on 10-07 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 asp Cefepime Vanc with dialysis (MWF) Mupirocin 2% nasal Dr Barrios on case wound culture coagulase neg staph repeat bcx no growth after 3 days Trachasp - no growth stool culture no growth PPX DVT ppx: Heparin - held for peg GI ppx: Protonix f/u PT Plan discussed with Dr Michoacano Patton, PGY-1 - Date & Time Date: 10/23/18 Time: 09:45 <Eliseo Ríos - Last Filed: 10/23/18 18:27> CCU Objective - Vital Signs / Intake & Output Vital Signs (Last 4 hours): Vital Signs Temp Pulse Resp BP Pulse Ox 10/23/18 17:20 83 15 99 10/23/18 17:00 84 19 130/56 L 100 10/23/18 16:05 87 15 99 10/23/18 16:00 98.1 F 89 18 129/71 100 10/23/18 15:36 87 16 112/55 L 100 10/23/18 15:20 86 17 119/47 L 98 10/23/18 15:06 86 14 121/46 L 100 10/23/18 15:00 86 15 127/50 L 99 10/23/18 14:50 84 13 99 Intake and Output (Last 8hrs): Intake & Output 10/23/18 10/23/18 10/23/18 06:59 14:59 22:59 Intake Total 850 480 120 Output Total 400 Balance 450 480 120 Weight 196 lb 3.382 oz Intake: Intake, IV Amount 730 480 120 Right Upper Arm Midline 730 480 120 Oral 0 Tube Feeding 120 0 Output: Stool 400 - Medications Active Medications: Active Medications Generic Name Dose Route Start Last Admin Trade Name Estevanq PRN Reason Stop Dose Admin Acetaminophen 650 mg 10/08/18 10:08 10/19/18 11:47 Tylenol 325mg Tab PO 650 mg Q6 PRN Administration pain+fever Aspirin 81 mg 10/08/18 10:00 10/22/18 10:42 Aspirin Chewable PO 81 mg DAILY JOCELYN Administration Epoetin Dedrick 10,000 unit 10/17/18 09:00 10/22/18 22:22 Procrit IV 10,000 unit MWF JOCELYN Administration Heparin Sodium (Porcine) 5,000 units 10/15/18 10:00 10/22/18 22:50 Heparin SC 5,000 units Q12 JOCELYN Administration Hydrocortisone 10 mg 10/15/18 10:00 10/23/18 13:39 Cortef PO 10 mg DAILY JOCELYN Administration Vancomycin HCl 1 gm/ Sodium 250 mls @ 166.7 mls/hr 10/17/18 09:00 10/23/18 01:35 Chloride IVPB 166.7 mls/hr MWF JOCELYN Administration Protocol Cefepime HCl 1 gm/ Dextrose 50 mls @ 100 mls/hr 10/16/18 14:00 10/23/18 09:39 IVPB 100 mls/hr DAILY JOCELYN Administration Protocol Propofol 1,000 mg in 100 mls @ 2.682 mls/hr 10/19/18 22:41 10/21/18 21:57 Diprivan IV 5 mcg/kg/min .Q24H PRN 2.682 mls/hr TITRATE PER MD ORDER Titration Protocol 5 MCG/KG/MIN Levetiracetam 750 mg/ Sodium 107.5 mls @ 420 mls/hr 10/22/18 10:00 10/23/18 09:38 Chloride IVPB 420 mls/hr Q12H JOCELYN Administration Insulin Aspart 0 unit 10/18/18 18:00 10/23/18 17:42 Novolog SC 2 units Q6H JOCELYN Administration Protocol Insulin Detemir 30 unit 10/14/18 10:00 10/23/18 09:23 Levemir SC Not Given Q12 JOCELYN Levothyroxine Sodium 50 mcg 09/29/18 08:00 10/23/18 06:00 Synthroid PO Not Given 0600 JOCELYN Lorazepam 1 mg 10/18/18 18:27 10/23/18 13:35 Ativan IVP 1 mg Q6H PRN Administration Anxiety Metoprolol Tartrate 12.5 mg 10/19/18 22:43 10/23/18 17:37 Lopressor NG 12.5 mg BID JOCELYN Administration Mupirocin 0.25 gm 10/16/18 10:00 10/23/18 17:40 Bactroban 2% Nasal HILLARY 0.25 gm BID JOCELYN Administration Pantoprazole Sodium 40 mg 10/09/18 06:00 10/23/18 06:00 Protonix Susp PO Not Given 0600 JOCELYN Rosuvastatin Calcium 10 mg 09/30/18 22:00 10/22/18 22:50 Crestor PO 10 mg HS JOCELYN Administration - Patient Studies Lab Studies: Microbiology Studies 10/21/18 15:53 Stool Culture - Final Stool NO SALMONELLA, SHIGELLA OR CAMPYLOBACTER ISOLATED. 10/19/18 20:57 Blood Culture - Preliminary Blood-During Dialysis NO GROWTH AFTER 3 DAYS 10/19/18 18:54 Blood Culture - Preliminary Blood-During Dialysis NO GROWTH AFTER 3 DAYS Lab Studies 10/23/18 10/23/18 10/23/18 Range/Units 17:31 11:53 06:07 WBC (4.8-10.8) K/uL RBC (3.80-5.20) Mil/uL Hgb (11.0-16.0) g/dL Hct (34.0-47.0) % MCV (81.0-99.0) fL MCH (27.0-31.0) pg MCHC (33.0-37.0) g/dL RDW (11.5-14.5) % Plt Count (130-400) K/uL MPV (7.2-11.7) fL Neut % (Auto) (50.0-75.0) % Lymph % (Auto) (20.0-40.0) % Allen % (Auto) (0.0-10.0) % Eos % (Auto) (0.0-4.0) % Baso % (Auto) (0.0-2.0) % Neut # (Auto) (1.8-7.0) K/uL Lymph # (Auto) (1.0-4.3) K/uL Allen # (Auto) (0.0-0.8) K/uL Eos # (Auto) (0.0-0.7) K/uL Baso # (Auto) (0.0-0.2) K/uL Sodium 137 (132-148) mmol/L Potassium 4.9 (3.6-5.2) mmol/L Chloride 102 (98-107) mmol/L Carbon Dioxide 25 (22-30) mmol/L Anion Gap 15 (10-20) BUN 35 H (7-17) mg/dL Creatinine 5.0 H (0.7-1.2) mg/dL Est GFR ( Amer) 10 Est GFR (Non-Af Amer) 9 POC Glucose (mg/dL) 177 H 193 H (65-110) mg/dL Random Glucose 162 H D (65-105) mg/dL Lactic Acid (0.7-2.1) mmol/L Calcium 8.1 L (8.6-10.4) mg/dl Phosphorus 4.2 (2.5-4.5) mg/dL Magnesium 2.0 (1.6-2.3) mg/dL Total Bilirubin 0.5 (0.2-1.3) mg/dL AST 42 H D (14-36) U/L ALT 25 (9-52) U/L Alkaline Phosphatase 136 H (38-126) U/L Total Protein 7.5 (6.3-8.3) g/dL Albumin 3.7 (3.5-5.0) g/dL Globulin 3.7 (2.2-3.9) gm/dL Albumin/Globulin Ratio 1.0 (1.0-2.1) Procalcitonin (0.19-0.49) NG/ML C. difficile Ag & Toxin (NEGATIVE) 10/23/18 10/23/18 10/22/18 Range/Units 06:07 06:05 23:52 WBC 10.2 (4.8-10.8) K/uL RBC 3.99 (3.80-5.20) Mil/uL Hgb 11.3 (11.0-16.0) g/dL Hct 36.1 (34.0-47.0) % MCV 90.6 (81.0-99.0) fL MCH 28.3 (27.0-31.0) pg MCHC 31.2 L (33.0-37.0) g/dL RDW 18.9 H (11.5-14.5) % Plt Count 248 (130-400) K/uL MPV 9.6 (7.2-11.7) fL Neut % (Auto) 53.6 (50.0-75.0) % Lymph % (Auto) 17.4 L (20.0-40.0) % Allen % (Auto) 15.2 H (0.0-10.0) % Eos % (Auto) 13.1 H (0.0-4.0) % Baso % (Auto) 0.7 (0.0-2.0) % Neut # (Auto) 5.5 (1.8-7.0) K/uL Lymph # (Auto) 1.8 (1.0-4.3) K/uL Allen # (Auto) 1.6 H (0.0-0.8) K/uL Eos # (Auto) 1.3 H (0.0-0.7) K/uL Baso # (Auto) 0.1 (0.0-0.2) K/uL Sodium (132-148) mmol/L Potassium (3.6-5.2) mmol/L Chloride (98-107) mmol/L Carbon Dioxide (22-30) mmol/L Anion Gap (10-20) BUN (7-17) mg/dL Creatinine (0.7-1.2) mg/dL Est GFR ( Amer) Est GFR (Non-Af Amer) POC Glucose (mg/dL) 155 H 154 H (65-110) mg/dL Random Glucose (65-105) mg/dL Lactic Acid (0.7-2.1) mmol/L Calcium (8.6-10.4) mg/dl Phosphorus (2.5-4.5) mg/dL Magnesium (1.6-2.3) mg/dL Total Bilirubin (0.2-1.3) mg/dL AST (14-36) U/L ALT (9-52) U/L Alkaline Phosphatase (38-126) U/L Total Protein (6.3-8.3) g/dL Albumin (3.5-5.0) g/dL Globulin (2.2-3.9) gm/dL Albumin/Globulin Ratio (1.0-2.1) Procalcitonin (0.19-0.49) NG/ML C. difficile Ag & Toxin (NEGATIVE) 10/22/18 10/22/18 10/22/18 Range/Units 19:32 19:32 19:32 WBC (4.8-10.8) K/uL RBC (3.80-5.20) Mil/uL Hgb (11.0-16.0) g/dL Hct (34.0-47.0) % MCV (81.0-99.0) fL MCH (27.0-31.0) pg MCHC (33.0-37.0) g/dL RDW (11.5-14.5) % Plt Count (130-400) K/uL MPV (7.2-11.7) fL Neut % (Auto) (50.0-75.0) % Lymph % (Auto) (20.0-40.0) % Allen % (Auto) (0.0-10.0) % Eos % (Auto) (0.0-4.0) % Baso % (Auto) (0.0-2.0) % Neut # (Auto) (1.8-7.0) K/uL Lymph # (Auto) (1.0-4.3) K/uL Allen # (Auto) (0.0-0.8) K/uL Eos # (Auto) (0.0-0.7) K/uL Baso # (Auto) (0.0-0.2) K/uL Sodium 140 (132-148) mmol/L Potassium 5.1 (3.6-5.2) mmol/L Chloride 104 (98-107) mmol/L Carbon Dioxide 23 (22-30) mmol/L Anion Gap 17 (10-20) BUN 53 H (7-17) mg/dL Creatinine 8.0 H* (0.7-1.2) mg/dL Est GFR ( Amer) 6 Est GFR (Non-Af Amer) 5 POC Glucose (mg/dL) (65-110) mg/dL Random Glucose 131 H D (65-105) mg/dL Lactic Acid 1.0 (0.7-2.1) mmol/L Calcium 8.2 L (8.6-10.4) mg/dl Phosphorus 6.5 H (2.5-4.5) mg/dL Magnesium 2.3 (1.6-2.3) mg/dL Total Bilirubin 0.5 (0.2-1.3) mg/dL AST 25 (14-36) U/L ALT 20 (9-52) U/L Alkaline Phosphatase 115 (38-126) U/L Total Protein 7.1 (6.3-8.3) g/dL Albumin 3.7 (3.5-5.0) g/dL Globulin 3.4 (2.2-3.9) gm/dL Albumin/Globulin Ratio 1.1 (1.0-2.1) Procalcitonin 0.29 (0.19-0.49) NG/ML C. difficile Ag & Toxin (NEGATIVE) 10/22/18 10/21/18 Range/Units 19:32 19:17 WBC 7.7 (4.8-10.8) K/uL RBC 3.81 (3.80-5.20) Mil/uL Hgb 10.5 L (11.0-16.0) g/dL Hct 33.9 L (34.0-47.0) % MCV 89.0 (81.0-99.0) fL MCH 27.5 (27.0-31.0) pg MCHC 31.0 L (33.0-37.0) g/dL RDW 18.2 H (11.5-14.5) % Plt Count 319 (130-400) K/uL MPV 9.2 (7.2-11.7) fL Neut % (Auto) 56.5 (50.0-75.0) % Lymph % (Auto) 16.7 L (20.0-40.0) % Allen % (Auto) 13.5 H (0.0-10.0) % Eos % (Auto) 12.2 H (0.0-4.0) % Baso % (Auto) 1.1 (0.0-2.0) % Neut # (Auto) 4.4 (1.8-7.0) K/uL Lymph # (Auto) 1.3 (1.0-4.3) K/uL Allen # (Auto) 1.0 H (0.0-0.8) K/uL Eos # (Auto) 0.9 H (0.0-0.7) K/uL Baso # (Auto) 0.1 (0.0-0.2) K/uL Sodium (132-148) mmol/L Potassium (3.6-5.2) mmol/L Chloride (98-107) mmol/L Carbon Dioxide (22-30) mmol/L Anion Gap (10-20) BUN (7-17) mg/dL Creatinine (0.7-1.2) mg/dL Est GFR ( Amer) Est GFR (Non-Af Amer) POC Glucose (mg/dL) (65-110) mg/dL Random Glucose (65-105) mg/dL Lactic Acid (0.7-2.1) mmol/L Calcium (8.6-10.4) mg/dl Phosphorus (2.5-4.5) mg/dL Magnesium (1.6-2.3) mg/dL Total Bilirubin (0.2-1.3) mg/dL AST (14-36) U/L ALT (9-52) U/L Alkaline Phosphatase (38-126) U/L Total Protein (6.3-8.3) g/dL Albumin (3.5-5.0) g/dL Globulin (2.2-3.9) gm/dL Albumin/Globulin Ratio (1.0-2.1) Procalcitonin (0.19-0.49) NG/ML C. difficile Ag & Toxin Negative (NEGATIVE) Laboratory Results - last 24 hr 10/21/18 10/22/18 10/22/18 19:17 19:32 19:32 WBC 7.7 RBC 3.81 Hgb 10.5 L Hct 33.9 L MCV 89.0 MCH 27.5 MCHC 31.0 L RDW 18.2 H Plt Count 319 MPV 9.2 Neut % (Auto) 56.5 Lymph % (Auto) 16.7 L Allen % (Auto) 13.5 H Eos % (Auto) 12.2 H Baso % (Auto) 1.1 Neut # (Auto) 4.4 Lymph # (Auto) 1.3 Allen # (Auto) 1.0 H Eos # (Auto) 0.9 H Baso # (Auto) 0.1 Sodium 140 Potassium 5.1 Chloride 104 Carbon Dioxide 23 Anion Gap 17 BUN 53 H Creatinine 8.0 H* Est GFR ( Amer) 6 Est GFR (Non-Af Amer) 5 POC Glucose (mg/dL) Random Glucose 131 H D Lactic Acid Calcium 8.2 L Phosphorus 6.5 H Magnesium 2.3 Total Bilirubin 0.5 AST 25 ALT 20 Alkaline Phosphatase 115 Total Protein 7.1 Albumin 3.7 Globulin 3.4 Albumin/Globulin Ratio 1.1 Procalcitonin C. difficile Ag & Toxin Negative 10/22/18 10/22/18 10/22/18 19:32 19:32 23:52 WBC RBC Hgb Hct MCV MCH MCHC RDW Plt Count MPV Neut % (Auto) Lymph % (Auto) Allen % (Auto) Eos % (Auto) Baso % (Auto) Neut # (Auto) Lymph # (Auto) Allen # (Auto) Eos # (Auto) Baso # (Auto) Sodium Potassium Chloride Carbon Dioxide Anion Gap BUN Creatinine Est GFR ( Amer) Est GFR (Non-Af Amer) POC Glucose (mg/dL) 154 H Random Glucose Lactic Acid 1.0 Calcium Phosphorus Magnesium Total Bilirubin AST ALT Alkaline Phosphatase Total Protein Albumin Globulin Albumin/Globulin Ratio Procalcitonin 0.29 C. difficile Ag & Toxin 10/23/18 10/23/18 10/23/18 06:05 06:07 06:07 WBC 10.2 RBC 3.99 Hgb 11.3 Hct 36.1 MCV 90.6 MCH 28.3 MCHC 31.2 L RDW 18.9 H Plt Count 248 MPV 9.6 Neut % (Auto) 53.6 Lymph % (Auto) 17.4 L Allen % (Auto) 15.2 H Eos % (Auto) 13.1 H Baso % (Auto) 0.7 Neut # (Auto) 5.5 Lymph # (Auto) 1.8 Allen # (Auto) 1.6 H Eos # (Auto) 1.3 H Baso # (Auto) 0.1 Sodium 137 Potassium 4.9 Chloride 102 Carbon Dioxide 25 Anion Gap 15 BUN 35 H Creatinine 5.0 H Est GFR ( Amer) 10 Est GFR (Non-Af Amer) 9 POC Glucose (mg/dL) 155 H Random Glucose 162 H D Lactic Acid Calcium 8.1 L Phosphorus 4.2 Magnesium 2.0 Total Bilirubin 0.5 AST 42 H D ALT 25 Alkaline Phosphatase 136 H Total Protein 7.5 Albumin 3.7 Globulin 3.7 Albumin/Globulin Ratio 1.0 Procalcitonin C. difficile Ag & Toxin 10/23/18 10/23/18 11:53 17:31 WBC RBC Hgb Hct MCV MCH MCHC RDW Plt Count MPV Neut % (Auto) Lymph % (Auto) Allen % (Auto) Eos % (Auto) Baso % (Auto) Neut # (Auto) Lymph # (Auto) Allen # (Auto) Eos # (Auto) Baso # (Auto) Sodium Potassium Chloride Carbon Dioxide Anion Gap BUN Creatinine Est GFR ( Amer) Est GFR (Non-Af Amer) POC Glucose (mg/dL) 193 H 177 H Random Glucose Lactic Acid Calcium Phosphorus Magnesium Total Bilirubin AST ALT Alkaline Phosphatase Total Protein Albumin Globulin Albumin/Globulin Ratio Procalcitonin C. difficile Ag & Toxin Attending/Attestation - Attestation I have personally seen and examined this patient.: Yes I have fully participated in the care of the patient.: Yes I have reviewed all pertinent clinical information: Yes Notes (Text): 10/23/18 18:27 Patient seen and examined in the intensive care unit. Status post PEG insertion Continue hemodialysis Patient seen by neurology and for repeat MRI of the head
--- NOTE | 2018-10-23 08:58 | PN ---
DATE: 10/23/2018 TIME OF EVALUATION: 7:15 a.m. 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 PHYSICAL EXAMINATION: VITAL SIGNS: Blood pressure 146/56 with a mean arterial pressure of 74, pulse rate 82, afebrile. The patient is not on sedation. History of episodes of hypotension yesterday with no clear documented reason. The patient tolerating dialysis. The patient's status, moving both lower extremities. Nonverbal. Not following any commands. Spontaneously moving her arms, right more than her left. Cranial nerve examinations are unchanged. 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 The patient's Keppra dose was increased to 750 mg twice a day. The patient definitely need MRI of the brain to further localizing intracranial pathology from her hypoperfusion or new episodes. That can be done in [facility] while she is intubated. Continue Keppra and I would like to repeat electroencephalogram to assess her electrographic activities with the current antiepileptic drug dose. The patient can be seen and discussed with the registered nurse. The patient will be followed closely with you. Blu Yost MD
[2018-10-23] MEDS: Insulin Detemir 100 units/ml Vial (Levemir) SC SCH ×2 (09:23→21:29)
[2018-10-23] MEDS: Mupirocin 2% Ointment (NASAL) NAS SCH ×2 (10:00→17:40)
[2018-10-23] MEDS ORDERED: Propofol 10 mg/ml Inj (20 ML) ONE (10:42)
--- NOTE | 2018-10-23 10:52 | CP.PCM.PN ---
Subjective - Date & Time of Evaluation Date of Evaluation: 10/23/18 Time of Evaluation: 10:50 - Subjective Subjective: seen and examined trach-vent no events bp stable hd yesterday getting peg care discussed w/ daughter Objective - Vital Signs/Intake and Output Vital Signs (last 24 hours): Temp Pulse Resp BP Pulse Ox 100.2 F H 84 19 150/59 L 100 10/23/18 08:00 10/23/18 10:00 10/23/18 10:00 10/23/18 10:00 10/23/18 10:00 Intake and Output: 10/23/18 10/23/18 06:59 18:59 Intake Total 1560 240 Output Total 400 Balance 1160 240 - Medications Medications: Current Medications Acetaminophen (Tylenol 325mg Tab) 650 mg PO Q6 PRN PRN Reason: pain+fever Last Admin: 10/19/18 11:47 Dose: 650 mg Aspirin (Aspirin Chewable) 81 mg PO DAILY [facility] Last Admin: 10/22/18 10:42 Dose: 81 mg Epoetin Dedrick (Procrit) 10,000 unit IV [facility] [place] Last Admin: 10/22/18 22:22 Dose: 10,000 unit Heparin Sodium (Porcine) (Heparin) 5,000 units SC Q12 [facility] Last Admin: 10/22/18 22:50 Dose: 5,000 units Hydrocortisone (Cortef) 10 mg PO DAILY [facility] Last Admin: 10/22/18 10:41 Dose: 10 mg Ferric Sodium Gluconate Complex 125 mg/ Sodium Chloride 110 mls @ 110 mls/hr IVPB Q24H [facility] Stop: 10/23/18 11:31 Last Admin: 10/22/18 14:09 Dose: 110 mls/hr Vancomycin HCl 1 gm/ Sodium (Chloride) 250 mls @ 166.7 mls/hr IVPB MWF [facility]; Protocol Last Admin: 10/23/18 01:35 Dose: 166.7 mls/hr Cefepime HCl 1 gm/ Dextrose 50 mls @ 100 mls/hr IVPB DAILY [facility]; Protocol Last Admin: 10/23/18 09:39 Dose: 100 mls/hr Propofol (Diprivan) 1,000 mg in 100 mls @ 2.682 mls/hr IV .Q24H PRN; Protocol PRN Reason: TITRATE PER MD ORDER Last Titration: 10/21/18 21:57 Dose: 5 mcg/kg/min, 2.682 mls/hr Levetiracetam 750 mg/ Sodium (Chloride) 107.5 mls @ 420 mls/hr IVPB Q12H [facility] Last Admin: 10/23/18 09:38 Dose: 420 mls/hr Sodium Chloride (Sodium Chloride 0.9%) 1,000 mls @ 60 mls/hr IV .[id number] [facility] Last Admin: 10/23/18 01:30 Dose: 60 mls/hr Insulin Aspart (Novolog) 0 unit SC Q6H [facility]; Protocol Last Admin: 10/23/18 06:00 Dose: Not Given Insulin Detemir (Levemir) 30 unit SC Q12 [facility] Last Admin: 10/23/18 09:23 Dose: Not Given Levothyroxine Sodium (Synthroid) 50 mcg PO 0600 [facility] Last Admin: 10/23/18 06:00 Dose: Not Given Lorazepam (Ativan) 1 mg IVP Q6H PRN PRN Reason: Anxiety Last Admin: 10/19/18 17:38 Dose: 1 mg Metoprolol Tartrate (Lopressor) 12.5 mg NG BID [facility] Last Admin: 10/22/18 18:11 Dose: 12.5 mg Mupirocin (Bactroban 2% Nasal) 0.25 gm HILLARY BID [facility] Last Admin: 10/22/18 18:11 Dose: 0.25 gm Pantoprazole Sodium (Protonix Susp) 40 mg PO 0600 [facility] Last Admin: 10/23/18 06:00 Dose: Not Given Rosuvastatin Calcium (Crestor) 10 mg PO HS [facility] Last Admin: 10/22/18 22:50 Dose: 10 mg - Labs Labs: 10/23/18 06:07 10/23/18 06:07 PT 14.1 SECONDS (9.7-12.2) H 10/19/18 06:21 INR 1.3 10/19/18 06:21 APTT 38 SECONDS (21-34) H 10/19/18 06:21 - Constitutional Appears: Non-toxic, No Acute Distress, Chronically Ill - Head Exam Head Exam: NORMAL INSPECTION, NORMOCEPHALIC - Eye Exam Eye Exam: Normal appearance, PERRL - ENT Exam ENT Exam: Mucous Membranes Dry (trach-vent) - Respiratory Exam Respiratory Exam: Decreased Breath Sounds, NORMAL BREATHING PATTERN (b/l air entry) - Cardiovascular Exam Cardiovascular Exam: REGULAR RHYTHM, RRR - GI/Abdominal Exam GI & Abdominal Exam: Distended, Soft - Extremities Exam Extremities Exam: Normal Inspection - Neurological Exam Neurological Exam: Altered, Awake. absent: Alert - Skin Skin Exam: Normal Color, Warm Assessment and Plan (1) ESRD (end stage renal disease) Status: Acute (2) CAD (coronary artery disease) Status: Acute (3) CHF (congestive heart failure) Status: Acute (4) Hypertension Status: Acute - Assessment and Plan (Free Text) Assessment: hd mwf tube feeds outpt placement hgb at goal
[2018-10-23] MEDS ORDERED: Sodium Chloride 0.9% 900 ML IV ONE (11:10)
--- NOTE | 2018-10-23 13:41 | CP.PCM.PN ---
<Av Colby - Last Filed: 10/23/18 18:43> Subjective - Date & Time of Evaluation Date of Evaluation: 10/23/18 Time of Evaluation: 13:41 - Subjective Subjective: Cardiology Service: Dr. Wagoner's Service Patient seen and examined at bedside. Per nursing no acute events occurred overnight. ROS unobtainable due to patient's current clinical condition. Patient remains intubated and sedated. Objective - Vital Signs/Intake and Output Vital Signs (last 24 hours): Temp Pulse Resp BP Pulse Ox 100.1 F H 85 18 144/56 L 98 10/23/18 12:00 10/23/18 12:35 10/23/18 12:35 10/23/18 12:30 10/23/18 12:35 Intake and Output: 10/23/18 10/23/18 06:59 18:59 Intake Total 1560 360 Output Total 400 Balance 1160 360 - Medications Medications: Current Medications Acetaminophen (Tylenol 325mg Tab) 650 mg PO Q6 PRN PRN Reason: pain+fever Last Admin: 10/19/18 11:47 Dose: 650 mg Aspirin (Aspirin Chewable) 81 mg PO DAILY [facility] Last Admin: 10/22/18 10:42 Dose: 81 mg Epoetin Dedrick (Procrit) 10,000 unit IV [facility] [place] Last Admin: 10/22/18 22:22 Dose: 10,000 unit Heparin Sodium (Porcine) (Heparin) 5,000 units SC Q12 [facility] Last Admin: 10/22/18 22:50 Dose: 5,000 units Hydrocortisone (Cortef) 10 mg PO DAILY [facility] Last Admin: 10/23/18 13:39 Dose: 10 mg Vancomycin HCl 1 gm/ Sodium (Chloride) 250 mls @ 166.7 mls/hr IVPB MWF [facility]; Protocol Last Admin: 10/23/18 01:35 Dose: 166.7 mls/hr Cefepime HCl 1 gm/ Dextrose 50 mls @ 100 mls/hr IVPB DAILY [facility]; Protocol Last Admin: 10/23/18 09:39 Dose: 100 mls/hr Propofol (Diprivan) 1,000 mg in 100 mls @ 2.682 mls/hr IV .Q24H PRN; Protocol PRN Reason: TITRATE PER MD ORDER Last Titration: 10/21/18 21:57 Dose: 5 mcg/kg/min, 2.682 mls/hr Levetiracetam 750 mg/ Sodium (Chloride) 107.5 mls @ 420 mls/hr IVPB Q12H [facility] Last Admin: 10/23/18 09:38 Dose: 420 mls/hr Sodium Chloride (Sodium Chloride 0.9%) 1,000 mls @ 60 mls/hr IV .[id number] [facility] Last Admin: 10/23/18 01:30 Dose: 60 mls/hr Insulin Aspart (Novolog) 0 unit SC Q6H [facility]; Protocol Last Admin: 10/23/18 06:00 Dose: Not Given Insulin Detemir (Levemir) 30 unit SC Q12 [facility] Last Admin: 10/23/18 09:23 Dose: Not Given Levothyroxine Sodium (Synthroid) 50 mcg PO 0600 [facility] Last Admin: 10/23/18 06:00 Dose: Not Given Lorazepam (Ativan) 1 mg IVP Q6H PRN PRN Reason: Anxiety Last Admin: 10/23/18 13:35 Dose: 1 mg Metoprolol Tartrate (Lopressor) 12.5 mg NG BID [facility] Last Admin: 10/23/18 10:00 Dose: Not Given Mupirocin (Bactroban 2% Nasal) 0.25 gm HILLARY BID [facility] Last Admin: 10/22/18 18:11 Dose: 0.25 gm Pantoprazole Sodium (Protonix Susp) 40 mg PO 0600 [facility] Last Admin: 10/23/18 06:00 Dose: Not Given Rosuvastatin Calcium (Crestor) 10 mg PO HS [facility] Last Admin: 10/22/18 22:50 Dose: 10 mg - Labs Labs: 10/23/18 06:07 10/23/18 06:07 PT 14.1 SECONDS (9.7-12.2) H 10/19/18 06:21 INR 1.3 10/19/18 06:21 APTT 38 SECONDS (21-34) H 10/19/18 06:21 - Head Exam Head Exam: ATRAUMATIC, NORMAL INSPECTION - Eye Exam Eye Exam: EOMI, Normal appearance Pupil Exam: NORMAL ACCOMODATION - ENT Exam ENT Exam: Mucous Membranes Moist, Normal Oropharynx - Respiratory Exam Respiratory Exam: Clear to Ausculation Bilateral, NORMAL BREATHING PATTERN - Cardiovascular Exam Cardiovascular Exam: REGULAR RHYTHM, +S1, +S2 - GI/Abdominal Exam GI & Abdominal Exam: Soft, Normal Bowel Sounds - Extremities Exam Extremities Exam: absent: Pedal Edema - Neurological Exam Neurological Exam: Altered - Psychiatric Exam Psychiatric exam: Normal Affect, Normal Mood - Skin Skin Exam: Dry, Intact Assessment and Plan - Assessment and Plan (Free Text) Assessment: 72 year old female with past medical history of CAD, CHF, HTN, HLD, pituitary adenoma, is being seen s/p respiratory arrest during AV fistula placement surgery. s/p permacath on 10-11-18; possible AMS due to anoxic brain injury, now on HD MWF, tracheostomy done on 10/18/17, planning for PEG placement by GI today. Plan: Respiratory failure - Currently intubated and sedated. Management per primary care team - Completed hypothermic protocol -Bedside PEG placement completed today. Medications: Propofol 5mcg/kg/min q24 prn Ativan 1mg IVP Q6H prn Levetiracetam 420mls/hrIVPB Q12H [facility] MRSA in trach -Continue Cefepime 1gm ivpb daily -Continue Vancomycin 1gm ivpb mwf Anoxic brain injury -Pending repeat MRI at [place]. Patient remains agigtated and unable to go for imaging at this time. HTN -Lopressor 12.5mg NG BID [facility] HLD -Continue Rosuvastatin 10mg PO HS [facility] CAD -Continue Aspirin 81mg PO Daily [facility] DM -Levemir 30UNIT sc q12 mir Hypothyroidism -Continue Synthroid 50mcg PO 0600 [facility] CKD on HD - S/p right permacath placed on 10/11 -Procrit 10,000 unit IV MWF ppx -Protonix -Heparin All management per Dr. Wagoner. Av Colby, PGY-2 <Jimmy Wagoner - Last Filed: 10/23/18 22:13> Objective - Vital Signs/Intake and Output Vital Signs (last 24 hours): Temp Pulse Resp BP Pulse Ox 98 F 87 17 153/59 H 100 10/23/18 20:00 10/23/18 21:00 10/23/18 21:00 10/23/18 20:53 10/23/18 21:00 Intake and Output: 10/23/18 10/24/18 18:59 06:59 Intake Total 625 225 Output Total 50 Balance 575 225 - Medications Medications: Current Medications Acetaminophen (Tylenol 325mg Tab) 650 mg PO Q6 PRN PRN Reason: pain+fever Last Admin: 10/19/18 11:47 Dose: 650 mg Aspirin (Aspirin Chewable) 81 mg PO DAILY [facility] Last Admin: 10/22/18 10:42 Dose: 81 mg Epoetin Dedrick (Procrit) 10,000 unit IV MWF [facility] Last Admin: 10/22/18 22:22 Dose: 10,000 unit Heparin Sodium (Porcine) (Heparin) 5,000 units SC Q12 [facility] Last Admin: 10/22/18 22:50 Dose: 5,000 units Hydrocortisone (Cortef) 10 mg PO DAILY [facility] Last Admin: 10/23/18 13:39 Dose: 10 mg Vancomycin HCl 1 gm/ Sodium (Chloride) 250 mls @ 166.7 mls/hr IVPB MWF [facility]; Protocol Last Admin: 10/23/18 01:35 Dose: 166.7 mls/hr Cefepime HCl 1 gm/ Dextrose 50 mls @ 100 mls/hr IVPB DAILY [facility]; Protocol Last Admin: 10/23/18 09:39 Dose: 100 mls/hr Levetiracetam 750 mg/ Sodium (Chloride) 107.5 mls @ 420 mls/hr IVPB Q12H [facility] Last Admin: 10/23/18 21:28 Dose: 420 mls/hr Insulin Aspart (Novolog) 0 unit SC Q6H [facility]; Protocol Last Admin: 10/23/18 17:42 Dose: 2 units Insulin Detemir (Levemir) 30 unit SC Q12 [facility] Last Admin: 10/23/18 21:29 Dose: 30 u Levothyroxine Sodium (Synthroid) 50 mcg PO 0600 [facility] Last Admin: 10/23/18 06:00 Dose: Not Given Metoprolol Tartrate (Lopressor) 12.5 mg NG BID [facility] Last Admin: 10/23/18 17:37 Dose: 12.5 mg Mupirocin (Bactroban 2% Nasal) 0.25 gm HILLARY BID [facility] Last Admin: 10/23/18 17:40 Dose: 0.25 gm Pantoprazole Sodium (Protonix Susp) 40 mg PO 0600 [facility] Last Admin: 10/23/18 06:00 Dose: Not Given Rosuvastatin Calcium (Crestor) 10 mg PO [facility] Last Admin: 10/23/18 21:29 Dose: 10 mg - Labs Labs: 10/23/18 06:07 10/23/18 06:07 PT 14.1 SECONDS (9.7-12.2) H 10/19/18 06:21 INR 1.3 10/19/18 06:21 APTT 38 SECONDS (21-34) H 10/19/18 06:21 Assessment and Plan - Assessment and Plan (Free Text) Assessment: Patient seen and examined personally by me. Plan of care d/w the medical office scheduler and as documented
--- NOTE | 2018-10-23 15:37 | CP.PCM.PN ---
Subjective - Date & Time of Evaluation Date of Evaluation: 10/23/18 Time of Evaluation: 15:15 - Subjective Subjective: dictated Objective - Vital Signs/Intake and Output Vital Signs (last 24 hours): Temp Pulse Resp BP Pulse Ox 100.1 F H 79 14 101/48 L 99 10/23/18 12:00 10/23/18 13:50 10/23/18 13:50 10/23/18 13:00 10/23/18 13:50 Intake and Output: 10/23/18 10/23/18 06:59 18:59 Intake Total 1560 420 Output Total 400 Balance 1160 420 - Medications Medications: Current Medications Acetaminophen (Tylenol 325mg Tab) 650 mg PO Q6 PRN PRN Reason: pain+fever Last Admin: 10/19/18 11:47 Dose: 650 mg Aspirin (Aspirin Chewable) 81 mg PO DAILY [facility] Last Admin: 10/22/18 10:42 Dose: 81 mg Epoetin Dedrick (Procrit) 10,000 unit IV [facility] [place] Last Admin: 10/22/18 22:22 Dose: 10,000 unit Heparin Sodium (Porcine) (Heparin) 5,000 units SC Q12 [facility] Last Admin: 10/22/18 22:50 Dose: 5,000 units Hydrocortisone (Cortef) 10 mg PO DAILY [facility] Last Admin: 10/23/18 13:39 Dose: 10 mg Vancomycin HCl 1 gm/ Sodium (Chloride) 250 mls @ 166.7 mls/hr IVPB [facility] [place]; Protocol Last Admin: 10/23/18 01:35 Dose: 166.7 mls/hr Cefepime HCl 1 gm/ Dextrose 50 mls @ 100 mls/hr IVPB DAILY [facility]; Protocol Last Admin: 10/23/18 09:39 Dose: 100 mls/hr Propofol (Diprivan) 1,000 mg in 100 mls @ 2.682 mls/hr IV .Q24H PRN; Protocol PRN Reason: TITRATE PER MD ORDER Last Titration: 10/21/18 21:57 Dose: 5 mcg/kg/min, 2.682 mls/hr Levetiracetam 750 mg/ Sodium (Chloride) 107.5 mls @ 420 mls/hr IVPB Q12H [facility] Last Admin: 10/23/18 09:38 Dose: 420 mls/hr Sodium Chloride (Sodium Chloride 0.9%) 1,000 mls @ 60 mls/hr IV .[id number] [facility] Last Admin: 10/23/18 01:30 Dose: 60 mls/hr Insulin Aspart (Novolog) 0 unit SC Q6H [facility]; Protocol Last Admin: 10/23/18 12:00 Dose: Not Given Insulin Detemir (Levemir) 30 unit SC Q12 [facility] Last Admin: 10/23/18 09:23 Dose: Not Given Levothyroxine Sodium (Synthroid) 50 mcg PO 0600 [facility] Last Admin: 10/23/18 06:00 Dose: Not Given Lorazepam (Ativan) 1 mg IVP Q6H PRN PRN Reason: Anxiety Last Admin: 10/23/18 13:35 Dose: 1 mg Metoprolol Tartrate (Lopressor) 12.5 mg NG BID [facility] Last Admin: 10/23/18 10:00 Dose: Not Given Mupirocin (Bactroban 2% Nasal) 0.25 gm HILLARY BID [facility] Last Admin: 10/23/18 10:00 Dose: 0.25 gm Pantoprazole Sodium (Protonix Susp) 40 mg PO 0600 [facility] Last Admin: 10/23/18 06:00 Dose: Not Given Rosuvastatin Calcium (Crestor) 10 mg PO HS [facility] Last Admin: 10/22/18 22:50 Dose: 10 mg - Labs Labs: 10/23/18 06:07 10/23/18 06:07 PT 14.1 SECONDS (9.7-12.2) H 10/19/18 06:21 INR 1.3 10/19/18 06:21 APTT 38 SECONDS (21-34) H 10/19/18 06:21
[2018-10-23] MEDS: Ferric Sodium Gluconat Complex 125 MG in Sodium Chloride 0.9% 100 ML IVPB SCH (16:08)
--- NOTE | 2018-10-24 04:41 | PN ---
DATE: 10/23/2018 INFECTIOUS DISEASE FOLLOWUP SUBJECTIVE: The patient was seen this afternoon. She remains unconscious, on a trach-vent. PHYSICAL EXAMINATION: VITAL SIGNS: T-max is 98.1, pulse is 89, blood pressure of 129/71, respirations are 18. HEENT: Head is atraumatic. Unresponsive. NECK: Supple. LUNGS: Clear. HEART: S1 and S2 are regular. ABDOMEN: Soft. Nontender. No guarding, no rigidity present. EXTREMITIES: Have bilateral foot protectors. She was going to get hemodialysis now. LABORATORY DATA: White count is 10.2, hemoglobin 11.3, hematocrit 36.1, platelet count is 248. BUN is 35, creatinine remains 5. She is a dialysis patient. MEDICATIONS: She remains on vancomycin and cefepime. Her last chest x-ray shows which was on 10/21/2018 shows tracheostomy, right dialysis catheter in situ nasogastric tube which has been included through distal aspect just well below EG junction, mild pulmonary congestion, cardiomegaly, mild CV congestive changes. ASSESSMENT AND PLAN: So at this time, she was started on based on her tracheal aspirator, we are almost eight days into the treatment. We will give for two more days and then we can stop the antibiotics. She is status post tracheostomy and remains with chronic respiratory failure with anoxic encephalopathy, and end-stage renal disease. Sara Barrios MD
[2018-10-24 05:57] LABS: BASO # 0.1 K/uL (0.0-0.2); BASO % 1.1 % (0.0-2.0); EOS # 1.2 K/uL (0.0-0.7); EOS % 14.6 % (0.0-4.0); HEMOGLOBIN 9.7 g/dL (11.0-16.0); LYMPH # 1.7 K/uL (1.0-4.3); LYMPH % 20.5 % (20.0-40.0); MEAN CELL VOLUME 90.8 fL (81.0-99.0); MEAN CORPUSCULAR HEMOGLOBIN 28.2 pg (27.0-31.0); MEAN CORPUSCULAR HGB CONC 31.1 g/dL (33.0-37.0); MEAN PLATELET VOLUME 9.9 fL (7.2-11.7); MONO # 1.3 K/uL (0.0-0.8); MONO % 15.3 % (0.0-10.0); NEUT # 4.1 K/uL (1.8-7.0); NEUT % 48.5 % (50.0-75.0); RBC 3.45 Mil/uL (3.80-5.20); RED CELL DISTRIBUTION WIDTH 18.5 % (11.5-14.5); WHITE BLOOD COUNT 8.5 K/uL (4.8-10.8)
[2018-10-24] MEDS: Pantoprazole 40 mg Susp UD PO SCH (05:58)
[2018-10-24] MEDS: (Novolog) Insulin Aspart, Recombinant 100 u/ml 10 ml vial SC SCH ×3 (05:58→18:31)
[2018-10-24] MEDS: Levothyroxine 50 MCG TAB PO SCH (05:58)
[2018-10-24 06:18] LABS: ALBUMIN 3.3 g/dL (3.5-5.0); CALCIUM 8.2 mg/dl (8.6-10.4)
[2018-10-24] MEDS: Mupirocin 2% Ointment (NASAL) NAS SCH ×2 (09:24→22:16)
[2018-10-24] MEDS: Insulin Detemir 100 units/ml Vial (Levemir) SC SCH ×2 (09:26→21:15)
--- NOTE | 2018-10-24 09:30 | PN ---
DATE: 10/21/2018 TIME OF EVALUATION: 07:05 a.m. NEUROLOGICAL PROBLEM: Hypoperfusion syndrome manifesting with nonconvulsive status. PHYSICAL EXAMINATION: VITAL SIGNS: Blood pressure 146/58, mean arterial pressure of 77, respiratory rate is 16, temperature afebrile. The patient undergoing dialysis at present. The patient examination is unchanged. The patient moves all four extremities against the gravity. Responds to pain by grimacing. Nonverbal and not following any commands. Recent encephalogram been reviewed by me, does not show any paroxysmal activities which were seen during her previous study. However, generalized slow activity is consistent with her current problem. Her recommended MRI is still pending to rule out any intracranial pathology from her hypoperfusion. Continue the present management. The patient on track and PEG. Continue hemodialysis. Continue Keppra 750 mg twice a day as she has been getting. Blu Yost MD
--- NOTE | 2018-10-24 10:38 | CP.CCUPN ---
<Dyllan Patton - Last Filed: 10/24/18 12:40> CCU Subjective - Physician Review Subjective (Free Text): PGY-1 ICU progress note for Dr Michoacano black Pt seen and examined at bedside. Patient is resting in bed, seen to be awake, moving extremities intermittently. Patient had PEG tube placed yesterday. As per nurse, Patient IJ cath/port-cath not working properly for HD, dialysis was not performed this am. ROS unttainable due to patient's mental status. Critical Care Time Spent (in minutes): 35 CCU Objective - Vital Signs / Intake & Output Vital Signs (Last 4 hours): Vital Signs Temp Pulse Pulse Resp BP BP Pulse Ox 10/24/18 09:27 100.0 F H 10/24/18 07:55 135/75 10/24/18 07:35 135/62 10/24/18 07:20 100 F H 79 19 155/65 H 100 10/24/18 07:03 80 16 146/58 L 100 10/24/18 07:00 80 14 100 10/24/18 06:53 155/54 H Intake and Output (Last 8hrs): Intake & Output 10/23/18 10/24/18 10/24/18 22:59 06:59 14:59 Intake Total 445 200 25 Output Total 50 50 Balance 395 150 25 Weight 200 lb Intake: Intake, IV Amount 220 Right Upper Arm Midline 220 Oral 0 Tube Feeding 125 200 25 Other 100 Output: Stool 50 50 - Physical Exam Head: Positive for: Atraumatic, Normocephalic Extroacular Muscles: Positive for: EOMI (dropping eyelid left) Conjunctiva: Positive for: Normal Mouth: Positive for: Dry Neck: Positive for: Other (tracheostomy in place with vent) Respiratory/Chest: Positive for: Decreased Breath Sounds, Other (intubated ). Negative for: Respiratory Distress, Accessory Muscle Use, Tachypneic Cardiovascular: Positive for: Regular Rate and Rhythm, Normal S1, S2 Abdomen: Positive for: Normal Bowel Sounds, Other (PEG tube in place ). Negative for: Tenderness, Distention, Rebound, Guarding Upper Extremity: Positive for: Normal Inspection. Negative for: Cyanosis, Edema Lower Extremity: Positive for: Normal Inspection. Negative for: Edema Neurological: Negative for: GCS=15, CN II-XII Intact, Speech Normal Skin: Positive for: Warm, Dry, Normal Color, Other (permacath in place, right femoral TLC) Psychiatric: Positive for: Agitated. Negative for: Alert, Oriented x 3, Normal Insight, Normal Concentration - Medications Active Medications: Active Medications Generic Name Dose Route Start Last Admin Trade Name Freq PRN Reason Stop Dose Admin Acetaminophen 650 mg 10/08/18 10:08 10/24/18 09:27 Tylenol 325mg Tab PO 650 mg Q6 PRN Administration pain+fever Aspirin 81 mg 10/08/18 10:00 10/24/18 09:24 Aspirin Chewable PO 81 mg DAILY JOCELYN Administration Epoetin Dedrick 10,000 unit 10/17/18 09:00 10/22/18 22:22 Procrit IV 10,000 unit [facility] Administration Heparin Sodium (Porcine) 5,000 units 10/15/18 10:00 10/24/18 09:25 Heparin SC 5,000 units Q12 JOCELYN Administration Hydrocortisone 10 mg 10/15/18 10:00 10/24/18 09:24 Cortef PO 10 mg DAILY JOCELYN Administration Vancomycin HCl 1 gm/ Sodium 250 mls @ 166.7 mls/hr 10/17/18 09:00 10/23/18 01:35 Chloride IVPB 166.7 mls/hr [facility] JOCELYN Administration Protocol Cefepime HCl 1 gm/ Dextrose 50 mls @ 100 mls/hr 10/16/18 14:00 10/24/18 09:38 IVPB 100 mls/hr DAILY JOCELYN Administration Protocol Levetiracetam 750 mg/ Sodium 107.5 mls @ 420 mls/hr 10/22/18 10:00 10/24/18 09:37 Chloride IVPB 420 mls/hr Q12H JOCELYN Administration Insulin Aspart 0 unit 10/18/18 18:00 10/24/18 05:58 Novolog SC 2 units Q6H JOCELYN Administration Protocol Insulin Detemir 30 unit 10/14/18 10:00 10/24/18 09:26 Levemir SC 30 u Q12 JOCELYN Administration Levothyroxine Sodium 50 mcg 09/29/18 08:00 10/24/18 05:58 Synthroid PO 50 mcg 0600 JOCELYN Administration Metoprolol Tartrate 12.5 mg 10/19/18 22:43 10/24/18 09:26 Lopressor NG 12.5 mg BID JOCELYN Administration Mupirocin 0.25 gm 10/16/18 10:00 10/24/18 09:24 Bactroban 2% Nasal HILLARY 0.25 gm BID JOCELYN Administration Pantoprazole Sodium 40 mg 10/09/18 06:00 10/24/18 05:58 Protonix Susp PO 40 mg 0600 JOCELYN Administration Rosuvastatin Calcium 10 mg 09/30/18 22:00 10/23/18 21:29 Crestor PO 10 mg HS JOCELYN Administration - Patient Studies Lab Studies: Microbiology Studies 10/19/18 20:57 Blood Culture - Preliminary Blood-During Dialysis NO GROWTH AFTER 4 DAYS 10/19/18 18:54 Blood Culture - Preliminary Blood-During Dialysis NO GROWTH AFTER 4 DAYS 10/21/18 15:53 Stool Culture - Final Stool NO SALMONELLA, SHIGELLA OR CAMPYLOBACTER ISOLATED. Lab Studies 10/24/18 10/24/18 10/24/18 Range/Units 05:49 05:49 05:15 WBC 8.5 (4.8-10.8) K/uL RBC 3.45 L (3.80-5.20) Mil/uL Hgb 9.7 L (11.0-16.0) g/dL Hct 31.3 L (34.0-47.0) % MCV 90.8 (81.0-99.0) fL MCH 28.2 (27.0-31.0) pg MCHC 31.1 L (33.0-37.0) g/dL RDW 18.5 H (11.5-14.5) % Plt Count 217 (130-400) K/uL MPV 9.9 (7.2-11.7) fL Neut % (Auto) 48.5 L (50.0-75.0) % Lymph % (Auto) 20.5 (20.0-40.0) % [place] % (Auto) 15.3 H (0.0-10.0) % Eos % (Auto) 14.6 H (0.0-4.0) % Baso % (Auto) 1.1 (0.0-2.0) % Neut # (Auto) 4.1 (1.8-7.0) K/uL Lymph # (Auto) 1.7 (1.0-4.3) K/uL [place] # (Auto) 1.3 H (0.0-0.8) K/uL Eos # (Auto) 1.2 H (0.0-0.7) K/uL Baso # (Auto) 0.1 (0.0-0.2) K/uL Sodium 138 (132-148) mmol/L Potassium 4.1 (3.6-5.2) mmol/L Chloride 105 (98-107) mmol/L Carbon Dioxide 23 (22-30) mmol/L Anion Gap 15 (10-20) BUN 41 H (7-17) mg/dL Creatinine 6.8 H (0.7-1.2) mg/dL Est GFR ( Amer) 7 Est GFR (Non-Af Amer) 6 POC Glucose (mg/dL) 189 H (65-110) mg/dL Random Glucose 192 H (65-105) mg/dL Calcium 8.2 L (8.6-10.4) mg/dl Phosphorus 5.2 H (2.5-4.5) mg/dL Total Bilirubin 0.4 (0.2-1.3) mg/dL AST 30 (14-36) U/L ALT 24 (9-52) U/L Alkaline Phosphatase 123 (38-126) U/L Total Protein 6.5 (6.3-8.3) g/dL Albumin 3.3 L (3.5-5.0) g/dL Globulin 3.3 (2.2-3.9) gm/dL Albumin/Globulin Ratio 1.0 (1.0-2.1) 10/23/18 10/23/18 10/23/18 Range/Units 23:46 17:31 11:53 WBC (4.8-10.8) K/uL RBC (3.80-5.20) Mil/uL Hgb (11.0-16.0) g/dL Hct (34.0-47.0) % MCV (81.0-99.0) fL MCH (27.0-31.0) pg MCHC (33.0-37.0) g/dL RDW (11.5-14.5) % Plt Count (130-400) K/uL MPV (7.2-11.7) fL Neut % (Auto) (50.0-75.0) % Lymph % (Auto) (20.0-40.0) % [place] % (Auto) (0.0-10.0) % Eos % (Auto) (0.0-4.0) % Baso % (Auto) (0.0-2.0) % Neut # (Auto) (1.8-7.0) K/uL Lymph # (Auto) (1.0-4.3) K/uL [place] # (Auto) (0.0-0.8) K/uL Eos # (Auto) (0.0-0.7) K/uL Baso # (Auto) (0.0-0.2) K/uL Sodium (132-148) mmol/L Potassium (3.6-5.2) mmol/L Chloride (98-107) mmol/L Carbon Dioxide (22-30) mmol/L Anion Gap (10-20) BUN (7-17) mg/dL Creatinine (0.7-1.2) mg/dL Est GFR ( Amer) Est GFR (Non-Af Amer) POC Glucose (mg/dL) 200 H 177 H 193 H (65-110) mg/dL Random Glucose (65-105) mg/dL Calcium (8.6-10.4) mg/dl Phosphorus (2.5-4.5) mg/dL Total Bilirubin (0.2-1.3) mg/dL AST (14-36) U/L ALT (9-52) U/L Alkaline Phosphatase (38-126) U/L Total Protein (6.3-8.3) g/dL Albumin (3.5-5.0) g/dL Globulin (2.2-3.9) gm/dL Albumin/Globulin Ratio (1.0-2.1) Laboratory Results - last 24 hr 10/23/18 10/23/18 10/23/18 11:53 17:31 23:46 WBC RBC Hgb Hct MCV MCH MCHC RDW Plt Count MPV Neut % (Auto) Lymph % (Auto) [place] % (Auto) Eos % (Auto) Baso % (Auto) Neut # (Auto) Lymph # (Auto) [place] # (Auto) Eos # (Auto) Baso # (Auto) Sodium Potassium Chloride Carbon Dioxide Anion Gap BUN Creatinine Est GFR ( Amer) Est GFR (Non-Af Amer) POC Glucose (mg/dL) 193 H 177 H 200 H Random Glucose Calcium Phosphorus Total Bilirubin AST ALT Alkaline Phosphatase Total Protein Albumin Globulin Albumin/Globulin Ratio 10/24/18 10/24/18 10/24/18 05:15 05:49 05:49 WBC 8.5 RBC 3.45 L Hgb 9.7 L Hct 31.3 L MCV 90.8 MCH 28.2 MCHC 31.1 L RDW 18.5 H Plt Count 217 MPV 9.9 Neut % (Auto) 48.5 L Lymph % (Auto) 20.5 [place] % (Auto) 15.3 H Eos % (Auto) 14.6 H Baso % (Auto) 1.1 Neut # (Auto) 4.1 Lymph # (Auto) 1.7 [place] # (Auto) 1.3 H Eos # (Auto) 1.2 H Baso # (Auto) 0.1 Sodium 138 Potassium 4.1 Chloride 105 Carbon Dioxide 23 Anion Gap 15 BUN 41 H Creatinine 6.8 H Est GFR ( Amer) 7 Est GFR (Non-Af Amer) 6 POC Glucose (mg/dL) 189 H Random Glucose 192 H Calcium 8.2 L Phosphorus 5.2 H Total Bilirubin 0.4 AST 30 ALT 24 Alkaline Phosphatase 123 Total Protein 6.5 Albumin 3.3 L Globulin 3.3 Albumin/Globulin Ratio 1.0 Fingerstick Blood Sugar Results: 155 Review of Systems - Review of Systems Systems not reviewed;Unavailable: Acuity of Condition Critical Care Progress Note - Ventilator Checklist PUD Prophalyxis: Yes DVT Prophylaxis: Yes Oral Care with Chlorhexidine Gluconate {CHG}: Yes - Vent Settings MODE:: PRVC TIDAL VOLUME:: 450 RESP RATE:: 18 FIO2:: 50 PEEP:: 5 - Extremities/Vascular Does the Patient have a Central Venous Catheter?: Yes Insertion Site: Subclavian Vein - Restraints Justification for Restraints: High risk for self extubation, High risk for removing IV access Assessment/Plan - Assessment and Plan (Free Text) Plan: Patient is a 72 yo female w/ PMH of CKD5, CHF, CAD s/p stents, pituiatry adenoma s/p resection, DM2 admitted for respiratory and cardiac arrest s/p permacath placement and AVF on 10-05. s/p permacath on 10-11-18; possible AMS due to anoxic brain injury, now on HD MWF, tracheostomy done on 10/18/17, PEG tube placed 10/23/18. MRI scheduled @ [facility] for tomorrow am. Neuro Intubated via tracheostomy, on propofol vet setting 18/450/5/50 CT head - no definitive internal acute intracranial findings as discussed above. MRI ordered - scheduled for tomorrow 7:30 am at [facility] Seroquel 25mg PO Daily Ativan 1mg Q6 PRN continue Keppra 750 mg PO Q12H CV cont Hydralazine cont Metoprolol cont Crestor Aspirin monitor BP, HR blood pressure elevated in afternoon - labetalol 10mg x 1 dose Pulm Chest Xray portable 10/21 -Mild pulm venous congestive changes and mild central pulm congestive changes Vent settings 18/430/5/50 Tracheostomy 10/18 Duoneb q6 hydrocortisone GI PEG tube today - Dr Akhtar continues to be afebrile now continue Tube feeds Protonix Heme EPO w/ Dialysis MWF Ferric sodium drip Renal ESRD- changed to MWF sessions Cath not working properly today - cathflow x 2 ordered today - will f/u that patient gets HD today EPO MWF f/u BUN/cr Nephro- Dr Segundo low BP 88/45 - albumin given yesterday, NS @ 60mls/hr bp improved today - continue to monitor Endo Levemir 30 SC Q12 Insulin regular SC Q6 Levothyroxine 50 PO daily Hydrocortisone 10 mg PO daily Q6 accuchecks ID +cx on 1- 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 asp Cefepime Vanc with dialysis (MWF) Mupirocin 2% nasal wound culture coagulase neg staph repeat bcx no growth after 4 days Trachasp - no growth stool culture no growth Cathsite - coagulase neg staph Dr Barrios - f/u recs PPX DVT ppx: Heparin GI ppx: Protonix f/u PT Plan discussed with Dr Michoacano Patton, PGY-1 - Date & Time Date: 10/24/18 Time: 09:00 <Eliseo Ríos - Last Filed: 10/24/18 16:51> CCU Objective - Vital Signs / Intake & Output Vital Signs (Last 4 hours): Vital Signs Temp Pulse Pulse Resp BP BP Pulse Ox 10/24/18 16:21 121/61 10/24/18 15:51 81 14 109/50 L 109/50 L 10/24/18 15:36 81 17 109/58 L 10/24/18 15:21 81 18 97/67 L 97/67 L 10/24/18 15:06 80 16 123/60 10/24/18 14:51 76 16 136/65 136/65 10/24/18 14:36 77 16 126/59 L 126/81 100 10/24/18 14:21 73 17 129/60 129/60 100 10/24/18 14:06 81/39 L 10/24/18 13:51 99.2 F 70 76 18 140/74 140/74 100 10/24/18 13:50 99.2 F 76 17 140/47 L 10/24/18 13:27 83 15 130/68 100 Intake and Output (Last 8hrs): Intake & Output 10/24/18 10/24/18 10/24/18 06:59 14:59 22:59 Intake Total 200 365 Output Total 50 Balance 150 365 Weight 200 lb Intake: Intake, IV Amount 150 Right Upper Arm Midline 150 Tube Feeding 200 215 Output: Stool 50 Other: # Voids Urine, Voided 1 - Medications Active Medications: Active Medications Generic Name Dose Route Start Last Admin Trade Name Estevanq PRN Reason Stop Dose Admin Acetaminophen 650 mg 10/08/18 10:08 10/24/18 09:27 Tylenol 325mg Tab PO 650 mg Q6 PRN Administration pain+fever Aspirin 81 mg 10/08/18 10:00 10/24/18 09:24 Aspirin Chewable PO 81 mg DAILY [facility] Administration Epoetin Dedrick 10,000 unit 10/17/18 09:00 10/24/18 14:10 Procrit IV 10,000 unit MWF [facility] Administration Heparin Sodium (Porcine) 5,000 units 10/15/18 10:00 10/24/18 09:25 Heparin SC 5,000 units Q12 JOCELYN Administration Hydrocortisone 10 mg 10/15/18 10:00 10/24/18 09:24 Cortef PO 10 mg DAILY JOCELYN Administration Vancomycin HCl 1 gm/ Sodium 250 mls @ 166.7 mls/hr 10/17/18 09:00 10/23/18 01:35 Chloride IVPB 166.7 mls/hr F [facility] Administration Protocol Levetiracetam 750 mg/ Sodium 107.5 mls @ 420 mls/hr 10/22/18 10:00 10/24/18 09:37 Chloride IVPB 420 mls/hr Q12H JOCELYN Administration Insulin Aspart 0 unit 10/18/18 18:00 10/24/18 12:35 Novolog SC 3 units Q6H JOCELYN Administration Protocol Insulin Detemir 30 unit 10/14/18 10:00 10/24/18 09:26 Levemir SC 30 u Q12 JOCELYN Administration Levothyroxine Sodium 50 mcg 09/29/18 08:00 10/24/18 05:58 Synthroid PO 50 mcg 0600 JOCELYN Administration Metoprolol Tartrate 12.5 mg 10/19/18 22:43 10/24/18 09:26 Lopressor NG 12.5 mg BID JOCELYN Administration Mupirocin 0.25 gm 10/16/18 10:00 10/24/18 09:24 Bactroban 2% Nasal HILLARY 0.25 gm BID JOCELYN Administration Pantoprazole Sodium 40 mg 10/09/18 06:00 10/24/18 05:58 Protonix Susp PO 40 mg 0600 JOCELYN Administration Rosuvastatin Calcium 10 mg 09/30/18 22:00 10/23/18 21:29 Crestor PO 10 mg HS JOCELYN Administration - Patient Studies Lab Studies: Microbiology Studies 10/19/18 20:57 Blood Culture - Preliminary Blood-During Dialysis NO GROWTH AFTER 4 DAYS 10/19/18 18:54 Blood Culture - Preliminary Blood-During Dialysis NO GROWTH AFTER 4 DAYS Lab Studies 10/24/18 10/24/18 10/24/18 Range/Units 11:44 05:49 05:49 WBC 8.5 (4.8-10.8) K/uL RBC 3.45 L (3.80-5.20) Mil/uL Hgb 9.7 L (11.0-16.0) g/dL Hct 31.3 L (34.0-47.0) % MCV 90.8 (81.0-99.0) fL MCH 28.2 (27.0-31.0) pg MCHC 31.1 L (33.0-37.0) g/dL RDW 18.5 H (11.5-14.5) % Plt Count 217 (130-400) K/uL MPV 9.9 (7.2-11.7) fL Neut % (Auto) 48.5 L (50.0-75.0) % Lymph % (Auto) 20.5 (20.0-40.0) % [place] % (Auto) 15.3 H (0.0-10.0) % Eos % (Auto) 14.6 H (0.0-4.0) % Baso % (Auto) 1.1 (0.0-2.0) % Neut # (Auto) 4.1 (1.8-7.0) K/uL Lymph # (Auto) 1.7 (1.0-4.3) K/uL [place] # (Auto) 1.3 H (0.0-0.8) K/uL Eos # (Auto) 1.2 H (0.0-0.7) K/uL Baso # (Auto) 0.1 (0.0-0.2) K/uL Sodium 138 (132-148) mmol/L Potassium 4.1 (3.6-5.2) mmol/L Chloride 105 (98-107) mmol/L Carbon Dioxide 23 (22-30) mmol/L Anion Gap 15 (10-20) BUN 41 H (7-17) mg/dL Creatinine 6.8 H (0.7-1.2) mg/dL Est GFR ( Amer) 7 Est GFR (Non-Af Amer) 6 POC Glucose (mg/dL) 236 H (65-110) mg/dL Random Glucose 192 H (65-105) mg/dL Calcium 8.2 L (8.6-10.4) mg/dl Phosphorus 5.2 H (2.5-4.5) mg/dL Total Bilirubin 0.4 (0.2-1.3) mg/dL AST 30 (14-36) U/L ALT 24 (9-52) U/L Alkaline Phosphatase 123 (38-126) U/L Total Protein 6.5 (6.3-8.3) g/dL Albumin 3.3 L (3.5-5.0) g/dL Globulin 3.3 (2.2-3.9) gm/dL Albumin/Globulin Ratio 1.0 (1.0-2.1) 01/23/19 01/22/19 01/22/19 Range/Units 05:15 23:46 17:31 WBC (4.8-10.8) K/uL RBC (3.80-5.20) Mil/uL Hgb (11.0-16.0) g/dL Hct (34.0-47.0) % MCV (81.0-99.0) fL MCH (27.0-31.0) pg MCHC (33.0-37.0) g/dL RDW (11.5-14.5) % Plt Count (130-400) K/uL MPV (7.2-11.7) fL Neut % (Auto) (50.0-75.0) % Lymph % (Auto) (20.0-40.0) % [place] % (Auto) (0.0-10.0) % Eos % (Auto) (0.0-4.0) % Baso % (Auto) (0.0-2.0) % Neut # (Auto) (1.8-7.0) K/uL Lymph # (Auto) (1.0-4.3) K/uL [place] # (Auto) (0.0-0.8) K/uL Eos # (Auto) (0.0-0.7) K/uL Baso # (Auto) (0.0-0.2) K/uL Sodium (132-148) mmol/L Potassium (3.6-5.2) mmol/L Chloride (98-107) mmol/L Carbon Dioxide (22-30) mmol/L Anion Gap (10-20) BUN (7-17) mg/dL Creatinine (0.7-1.2) mg/dL Est GFR ( Amer) Est GFR (Non-Af Amer) POC Glucose (mg/dL) 189 H 200 H 177 H (65-110) mg/dL Random Glucose (65-105) mg/dL Calcium (8.6-10.4) mg/dl Phosphorus (2.5-4.5) mg/dL Total Bilirubin (0.2-1.3) mg/dL AST (14-36) U/L ALT (9-52) U/L Alkaline Phosphatase (38-126) U/L Total Protein (6.3-8.3) g/dL Albumin (3.5-5.0) g/dL Globulin (2.2-3.9) gm/dL Albumin/Globulin Ratio (1.0-2.1) Laboratory Results - last 24 hr 10/23/18 10/23/18 10/24/18 17:31 23:46 05:15 WBC RBC Hgb Hct MCV MCH MCHC RDW Plt Count MPV Neut % (Auto) Lymph % (Auto) [place] % (Auto) Eos % (Auto) Baso % (Auto) Neut # (Auto) Lymph # (Auto) [place] # (Auto) Eos # (Auto) Baso # (Auto) Sodium Potassium Chloride Carbon Dioxide Anion Gap BUN Creatinine Est GFR ( Amer) Est GFR (Non-Af Amer) POC Glucose (mg/dL) 177 H 200 H 189 H Random Glucose Calcium Phosphorus Total Bilirubin AST ALT Alkaline Phosphatase Total Protein Albumin Globulin Albumin/Globulin Ratio 10/24/18 10/24/18 10/24/18 05:49 05:49 11:44 WBC 8.5 RBC 3.45 L Hgb 9.7 L Hct 31.3 L MCV 90.8 MCH 28.2 MCHC 31.1 L RDW 18.5 H Plt Count 217 MPV 9.9 Neut % (Auto) 48.5 L Lymph % (Auto) 20.5 [place] % (Auto) 15.3 H Eos % (Auto) 14.6 H Baso % (Auto) 1.1 Neut # (Auto) 4.1 Lymph # (Auto) 1.7 [place] # (Auto) 1.3 H Eos # (Auto) 1.2 H Baso # (Auto) 0.1 Sodium 138 Potassium 4.1 Chloride 105 Carbon Dioxide 23 Anion Gap 15 BUN 41 H Creatinine 6.8 H Est GFR ( Amer) 7 Est GFR (Non-Af Amer) 6 POC Glucose (mg/dL) 236 H Random Glucose 192 H Calcium 8.2 L Phosphorus 5.2 H Total Bilirubin 0.4 AST 30 ALT 24 Alkaline Phosphatase 123 Total Protein 6.5 Albumin 3.3 L Globulin 3.3 Albumin/Globulin Ratio 1.0 Attending/Attestation - Attestation I have personally seen and examined this patient.: Yes I have fully participated in the care of the patient.: Yes I have reviewed all pertinent clinical information: Yes Notes (Text): 10/24/18 16:50 Patient seen and examined in the intensive care unit. For MRI of brain No change in mental status Status post PEG placement Continue PEG feeding DVT and stress ulcer prophylaxis Continue hemodialysis
--- NOTE | 2018-10-24 10:54 | CP.PCM.PN ---
<Av Colby - Last Filed: 10/24/18 17:51> Subjective - Date & Time of Evaluation Date of Evaluation: 10/24/18 Time of Evaluation: 10:54 - Subjective Subjective: Cardiology Service: Dr. Wagoner's Service Patient seen and examined at bedside. Per nursing no acute events occurred overnight. ROS unobtainable due to patient's current clinical condition. Patient less agitated today during examination. Objective - Vital Signs/Intake and Output Vital Signs (last 24 hours): Temp Pulse Resp BP Pulse Ox 100.0 F H 79 19 135/75 100 10/24/18 09:27 10/24/18 07:20 10/24/18 07:20 10/24/18 07:55 10/24/18 07:20 Intake and Output: 10/24/18 10/24/18 06:59 18:59 Intake Total 500 25 Output Total 50 Balance 450 25 - Medications Medications: Current Medications Acetaminophen (Tylenol 325mg Tab) 650 mg PO Q6 PRN PRN Reason: pain+fever Last Admin: 10/24/18 09:27 Dose: 650 mg Aspirin (Aspirin Chewable) 81 mg PO DAILY [facility] Last Admin: 10/24/18 09:24 Dose: 81 mg Epoetin Dedrick (Procrit) 10,000 unit IV MWF [facility] Last Admin: 10/22/18 22:22 Dose: 10,000 unit Heparin Sodium (Porcine) (Heparin) 5,000 units SC Q12 [facility] Last Admin: 10/24/18 09:25 Dose: 5,000 units Hydrocortisone (Cortef) 10 mg PO DAILY [facility] Last Admin: 10/24/18 09:24 Dose: 10 mg Vancomycin HCl 1 gm/ Sodium (Chloride) 250 mls @ 166.7 mls/hr IVPB MWF [facility]; Protocol Last Admin: 10/23/18 01:35 Dose: 166.7 mls/hr Cefepime HCl 1 gm/ Dextrose 50 mls @ 100 mls/hr IVPB DAILY [facility]; Protocol Last Admin: 10/24/18 09:38 Dose: 100 mls/hr Levetiracetam 750 mg/ Sodium (Chloride) 107.5 mls @ 420 mls/hr IVPB Q12H [facility] Last Admin: 10/24/18 09:37 Dose: 420 mls/hr Insulin Aspart (Novolog) 0 unit SC Q6H [facility]; Protocol Last Admin: 10/24/18 05:58 Dose: 2 units Insulin Detemir (Levemir) 30 unit SC Q12 [facility] Last Admin: 10/24/18 09:26 Dose: 30 u Levothyroxine Sodium (Synthroid) 50 mcg PO 0600 [facility] Last Admin: 10/24/18 05:58 Dose: 50 mcg Metoprolol Tartrate (Lopressor) 12.5 mg NG BID [facility] Last Admin: 10/24/18 09:26 Dose: 12.5 mg Mupirocin (Bactroban 2% Nasal) 0.25 gm HILLARY BID [facility] Last Admin: 10/24/18 09:24 Dose: 0.25 gm Pantoprazole Sodium (Protonix Susp) 40 mg PO 0600 [facility] Last Admin: 10/24/18 05:58 Dose: 40 mg Rosuvastatin Calcium (Crestor) 10 mg PO HS [facility] Last Admin: 10/23/18 21:29 Dose: 10 mg - Labs Labs: 10/24/18 05:49 10/24/18 05:49 PT 14.1 SECONDS (9.7-12.2) H 10/19/18 06:21 INR 1.3 10/19/18 06:21 APTT 38 SECONDS (21-34) H 10/19/18 06:21 - Head Exam Head Exam: ATRAUMATIC, NORMAL INSPECTION - Eye Exam Eye Exam: EOMI, Normal appearance, PERRL. absent: Periorbital tenderness Pupil Exam: NORMAL ACCOMODATION - ENT Exam ENT Exam: Mucous Membranes Moist, Normal Oropharynx - Respiratory Exam Respiratory Exam: Clear to Ausculation Bilateral. absent: Prolonged Expiratory Phase, Respiratory Distress - Cardiovascular Exam Cardiovascular Exam: REGULAR RHYTHM, +S1, +S2. absent: Rubs - GI/Abdominal Exam GI & Abdominal Exam: Soft, Normal Bowel Sounds. absent: Hyperactive Bowel Sounds - Extremities Exam Extremities Exam: absent: Pedal Edema - Back Exam Back Exam: NORMAL INSPECTION. absent: CVA tenderness (R), paraspinal tenderness - Neurological Exam Neurological Exam: Altered - Psychiatric Exam Psychiatric exam: Agitated, Normal Affect, Normal Mood - Skin Skin Exam: Dry Assessment and Plan - Assessment and Plan (Free Text) Assessment: 72 year old female with past medical history of CAD, CHF, HTN, HLD, pituitary adenoma, is being seen s/p respiratory arrest during AV fistula placement surg kumar. s/p permacath on 10-11-18; possible AMS due to anoxic brain injury, now on HD MWF, tracheostomy done on 10/18/17, planning for PEG placement by GI today. Plan: Respiratory failure - Currently intubated and sedated. Management per primary care team - Completed hypothermic protocol -Bedside PEG placement completed today. Medications: Levetiracetam 420mls/hrIVPB Q12H [facility] MRSA in trach -Continue Cefepime 1gm ivpb daily -Continue Vancomycin 1gm ivpb mwf Anoxic brain injury -Pending repeat MRI at [facility]. Patient remains agigtated and unable to go for imaging at this time. HTN -Lopressor 12.5mg NG BID [facility] HLD -Continue Rosuvastatin 10mg PO HS [facility] CAD -Continue Aspirin 81mg PO Daily [facility] DM -Levemir 30UNIT sc q12 mir Hypothyroidism -Continue Synthroid 50mcg PO 0600 [facility] CKD on HD - S/p right permacath placed on 10/11 -Procrit 10,000 unit IV MWF ppx -Protonix -Heparin All management per Dr. Wagoner. Av Colby, PGY-2 <Jimmy Wagoner - Last Filed: 10/25/18 00:04> Objective - Vital Signs/Intake and Output Vital Signs (last 24 hours): Temp Pulse Resp BP Pulse Ox 100.1 F H 82 18 119/59 L 100 10/24/18 20:00 10/24/18 23:26 10/24/18 23:26 10/24/18 23:26 10/24/18 23:26 Intake and Output: 10/24/18 10/25/18 18:59 06:59 Intake Total 725 300 Balance 725 300 - Medications Medications: Current Medications Acetaminophen (Tylenol 325mg Tab) 650 mg PO Q6 PRN PRN Reason: pain+fever Last Admin: 10/24/18 09:27 Dose: 650 mg Aspirin (Aspirin Chewable) 81 mg PO DAILY [facility] Last Admin: 10/24/18 09:24 Dose: 81 mg Epoetin Dedrick (Procrit) 10,000 unit IV MWF [facility] Last Admin: 10/24/18 14:10 Dose: 10,000 unit Haloperidol Lactate (Haldol) 2 mg IVP ONCE ONE Stop: 10/25/18 07:16 Heparin Sodium (Porcine) (Heparin) 5,000 units SC Q12 [facility] Last Admin: 10/24/18 21:22 Dose: 5,000 units Hydrocortisone (Cortef) 10 mg PO DAILY [facility] Last Admin: 10/24/18 09:24 Dose: 10 mg Vancomycin HCl 1 gm/ Sodium (Chloride) 250 mls @ 166.7 mls/hr IVPB MWF [facility]; Protocol Last Admin: 10/24/18 18:31 Dose: 166.7 mls/hr Levetiracetam 750 mg/ Sodium (Chloride) 107.5 mls @ 420 mls/hr IVPB Q12H [facility] Last Admin: 10/24/18 21:00 Dose: 420 mls/hr Insulin Aspart (Novolog) 0 unit SC Q6H [facility]; Protocol Last Admin: 10/24/18 18:31 Dose: 3 units Insulin Detemir (Levemir) 30 unit SC Q12 [facility] Last Admin: 10/24/18 21:15 Dose: 30 u Levothyroxine Sodium (Synthroid) 50 mcg PO 0600 [facility] Last Admin: 10/24/18 05:58 Dose: 50 mcg Metoprolol Tartrate (Lopressor) 12.5 mg NG BID [facility] Last Admin: 10/24/18 18:31 Dose: 12.5 mg Mupirocin (Bactroban 2% Nasal) 0.25 gm HILLARY BID [facility] Last Admin: 10/24/18 22:16 Dose: 0.25 gm Pantoprazole Sodium (Protonix Susp) 40 mg PO 0600 [facility] Last Admin: 10/24/18 05:58 Dose: 40 mg Rosuvastatin Calcium (Crestor) 10 mg PO HS [facility] Last Admin: 10/24/18 21:22 Dose: 10 mg - Labs Labs: 10/24/18 05:49 10/24/18 05:49 PT 14.1 SECONDS (9.7-12.2) H 10/19/18 06:21 INR 1.3 10/19/18 06:21 APTT 38 SECONDS (21-34) H 10/19/18 06:21 Assessment and Plan - Assessment and Plan (Free Text) Assessment: Patient seen and evaluated personally by me. Plan of care d/w the the resident and as documented
[2018-10-24] MEDS ORDERED: Labetalol 25mg/5ml Syringe IVP STA (12:54)
--- NOTE | 2018-10-24 12:59 | CP.PCM.PN ---
Subjective - Date & Time of Evaluation Date of Evaluation: 10/24/18 Time of Evaluation: 12:56 - Subjective Subjective: s/p PEG; trached previously off all sedation; still does not open eyes has low grade temp elevation for dialysis today; permcath wasn't working- TPA given to cath will need further neuro imaging Hg better with ESAs, previous IV Fe Objective - Vital Signs/Intake and Output Vital Signs (last 24 hours): Temp Pulse Resp BP Pulse Ox 100.2 F H 85 16 150/126 H 98 10/24/18 10:27 10/24/18 11:35 10/24/18 11:35 10/24/18 11:35 10/24/18 11:35 Intake and Output: 10/24/18 10/24/18 06:59 18:59 Intake Total 500 275 Output Total 50 Balance 450 275 - Medications Medications: Current Medications Acetaminophen (Tylenol 325mg Tab) 650 mg PO Q6 PRN PRN Reason: pain+fever Last Admin: 10/24/18 09:27 Dose: 650 mg Aspirin (Aspirin Chewable) 81 mg PO DAILY [facility] Last Admin: 10/24/18 09:24 Dose: 81 mg Epoetin Dedrick (Procrit) 10,000 unit IV MWF [facility] Last Admin: 10/22/18 22:22 Dose: 10,000 unit Heparin Sodium (Porcine) (Heparin) 5,000 units SC Q12 [facility] Last Admin: 10/24/18 09:25 Dose: 5,000 units Hydrocortisone (Cortef) 10 mg PO DAILY [facility] Last Admin: 10/24/18 09:24 Dose: 10 mg Vancomycin HCl 1 gm/ Sodium (Chloride) 250 mls @ 166.7 mls/hr IVPB MWF [facility]; Protocol Last Admin: 10/23/18 01:35 Dose: 166.7 mls/hr Cefepime HCl 1 gm/ Dextrose 50 mls @ 100 mls/hr IVPB DAILY [facility]; Protocol Last Admin: 10/24/18 09:38 Dose: 100 mls/hr Levetiracetam 750 mg/ Sodium (Chloride) 107.5 mls @ 420 mls/hr IVPB Q12H [facility] Last Admin: 10/24/18 09:37 Dose: 420 mls/hr Insulin Aspart (Novolog) 0 unit SC Q6H [facility]; Protocol Last Admin: 10/24/18 12:35 Dose: 3 units Insulin Detemir (Levemir) 30 unit SC Q12 [facility] Last Admin: 10/24/18 09:26 Dose: 30 u Labetalol HCl (Trandate) 10 mg IVP STAT STA Stop: 10/24/18 12:55 Levothyroxine Sodium (Synthroid) 50 mcg PO 0600 [facility] Last Admin: 10/24/18 05:58 Dose: 50 mcg Metoprolol Tartrate (Lopressor) 12.5 mg NG BID [facility] Last Admin: 10/24/18 09:26 Dose: 12.5 mg Mupirocin (Bactroban 2% Nasal) 0.25 gm HILLARY BID [facility] Last Admin: 10/24/18 09:24 Dose: 0.25 gm Pantoprazole Sodium (Protonix Susp) 40 mg PO 0600 [facility] Last Admin: 10/24/18 05:58 Dose: 40 mg Rosuvastatin Calcium (Crestor) 10 mg PO HS [facility] Last Admin: 10/23/18 21:29 Dose: 10 mg - Labs Labs: 10/24/18 05:49 10/24/18 05:49 PT 14.1 SECONDS (9.7-12.2) H 10/19/18 06:21 INR 1.3 10/19/18 06:21 APTT 38 SECONDS (21-34) H 10/19/18 06:21 - Constitutional Appears: In Acute Distress, Confused, Chronically Ill - Head Exam Head Exam: ATRAUMATIC, NORMAL INSPECTION - Neck Exam Neck Exam: Normal Inspection. absent: Tenderness - Respiratory Exam Respiratory Exam: Clear to Ausculation Bilateral, NORMAL BREATHING PATTERN - Cardiovascular Exam Cardiovascular Exam: REGULAR RHYTHM, +S1 - GI/Abdominal Exam GI & Abdominal Exam: Soft. absent: Tenderness - Extremities Exam Extremities Exam: Normal Inspection. absent: Tenderness - Neurological Exam Neurological Exam: Altered - Skin Skin Exam: Dry, Warm Assessment and Plan (1) ESRD (end stage renal disease) Status: Acute (2) Diabetic nephropathy associated with type 2 diabetes mellitus Status: Acute (3) CAD (coronary artery disease) Status: Acute (4) HTN (hypertension) Status: Acute - Assessment and Plan (Free Text) Plan: Dialysis later today then MWF monitor cath response to TPA neuro imaging EPO Same meds; on IV ABs for fevers
--- NOTE | 2018-10-24 13:50 | CP.PCM.PN ---
Subjective - Date & Time of Evaluation Date of Evaluation: 10/24/18 Time of Evaluation: 14:00 - Subjective Subjective: dictated Objective - Vital Signs/Intake and Output Vital Signs (last 24 hours): Temp Pulse Resp BP Pulse Ox 100.2 F H 85 16 150/126 H 98 10/24/18 10:27 10/24/18 11:35 10/24/18 11:35 10/24/18 11:35 10/24/18 11:35 Intake and Output: 10/24/18 10/24/18 06:59 18:59 Intake Total 500 275 Output Total 50 Balance 450 275 - Medications Medications: Current Medications Acetaminophen (Tylenol 325mg Tab) 650 mg PO Q6 PRN PRN Reason: pain+fever Last Admin: 10/24/18 09:27 Dose: 650 mg Aspirin (Aspirin Chewable) 81 mg PO DAILY [facility] Last Admin: 10/24/18 09:24 Dose: 81 mg Epoetin Dedrick (Procrit) 10,000 unit IV MWF [facility] Last Admin: 10/22/18 22:22 Dose: 10,000 unit Heparin Sodium (Porcine) (Heparin) 5,000 units SC Q12 [facility] Last Admin: 10/24/18 09:25 Dose: 5,000 units Hydrocortisone (Cortef) 10 mg PO DAILY [facility] Last Admin: 10/24/18 09:24 Dose: 10 mg Vancomycin HCl 1 gm/ Sodium (Chloride) 250 mls @ 166.7 mls/hr IVPB MWF [facility]; Protocol Last Admin: 10/23/18 01:35 Dose: 166.7 mls/hr Cefepime HCl 1 gm/ Dextrose 50 mls @ 100 mls/hr IVPB DAILY [facility]; Protocol Last Admin: 10/24/18 09:38 Dose: 100 mls/hr Levetiracetam 750 mg/ Sodium (Chloride) 107.5 mls @ 420 mls/hr IVPB Q12H [facility] Last Admin: 10/24/18 09:37 Dose: 420 mls/hr Insulin Aspart (Novolog) 0 unit SC Q6H [facility]; Protocol Last Admin: 10/24/18 12:35 Dose: 3 units Insulin Detemir (Levemir) 30 unit SC Q12 [facility] Last Admin: 10/24/18 09:26 Dose: 30 u Levothyroxine Sodium (Synthroid) 50 mcg PO 0600 [facility] Last Admin: 10/24/18 05:58 Dose: 50 mcg Metoprolol Tartrate (Lopressor) 12.5 mg NG BID [facility] Last Admin: 10/24/18 09:26 Dose: 12.5 mg Mupirocin (Bactroban 2% Nasal) 0.25 gm HILLARY BID [facility] Last Admin: 10/24/18 09:24 Dose: 0.25 gm Pantoprazole Sodium (Protonix Susp) 40 mg PO 0600 [facility] Last Admin: 10/24/18 05:58 Dose: 40 mg Rosuvastatin Calcium (Crestor) 10 mg PO [facility] Last Admin: 10/23/18 21:29 Dose: 10 mg - Labs Labs: 10/24/18 05:49 10/24/18 05:49 PT 14.1 SECONDS (9.7-12.2) H 10/19/18 06:21 INR 1.3 10/19/18 06:21 APTT 38 SECONDS (21-34) H 10/19/18 06:21
--- NOTE | 2018-10-24 13:58 | EEG ---
DATE: 10/20/2018 This is a 16-channel electroencephalogram of lethargic adult. During the study, photic stimulation was performed. Hyperventilation was not performed. The study was performed at the bedside in the intensive care unit. The resting electroencephalogram consist of moderate voltage diffuse 3 to 4 Hz delta activity seen with intermittent movement artifact contaminating the background activities. There is focal occipital lead lose electrode contact is also noted. There are phase reversal activities noted at central C4 region which are consistent with electrographic paroxysmal activities. The photic stimulation did not evoke driving response noted at 2 to 20 Hz. There is a generalized total body movement contaminating the background rhythm at the end. IMPRESSION: This is abnormal electroencephalogram because of persistent slowing superimposed with focal paroxysmal activities at right central region consistent with electrographic seizures. Please correlate the findings with neurological and radiological studies. Blu Yost MD
--- NOTE | 2018-10-24 13:59 | EEG ---
DATE: 10/23/2018 This is a 16-channel electroencephalogram of an obtunded adult. The study was performed at the bedside in the intensive care unit. The resting electroencephalogram consists of 30 to 40 volt diffuse delta activity seen in bilateral cortical leads. These activities are all intermittently contaminated with bilateral movement artifact. This movement artifact is contaminating the background activities intermittently. The photic stimulation did not evoke driving response noted at 2 to 20 Hz. However, the patient did have paroxysmal activities which were seen in the previous studies, were not seen at this current record. Please correlate the finding with neurological and radiological studies. Blu Yost MD
[2018-10-24] MEDS: Epoetin Alfa 10,000 unit/ml Dialysis IV SCH (14:10)
--- NOTE | 2018-10-24 14:17 | CP.PCM.PN ---
Subjective - Date & Time of Evaluation Date of Evaluation: 10/24/18 Time of Evaluation: 14:15 - Subjective Subjective: S/P Peg 10/23 Feeds tolerated thus far. No PEG-related issues noted Objective - Vital Signs/Intake and Output Vital Signs (last 24 hours): Temp Pulse Resp BP Pulse Ox 100.2 F H 85 16 150/126 H 98 10/24/18 10:27 10/24/18 11:35 10/24/18 11:35 10/24/18 11:35 10/24/18 11:35 Intake and Output: 10/24/18 10/24/18 06:59 18:59 Intake Total 500 275 Output Total 50 Balance 450 275 - Medications Medications: Current Medications Acetaminophen (Tylenol 325mg Tab) 650 mg PO Q6 PRN PRN Reason: pain+fever Last Admin: 10/24/18 09:27 Dose: 650 mg Aspirin (Aspirin Chewable) 81 mg PO DAILY [facility] Last Admin: 10/24/18 09:24 Dose: 81 mg Epoetin Dedrick (Procrit) 10,000 unit IV [facility] Last Admin: 10/24/18 14:10 Dose: 10,000 unit Heparin Sodium (Porcine) (Heparin) 5,000 units SC Q12 [facility] Last Admin: 10/24/18 09:25 Dose: 5,000 units Hydrocortisone (Cortef) 10 mg PO DAILY [facility] Last Admin: 10/24/18 09:24 Dose: 10 mg Vancomycin HCl 1 gm/ Sodium (Chloride) 250 mls @ 166.7 mls/hr IVPB MWF [facility]; Protocol Last Admin: 10/23/18 01:35 Dose: 166.7 mls/hr Levetiracetam 750 mg/ Sodium (Chloride) 107.5 mls @ 420 mls/hr IVPB Q12H [facility] Last Admin: 10/24/18 09:37 Dose: 420 mls/hr Insulin Aspart (Novolog) 0 unit SC Q6H [facility]; Protocol Last Admin: 10/24/18 12:35 Dose: 3 units Insulin Detemir (Levemir) 30 unit SC Q12 [facility] Last Admin: 10/24/18 09:26 Dose: 30 u Levothyroxine Sodium (Synthroid) 50 mcg PO 0600 [facility] Last Admin: 10/24/18 05:58 Dose: 50 mcg Metoprolol Tartrate (Lopressor) 12.5 mg NG BID [facility] Last Admin: 10/24/18 09:26 Dose: 12.5 mg Mupirocin (Bactroban 2% Nasal) 0.25 gm HILLARY BID [facility] Last Admin: 10/24/18 09:24 Dose: 0.25 gm Pantoprazole Sodium (Protonix Susp) 40 mg PO 0600 [facility] Last Admin: 10/24/18 05:58 Dose: 40 mg Rosuvastatin Calcium (Crestor) 10 mg PO HS [facility] Last Admin: 10/23/18 21:29 Dose: 10 mg - Labs Labs: 10/24/18 05:49 10/24/18 05:49 PT 14.1 SECONDS (9.7-12.2) H 10/19/18 06:21 INR 1.3 10/19/18 06:21 APTT 38 SECONDS (21-34) H 10/19/18 06:21 - Constitutional Appears: Chronically Ill - Neck Exam Additional comments: tracheostomy - GI/Abdominal Exam GI & Abdominal Exam: Soft. absent: Tenderness Additional comments: GT site clean, dry, intact - Neurological Exam Neuro motor strength exam: Left Upper Extremity: 5 - Psychiatric Exam Psychiatric exam: Agitated Assessment and Plan (1) Dysphagia Assessment & Plan: PEG successful re-consult PRN Status: Acute
--- NOTE | 2018-10-24 19:11 | PN ---
DATE: 10/24/2018 INFECTIOUS DISEASE FOLLOWUP SUBJECTIVE: The patient remains unconscious and anoxic with involuntary movements. T-max is 100.2 at this time, pulse 82, blood pressure 160/64, respirations are 16. Her dialysis is just going to start at this time. PHYSICAL EXAMINATION GENERAL: Unresponsive. VITAL SIGNS: T-max is 100.2, blood pressure 160/64, pulse 82, respirations are on the trach vent. HEENT: Head is atraumatic and normocephalic. NECK: Supple. LUNGS: Clear. HEART: S1 and S2 regular. ABDOMEN: Soft . EXTREMITIES: Have foot protectors. She has a midline in the right arm and she has a dialysis catheter. LABORATORY DATA: White count is 8.5, hemoglobin 9.7, hematocrit 31.3, platelet count is 217. Glucose is 189. ASSESSMENT AND PLAN: She also has a rectal tube. She is on Solu-Cortef 10 mg p.o. daily, NovoLog, Levemir, levetiracetam, Synthroid, metoprolol, Bactroban and Protonix. She is getting vancomycin 1 g on Monday, Monday and Monday, so today she will get it. Her wound culture from catheter site came out coagulase-negative Staphylococcus, so we will try to change her midline to get it discontinued and get another line if needed or a peripheral. Also since she is having liquidy stools, we will take away the Maxipime as the sputum has no growth now. Blood cultures are negative. Stool culture is negative. We will leave her on vancomycin and probably discontinue the midline and hopefully the patient will improve, but her mental status, I am not sure of. 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 Sara Barrios MD
--- NOTE | 2018-10-24 20:26 | CP.PCM.PN ---
Subjective - Date & Time of Evaluation Date of Evaluation: 10/24/18 Time of Evaluation: 20:26 - Subjective Subjective: Patient is still having symptoms of low-grade fever. Agitation. MRI showing no evidence of any acute pathology. Spoke to the family. We will continue the current supportive treatment. Hemodialysis Wednesdays and Fridays and will follow the patient Objective - Vital Signs/Intake and Output Vital Signs (last 24 hours): Temp Pulse Resp BP Pulse Ox 99.1 F 79 18 118/61 99 10/24/18 16:55 10/24/18 19:26 10/24/18 19:26 10/24/18 19:26 10/24/18 19:26 Intake and Output: 10/24/18 10/25/18 18:59 06:59 Intake Total 725 40 Balance 725 40 - Medications Medications: Current Medications Acetaminophen (Tylenol 325mg Tab) 650 mg PO Q6 PRN PRN Reason: pain+fever Last Admin: 10/24/18 09:27 Dose: 650 mg Aspirin (Aspirin Chewable) 81 mg PO DAILY [facility] Last Admin: 10/24/18 09:24 Dose: 81 mg Epoetin Dedrick (Procrit) 10,000 unit IV MWF [facility] Last Admin: 10/24/18 14:10 Dose: 10,000 unit Haloperidol Lactate (Haldol) 2 mg IVP ONCE ONE Stop: 10/25/18 07:16 Heparin Sodium (Porcine) (Heparin) 5,000 units SC Q12 [facility] Last Admin: 10/24/18 09:25 Dose: 5,000 units Hydrocortisone (Cortef) 10 mg PO DAILY [facility] Last Admin: 10/24/18 09:24 Dose: 10 mg Vancomycin HCl 1 gm/ Sodium (Chloride) 250 mls @ 166.7 mls/hr IVPB MWF [facility]; Protocol Last Admin: 10/24/18 18:31 Dose: 166.7 mls/hr Levetiracetam 750 mg/ Sodium (Chloride) 107.5 mls @ 420 mls/hr IVPB Q12H [facility] Last Admin: 10/24/18 09:37 Dose: 420 mls/hr Insulin Aspart (Novolog) 0 unit SC Q6H [facility]; Protocol Last Admin: 10/24/18 18:31 Dose: 3 units Insulin Detemir (Levemir) 30 unit SC Q12 [facility] Last Admin: 10/24/18 09:26 Dose: 30 u Levothyroxine Sodium (Synthroid) 50 mcg PO 0600 [facility] Last Admin: 10/24/18 05:58 Dose: 50 mcg Metoprolol Tartrate (Lopressor) 12.5 mg NG BID [facility] Last Admin: 10/24/18 18:31 Dose: 12.5 mg Mupirocin (Bactroban 2% Nasal) 0.25 gm HILLARY BID [facility] Last Admin: 10/24/18 09:24 Dose: 0.25 gm Pantoprazole Sodium (Protonix Susp) 40 mg PO 0600 [facility] Last Admin: 10/24/18 05:58 Dose: 40 mg Rosuvastatin Calcium (Crestor) 10 mg PO HS [facility] Last Admin: 10/23/18 21:29 Dose: 10 mg - Labs Labs: 10/24/18 05:49 10/24/18 05:49 PT 14.1 SECONDS (9.7-12.2) H 10/19/18 06:21 INR 1.3 10/19/18 06:21 APTT 38 SECONDS (21-34) H 10/19/18 06:21 Assessment and Plan (1) Acute on chronic renal failure Status: Acute (2) Diabetic nephropathy associated with type 2 diabetes mellitus Status: Acute (3) Uremia, acute Status: Acute
[2018-10-25] MEDS: (Novolog) Insulin Aspart, Recombinant 100 u/ml 10 ml vial SC SCH ×5 (00:37→23:30)
[2018-10-25] MEDS: Acetaminophen 650mg/20.3ml solution UD PO PRN ×2 (03:32→12:02)
[2018-10-25] MEDS: Levothyroxine 50 MCG TAB PO SCH (05:15)
[2018-10-25] MEDS: Pantoprazole 40 mg Susp UD PO SCH (05:15)
[2018-10-25 06:06] LABS: BASO # 0.1 K/uL (0.0-0.2); BASO % 1.1 % (0.0-2.0); EOS # 0.9 K/uL (0.0-0.7); EOS % 9.6 % (0.0-4.0); HEMOGLOBIN 10.1 g/dL (11.0-16.0); LYMPH # 1.8 K/uL (1.0-4.3); LYMPH % 18.8 % (20.0-40.0); MEAN CELL VOLUME 90.7 fL (81.0-99.0); MEAN CORPUSCULAR HEMOGLOBIN 27.5 pg (27.0-31.0); MEAN CORPUSCULAR HGB CONC 30.3 g/dL (33.0-37.0); MEAN PLATELET VOLUME 10.1 fL (7.2-11.7); MONO # 1.6 K/uL (0.0-0.8); MONO % 17.2 % (0.0-10.0); NEUT % 53.3 % (50.0-75.0); RBC 3.68 Mil/uL (3.80-5.20); RED CELL DISTRIBUTION WIDTH 18.5 % (11.5-14.5); WHITE BLOOD COUNT 9.4 K/uL (4.8-10.8)
[2018-10-25 06:30] LABS: ALBUMIN 3.4 g/dL (3.5-5.0); CALCIUM 7.9 mg/dl (8.6-10.4)
--- NOTE | 2018-10-25 08:53 | CT ---
Date of service: 10/24/2018 PROCEDURE: CT HEAD WITHOUT CONTRAST. HISTORY: Cerebrovascular accident. Acute renal insufficiency. Fluid overload. Unresponsive. COMPARISON: 10/19/2018 TECHNIQUE: Axial computed tomography images were obtained through the head/brain without intravenous contrast. Radiation dose: Total exam DLP = 1496.92 mGy-cm. This CT exam was performed using one or more of the following dose reduction techniques: Automated exposure control, adjustment of the mA and/or kV according to patient size, and/or use of iterative reconstruction technique. FINDINGS: HEMORRHAGE: No intracranial hemorrhage. BRAIN: No mass effect or edema. Scattered focal lucencies in the subcortical and periventricular white matter suggestive for chronic microvascular ischemic change. Cerebral and cerebellar atrophy. Bilateral basal ganglia calcifications. VENTRICLES: Unremarkable. No hydrocephalus. CALVARIUM: Unremarkable. PARANASAL SINUSES: Mucosal thickening of the sphenoid sinus. MASTOID AIR CELLS: Unremarkable as visualized. No inflammatory changes. OTHER FINDINGS: Motion artifact. Intracranial arterial calcifications. IMPRESSION: Limited study secondary to motion artifact. Chronic microvascular ischemic changes. Cerebral and cerebellar atrophy. If symptoms persists, consider correlation with MRI. A preliminary report was generated at 10:26 p.m. on 10/24/[address] Jimmy Navarrete from [employer].
--- NOTE | 2018-10-25 08:58 | CP.PCM.PN ---
Subjective - Date & Time of Evaluation Date of Evaluation: 10/25/18 Time of Evaluation: 08:54 - Subjective Subjective: for MRI now has had fevers- blood cultures sent TPA was given to mumtaz 10/24- dialysis performed later that day as per nursing PEG feeds have been tolerated Objective - Vital Signs/Intake and Output Vital Signs (last 24 hours): Temp Pulse Resp BP Pulse Ox 101.1 F H 81 12 115/61 98 10/25/18 04:00 10/25/18 07:26 10/25/18 07:26 10/25/18 07:26 10/25/18 07:26 Intake and Output: 10/25/18 10/25/18 06:59 18:59 Intake Total 620 40 Output Total 100 Balance 520 40 - Medications Medications: Current Medications Acetaminophen (Tylenol 650mg/20.3ml Solution Ud) 650 mg PO Q6 PRN PRN Reason: pain+fever Last Admin: 10/25/18 03:32 Dose: 650 mg Aspirin (Aspirin Chewable) 81 mg PO DAILY [facility] Last Admin: 10/24/18 09:24 Dose: 81 mg Epoetin Dedrick (Procrit) 10,000 unit IV MWF [facility] Last Admin: 10/24/18 14:10 Dose: 10,000 unit Heparin Sodium (Porcine) (Heparin) 5,000 units SC Q12 [facility] Last Admin: 10/24/18 21:22 Dose: 5,000 units Hydrocortisone (Cortef) 10 mg PO DAILY [facility] Last Admin: 10/24/18 09:24 Dose: 10 mg Vancomycin HCl 1 gm/ Sodium (Chloride) 250 mls @ 166.7 mls/hr IVPB MWF [facility]; Protocol Last Admin: 10/24/18 18:31 Dose: 166.7 mls/hr Levetiracetam 750 mg/ Sodium (Chloride) 107.5 mls @ 420 mls/hr IVPB Q12H [facility] Last Admin: 10/24/18 21:00 Dose: 420 mls/hr Insulin Aspart (Novolog) 0 unit SC Q6H [facility]; Protocol Last Admin: 10/25/18 05:16 Dose: 3 units Insulin Detemir (Levemir) 30 unit SC Q12 [facility] Last Admin: 10/24/18 21:15 Dose: 30 u Levothyroxine Sodium (Synthroid) 50 mcg PO 0600 [facility] Last Admin: 10/25/18 05:15 Dose: 50 mcg Metoprolol Tartrate (Lopressor) 12.5 mg NG BID [facility] Last Admin: 10/24/18 18:31 Dose: 12.5 mg Mupirocin (Bactroban 2% Nasal) 0.25 gm HILLARY BID [facility] Last Admin: 10/24/18 22:16 Dose: 0.25 gm Pantoprazole Sodium (Protonix Susp) 40 mg PO 0600 [facility] Last Admin: 10/25/18 05:15 Dose: 40 mg Rosuvastatin Calcium (Crestor) 10 mg PO HS [facility] Last Admin: 10/24/18 21:22 Dose: 10 mg - Labs Labs: 10/25/18 05:42 10/25/18 05:42 PT 14.1 SECONDS (9.7-12.2) H 10/19/18 06:21 INR 1.3 10/19/18 06:21 APTT 38 SECONDS (21-34) H 10/19/18 06:21 Assessment and Plan (1) ESRD (end stage renal disease) Status: Acute (2) Diabetic nephropathy associated with type 2 diabetes mellitus Status: Acute (3) CAD (coronary artery disease) Status: Acute (4) HTN (hypertension) Status: Acute - Assessment and Plan (Free Text) Plan: schedule dialysis in AM, then MWF- use 4K bath repeat cultures sent; on IV vanco await MRI results
[2018-10-25] MEDS: Mupirocin 2% Ointment (NASAL) NAS SCH ×2 (10:31→17:57)
[2018-10-25] MEDS: Insulin Detemir 100 units/ml Vial (Levemir) SC SCH ×2 (10:32→22:54)
--- NOTE | 2018-10-25 12:34 | CP.CCUPN ---
<Dyllan Patton - Last Filed: 10/25/18 20:33> CCU Subjective - Physician Review Subjective (Free Text): PGY-1 ICU progress note for Dr Scott service Pt seen and examined at bedside. Patient is resting in bed, sleeping at time of encounter, seen to move her upper and lower extremities at times throughout the day. Does not follow commands. Redness noticed on right portacath. ROS unattainable due to patient's mental status. Critical Care Time Spent (in minutes): 35 CCU Objective - Vital Signs / Intake & Output Vital Signs (Last 4 hours): Vital Signs Temp Pulse Resp BP Pulse Ox 10/25/18 12:02 100.1 F H 10/25/18 11:25 77 14 121/51 L 89 L 10/25/18 10:26 78 14 113/48 L 97 10/25/18 10:11 77 17 95/42 L 97 Intake and Output (Last 8hrs): Intake & Output 10/24/18 10/25/18 10/25/18 22:59 06:59 14:59 Intake Total 620 360 220 Output Total 100 Balance 620 260 220 Weight 184 lb 11.958 oz Intake: Intake, IV Amount 300 100 Right Upper Arm Midline 300 100 Tube Feeding 320 360 120 Output: Stool 100 Other: # Voids Urine, Voided 1 1 1 # Bowel Movements 0 - Physical Exam Head: Positive for: Atraumatic, Normocephalic Conjunctiva: Positive for: Normal Mouth: Positive for: Dry Neck: Positive for: Other (tracheostomy in place with vent, permacath right side chest area ) Respiratory/Chest: Positive for: Decreased Breath Sounds, Other (intubated ). Negative for: Respiratory Distress, Accessory Muscle Use, Tachypneic Cardiovascular: Positive for: Regular Rate and Rhythm, Normal S1, S2 Abdomen: Positive for: Normal Bowel Sounds, Other (PEG tube in place ). Negative for: Tenderness, Distention, Rebound, Guarding Upper Extremity: Positive for: Normal Inspection. Negative for: Cyanosis, Edema Lower Extremity: Positive for: Normal Inspection. Negative for: Edema Neurological: Negative for: GCS=15, CN II-XII Intact, Speech Normal Skin: Positive for: Warm, Dry, Normal Color, Other (permacath in place, midline right upper side ) Psychiatric: Positive for: Agitated. Negative for: Alert, Oriented x 3, Normal Insight, Normal Concentration - Medications Active Medications: Active Medications Generic Name Dose Route Start Last Admin Trade Name Freq PRN Reason Stop Dose Admin Acetaminophen 650 mg 10/25/18 03:30 10/25/18 12:02 Tylenol 650mg/20.3ml Solution Ud PO 650 mg Q6 PRN Administration pain+fever Aspirin 81 mg 10/08/18 10:00 10/25/18 10:31 Aspirin Chewable PO 81 mg DAILY JOCELYN Administration Epoetin Dedrick 10,000 unit 10/17/18 09:00 10/24/18 14:10 Procrit IV 10,000 unit F [facility] Administration Heparin Sodium (Porcine) 5,000 units 10/15/18 10:00 10/25/18 10:31 Heparin SC 5,000 units Q12 JOCELYN Administration Hydrocortisone 10 mg 10/15/18 10:00 10/25/18 10:31 Cortef PO 10 mg DAILY JOCELYN Administration Vancomycin HCl 1 gm/ Sodium 250 mls @ 166.7 mls/hr 10/17/18 09:00 10/24/18 18:31 Chloride IVPB 166.7 mls/hr F JOCELYN Administration Protocol Levetiracetam 750 mg/ Sodium 107.5 mls @ 420 mls/hr 10/22/18 10:00 10/25/18 10:34 Chloride IVPB 420 mls/hr Q12H JOCELYN Administration Insulin Aspart 0 unit 10/18/18 18:00 10/25/18 12:07 Novolog SC 6 units Q6H JOCELYN Administration Protocol Insulin Detemir 30 unit 10/14/18 10:00 10/25/18 10:32 Levemir SC 30 u Q12 JOCELYN Administration Levothyroxine Sodium 50 mcg 09/29/18 08:00 10/25/18 05:15 Synthroid PO 50 mcg 0600 JOCELYN Administration Metoprolol Tartrate 12.5 mg 10/19/18 22:43 10/25/18 10:34 Lopressor NG 12.5 mg BID JOCELYN Administration Mupirocin 0.25 gm 10/16/18 10:00 10/25/18 10:31 Bactroban 2% Nasal HILLARY 0.25 gm BID JOCELYN Administration Pantoprazole Sodium 40 mg 10/09/18 06:00 10/25/18 05:15 Protonix Susp PO 40 mg 0600 JOCELYN Administration Rosuvastatin Calcium 10 mg 09/30/18 22:00 10/24/18 21:22 Crestor PO 10 mg HS JOCELYN Administration - Patient Studies Lab Studies: Microbiology Studies 10/19/18 20:57 Blood Culture - Final Blood-During Dialysis NO GROWTH AFTER 5 DAYS Gram Stain - Final TEST NOT PERFORMED 10/19/18 18:54 Blood Culture - Final Blood-During Dialysis NO GROWTH AFTER 5 DAYS Gram Stain - Final TEST NOT PERFORMED Lab Studies 10/25/18 10/25/18 10/25/18 Range/Units 05:42 05:42 05:09 WBC 9.4 (4.8-10.8) K/uL RBC 3.68 L (3.80-5.20) Mil/uL Hgb 10.1 L (11.0-16.0) g/dL Hct 33.4 L (34.0-47.0) % MCV 90.7 (81.0-99.0) fL MCH 27.5 (27.0-31.0) pg MCHC 30.3 L (33.0-37.0) g/dL RDW 18.5 H (11.5-14.5) % Plt Count 172 (130-400) K/uL MPV 10.1 (7.2-11.7) fL Neut % (Auto) 53.3 (50.0-75.0) % Lymph % (Auto) 18.8 L (20.0-40.0) % Jenkins % (Auto) 17.2 H (0.0-10.0) % Eos % (Auto) 9.6 H (0.0-4.0) % Baso % (Auto) 1.1 (0.0-2.0) % Neut # (Auto) 5.0 (1.8-7.0) K/uL Lymph # (Auto) 1.8 (1.0-4.3) K/uL Jenkins # (Auto) 1.6 H (0.0-0.8) K/uL Eos # (Auto) 0.9 H (0.0-0.7) K/uL Baso # (Auto) 0.1 (0.0-0.2) K/uL Sodium 136 (132-148) mmol/L Potassium 3.3 L (3.6-5.2) mmol/L Chloride 97 L (98-107) mmol/L Carbon Dioxide 29 (22-30) mmol/L Anion Gap 13 (10-20) BUN 21 H (7-17) mg/dL Creatinine 4.1 H (0.7-1.2) mg/dL Est GFR ( Amer) 13 Est GFR (Non-Af Amer) 11 POC Glucose (mg/dL) 239 H (65-110) mg/dL Random Glucose 285 H D (65-105) mg/dL Calcium 7.9 L (8.6-10.4) mg/dl Magnesium 1.9 (1.6-2.3) mg/dL Total Bilirubin 0.5 (0.2-1.3) mg/dL AST 39 H D (14-36) U/L ALT 20 (9-52) U/L Alkaline Phosphatase 159 H D (38-126) U/L Total Protein 6.9 (6.3-8.3) g/dL Albumin 3.4 L (3.5-5.0) g/dL Globulin 3.5 (2.2-3.9) gm/dL Albumin/Globulin Ratio 1.0 (1.0-2.1) 10/24/18 10/24/18 Range/Units 23:40 18:14 WBC (4.8-10.8) K/uL RBC (3.80-5.20) Mil/uL Hgb (11.0-16.0) g/dL Hct (34.0-47.0) % MCV (81.0-99.0) fL MCH (27.0-31.0) pg MCHC (33.0-37.0) g/dL RDW (11.5-14.5) % Plt Count (130-400) K/uL MPV (7.2-11.7) fL Neut % (Auto) (50.0-75.0) % Lymph % (Auto) (20.0-40.0) % Jenkins % (Auto) (0.0-10.0) % Eos % (Auto) (0.0-4.0) % Baso % (Auto) (0.0-2.0) % Neut # (Auto) (1.8-7.0) K/uL Lymph # (Auto) (1.0-4.3) K/uL Jenkins # (Auto) (0.0-0.8) K/uL Eos # (Auto) (0.0-0.7) K/uL Baso # (Auto) (0.0-0.2) K/uL Sodium (132-148) mmol/L Potassium (3.6-5.2) mmol/L Chloride (98-107) mmol/L Carbon Dioxide (22-30) mmol/L Anion Gap (10-20) BUN (7-17) mg/dL Creatinine (0.7-1.2) mg/dL Est GFR ( Amer) Est GFR (Non-Af Amer) POC Glucose (mg/dL) 234 H 204 H (65-110) mg/dL Random Glucose (65-105) mg/dL Calcium (8.6-10.4) mg/dl Magnesium (1.6-2.3) mg/dL Total Bilirubin (0.2-1.3) mg/dL AST (14-36) U/L ALT (9-52) U/L Alkaline Phosphatase (38-126) U/L Total Protein (6.3-8.3) g/dL Albumin (3.5-5.0) g/dL Globulin (2.2-3.9) gm/dL Albumin/Globulin Ratio (1.0-2.1) Laboratory Results - last 24 hr 10/24/18 10/24/18 10/25/18 18:14 23:40 05:09 WBC RBC Hgb Hct MCV MCH MCHC RDW Plt Count MPV Neut % (Auto) Lymph % (Auto) Jenkins % (Auto) Eos % (Auto) Baso % (Auto) Neut # (Auto) Lymph # (Auto) Jenkins # (Auto) Eos # (Auto) Baso # (Auto) Sodium Potassium Chloride Carbon Dioxide Anion Gap BUN Creatinine Est GFR ( Amer) Est GFR (Non-Af Amer) POC Glucose (mg/dL) 204 H 234 H 239 H Random Glucose Calcium Magnesium Total Bilirubin AST ALT Alkaline Phosphatase Total Protein Albumin Globulin Albumin/Globulin Ratio 10/25/18 10/25/18 05:42 05:42 WBC 9.4 RBC 3.68 L Hgb 10.1 L Hct 33.4 L MCV 90.7 MCH 27.5 MCHC 30.3 L RDW 18.5 H Plt Count 172 MPV 10.1 Neut % (Auto) 53.3 Lymph % (Auto) 18.8 L Jenkins % (Auto) 17.2 H Eos % (Auto) 9.6 H Baso % (Auto) 1.1 Neut # (Auto) 5.0 Lymph # (Auto) 1.8 Jenkins # (Auto) 1.6 H Eos # (Auto) 0.9 H Baso # (Auto) 0.1 Sodium 136 Potassium 3.3 L Chloride 97 L Carbon Dioxide 29 Anion Gap 13 BUN 21 H Creatinine 4.1 H Est GFR ( Amer) 13 Est GFR (Non-Af Amer) 11 POC Glucose (mg/dL) Random Glucose 285 H D Calcium 7.9 L Magnesium 1.9 Total Bilirubin 0.5 AST 39 H D ALT 20 Alkaline Phosphatase 159 H D Total Protein 6.9 Albumin 3.4 L Globulin 3.5 Albumin/Globulin Ratio 1.0 Radiology Impressions: Radiology Impressions Head CT 10/24/18 20:33 IMPRESSION: Limited study secondary to motion artifact. Chronic microvascular ischemic changes. Cerebral and cerebellar atrophy. If symptoms persists, consider correlation with MRI. A preliminary report was generated at 10:26 p.m. on 10/24/[address] Jimmy Navarrete from [email or web address]. Fingerstick Blood Sugar Results: 342 Review of Systems - Review of Systems Systems not reviewed;Unavailable: Altered Mental Status Critical Care Progress Note - Ventilator Checklist PUD Prophalyxis: Yes DVT Prophylaxis: Yes Oral Care with Chlorhexidine Gluconate {CHG}: Yes - Vent Settings MODE:: PRVC TIDAL VOLUME:: 450 RESP RATE:: 18 FIO2:: 50 PEEP:: 5 Assessment/Plan - Assessment and Plan (Free Text) Plan: Patient is a 72 yo female w/ PMH of CKD5, CHF, CAD s/p stents, pituiatry adenoma s/p resection, DM2 admitted for respiratory and cardiac arrest s/p permacath placement and AVF on 10-05. s/p permacath on 10-11-18; possible AMS due to anoxic brain injury, now on HD MWF, tracheostomy done on 10/18/17, PEG tube placed 10/23/18. MRI scheduled @ [facility] for tomorrow am. Neuro Intubated via tracheostomy, on propofol vet setting 18/450/5/50 CT head - no definitive internal acute intracranial findings as discussed above. MRI today - f/u results Seroquel 25mg PO Daily Ativan 1mg Q6 PRN continue Keppra 750 mg PO Q12H CV cont Hydralazine cont Metoprolol cont Crestor Aspirin monitor BP, HR Pulm Chest Xray portable 10/21 -Mild pulm venous congestive changes and mild central pulm congestive changes Vent settings 18/430/5/50 Tracheostomy 10/18 Duoneb q6 hydrocortisone GI PEG tube today - Dr Akhtar continues to be afebrile now continue Tube feeds Protonix Heme EPO w/ Dialysis MWF Ferric sodium drip Renal ESRD- changed to MWF sessions erythema around permacath - surgery team to assess for possible infection EPO MWF Nephro- Dr Segundo Endo Levemir 30 SC Q12 Insulin regular SC Q6 Levothyroxine 50 PO daily Hydrocortisone 10 mg PO daily Q6 accuchecks ID +cx on - 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 asp wound culture coagulase neg staph repeat bcx no growth after 4 days Trachasp - no growth stool culture no growth Cathsite - coagulase neg staph Dr Barrios - f/u recs Cefepime Vanc with dialysis (MWF) Mupirocin 2% nasal f/u recent blood cx PPX DVT ppx: Heparin GI ppx: Protonix f/u PT Plan discussed with Dr Tyler Patton, PGY-1 - Date & Time Date: 10/25/18 Time: 10:00 <Bubba Scott - Last Filed: 10/30/18 07:41> CCU Objective - Vital Signs / Intake & Output Intake and Output (Last 8hrs): Intake & Output 10/29/18 10/30/18 10/30/18 22:59 06:59 14:59 Intake Total 450 150 Output Total 0 0 Balance 450 150 Weight 180 lb Intake: Intake, IV Amount 250 Right Upper arm 250 Tube Feeding 200 150 Output: Urine 0 0 Urine, Voided 0 0 Other: # Bowel Movements 170 - Medications Active Medications: Active Medications Generic Name Dose Route Start Last Admin Trade Name Freq PRN Reason Stop Dose Admin Acetaminophen 650 mg 10/25/18 03:30 10/29/18 20:25 Tylenol 650mg/20.3ml Solution Ud PO 650 mg Q6 PRN Administration pain+fever Aspirin 81 mg 10/08/18 10:00 10/29/18 09:01 Aspirin Chewable PO 81 mg DAILY JOCELYN Administration Epoetin Dedrick 10,000 unit 10/17/18 09:00 10/29/18 10:35 Procrit IV 10,000 unit MWF JOCELYN Administration Glipizide 10 mg 10/28/18 22:00 10/29/18 21:00 Glucotrol PO 10 mg Q12 JOCELYN Administration Heparin Sodium (Porcine) 5,000 units 10/15/18 10:00 10/29/18 21:01 Heparin SC 5,000 units Q12 JOCELYN Administration Hydrocortisone 10 mg 10/15/18 10:00 10/29/18 09:01 Cortef PO 10 mg DAILY JOCELYN Administration Norepinephrine Bitartrate 4 mg 254 mls @ 15.24 mls/hr 10/30/18 07:25 / Sodium Chloride IV .[id number] PRN TITRATE PER MD ORDER Protocol 4 MCG/MIN Insulin Aspart 0 unit 10/18/18 18:00 10/30/18 06:17 Novolog SC 3 units Q6H JOCELYN Administration Protocol Insulin Detemir 40 unit 10/28/18 22:00 10/29/18 21:01 Levemir SC 40 u HS JOCELYN Administration Levetiracetam 1,000 mg 10/28/18 18:00 10/29/18 17:37 Keppra PO 1,000 mg BID JOCELYN Administration Levothyroxine Sodium 50 mcg 09/29/18 08:00 10/30/18 05:12 Synthroid PO 50 mcg 0600 JOCELYN Administration Pantoprazole Sodium 40 mg 10/09/18 06:00 10/30/18 05:13 Protonix Susp PO 40 mg 0600 JOCELYN Administration Rosuvastatin Calcium 10 mg 09/30/18 22:00 10/29/18 21:00 Crestor PO 10 mg HS JOCELYN Administration - Patient Studies Lab Studies: Microbiology Studies 10/24/18 12:40 Blood Culture - Final Blood-During Dialysis NO GROWTH AFTER 5 DAYS Gram Stain - Final TEST NOT PERFORMED 10/24/18 12:00 Blood Culture - Final Blood-During Dialysis NO GROWTH AFTER 5 DAYS Gram Stain - Final TEST NOT PERFORMED Lab Studies 10/30/18 10/30/18 10/30/18 Range/Units 07:34 06:13 00:29 Puncture Site Rba pCO2 30 L (35-45) mm/Hg pO2 112 H (80-100) mm/Hg HCO3 21.9 (21-28) mmol/L ABG pH 7.42 (7.35-7.45) ABG Total CO2 20.4 L (22-28) mmol/L ABG O2 Saturation 99.3 H (95-98) % ABG Base Excess -3.9 L (-2.0-3.0) mmol/L Jimenez Test Na ABG Potassium 3.2 L (3.6-5.2) mmol/L A-a O2 Difference 100.0 mm/Hg Respiratory Index 0.9 Sodium 141.0 (132-148) mmol/l Chloride 108.0 H (98-107) mmol/L Glucose 247 H (65-105) mg/dl Lactate 1.6 (0.7-2.1) mmol/L Vent Mode Prvc Mechanical Rate 14 FiO2 35.0 % Tidal Volume 450 PEEP 5 POC Glucose (mg/dL) 213 H 193 H (65-110) mg/dL Arterial Blood Potassium 3.2 L (3.6-5.2) mmol/L Hep Bs Antigen (NEGATIVE) 10/29/18 10/29/18 10/29/18 Range/Units 17:44 11:25 09:16 Puncture Site pCO2 (35-45) mm/Hg pO2 (80-100) mm/Hg HCO3 (21-28) mmol/L ABG pH (7.35-7.45) ABG Total CO2 (22-28) mmol/L ABG O2 Saturation (95-98) % ABG Base Excess (-2.0-3.0) mmol/L Jimenez Test ABG Potassium (3.6-5.2) mmol/L A-a O2 Difference mm/Hg Respiratory Index Sodium (132-148) mmol/l Chloride (98-107) mmol/L Glucose (65-105) mg/dl Lactate (0.7-2.1) mmol/L Vent Mode Mechanical Rate FiO2 % Tidal Volume PEEP POC Glucose (mg/dL) 225 H 128 H (65-110) mg/dL Arterial Blood Potassium (3.6-5.2) mmol/L Hep Bs Antigen Negative (NEGATIVE) Laboratory Results - last 24 hr 10/29/18 10/29/18 10/29/18 09:16 11:25 17:44 Puncture Site pCO2 pO2 HCO3 ABG pH ABG Total CO2 ABG O2 Saturation ABG Base Excess Jimenez Test ABG Potassium A-a O2 Difference Respiratory Index Sodium Chloride Glucose Lactate Vent Mode Mechanical Rate FiO2 Tidal Volume PEEP POC Glucose (mg/dL) 128 H 225 H Arterial Blood Potassium Hep Bs Antigen Negative 10/30/18 10/30/18 10/30/18 00:29 06:13 07:34 Puncture Site Rba pCO2 30 L pO2 112 H HCO3 21.9 ABG pH 7.42 ABG Total CO2 20.4 L ABG O2 Saturation 99.3 H ABG Base Excess -3.9 L Jimenez Test Na ABG Potassium 3.2 L A-a O2 Difference 100.0 Respiratory Index 0.9 Sodium 141.0 Chloride 108.0 H Glucose 247 H Lactate 1.6 Vent Mode Prvc Mechanical Rate 14 FiO2 35.0 Tidal Volume 450 PEEP 5 POC Glucose (mg/dL) 193 H 213 H Arterial Blood Potassium 3.2 L Hep Bs Antigen Radiology Impressions: Radiology Impressions Chest X-Ray 10/29/18 07:00 Impression: Lines and tubes in stable position. Elevated right hemidiaphragm. Venous congestion. Right hilar prominence. Patchy increased markings at the left lung base. Cardiomegaly. Atherosclerotic calcification at the aortic knob. Few distended loops of small bowel in the mid abdomen. Degenerative changes in the spine and shoulders. Attending/Attestation - Attestation I have personally seen and examined this patient.: Yes I have fully participated in the care of the patient.: Yes I have reviewed all pertinent clinical information: Yes Notes (Text): Today: October The patient was Seen/interviewed and examined by me at the bedside during ICU round, Medical records reviewed and Management issues were discussed and formulated with the house staff. Events reviewed I have reviewed all the relevant clinical, laboratory, hemodynamic, radiographic data and medications Pain issues, skin care, head of the bed elevation, glycemic control were addressed. I concur with resident's assessment and plan of care as transcribed in Dr. Patton note.
[2018-10-25] MEDS ORDERED: Potassium Chloride 20 mEq/15 ml LIQ UD PO ONE (17:48)
--- NOTE | 2018-10-25 19:20 | CP.PCM.PN ---
Subjective - Date & Time of Evaluation Date of Evaluation: 10/25/18 Time of Evaluation: 19:19 - Subjective Subjective: pt is still having same clinical condition moving much family at bed side MRI negative for any new CVA mild tremor at times in the face noted OOB to chair aspiration precautions Objective - Vital Signs/Intake and Output Vital Signs (last 24 hours): Temp Pulse Resp BP Pulse Ox 99.8 F H 77 12 142/59 L 99 10/25/18 16:00 10/25/18 18:00 10/25/18 18:00 10/25/18 18:33 10/25/18 18:00 Intake and Output: 10/25/18 10/26/18 18:59 06:59 Intake Total 500 Output Total 150 Balance 350 - Medications Medications: Current Medications Acetaminophen (Tylenol 650mg/20.3ml Solution Ud) 650 mg PO Q6 PRN PRN Reason: pain+fever Last Admin: 10/25/18 12:02 Dose: 650 mg Aspirin (Aspirin Chewable) 81 mg PO DAILY COUNTS INCLUDE 234 BEDS AT [facility] Last Admin: 10/25/18 10:31 Dose: 81 mg Epoetin Dedrick (Procrit) 10,000 unit IV MWF COUNTS INCLUDE 234 BEDS AT THE [facility] Last Admin: 10/24/18 14:10 Dose: 10,000 unit Heparin Sodium (Porcine) (Heparin) 5,000 units SC Q12 COUNTS INCLUDE 234 BEDS AT THE [facility] Last Admin: 10/25/18 10:31 Dose: 5,000 units Hydrocortisone (Cortef) 10 mg PO DAILY COUNTS INCLUDE 234 BEDS AT THE [facility] Last Admin: 10/25/18 10:31 Dose: 10 mg Vancomycin HCl 1 gm/ Sodium (Chloride) 250 mls @ 166.7 mls/hr IVPB MWF COUNTS INCLUDE 234 BEDS AT THE [facility]; Protocol Last Admin: 10/24/18 18:31 Dose: 166.7 mls/hr Levetiracetam 750 mg/ Sodium (Chloride) 107.5 mls @ 420 mls/hr IVPB Q12H COUNTS INCLUDE 234 BEDS AT THE [facility] Last Admin: 10/25/18 10:34 Dose: 420 mls/hr Insulin Aspart (Novolog) 0 unit SC Q6H COUNTS INCLUDE 234 BEDS AT THE [facility]; Protocol Last Admin: 10/25/18 17:58 Dose: 8 units Insulin Detemir (Levemir) 30 unit SC Q12 COUNTS INCLUDE 234 BEDS AT [facility] Last Admin: 10/25/18 10:32 Dose: 30 u Levothyroxine Sodium (Synthroid) 50 mcg PO 0600 COUNTS INCLUDE 234 BEDS AT [facility] Last Admin: 10/25/18 05:15 Dose: 50 mcg Metoprolol Tartrate (Lopressor) 12.5 mg NG BID JOCELYN Last Admin: 10/25/18 17:57 Dose: 12.5 mg Mupirocin (Bactroban 2% Nasal) 0.25 gm HILLARY BID COUNTS INCLUDE 234 BEDS AT [facility] Last Admin: 10/25/18 17:57 Dose: 0.25 gm Pantoprazole Sodium (Protonix Susp) 40 mg PO 0600 COUNTS INCLUDE 234 BEDS AT [facility] Last Admin: 10/25/18 05:15 Dose: 40 mg Rosuvastatin Calcium (Crestor) 10 mg PO HS COUNTS INCLUDE 234 BEDS AT [facility] Last Admin: 10/24/18 21:22 Dose: 10 mg - Labs Labs: 10/25/18 05:42 10/25/18 05:42 PT 14.1 SECONDS (9.7-12.2) H 10/19/18 06:21 INR 1.3 10/19/18 06:21 APTT 38 SECONDS (21-34) H 10/19/18 06:21 Assessment and Plan (1) Acute on chronic renal failure Status: Acute (2) Diabetic nephropathy associated with type 2 diabetes mellitus Status: Acute (3) Uremia, acute Status: Acute
--- NOTE | 2018-10-25 21:48 | CP.PCM.PN ---
Subjective - Date & Time of Evaluation Date of Evaluation: 10/25/18 Time of Evaluation: 21:47 - Subjective Subjective: Patient seen and evaluated this am Clinical condition remains unchanged Moves a lot and does not follow commands s/p Trach and PEG Physical Examination - Head Exam Head Exam: ATRAUMATIC, NORMAL INSPECTION - Eye Exam Eye Exam: EOMI, Normal appearance, PERRL. absent: Periorbital tenderness Pupil Exam: NORMAL ACCOMODATION - ENT Exam ENT Exam: Mucous Membranes Moist, Normal Oropharynx - Respiratory Exam Respiratory Exam: Clear to Ausculation Bilateral. absent: Prolonged Expiratory Phase, Respiratory Distress - Cardiovascular Exam Cardiovascular Exam: REGULAR RHYTHM, +S1, +S2. absent: Rubs - GI/Abdominal Exam GI & Abdominal Exam: Soft, Normal Bowel Sounds. absent: Hyperactive Bowel Sounds - Extremities Exam Extremities Exam: absent: Pedal Edema - Back Exam Back Exam: NORMAL INSPECTION. absent: CVA tenderness (R), paraspinal tenderness - Neurological Exam Neurological Exam: Altered - Psychiatric Exam Psychiatric exam: Agitated, Normal Affect, Normal Mood - Skin Skin Exam: Dry Assessment and Plan - Assessment and Plan (Free Text) Assessment: 72 year old female with past medical history of CAD, CHF, HTN, HLD, pituitary adenoma, is being seen s/p respiratory arrest during AV fistula placement surgery. s/p permacath on 10-11-18; possible AMS due to anoxic brain injury, now on HD MWF, tracheostomy done on 10/18/17, planning for PEG placement by GI today. Plan: Respiratory failure - Currently intubated and sedated. Management per primary care team - Completed hypothermic protocol -Bedside PEG placement completed today. Medications: Levetiracetam 420mls/hrIVPB Q12H MIR MRSA in trach -Continue Cefepime 1gm ivpb daily -Continue Vancomycin 1gm ivpb mwf Anoxic brain injury -Pending repeat MRI at [facility]. Patient remains agigtated and unable to go for imaging at this time. HTN -Lopressor 12.5mg NG BID MIR HLD -Continue Rosuvastatin 10mg PO HS MIR CAD -Continue Aspirin 81mg PO Daily MIR DM -Levemir 30UNIT sc q12 mir Hypothyroidism -Continue Synthroid 50mcg PO 0600 MIR CKD on HD - S/p right permacath placed on 10/11 -Procrit 10,000 unit IV MWF ppx -Protonix -Heparin Objective - Vital Signs/Intake and Output Vital Signs (last 24 hours): Temp Pulse Resp BP Pulse Ox 99.8 F H 78 13 138/58 L 96 10/25/18 16:00 10/25/18 19:25 10/25/18 19:25 10/25/18 19:25 10/25/18 19:25 Intake and Output: 10/25/18 10/26/18 18:59 06:59 Intake Total 500 40 Output Total 150 Balance 350 40 - Medications Medications: Current Medications Acetaminophen (Tylenol 650mg/20.3ml Solution Ud) 650 mg PO Q6 PRN PRN Reason: pain+fever Last Admin: 10/25/18 12:02 Dose: 650 mg Aspirin (Aspirin Chewable) 81 mg PO DAILY [facility] Last Admin: 10/25/18 10:31 Dose: 81 mg Epoetin Dedrick (Procrit) 10,000 unit IV [facility] Last Admin: 10/24/18 14:10 Dose: 10,000 unit Heparin Sodium (Porcine) (Heparin) 5,000 units SC Q12 [facility] Last Admin: 10/25/18 10:31 Dose: 5,000 units Hydrocortisone (Cortef) 10 mg PO DAILY [facility] Last Admin: 10/25/18 10:31 Dose: 10 mg Vancomycin HCl 1 gm/ Sodium (Chloride) 250 mls @ 166.7 mls/hr IVPB [facility] [place]; Protocol Last Admin: 10/24/18 18:31 Dose: 166.7 mls/hr Levetiracetam 750 mg/ Sodium (Chloride) 107.5 mls @ 420 mls/hr IVPB Q12H [facility] Last Admin: 10/25/18 10:34 Dose: 420 mls/hr Insulin Aspart (Novolog) 0 unit SC Q6H [facility]; Protocol Last Admin: 10/25/18 17:58 Dose: 8 units Insulin Detemir (Levemir) 30 unit SC Q12 [facility] Last Admin: 10/25/18 10:32 Dose: 30 u Levothyroxine Sodium (Synthroid) 50 mcg PO 0600 [facility] Last Admin: 10/25/18 05:15 Dose: 50 mcg Metoprolol Tartrate (Lopressor) 12.5 mg NG BID [facility] Last Admin: 10/25/18 17:57 Dose: 12.5 mg Mupirocin (Bactroban 2% Nasal) 0.25 gm HILLARY BID [facility] Last Admin: 10/25/18 17:57 Dose: 0.25 gm Pantoprazole Sodium (Protonix Susp) 40 mg PO 0600 [facility] Last Admin: 10/25/18 05:15 Dose: 40 mg Rosuvastatin Calcium (Crestor) 10 mg PO HS [facility] Last Admin: 10/24/18 21:22 Dose: 10 mg - Labs Labs: 10/25/18 05:42 10/25/18 05:42 PT 14.1 SECONDS (9.7-12.2) H 10/19/18 06:21 INR 1.3 10/19/18 06:21 APTT 38 SECONDS (21-34) H 10/19/18 06:21
[2018-10-26] MEDS: Acetaminophen 650mg/20.3ml solution UD PO PRN ×2 (03:41→21:00)
[2018-10-26 06:44] LABS: BASO # 0.1 K/uL (0.0-0.2); BASO % 1.2 % (0.0-2.0); EOS % 12.7 % (0.0-4.0); HEMOGLOBIN 10.9 g/dL (11.0-16.0); LYMPH # 1.5 K/uL (1.0-4.3); LYMPH % 19.5 % (20.0-40.0); MEAN CELL VOLUME 91.6 fL (81.0-99.0); MEAN CORPUSCULAR HEMOGLOBIN 28.2 pg (27.0-31.0); MEAN CORPUSCULAR HGB CONC 30.8 g/dL (33.0-37.0); MEAN PLATELET VOLUME 10.4 fL (7.2-11.7); MONO # 1.1 K/uL (0.0-0.8); MONO % 15.1 % (0.0-10.0); NEUT # 3.9 K/uL (1.8-7.0); NEUT % 51.5 % (50.0-75.0); NRBC % 0.1 % (0.0-2.0); RBC 3.88 Mil/uL (3.80-5.20); RED CELL DISTRIBUTION WIDTH 18.7 % (11.5-14.5); WHITE BLOOD COUNT 7.6 K/uL (4.8-10.8)
[2018-10-26] MEDS: (Novolog) Insulin Aspart, Recombinant 100 u/ml 10 ml vial SC SCH ×3 (06:45→18:21)
[2018-10-26] MEDS: Levothyroxine 50 MCG TAB PO SCH (06:45)
[2018-10-26] MEDS: Pantoprazole 40 mg Susp UD PO SCH (06:45)
[2018-10-26 06:57] LABS: ALBUMIN 3.4 g/dL (3.5-5.0); CALCIUM 8.4 mg/dl (8.6-10.4)
[2018-10-26] MEDS: Mupirocin 2% Ointment (NASAL) NAS SCH ×2 (09:21→18:20)
[2018-10-26] MEDS: Epoetin Alfa 10,000 unit/ml Dialysis IV SCH (10:50)
[2018-10-26] MEDS ORDERED: Albumin Human 25% (12.5 gm/50 ml) IV SCH ×2 (11:30→12:00)
--- NOTE | 2018-10-26 12:23 | CP.PCM.PN ---
Subjective - Date & Time of Evaluation Date of Evaluation: 10/26/18 Time of Evaluation: 12:20 - Subjective Subjective: s/p MRI- negative eyes open now- seen at dialysis; not verbalizing PEG feeds on hold during dialysis UF not tolerated well- goal decreased to 1500ml midodrine added for hypotension IV albumin given at dialysis for low BP Objective - Vital Signs/Intake and Output Vital Signs (last 24 hours): Temp Pulse Resp BP Pulse Ox 98.4 F 78 13 106/73 100 10/26/18 09:10 10/26/18 11:51 10/26/18 12:00 10/26/18 11:55 10/26/18 10:37 Intake and Output: 10/26/18 10/26/18 06:59 18:59 Intake Total 740 120 Output Total 125 Balance 615 120 - Medications Medications: Current Medications Acetaminophen (Tylenol 650mg/20.3ml Solution Ud) 650 mg PO Q6 PRN PRN Reason: pain+fever Last Admin: 10/26/18 03:41 Dose: 650 mg Albumin Human (Albumin Human 25% (12.5 Gm/50 Ml)) 12.5 gm IV Q2H [facility] Stop: 10/26/18 14:01 Aspirin (Aspirin Chewable) 81 mg PO DAILY [facility] Last Admin: 10/25/18 10:31 Dose: 81 mg Epoetin Dedrick (Procrit) 10,000 unit IV MWF [facility] Last Admin: 10/26/18 10:50 Dose: 10,000 unit Heparin Sodium (Porcine) (Heparin) 5,000 units SC Q12 [facility] Last Admin: 10/26/18 09:21 Dose: 5,000 units Hydrocortisone (Cortef) 10 mg PO DAILY [facility] Last Admin: 10/25/18 10:31 Dose: 10 mg Vancomycin HCl 1 gm/ Sodium (Chloride) 250 mls @ 166.7 mls/hr IVPB MWF [facility]; Protocol Last Admin: 10/24/18 18:31 Dose: 166.7 mls/hr Levetiracetam 750 mg/ Sodium (Chloride) 107.5 mls @ 420 mls/hr IVPB Q12H [facility] Last Admin: 10/25/18 22:54 Dose: 420 mls/hr Insulin Aspart (Novolog) 0 unit SC Q6H [facility]; Protocol Last Admin: 10/26/18 06:45 Dose: 8 units Insulin Detemir (Levemir) 30 unit SC Q12 [facility] Last Admin: 10/25/18 22:54 Dose: 30 u Levothyroxine Sodium (Synthroid) 50 mcg PO 0600 [facility] Last Admin: 10/26/18 06:45 Dose: 50 mcg Metoprolol Tartrate (Lopressor) 12.5 mg NG BID [facility] Last Admin: 10/25/18 17:57 Dose: 12.5 mg Midodrine (Proamatine) 2.5 mg PO TID [facility] Mupirocin (Bactroban 2% Nasal) 0.25 gm HLILARY BID [facility] Last Admin: 10/26/18 09:21 Dose: 0.25 gm Pantoprazole Sodium (Protonix Susp) 40 mg PO 0600 [facility] Last Admin: 10/26/18 06:45 Dose: 40 mg Rosuvastatin Calcium (Crestor) 10 mg PO HS [facility] Last Admin: 10/25/18 22:54 Dose: 10 mg - Labs Labs: 10/26/18 06:38 10/26/18 06:38 PT 14.1 SECONDS (9.7-12.2) H 10/19/18 06:21 INR 1.3 10/19/18 06:21 APTT 38 SECONDS (21-34) H 10/19/18 06:21 - Constitutional Appears: No Acute Distress, Confused, Chronically Ill - Head Exam Head Exam: ATRAUMATIC, NORMAL INSPECTION - Eye Exam Eye Exam: EOMI, Normal appearance - Neck Exam Neck Exam: Normal Inspection. absent: Tenderness - Respiratory Exam Respiratory Exam: Clear to Ausculation Bilateral, NORMAL BREATHING PATTERN - Cardiovascular Exam Cardiovascular Exam: REGULAR RHYTHM, +S1 - GI/Abdominal Exam GI & Abdominal Exam: Soft. absent: Tenderness - Extremities Exam Extremities Exam: Normal Inspection. absent: Tenderness - Neurological Exam Neurological Exam: Altered - Skin Skin Exam: Dry, Warm Assessment and Plan (1) ESRD (end stage renal disease) Status: Acute (2) Diabetic nephropathy associated with type 2 diabetes mellitus Status: Acute (3) CAD (coronary artery disease) Status: Acute (4) HTN (hypertension) Status: Acute - Assessment and Plan (Free Text) Plan: Decrease UF goal next HD 10/29 await full culture results midodrine added for hypotension
[2018-10-26] MEDS: Insulin Detemir 100 units/ml Vial (Levemir) SC SCH ×2 (12:35→21:55)
--- NOTE | 2018-10-26 20:13 | CP.PCM.PN ---
Subjective - Date & Time of Evaluation Date of Evaluation: 10/26/18 Time of Evaluation: 14:00 - Subjective Subjective: dictated Objective - Vital Signs/Intake and Output Vital Signs (last 24 hours): Temp Pulse Resp BP Pulse Ox 97.4 F L 88 14 139/55 L 62 L 10/26/18 16:00 10/26/18 18:00 10/26/18 17:00 10/26/18 16:12 10/26/18 12:35 Intake and Output: 10/26/18 10/27/18 18:59 06:59 Intake Total 880 Output Total 1300 Balance -420 - Medications Medications: Current Medications Acetaminophen (Tylenol 650mg/20.3ml Solution Ud) 650 mg PO Q6 PRN PRN Reason: pain+fever Last Admin: 10/26/18 03:41 Dose: 650 mg Aspirin (Aspirin Chewable) 81 mg PO DAILY [facility] Last Admin: 10/26/18 13:48 Dose: 81 mg Epoetin Dedrick (Procrit) 10,000 unit IV [facility] Last Admin: 10/26/18 10:50 Dose: 10,000 unit Heparin Sodium (Porcine) (Heparin) 5,000 units SC Q12 [facility] Last Admin: 10/26/18 09:21 Dose: 5,000 units Hydrocortisone (Cortef) 10 mg PO DAILY [facility] Last Admin: 10/26/18 13:48 Dose: 10 mg Vancomycin HCl 1 gm/ Sodium (Chloride) 250 mls @ 166.7 mls/hr IVPB MWF [facility]; Protocol Last Admin: 10/26/18 13:47 Dose: 166.7 mls/hr Levetiracetam 750 mg/ Sodium (Chloride) 107.5 mls @ 420 mls/hr IVPB Q12H [facility] Last Admin: 10/26/18 12:49 Dose: 420 mls/hr Insulin Aspart (Novolog) 0 unit SC Q6H [facility]; Protocol Last Admin: 10/26/18 18:21 Dose: 3 units Insulin Detemir (Levemir) 30 unit SC Q12 [facility] Last Admin: 10/26/18 12:35 Dose: 30 u Levothyroxine Sodium (Synthroid) 50 mcg PO 0600 [facility] Last Admin: 10/26/18 06:45 Dose: 50 mcg Metoprolol Tartrate (Lopressor) 12.5 mg NG BID [facility] Last Admin: 10/26/18 17:57 Dose: Not Given Midodrine (Proamatine) 2.5 mg PO TID [facility] Last Admin: 10/26/18 17:25 Dose: Not Given Mupirocin (Bactroban 2% Nasal) 0.25 gm HILLARY BID [facility] Last Admin: 10/26/18 18:20 Dose: 0.25 gm Pantoprazole Sodium (Protonix Susp) 40 mg PO 0600 [facility] Last Admin: 10/26/18 06:45 Dose: 40 mg Rosuvastatin Calcium (Crestor) 10 mg PO HS [facility] Last Admin: 10/25/18 22:54 Dose: 10 mg - Labs Labs: 10/26/18 06:38 10/26/18 06:38 PT 14.1 SECONDS (9.7-12.2) H 10/19/18 06:21 INR 1.3 10/19/18 06:21 APTT 38 SECONDS (21-34) H 10/19/18 06:21
--- NOTE | 2018-10-26 22:18 | PN ---
DATE: 10/26/2018 INFECTIOUS DISEASE FOLLOWUP SUBJECTIVE: The patient remains unconscious with involuntary movements. PHYSICAL EXAMINATION: HEENT: Head is atraumatic, normocephalic. Eyes are closed. GENERAL: She remains on the trach-vent. Eyes remain closed. She is anoxic. VITAL SIGNS: She had some fever yesterday, but today her temperature is 97.4, pulse is 78, blood pressures is 115/52, and respirations are 13 on the vent. NECK: Supple. LUNGS: Clear. HEART: S1 and S2 are regular. ABDOMEN: Soft, nontender. No guarding, no rigidity present. EXTREMITIES: Have foot protectors on. She still has the right side line which probably can be removed. MEDICATIONS: She is on Epogen, aspirin, hydrocortisone, insulin, Keppra, levothyroxine, metoprolol, ProAmatine, mupirocin, Protonix, and Crestor. She is on vancomycin. ASSESSMENT AND PLAN: We did several blood cultures which are all negative. These were through the dialysis catheter on 10/24/2018 and on 10/19/2018. One was from the dialysis catheter. The other was a catheter site which showed coagulase-negative staph. I think at this time if she becomes febrile, the peripherally inserted central catheter line should be discontinued and to discontinue vancomycin also. She has been on vancomycin since I started seeing her which was for a sputum having methicillin-resistant Staphylococcus aureus. Sara Barrios MD
--- NOTE | 2018-10-26 23:51 | CP.PCM.PN ---
Subjective - Date & Time of Evaluation Date of Evaluation: 10/26/18 Time of Evaluation: 23:50 - Subjective Subjective: Patient seen and evaluated this am No new cardiac events noted Conservative cardiac events Physical Examination - Head Exam Head Exam: ATRAUMATIC, NORMAL INSPECTION - Eye Exam Eye Exam: EOMI, Normal appearance, PERRL. absent: Periorbital tenderness Pupil Exam: NORMAL ACCOMODATION - ENT Exam ENT Exam: Mucous Membranes Moist, Normal Oropharynx - Respiratory Exam Respiratory Exam: Clear to Ausculation Bilateral. absent: Prolonged Expiratory Phase, Respiratory Distress - Cardiovascular Exam Cardiovascular Exam: REGULAR RHYTHM, +S1, +S2. absent: Rubs - GI/Abdominal Exam GI & Abdominal Exam: Soft, Normal Bowel Sounds. absent: Hyperactive Bowel Sounds - Extremities Exam Extremities Exam: absent: Pedal Edema - Back Exam Back Exam: NORMAL INSPECTION. absent: CVA tenderness (R), paraspinal tenderness - Neurological Exam Neurological Exam: Altered - Psychiatric Exam Psychiatric exam: Agitated, Normal Affect, Normal Mood - Skin Skin Exam: Dry Assessment and Plan - Assessment and Plan (Free Text) Assessment: 72 year old female with past medical history of CAD, CHF, HTN, HLD, pituitary adenoma, is being seen s/p respiratory arrest during AV fistula placement surgery. s/p permacath on 10-11-18; possible AMS due to anoxic brain injury, now on HD MWF, tracheostomy done on 10/18/17, planning for PEG placement by GI today. Plan: Respiratory failure - Currently intubated and sedated. Management per primary care team - Completed hypothermic protocol -Bedside PEG placement completed today. Medications: Levetiracetam 420mls/hrIVPB Q12H MIR MRSA in trach -Continue Cefepime 1gm ivpb daily -Continue Vancomycin 1gm ivpb mwf Anoxic brain injury -Pending repeat MRI at [facility]. Patient remains agigtated and unable to go for imaging at this time. HTN -Lopressor 12.5mg NG BID MIR HLD -Continue Rosuvastatin 10mg PO HS MIR CAD -Continue Aspirin 81mg PO Daily MIR DM -Levemir 30UNIT sc q12 mir Hypothyroidism -Continue Synthroid 50mcg PO 0600 MIR CKD on HD - S/p right permacath placed on 10/11 -Procrit 10,000 unit IV MWF ppx -Protonix -Heparin Objective - Vital Signs/Intake and Output Vital Signs (last 24 hours): Temp Pulse Resp BP Pulse Ox 101.4 F H 83 15 110/47 L 100 10/26/18 20:00 10/26/18 23:00 10/26/18 23:00 10/26/18 20:11 10/26/18 22:00 Intake and Output: 10/26/18 10/27/18 18:59 06:59 Intake Total 880 Output Total 1300 Balance -420 - Medications Medications: Current Medications Acetaminophen (Tylenol 650mg/20.3ml Solution Ud) 650 mg PO Q6 PRN PRN Reason: pain+fever Last Admin: 10/26/18 21:00 Dose: 650 mg Aspirin (Aspirin Chewable) 81 mg PO DAILY [facility] Last Admin: 10/26/18 13:48 Dose: 81 mg Epoetin Dedrick (Procrit) 10,000 unit IV MWF [facility] Last Admin: 10/26/18 10:50 Dose: 10,000 unit Heparin Sodium (Porcine) (Heparin) 5,000 units SC Q12 [facility] Last Admin: 10/26/18 21:57 Dose: 5,000 units Hydrocortisone (Cortef) 10 mg PO DAILY [facility] Last Admin: 10/26/18 13:48 Dose: 10 mg Vancomycin HCl 1 gm/ Sodium (Chloride) 250 mls @ 166.7 mls/hr IVPB MWF [facility]; Protocol Last Admin: 10/26/18 13:47 Dose: 166.7 mls/hr Levetiracetam 750 mg/ Sodium (Chloride) 107.5 mls @ 420 mls/hr IVPB Q12H [facility] Last Admin: 10/26/18 22:00 Dose: 420 mls/hr Insulin Aspart (Novolog) 0 unit SC Q6H [facility]; Protocol Last Admin: 10/26/18 18:21 Dose: 3 units Insulin Detemir (Levemir) 30 unit SC Q12 [facility] Last Admin: 10/26/18 21:55 Dose: 30 u Levothyroxine Sodium (Synthroid) 50 mcg PO 0600 [facility] Last Admin: 10/26/18 06:45 Dose: 50 mcg Metoprolol Tartrate (Lopressor) 12.5 mg NG BID [facility] Last Admin: 10/26/18 17:57 Dose: Not Given Midodrine (Proamatine) 2.5 mg PO TID [facility] Last Admin: 10/26/18 17:25 Dose: Not Given Mupirocin (Bactroban 2% Nasal) 0.25 gm HILLARY BID [facility] Last Admin: 10/26/18 18:20 Dose: 0.25 gm Pantoprazole Sodium (Protonix Susp) 40 mg PO 0600 [facility] Last Admin: 10/26/18 06:45 Dose: 40 mg Rosuvastatin Calcium (Crestor) 10 mg PO HS [facility] Last Admin: 10/26/18 21:57 Dose: 10 mg - Labs Labs: 10/26/18 06:38 10/26/18 06:38 PT 14.1 SECONDS (9.7-12.2) H 10/19/18 06:21 INR 1.3 10/19/18 06:21 APTT 38 SECONDS (21-34) H 10/19/18 06:21
[2018-10-27] MEDS: Acetaminophen 650mg/20.3ml solution UD PO PRN (05:00)
[2018-10-27] MEDS: (Novolog) Insulin Aspart, Recombinant 100 u/ml 10 ml vial SC SCH ×5 (06:00→23:53)
[2018-10-27 06:22] LABS: BASO # 0.1 K/uL (0.0-0.2); BASO % 1.2 % (0.0-2.0); EOS # 0.9 K/uL (0.0-0.7); HEMOGLOBIN 10.6 g/dL (11.0-16.0); LYMPH % 21.6 % (20.0-40.0); MEAN CELL VOLUME 91.2 fL (81.0-99.0); MEAN CORPUSCULAR HEMOGLOBIN 28.1 pg (27.0-31.0); MEAN CORPUSCULAR HGB CONC 30.9 g/dL (33.0-37.0); MEAN PLATELET VOLUME 10.3 fL (7.2-11.7); MONO # 1.5 K/uL (0.0-0.8); MONO % 16.6 % (0.0-10.0); NEUT # 4.7 K/uL (1.8-7.0); NEUT % 50.6 % (50.0-75.0); NRBC % 0.3 % (0.0-2.0); RBC 3.76 Mil/uL (3.80-5.20); WHITE BLOOD COUNT 9.3 K/uL (4.8-10.8)
[2018-10-27] MEDS: Pantoprazole 40 mg Susp UD PO SCH (06:27)
[2018-10-27] MEDS: Levothyroxine 50 MCG TAB PO SCH (06:28)
[2018-10-27 06:35] LABS: ALB/GLOB RATIO 1.1 (1.0-2.1); ALBUMIN 3.7 g/dL (3.5-5.0); CALCIUM 8.5 mg/dl (8.6-10.4)
--- NOTE | 2018-10-27 09:07 | CP.PCM.PN ---
Subjective - Date & Time of Evaluation Date of Evaluation: 10/27/18 Time of Evaluation: 09:04 - Subjective Subjective: s/p dialysis 10/26 Remains confused, not verbalizing, thrashes about with PEG feeds, trached BP stable lytes acceptable repeat cultures negative, still febrile Objective - Vital Signs/Intake and Output Vital Signs (last 24 hours): Temp Pulse Resp BP Pulse Ox 101 F H 84 12 163/71 H 100 10/27/18 08:00 10/27/18 08:11 10/27/18 08:11 10/27/18 08:11 10/27/18 08:11 Intake and Output: 10/27/18 10/27/18 06:59 18:59 Intake Total 360 Balance 360 - Medications Medications: Current Medications Acetaminophen (Tylenol 650mg/20.3ml Solution Ud) 650 mg PO Q6 PRN PRN Reason: pain+fever Last Admin: 10/27/18 05:00 Dose: 650 mg Aspirin (Aspirin Chewable) 81 mg PO DAILY [facility] Last Admin: 10/26/18 13:48 Dose: 81 mg Epoetin Dedrick (Procrit) 10,000 unit IV MWF [facility] Last Admin: 10/26/18 10:50 Dose: 10,000 unit Heparin Sodium (Porcine) (Heparin) 5,000 units SC Q12 [facility] Last Admin: 10/26/18 21:57 Dose: 5,000 units Hydrocortisone (Cortef) 10 mg PO DAILY [facility] Last Admin: 10/26/18 13:48 Dose: 10 mg Vancomycin HCl 1 gm/ Sodium (Chloride) 250 mls @ 166.7 mls/hr IVPB MWF [facility]; Protocol Last Admin: 10/26/18 13:47 Dose: 166.7 mls/hr Levetiracetam 750 mg/ Sodium (Chloride) 107.5 mls @ 420 mls/hr IVPB Q12H [facility] Last Admin: 10/26/18 22:00 Dose: 420 mls/hr Insulin Aspart (Novolog) 0 unit SC Q6H [facility]; Protocol Last Admin: 10/27/18 06:00 Dose: 4 units Insulin Detemir (Levemir) 30 unit SC Q12 [facility] Last Admin: 10/26/18 21:55 Dose: 30 u Levothyroxine Sodium (Synthroid) 50 mcg PO 0600 [facility] Last Admin: 10/27/18 06:28 Dose: 50 mcg Metoprolol Tartrate (Lopressor) 12.5 mg NG BID [facility] Last Admin: 10/26/18 17:57 Dose: Not Given Midodrine (Proamatine) 2.5 mg PO TID [facility] Last Admin: 10/26/18 17:25 Dose: Not Given Mupirocin (Bactroban 2% Nasal) 0.25 gm HILLARY BID [facility] Last Admin: 10/26/18 18:20 Dose: 0.25 gm Pantoprazole Sodium (Protonix Susp) 40 mg PO 0600 [facility] Last Admin: 10/27/18 06:27 Dose: 40 mg Rosuvastatin Calcium (Crestor) 10 mg PO HS [facility] Last Admin: 10/26/18 21:57 Dose: 10 mg - Labs Labs: 10/27/18 06:16 10/27/18 06:16 PT 14.1 SECONDS (9.7-12.2) H 10/19/18 06:21 INR 1.3 10/19/18 06:21 APTT 38 SECONDS (21-34) H 10/19/18 06:21 - Constitutional Appears: No Acute Distress, Chronically Ill - Head Exam Head Exam: ATRAUMATIC, NORMAL INSPECTION - Eye Exam Eye Exam: EOMI, Normal appearance - Neck Exam Neck Exam: Normal Inspection. absent: Tenderness - Respiratory Exam Respiratory Exam: Clear to Ausculation Bilateral, NORMAL BREATHING PATTERN - Cardiovascular Exam Cardiovascular Exam: REGULAR RHYTHM, +S1 - GI/Abdominal Exam GI & Abdominal Exam: Soft, Tenderness - Extremities Exam Extremities Exam: Normal Inspection. absent: Tenderness - Neurological Exam Neurological Exam: Altered - Skin Skin Exam: Dry, Warm Assessment and Plan (1) ESRD (end stage renal disease) Status: Acute (2) Diabetic nephropathy associated with type 2 diabetes mellitus Status: Acute (3) CAD (coronary artery disease) Status: Acute (4) HTN (hypertension) Status: Acute - Assessment and Plan (Free Text) Plan: Same dialysis MWF PEG feeds Monitor fevers If BP stable would stop midodrine soon
[2018-10-27] MEDS: Insulin Detemir 100 units/ml Vial (Levemir) SC SCH ×2 (10:18→21:17)
[2018-10-27] MEDS: Mupirocin 2% Ointment (NASAL) NAS SCH ×2 (10:18→18:05)
--- NOTE | 2018-10-27 18:34 | CP.PCM.PN ---
Subjective - Date & Time of Evaluation Date of Evaluation: 10/27/18 Time of Evaluation: 16:00 - Subjective Subjective: DICTATED Objective - Vital Signs/Intake and Output Vital Signs (last 24 hours): Temp Pulse Resp BP Pulse Ox 98 F 83 15 163/66 H 99 10/27/18 16:00 10/27/18 17:00 10/27/18 17:00 10/27/18 16:11 10/27/18 15:00 Intake and Output: 10/27/18 10/27/18 06:59 18:59 Intake Total 360 580 Output Total 50 Balance 360 530 - Medications Medications: Current Medications Acetaminophen (Tylenol 650mg/20.3ml Solution Ud) 650 mg PO Q6 PRN PRN Reason: pain+fever Last Admin: 10/27/18 05:00 Dose: 650 mg Aspirin (Aspirin Chewable) 81 mg PO DAILY [facility] Last Admin: 10/27/18 10:17 Dose: 81 mg Epoetin Dedrick (Procrit) 10,000 unit IV F [facility] Last Admin: 10/26/18 10:50 Dose: 10,000 unit Heparin Sodium (Porcine) (Heparin) 5,000 units SC Q12 [facility] Last Admin: 10/27/18 10:17 Dose: 5,000 units Hydrocortisone (Cortef) 10 mg PO DAILY [facility] Last Admin: 10/27/18 10:18 Dose: 10 mg Vancomycin HCl 1 gm/ Sodium (Chloride) 250 mls @ 166.7 mls/hr IVPB MWF [facility]; Protocol Last Admin: 10/26/18 13:47 Dose: 166.7 mls/hr Levetiracetam 750 mg/ Sodium (Chloride) 107.5 mls @ 420 mls/hr IVPB Q12H [facility] Last Admin: 10/27/18 10:19 Dose: 420 mls/hr Insulin Aspart (Novolog) 0 unit SC Q6H [facility]; Protocol Last Admin: 10/27/18 18:06 Dose: 8 units Insulin Detemir (Levemir) 30 unit SC Q12 [facility] Last Admin: 10/27/18 10:18 Dose: 30 u Levothyroxine Sodium (Synthroid) 50 mcg PO 0600 [facility] Last Admin: 10/27/18 06:28 Dose: 50 mcg Metoprolol Tartrate (Lopressor) 12.5 mg NG BID [facility] Last Admin: 10/27/18 18:06 Dose: 12.5 mg Midodrine (Proamatine) 2.5 mg PO TID [facility] Last Admin: 10/27/18 18:00 Dose: Not Given Mupirocin (Bactroban 2% Nasal) 0.25 gm HILLARY BID [facility] Last Admin: 10/27/18 18:05 Dose: 0.25 gm Pantoprazole Sodium (Protonix Susp) 40 mg PO 0600 [facility] Last Admin: 10/27/18 06:27 Dose: 40 mg Rosuvastatin Calcium (Crestor) 10 mg PO HS [facility] Last Admin: 10/26/18 21:57 Dose: 10 mg - Labs Labs: 10/27/18 06:16 10/27/18 06:16 PT 14.1 SECONDS (9.7-12.2) H 10/19/18 06:21 INR 1.3 10/19/18 06:21 APTT 38 SECONDS (21-34) H 10/19/18 06:21
--- NOTE | 2018-10-27 19:22 | CP.PCM.PN ---
Subjective - Date & Time of Evaluation Date of Evaluation: 10/27/18 Time of Evaluation: 14:10 - Subjective Subjective: Patient seen and evaluated No new events noted Physical Examination - Head Exam Head Exam: ATRAUMATIC, NORMAL INSPECTION - Eye Exam Eye Exam: EOMI, Normal appearance, PERRL. absent: Periorbital tenderness Pupil Exam: NORMAL ACCOMODATION - ENT Exam ENT Exam: Mucous Membranes Moist, Normal Oropharynx - Respiratory Exam Respiratory Exam: Clear to Ausculation Bilateral. absent: Prolonged Expiratory Phase, Respiratory Distress - Cardiovascular Exam Cardiovascular Exam: REGULAR RHYTHM, +S1, +S2. absent: Rubs - GI/Abdominal Exam GI & Abdominal Exam: Soft, Normal Bowel Sounds. absent: Hyperactive Bowel Sounds - Extremities Exam Extremities Exam: absent: Pedal Edema - Back Exam Back Exam: NORMAL INSPECTION. absent: CVA tenderness (R), paraspinal tenderness - Neurological Exam Neurological Exam: Altered - Psychiatric Exam Psychiatric exam: Agitated, Normal Affect, Normal Mood - Skin Skin Exam: Dry Assessment and Plan - Assessment and Plan (Free Text) Assessment: 72 year old female with past medical history of CAD, CHF, HTN, HLD, pituitary adenoma, is being seen s/p respiratory arrest during AV fistula placement surgery. s/p permacath on 10-11-18; possible AMS due to anoxic brain injury, now on HD MWF, tracheostomy done on 10/18/17, planning for PEG placement by GI today. Plan: Respiratory failure - Currently intubated and sedated. Management per primary care team - Completed hypothermic protocol -Bedside PEG placement completed today. Medications: Levetiracetam 420mls/hrIVPB Q12H MIR MRSA in trach -Continue Cefepime 1gm ivpb daily -Continue Vancomycin 1gm ivpb mwf Anoxic brain injury -Pending repeat MRI at [place]. Patient remains agigtated and unable to go for imaging at this time. HTN -Lopressor 12.5mg NG BID MIR HLD -Continue Rosuvastatin 10mg PO HS MIR CAD -Continue Aspirin 81mg PO Daily MIR DM -Levemir 30UNIT sc q12 mir Hypothyroidism -Continue Synthroid 50mcg PO 0600 MIR CKD on HD - S/p right permacath placed on 10/11 -Procrit 10,000 unit IV MWF ppx -Protonix -Heparin Objective - Vital Signs/Intake and Output Vital Signs (last 24 hours): Temp Pulse Resp BP Pulse Ox 98 F 76 14 166/74 H 98 10/27/18 16:00 10/27/18 18:49 10/27/18 18:49 10/27/18 18:49 10/27/18 18:49 Intake and Output: 10/27/18 10/28/18 18:59 06:59 Intake Total 580 Output Total 50 Balance 530 - Medications Medications: Current Medications Acetaminophen (Tylenol 650mg/20.3ml Solution Ud) 650 mg PO Q6 PRN PRN Reason: pain+fever Last Admin: 10/27/18 05:00 Dose: 650 mg Aspirin (Aspirin Chewable) 81 mg PO DAILY [facility] Last Admin: 10/27/18 10:17 Dose: 81 mg Epoetin Dedrick (Procrit) 10,000 [place] [facility] [place] Admin: 10/26/18 10:50 Dose: 10,000 unit Heparin Sodium (Porcine) (Heparin) 5,000 units SC Q12 [facility] Last Admin: 10/27/18 10:17 Dose: 5,000 units Hydrocortisone (Cortef) 10 mg PO DAILY [facility] Last Admin: 10/27/18 10:18 Dose: 10 mg Vancomycin HCl 1 gm/ Sodium (Chloride) 250 mls @ 166.7 mls/hr IVPB MWF [facility]; Protocol Last Admin: 10/26/18 13:47 Dose: 166.7 mls/hr Levetiracetam 750 mg/ Sodium (Chloride) 107.5 mls @ 420 mls/hr IVPB Q12H [facility] Last Admin: 10/27/18 10:19 Dose: 420 mls/hr Insulin Aspart (Novolog) 0 unit SC Q6H [facility]; Protocol Last Admin: 10/27/18 18:06 Dose: 8 units Insulin Detemir (Levemir) 30 unit SC Q12 [facility] Last Admin: 10/27/18 10:18 Dose: 30 u Levothyroxine Sodium (Synthroid) 50 mcg PO 0600 [facility] Last Admin: 10/27/18 06:28 Dose: 50 mcg Metoprolol Tartrate (Lopressor) 12.5 mg NG BID [facility] Last Admin: 10/27/18 18:06 Dose: 12.5 mg Midodrine (Proamatine) 2.5 mg PO TID [facility] Last Admin: 10/27/18 18:00 Dose: Not Given Mupirocin (Bactroban 2% Nasal) 0.25 gm HILLARY BID [facility] Last Admin: 10/27/18 18:05 Dose: 0.25 gm Pantoprazole Sodium (Protonix Susp) 40 mg PO 0600 [facility] Last Admin: 10/27/18 06:27 Dose: 40 mg Rosuvastatin Calcium (Crestor) 10 mg PO HS [facility] Last Admin: 10/26/18 21:57 Dose: 10 mg - Labs Labs: 10/27/18 06:16 10/27/18 06:16 PT 14.1 SECONDS (9.7-12.2) H 10/19/18 06:21 INR 1.3 10/19/18 06:21 APTT 38 SECONDS (21-34) H 10/19/18 06:21
--- NOTE | 2018-10-27 21:00 | PN ---
DATE: 10/27/2018 INFECTIOUS DISEASE FOLLOWUP SUBJECTIVE: The patient was seen today. She remains unresponsive on a trach vent and has all these movements of her arms mostly of the upper arms which she has involuntary movements of, and the patient remains comatose. She is a dialysis patient. She still has the PICC line and midline catheter for dialysis. PHYSICAL EXAMINATION: VITAL SIGNS: T-max is 98, pulse 79, saturation 100%, blood pressure is stable. HEENT: Head is atraumatic. NECK: Supple. LUNGS: Clear. No crackles or rales present. HEART: S1, S2. Regular. ABDOMEN: Soft, nontender. No guarding. No rigidity present. EXTREMITIES: No edema. LABORATORY DATA: White count is 9.3, hemoglobin 10.6. Her creatinine is 5.1, BUN is 23. Sugars are monitored. Her recent cultures are all now negative except for a wound culture which was coagulase-negative staph which is probably unclear whether it was real or just skin contaminant as cultures have been negative. ASSESSMENT: She has anoxic encephalopathy, respiratory failure, end-stage renal disease, methicillin-resistant staphylococcus aureus in the sputum before which she has cleared now, and she is on dialysis. PLAN: So at this time, the patient has been on vancomycin. We will continue over the week and then discontinue it. Hopefully, she can go to rehab or out of the ICU. Sara Barrios MD
[2018-10-28] MEDS: Levothyroxine 50 MCG TAB PO SCH (06:15)
[2018-10-28] MEDS: Pantoprazole 40 mg Susp UD PO SCH (06:15)
[2018-10-28] MEDS: (Novolog) Insulin Aspart, Recombinant 100 u/ml 10 ml vial SC SCH ×3 (06:18→18:45)
[2018-10-28 06:26] LABS: BASO % 0.4 % (0.0-2.0); EOS # 0.9 K/uL (0.0-0.7); EOS % 10.4 % (0.0-4.0); HEMOGLOBIN 10.7 g/dL (11.0-16.0); LYMPH # 2.1 K/uL (1.0-4.3); LYMPH % 24.9 % (20.0-40.0); MEAN CORPUSCULAR HEMOGLOBIN 27.8 pg (27.0-31.0); MEAN CORPUSCULAR HGB CONC 30.6 g/dL (33.0-37.0); MEAN PLATELET VOLUME 9.3 fL (7.2-11.7); MONO # 1.3 K/uL (0.0-0.8); MONO % 15.7 % (0.0-10.0); NEUT # 4.1 K/uL (1.8-7.0); NEUT % 48.6 % (50.0-75.0); NRBC % 0.2 % (0.0-2.0); RBC 3.84 Mil/uL (3.80-5.20); RED CELL DISTRIBUTION WIDTH 19.2 % (11.5-14.5); WHITE BLOOD COUNT 8.5 K/uL (4.8-10.8)
[2018-10-28 06:44] LABS: ALBUMIN 3.7 g/dL (3.5-5.0); CALCIUM 8.7 mg/dl (8.6-10.4)
[2018-10-28] MEDS: Mupirocin 2% Ointment (NASAL) NAS SCH (10:27)
[2018-10-28] MEDS: Insulin Detemir 100 units/ml Vial (Levemir) SC SCH ×2 (10:28→22:21)
--- NOTE | 2018-10-28 10:57 | CP.PCM.PN ---
Subjective - Date & Time of Evaluation Date of Evaluation: 10/27/18 Time of Evaluation: 10:57 - Subjective Subjective: Patient having episodes of restlessness. Again fever had this morning. Sometimes opening the eyes. But there is no purposeful activities noted. Vital signs stable. Chest good air entry Regular heart sounds noted Spoke to the patient's family We will continue the current supportive treatment. Out of bed to chair CPAP trial and will follow the patient Objective - Vital Signs/Intake and Output Vital Signs (last 24 hours): Temp Pulse Resp BP Pulse Ox 98.9 F 84 13 131/57 L 97 10/28/18 04:00 10/28/18 06:00 10/28/18 06:00 10/28/18 04:11 10/28/18 06:00 Intake and Output: 10/28/18 10/28/18 06:59 18:59 Intake Total 260 460 Output Total 180 Balance 260 280 - Medications Medications: Current Medications Acetaminophen (Tylenol 650mg/20.3ml Solution Ud) 650 mg PO Q6 PRN PRN Reason: pain+fever Last Admin: 10/27/18 05:00 Dose: 650 mg Aspirin (Aspirin Chewable) 81 mg PO DAILY [facility] Last Admin: 10/28/18 10:27 Dose: 81 mg Epoetin Dedrick (Procrit) [place] [facility] [place] Admin: 10/26/18 10:50 Dose: 10,000 unit Heparin Sodium (Porcine) (Heparin) 5,000 units SC Q12 [facility] Last Admin: 10/28/18 10:27 Dose: 5,000 units Hydrocortisone (Cortef) 10 mg PO DAILY [facility] Last Admin: 10/28/18 10:28 Dose: 10 mg Vancomycin HCl 1 gm/ Sodium (Chloride) 250 mls @ 166.7 mls/hr IVPB F [facility]; Protocol Last Admin: 10/26/18 13:47 Dose: 166.7 mls/hr Insulin Aspart (Novolog) 0 unit SC Q6H [facility]; Protocol Last Admin: 10/28/18 06:18 Dose: 4 units Insulin Detemir (Levemir) 30 unit SC Q12 [facility] Last Admin: 10/28/18 10:28 Dose: 30 u Levetiracetam (Keppra) 750 mg PO BID [facility] Levothyroxine Sodium (Synthroid) 50 mcg PO 0600 [facility] Last Admin: 10/28/18 06:15 Dose: 50 mcg Metoprolol Tartrate (Lopressor) 12.5 mg NG BID [facility] Last Admin: 10/28/18 10:27 Dose: 12.5 mg Midodrine (Proamatine) 2.5 mg PO TID [facility] Last Admin: 10/28/18 10:27 Dose: 2.5 mg Mupirocin (Bactroban 2% Nasal) 0.25 gm HILLARY BID [facility] Last Admin: 10/28/18 10:27 Dose: 0.25 gm Pantoprazole Sodium (Protonix Susp) 40 mg PO 0600 [facility] Last Admin: 10/28/18 06:15 Dose: 40 mg Rosuvastatin Calcium (Crestor) 10 mg PO HS [facility] Last Admin: 10/27/18 21:13 Dose: 10 mg - Labs Labs: 10/28/18 06:23 10/28/18 06:23 PT 14.1 SECONDS (9.7-12.2) H 10/19/18 06:21 INR 1.3 10/19/18 06:21 APTT 38 SECONDS (21-34) H 10/19/18 06:21 Assessment and Plan (1) Acute on chronic renal failure Status: Acute (2) Diabetic nephropathy associated with type 2 diabetes mellitus Status: Acute (3) Uremia, acute Status: Acute
--- NOTE | 2018-10-28 11:03 | CP.PCM.PN ---
Subjective - Date & Time of Evaluation Date of Evaluation: 10/28/18 Time of Evaluation: 11:01 - Subjective Subjective: This morning patient had a fever. Less agitated than before. Blood pressure is slightly better Patient will be getting hemodialysis tomorrow Secretions from the endotracheal tube is very minimal Attempting to do a CPAP trial today Vital signs stable otherwise. Low-grade fever. Chest good air entry Regular heart sounds noted. Edema in the legs less. Patient has right upper extremity stiffness present Labs reviewed So far the cultures are negative. Right arm midline removed Assessment and recommendation: 72-year-old female with a history of diabetes hypertension hypercholesterolemia heart disease a stent end-stage renal disease on dialysis admitted initially for uremia. Developed a cardiac arrest. Suspected hypoxic changes in the brain Continue the supportive treatment. C-peptide. Septic workup. We will follow the patient Objective - Vital Signs/Intake and Output Vital Signs (last 24 hours): Temp Pulse Resp BP Pulse Ox 98.9 F 84 13 131/57 L 97 10/28/18 04:00 10/28/18 06:00 10/28/18 06:00 10/28/18 04:11 10/28/18 06:00 Intake and Output: 10/28/18 10/28/18 06:59 18:59 Intake Total 260 460 Output Total 180 Balance 260 280 - Medications Medications: Current Medications Acetaminophen (Tylenol 650mg/20.3ml Solution Ud) 650 mg PO Q6 PRN PRN Reason: pain+fever Last Admin: 10/27/18 05:00 Dose: 650 mg Aspirin (Aspirin Chewable) 81 mg PO DAILY [facility] Last Admin: 10/28/18 10:27 Dose: 81 mg Epoetin Dedrick (Procrit) 10,000 [place] [facility] [place] Admin: 10/26/18 10:50 Dose: 10,000 unit Glipizide (Glucotrol) 10 mg PO Q12 [facility] Heparin Sodium (Porcine) (Heparin) 5,000 units SC Q12 [facility] Last Admin: 10/28/18 10:27 Dose: 5,000 units Hydrocortisone (Cortef) 10 mg PO DAILY [facility] Last Admin: 10/28/18 10:28 Dose: 10 mg Vancomycin HCl 1 gm/ Sodium (Chloride) 250 mls @ 166.7 mls/hr [place] [facility] [place] Protocol Last Admin: 10/26/18 13:47 Dose: 166.7 mls/hr Insulin Aspart (Novolog) 0 unit SC Q6H [facility]; Protocol Last Admin: 10/28/18 06:18 Dose: 4 units Insulin Detemir (Levemir) 40 unit SC [facility] Levetiracetam (Keppra) 750 mg PO BID [facility] Levothyroxine Sodium (Synthroid) 50 mcg PO 0600 [facility] Last Admin: 10/28/18 06:15 Dose: 50 mcg Metoprolol Tartrate (Lopressor) 12.5 mg NG BID [facility] Last Admin: 10/28/18 10:27 Dose: 12.5 mg Midodrine (Proamatine) 2.5 mg PO TID [facility] Last Admin: 10/28/18 10:27 Dose: 2.5 mg Mupirocin (Bactroban 2% Nasal) 0.25 gm HILLARY BID [facility] Last Admin: 10/28/18 10:27 Dose: 0.25 gm Pantoprazole Sodium (Protonix Susp) 40 mg PO 0600 [facility] Last Admin: 10/28/18 06:15 Dose: 40 mg Rosuvastatin Calcium (Crestor) 10 mg PO HS [facility] Last Admin: 10/27/18 21:13 Dose: 10 mg Sitagliptin Phosphate (Januvia) 25 mg PO DAILY [facility] - Labs Labs: 10/28/18 06:23 10/28/18 06:23 PT 14.1 SECONDS (9.7-12.2) H 10/19/18 06:21 INR 1.3 10/19/18 06:21 APTT 38 SECONDS (21-34) H 10/19/18 06:21 Assessment and Plan (1) Acute on chronic renal failure Status: Acute (2) Diabetic nephropathy associated with type 2 diabetes mellitus Status: Acute (3) Uremia, acute Status: Acute
--- NOTE | 2018-10-28 11:08 | CP.PCM.PN ---
Subjective - Date & Time of Evaluation Date of Evaluation: 10/20/18 Time of Evaluation: 11:08 - Subjective Subjective: Patient received a PEG tube. Clinically same. Patient is not responding. Significant agitation in the moment noted. Seen by neurologist. MRI scheduled. We will continue the current treatment. Hemodialysis today. And will follow up the patient Objective - Vital Signs/Intake and Output Vital Signs (last 24 hours): Temp Pulse Resp BP Pulse Ox 98.9 F 84 13 131/57 L 97 10/28/18 04:00 10/28/18 06:00 10/28/18 06:00 10/28/18 04:11 10/28/18 06:00 Intake and Output: 10/28/18 10/28/18 06:59 18:59 Intake Total 260 460 Output Total 180 Balance 260 280 - Medications Medications: Current Medications Acetaminophen (Tylenol 650mg/20.3ml Solution Ud) 650 mg PO Q6 PRN PRN Reason: pain+fever Last Admin: 10/27/18 05:00 Dose: 650 mg Aspirin (Aspirin Chewable) 81 mg PO DAILY [facility] Last Admin: 10/28/18 10:27 Dose: 81 mg Epoetin Dedrick (Procrit) 10,000 unit IV [facility] [place] Last Admin: 10/26/18 10:50 Dose: 10,000 unit Glipizide (Glucotrol) 10 mg PO Q12 [facility] Heparin Sodium (Porcine) (Heparin) 5,000 units SC Q12 [facility] Last Admin: 10/28/18 10:27 Dose: 5,000 units Hydrocortisone (Cortef) 10 mg PO DAILY [facility] Last Admin: 10/28/18 10:28 Dose: 10 mg Vancomycin HCl 1 gm/ Sodium (Chloride) 250 mls @ 166.7 mls/hr IVPB [facility] [place]; Protocol Last Admin: 10/26/18 13:47 Dose: 166.7 mls/hr Insulin Aspart (Novolog) 0 unit SC Q6H [facility]; Protocol Last Admin: 10/28/18 06:18 Dose: 4 units Insulin Detemir (Levemir) 40 unit SC HS [facility] Levetiracetam (Keppra) 750 mg PO BID [facility] Levothyroxine Sodium (Synthroid) 50 mcg PO 0600 [facility] Last Admin: 10/28/18 06:15 Dose: 50 mcg Metoprolol Tartrate (Lopressor) 12.5 mg NG BID [facility] Last Admin: 10/28/18 10:27 Dose: 12.5 mg Midodrine (Proamatine) 2.5 mg PO TID [facility] Last Admin: 10/28/18 10:27 Dose: 2.5 mg Modafinil (Provigil) 50 mg PO DAILY [facility] Mupirocin (Bactroban 2% Nasal) 0.25 gm HILLARY BID [facility] Last Admin: 10/28/18 10:27 Dose: 0.25 gm Pantoprazole Sodium (Protonix Susp) 40 mg PO 0600 [facility] Last Admin: 10/28/18 06:15 Dose: 40 mg Rosuvastatin Calcium (Crestor) 10 mg PO HS [facility] Last Admin: 10/27/18 21:13 Dose: 10 mg Sitagliptin Phosphate (Januvia) 25 mg PO DAILY [facility] - Labs Labs: 10/28/18 06:23 10/28/18 06:23 PT 14.1 SECONDS (9.7-12.2) H 10/19/18 06:21 INR 1.3 10/19/18 06:21 APTT 38 SECONDS (21-34) H 10/19/18 06:21 Assessment and Plan (1) Acute on chronic renal failure Status: Acute (2) Diabetic nephropathy associated with type 2 diabetes mellitus Status: Acute (3) Uremia, acute Status: Acute
--- NOTE | 2018-10-28 11:08 | CP.PCM.PN ---
Subjective - Date & Time of Evaluation Date of Evaluation: 10/21/18 Time of Evaluation: 11:08 - Subjective Subjective: Patient supposed to have a PEG tube, but scheduled next week. Overall patient condition is remains no new changes. Agitated. I spoke to the family in detail. Neurological follow-up recommended and will follow the patient Objective - Vital Signs/Intake and Output Vital Signs (last 24 hours): Temp Pulse Resp BP Pulse Ox 98.9 F 84 13 131/57 L 97 10/28/18 04:00 10/28/18 06:00 10/28/18 06:00 10/28/18 04:11 10/28/18 06:00 Intake and Output: 10/28/18 10/28/18 06:59 18:59 Intake Total 260 460 Output Total 180 Balance 260 280 - Medications Medications: Current Medications Acetaminophen (Tylenol 650mg/20.3ml Solution Ud) 650 mg PO Q6 PRN PRN Reason: pain+fever Last Admin: 10/27/18 05:00 Dose: 650 mg Aspirin (Aspirin Chewable) 81 mg PO DAILY [facility] Last Admin: 10/28/18 10:27 Dose: 81 mg Epoetin Dedrick (Procrit) 10,000 unit IV [facility] Last Admin: 10/26/18 10:50 Dose: 10,000 unit Glipizide (Glucotrol) 10 mg PO Q12 [facility] Heparin Sodium (Porcine) (Heparin) 5,000 units SC Q12 [facility] Last Admin: 10/28/18 10:27 Dose: 5,000 units Hydrocortisone (Cortef) 10 mg PO DAILY [facility] Last Admin: 10/28/18 10:28 Dose: 10 mg Vancomycin HCl 1 gm/ Sodium (Chloride) 250 mls @ 166.7 mls/hr IVPB F [facility]; Protocol Last Admin: 10/26/18 13:47 Dose: 166.7 mls/hr Insulin Aspart (Novolog) 0 unit SC Q6H [facility]; Protocol Last Admin: 10/28/18 06:18 Dose: 4 units Insulin Detemir (Levemir) 40 unit SC HS [facility] Levetiracetam (Keppra) 750 mg PO BID [facility] Levothyroxine Sodium (Synthroid) 50 mcg PO 0600 [facility] Last Admin: 10/28/18 06:15 Dose: 50 mcg Metoprolol Tartrate (Lopressor) 12.5 mg NG BID [facility] Last Admin: 10/28/18 10:27 Dose: 12.5 mg Midodrine (Proamatine) 2.5 mg PO TID [facility] Last Admin: 10/28/18 10:27 Dose: 2.5 mg Modafinil (Provigil) 50 mg PO DAILY [facility] Mupirocin (Bactroban 2% Nasal) 0.25 gm HILLARY BID [facility] Last Admin: 10/28/18 10:27 Dose: 0.25 gm Pantoprazole Sodium (Protonix Susp) 40 mg PO 0600 [facility] Last Admin: 10/28/18 06:15 Dose: 40 mg Rosuvastatin Calcium (Crestor) 10 mg PO HS [facility] Last Admin: 10/27/18 21:13 Dose: 10 mg Sitagliptin Phosphate (Januvia) 25 mg PO DAILY [facility] - Labs Labs: 10/28/18 06:23 10/28/18 06:23 PT 14.1 SECONDS (9.7-12.2) H 10/19/18 06:21 INR 1.3 10/19/18 06:21 APTT 38 SECONDS (21-34) H 10/19/18 06:21 Assessment and Plan (1) Acute on chronic renal failure Status: Acute (2) Diabetic nephropathy associated with type 2 diabetes mellitus Status: Acute (3) Uremia, acute Status: Acute
--- NOTE | 2018-10-28 11:08 | CP.PCM.PN ---
Subjective - Date & Time of Evaluation Date of Evaluation: 10/22/18 Time of Evaluation: 11:08 - Subjective Subjective: On antibiotic. Cultures are pending. Repeat labs reviewed Will hold off the antihypertensives for now. For PEG tube on Monday. Objective - Vital Signs/Intake and Output Vital Signs (last 24 hours): Temp Pulse Resp BP Pulse Ox 98.9 F 84 13 131/57 L 97 10/28/18 04:00 10/28/18 06:00 10/28/18 06:00 10/28/18 04:11 10/28/18 06:00 Intake and Output: 10/28/18 10/28/18 06:59 18:59 Intake Total 260 460 Output Total 180 Balance 260 280 - Medications Medications: Current Medications Acetaminophen (Tylenol 650mg/20.3ml Solution Ud) 650 mg PO Q6 PRN PRN Reason: pain+fever Last Admin: 10/27/18 05:00 Dose: 650 mg Aspirin (Aspirin Chewable) 81 mg PO DAILY [facility] Last Admin: 10/28/18 10:27 Dose: 81 mg Epoetin Dedrick (Procrit) 10,[address] [facility] [place] Last Admin: 10/26/18 10:50 Dose: 10,000 unit Glipizide (Glucotrol) 10 mg PO Q12 [facility] Heparin Sodium (Porcine) (Heparin) 5,000 units SC Q12 [facility] Last Admin: 10/28/18 10:27 Dose: 5,000 units Hydrocortisone (Cortef) 10 mg PO DAILY [facility] Last Admin: 10/28/18 10:28 Dose: 10 mg Vancomycin HCl 1 gm/ Sodium (Chloride) 250 mls @ [facility]; Protocol Last Admin: 10/26/18 13:47 Dose: 166.7 mls/hr Insulin Aspart (Novolog) 0 unit SC Q6H [facility]; Protocol Last Admin: 10/28/18 06:18 Dose: 4 units Insulin Detemir (Levemir) 40 unit SC [facility] Levetiracetam (Keppra) 750 mg PO BID [facility] Levothyroxine Sodium (Synthroid) 50 mcg PO 0600 [facility] Last Admin: 10/28/18 06:15 Dose: 50 mcg Metoprolol Tartrate (Lopressor) 12.5 mg NG BID [facility] Last Admin: 10/28/18 10:27 Dose: 12.5 mg Midodrine (Proamatine) 2.5 mg PO TID [facility] Last Admin: 10/28/18 10:27 Dose: 2.5 mg Modafinil (Provigil) 50 mg PO DAILY [facility] Mupirocin (Bactroban 2% Nasal) 0.25 gm HILLARY BID [facility] Last Admin: 10/28/18 10:27 Dose: 0.25 gm Pantoprazole Sodium (Protonix Susp) 40 mg PO 0600 [facility] Last Admin: 10/28/18 06:15 Dose: 40 mg Rosuvastatin Calcium (Crestor) 10 mg PO HS [facility] Last Admin: 10/27/18 21:13 Dose: 10 mg Sitagliptin Phosphate (Januvia) 25 mg PO DAILY [facility] - Labs Labs: 10/28/18 06:23 10/28/18 06:23 PT 14.1 SECONDS (9.7-12.2) H 10/19/18 06:21 INR 1.3 10/19/18 06:21 APTT 38 SECONDS (21-34) H 10/19/18 06:21 Assessment and Plan (1) Acute on chronic renal failure Status: Acute (2) Diabetic nephropathy associated with type 2 diabetes mellitus Status: Acute (3) Uremia, acute Status: Acute
--- NOTE | 2018-10-28 11:08 | CP.PCM.PN ---
Subjective - Date & Time of Evaluation Date of Evaluation: 10/19/18 Time of Evaluation: 11:07 - Subjective Subjective: Patient is scheduled PEG tube today. Likely otherwise no new changes noted. Patient had a fever. Vital signs stable otherwise. But episodes of low blood pressure noted over the weekend. Continue the current treatment. Prognosis is poor Objective - Vital Signs/Intake and Output Vital Signs (last 24 hours): Temp Pulse Resp BP Pulse Ox 98.9 F 84 13 131/57 L 97 10/28/18 04:00 10/28/18 06:00 10/28/18 06:00 10/28/18 04:11 10/28/18 06:00 Intake and Output: 10/28/18 10/28/18 06:59 18:59 Intake Total 260 460 Output Total 180 Balance 260 280 - Medications Medications: Current Medications Acetaminophen (Tylenol 650mg/20.3ml Solution Ud) 650 mg PO Q6 PRN PRN Reason: pain+fever Last Admin: 10/27/18 05:00 Dose: 650 mg Aspirin (Aspirin Chewable) 81 mg PO DAILY [facility] Last Admin: 10/28/18 10:27 Dose: 81 mg Epoetin Dedrick (Procrit) 10,000 unit IV [facility] [place] Last Admin: 10/26/18 10:50 Dose: 10,000 unit Glipizide (Glucotrol) 10 mg PO Q12 [facility] Heparin Sodium (Porcine) (Heparin) 5,000 units SC Q12 [facility] Last Admin: 10/28/18 10:27 Dose: 5,000 units Hydrocortisone (Cortef) 10 mg PO DAILY [facility] Last Admin: 10/28/18 10:28 Dose: 10 mg Vancomycin HCl 1 gm/ Sodium (Chloride) 250 mls @ 166.7 mls/hr IVPB F [facility]; Protocol Last Admin: 10/26/18 13:47 Dose: 166.7 mls/hr Insulin Aspart (Novolog) 0 unit SC Q6H [facility]; Protocol Last Admin: 10/28/18 06:18 Dose: 4 units Insulin Detemir (Levemir) 40 unit SC HS [facility] Levetiracetam (Keppra) 750 mg PO BID [facility] Levothyroxine Sodium (Synthroid) 50 mcg PO 0600 [facility] Last Admin: 10/28/18 06:15 Dose: 50 mcg Metoprolol Tartrate (Lopressor) 12.5 mg NG BID [facility] Last Admin: 10/28/18 10:27 Dose: 12.5 mg Midodrine (Proamatine) 2.5 mg PO TID [facility] Last Admin: 10/28/18 10:27 Dose: 2.5 mg Modafinil (Provigil) 50 mg PO DAILY [facility] Mupirocin (Bactroban 2% Nasal) 0.25 gm [place]ILLARY BID [facility] Last Admin: 10/28/18 10:27 Dose: 0.25 gm Pantoprazole Sodium (Protonix Susp) 40 mg PO 0600 [facility] Last Admin: 10/28/18 06:15 Dose: 40 mg Rosuvastatin Calcium (Crestor) 10 mg PO HS [facility] Last Admin: 10/27/18 21:13 Dose: 10 mg Sitagliptin Phosphate (Januvia) 25 mg PO DAILY [facility] - Labs Labs: 10/28/18 06:23 10/28/18 06:23 PT 14.1 SECONDS (9.7-12.2) H 10/19/18 06:21 INR 1.3 10/19/18 06:21 APTT 38 SECONDS (21-34) H 10/19/18 06:21 Assessment and Plan (1) Acute on chronic renal failure Status: Acute (2) Diabetic nephropathy associated with type 2 diabetes mellitus Status: Acute (3) Uremia, acute Status: Acute
--- NOTE | 2018-10-28 11:09 | CP.PCM.PN ---
Subjective - Date & Time of Evaluation Date of Evaluation: 10/23/18 Time of Evaluation: 11:08 - Subjective Subjective: Patient getting PEG tube today. Still sleepy. Received hemodialysis. Agitated at times. Patient will be getting MRI soon. We will continue the current treatment. We will follow the patient Objective - Vital Signs/Intake and Output Vital Signs (last 24 hours): Temp Pulse Resp BP Pulse Ox 98.9 F 84 13 131/57 L 97 10/28/18 04:00 10/28/18 06:00 10/28/18 06:00 10/28/18 04:11 10/28/18 06:00 Intake and Output: 10/28/18 10/28/18 06:59 18:59 Intake Total 260 460 Output Total 180 Balance 260 280 - Medications Medications: Current Medications Acetaminophen (Tylenol 650mg/20.3ml Solution Ud) 650 mg PO Q6 PRN PRN Reason: pain+fever Last Admin: 10/27/18 05:00 Dose: 650 mg Aspirin (Aspirin Chewable) 81 mg PO DAILY [facility] Last Admin: 10/28/18 10:27 Dose: 81 mg Epoetin Dedrick (Procrit) 10,000 unit IV [facility] [place] Last Admin: 10/26/18 10:50 Dose: 10,000 unit Glipizide (Glucotrol) 10 mg PO Q12 [facility] Heparin Sodium (Porcine) (Heparin) 5,000 units SC Q12 [facility] Last Admin: 10/28/18 10:27 Dose: 5,000 units Hydrocortisone (Cortef) 10 mg PO DAILY [facility] Last Admin: 10/28/18 10:28 Dose: 10 mg Vancomycin HCl 1 gm/ Sodium (Chloride) 250 mls @ 166.7 mls/hr IVPB [facility] [place]; Protocol Last Admin: 10/26/18 13:47 Dose: 166.7 mls/hr Insulin Aspart (Novolog) 0 unit SC Q6H [facility]; Protocol Last Admin: 10/28/18 06:18 Dose: 4 units Insulin Detemir (Levemir) 40 unit SC HS [facility] Levetiracetam (Keppra) 750 mg PO BID [facility] Levothyroxine Sodium (Synthroid) 50 mcg PO 0600 [facility] Last Admin: 10/28/18 06:15 Dose: 50 mcg Metoprolol Tartrate (Lopressor) 12.5 mg NG BID [facility] Last Admin: 10/28/18 10:27 Dose: 12.5 mg Midodrine (Proamatine) 2.5 mg PO TID [facility] Last Admin: 10/28/18 10:27 Dose: 2.5 mg Modafinil (Provigil) 50 mg PO DAILY [facility] Mupirocin (Bactroban 2% Nasal) 0.25 gm [place]ILLARY BID [facility] Last Admin: 10/28/18 10:27 Dose: 0.25 gm Pantoprazole Sodium (Protonix Susp) 40 mg PO 0600 [facility] Last Admin: 10/28/18 06:15 Dose: 40 mg Rosuvastatin Calcium (Crestor) 10 mg PO HS [facility] Last Admin: 10/27/18 21:13 Dose: 10 mg Sitagliptin Phosphate (Januvia) 25 mg PO DAILY [facility] - Labs Labs: 10/28/18 06:23 10/28/18 06:23 PT 14.1 SECONDS (9.7-12.2) H 10/19/18 06:21 INR 1.3 10/19/18 06:21 APTT 38 SECONDS (21-34) H 10/19/18 06:21 Assessment and Plan (1) Acute on chronic renal failure Status: Acute (2) Diabetic nephropathy associated with type 2 diabetes mellitus Status: Acute (3) Uremia, acute Status: Acute
[2018-10-28] MEDS ORDERED: levETIRAcetam 100 mg/ml (5ml) Oral Syringe PO SCH (18:00)
[2018-10-28] MEDS: levETIRAcetam 100 mg/ml (5ml) Oral Syringe PO SCH (18:25)
[2018-10-28] MEDS: Modafinil 50 MG TAB PO SCH (18:45)
--- NOTE | 2018-10-28 20:48 | PN ---
DATE: 10/28/2018 NEUROLOGICAL PROBLEM: Status post hypoxic nonconvulsive seizure. VITAL SIGNS: Blood pressure 156/70, mean arterial pressure 105, pulse rate 83. The patient is on trach and PEG. Good visual cue, however, verbally non-communicable. Moves all four extremities. Responds to pain symmetrically on both sides. The patient's condition being discussed with attending, Dr. Orlando. The patient is still verbally nonresponsive. The patient's dose of Keppra can be increased to 1000 twice a day, and I want to check her electroencephalogram to rule out any subclinical seizures. The patient's requested MRI of the brain is still pending. The patient will be followed while she is in the hospital. Blu Yost MD [facility]
--- NOTE | 2018-10-28 22:19 | CP.PCM.PN ---
Subjective - Date & Time of Evaluation Date of Evaluation: 10/28/18 Time of Evaluation: 19:10 - Subjective Subjective: dictated Objective - Vital Signs/Intake and Output Vital Signs (last 24 hours): Temp Pulse Resp BP Pulse Ox 98.7 F 79 16 143/65 98 10/28/18 20:00 10/28/18 22:00 10/28/18 22:00 10/28/18 22:00 10/28/18 22:00 Intake and Output: 10/28/18 10/29/18 18:59 06:59 Intake Total 780 Output Total 330 Balance 450 - Medications Medications: Current Medications Acetaminophen (Tylenol 650mg/20.3ml Solution Ud) 650 mg PO Q6 PRN PRN Reason: pain+fever Last Admin: 10/27/18 05:00 Dose: 650 mg Aspirin (Aspirin Chewable) 81 mg PO DAILY [facility] Last Admin: 10/28/18 10:27 Dose: 81 mg Epoetin Dedrick (Procrit) 10,000 unit IV [facility] [place] Last Admin: 10/26/18 10:50 Dose: 10,000 unit Glipizide (Glucotrol) 10 mg PO Q12 [facility] Heparin Sodium (Porcine) (Heparin) 5,000 units SC Q12 [facility] Last Admin: 10/28/18 22:18 Dose: 5,000 units Hydrocortisone (Cortef) 10 mg PO DAILY [facility] Last Admin: 10/28/18 10:28 Dose: 10 mg Vancomycin HCl 1 gm/ Sodium (Chloride) 250 mls @ 166.7 mls/hr IVPB [facility] [place]; Protocol Last Admin: 10/26/18 13:47 Dose: 166.7 mls/hr Insulin Aspart (Novolog) 0 unit SC Q6H [facility]; Protocol Last Admin: 10/28/18 18:45 Dose: 6 units Insulin Detemir (Levemir) 40 unit SC [facility] Levetiracetam (Keppra) 1,000 mg PO BID [facility] Last Admin: 10/28/18 18:25 Dose: 1,000 mg Levothyroxine Sodium (Synthroid) 50 mcg PO 0600 [facility] Last Admin: 10/28/18 06:15 Dose: 50 mcg Metoprolol Tartrate (Lopressor) 12.5 mg NG BID [facility] Last Admin: 10/28/18 18:45 Dose: 12.5 mg Midodrine (Proamatine) 2.5 mg PO TID [facility] Last Admin: 10/28/18 18:45 Dose: 2.5 mg Modafinil (Provigil) 50 mg PO DAILY [facility] Last Admin: 10/28/18 18:45 Dose: 50 mg Pantoprazole Sodium (Protonix Susp) 40 mg PO 0600 [facility] Last Admin: 10/28/18 06:15 Dose: 40 mg Rosuvastatin Calcium (Crestor) 10 mg PO HS [facility] Last Admin: 10/27/18 21:13 Dose: 10 mg Sitagliptin Phosphate (Januvia) 25 mg PO DAILY [facility] - Labs Labs: 10/28/18 06:23 10/28/18 06:23 PT 14.1 SECONDS (9.7-12.2) H 10/19/18 06:21 INR 1.3 10/19/18 06:21 APTT 38 SECONDS (21-34) H 10/19/18 06:21
--- NOTE | 2018-10-28 23:09 | CP.PCM.PN ---
Subjective - Date & Time of Evaluation Date of Evaluation: 10/28/18 Time of Evaluation: 16:20 - Subjective Subjective: Patient seen and evaluated Codition remains same No cardiac events noted On Ventilator Objective - Vital Signs/Intake and Output Vital Signs (last 24 hours): Temp Pulse Resp BP Pulse Ox 98.7 F 79 16 143/65 98 10/28/18 20:00 10/28/18 22:00 10/28/18 22:00 10/28/18 22:00 10/28/18 22:00 Intake and Output: 10/28/18 10/29/18 18:59 06:59 Intake Total 780 Output Total 330 Balance 450 - Medications Medications: Current Medications Acetaminophen (Tylenol 650mg/20.3ml Solution Ud) 650 mg PO Q6 PRN PRN Reason: pain+fever Last Admin: 10/27/18 05:00 Dose: 650 mg Aspirin (Aspirin Chewable) 81 mg PO DAILY [facility] Last Admin: 10/28/18 10:27 Dose: 81 mg Epoetin Dedrick (Procrit) [facility] Last Admin: 10/26/18 10:50 Dose: 10,000 unit Glipizide (Glucotrol) 10 mg PO Q12 [facility] Last Admin: 10/28/18 22:25 Dose: 10 mg Heparin Sodium (Porcine) (Heparin) 5,000 units SC Q12 [facility] Last Admin: 10/28/18 22:18 Dose: 5,000 units Hydrocortisone (Cortef) 10 mg PO DAILY [facility] Last Admin: 10/28/18 10:28 Dose: 10 mg Vancomycin HCl 1 gm/ Sodium (Chloride) 250 mls @ 166.7 mls/hr IVPB [facility]; Protocol Last Admin: 10/26/18 13:47 Dose: 166.7 mls/hr Insulin Aspart (Novolog) 0 unit SC Q6H [facility]; Protocol Last Admin: 10/28/18 18:45 Dose: 6 units Insulin Detemir (Levemir) 40 unit SC HS [facility] Last Admin: 10/28/18 22:21 Dose: 40 u Levetiracetam (Keppra) 1,000 mg PO BID [facility] Last Admin: 10/28/18 18:25 Dose: 1,000 mg Levothyroxine Sodium (Synthroid) 50 mcg PO 0600 [facility] Last Admin: 10/28/18 06:15 Dose: 50 mcg Metoprolol Tartrate (Lopressor) 12.5 mg NG BID [facility] Last Admin: 10/28/18 18:45 Dose: 12.5 mg Midodrine (Proamatine) 2.5 mg PO TID [facility] Last Admin: 10/28/18 18:45 Dose: 2.5 mg Modafinil (Provigil) 50 mg PO DAILY [facility] Last Admin: 10/28/18 18:45 Dose: 50 mg Pantoprazole Sodium (Protonix Susp) 40 mg PO 0600 [facility] Last Admin: 10/28/18 06:15 Dose: 40 mg Rosuvastatin Calcium (Crestor) 10 mg PO HS [facility] Last Admin: 10/28/18 22:23 Dose: 10 mg Sitagliptin Phosphate (Januvia) 25 mg PO DAILY [facility] - Labs Labs: 10/28/18 06:23 10/28/18 06:23 PT 14.1 SECONDS (9.7-12.2) H 10/19/18 06:21 INR 1.3 10/19/18 06:21 APTT 38 SECONDS (21-34) H 10/19/18 06:21
[2018-10-29] MEDS: (Novolog) Insulin Aspart, Recombinant 100 u/ml 10 ml vial SC SCH ×4 (00:13→17:48)
--- NOTE | 2018-10-29 03:37 | PN ---
DATE: 10/28/2018 SUBJECTIVE: Today when I went to see her, her whole family was there. The nurse told me she had a fever in the morning and they have removed the PICC line. At this time, she was less agitated, but she was throwing her hands and arms as before. Remains unconscious and was in a Ashtyn chair. PHYSICAL EXAMINATION: GENERAL: She remains unconscious and anoxic. VITAL SIGNS: Temp was 98.7, pulse 77 now, and blood pressure 139/63. LUNGS: Clear. HEART: S1, S2 regular. ABDOMEN: Soft, nontender. There is no sacral decubitus. She had diarrhea a few days ago. We checked for C. Diff on 10/21/2018 which was negative. EXTREMITIES: No edema. ASSESSMENT AND PLAN: She is still on vancomycin which I have planned to discontinue. She only thinks she has is the dialysis catheter now. If she continues to spike tomorrow, I would suggest to get blood cultures on dialysis. She does not make any urine. Her chest x-ray, I want to see the chest x-ray report. We have not done any recent chest x-ray, so we will order a chest x-ray for tomorrow morning. We will follow. Right now, we will not do blood cultures at this time, but do it tomorrow on dialysis if she continues to have fever. Sara Barrios MD
[2018-10-29] MEDS: Pantoprazole 40 mg Susp UD PO SCH (06:01)
[2018-10-29] MEDS: Levothyroxine 50 MCG TAB PO SCH (06:19)
[2018-10-29] MEDS: levETIRAcetam 100 mg/ml (5ml) Oral Syringe PO SCH ×2 (09:01→17:37)
[2018-10-29] MEDS: Modafinil 50 MG TAB PO SCH (09:03)
[2018-10-29] MEDS: Epoetin Alfa 10,000 unit/ml Dialysis IV SCH (10:35)
--- NOTE | 2018-10-29 10:52 | RAD ---
Chest x-ray single frontal view HISTORY: Congestive heart failure. Comparison 10/21/2018 Findings: Lines and tubes in stable position. Elevated right hemidiaphragm. Venous congestion. Right hilar prominence. Patchy increased markings at the left lung base. Cardiomegaly. Atherosclerotic calcification at the aortic knob. Few distended loops of small bowel in the mid abdomen. Degenerative changes in the spine and shoulders. Impression: Lines and tubes in stable position. Elevated right hemidiaphragm. Venous congestion. Right hilar prominence. Patchy increased markings at the left lung base. Cardiomegaly. Atherosclerotic calcification at the aortic knob. Few distended loops of small bowel in the mid abdomen. Degenerative changes in the spine and shoulders.
--- NOTE | 2018-10-29 11:23 | CP.PCM.PN ---
Subjective - Date & Time of Evaluation Date of Evaluation: 10/29/18 Time of Evaluation: 11:20 - Subjective Subjective: Seen on dialysis Cannot tolerate 1500ml UF; will decrease UF goal Lytes acceptable Remains with ttrach, PEG feeds Mental status remains poor- chronic dementia likely, encephalopathy precipitated by renal failure Objective - Vital Signs/Intake and Output Vital Signs (last 24 hours): Temp Pulse Resp BP Pulse Ox 99.5 F 89 23 136/67 97 10/29/18 08:55 10/29/18 08:55 10/29/18 08:55 10/29/18 11:10 10/29/18 08:55 Intake and Output: 10/29/18 10/29/18 06:59 18:59 Intake Total 200 225 Output Total 0 0 Balance 200 225 - Medications Medications: Current Medications Acetaminophen (Tylenol 650mg/20.3ml Solution Ud) 650 mg PO Q6 PRN PRN Reason: pain+fever Last Admin: 10/27/18 05:00 Dose: 650 mg Aspirin (Aspirin Chewable) 81 mg PO DAILY [facility] Last Admin: 10/29/18 09:01 Dose: 81 mg Epoetin Dedirck (Procrit) 10,000 unit IV MWF [facility] Last Admin: 10/29/18 10:35 Dose: 10,000 unit Glipizide (Glucotrol) 10 mg PO Q12 [facility] Last Admin: 10/29/18 09:01 Dose: 10 mg Heparin Sodium (Porcine) (Heparin) 5,000 units SC Q12 [facility] Last Admin: 10/29/18 09:00 Dose: 5,000 units Hydrocortisone (Cortef) 10 mg PO DAILY [facility] Last Admin: 10/29/18 09:01 Dose: 10 mg Vancomycin HCl 1 gm/ Sodium (Chloride) 250 mls @ 166.7 mls/hr IVPB MWF [facility]; Protocol Last Admin: 10/26/18 13:47 Dose: 166.7 mls/hr Insulin Aspart (Novolog) 0 unit SC Q6H [facility]; Protocol Last Admin: 10/29/18 06:05 Dose: 2 units Insulin Detemir (Levemir) 40 unit SC HS [facility] Last Admin: 10/28/18 22:21 Dose: 40 u Levetiracetam (Keppra) 1,000 mg PO BID [facility] Last Admin: 10/29/18 09:01 Dose: 1,000 mg Levothyroxine Sodium (Synthroid) 50 mcg PO 0600 [facility] Last Admin: 10/29/18 06:19 Dose: 50 mcg Metoprolol Tartrate (Lopressor) 12.5 mg NG BID [facility] Last Admin: 10/29/18 10:50 Dose: Not Given Midodrine (Proamatine) 2.5 mg PO TID [facility] Last Admin: 10/29/18 09:01 Dose: 2.5 mg Modafinil (Provigil) 50 mg PO DAILY [facility] Last Admin: 10/29/18 09:03 Dose: 50 mg Pantoprazole Sodium (Protonix Susp) 40 mg PO 0600 [facility] Last Admin: 10/29/18 06:01 Dose: 40 mg Rosuvastatin Calcium (Crestor) 10 mg PO HS [facility] Last Admin: 10/28/18 22:23 Dose: 10 mg Sitagliptin Phosphate (Januvia) 25 mg PO DAILY [facility] Last Admin: 10/29/18 09:01 Dose: 25 mg - Labs Labs: 10/28/18 06:23 10/28/18 06:23 PT 14.1 SECONDS (9.7-12.2) H 10/19/18 06:21 INR 1.3 10/19/18 06:21 APTT 38 SECONDS (21-34) H 10/19/18 06:21 - Constitutional Appears: No Acute Distress, Chronically Ill - Head Exam Head Exam: ATRAUMATIC, NORMAL INSPECTION - Neck Exam Neck Exam: Normal Inspection. absent: Tenderness - Respiratory Exam Respiratory Exam: Clear to Ausculation Bilateral, NORMAL BREATHING PATTERN - Cardiovascular Exam Cardiovascular Exam: REGULAR RHYTHM, +S1 - GI/Abdominal Exam GI & Abdominal Exam: Soft. absent: Tenderness - Extremities Exam Extremities Exam: Normal Inspection. absent: Tenderness - Neurological Exam Neurological Exam: Altered, Awake - Skin Skin Exam: Warm Assessment and Plan (1) ESRD (end stage renal disease) Status: Acute (2) Diabetic nephropathy associated with type 2 diabetes mellitus Status: Acute (3) CAD (coronary artery disease) Status: Acute (4) HTN (hypertension) Status: Acute - Assessment and Plan (Free Text) Plan: Decrease UF goal dialysis MWF PEG feeds Same meds
--- NOTE | 2018-10-29 11:50 | PN ---
DATE: 10/29/2018 NEUROLOGICAL PROBLEM: Hypoperfusion syndrome with seizures. PHYSICAL EXAMINATION: VITAL SIGNS: Blood pressure 143/65, mean arterial pressure of 91, respiratory rate 69, tracheostomy tube, pulse rate 98 with a temperature of 99.5 degrees Fahrenheit. The patient is comfortably lying down without any involuntary movements. Seems to be good visual cue, does not follow any commands. She moves all four extremities, responds appropriately to the painful stimuli. The patient's medication Keppra being increased to 1000 mg twice a day and requested electroencephalogram today. The patient's MRI of the brain being reviewed, showed right midbrain stroke which was read as normal as per the report. This result will be discussed with the radiologist. Continue present management. The patient will be followed closely with you. Blu Yost MD
--- NOTE | 2018-10-29 17:52 | CP.PCM.PN ---
Subjective - Date & Time of Evaluation Date of Evaluation: 10/29/18 Time of Evaluation: 17:51 - Subjective Subjective: pt had HD today still not responding discussed with neuro may need MRI will f/u spoke to family Objective - Vital Signs/Intake and Output Vital Signs (last 24 hours): Temp Pulse Resp BP Pulse Ox 98.9 F 100 H 21 113/86 100 10/29/18 12:25 10/29/18 12:25 10/29/18 12:25 10/29/18 12:25 10/29/18 12:25 Intake and Output: 10/29/18 10/29/18 06:59 18:59 Intake Total 200 225 Output Total 0 0 Balance 200 225 - Medications Medications: Current Medications Acetaminophen (Tylenol 650mg/20.3ml Solution Ud) 650 mg PO Q6 PRN PRN Reason: pain+fever Last Admin: 10/27/18 05:00 Dose: 650 mg Aspirin (Aspirin Chewable) 81 mg PO DAILY [facility] Last Admin: 10/29/18 09:01 Dose: 81 mg Epoetin Dedrick (Procrit) 10,000 unit IV MWF [facility] Last Admin: 10/29/18 10:35 Dose: 10,000 unit Glipizide (Glucotrol) 10 mg PO Q12 [facility] Last Admin: 10/29/18 09:01 Dose: 10 mg Heparin Sodium (Porcine) (Heparin) 5,000 units SC Q12 [facility] Last Admin: 10/29/18 09:00 Dose: 5,000 units Hydrocortisone (Cortef) 10 mg PO DAILY [facility] Last Admin: 10/29/18 09:01 Dose: 10 mg Vancomycin HCl 1 gm/ Sodium (Chloride) 250 mls @ 166.7 mls/hr IVPB [facility] [place]; Protocol Last Admin: 10/29/18 12:50 Dose: 166.7 mls/hr Insulin Aspart (Novolog) 0 unit SC Q6H [facility]; Protocol Last Admin: 10/29/18 17:48 Dose: 3 units Insulin Detemir (Levemir) 40 unit SC HS [facility] Last Admin: 10/28/18 22:21 Dose: 40 u Levetiracetam (Keppra) 1,000 mg PO BID [facility] Last Admin: 10/29/18 17:37 Dose: 1,000 mg Levothyroxine Sodium (Synthroid) 50 mcg PO 0600 [facility] Last Admin: 10/29/18 06:19 Dose: 50 mcg Metoprolol Tartrate (Lopressor) 12.5 mg NG BID [facility] Last Admin: 10/29/18 17:38 Dose: 12.5 mg Midodrine (Proamatine) 2.5 mg PO TID [facility] Last Admin: 10/29/18 17:38 Dose: 2.5 mg Modafinil (Provigil) 50 mg PO DAILY [facility] Last Admin: 10/29/18 09:03 Dose: 50 mg Pantoprazole Sodium (Protonix Susp) 40 mg PO 0600 [facility] Last Admin: 10/29/18 06:01 Dose: 40 mg Rosuvastatin Calcium (Crestor) 10 mg PO HS [facility] Last Admin: 10/28/18 22:23 Dose: 10 mg Sitagliptin Phosphate (Januvia) 25 mg PO DAILY [facility] Last Admin: 10/29/18 09:01 Dose: 25 mg - Labs Labs: 10/28/18 06:23 10/28/18 06:23 PT 14.1 SECONDS (9.7-12.2) H 10/19/18 06:21 INR 1.3 10/19/18 06:21 APTT 38 SECONDS (21-34) H 10/19/18 06:21 Assessment and Plan (1) Acute on chronic renal failure Status: Acute (2) Diabetic nephropathy associated with type 2 diabetes mellitus Status: Acute (3) Uremia, acute Status: Acute
[2018-10-29] MEDS: Acetaminophen 650mg/20.3ml solution UD PO PRN (20:25)
[2018-10-29] MEDS: Insulin Detemir 100 units/ml Vial (Levemir) SC SCH (21:01)
--- NOTE | 2018-10-29 21:15 | CP.PCM.PN ---
Subjective - Date & Time of Evaluation Date of Evaluation: 10/29/18 Time of Evaluation: 17:15 - Subjective Subjective: dictated Objective - Vital Signs/Intake and Output Vital Signs (last 24 hours): Temp Pulse Resp BP Pulse Ox 98.8 F 95 H 20 102/57 L 98 10/29/18 16:00 10/29/18 16:00 10/29/18 16:00 10/29/18 16:00 10/29/18 16:00 Intake and Output: 10/29/18 10/30/18 18:59 06:59 Intake Total 675 Output Total 0 Balance 675 - Medications Medications: Current Medications Acetaminophen (Tylenol 650mg/20.3ml Solution Ud) 650 mg PO Q6 PRN PRN Reason: pain+fever Last Admin: 10/29/18 20:25 Dose: 650 mg Aspirin (Aspirin Chewable) 81 mg PO DAILY [facility] Last Admin: 10/29/18 09:01 Dose: 81 mg Epoetin Dedrick (Procrit) 10,000 unit IV MWF [facility] Last Admin: 10/29/18 10:35 Dose: 10,000 unit Glipizide (Glucotrol) 10 mg PO Q12 [facility] Last Admin: 10/29/18 21:00 Dose: 10 mg Heparin Sodium (Porcine) (Heparin) 5,000 units SC Q12 [facility] Last Admin: 10/29/18 21:01 Dose: 5,000 units Hydrocortisone (Cortef) 10 mg PO DAILY [facility] Last Admin: 10/29/18 09:01 Dose: 10 mg Vancomycin HCl 1 gm/ Sodium (Chloride) 250 mls @ 166.7 mls/hr IVPB [facility] [place]; Protocol Last Admin: 10/29/18 12:50 Dose: 166.7 mls/hr Insulin Aspart (Novolog) 0 unit SC Q6H [facility]; Protocol Last Admin: 10/29/18 17:48 Dose: 3 units Insulin Detemir (Levemir) 40 unit SC HS [facility] Last Admin: 10/29/18 21:01 Dose: 40 u Levetiracetam (Keppra) 1,000 mg PO BID [facility] Last Admin: 10/29/18 17:37 Dose: 1,000 mg Levothyroxine Sodium (Synthroid) 50 mcg PO 0600 [facility] Last Admin: 10/29/18 06:19 Dose: 50 mcg Metoprolol Tartrate (Lopressor) 12.5 mg NG BID [facility] Last Admin: 10/29/18 17:38 Dose: 12.5 mg Midodrine (Proamatine) 2.5 mg PO TID [facility] Last Admin: 10/29/18 17:38 Dose: 2.5 mg Modafinil (Provigil) 50 mg PO DAILY [facility] Last Admin: 10/29/18 09:03 Dose: 50 mg Pantoprazole Sodium (Protonix Susp) 40 mg PO 0600 [facility] Last Admin: 10/29/18 06:01 Dose: 40 mg Rosuvastatin Calcium (Crestor) 10 mg PO HS [facility] Last Admin: 10/29/18 21:00 Dose: 10 mg Sitagliptin Phosphate (Januvia) 25 mg PO DAILY [facility] Last Admin: 10/29/18 09:01 Dose: 25 mg - Labs Labs: 10/28/18 06:23 10/28/18 06:23 PT 14.1 SECONDS (9.7-12.2) H 10/19/18 06:21 INR 1.3 10/19/18 06:21 APTT 38 SECONDS (21-34) H 10/19/18 06:21
--- NOTE | 2018-10-29 22:16 | CP.PCM.PN ---
Subjective - Date & Time of Evaluation Date of Evaluation: 10/29/18 Time of Evaluation: 18:20 - Subjective Subjective: Patient remains unresponsive to commands On Ventilator No new cardiac events noted Objective - Vital Signs/Intake and Output Vital Signs (last 24 hours): Temp Pulse Resp BP Pulse Ox 98.8 F 95 H 20 102/57 L 98 10/29/18 16:00 10/29/18 16:00 10/29/18 16:00 10/29/18 16:00 10/29/18 16:00 Intake and Output: 10/29/18 10/30/18 18:59 06:59 Intake Total 675 Output Total 0 Balance 675 - Medications Medications: Current Medications Acetaminophen (Tylenol 650mg/20.3ml Solution Ud) 650 mg PO Q6 PRN PRN Reason: pain+fever Last Admin: 10/29/18 20:25 Dose: 650 mg Aspirin (Aspirin Chewable) 81 mg PO DAILY [facility] Last Admin: 10/29/18 09:01 Dose: 81 mg Epoetin Dedrick (Procrit) 10,000 unit IV MWF [facility] Last Admin: 10/29/18 10:35 Dose: 10,000 unit Glipizide (Glucotrol) 10 mg PO Q12 [facility] Last Admin: 10/29/18 21:00 Dose: 10 mg Heparin Sodium (Porcine) (Heparin) 5,000 units SC Q12 [facility] Last Admin: 10/29/18 21:01 Dose: 5,000 units Hydrocortisone (Cortef) 10 mg PO DAILY [facility] Last Admin: 10/29/18 09:01 Dose: 10 mg Insulin Aspart (Novolog) 0 unit SC Q6H [facility]; Protocol Last Admin: 10/29/18 17:48 Dose: 3 units Insulin Detemir (Levemir) 40 unit SC HS [facility] Last Admin: 10/29/18 21:01 Dose: 40 u Levetiracetam (Keppra) 1,000 mg PO BID [facility] Last Admin: 10/29/18 17:37 Dose: 1,000 mg Levothyroxine Sodium (Synthroid) 50 mcg PO 0600 [facility] Last Admin: 10/29/18 06:19 Dose: 50 mcg Metoprolol Tartrate (Lopressor) 12.5 mg NG BID [facility] Last Admin: 10/29/18 17:38 Dose: 12.5 mg Midodrine (Proamatine) 2.5 mg PO TID [facility] Last Admin: 10/29/18 17:38 Dose: 2.5 mg Modafinil (Provigil) 50 mg PO DAILY [facility] Last Admin: 10/29/18 09:03 Dose: 50 mg Pantoprazole Sodium (Protonix Susp) 40 mg PO 0600 [facility] Last Admin: 10/29/18 06:01 Dose: 40 mg Rosuvastatin Calcium (Crestor) 10 mg PO HS [facility] Last Admin: 10/29/18 21:00 Dose: 10 mg Sitagliptin Phosphate (Januvia) 25 mg PO DAILY [facility] Last Admin: 10/29/18 09:01 Dose: 25 mg - Labs Labs: 10/28/18 06:23 10/28/18 06:23 PT 14.1 SECONDS (9.7-12.2) H 10/19/18 06:21 INR 1.3 10/19/18 06:21 APTT 38 SECONDS (21-34) H 10/19/18 06:21
[2018-10-30] MEDS: (Novolog) Insulin Aspart, Recombinant 100 u/ml 10 ml vial SC SCH ×5 (01:39→23:57)
--- NOTE | 2018-10-30 02:52 | PN ---
DATE: 10/29/2018 SUBJECTIVE: The patient remains comatose and still has those jerky movements of the hands. She had a T-max of 100.8 today. Right now when I saw, she was afebrile. She still has a rectal tube. The PICC line or the midline has been discontinued, and she is on the trach vent. PHYSICAL EXAMINATION: VITAL SIGNS: T-max is 99.5 right now, pulse 89, blood pressure 146/56, respirations are 18 to 20. HEENT: Head is atraumatic, normocephalic. Trach site appears unremarkable. LUNGS: Clear. HEART: S1, S2. Regular. ABDOMEN: Soft, nontender. EXTREMITIES: No edema present. ASSESSMENT AND PLAN: She has a rectal tube. I would like to get a stool for Clostridium difficile. She is having low grade temps. At this time, her medications, she is on is vancomycin, and we will discontinue the vancomycin today and get a stool for Clostridium difficile, and we will follow. Chest x-ray was done today and the chest x-ray shows lines and tubes, elevated right diaphragm, venous congestion, patchy increased markings in the left lung, cardiomegaly, atherosclerotic calcification at the aortic knob, few distended loops of the bowel, degenerative changes in the spine. So, at this time, I think it is planned to get a stool for Clostridium difficile again. We did one few days ago, and to discontinue the antibiotics. We will follow, and she still has the dialysis catheter, but I recently did cultures which are all negative, and she is on percutaneous endoscopic gastrostomy feedings, so I will discontinue vancomycin and reevaluate if she has fevers. Sara Barrios MD
[2018-10-30] MEDS ORDERED: Sodium Chloride 0.9% 1,000 ML IV ONE (03:16)
[2018-10-30] MEDS: Albumin Human 25% (12.5 gm/50 ml) IV SCH ×2 (04:01→04:19)
[2018-10-30] MEDS: Levothyroxine 50 MCG TAB PO SCH (05:12)
[2018-10-30] MEDS: Pantoprazole 40 mg Susp UD PO SCH (05:13)
[2018-10-30] MEDS ORDERED: Sodium Chloride 0.9% 500 ML IV ONE (06:28)
[2018-10-30 07:38] LABS: ARTERIAL BLOOD GAS HCO3 21.9 mmol/L (21-28); ARTERIAL BLOOD GAS O2 SAT 99.3 % (95-98); ARTERIAL BLOOD GAS PCO2 30 mm/Hg (35-45); ARTERIAL BLOOD GAS PH 7.42 (7.35-7.45); ARTERIAL BLOOD GAS PO2 112 mm/Hg (80-100); ARTERIAL BLOOD GAS TCO2 20.4 mmol/L (22-28)
[2018-10-30 07:50] LABS: BASO # 0.2 K/uL (0.0-0.2); BASO % 1.5 % (0.0-2.0); RBC 3.95 Mil/uL (3.80-5.20); WHITE BLOOD COUNT 12.6 K/uL (4.8-10.8)
[2018-10-30 07:57] LABS: EOS # 0.3 K/uL (0.0-0.7); EOS % 2.4 % (0.0-4.0); HEMOGLOBIN 11.1 g/dL (11.0-16.0); LYMPH # 3.8 K/uL (1.0-4.3); LYMPH % 30.2 % (20.0-40.0); MEAN CELL VOLUME 90.4 fL (81.0-99.0); MEAN PLATELET VOLUME 10.7 fL (7.2-11.7); MONO # 1.5 K/uL (0.0-0.8); MONO % 11.6 % (0.0-10.0); NEUT # 6.8 K/uL (1.8-7.0); NEUT % 54.3 % (50.0-75.0); NRBC % 0.3 % (0.0-2.0); RED CELL DISTRIBUTION WIDTH 18.5 % (11.5-14.5)
--- NOTE | 2018-10-30 08:07 | CP.PCM.PN ---
Subjective - Date & Time of Evaluation Date of Evaluation: 10/30/18 Time of Evaluation: 08:04 - Subjective Subjective: on vent / tyson tube feeds unresponsive no events Objective - Vital Signs/Intake and Output Vital Signs (last 24 hours): Temp Pulse Resp BP Pulse Ox 100 F H 92 H 20 80/45 L 97 10/30/18 03:00 10/30/18 03:00 10/30/18 02:00 10/30/18 03:00 10/30/18 03:00 Intake and Output: 10/30/18 10/30/18 06:59 18:59 Intake Total 150 Output Total 0 Balance 150 - Medications Medications: Current Medications Acetaminophen (Tylenol 650mg/20.3ml Solution Ud) 650 mg PO Q6 PRN PRN Reason: pain+fever Last Admin: 10/29/18 20:25 Dose: 650 mg Aspirin (Aspirin Chewable) 81 mg PO DAILY [facility] Last Admin: 10/29/18 09:01 Dose: 81 mg Epoetin Dedrick (Procrit) 10,000 unit IV MWF [facility] Last Admin: 10/29/18 10:35 Dose: 10,000 unit Glipizide (Glucotrol) 10 mg PO Q12 [facility] Last Admin: 10/29/18 21:00 Dose: 10 mg Heparin Sodium (Porcine) (Heparin) 5,000 units SC Q12 [facility] Last Admin: 10/29/18 21:01 Dose: 5,000 units Hydrocortisone (Cortef) 10 mg PO DAILY [facility] Last Admin: 10/29/18 09:01 Dose: 10 mg Norepinephrine Bitartrate 4 mg (/ Sodium Chloride) 254 mls @ 15.24 mls/hr IV .[id number] PRN; Protocol PRN Reason: TITRATE PER MD ORDER Insulin Aspart (Novolog) 0 unit SC Q6H [facility]; Protocol Last Admin: 10/30/18 06:17 Dose: 3 units Insulin Detemir (Levemir) 40 unit SC HS [facility] Last Admin: 10/29/18 21:01 Dose: 40 u Levetiracetam (Keppra) 1,000 mg PO BID [facility] Last Admin: 10/29/18 17:37 Dose: 1,000 mg Levothyroxine Sodium (Synthroid) 50 mcg PO 0600 [facility] Last Admin: 10/30/18 05:12 Dose: 50 mcg Pantoprazole Sodium (Protonix Susp) 40 mg PO 0600 [facility] Last Admin: 10/30/18 05:13 Dose: 40 mg Rosuvastatin Calcium (Crestor) 10 mg PO HS [facility] Last Admin: 10/29/18 21:00 Dose: 10 mg - Labs Labs: 10/30/18 07:45 10/28/18 06:23 PT 14.1 SECONDS (9.7-12.2) H 10/19/18 06:21 INR 1.3 10/19/18 06:21 APTT 38 SECONDS (21-34) H 10/19/18 06:21 - Constitutional Appears: No Acute Distress, Chronically Ill (unresponsive on vent) - Head Exam Head Exam: NORMAL INSPECTION - Eye Exam Eye Exam: Normal appearance Pupil Exam: PERRL - ENT Exam Additional comments: trach-vent - Neck Exam Neck Exam: Normal Inspection - Respiratory Exam Respiratory Exam: Decreased Breath Sounds, NORMAL BREATHING PATTERN - Cardiovascular Exam Cardiovascular Exam: RRR - GI/Abdominal Exam GI & Abdominal Exam: Distended (peg tube), Soft - Extremities Exam Extremities Exam: Normal Inspection - Neurological Exam Additional comments: unresponsive - Skin Skin Exam: Dry, Intact Assessment and Plan (1) ESRD (end stage renal disease) Status: Acute (2) CAD (coronary artery disease) Status: Acute (3) CHF (congestive heart failure) Status: Acute (4) Hypertension Status: Acute - Assessment and Plan (Free Text) Assessment: maintain hd mwf uf as tolerated poor prognosis
[2018-10-30 08:12] LABS: ALB/GLOB RATIO 1.2 (1.0-2.1); ALBUMIN 4.2 g/dL (3.5-5.0); CALCIUM 8.4 mg/dl (8.6-10.4)
[2018-10-30] MEDS: levETIRAcetam 100 mg/ml (5ml) Oral Syringe PO SCH ×2 (10:51→18:09)
--- NOTE | 2018-10-30 12:11 | RAD ---
Date of service: 10/30/2018 HISTORY: f/u COMPARISON: No prior. FINDINGS: LUNGS: No active pulmonary disease. PLEURA: No significant pleural effusion identified, no pneumothorax apparent. CARDIOVASCULAR: Atherosclerotic calcifications identified primarily aortic arch. Venous access catheter in stable, satisfactory position. No radiographic findings to suggest acute or significant cardiovascular disease. OSSEOUS STRUCTURES: No significant abnormalities. VISUALIZED UPPER ABDOMEN: Normal. OTHER FINDINGS: Stable, satisfactory position of tracheostomy device. IMPRESSION: No active pulmonary disease. No significant interval change compared to the prior examination(s).
--- NOTE | 2018-10-30 13:05 | CT ---
Date of service: 10/30/2018 CT chest, abdomen, and pelvis without IV contrast Indication: fever Technique: Contiguous axial images of the chest, abdomen, and pelvis without oral or IV contrast. Coronal and Sagittal reformats generated and reviewed. This CT exam was performed using 1 or more of the following dose reduction techniques: Automated exposure control, adjustment of the MAA and/or kV according to patient size, and/or use of iterative reconstruction technique. Radiation dose: Total exam DLP = 1797.78 MGy-cm. Comparison: CT chest, abdomen, and pelvis without contrast performed 07/23/17 Findings: Tracheostomy tube. Right IJ approach dialysis catheter extends to the right atrium and right ventricle. Visualized portions of the inferior thyroid gland appear unremarkable. The unenhanced mediastinal and hilar vascular structures appear grossly unremarkable. Cardiomegaly. Dense coronary artery calcifications. Atherosclerotic calcifications of the aorta. Trace pericardial fluid. Bibasilar atelectasis/infiltrates. No significant pleural effusion. No pneumothorax. Focal prominence of the pancreas at the level the pancreatic head measuring approximately 3.0 x 3.0 cm (series 3, image 119) may be the result of normal pancreatic tissue in the setting of surrounding pancreatic atrophy however pancreatic neoplasm is not excluded. The noncontrast liver, spleen, kidneys, adrenal glands, and gallbladder appear unremarkable. Percutaneous gastrostomy tube. The stomach is nondistended. Gastric antrum appears collapsed however wall thickening is not excluded. Lack of oral contrast limits evaluation for bowel pathology. The bowel loops appear within normal limits of caliber without evidence of intestinal obstruction. There is no definite free air. Fluid and gas filled distended rectum versus perirectal abscess. Evidence of anastomotic bowel suture material and/or rectal tube/packing material. Correlate clinically. 1.6 cm right adnexal soft tissue (series 6, image 147), possibly ovary. Uterus is absent presumably due to hysterectomy. Thick-walled decompressed urinary bladder. Osseous demineralization. Degenerative changes. Impression: Fluid and gas filled distended rectum versus perirectal abscess. Evidence of anastomotic bowel suture material and/or rectal tube/packing material. Correlate clinically. Tracheostomy tube. Right IJ approach dialysis catheter with tips extending to the right atrium and right ventricle; consider repositioning if indicated. Percutaneous gastrostomy tube. Focal prominence of the pancreas at the level the pancreatic head measuring approximately 3.0 x 3.0 cm (series 3, image 119) may be the result of normal pancreatic tissue in the setting of surrounding pancreatic atrophy however pancreatic neoplasm is not excluded. Follow-up CT with IV contrast recommended if indicated. Thick-walled under distended urinary bladder. Recommend correlation with urinalysis. Cardiomegaly. Dense coronary artery calcifications. Atherosclerotic calcifications of the aorta. Trace pericardial fluid. Bibasilar atelectasis/infiltrates. Percutaneous gastrostomy tube. The stomach is nondistended. Gastric antrum appears collapsed however wall thickening is not excluded. Correlate clinically for possibility of infectious or inflammatory etiologies. 1.6 cm right adnexal soft tissue, possibly ovary. Uterus is absent consistent with hysterectomy. Correlate clinically. Additional incidental findings as above. Findings discussed with Dr. Amaya On 10/30/18 at 12:27 p.m.
--- NOTE | 2018-10-30 13:58 | CP.CCUPN ---
<Eliseo Ríos - Last Filed: 10/30/18 18:16> CCU Subjective - Physician Review Critical Care Time Spent (in minutes): 40 CCU Objective - Vital Signs / Intake & Output Vital Signs (Last 4 hours): Vital Signs Temp Pulse Resp BP Pulse Ox 10/30/18 16:30 97 H 22 100 10/30/18 16:29 93 H 20 90/46 L 100 10/30/18 16:00 104.2 F H 100 H 22 94 L 10/30/18 15:59 98 H 20 83/50 L 10/30/18 15:30 104 H 20 93 L 10/30/18 15:29 105 H 22 97/52 L 97 10/30/18 15:00 103 H 21 100 10/30/18 14:59 103 H 20 112/57 L 100 10/30/18 14:30 103 H 20 115/51 L 100 Intake and Output (Last 8hrs): Intake & Output 10/30/18 10/30/18 10/30/18 06:59 14:59 22:59 Intake Total 300 652.3 337.0 Output Total 500 100 Balance -200 552.3 337.0 Weight 180 lb Intake: IV 4 Intake, IV Amount 598.3 287.0 Left Forearm 250 RIGHT PERMACATH 598.3 37.0 Tube Feeding 300 0 Other 50 50 Output: Gastric Amount 100 Stomach 100 Urine 0 Urine, Voided 0 Stool 500 - Medications Active Medications: Active Medications Generic Name Dose Route Start Last Admin Trade Name Freq PRN Reason Stop Dose Admin Acetaminophen 650 mg 10/25/18 03:30 10/30/18 15:49 Tylenol 650mg/20.3ml Solution Ud PO 650 mg Q6 PRN Administration pain+fever Aspirin 81 mg 10/08/18 10:00 10/30/18 10:52 Aspirin Chewable PO 81 mg DAILY JOCELYN Administration Epoetin Dedrick 10,000 unit 10/17/18 09:00 10/29/18 10:35 Procrit IV 10,000 unit MWF JOCELYN Administration Glipizide 10 mg 10/28/18 22:00 10/30/18 10:52 Glucotrol PO 10 mg Q12 JOCELYN Administration Heparin Sodium (Porcine) 5,000 units 10/15/18 10:00 10/30/18 10:52 Heparin SC Not Given Q12 JOCELYN Hydrocortisone 10 mg 10/15/18 10:00 10/30/18 10:52 Cortef PO 10 mg DAILY JOCELYN Administration Norepinephrine Bitartrate 4 mg 254 mls @ 15.24 mls/hr 10/30/18 07:25 10/30/18 10:59 / Sodium Chloride IV 3 mcg/min .[id number] PRN 11.43 mls/hr TITRATE PER MD ORDER Titration Protocol 4 MCG/MIN Meropenem 500 mg/ Sodium 100 mls @ 100 mls/hr 10/30/18 15:30 10/30/18 15:23 Chloride IVPB 100 mls/hr DAILY JOCELYN Administration Protocol Vancomycin HCl 500 mg/ Sodium 100 mls @ 100 mls/hr 10/31/18 09:00 Chloride IVPB MWF [facility] Protocol Insulin Aspart 0 unit 10/18/18 18:00 10/30/18 18:05 Novolog SC 3 units Q6H [facility] Administration Protocol Insulin Detemir 40 unit 10/28/18 22:00 10/29/18 21:01 Levemir SC 40 u HS JOCELYN Administration Levetiracetam 1,000 mg 10/28/18 18:00 10/30/18 18:09 Keppra PO 1,000 mg BID JOCELYN Administration Levothyroxine Sodium 50 mcg 09/29/18 08:00 10/30/18 05:12 Synthroid PO 50 mcg 0600 JOCELYN Administration Metronidazole 500 mg 10/30/18 14:15 10/30/18 15:23 Flagyl PO 500 mg Q8 JOCELYN Administration Protocol Pantoprazole Sodium 40 mg 10/09/18 06:00 10/30/18 05:13 Protonix Susp PO 40 mg 0600 JOCELYN Administration Rosuvastatin Calcium 10 mg 09/30/18 22:00 10/29/18 21:00 Crestor PO 10 mg HS [facility] Administration - Patient Studies Lab Studies: Microbiology Studies 10/30/18 08:29 Gram Stain - Final Sputum 10/28/18 17:16 Catheter Tip Culture - Final Arm Right No Growth 10/24/18 12:40 Blood Culture - Final Blood-During Dialysis NO GROWTH AFTER 5 DAYS Gram Stain - Final TEST NOT PERFORMED 10/24/18 12:00 Blood Culture - Final Blood-During Dialysis NO GROWTH AFTER 5 DAYS Gram Stain - Final TEST NOT PERFORMED Lab Studies 10/30/18 10/30/18 10/30/18 Range/Units 17:30 14:49 14:46 WBC (4.8-10.8) K/uL RBC (3.80-5.20) Mil/uL Hgb (11.0-16.0) g/dL Hct (34.0-47.0) % MCV (81.0-99.0) fL MCH (27.0-31.0) pg MCHC (33.0-37.0) g/dL RDW (11.5-14.5) % Plt Count (130-400) K/uL MPV (7.2-11.7) fL Neut % (Auto) (50.0-75.0) % Lymph % (Auto) (20.0-40.0) % Hawkins % (Auto) (0.0-10.0) % Eos % (Auto) (0.0-4.0) % Baso % (Auto) (0.0-2.0) % Neut # (Auto) (1.8-7.0) K/uL Lymph # (Auto) (1.0-4.3) K/uL Hawkins # (Auto) (0.0-0.8) K/uL Eos # (Auto) (0.0-0.7) K/uL Baso # (Auto) (0.0-0.2) K/uL Differential Comment Puncture Site pCO2 (35-45) mm/Hg pO2 (80-100) mm/Hg HCO3 (21-28) mmol/L ABG pH (7.35-7.45) ABG Total CO2 (22-28) mmol/L ABG O2 Saturation (95-98) % ABG Base Excess (-2.0-3.0) mmol/L Jimenez Test ABG Potassium (3.6-5.2) mmol/L A-a O2 Difference mm/Hg Respiratory Index Sodium (132-148) mmol/l Chloride (98-107) mmol/L Glucose (65-105) mg/dl Lactate (0.7-2.1) mmol/L Vent Mode Mechanical Rate FiO2 % Tidal Volume PEEP Potassium (3.6-5.2) mmol/L Carbon Dioxide (22-30) mmol/L Anion Gap (10-20) BUN (7-17) mg/dL Creatinine (0.7-1.2) mg/dL Est GFR ( Amer) Est GFR (Non-Af Amer) POC Glucose (mg/dL) 325 H (65-110) mg/dL Random Glucose (65-105) mg/dL Calcium (8.6-10.4) mg/dl Phosphorus (2.5-4.5) mg/dL Magnesium (1.6-2.3) mg/dL Total Bilirubin (0.2-1.3) mg/dL AST (14-36) U/L ALT (9-52) U/L Alkaline Phosphatase (38-126) U/L Total Protein (6.3-8.3) g/dL Albumin (3.5-5.0) g/dL Globulin (2.2-3.9) gm/dL Albumin/Globulin Ratio (1.0-2.1) Arterial Blood Potassium (3.6-5.2) mmol/L Random Vancomycin 43.4 ug/mL C. difficile Ag & Toxin Negative (NEGATIVE) 10/30/18 10/30/18 10/30/18 Range/Units 11:18 07:45 07:45 WBC 12.6 H (4.8-10.8) K/uL RBC 3.95 (3.80-5.20) Mil/uL Hgb 11.1 (11.0-16.0) g/dL Hct 35.7 (34.0-47.0) % MCV 90.4 (81.0-99.0) fL MCH 28.0 (27.0-31.0) pg MCHC 31.0 L (33.0-37.0) g/dL RDW 18.5 H (11.5-14.5) % Plt Count 77 L D (130-400) K/uL MPV 10.7 (7.2-11.7) fL Neut % (Auto) 54.3 (50.0-75.0) % Lymph % (Auto) 30.2 (20.0-40.0) % Hawkins % (Auto) 11.6 H (0.0-10.0) % Eos % (Auto) 2.4 (0.0-4.0) % Baso % (Auto) 1.5 (0.0-2.0) % Neut # (Auto) 6.8 (1.8-7.0) K/uL Lymph # (Auto) 3.8 (1.0-4.3) K/uL Hawkins # (Auto) 1.5 H (0.0-0.8) K/uL Eos # (Auto) 0.3 (0.0-0.7) K/uL Baso # (Auto) 0.2 (0.0-0.2) K/uL Differential Comment Puncture Site pCO2 (35-45) mm/Hg pO2 (80-100) mm/Hg HCO3 (21-28) mmol/L ABG pH (7.35-7.45) ABG Total CO2 (22-28) mmol/L ABG O2 Saturation (95-98) % ABG Base Excess (-2.0-3.0) mmol/L Jimenez Test ABG Potassium (3.6-5.2) mmol/L A-a O2 Difference mm/Hg Respiratory Index Sodium 138 (132-148) mmol/l Chloride 100 (98-107) mmol/L Glucose (65-105) mg/dl Lactate (0.7-2.1) mmol/L Vent Mode Mechanical Rate FiO2 % Tidal Volume PEEP Potassium 3.5 L (3.6-5.2) mmol/L Carbon Dioxide 22 (22-30) mmol/L Anion Gap 20 (10-20) BUN 36 H (7-17) mg/dL Creatinine 6.2 H (0.7-1.2) mg/dL Est GFR ( Amer) 8 Est GFR (Non-Af Amer) 7 POC Glucose (mg/dL) 266 H (65-110) mg/dL Random Glucose 252 H (65-105) mg/dL Calcium 8.4 L (8.6-10.4) mg/dl Phosphorus 3.0 (2.5-4.5) mg/dL Magnesium 2.1 (1.6-2.3) mg/dL Total Bilirubin 0.4 (0.2-1.3) mg/dL AST 82 H D (14-36) U/L ALT 26 (9-52) U/L Alkaline Phosphatase 100 (38-126) U/L Total Protein 7.7 (6.3-8.3) g/dL Albumin 4.2 (3.5-5.0) g/dL Globulin 3.5 (2.2-3.9) gm/dL Albumin/Globulin Ratio 1.2 (1.0-2.1) Arterial Blood Potassium (3.6-5.2) mmol/L Random Vancomycin ug/mL C. difficile Ag & Toxin (NEGATIVE) 10/30/18 10/30/18 10/30/18 Range/Units 07:34 06:13 00:29 WBC (4.8-10.8) K/uL RBC (3.80-5.20) Mil/uL Hgb (11.0-16.0) g/dL Hct (34.0-47.0) % MCV (81.0-99.0) fL MCH (27.0-31.0) pg MCHC (33.0-37.0) g/dL RDW (11.5-14.5) % Plt Count (130-400) K/uL MPV (7.2-11.7) fL Neut % (Auto) (50.0-75.0) % Lymph % (Auto) (20.0-40.0) % Hawkins % (Auto) (0.0-10.0) % Eos % (Auto) (0.0-4.0) % Baso % (Auto) (0.0-2.0) % Neut # (Auto) (1.8-7.0) K/uL Lymph # (Auto) (1.0-4.3) K/uL Hawkins # (Auto) (0.0-0.8) K/uL Eos # (Auto) (0.0-0.7) K/uL Baso # (Auto) (0.0-0.2) K/uL Differential Comment Puncture Site Rba pCO2 30 L (35-45) mm/Hg pO2 112 H (80-100) mm/Hg HCO3 21.9 (21-28) mmol/L ABG pH 7.42 (7.35-7.45) ABG Total CO2 20.4 L (22-28) mmol/L ABG O2 Saturation 99.3 H (95-98) % ABG Base Excess -3.9 L (-2.0-3.0) mmol/L Jimenez Test Na ABG Potassium 3.2 L (3.6-5.2) mmol/L A-a O2 Difference 100.0 mm/Hg Respiratory Index 0.9 Sodium 141.0 (132-148) mmol/l Chloride 108.0 H (98-107) mmol/L Glucose 247 H (65-105) mg/dl Lactate 1.6 (0.7-2.1) mmol/L Vent Mode Prvc Mechanical Rate 14 FiO2 35.0 % Tidal Volume 450 PEEP 5 Potassium (3.6-5.2) mmol/L Carbon Dioxide (22-30) mmol/L Anion Gap (10-20) BUN (7-17) mg/dL Creatinine (0.7-1.2) mg/dL Est GFR ( Amer) Est GFR (Non-Af Amer) POC Glucose (mg/dL) 213 H 193 H (65-110) mg/dL Random Glucose (65-105) mg/dL Calcium (8.6-10.4) mg/dl Phosphorus (2.5-4.5) mg/dL Magnesium (1.6-2.3) mg/dL Total Bilirubin (0.2-1.3) mg/dL AST (14-36) U/L ALT (9-52) U/L Alkaline Phosphatase (38-126) U/L Total Protein (6.3-8.3) g/dL Albumin (3.5-5.0) g/dL Globulin (2.2-3.9) gm/dL Albumin/Globulin Ratio (1.0-2.1) Arterial Blood Potassium 3.2 L (3.6-5.2) mmol/L Random Vancomycin ug/mL C. difficile Ag & Toxin (NEGATIVE) Laboratory Results - last 24 hr 10/30/18 10/30/18 10/30/18 00:29 06:13 07:34 WBC RBC Hgb Hct MCV MCH MCHC RDW Plt Count MPV Neut % (Auto) Lymph % (Auto) Hawkins % (Auto) Eos % (Auto) Baso % (Auto) Neut # (Auto) Lymph # (Auto) Hawkins # (Auto) Eos # (Auto) Baso # (Auto) Differential Comment Puncture Site Rba pCO2 30 L pO2 112 H HCO3 21.9 ABG pH 7.42 ABG Total CO2 20.4 L ABG O2 Saturation 99.3 H ABG Base Excess -3.9 L Jimenez Test Na ABG Potassium 3.2 L A-a O2 Difference 100.0 Respiratory Index 0.9 Sodium 141.0 Chloride 108.0 H Glucose 247 H Lactate 1.6 Vent Mode Prvc Mechanical Rate 14 FiO2 35.0 Tidal Volume 450 PEEP 5 Potassium Carbon Dioxide Anion Gap BUN Creatinine Est GFR ( Amer) Est GFR (Non-Af Amer) POC Glucose (mg/dL) 193 H 213 H Random Glucose Calcium Phosphorus Magnesium Total Bilirubin AST ALT Alkaline Phosphatase Total Protein Albumin Globulin Albumin/Globulin Ratio Arterial Blood Potassium 3.2 L Random Vancomycin C. difficile Ag & Toxin 10/30/18 10/30/18 10/30/18 07:45 07:45 11:18 WBC 12.6 H RBC 3.95 Hgb 11.1 Hct 35.7 MCV 90.4 MCH 28.0 MCHC 31.0 L RDW 18.5 H Plt Count 77 L D MPV 10.7 Neut % (Auto) 54.3 Lymph % (Auto) 30.2 Hawkins % (Auto) 11.6 H Eos % (Auto) 2.4 Baso % (Auto) 1.5 Neut # (Auto) 6.8 Lymph # (Auto) 3.8 Hawkins # (Auto) 1.5 H Eos # (Auto) 0.3 Baso # (Auto) 0.2 Differential Comment Puncture Site pCO2 pO2 HCO3 ABG pH ABG Total CO2 ABG O2 Saturation ABG Base Excess Jimenez Test ABG Potassium A-a O2 Difference Respiratory Index Sodium 138 Chloride 100 Glucose Lactate Vent Mode Mechanical Rate FiO2 Tidal Volume PEEP Potassium 3.5 L Carbon Dioxide 22 Anion Gap 20 BUN 36 H Creatinine 6.2 H Est GFR ( Amer) 8 Est GFR (Non-Af Amer) 7 POC Glucose (mg/dL) 266 H Random Glucose 252 H Calcium 8.4 L Phosphorus 3.0 Magnesium 2.1 Total Bilirubin 0.4 AST 82 H D ALT 26 Alkaline Phosphatase 100 Total Protein 7.7 Albumin 4.2 Globulin 3.5 Albumin/Globulin Ratio 1.2 Arterial Blood Potassium Random Vancomycin C. difficile Ag & Toxin 10/30/18 10/30/18 10/30/18 14:46 14:49 17:30 WBC RBC Hgb Hct MCV MCH MCHC RDW Plt Count MPV Neut % (Auto) Lymph % (Auto) Hawkins % (Auto) Eos % (Auto) Baso % (Auto) Neut # (Auto) Lymph # (Auto) Hawkins # (Auto) Eos # (Auto) Baso # (Auto) Differential Comment Puncture Site pCO2 pO2 HCO3 ABG pH ABG Total CO2 ABG O2 Saturation ABG Base Excess Jimenez Test ABG Potassium A-a O2 Difference Respiratory Index Sodium Chloride Glucose Lactate Vent Mode Mechanical Rate FiO2 Tidal Volume PEEP Potassium Carbon Dioxide Anion Gap BUN Creatinine Est GFR ( Amer) Est GFR (Non-Af Amer) POC Glucose (mg/dL) 325 H Random Glucose Calcium Phosphorus Magnesium Total Bilirubin AST ALT Alkaline Phosphatase Total Protein Albumin Globulin Albumin/Globulin Ratio Arterial Blood Potassium Random Vancomycin 43.4 C. difficile Ag & Toxin Negative Radiology Impressions: Radiology Impressions Chest X-Ray 10/30/18 06:00 IMPRESSION: No active pulmonary disease. No significant interval change compared to the prior examination(s). Chest/Abdomen/Pelvis CT 10/30/18 07:39 Impression: Fluid and gas filled distended rectum versus perirectal abscess. Evidence of anastomotic bowel suture material and/or rectal tube/packing material. Correlate clinically. Tracheostomy tube. Right IJ approach dialysis catheter with tips extending to the right atrium and right ventricle; consider repositioning if indicated. Percutaneous gastrostomy tube. Focal prominence of the pancreas at the level the pancreatic head measuring approximately 3.0 x 3.0 cm (series 3, image 119) may be the result of normal pancreatic tissue in the setting of surrounding pancreatic atrophy however pancreatic neoplasm is not excluded. Follow-up CT with IV contrast recommended if indicated. Thick-walled under distended urinary bladder. Recommend correlation with urinalysis. Cardiomegaly. Dense coronary artery calcifications. Atherosclerotic calcifications of the aorta. Trace pericardial fluid. Bibasilar atelectasis/infiltrates. Percutaneous gastrostomy tube. The stomach is nondistended. Gastric antrum appears collapsed however wall thickening is not excluded. Correlate clinically for possibility of infectious or inflammatory etiologies. 1.6 cm right adnexal soft tissue, possibly ovary. Uterus is absent consistent with hysterectomy. Correlate clinically. Additional incidental findings as above. Findings discussed with Dr. Amaya On 10/30/18 at 12:27 p.m. Attending/Attestation - Attestation I have personally seen and examined this patient.: Yes I have fully participated in the care of the patient.: Yes I have reviewed all pertinent clinical information: Yes Notes (Text): 10/30/18 18:17 Patient seen and examined in the intensive care unit. Case discussed with housestaff in the morning rounds. Patient hypotensive and started on pressors Permacath removed and blood cultures done Continue antibiotics as per infectious disease For repeat MRI when stable <Dyllan Patton - Last Filed: 10/30/18 18:50> CCU Subjective - Physician Review Subjective (Free Text): PGY-1 ICU progress note for Dr Michoacano black Pt seen and examined at bedside. Patient is resting in bed, sleeping at time of encounter, seen to move her upper and lower extremities at times throughout the day. Does not follow commands. ROS unattainable due to patient's mental status. CCU Objective - Vital Signs / Intake & Output Vital Signs (Last 4 hours): Vital Signs Temp Pulse Resp BP Pulse Ox 10/30/18 12:00 100.9 F H 98 H 13 100 10/30/18 11:59 98 H 19 91/45 L 10/30/18 11:45 96 H 15 100 10/30/18 11:30 93 H 15 100 10/30/18 11:29 93 H 23 93/45 L 100 10/30/18 11:15 99 H 15 100 10/30/18 11:00 96 H 15 100 10/30/18 10:53 93 H 16 101/43 L 10/30/18 10:45 91 H 16 10/30/18 10:38 94 H 20 108/44 L 10/30/18 10:30 100 H 12 100 10/30/18 10:22 92 H 18 96/47 L 100 10/30/18 10:15 92 H 14 100 10/30/18 10:07 90 16 101/42 L 100 10/30/18 10:00 89 17 100 Intake and Output (Last 8hrs): Intake & Output 10/29/18 10/30/18 10/30/18 22:59 06:59 14:59 Intake Total 450 300 615.3 Output Total 0 500 100 Balance 450 -200 515.3 Weight 180 lb Intake: IV 4 Intake, IV Amount 250 561.3 RIGHT PERMACATH 561.3 Right Upper arm 250 Tube Feeding 200 300 0 Other 50 Output: Gastric Amount 100 Stomach 100 Urine 0 0 Urine, Voided 0 0 Stool 500 Other: # Bowel Movements 170 - Physical Exam Head: Positive for: Atraumatic, Normocephalic Extroacular Muscles: Positive for: EOMI (dropping eyelid left) Conjunctiva: Positive for: Normal Mouth: Positive for: Dry Neck: Positive for: Other (tracheostomy in place with vent, permacath right side chest area ) Respiratory/Chest: Positive for: Decreased Breath Sounds, Other (intubated ). Negative for: Respiratory Distress, Accessory Muscle Use, Tachypneic Cardiovascular: Positive for: Regular Rate and Rhythm, Normal S1, S2 Abdomen: Positive for: Normal Bowel Sounds, Other (PEG tube in place ). Negative for: Tenderness, Distention, Rebound, Guarding Upper Extremity: Positive for: Normal Inspection. Negative for: Cyanosis, Edema Lower Extremity: Positive for: Normal Inspection. Negative for: Edema Neurological: Negative for: GCS=15, CN II-XII Intact, Speech Normal Skin: Positive for: Warm, Dry, Normal Color, Other (permacath in place, midline right upper side ) Psychiatric: Positive for: Agitated. Negative for: Alert, Oriented x 3, Normal Insight, Normal Concentration - Medications Active Medications: Active Medications Generic Name Dose Route Start Last Admin Trade Name Freq PRN Reason Stop Dose Admin Acetaminophen 650 mg 10/25/18 03:30 10/29/18 20:25 Tylenol 650mg/20.3ml Solution Ud PO 650 mg Q6 PRN Administration pain+fever Aspirin 81 mg 10/08/18 10:00 10/30/18 10:52 Aspirin Chewable PO 81 mg DAILY JOCELYN Administration Epoetin Dedrick 10,000 unit 10/17/18 09:00 10/29/18 10:35 Procrit IV 10,000 unit [facility] JOCELYN Administration Glipizide 10 mg 10/28/18 22:00 10/30/18 10:52 Glucotrol PO 10 mg Q12 JOCELYN Administration Heparin Sodium (Porcine) 5,000 units 10/15/18 10:00 10/30/18 10:52 Heparin SC Not Given Q12 JOCELYN Hydrocortisone 10 mg 10/15/18 10:00 10/30/18 10:52 Cortef PO 10 mg DAILY JOCELYN Administration Norepinephrine Bitartrate 4 mg 254 mls @ 15.24 mls/hr 10/30/18 07:25 10/30/18 10:59 / Sodium Chloride IV 3 mcg/min .[id number] PRN 11.43 mls/hr TITRATE PER MD ORDER Titration Protocol 4 MCG/MIN Insulin Aspart 0 unit 10/18/18 18:00 10/30/18 12:20 Novolog SC 4 units Q6H JOCELYN Administration Protocol Insulin Detemir 40 unit 10/28/18 22:00 10/29/18 21:01 Levemir SC 40 u HS JOCELYN Administration Levetiracetam 1,000 mg 10/28/18 18:00 10/30/18 10:51 Keppra PO 1,000 mg BID JOCELYN Administration Levothyroxine Sodium 50 mcg 09/29/18 08:00 10/30/18 05:12 Synthroid PO 50 mcg 0600 JOCELYN Administration Pantoprazole Sodium 40 mg 10/09/18 06:00 10/30/18 05:13 Protonix Susp PO 40 mg 0600 JOCELYN Administration Rosuvastatin Calcium 10 mg 09/30/18 22:00 10/29/18 21:00 Crestor PO 10 mg HS JOCELYN Administration - Patient Studies Lab Studies: Microbiology Studies 10/28/18 17:16 Catheter Tip Culture - Final Arm Right No Growth 10/24/18 12:40 Blood Culture - Final Blood-During Dialysis NO GROWTH AFTER 5 DAYS Gram Stain - Final TEST NOT PERFORMED 10/24/18 12:00 Blood Culture - Final Blood-During Dialysis NO GROWTH AFTER 5 DAYS Gram Stain - Final TEST NOT PERFORMED Lab Studies 10/30/18 10/30/18 10/30/18 Range/Units 07:45 07:45 07:34 WBC 12.6 H (4.8-10.8) K/uL RBC 3.95 (3.80-5.20) Mil/uL Hgb 11.1 (11.0-16.0) g/dL Hct 35.7 (34.0-47.0) % MCV 90.4 (81.0-99.0) fL MCH 28.0 (27.0-31.0) pg MCHC 31.0 L (33.0-37.0) g/dL RDW 18.5 H (11.5-14.5) % Plt Count 77 L D (130-400) K/uL MPV 10.7 (7.2-11.7) fL Neut % (Auto) 54.3 (50.0-75.0) % Lymph % (Auto) 30.2 (20.0-40.0) % Hawkins % (Auto) 11.6 H (0.0-10.0) % Eos % (Auto) 2.4 (0.0-4.0) % Baso % (Auto) 1.5 (0.0-2.0) % Neut # (Auto) 6.8 (1.8-7.0) K/uL Lymph # (Auto) 3.8 (1.0-4.3) K/uL Hawkins # (Auto) 1.5 H (0.0-0.8) K/uL Eos # (Auto) 0.3 (0.0-0.7) K/uL Baso # (Auto) 0.2 (0.0-0.2) K/uL Differential Comment Puncture Site Rba pCO2 30 L (35-45) mm/Hg pO2 112 H (80-100) mm/Hg HCO3 21.9 (21-28) mmol/L ABG pH 7.42 (7.35-7.45) ABG Total CO2 20.4 L (22-28) mmol/L ABG O2 Saturation 99.3 H (95-98) % ABG Base Excess -3.9 L (-2.0-3.0) mmol/L Jimenez Test Na ABG Potassium 3.2 L (3.6-5.2) mmol/L A-a O2 Difference 100.0 mm/Hg Respiratory Index 0.9 Sodium 138 141.0 (132-148) mmol/l Chloride 100 108.0 H (98-107) mmol/L Glucose 247 H (65-105) mg/dl Lactate 1.6 (0.7-2.1) mmol/L Vent Mode Prvc Mechanical Rate 14 FiO2 35.0 % Tidal Volume 450 PEEP 5 Potassium 3.5 L (3.6-5.2) mmol/L Carbon Dioxide 22 (22-30) mmol/L Anion Gap 20 (10-20) BUN 36 H (7-17) mg/dL Creatinine 6.2 H (0.7-1.2) mg/dL Est GFR ( Amer) 8 Est GFR (Non-Af Amer) 7 POC Glucose (mg/dL) (65-110) mg/dL Random Glucose 252 H (65-105) mg/dL Calcium 8.4 L (8.6-10.4) mg/dl Phosphorus 3.0 (2.5-4.5) mg/dL Magnesium 2.1 (1.6-2.3) mg/dL Total Bilirubin 0.4 (0.2-1.3) mg/dL AST 82 H D (14-36) U/L ALT 26 (9-52) U/L Alkaline Phosphatase 100 (38-126) U/L Total Protein 7.7 (6.3-8.3) g/dL Albumin 4.2 (3.5-5.0) g/dL Globulin 3.5 (2.2-3.9) gm/dL Albumin/Globulin Ratio 1.2 (1.0-2.1) Arterial Blood Potassium 3.2 L (3.6-5.2) mmol/L 10/30/18 10/30/18 10/29/18 Range/Units 06:13 00:29 17:44 WBC (4.8-10.8) K/uL RBC (3.80-5.20) Mil/uL Hgb (11.0-16.0) g/dL Hct (34.0-47.0) % MCV (81.0-99.0) fL MCH (27.0-31.0) pg MCHC (33.0-37.0) g/dL RDW (11.5-14.5) % Plt Count (130-400) K/uL MPV (7.2-11.7) fL Neut % (Auto) (50.0-75.0) % Lymph % (Auto) (20.0-40.0) % Hawkins % (Auto) (0.0-10.0) % Eos % (Auto) (0.0-4.0) % Baso % (Auto) (0.0-2.0) % Neut # (Auto) (1.8-7.0) K/uL Lymph # (Auto) (1.0-4.3) K/uL Hawkins # (Auto) (0.0-0.8) K/uL Eos # (Auto) (0.0-0.7) K/uL Baso # (Auto) (0.0-0.2) K/uL Differential Comment Puncture Site pCO2 (35-45) mm/Hg pO2 (80-100) mm/Hg HCO3 (21-28) mmol/L ABG pH (7.35-7.45) ABG Total CO2 (22-28) mmol/L ABG O2 Saturation (95-98) % ABG Base Excess (-2.0-3.0) mmol/L Jimenez Test ABG Potassium (3.6-5.2) mmol/L A-a O2 Difference mm/Hg Respiratory Index Sodium (132-148) mmol/l Chloride (98-107) mmol/L Glucose (65-105) mg/dl Lactate (0.7-2.1) mmol/L Vent Mode Mechanical Rate FiO2 % Tidal Volume PEEP Potassium (3.6-5.2) mmol/L Carbon Dioxide (22-30) mmol/L Anion Gap (10-20) BUN (7-17) mg/dL Creatinine (0.7-1.2) mg/dL Est GFR ( Amer) Est GFR (Non-Af Amer) POC Glucose (mg/dL) 213 H 193 H 225 H (65-110) mg/dL Random Glucose (65-105) mg/dL Calcium (8.6-10.4) mg/dl Phosphorus (2.5-4.5) mg/dL Magnesium (1.6-2.3) mg/dL Total Bilirubin (0.2-1.3) mg/dL AST (14-36) U/L ALT (9-52) U/L Alkaline Phosphatase (38-126) U/L Total Protein (6.3-8.3) g/dL Albumin (3.5-5.0) g/dL Globulin (2.2-3.9) gm/dL Albumin/Globulin Ratio (1.0-2.1) Arterial Blood Potassium (3.6-5.2) mmol/L Laboratory Results - last 24 hr 10/29/18 10/30/18 10/30/18 17:44 00:29 06:13 WBC RBC Hgb Hct MCV MCH MCHC RDW Plt Count MPV Neut % (Auto) Lymph % (Auto) Hawkins % (Auto) Eos % (Auto) Baso % (Auto) Neut # (Auto) Lymph # (Auto) Hawkins # (Auto) Eos # (Auto) Baso # (Auto) Differential Comment Puncture Site pCO2 pO2 HCO3 ABG pH ABG Total CO2 ABG O2 Saturation ABG Base Excess Jimenez Test ABG Potassium A-a O2 Difference Respiratory Index Sodium Chloride Glucose Lactate Vent Mode Mechanical Rate FiO2 Tidal Volume PEEP Potassium Carbon Dioxide Anion Gap BUN Creatinine Est GFR ( Amer) Est GFR (Non-Af Amer) POC Glucose (mg/dL) 225 H 193 H 213 H Random Glucose Calcium Phosphorus Magnesium Total Bilirubin AST ALT Alkaline Phosphatase Total Protein Albumin Globulin Albumin/Globulin Ratio Arterial Blood Potassium 10/30/18 10/30/18 10/30/18 07:34 07:45 07:45 WBC 12.6 H RBC 3.95 Hgb 11.1 Hct 35.7 MCV 90.4 MCH 28.0 MCHC 31.0 L RDW 18.5 H Plt Count 77 L D MPV 10.7 Neut % (Auto) 54.3 Lymph % (Auto) 30.2 Hawkins % (Auto) 11.6 H Eos % (Auto) 2.4 Baso % (Auto) 1.5 Neut # (Auto) 6.8 Lymph # (Auto) 3.8 Hawkins # (Auto) 1.5 H Eos # (Auto) 0.3 Baso # (Auto) 0.2 Differential Comment Puncture Site Rba pCO2 30 L pO2 112 H HCO3 21.9 ABG pH 7.42 ABG Total CO2 20.4 L ABG O2 Saturation 99.3 H ABG Base Excess -3.9 L Jimenez Test Na ABG Potassium 3.2 L A-a O2 Difference 100.0 Respiratory Index 0.9 Sodium 141.0 138 Chloride 108.0 H 100 Glucose 247 H Lactate 1.6 Vent Mode Prvc Mechanical Rate 14 FiO2 35.0 Tidal Volume 450 PEEP 5 Potassium 3.5 L Carbon Dioxide 22 Anion Gap 20 BUN 36 H Creatinine 6.2 H Est GFR ( Amer) 8 Est GFR (Non-Af Amer) 7 POC Glucose (mg/dL) Random Glucose 252 H Calcium 8.4 L Phosphorus 3.0 Magnesium 2.1 Total Bilirubin 0.4 AST 82 H D ALT 26 Alkaline Phosphatase 100 Total Protein 7.7 Albumin 4.2 Globulin 3.5 Albumin/Globulin Ratio 1.2 Arterial Blood Potassium 3.2 L Radiology Impressions: Radiology Impressions Chest X-Ray 10/30/18 06:00 IMPRESSION: No active pulmonary disease. No significant interval change compared to the prior examination(s). Chest/Abdomen/Pelvis CT 10/30/18 07:39 Impression: Fluid and gas filled distended rectum versus perirectal abscess. Evidence of anastomotic bowel suture material and/or rectal tube/packing material. Correlate clinically. Tracheostomy tube. Right IJ approach dialysis catheter with tips extending to the right atrium and right ventricle; consider repositioning if indicated. Percutaneous gastrostomy tube. Focal prominence of the pancreas at the level the pancreatic head measuring approximately 3.0 x 3.0 cm (series 3, image 119) may be the result of normal pancreatic tissue in the setting of surrounding pancreatic atrophy however pancreatic neoplasm is not excluded. Follow-up CT with IV contrast recommended if indicated. Thick-walled under distended urinary bladder. Recommend correlation with urinalysis. Cardiomegaly. Dense coronary artery calcifications. Atherosclerotic calcifications of the aorta. Trace pericardial fluid. Bibasilar atelectasis/infiltrates. Percutaneous gastrostomy tube. The stomach is nondistended. Gastric antrum appears collapsed however wall thickening is not excluded. Correlate clinically for possibility of infectious or inflammatory etiologies. 1.6 cm right adnexal soft tissue, possibly ovary. Uterus is absent consistent with hysterectomy. Correlate clinically. Additional incidental findings as above. Findings discussed with Dr. Amaya On 10/30/18 at 12:27 p.m. Fingerstick Blood Sugar Results: 266 Critical Care Progress Note - Vent Settings MODE:: PRVC TIDAL VOLUME:: 450 RESP RATE:: 18 FIO2:: 50 PEEP:: 5 - Restraints Justification for Restraints: High risk for self extubation, High risk for removing IV access Assessment/Plan - Assessment and Plan (Free Text) Plan: Patient is a 72 year old female with PMHx of CKD, CHF, CAD s/p stents, pituitary adenoma a/p resection, DM, who was admitted for respiratory and cardiac arrest s/p permacath placement and AVF on 10/05; possible AMS due to anoxic brain injury, now on HD MWF, tracheostomy on 10/18/17, PEG tube placement 10/23/18. Patient became hypotensive overnight and upgraded to ICU; patient remains on pressors. Neuro - Intubated, sedated - continue Keppra 1000mg BID Cardiac - Hypotensive 2/2 to possible sepsis - Levophed drip at 5 - continue to monitor vitals - continue Crestor 10mg, ASA 81mg Pulm - Intubated, vent settings PRVC 18/450/5/50 - CXR 10/30: No active pulmonary disease GI - PEG tube in place - protonix ppx Renal - HD MWF - continue Procrit Endo - Hx of Hypothyroidism, continue levothyroxine 50mg - Hx of DM, continue Glipizide, ISS - continue Cortef Heme - monitor CBC - hold Heparin SC ID - Hypotensive 2/2 possible sepsis - Febrile, Tmax 104F - WBC 12.6 today, continue to monitor - repeat blood cx and sputum cx - CT abdomen/pelvis 10/30: fluid and gas filled distended rectum versus perirectal abscess. Evidence of anastomotic bowel suture material and/or rectal tube/packing material. - f/u ID for antibiotic recs - discuss with surgery regarding removal of permacath and evaluation of possible rectal abscess PPx - Protonix for GI ppx - DVT ppx: SCDs - Tylenol PRN for fever Plan discussed with Dr. Michoacano Patton, PGY-1 - Date & Time Date: 10/30/18 Time: 08:00
[2018-10-30] MEDS ORDERED: Amikacin Sulfate 750 MG in Sodium Chloride 0.9% 250 ML IVPB ONE (15:00)
[2018-10-30] MEDS: Meropenem 500 MG in Sodium Chloride 0.9% 100 ML IVPB SCH (15:23)
--- NOTE | 2018-10-30 15:31 | CP.PCM.PN ---
Subjective - Date & Time of Evaluation Date of Evaluation: 10/30/18 Time of Evaluation: 14:00 - Subjective Subjective: Vascular Surgery Progress note. Dr. Blank Pt seen and examined at bedside. Patient became septic today. Patient remains intubated and has spontaneous upper extremity movement. Unable to obtain ROS due to intubation Objective - Vital Signs/Intake and Output Vital Signs (last 24 hours): Temp Pulse Resp BP Pulse Ox 100.9 F H 98 H 13 91/45 L 100 10/30/18 12:00 10/30/18 12:00 10/30/18 12:00 10/30/18 11:59 10/30/18 12:00 Intake and Output: 10/30/18 10/30/18 06:59 18:59 Intake Total 300 615.3 Output Total 500 100 Balance -200 515.3 - Medications Medications: Current Medications Acetaminophen (Tylenol 650mg/20.3ml Solution Ud) 650 mg PO Q6 PRN PRN Reason: pain+fever Last Admin: 10/29/18 20:25 Dose: 650 mg Aspirin (Aspirin Chewable) 81 mg PO DAILY [facility] Last Admin: 10/30/18 10:52 Dose: 81 mg Epoetin Dedrick (Procrit) 10,000 unit IV MWF [facility] Last Admin: 10/29/18 10:35 Dose: 10,000 unit Glipizide (Glucotrol) 10 mg PO Q12 [facility] Last Admin: 10/30/18 10:52 Dose: 10 mg Heparin Sodium (Porcine) (Heparin) 5,000 units SC Q12 [facility] Last Admin: 10/30/18 10:52 Dose: Not Given Hydrocortisone (Cortef) 10 mg PO DAILY [facility] Last Admin: 10/30/18 10:52 Dose: 10 mg Norepinephrine Bitartrate 4 mg (/ Sodium Chloride) 254 mls @ 15.24 mls/hr IV .[id number] PRN; Protocol PRN Reason: TITRATE PER MD ORDER Last Titration: 10/30/18 10:59 Dose: 3 mcg/min, 11.43 mls/hr Meropenem 500 mg/ Sodium (Chloride) 100 mls @ 100 mls/hr IVPB DAILY [facility]; Protocol Last Admin: 10/30/18 15:23 Dose: 100 mls/hr Amikacin Sulfate 750 mg/ (Sodium Chloride) 253 mls @ 250 mls/hr IVPB ONCE ONE; Protocol Stop: 10/30/18 16:00 Last Admin: 10/30/18 15:22 Dose: 250 mls/hr Insulin Aspart (Novolog) 0 unit SC Q6H [facility]; Protocol Last Admin: 10/30/18 12:20 Dose: 4 units Insulin Detemir (Levemir) 40 unit SC [facility] Last Admin: 10/29/18 21:01 Dose: 40 u Levetiracetam (Keppra) 1,000 mg PO BID [facility] Last Admin: 10/30/18 10:51 Dose: 1,000 mg Levothyroxine Sodium (Synthroid) 50 mcg PO 0600 [facility] Last Admin: 10/30/18 05:12 Dose: 50 mcg Metronidazole (Flagyl) 500 mg PO Q8 [facility]; Protocol Last Admin: 10/30/18 15:23 Dose: 500 mg Pantoprazole Sodium (Protonix Susp) 40 mg PO 0600 [facility] Last Admin: 10/30/18 05:13 Dose: 40 mg Rosuvastatin Calcium (Crestor) 10 mg PO [facility] Last Admin: 10/29/18 21:00 Dose: 10 mg - Labs Labs: 10/30/18 07:45 10/30/18 07:45 PT 14.1 SECONDS (9.7-12.2) H 10/19/18 06:21 INR 1.3 10/19/18 06:21 APTT 38 SECONDS (21-34) H 10/19/18 06:21 - Constitutional Appears: No Acute Distress - Eye Exam Eye Exam: Normal appearance - ENT Exam ENT Exam: Mucous Membranes Moist - Respiratory Exam Additional comments: Trach in place, on ventilator - Cardiovascular Exam Cardiovascular Exam: absent: Murmur - GI/Abdominal Exam GI & Abdominal Exam: Soft Additional comments: peg tube in play, no erythema present - Neurological Exam Neurological Exam: Alert, Awake - Skin Skin Exam: Dry, Intact, Normal Color, Warm Assessment and Plan - Assessment and Plan (Free Text) Assessment: 72yo F with ventilator dependent respiratory failure, surgery re-consulted for possible permacath infection Plan: - F/u CT read for soruce of infection - Will remove permacath - Abx per ID - Further recs per Dr. Abhay Langford, PGY1
[2018-10-30] MEDS: Acetaminophen 650mg/20.3ml solution UD PO PRN ×2 (15:49→22:45)
[2018-10-30] MEDS ORDERED: VANCOMYCIN HYDROCHLORIDE IVPB ONE (16:00)
[2018-10-30] MEDS ORDERED: Vancomycin 500mg/D5W 100 ml 500 MG/100 ML BAG IVPB ONE (17:00)
[2018-10-30] MEDS ORDERED: Midazolam 2 MG/2 ML VIAL IVP ONE (17:44)
[2018-10-30] MEDS ORDERED: Propofol 10 mg/ml Inj (20 ML) IV ONE (17:45)
[2018-10-30] MEDS ORDERED: Propofol 10 mg/ml Inj (20 ML) ONE (17:50)
[2018-10-30] MEDS: Insulin Detemir 100 units/ml Vial (Levemir) SC SCH (22:15)
--- NOTE | 2018-10-31 02:30 | PN ---
DATE: 10/30/2018 SUBJECTIVE: Today, the patient started to have high fevers. She had 104 fever when I went to see her. She was on Levophed; however, her mental status was unchanged. She remains tachycardic. She did have venous Dopplers done yesterday; results of which were pending. There is some redness noted at the catheter site. They would get the catheter changed. She remains unresponsive and on the trach-vent. PHYSICAL EXAMINATION: VITAL SIGNS: Temperature varied from 100 to 104, pulse of 98, and blood pressures 66/34 and 78/33, so she is really hypotensive and remains hypotensive clinically. HEENT: Head is atraumatic, normocephalic. Trach site appears unremarkable. She does have a catheter on the right side, and they are planning to change it. The other catheter was removed a few days ago. LUNGS: Clear. Occasional rhonchi. HEART: S1 and S2, regular. ABDOMEN: Soft, nontender. EXTREMITIES: Have mild edema. RECTAL: She has a rectal tube. I have ordered C. difficile. LABORATORY DATA: Labs are noted today. Labs show white count is 12.6, hemoglobin 11.1, hematocrit 35.7, platelet count is 77, is low. ABG was done which showed lactate level is 1.6, pH is 7.42, O2 saturation is 99.3, CO2 is 20.4. Sodium is 138, potassium 3.5, chlorides are 100, BUN is 36, creatinine 6.2. She is a dialysis patient. She had CAT scans done. CAT scan of the abdomen and pelvis was done which showed fluid and gas, distended rectum versus perirectal abscess, evidence of anastomotic bowel suture material and/or rectal tube or packing material, so they are thinking it may be due to the rectal tube, not anything else, but surgical consult is being obtained. Tracheostomy tube, right IJ catheter needs re-positioning which obviously they are trying to get rid of at this time, focal prominence of pancreatic head 3 x 3, so she may have a hepatic/pancreatic mass which is unclear at this time. She also has a thick-walled under distended urinary bladder, and she does not make any urine. Cardiomegaly, calcifications, bilateral atelectasis versus infiltrate, percutaneous gastrostomy tube, the stomach is not distended and appears collapsed between manuel; however, wall thickening is not excluded. She also has a 1.6-cm right adnexal soft tissue, possible ovary. Uterus is absent consistent with hysterectomy. IMPRESSION: She is in septic shock right now with hypotension. She already has end-stage renal disease and altered mental status. PLAN: Rule out catheter-related sepsis. The patient's vancomycin random level today was high. I wrote the order for vancomycin and then I was told that the toxicology revealed her random level is 43.4 which is significantly higher, so I may discontinue the vancomycin. She is on Merrem and Flagyl via the PEG tube and Merrem 500 IV daily. We will follow. Also, I am not sure if they can get a UA and urine C and S and if she has any perirectal abscess and since she is running high fevers, this could be all related to sepsis. Could this be central fevers if infection is excluded, then that is another possibility. Sara Barrios MD
[2018-10-31] MEDS: Pantoprazole 40 mg Susp UD PO SCH (05:11)
[2018-10-31] MEDS: Levothyroxine 50 MCG TAB PO SCH (05:11)
[2018-10-31] MEDS: (Novolog) Insulin Aspart, Recombinant 100 u/ml 10 ml vial SC SCH ×4 (05:21→23:46)
[2018-10-31 06:24] LABS: BASO # 0.1 K/uL (0.0-0.2); BASO % 0.9 % (0.0-2.0); EOS # 0.3 K/uL (0.0-0.7); EOS % 2.3 % (0.0-4.0); HEMOGLOBIN 10.9 g/dL (11.0-16.0); LYMPH # 2.8 K/uL (1.0-4.3); MEAN CELL VOLUME 90.8 fL (81.0-99.0); MEAN CORPUSCULAR HEMOGLOBIN 27.8 pg (27.0-31.0); MEAN CORPUSCULAR HGB CONC 30.6 g/dL (33.0-37.0); MEAN PLATELET VOLUME 11.5 fL (7.2-11.7); MONO # 1.6 K/uL (0.0-0.8); MONO % 10.8 % (0.0-10.0); NEUT # 9.8 K/uL (1.8-7.0); NRBC % 0.2 % (0.0-2.0); RBC 3.94 Mil/uL (3.80-5.20); RED CELL DISTRIBUTION WIDTH 18.5 % (11.5-14.5); WHITE BLOOD COUNT 14.7 K/uL (4.8-10.8)
[2018-10-31 06:49] LABS: ALB/GLOB RATIO 1.1 (1.0-2.1); ALBUMIN 4.1 g/dL (3.5-5.0); CALCIUM 8.5 mg/dl (8.6-10.4)
--- NOTE | 2018-10-31 08:49 | CP.PCM.PN ---
Subjective - Date & Time of Evaluation Date of Evaluation: 10/31/18 Time of Evaluation: 08:47 - Subjective Subjective: on respirator unresponsive noted involuntary movement cannot obtain ROS due to above Objective - Vital Signs/Intake and Output Vital Signs (last 24 hours): Temp Pulse Resp BP Pulse Ox 100.6 F H 101 H 19 98/48 L 100 10/31/18 06:00 10/31/18 08:00 10/31/18 08:00 10/31/18 07:44 10/31/18 08:00 Intake and Output: 10/31/18 10/31/18 06:59 18:59 Intake Total 480 80 Output Total 500 0 Balance -20 80 - Medications Medications: Current Medications Acetaminophen (Tylenol 650mg/20.3ml Solution Ud) 650 mg PO Q6 PRN PRN Reason: pain+fever Last Admin: 10/30/18 22:45 Dose: 650 mg Aspirin (Aspirin Chewable) 81 mg PO DAILY [facility] Last Admin: 10/30/18 10:52 Dose: 81 mg Epoetin Dedrick (Procrit) 10,000 unit IV [facility] Last Admin: 10/29/18 10:35 Dose: 10,000 unit Glipizide (Glucotrol) 10 mg PO Q12 [facility] Last Admin: 10/30/18 22:14 Dose: 10 mg Heparin Sodium (Porcine) (Heparin) 5,000 units SC Q12 [facility] Last Admin: 10/30/18 10:52 Dose: Not Given Hydrocortisone (Cortef) 10 mg PO DAILY [facility] Last Admin: 10/30/18 10:52 Dose: 10 mg Norepinephrine Bitartrate 4 mg (/ Sodium Chloride) 254 mls @ 15.24 mls/hr IV .[id number] PRN; Protocol PRN Reason: TITRATE PER MD ORDER Last Titration: 10/30/18 16:00 Dose: 4 mcg/min, 15.24 mls/hr Meropenem 500 mg/ Sodium (Chloride) 100 mls @ 100 mls/hr IVPB DAILY [facility]; Protocol Last Admin: 10/30/18 15:23 Dose: 100 mls/hr Vancomycin HCl 500 mg/ Sodium (Chloride) 100 mls @ 100 mls/hr IVPB [facility] [place]; Protocol Valproate Sodium 500 mg/ (Sodium Chloride) 105 mls @ 50 mls/hr IVPB ONCE ONE Stop: 10/31/18 11:05 Insulin Aspart (Novolog) 0 unit SC Q6H [facility]; Protocol Last Admin: 10/31/18 05:21 Dose: 6 units Insulin Detemir (Levemir) 40 unit SC [facility] Last Admin: 10/30/18 22:15 Dose: 40 u Levetiracetam (Keppra) 1,000 mg PO BID [facility] Last Admin: 10/30/18 18:09 Dose: 1,000 mg Levothyroxine Sodium (Synthroid) 50 mcg PO 0600 [facility] Last Admin: 10/31/18 05:11 Dose: 50 mcg Metronidazole (Flagyl) 500 mg PO Q8 [facility]; Protocol Last Admin: 10/31/18 05:10 Dose: 500 mg Pantoprazole Sodium (Protonix Susp) 40 mg PO 0600 [facility] Last Admin: 10/31/18 05:11 Dose: 40 mg Rosuvastatin Calcium (Crestor) 10 mg PO [facility] Last Admin: 10/30/18 22:09 Dose: 10 mg - Labs Labs: 10/31/18 06:09 10/31/18 06:00 PT 14.1 SECONDS (9.7-12.2) H 10/19/18 06:21 INR 1.3 10/19/18 06:21 APTT 38 SECONDS (21-34) H 10/19/18 06:21 - Constitutional Appears: Chronically Ill, Other (unresponsive) - Head Exam Head Exam: ATRAUMATIC, NORMAL INSPECTION - ENT Exam ENT Exam: Mucous Membranes Moist - Neck Exam Neck Exam: Full ROM. absent: Lymphadenopathy - Respiratory Exam Respiratory Exam: Decreased Breath Sounds. absent: Wheezes - Cardiovascular Exam Cardiovascular Exam: Tachycardia. absent: Rubs - GI/Abdominal Exam GI & Abdominal Exam: Soft. absent: Tenderness - Extremities Exam Extremities Exam: Pedal Edema Assessment and Plan - Assessment and Plan (Free Text) Assessment: VDRF ESRD decreased awakeness continue supportive care HD today poor prognosis
[2018-10-31] MEDS ORDERED: Valproate 500 MG in Sodium Chloride 0.9% 100 ML IVPB ONE (09:00)
[2018-10-31] MEDS: levETIRAcetam 100 mg/ml (5ml) Oral Syringe PO SCH ×2 (09:10→18:05)
[2018-10-31] MEDS: Acetaminophen 650mg/20.3ml solution UD PO PRN ×3 (09:10→21:58)
[2018-10-31] MEDS: Meropenem 500 MG in Sodium Chloride 0.9% 100 ML IVPB SCH (09:11)
[2018-10-31] MEDS ORDERED: (Novolog) Insulin Aspart, Recombinant 100 u/ml 10 ml vial SC SCH (09:30)
--- NOTE | 2018-10-31 10:50 | PN ---
DATE: 10/31/2018 TIME OF EVALUATION: 07:10 a.m. NEUROLOGICAL PROBLEM: Hypoperfusion syndrome with possible nonconvulsive status. PHYSICAL EXAMINATION: VITAL SIGNS: Blood pressure 114/43; mean arterial pressure of 65; respiratory rate 22, on tracheostomy; pulse rate 91. The patient is afebrile at present. The patient does have some involuntary recurrent movement of upper extremities noted, verbally nonresponsive. Both lower extremities have less movement compared to the upper extremities. However, she moves on noxious stimuli in lower extremity as well. Her MRA of the brain being reviewed with the radiologist because of the movement artifact. The brainstem infarct cannot be identified well. Her clinical presentation is probably nonconvulsive status. Her medication Keppra 1000 mg twice a day, which may not be appropriate considering her renal function, but Keppra dose cannot be increased. Empirically, I would like to add Depakote IV 500 mg twice a day to see her response. In the meantime, electroencephalogram is also recommended, which has been pending for the last more than 72-hour period. The patient's condition has been discussed with the registered nurse as well. Blu Yost MD
--- NOTE | 2018-10-31 11:12 | CP.CCUPN ---
<Dyllan Patton - Last Filed: 10/31/18 16:30> CCU Subjective - Physician Review Subjective (Free Text): PGY-1 ICU progress note for Dr Michoacano black Pt seen and examined at bedside. Patient seen to move her upper and lower extremities at times throughout the day. Does not follow commands. ROS unattainable due to patient's mental status. Critical Care Time Spent (in minutes): 45 CCU Objective - Vital Signs / Intake & Output Vital Signs (Last 4 hours): Vital Signs Temp Pulse Resp BP Pulse Ox 10/31/18 11:00 80 21 100 10/31/18 10:56 101 H 19 76/40 L 100 10/31/18 10:45 98 H 24 80/42 L 100 10/31/18 10:30 91 H 26 H 100 10/31/18 10:25 97 H 22 96/49 L 100 10/31/18 10:11 97 H 25 H 103/52 L 100 10/31/18 10:00 101.5 F H 97 H 16 100 10/31/18 09:57 97 H 17 89/51 L 100 10/31/18 09:44 96 H 23 78/44 L 99 10/31/18 09:41 95 H 17 80/42 L 99 10/31/18 09:30 95 H 23 100 10/31/18 09:00 100 H 21 100 10/31/18 08:30 100 H 25 H 100 10/31/18 08:00 101 H 19 100 10/31/18 07:44 100 H 21 98/48 L 96 10/31/18 07:40 103 H 27 H 94/49 L 98 10/31/18 07:38 100 H 24 66/46 L 98 10/31/18 07:30 108 H 23 98 Intake and Output (Last 8hrs): Intake & Output 10/30/18 10/31/18 10/31/18 22:59 06:59 14:59 Intake Total 695 320 357.5 Output Total 1600 500 0 Balance -905 -180 357.5 Weight 179 lb 10.828 oz Intake: IV 0 190 Intake, IV Amount 470 120 67.5 Left Femoral 60 120 67.5 Left Forearm 350 RIGHT PERMACATH 60 Tube Feeding 125 200 100 Other 100 Output: Urine 0 0 0 Urine, Voided 0 0 0 Stool 800 500 Urine/Stool Mix 800 - Physical Exam Head: Positive for: Atraumatic, Normocephalic Extroacular Muscles: Positive for: EOMI (dropping eyelid left) Conjunctiva: Positive for: Normal Mouth: Positive for: Dry Neck: Positive for: Other (tracheostomy in place with vent, permacath right side chest area ) Respiratory/Chest: Positive for: Decreased Breath Sounds, Other (intubated ). Negative for: Respiratory Distress, Accessory Muscle Use, Tachypneic Cardiovascular: Positive for: Regular Rate and Rhythm, Normal S1, S2 Abdomen: Positive for: Normal Bowel Sounds, Other (PEG tube in place ). Negative for: Tenderness, Distention, Rebound, Guarding Upper Extremity: Positive for: Normal Inspection. Negative for: Cyanosis, Edema Lower Extremity: Positive for: Normal Inspection. Negative for: Edema Neurological: Negative for: GCS=15, CN II-XII Intact, Speech Normal Skin: Positive for: Warm, Dry, Normal Color, Other (permacath in place, midline right upper side ) Psychiatric: Positive for: Agitated. Negative for: Alert, Oriented x 3, Normal Insight, Normal Concentration - Medications Active Medications: Active Medications Generic Name Dose Route Start Last Admin Trade Name Freq PRN Reason Stop Dose Admin Acetaminophen 650 mg 10/25/18 03:30 10/31/18 09:10 Tylenol 650mg/20.3ml Solution Ud PO 650 mg Q6 PRN Administration pain+fever Alteplase, Recombinant 2 mg 10/31/18 10:59 Cathflo 2 Mg Inj IV 10/31/18 11:00 ONCE ONE Aspirin 81 mg 10/08/18 10:00 10/31/18 09:10 Aspirin Chewable PO 81 mg DAILY JOCELYN Administration Epoetin Dedrick 10,000 unit 10/17/18 09:00 10/29/18 10:35 Procrit IV 10,000 unit MWF JOCELYN Administration Glipizide 10 mg 10/28/18 22:00 10/31/18 09:10 Glucotrol PO 10 mg Q12 JOCELYN Administration Heparin Sodium (Porcine) 5,000 units 10/15/18 10:00 10/30/18 10:52 Heparin SC Not Given Q12 JOCELYN Hydrocortisone 5 mg 10/31/18 10:00 10/31/18 10:15 Cortef PO 5 mg DAILY JOCELYN Administration Norepinephrine Bitartrate 4 mg 254 mls @ 15.24 mls/hr 10/30/18 07:25 10/31/18 09:50 / Sodium Chloride IV 6 mcg/min .[id number] PRN 22.86 mls/hr TITRATE PER MD ORDER Titration Protocol 4 MCG/MIN Meropenem 500 mg/ Sodium 100 mls @ 100 mls/hr 10/30/18 15:30 10/31/18 09:11 Chloride IVPB 100 mls/hr DAILY JOCELYN Administration Protocol Vancomycin HCl 500 mg/ Sodium 100 mls @ 100 mls/hr 10/31/18 09:00 Chloride IVPB MWF JOCELYN Protocol Insulin Aspart 0 unit 10/31/18 12:00 Novolog SC Q6H JOCELYN Protocol Insulin Detemir 40 unit 10/28/18 22:00 10/30/18 22:15 Levemir SC 40 u HS JOCELYN Administration Levetiracetam 1,000 mg 10/28/18 18:00 10/31/18 09:10 Keppra PO 1,000 mg BID JOCELYN Administration Levothyroxine Sodium 50 mcg 09/29/18 08:00 10/31/18 05:11 Synthroid PO 50 mcg 0600 JOCELYN Administration Metronidazole 500 mg 10/30/18 14:15 10/31/18 05:10 Flagyl PO 500 mg Q8 [facility] Administration Protocol Pantoprazole Sodium 40 mg 10/09/18 06:00 10/31/18 05:11 Protonix Susp PO 40 mg 0600 JOCELYN Administration Rosuvastatin Calcium 10 mg 09/30/18 22:00 10/30/18 22:09 Crestor PO 10 mg HS JOCELYN Administration - Patient Studies Lab Studies: Microbiology Studies 10/30/18 08:29 Blood Culture - Preliminary Blood NO GROWTH AFTER 24 HOURS 10/30/18 08:29 Blood Culture - Preliminary Blood NO GROWTH AFTER 24 HOURS 10/30/18 08:29 Gram Stain - Final Sputum 10/28/18 17:16 Catheter Tip Culture - Final Arm Right No Growth Lab Studies 10/31/18 10/31/18 10/31/18 Range/Units 06:09 06:00 06:00 WBC 14.7 H (4.8-10.8) K/uL RBC 3.94 (3.80-5.20) Mil/uL Hgb 10.9 L (11.0-16.0) g/dL Hct 35.7 (34.0-47.0) % MCV 90.8 (81.0-99.0) fL MCH 27.8 (27.0-31.0) pg MCHC 30.6 L (33.0-37.0) g/dL RDW 18.5 H (11.5-14.5) % Plt Count 124 L D (130-400) K/uL MPV 11.5 (7.2-11.7) fL Neut % (Auto) 67.0 (50.0-75.0) % Lymph % (Auto) 19.0 L (20.0-40.0) % Bertie % (Auto) 10.8 H (0.0-10.0) % Eos % (Auto) 2.3 (0.0-4.0) % Baso % (Auto) 0.9 (0.0-2.0) % Neut # (Auto) 9.8 H (1.8-7.0) K/uL Lymph # (Auto) 2.8 (1.0-4.3) K/uL Bertie # (Auto) 1.6 H (0.0-0.8) K/uL Eos # (Auto) 0.3 (0.0-0.7) K/uL Baso # (Auto) 0.1 (0.0-0.2) K/uL Sodium 137 (132-148) mmol/L Potassium 3.9 (3.6-5.2) mmol/L Chloride 101 (98-107) mmol/L Carbon Dioxide 17 L (22-30) mmol/L Anion Gap 23 H (10-20) BUN 46 H (7-17) mg/dL Creatinine 8.7 H* D (0.7-1.2) mg/dL Est GFR ( Amer) 5 Est GFR (Non-Af Amer) 5 POC Glucose (mg/dL) (65-110) mg/dL Random Glucose 317 H D (65-105) mg/dL Calcium 8.5 L (8.6-10.4) mg/dl Phosphorus 3.2 (2.5-4.5) mg/dL Magnesium 2.2 (1.6-2.3) mg/dL Total Bilirubin 0.6 (0.2-1.3) mg/dL AST 81 H (14-36) U/L ALT 32 (9-52) U/L Alkaline Phosphatase 96 (38-126) U/L Total Protein 7.8 (6.3-8.3) g/dL Albumin 4.1 (3.5-5.0) g/dL Globulin 3.7 (2.2-3.9) gm/dL Albumin/Globulin Ratio 1.1 (1.0-2.1) Random Vancomycin 40.0 ug/mL C. difficile Ag & Toxin (NEGATIVE) 10/31/18 10/30/18 10/30/18 Range/Units 05:18 23:45 17:30 WBC (4.8-10.8) K/uL RBC (3.80-5.20) Mil/uL Hgb (11.0-16.0) g/dL Hct (34.0-47.0) % MCV (81.0-99.0) fL MCH (27.0-31.0) pg MCHC (33.0-37.0) g/dL RDW (11.5-14.5) % Plt Count (130-400) K/uL MPV (7.2-11.7) fL Neut % (Auto) (50.0-75.0) % Lymph % (Auto) (20.0-40.0) % Bertie % (Auto) (0.0-10.0) % Eos % (Auto) (0.0-4.0) % Baso % (Auto) (0.0-2.0) % Neut # (Auto) (1.8-7.0) K/uL Lymph # (Auto) (1.0-4.3) K/uL Bertie # (Auto) (0.0-0.8) K/uL Eos # (Auto) (0.0-0.7) K/uL Baso # (Auto) (0.0-0.2) K/uL Sodium (132-148) mmol/L Potassium (3.6-5.2) mmol/L Chloride (98-107) mmol/L Carbon Dioxide (22-30) mmol/L Anion Gap (10-20) BUN (7-17) mg/dL Creatinine (0.7-1.2) mg/dL Est GFR ( Amer) Est GFR (Non-Af Amer) POC Glucose (mg/dL) 302 H 349 H 325 H (65-110) mg/dL Random Glucose (65-105) mg/dL Calcium (8.6-10.4) mg/dl Phosphorus (2.5-4.5) mg/dL Magnesium (1.6-2.3) mg/dL Total Bilirubin (0.2-1.3) mg/dL AST (14-36) U/L ALT (9-52) U/L Alkaline Phosphatase (38-126) U/L Total Protein (6.3-8.3) g/dL Albumin (3.5-5.0) g/dL Globulin (2.2-3.9) gm/dL Albumin/Globulin Ratio (1.0-2.1) Random Vancomycin ug/mL C. difficile Ag & Toxin (NEGATIVE) 10/30/18 10/30/18 10/30/18 Range/Units 14:49 14:46 11:18 WBC (4.8-10.8) K/uL RBC (3.80-5.20) Mil/uL Hgb (11.0-16.0) g/dL Hct (34.0-47.0) % MCV (81.0-99.0) fL MCH (27.0-31.0) pg MCHC (33.0-37.0) g/dL RDW (11.5-14.5) % Plt Count (130-400) K/uL MPV (7.2-11.7) fL Neut % (Auto) (50.0-75.0) % Lymph % (Auto) (20.0-40.0) % Bertie % (Auto) (0.0-10.0) % Eos % (Auto) (0.0-4.0) % Baso % (Auto) (0.0-2.0) % Neut # (Auto) (1.8-7.0) K/uL Lymph # (Auto) (1.0-4.3) K/uL Bertie # (Auto) (0.0-0.8) K/uL Eos # (Auto) (0.0-0.7) K/uL Baso # (Auto) (0.0-0.2) K/uL Sodium (132-148) mmol/L Potassium (3.6-5.2) mmol/L Chloride (98-107) mmol/L Carbon Dioxide (22-30) mmol/L Anion Gap (10-20) BUN (7-17) mg/dL Creatinine (0.7-1.2) mg/dL Est GFR ( Amer) Est GFR (Non-Af Amer) POC Glucose (mg/dL) 266 H (65-110) mg/dL Random Glucose (65-105) mg/dL Calcium (8.6-10.4) mg/dl Phosphorus (2.5-4.5) mg/dL Magnesium (1.6-2.3) mg/dL Total Bilirubin (0.2-1.3) mg/dL AST (14-36) U/L ALT (9-52) U/L Alkaline Phosphatase (38-126) U/L Total Protein (6.3-8.3) g/dL Albumin (3.5-5.0) g/dL Globulin (2.2-3.9) gm/dL Albumin/Globulin Ratio (1.0-2.1) Random Vancomycin 43.4 ug/mL C. difficile Ag & Toxin Negative (NEGATIVE) Laboratory Results - last 24 hr 10/30/18 10/30/18 10/30/18 11:18 14:46 14:49 WBC RBC Hgb Hct MCV MCH MCHC RDW Plt Count MPV Neut % (Auto) Lymph % (Auto) Bertie % (Auto) Eos % (Auto) Baso % (Auto) Neut # (Auto) Lymph # (Auto) Bertie # (Auto) Eos # (Auto) Baso # (Auto) Sodium Potassium Chloride Carbon Dioxide Anion Gap BUN Creatinine Est GFR ( Amer) Est GFR (Non-Af Amer) POC Glucose (mg/dL) 266 H Random Glucose Calcium Phosphorus Magnesium Total Bilirubin AST ALT Alkaline Phosphatase Total Protein Albumin Globulin Albumin/Globulin Ratio Random Vancomycin 43.4 C. difficile Ag & Toxin Negative 10/30/18 10/30/18 10/31/18 17:30 23:45 05:18 WBC RBC Hgb Hct MCV MCH MCHC RDW Plt Count MPV Neut % (Auto) Lymph % (Auto) Bertie % (Auto) Eos % (Auto) Baso % (Auto) Neut # (Auto) Lymph # (Auto) Bertie # (Auto) Eos # (Auto) Baso # (Auto) Sodium Potassium Chloride Carbon Dioxide Anion Gap BUN Creatinine Est GFR ( Amer) Est GFR (Non-Af Amer) POC Glucose (mg/dL) 325 H 349 H 302 H Random Glucose Calcium Phosphorus Magnesium Total Bilirubin AST ALT Alkaline Phosphatase Total Protein Albumin Globulin Albumin/Globulin Ratio Random Vancomycin C. difficile Ag & Toxin 10/31/18 10/31/18 10/31/18 06:00 06:00 06:09 WBC 14.7 H RBC 3.94 Hgb 10.9 L Hct 35.7 MCV 90.8 MCH 27.8 MCHC 30.6 L RDW 18.5 H Plt Count 124 L D MPV 11.5 Neut % (Auto) 67.0 Lymph % (Auto) 19.0 L Bertie % (Auto) 10.8 H Eos % (Auto) 2.3 Baso % (Auto) 0.9 Neut # (Auto) 9.8 H Lymph # (Auto) 2.8 Bertie # (Auto) 1.6 H Eos # (Auto) 0.3 Baso # (Auto) 0.1 Sodium 137 Potassium 3.9 Chloride 101 Carbon Dioxide 17 L Anion Gap 23 H BUN 46 H Creatinine 8.7 H* D Est GFR ( Amer) 5 Est GFR (Non-Af Amer) 5 POC Glucose (mg/dL) Random Glucose 317 H D Calcium 8.5 L Phosphorus 3.2 Magnesium 2.2 Total Bilirubin 0.6 AST 81 H ALT 32 Alkaline Phosphatase 96 Total Protein 7.8 Albumin 4.1 Globulin 3.7 Albumin/Globulin Ratio 1.1 Random Vancomycin 40.0 C. difficile Ag & Toxin Radiology Impressions: Radiology Impressions Chest X-Ray 10/30/18 06:00 IMPRESSION: No active pulmonary disease. No significant interval change compared to the prior examination(s). Chest/Abdomen/Pelvis CT 10/30/18 07:39 Impression: Fluid and gas filled distended rectum versus perirectal abscess. Evidence of anastomotic bowel suture material and/or rectal tube/packing material. Correlate clinically. Tracheostomy tube. Right IJ approach dialysis catheter with tips extending to the right atrium and right ventricle; consider repositioning if indicated. Percutaneous gastrostomy tube. Focal prominence of the pancreas at the level the pancreatic head measuring approximately 3.0 x 3.0 cm (series 3, image 119) may be the result of normal pancreatic tissue in the setting of surrounding pancreatic atrophy however pancreatic neoplasm is not excluded. Follow-up CT with IV contrast recommended if indicated. Thick-walled under distended urinary bladder. Recommend correlation with urinalysis. Cardiomegaly. Dense coronary artery calcifications. Atherosclerotic calcifications of the aorta. Trace pericardial fluid. Bibasilar atelectasis/infiltrates. Percutaneous gastrostomy tube. The stomach is nondistended. Gastric antrum appears collapsed however wall thickening is not excluded. Correlate clinically for possibility of infectious or inflammatory etiologies. 1.6 cm right adnexal soft tissue, possibly ovary. Uterus is absent consistent with hysterectomy. Correlate clinically. Additional incidental findings as above. Findings discussed with Dr. Amaya On 10/30/18 at 12:27 p.m. Fingerstick Blood Sugar Results: 302 Assessment/Plan - Assessment and Plan (Free Text) Plan: Patient is a 72 year old female with PMHx of CKD, CHF, CAD s/p stents, pituitary adenoma a/p resection, DM, who was admitted for respiratory and cardiac arrest s/p permacath placement and AVF on 10/05; possible AMS due to anoxic brain injury, now on HD MWF, tracheostomy on 10/18/17, PEG tube placement 10/23/18. Patient became hypotensive overnight and upgraded to ICU on 10/30; catheter removed yesterday, trialysis lumen inserted yesterday for HD treatment. Neuro - Intubated - continue Keppra 1000mg BID - Valproate started per Neuro - f/u EEG - f/u Neuro recs Cardiac - Hypotensive 2/2 to possible sepsis - Levophed drip at 6mcg - continue to monitor vitals - continue Crestor 10mg, ASA 81mg Pulm - Intubated, vent settings PRVC 14/450/5/35 - CXR 10/30: No active pulmonary disease GI - PEG tube in place - Tube feeds - as per dietary change solution to Osmolyte 1.2 initial rate 20, increase 10, goal of 60ml - protonix ppx - CT abd/pelvis - fluid and gas filled distended rectum versus perirectal abscess. Evidence of anastomotic bowel suture material and/or rectal t ube/packing material. - follow up surgery recs Renal -dialysis today, HD MWF -Permacath removed, trialysis cath inserted 10/30 - continue Procrit Endo - Hx of Hypothyroidism, continue levothyroxine 50mg - Hx of DM, continue Glipizide - ISS increased to high from moderate - decreased Cortef to 5mg Heme - monitor CBC - hold Heparin SC ID - Hypotensive 2/2 possible sepsis - Febrile, Tmax 104.2F - WBC 14.7 today, continue to monitor - CT abdomen/pelvis 10/30: fluid and gas filled distended rectum versus perirectal abscess. Evidence of anastomotic bowel suture material and/or rectal tube/packing material.- follow up surg recs - Permacath possible source of infection, removed by surgery 10/30 - continue Abx: Meropenem, Flagyl - Vanc trough 40, Vanco on hold - f/u blood cx and sputum cx - c.diff negative PPx - Protonix for GI ppx - DVT ppx: SCDs - Tylenol PRN for fever Plan discussed with Dr. Michoacano Patton, PGY-1 - Date & Time Date: 10/31/18 Time: 09:00 <Eliseo Ríos S - Last Filed: 10/31/18 17:49> CCU Objective - Vital Signs / Intake & Output Vital Signs (Last 4 hours): Vital Signs Temp Pulse Resp BP Pulse Ox 10/31/18 17:00 100 H 26 H 100 10/31/18 16:30 99 H 27 H 100 10/31/18 16:23 98 H 26 H 111/52 L 100 10/31/18 16:00 92 H 23 100 10/31/18 15:40 81/56 L 10/31/18 15:30 104 F H 96 H 17 85 L 10/31/18 15:25 90 20 81/56 L 94 L 10/31/18 15:00 87 18 100 10/31/18 14:30 95 H 22 100 10/31/18 14:22 95 H 24 88/52 L 100 10/31/18 14:05 95 H 19 91/45 L 100 10/31/18 14:00 96 H 19 100 Intake and Output (Last 8hrs): Intake & Output 10/31/18 10/31/18 10/31/18 06:59 14:59 22:59 Intake Total 320 582.5 97.5 Output Total 500 0 Balance -180 582.5 97.5 Weight 179 lb 10.828 oz Intake: IV 250 Intake, IV Amount 120 157.5 67.5 Left Femoral 120 157.5 67.5 Tube Feeding 200 175 30 Output: Urine 0 0 Urine, Voided 0 0 Stool 500 - Medications Active Medications: Active Medications Generic Name Dose Route Start Last Admin Trade Name Freq PRN Reason Stop Dose Admin Acetaminophen 650 mg 10/25/18 03:30 10/31/18 15:40 Tylenol 650mg/20.3ml Solution Ud PO 650 mg Q6 PRN Administration pain+fever Aspirin 81 mg 10/08/18 10:00 10/31/18 09:10 Aspirin Chewable PO 81 mg DAILY [facility] Administration Epoetin Dedrick 10,000 unit 10/17/18 09:00 10/31/18 13:03 Procrit IV 10,000 unit [facility] [place] [facility] Administration Glipizide 10 mg 10/28/18 22:00 10/31/18 09:10 Glucotrol PO 10 mg Q12 [facility] Administration Heparin Sodium (Porcine) 5,000 units 10/15/18 10:00 10/30/18 10:52 Heparin SC Not Given Q12 [facility] Hydrocortisone 5 mg 10/31/18 10:00 10/31/18 10:15 Cortef PO 5 mg DAILY [facility] Administration Norepinephrine Bitartrate 4 mg 254 mls @ 15.24 mls/hr 10/30/18 07:25 10/31/18 15:40 / Sodium Chloride IV 6 mcg/min .[id number] PRN 22.86 mls/hr TITRATE PER MD ORDER Administration Protocol 4 MCG/MIN Meropenem 500 mg/ Sodium 100 mls @ 100 mls/hr 10/30/18 15:30 10/31/18 09:11 Chloride IVPB 100 mls/hr DAILY [facility] Administration Protocol Vancomycin HCl 500 mg/ Sodium 100 mls @ 100 mls/hr 10/31/18 09:00 10/31/18 12:44 Chloride IVPB Not Given [facility] Protocol Insulin Aspart 0 unit 10/31/18 12:00 10/31/18 12:40 Novolog SC 10 u Q6H [facility] Administration Protocol Insulin Detemir 40 unit 10/28/18 22:00 10/30/18 22:15 Levemir SC 40 u HS [facility] Administration Levetiracetam 1,000 mg 10/28/18 18:00 10/31/18 09:10 Keppra PO 1,000 mg BID JOCELYN Administration Levothyroxine Sodium 50 mcg 09/29/18 08:00 10/31/18 05:11 Synthroid PO 50 mcg 0600 JOCELYN Administration Metronidazole 500 mg 10/30/18 14:15 10/31/18 14:01 Flagyl PO 500 mg Q8 JOCELYN Administration Protocol Pantoprazole Sodium 40 mg 10/09/18 06:00 10/31/18 05:11 Protonix Susp PO 40 mg 0600 JOCELYN Administration Rosuvastatin Calcium 10 mg 09/30/18 22:00 10/30/18 22:09 Crestor PO 10 mg HS JOCELYN Administration - Patient Studies Lab Studies: Microbiology Studies 10/30/18 08:29 Blood Culture - Preliminary Blood NO GROWTH AFTER 24 HOURS 10/30/18 08:29 Blood Culture - Preliminary Blood NO GROWTH AFTER 24 HOURS 10/30/18 08:29 Gram Stain - Final Sputum Lab Studies 10/31/18 10/31/18 10/31/18 Range/Units 11:35 06:09 06:00 WBC 14.7 H (4.8-10.8) K/uL RBC 3.94 (3.80-5.20) Mil/uL Hgb 10.9 L (11.0-16.0) g/dL Hct 35.7 (34.0-47.0) % MCV 90.8 (81.0-99.0) fL MCH 27.8 (27.0-31.0) pg MCHC 30.6 L (33.0-37.0) g/dL RDW 18.5 H (11.5-14.5) % Plt Count 124 L D (130-400) K/uL MPV 11.5 (7.2-11.7) fL Neut % (Auto) 67.0 (50.0-75.0) % Lymph % (Auto) 19.0 L (20.0-40.0) % Bertie % (Auto) 10.8 H (0.0-10.0) % Eos % (Auto) 2.3 (0.0-4.0) % Baso % (Auto) 0.9 (0.0-2.0) % Neut # (Auto) 9.8 H (1.8-7.0) K/uL Lymph # (Auto) 2.8 (1.0-4.3) K/uL Bertie # (Auto) 1.6 H (0.0-0.8) K/uL Eos # (Auto) 0.3 (0.0-0.7) K/uL Baso # (Auto) 0.1 (0.0-0.2) K/uL Sodium 137 (132-148) mmol/L Potassium 3.9 (3.6-5.2) mmol/L Chloride 101 (98-107) mmol/L Carbon Dioxide 17 L (22-30) mmol/L Anion Gap 23 H (10-20) BUN 46 H (7-17) mg/dL Creatinine 8.7 H* D (0.7-1.2) mg/dL Est GFR ( Amer) 5 Est GFR (Non-Af Amer) 5 POC Glucose (mg/dL) 373 H (65-110) mg/dL Random Glucose 317 H D (65-105) mg/dL Calcium 8.5 L (8.6-10.4) mg/dl Phosphorus 3.2 (2.5-4.5) mg/dL Magnesium 2.2 (1.6-2.3) mg/dL Total Bilirubin 0.6 (0.2-1.3) mg/dL AST 81 H (14-36) U/L ALT 32 (9-52) U/L Alkaline Phosphatase 96 (38-126) U/L Total Protein 7.8 (6.3-8.3) g/dL Albumin 4.1 (3.5-5.0) g/dL Globulin 3.7 (2.2-3.9) gm/dL Albumin/Globulin Ratio 1.1 (1.0-2.1) Random Vancomycin ug/mL 10/31/18 10/31/18 10/30/18 Range/Units 06:00 05:18 23:45 WBC (4.8-10.8) K/uL RBC (3.80-5.20) Mil/uL Hgb (11.0-16.0) g/dL Hct (34.0-47.0) % MCV (81.0-99.0) fL MCH (27.0-31.0) pg MCHC (33.0-37.0) g/dL RDW (11.5-14.5) % Plt Count (130-400) K/uL MPV (7.2-11.7) fL Neut % (Auto) (50.0-75.0) % Lymph % (Auto) (20.0-40.0) % Bertie % (Auto) (0.0-10.0) % Eos % (Auto) (0.0-4.0) % Baso % (Auto) (0.0-2.0) % Neut # (Auto) (1.8-7.0) K/uL Lymph # (Auto) (1.0-4.3) K/uL Bertie # (Auto) (0.0-0.8) K/uL Eos # (Auto) (0.0-0.7) K/uL Baso # (Auto) (0.0-0.2) K/uL Sodium (132-148) mmol/L Potassium (3.6-5.2) mmol/L Chloride (98-107) mmol/L Carbon Dioxide (22-30) mmol/L Anion Gap (10-20) BUN (7-17) mg/dL Creatinine (0.7-1.2) mg/dL Est GFR ( Amer) Est GFR (Non-Af Amer) POC Glucose (mg/dL) 302 H 349 H (65-110) mg/dL Random Glucose (65-105) mg/dL Calcium (8.6-10.4) mg/dl Phosphorus (2.5-4.5) mg/dL Magnesium (1.6-2.3) mg/dL Total Bilirubin (0.2-1.3) mg/dL AST (14-36) U/L ALT (9-52) U/L Alkaline Phosphatase (38-126) U/L Total Protein (6.3-8.3) g/dL Albumin (3.5-5.0) g/dL Globulin (2.2-3.9) gm/dL Albumin/Globulin Ratio (1.0-2.1) Random Vancomycin 40.0 ug/mL Laboratory Results - last 24 hr 10/30/18 10/31/18 10/31/18 23:45 05:18 06:00 WBC RBC Hgb Hct MCV MCH MCHC RDW Plt Count MPV Neut % (Auto) Lymph % (Auto) Bertie % (Auto) Eos % (Auto) Baso % (Auto) Neut # (Auto) Lymph # (Auto) Bertie # (Auto) Eos # (Auto) Baso # (Auto) Sodium Potassium Chloride Carbon Dioxide Anion Gap BUN Creatinine Est GFR ( Amer) Est GFR (Non-Af Amer) POC Glucose (mg/dL) 349 H 302 H Random Glucose Calcium Phosphorus Magnesium Total Bilirubin AST ALT Alkaline Phosphatase Total Protein Albumin Globulin Albumin/Globulin Ratio Random Vancomycin 40.0 10/31/18 10/31/18 10/31/18 06:00 06:09 11:35 WBC 14.7 H RBC 3.94 Hgb 10.9 L Hct 35.7 MCV 90.8 MCH 27.8 MCHC 30.6 L RDW 18.5 H Plt Count 124 L D MPV 11.5 Neut % (Auto) 67.0 Lymph % (Auto) 19.0 L Bertie % (Auto) 10.8 H Eos % (Auto) 2.3 Baso % (Auto) 0.9 Neut # (Auto) 9.8 H Lymph # (Auto) 2.8 Bertie # (Auto) 1.6 H Eos # (Auto) 0.3 Baso # (Auto) 0.1 Sodium 137 Potassium 3.9 Chloride 101 Carbon Dioxide 17 L Anion Gap 23 H BUN 46 H Creatinine 8.7 H* D Est GFR ( Amer) 5 Est GFR (Non-Af Amer) 5 POC Glucose (mg/dL) 373 H Random Glucose 317 H D Calcium 8.5 L Phosphorus 3.2 Magnesium 2.2 Total Bilirubin 0.6 AST 81 H ALT 32 Alkaline Phosphatase 96 Total Protein 7.8 Albumin 4.1 Globulin 3.7 Albumin/Globulin Ratio 1.1 Random Vancomycin Attending/Attestation - Attestation I have personally seen and examined this patient.: Yes I have fully participated in the care of the patient.: Yes I have reviewed all pertinent clinical information: Yes Notes (Text): 10/31/18 17:47 Patient seen and examined in the intensive care unit. Case discussed with housestaff in the morning rounds. Status post tracheostomy on ventilator support No change in mental status On low-dose pressors for hypotension Remained febrile overnight Continue antibiotics as per infectious disease Dialysis catheter inserted yesterday and left femoral vein under aseptic condi tions Patient was able to get 1-1/2-hour of dialysis Consider permacath placement
[2018-10-31] MEDS: Epoetin Alfa 10,000 unit/ml Dialysis IV SCH ×2 (12:43→13:03)
--- NOTE | 2018-10-31 18:19 | PCM.PROC ---
Procedures Attestation:: I certify that I have explained the specified Operation(s) or Procedure(s), risks, benefits and reasonable alternatives to the Patient and/or other person responsible. The opportunity was given to ask questions and all questions answered - Central Line Placement Left Hemodialysis Access Aseptic technique was employed throughout the procedure: Hand Hygiene done prior to procedure, Full sterile barriers (mask, hair cover, sterile gown, sterile gloves), Full body sterile drape, Chloraprep Antiseptic: 2 minute prep for Femoral CVP Time Out Performed: Yes Pt. Placed on Pulse Ox Monitor: Yes Central Line Prep: Chlorhexidine-Alcohol Combination Local Anesthesia Used: Lidocaine 1% Amount of Anesthesia Used (mls): 3 Ultrasound Used for Placement: No Central Line Lumen Inserted: triple Central Line Length: 20 cm Post Procedure: Sutured in Place, Good Blood Return, All Ports Aspirated, Flushed, Capped, Sterile Dressing Applied Post procedure dressing: Chlorhexidine disc (Biopatch) Post Procedure X-Ray: No Patient Tolerated Procedure: Well
--- NOTE | 2018-10-31 21:02 | CP.PCM.PN ---
Subjective - Date & Time of Evaluation Date of Evaluation: 10/31/18 Time of Evaluation: 21:01 - Subjective Subjective: Patient again this morning had a fever. Episodes of high fever noted. So far the cultures are negative. Yesterday permanent hemodialysis catheter was removed. Patient has a temporary hemodialysis catheter in the right groin which is not working well. Patient is not responding well, but she is moving the upper extremities. Poor prognosis noted. We will continue the current treatment. Possible hemodialysis catheter placement in the morning if patient is stable. Patient is on multiple antibiotic to cover broad-spectrum. Objective - Vital Signs/Intake and Output Vital Signs (last 24 hours): Temp Pulse Resp BP Pulse Ox 103 F H 96 H 17 99/44 L 100 10/31/18 17:00 10/31/18 19:00 10/31/18 19:00 10/31/18 18:23 10/31/18 19:00 Intake and Output: 10/31/18 11/01/18 18:59 06:59 Intake Total 732.5 155.3 Output Total 300 Balance 432.5 155.3 - Medications Medications: Current Medications Acetaminophen (Tylenol 650mg/20.3ml Solution Ud) 650 mg PO Q6 PRN PRN Reason: pain+fever Last Admin: 10/31/18 15:40 Dose: 650 mg Aspirin (Aspirin Chewable) 81 mg PO DAILY [facility] Last Admin: 10/31/18 09:10 Dose: 81 mg Epoetin Dedrick (Procrit) 10,000 unit IV MWF [facility] Last Admin: 10/31/18 13:03 Dose: 10,000 unit Glipizide (Glucotrol) 10 mg PO Q12 [facility] Last Admin: 10/31/18 09:10 Dose: 10 mg Heparin Sodium (Porcine) (Heparin) 5,000 units SC Q12 [facility] Last Admin: 10/30/18 10:52 Dose: Not Given Hydrocortisone (Cortef) 5 mg PO DAILY [facility] Last Admin: 10/31/18 10:15 Dose: 5 mg Norepinephrine Bitartrate 4 mg (/ Sodium Chloride) 254 mls @ 15.24 mls/hr IV .[id number] PRN; Protocol PRN Reason: TITRATE PER MD ORDER Last Titration: 10/31/18 19:34 Dose: 8 mcg/min, 30.48 mls/hr Meropenem 500 mg/ Sodium (Chloride) 100 mls @ 100 mls/hr IVPB DAILY [facility]; Protocol Last Admin: 10/31/18 09:11 Dose: 100 mls/hr Vancomycin HCl 500 mg/ Sodium (Chloride) 100 mls @ 100 mls/hr IVPB MWF [facility]; Protocol Last Admin: 10/31/18 12:44 Dose: Not Given Insulin Aspart (Novolog) 0 unit SC Q6H [facility]; Protocol Last Admin: 10/31/18 18:05 Dose: 10 u Insulin Detemir (Levemir) 40 unit SC [facility] Last Admin: 10/30/18 22:15 Dose: 40 u Levetiracetam (Keppra) 1,000 mg PO BID [facility] Last Admin: 10/31/18 18:05 Dose: 1,000 mg Levothyroxine Sodium (Synthroid) 50 mcg PO 0600 [facility] Last Admin: 10/31/18 05:11 Dose: 50 mcg Metronidazole (Flagyl) 500 mg PO Q8 [facility]; Protocol Last Admin: 10/31/18 14:01 Dose: 500 mg Pantoprazole Sodium (Protonix Susp) 40 mg PO 0600 [facility] Last Admin: 10/31/18 05:11 Dose: 40 mg Rosuvastatin Calcium (Crestor) 10 mg PO [facility] Last Admin: 10/30/18 22:09 Dose: 10 mg Saccharomyces Boulardii (Florastor) 250 mg PO TID [facility] - Labs Labs: 10/31/18 06:09 10/31/18 06:00 PT 14.1 SECONDS (9.7-12.2) H 10/19/18 06:21 INR 1.3 10/19/18 06:21 APTT 38 SECONDS (21-34) H 10/19/18 06:21 Assessment and Plan (1) Acute on chronic renal failure Status: Acute (2) Diabetic nephropathy associated with type 2 diabetes mellitus Status: Acute (3) Uremia, acute Status: Acute
[2018-10-31] MEDS: Insulin Detemir 100 units/ml Vial (Levemir) SC SCH (21:58)
--- NOTE | 2018-10-31 22:22 | CP.PCM.PN ---
Subjective - Date & Time of Evaluation Date of Evaluation: 10/30/18 Time of Evaluation: 16:15 - Subjective Subjective: Patient seen and evaluated this am On Ventilator Physical Examination - Head Exam Head Exam: ATRAUMATIC, NORMAL INSPECTION - Eye Exam Eye Exam: EOMI, Normal appearance, PERRL. absent: Periorbital tenderness Pupil Exam: NORMAL ACCOMODATION - ENT Exam ENT Exam: Mucous Membranes Moist, Normal Oropharynx - Respiratory Exam Respiratory Exam: Clear to Ausculation Bilateral. absent: Prolonged Expiratory Phase, Respiratory Distress - Cardiovascular Exam Cardiovascular Exam: REGULAR RHYTHM, +S1, +S2. absent: Rubs - GI/Abdominal Exam GI & Abdominal Exam: Soft, Normal Bowel Sounds. absent: Hyperactive Bowel Sounds - Extremities Exam Extremities Exam: absent: Pedal Edema - Back Exam Back Exam: NORMAL INSPECTION. absent: CVA tenderness (R), paraspinal tenderness - Neurological Exam Neurological Exam: Altered - Psychiatric Exam Psychiatric exam: Agitated, Normal Affect, Normal Mood - Skin Skin Exam: Dry Assessment and Plan - Assessment and Plan (Free Text) Assessment: 72 year old female with past medical history of CAD, CHF, HTN, HLD, pituitary adenoma, is being seen s/p respiratory arrest during AV fistula placement surgery. s/p permacath on 10-11-18; possible AMS due to anoxic brain injury, now on HD MWF, tracheostomy done on 10/18/17, planning for PEG placement by GI today. Plan: Respiratory failure - Currently intubated and sedated. Management per primary care team - Completed hypothermic protocol -Bedside PEG placement completed today. Medications: Levetiracetam 420mls/hrIVPB Q12H MIR MRSA in trach -Continue Cefepime 1gm ivpb daily -Continue Vancomycin 1gm ivpb mwf Anoxic brain injury -Pending repeat MRI at [place]. Patient remains agigtated and unable to go for imaging at this time. HTN -Lopressor 12.5mg NG BID MIR HLD -Continue Rosuvastatin 10mg PO HS MIR CAD -Continue Aspirin 81mg PO Daily MIR DM -Levemir 30UNIT sc q12 mir Hypothyroidism -Continue Synthroid 50mcg PO 0600 MIR CKD on HD - S/p right permacath placed on 10/11 -Procrit 10,000 unit IV MWF ppx -Protonix -Heparin Objective - Vital Signs/Intake and Output Vital Signs (last 24 hours): Temp Pulse Resp BP Pulse Ox 102.7 F H 98 H 28 H 121/59 L 100 10/31/18 21:58 10/31/18 21:22 10/31/18 21:22 10/31/18 21:22 10/31/18 21:22 Intake and Output: 10/31/18 11/01/18 18:59 06:59 Intake Total 732.5 245.3 Output Total 300 500 Balance 432.5 -254.7 - Medications Medications: Current Medications Acetaminophen (Tylenol 650mg/20.3ml Solution Ud) 650 mg PO Q6 PRN PRN Reason: pain+fever Last Admin: 10/31/18 21:58 Dose: 650 mg Aspirin (Aspirin Chewable) 81 mg PO DAILY [facility] Last Admin: 10/31/18 09:10 Dose: 81 mg Epoetin Dedrick (Procrit) 10,000 unit IV MWF [facility] Last Admin: 10/31/18 13:03 Dose: 10,000 unit Glipizide (Glucotrol) 10 mg PO Q12 [facility] Last Admin: 10/31/18 21:58 Dose: 10 mg Heparin Sodium (Porcine) (Heparin) 5,000 units SC Q12 [facility] Last Admin: 10/30/18 10:52 Dose: Not Given Hydrocortisone (Cortef) 5 mg PO DAILY [facility] Last Admin: 10/31/18 10:15 Dose: 5 mg Norepinephrine Bitartrate 4 mg (/ Sodium Chloride) 254 mls @ 15.24 mls/hr IV .[id number] PRN; Protocol PRN Reason: TITRATE PER MD ORDER Last Titration: 10/31/18 19:34 Dose: 8 mcg/min, 30.48 mls/hr Meropenem 500 mg/ Sodium (Chloride) 100 mls @ 100 mls/hr IVPB DAILY [facility]; Protocol Last Admin: 10/31/18 09:11 Dose: 100 mls/hr Vancomycin HCl 500 mg/ Sodium (Chloride) 100 mls @ 100 mls/hr IVPB MWF [facility]; Protocol Last Admin: 10/31/18 12:44 Dose: Not Given Insulin Aspart (Novolog) 0 unit SC Q6H [facility]; Protocol Last Admin: 10/31/18 18:05 Dose: 10 u Insulin Detemir (Levemir) 40 unit SC HS [facility] Last Admin: 10/31/18 21:58 Dose: 40 u Levetiracetam (Keppra) 1,000 mg PO BID [facility] Last Admin: 10/31/18 18:05 Dose: 1,000 mg Levothyroxine Sodium (Synthroid) 50 mcg PO 0600 [facility] Last Admin: 10/31/18 05:11 Dose: 50 mcg Metronidazole (Flagyl) 500 mg PO Q8 [facility]; Protocol Last Admin: 10/31/18 21:58 Dose: 500 mg Pantoprazole Sodium (Protonix Susp) 40 mg PO 0600 [facility] Last Admin: 10/31/18 05:11 Dose: 40 mg Rosuvastatin Calcium (Crestor) 10 mg PO [facility] Last Admin: 10/31/18 22:01 Dose: 10 mg Saccharomyces Boulardii (Florastor) 250 mg PO TID [facility] - Labs Labs: 10/31/18 06:09 10/31/18 06:00 PT 14.1 SECONDS (9.7-12.2) H 10/19/18 06:21 INR 1.3 10/19/18 06:21 APTT 38 SECONDS (21-34) H 10/19/18 06:21
--- NOTE | 2018-10-31 22:23 | CP.PCM.PN ---
Subjective - Date & Time of Evaluation Date of Evaluation: 10/31/18 Time of Evaluation: 16:20 - Subjective Subjective: Patient seen and evaluated this am On Ventilator Physical Examination - Head Exam Head Exam: ATRAUMATIC, NORMAL INSPECTION - Eye Exam Eye Exam: EOMI, Normal appearance, PERRL. absent: Periorbital tenderness Pupil Exam: NORMAL ACCOMODATION - ENT Exam ENT Exam: Mucous Membranes Moist, Normal Oropharynx - Respiratory Exam Respiratory Exam: Clear to Ausculation Bilateral. absent: Prolonged Expiratory Phase, Respiratory Distress - Cardiovascular Exam Cardiovascular Exam: REGULAR RHYTHM, +S1, +S2. absent: Rubs - GI/Abdominal Exam GI & Abdominal Exam: Soft, Normal Bowel Sounds. absent: Hyperactive Bowel Sounds - Extremities Exam Extremities Exam: absent: Pedal Edema - Back Exam Back Exam: NORMAL INSPECTION. absent: CVA tenderness (R), paraspinal tenderness - Neurological Exam Neurological Exam: Altered - Psychiatric Exam Psychiatric exam: Agitated, Normal Affect, Normal Mood - Skin Skin Exam: Dry Assessment and Plan - Assessment and Plan (Free Text) Assessment: 72 year old female with past medical history of CAD, CHF, HTN, HLD, pituitary adenoma, is being seen s/p respiratory arrest during AV fistula placement surgery. s/p permacath on 10-11-18; possible AMS due to anoxic brain injury, now on HD MWF, tracheostomy done on 10/18/17, planning for PEG placement by GI today. Plan: Respiratory failure - Currently intubated and sedated. Management per primary care team - Completed hypothermic protocol -Bedside PEG placement completed today. Medications: Levetiracetam 420mls/hrIVPB Q12H MIR MRSA in trach -Continue Cefepime 1gm ivpb daily -Continue Vancomycin 1gm ivpb mwf Anoxic brain injury -Pending repeat MRI at [place]. Patient remains agigtated and unable to go for imaging at this time. HTN -Lopressor 12.5mg NG BID MIR HLD -Continue Rosuvastatin 10mg PO HS MIR CAD -Continue Aspirin 81mg PO Daily MIR DM -Levemir 30UNIT sc q12 mir Hypothyroidism -Continue Synthroid 50mcg PO 0600 MIR CKD on HD - S/p right permacath placed on 10/11 -Procrit 10,000 unit IV MWF ppx -Protonix -Heparin Objective - Vital Signs/Intake and Output Vital Signs (last 24 hours): Temp Pulse Resp BP Pulse Ox 102.7 F H 98 H 28 H 121/59 L 100 10/31/18 21:58 10/31/18 21:22 10/31/18 21:22 10/31/18 21:22 10/31/18 21:22 Intake and Output: 10/31/18 11/01/18 18:59 06:59 Intake Total 732.5 245.3 Output Total 300 500 Balance 432.5 -254.7 - Medications Medications: Current Medications Acetaminophen (Tylenol 650mg/20.3ml Solution Ud) 650 mg PO Q6 PRN PRN Reason: pain+fever Last Admin: 10/31/18 21:58 Dose: 650 mg Aspirin (Aspirin Chewable) 81 mg PO DAILY [facility] Last Admin: 10/31/18 09:10 Dose: 81 mg Epoetin Dedrick (Procrit) 10,000 unit IV MWF [facility] Last Admin: 10/31/18 13:03 Dose: 10,000 unit Glipizide (Glucotrol) 10 mg PO Q12 [facility] Last Admin: 10/31/18 21:58 Dose: 10 mg Heparin Sodium (Porcine) (Heparin) 5,000 units SC Q12 [facility] Last Admin: 10/30/18 10:52 Dose: Not Given Hydrocortisone (Cortef) 5 mg PO DAILY [facility] Last Admin: 10/31/18 10:15 Dose: 5 mg Norepinephrine Bitartrate 4 mg (/ Sodium Chloride) 254 mls @ 15.24 mls/hr IV .[id number] PRN; Protocol PRN Reason: TITRATE PER MD ORDER Last Titration: 10/31/18 19:34 Dose: 8 mcg/min, 30.48 mls/hr Meropenem 500 mg/ Sodium (Chloride) 100 mls @ 100 mls/hr IVPB DAILY [facility]; Protocol Last Admin: 10/31/18 09:11 Dose: 100 mls/hr Vancomycin HCl 500 mg/ Sodium (Chloride) 100 mls @ 100 mls/hr IVPB MWF [facility]; Protocol Last Admin: 10/31/18 12:44 Dose: Not Given Insulin Aspart (Novolog) 0 unit SC Q6H [facility]; Protocol Last Admin: 10/31/18 18:05 Dose: 10 u Insulin Detemir (Levemir) 40 unit SC HS [facility] Last Admin: 10/31/18 21:58 Dose: 40 u Levetiracetam (Keppra) 1,000 mg PO BID [facility] Last Admin: 10/31/18 18:05 Dose: 1,000 mg Levothyroxine Sodium (Synthroid) 50 mcg PO 0600 [facility] Last Admin: 10/31/18 05:11 Dose: 50 mcg Metronidazole (Flagyl) 500 mg PO Q8 [facility]; Protocol Last Admin: 10/31/18 21:58 Dose: 500 mg Pantoprazole Sodium (Protonix Susp) 40 mg PO 0600 [facility] Last Admin: 10/31/18 05:11 Dose: 40 mg Rosuvastatin Calcium (Crestor) 10 mg PO [facility] Last Admin: 10/31/18 22:01 Dose: 10 mg Saccharomyces Boulardii (Florastor) 250 mg PO TID [facility] - Labs Labs: 10/31/18 06:09 10/31/18 06:00 PT 14.1 SECONDS (9.7-12.2) H 10/19/18 06:21 INR 1.3 10/19/18 06:21 APTT 38 SECONDS (21-34) H 10/19/18 06:21
--- NOTE | 2018-11-01 00:37 | PN ---
DATE: 10/31/2018 SUBJECTIVE: The patient remains with anoxic encephalopathy. Her daughters were at the bedside. She is on a trach vent. Patient had a high-grade fever last night yesterday. Cultures have been negative. We did a CT scan and had a temporary catheter which was placed on the groin, it is not working, and she is not responding. She is moving all her extremities. However, more of her upper extremities, which she does have involuntary movements, and she needs a new dialysis catheter at this time. OBJECTIVE: VITAL SIGNS: She was still having fevers of 102.7 rectally, blood pressure of 104/51, respirations are 27, saturation 100%. GENERAL: She is lethargic, comatose, on a trach vent. LUNGS: Clear. No crackles or rales heard. HEART: S1, S2. Regular. ABDOMEN: Soft, flabby, nontender, still has a rectal tube. EXTREMITIES: Have foot protectors on. Labs are noted. Labs show white count is 14.7 today, hemoglobin 10.9, hematocrit 35.7, platelet count is 124, neutrophils are 67, lymphs are 19, monos are 10.8, and the creatinine is 8.7. LFTs, AST is 81 at this time. Micro daniels, cultures have been negative including blood cultures, and sputum culture is pending. She is on a trach vent. Catheter tip was negative, which was removed on 10/28. Vancomycin level is still high, so we are holding it, and labs show the vancomycin level is 40 which is high. We will repeat it in a day or so to come down to, we need it below 20 to give any dose. The patient remains on Merrem as well as Flagyl via the GT tube. Merrem is 500 IV. Dose is decreased because of her renal status and high-grade fever. CAT scan was done which was suggestive of perirectal abscess, and she remains on norepinephrine. Prognosis remains very poor, and she needs a new catheter, will need for dialysis. Sara Barrios MD
[2018-11-01] MEDS: Acetaminophen 650mg/20.3ml solution UD PO PRN (04:45)
[2018-11-01] MEDS: Levothyroxine 50 MCG TAB PO SCH (05:43)
[2018-11-01] MEDS: Pantoprazole 40 mg Susp UD PO SCH (05:43)
[2018-11-01] MEDS: (Novolog) Insulin Aspart, Recombinant 100 u/ml 10 ml vial SC SCH ×3 (05:52→19:09)
[2018-11-01 06:18] LABS: BASO # 0.1 K/uL (0.0-0.2); BASO % 0.7 % (0.0-2.0); EOS # 0.5 K/uL (0.0-0.7); HEMOGLOBIN 10.7 g/dL (11.0-16.0); LYMPH # 3.3 K/uL (1.0-4.3); LYMPH % 19.1 % (20.0-40.0); MEAN CELL VOLUME 90.1 fL (81.0-99.0); MEAN CORPUSCULAR HEMOGLOBIN 27.2 pg (27.0-31.0); MEAN CORPUSCULAR HGB CONC 30.1 g/dL (33.0-37.0); MEAN PLATELET VOLUME 12.5 fL (7.2-11.7); MONO # 1.7 K/uL (0.0-0.8); NEUT # 11.6 K/uL (1.8-7.0); NEUT % 67.2 % (50.0-75.0); NRBC % 0.4 % (0.0-2.0); RBC 3.92 Mil/uL (3.80-5.20); WHITE BLOOD COUNT 17.3 K/uL (4.8-10.8)
[2018-11-01 06:43] LABS: ALB/GLOB RATIO 1.1 (1.0-2.1); ALBUMIN 3.8 g/dL (3.5-5.0); CALCIUM 8.5 mg/dl (8.6-10.4)
--- NOTE | 2018-11-01 09:12 | CP.PCM.PN ---
Subjective - Date & Time of Evaluation Date of Evaluation: 11/01/18 Time of Evaluation: 09:09 - Subjective Subjective: s/p removal prior dialysis cath- was not working New left cath cath not working well either- to be revised today Due for dialysis today, not done 10/31 Has had fevers, no new positive cultures, on IV ABs Same poor mental status, thrashes about on trach, PEG feeds, on IV levo more acidemic Objective - Vital Signs/Intake and Output Vital Signs (last 24 hours): Temp Pulse Resp BP Pulse Ox 103 F H 95 H 20 94/18 L 98 11/01/18 05:45 11/01/18 08:23 11/01/18 08:23 11/01/18 08:23 11/01/18 08:23 Intake and Output: 11/01/18 11/01/18 06:59 18:59 Intake Total 817.8 Output Total 800 Balance 17.8 - Medications Medications: Current Medications Acetaminophen (Tylenol 650mg/20.3ml Solution Ud) 650 mg PO Q6 PRN PRN Reason: pain+fever Last Admin: 11/01/18 04:45 Dose: 650 mg Aspirin (Aspirin Chewable) 81 mg PO DAILY [facility] Last Admin: 10/31/18 09:10 Dose: 81 mg Epoetin Dedrick (Procrit) 10,000 unit IV MWF [facility] Last Admin: 10/31/18 13:03 Dose: 10,000 unit Glipizide (Glucotrol) 10 mg PO Q12 [facility] Last Admin: 10/31/18 21:58 Dose: 10 mg Heparin Sodium (Porcine) (Heparin) 5,000 units SC Q12 [facility] Last Admin: 10/30/18 10:52 Dose: Not Given Hydrocortisone (Cortef) 5 mg PO DAILY [facility] Last Admin: 10/31/18 10:15 Dose: 5 mg Norepinephrine Bitartrate 4 mg (/ Sodium Chloride) 254 mls @ 15.24 mls/hr IV .[id number] PRN; Protocol PRN Reason: TITRATE PER MD ORDER Last Titration: 11/01/18 06:56 Dose: 10 mcg/min, 38.1 mls/hr Meropenem 500 mg/ Sodium (Chloride) 100 mls @ 100 mls/hr IVPB DAILY [facility]; Protocol Last Admin: 10/31/18 09:11 Dose: 100 mls/hr Vancomycin HCl 500 mg/ Sodium (Chloride) 100 mls @ 100 mls/hr IVPB MWF [facility]; Protocol Last Admin: 10/31/18 12:44 Dose: Not Given Insulin Aspart (Novolog) 0 unit SC Q6H [facility]; Protocol Last Admin: 11/01/18 05:52 Dose: 10 u Insulin Detemir (Levemir) 40 unit SC [facility] Last Admin: 10/31/18 21:58 Dose: 40 u Levetiracetam (Keppra) 1,000 mg PO BID [facility] Last Admin: 10/31/18 18:05 Dose: 1,000 mg Levothyroxine Sodium (Synthroid) 50 mcg PO 0600 [facility] Last Admin: 11/01/18 05:43 Dose: 50 mcg Metronidazole (Flagyl) 500 mg PO Q8 [facility]; Protocol Last Admin: 11/01/18 05:43 Dose: 500 mg Pantoprazole Sodium (Protonix Susp) 40 mg PO 0600 [facility] Last Admin: 11/01/18 05:43 Dose: 40 mg Rosuvastatin Calcium (Crestor) 10 mg PO [facility] Last Admin: 10/31/18 22:01 Dose: 10 mg Saccharomyces Boulardii (Florastor) 250 mg PO TID [facility] - Labs Labs: 11/01/18 06:11 11/01/18 06:11 PT 14.1 SECONDS (9.7-12.2) H 10/19/18 06:21 INR 1.3 10/19/18 06:21 APTT 38 SECONDS (21-34) H 10/19/18 06:21 - Constitutional Appears: In Acute Distress, Chronically Ill - Head Exam Head Exam: ATRAUMATIC, NORMAL INSPECTION - Neck Exam Neck Exam: Normal Inspection. absent: Tenderness - Respiratory Exam Respiratory Exam: Clear to Ausculation Bilateral, NORMAL BREATHING PATTERN - Cardiovascular Exam Cardiovascular Exam: REGULAR RHYTHM, +S1 - GI/Abdominal Exam GI & Abdominal Exam: Soft. absent: Tenderness - Extremities Exam Extremities Exam: Normal Inspection. absent: Tenderness - Neurological Exam Neurological Exam: Altered - Skin Skin Exam: Dry, Warm Assessment and Plan (1) ESRD (end stage renal disease) Status: Acute (2) Diabetic nephropathy associated with type 2 diabetes mellitus Status: Acute (3) CAD (coronary artery disease) Status: Acute (4) HTN (hypertension) Status: Acute - Assessment and Plan (Free Text) Plan: New fem cath repositioning by ICU team dialysis later IV ABs monitor BP, monitor acidosis overall poor px
[2018-11-01] MEDS: Saccharomyces Boulardi 250 mg Cap PO SCH ×3 (10:18→19:08)
[2018-11-01] MEDS: levETIRAcetam 100 mg/ml (5ml) Oral Syringe PO SCH ×2 (10:18→19:08)
[2018-11-01] MEDS: Meropenem 500 MG in Sodium Chloride 0.9% 100 ML IVPB SCH (10:20)
[2018-11-01] MEDS ORDERED: Dextrose 50% SYRINGE Inj (50 ml) IV PRN (12:14)
[2018-11-01] MEDS ORDERED: Glucagon Recombinant 1 mg Inj IM PRN (12:14)
[2018-11-01] MEDS ORDERED: Insulin Detemir 100 units/ml Vial (Levemir) SC SCH (12:15)
[2018-11-01] MEDS ORDERED: (Novolog) Insulin Aspart, Recombinant 100 u/ml 10 ml vial SC ONE (12:21)
--- NOTE | 2018-11-01 12:46 | RAD ---
Date of service: 11/01/2018 HISTORY: s/p left IJ Trialysis cath insertion COMPARISON: 10/30/2018 FINDINGS: LUNGS: Lung volumes lower limits of normal. No consolidation seen Tracheostomy tube in place-satisfactory appearing and stable. . PLEURA: No significant pleural effusion identified, no pneumothorax apparent. CARDIOVASCULAR: There is presence of aortic atherosclerotic calcification on x-ray. Minimal cardiomegaly-similar . probable minimal pulmonary venous congestion-similar Prior right PermCath dialysis catheter removed. Interval insertion of a left internal jugular venous dialysis catheter distal tip coiling at caval atrial junction OSSEOUS STRUCTURES: Thoracic spondylosis. Bilateral shoulder arthrosis VISUALIZED UPPER ABDOMEN: Normal. OTHER FINDINGS: None. IMPRESSION: Interval removal of prior right PermCath. Interval insertion left internal jugular venous renal dialysis catheter-position/appearance as above Minimal cardiomegaly. Probable minimal pulmonary venous congestion-similar
--- NOTE | 2018-11-01 13:37 | VASCLAB ---
Date of service: 10/30/2018 PROCEDURE: Lower Extremity Venous Duplex Exam. HISTORY: DVT PRIORS: None. TECHNIQUE: Bilateral common femoral, femoral, popliteal and posterior tibial, peroneal and great saphenous veins were evaluated. Flow was assessed with color Doppler, compressibility, assessment of phasic flow and augmentation response. Report prepared by MARTIR Yusuf, RVT FINDINGS: RIGHT: 1. Common Femoral Vein: 1.1. Compressibility - Fully compressible: Thrombus - None : Flow - Phasic: Augmentation -Normal: Reflux - None. 2. Femoral Vein: 2.1. Compressibility - Fully compressible: Thrombus - None : Flow - Phasic: Augmentation -Normal: Reflux - None. 3. Popliteal Vein: 3.1. Compressibility - Fully compressible: Thrombus - None : Flow - Phasic: Augmentation -Normal: Reflux - None. 4. Posterior Tibial Vein: 4.1. Compressibility - Fully compressible: Thrombus - None: Flow - Phasic: Augmentation -Normal: Reflux - None. 5. Peroneal Vein: 5.1. Compressibility - Fully compressible: Thrombus - None: Flow - Phasic: Augmentation -Normal: Reflux - None. 6. Great Saphenous Vein: 6.1. Compressibility - Fully compressible: Thrombus - None: Flow - Phasic: Augmentation - Normal: Reflux - None. LEFT: 1. Common Femoral Vein: 1.1. Compressibility - Fully compressible: Thrombus - None: Flow - Phasic: Augmentation -Normal: Reflux - None. 2. Femoral Vein: 2.1. Compressibility - Fully compressible: Thrombus - None: Flow - Phasic: Augmentation -Normal: Reflux - None. 3. Popliteal Vein: 3.1. Compressibility - Fully compressible: Thrombus - None : Flow - Phasic: Augmentation -Normal: Reflux - None. 4. Posterior Tibial Vein: 4.1. Compressibility - Fully compressible: Thrombus - None: Flow - Phasic: Augmentation -Normal: Reflux - None. 5. Peroneal Vein: 5.1. Compressibility - Fully compressible: Thrombus - None: Flow - Phasic: Augmentation -Normal: Reflux - None. 6. Great Saphenous Vein: 6.1. Compressibility - Fully compressible: Thrombus - None: Flow - Phasic: Augmentation - Normal: Reflux - None. OTHER FINDINGS: Right: None significant. Left: None significant. IMPRESSION: Right: No evidence of deep or superficial vein thrombosis of the right lower extremity. Normal valve function noted of the right side. Left: No evidence of deep or superficial vein thrombosis of the left lower extremity. Normal valve function noted of the left side.
[2018-11-01] MEDS ORDERED: Sodium Chloride 0.9% 1,000 ML IV ONE (15:30)
--- NOTE | 2018-11-01 15:47 | CP.CCUPN ---
<Dyllan Patton - Last Filed: 11/01/18 15:22> CCU Subjective - Physician Review Subjective (Free Text): PGY-1 ICU progress note for Dr Anupama Swartz service Pt seen and examined at bedside. Patient seen to move her upper and lower extremities at times throughout the day. Does not follow commands. ROS unattainable due to patient's mental status. Critical Care Time Spent (in minutes): 40 CCU Objective - Vital Signs / Intake & Output Intake and Output (Last 8hrs): Intake & Output 11/01/18 11/01/18 11/01/18 06:59 14:59 22:59 Intake Total 572.5 265.2 Output Total 300 Balance 272.5 265.2 Weight 178 lb 8 oz Intake: IV 320.0 85.2 Intake, IV Amount 252.5 180 Left Femoral 232.5 180 Left Upper arm 10 Right Antecubital 10 Output: Stool 300 Other: # Bowel Movements 1 - Physical Exam Head: Positive for: Atraumatic, Normocephalic Extroacular Muscles: Positive for: EOMI (dropping eyelid left) Conjunctiva: Positive for: Normal Mouth: Positive for: Dry Neck: Positive for: Other (tracheostomy in place with vent, permacath right side chest area ) Respiratory/Chest: Positive for: Decreased Breath Sounds, Other (intubated ). Negative for: Respiratory Distress, Accessory Muscle Use, Tachypneic Cardiovascular: Positive for: Regular Rate and Rhythm, Normal S1, S2 Abdomen: Positive for: Normal Bowel Sounds, Other (PEG tube in place ). Negative for: Tenderness, Distention, Rebound, Guarding Upper Extremity: Positive for: Normal Inspection. Negative for: Cyanosis, Edema Lower Extremity: Positive for: Normal Inspection. Negative for: Edema Neurological: Negative for: GCS=15, CN II-XII Intact, Speech Normal Skin: Positive for: Warm, Dry, Normal Color, Other (permacath in place, midline right upper side ) Psychiatric: Positive for: Agitated. Negative for: Alert, Oriented x 3, Normal Insight, Normal Concentration - Medications Active Medications: Active Medications Generic Name Dose Route Start Last Admin Trade Name Freq PRN Reason Stop Dose Admin Acetaminophen 650 mg 10/25/18 03:30 11/01/18 04:45 Tylenol 650mg/20.3ml Solution Ud PO 650 mg Q6 PRN Administration pain+fever Aspirin 81 mg 10/08/18 10:00 11/01/18 10:18 Aspirin Chewable PO 81 mg DAILY JOCELYN Administration Dextrose 0 ml 11/01/18 12:14 Dextrose 50% Inj IV STAT PRN Hypoglycemia Protocol Protocol Dextrose 0 gm 11/01/18 12:14 Glutose 15 PO ONCE PRN Hypoglycemia Protocol Protocol Epoetin Dedrick 10,000 unit 11/01/18 14:00 Procrit IV TTS JOCELYN Glucagon 0 mg 11/01/18 12:14 Glucagen Diagnostic Kit IM STAT PRN Hypoglycemia Protocol Protocol Heparin Sodium (Porcine) 5,000 units 10/15/18 10:00 10/30/18 10:52 Heparin SC Not Given Q12 JOCELYN Hydrocortisone 5 mg 10/31/18 10:00 11/01/18 10:18 Cortef PO 5 mg DAILY JOCELYN Administration Norepinephrine Bitartrate 4 mg 254 mls @ 15.24 mls/hr 10/30/18 07:25 11/01/18 10:19 / Sodium Chloride IV 10 mcg/min .[id number] PRN 38.1 mls/hr TITRATE PER MD ORDER Administration Protocol 4 MCG/MIN Meropenem 500 mg/ Sodium 100 mls @ 100 mls/hr 10/30/18 15:30 11/01/18 10:20 Chloride IVPB 100 mls/hr DAILY JOCELYN Administration Protocol Vancomycin HCl 500 mg/ Sodium 100 mls @ 100 mls/hr 10/31/18 09:00 10/31/18 12:44 Chloride IVPB Not Given MWF [facility] Protocol Fluconazole 100 mg/ 50 mls @ 100 mls/hr 11/01/18 13:00 Miscellaneous IVPB Q24H [facility] Protocol Dextrose 1,000 mls @ 0 mls/hr 11/01/18 12:14 Dextrose 5% In Water 1000 Ml IV .Q0M PRN Hypoglycemia Protocol Protocol Per Protocol Insulin Aspart 0 unit 10/31/18 12:00 11/01/18 12:49 Novolog SC Not Given Q6H [facility] Protocol Insulin Detemir 40 unit 10/28/18 22:00 10/31/18 21:58 Levemir SC 40 u HS JOCELYN Administration Insulin Detemir 30 unit 11/02/18 10:00 Levemir SC DAILY [facility] Levetiracetam 1,000 mg 10/28/18 18:00 11/01/18 10:18 Keppra PO 1,000 mg BID JOCELYN Administration Levothyroxine Sodium 50 mcg 09/29/18 08:00 11/01/18 05:43 Synthroid PO 50 mcg 0600 JOCELYN Administration Metronidazole 500 mg 10/30/18 14:15 11/01/18 05:43 Flagyl PO 500 mg Q8 JOCELYN Administration Protocol Pantoprazole Sodium 40 mg 10/09/18 06:00 11/01/18 05:43 Protonix Susp PO 40 mg 0600 JOCELYN Administration Rosuvastatin Calcium 10 mg 09/30/18 22:00 10/31/18 22:01 Crestor PO 10 mg HS JOCELYN Administration Saccharomyces Boulardii 250 mg 11/01/18 10:00 11/01/18 10:18 Florastor PO 250 mg TID JOCELYN Administration - Patient Studies Lab Studies: Microbiology Studies 10/30/18 08:29 Gram Stain - Final Sputum Sputum Culture - Final Yeast Species 10/30/18 08:29 Blood Culture - Preliminary Blood NO GROWTH AFTER 48 HOURS 10/30/18 08:29 Blood Culture - Preliminary Blood NO GROWTH AFTER 48 HOURS Lab Studies 11/01/18 11/01/18 11/01/18 Range/Units 08:07 08:07 06:11 WBC (4.8-10.8) K/uL RBC (3.80-5.20) Mil/uL Hgb (11.0-16.0) g/dL Hct (34.0-47.0) % MCV (81.0-99.0) fL MCH (27.0-31.0) pg MCHC (33.0-37.0) g/dL RDW (11.5-14.5) % Plt Count (130-400) K/uL MPV (7.2-11.7) fL Neut % (Auto) (50.0-75.0) % Lymph % (Auto) (20.0-40.0) % Ramsey % (Auto) (0.0-10.0) % Eos % (Auto) (0.0-4.0) % Baso % (Auto) (0.0-2.0) % Neut # (Auto) (1.8-7.0) K/uL Lymph # (Auto) (1.0-4.3) K/uL Ramsey # (Auto) (0.0-0.8) K/uL Eos # (Auto) (0.0-0.7) K/uL Baso # (Auto) (0.0-0.2) K/uL Sodium (132-148) mmol/L Potassium (3.6-5.2) mmol/L Chloride (98-107) mmol/L Carbon Dioxide (22-30) mmol/L Anion Gap (10-20) BUN (7-17) mg/dL Creatinine (0.7-1.2) mg/dL Est GFR ( Amer) Est GFR (Non-Af Amer) POC Glucose (mg/dL) (65-110) mg/dL Random Glucose (65-105) mg/dL Lactic Acid 1.9 (0.7-2.1) mmol/L Calcium (8.6-10.4) mg/dl Phosphorus (2.5-4.5) mg/dL Magnesium (1.6-2.3) mg/dL Total Bilirubin (0.2-1.3) mg/dL AST (14-36) U/L ALT (9-52) U/L Alkaline Phosphatase (38-126) U/L Total Protein (6.3-8.3) g/dL Albumin (3.5-5.0) g/dL Globulin (2.2-3.9) gm/dL Albumin/Globulin Ratio (1.0-2.1) Procalcitonin 4.24 H (0.19-0.49) NG/ML Cortisol AM Sample 18.9 (4.46-22.7) ug/dL 11/01/18 11/01/18 11/01/18 Range/Units 06:11 06:11 05:49 WBC 17.3 H (4.8-10.8) K/uL RBC 3.92 (3.80-5.20) Mil/uL Hgb 10.7 L (11.0-16.0) g/dL Hct 35.3 (34.0-47.0) % MCV 90.1 (81.0-99.0) fL MCH 27.2 (27.0-31.0) pg MCHC 30.1 L (33.0-37.0) g/dL RDW 19.0 H (11.5-14.5) % Plt Count 129 L (130-400) K/uL MPV 12.5 H (7.2-11.7) fL Neut % (Auto) 67.2 (50.0-75.0) % Lymph % (Auto) 19.1 L (20.0-40.0) % Ramsey % (Auto) 10.0 (0.0-10.0) % Eos % (Auto) 3.0 (0.0-4.0) % Baso % (Auto) 0.7 (0.0-2.0) % Neut # (Auto) 11.6 H (1.8-7.0) K/uL Lymph # (Auto) 3.3 (1.0-4.3) K/uL Ramsey # (Auto) 1.7 H (0.0-0.8) K/uL Eos # (Auto) 0.5 (0.0-0.7) K/uL Baso # (Auto) 0.1 (0.0-0.2) K/uL Sodium 137 (132-148) mmol/L Potassium 4.2 (3.6-5.2) mmol/L Chloride 103 (98-107) mmol/L Carbon Dioxide 13 L (22-30) mmol/L Anion Gap 27 H (10-20) BUN 55 H (7-17) mg/dL Creatinine 9.7 H* (0.7-1.2) mg/dL Est GFR ( Amer) 5 Est GFR (Non-Af Amer) 4 POC Glucose (mg/dL) 355 H (65-110) mg/dL Random Glucose 337 H (65-105) mg/dL Lactic Acid (0.7-2.1) mmol/L Calcium 8.5 L (8.6-10.4) mg/dl Phosphorus 3.7 (2.5-4.5) mg/dL Magnesium 2.2 (1.6-2.3) mg/dL Total Bilirubin 0.5 (0.2-1.3) mg/dL AST 96 H (14-36) U/L ALT 27 (9-52) U/L Alkaline Phosphatase 102 (38-126) U/L Total Protein 7.2 (6.3-8.3) g/dL Albumin 3.8 (3.5-5.0) g/dL Globulin 3.4 (2.2-3.9) gm/dL Albumin/Globulin Ratio 1.1 (1.0-2.1) Procalcitonin (0.19-0.49) NG/ML Cortisol AM Sample (4.46-22.7) ug/dL 11/01/18 10/31/18 10/31/18 Range/Units 02:49 23:35 17:43 WBC (4.8-10.8) K/uL RBC (3.80-5.20) Mil/uL Hgb (11.0-16.0) g/dL Hct (34.0-47.0) % MCV (81.0-99.0) fL MCH (27.0-31.0) pg MCHC (33.0-37.0) g/dL RDW (11.5-14.5) % Plt Count (130-400) K/uL MPV (7.2-11.7) fL Neut % (Auto) (50.0-75.0) % Lymph % (Auto) (20.0-40.0) % Ramsey % (Auto) (0.0-10.0) % Eos % (Auto) (0.0-4.0) % Baso % (Auto) (0.0-2.0) % Neut # (Auto) (1.8-7.0) K/uL Lymph # (Auto) (1.0-4.3) K/uL Ramsey # (Auto) (0.0-0.8) K/uL Eos # (Auto) (0.0-0.7) K/uL Baso # (Auto) (0.0-0.2) K/uL Sodium (132-148) mmol/L Potassium (3.6-5.2) mmol/L Chloride (98-107) mmol/L Carbon Dioxide (22-30) mmol/L Anion Gap (10-20) BUN (7-17) mg/dL Creatinine (0.7-1.2) mg/dL Est GFR ( Amer) Est GFR (Non-Af Amer) POC Glucose (mg/dL) 386 H 482 H* 361 H (65-110) mg/dL Random Glucose (65-105) mg/dL Lactic Acid (0.7-2.1) mmol/L Calcium (8.6-10.4) mg/dl Phosphorus (2.5-4.5) mg/dL Magnesium (1.6-2.3) mg/dL Total Bilirubin (0.2-1.3) mg/dL AST (14-36) U/L ALT (9-52) U/L Alkaline Phosphatase (38-126) U/L Total Protein (6.3-8.3) g/dL Albumin (3.5-5.0) g/dL Globulin (2.2-3.9) gm/dL Albumin/Globulin Ratio (1.0-2.1) Procalcitonin (0.19-0.49) NG/ML Cortisol AM Sample (4.46-22.7) ug/dL Laboratory Results - last 24 hr 10/31/18 10/31/18 11/01/18 17:43 23:35 02:49 WBC RBC Hgb Hct MCV MCH MCHC RDW Plt Count MPV Neut % (Auto) Lymph % (Auto) Ramsey % (Auto) Eos % (Auto) Baso % (Auto) Neut # (Auto) Lymph # (Auto) Ramsey # (Auto) Eos # (Auto) Baso # (Auto) Sodium Potassium Chloride Carbon Dioxide Anion Gap BUN Creatinine Est GFR ( Amer) Est GFR (Non-Af Amer) POC Glucose (mg/dL) 361 H 482 H* 386 H Random Glucose Lactic Acid Calcium Phosphorus Magnesium Total Bilirubin AST ALT Alkaline Phosphatase Total Protein Albumin Globulin Albumin/Globulin Ratio Procalcitonin Cortisol AM Sample 11/01/18 11/01/18 11/01/18 05:49 06:11 06:11 WBC 17.3 H RBC 3.92 Hgb 10.7 L Hct 35.3 MCV 90.1 MCH 27.2 MCHC 30.1 L RDW 19.0 H Plt Count 129 L MPV 12.5 H Neut % (Auto) 67.2 Lymph % (Auto) 19.1 L Ramsey % (Auto) 10.0 Eos % (Auto) 3.0 Baso % (Auto) 0.7 Neut # (Auto) 11.6 H Lymph # (Auto) 3.3 Ramsey # (Auto) 1.7 H Eos # (Auto) 0.5 Baso # (Auto) 0.1 Sodium 137 Potassium 4.2 Chloride 103 Carbon Dioxide 13 L Anion Gap 27 H BUN 55 H Creatinine 9.7 H* Est GFR ( Amer) 5 Est GFR (Non-Af Amer) 4 POC Glucose (mg/dL) 355 H Random Glucose 337 H Lactic Acid Calcium 8.5 L Phosphorus 3.7 Magnesium 2.2 Total Bilirubin 0.5 AST 96 H ALT 27 Alkaline Phosphatase 102 Total Protein 7.2 Albumin 3.8 Globulin 3.4 Albumin/Globulin Ratio 1.1 Procalcitonin Cortisol AM Sample 11/01/18 11/01/18 11/01/18 06:11 08:07 08:07 WBC RBC Hgb Hct MCV MCH MCHC RDW Plt Count MPV Neut % (Auto) Lymph % (Auto) Ramsey % (Auto) Eos % (Auto) Baso % (Auto) Neut # (Auto) Lymph # (Auto) Ramsey # (Auto) Eos # (Auto) Baso # (Auto) Sodium Potassium Chloride Carbon Dioxide Anion Gap BUN Creatinine Est GFR ( Amer) Est GFR (Non-Af Amer) POC Glucose (mg/dL) Random Glucose Lactic Acid 1.9 Calcium Phosphorus Magnesium Total Bilirubin AST ALT Alkaline Phosphatase Total Protein Albumin Globulin Albumin/Globulin Ratio Procalcitonin 4.24 H Cortisol AM Sample 18.9 Radiology Impressions: Radiology Impressions Duplex Scan Lower Extremity Artery 10/28/18 11:03 IMPRESSION: Right: No evidence of deep or superficial vein thrombosis of the right lower extremity. Normal valve function noted of the right side. Left: No evidence of deep or superficial vein thrombosis of the left lower extremity. Normal valve function noted of the left side. Chest X-Ray 11/01/18 10:46 IMPRESSION: Interval removal of prior right PermCath. Interval insertion left internal jugular venous renal dialysis catheter-position/appearance as above Minimal cardiomegaly. Probable minimal pulmonary venous congestion-similar Fingerstick Blood Sugar Results: 329 Critical Care Progress Note - Ventilator Checklist Head of Bed 30 Degrees: Yes Daily Sedation Vacation: Yes Daily Assessment of Readiness to Wean: Yes Daily Spontaneous Breathing Trial: Yes PUD Prophalyxis: Yes DVT Prophylaxis: Yes Oral Care with Chlorhexidine Gluconate {CHG}: Yes - Vent Settings MODE:: PRVC TIDAL VOLUME:: 450 RESP RATE:: 18 FIO2:: 50 PEEP:: 5 - Extremities/Vascular Does the Patient have a Central Venous Catheter?: Yes Insertion Site: Internal Jugular Vein Does the Patient need a Central Venous Catheter?: Yes Does the Patient have a Rodriguez Catheter?: Yes Does the Patient need a Rodriguez Catheter?: Yes - Restraints Justification for Restraints: High risk for self extubation, High risk for removing IV access - Prophylaxis GI Prophylaxis GI: PPI - Prophylaxis DVT Prophylaxis DVT: Heparin SQ Assessment/Plan - Assessment and Plan (Free Text) Plan: Patient is a 72 year old female with PMHx of CKD, CHF, CAD s/p stents, pituitary adenoma a/p resection, DM, who was admitted for respiratory and cardiac arrest s/p permacath placement and AVF on 10/05; possible AMS due to anoxic brain injury, now on HD MWF, tracheostomy on 10/18/17, PEG tube placement 10/23/18. Patient became hypotensive overnight and upgraded to ICU. Permacath removed by surgery on 10/30. A trialysis catheter inserted but dialysis reported the line was not function. A IJ central line inserted today for dialysis access. Neuro - Intubated - continue Keppra 1000mg BID - Valproate started per Neuro - f/u EEG results - f/u Neuro recs Cardiac - Hypotensive 2/2 to possible sepsis - Levophed drip at 10mcg - f/u Echo - r/u cardiogenic shock - continue to monitor vitals - Crestor 10mg, ASA 81mg Pulm - Intubated, current vent settings PRVC 14/450/5/35 - Pressure support trials - CXR 10/30: No active pulmonary disease GI - PEG tube in place - Restarted Tube feeds as per dietary change solution to Osmolite 1.2 with goal of 60ml/hr - protonix ppx - CT abdomen/pelvis 10/30: fluid and gas filled distended rectum versus perirectal abscess. Evidence of anastomotic bowel suture material and/or rectal tube/packing material. - Rectal tube removed - f/u surgery recs for eval of perirectal abscess. Renal - dialysis today, dialysis 10/31 unsuccessful - HD schedule now : [facility] - Left IJ trialysis catheter inserted 11/01 for dialysis - patient to get HD today - continue Procrit Endo - Hx of Hypothyroidism, continue levothyroxine 50mg - Hx of DM - elevated glucose levels this am - continue Levemir 40 units HS, ISS high protocol - Start Levemir 30 units daily - One dose of novolog 15 units - d/c Glipizide - Cortef 5mg - AM Cortisol level 18.9 - continue accuchecks - hypoglycemia protocol Heme - H/H 10.7/35.3 - monitor CBC ID - Hypotensive 2/2 possible sepsis - Febrile, Tmax 104.2F - WBC 17.3 today, continue to monitor - Procal 4.24 today - Permacath possible source of infection, removed by surgery 10/30 - continue Abx: Meropenem, Flagyl - Vanc trough 40, Vanco on hold - 10/30 blood cx and sputum cx: negative after 48 hours - 10/30 sputum cx positive: Yeast species - c.diff negative - continue fluconazole 100mg PPx - Protonix for GI ppx - DVT ppx: SCDs, Heparin SC - Tylenol PRN for fever Plan discussed with Dr Maxime Patton, PGY-1 - Date & Time Date: 11/01/18 Time: 09:00 <Corona Swartz - Last Filed: 11/01/18 16:53> CCU Objective - Vital Signs / Intake & Output Intake and Output (Last 8hrs): Intake & Output 11/01/18 11/01/18 11/01/18 06:59 14:59 22:59 Intake Total 572.5 265.2 Output Total 300 Balance 272.5 265.2 Weight 178 lb 8 oz Intake: IV 320.0 85.2 Intake, IV Amount 252.5 180 Left Femoral 232.5 180 Left Upper arm 10 Right Antecubital 10 Output: Stool 300 Other: # Bowel Movements 1 - Medications Active Medications: Active Medications Generic Name Dose Route Start Last Admin Trade Name Freq PRN Reason Stop Dose Admin Acetaminophen 650 mg 10/25/18 03:30 11/01/18 04:45 Tylenol 650mg/20.3ml Solution Ud PO 650 mg Q6 PRN Administration pain+fever Aspirin 81 mg 10/08/18 10:00 11/01/18 10:18 Aspirin Chewable PO 81 mg DAILY JOCELYN Administration Dextrose 0 ml 11/01/18 12:14 Dextrose 50% Inj IV STAT PRN Hypoglycemia Protocol Protocol Dextrose 0 gm 11/01/18 12:14 Glutose 15 PO ONCE PRN Hypoglycemia Protocol Protocol Epoetin Dedrick 10,000 unit 11/01/18 14:00 Procrit IV TTS JOCELYN Glucagon 0 mg 11/01/18 12:14 Glucagen Diagnostic Kit IM STAT PRN Hypoglycemia Protocol Protocol Heparin Sodium (Porcine) 5,000 units 10/15/18 10:00 10/30/18 10:52 Heparin SC Not Given Q12 JOCELYN Heparin Sodium (Porcine) 1,000 units 11/01/18 16:15 Heparin IVP ONCE JOCELYN Hydrocortisone 5 mg 10/31/18 10:00 11/01/18 10:18 Cortef PO 11/03/18 10:00 5 mg DAILY JOCELYN Administration Norepinephrine Bitartrate 4 mg 254 mls @ 15.24 mls/hr 10/30/18 07:25 11/01/18 10:19 / Sodium Chloride IV 10 mcg/min .[id number] PRN 38.1 mls/hr TITRATE PER MD ORDER Administration Protocol 4 MCG/MIN Meropenem 500 mg/ Sodium 100 mls @ 100 mls/hr 10/30/18 15:30 11/01/18 10:20 Chloride IVPB 100 mls/hr DAILY JOCELYN Administration Protocol Vancomycin HCl 500 mg/ Sodium 100 mls @ 100 mls/hr 10/31/18 09:00 10/31/18 12:44 Chloride IVPB Not Given MWF [facility] Protocol Fluconazole 100 mg/ 50 mls @ 100 mls/hr 11/01/18 13:00 Miscellaneous IVPB Q24H JOCELYN Protocol Dextrose 1,000 mls @ 0 mls/hr 11/01/18 12:14 Dextrose 5% In Water 1000 Ml IV .Q0M PRN Hypoglycemia Protocol Protocol Per Protocol Sodium Chloride 1,000 mls @ 500 mls/hr 11/01/18 15:30 Sodium Chloride 0.9% IV 11/01/18 17:29 .Q2H ONE Insulin Aspart 0 unit 10/31/18 12:00 11/01/18 12:49 Novolog SC Not Given Q6H [facility] Protocol Insulin Detemir 40 unit 10/28/18 22:00 10/31/18 21:58 Levemir SC 40 u HS JOCELYN Administration Insulin Detemir 30 unit 11/02/18 10:00 Levemir SC DAILY [facility] Levetiracetam 1,000 mg 10/28/18 18:00 11/01/18 10:18 Keppra PO 1,000 mg BID JOCELYN Administration Levothyroxine Sodium 50 mcg 09/29/18 08:00 11/01/18 05:43 Synthroid PO 50 mcg 0600 JOCELYN Administration Metronidazole 500 mg 10/30/18 14:15 11/01/18 05:43 Flagyl PO 500 mg Q8 JOCELYN Administration Protocol Pantoprazole Sodium 40 mg 10/09/18 06:00 11/01/18 05:43 Protonix Susp PO 40 mg 0600 JOCELYN Administration Rosuvastatin Calcium 10 mg 09/30/18 22:00 10/31/18 22:01 Crestor PO 10 mg HS JOCELYN Administration Saccharomyces Boulardii 250 mg 11/01/18 10:00 11/01/18 10:18 Florastor PO 250 mg TID JOCELYN Administration - Patient Studies Lab Studies: Microbiology Studies 10/30/18 08:29 Gram Stain - Final Sputum Sputum Culture - Final Yeast Species 10/30/18 08:29 Blood Culture - Preliminary Blood NO GROWTH AFTER 48 HOURS 10/30/18 08:29 Blood Culture - Preliminary Blood NO GROWTH AFTER 48 HOURS Lab Studies 11/01/18 11/01/18 11/01/18 Range/Units 11:53 08:07 08:07 WBC (4.8-10.8) K/uL RBC (3.80-5.20) Mil/uL Hgb (11.0-16.0) g/dL Hct (34.0-47.0) % MCV (81.0-99.0) fL MCH (27.0-31.0) pg MCHC (33.0-37.0) g/dL RDW (11.5-14.5) % Plt Count (130-400) K/uL MPV (7.2-11.7) fL Neut % (Auto) (50.0-75.0) % Lymph % (Auto) (20.0-40.0) % Ramsey % (Auto) (0.0-10.0) % Eos % (Auto) (0.0-4.0) % Baso % (Auto) (0.0-2.0) % Neut # (Auto) (1.8-7.0) K/uL Lymph # (Auto) (1.0-4.3) K/uL Ramsey # (Auto) (0.0-0.8) K/uL Eos # (Auto) (0.0-0.7) K/uL Baso # (Auto) (0.0-0.2) K/uL Sodium (132-148) mmol/L Potassium (3.6-5.2) mmol/L Chloride (98-107) mmol/L Carbon Dioxide (22-30) mmol/L Anion Gap (10-20) BUN (7-17) mg/dL Creatinine (0.7-1.2) mg/dL Est GFR ( Amer) Est GFR (Non-Af Amer) POC Glucose (mg/dL) 329 H (65-110) mg/dL Random Glucose (65-105) mg/dL Lactic Acid 1.9 (0.7-2.1) mmol/L Calcium (8.6-10.4) mg/dl Phosphorus (2.5-4.5) mg/dL Magnesium (1.6-2.3) mg/dL Total Bilirubin (0.2-1.3) mg/dL AST (14-36) U/L ALT (9-52) U/L Alkaline Phosphatase (38-126) U/L Total Protein (6.3-8.3) g/dL Albumin (3.5-5.0) g/dL Globulin (2.2-3.9) gm/dL Albumin/Globulin Ratio (1.0-2.1) Procalcitonin 4.24 H (0.19-0.49) NG/ML Cortisol AM Sample (4.46-22.7) ug/dL 11/01/18 11/01/18 11/01/18 Range/Units 06:11 06:11 06:11 WBC 17.3 H (4.8-10.8) K/uL RBC 3.92 (3.80-5.20) Mil/uL Hgb 10.7 L (11.0-16.0) g/dL Hct 35.3 (34.0-47.0) % MCV 90.1 (81.0-99.0) fL MCH 27.2 (27.0-31.0) pg MCHC 30.1 L (33.0-37.0) g/dL RDW 19.0 H (11.5-14.5) % Plt Count 129 L (130-400) K/uL MPV 12.5 H (7.2-11.7) fL Neut % (Auto) 67.2 (50.0-75.0) % Lymph % (Auto) 19.1 L (20.0-40.0) % Ramsey % (Auto) 10.0 (0.0-10.0) % Eos % (Auto) 3.0 (0.0-4.0) % Baso % (Auto) 0.7 (0.0-2.0) % Neut # (Auto) 11.6 H (1.8-7.0) K/uL Lymph # (Auto) 3.3 (1.0-4.3) K/uL Ramsey # (Auto) 1.7 H (0.0-0.8) K/uL Eos # (Auto) 0.5 (0.0-0.7) K/uL Baso # (Auto) 0.1 (0.0-0.2) K/uL Sodium 137 (132-148) mmol/L Potassium 4.2 (3.6-5.2) mmol/L Chloride 103 (98-107) mmol/L Carbon Dioxide 13 L (22-30) mmol/L Anion Gap 27 H (10-20) BUN 55 H (7-17) mg/dL Creatinine 9.7 H* (0.7-1.2) mg/dL Est GFR ( Amer) 5 Est GFR (Non-Af Amer) 4 POC Glucose (mg/dL) (65-110) mg/dL Random Glucose 337 H (65-105) mg/dL Lactic Acid (0.7-2.1) mmol/L Calcium 8.5 L (8.6-10.4) mg/dl Phosphorus 3.7 (2.5-4.5) mg/dL Magnesium 2.2 (1.6-2.3) mg/dL Total Bilirubin 0.5 (0.2-1.3) mg/dL AST 96 H (14-36) U/L ALT 27 (9-52) U/L Alkaline Phosphatase 102 (38-126) U/L Total Protein 7.2 (6.3-8.3) g/dL Albumin 3.8 (3.5-5.0) g/dL Globulin 3.4 (2.2-3.9) gm/dL Albumin/Globulin Ratio 1.1 (1.0-2.1) Procalcitonin (0.19-0.49) NG/ML Cortisol AM Sample 18.9 (4.46-22.7) ug/dL 11/01/18 11/01/18 10/31/18 Range/Units 05:49 02:49 23:35 WBC (4.8-10.8) K/uL RBC (3.80-5.20) Mil/uL Hgb (11.0-16.0) g/dL Hct (34.0-47.0) % MCV (81.0-99.0) fL MCH (27.0-31.0) pg MCHC (33.0-37.0) g/dL RDW (11.5-14.5) % Plt Count (130-400) K/uL MPV (7.2-11.7) fL Neut % (Auto) (50.0-75.0) % Lymph % (Auto) (20.0-40.0) % Ramsey % (Auto) (0.0-10.0) % Eos % (Auto) (0.0-4.0) % Baso % (Auto) (0.0-2.0) % Neut # (Auto) (1.8-7.0) K/uL Lymph # (Auto) (1.0-4.3) K/uL Ramsey # (Auto) (0.0-0.8) K/uL Eos # (Auto) (0.0-0.7) K/uL Baso # (Auto) (0.0-0.2) K/uL Sodium (132-148) mmol/L Potassium (3.6-5.2) mmol/L Chloride (98-107) mmol/L Carbon Dioxide (22-30) mmol/L Anion Gap (10-20) BUN (7-17) mg/dL Creatinine (0.7-1.2) mg/dL Est GFR ( Amer) Est GFR (Non-Af Amer) POC Glucose (mg/dL) 355 H 386 H 482 H* (65-110) mg/dL Random Glucose (65-105) mg/dL Lactic Acid (0.7-2.1) mmol/L Calcium (8.6-10.4) mg/dl Phosphorus (2.5-4.5) mg/dL Magnesium (1.6-2.3) mg/dL Total Bilirubin (0.2-1.3) mg/dL AST (14-36) U/L ALT (9-52) U/L Alkaline Phosphatase (38-126) U/L Total Protein (6.3-8.3) g/dL Albumin (3.5-5.0) g/dL Globulin (2.2-3.9) gm/dL Albumin/Globulin Ratio (1.0-2.1) Procalcitonin (0.19-0.49) NG/ML Cortisol AM Sample (4.46-22.7) ug/dL 10/31/18 Range/Units 17:43 WBC (4.8-10.8) K/uL RBC (3.80-5.20) Mil/uL Hgb (11.0-16.0) g/dL Hct (34.0-47.0) % MCV (81.0-99.0) fL MCH (27.0-31.0) pg MCHC (33.0-37.0) g/dL RDW (11.5-14.5) % Plt Count (130-400) K/uL MPV (7.2-11.7) fL Neut % (Auto) (50.0-75.0) % Lymph % (Auto) (20.0-40.0) % Ramsey % (Auto) (0.0-10.0) % Eos % (Auto) (0.0-4.0) % Baso % (Auto) (0.0-2.0) % Neut # (Auto) (1.8-7.0) K/uL Lymph # (Auto) (1.0-4.3) K/uL Ramsey # (Auto) (0.0-0.8) K/uL Eos # (Auto) (0.0-0.7) K/uL Baso # (Auto) (0.0-0.2) K/uL Sodium (132-148) mmol/L Potassium (3.6-5.2) mmol/L Chloride (98-107) mmol/L Carbon Dioxide (22-30) mmol/L Anion Gap (10-20) BUN (7-17) mg/dL Creatinine (0.7-1.2) mg/dL Est GFR ( Amer) Est GFR (Non-Af Amer) POC Glucose (mg/dL) 361 H (65-110) mg/dL Random Glucose (65-105) mg/dL Lactic Acid (0.7-2.1) mmol/L Calcium (8.6-10.4) mg/dl Phosphorus (2.5-4.5) mg/dL Magnesium (1.6-2.3) mg/dL Total Bilirubin (0.2-1.3) mg/dL AST (14-36) U/L ALT (9-52) U/L Alkaline Phosphatase (38-126) U/L Total Protein (6.3-8.3) g/dL Albumin (3.5-5.0) g/dL Globulin (2.2-3.9) gm/dL Albumin/Globulin Ratio (1.0-2.1) Procalcitonin (0.19-0.49) NG/ML Cortisol AM Sample (4.46-22.7) ug/dL Laboratory Results - last 24 hr 10/31/18 10/31/18 11/01/18 17:43 23:35 02:49 WBC RBC Hgb Hct MCV MCH MCHC RDW Plt Count MPV Neut % (Auto) Lymph % (Auto) Ramsey % (Auto) Eos % (Auto) Baso % (Auto) Neut # (Auto) Lymph # (Auto) Ramsey # (Auto) Eos # (Auto) Baso # (Auto) Sodium Potassium Chloride Carbon Dioxide Anion Gap BUN Creatinine Est GFR ( Amer) Est GFR (Non-Af Amer) POC Glucose (mg/dL) 361 H 482 H* 386 H Random Glucose Lactic Acid Calcium Phosphorus Magnesium Total Bilirubin AST ALT Alkaline Phosphatase Total Protein Albumin Globulin Albumin/Globulin Ratio Procalcitonin Cortisol AM Sample 11/01/18 11/01/18 11/01/18 05:49 06:11 06:11 WBC 17.3 H RBC 3.92 Hgb 10.7 L Hct 35.3 MCV 90.1 MCH 27.2 MCHC 30.1 L RDW 19.0 H Plt Count 129 L MPV 12.5 H Neut % (Auto) 67.2 Lymph % (Auto) 19.1 L Ramsey % (Auto) 10.0 Eos % (Auto) 3.0 Baso % (Auto) 0.7 Neut # (Auto) 11.6 H Lymph # (Auto) 3.3 Ramsey # (Auto) 1.7 H Eos # (Auto) 0.5 Baso # (Auto) 0.1 Sodium 137 Potassium 4.2 Chloride 103 Carbon Dioxide 13 L Anion Gap 27 H BUN 55 H Creatinine 9.7 H* Est GFR ( Amer) 5 Est GFR (Non-Af Amer) 4 POC Glucose (mg/dL) 355 H Random Glucose 337 H Lactic Acid Calcium 8.5 L Phosphorus 3.7 Magnesium 2.2 Total Bilirubin 0.5 AST 96 H ALT 27 Alkaline Phosphatase 102 Total Protein 7.2 Albumin 3.8 Globulin 3.4 Albumin/Globulin Ratio 1.1 Procalcitonin Cortisol AM Sample 11/01/18 11/01/18 11/01/18 06:11 08:07 08:07 WBC RBC Hgb Hct MCV MCH MCHC RDW Plt Count MPV Neut % (Auto) Lymph % (Auto) Ramsey % (Auto) Eos % (Auto) Baso % (Auto) Neut # (Auto) Lymph # (Auto) Ramsey # (Auto) Eos # (Auto) Baso # (Auto) Sodium Potassium Chloride Carbon Dioxide Anion Gap BUN Creatinine Est GFR ( Amer) Est GFR (Non-Af Amer) POC Glucose (mg/dL) Random Glucose Lactic Acid 1.9 Calcium Phosphorus Magnesium Total Bilirubin AST ALT Alkaline Phosphatase Total Protein Albumin Globulin Albumin/Globulin Ratio Procalcitonin 4.24 H Cortisol AM Sample 18.9 11/01/18 11:53 WBC RBC Hgb Hct MCV MCH MCHC RDW Plt Count MPV Neut % (Auto) Lymph % (Auto) Ramsey % (Auto) Eos % (Auto) Baso % (Auto) Neut # (Auto) Lymph # (Auto) Ramsey # (Auto) Eos # (Auto) Baso # (Auto) Sodium Potassium Chloride Carbon Dioxide Anion Gap BUN Creatinine Est GFR ( Amer) Est GFR (Non-Af Amer) POC Glucose (mg/dL) 329 H Random Glucose Lactic Acid Calcium Phosphorus Magnesium Total Bilirubin AST ALT Alkaline Phosphatase Total Protein Albumin Globulin Albumin/Globulin Ratio Procalcitonin Cortisol AM Sample Radiology Impressions: Radiology Impressions Duplex Scan Lower Extremity Artery 10/28/18 11:03 IMPRESSION: Right: No evidence of deep or superficial vein thrombosis of the right lower extremity. Normal valve function noted of the right side. Left: No evidence of deep or superficial vein thrombosis of the left lower extremity. Normal valve function noted of the left side. Chest X-Ray 11/01/18 10:46 IMPRESSION: Interval removal of prior right PermCath. Interval insertion left internal jugular venous renal dialysis catheter-position/appearance as above Minimal cardiomegaly. Probable minimal pulmonary venous congestion-similar Attending/Attestation - Attestation I have personally seen and examined this patient.: Yes I have fully participated in the care of the patient.: Yes I have reviewed all pertinent clinical information: Yes Notes (Text): 11/01/18 16:50 I have seen and examined the patient. Medical records, lab studies, and imaging were reviewed by me and a management plan was formulated on multidisciplinary rounds with resident Dr. Patton. I agree with their documented assessment and plan. Patient is in shock, suspected either septic shock or hypovolemic shock. More likely hypovolemic shock with recent diarrhea episodes, giving 2 liters of fluid now. Will titrate off levophed. Possible source of sepsis is a perirectal abscess noted on CT abd/pelvis, will repeat CT scan tomorrow. Replaced femoral dialysis cath with a left IJ dialysis cath, secondary to poor flow and anatomic kinking of catheter. Critical Care Time 35 minutes. Multi-disciplinary rounds were performed with house staff, nursing, speech therapy, respiratory therapy, pharmacy and nutrition with integrated input from the primary team/attending and other consulting services. The documented time is cumulative and includes review of patient data/exams/labs/chart review and examination of the patient on rounds and throughout the day; time is exclusive of any procedures or teaching time.
[2018-11-01] MEDS: Epoetin Alfa 10,000 unit/ml Dialysis IV SCH (16:10)
--- NOTE | 2018-11-01 16:55 | PCM.PROC ---
Procedures Attestation:: I certify that I have explained the specified Operation(s) or Procedure(s), risks, benefits and reasonable alternatives to the Patient and/or other person responsible. The opportunity was given to ask questions and all questions answered - Central Line Placement Left Internal Jugular Hemodialysis Access Aseptic technique was employed throughout the procedure: Hand Hygiene done prior to procedure, Full sterile barriers (mask, hair cover, sterile gown, sterile daina ves), Full body sterile drape, Chloraprep Antiseptic: 30 second prep for IJ or SC sites CVP Time Out Performed: Yes Pt. Placed on Pulse Ox Monitor: Yes Central Line Prep: Chlorhexidine-Alcohol Combination Local Anesthesia Used: Lidocaine 1% Amount of Anesthesia Used (mls): 10 Ultrasound Used for Placement: Yes Central Line Lumen Inserted: triple Central Line Length: 20 cm Post Procedure: Sutured in Place, Good Blood Return, All Ports Aspirated, Flushed, Capped, Sterile Dressing Applied Secured by: Suture Post procedure dressing: Clear vapor permeable, Chlorhexidine disc (Biopatch) Post Procedure X-Ray: Yes Patient Tolerated Procedure: Well, No Complications Immediate Complications: None
[2018-11-01] MEDS: Fluconazole IV 200mg/100 ml NS 100 MG in Premixed IV 1 EA IVPB SCH (19:06)
[2018-11-01] MEDS: Valproate 500 MG in Sodium Chloride 0.9% 100 ML IVPB SCH (22:00)
[2018-11-01] MEDS: Insulin Detemir 100 units/ml Vial (Levemir) SC SCH (22:27)
--- NOTE | 2018-11-01 23:32 | CP.PCM.PN ---
Subjective - Date & Time of Evaluation Date of Evaluation: 11/01/18 Time of Evaluation: 10:10 - Subjective Subjective: Patient seen and evaluated No new cardiac events noted On Ventilator Physical Examination - Head Exam Head Exam: ATRAUMATIC, NORMAL INSPECTION - Eye Exam Eye Exam: EOMI, Normal appearance, PERRL. absent: Periorbital tenderness Pupil Exam: NORMAL ACCOMODATION - ENT Exam ENT Exam: Mucous Membranes Moist, Normal Oropharynx - Respiratory Exam Respiratory Exam: Clear to Ausculation Bilateral. absent: Prolonged Expiratory Phase, Respiratory Distress - Cardiovascular Exam Cardiovascular Exam: REGULAR RHYTHM, +S1, +S2. absent: Rubs - GI/Abdominal Exam GI & Abdominal Exam: Soft, Normal Bowel Sounds. absent: Hyperactive Bowel Sounds - Extremities Exam Extremities Exam: absent: Pedal Edema - Back Exam Back Exam: NORMAL INSPECTION. absent: CVA tenderness (R), paraspinal tenderness - Neurological Exam Neurological Exam: Altered - Psychiatric Exam Psychiatric exam: Agitated, Normal Affect, Normal Mood - Skin Skin Exam: Dry Assessment and Plan - Assessment and Plan (Free Text) Assessment: 72 year old female with past medical history of CAD, CHF, HTN, HLD, pituitary adenoma, is being seen s/p respiratory arrest during AV fistula placement surgery. s/p permacath on 10-11-18; possible AMS due to anoxic brain injury, now on HD MWF, tracheostomy done on 10/18/17, planning for PEG placement by GI today. Plan: Respiratory failure - Currently intubated and sedated. Management per primary care team - Completed hypothermic protocol -Bedside PEG placement completed today. Medications: Levetiracetam 420mls/hrIVPB Q12H MIR MRSA in trach -Continue Cefepime 1gm ivpb daily -Continue Vancomycin 1gm ivpb mwf Anoxic brain injury -Pending repeat MRI at [place]. Patient remains agigtated and unable to go for imaging at this time. HTN -Lopressor 12.5mg NG BID MIR HLD -Continue Rosuvastatin 10mg PO HS MIR CAD -Continue Aspirin 81mg PO Daily MIR DM -Levemir 30UNIT sc q12 mir Hypothyroidism -Continue Synthroid 50mcg PO 0600 MIR CKD on HD - S/p right permacath placed on 10/11 -Procrit 10,000 unit IV MWF ppx -Protonix -Heparin Objective - Vital Signs/Intake and Output Vital Signs (last 24 hours): Temp Pulse Resp BP Pulse Ox 99.6 F 110 H 24 151/68 H 96 11/01/18 16:00 11/01/18 18:22 11/01/18 18:22 11/01/18 18:22 11/01/18 18:22 Intake and Output: 11/01/18 11/02/18 18:59 06:59 Intake Total 2340.2 Balance 2340.2 - Medications Medications: Current Medications Acetaminophen (Tylenol 650mg/20.3ml Solution Ud) 650 mg PO Q6 PRN PRN Reason: pain+fever Last Admin: 11/01/18 04:45 Dose: 650 mg Aspirin (Aspirin Chewable) 81 mg PO DAILY [facility] [place] Last Admin: 11/01/18 10:18 Dose: 81 mg Dextrose (Dextrose 50% Inj) 0 ml IV STAT PRN; Protocol PRN Reason: Hypoglycemia Protocol Dextrose (Glutose 15) 0 gm PO ONCE PRN; Protocol PRN Reason: Hypoglycemia Protocol Epoetin Dedrick (Procrit) 10,000 unit IV TTS [facility] [place] Last Admin: 11/01/18 16:10 Dose: 10,000 unit Glucagon (Glucagen Diagnostic Kit) 0 mg IM STAT PRN; Protocol PRN Reason: Hypoglycemia Protocol Heparin Sodium (Porcine) (Heparin) 5,000 units SC Q12 [facility] [place] Last Admin: 11/01/18 22:25 Dose: 5,000 units Heparin Sodium (Porcine) (Heparin) 1,000 units IVP ONCE [facility] [place] Last Admin: 11/01/18 15:30 Dose: 1,000 units Hydrocortisone (Cortef) 5 mg PO DAILY [facility] [place] Stop: 11/03/18 10:00 Last Admin: 11/01/18 10:18 Dose: 5 mg Norepinephrine Bitartrate 4 mg (/ Sodium Chloride) 254 mls @ 15.24 mls/hr IV .[id number] PRN; Protocol PRN Reason: TITRATE PER MD ORDER Last Admin: 11/01/18 10:19 Dose: 10 mcg/min, 38.1 mls/hr Meropenem 500 mg/ Sodium (Chloride) 100 mls @ 100 mls/hr IVPB DAILY [facility] [place]; Protocol Last Admin: 11/01/18 10:20 Dose: 100 mls/hr Vancomycin HCl 500 mg/ Sodium (Chloride) 100 mls @ 100 mls/hr IVPB MWF [facility] [place]; Protocol Last Admin: 10/31/18 12:44 Dose: Not Given Fluconazole 100 mg/ (Miscellaneous) 50 mls @ 100 mls/hr IVPB Q24H MIR; Protocol Last Admin: 11/01/18 19:06 Dose: 100 mls/hr Dextrose (Dextrose 5% In Water 1000 Ml) 1,000 mls @ 0 mls/hr IV .Q0M PRN; Protocol PRN Reason: Hypoglycemia Protocol Valproate Sodium 500 mg/ (Sodium Chloride) 105 mls @ 50 mls/hr IVPB Q12 [facility] [place] Last Admin: 11/01/18 22:00 Dose: 50 mls/hr Insulin Aspart (Novolog) 0 unit SC Q6H [facility] [place]; Protocol Last Admin: 11/01/18 19:09 Dose: 2 u Insulin Detemir (Levemir) 40 unit SC HS [facility] [place] Last Admin: 11/01/18 22:27 Dose: Not Given Insulin Detemir (Levemir) 30 unit SC DAILY [facility] [place] Levetiracetam (Keppra) 1,000 mg PO BID [facility] [place] Last Admin: 11/01/18 19:08 Dose: 1,000 mg Levothyroxine Sodium (Synthroid) 50 mcg PO 0600 [facility] [place] Last Admin: 11/01/18 05:43 Dose: 50 mcg Metronidazole (Flagyl) 500 mg PO Q8 [facility] [place]; Protocol Last Admin: 11/01/18 22:33 Dose: 500 mg Pantoprazole Sodium (Protonix Susp) 40 mg PO 0600 [facility] [place] Last Admin: 11/01/18 05:43 Dose: 40 mg Rosuvastatin Calcium (Crestor) 10 mg PO HS [facility] [place] Last Admin: 11/01/18 22:26 Dose: 10 mg Saccharomyces Boulardii (Florastor) 250 mg PO TID [facility] [place] Last Admin: 11/01/18 19:08 Dose: 250 mg - Labs Labs: 11/01/18 06:11 11/01/18 06:11 PT 14.1 SECONDS (9.7-12.2) H 10/19/18 06:21 INR 1.3 10/19/18 06:21 APTT 38 SECONDS (21-34) H 10/19/18 06:21
[2018-11-02] MEDS ORDERED: Sodium Chloride 0.9% 500 ML IV ONE (06:00)
[2018-11-02 06:33] LABS: BASO # 0.2 K/uL (0.0-0.2); BASO % 1.2 % (0.0-2.0); EOS # 1.5 K/uL (0.0-0.7); EOS % 9.2 % (0.0-4.0); HEMOGLOBIN 10.2 g/dL (11.0-16.0); LYMPH # 2.2 K/uL (1.0-4.3); LYMPH % 13.9 % (20.0-40.0); MEAN CELL VOLUME 88.1 fL (81.0-99.0); MEAN CORPUSCULAR HEMOGLOBIN 27.8 pg (27.0-31.0); MEAN CORPUSCULAR HGB CONC 31.5 g/dL (33.0-37.0); MONO # 1.6 K/uL (0.0-0.8); MONO % 10.4 % (0.0-10.0); NEUT # 10.4 K/uL (1.8-7.0); NEUT % 65.3 % (50.0-75.0); NRBC % 0.9 % (0.0-2.0); RBC 3.67 Mil/uL (3.80-5.20); RED CELL DISTRIBUTION WIDTH 18.4 % (11.5-14.5); WHITE BLOOD COUNT 15.9 K/uL (4.8-10.8)
[2018-11-02] MEDS: (Novolog) Insulin Aspart, Recombinant 100 u/ml 10 ml vial SC SCH ×4 (06:44→19:11)
[2018-11-02] MEDS: Pantoprazole 40 mg Susp UD PO SCH (06:50)
[2018-11-02 06:54] LABS: ALBUMIN 3.4 g/dL (3.5-5.0); CALCIUM 8.4 mg/dl (8.6-10.4)
[2018-11-02] MEDS: Levothyroxine 50 MCG TAB PO SCH (07:00)
[2018-11-02] MEDS: Acetaminophen 650mg/20.3ml solution UD PO PRN (08:18)
[2018-11-02] MEDS: levETIRAcetam 100 mg/ml (5ml) Oral Syringe PO SCH ×2 (09:12→19:10)
[2018-11-02] MEDS: Saccharomyces Boulardi 250 mg Cap PO SCH ×3 (09:12→19:10)
[2018-11-02] MEDS: Valproate 500 MG in Sodium Chloride 0.9% 100 ML IVPB SCH ×2 (09:14→21:57)
[2018-11-02] MEDS: Meropenem 500 MG in Sodium Chloride 0.9% 100 ML IVPB SCH (09:14)
--- NOTE | 2018-11-02 09:23 | PN ---
DATE: 11/02/2018EVALUATION: 10:10 a.m. 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 PHYSICAL EXAMINATION: VITAL SIGNS: Temperature 97.7, pulse rate 120-137, her blood pressure in between 100/48 to 120/61 with a mean artery pressure of 70-78. GENERAL: The patient is constantly moving. Some rhythmicity noted, left upper extremity movement to compare with the right side. The patient shows left lateral gaze. Pupil nonreactive to light. Some movement of the legs also noted. Babinski sign on her left side. The right side was mute. Not respond to pain. The patient's condition clearly states that she might have nonconvulsive status. The patient had been on one medication which is Keppra, not seems to be working. At present, the patient was advised to be on dual antiepileptic, Depakote was started which has to be continued. In the meantime, I will keep her on video monitoring for at least 72-hour period being the weekend. If continuous seizure activities, the patient's dose can be adjusted depending on the finding in electroencephalogram. The patient does not seem to be septic. However, other possible causes of autoimmune encephalitis. It should be ruled out for that treatment point, to consider IVIg and steroids. The patient needs also further workup for the NMDA receptor antibodies. However, it is not available at present locally and it would be sent out and can not wait for the treatment. The patient's white count is somewhat decreasing and temperature is afebrile at present. The patient's condition had been discussed with the nurses. I will discuss with Attending and the [employer]. The patient is scheduled to have a 72-hour period continuous video monitoring. If it is not getting better, the patient will require a spinal tap. Blu Yost MD MTDD
[2018-11-02] MEDS ORDERED: Sodium Chloride 0.9% 1,000 ML IV ONE (11:29)
--- NOTE | 2018-11-02 12:55 | CP.CCUPN ---
<Dyllan Patton - Last Filed: 11/02/18 18:18> CCU Subjective - Physician Review Subjective (Free Text): PGY-1 ICU progress note for Dr Anupama Swartz service Pt seen and examined at bedside. Patient does not follow commands. ROS unattainable due to patient's mental status. 11/02/18 18:30 Critical Care Time Spent (in minutes): 45 CCU Objective - Vital Signs / Intake & Output Vital Signs (Last 4 hours): Vital Signs Temp Pulse Resp BP Pulse Ox 11/02/18 12:00 99.0 F 106 H 20 98 11/02/18 11:59 105 H 21 116/44 L 98 11/02/18 11:44 100 H 21 118/45 L 98 11/02/18 11:29 102 H 19 123/45 L 98 11/02/18 11:14 107 H 20 123/45 L 96 11/02/18 11:00 102 H 20 100 11/02/18 10:59 100 H 24 72/39 L 96 11/02/18 10:44 109 H 19 124/51 L 98 11/02/18 10:30 106 H 23 114/50 L 99 11/02/18 10:16 101 H 21 95/36 L 100 11/02/18 10:14 101 H 25 H 79/38 L 100 11/02/18 10:00 107 H 28 H 100 11/02/18 09:59 110 H 21 85/41 L 100 11/02/18 09:44 110 H 20 99/46 L 100 11/02/18 09:29 105 H 16 110/46 L 97 11/02/18 09:14 111 H 19 101/49 L 98 11/02/18 09:00 105 H 22 99 11/02/18 08:59 105 H 24 103/52 L 100 Intake and Output (Last 8hrs): Intake & Output 11/01/18 11/02/18 11/02/18 22:59 06:59 14:59 Intake Total 1889.2 849.0 1322.0 Balance 1889.2 849.0 1322.0 Intake: IV 55 453 Intake, IV Amount 1759.2 396.0 1197.0 Left Femoral 1500 Left Upper arm 50 900 left trialysis IJ 209.2 396.0 297.0 Oral 25 Tube Feeding 125 Other 50 Other: # Bowel Movements 1 1 1 - Physical Exam Head: Positive for: Atraumatic, Normocephalic Extroacular Muscles: Positive for: EOMI (dropping eyelid left) Conjunctiva: Positive for: Normal Mouth: Positive for: Dry Neck: Positive for: Other (tracheostomy in place with vent, permacath right side chest area ) Respiratory/Chest: Positive for: Decreased Breath Sounds, Other (intubated ). Negative for: Respiratory Distress, Accessory Muscle Use, Tachypneic Cardiovascular: Positive for: Regular Rate and Rhythm, Normal S1, S2 Abdomen: Positive for: Normal Bowel Sounds, Other (PEG tube in place ). Negative for: Tenderness, Distention, Rebound, Guarding Upper Extremity: Positive for: Normal Inspection. Negative for: Cyanosis, Edema Lower Extremity: Positive for: Normal Inspection. Negative for: Edema Neurological: Negative for: GCS=15, CN II-XII Intact, Speech Normal Skin: Positive for: Warm, Dry, Normal Color, Other (permacath in place, midline right upper side ) Psychiatric: Positive for: Agitated. Negative for: Alert, Oriented x 3, Normal Insight, Normal Concentration - Medications Active Medications: Active Medications Generic Name Dose Route Start Last Admin Trade Name Freq PRN Reason Stop Dose Admin Acetaminophen 650 mg 10/25/18 03:30 11/02/18 08:18 Tylenol 650mg/20.3ml Solution Ud PO 650 mg Q6 PRN Administration pain+fever Alteplase, Recombinant 2 mg 11/02/18 12:44 Cathflo 2 Mg Inj IV 11/02/18 12:45 ONCE ONE Aspirin 81 mg 10/08/18 10:00 11/02/18 09:12 Aspirin Chewable PO 81 mg DAILY JOCELYN Administration Dextrose 0 ml 11/01/18 12:14 Dextrose 50% Inj IV STAT PRN Hypoglycemia Protocol Protocol Dextrose 0 gm 11/01/18 12:14 Glutose 15 PO ONCE PRN Hypoglycemia Protocol Protocol Epoetin Dedrick 10,000 unit 11/01/18 14:00 11/01/18 16:10 Procrit IV 10,000 unit TTS JOCELYN Administration Glucagon 0 mg 11/01/18 12:14 Glucagen Diagnostic Kit IM STAT PRN Hypoglycemia Protocol Protocol Heparin Sodium (Porcine) 5,000 units 10/15/18 10:00 11/02/18 09:13 Heparin SC Not Given Q12 JOCELYN Heparin Sodium (Porcine) 1,000 units 11/01/18 16:15 11/01/18 15:30 Heparin IVP 1,000 units ONCE JOCELYN Administration Hydrocortisone 5 mg 10/31/18 10:00 11/02/18 09:12 Cortef PO 11/03/18 10:00 5 mg DAILY JOCELYN Administration Norepinephrine Bitartrate 4 mg 254 mls @ 15.24 mls/hr 10/30/18 07:25 11/02/18 04:30 / Sodium Chloride IV 13 mcg/min .[id number] PRN 49.53 mls/hr TITRATE PER MD ORDER Administration Protocol 4 MCG/MIN Meropenem 500 mg/ Sodium 100 mls @ 100 mls/hr 10/30/18 15:30 11/02/18 09:14 Chloride IVPB 100 mls/hr DAILY JOCELYN Administration Protocol Vancomycin HCl 500 mg/ Sodium 100 mls @ 100 mls/hr 10/31/18 09:00 10/31/18 12:44 Chloride IVPB Not Given MWF [facility] Protocol Fluconazole 100 mg/ 50 mls @ 100 mls/hr 11/01/18 13:00 11/01/18 19:06 Miscellaneous IVPB 100 mls/hr Q24H JOCELYN Administration Protocol Dextrose 1,000 mls @ 0 mls/hr 11/01/18 12:14 Dextrose 5% In Water 1000 Ml IV .Q0M PRN Hypoglycemia Protocol Protocol Per Protocol Valproate Sodium 500 mg/ 105 mls @ 50 mls/hr 11/01/18 22:00 11/02/18 09:14 Sodium Chloride IVPB 50 mls/hr Q12 JOCELYN Administration Sodium Chloride 1,000 mls @ 500 mls/hr 11/02/18 11:29 Sodium Chloride 0.9% IV 11/02/18 13:28 .Q2H ONE Insulin Aspart 0 unit 10/31/18 12:00 11/02/18 06:44 Novolog SC Not Given Q6H [facility] Protocol Insulin Detemir 40 unit 10/28/18 22:00 11/01/18 22:27 Levemir SC Not Given HS [facility] Insulin Detemir 30 unit 11/02/18 10:00 Levemir SC DAILY [facility] Levetiracetam 1,000 mg 10/28/18 18:00 11/02/18 09:12 Keppra PO 1,000 mg BID JOCELYN Administration Levothyroxine Sodium 50 mcg 09/29/18 08:00 11/02/18 07:00 Synthroid PO 50 mcg 0600 JOCELYN Administration Metronidazole 500 mg 10/30/18 14:15 11/02/18 06:50 Flagyl PO 500 mg Q8 JOCELYN Administration Protocol Pantoprazole Sodium 40 mg 10/09/18 06:00 11/02/18 06:50 Protonix Susp PO 40 mg 0600 JOCELYN Administration Rosuvastatin Calcium 10 mg 09/30/18 22:00 11/01/18 22:26 Crestor PO 10 mg HS JOCELYN Administration Saccharomyces Boulardii 250 mg 11/01/18 10:00 11/02/18 09:12 Florastor PO 250 mg TID JOCELYN Administration - Patient Studies Lab Studies: Microbiology Studies 10/30/18 08:29 Blood Culture - Preliminary Blood NO GROWTH AFTER 3 DAYS 10/30/18 08:29 Blood Culture - Preliminary Blood NO GROWTH AFTER 3 DAYS 10/30/18 08:29 Gram Stain - Final Sputum Sputum Culture - Final Yeast Species Lab Studies 11/02/18 11/02/18 11/02/18 Range/Units 11:50 07:26 06:26 WBC 15.9 H (4.8-10.8) K/uL RBC 3.67 L (3.80-5.20) Mil/uL Hgb 10.2 L (11.0-16.0) g/dL Hct 32.3 L (34.0-47.0) % MCV 88.1 D (81.0-99.0) fL MCH 27.8 (27.0-31.0) pg MCHC 31.5 L (33.0-37.0) g/dL RDW 18.4 H (11.5-14.5) % Plt Count 96 L D (130-400) K/uL MPV 12.0 H (7.2-11.7) fL Neut % (Auto) 65.3 (50.0-75.0) % Lymph % (Auto) 13.9 L (20.0-40.0) % [place] % (Auto) 10.4 H (0.0-10.0) % Eos % (Auto) 9.2 H (0.0-4.0) % Baso % (Auto) 1.2 (0.0-2.0) % Neut # (Auto) 10.4 H (1.8-7.0) K/uL Lymph # (Auto) 2.2 (1.0-4.3) K/uL [place] # (Auto) 1.6 H (0.0-0.8) K/uL Eos # (Auto) 1.5 H (0.0-0.7) K/uL Baso # (Auto) 0.2 (0.0-0.2) K/uL Sodium (132-148) mmol/L Potassium (3.6-5.2) mmol/L Chloride (98-107) mmol/L Carbon Dioxide (22-30) mmol/L Anion Gap (10-20) BUN (7-17) mg/dL Creatinine (0.7-1.2) mg/dL Est GFR ( Amer) Est GFR (Non-Af Amer) POC Glucose (mg/dL) 167 H (65-110) mg/dL Random Glucose (65-105) mg/dL Calcium (8.6-10.4) mg/dl Phosphorus 3.2 (2.5-4.5) mg/dL Magnesium 1.9 (1.6-2.3) mg/dL Total Bilirubin (0.2-1.3) mg/dL AST (14-36) U/L ALT (9-52) U/L Alkaline Phosphatase (38-126) U/L Total Protein (6.3-8.3) g/dL Albumin (3.5-5.0) g/dL Globulin (2.2-3.9) gm/dL Albumin/Globulin Ratio (1.0-2.1) Prolactin 12.0 (3.0-18.9) ng/mL Random Vancomycin ug/mL 11/02/18 11/02/18 11/02/18 Range/Units 06:24 06:24 05:45 WBC (4.8-10.8) K/uL RBC (3.80-5.20) Mil/uL Hgb (11.0-16.0) g/dL Hct (34.0-47.0) % MCV (81.0-99.0) fL MCH (27.0-31.0) pg MCHC (33.0-37.0) g/dL RDW (11.5-14.5) % Plt Count (130-400) K/uL MPV (7.2-11.7) fL Neut % (Auto) (50.0-75.0) % Lymph % (Auto) (20.0-40.0) % [place] % (Auto) (0.0-10.0) % Eos % (Auto) (0.0-4.0) % Baso % (Auto) (0.0-2.0) % Neut # (Auto) (1.8-7.0) K/uL Lymph # (Auto) (1.0-4.3) K/uL [place] # (Auto) (0.0-0.8) K/uL Eos # (Auto) (0.0-0.7) K/uL Baso # (Auto) (0.0-0.2) K/uL Sodium 141 (132-148) mmol/L Potassium 3.9 (3.6-5.2) mmol/L Chloride 107 (98-107) mmol/L Carbon Dioxide 22 (22-30) mmol/L Anion Gap 17 (10-20) BUN 28 H (7-17) mg/dL Creatinine 6.2 H (0.7-1.2) mg/dL Est GFR ( Amer) 8 Est GFR (Non-Af Amer) 7 POC Glucose (mg/dL) 127 H (65-110) mg/dL Random Glucose 103 D (65-105) mg/dL Calcium 8.4 L (8.6-10.4) mg/dl Phosphorus 2.9 (2.5-4.5) mg/dL Magnesium 1.9 (1.6-2.3) mg/dL Total Bilirubin 0.5 (0.2-1.3) mg/dL AST 144 H D (14-36) U/L ALT 31 (9-52) U/L Alkaline Phosphatase 99 (38-126) U/L Total Protein 6.8 (6.3-8.3) g/dL Albumin 3.4 L (3.5-5.0) g/dL Globulin 3.3 (2.2-3.9) gm/dL Albumin/Globulin Ratio 1.0 (1.0-2.1) Prolactin (3.0-18.9) ng/mL Random Vancomycin 31.9 ug/mL 11/02/18 11/01/18 11/01/18 Range/Units 00:20 22:07 18:31 WBC (4.8-10.8) K/uL RBC (3.80-5.20) Mil/uL Hgb (11.0-16.0) g/dL Hct (34.0-47.0) % MCV (81.0-99.0) fL MCH (27.0-31.0) pg MCHC (33.0-37.0) g/dL RDW (11.5-14.5) % Plt Count (130-400) K/uL MPV (7.2-11.7) fL Neut % (Auto) (50.0-75.0) % Lymph % (Auto) (20.0-40.0) % [place] % (Auto) (0.0-10.0) % Eos % (Auto) (0.0-4.0) % Baso % (Auto) (0.0-2.0) % Neut # (Auto) (1.8-7.0) K/uL Lymph # (Auto) (1.0-4.3) K/uL [place] # (Auto) (0.0-0.8) K/uL Eos # (Auto) (0.0-0.7) K/uL Baso # (Auto) (0.0-0.2) K/uL Sodium (132-148) mmol/L Potassium (3.6-5.2) mmol/L Chloride (98-107) mmol/L Carbon Dioxide (22-30) mmol/L Anion Gap (10-20) BUN (7-17) mg/dL Creatinine (0.7-1.2) mg/dL Est GFR ( Amer) Est GFR (Non-Af Amer) POC Glucose (mg/dL) 89 115 H 154 H (65-110) mg/dL Random Glucose (65-105) mg/dL Calcium (8.6-10.4) mg/dl Phosphorus (2.5-4.5) mg/dL Magnesium (1.6-2.3) mg/dL Total Bilirubin (0.2-1.3) mg/dL AST (14-36) U/L ALT (9-52) U/L Alkaline Phosphatase (38-126) U/L Total Protein (6.3-8.3) g/dL Albumin (3.5-5.0) g/dL Globulin (2.2-3.9) gm/dL Albumin/Globulin Ratio (1.0-2.1) Prolactin (3.0-18.9) ng/mL Random Vancomycin ug/mL 11/01/18 Range/Units 11:53 WBC (4.8-10.8) K/uL RBC (3.80-5.20) Mil/uL Hgb (11.0-16.0) g/dL Hct (34.0-47.0) % MCV (81.0-99.0) fL MCH (27.0-31.0) pg MCHC (33.0-37.0) g/dL RDW (11.5-14.5) % Plt Count (130-400) K/uL MPV (7.2-11.7) fL Neut % (Auto) (50.0-75.0) % Lymph % (Auto) (20.0-40.0) % [place] % (Auto) (0.0-10.0) % Eos % (Auto) (0.0-4.0) % Baso % (Auto) (0.0-2.0) % Neut # (Auto) (1.8-7.0) K/uL Lymph # (Auto) (1.0-4.3) K/uL [place] # (Auto) (0.0-0.8) K/uL Eos # (Auto) (0.0-0.7) K/uL Baso # (Auto) (0.0-0.2) K/uL Sodium (132-148) mmol/L Potassium (3.6-5.2) mmol/L Chloride (98-107) mmol/L Carbon Dioxide (22-30) mmol/L Anion Gap (10-20) BUN (7-17) mg/dL Creatinine (0.7-1.2) mg/dL Est GFR ( Amer) Est GFR (Non-Af Amer) POC Glucose (mg/dL) 329 H (65-110) mg/dL Random Glucose (65-105) mg/dL Calcium (8.6-10.4) mg/dl Phosphorus (2.5-4.5) mg/dL Magnesium (1.6-2.3) mg/dL Total Bilirubin (0.2-1.3) mg/dL AST (14-36) U/L ALT (9-52) U/L Alkaline Phosphatase (38-126) U/L Total Protein (6.3-8.3) g/dL Albumin (3.5-5.0) g/dL Globulin (2.2-3.9) gm/dL Albumin/Globulin Ratio (1.0-2.1) Prolactin (3.0-18.9) ng/mL Random Vancomycin ug/mL Laboratory Results - last 24 hr 11/01/18 11/01/18 11/01/18 11:53 18:31 22:07 WBC RBC Hgb Hct MCV MCH MCHC RDW Plt Count MPV Neut % (Auto) Lymph % (Auto) [place] % (Auto) Eos % (Auto) Baso % (Auto) Neut # (Auto) Lymph # (Auto) [place] # (Auto) Eos # (Auto) Baso # (Auto) Sodium Potassium Chloride Carbon Dioxide Anion Gap BUN Creatinine Est GFR ( Amer) Est GFR (Non-Af Amer) POC Glucose (mg/dL) 329 H 154 H 115 H Random Glucose Calcium Phosphorus Magnesium Total Bilirubin AST ALT Alkaline Phosphatase Total Protein Albumin Globulin Albumin/Globulin Ratio Prolactin Random Vancomycin 11/02/18 11/02/18 11/02/18 00:20 05:45 06:24 WBC RBC Hgb Hct MCV MCH MCHC RDW Plt Count MPV Neut % (Auto) Lymph % (Auto) [place] % (Auto) Eos % (Auto) Baso % (Auto) Neut # (Auto) Lymph # (Auto) [place] # (Auto) Eos # (Auto) Baso # (Auto) Sodium 141 Potassium 3.9 Chloride 107 Carbon Dioxide 22 Anion Gap 17 BUN 28 H Creatinine 6.2 H Est GFR ( Amer) 8 Est GFR (Non-Af Amer) 7 POC Glucose (mg/dL) 89 127 H Random Glucose 103 D Calcium 8.4 L Phosphorus 2.9 Magnesium 1.9 Total Bilirubin 0.5 AST 144 H D ALT 31 Alkaline Phosphatase 99 Total Protein 6.8 Albumin 3.4 L Globulin 3.3 Albumin/Globulin Ratio 1.0 Prolactin Random Vancomycin 11/02/18 11/02/18 11/02/18 06:24 06:26 07:26 WBC 15.9 H RBC 3.67 L Hgb 10.2 L Hct 32.3 L MCV 88.1 D MCH 27.8 MCHC 31.5 L RDW 18.4 H Plt Count 96 L D MPV 12.0 H Neut % (Auto) 65.3 Lymph % (Auto) 13.9 L [place] % (Auto) 10.4 H Eos % (Auto) 9.2 H Baso % (Auto) 1.2 Neut # (Auto) 10.4 H Lymph # (Auto) 2.2 [place] # (Auto) 1.6 H Eos # (Auto) 1.5 H Baso # (Auto) 0.2 Sodium Potassium Chloride Carbon Dioxide Anion Gap BUN Creatinine Est GFR ( Amer) Est GFR (Non-Af Amer) POC Glucose (mg/dL) Random Glucose Calcium Phosphorus 3.2 Magnesium 1.9 Total Bilirubin AST ALT Alkaline Phosphatase Total Protein Albumin Globulin Albumin/Globulin Ratio Prolactin 12.0 Random Vancomycin 31.9 11/02/18 11:50 WBC RBC Hgb Hct MCV MCH MCHC RDW Plt Count MPV Neut % (Auto) Lymph % (Auto) [place] % (Auto) Eos % (Auto) Baso % (Auto) Neut # (Auto) Lymph # (Auto) [place] # (Auto) Eos # (Auto) Baso # (Auto) Sodium Potassium Chloride Carbon Dioxide Anion Gap BUN Creatinine Est GFR ( Amer) Est GFR (Non-Af Amer) POC Glucose (mg/dL) 167 H Random Glucose Calcium Phosphorus Magnesium Total Bilirubin AST ALT Alkaline Phosphatase Total Protein Albumin Globulin Albumin/Globulin Ratio Prolactin Random Vancomycin Radiology Impressions: Radiology Impressions Duplex Scan Lower Extremity Artery 10/28/18 11:03 IMPRESSION: Right: No evidence of deep or superficial vein thrombosis of the right lower extremity. Normal valve function noted of the right side. Left: No evidence of deep or superficial vein thrombosis of the left lower extremity. Normal valve function noted of the left side. Fingerstick Blood Sugar Results: 127 Critical Care Progress Note - Ventilator Checklist Head of Bed 30 Degrees: Yes Daily Sedation Vacation: Yes PUD Prophalyxis: Yes DVT Prophylaxis: Yes Oral Care with Chlorhexidine Gluconate {CHG}: Yes - Vent Settings MODE:: PRVC TIDAL VOLUME:: 450 RESP RATE:: 18 FIO2:: 35 PEEP:: 5 - Extremities/Vascular Does the Patient have a Central Venous Catheter?: Yes Insertion Site: Internal Jugular Vein Does the Patient need a Central Venous Catheter?: Yes Does the Patient have a Rodriguez Catheter?: Yes Does the Patient need a Rodriguez Catheter?: Yes - Restraints Justification for Restraints: High risk for self extubation, High risk for removing IV access - Prophylaxis GI Prophylaxis GI: PPI - Prophylaxis DVT Prophylaxis DVT: Heparin SQ Assessment/Plan - Assessment and Plan (Free Text) Plan: Patient is a 72 year old female with PMHx of CKD, CHF, CAD s/p stents, pituitary adenoma a/p resection, DM, who was admitted for respiratory and cardiac arrest s/p permacath placement and AVF on 10/05; possible AMS due to anoxic brain injury, now on HD MWF, tracheostomy on 10/18/17, PEG tube placement 10/23/18. Patient became hypotensive overnight and upgraded to ICU. Permacath removed by surgery on 10/30. A trialysis catheter inserted but dialysis reported the line was not function. A IJ central line inserted for dialysis access. Pt to receive LP today to rule out meningitis. Neuro - Intubated - continue Keppra 1000mg BID - Valproate started per Neuro - Lumbar Puncture to r/o meningitis - not done due to patient INR 1.7 - will re- evaluate after INR improved -24 hour video EEG per Neuro - f/u Neuro recs Cardiac - Hypotensive 2/2 to possible sepsis vs hypovolemia shock vs septic shock - Levophed drip at 13mcg - 1L bolus over 2 hours - Echo 11/01: Left Ventricle systolic function is normal; EF is 55-60%; hypertensive heart disease; diastolic dysfunction; no AR, MR, pulmonary hypertension; trace to mild tricuspid regurgitation. - continue to monitor vitals - continue Crestor 10mg, ASA 81mg Pulm - Intubated, current vent settings PRVC 14/450/5/35 - Pressure support trials - CXR 10/30: No active pulmonary disease GI - PEG tube in place - cont Tube feeds as per dietary change solution to Osmolite 1.2 with goal of 60ml/hr - protonix ppx - CT abdomen/pelvis 10/30: fluid and gas filled distended rectum versus perirectal abscess. Evidence of anastomotic bowel suture material and/or rectal tube/packing material. - Rectal tube removed - f/u surgery recs Renal - HD schedule: TTHS - Left IJ catheter inserted 11/01 for dialysis - continue Procrit Endo - Hx of Hypothyroidism, continue levothyroxine 50mg - Hx of DM, continue Levemir 40 units HS and Levemir 30 units daily - ISS increased to high - Cortef 5mg - AM Cortisol level 18.9 - random glucose today 103 Heme - H/H 10.2/32.3 - INR 1.8 - monitor CBC - INR 1.7 - give 1 unit of FFP - follow up am coags ID - Hypotensive 2/2 possible sepsis - Febrile, Tmax 102F - WBC 15.9 today, continue to monitor - Procal 4.24 yesterday - Permacath possible source of infection, removed by surgery 10/30 - continue Abx: Meropenem, Flagyl - Vanc trough 31.9 today, Vanco on hold - 10/30 blood cx and sputum cx: negative after 48 hours - 10/30 sputum cx positive: Yeast species - c.diff negative - continue fluconazole 100mg PPx - Protonix for GI ppx - DVT ppx: SCDs, Heparin SC - Tylenol PRN for fever Plan discussed with Dr Maxime Patton, PGY-1 - Date & Time Date: 11/02/18 Time: 10:00 <Corona Swartz - Last Filed: 11/03/18 14:55> CCU Objective - Vital Signs / Intake & Output Vital Signs (Last 4 hours): Vital Signs Temp Pulse Resp BP Pulse Ox 11/02/18 12:00 99.0 F 106 H 20 98 11/02/18 11:59 105 H 21 116/44 L 98 11/02/18 11:44 100 H 21 118/45 L 98 11/02/18 11:29 102 H 19 123/45 L 98 11/02/18 11:14 107 H 20 123/45 L 96 11/02/18 11:00 102 H 20 100 11/02/18 10:59 100 H 24 72/39 L 96 11/02/18 10:44 109 H 19 124/51 L 98 11/02/18 10:30 106 H 23 114/50 L 99 11/02/18 10:16 101 H 21 95/36 L 100 11/02/18 10:14 101 H 25 H 79/38 L 100 11/02/18 10:00 107 H 28 H 100 11/02/18 09:59 110 H 21 85/41 L 100 Intake and Output (Last 8hrs): Intake & Output 11/01/18 11/02/18 11/02/18 22:59 06:59 14:59 Intake Total 1889.2 849.0 1322.0 Balance 1889.2 849.0 1322.0 Intake: IV 55 453 Intake, IV Amount 1759.2 396.0 1197.0 Left Femoral 1500 Left Upper arm 50 900 left trialysis IJ 209.2 396.0 297.0 Oral 25 Tube Feeding 125 Other 50 Other: # Bowel Movements 1 1 1 - Medications Active Medications: Active Medications Generic Name Dose Route Start Last Admin Trade Name Freq PRN Reason Stop Dose Admin Acetaminophen 650 mg 10/25/18 03:30 11/02/18 08:18 Tylenol 650mg/20.3ml Solution Ud PO 650 mg Q6 PRN Administration pain+fever Aspirin 81 mg 10/08/18 10:00 11/02/18 09:12 Aspirin Chewable PO 81 mg DAILY JOCELYN Administration Dextrose 0 ml 11/01/18 12:14 Dextrose 50% Inj IV STAT PRN Hypoglycemia Protocol Protocol Dextrose 0 gm 11/01/18 12:14 Glutose 15 PO ONCE PRN Hypoglycemia Protocol Protocol Epoetin Dedrick 10,000 unit 11/01/18 14:00 11/01/18 16:10 Procrit IV 10,000 unit TTS JOCELYN Administration Glucagon 0 mg 11/01/18 12:14 Glucagen Diagnostic Kit IM STAT PRN Hypoglycemia Protocol Protocol Heparin Sodium (Porcine) 5,000 units 10/15/18 10:00 11/02/18 09:13 Heparin SC Not Given Q12 JOCELYN Heparin Sodium (Porcine) 1,000 units 11/01/18 16:15 11/01/18 15:30 Heparin IVP 1,000 units ONCE JOCELYN Administration Hydrocortisone 5 mg 10/31/18 10:00 11/02/18 09:12 Cortef PO 11/03/18 10:00 5 mg DAILY JOCELYN Administration Norepinephrine Bitartrate 4 mg 254 mls @ 15.24 mls/hr 10/30/18 07:25 11/02/18 04:30 / Sodium Chloride IV 13 mcg/min .[id number] PRN 49.53 mls/hr TITRATE PER MD ORDER Administration Protocol 4 MCG/MIN Meropenem 500 mg/ Sodium 100 mls @ 100 mls/hr 10/30/18 15:30 11/02/18 09:14 Chloride IVPB 100 mls/hr DAILY JOCELYN Administration Protocol Vancomycin HCl 500 mg/ Sodium 100 mls @ 100 mls/hr 10/31/18 09:00 10/31/18 12:44 Chloride IVPB Not Given MWF JOCELYN Protocol Fluconazole 100 mg/ 50 mls @ 100 mls/hr 11/01/18 13:00 11/01/18 19:06 Miscellaneous IVPB 100 mls/hr Q24H JOCELYN Administration Protocol Dextrose 1,000 mls @ 0 mls/hr 11/01/18 12:14 Dextrose 5% In Water 1000 Ml IV .Q0M PRN Hypoglycemia Protocol Protocol Per Protocol Valproate Sodium 500 mg/ 105 mls @ 50 mls/hr 11/01/18 22:00 11/02/18 09:14 Sodium Chloride IVPB 50 mls/hr Q12 JOCELYN Administration Insulin Aspart 0 unit 10/31/18 12:00 11/02/18 06:44 Novolog SC Not Given Q6H [facility] Protocol Insulin Detemir 40 unit 10/28/18 22:00 11/01/18 22:27 Levemir SC Not Given HS [facility] Insulin Detemir 30 unit 11/02/18 10:00 Levemir SC DAILY [facility] Levetiracetam 1,000 mg 10/28/18 18:00 11/02/18 09:12 Keppra PO 1,000 mg BID JOCELYN Administration Levothyroxine Sodium 50 mcg 09/29/18 08:00 11/02/18 07:00 Synthroid PO 50 mcg 0600 JOCELYN Administration Metronidazole 500 mg 10/30/18 14:15 11/02/18 06:50 Flagyl PO 500 mg Q8 JOCELYN Administration Protocol Pantoprazole Sodium 40 mg 10/09/18 06:00 11/02/18 06:50 Protonix Susp PO 40 mg 0600 JOCELYN Administration Rosuvastatin Calcium 10 mg 09/30/18 22:00 11/01/18 22:26 Crestor PO 10 mg HS JOCELYN Administration Saccharomyces Boulardii 250 mg 11/01/18 10:00 11/02/18 09:12 Florastor PO 250 mg TID JOCELYN Administration - Patient Studies Lab Studies: Microbiology Studies 10/30/18 08:29 Blood Culture - Preliminary Blood NO GROWTH AFTER 3 DAYS 10/30/18 08:29 Blood Culture - Preliminary Blood NO GROWTH AFTER 3 DAYS 10/30/18 08:29 Gram Stain - Final Sputum Sputum Culture - Final Yeast Species Lab Studies 11/02/18 11/02/18 11/02/18 Range/Units 13:14 11:50 07:26 WBC (4.8-10.8) K/uL RBC (3.80-5.20) Mil/uL Hgb (11.0-16.0) g/dL Hct (34.0-47.0) % MCV (81.0-99.0) fL MCH (27.0-31.0) pg MCHC (33.0-37.0) g/dL RDW (11.5-14.5) % Plt Count (130-400) K/uL MPV (7.2-11.7) fL Neut % (Auto) (50.0-75.0) % Lymph % (Auto) (20.0-40.0) % [place] % (Auto) (0.0-10.0) % Eos % (Auto) (0.0-4.0) % Baso % (Auto) (0.0-2.0) % Neut # (Auto) (1.8-7.0) K/uL Lymph # (Auto) (1.0-4.3) K/uL [place] # (Auto) (0.0-0.8) K/uL Eos # (Auto) (0.0-0.7) K/uL Baso # (Auto) (0.0-0.2) K/uL PT 19.8 H (9.7-12.2) SECONDS INR 1.8 APTT 53 H (21-34) SECONDS Sodium (132-148) mmol/L Potassium (3.6-5.2) mmol/L Chloride (98-107) mmol/L Carbon Dioxide (22-30) mmol/L Anion Gap (10-20) BUN (7-17) mg/dL Creatinine (0.7-1.2) mg/dL Est GFR ( Amer) Est GFR (Non-Af Amer) POC Glucose (mg/dL) 167 H (65-110) mg/dL Random Glucose (65-105) mg/dL Calcium (8.6-10.4) mg/dl Phosphorus 3.2 (2.5-4.5) mg/dL Magnesium 1.9 (1.6-2.3) mg/dL Total Bilirubin (0.2-1.3) mg/dL AST (14-36) U/L ALT (9-52) U/L Alkaline Phosphatase (38-126) U/L Total Protein (6.3-8.3) g/dL Albumin (3.5-5.0) g/dL Globulin (2.2-3.9) gm/dL Albumin/Globulin Ratio (1.0-2.1) Prolactin 12.0 (3.0-18.9) ng/mL Random Vancomycin ug/mL 11/02/18 11/02/18 11/02/18 Range/Units 06:26 06:24 06:24 WBC 15.9 H (4.8-10.8) K/uL RBC 3.67 L (3.80-5.20) Mil/uL Hgb 10.2 L (11.0-16.0) g/dL Hct 32.3 L (34.0-47.0) % MCV 88.1 D (81.0-99.0) fL MCH 27.8 (27.0-31.0) pg MCHC 31.5 L (33.0-37.0) g/dL RDW 18.4 H (11.5-14.5) % Plt Count 96 L D (130-400) K/uL MPV 12.0 H (7.2-11.7) fL Neut % (Auto) 65.3 (50.0-75.0) % Lymph % (Auto) 13.9 L (20.0-40.0) % [place] % (Auto) 10.4 H (0.0-10.0) % Eos % (Auto) 9.2 H (0.0-4.0) % Baso % (Auto) 1.2 (0.0-2.0) % Neut # (Auto) 10.4 H (1.8-7.0) K/uL Lymph # (Auto) 2.2 (1.0-4.3) K/uL [place] # (Auto) 1.6 H (0.0-0.8) K/uL Eos # (Auto) 1.5 H (0.0-0.7) K/uL Baso # (Auto) 0.2 (0.0-0.2) K/uL PT (9.7-12.2) SECONDS INR APTT (21-34) SECONDS Sodium 141 (132-148) mmol/L Potassium 3.9 (3.6-5.2) mmol/L Chloride 107 (98-107) mmol/L Carbon Dioxide 22 (22-30) mmol/L Anion Gap 17 (10-20) BUN 28 H (7-17) mg/dL Creatinine 6.2 H (0.7-1.2) mg/dL Est GFR ( Amer) 8 Est GFR (Non-Af Amer) 7 POC Glucose (mg/dL) (65-110) mg/dL Random Glucose 103 D (65-105) mg/dL Calcium 8.4 L (8.6-10.4) mg/dl Phosphorus 2.9 (2.5-4.5) mg/dL Magnesium 1.9 (1.6-2.3) mg/dL Total Bilirubin 0.5 (0.2-1.3) mg/dL AST 144 H D (14-36) U/L ALT 31 (9-52) U/L Alkaline Phosphatase 99 (38-126) U/L Total Protein 6.8 (6.3-8.3) g/dL Albumin 3.4 L (3.5-5.0) g/dL Globulin 3.3 (2.2-3.9) gm/dL Albumin/Globulin Ratio 1.0 (1.0-2.1) Prolactin (3.0-18.9) ng/mL Random Vancomycin 31.9 ug/mL 11/02/18 11/02/18 11/01/18 Range/Units 05:45 00:20 22:07 WBC (4.8-10.8) K/uL RBC (3.80-5.20) Mil/uL Hgb (11.0-16.0) g/dL Hct (34.0-47.0) % MCV (81.0-99.0) fL MCH (27.0-31.0) pg MCHC (33.0-37.0) g/dL RDW (11.5-14.5) % Plt Count (130-400) K/uL MPV (7.2-11.7) fL Neut % (Auto) (50.0-75.0) % Lymph % (Auto) (20.0-40.0) % [place] % (Auto) (0.0-10.0) % Eos % (Auto) (0.0-4.0) % Baso % (Auto) (0.0-2.0) % Neut # (Auto) (1.8-7.0) K/uL Lymph # (Auto) (1.0-4.3) K/uL [place] # (Auto) (0.0-0.8) K/uL Eos # (Auto) (0.0-0.7) K/uL Baso # (Auto) (0.0-0.2) K/uL PT (9.7-12.2) SECONDS INR APTT (21-34) SECONDS Sodium (132-148) mmol/L Potassium (3.6-5.2) mmol/L Chloride (98-107) mmol/L Carbon Dioxide (22-30) mmol/L Anion Gap (10-20) BUN (7-17) mg/dL Creatinine (0.7-1.2) mg/dL Est GFR ( Amer) Est GFR (Non-Af Amer) POC Glucose (mg/dL) 127 H 89 115 H (65-110) mg/dL Random Glucose (65-105) mg/dL Calcium (8.6-10.4) mg/dl Phosphorus (2.5-4.5) mg/dL Magnesium (1.6-2.3) mg/dL Total Bilirubin (0.2-1.3) mg/dL AST (14-36) U/L ALT (9-52) U/L Alkaline Phosphatase (38-126) U/L Total Protein (6.3-8.3) g/dL Albumin (3.5-5.0) g/dL Globulin (2.2-3.9) gm/dL Albumin/Globulin Ratio (1.0-2.1) Prolactin (3.0-18.9) ng/mL Random Vancomycin ug/mL 11/01/18 11/01/18 Range/Units 18:31 11:53 WBC (4.8-10.8) K/uL RBC (3.80-5.20) Mil/uL Hgb (11.0-16.0) g/dL Hct (34.0-47.0) % MCV (81.0-99.0) fL MCH (27.0-31.0) pg MCHC (33.0-37.0) g/dL RDW (11.5-14.5) % Plt Count (130-400) K/uL MPV (7.2-11.7) fL Neut % (Auto) (50.0-75.0) % Lymph % (Auto) (20.0-40.0) % [place] % (Auto) (0.0-10.0) % Eos % (Auto) (0.0-4.0) % Baso % (Auto) (0.0-2.0) % Neut # (Auto) (1.8-7.0) K/uL Lymph # (Auto) (1.0-4.3) K/uL [place] # (Auto) (0.0-0.8) K/uL Eos # (Auto) (0.0-0.7) K/uL Baso # (Auto) (0.0-0.2) K/uL PT (9.7-12.2) SECONDS INR APTT (21-34) SECONDS Sodium (132-148) mmol/L Potassium (3.6-5.2) mmol/L Chloride (98-107) mmol/L Carbon Dioxide (22-30) mmol/L Anion Gap (10-20) BUN (7-17) mg/dL Creatinine (0.7-1.2) mg/dL Est GFR ( Amer) Est GFR (Non-Af Amer) POC Glucose (mg/dL) 154 H 329 H (65-110) mg/dL Random Glucose (65-105) mg/dL Calcium (8.6-10.4) mg/dl Phosphorus (2.5-4.5) mg/dL Magnesium (1.6-2.3) mg/dL Total Bilirubin (0.2-1.3) mg/dL AST (14-36) U/L ALT (9-52) U/L Alkaline Phosphatase (38-126) U/L Total Protein (6.3-8.3) g/dL Albumin (3.5-5.0) g/dL Globulin (2.2-3.9) gm/dL Albumin/Globulin Ratio (1.0-2.1) Prolactin (3.0-18.9) ng/mL Random Vancomycin ug/mL Laboratory Results - last 24 hr 11/01/18 11/01/18 11/01/18 11:53 18:31 22:07 WBC RBC Hgb Hct MCV MCH MCHC RDW Plt Count MPV Neut % (Auto) Lymph % (Auto) [place] % (Auto) Eos % (Auto) Baso % (Auto) Neut # (Auto) Lymph # (Auto) [place] # (Auto) Eos # (Auto) Baso # (Auto) PT INR APTT Sodium Potassium Chloride Carbon Dioxide Anion Gap BUN Creatinine Est GFR ( Amer) Est GFR (Non-Af Amer) POC Glucose (mg/dL) 329 H 154 H 115 H Random Glucose Calcium Phosphorus Magnesium Total Bilirubin AST ALT Alkaline Phosphatase Total Protein Albumin Globulin Albumin/Globulin Ratio Prolactin Random Vancomycin 11/02/18 11/02/18 11/02/18 00:20 05:45 06:24 WBC RBC Hgb Hct MCV MCH MCHC RDW Plt Count MPV Neut % (Auto) Lymph % (Auto) [place] % (Auto) Eos % (Auto) Baso % (Auto) Neut # (Auto) Lymph # (Auto) [place] # (Auto) Eos # (Auto) Baso # (Auto) PT INR APTT Sodium 141 Potassium 3.9 Chloride 107 Carbon Dioxide 22 Anion Gap 17 BUN 28 H Creatinine 6.2 H Est GFR ( Amer) 8 Est GFR (Non-Af Amer) 7 POC Glucose (mg/dL) 89 127 H Random Glucose 103 D Calcium 8.4 L Phosphorus 2.9 Magnesium 1.9 Total Bilirubin 0.5 AST 144 H D ALT 31 Alkaline Phosphatase 99 Total Protein 6.8 Albumin 3.4 L Globulin 3.3 Albumin/Globulin Ratio 1.0 Prolactin Random Vancomycin 11/02/18 11/02/18 11/02/18 06:24 06:26 07:26 WBC 15.9 H RBC 3.67 L Hgb 10.2 L Hct 32.3 L MCV 88.1 D MCH 27.8 MCHC 31.5 L RDW 18.4 H Plt Count 96 L D MPV 12.0 H Neut % (Auto) 65.3 Lymph % (Auto) 13.9 L [place] % (Auto) 10.4 H Eos % (Auto) 9.2 H Baso % (Auto) 1.2 Neut # (Auto) 10.4 H Lymph # (Auto) 2.2 [place] # (Auto) 1.6 H Eos # (Auto) 1.5 H Baso # (Auto) 0.2 PT INR APTT Sodium Potassium Chloride Carbon Dioxide Anion Gap BUN Creatinine Est GFR ( Amer) Est GFR (Non-Af Amer) POC Glucose (mg/dL) Random Glucose Calcium Phosphorus 3.2 Magnesium 1.9 Total Bilirubin AST ALT Alkaline Phosphatase Total Protein Albumin Globulin Albumin/Globulin Ratio Prolactin 12.0 Random Vancomycin 31.9 11/02/18 11/02/18 11:50 13:14 WBC RBC Hgb Hct MCV MCH MCHC RDW Plt Count MPV Neut % (Auto) Lymph % (Auto) [place] % (Auto) Eos % (Auto) Baso % (Auto) Neut # (Auto) Lymph # (Auto) [place] # (Auto) Eos # (Auto) Baso # (Auto) PT 19.8 H INR 1.8 APTT 53 H Sodium Potassium Chloride Carbon Dioxide Anion Gap BUN Creatinine Est GFR ( Amer) Est GFR (Non-Af Amer) POC Glucose (mg/dL) 167 H Random Glucose Calcium Phosphorus Magnesium Total Bilirubin AST ALT Alkaline Phosphatase Total Protein Albumin Globulin Albumin/Globulin Ratio Prolactin Random Vancomycin Attending/Attestation - Attestation I have personally seen and examined this patient.: Yes I have fully participated in the care of the patient.: Yes I have reviewed all pertinent clinical information: Yes Notes (Text): 11/02/18 13:58 I have seen and examined the patient. Medical records, lab studies, and imaging were reviewed by me and a management plan was formulated on multidisciplinary rounds with resident Dr. Patton. I agree with their documented assessment and plan. Patient is going to get lumbar puncture, to be done by anesthesia, to r/o meningitis. 24h VEEG being set up to r/o status epilepticus. Patient is also hypotensive and in septic shock or hypovolemic shock. High mortality risk. Critical Care Time 35 minutes. Multi-disciplinary rounds were performed with house staff, nursing, speech therapy, respiratory therapy, pharmacy and nutrition with integrated input from the primary team/attending and other consulting services. The documented time is cumulative and includes review of patient data/exams/labs/chart review and examination of the patient on rounds and throughout the day; time is exclusive of any procedures or teaching time.
--- NOTE | 2018-11-02 13:03 | CARD ---
APPROVED REPORT Date of service: 11/01/2018 EXAM: LIMITED Two-dimensional and M-mode echocardiogram with Doppler and color Doppler. Other Information Quality : LimitedRhythm : Technically limited study due to body habitus. INDICATION patient was on vent and restless 2D DIMENSIONS IVC0.00 cm Mitral Valve MV E Cnrgicru72.1cm/sMV A Apqrxnpt68.9cm/sE/A ratio0.7 TDI Lateral E' Peak V8.80cm/sMedial E' Peak V5.38cm/sE/Lateral E'5.7 E/Medial E'9.3 Tricuspid Valve TR Peak Eboydlxh133ew/sTR Peak [id number] LEFT VENTRICLE The left ventricle is normal size. There is borderline concentric left ventricular hypertrophy. Left ventricle systolic function is normal. The Ejection Fraction is 55-60%. There is normal LV segmental wall motion. Tissue Doppler imaging reveals abnormal left ventricular diastolic dysfunction. RIGHT VENTRICLE The right ventricle is normal size. There is normal right ventricular wall thickness. The right ventricular systolic function is normal. ATRIA The left atrium size is normal. The right atrium size is normal. The interatrial septum is intact with no evidence for an atrial septal defect. AORTIC VALVE The aortic valve is normal in structure. No aortic regurgitation is present. There is no aortic valvular stenosis. MITRAL VALVE The mitral valve is normal in structure. There is no evidence of mitral valve prolapse. There is no mitral valve stenosis. There is no mitral valve regurgitation noted. TRICUSPID VALVE The tricuspid valve is normal in structure. There is trace to mild tricuspid regurgitation. Right ventricular systolic pressure is estimated at less than 30 mmHg. There is no pulmonary hypertension. PULMONIC VALVE The pulmonic valve is not well visualized. There is no pulmonic valvular regurgitation. GREAT VESSELS The aortic root is normal in size. PERICARDIAL EFFUSION There is no significant pericardial effusion. <Conclusion> Left ventricle systolic function is normal. The Ejection Fraction is 55-60%. Hypertensive heart disease. Diastolic dysfunction. No aortic regurgitation is present. There is no mitral valve regurgitation noted. There is trace to mild tricuspid regurgitation. There is no pulmonary hypertension. There is no pulmonic valvular regurgitation.
[2018-11-02 13:25] LABS: INR 1.8; PROTHROMBIN TIME 19.8 SECONDS (9.7-12.2)
--- NOTE | 2018-11-02 13:32 | CP.PCM.PN ---
Subjective - Date & Time of Evaluation Date of Evaluation: 11/02/18 Time of Evaluation: 13:29 - Subjective Subjective: s/p dialysis 11/01 new IJ cath not working well BP low- on levo drip on PEG feeds, trached Same confused mental status Objective - Vital Signs/Intake and Output Vital Signs (last 24 hours): Temp Pulse Resp BP Pulse Ox 99.0 F 106 H 20 116/44 L 98 11/02/18 12:00 11/02/18 12:00 11/02/18 12:00 11/02/18 11:59 11/02/18 12:00 Intake and Output: 11/02/18 11/02/18 06:59 18:59 Intake Total 1163.2 1322.0 Balance 1163.2 1322.0 - Medications Medications: Current Medications Acetaminophen (Tylenol 650mg/20.3ml Solution Ud) 650 mg PO Q6 PRN PRN Reason: pain+fever Last Admin: 11/02/18 08:18 Dose: 650 mg Alteplase, Recombinant (Cathflo 2 Mg Inj) 2 mg IV ONCE ONE Stop: 11/02/18 12:45 Aspirin (Aspirin Chewable) 81 mg PO DAILY [facility] Last Admin: 11/02/18 09:12 Dose: 81 mg Dextrose (Dextrose 50% Inj) 0 ml IV STAT PRN; Protocol PRN Reason: Hypoglycemia Protocol Dextrose (Glutose 15) 0 gm PO ONCE PRN; Protocol PRN Reason: Hypoglycemia Protocol Epoetin Dedrick (Procrit) 10,000 unit IV TTS [facility] Last Admin: 11/01/18 16:10 Dose: 10,000 unit Glucagon (Glucagen Diagnostic Kit) 0 mg IM STAT PRN; Protocol PRN Reason: Hypoglycemia Protocol Heparin Sodium (Porcine) (Heparin) 5,000 units SC Q12 [facility] Last Admin: 11/02/18 09:13 Dose: Not Given Heparin Sodium (Porcine) (Heparin) 1,000 units IVP ONCE [facility] Last Admin: 11/01/18 15:30 Dose: 1,000 units Hydrocortisone (Cortef) 5 mg PO DAILY [facility] Stop: 11/03/18 10:00 Last Admin: 11/02/18 09:12 Dose: 5 mg Norepinephrine Bitartrate 4 mg (/ Sodium Chloride) 254 mls @ 15.24 mls/hr IV .[id number] PRN; Protocol PRN Reason: TITRATE PER MD ORDER Last Admin: 11/02/18 04:30 Dose: 13 mcg/min, 49.53 mls/hr Meropenem 500 mg/ Sodium (Chloride) 100 mls @ 100 mls/hr IVPB DAILY [facility]; Protocol Last Admin: 11/02/18 09:14 Dose: 100 mls/hr Vancomycin HCl 500 mg/ Sodium (Chloride) 100 mls @ 100 mls/hr IVPB MWF [facility]; Protocol Last Admin: 10/31/18 12:44 Dose: Not Given Fluconazole 100 mg/ (Miscellaneous) 50 mls @ 100 mls/hr IVPB Q24H [facility]; Protocol Last Admin: 11/01/18 19:06 Dose: 100 mls/hr Dextrose (Dextrose 5% In Water 1000 Ml) 1,000 mls @ 0 mls/hr IV .Q0M PRN; Protocol PRN Reason: Hypoglycemia Protocol Valproate Sodium 500 mg/ (Sodium Chloride) 105 mls @ 50 mls/hr IVPB Q12 [facility] Last Admin: 11/02/18 09:14 Dose: 50 mls/hr Insulin Aspart (Novolog) 0 unit SC Q6H [facility]; Protocol Last Admin: 11/02/18 06:44 Dose: Not Given Insulin Detemir (Levemir) 40 unit SC HS [facility] Last Admin: 11/01/18 22:27 Dose: Not Given Insulin Detemir (Levemir) 30 unit SC DAILY [facility] Levetiracetam (Keppra) 1,000 mg PO BID [facility] Last Admin: 11/02/18 09:12 Dose: 1,000 mg Levothyroxine Sodium (Synthroid) 50 mcg PO 0600 [facility] Last Admin: 11/02/18 07:00 Dose: 50 mcg Metronidazole (Flagyl) 500 mg PO Q8 [facility]; Protocol Last Admin: 11/02/18 06:50 Dose: 500 mg Pantoprazole Sodium (Protonix Susp) 40 mg PO 0600 [facility] Last Admin: 11/02/18 06:50 Dose: 40 mg Rosuvastatin Calcium (Crestor) 10 mg PO HS [facility] Last Admin: 11/01/18 22:26 Dose: 10 mg Saccharomyces Boulardii (Florastor) 250 mg PO TID [facility] Last Admin: 11/02/18 09:12 Dose: 250 mg - Labs Labs: 11/02/18 06:26 02/01/19 06:24 PT 19.8 SECONDS (9.7-12.2) H 11/02/18 13:14 INR 1.8 11/02/18 13:14 APTT 53 SECONDS (21-34) H 11/02/18 13:14 - Constitutional Appears: In Acute Distress, Confused, Chronically Ill - Head Exam Head Exam: ATRAUMATIC, NORMAL INSPECTION - Eye Exam Eye Exam: EOMI, Normal appearance - Neck Exam Neck Exam: Normal Inspection. absent: Tenderness - Respiratory Exam Respiratory Exam: Rhonchi, Respiratory Distress - Cardiovascular Exam Cardiovascular Exam: REGULAR RHYTHM, +S1 - GI/Abdominal Exam GI & Abdominal Exam: Soft. absent: Tenderness - Extremities Exam Extremities Exam: Normal Inspection. absent: Tenderness - Neurological Exam Neurological Exam: Alert, CN II-XII Intact - Skin Skin Exam: Dry, Warm Assessment and Plan (1) ESRD (end stage renal disease) Status: Acute (2) Diabetic nephropathy associated with type 2 diabetes mellitus Status: Acute (3) CAD (coronary artery disease) Status: Acute (4) HTN (hypertension) Status: Acute - Assessment and Plan (Free Text) Plan: Same dialysis- now TTS Trial TPA in cath, then try dialysis in AM IV levo- monitor BP Increase PEG feeds if possible monitor mental status
[2018-11-02] MEDS: Fluconazole IV 200mg/100 ml NS 100 MG in Premixed IV 1 EA IVPB SCH (13:51)
--- NOTE | 2018-11-02 14:02 | CP.PCM.PCO ---
Assessment & Plan - Assessment and Plan (Free Text) Assessment: Pt is a 72 female with multiple co-morbidities. Anesthesia was consulted for lumbar puncture. At this time, patients coags are abnormal with an INR of 1.8. due to the increased risk of epidural hematoma, lumbar puncture will be delayed until coags are corrected/ normalized. thank you
[2018-11-02] MEDS: Insulin Detemir 100 units/ml Vial (Levemir) SC SCH ×2 (14:39→21:54)
--- NOTE | 2018-11-02 21:43 | CP.PCM.PN ---
Subjective - Date & Time of Evaluation Date of Evaluation: 11/02/18 Time of Evaluation: 13:00 - Subjective Subjective: dictated Objective - Vital Signs/Intake and Output Vital Signs (last 24 hours): Temp Pulse Resp BP Pulse Ox 102 F H 90 14 98/38 L 98 11/02/18 16:00 11/02/18 18:34 11/02/18 18:34 11/02/18 18:34 11/02/18 18:34 Intake and Output: 11/02/18 11/03/18 18:59 06:59 Intake Total 2604.8 Balance 2604.8 - Medications Medications: Current Medications Acetaminophen (Tylenol 650mg/20.3ml Solution Ud) 650 mg PO Q6 PRN PRN Reason: pain+fever Last Admin: 11/02/18 08:18 Dose: 650 mg Aspirin (Aspirin Chewable) 81 mg PO DAILY [facility] Last Admin: 11/02/18 09:12 Dose: 81 mg Dextrose (Dextrose 50% Inj) 0 ml IV STAT PRN; Protocol PRN Reason: Hypoglycemia Protocol Dextrose (Glutose 15) 0 gm PO ONCE PRN; Protocol PRN Reason: Hypoglycemia Protocol Epoetin Dedrick (Procrit) 10,000 unit IV TTS [facility] Last Admin: 11/01/18 16:10 Dose: 10,000 unit Glucagon (Glucagen Diagnostic Kit) 0 mg IM STAT PRN; Protocol PRN Reason: Hypoglycemia Protocol Heparin Sodium (Porcine) (Heparin) 5,000 units SC Q12 [facility] Last Admin: 11/02/18 09:13 Dose: Not Given Heparin Sodium (Porcine) (Heparin) 1,000 units IVP ONCE [facility] Last Admin: 11/01/18 15:30 Dose: 1,000 units Hydrocortisone (Cortef) 5 mg PO DAILY [facility] Stop: 11/03/18 10:00 Last Admin: 11/02/18 09:12 Dose: 5 mg Norepinephrine Bitartrate 4 mg (/ Sodium Chloride) 254 mls @ 15.24 mls/hr IV .[id number] PRN; Protocol PRN Reason: TITRATE PER MD ORDER Last Admin: 11/02/18 14:54 Dose: 6 mcg/min, 22.86 mls/hr Meropenem 500 mg/ Sodium (Chloride) 100 mls @ 100 mls/hr IVPB DAILY [facility]; Protocol Last Admin: 11/02/18 09:14 Dose: 100 mls/hr Vancomycin HCl 500 mg/ Sodium (Chloride) 100 mls @ 100 mls/hr IVPB MWF [facility]; Protocol Last Admin: 10/31/18 12:44 Dose: Not Given Fluconazole 100 mg/ (Miscellaneous) 50 mls @ 100 mls/hr IVPB Q24H [facility]; Protocol Last Admin: 11/02/18 13:51 Dose: 100 mls/hr Dextrose (Dextrose 5% In Water 1000 Ml) 1,000 mls @ 0 mls/hr IV .Q0M PRN; Protocol PRN Reason: Hypoglycemia Protocol Valproate Sodium 500 mg/ (Sodium Chloride) 105 mls @ 50 mls/hr IVPB Q12 [facility] Last Admin: 11/02/18 09:14 Dose: 50 mls/hr Insulin Aspart (Novolog) 0 unit SC Q6H [facility]; Protocol Last Admin: 11/02/18 19:11 Dose: 6 u Insulin Detemir (Levemir) 40 unit SC [facility] Last Admin: 11/01/18 22:27 Dose: Not Given Insulin Detemir (Levemir) 30 unit SC DAILY [facility] Last Admin: 11/02/18 14:39 Dose: Not Given Levetiracetam (Keppra) 1,000 mg PO BID [facility] Last Admin: 11/02/18 19:10 Dose: 1,000 mg Levothyroxine Sodium (Synthroid) 50 mcg PO 0600 [facility] Last Admin: 11/02/18 07:00 Dose: 50 mcg Metronidazole (Flagyl) 500 mg PO Q8 [facility]; Protocol Last Admin: 11/02/18 14:51 Dose: 500 mg Pantoprazole Sodium (Protonix Susp) 40 mg PO 0600 [facility] Last Admin: 11/02/18 06:50 Dose: 40 mg Rosuvastatin Calcium (Crestor) 10 mg PO HS [facility] Last Admin: 11/01/18 22:26 Dose: 10 mg Saccharomyces Boulardii (Florastor) 250 mg PO TID [facility] Last Admin: 11/02/18 19:10 Dose: 250 mg - Labs Labs: 11/02/18 06:26 11/02/18 06:24 PT 19.8 SECONDS (9.7-12.2) H 11/02/18 13:14 INR 1.8 11/02/18 13:14 APTT 53 SECONDS (21-34) H 11/02/18 13:14
--- NOTE | 2018-11-03 00:43 | PN ---
DATE: 11/02/2018 The patient remains unresponsive and is on the trach-vent. She was not moving around so much today. I guess they may have sedated as the sterile processing technician was trying to do a 24-hour ROBERT on her. There were some plans for LP. 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 She had some [employer] issues in the past. Remains unresponsive and has been spiking temp. She has 102 now at 4 o'clock after I left. Pulse is 82. Respirations are on the trach-vent. Blood pressure remains 121/44. She also has a PEG tube. We will need to make sure that the PEG tube site is unremarkable. Her meropenem has . I will renew it. She remains on Flagyl. She also has diarrhea. We will put her on vancomycin p.o. via the tube. She is on Diflucan, Merrem and Flagyl at this time and also on vancomycin, so she is on like four drugs, but continues to have fever, etiology of which remains unclear at this time. She is anoxic. I am not sure if it is central fever. I was told that there is no abscess at the rectal site that was a flexi tube there. White count is 15.9, hemoglobin 10.2, hematocrit 32.3, platelet count is 96. White count has come down, but the platelets also decreased at this time. Her neutrophils are 65.3 and eosinophils are 9.2. They had decreased on 10/30/2018 and 11/01/2018, and now again it shows eosinophilia. Micro daniels, sputum showed yeast. Blood cultures were negative. Catheter tip was negative. We will have to do a catheterized urine, I guess, as the patient is a renal patient. We will order that. The patient is going to also get an LP done tomorrow or today as they were planning, but it was held back because of the INR. We will follow. We would renew the Merrem at this time. Stool C. difficile is negative, however. I was looking for the Doppler reports. Her groin catheter was to be changed, but since she was getting EEG, I could not look at that site. We will follow. Her medications I am going to go through are aspirin. She is on dextrose. She is not given Epogen, fluconazole. We added glucagon, heparin, hydrocortisone, insulin, meropenem, metronidazole, Levophed, pantoprazole, Crestor, Florastor. She is on valproate sodium and vancomycin. If these do not help much, we will see if they do an LP and the findings. We will continue present treatments. She is status post cardiac arrest on prior to when I started to see her. We will follow. Sara Barrios MD
[2018-11-03] MEDS: (Novolog) Insulin Aspart, Recombinant 100 u/ml 10 ml vial SC SCH ×4 (06:00→18:39)
[2018-11-03] MEDS: Levothyroxine 50 MCG TAB PO SCH (06:44)
[2018-11-03] MEDS: Sodium Chloride 0.9% 1,000 ML IV SCH ×2 (07:30→18:30)
--- NOTE | 2018-11-03 07:48 | CP.PCM.PN ---
Subjective - Date & Time of Evaluation Date of Evaluation: 11/02/18 Time of Evaluation: 16:15 - Subjective Subjective: Patient seen and evaluated No new cardiac events noted On Ventilator Physical Examination - Head Exam Head Exam: ATRAUMATIC, NORMAL INSPECTION - Eye Exam Eye Exam: EOMI, Normal appearance, PERRL. absent: Periorbital tenderness Pupil Exam: NORMAL ACCOMODATION - ENT Exam ENT Exam: Mucous Membranes Moist, Normal Oropharynx - Respiratory Exam Respiratory Exam: Clear to Ausculation Bilateral. absent: Prolonged Expiratory Phase, Respiratory Distress - Cardiovascular Exam Cardiovascular Exam: REGULAR RHYTHM, +S1, +S2. absent: Rubs - GI/Abdominal Exam GI & Abdominal Exam: Soft, Normal Bowel Sounds. absent: Hyperactive Bowel Sounds - Extremities Exam Extremities Exam: absent: Pedal Edema - Back Exam Back Exam: NORMAL INSPECTION. absent: CVA tenderness (R), paraspinal tenderness - Neurological Exam Neurological Exam: Altered - Psychiatric Exam Psychiatric exam: Agitated, Normal Affect, Normal Mood - Skin Skin Exam: Dry Assessment and Plan - Assessment and Plan (Free Text) Assessment: 72 year old female with past medical history of CAD, CHF, HTN, HLD, pituitary adenoma, is being seen s/p respiratory arrest during AV fistula placement surgery. s/p permacath on 10-11-18; possible AMS due to anoxic brain injury, now on HD MWF, tracheostomy done on 10/18/17, planning for PEG placement by GI today. Plan: Respiratory failure - Currently intubated and sedated. Management per primary care team - Completed hypothermic protocol -Bedside PEG placement completed today. Medications: Levetiracetam 420mls/hrIVPB Q12H MIR MRSA in trach -Continue Cefepime 1gm ivpb daily -Continue Vancomycin 1gm ivpb mwf Anoxic brain injury -Pending repeat MRI at [facility]. Patient remains agigtated and unable to go for imaging at this time. HTN -Lopressor 12.5mg NG BID MIR HLD -Continue Rosuvastatin 10mg PO HS MIR CAD -Continue Aspirin 81mg PO Daily MIR DM -Levemir 30UNIT sc q12 mir Hypothyroidism -Continue Synthroid 50mcg PO 0600 MIR CKD on HD - S/p right permacath placed on 10/11 -Procrit 10,000 unit IV MWF ppx -Protonix -Heparin Objective - Vital Signs/Intake and Output Vital Signs (last 24 hours): Temp Pulse Resp BP Pulse Ox 101 F H 95 H 21 110/43 L 97 11/03/18 03:00 11/03/18 03:00 11/03/18 03:00 11/03/18 03:00 11/03/18 03:00 Intake and Output: 11/03/18 11/03/18 06:59 18:59 Intake Total 784 Balance 784 - Medications Medications: Current Medications Acetaminophen (Tylenol 650mg/20.3ml Solution Ud) 650 mg PO Q6 PRN PRN Reason: pain+fever Last Admin: 11/02/18 08:18 Dose: 650 mg Aspirin (Aspirin Chewable) 81 mg PO DAILY [facility] Last Admin: 11/02/18 09:12 Dose: 81 mg Dextrose (Dextrose 50% Inj) 0 ml IV STAT PRN; Protocol PRN Reason: Hypoglycemia Protocol Dextrose (Glutose 15) 0 gm PO ONCE PRN; Protocol PRN Reason: Hypoglycemia Protocol Epoetin Dedrick (Procrit) 10,000 unit IV TTS [facility] Last Admin: 11/01/18 16:10 Dose: 10,000 unit Glucagon (Glucagen Diagnostic Kit) 0 mg IM STAT PRN; Protocol PRN Reason: Hypoglycemia Protocol Heparin Sodium (Porcine) (Heparin) 5,000 units SC Q12 [facility] Last Admin: 11/02/18 21:55 Dose: 5,000 units Heparin Sodium (Porcine) (Heparin) 1,000 units IVP ONCE [facility] Last Admin: 11/01/18 15:30 Dose: 1,000 units Hydrocortisone (Cortef) 5 mg PO DAILY [facility] Stop: 11/03/18 10:00 Last Admin: 11/02/18 09:12 Dose: 5 mg Norepinephrine Bitartrate 4 mg (/ Sodium Chloride) 254 mls @ 15.24 mls/hr IV .[id number] PRN; Protocol PRN Reason: TITRATE PER MD ORDER Last Admin: 11/02/18 21:49 Dose: 6 mcg/min, 22.86 mls/hr Meropenem 500 mg/ Sodium (Chloride) 100 mls @ 100 mls/hr IVPB DAILY [facility]; Protocol Last Admin: 11/02/18 09:14 Dose: 100 mls/hr Vancomycin HCl 500 mg/ Sodium (Chloride) 100 mls @ 100 mls/hr IVPB MWF [facility]; Protocol Last Admin: 10/31/18 12:44 Dose: Not Given Fluconazole 100 mg/ (Miscellaneous) 50 mls @ 100 mls/hr IVPB Q24H [facility]; Protocol Last Admin: 11/02/18 13:51 Dose: 100 mls/hr Dextrose (Dextrose 5% In Water 1000 Ml) 1,000 mls @ 0 mls/hr IV .Q0M PRN; Protocol PRN Reason: Hypoglycemia Protocol Valproate Sodium 500 mg/ (Sodium Chloride) 105 mls @ 50 mls/hr IVPB Q12 [facility] Last Admin: 11/02/18 21:57 Dose: 50 mls/hr Sodium Chloride (Sodium Chloride 0.9%) 1,000 mls @ 100 mls/hr IV .Q10H [facility] Insulin Aspart (Novolog) 0 unit SC Q6H [facility]; Protocol Last Admin: 11/03/18 06:00 Dose: 6 u Insulin Detemir (Levemir) 40 unit SC HS [facility] Last Admin: 11/02/18 21:54 Dose: 40 u Insulin Detemir (Levemir) 30 unit SC DAILY [facility] Last Admin: 11/02/18 14:39 Dose: Not Given Levetiracetam (Keppra) 1,000 mg PO BID [facility] Last Admin: 11/02/18 19:10 Dose: 1,000 mg Levothyroxine Sodium (Synthroid) 50 mcg PO 0600 [facility] Last Admin: 11/03/18 06:44 Dose: 50 mcg Metronidazole (Flagyl) 500 mg PO Q8 [facility]; Protocol Last Admin: 11/03/18 06:44 Dose: 500 mg Pantoprazole Sodium (Protonix Susp) 40 mg PO 0600 [facility] Last Admin: 11/02/18 06:50 Dose: 40 mg Rosuvastatin Calcium (Crestor) 10 mg PO HS [facility] Last Admin: 11/02/18 21:56 Dose: 10 mg Saccharomyces Boulardii (Florastor) 250 mg PO TID [facility] Last Admin: 11/02/18 19:10 Dose: 250 mg - Labs Labs: 11/02/18 06:26 11/02/18 06:24 PT 19.8 SECONDS (9.7-12.2) H 11/02/18 13:14 INR 1.8 11/02/18 13:14 APTT 53 SECONDS (21-34) H 11/02/18 13:14
--- NOTE | 2018-11-03 08:12 | PCM.VEEG ---
Video EEG - Procedure Start Date: 11/02/18 Start Time: 14:20 End Date: 11/03/18 End Time: 07:25 Technical Summary: DATA ACQUISITION: This was a multichannel inpatient video-EEG, a minimum of 22 channels were uti lized, performed in accordance with recommendations specified by the [place] [employer] (Glenda Reid et al. ACNS Guideline 1: Minimum Technical Requirements for Performing Clinical Electroencephalography. Journal of Clinical Neurophysiology 2016;33:303-7). The 10-20 electrode placement system was utilized in accordance with guidelines detailed by the International Federation of Clinical Neurophysiology (Michelle Chakraborty et al. The Ten-Twenty Electrode System of the International Federation. Recommendations for the Practice of Clinical Neurophysiology: Guidelines of the International Federation of Clinical Physiology 1999; EEG Suppl. 52.). DATA REVIEW / SPIKE DETECTION / DIGITAL ANALYSIS: The entire EEG was scanned and reviewed. Synchronized audio and video recording were reviewed at the time of each alarm and whenever an abnormality or suspicious activity was noted. The entire recording was analyzed utilizing an automated digital spike and seizure analysis program and all automatic spike and seizure detections were manually reviewed. A compressed spectral array was displayed and reviewed alongside the raw EEG tracings. In addition, further analysis of the EEG was performed when abnormalities were identified, including montage changes, dipole source localization, and frequency band identification. Video portion of the study is necessary to correlate abnormal EEG activity with clinical behavior. This study was attended 24 hours per day - Interpretation Description of the study: Indication; status epilepticus EEG Finding during wakefulness: During active states, the EEG was characterized by 14-25 Hz, 15-30 uV activity bilaterally in fronto-central regions. Resting wakefulness was characterized by a porly developed posterior dominant rhythm of 6 Hz, 30-50 uV, which was poorly reactive to eye opening and closing and it was poorly sustained, in addition upon arousal there was an activation of the triphasic sharps. Drowsiness was associated with slow roving eye movements, slowing and fragmentation of the posterior dominant rhythm, and bilateral 4-7 Hz, 40-70 uV theta activity, sometimes with a shifting predominance. Hyperventilation and photic stimulation were not performed. EEG Finding during sleep: Normal sleep architecture was not seen, when pte was clinically asleep, the EEG showed diffuse attenuated 4 hz activity. Interictal non-epileptiform abnormalities: There were frequent runs of bilateral right more than left frontal sharp waves with triphasic morphology that were more frequent seen during transition from wakefulness to sleep or vice versa, that were seen in isolation or in rhythmic runs, lasting for several minutes, these improved towards the end and were not seen on the last day of monitoring. Interictal epileptiform abnormalities: None Ictal epileptiform abnormalities: None - Impression Impression: This is an abnormal video-EEG monitoring study due to the presence of 1) Moderate to severe diffuse slowing, adn EEG disorganization. 2) Bifrontal sharp waves with triphasic morphology, seen in prolonged runs. Not in status epilepticus. INTERPRETATION: These findings are consistent with a moderate non specific, diffuse disturbance of cortical activity, in keeping with a diffuse browne matter dysfunction; these findings do not support a specific etiology, however these findings re usually seen in toxic-metabolic encephalopathies, these needs to be correlated clinically.
[2018-11-03 08:47] LABS: BASO # 0.1 K/uL (0.0-0.2); EOS # 0.8 K/uL (0.0-0.7); EOS % 8.4 % (0.0-4.0); HEMOGLOBIN 8.3 g/dL (11.0-16.0); LYMPH # 1.8 K/uL (1.0-4.3); LYMPH % 17.9 % (20.0-40.0); MEAN CELL VOLUME 89.6 fL (81.0-99.0); MEAN CORPUSCULAR HEMOGLOBIN 28.1 pg (27.0-31.0); MEAN CORPUSCULAR HGB CONC 31.3 g/dL (33.0-37.0); MEAN PLATELET VOLUME 11.7 fL (7.2-11.7); MONO # 0.6 K/uL (0.0-0.8); MONO % 6.4 % (0.0-10.0); NEUT # 6.8 K/uL (1.8-7.0); NEUT % 66.3 % (50.0-75.0); NRBC % 1.1 % (0.0-2.0); RBC 2.97 Mil/uL (3.80-5.20); RED CELL DISTRIBUTION WIDTH 18.8 % (11.5-14.5); WHITE BLOOD COUNT 10.2 K/uL (4.8-10.8)
[2018-11-03 08:51] LABS: INR 1.6; PROTHROMBIN TIME 17.8 SECONDS (9.7-12.2)
[2018-11-03 09:07] LABS: ALBUMIN 2.9 g/dL (3.5-5.0); CALCIUM 7.9 mg/dl (8.6-10.4)
[2018-11-03] MEDS: Saccharomyces Boulardi 250 mg Cap PO SCH ×3 (09:46→18:46)
[2018-11-03] MEDS: levETIRAcetam 100 mg/ml (5ml) Oral Syringe PO SCH ×2 (09:51→18:38)
[2018-11-03] MEDS: Meropenem 500 MG in Sodium Chloride 0.9% 100 ML IVPB SCH (09:52)
[2018-11-03] MEDS: Valproate 500 MG in Sodium Chloride 0.9% 100 ML IVPB SCH ×2 (09:53→21:39)
[2018-11-03] MEDS: Insulin Detemir 100 units/ml Vial (Levemir) SC SCH ×2 (09:55→21:40)
[2018-11-03] MEDS: Acetaminophen 650mg/20.3ml solution UD PO PRN ×2 (10:02→23:40)
--- NOTE | 2018-11-03 11:49 | CP.PCM.PN ---
Subjective - Date & Time of Evaluation Date of Evaluation: 11/03/18 Time of Evaluation: 11:47 - Subjective Subjective: on respirator HD today unresponsive on pressors cannot obtain ROS Objective - Vital Signs/Intake and Output Vital Signs (last 24 hours): Temp Pulse Resp BP Pulse Ox 101 F H 78 13 146/93 H 99 11/03/18 10:02 11/03/18 09:08 11/03/18 09:08 11/03/18 09:08 11/03/18 09:08 Intake and Output: 11/03/18 11/03/18 06:59 18:59 Intake Total 1465 440 Balance 1465 440 - Medications Medications: Current Medications Acetaminophen (Tylenol 650mg/20.3ml Solution Ud) 650 mg PO Q6 PRN PRN Reason: pain+fever Last Admin: 11/03/18 10:02 Dose: 650 mg Aspirin (Aspirin Chewable) 81 mg PO DAILY [facility] Last Admin: 11/03/18 09:46 Dose: 81 mg Dextrose (Dextrose 50% Inj) 0 ml IV STAT PRN; Protocol PRN Reason: Hypoglycemia Protocol Dextrose (Glutose 15) 0 gm PO ONCE PRN; Protocol PRN Reason: Hypoglycemia Protocol Epoetin Dedrick (Procrit) 10,000 unit IV TTS [facility] Last Admin: 11/01/18 16:10 Dose: 10,000 unit Glucagon (Glucagen Diagnostic Kit) 0 mg IM STAT PRN; Protocol PRN Reason: Hypoglycemia Protocol Heparin Sodium (Porcine) (Heparin) 5,000 units SC Q12 [facility] Last Admin: 11/03/18 09:50 Dose: 5,000 units Heparin Sodium (Porcine) (Heparin) 1,000 units IVP ONCE [facility] Last Admin: 11/01/18 15:30 Dose: 1,000 units Norepinephrine Bitartrate 4 mg (/ Sodium Chloride) 254 mls @ 15.24 mls/hr IV .[id number] PRN; Protocol PRN Reason: TITRATE PER MD ORDER Last Titration: 11/03/18 06:00 Dose: 8 mcg/min, 30.48 mls/hr Meropenem 500 mg/ Sodium (Chloride) 100 mls @ 100 mls/hr IVPB DAILY [facility]; Protocol Last Admin: 11/03/18 09:52 Dose: 100 mls/hr Vancomycin HCl 500 mg/ Sodium (Chloride) 100 mls @ 100 mls/hr IVPB [facility]; Protocol Last Admin: 10/31/18 12:44 Dose: Not Given Fluconazole 100 mg/ (Miscellaneous) 50 mls @ 100 mls/hr IVPB Q24H [facility]; Protocol Last Admin: 11/02/18 13:51 Dose: 100 mls/hr Dextrose (Dextrose 5% In Water 1000 Ml) 1,000 mls @ 0 mls/hr IV .Q0M PRN; Protocol PRN Reason: Hypoglycemia Protocol Valproate Sodium 500 mg/ (Sodium Chloride) 105 mls @ 50 mls/hr IVPB Q12 [facility] Last Admin: 11/03/18 09:53 Dose: 50 mls/hr Sodium Chloride (Sodium Chloride 0.9%) 1,000 mls @ 100 mls/hr IV .Q10H [facility] Last Admin: 11/03/18 07:30 Dose: 100 mls/hr Insulin Aspart (Novolog) 0 unit SC Q6H [facility]; Protocol Last Admin: 11/03/18 06:00 Dose: 6 u Insulin Detemir (Levemir) 40 unit SC [facility] Last Admin: 11/02/18 21:54 Dose: 40 u Insulin Detemir (Levemir) 30 unit SC DAILY [facility] Last Admin: 11/03/18 09:55 Dose: 30 u Levetiracetam (Keppra) 1,000 mg PO BID [facility] Last Admin: 11/03/18 09:51 Dose: 1,000 mg Levothyroxine Sodium (Synthroid) 50 mcg PO 0600 [facility] Last Admin: 11/03/18 06:44 Dose: 50 mcg Metronidazole (Flagyl) 500 mg PO Q8 [facility]; Protocol Last Admin: 11/03/18 06:44 Dose: 500 mg Pantoprazole Sodium (Protonix Susp) 40 mg PO 0600 [facility] Last Admin: 11/02/18 06:50 Dose: 40 mg Rosuvastatin Calcium (Crestor) 10 mg PO HS [facility] Last Admin: 11/02/18 21:56 Dose: 10 mg Saccharomyces Boulardii (Florastor) 250 mg PO TID [facility] Last Admin: 11/03/18 09:46 Dose: 250 mg - Labs Labs: 11/03/18 08:34 11/03/18 08:34 PT 17.8 SECONDS (9.7-12.2) H 11/03/18 08:34 INR 1.6 11/03/18 08:34 APTT 73 SECONDS (21-34) H D 11/03/18 08:34 - Constitutional Appears: Confused, Chronically Ill - Head Exam Head Exam: ATRAUMATIC, NORMAL INSPECTION - Neck Exam Neck Exam: Full ROM. absent: Lymphadenopathy - Respiratory Exam Respiratory Exam: Decreased Breath Sounds - Cardiovascular Exam Cardiovascular Exam: Tachycardia - GI/Abdominal Exam GI & Abdominal Exam: Soft. absent: Tenderness - Extremities Exam Extremities Exam: Pedal Edema Assessment and Plan - Assessment and Plan (Free Text) Assessment: HD today, monitor QB of catheter vdrf poor mental status labile bp
[2018-11-03] MEDS: Epoetin Alfa 10,000 unit/ml Dialysis IV SCH (13:33)
[2018-11-03] MEDS: Fluconazole IV 200mg/100 ml NS 100 MG in Premixed IV 1 EA IVPB SCH (13:36)
--- NOTE | 2018-11-03 14:59 | CP.CCUPN ---
CCU Subjective - Physician Review Events Since Last Encounter (Free Text): 11/03/18 14:56 persistent vegetative state, VEEG on. CCU Objective - Vital Signs / Intake & Output Vital Signs (Last 4 hours): Vital Signs Temp Pulse Pulse Resp BP BP BP 11/03/18 14:40 94/49 L 11/03/18 14:25 109/47 L 11/03/18 14:10 117/54 L 11/03/18 13:55 103/49 L 11/03/18 13:40 114/50 L 11/03/18 13:25 190/148 H 11/03/18 13:10 100.5 F H 72 19 151/41 H 11/03/18 13:05 100.5 F H 72 19 138/42 L 11/03/18 13:00 74 22 11/03/18 12:41 76 25 H 138/42 L 11/03/18 12:18 82 29 H 84/37 L 11/03/18 12:09 77 35 H 81/43 L 11/03/18 12:00 76 21 11/03/18 11:07 80 19 143/62 11/03/18 11:02 101 F H 11/03/18 11:00 101 F H 79 26 H 120/74 Pulse Ox 11/03/18 14:40 11/03/18 14:25 11/03/18 14:10 11/03/18 13:55 11/03/18 13:40 11/03/18 13:25 11/03/18 13:10 98 11/03/18 13:05 11/03/18 13:00 98 11/03/18 12:41 99 11/03/18 12:18 98 11/03/18 12:09 95 11/03/18 12:00 100 11/03/18 11:07 95 11/03/18 11:02 11/03/18 11:00 96 Intake and Output (Last 8hrs): Intake & Output 11/02/18 11/03/18 11/03/18 22:59 06:59 14:59 Intake Total 869.4 930 1115.2 Balance 869.4 930 1115.2 Weight 180 lb 0.16 oz Intake: IV 260 90 Intake, IV Amount 319.4 520 765.2 Left Internal Jugular 600 Left Upper arm 200 left trialysis IJ 119.4 520 165.2 Tube Feeding 190 320 350 Other 100 Other: # Bowel Movements 1 1 1 - Physical Exam Head: Positive for: Atraumatic, Normocephalic Extroacular Muscles: Positive for: EOMI (dropping eyelid left) Conjunctiva: Positive for: Normal Mouth: Positive for: Dry Neck: Positive for: Other (tracheostomy in place with vent, permacath right side chest area ) Respiratory/Chest: Positive for: Decreased Breath Sounds, Other (intubated ). Negative for: Respiratory Distress, Accessory Muscle Use, Tachypneic Cardiovascular: Positive for: Regular Rate and Rhythm, Normal S1, S2 Abdomen: Positive for: Normal Bowel Sounds, Other (PEG tube in place ). Negative for: Tenderness, Distention, Rebound, Guarding Upper Extremity: Positive for: Normal Inspection. Negative for: Cyanosis, Edema Lower Extremity: Positive for: Normal Inspection. Negative for: Edema Neurological: Negative for: GCS=15, CN II-XII Intact, Speech Normal Skin: Positive for: Warm, Dry, Normal Color, Other (permacath in place, midline right upper side ) Psychiatric: Positive for: Agitated. Negative for: Alert, Oriented x 3, Normal Insight, Normal Concentration - Medications Active Medications: Active Medications Generic Name Dose Route Start Last Admin Trade Name Freq PRN Reason Stop Dose Admin Acetaminophen 650 mg 10/25/18 03:30 11/03/18 10:02 Tylenol 650mg/20.3ml Solution Ud PO 650 mg Q6 PRN Administration pain+fever Aspirin 81 mg 10/08/18 10:00 11/03/18 09:46 Aspirin Chewable PO 81 mg DAILY JOCELYN Administration Dextrose 0 ml 11/01/18 12:14 Dextrose 50% Inj IV STAT PRN Hypoglycemia Protocol Protocol Dextrose 0 gm 11/01/18 12:14 Glutose 15 PO ONCE PRN Hypoglycemia Protocol Protocol Epoetin Dedrick 10,000 unit 11/01/18 14:00 11/03/18 13:33 Procrit IV 10,000 unit TTS JOCELYN Administration Glucagon 0 mg 11/01/18 12:14 Glucagen Diagnostic Kit IM STAT PRN Hypoglycemia Protocol Protocol Heparin Sodium (Porcine) 5,000 units 10/15/18 10:00 11/03/18 09:50 Heparin SC 5,000 units Q12 JOCELYN Administration Heparin Sodium (Porcine) 1,000 units 11/01/18 16:15 11/01/18 15:30 Heparin IVP 1,000 units ONCE JOCELYN Administration Norepinephrine Bitartrate 4 mg 254 mls @ 15.24 mls/hr 10/30/18 07:25 11/03/18 06:00 / Sodium Chloride IV 8 mcg/min .[id number] PRN 30.48 mls/hr TITRATE PER MD ORDER Titration Protocol 4 MCG/MIN Meropenem 500 mg/ Sodium 100 mls @ 100 mls/hr 10/30/18 15:30 11/03/18 09:52 Chloride IVPB 100 mls/hr DAILY JOCELYN Administration Protocol Vancomycin HCl 500 mg/ Sodium 100 mls @ 100 mls/hr 10/31/18 09:00 10/31/18 12:44 Chloride IVPB Not Given [facility] JOCELYN Protocol Fluconazole 100 mg/ 50 mls @ 100 mls/hr 11/01/18 13:00 11/03/18 13:36 Miscellaneous IVPB 100 mls/hr Q24H JOCELYN Administration Protocol Dextrose 1,000 mls @ 0 mls/hr 11/01/18 12:14 Dextrose 5% In Water 1000 Ml IV .Q0M PRN Hypoglycemia Protocol Protocol Per Protocol Valproate Sodium 500 mg/ 105 mls @ 50 mls/hr 11/01/18 22:00 11/03/18 09:53 Sodium Chloride IVPB 50 mls/hr Q12 JOCELYN Administration Sodium Chloride 1,000 mls @ 100 mls/hr 11/03/18 07:00 11/03/18 07:30 Sodium Chloride 0.9% IV 100 mls/hr .Q10H JOCELYN Administration Insulin Aspart 0 unit 10/31/18 12:00 11/03/18 12:06 Novolog SC 8 u Q6H JOCELYN Administration Protocol Insulin Detemir 40 unit 10/28/18 22:00 11/02/18 21:54 Levemir SC 40 u HS JOCELYN Administration Insulin Detemir 30 unit 11/02/18 10:00 11/03/18 09:55 Levemir SC 30 u DAILY J[facility]N Administration Levetiracetam 1,000 mg 10/28/18 18:00 11/03/18 09:51 Keppra PO 1,000 mg BID JOCELYN Administration Levothyroxine Sodium 50 mcg 09/29/18 08:00 11/03/18 06:44 Synthroid PO 50 mcg 0600 JOC[facility]N Administration Metronidazole 500 mg 10/30/18 14:15 11/03/18 06:44 Flagyl PO 500 mg Q8 JOC[facility]N Administration Protocol Pantoprazole Sodium 40 mg 10/09/18 06:00 11/02/18 06:50 Protonix Susp PO 40 mg 0600 JOC[facility]N Administration Rosuvastatin Calcium 10 mg 09/30/18 22:00 11/02/18 21:56 Crestor PO 10 mg HS JOCELYN Administration Saccharomyces Boulardii 250 mg 11/01/18 10:00 11/03/18 09:46 Florastor PO 250 mg TID JOCELYN Administration - Patient Studies Lab Studies: Microbiology Studies 10/30/18 08:29 Blood Culture - Preliminary Blood NO GROWTH AFTER 4 DAYS 10/30/18 08:29 Blood Culture - Preliminary Blood NO GROWTH AFTER 4 DAYS Lab Studies 11/03/18 11/03/18 11/03/18 Range/Units 11:22 08:34 08:34 WBC (4.8-10.8) K/uL RBC (3.80-5.20) Mil/uL Hgb (11.0-16.0) g/dL Hct (34.0-47.0) % MCV (81.0-99.0) fL MCH (27.0-31.0) pg MCHC (33.0-37.0) g/dL RDW (11.5-14.5) % Plt Count (130-400) K/uL MPV (7.2-11.7) fL Neut % (Auto) (50.0-75.0) % Lymph % (Auto) (20.0-40.0) % [place] % (Auto) (0.0-10.0) % Eos % (Auto) (0.0-4.0) % Baso % (Auto) (0.0-2.0) % Neut # (Auto) (1.8-7.0) K/uL Lymph # (Auto) (1.0-4.3) K/uL [place] # (Auto) (0.0-0.8) K/uL Eos # (Auto) (0.0-0.7) K/uL Baso # (Auto) (0.0-0.2) K/uL PT 17.8 H (9.7-12.2) SECONDS INR 1.6 APTT 73 H D (21-34) SECONDS Sodium (132-148) mmol/L Potassium (3.6-5.2) mmol/L Chloride (98-107) mmol/L Carbon Dioxide (22-30) mmol/L Anion Gap (10-20) BUN (7-17) mg/dL Creatinine (0.7-1.2) mg/dL Est GFR ( Amer) Est GFR (Non-Af Amer) POC Glucose (mg/dL) 343 H (65-110) mg/dL Random Glucose (65-105) mg/dL Calcium (8.6-10.4) mg/dl Ionized Calcium (4.80-5.60) mg/dL Phosphorus (2.5-4.5) mg/dL Magnesium (1.6-2.3) mg/dL Total Bilirubin (0.2-1.3) mg/dL AST (14-36) U/L ALT (9-52) U/L Alkaline Phosphatase (38-126) U/L Total Protein (6.3-8.3) g/dL Albumin (3.5-5.0) g/dL Globulin (2.2-3.9) gm/dL Albumin/Globulin Ratio (1.0-2.1) Vancomycin Trough 27.8 H (5.0-10.0) ug/mL Blood Type Antibody Screen 11/03/18 11/03/18 11/03/18 Range/Units 08:34 08:34 05:41 WBC 10.2 (4.8-10.8) K/uL RBC 2.97 L (3.80-5.20) Mil/uL Hgb 8.3 L (11.0-16.0) g/dL Hct 26.6 L (34.0-47.0) % MCV 89.6 (81.0-99.0) fL MCH 28.1 (27.0-31.0) pg MCHC 31.3 L (33.0-37.0) g/dL RDW 18.8 H (11.5-14.5) % Plt Count 106 L (130-400) K/uL MPV 11.7 (7.2-11.7) fL Neut % (Auto) 66.3 (50.0-75.0) % Lymph % (Auto) 17.9 L (20.0-40.0) % [place] % (Auto) 6.4 (0.0-10.0) % Eos % (Auto) 8.4 H (0.0-4.0) % Baso % (Auto) 1.0 (0.0-2.0) % Neut # (Auto) 6.8 (1.8-7.0) K/uL Lymph # (Auto) 1.8 (1.0-4.3) K/uL [place] # (Auto) 0.6 (0.0-0.8) K/uL Eos # (Auto) 0.8 H (0.0-0.7) K/uL Baso # (Auto) 0.1 (0.0-0.2) K/uL PT (9.7-12.2) SECONDS INR APTT (21-34) SECONDS Sodium 139 (132-148) mmol/L Potassium 3.3 L (3.6-5.2) mmol/L Chloride 108 H (98-107) mmol/L Carbon Dioxide 17 L (22-30) mmol/L Anion Gap 18 (10-20) BUN 40 H (7-17) mg/dL Creatinine 7.8 H* D (0.7-1.2) mg/dL Est GFR ( Amer) 6 Est GFR (Non-Af Amer) 5 POC Glucose (mg/dL) 284 H (65-110) mg/dL Random Glucose 309 H D (65-105) mg/dL Calcium 7.9 L (8.6-10.4) mg/dl Ionized Calcium (4.80-5.60) mg/dL Phosphorus 3.0 (2.5-4.5) mg/dL Magnesium 2.0 (1.6-2.3) mg/dL Total Bilirubin 0.3 (0.2-1.3) mg/dL AST 254 H D (14-36) U/L ALT 53 H D (9-52) U/L Alkaline Phosphatase 103 (38-126) U/L Total Protein 6.0 L (6.3-8.3) g/dL Albumin 2.9 L (3.5-5.0) g/dL Globulin 3.0 (2.2-3.9) gm/dL Albumin/Globulin Ratio 1.0 (1.0-2.1) Vancomycin Trough (5.0-10.0) ug/mL Blood Type Antibody Screen 11/02/18 11/02/18 11/02/18 Range/Units 23:58 18:11 18:03 WBC (4.8-10.8) K/uL RBC (3.80-5.20) Mil/uL Hgb (11.0-16.0) g/dL Hct (34.0-47.0) % MCV (81.0-99.0) fL MCH (27.0-31.0) pg MCHC (33.0-37.0) g/dL RDW (11.5-14.5) % Plt Count (130-400) K/uL MPV (7.2-11.7) fL Neut % (Auto) (50.0-75.0) % Lymph % (Auto) (20.0-40.0) % [place] % (Auto) (0.0-10.0) % Eos % (Auto) (0.0-4.0) % Baso % (Auto) (0.0-2.0) % Neut # (Auto) (1.8-7.0) K/uL Lymph # (Auto) (1.0-4.3) K/uL [place] # (Auto) (0.0-0.8) K/uL Eos # (Auto) (0.0-0.7) K/uL Baso # (Auto) (0.0-0.2) K/uL PT (9.7-12.2) SECONDS INR APTT (21-34) SECONDS Sodium (132-148) mmol/L Potassium (3.6-5.2) mmol/L Chloride (98-107) mmol/L Carbon Dioxide (22-30) mmol/L Anion Gap (10-20) BUN (7-17) mg/dL Creatinine (0.7-1.2) mg/dL Est GFR ( Amer) Est GFR (Non-Af Amer) POC Glucose (mg/dL) 300 H 263 H (65-110) mg/dL Random Glucose (65-105) mg/dL Calcium (8.6-10.4) mg/dl Ionized Calcium (4.80-5.60) mg/dL Phosphorus (2.5-4.5) mg/dL Magnesium (1.6-2.3) mg/dL Total Bilirubin (0.2-1.3) mg/dL AST (14-36) U/L ALT (9-52) U/L Alkaline Phosphatase (38-126) U/L Total Protein (6.3-8.3) g/dL Albumin (3.5-5.0) g/dL Globulin (2.2-3.9) gm/dL Albumin/Globulin Ratio (1.0-2.1) Vancomycin Trough (5.0-10.0) ug/mL Blood Type O POSITIVE Antibody Screen Negative 11/02/18 Range/Units 07:26 WBC (4.8-10.8) K/uL RBC (3.80-5.20) Mil/uL Hgb (11.0-16.0) g/dL Hct (34.0-47.0) % MCV (81.0-99.0) fL MCH (27.0-31.0) pg MCHC (33.0-37.0) g/dL RDW (11.5-14.5) % Plt Count (130-400) K/uL MPV (7.2-11.7) fL Neut % (Auto) (50.0-75.0) % Lymph % (Auto) (20.0-40.0) % [place] % (Auto) (0.0-10.0) % Eos % (Auto) (0.0-4.0) % Baso % (Auto) (0.0-2.0) % Neut # (Auto) (1.8-7.0) K/uL Lymph # (Auto) (1.0-4.3) K/uL [place] # (Auto) (0.0-0.8) K/uL Eos # (Auto) (0.0-0.7) K/uL Baso # (Auto) (0.0-0.2) K/uL PT (9.7-12.2) SECONDS INR APTT (21-34) SECONDS Sodium (132-148) mmol/L Potassium (3.6-5.2) mmol/L Chloride (98-107) mmol/L Carbon Dioxide (22-30) mmol/L Anion Gap (10-20) BUN (7-17) mg/dL Creatinine (0.7-1.2) mg/dL Est GFR ( Amer) Est GFR (Non-Af Amer) POC Glucose (mg/dL) (65-110) mg/dL Random Glucose (65-105) mg/dL Calcium (8.6-10.4) mg/dl Ionized Calcium 4.3 L (4.80-5.60) mg/dL Phosphorus (2.5-4.5) mg/dL Magnesium (1.6-2.3) mg/dL Total Bilirubin (0.2-1.3) mg/dL AST (14-36) U/L ALT (9-52) U/L Alkaline Phosphatase (38-126) U/L Total Protein (6.3-8.3) g/dL Albumin (3.5-5.0) g/dL Globulin (2.2-3.9) gm/dL Albumin/Globulin Ratio (1.0-2.1) Vancomycin Trough (5.0-10.0) ug/mL Blood Type Antibody Screen Laboratory Results - last 24 hr 11/02/18 11/02/18 11/02/18 07:26 18:03 18:11 WBC RBC Hgb Hct MCV MCH MCHC RDW Plt Count MPV Neut % (Auto) Lymph % (Auto) [place] % (Auto) Eos % (Auto) Baso % (Auto) Neut # (Auto) Lymph # (Auto) [place] # (Auto) Eos # (Auto) Baso # (Auto) PT INR APTT Sodium Potassium Chloride Carbon Dioxide Anion Gap BUN Creatinine Est GFR ( Amer) Est GFR (Non-Af Amer) POC Glucose (mg/dL) 263 H Random Glucose Calcium Ionized Calcium 4.3 L Phosphorus Magnesium Total Bilirubin AST ALT Alkaline Phosphatase Total Protein Albumin Globulin Albumin/Globulin Ratio Vancomycin Trough Blood Type O POSITIVE Antibody Screen Negative 11/02/18 11/03/18 11/03/18 23:58 05:41 08:34 WBC 10.2 RBC 2.97 L Hgb 8.3 L Hct 26.6 L MCV 89.6 MCH 28.1 MCHC 31.3 L RDW 18.8 H Plt Count 106 L MPV 11.7 Neut % (Auto) 66.3 Lymph % (Auto) 17.9 L [place] % (Auto) 6.4 Eos % (Auto) 8.4 H Baso % (Auto) 1.0 Neut # (Auto) 6.8 Lymph # (Auto) 1.8 [place] # (Auto) 0.6 Eos # (Auto) 0.8 H Baso # (Auto) 0.1 PT INR APTT Sodium Potassium Chloride Carbon Dioxide Anion Gap BUN Creatinine Est GFR ( Amer) Est GFR (Non-Af Amer) POC Glucose (mg/dL) 300 H 284 H Random Glucose Calcium Ionized Calcium Phosphorus Magnesium Total Bilirubin AST ALT Alkaline Phosphatase Total Protein Albumin Globulin Albumin/Globulin Ratio Vancomycin Trough Blood Type Antibody Screen 11/03/18 11/03/18 11/03/18 08:34 08:34 08:34 WBC RBC Hgb Hct MCV MCH MCHC RDW Plt Count MPV Neut % (Auto) Lymph % (Auto) [place] % (Auto) Eos % (Auto) Baso % (Auto) Neut # (Auto) Lymph # (Auto) [place] # (Auto) Eos # (Auto) Baso # (Auto) PT 17.8 H INR 1.6 APTT 73 H D Sodium 139 Potassium 3.3 L Chloride 108 H Carbon Dioxide 17 L Anion Gap 18 BUN 40 H Creatinine 7.8 H* D Est GFR ( Amer) 6 Est GFR (Non-Af Amer) 5 POC Glucose (mg/dL) Random Glucose 309 H D Calcium 7.9 L Ionized Calcium Phosphorus 3.0 Magnesium 2.0 Total Bilirubin 0.3 AST 254 H D ALT 53 H D Alkaline Phosphatase 103 Total Protein 6.0 L Albumin 2.9 L Globulin 3.0 Albumin/Globulin Ratio 1.0 Vancomycin Trough 27.8 H Blood Type Antibody Screen 11/03/18 11:22 WBC RBC Hgb Hct MCV MCH MCHC RDW Plt Count MPV Neut % (Auto) Lymph % (Auto) [place] % (Auto) Eos % (Auto) Baso % (Auto) Neut # (Auto) Lymph # (Auto) [place] # (Auto) Eos # (Auto) Baso # (Auto) PT INR APTT Sodium Potassium Chloride Carbon Dioxide Anion Gap BUN Creatinine Est GFR ( Amer) Est GFR (Non-Af Amer) POC Glucose (mg/dL) 343 H Random Glucose Calcium Ionized Calcium Phosphorus Magnesium Total Bilirubin AST ALT Alkaline Phosphatase Total Protein Albumin Globulin Albumin/Globulin Ratio Vancomycin Trough Blood Type Antibody Screen Fingerstick Blood Sugar Results: 343 Review of Systems - Review of Systems Systems not reviewed;Unavailable: Altered Mental Status Assessment/Plan (1) Persistent vegetative state Assessment and plan: 72yo F. PMHx CAD, CHF, DM, HTN, hypercholesterolemia, CAD with stents, ESRD. patient went for permacath placement that was c/b cardiac arrest while being induced. s/p therapeutic hypothermia. She has been in a vegetative state since. Neuro: persistent vegetative state, from suspected anoxic injury. VEEG to r/o status epilepticus, continue Keppra. treating for presumptive meningitis. spiking fevers, possibly central, possibly meningitic. Pulm: acute respiratory failure, trach'd on PRVC. CV: septic shock on levophed. Hem: leucocytosis. ASA for CAD. Renal: ESRD on HD, T//S. difficult to dialyze lately with hypotension and recurrent clotting of lines. Endo: DM type 2, on SISS for coverage. GI: NPO, Osmolyte, persistent diarrhea associated with tube feeds despite changing feeds. Sending off c.diff antigen. ID: sepsis from uncertain source, continue Meropenem, Fluconazole, Flagyl, Vancomycin. ID - Dr. Barrios DVT proph - heparin sq GI proph - protonix starkey for strict I/O's during acute illness Code status - full code Critical Care Time spent 35 minutes Multi-disciplinary rounds were performed with house staff, nursing, speech therapy, respiratory therapy, pharmacy and nutrition with integrated input from the primary team/attending and other consulting services. The documented time is cumulative and includes review of patient data/exams/labs/chart review and examination of the patient on rounds and throughout the day; time is exclusive of any procedures or teaching time. Current Visit: Yes Status: Acute
--- NOTE | 2018-11-03 16:11 | CP.PCM.PN ---
Subjective - Date & Time of Evaluation Date of Evaluation: 11/03/18 Time of Evaluation: 14:55 - Subjective Subjective: dictated Objective - Vital Signs/Intake and Output Vital Signs (last 24 hours): Temp Pulse Resp BP Pulse Ox 100.5 F H 90 27 H 110/76 100 11/03/18 13:10 11/03/18 15:41 11/03/18 15:41 11/03/18 15:55 11/03/18 15:14 Intake and Output: 11/03/18 11/03/18 06:59 18:59 Intake Total 1465 1452.8 Balance 1465 1452.8 - Medications Medications: Current Medications Acetaminophen (Tylenol 650mg/20.3ml Solution Ud) 650 mg PO Q6 PRN PRN Reason: pain+fever Last Admin: 11/03/18 10:02 Dose: 650 mg Aspirin (Aspirin Chewable) 81 mg PO DAILY [facility] Last Admin: 11/03/18 09:46 Dose: 81 mg Dextrose (Dextrose 50% Inj) 0 ml IV STAT PRN; Protocol PRN Reason: Hypoglycemia Protocol Dextrose (Glutose 15) 0 gm PO ONCE PRN; Protocol PRN Reason: Hypoglycemia Protocol Epoetin Dedrick (Procrit) 10,000 unit IV TTS [facility] Last Admin: 11/03/18 13:33 Dose: 10,000 unit Glucagon (Glucagen Diagnostic Kit) 0 mg IM STAT PRN; Protocol PRN Reason: Hypoglycemia Protocol Heparin Sodium (Porcine) (Heparin) 5,000 units SC Q12 [facility] Last Admin: 11/03/18 09:50 Dose: 5,000 units Heparin Sodium (Porcine) (Heparin) 1,000 units IVP ONCE [facility] Last Admin: 11/01/18 15:30 Dose: 1,000 units Norepinephrine Bitartrate 4 mg (/ Sodium Chloride) 254 mls @ 15.24 mls/hr IV .[id number] PRN; Protocol PRN Reason: TITRATE PER MD ORDER Last Titration: 11/03/18 06:00 Dose: 8 mcg/min, 30.48 mls/hr Meropenem 500 mg/ Sodium (Chloride) 100 mls @ 100 mls/hr IVPB DAILY [facility]; Protocol Last Admin: 11/03/18 09:52 Dose: 100 mls/hr Vancomycin HCl 500 mg/ Sodium (Chloride) 100 mls @ 100 mls/hr IVPB MWF [facility]; Pr otocol Last Admin: 10/31/18 12:44 Dose: Not Given Fluconazole 100 mg/ (Miscellaneous) 50 mls @ 100 mls/hr IVPB Q24H [facility]; Protocol Last Admin: 11/03/18 13:36 Dose: 100 mls/hr Dextrose (Dextrose 5% In Water 1000 Ml) 1,000 mls @ 0 mls/hr IV .Q0M PRN; Protocol PRN Reason: Hypoglycemia Protocol Valproate Sodium 500 mg/ (Sodium Chloride) 105 mls @ 50 mls/hr IVPB Q12 [facility] Last Admin: 11/03/18 09:53 Dose: 50 mls/hr Sodium Chloride (Sodium Chloride 0.9%) 1,000 mls @ 100 mls/hr IV .Q10H [facility] Last Admin: 11/03/18 07:30 Dose: 100 mls/hr Insulin Aspart (Novolog) 0 unit SC Q6H [facility]; Protocol Last Admin: 11/03/18 12:06 Dose: 8 u Insulin Detemir (Levemir) 40 unit SC HS [facility] Last Admin: 11/02/18 21:54 Dose: 40 u Insulin Detemir (Levemir) 30 unit SC DAILY [facility] Last Admin: 11/03/18 09:55 Dose: 30 u Levetiracetam (Keppra) 1,000 mg PO BID [facility] Last Admin: 11/03/18 09:51 Dose: 1,000 mg Levothyroxine Sodium (Synthroid) 50 mcg PO 0600 [facility] Last Admin: 11/03/18 06:44 Dose: 50 mcg Metronidazole (Flagyl) 500 mg PO Q8 [facility]; Protocol Last Admin: 11/03/18 06:44 Dose: 500 mg Pantoprazole Sodium (Protonix Susp) 40 mg PO 0600 [facility] Last Admin: 11/02/18 06:50 Dose: 40 mg Rosuvastatin Calcium (Crestor) 10 mg PO HS [facility] Last Admin: 11/02/18 21:56 Dose: 10 mg Saccharomyces Boulardii (Florastor) 250 mg PO TID [facility] Last Admin: 11/03/18 09:46 Dose: 250 mg - Labs Labs: 11/03/18 08:34 11/03/18 08:34 PT 17.8 SECONDS (9.7-12.2) H 11/03/18 08:34 INR 1.6 11/03/18 08:34 APTT 73 SECONDS (21-34) H D 11/03/18 08:34
--- NOTE | 2018-11-03 20:56 | PN ---
DATE: 11/03/2018 SUBJECTIVE: The patient has been having trouble with catheters. She had a Cathflo done yesterday on the straight catheter. Today, they are using it for dialysis. She has the left IJ. PHYSICAL EXAMINATION: GENERAL: She still has those hand movements. VITAL SIGNS: T-max is 100.5, pulse 72, blood pressure 138/42, respirations are 19, and she remains on mechanical ventilator. HEENT: Head is atraumatic. NECK: Supple. LUNGS: Clear. HEART: S1, S2, and is regular. ABDOMEN: Soft, nontender. PEG tube present. EXTREMITIES: Have foot protectors at this time. LABORATORY DATA: Labs show white count is 10.2, hemoglobin 8.3, hematocrit 26.6, platelet count is 106 and creatinine remains 7.8, she is a dialysis patient. Her septic workup has not revealed anything except sputum having yeast, and we have put her on Diflucan now. One of the wound cultures had coagulase-negative staph from the catheter but the catheters are removed and there was nothing that grew out of it. PLAN: So, at this time, we will continue with present antibiotics, she is on four antibiotics. Etiology of her fever remains unclear. She had diarrhea but C. diff is negative. We will follow. Sara Barrios MD
[2018-11-04] MEDS: (Novolog) Insulin Aspart, Recombinant 100 u/ml 10 ml vial SC SCH ×5 (00:34→23:34)
[2018-11-04] MEDS: Acetaminophen 650mg/20.3ml solution UD PO PRN ×2 (04:00→08:27)
[2018-11-04] MEDS: Pantoprazole 40 mg Susp UD PO SCH ×2 (05:46→06:08)
[2018-11-04] MEDS: Levothyroxine 50 MCG TAB PO SCH (05:47)
[2018-11-04 06:16] LABS: ALB/GLOB RATIO 0.9 (1.0-2.1); ALBUMIN 2.8 g/dL (3.5-5.0); CALCIUM 7.6 mg/dl (8.6-10.4)
[2018-11-04 06:18] LABS: BASO # 0.1 K/uL (0.0-0.2); EOS # 1.2 K/uL (0.0-0.7); EOS % 14.7 % (0.0-4.0); HEMOGLOBIN 8.2 g/dL (11.0-16.0); LYMPH # 1.2 K/uL (1.0-4.3); LYMPH % 14.6 % (20.0-40.0); MEAN CELL VOLUME 89.2 fL (81.0-99.0); MEAN CORPUSCULAR HGB CONC 31.4 g/dL (33.0-37.0); MEAN PLATELET VOLUME 11.1 fL (7.2-11.7); MONO # 0.8 K/uL (0.0-0.8); MONO % 9.9 % (0.0-10.0); NEUT # 4.8 K/uL (1.8-7.0); NEUT % 59.8 % (50.0-75.0); NRBC % 1.6 % (0.0-2.0); RBC 2.92 Mil/uL (3.80-5.20); RED CELL DISTRIBUTION WIDTH 18.5 % (11.5-14.5)
[2018-11-04] MEDS: Saccharomyces Boulardi 250 mg Cap PO SCH ×3 (09:40→18:16)
[2018-11-04] MEDS: levETIRAcetam 100 mg/ml (5ml) Oral Syringe PO SCH ×2 (09:40→18:16)
[2018-11-04] MEDS: Meropenem 500 MG in Sodium Chloride 0.9% 100 ML IVPB SCH (09:41)
[2018-11-04] MEDS: Valproate 500 MG in Sodium Chloride 0.9% 100 ML IVPB SCH ×2 (09:41→21:41)
[2018-11-04] MEDS: Insulin Detemir 100 units/ml Vial (Levemir) SC SCH ×2 (09:41→21:41)
--- NOTE | 2018-11-04 11:42 | CP.PCM.PN ---
Subjective - Date & Time of Evaluation Date of Evaluation: 11/01/18 Time of Evaluation: 11:41 - Subjective Subjective: Patient continues to have a fever. I spoke to the neurologist. There was a concern about midbrain infarct. Encephalomyelitis. I discussed with infectious disease. Added antifungal, and also antidiarrheal medication. We will continue to monitor. Spoke to the family Objective - Vital Signs/Intake and Output Vital Signs (last 24 hours): Temp Pulse Resp BP Pulse Ox 100.1 F H 75 20 107/40 L 83 L 11/04/18 09:27 11/04/18 11:00 11/04/18 11:00 11/04/18 11:00 11/04/18 11:00 Intake and Output: 11/04/18 11/04/18 06:59 18:59 Intake Total 1429.7 687.2 Balance 1429.7 687.2 - Medications Medications: Current Medications Acetaminophen (Tylenol 650mg/20.3ml Solution Ud) 650 mg PO Q6 PRN PRN Reason: pain+fever Last Admin: 11/04/18 08:27 Dose: 650 mg Aspirin (Aspirin Chewable) 81 mg PO DAILY [facility] Last Admin: 11/04/18 10:49 Dose: 81 mg Dextrose (Dextrose 50% Inj) 0 ml IV STAT PRN; Protocol PRN Reason: Hypoglycemia Protocol Dextrose (Glutose 15) 0 gm PO ONCE PRN; Protocol PRN Reason: Hypoglycemia Protocol Epoetin [place] (Procrit) 10,000 unit IV TTS [facility] Last Admin: 11/03/18 13:33 Dose: 10,000 unit Glucagon (Glucagen Diagnostic Kit) 0 mg IM STAT PRN; Protocol PRN Reason: Hypoglycemia Protocol Heparin Sodium (Porcine) (Heparin) 5,000 units SC Q12 [facility] Last Admin: 11/04/18 10:49 Dose: Not Given Heparin Sodium (Porcine) (Heparin) 1,000 units IVP ONCE [facility] Last Admin: 11/01/18 15:30 Dose: 1,000 units Norepinephrine Bitartrate 4 mg (/ Sodium Chloride) 254 mls @ 15.24 mls/hr IV .[id number] PRN; Protocol PRN Reason: TITRATE PER MD ORDER Last Titration: 11/04/18 10:00 Dose: 2 mcg/min, 7.62 mls/hr Meropenem 500 mg/ Sodium (Chloride) 100 mls @ 100 mls/hr IVPB DAILY [facility]; Protocol Last Admin: 11/04/18 09:41 Dose: 100 mls/hr Vancomycin HCl 500 mg/ Sodium (Chloride) 100 mls @ 100 mls/hr IVPB MWF [facility]; Protocol Last Admin: 10/31/18 12:44 Dose: Not Given Fluconazole 100 mg/ (Miscellaneous) 50 mls @ 100 mls/hr IVPB Q24H JOCELYN; Protocol Last Admin: 11/03/18 13:36 Dose: 100 mls/hr Dextrose (Dextrose 5% In Water 1000 Ml) 1,000 mls @ 0 mls/hr IV .Q0M PRN; Protocol PRN Reason: Hypoglycemia Protocol Valproate Sodium 500 mg/ (Sodium Chloride) 105 mls @ 50 mls/hr IVPB Q12 [facility] Last Admin: 11/04/18 09:41 Dose: 50 mls/hr Insulin Aspart (Novolog) 0 unit SC Q6H [facility]; Protocol Last Admin: 11/04/18 05:45 Dose: 2 u Insulin Detemir (Levemir) 40 unit SC HS [facility] Last Admin: 11/03/18 21:40 Dose: 40 u Insulin Detemir (Levemir) 30 unit SC DAILY [facility] Last Admin: 11/04/18 09:41 Dose: 30 u Levetiracetam (Keppra) 1,000 mg PO BID [facility] Last Admin: 11/04/18 09:40 Dose: 1,000 mg Levothyroxine Sodium (Synthroid) 50 mcg PO 0600 [facility] Last Admin: 11/04/18 05:47 Dose: 50 mcg Metronidazole (Flagyl) 500 mg PO Q8 [facility]; Protocol Last Admin: 11/04/18 05:46 Dose: 500 mg Pantoprazole Sodium (Protonix Susp) 40 mg PO 0600 [facility] Last Admin: 11/04/18 05:46 Dose: 40 mg Rosuvastatin Calcium (Crestor) 10 mg PO HS [facility] Last Admin: 11/03/18 21:38 Dose: 10 mg Saccharomyces Boulardii (Florastor) 250 mg PO TID [facility] Last Admin: 11/04/18 09:40 Dose: 250 mg - Labs Labs: 11/04/18 05:57 11/04/18 05:57 PT 17.8 SECONDS (9.7-12.2) H 11/03/18 08:34 INR 1.6 11/03/18 08:34 APTT 73 SECONDS (21-34) H D 11/03/18 08:34 Assessment and Plan (1) Acute on chronic renal failure Status: Acute (2) Diabetic nephropathy associated with type 2 diabetes mellitus Status: Acute (3) Uremia, acute Status: Acute
--- NOTE | 2018-11-04 11:43 | CP.PCM.PN ---
Subjective - Date & Time of Evaluation Date of Evaluation: 11/02/18 Time of Evaluation: 20:00 - Subjective Subjective: Patient again had a fever at night. Motrin was given 400 mg. Fever was subsided slowly. Cultures are so far negative. Empirically patient is receiving antifungal treatment antibacterial, as well as anti-meningeal treatment. Patient is being monitored for seizure disorder. Objective - Vital Signs/Intake and Output Vital Signs (last 24 hours): Temp Pulse Resp BP Pulse Ox 100.1 F H 75 20 107/40 L 83 L 11/04/18 09:27 11/04/18 11:00 11/04/18 11:00 11/04/18 11:00 11/04/18 11:00 Intake and Output: 11/04/18 11/04/18 06:59 18:59 Intake Total 1429.7 687.2 Balance 1429.7 687.2 - Medications Medications: Current Medications Acetaminophen (Tylenol 650mg/20.3ml Solution Ud) 650 mg PO Q6 PRN PRN Reason: pain+fever Last Admin: 11/04/18 08:27 Dose: 650 mg Aspirin (Aspirin Chewable) 81 mg PO DAILY [facility] Last Admin: 11/04/18 10:49 Dose: 81 mg Dextrose (Dextrose 50% Inj) 0 ml IV STAT PRN; Protocol PRN Reason: Hypoglycemia Protocol Dextrose (Glutose 15) 0 gm PO ONCE PRN; Protocol PRN Reason: Hypoglycemia Protocol Epoetin Dedrick (Procrit) 10,000 unit IV TTS [facility] Last Admin: 11/03/18 13:33 Dose: 10,000 unit Glucagon (Glucagen Diagnostic Kit) 0 mg IM STAT PRN; Protocol PRN Reason: Hypoglycemia Protocol Heparin Sodium (Porcine) (Heparin) 5,000 units SC Q12 [facility] Last Admin: 11/04/18 10:49 Dose: Not Given Heparin Sodium (Porcine) (Heparin) 1,000 units IVP ONCE [facility] Last Admin: 11/01/18 15:30 Dose: 1,000 units Norepinephrine Bitartrate 4 mg (/ Sodium Chloride) 254 mls @ 15.24 mls/hr IV .[id number] PRN; Protocol PRN Reason: TITRATE PER MD ORDER Last Titration: 11/04/18 10:00 Dose: 2 mcg/min, 7.62 mls/hr Meropenem 500 mg/ Sodium (Chloride) 100 mls @ 100 mls/hr IVPB DAILY [facility]; Protocol Last Admin: 11/04/18 09:41 Dose: 100 mls/hr Vancomycin HCl 500 mg/ Sodium (Chloride) 100 mls @ 100 mls/hr IVPB MWF [facility]; Protocol Last Admin: 10/31/18 12:44 Dose: Not Given Fluconazole 100 mg/ (Miscellaneous) 50 mls @ 100 mls/hr IVPB Q24H [facility]; Protocol Last Admin: 11/03/18 13:36 Dose: 100 mls/hr Dextrose (Dextrose 5% In Water 1000 Ml) 1,000 mls @ 0 mls/hr IV .Q0M PRN; Protocol PRN Reason: Hypoglycemia Protocol Valproate Sodium 500 mg/ (Sodium Chloride) 105 mls @ 50 mls/hr IVPB Q12 [facility] Last Admin: 11/04/18 09:41 Dose: 50 mls/hr Insulin Aspart (Novolog) 0 unit SC Q6H [facility]; Protocol Last Admin: 11/04/18 05:45 Dose: 2 u Insulin Detemir (Levemir) 40 unit SC [facility] Last Admin: 11/03/18 21:40 Dose: 40 u Insulin Detemir (Levemir) 30 unit SC DAILY [facility] Last Admin: 11/04/18 09:41 Dose: 30 u Levetiracetam (Keppra) 1,000 mg PO BID [facility] Last Admin: 11/04/18 09:40 Dose: 1,000 mg Levothyroxine Sodium (Synthroid) 50 mcg PO 0600 [facility] Last Admin: 11/04/18 05:47 Dose: 50 mcg Metronidazole (Flagyl) 500 mg PO Q8 [facility]; Protocol Last Admin: 11/04/18 05:46 Dose: 500 mg Pantoprazole Sodium (Protonix Susp) 40 mg PO 0600 [facility] Last Admin: 11/04/18 05:46 Dose: 40 mg Rosuvastatin Calcium (Crestor) 10 mg PO HS [facility] Last Admin: 11/03/18 21:38 Dose: 10 mg Saccharomyces Boulardii (Florastor) 250 mg PO TID [facility] Last Admin: 11/04/18 09:40 Dose: 250 mg - Labs Labs: 11/04/18 05:57 11/04/18 05:57 PT 17.8 SECONDS (9.7-12.2) H 11/03/18 08:34 INR 1.6 11/03/18 08:34 APTT 73 SECONDS (21-34) H D 11/03/18 08:34 Assessment and Plan (1) Acute on chronic renal failure Status: Acute (2) Diabetic nephropathy associated with type 2 diabetes mellitus Status: Acute (3) Uremia, acute Status: Acute
--- NOTE | 2018-11-04 11:44 | CP.PCM.PN ---
Subjective - Date & Time of Evaluation Date of Evaluation: 11/03/18 Time of Evaluation: 08:00 - Subjective Subjective: Patient is currently having again fever, controlled with medications. Labs are all nonspecific. There is no evidence of any focal infection. Receiving peg tube feeding, associate with the diarrhea. We will continue the current treatment. Closely being monitored Objective - Vital Signs/Intake and Output Vital Signs (last 24 hours): Temp Pulse Resp BP Pulse Ox 100.1 F H 75 20 107/40 L 83 L 11/04/18 09:27 11/04/18 11:00 11/04/18 11:00 11/04/18 11:00 11/04/18 11:00 Intake and Output: 11/04/18 11/04/18 06:59 18:59 Intake Total 1429.7 687.2 Balance 1429.7 687.2 - Medications Medications: Current Medications Acetaminophen (Tylenol 650mg/20.3ml Solution Ud) 650 mg PO Q6 PRN PRN Reason: pain+fever Last Admin: 11/04/18 08:27 Dose: 650 mg Aspirin (Aspirin Chewable) 81 mg PO DAILY [facility] Last Admin: 11/04/18 10:49 Dose: 81 mg Dextrose (Dextrose 50% Inj) 0 ml IV STAT PRN; Protocol PRN Reason: Hypoglycemia Protocol Dextrose (Glutose 15) 0 gm PO ONCE PRN; Protocol PRN Reason: Hypoglycemia Protocol Epoetin Dedrick (Procrit) 10,000 unit IV TTS [facility] Last Admin: 11/03/18 13:33 Dose: 10,000 unit Glucagon (Glucagen Diagnostic Kit) 0 mg IM STAT PRN; Protocol PRN Reason: Hypoglycemia Protocol Heparin Sodium (Porcine) (Heparin) 5,000 units SC Q12 [facility] Last Admin: 11/04/18 10:49 Dose: Not Given Heparin Sodium (Porcine) (Heparin) 1,000 units IVP ONCE [facility] Last Admin: 11/01/18 15:30 Dose: 1,000 units Norepinephrine Bitartrate 4 mg (/ Sodium Chloride) 254 mls @ 15.24 mls/hr IV .[id number] PRN; Protocol PRN Reason: TITRATE PER MD ORDER Last Titration: 11/04/18 10:00 Dose: 2 mcg/min, 7.62 mls/hr Meropenem 500 mg/ Sodium (Chloride) 100 mls @ 100 mls/hr IVPB DAILY [facility]; Protocol Last Admin: 11/04/18 09:41 Dose: 100 mls/hr Vancomycin HCl 500 mg/ Sodium (Chloride) 100 mls @ 100 mls/hr IVPB MWF [facility]; Protocol Last Admin: 10/31/18 12:44 Dose: Not Given Fluconazole 100 mg/ (Miscellaneous) 50 mls @ 100 mls/hr IVPB Q24H [facility]; Protocol Last Admin: 11/03/18 13:36 Dose: 100 mls/hr Dextrose (Dextrose 5% In Water 1000 Ml) 1,000 mls @ 0 mls/hr IV .Q0M PRN; Protocol PRN Reason: Hypoglycemia Protocol Valproate Sodium 500 mg/ (Sodium Chloride) 105 mls @ 50 mls/hr IVPB Q12 [facility] Last Admin: 11/04/18 09:41 Dose: 50 mls/hr Insulin Aspart (Novolog) 0 unit SC Q6H [facility]; Protocol Last Admin: 11/04/18 05:45 Dose: 2 u Insulin Detemir (Levemir) 40 unit SC [facility] Last Admin: 11/03/18 21:40 Dose: 40 u Insulin Detemir (Levemir) 30 unit SC DAILY [facility] Last Admin: 11/04/18 09:41 Dose: 30 u Levetiracetam (Keppra) 1,000 mg PO BID [facility] Last Admin: 11/04/18 09:40 Dose: 1,000 mg Levothyroxine Sodium (Synthroid) 50 mcg PO 0600 [facility] Last Admin: 11/04/18 05:47 Dose: 50 mcg Metronidazole (Flagyl) 500 mg PO Q8 [facility]; Protocol Last Admin: 11/04/18 05:46 Dose: 500 mg Pantoprazole Sodium (Protonix Susp) 40 mg PO 0600 [facility] Last Admin: 11/04/18 05:46 Dose: 40 mg Rosuvastatin Calcium (Crestor) 10 mg PO HS [facility] Last Admin: 11/03/18 21:38 Dose: 10 mg Saccharomyces Boulardii (Florastor) 250 mg PO TID [facility] Last Admin: 11/04/18 09:40 Dose: 250 mg - Labs Labs: 11/04/18 05:57 11/04/18 05:57 PT 17.8 SECONDS (9.7-12.2) H 11/03/18 08:34 INR 1.6 11/03/18 08:34 APTT 73 SECONDS (21-34) H D 11/03/18 08:34 Assessment and Plan (1) Acute on chronic renal failure Status: Acute (2) Diabetic nephropathy associated with type 2 diabetes mellitus Status: Acute (3) Uremia, acute Status: Acute
--- NOTE | 2018-11-04 11:46 | CP.PCM.PN ---
Subjective - Date & Time of Evaluation Date of Evaluation: 11/04/18 Time of Evaluation: 11:44 - Subjective Subjective: Patient is now on Levophed low-dose. Full control ventilation. Diarrhea persistently present. Excoriation of the skin in the pelvic region noted because of the diarrhea. Patient is moving the all 4 extremities. But not responding. On examination: Mild tachycardia. Patient is having fever persistently. The LP supposed to be done because of the high fever and elevated INR is on hold now. FFP was given yesterday morning But the patient is being treated for meningitis, sepsis, antifungal. We will continue to monitor. We will repeat the cultures again tomorrow if she has a fever. We will closely monitor Objective - Vital Signs/Intake and Output Vital Signs (last 24 hours): Temp Pulse Resp BP Pulse Ox 100.1 F H 75 20 107/40 L 83 L 11/04/18 09:27 11/04/18 11:00 11/04/18 11:00 11/04/18 11:00 11/04/18 11:00 Intake and Output: 11/04/18 11/04/18 06:59 18:59 Intake Total 1429.7 687.2 Balance 1429.7 687.2 - Medications Medications: Current Medications Acetaminophen (Tylenol 650mg/20.3ml Solution Ud) 650 mg PO Q6 PRN PRN Reason: pain+fever Last Admin: 11/04/18 08:27 Dose: 650 mg Aspirin (Aspirin Chewable) 81 mg PO DAILY [facility] Last Admin: 11/04/18 10:49 Dose: 81 mg Dextrose (Dextrose 50% Inj) 0 ml IV STAT PRN; Protocol PRN Reason: Hypoglycemia Protocol Dextrose (Glutose 15) 0 gm PO ONCE PRN; Protocol PRN Reason: Hypoglycemia Protocol Epoetin Dedrick (Procrit) 10,000 unit IV TTS [facility] Last Admin: 11/03/18 13:33 Dose: 10,000 unit Glucagon (Glucagen Diagnostic Kit) 0 mg IM STAT PRN; Protocol PRN Reason: Hypoglycemia Protocol Heparin Sodium (Porcine) (Heparin) 5,000 units SC Q12 [facility] Last Admin: 11/04/18 10:49 Dose: Not Given Heparin Sodium (Porcine) (Heparin) 1,000 units IVP ONCE [facility] Last Admin: 11/01/18 15:30 Dose: 1,000 units Norepinephrine Bitartrate 4 mg (/ Sodium Chloride) 254 mls @ 15.24 mls/hr IV .[id number] PRN; Protocol PRN Reason: TITRATE PER MD ORDER Last Titration: 11/04/18 10:00 Dose: 2 mcg/min, 7.62 mls/hr Meropenem 500 mg/ Sodium (Chloride) 100 mls @ 100 mls/hr IVPB DAILY [facility]; Protocol Last Admin: 11/04/18 09:41 Dose: 100 mls/hr Vancomycin HCl 500 mg/ Sodium (Chloride) 100 mls @ 100 mls/hr IVPB MWF [facility]; Protocol Last Admin: 10/31/18 12:44 Dose: Not Given Fluconazole 100 mg/ (Miscellaneous) 50 mls @ 100 mls/hr IVPB Q24H [facility]; Protocol Last Admin: 11/03/18 13:36 Dose: 100 mls/hr Dextrose (Dextrose 5% In Water 1000 Ml) 1,000 mls @ 0 mls/hr IV .Q0M PRN; Protocol PRN Reason: Hypoglycemia Protocol Valproate Sodium 500 mg/ (Sodium Chloride) 105 mls @ 50 mls/hr IVPB Q12 [facility] Last Admin: 11/04/18 09:41 Dose: 50 mls/hr Insulin Aspart (Novolog) 0 unit SC Q6H [facility]; Protocol Last Admin: 11/04/18 05:45 Dose: 2 u Insulin Detemir (Levemir) 40 unit SC [facility] Last Admin: 11/03/18 21:40 Dose: 40 u Insulin Detemir (Levemir) 30 unit SC DAILY [facility] Last Admin: 11/04/18 09:41 Dose: 30 u Levetiracetam (Keppra) 1,000 mg PO BID [facility] Last Admin: 11/04/18 09:40 Dose: 1,000 mg Levothyroxine Sodium (Synthroid) 50 mcg PO 0600 [facility] Last Admin: 11/04/18 05:47 Dose: 50 mcg Metronidazole (Flagyl) 500 mg PO Q8 [facility]; Protocol Last Admin: 11/04/18 05:46 Dose: 500 mg Pantoprazole Sodium (Protonix Susp) 40 mg PO 0600 [facility] Last Admin: 11/04/18 05:46 Dose: 40 mg Rosuvastatin Calcium (Crestor) 10 mg PO [facility] Last Admin: 11/03/18 21:38 Dose: 10 mg Saccharomyces Boulardii (Florastor) 250 mg PO TID [facility] Last Admin: 11/04/18 09:40 Dose: 250 mg - Labs Labs: 11/04/18 05:57 11/04/18 05:57 PT 17.8 SECONDS (9.7-12.2) H 11/03/18 08:34 INR 1.6 11/03/18 08:34 APTT 73 SECONDS (21-34) H D 11/03/18 08:34 Assessment and Plan (1) Acute on chronic renal failure Status: Acute (2) Diabetic nephropathy associated with type 2 diabetes mellitus Status: Acute (3) Uremia, acute Status: Acute
--- NOTE | 2018-11-04 12:02 | CP.PCM.PN ---
Subjective - Date & Time of Evaluation Date of Evaluation: 11/04/18 Time of Evaluation: 11:53 - Subjective Subjective: No new events, not communicating, getting video eeg, still getting temp spikes despite multiple abx, continues to have diarrhea. Objective - Vital Signs/Intake and Output Vital Signs (last 24 hours): Temp Pulse Resp BP Pulse Ox 100.1 F H 75 20 107/40 L 83 L 11/04/18 09:27 11/04/18 11:00 11/04/18 11:00 11/04/18 11:00 11/04/18 11:00 Intake and Output: 11/04/18 11/04/18 06:59 18:59 Intake Total 1429.7 687.2 Balance 1429.7 687.2 - Medications Medications: Current Medications Acetaminophen (Tylenol 650mg/20.3ml Solution Ud) 650 mg PO Q6 PRN PRN Reason: pain+fever Last Admin: 11/04/18 08:27 Dose: 650 mg Aspirin (Aspirin Chewable) 81 mg PO DAILY [facility] Last Admin: 11/04/18 10:49 Dose: 81 mg Dextrose (Dextrose 50% Inj) 0 ml IV STAT PRN; Protocol PRN Reason: Hypoglycemia Protocol Dextrose (Glutose 15) 0 gm PO ONCE PRN; Protocol PRN Reason: Hypoglycemia Protocol Epoetin Dedrick (Procrit) 10,000 unit IV TTS [facility] Last Admin: 11/03/18 13:33 Dose: 10,000 unit Glucagon (Glucagen Diagnostic Kit) 0 mg IM STAT PRN; Protocol PRN Reason: Hypoglycemia Protocol Heparin Sodium (Porcine) (Heparin) 5,000 units SC Q12 [facility] Last Admin: 11/04/18 10:49 Dose: Not Given Heparin Sodium (Porcine) (Heparin) 1,000 units IVP ONCE [facility] Last Admin: 11/01/18 15:30 Dose: 1,000 units Norepinephrine Bitartrate 4 mg (/ Sodium Chloride) 254 mls @ 15.24 mls/hr IV .[id number] PRN; Protocol PRN Reason: TITRATE PER MD ORDER Last Titration: 11/04/18 10:00 Dose: 2 mcg/min, 7.62 mls/hr Meropenem 500 mg/ Sodium (Chloride) 100 mls @ 100 mls/hr IVPB DAILY [facility]; Protocol Last Admin: 11/04/18 09:41 Dose: 100 mls/hr Vancomycin HCl 500 mg/ Sodium (Chloride) 100 mls @ 100 mls/hr IVPB MWF [facility]; Protocol Last Admin: 10/31/18 12:44 Dose: Not Given Fluconazole 100 mg/ (Miscellaneous) 50 mls @ 100 mls/hr IVPB Q24H [facility]; Protocol Last Admin: 11/03/18 13:36 Dose: 100 mls/hr Dextrose (Dextrose 5% In Water 1000 Ml) 1,000 mls @ 0 mls/hr IV .Q0M PRN; Protocol PRN Reason: Hypoglycemia Protocol Valproate Sodium 500 mg/ (Sodium Chloride) 105 mls @ 50 mls/hr IVPB Q12 [facility] Last Admin: 11/04/18 09:41 Dose: 50 mls/hr Insulin Aspart (Novolog) 0 unit SC Q6H [facility]; Protocol Last Admin: 11/04/18 05:45 Dose: 2 u Insulin Detemir (Levemir) 40 unit SC HS [facility] Last Admin: 11/03/18 21:40 Dose: 40 u Insulin Detemir (Levemir) 30 unit SC DAILY [facility] Last Admin: 11/04/18 09:41 Dose: 30 u Levetiracetam (Keppra) 1,000 mg PO BID [facility] Last Admin: 11/04/18 09:40 Dose: 1,000 mg Levothyroxine Sodium (Synthroid) 50 mcg PO 0600 [facility] Last Admin: 11/04/18 05:47 Dose: 50 mcg Metronidazole (Flagyl) 500 mg PO Q8 [facility]; Protocol Last Admin: 11/04/18 05:46 Dose: 500 mg Pantoprazole Sodium (Protonix Susp) 40 mg PO 0600 [facility] Last Admin: 11/04/18 05:46 Dose: 40 mg Rosuvastatin Calcium (Crestor) 10 mg PO HS [facility] Last Admin: 11/03/18 21:38 Dose: 10 mg Saccharomyces Boulardii (Florastor) 250 mg PO TID [facility] Last Admin: 11/04/18 09:40 Dose: 250 mg - Labs Labs: 11/04/18 05:57 11/04/18 05:57 PT 17.8 SECONDS (9.7-12.2) H 11/03/18 08:34 INR 1.6 11/03/18 08:34 APTT 73 SECONDS (21-34) H D 11/03/18 08:34 - Additional Findings Additional findings: * HEENT Pupils reactive but keeps eyes closed * Neck supple, has trache * Chest clear * CVS Regular no gallop * PA soft * Ext no edema * Skin periana excoriation, edema, stage 3 would in the sacrum with un stageble wound on the left buttock * [employer] random thrashing movements Assessment and Plan - Assessment and Plan (Free Text) Assessment: * Anoxic damage suspected * W/u for dd, with video eeg, planning lp, correcting inr * Low plt, related with heparin, but could s/e of poly pharmacy * Recurrent temp spike, neurologic, vs infections, vs drug related * DM * Continuous diarrhea, cdiff neg, not improved with change in feeds * ESRD on HD Plan: * Supportive care * Continue empiric anitseizure meds, abx but may have to deescalate with planning * monitor plt * Hold heparin for now, check inr, * Possible LP tomorrow * target euglycemia * HD as scheduled * Poor prognosis if anoxic damage
[2018-11-04] MEDS: Fluconazole IV 200mg/100 ml NS 100 MG in Premixed IV 1 EA IVPB SCH (12:12)
[2018-11-04] MEDS: Micafungin 100 MG in Sodium Chloride 0.9% 100 ML IV SCH (18:50)
--- NOTE | 2018-11-04 21:23 | CP.PCM.PN ---
Subjective - Date & Time of Evaluation Date of Evaluation: 11/04/18 Time of Evaluation: 17:40 - Subjective Subjective: Patient seen and evaluated No new cardiac events noted On Ventilator Physical Examination - Head Exam Head Exam: ATRAUMATIC, NORMAL INSPECTION - Eye Exam Eye Exam: EOMI, Normal appearance, PERRL. absent: Periorbital tenderness Pupil Exam: NORMAL ACCOMODATION - ENT Exam ENT Exam: Mucous Membranes Moist, Normal Oropharynx - Respiratory Exam Respiratory Exam: Clear to Ausculation Bilateral. absent: Prolonged Expiratory Phase, Respiratory Distress - Cardiovascular Exam Cardiovascular Exam: REGULAR RHYTHM, +S1, +S2. absent: Rubs - GI/Abdominal Exam GI & Abdominal Exam: Soft, Normal Bowel Sounds. absent: Hyperactive Bowel Sounds - Extremities Exam Extremities Exam: absent: Pedal Edema - Back Exam Back Exam: NORMAL INSPECTION. absent: CVA tenderness (R), paraspinal tenderness - Neurological Exam Neurological Exam: Altered - Psychiatric Exam Psychiatric exam: Agitated, Normal Affect, Normal Mood - Skin Skin Exam: Dry Assessment and Plan - Assessment and Plan (Free Text) Assessment: 72 year old female with past medical history of CAD, CHF, HTN, HLD, pituitary adenoma, is being seen s/p respiratory arrest during AV fistula placement surgery. s/p permacath on 10-11-18; possible AMS due to anoxic brain injury, now on HD MWF, tracheostomy done on 10/18/17, planning for PEG placement by GI today. Plan: Respiratory failure - Currently intubated and sedated. Management per primary care team - Completed hypothermic protocol -Bedside PEG placement completed today. Medications: Levetiracetam 420mls/hrIVPB Q12H [facility] MRSA in trach -Continue Cefepime 1gm ivpb daily -Continue Vancomycin 1gm ivpb mwf Anoxic brain injury -Pending repeat MRI at [place]. Patient remains agigtated and unable to go for imaging at this time. HTN -Lopressor 12.5mg NG BID [facility] HLD -Continue Rosuvastatin 10mg PO HS [facility] CAD -Continue Aspirin 81mg PO Daily [facility] DM -Levemir 30UNIT sc q12 [facility] Hypothyroidism -Continue Synthroid 50mcg PO 0600 [facility] CKD on HD - S/p right permacath placed on 10/11 -Procrit 10,000 unit IV MWF ppx -Protonix -Heparin Objective - Vital Signs/Intake and Output Vital Signs (last 24 hours): Temp Pulse Resp BP Pulse Ox 100.3 F H 92 H 22 113/68 100 11/04/18 20:00 11/04/18 20:58 11/04/18 20:58 11/04/18 20:59 11/04/18 20:58 Intake and Output: 11/04/18 11/05/18 18:59 06:59 Intake Total 1405.0 280 Output Total 30 Balance 1405.0 250 - Medications Medications: Current Medications Acetaminophen (Tylenol 650mg/20.3ml Solution Ud) 650 mg PO Q6 PRN PRN Reason: pain+fever Last Admin: 11/04/18 08:27 Dose: 650 mg Aspirin (Aspirin Chewable) 81 mg PO DAILY [facility] Last Admin: 11/04/18 10:49 Dose: 81 mg Dextrose (Dextrose 50% Inj) 0 ml IV STAT PRN; Protocol PRN Reason: Hypoglycemia Protocol Dextrose (Glutose 15) 0 gm PO ONCE PRN; Protocol PRN Reason: Hypoglycemia Protocol Epoetin Dedrick (Procrit) 10,000 unit IV TTS [facility] Last Admin: 11/03/18 13:33 Dose: 10,000 unit Glucagon (Glucagen Diagnostic Kit) 0 mg IM STAT PRN; Protocol PRN Reason: Hypoglycemia Protocol Heparin Sodium (Porcine) (Heparin) 5,000 units SC Q12 [facility] Last Admin: 11/04/18 10:49 Dose: Not Given Heparin Sodium (Porcine) (Heparin) 1,000 units IVP ONCE [facility] Last Admin: 11/01/18 15:30 Dose: 1,000 units Norepinephrine Bitartrate 4 mg (/ Sodium Chloride) 254 mls @ 15.24 mls/hr IV .[id number] PRN; Protocol PRN Reason: TITRATE PER MD ORDER Last Titration: 11/04/18 14:03 Dose: 0 mcg/min, 0 mls/hr Meropenem 500 mg/ Sodium (Chloride) 100 mls @ 100 mls/hr IVPB DAILY [facility]; Protocol Last Admin: 11/04/18 09:41 Dose: 100 mls/hr Vancomycin HCl 500 mg/ Sodium (Chloride) 100 mls @ 100 mls/hr IVPB MWF [facility]; Protocol Last Admin: 10/31/18 12:44 Dose: Not Given Valproate Sodium 500 mg/ (Sodium Chloride) 105 mls @ 50 mls/hr IVPB Q12 [facility] Last Admin: 11/04/18 09:41 Dose: 50 mls/hr Micafungin Sodium 100 mg/ (Sodium Chloride) 100 mls @ 100 mls/hr IV Q24H [facility]; P rotocol Last Admin: 11/04/18 18:50 Dose: 100 mls/hr Insulin Aspart (Novolog) 0 unit SC Q6H [facility]; Protocol Last Admin: 11/04/18 18:16 Dose: 8 u Insulin Detemir (Levemir) 40 unit SC HS [facility] Last Admin: 11/03/18 21:40 Dose: 40 u Insulin Detemir (Levemir) 30 unit SC DAILY [facility] Last Admin: 11/04/18 09:41 Dose: 30 u Levetiracetam (Keppra) 1,000 mg PO BID [facility] Last Admin: 11/04/18 18:16 Dose: 1,000 mg Levothyroxine Sodium (Synthroid) 50 mcg PO 0600 [facility] Last Admin: 11/04/18 05:47 Dose: 50 mcg Metronidazole (Flagyl) 500 mg PO Q8 [facility]; Protocol Last Admin: 11/04/18 14:09 Dose: 500 mg Pantoprazole Sodium (Protonix Susp) 40 mg PO 0600 [facility] Last Admin: 11/04/18 05:46 Dose: 40 mg Rosuvastatin Calcium (Crestor) 10 mg PO HS [facility] Last Admin: 11/03/18 21:38 Dose: 10 mg Saccharomyces Boulardii (Florastor) 250 mg PO TID [facility] Last Admin: 11/04/18 18:16 Dose: 250 mg - Labs Labs: 11/04/18 05:57 11/04/18 05:57 PT 17.8 SECONDS (9.7-12.2) H 11/03/18 08:34 INR 1.6 11/03/18 08:34 APTT 73 SECONDS (21-34) H D 11/03/18 08:34
[2018-11-04 23:35] LABS: INR 1.3; PROTHROMBIN TIME 14.4 SECONDS (9.7-12.2)
[2018-11-05 06:04] LABS: BASO # 0.1 K/uL (0.0-0.2); BASO % 1.1 % (0.0-2.0); EOS # 1.2 K/uL (0.0-0.7); EOS % 10.8 % (0.0-4.0); HEMOGLOBIN 8.9 g/dL (11.0-16.0); LYMPH # 1.3 K/uL (1.0-4.3); LYMPH % 11.1 % (20.0-40.0); MEAN CORPUSCULAR HEMOGLOBIN 27.6 pg (27.0-31.0); MEAN CORPUSCULAR HGB CONC 30.7 g/dL (33.0-37.0); MEAN PLATELET VOLUME 11.1 fL (7.2-11.7); MONO # 0.8 K/uL (0.0-0.8); MONO % 7.3 % (0.0-10.0); NEUT % 69.7 % (50.0-75.0); RBC 3.21 Mil/uL (3.80-5.20); RED CELL DISTRIBUTION WIDTH 18.9 % (11.5-14.5); WHITE BLOOD COUNT 11.4 K/uL (4.8-10.8)
[2018-11-05] MEDS: Pantoprazole 40 mg Susp UD PO SCH ×2 (06:06→06:08)
[2018-11-05] MEDS: Levothyroxine 50 MCG TAB PO SCH (06:07)
[2018-11-05 06:10] LABS: INR 1.3; PROTHROMBIN TIME 14.3 SECONDS (9.7-12.2)
[2018-11-05] MEDS: (Novolog) Insulin Aspart, Recombinant 100 u/ml 10 ml vial SC SCH ×4 (06:47→23:55)
[2018-11-05] MEDS: Valproate 500 MG in Sodium Chloride 0.9% 100 ML IVPB SCH ×2 (09:07→22:02)
[2018-11-05] MEDS: levETIRAcetam 100 mg/ml (5ml) Oral Syringe PO SCH ×2 (09:08→17:49)
[2018-11-05] MEDS: Insulin Detemir 100 units/ml Vial (Levemir) SC SCH ×2 (09:08→22:04)
[2018-11-05] MEDS: Meropenem 500 MG in Sodium Chloride 0.9% 100 ML IVPB SCH (09:09)
[2018-11-05] MEDS: Acetaminophen 650mg/20.3ml solution UD PO PRN (09:09)
[2018-11-05] MEDS: Saccharomyces Boulardi 250 mg Cap PO SCH ×3 (09:18→17:50)
--- NOTE | 2018-11-05 09:34 | RAD ---
Date of service: 11/05/2018 HISTORY: pna COMPARISON: 11/01/2018 FINDINGS: LUNGS: No active pulmonary disease. PLEURA: No significant pleural effusion identified, no pneumothorax apparent. CARDIOVASCULAR: Normal heart size. Tracheostomy tube unchanged. Left IJ multi lumen central venous catheter unchanged. Normal cardiac size. No pulmonary vascular congestion. OSSEOUS STRUCTURES: No significant abnormalities. VISUALIZED UPPER ABDOMEN: Normal. OTHER FINDINGS: None. IMPRESSION: No active disease.
[2018-11-05] MEDS ORDERED: Propofol 10 mg/ml Inj (20 ML) ONE (10:20)
--- NOTE | 2018-11-05 10:21 | CP.PCM.PN ---
Subjective - Date & Time of Evaluation Date of Evaluation: 11/05/18 Time of Evaluation: 10:19 - Subjective Subjective: events noted -last dialysis 2/2- removed 1200ml has had fevers, recent blood cultures negative still on multiple IV ABs has been unresponsive for LP this AM labs reviewed Objective - Vital Signs/Intake and Output Vital Signs (last 24 hours): Temp Pulse Resp BP Pulse Ox 99.5 F 97 H 18 110/68 100 11/05/18 04:00 11/05/18 06:00 11/05/18 06:00 11/05/18 05:59 11/05/18 06:00 Intake and Output: 11/05/18 11/05/18 06:59 18:59 Intake Total 1020 Output Total 100 Balance 920 - Medications Medications: Current Medications Acetaminophen (Tylenol 650mg/20.3ml Solution Ud) 650 mg PO Q6 PRN PRN Reason: pain+fever Last Admin: 11/05/18 09:09 Dose: 650 mg Aspirin (Aspirin Chewable) 81 mg PO DAILY [facility] Last Admin: 11/05/18 09:07 Dose: 81 mg Dextrose (Dextrose 50% Inj) 0 ml IV STAT PRN; Protocol PRN Reason: Hypoglycemia Protocol Dextrose (Glutose 15) 0 gm PO ONCE PRN; Protocol PRN Reason: Hypoglycemia Protocol Epoetin Dedrick (Procrit) 10,000 unit IV TTS [facility] Last Admin: 11/03/18 13:33 Dose: 10,000 unit Glucagon (Glucagen Diagnostic Kit) 0 mg IM STAT PRN; Protocol PRN Reason: Hypoglycemia Protocol Heparin Sodium (Porcine) (Heparin) 1,000 units IVP ONCE [facility] Last Admin: 11/01/18 15:30 Dose: 1,000 units Norepinephrine Bitartrate 4 mg (/ Sodium Chloride) 254 mls @ 15.24 mls/hr IV .[id number] PRN; Protocol PRN Reason: TITRATE PER MD ORDER Last Titration: 11/04/18 14:03 Dose: 0 mcg/min, 0 mls/hr Meropenem 500 mg/ Sodium (Chloride) 100 mls @ 100 mls/hr IVPB DAILY [facility]; Protocol Last Admin: 11/05/18 09:09 Dose: 100 mls/hr Vancomycin HCl 500 mg/ Sodium (Chloride) 100 mls @ 100 mls/hr IVPB MWF [facility]; Protocol Last Admin: 10/31/18 12:44 Dose: Not Given Valproate Sodium 500 mg/ (Sodium Chloride) 105 mls @ 50 mls/hr IVPB Q12 [facility] Last Admin: 11/05/18 09:07 Dose: 50 mls/hr Micafungin Sodium 100 mg/ (Sodium Chloride) 100 mls @ 100 mls/hr IV Q24H [facility]; Protocol Last Admin: 11/04/18 18:50 Dose: 100 mls/hr Insulin Aspart (Novolog) 0 unit SC Q6H [facility]; Protocol Last Admin: 11/05/18 06:47 Dose: 4 u Insulin Detemir (Levemir) 40 unit SC HS [facility] Last Admin: 11/04/18 21:41 Dose: 40 u Insulin Detemir (Levemir) 30 unit SC DAILY [facility] Last Admin: 11/05/18 09:08 Dose: 30 u Levetiracetam (Keppra) 1,000 mg PO BID [facility] Last Admin: 11/05/18 09:08 Dose: 1,000 mg Levothyroxine Sodium (Synthroid) 50 mcg PO 0600 [facility] Last Admin: 11/05/18 06:07 Dose: 50 mcg Metronidazole (Flagyl) 500 mg PO Q8 [facility]; Protocol Last Admin: 11/05/18 06:06 Dose: 500 mg Pantoprazole Sodium (Protonix Susp) 40 mg PO 0600 [facility] Last Admin: 11/05/18 06:08 Dose: 40 mg Rosuvastatin Calcium (Crestor) 10 mg PO HS [facility] Last Admin: 11/04/18 21:41 Dose: 10 mg Saccharomyces Boulardii (Florastor) 250 mg PO TID [facility] Last Admin: 11/05/18 09:18 Dose: 250 mg - Labs Labs: 11/05/18 05:52 11/05/18 05:52 PT 14.3 SECONDS (9.7-12.2) H 11/05/18 05:52 INR 1.3 11/05/18 05:52 APTT 43 SECONDS (21-34) H 11/05/18 05:52 - Constitutional Appears: No Acute Distress, Chronically Ill - Head Exam Head Exam: ATRAUMATIC, NORMAL INSPECTION - Eye Exam Eye Exam: EOMI, Normal appearance - Neck Exam Neck Exam: Normal Inspection. absent: Tenderness - Cardiovascular Exam Cardiovascular Exam: REGULAR RHYTHM, +S1 - GI/Abdominal Exam GI & Abdominal Exam: Soft. absent: Tenderness - Extremities Exam Extremities Exam: Pedal Edema. absent: Tenderness - Neurological Exam Neurological Exam: Altered - Skin Skin Exam: Dry, Warm Assessment and Plan (1) ESRD (end stage renal disease) Status: Acute (2) Diabetic nephropathy associated with type 2 diabetes mellitus Status: Acute (3) CAD (coronary artery disease) Status: Acute (4) HTN (hypertension) Status: Acute - Assessment and Plan (Free Text) Plan: For dialysis TTS Monitor BP- now off pressors UF as tolerated with dialysis LP now IV ABs as per ICU team
[2018-11-05] MEDS ORDERED: Rocuronium 10 mg/ml (5 ml) ONE (10:24)
--- NOTE | 2018-11-05 10:44 | PN ---
DATE: 11/05/2018 NEUROLOGY FOLLOWUP EVALUATION NEUROLOGICAL PROBLEM: Bilateral cerebral dysfunction, possible nonconvulsive status from possible autoimmune encephalitis versus infectious source. PHYSICAL EXAMINATION: VITAL SIGNS: Blood pressure 135/63, mean arterial pressure of 89, respiratory rate 20 on tracheostomy, temperature 98.5. GENERAL: The patient is seen and examined at the bedside. Obtunded. Responsive appropriately to the painful stimuli. Moves all four extremities. The current recording video monitoring being reviewed, which showed continuous persistent loose electrode artifact seen, which is a suboptimal study. Necessary action is requested through the nurse. The patient also scheduled to have a spinal tap to rule out any infectious resource and also CSF fluid to be sent for NMDA receptor antibodies as well. The patient will be followed closely with you. Blu Yost MD
--- NOTE | 2018-11-05 10:56 | PCM.PROC ---
Procedures Attestation:: I certify that I have explained the specified Operation(s) or Procedure(s), risks, benefits and reasonable alternatives to the Patient and/or other person responsible. The opportunity was given to ask questions and all questions answered - Lumbar Puncture Consent Obtained: Written Consent (from Patient's daughter) Time Out Performed: Yes Patient Position: Left Lateral Decubitius Skin Prep: Povidone-Iodine 1% (x3) Local Anesthetic Used: Lidocaine 1% Amount of Anesthesia Used (mls): 3 Spinal Needle Gauge: 22G Interspace Used: L4-L5 Fluid Initially Obtained: Clear Complications: None Additional comments: Consent obtained from patient's daughter. r/b/a explained and all questions answered. Labs, medications and vitals reviewed. Patient placed on left lateral decubitus position. Lower back prep with betadine x3. L4/5 interspace 3mL of 1% Lidocaine with skin wheal. 22G quincke advanced with +CSF, 4 vials of CSF collected. Sterility maintained throughout. Patient tolerated procedure well. Attempt x1.
[2018-11-05 10:58] LABS: FLUID TYPE SPINAL FLUID
[2018-11-05 11:42] LABS: CSF APPEARANCE CLEAR/COLORLESS (CLEAR)
--- NOTE | 2018-11-05 12:32 | CP.CCUPN ---
CCU Subjective - Physician Review Subjective (Free Text): PGY-[address] ICU progress note for Dr Renato Orlando service Patient seen and examined at bedside. Patient does not respond to command, restless. 72 hour video EEG in progress. no acute events overnight. ROS unattainable due to patient's mental status at time of encounter. Critical Care Time Spent (in minutes): 40 CCU Objective - Vital Signs / Intake & Output Vital Signs (Last 4 hours): Vital Signs Temp Pulse Resp BP Pulse Ox 11/05/18 12:09 111 H 22 115/60 100 11/05/18 12:04 93 H 25 H 131/63 100 11/05/18 12:00 106 H 17 100 11/05/18 11:59 93 H 15 134/59 L 100 11/05/18 11:54 93 H 21 132/60 100 11/05/18 11:49 91 H 15 137/59 L 100 11/05/18 11:44 92 H 38 H 114/59 L 100 11/05/18 11:39 94 H 26 H 130/64 100 11/05/18 11:34 93 H 22 116/63 100 11/05/18 11:29 118/55 L 11/05/18 11:25 94 H 29 H 118/61 100 11/05/18 11:19 93 H 19 102/60 100 11/05/18 11:14 95 H 14 106/59 L 100 11/05/18 11:09 96 H 21 117/56 L 100 11/05/18 11:04 91 H 31 H 113/56 L 100 11/05/18 11:00 92 H 22 100 11/05/18 10:59 93 H 20 106/62 100 11/05/18 10:54 93 H 20 110/56 L 100 11/05/18 10:49 92 H 22 102/52 L 100 11/05/18 10:45 93 H 16 96/45 L 100 11/05/18 10:39 90 16 107/48 L 100 11/05/18 10:34 89 19 109/50 L 100 11/05/18 10:29 89 26 H 114/48 L 100 11/05/18 10:24 90 18 93/54 L 100 11/05/18 10:17 93 H 23 98/45 L 100 11/05/18 10:00 93 H 18 100 11/05/18 09:00 100.2 F H 96 H 23 100 11/05/18 08:58 97 H 22 108/54 L 100 Intake and Output (Last 8hrs): Intake & Output 11/04/18 11/05/18 11/05/18 22:59 06:59 14:59 Intake Total 860 480 560 Output Total 30 70 Balance 830 410 560 Weight 198 lb 6 oz Intake: Intake, IV Amount 200 200 Left Internal Jugular 200 200 Right Hand 0 left trialysis IJ 0 Oral 80 Tube Feeding 480 480 360 Other 100 Output: Urine 0 Urine, Voided 0 Stool 30 70 Other: # Voids Urine, Voided 0 - Physical Exam Head: Positive for: Atraumatic, Normocephalic Conjunctiva: Positive for: Normal Mouth: Positive for: Dry Neck: Positive for: Other (tracheostomy in place with vent, trialysis cath on left side neck area ) Respiratory/Chest: Positive for: Decreased Breath Sounds, Other (intubated ). Negative for: Respiratory Distress, Accessory Muscle Use, Tachypneic Cardiovascular: Positive for: Regular Rate and Rhythm, Normal S1, S2 Abdomen: Positive for: Normal Bowel Sounds, Other (PEG tube in place ). Negative for: Tenderness, Distention, Rebound, Guarding Upper Extremity: Positive for: Normal Inspection. Negative for: Cyanosis, Edema Lower Extremity: Positive for: Normal Inspection. Negative for: Edema Neurological: Negative for: GCS=15, CN II-XII Intact, Speech Normal Skin: Positive for: Warm, Dry, Normal Color Psychiatric: Negative for: Alert, Oriented x 3, Normal Insight, Normal Concentration Other physical findings (Free Text): restless - Medications Active Medications: Active Medications Generic Name Dose Route Start Last Admin Trade Name Freq PRN Reason Stop Dose Admin Acetaminophen 650 mg 10/25/18 03:30 11/05/18 09:09 Tylenol 650mg/20.3ml Solution Ud PO 650 mg Q6 PRN Administration pain+fever Aspirin 81 mg 10/08/18 10:00 11/05/18 09:07 Aspirin Chewable PO 81 mg DAILY JOCELYN Administration Dextrose 0 ml 11/01/18 12:14 Dextrose 50% Inj IV STAT PRN Hypoglycemia Protocol Protocol Dextrose 0 gm 11/01/18 12:14 Glutose 15 PO ONCE PRN Hypoglycemia Protocol Protocol Epoetin Dedrick 10,000 unit 11/01/18 14:00 02/02/19 13:33 Procrit IV 10,000 unit TTS JOCELYN Administration Glucagon 0 mg 11/01/18 12:14 Glucagen Diagnostic Kit IM STAT PRN Hypoglycemia Protocol Protocol Heparin Sodium (Porcine) 1,000 units 11/01/18 16:15 11/01/18 15:30 Heparin IVP 1,000 units ONCE JOCELYN Administration Norepinephrine Bitartrate 4 mg 254 mls @ 15.24 mls/hr 10/30/18 07:25 11/04/18 14:03 / Sodium Chloride IV 0 mcg/min .[id number] PRN 0 mls/hr TITRATE PER MD ORDER Titration Protocol 4 MCG/MIN Meropenem 500 mg/ Sodium 100 mls @ 100 mls/hr 10/30/18 15:30 11/05/18 09:09 Chloride IVPB 100 mls/hr DAILY JOCELYN Administration Protocol Vancomycin HCl 500 mg/ Sodium 100 mls @ 100 mls/hr 10/31/18 09:00 10/31/18 12:44 Chloride IVPB Not Given [facility] JOCELYN Protocol Valproate Sodium 500 mg/ 105 mls @ 50 mls/hr 11/01/18 22:00 11/05/18 09:07 Sodium Chloride IVPB 50 mls/hr Q12 JOCELYN Administration Micafungin Sodium 100 mg/ 100 mls @ 100 mls/hr 11/04/18 19:00 11/04/18 18:50 Sodium Chloride IV 100 mls/hr Q24H JOCELYN Administration Protocol Insulin Aspart 0 unit 10/31/18 12:00 11/05/18 12:10 Novolog SC 6 u Q6H JOCELYN Administration Protocol Insulin Detemir 40 unit 10/28/18 22:00 11/04/18 21:41 Levemir SC 40 u HS JOCELYN Administration Insulin Detemir 30 unit 11/02/18 10:00 11/05/18 09:08 Levemir SC 30 u DAILY JOCELYN Administration Levetiracetam 1,000 mg 10/28/18 18:00 11/05/18 09:08 Keppra PO 1,000 mg BID JOCELYN Administration Levothyroxine Sodium 50 mcg 09/29/18 08:00 11/05/18 06:07 Synthroid PO 50 mcg 0600 JOCELYN Administration Metronidazole 500 mg 10/30/18 14:15 11/05/18 06:06 Flagyl PO 500 mg Q8 JOCELYN Administration Protocol Pantoprazole Sodium 40 mg 10/09/18 06:00 11/05/18 06:08 Protonix Susp PO 40 mg 0600 JOCELYN Administration Rosuvastatin Calcium 10 mg 09/30/18 22:00 11/04/18 21:41 Crestor PO 10 mg HS JOCELYN Administration Saccharomyces Boulardii 250 mg 11/01/18 10:00 11/05/18 09:18 Florastor PO 250 mg TID JOCELYN Administration - Patient Studies Lab Studies: Microbiology Studies 11/05/18 10:54 Gram Stain - Final Cerebral Spinal Fluid 11/03/18 06:21 Gram Stain - Final Tracheostomy Site Wound Culture - Preliminary Yeast Species 10/30/18 08:29 Blood Culture - Final Blood NO GROWTH AFTER 5 DAYS Gram Stain - Final TEST NOT PERFORMED 10/30/18 08:29 Blood Culture - Final Blood NO GROWTH AFTER 5 DAYS Gram Stain - Final TEST NOT PERFORMED Lab Studies 11/05/18 11/05/18 11/05/18 Range/Units 11:48 10:54 10:54 WBC (4.8-10.8) K/uL RBC (3.80-5.20) Mil/uL Hgb (11.0-16.0) g/dL Hct (34.0-47.0) % MCV (81.0-99.0) fL MCH (27.0-31.0) pg MCHC (33.0-37.0) g/dL RDW (11.5-14.5) % Plt Count (130-400) K/uL MPV (7.2-11.7) fL Neut % (Auto) (50.0-75.0) % Lymph % (Auto) (20.0-40.0) % [place] % (Auto) (0.0-10.0) % Eos % (Auto) (0.0-4.0) % Baso % (Auto) (0.0-2.0) % Neut # (Auto) (1.8-7.0) K/uL Lymph # (Auto) (1.0-4.3) K/uL [place] # (Auto) (0.0-0.8) K/uL Eos # (Auto) (0.0-0.7) K/uL Baso # (Auto) (0.0-0.2) K/uL Differential Comment PT (9.7-12.2) SECONDS INR APTT (21-34) SECONDS Sodium (132-148) mmol/L Potassium (3.6-5.2) mmol/L Chloride (98-107) mmol/L Carbon Dioxide (22-30) mmol/L Anion Gap (10-20) BUN (7-17) mg/dL Creatinine (0.7-1.2) mg/dL Est GFR ( Amer) Est GFR (Non-Af Amer) POC Glucose (mg/dL) 296 H (65-110) mg/dL Random Glucose (65-105) mg/dL Calcium (8.6-10.4) mg/dl Phosphorus (2.5-4.5) mg/dL Magnesium (1.6-2.3) mg/dL Total Bilirubin (0.2-1.3) mg/dL AST (14-36) U/L ALT (9-52) U/L Alkaline Phosphatase (38-126) U/L Total Protein (6.3-8.3) g/dL Albumin (3.5-5.0) g/dL Globulin (2.2-3.9) gm/dL Albumin/Globulin Ratio (1.0-2.1) Fluid Type Spinal fluid CSF Volume TEST NOT PERFORMED CSF Appearance Clear/colorless (CLEAR) CSF WBC 1.0 (0.0-5.0) /mm3 CSF RBC 0.0 (0.0-0.0) /mm3 CSF Total Cell Counted TEST NOT PERFORMED CSF Lymphocytes (0-0) % CSF Monos/Macrophages TEST NOT PERFORMED CSF Comment CSF Glucose 129 H* (40-70) mg/dL 11/05/18 11/05/18 11/05/18 Range/Units 05:52 05:52 05:52 WBC 11.4 H (4.8-10.8) K/uL RBC 3.21 L (3.80-5.20) Mil/uL Hgb 8.9 L (11.0-16.0) g/dL Hct 28.9 L (34.0-47.0) % MCV 90.0 (81.0-99.0) fL MCH 27.6 (27.0-31.0) pg MCHC 30.7 L (33.0-37.0) g/dL RDW 18.9 H (11.5-14.5) % Plt Count 96 L (130-400) K/uL MPV 11.1 (7.2-11.7) fL Neut % (Auto) 69.7 (50.0-75.0) % Lymph % (Auto) 11.1 L (20.0-40.0) % [place] % (Auto) 7.3 (0.0-10.0) % Eos % (Auto) 10.8 H (0.0-4.0) % Baso % (Auto) 1.1 (0.0-2.0) % Neut # (Auto) 8.0 H (1.8-7.0) K/uL Lymph # (Auto) 1.3 (1.0-4.3) K/uL [place] # (Auto) 0.8 (0.0-0.8) K/uL Eos # (Auto) 1.2 H (0.0-0.7) K/uL Baso # (Auto) 0.1 (0.0-0.2) K/uL Differential Comment PT 14.3 H (9.7-12.2) SECONDS INR 1.3 APTT 43 H (21-34) SECONDS Sodium 140 (132-148) mmol/L Potassium 3.6 (3.6-5.2) mmol/L Chloride 107 (98-107) mmol/L Carbon Dioxide 21 L (22-30) mmol/L Anion Gap 16 (10-20) BUN 41 H (7-17) mg/dL Creatinine 5.7 H (0.7-1.2) mg/dL Est GFR ( Amer) 9 Est GFR (Non-Af Amer) 7 POC Glucose (mg/dL) (65-110) mg/dL Random Glucose 210 H D (65-105) mg/dL Calcium 8.0 L (8.6-10.4) mg/dl Phosphorus 2.9 (2.5-4.5) mg/dL Magnesium 1.9 (1.6-2.3) mg/dL Total Bilirubin 0.4 (0.2-1.3) mg/dL AST 153 H D (14-36) U/L ALT 54 H (9-52) U/L Alkaline Phosphatase 123 (38-126) U/L Total Protein 6.1 L (6.3-8.3) g/dL Albumin 3.0 L (3.5-5.0) g/dL Globulin 3.1 (2.2-3.9) gm/dL Albumin/Globulin Ratio 1.0 (1.0-2.1) Fluid Type CSF Volume CSF Appearance (CLEAR) CSF WBC (0.0-5.0) /mm3 CSF RBC (0.0-0.0) /mm3 CSF Total Cell Counted CSF Lymphocytes (0-0) % CSF Monos/Macrophages CSF Comment CSF Glucose (40-70) mg/dL 11/04/18 11/04/18 11/04/18 Range/Units 23:28 23:25 17:33 WBC (4.8-10.8) K/uL RBC (3.80-5.20) Mil/uL Hgb (11.0-16.0) g/dL Hct (34.0-47.0) % MCV (81.0-99.0) fL MCH (27.0-31.0) pg MCHC (33.0-37.0) g/dL RDW (11.5-14.5) % Plt Count (130-400) K/uL MPV (7.2-11.7) fL Neut % (Auto) (50.0-75.0) % Lymph % (Auto) (20.0-40.0) % [place] % (Auto) (0.0-10.0) % Eos % (Auto) (0.0-4.0) % Baso % (Auto) (0.0-2.0) % Neut # (Auto) (1.8-7.0) K/uL Lymph # (Auto) (1.0-4.3) K/uL [place] # (Auto) (0.0-0.8) K/uL Eos # (Auto) (0.0-0.7) K/uL Baso # (Auto) (0.0-0.2) K/uL Differential Comment PT 14.4 H (9.7-12.2) SECONDS INR 1.3 APTT 44 H D (21-34) SECONDS Sodium (132-148) mmol/L Potassium (3.6-5.2) mmol/L Chloride (98-107) mmol/L Carbon Dioxide (22-30) mmol/L Anion Gap (10-20) BUN (7-17) mg/dL Creatinine (0.7-1.2) mg/dL Est GFR ( Amer) Est GFR (Non-Af Amer) POC Glucose (mg/dL) 311 H 328 H (65-110) mg/dL Random Glucose (65-105) mg/dL Calcium (8.6-10.4) mg/dl Phosphorus (2.5-4.5) mg/dL Magnesium (1.6-2.3) mg/dL Total Bilirubin (0.2-1.3) mg/dL AST (14-36) U/L ALT (9-52) U/L Alkaline Phosphatase (38-126) U/L Total Protein (6.3-8.3) g/dL Albumin (3.5-5.0) g/dL Globulin (2.2-3.9) gm/dL Albumin/Globulin Ratio (1.0-2.1) Fluid Type CSF Volume CSF Appearance (CLEAR) CSF WBC (0.0-5.0) /mm3 CSF RBC (0.0-0.0) /mm3 CSF Total Cell Counted CSF Lymphocytes (0-0) % CSF Monos/Macrophages CSF Comment CSF Glucose (40-70) mg/dL 11/04/18 Range/Units 11:41 WBC (4.8-10.8) K/uL RBC (3.80-5.20) Mil/uL Hgb (11.0-16.0) g/dL Hct (34.0-47.0) % MCV (81.0-99.0) fL MCH (27.0-31.0) pg MCHC (33.0-37.0) g/dL RDW (11.5-14.5) % Plt Count (130-400) K/uL MPV (7.2-11.7) fL Neut % (Auto) (50.0-75.0) % Lymph % (Auto) (20.0-40.0) % [place] % (Auto) (0.0-10.0) % Eos % (Auto) (0.0-4.0) % Baso % (Auto) (0.0-2.0) % Neut # (Auto) (1.8-7.0) K/uL Lymph # (Auto) (1.0-4.3) K/uL [place] # (Auto) (0.0-0.8) K/uL Eos # (Auto) (0.0-0.7) K/uL Baso # (Auto) (0.0-0.2) K/uL Differential Comment PT (9.7-12.2) SECONDS INR APTT (21-34) SECONDS Sodium (132-148) mmol/L Potassium (3.6-5.2) mmol/L Chloride (98-107) mmol/L Carbon Dioxide (22-30) mmol/L Anion Gap (10-20) BUN (7-17) mg/dL Creatinine (0.7-1.2) mg/dL Est GFR ( Amer) Est GFR (Non-Af Amer) POC Glucose (mg/dL) > 500 H* (65-110) mg/dL Random Glucose (65-105) mg/dL Calcium (8.6-10.4) mg/dl Phosphorus (2.5-4.5) mg/dL Magnesium (1.6-2.3) mg/dL Total Bilirubin (0.2-1.3) mg/dL AST (14-36) U/L ALT (9-52) U/L Alkaline Phosphatase (38-126) U/L Total Protein (6.3-8.3) g/dL Albumin (3.5-5.0) g/dL Globulin (2.2-3.9) gm/dL Albumin/Globulin Ratio (1.0-2.1) Fluid Type CSF Volume CSF Appearance (CLEAR) CSF WBC (0.0-5.0) /mm3 CSF RBC (0.0-0.0) /mm3 CSF Total Cell Counted CSF Lymphocytes (0-0) % CSF Monos/Macrophages CSF Comment CSF Glucose (40-70) mg/dL Laboratory Results - last 24 hr 11/04/18 11/04/18 11/04/18 11:41 17:33 23:25 WBC RBC Hgb Hct MCV MCH MCHC RDW Plt Count MPV Neut % (Auto) Lymph % (Auto) [place] % (Auto) Eos % (Auto) Baso % (Auto) Neut # (Auto) Lymph # (Auto) [place] # (Auto) Eos # (Auto) Baso # (Auto) Differential Comment PT 14.4 H INR 1.3 APTT 44 H D Sodium Potassium Chloride Carbon Dioxide Anion Gap BUN Creatinine Est GFR ( Amer) Est GFR (Non-Af Amer) POC Glucose (mg/dL) > 500 H* 328 H Random Glucose Calcium Phosphorus Magnesium Total Bilirubin AST ALT Alkaline Phosphatase Total Protein Albumin Globulin Albumin/Globulin Ratio Fluid Type CSF Volume CSF Appearance CSF WBC CSF RBC CSF Total Cell Counted CSF Lymphocytes CSF Monos/Macrophages CSF Comment CSF Glucose 11/04/18 11/05/18 11/05/18 23:28 05:52 05:52 WBC 11.4 H RBC 3.21 L Hgb 8.9 L Hct 28.9 L MCV 90.0 MCH 27.6 MCHC 30.7 L RDW 18.9 H Plt Count 96 L MPV 11.1 Neut % (Auto) 69.7 Lymph % (Auto) 11.1 L [place] % (Auto) 7.3 Eos % (Auto) 10.8 H Baso % (Auto) 1.1 Neut # (Auto) 8.0 H Lymph # (Auto) 1.3 [place] # (Auto) 0.8 Eos # (Auto) 1.2 H Baso # (Auto) 0.1 Differential Comment PT 14.3 H INR 1.3 APTT 43 H Sodium Potassium Chloride Carbon Dioxide Anion Gap BUN Creatinine Est GFR ( Amer) Est GFR (Non-Af Amer) POC Glucose (mg/dL) 311 H Random Glucose Calcium Phosphorus Magnesium Total Bilirubin AST ALT Alkaline Phosphatase Total Protein Albumin Globulin Albumin/Globulin Ratio Fluid Type CSF Volume CSF Appearance CSF WBC CSF RBC CSF Total Cell Counted CSF Lymphocytes CSF Monos/Macrophages CSF Comment CSF Glucose 11/05/18 11/05/18 11/05/18 05:52 10:54 10:54 WBC RBC Hgb Hct MCV MCH MCHC RDW Plt Count MPV Neut % (Auto) Lymph % (Auto) [place] % (Auto) Eos % (Auto) Baso % (Auto) Neut # (Auto) Lymph # (Auto) [place] # (Auto) Eos # (Auto) Baso # (Auto) Differential Comment PT INR APTT Sodium 140 Potassium 3.6 Chloride 107 Carbon Dioxide 21 L Anion Gap 16 BUN 41 H Creatinine 5.7 H Est GFR ( Amer) 9 Est GFR (Non-Af Amer) 7 POC Glucose (mg/dL) Random Glucose 210 H D Calcium 8.0 L Phosphorus 2.9 Magnesium 1.9 Total Bilirubin 0.4 AST 153 H D ALT 54 H Alkaline Phosphatase 123 Total Protein 6.1 L Albumin 3.0 L Globulin 3.1 Albumin/Globulin Ratio 1.0 Fluid Type Spinal fluid CSF Volume TEST NOT PERFORMED CSF Appearance Clear/colorless CSF WBC 1.0 CSF RBC 0.0 CSF Total Cell Counted TEST NOT PERFORMED CSF Lymphocytes CSF Monos/Macrophages TEST NOT PERFORMED CSF Comment CSF Glucose 129 H* 11/05/18 11:48 WBC RBC Hgb Hct MCV MCH MCHC RDW Plt Count MPV Neut % (Auto) Lymph % (Auto) [place] % (Auto) Eos % (Auto) Baso % (Auto) Neut # (Auto) Lymph # (Auto) [place] # (Auto) Eos # (Auto) Baso # (Auto) Differential Comment PT INR APTT Sodium Potassium Chloride Carbon Dioxide Anion Gap BUN Creatinine Est GFR ( Amer) Est GFR (Non-Af Amer) POC Glucose (mg/dL) 296 H Random Glucose Calcium Phosphorus Magnesium Total Bilirubin AST ALT Alkaline Phosphatase Total Protein Albumin Globulin Albumin/Globulin Ratio Fluid Type CSF Volume CSF Appearance CSF WBC CSF RBC CSF Total Cell Counted CSF Lymphocytes CSF Monos/Macrophages CSF Comment CSF Glucose Radiology Impressions: Radiology Impressions Chest X-Ray 11/05/18 07:00 IMPRESSION: No active disease. Fingerstick Blood Sugar Results: 296 Critical Care Progress Note - Ventilator Checklist Head of Bed 30 Degrees: Yes Daily Sedation Vacation: Yes Daily Assessment of Readiness to Wean: Yes PUD Prophalyxis: Yes DVT Prophylaxis: Yes Oral Care with Chlorhexidine Gluconate {CHG}: Yes - Vent Settings MODE:: PRVC TIDAL VOLUME:: 450 RESP RATE:: 18 FIO2:: 50 PEEP:: 5 - Extremities/Vascular Does the Patient have a Central Venous Catheter?: Yes Insertion Site: Internal Jugular Vein ([facility] trialysis cath) Does the Patient need a Central Venous Catheter?: Yes Does the Patient have a Rodriguez Catheter?: Yes Does the Patient need a Rodriguez Catheter?: Yes - Restraints Justification for Restraints: High risk for self extubation, High risk for removing IV access - Prophylaxis GI Prophylaxis GI: PPI Assessment/Plan - Assessment and Plan (Free Text) Plan: Patient is a 72 year old female with PMHx of CKD, CHF, CAD s/p stents, pituitary adenoma a/p resection, DM, who was admitted for respiratory and cardiac arrest s/p permacath placement and AVF on 10/05; possible AMS due to anoxic brain injury, now on HD MWF, tracheostomy on 10/18/17, PEG tube placement 10/23/18. Patient became hypotensive overnight and upgraded to ICU. Permacath removed by surgery on 10/30. A trialysis catheter inserted but dialysis reported the line was not function. A IJ central line inserted for dialysis access. Pending LP to rule out meningitis due to high INR, received FFPx 1 on 11/02. Patient to get LP today. Po ssible Perirectal abscess as seen on CT AP 10/30, repeat CT AP today. Neuro - Intubated - cont Keppra and valproate as per neuro - Lumbar Puncture to r/o meningitis - will be done today 11/05 - will follow up cytology results - 72 hour video EEG in progress - f/u Neuro recs Cardiac - Hypotensive 11/03 to possible sepsis vs hypovolemia shock vs septic shock - Echo 11/01: Left Ventricle systolic function is normal; EF is 55-60%; hypertensive heart disease; diastolic dysfunction; no AR, MR, pulmonary hypertension; trace to mild tricuspid regurgitation. - bp 115/60 now - Levophed drip at 4mcg/min - continue to monitor vitals - continue Crestor 10mg, ASA 81mg Pulm - Intubated, current vent settings PRVC 18/450/5/50 - Pressure support trials - CXR 10/30: No active pulmonary disease GI - PEG tube in place - cont Tube feeds as per dietary change solution to Osmolite 1.2 with goal of 60ml/hr - protonix ppx - CT abdomen/pelvis 10/30: fluid and gas filled distended rectum versus perirectal abscess. Evidence of anastomotic bowel suture material and/or rectal tube/packing material. - Repeat CT A/P - f/u rectal abscess - f/u surgery recs Renal - HD schedule: TTHS - Left IJ catheter inserted 11/01 for dialysis - continue Procrit Endo - Hx of Hypothyroidism, continue levothyroxine 50mg - Hx of DM, continue Levemir 40 units HS and Levemir 30 units daily - ISS increased to high - Cortef 5mg - AM Cortisol level 18.9 - random glucose today 103 Heme - H/H 10.2/32.3 - INR 1.8 - monitor CBC - INR 1.7 - give 1 unit of FFP - follow up am coags ID - Febrile, Tmax 100.4 - WBC 11.4 - Permacath removed by surgery 10/30 - continue Abx: Meropenem, Flagyl, micafungin - Vanco on hold vanc through 27.8 - 10/30 blood cx: negative after 5 days - Tracheostomy site, sputum - yeast species - c.diff negative PPx - Protonix for GI ppx - DVT ppx: SCDs, Heparin SC held for low platelets - Tylenol PRN for fever Plan discussed with Dr Darion Patton, PGY-1 - Date & Time Date: 11/05/18 Time: 09:00
--- NOTE | 2018-11-05 14:22 | CP.PCM.PN ---
Subjective - Date & Time of Evaluation Date of Evaluation: 11/05/18 Time of Evaluation: 14:20 - Subjective Subjective: dictated Objective - Vital Signs/Intake and Output Vital Signs (last 24 hours): Temp Pulse Resp BP Pulse Ox 98.9 F 83 19 95/52 L 100 11/05/18 13:00 11/05/18 14:00 11/05/18 14:00 11/05/18 13:59 11/05/18 14:00 Intake and Output: 11/05/18 11/05/18 06:59 18:59 Intake Total 1020 680 Output Total 100 Balance 920 680 - Medications Medications: Current Medications Acetaminophen (Tylenol 650mg/20.3ml Solution Ud) 650 mg PO Q6 PRN PRN Reason: pain+fever Last Admin: 11/05/18 09:09 Dose: 650 mg Aspirin (Aspirin Chewable) 81 mg PO DAILY [facility] Last Admin: 11/05/18 09:07 Dose: 81 mg Dextrose (Dextrose 50% Inj) 0 ml IV STAT PRN; Protocol PRN Reason: Hypoglycemia Protocol Dextrose (Glutose 15) 0 gm PO ONCE PRN; Protocol PRN Reason: Hypoglycemia Protocol Epoetin Dedrick (Procrit) 10,000 unit IV TTS [facility] Last Admin: 11/03/18 13:33 Dose: 10,000 unit Glucagon (Glucagen Diagnostic Kit) 0 mg IM STAT PRN; Protocol PRN Reason: Hypoglycemia Protocol Heparin Sodium (Porcine) (Heparin) 1,000 units IVP ONCE [facility] Last Admin: 11/01/18 15:30 Dose: 1,000 units Norepinephrine Bitartrate 4 mg (/ Sodium Chloride) 254 mls @ 15.24 mls/hr IV .[id number] PRN; Protocol PRN Reason: TITRATE PER MD ORDER Last Titration: 11/04/18 14:03 Dose: 0 mcg/min, 0 mls/hr Meropenem 500 mg/ Sodium (Chloride) 100 mls @ 100 mls/hr IVPB DAILY [facility]; Protocol Last Admin: 11/05/18 09:09 Dose: 100 mls/hr Vancomycin HCl 500 mg/ Sodium (Chloride) 100 mls @ 100 mls/[facility]; Pr ot[facility] Last Admin: 10/31/18 12:44 Dose: Not Given Valproate Sodium 500 mg/ (Sodium Chloride) 105 mls @ 50 mls/hr IVPB Q12 [facility] Last Admin: 11/05/18 09:07 Dose: 50 mls/hr Micafungin Sodium 100 mg/ (Sodium Chloride) 100 mls @ 100 mls/hr IV Q24H [facility]; Protocol Last Admin: 11/04/18 18:50 Dose: 100 mls/hr Insulin Aspart (Novolog) 0 unit SC Q6H [facility]; Protocol Last Admin: 11/05/18 12:10 Dose: 6 u Insulin Detemir (Levemir) 40 unit SC HS [facility] Last Admin: 11/04/18 21:41 Dose: 40 u Insulin Detemir (Levemir) 30 unit SC DAILY [facility] Last Admin: 11/05/18 09:08 Dose: 30 u Levetiracetam (Keppra) 1,000 mg PO BID [facility] Last Admin: 11/05/18 09:08 Dose: 1,000 mg Levothyroxine Sodium (Synthroid) 50 mcg PO 0600 [facility] Last Admin: 11/05/18 06:07 Dose: 50 mcg Metronidazole (Flagyl) 500 mg PO Q8 [facility]; Protocol Last Admin: 11/05/18 14:07 Dose: 500 mg Pantoprazole Sodium (Protonix Susp) 40 mg PO 0600 [facility] Last Admin: 11/05/18 06:08 Dose: 40 mg Rosuvastatin Calcium (Crestor) 10 mg PO HS [facility] Last Admin: 11/04/18 21:41 Dose: 10 mg Saccharomyces Boulardii (Florastor) 250 mg PO TID [facility] Last Admin: 11/05/18 14:08 Dose: 250 mg - Labs Labs: 11/05/18 05:52 11/05/18 05:52 PT 14.3 SECONDS (9.7-12.2) H 11/05/18 05:52 INR 1.3 11/05/18 05:52 APTT 43 SECONDS (21-34) H 11/05/18 05:52
--- NOTE | 2018-11-05 15:05 | PCM.VEEG ---
Video EEG - Procedure Start Date: 11/03/18 Start Time: 07:25 End Date: 11/04/18 End Time: 08:50 Technical Summary: DATA ACQUISITION: This was a multichannel inpatient video-EEG, a minimum of 22 channels were uti lized, performed in accordance with recommendations specified by the [place] [employer] (Glenda Reid et al. ACNS Guideline 1: Minimum Technical Requirements for Performing Clinical Electroencephalography. Journal of Clinical Neurophysiology 2016;33:303-7). The 10-20 electrode placement system was utilized in accordance with guidelines detailed by the International Federation of Clinical Neurophysiology (Michelle Chakraborty et al. The Ten-Twenty Electrode System of the International Federation. Recommendations for the Practice of Clinical Neurophysiology: Guidelines of the International Federation of Clinical Physiology 1999; EEG Suppl. 52.). DATA REVIEW / SPIKE DETECTION / DIGITAL ANALYSIS: The entire EEG was scanned and reviewed. Synchronized audio and video recording were reviewed at the time of each alarm and whenever an abnormality or suspicious activity was noted. The entire recording was analyzed utilizing an automated digital spike and seizure analysis program and all automatic spike and seizure detections were manually reviewed. A compressed spectral array was displayed and reviewed alongside the raw EEG tracings. In addition, further analysis of the EEG was performed when abnormalities were identified, including montage changes, dipole source localization, and frequency band identification. Video portion of the study is necessary to correlate abnormal EEG activity with clinical behavior. This study was attended 24 hours per day - Interpretation Description of the study: Indication; status epilepticus EEG Finding during wakefulness: Resting wakefulness was characterized by a porly developed posterior dominant rhythm of 6 Hz, 30-50 uV, which was poorly reactive to eye opening and closing and it was poorly sustained, in addition upon arousal there was an activation of the triphasic sharps. Drowsiness was associated with slow roving eye movements, slowing and fragmentation of the posterior dominant rhythm, and bilateral 4-7 Hz, 40-70 uV theta activity, sometimes with a shifting predominance. EEG Finding during sleep: Normal sleep architecture was not seen. When patient was clinically asleep the EEG showed diffsue 4 to5 hz slowing. Interictal non-epileptiform abnormalities: There were frequent runs of bilateral right more than left frontal sharp waves with triphasic morphology that were more frequent seen during transition from wakefulness to sleep or vice versa, that were seen in isolation or in rhythmic runs, lasting for several minutes, these improved towards the end and were not seen on the last day of monitoring. NO organized seizure activity was seen. Interictal epileptiform abnormalities: None Ictal epileptiform abnormalities: None - Impression Impression: This is an abnormal video-EEG monitoring study due to the presence of 1) Moderate diffuse background slowing.. 2) Bifrontal sharp waves with triphasic morphology, seen in prolonged runs. No seizures, not in status. EEG is similar tot he first 24 hs. INTERPRETATION: These findings are consistent with a moderate diffuse disturbance of cortical activity, in keeping with a diffuse browne matter dysfunction; these findings do not support a specific etiology, however these findings re usually seen in toxic-metabolic encephalopathies, these filings need to be correlated with the clinical scenario. .
--- NOTE | 2018-11-05 15:13 | PCM.VEEG ---
Video EEG - Procedure Start Date: 11/04/18 Start Time: 08:50 End Date: 11/25/18 End Time: 12:15 Technical Summary: DATA ACQUISITION: This was a multichannel inpatient video-EEG, a minimum of 22 channels were uti lized, performed in accordance with recommendations specified by the [place] [employer] (Glenda Reid et al. ACNS Guideline 1: Minimum Technical Requirements for Performing Clinical Electroencephalography. Journal of Clinical Neurophysiology 2016;33:303-7). The 10-20 electrode placement system was utilized in accordance with guidelines detailed by the International Federation of Clinical Neurophysiology (Michelle Chakraborty et al. The Ten-Twenty Electrode System of the International Federation. Recommendations for the Practice of Clinical Neurophysiology: Guidelines of the International Federation of Clinical Physiology 1999; EEG Suppl. 52.). DATA REVIEW / SPIKE DETECTION / DIGITAL ANALYSIS: The entire EEG was scanned and reviewed. Synchronized audio and video recording were reviewed at the time of each alarm and whenever an abnormality or suspicious activity was noted. The entire recording was analyzed utilizing an automated digital spike and seizure analysis program and all automatic spike and seizure detections were manually reviewed. A compressed spectral array was displayed and reviewed alongside the raw EEG tracings. In addition, further analysis of the EEG was performed when abnormalities were identified, including montage changes, dipole source localization, and frequency band identification. Video portion of the study is necessary to correlate abnormal EEG activity with clinical behavior. This study was attended 24 hours per day. . - Interpretation Description of the study: Indication status epilepticus There was a significant amount of muscle and electrode artifact seen during the test specially in the last 5 hs of recording. EEG Finding during wakefulness: There was no normal awake architecture seen, thought out the record and when the patient was not stimulated the frequencies were in the 4 to 5 Hz seen diffusely bilaterally with inter mixed bifrontal sharp waves. When she was stimulated th EEG showed monotonous frequencies in the 5 to 6 hz range, not organized, poorly reactive to stimulation. The EEG was not organized. Organization and reactivity seems better than on the firs days. EEG Finding during sleep: No discernible sleep architecture was seen. Interictal non-epileptiform abnormalities: There were frequent runs of bilateral right more than left frontal sharp waves with triphasic morphology that were more frequent seen during transition from wakefulness to sleep or vice versa, that were seen in isolation or in rhythmic runs, lasting for several minutes. NO organized seizure activity was seen. These show improved on this day of monitoring. Interictal epileptiform abnormalities: None Ictal epileptiform abnormalities: None - Impression Impression: This is an abnormal video-EEG monitoring study due to the presence of 1) Moderate to severe diffuse slowing. 2) Bifrontal sharp waves with triphasic morphology, overall improved. No seizures not in status epilepticus. INTERPRETATION: These findings are consistent with a moderate to severe diffuse disturbance of cortical activity, in keeping with a diffuse browne matter dysfunction; these findings do not support a specific etiology, however these findings are commonly seen in toxic metabolic encephalopahties.
--- NOTE | 2018-11-05 17:22 | CT ---
Date of service: 11/05/2018 PROCEDURE: CT Abdomen and Pelvis without intravenous contrast HISTORY: rectal abscess COMPARISON: Comparison is made with the previous study dated 10/30/2018 TECHNIQUE: Axial and reformatted coronal and sagittal CT images of the abdomen and pelvis were obtained without IV or oral contrast administration.. Contrast dose: 0 Radiation dose: Total exam DLP = 1168.81 mGy-cm. This CT exam was performed using one or more of the following dose reduction techniques: Automated exposure control, adjustment of the mA and/or kV according to patient size, and/or use of iterative reconstruction technique. FINDINGS: LOWER THORAX: Small opacities noted at the lung bases may represent atelectasis. The heart is enlarged. No evidence of pleural effusion. LIVER: The liver is mildly enlarged. No definite evidence of discrete mass lesion in this noncontrast study noted in the liver. GALLBLADDER AND BILE DUCTS: Gallbladder score PANCREAS: Unremarkable. No gross lesion or ductal dilatation. SPLEEN: Unremarkable. ADRENALS: Unremarkable. No mass. KIDNEYS AND URETERS: Unremarkable. No hydronephrosis. No solid mass. VASCULATURE: Unremarkable. No aortic aneurysm. No aortic atherosclerotic calcification or mural plaque present. BOWEL: The patient is status post gastrostomy tube insertion. There are few scattered colonic diverticulosis noted without evidence of diverticulitis. No evidence of high-grade bowel obstruction. There is distal rectal wall thickening and anal wall thickening noted. There is suspicious for fluid collection anterior to the distal rectum and anus not well defined in this noncontrast study. There is a small tube extending into the rectum. APPENDIX: No evidence of appendicitis. PERITONEUM: Unremarkable. No free fluid. No free air. LYMPH NODES: Unremarkable. No enlarged lymph nodes. BLADDER: The urinary bladder is not distended REPRODUCTIVE: The patient is status post hysterectomy. BONES: Diffuse heterogeneous attenuation of the osseous structure is noted. OTHER FINDINGS: None. IMPRESSION: Limited evaluation without IV contrast administration Suspicious for distal rectal and anal wall thickening. Fluid collection anterior to the anus. The possibility of abscess formation should be considered.
[2018-11-05] MEDS: MethylPREDNISolone 40 mg Vial IVP SCH ×2 (17:49→22:03)
[2018-11-05] MEDS: Micafungin 100 MG in Sodium Chloride 0.9% 100 ML IV SCH (18:01)
--- NOTE | 2018-11-05 23:28 | CP.PCM.PN ---
Subjective - Date & Time of Evaluation Date of Evaluation: 11/05/18 Time of Evaluation: 23:28 - Subjective Subjective: Patient seen and evaluated No new cardiac events noted On Ventilator Physical Examination - Head Exam Head Exam: ATRAUMATIC, NORMAL INSPECTION - Eye Exam Eye Exam: EOMI, Normal appearance, PERRL. absent: Periorbital tenderness Pupil Exam: NORMAL ACCOMODATION - ENT Exam ENT Exam: Mucous Membranes Moist, Normal Oropharynx - Respiratory Exam Respiratory Exam: Clear to Ausculation Bilateral. absent: Prolonged Expiratory Phase, Respiratory Distress - Cardiovascular Exam Cardiovascular Exam: REGULAR RHYTHM, +S1, +S2. absent: Rubs - GI/Abdominal Exam GI & Abdominal Exam: Soft, Normal Bowel Sounds. absent: Hyperactive Bowel Sounds - Extremities Exam Extremities Exam: absent: Pedal Edema - Back Exam Back Exam: NORMAL INSPECTION. absent: CVA tenderness (R), paraspinal tenderness - Neurological Exam Neurological Exam: Altered - Psychiatric Exam Psychiatric exam: Agitated, Normal Affect, Normal Mood - Skin Skin Exam: Dry Assessment and Plan - Assessment and Plan (Free Text) Assessment: 72 year old female with past medical history of CAD, CHF, HTN, HLD, pituitary adenoma, is being seen s/p respiratory arrest during AV fistula placement surgery. s/p permacath on 10-11-18; possible AMS due to anoxic brain injury, now on HD MWF, tracheostomy done on 10/18/17, planning for PEG placement by GI today. Plan: Respiratory failure - Currently intubated and sedated. Management per primary care team - Completed hypothermic protocol -Bedside PEG placement completed today. Medications: Levetiracetam 420mls/hrIVPB Q12H MIR MRSA in trach -Continue Cefepime 1gm ivpb daily -Continue Vancomycin 1gm ivpb mwf Anoxic brain injury -Pending repeat MRI at [place]. Patient remains agigtated and unable to go for imaging at this time. HTN -Lopressor 12.5mg NG BID MIR HLD -Continue Rosuvastatin 10mg PO HS MIR CAD -Continue Aspirin 81mg PO Daily MIR DM -Levemir 30UNIT sc q12 mir Hypothyroidism -Continue Synthroid 50mcg PO 0600 MIR CKD on HD - S/p right permacath placed on 10/11 -Procrit 10,000 unit IV MWF ppx -Protonix -Heparin Objective - Vital Signs/Intake and Output Vital Signs (last 24 hours): Temp Pulse Resp BP Pulse Ox 98.7 F 90 21 147/68 100 11/05/18 17:00 11/05/18 20:39 11/05/18 20:39 11/05/18 20:39 11/05/18 20:39 Intake and Output: 11/05/18 11/06/18 18:59 06:59 Intake Total 920 220 Output Total 500 Balance 420 220 - Medications Medications: Current Medications Acetaminophen (Tylenol 650mg/20.3ml Solution Ud) 650 mg PO Q6 PRN PRN Reason: pain+fever Last Admin: 11/05/18 09:09 Dose: 650 mg Aspirin (Aspirin Chewable) 81 mg PO DAILY [facility] Last Admin: 11/05/18 09:07 Dose: 81 mg Dextrose (Dextrose 50% Inj) 0 ml IV STAT PRN; Protocol PRN Reason: Hypoglycemia Protocol Dextrose (Glutose 15) 0 gm PO ONCE PRN; Protocol PRN Reason: Hypoglycemia Protocol Epoetin Dedrick (Procrit) 10,000 unit IV TTS [facility] Last Admin: 11/03/18 13:33 Dose: 10,000 unit Glucagon (Glucagen Diagnostic Kit) 0 mg IM STAT PRN; Protocol PRN Reason: Hypoglycemia Protocol Heparin Sodium (Porcine) (Heparin) 1,000 units IVP ONCE [facility] Last Admin: 11/01/18 15:30 Dose: 1,000 units Norepinephrine Bitartrate 4 mg (/ Sodium Chloride) 254 mls @ 15.24 mls/hr IV .[id number] PRN; Protocol PRN Reason: TITRATE PER MD ORDER Last Titration: 11/04/18 14:03 Dose: 0 mcg/min, 0 mls/hr Meropenem 500 mg/ Sodium (Chloride) 100 mls @ 100 mls/hr IVPB DAILY [facility]; Protocol Last Admin: 11/05/18 09:09 Dose: 100 mls/hr Vancomycin HCl 500 mg/ Sodium (Chloride) 100 mls @ 100 mls/hr IVPB MWF [facility]; Protocol Last Admin: 10/31/18 12:44 Dose: Not Given Valproate Sodium 500 mg/ (Sodium Chloride) 105 mls @ 50 mls/hr IVPB Q12 MIR Last Admin: 11/05/18 22:02 Dose: 50 mls/hr Micafungin Sodium 100 mg/ (Sodium Chloride) 100 mls @ 100 mls/hr IV Q24H [facility]; Protocol Last Admin: 11/05/18 18:01 Dose: 100 mls/hr Insulin Aspart (Novolog) 0 unit SC Q6H [facility]; Protocol Last Admin: 11/05/18 18:34 Dose: 10 u Insulin Detemir (Levemir) 40 unit SC HS [facility] Last Admin: 11/05/18 22:04 Dose: 40 u Insulin Detemir (Levemir) 30 unit SC DAILY [facility] Last Admin: 11/05/18 09:08 Dose: 30 u Levetiracetam (Keppra) 1,000 mg PO BID [facility] Last Admin: 11/05/18 17:49 Dose: 1,000 mg Levothyroxine Sodium (Synthroid) 50 mcg PO 0600 [facility] Last Admin: 11/05/18 06:07 Dose: 50 mcg Methylprednisolone (Solu-Medrol) 40 mg IVP Q12 [facility] Last Admin: 11/05/18 22:03 Dose: 40 mg Metronidazole (Flagyl) 500 mg PO Q8 [facility]; Protocol Last Admin: 11/05/18 22:03 Dose: 500 mg Pantoprazole Sodium (Protonix Susp) 40 mg PO 0600 [facility] Last Admin: 11/05/18 06:08 Dose: 40 mg Rosuvastatin Calcium (Crestor) 10 mg PO HS [facility] Last Admin: 11/05/18 22:02 Dose: 10 mg Saccharomyces Boulardii (Florastor) 250 mg PO TID [facility] Last Admin: 11/05/18 17:50 Dose: 250 mg - Labs Labs: 11/05/18 05:52 11/05/18 05:52 PT 14.3 SECONDS (9.7-12.2) H 11/05/18 05:52 INR 1.3 11/05/18 05:52 APTT 43 SECONDS (21-34) H 11/05/18 05:52
[2018-11-06] MEDS: (Novolog) Insulin Aspart, Recombinant 100 u/ml 10 ml vial SC SCH ×3 (05:39→18:22)
[2018-11-06] MEDS: Levothyroxine 50 MCG TAB PO SCH (05:40)
--- NOTE | 2018-11-06 05:40 | PN ---
DATE: 11/05/2018 INFECTIOUS DISEASE FOLLOWUP SUBJECTIVE: I went to see this patient. She had an LP done today and she was also getting care to her back wound. Her back wound has become necrotic and big size. The wound care nurse, Gamal, was applying dressing to it. She also has perirectal redness and swelling and may have developed a fungal infection there. She has already been on Diflucan, and yesterday I changed it to Mycamine as her sputum and wound showed yeast species, and it could be not only Romina, to broaden the coverage as she has been having fevers. She remains unresponsive on trach vent. PHYSICAL EXAMINATION: VITAL SIGNS: Show temperature today temp is 98.7, pulse is 84, blood pressure is 99/48. Respirations are on the trach vent. Oxygen saturation is unremarkable. HEENT: She opened her eyes today somehow but was not focusing. Trach site appears unremarkable. NECK: Supple. LUNGS: Clear. No crackles or rales heard. HEART: S1 and S2 present. ABDOMEN: Soft, flabby, nontender. She is having constant diarrhea which is watery; however, her C. Diff was _negative____ she is on feedings, and the nurse told me the oral feeding had been changed. EXTREMITIES: Remain with protectors. LABORATORY DATA: White count is 11.4, hemoglobin 8.9, hematocrit 28.9, platelet count is 96. Vancomycin random level has been high, so we have been holding it off. BUN is 41 and creatinine is 5.7, elevated. She was going to go for CAT scan of abdomen. C. diff on 10/30/2018 was negative. Toxicology shows her vancomycin random was 27.8 on 11/03/2018. We will reorder a vancomycin random level for tomorrow morning. She had an LP done, which showed wbc 1 and rbc 0, so it is unremarkable, glucose was 129, so she does not have any meningitis. Her white count, we already have at 11.4 at this time. __machine___ diff shows that there are 10.8 for eosinophils, so maybe she is reacting to some drug. We have done stool studies for eosinophilia. ASSESSMENT AND PLAN: She is a dialysis patient, does have a dialysis catheter and had issues with that also. So at this time, I will renew the present antibiotics and will hopefully find the source. Actually I am also looking for the CAT scan report, the CAT scan of the abdomen and pelvis. Chest x-ray was done today and that shows limited suspicious for distal rectal and anal wall thickening, fluid collection anterior to the anus, the possibility of the abscess formation should be considered, so they are talking about the abscess formation. She does have a drainage and she has no evidence of high-grade bowel obstruction, so we will leave her on Flagyl as well as other antibiotics for anal abscess along with fungal coverage. We will follow. Prognosis is poor. The patient has anoxic encephalopathy. She has renal issues. She has multiorgan failure, respiratory failure and renal failure, so we will follow. Actually, they did not do the random level that I had asked for, so we will repeat it tomorrow. Sara Barrios MD MTDD
[2018-11-06] MEDS: Pantoprazole 40 mg Susp UD PO SCH (05:41)
[2018-11-06 06:32] LABS: BASO % 0.4 % (0.0-2.0); EOS # 0.1 K/uL (0.0-0.7); EOS % 0.7 % (0.0-4.0); HEMOGLOBIN 8.4 g/dL (11.0-16.0); LYMPH # 0.6 K/uL (1.0-4.3); MEAN CELL VOLUME 91.9 fL (81.0-99.0); MEAN CORPUSCULAR HEMOGLOBIN 28.2 pg (27.0-31.0); MEAN CORPUSCULAR HGB CONC 30.7 g/dL (33.0-37.0); MONO # 0.2 K/uL (0.0-0.8); MONO % 2.5 % (0.0-10.0); NEUT # 9.1 K/uL (1.8-7.0); NEUT % 90.4 % (50.0-75.0); NRBC % 1.2 % (0.0-2.0); PLATELET COUNT 128 K/uL (130-400); RBC 2.99 Mil/uL (3.80-5.20); RED CELL DISTRIBUTION WIDTH 19.1 % (11.5-14.5)
[2018-11-06 06:49] LABS: ALBUMIN 2.9 g/dL (3.5-5.0); CALCIUM 7.7 mg/dl (8.6-10.4)
[2018-11-06 08:40] LABS: LYMPHOCYTE 6 % (20-40); MONOCYTE 3 % (0-10); NEUTROPHIL 91 % (50-75); PLATELET ESTIMATE SLIGHTLY DECREASED (NORMAL); TOTAL CELLS COUNTED 100
[2018-11-06 08:41] LABS: ANISOCYTOSIS SLIGHT; BURR CELLS SLIGHT; HYPOCHROMIC MODERATE; MICROCYTOSIS SLIGHT; POIKILOCYTOSIS SLIGHT
[2018-11-06 08:42] LABS: GIANT PLATELETS PRESENT; LARGE PLATELETS PRESENT; OVALOCYTES SLIGHT; POLYCHROMIC SLIGHT
--- NOTE | 2018-11-06 09:06 | CP.PCM.PN ---
Subjective - Date & Time of Evaluation Date of Evaluation: 11/06/18 Time of Evaluation: 09:04 - Subjective Subjective: seen and examined low grade fevers noted eeg suggestive of toxic metabolic encephalopathy remains on vent, minimally responsive Objective - Vital Signs/Intake and Output Vital Signs (last 24 hours): Temp Pulse Resp BP Pulse Ox 99.1 F 79 13 131/75 100 11/06/18 08:00 11/06/18 08:00 11/06/18 08:00 11/06/18 07:51 11/06/18 08:00 Intake and Output: 11/06/18 11/06/18 06:59 18:59 Intake Total 1120 120 Output Total 200 Balance 920 120 - Medications Medications: Current Medications Acetaminophen (Tylenol 650mg/20.3ml Solution Ud) 650 mg PO Q6 PRN PRN Reason: pain+fever Last Admin: 11/05/18 09:09 Dose: 650 mg Aspirin (Aspirin Chewable) 81 mg PO DAILY REPLAC[facility] BY [facility] Last Admin: 11/05/18 09:07 Dose: 81 mg Dextrose (Dextrose 50% Inj) 0 ml IV STAT PRN; Protocol PRN Reason: Hypoglycemia Protocol Dextrose (Glutose 15) 0 gm PO ONCE PRN; Protocol PRN Reason: Hypoglycemia Protocol Epoetin Dedrick (Procrit) 10,000 unit IV TTS [facility]PL[facility] Last Admin: 11/03/18 13:33 Dose: 10,000 unit Glucagon (Glucagen Diagnostic Kit) 0 mg IM STAT PRN; Protocol PRN Reason: Hypoglycemia Protocol Heparin Sodium (Porcine) (Heparin) 1,000 units IVP ONCE [facility]PLACED [facility] Last Admin: 11/01/18 15:30 Dose: 1,000 units Norepinephrine Bitartrate 4 mg (/ Sodium Chloride) 254 mls @ 15.24 mls/hr IV .[id number] PRN; Protocol PRN Reason: TITRATE PER MD ORDER Last Titration: 11/04/18 14:03 Dose: 0 mcg/min, 0 mls/hr Meropenem 500 mg/ Sodium (Chloride) 100 mls @ 100 mls/hr IVPB DAILY [facility]PL[facility] BY [facility]; Protocol Last Admin: 11/05/18 09:09 Dose: 100 mls/hr Vancomycin HCl 500 mg/ Sodium (Chloride) 100 mls @ 100 mls/hr IVPB MWF REPLACED BY [facility]; Protocol Last Admin: 10/31/18 12:44 Dose: Not Given Valproate Sodium 500 mg/ (Sodium Chloride) 105 mls @ 50 mls/hr IVPB Q12 REPLACED BY [facility] Last Admin: 11/05/18 22:02 Dose: 50 mls/hr Micafungin Sodium 100 mg/ (Sodium Chloride) 100 mls @ 100 mls/hr IV Q24H REPLACED BY [facility]; Protocol Last Admin: 11/05/18 18:01 Dose: 100 mls/hr Insulin Aspart (Novolog) 0 unit SC Q6H REPLACED BY [facility]; Protocol Last Admin: 11/06/18 05:39 Dose: 12 u Insulin Detemir (Levemir) 40 unit SC HS REPLACED BY [facility] Last Admin: 11/05/18 22:04 Dose: 40 u Insulin Detemir (Levemir) 30 unit SC DAILY [facility]PL[facility]ED BY [facility] Last Admin: 11/05/18 09:08 Dose: 30 u Levetiracetam (Keppra) 1,000 mg PO BID [facility]PL[facility] BY [facility] Last Admin: 11/05/18 17:49 Dose: 1,000 mg Levothyroxine Sodium (Synthroid) 50 mcg PO 0600 [facility]PL[facility]ED BY [facility] Last Admin: 11/06/18 05:40 Dose: 50 mcg Methylprednisolone (Solu-Medrol) 40 mg IVP Q12 [facility]PLACED BY [facility] Last Admin: 11/05/18 22:03 Dose: 40 mg Metronidazole (Flagyl) 500 mg PO Q8 REPLACED BY [facility]; Protocol Last Admin: 11/06/18 05:40 Dose: 500 mg Pantoprazole Sodium (Protonix Susp) 40 mg PO 0600 REPLACED BY [facility] Last Admin: 11/06/18 05:41 Dose: 40 mg Rosuvastatin Calcium (Crestor) 10 mg PO HS REPLACED BY [facility] Last Admin: 11/05/18 22:02 Dose: 10 mg Saccharomyces Boulardii (Florastor) 250 mg PO TID REPLACED BY [facility] Last Admin: 11/05/18 17:50 Dose: 250 mg - Labs Labs: 11/06/18 06:19 11/06/18 06:19 PT 14.3 SECONDS (9.7-12.2) H 11/05/18 05:52 INR 1.3 11/05/18 05:52 APTT 43 SECONDS (21-34) H 11/05/18 05:52 - Constitutional Appears: No Acute Distress, Older Than Stated Age, Chronically Ill - Head Exam Head Exam: NORMAL INSPECTION, NORMOCEPHALIC - Eye Exam Eye Exam: Normal appearance Pupil Exam: PERRL - ENT Exam ENT Exam: Mucous Membranes Dry - Neck Exam Neck Exam: Normal Inspection (trach-vent) - Respiratory Exam Respiratory Exam: Decreased Breath Sounds (b/l mechanical vent sounds) - Cardiovascular Exam Cardiovascular Exam: REGULAR RHYTHM, RRR - GI/Abdominal Exam GI & Abdominal Exam: Distended, Soft - Extremities Exam Extremities Exam: Normal Inspection - Neurological Exam Neurological Exam: absent: Alert, Awake - Skin Skin Exam: Intact, Warm Assessment and Plan (1) ESRD (end stage renal disease) Status: Acute (2) CAD (coronary artery disease) Status: Acute (3) CHF (congestive heart failure) Status: Acute (4) Hypertension Status: Acute - Assessment and Plan (Free Text) Assessment: maintain hd neuro eval ongoing tube feeds needs blood sugar control
[2018-11-06] MEDS: Saccharomyces Boulardi 250 mg Cap PO SCH ×3 (09:34→18:19)
[2018-11-06] MEDS: MethylPREDNISolone 40 mg Vial IVP SCH ×2 (09:35→21:50)
[2018-11-06] MEDS: levETIRAcetam 100 mg/ml (5ml) Oral Syringe PO SCH ×2 (09:35→18:18)
[2018-11-06] MEDS: Insulin Detemir 100 units/ml Vial (Levemir) SC SCH ×2 (09:36→21:52)
[2018-11-06] MEDS: Meropenem 500 MG in Sodium Chloride 0.9% 100 ML IVPB SCH ×2 (10:00→14:13)
[2018-11-06] MEDS: Valproate 500 MG in Sodium Chloride 0.9% 100 ML IVPB SCH ×3 (10:00→21:53)
[2018-11-06] MEDS: Epoetin Alfa 10,000 unit/ml Dialysis IV SCH (12:32)
--- NOTE | 2018-11-06 14:32 | CP.PCM.PN ---
Subjective - Date & Time of Evaluation Date of Evaluation: 11/06/18 Time of Evaluation: 14:20 - Subjective Subjective: dictated Objective - Vital Signs/Intake and Output Vital Signs (last 24 hours): Temp Pulse Resp BP Pulse Ox 97.4 F L 83 23 139/77 100 11/06/18 13:45 11/06/18 13:46 11/06/18 13:46 11/06/18 13:47 11/06/18 13:46 Intake and Output: 11/06/18 11/06/18 06:59 18:59 Intake Total 1120 460 Output Total 200 Balance 920 460 - Medications Medications: Current Medications Acetaminophen (Tylenol 650mg/20.3ml Solution Ud) 650 mg PO Q6 PRN PRN Reason: pain+fever Last Admin: 11/05/18 09:09 Dose: 650 mg Aspirin (Aspirin Chewable) 81 mg PO DAILY [facility] Last Admin: 11/06/18 09:34 Dose: 81 mg Dextrose (Dextrose 50% Inj) 0 ml IV STAT PRN; Protocol PRN Reason: Hypoglycemia Protocol Dextrose (Glutose 15) 0 gm PO ONCE PRN; Protocol PRN Reason: Hypoglycemia Protocol Epoetin Dedrick (Procrit) 10,000 unit IV TTS [facility] Last Admin: 11/06/18 12:32 Dose: 10,000 unit Glucagon (Glucagen Diagnostic Kit) 0 mg IM STAT PRN; Protocol PRN Reason: Hypoglycemia Protocol Heparin Sodium (Porcine) (Heparin) 1,000 units IVP ONCE [facility] Last Admin: 11/01/18 15:30 Dose: 1,000 units Meropenem 500 mg/ Sodium (Chloride) 100 mls @ 100 mls/hr IVPB DAILY [facility]; Protocol Last Admin: 11/06/18 14:13 Dose: 100 mls/hr Vancomycin HCl 500 mg/ Sodium (Chloride) 100 mls @ 100 mls/hr IVPB MWF [facility]; Protocol Last Admin: 10/31/18 12:44 Dose: Not Given Valproate Sodium 500 mg/ (Sodium Chloride) 105 mls @ 50 mls/hr IVPB Q12 [facility] Last Admin: 11/06/18 14:12 Dose: 50 mls/hr Micafungin Sodium 100 mg/ (Sodium Chloride) 100 mls @ 100 mls/hr IV Q24H [facility]; Protocol Last Admin: 11/05/18 18:01 Dose: 100 mls/hr Insulin Aspart (Novolog) 0 unit SC Q6H [facility]; Protocol Last Admin: 11/06/18 12:31 Dose: 12 u Insulin Detemir (Levemir) 40 unit SC HS [facility] Last Admin: 11/05/18 22:04 Dose: 40 u Insulin Detemir (Levemir) 30 unit SC DAILY [facility] Last Admin: 11/06/18 09:36 Dose: 30 u Levetiracetam (Keppra) 1,000 mg PO BID [facility] Last Admin: 11/06/18 09:35 Dose: 1,000 mg Levothyroxine Sodium (Synthroid) 50 mcg PO 0600 [facility] Last Admin: 11/06/18 05:40 Dose: 50 mcg Methylprednisolone (Solu-Medrol) 20 mg IVP Q12 [facility] Last Admin: 11/06/18 09:35 Dose: 20 mg Metronidazole (Flagyl) 500 mg PO Q8 [facility]; Protocol Last Admin: 11/06/18 14:14 Dose: 500 mg Pantoprazole Sodium (Protonix Susp) 40 mg PO 0600 [facility] Last Admin: 11/06/18 05:41 Dose: 40 mg Rosuvastatin Calcium (Crestor) 10 mg PO HS [facility] Last Admin: 11/05/18 22:02 Dose: 10 mg Saccharomyces Boulardii (Florastor) 250 mg PO TID [facility] Last Admin: 11/06/18 14:14 Dose: 250 mg - Labs Labs: 11/06/18 06:19 11/06/18 06:19 PT 14.3 SECONDS (9.7-12.2) H 11/05/18 05:52 INR 1.3 11/05/18 05:52 APTT 43 SECONDS (21-34) H 11/05/18 05:52
--- NOTE | 2018-11-06 14:48 | CP.PCM.PN ---
Subjective - Date & Time of Evaluation Date of Evaluation: 11/06/18 Time of Evaluation: 14:12 - Subjective Subjective: Surgery: Dr. Blank Called by ICU team to evaluate pt due to concerning CT abdomen/pelvis finding for small amount of air/fluid anterior to the rectum. Rectal exam performed and unremarkable other than surrounding erythema and irritation due to rectal tube. CT images reviewed as well and at this time no need for surgical intervention. Pt seen and examined with Dr. Blank and case discussed with ICU team. Objective - Vital Signs/Intake and Output Vital Signs (last 24 hours): Temp Pulse Resp BP Pulse Ox 97.4 F L 83 23 139/77 100 11/06/18 13:45 11/06/18 13:46 11/06/18 13:46 11/06/18 13:47 11/06/18 13:46 Intake and Output: 11/06/18 11/06/18 06:59 18:59 Intake Total 1120 460 Output Total 200 Balance 920 460 - Medications Medications: Current Medications Acetaminophen (Tylenol 650mg/20.3ml Solution Ud) 650 mg PO Q6 PRN PRN Reason: pain+fever Last Admin: 11/05/18 09:09 Dose: 650 mg Aspirin (Aspirin Chewable) 81 mg PO DAILY [facility] Last Admin: 11/06/18 09:34 Dose: 81 mg Dextrose (Dextrose 50% Inj) 0 ml IV STAT PRN; Protocol PRN Reason: Hypoglycemia Protocol Dextrose (Glutose 15) 0 gm PO ONCE PRN; Protocol PRN Reason: Hypoglycemia Protocol Epoetin Dedrick (Procrit) 10,000 unit IV TTS [facility] Last Admin: 11/06/18 12:32 Dose: 10,000 unit Glucagon (Glucagen Diagnostic Kit) 0 mg IM STAT PRN; Protocol PRN Reason: Hypoglycemia Protocol Heparin Sodium (Porcine) (Heparin) 1,000 units IVP ONCE [facility] Last Admin: 11/01/18 15:30 Dose: 1,000 units Meropenem 500 mg/ Sodium (Chloride) 100 mls @ 100 mls/hr IVPB DAILY [facility]; Protocol Last Admin: 11/06/18 10:00 Dose: Not Given Vancomycin HCl 500 mg/ Sodium (Chloride) 100 mls @ 100 mls/hr IVPB MWF [facility]; Protocol Last Admin: 10/31/18 12:44 Dose: Not Given Valproate Sodium 500 mg/ (Sodium Chloride) 105 mls @ 50 mls/hr IVPB Q12 [facility] Last Admin: 11/06/18 10:00 Dose: Not Given Micafungin Sodium 100 mg/ (Sodium Chloride) 100 mls @ 100 mls/hr IV Q24H [facility]; Protocol Last Admin: 11/05/18 18:01 Dose: 100 mls/hr Insulin Aspart (Novolog) 0 unit SC Q6H [facility]; Protocol Last Admin: 11/06/18 12:31 Dose: 12 u Insulin Detemir (Levemir) 40 unit SC HS [facility] Last Admin: 11/05/18 22:04 Dose: 40 u Insulin Detemir (Levemir) 30 unit SC DAILY [facility] Last Admin: 11/06/18 09:36 Dose: 30 u Levetiracetam (Keppra) 1,000 mg PO BID [facility] Last Admin: 11/06/18 09:35 Dose: 1,000 mg Levothyroxine Sodium (Synthroid) 50 mcg PO 0600 [facility] Last Admin: 11/06/18 05:40 Dose: 50 mcg Methylprednisolone (Solu-Medrol) 20 mg IVP Q12 [facility] Last Admin: 11/06/18 09:35 Dose: 20 mg Metronidazole (Flagyl) 500 mg PO Q8 [facility]; Protocol Last Admin: 11/06/18 05:40 Dose: 500 mg Pantoprazole Sodium (Protonix Susp) 40 mg PO 0600 [facility] Last Admin: 11/06/18 05:41 Dose: 40 mg Rosuvastatin Calcium (Crestor) 10 mg PO HS [facility] Last Admin: 11/05/18 22:02 Dose: 10 mg Saccharomyces Boulardii (Florastor) 250 mg PO TID [facility] Last Admin: 11/06/18 09:34 Dose: 250 mg - Labs Labs: 11/06/18 06:19 11/06/18 06:19 PT 14.3 SECONDS (9.7-12.2) H 11/05/18 05:52 INR 1.3 11/05/18 05:52 APTT 43 SECONDS (21-34) H 11/05/18 05:52
--- NOTE | 2018-11-06 15:39 | CP.CCUPN ---
<Eliseo Ríos S - Last Filed: 11/06/18 17:54> CCU Subjective - Physician Review Critical Care Time Spent (in minutes): 35 CCU Objective - Vital Signs / Intake & Output Vital Signs (Last 4 hours): Vital Signs Temp Pulse Resp BP Pulse Ox 11/06/18 16:00 98.8 F 91 H 23 100 11/06/18 15:40 78 19 151/76 H 100 11/06/18 15:00 91 H 20 100 11/06/18 14:09 92 H 21 151/67 H 100 11/06/18 14:00 90 19 100 Intake and Output (Last 8hrs): Intake & Output 11/06/18 11/06/18 11/06/18 06:59 14:59 22:59 Intake Total 580 780 220 Output Total 200 Balance 380 780 220 Weight 233 lb 2 oz Intake: Intake, IV Amount 100 100 Right Hand 100 100 Tube Feeding 480 480 120 Other 100 200 Output: Urine 0 Urine, Voided 0 Stool 200 Other: # Voids Urine, Voided 0 0 # Bowel Movements 1 - Medications Active Medications: Active Medications Generic Name Dose Route Start Last Admin Trade Name Freq PRN Reason Stop Dose Admin Acetaminophen 650 mg 10/25/18 03:30 11/05/18 09:09 Tylenol 650mg/20.3ml Solution Ud PO 650 mg Q6 PRN Administration pain+fever Aspirin 81 mg 10/08/18 10:00 11/06/18 09:34 Aspirin Chewable PO 81 mg DAILY JOCELYN Administration Dextrose 0 ml 11/01/18 12:14 Dextrose 50% Inj IV STAT PRN Hypoglycemia Protocol Protocol Dextrose 0 gm 11/01/18 12:14 Glutose 15 PO ONCE PRN Hypoglycemia Protocol Protocol Epoetin Dedrick 10,000 unit 11/01/18 14:00 11/06/18 12:32 Procrit IV 10,000 unit TTS JOCELYN Administration Glucagon 0 mg 11/01/18 12:14 Glucagen Diagnostic Kit IM STAT PRN Hypoglycemia Protocol Protocol Heparin Sodium (Porcine) 1,000 units 11/01/18 16:15 11/01/18 15:30 Heparin IVP 1,000 units ONCE JOCELYN Administration Meropenem 500 mg/ Sodium 100 mls @ 100 mls/hr 10/30/18 15:30 11/06/18 14:13 Chloride IVPB 100 mls/hr DAILY JOCELYN Administration Protocol Vancomycin HCl 500 mg/ Sodium 100 mls @ 100 mls/hr 10/31/18 09:00 10/31/18 12:44 Chloride IVPB Not Given MW JOCELYN Protocol Valproate Sodium 500 mg/ 105 mls @ 50 mls/hr 11/01/18 22:00 11/06/18 14:12 Sodium Chloride IVPB 50 mls/hr Q12 JOCELYN Administration Micafungin Sodium 100 mg/ 100 mls @ 100 mls/hr 11/04/18 19:00 11/05/18 18:01 Sodium Chloride IV 100 mls/hr Q24H JOCELYN Administration Protocol Insulin Aspart 0 unit 10/31/18 12:00 11/06/18 12:31 Novolog SC 12 u Q6H JOCELYN Administration Protocol Insulin Detemir 40 unit 10/28/18 22:00 11/05/18 22:04 Levemir SC 40 u HS JOCELYN Administration Insulin Detemir 30 unit 11/02/18 10:00 11/06/18 09:36 Levemir SC 30 u DAILY JOCELYN Administration Levetiracetam 1,000 mg 10/28/18 18:00 11/06/18 09:35 Keppra PO 1,000 mg BID JOCELYN Administration Levothyroxine Sodium 50 mcg 09/29/18 08:00 11/06/18 05:40 Synthroid PO 50 mcg 0600 JOCELYN Administration Methylprednisolone 20 mg 11/06/18 09:07 11/06/18 09:35 Solu-Medrol IVP 20 mg Q12 JOCELYN Administration Metronidazole 500 mg 10/30/18 14:15 11/06/18 14:14 Flagyl PO 500 mg Q8 JOCELYN Administration Protocol Pantoprazole Sodium 40 mg 10/09/18 06:00 11/06/18 05:41 Protonix Susp PO 40 mg 0600 JOCELYN Administration Rosuvastatin Calcium 10 mg 09/30/18 22:00 11/05/18 22:02 Crestor PO 10 mg HS JOCELYN Administration Saccharomyces Boulardii 250 mg 11/01/18 10:00 11/06/18 14:14 Florastor PO 250 mg TID JOCELYN Administration - Patient Studies Lab Studies: Microbiology Studies 11/05/18 10:54 Mycobacterial Culture - Preliminary Other: Please Indicate 11/03/18 06:21 Gram Stain - Final Tracheostomy Site Wound Culture - Final Romina Albicans 11/05/18 10:54 Gram Stain - Final Cerebral Spinal Fluid CSF Culture - Preliminary NO GROWTH AFTER 24 HOURS Lab Studies 11/06/18 11/06/18 11/06/18 Range/Units 11:41 10:16 10:16 WBC (4.8-10.8) K/uL RBC (3.80-5.20) Mil/uL Hgb (11.0-16.0) g/dL Hct (34.0-47.0) % MCV (81.0-99.0) fL MCH (27.0-31.0) pg MCHC (33.0-37.0) g/dL RDW (11.5-14.5) % Plt Count (130-400) K/uL MPV (7.2-11.7) fL Neut % (Auto) (50.0-75.0) % Lymph % (Auto) (20.0-40.0) % Towns % (Auto) (0.0-10.0) % Eos % (Auto) (0.0-4.0) % Baso % (Auto) (0.0-2.0) % Neut # (Auto) (1.8-7.0) K/uL Lymph # (Auto) (1.0-4.3) K/uL Towns # (Auto) (0.0-0.8) K/uL Eos # (Auto) (0.0-0.7) K/uL Baso # (Auto) (0.0-0.2) K/uL Neutrophils % (Manual) (50-75) % Lymphocytes % (Manual) (20-40) % Monocytes % (Manual) (0-10) % Platelet Estimate (NORMAL) Large Platelets Giant Platelets Polychromasia Hypochromasia (manual) Poikilocytosis (manual Anisocytosis (manual) Microcytosis (manual) Macrocytosis (manual) Ovalocytes Rubens Cells ESR 99 H (0-20) mm/hr Sodium (132-148) mmol/L Potassium (3.6-5.2) mmol/L Chloride (98-107) mmol/L Carbon Dioxide (22-30) mmol/L Anion Gap (10-20) BUN (7-17) mg/dL Creatinine (0.7-1.2) mg/dL Est GFR ( Amer) Est GFR (Non-Af Amer) POC Glucose (mg/dL) > 500 H* (65-110) mg/dL Random Glucose (65-105) mg/dL Calcium (8.6-10.4) mg/dl Phosphorus (2.5-4.5) mg/dL Magnesium (1.6-2.3) mg/dL Total Bilirubin (0.2-1.3) mg/dL AST (14-36) U/L ALT (9-52) U/L Alkaline Phosphatase (38-126) U/L C-Reactive Protein 155.70 H (0.0-9.9) mg/L Total Protein (6.3-8.3) g/dL Albumin (3.5-5.0) g/dL Globulin (2.2-3.9) gm/dL Albumin/Globulin Ratio (1.0-2.1) CSF Glucose (40-70) mg/dL CSF Total Protein (12-60) mg/dL Random Vancomycin ug/mL 11/06/18 11/06/18 11/06/18 Range/Units 06:19 06:19 06:19 WBC 10.0 (4.8-10.8) K/uL RBC 2.99 L (3.80-5.20) Mil/uL Hgb 8.4 L (11.0-16.0) g/dL Hct 27.5 L (34.0-47.0) % MCV 91.9 (81.0-99.0) fL MCH 28.2 (27.0-31.0) pg MCHC 30.7 L (33.0-37.0) g/dL RDW 19.1 H (11.5-14.5) % Plt Count 128 L D (130-400) K/uL MPV 12.0 H (7.2-11.7) fL Neut % (Auto) 90.4 H (50.0-75.0) % Lymph % (Auto) 6.0 L (20.0-40.0) % Towns % (Auto) 2.5 (0.0-10.0) % Eos % (Auto) 0.7 (0.0-4.0) % Baso % (Auto) 0.4 (0.0-2.0) % Neut # (Auto) 9.1 H (1.8-7.0) K/uL Lymph # (Auto) 0.6 L (1.0-4.3) K/uL Towns # (Auto) 0.2 (0.0-0.8) K/uL Eos # (Auto) 0.1 (0.0-0.7) K/uL Baso # (Auto) 0.0 (0.0-0.2) K/uL Neutrophils % (Manual) 91 H (50-75) % Lymphocytes % (Manual) 6 L (20-40) % Monocytes % (Manual) 3 (0-10) % Platelet Estimate Slightly decreased L (NORMAL) Large Platelets Present Giant Platelets Present Polychromasia Slight Hypochromasia (manual) Moderate Poikilocytosis (manual Slight Anisocytosis (manual) Slight Microcytosis (manual) Slight Macrocytosis (manual) Slight Ovalocytes Slight Welcome Cells Slight ESR (0-20) mm/hr Sodium 138 (132-148) mmol/L Potassium 4.6 (3.6-5.2) mmol/L Chloride 106 (98-107) mmol/L Carbon Dioxide 17 L (22-30) mmol/L Anion Gap 20 (10-20) BUN 56 H (7-17) mg/dL Creatinine 6.6 H (0.7-1.2) mg/dL Est GFR ( Amer) 8 Est GFR (Non-Af Amer) 6 POC Glucose (mg/dL) (65-110) mg/dL Random Glucose 561 H* D (65-105) mg/dL Calcium 7.7 L (8.6-10.4) mg/dl Phosphorus 2.6 (2.5-4.5) mg/dL Magnesium 2.0 (1.6-2.3) mg/dL Total Bilirubin 0.6 (0.2-1.3) mg/dL AST 94 H D (14-36) U/L ALT 35 (9-52) U/L Alkaline Phosphatase 176 H D (38-126) U/L C-Reactive Protein (0.0-9.9) mg/L Total Protein 5.7 L (6.3-8.3) g/dL Albumin 2.9 L (3.5-5.0) g/dL Globulin 2.9 (2.2-3.9) gm/dL Albumin/Globulin Ratio 1.0 (1.0-2.1) CSF Glucose (40-70) mg/dL CSF Total Protein (12-60) mg/dL Random Vancomycin 19.1 ug/mL 11/06/18 11/05/18 11/05/18 Range/Units 05:31 23:49 18:05 WBC (4.8-10.8) K/uL RBC (3.80-5.20) Mil/uL Hgb (11.0-16.0) g/dL Hct (34.0-47.0) % MCV (81.0-99.0) fL MCH (27.0-31.0) pg MCHC (33.0-37.0) g/dL RDW (11.5-14.5) % Plt Count (130-400) K/uL MPV (7.2-11.7) fL Neut % (Auto) (50.0-75.0) % Lymph % (Auto) (20.0-40.0) % Towns % (Auto) (0.0-10.0) % Eos % (Auto) (0.0-4.0) % Baso % (Auto) (0.0-2.0) % Neut # (Auto) (1.8-7.0) K/uL Lymph # (Auto) (1.0-4.3) K/uL Towns # (Auto) (0.0-0.8) K/uL Eos # (Auto) (0.0-0.7) K/uL Baso # (Auto) (0.0-0.2) K/uL Neutrophils % (Manual) (50-75) % Lymphocytes % (Manual) (20-40) % Monocytes % (Manual) (0-10) % Platelet Estimate (NORMAL) Large Platelets Giant Platelets Polychromasia Hypochromasia (manual) Poikilocytosis (manual Anisocytosis (manual) Microcytosis (manual) Macrocytosis (manual) Ovalocytes Rubens Cells ESR (0-20) mm/hr Sodium (132-148) mmol/L Potassium (3.6-5.2) mmol/L Chloride (98-107) mmol/L Carbon Dioxide (22-30) mmol/L Anion Gap (10-20) BUN (7-17) mg/dL Creatinine (0.7-1.2) mg/dL Est GFR ( Amer) Est GFR (Non-Af Amer) POC Glucose (mg/dL) > 500 H* > 500 H* 355 H (65-110) mg/dL Random Glucose (65-105) mg/dL Calcium (8.6-10.4) mg/dl Phosphorus (2.5-4.5) mg/dL Magnesium (1.6-2.3) mg/dL Total Bilirubin (0.2-1.3) mg/dL AST (14-36) U/L ALT (9-52) U/L Alkaline Phosphatase (38-126) U/L C-Reactive Protein (0.0-9.9) mg/L Total Protein (6.3-8.3) g/dL Albumin (3.5-5.0) g/dL Globulin (2.2-3.9) gm/dL Albumin/Globulin Ratio (1.0-2.1) CSF Glucose (40-70) mg/dL CSF Total Protein (12-60) mg/dL Random Vancomycin ug/mL 11/05/18 Range/Units 10:54 WBC (4.8-10.8) K/uL RBC (3.80-5.20) Mil/uL Hgb (11.0-16.0) g/dL Hct (34.0-47.0) % MCV (81.0-99.0) fL MCH (27.0-31.0) pg MCHC (33.0-37.0) g/dL RDW (11.5-14.5) % Plt Count (130-400) K/uL MPV (7.2-11.7) fL Neut % (Auto) (50.0-75.0) % Lymph % (Auto) (20.0-40.0) % Towns % (Auto) (0.0-10.0) % Eos % (Auto) (0.0-4.0) % Baso % (Auto) (0.0-2.0) % Neut # (Auto) (1.8-7.0) K/uL Lymph # (Auto) (1.0-4.3) K/uL Towns # (Auto) (0.0-0.8) K/uL Eos # (Auto) (0.0-0.7) K/uL Baso # (Auto) (0.0-0.2) K/uL Neutrophils % (Manual) (50-75) % Lymphocytes % (Manual) (20-40) % Monocytes % (Manual) (0-10) % Platelet Estimate (NORMAL) Large Platelets Giant Platelets Polychromasia Hypochromasia (manual) Poikilocytosis (manual Anisocytosis (manual) Microcytosis (manual) Macrocytosis (manual) Ovalocytes Welcome Cells ESR (0-20) mm/hr Sodium (132-148) mmol/L Potassium (3.6-5.2) mmol/L Chloride (98-107) mmol/L Carbon Dioxide (22-30) mmol/L Anion Gap (10-20) BUN (7-17) mg/dL Creatinine (0.7-1.2) mg/dL Est GFR ( Amer) Est GFR (Non-Af Amer) POC Glucose (mg/dL) (65-110) mg/dL Random Glucose (65-105) mg/dL Calcium (8.6-10.4) mg/dl Phosphorus (2.5-4.5) mg/dL Magnesium (1.6-2.3) mg/dL Total Bilirubin (0.2-1.3) mg/dL AST (14-36) U/L ALT (9-52) U/L Alkaline Phosphatase (38-126) U/L C-Reactive Protein (0.0-9.9) mg/L Total Protein (6.3-8.3) g/dL Albumin (3.5-5.0) g/dL Globulin (2.2-3.9) gm/dL Albumin/Globulin Ratio (1.0-2.1) CSF Glucose 129 H* (40-70) mg/dL CSF Total Protein 56.0 (12-60) mg/dL Random Vancomycin ug/mL Laboratory Results - last 24 hr 11/05/18 11/05/18 11/05/18 10:54 18:05 23:49 WBC RBC Hgb Hct MCV MCH MCHC RDW Plt Count MPV Neut % (Auto) Lymph % (Auto) Towns % (Auto) Eos % (Auto) Baso % (Auto) Neut # (Auto) Lymph # (Auto) Towns # (Auto) Eos # (Auto) Baso # (Auto) Neutrophils % (Manual) Lymphocytes % (Manual) Monocytes % (Manual) Platelet Estimate Large Platelets Giant Platelets Polychromasia Hypochromasia (manual) Poikilocytosis (manual Anisocytosis (manual) Microcytosis (manual) Macrocytosis (manual) Ovalocytes Welcome Cells ESR Sodium Potassium Chloride Carbon Dioxide Anion Gap BUN Creatinine Est GFR ( Amer) Est GFR (Non-Af Amer) POC Glucose (mg/dL) 355 H > 500 H* Random Glucose Calcium Phosphorus Magnesium Total Bilirubin AST ALT Alkaline Phosphatase C-Reactive Protein Total Protein Albumin Globulin Albumin/Globulin Ratio CSF Glucose 129 H* CSF Total Protein 56.0 Random Vancomycin 11/06/18 11/06/18 11/06/18 05:31 06:19 06:19 WBC 10.0 RBC 2.99 L Hgb 8.4 L Hct 27.5 L MCV 91.9 MCH 28.2 MCHC 30.7 L RDW 19.1 H Plt Count 128 L D MPV 12.0 H Neut % (Auto) 90.4 H Lymph % (Auto) 6.0 L Towns % (Auto) 2.5 Eos % (Auto) 0.7 Baso % (Auto) 0.4 Neut # (Auto) 9.1 H Lymph # (Auto) 0.6 L Towns # (Auto) 0.2 Eos # (Auto) 0.1 Baso # (Auto) 0.0 Neutrophils % (Manual) 91 H Lymphocytes % (Manual) 6 L Monocytes % (Manual) 3 Platelet Estimate Slightly decreased L Large Platelets Present Giant Platelets Present Polychromasia Slight Hypochromasia (manual) Moderate Poikilocytosis (manual Slight Anisocytosis (manual) Slight Microcytosis (manual) Slight Macrocytosis (manual) Slight Ovalocytes Slight Welcome Cells Slight ESR Sodium Potassium Chloride Carbon Dioxide Anion Gap BUN Creatinine Est GFR ( Amer) Est GFR (Non-Af Amer) POC Glucose (mg/dL) > 500 H* Random Glucose Calcium Phosphorus Magnesium Total Bilirubin AST ALT Alkaline Phosphatase C-Reactive Protein Total Protein Albumin Globulin Albumin/Globulin Ratio CSF Glucose CSF Total Protein Random Vancomycin 19.1 11/06/18 11/06/18 11/06/18 06:19 10:16 10:16 WBC RBC Hgb Hct MCV MCH MCHC RDW Plt Count MPV Neut % (Auto) Lymph % (Auto) Towns % (Auto) Eos % (Auto) Baso % (Auto) Neut # (Auto) Lymph # (Auto) Towns # (Auto) Eos # (Auto) Baso # (Auto) Neutrophils % (Manual) Lymphocytes % (Manual) Monocytes % (Manual) Platelet Estimate Large Platelets Giant Platelets Polychromasia Hypochromasia (manual) Poikilocytosis (manual Anisocytosis (manual) Microcytosis (manual) Macrocytosis (manual) Ovalocytes Rubens Cells ESR 99 H Sodium 138 Potassium 4.6 Chloride 106 Carbon Dioxide 17 L Anion Gap 20 BUN 56 H Creatinine 6.6 H Est GFR ( Amer) 8 Est GFR (Non-Af Amer) 6 POC Glucose (mg/dL) Random Glucose 561 H* D Calcium 7.7 L Phosphorus 2.6 Magnesium 2.0 Total Bilirubin 0.6 AST 94 H D ALT 35 Alkaline Phosphatase 176 H D C-Reactive Protein 155.70 H Total Protein 5.7 L Albumin 2.9 L Globulin 2.9 Albumin/Globulin Ratio 1.0 CSF Glucose CSF Total Protein Random Vancomycin 11/06/18 11:41 WBC RBC Hgb Hct MCV MCH MCHC RDW Plt Count MPV Neut % (Auto) Lymph % (Auto) Towns % (Auto) Eos % (Auto) Baso % (Auto) Neut # (Auto) Lymph # (Auto) Towns # (Auto) Eos # (Auto) Baso # (Auto) Neutrophils % (Manual) Lymphocytes % (Manual) Monocytes % (Manual) Platelet Estimate Large Platelets Giant Platelets Polychromasia Hypochromasia (manual) Poikilocytosis (manual Anisocytosis (manual) Microcytosis (manual) Macrocytosis (manual) Ovalocytes Welcome Cells ESR Sodium Potassium Chloride Carbon Dioxide Anion Gap BUN Creatinine Est GFR ( Amer) Est GFR (Non-Af Amer) POC Glucose (mg/dL) > 500 H* Random Glucose Calcium Phosphorus Magnesium Total Bilirubin AST ALT Alkaline Phosphatase C-Reactive Protein Total Protein Albumin Globulin Albumin/Globulin Ratio CSF Glucose CSF Total Protein Random Vancomycin Attending/Attestation - Attestation I have personally seen and examined this patient.: Yes I have fully participated in the care of the patient.: Yes I have reviewed all pertinent clinical information: Yes Notes (Text): 11/06/18 17:55 Patient seen and examined in the intensive care unit. No change in mental status Status post LP Repeat CAT scan of the abdomen and pelvis noted Surgical follow-up Seen by wound nurse for decubiti Continue antibiotics Continue vent support and PEG feeding <Dyllan Patton - Last Filed: 11/06/18 21:28> CCU Subjective - Physician Review Subjective (Free Text): PGY-1 ICU progress note for Dr Ríos service Patient seen and examined at bedside today. Patient remains intubated. ROS unobtainable. CCU Objective - Vital Signs / Intake & Output Vital Signs (Last 4 hours): Vital Signs Temp Pulse Resp BP BP Pulse Ox 11/06/18 13:47 139/77 11/06/18 13:46 83 23 100 11/06/18 13:45 97.4 F L 15 106/57 L 100 11/06/18 13:39 87 18 106/57 L 100 11/06/18 13:30 133/71 11/06/18 13:05 89 20 133/71 100 11/06/18 13:00 95 H 14 140/63 99 11/06/18 12:48 89 23 140/63 100 11/06/18 12:30 146/75 11/06/18 12:11 88 15 146/75 99 11/06/18 12:00 86 20 141/92 H 100 11/06/18 11:57 97.2 F L 11/06/18 11:51 87 18 141/72 100 Intake and Output (Last 8hrs): Intake & Output 11/06/18 11/06/18 11/06/18 06:59 14:59 22:59 Intake Total 580 780 220 Output Total 200 Balance 380 780 220 Weight 233 lb 2 oz Intake: Intake, IV Amount 100 100 Right Hand 100 100 Tube Feeding 480 480 120 Other 100 200 Output: Urine 0 Urine, Voided 0 Stool 200 Other: # Voids Urine, Voided 0 0 # Bowel Movements 1 - Physical Exam Head: Positive for: Atraumatic, Normocephalic Extroacular Muscles: Positive for: EOMI (dropping eyelid left) Conjunctiva: Positive for: Normal Mouth: Positive for: Dry Neck: Positive for: Other (tracheostomy in place with vent, trialysis cath on left side neck area ) Respiratory/Chest: Positive for: Decreased Breath Sounds, Other (intubated ). Negative for: Respiratory Distress, Accessory Muscle Use, Tachypneic Cardiovascular: Positive for: Regular Rate and Rhythm, Normal S1, S2 Abdomen: Positive for: Normal Bowel Sounds, Other (PEG tube in place ). Negative for: Tenderness, Distention, Rebound, Guarding Upper Extremity: Positive for: Normal Inspection. Negative for: Cyanosis, Edema Lower Extremity: Positive for: Normal Inspection. Negative for: Edema Neurological: Negative for: GCS=15, CN II-XII Intact, Speech Normal Skin: Positive for: Warm, Dry, Normal Color Psychiatric: Negative for: Alert, Oriented x 3, Normal Insight, Normal Concentration - Medications Active Medications: Active Medications Generic Name Dose Route Start Last Admin Trade Name Freq PRN Reason Stop Dose Admin Acetaminophen 650 mg 10/25/18 03:30 11/05/18 09:09 Tylenol 650mg/20.3ml Solution Ud PO 650 mg Q6 PRN Administration pain+fever Aspirin 81 mg 10/08/18 10:00 11/06/18 09:34 Aspirin Chewable PO 81 mg DAILY JOCELYN Administration Dextrose 0 ml 11/01/18 12:14 Dextrose 50% Inj IV STAT PRN Hypoglycemia Protocol Protocol Dextrose 0 gm 11/01/18 12:14 Glutose 15 PO ONCE PRN Hypoglycemia Protocol Protocol Epoetin Dedrick 10,000 unit 11/01/18 14:00 11/06/18 12:32 Procrit IV 10,000 unit TTS JOCELYN Administration Glucagon 0 mg 11/01/18 12:14 Glucagen Diagnostic Kit IM STAT PRN Hypoglycemia Protocol Protocol Heparin Sodium (Porcine) 1,000 units 11/01/18 16:15 11/01/18 15:30 Heparin IVP 1,000 units ONCE JOCELYN Administration Meropenem 500 mg/ Sodium 100 mls @ 100 mls/hr 10/30/18 15:30 11/06/18 14:13 Chloride IVPB 100 mls/hr DAILY JOCELYN Administration Protocol Vancomycin HCl 500 mg/ Sodium 100 mls @ 100 mls/hr 10/31/18 09:00 10/31/18 12:44 Chloride IVPB Not Given MWF JOCELYN Protocol Valproate Sodium 500 mg/ 105 mls @ 50 mls/hr 11/01/18 22:00 11/06/18 14:12 Sodium Chloride IVPB 50 mls/hr Q12 JOCELYN Administration Micafungin Sodium 100 mg/ 100 mls @ 100 mls/hr 11/04/18 19:00 11/05/18 18:01 Sodium Chloride IV 100 mls/hr Q24H JOCELYN Administration Protocol Insulin Aspart 0 unit 10/31/18 12:00 11/06/18 12:31 Novolog SC 12 u Q6H JOCELYN Administration Protocol Insulin Detemir 40 unit 10/28/18 22:00 11/05/18 22:04 Levemir SC 40 u HS JOCELYN Administration Insulin Detemir 30 unit 11/02/18 10:00 11/06/18 09:36 Levemir SC 30 u DAILY JOCELYN Administration Levetiracetam 1,000 mg 10/28/18 18:00 11/06/18 09:35 Keppra PO 1,000 mg BID JOCELYN Administration Levothyroxine Sodium 50 mcg 09/29/18 08:00 11/06/18 05:40 Synthroid PO 50 mcg 0600 JOCELYN Administration Methylprednisolone 20 mg 11/06/18 09:07 11/06/18 09:35 Solu-Medrol IVP 20 mg Q12 JOCELYN Administration Metronidazole 500 mg 10/30/18 14:15 11/06/18 14:14 Flagyl PO 500 mg Q8 JOCELYN Administration Protocol Pantoprazole Sodium 40 mg 10/09/18 06:00 11/06/18 05:41 Protonix Susp PO 40 mg 0600 JOCELYN Administration Rosuvastatin Calcium 10 mg 09/30/18 22:00 11/05/18 22:02 Crestor PO 10 mg HS JOCELYN Administration Saccharomyces Boulardii 250 mg 11/01/18 10:00 11/06/18 14:14 Florastor PO 250 mg TID JOCELYN Administration - Patient Studies Lab Studies: Microbiology Studies 11/03/18 06:21 Gram Stain - Final Tracheostomy Site Wound Culture - Final Romina Albicans 11/05/18 10:54 Gram Stain - Final Cerebral Spinal Fluid CSF Culture - Preliminary NO GROWTH AFTER 24 HOURS Lab Studies 11/06/18 11/06/18 11/06/18 Range/Units 11:41 10:16 10:16 WBC (4.8-10.8) K/uL RBC (3.80-5.20) Mil/uL Hgb (11.0-16.0) g/dL Hct (34.0-47.0) % MCV (81.0-99.0) fL MCH (27.0-31.0) pg MCHC (33.0-37.0) g/dL RDW (11.5-14.5) % Plt Count (130-400) K/uL MPV (7.2-11.7) fL Neut % (Auto) (50.0-75.0) % Lymph % (Auto) (20.0-40.0) % Towns % (Auto) (0.0-10.0) % Eos % (Auto) (0.0-4.0) % Baso % (Auto) (0.0-2.0) % Neut # (Auto) (1.8-7.0) K/uL Lymph # (Auto) (1.0-4.3) K/uL Towns # (Auto) (0.0-0.8) K/uL Eos # (Auto) (0.0-0.7) K/uL Baso # (Auto) (0.0-0.2) K/uL Neutrophils % (Manual) (50-75) % Lymphocytes % (Manual) (20-40) % Monocytes % (Manual) (0-10) % Platelet Estimate (NORMAL) Large Platelets Giant Platelets Polychromasia Hypochromasia (manual) Poikilocytosis (manual Anisocytosis (manual) Microcytosis (manual) Macrocytosis (manual) Ovalocytes Welcome Cells ESR 99 H (0-20) mm/hr Sodium (132-148) mmol/L Potassium (3.6-5.2) mmol/L Chloride (98-107) mmol/L Carbon Dioxide (22-30) mmol/L Anion Gap (10-20) BUN (7-17) mg/dL Creatinine (0.7-1.2) mg/dL Est GFR ( Amer) Est GFR (Non-Af Amer) POC Glucose (mg/dL) > 500 H* (65-110) mg/dL Random Glucose (65-105) mg/dL Calcium (8.6-10.4) mg/dl Phosphorus (2.5-4.5) mg/dL Magnesium (1.6-2.3) mg/dL Total Bilirubin (0.2-1.3) mg/dL AST (14-36) U/L ALT (9-52) U/L Alkaline Phosphatase (38-126) U/L C-Reactive Protein 155.70 H (0.0-9.9) mg/L Total Protein (6.3-8.3) g/dL Albumin (3.5-5.0) g/dL Globulin (2.2-3.9) gm/dL Albumin/Globulin Ratio (1.0-2.1) CSF Glucose (40-70) mg/dL CSF Total Protein (12-60) mg/dL Random Vancomycin ug/mL 11/06/18 11/06/18 11/06/18 Range/Units 06:19 06:19 06:19 WBC 10.0 (4.8-10.8) K/uL RBC 2.99 L (3.80-5.20) Mil/uL Hgb 8.4 L (11.0-16.0) g/dL Hct 27.5 L (34.0-47.0) % MCV 91.9 (81.0-99.0) fL MCH 28.2 (27.0-31.0) pg MCHC 30.7 L (33.0-37.0) g/dL RDW 19.1 H (11.5-14.5) % Plt Count 128 L D (130-400) K/uL MPV 12.0 H (7.2-11.7) fL Neut % (Auto) 90.4 H (50.0-75.0) % Lymph % (Auto) 6.0 L (20.0-40.0) % Towns % (Auto) 2.5 (0.0-10.0) % Eos % (Auto) 0.7 (0.0-4.0) % Baso % (Auto) 0.4 (0.0-2.0) % Neut # (Auto) 9.1 H (1.8-7.0) K/uL Lymph # (Auto) 0.6 L (1.0-4.3) K/uL Towns # (Auto) 0.2 (0.0-0.8) K/uL Eos # (Auto) 0.1 (0.0-0.7) K/uL Baso # (Auto) 0.0 (0.0-0.2) K/uL Neutrophils % (Manual) 91 H (50-75) % Lymphocytes % (Manual) 6 L (20-40) % Monocytes % (Manual) 3 (0-10) % Platelet Estimate Slightly decreased L (NORMAL) Large Platelets Present Giant Platelets Present Polychromasia Slight Hypochromasia (manual) Moderate Poikilocytosis (manual Slight Anisocytosis (manual) Slight Microcytosis (manual) Slight Macrocytosis (manual) Slight Ovalocytes Slight Rubens Cells Slight ESR (0-20) mm/hr Sodium 138 (132-148) mmol/L Potassium 4.6 (3.6-5.2) mmol/L Chloride 106 (98-107) mmol/L Carbon Dioxide 17 L (22-30) mmol/L Anion Gap 20 (10-20) BUN 56 H (7-17) mg/dL Creatinine 6.6 H (0.7-1.2) mg/dL Est GFR ( Amer) 8 Est GFR (Non-Af Amer) 6 POC Glucose (mg/dL) (65-110) mg/dL Random Glucose 561 H* D (65-105) mg/dL Calcium 7.7 L (8.6-10.4) mg/dl Phosphorus 2.6 (2.5-4.5) mg/dL Magnesium 2.0 (1.6-2.3) mg/dL Total Bilirubin 0.6 (0.2-1.3) mg/dL AST 94 H D (14-36) U/L ALT 35 (9-52) U/L Alkaline Phosphatase 176 H D (38-126) U/L C-Reactive Protein (0.0-9.9) mg/L Total Protein 5.7 L (6.3-8.3) g/dL Albumin 2.9 L (3.5-5.0) g/dL Globulin 2.9 (2.2-3.9) gm/dL Albumin/Globulin Ratio 1.0 (1.0-2.1) CSF Glucose (40-70) mg/dL CSF Total Protein (12-60) mg/dL Random Vancomycin 19.1 ug/mL 11/06/18 11/05/18 11/05/18 Range/Units 05:31 23:49 18:05 WBC (4.8-10.8) K/uL RBC (3.80-5.20) Mil/uL Hgb (11.0-16.0) g/dL Hct (34.0-47.0) % MCV (81.0-99.0) fL MCH (27.0-31.0) pg MCHC (33.0-37.0) g/dL RDW (11.5-14.5) % Plt Count (130-400) K/uL MPV (7.2-11.7) fL Neut % (Auto) (50.0-75.0) % Lymph % (Auto) (20.0-40.0) % Towns % (Auto) (0.0-10.0) % Eos % (Auto) (0.0-4.0) % Baso % (Auto) (0.0-2.0) % Neut # (Auto) (1.8-7.0) K/uL Lymph # (Auto) (1.0-4.3) K/uL Towns # (Auto) (0.0-0.8) K/uL Eos # (Auto) (0.0-0.7) K/uL Baso # (Auto) (0.0-0.2) K/uL Neutrophils % (Manual) (50-75) % Lymphocytes % (Manual) (20-40) % Monocytes % (Manual) (0-10) % Platelet Estimate (NORMAL) Large Platelets Giant Platelets Polychromasia Hypochromasia (manual) Poikilocytosis (manual Anisocytosis (manual) Microcytosis (manual) Macrocytosis (manual) Ovalocytes Rubens Cells ESR (0-20) mm/hr Sodium (132-148) mmol/L Potassium (3.6-5.2) mmol/L Chloride (98-107) mmol/L Carbon Dioxide (22-30) mmol/L Anion Gap (10-20) BUN (7-17) mg/dL Creatinine (0.7-1.2) mg/dL Est GFR ( Amer) Est GFR (Non-Af Amer) POC Glucose (mg/dL) > 500 H* > 500 H* 355 H (65-110) mg/dL Random Glucose (65-105) mg/dL Calcium (8.6-10.4) mg/dl Phosphorus (2.5-4.5) mg/dL Magnesium (1.6-2.3) mg/dL Total Bilirubin (0.2-1.3) mg/dL AST (14-36) U/L ALT (9-52) U/L Alkaline Phosphatase (38-126) U/L C-Reactive Protein (0.0-9.9) mg/L Total Protein (6.3-8.3) g/dL Albumin (3.5-5.0) g/dL Globulin (2.2-3.9) gm/dL Albumin/Globulin Ratio (1.0-2.1) CSF Glucose (40-70) mg/dL CSF Total Protein (12-60) mg/dL Random Vancomycin ug/mL 11/05/18 Range/Units 10:54 WBC (4.8-10.8) K/uL RBC (3.80-5.20) Mil/uL Hgb (11.0-16.0) g/dL Hct (34.0-47.0) % MCV (81.0-99.0) fL MCH (27.0-31.0) pg MCHC (33.0-37.0) g/dL RDW (11.5-14.5) % Plt Count (130-400) K/uL MPV (7.2-11.7) fL Neut % (Auto) (50.0-75.0) % Lymph % (Auto) (20.0-40.0) % Towns % (Auto) (0.0-10.0) % Eos % (Auto) (0.0-4.0) % Baso % (Auto) (0.0-2.0) % Neut # (Auto) (1.8-7.0) K/uL Lymph # (Auto) (1.0-4.3) K/uL Towns # (Auto) (0.0-0.8) K/uL Eos # (Auto) (0.0-0.7) K/uL Baso # (Auto) (0.0-0.2) K/uL Neutrophils % (Manual) (50-75) % Lymphocytes % (Manual) (20-40) % Monocytes % (Manual) (0-10) % Platelet Estimate (NORMAL) Large Platelets Giant Platelets Polychromasia Hypochromasia (manual) Poikilocytosis (manual Anisocytosis (manual) Microcytosis (manual) Macrocytosis (manual) Ovalocytes Welcome Cells ESR (0-20) mm/hr Sodium (132-148) mmol/L Potassium (3.6-5.2) mmol/L Chloride (98-107) mmol/L Carbon Dioxide (22-30) mmol/L Anion Gap (10-20) BUN (7-17) mg/dL Creatinine (0.7-1.2) mg/dL Est GFR ( Amer) Est GFR (Non-Af Amer) POC Glucose (mg/dL) (65-110) mg/dL Random Glucose (65-105) mg/dL Calcium (8.6-10.4) mg/dl Phosphorus (2.5-4.5) mg/dL Magnesium (1.6-2.3) mg/dL Total Bilirubin (0.2-1.3) mg/dL AST (14-36) U/L ALT (9-52) U/L Alkaline Phosphatase (38-126) U/L C-Reactive Protein (0.0-9.9) mg/L Total Protein (6.3-8.3) g/dL Albumin (3.5-5.0) g/dL Globulin (2.2-3.9) gm/dL Albumin/Globulin Ratio (1.0-2.1) CSF Glucose 129 H* (40-70) mg/dL CSF Total Protein 56.0 (12-60) mg/dL Random Vancomycin ug/mL Laboratory Results - last 24 hr 11/05/18 11/05/18 11/05/18 10:54 18:05 23:49 WBC RBC Hgb Hct MCV MCH MCHC RDW Plt Count MPV Neut % (Auto) Lymph % (Auto) Towns % (Auto) Eos % (Auto) Baso % (Auto) Neut # (Auto) Lymph # (Auto) Towns # (Auto) Eos # (Auto) Baso # (Auto) Neutrophils % (Manual) Lymphocytes % (Manual) Monocytes % (Manual) Platelet Estimate Large Platelets Giant Platelets Polychromasia Hypochromasia (manual) Poikilocytosis (manual Anisocytosis (manual) Microcytosis (manual) Macrocytosis (manual) Ovalocytes Welcome Cells ESR Sodium Potassium Chloride Carbon Dioxide Anion Gap BUN Creatinine Est GFR ( Amer) Est GFR (Non-Af Amer) POC Glucose (mg/dL) 355 H > 500 H* Random Glucose Calcium Phosphorus Magnesium Total Bilirubin AST ALT Alkaline Phosphatase C-Reactive Protein Total Protein Albumin Globulin Albumin/Globulin Ratio CSF Glucose 129 H* CSF Total Protein 56.0 Random Vancomycin 11/06/18 11/06/18 11/06/18 05:31 06:19 06:19 WBC 10.0 RBC 2.99 L Hgb 8.4 L Hct 27.5 L MCV 91.9 MCH 28.2 MCHC 30.7 L RDW 19.1 H Plt Count 128 L D MPV 12.0 H Neut % (Auto) 90.4 H Lymph % (Auto) 6.0 L Towns % (Auto) 2.5 Eos % (Auto) 0.7 Baso % (Auto) 0.4 Neut # (Auto) 9.1 H Lymph # (Auto) 0.6 L Towns # (Auto) 0.2 Eos # (Auto) 0.1 Baso # (Auto) 0.0 Neutrophils % (Manual) 91 H Lymphocytes % (Manual) 6 L Monocytes % (Manual) 3 Platelet Estimate Slightly decreased L Large Platelets Present Giant Platelets Present Polychromasia Slight Hypochromasia (manual) Moderate Poikilocytosis (manual Slight Anisocytosis (manual) Slight Microcytosis (manual) Slight Macrocytosis (manual) Slight Ovalocytes Slight Rubens Cells Slight ESR Sodium Potassium Chloride Carbon Dioxide Anion Gap BUN Creatinine Est GFR ( Amer) Est GFR (Non-Af Amer) POC Glucose (mg/dL) > 500 H* Random Glucose Calcium Phosphorus Magnesium Total Bilirubin AST ALT Alkaline Phosphatase C-Reactive Protein Total Protein Albumin Globulin Albumin/Globulin Ratio CSF Glucose CSF Total Protein Random Vancomycin 19.1 11/06/18 11/06/18 11/06/18 06:19 10:16 10:16 WBC RBC Hgb Hct MCV MCH MCHC RDW Plt Count MPV Neut % (Auto) Lymph % (Auto) Towns % (Auto) Eos % (Auto) Baso % (Auto) Neut # (Auto) Lymph # (Auto) Towns # (Auto) Eos # (Auto) Baso # (Auto) Neutrophils % (Manual) Lymphocytes % (Manual) Monocytes % (Manual) Platelet Estimate Large Platelets Giant Platelets Polychromasia Hypochromasia (manual) Poikilocytosis (manual Anisocytosis (manual) Microcytosis (manual) Macrocytosis (manual) Ovalocytes Rubens Cells ESR 99 H Sodium 138 Potassium 4.6 Chloride 106 Carbon Dioxide 17 L Anion Gap 20 BUN 56 H Creatinine 6.6 H Est GFR ( Amer) 8 Est GFR (Non-Af Amer) 6 POC Glucose (mg/dL) Random Glucose 561 H* D Calcium 7.7 L Phosphorus 2.6 Magnesium 2.0 Total Bilirubin 0.6 AST 94 H D ALT 35 Alkaline Phosphatase 176 H D C-Reactive Protein 155.70 H Total Protein 5.7 L Albumin 2.9 L Globulin 2.9 Albumin/Globulin Ratio 1.0 CSF Glucose CSF Total Protein Random Vancomycin 11/06/18 11:41 WBC RBC Hgb Hct MCV MCH MCHC RDW Plt Count MPV Neut % (Auto) Lymph % (Auto) Towns % (Auto) Eos % (Auto) Baso % (Auto) Neut # (Auto) Lymph # (Auto) Towns # (Auto) Eos # (Auto) Baso # (Auto) Neutrophils % (Manual) Lymphocytes % (Manual) Monocytes % (Manual) Platelet Estimate Large Platelets Giant Platelets Polychromasia Hypochromasia (manual) Poikilocytosis (manual Anisocytosis (manual) Microcytosis (manual) Macrocytosis (manual) Ovalocytes Rubens Cells ESR Sodium Potassium Chloride Carbon Dioxide Anion Gap BUN Creatinine Est GFR ( Amer) Est GFR (Non-Af Amer) POC Glucose (mg/dL) > 500 H* Random Glucose Calcium Phosphorus Magnesium Total Bilirubin AST ALT Alkaline Phosphatase C-Reactive Protein Total Protein Albumin Globulin Albumin/Globulin Ratio CSF Glucose CSF Total Protein Random Vancomycin Radiology Impressions: Radiology Impressions Abdomen/Pelvis CT 11/05/18 10:18 IMPRESSION: Limited evaluation without IV contrast administration Suspicious for distal rectal and anal wall thickening. Fluid collection anterior to the anus. The possibility of abscess formation should be considered. Fingerstick Blood Sugar Results: 500 Critical Care Progress Note - Ventilator Checklist Head of Bed 30 Degrees: Yes Daily Sedation Vacation: Yes Daily Assessment of Readiness to Wean: Yes Daily Spontaneous Breathing Trial: Yes PUD Prophalyxis: Yes DVT Prophylaxis: Yes Oral Care with Chlorhexidine Gluconate {CHG}: Yes - Vent Settings MODE:: PRVC TIDAL VOLUME:: 450 RESP RATE:: 18 FIO2:: 50 PEEP:: 5 - Extremities/Vascular Does the Patient have a Central Venous Catheter?: Yes Insertion Site: Internal Jugular Vein Does the Patient need a Central Venous Catheter?: Yes Does the Patient have a Rodriguez Catheter?: Yes Does the Patient need a Rodriguez Catheter?: Yes - Restraints Justification for Restraints: High risk for self extubation, High risk for removing IV access Assessment/Plan - Assessment and Plan (Free Text) Plan: Patient is a 72 year old female with PMHx of CKD, CHF, CAD s/p stents, pituitary adenoma a/p resection, DM, who was admitted for respiratory and cardiac arrest s/p permacath placement and AVF on 10/05; possible AMS due to anoxic brain injury, now on HD MWF, tracheostomy on 10/18/17, PEG tube placement 10/23/18. Patient became hypotensive overnight and upgraded to ICU. Permacath removed by surgery on 10/30. A trialysis catheter inserted but dialysis reported the line was not function. A IJ central line inserted for dialysis access. Pt had a LP yesterday (11/05) to r/o meningitis. Pt continues to have diarrhea, even after changing tube feeds. Neuro - Intubated - continue Keppra and valproate as per neuro - Lumbar puncture 11/05: WBC 1.0, Glucose 129, RBC 0 - f/u EEG results - f/u Neuro recs Cardiac - Hypotension resolved, off Levophed - Echo 11/01: Left Ventricle systolic function is normal; EF is 55-60%; hypertensive heart disease; diastolic dysfunction; no AR, MR, pulmonary hypertension; trace to mild tricuspid regurgitation. - continue to monitor vitals - continue Crestor 10mg, ASA 81mg Pulm - Intubated, current vent settings PRVC 14/450/5/35 - Pressure support trials - CXR 11/05: No active disease GI - PEG tube in place - Tube feeds Osmolite 1.2 with goal of 60ml/hr - pt continues to have diarrhea, f/u dietary recs regarding tube feeds - rectal tube in place - protonix ppx - CT abdomen/pelvis 10/30: fluid and gas filled distended rectum versus perire ctal abscess. Evidence of anastomotic bowel suture material and/or rectal tube/packing material. - f/u surgery recs regarding possible perirectal abscess - not planning on surgical interverntion at this time Renal - Dialysis today - HD schedule: TTHS - Left IJ catheter inserted 11/01 for dialysis - continue Procrit Endo - Hx of Hypothyroidism, continue levothyroxine 50mg - Hx of DM, continue Levemir 40 units HS and Levemir 30 units daily - ISS increased to high - Blood sugar remains elevated, >500 - Decreased Solu-Medrol from 40mg Q12 to 20mg Q12 Heme - H/H 8.4/27.5 - monitor CBC ID - Afebrile - WBC 10.0 today, continue to monitor - continue Abx: Meropenem, Flagyl - Vanc trough 19.1 today, Vanco on hold - 10/30 Tracheostomy site, sputum cx positive: Romina Albicans - continue Micafungin 100mg - f/u ID recs Rheum - ESR (+) 99 - CRP (+) 155.70 - f/u JERRY PPx - Protonix for GI ppx - DVT ppx: SCDs, Heparin SC - Tylenol PRN for fever - Hypoglycemic protocol PRN Plan discussed with Dr. Michoacano Patton, PGY-1 - Date & Time Date: 11/06/18 Time: 09:00
[2018-11-06] MEDS: Micafungin 100 MG in Sodium Chloride 0.9% 100 ML IV SCH (18:19)
[2018-11-06] MEDS: metroNIDAZOLE IV 500 mg/100 ml 500 MG/100 ML BAG IVPB SCH (21:30)
--- NOTE | 2018-11-06 22:55 | CP.PCM.PN ---
Subjective - Date & Time of Evaluation Date of Evaluation: 11/06/18 Time of Evaluation: 15:10 - Subjective Subjective: Patient seen and evaluated No new cardiac events noted On Ventilator Physical Examination - Head Exam Head Exam: ATRAUMATIC, NORMAL INSPECTION - Eye Exam Eye Exam: EOMI, Normal appearance, PERRL. absent: Periorbital tenderness Pupil Exam: NORMAL ACCOMODATION - ENT Exam ENT Exam: Mucous Membranes Moist, Normal Oropharynx - Respiratory Exam Respiratory Exam: Clear to Ausculation Bilateral. absent: Prolonged Expiratory Phase, Respiratory Distress - Cardiovascular Exam Cardiovascular Exam: REGULAR RHYTHM, +S1, +S2. absent: Rubs - GI/Abdominal Exam GI & Abdominal Exam: Soft, Normal Bowel Sounds. absent: Hyperactive Bowel Sounds - Extremities Exam Extremities Exam: absent: Pedal Edema - Back Exam Back Exam: NORMAL INSPECTION. absent: CVA tenderness (R), paraspinal tenderness - Neurological Exam Neurological Exam: Altered - Psychiatric Exam Psychiatric exam: Agitated, Normal Affect, Normal Mood - Skin Skin Exam: Dry Assessment and Plan - Assessment and Plan (Free Text) Assessment: 72 year old female with past medical history of CAD, CHF, HTN, HLD, pituitary adenoma, is being seen s/p respiratory arrest during AV fistula placement surgery. s/p permacath on 10-11-18; possible AMS due to anoxic brain injury, now on HD MWF, tracheostomy done on 10/18/17, planning for PEG placement by GI today. Plan: Respiratory failure - Currently intubated and sedated. Management per primary care team - Completed hypothermic protocol -Bedside PEG placement completed today. Medications: Levetiracetam 420mls/hrIVPB Q12H [facility] MRSA in trach -Continue Cefepime 1gm ivpb daily -Continue Vancomycin 1gm ivpb mwf Anoxic brain injury -Pending repeat MRI at [facility]. Patient remains agigtated and unable to go for imaging at this time. HTN -Lopressor 12.5mg NG BID MIR HLD -Continue Rosuvastatin 10mg PO HS MIR CAD -Continue Aspirin 81mg PO Daily [facility]IR DM -Levemir 30UNIT sc q12 mir Hypothyroidism -Continue Synthroid 50mcg PO 0600 M[facility] CKD on HD - S/p right permacath placed on 10/11 -Procrit 10,000 unit IV MWF ppx -Protonix -Heparin Objective - Vital Signs/Intake and Output Vital Signs (last 24 hours): Temp Pulse Resp BP Pulse Ox 98.9 F 75 18 129/67 100 11/06/18 20:00 11/06/18 22:00 11/06/18 22:00 11/06/18 21:56 11/06/18 22:00 Intake and Output: 11/06/18 11/07/18 18:59 06:59 Intake Total 1050 300 Output Total 100 Balance 1050 200 - Medications Medications: Current Medications Acetaminophen (Tylenol 650mg/20.3ml Solution Ud) 650 mg PO Q6 PRN PRN Reason: pain+fever Last Admin: 11/05/18 09:09 Dose: 650 mg Aspirin (Aspirin Chewable) 81 mg PO DAILY [facility] Last Admin: 11/06/18 09:34 Dose: 81 mg Dextrose (Dextrose 50% Inj) 0 ml IV STAT PRN; Protocol PRN Reason: Hypoglycemia Protocol Dextrose (Glutose 15) 0 gm PO ONCE PRN; Protocol PRN Reason: Hypoglycemia Protocol Epoetin Dedrick (Procrit) 10,000 unit IV TTS [facility] Last Admin: 11/06/18 12:32 Dose: 10,000 unit Glucagon (Glucagen Diagnostic Kit) 0 mg IM STAT PRN; Protocol PRN Reason: Hypoglycemia Protocol Heparin Sodium (Porcine) (Heparin) 1,000 units IVP ONCE [facility] Last Admin: 11/01/18 15:30 Dose: 1,000 units Meropenem 500 mg/ Sodium (Chloride) 100 mls @ 100 mls/hr IVPB DAILY [facility]; Protocol Last Admin: 11/06/18 14:13 Dose: 100 mls/hr Vancomycin HCl 500 mg/ Sodium (Chloride) 100 mls @ 100 mls/hr IVPB MWF [facility]; Protocol Last Admin: 10/31/18 12:44 Dose: Not Given Valproate Sodium 500 mg/ (Sodium Chloride) 105 mls @ 50 mls/hr IVPB Q12 [facility] Last Admin: 11/06/18 21:53 Dose: 50 mls/hr Micafungin Sodium 100 mg/ (Sodium Chloride) 100 mls @ 100 mls/hr IV Q24H [facility]; Protocol Last Admin: 11/06/18 18:19 Dose: 100 mls/hr Metronidazole (Flagyl) 500 mg in 100 mls @ 100 mls/hr IVPB Q8H [facility]; Protocol Insulin Aspart (Novolog) 0 unit SC Q6H [facility]; Protocol Last Admin: 11/06/18 18:22 Dose: 12 u Insulin Detemir (Levemir) 40 unit SC [facility] Last Admin: 11/06/18 21:52 Dose: 40 u Insulin Detemir (Levemir) 30 unit SC DAILY [facility] Last Admin: 11/06/18 09:36 Dose: 30 u Levetiracetam (Keppra) 1,000 mg PO BID [facility] Last Admin: 11/06/18 18:18 Dose: 1,000 mg Levothyroxine Sodium (Synthroid) 50 mcg PO 0600 [facility] Last Admin: 11/06/18 05:40 Dose: 50 mcg Methylprednisolone (Solu-Medrol) 20 mg IVP Q12 [facility] Last Admin: 11/06/18 21:50 Dose: 20 mg Metronidazole (Flagyl) 500 mg PO Q8 [facility]; Protocol Last Admin: 11/06/18 21:51 Dose: 500 mg Pantoprazole Sodium (Protonix Susp) 40 mg PO 0600 [facility] Last Admin: 11/06/18 05:41 Dose: 40 mg Rosuvastatin Calcium (Crestor) 10 mg PO HS [facility] Last Admin: 11/06/18 21:52 Dose: 10 mg Saccharomyces Boulardii (Florastor) 250 mg PO TID [facility] Last Admin: 11/06/18 18:19 Dose: 250 mg - Labs Labs: 11/06/18 06:19 11/06/18 06:19 PT 14.3 SECONDS (9.7-12.2) H 11/05/18 05:52 INR 1.3 11/05/18 05:52 APTT 43 SECONDS (21-34) H 11/05/18 05:52
[2018-11-07] MEDS: (Novolog) Insulin Aspart, Recombinant 100 u/ml 10 ml vial SC SCH ×3 (00:11→13:26)
--- NOTE | 2018-11-07 00:12 | PN ---
DATE: 11/06/2018 INFECTIOUS DISEASE FOLLOWUP SUBJECTIVE: The patient is afebrile today. She had CAT scans yesterday which showed rectal abscess. She has been having decubitus ulcer. She remains anoxic, on trach vent. Her family is at the bedside, they were calling Dr. Yost. PHYSICAL EXAMINATION: VITAL SIGNS: Heart rate is 93, blood pressure is 175/80, respirations are 8, on the trach vent. HEENT: Head is atraumatic. NECK: Supple. Trach site appears unremarkable. LUNGS: Clear. HEART: S1, S2. Regular. ABDOMEN: Soft. She has a PEG tube present. SKIN: Sacral area, she has a necrotic decubiti. Wound care nurse is following. Perirectal area appeared very red and she had a rectal tube. EXTREMITIES: Remain with foot protectors at this time. PLAN: So at this time, we will continue with meropenem, Flagyl, her vancomycin random level was high and she is also on Mycamine at this time, as it could be also fungal in this area, which is always moist because of diarrhea and it could be related to her liquid diet. We will follow. Sara Barrios MD
[2018-11-07] MEDS: Levothyroxine 50 MCG TAB PO SCH (06:02)
[2018-11-07] MEDS: metroNIDAZOLE IV 500 mg/100 ml 500 MG/100 ML BAG IVPB SCH ×3 (06:03→22:08)
[2018-11-07] MEDS: Pantoprazole 40 mg Susp UD PO SCH (06:06)
[2018-11-07 06:13] LABS: BASO % 0.2 % (0.0-2.0); EOS % 0.1 % (0.0-4.0); HEMOGLOBIN 8.7 g/dL (11.0-16.0); LYMPH # 0.7 K/uL (1.0-4.3); LYMPH % 5.8 % (20.0-40.0); MEAN CELL VOLUME 90.1 fL (81.0-99.0); MEAN CORPUSCULAR HEMOGLOBIN 27.8 pg (27.0-31.0); MEAN CORPUSCULAR HGB CONC 30.8 g/dL (33.0-37.0); MEAN PLATELET VOLUME 11.4 fL (7.2-11.7); MONO # 0.7 K/uL (0.0-0.8); MONO % 5.7 % (0.0-10.0); NEUT # 10.6 K/uL (1.8-7.0); NEUT % 88.2 % (50.0-75.0); NRBC % 1.4 % (0.0-2.0); PLATELET COUNT 127 K/uL (130-400); RBC 3.12 Mil/uL (3.80-5.20); RED CELL DISTRIBUTION WIDTH 19.3 % (11.5-14.5); WHITE BLOOD COUNT 12.1 K/uL (4.8-10.8)
[2018-11-07 06:29] LABS: ALB/GLOB RATIO 1.1 (1.0-2.1); CALCIUM 8.6 mg/dl (8.6-10.4)
[2018-11-07] MEDS ORDERED: Potassium Chloride 20 mEq/15 ml LIQ UD PO ONE (07:59)
[2018-11-07 09:07] LABS: ANISOCYTOSIS SLIGHT; BANDS 6 % (0-2); HYPOCHROMIC SLIGHT; LYMPHOCYTE 6 % (20-40); MONOCYTE 7 % (0-10); NEUTROPHIL 81 % (50-75); NUCLEATED RED BLOOD CELL 1 % (0-0); PLATELET ESTIMATE SLIGHTLY DECREASED (NORMAL); POIKILOCYTOSIS SLIGHT; POLYCHROMIC SLIGHT; TARGET CELLS SLIGHT; TEARDROP CELLS SLIGHT; TOTAL CELLS COUNTED 100
[2018-11-07 09:08] LABS: MICROCYTOSIS SLIGHT
[2018-11-07 09:09] LABS: BURR CELLS SLIGHT
[2018-11-07] MEDS: Saccharomyces Boulardi 250 mg Cap PO SCH ×3 (09:44→17:33)
[2018-11-07] MEDS: levETIRAcetam 100 mg/ml (5ml) Oral Syringe PO SCH ×2 (09:44→17:33)
[2018-11-07] MEDS: Insulin Detemir 100 units/ml Vial (Levemir) SC SCH (09:45)
[2018-11-07] MEDS: MethylPREDNISolone 40 mg Vial IVP SCH ×2 (09:45→22:07)
[2018-11-07] MEDS: Meropenem 500 MG in Sodium Chloride 0.9% 100 ML IVPB SCH (09:58)
[2018-11-07] MEDS ORDERED: Insulin Human Regular 100 UNIT in Sodium Chloride 0.9% 99 ML IV SCH ×2 (11:00→12:00)
[2018-11-07] MEDS ORDERED: Dextrose 50% SYRINGE Inj (50 ml) IV PRN (11:00)
[2018-11-07] MEDS ORDERED: Glucagon Recombinant 1 mg Inj IM PRN (11:00)
--- NOTE | 2018-11-07 11:04 | PN ---
DATE: 11/07/2018 TIME OF EVALUATION: 6:55 a.m. NEUROLOGICAL PROBLEM: Anoxic encephalopathy with nonconvulsive seizures. PHYSICAL EXAMINATION: VITAL SIGNS: Blood pressure 172/77, pulse rate 88, temperature 99.2 rectal. The patient is obtunded moving left more than right upper extremities. Eyes are closed. Does not respond verbally. non-noxious stimuli, appropriate response noted. Some spontaneous movement noted in her lower extremities as well. Deep tendon reflexes are areflexic. Plantars are upgoing on her left side. Her workup; continuous video monitoring for 72 hours is not showing any seizure activities except triphasic waves consistent with metabolic encephalopathy with anoxic encephalopathy setup. Her CSF findings not consistent with any infectious source as well. Her CSF findings not consistent with any inflammatory process. The patient's condition has been extensively discussed with her daughter as well. At this point, the patient does need two antiepileptic drugs for her seizures. Depakote was discontinued. We will let her continue with the Keppra for now. Correct the metabolic abnormal findings. Proper hydration, keep the mean arterial pressure around 100 and to continue the supportive care. At this point, the patient does not show any evidence or clinical supportive findings consistent with autoimmune encephalitis. At this point, I decided to defer giving treatment for her encephalitis. The patient's condition will be discussed with Dr. Orlando. Blu Yost MD
--- NOTE | 2018-11-07 13:23 | CP.PCM.PN ---
Subjective - Date & Time of Evaluation Date of Evaluation: 11/07/18 Time of Evaluation: 13:20 - Subjective Subjective: s/p dialysis 2/5- UF 1000ml on vent, poorly responsive On PEG feeds, insulin drip labs reviewed Objective - Vital Signs/Intake and Output Vital Signs (last 24 hours): Temp Pulse Resp BP Pulse Ox 99.5 F 72 11 L 155/69 H 99 11/07/18 08:00 11/07/18 12:00 11/07/18 12:00 11/07/18 11:56 11/07/18 12:00 Intake and Output: 11/07/18 11/07/18 06:59 18:59 Intake Total 400 120 Output Total 200 Balance 200 120 - Medications Medications: Current Medications Acetaminophen (Tylenol 650mg/20.3ml Solution Ud) 650 mg PO Q6 PRN PRN Reason: pain+fever Last Admin: 11/05/18 09:09 Dose: 650 mg Amlodipine Besylate (Norvasc) 5 mg PO DAILY [facility] Last Admin: 11/07/18 11:31 Dose: 5 mg Aspirin (Aspirin Chewable) 81 mg PO DAILY [facility] Last Admin: 11/07/18 09:44 Dose: 81 mg Dextrose (Dextrose 50% Inj) 0 ml IV STAT PRN; Protocol PRN Reason: Hypoglycemia Protocol Dextrose (Glutose 15) 0 gm PO ONCE PRN; Protocol PRN Reason: Hypoglycemia Protocol Dextrose (Dextrose 50% Inj) 0 ml IV STAT PRN; Protocol PRN Reason: Hypoglycemia Protocol Dextrose (Glutose 15) 0 gm PO ONCE PRN; Protocol PRN Reason: Hypoglycemia Protocol Epoetin Dedrick (Procrit) 10,000 unit IV TTS [facility] Last Admin: 11/06/18 12:32 Dose: 10,000 unit Glucagon (Glucagen Diagnostic Kit) 0 mg IM STAT PRN; Protocol PRN Reason: Hypoglycemia Protocol Glucagon (Glucagen Diagnostic Kit) 0 mg IM STAT PRN; Protocol PRN Reason: Hypoglycemia Protocol Meropenem 500 mg/ Sodium (Chloride) 100 mls @ 100 mls/hr IVPB DAILY [facility]; Protocol Last Admin: 11/07/18 09:58 Dose: 100 mls/hr Micafungin Sodium 100 mg/ (Sodium Chloride) 100 mls @ 100 mls/hr IV Q24H [facility]; Protocol Last Admin: 11/06/18 18:19 Dose: 100 mls/hr Metronidazole (Flagyl) 500 mg in 100 mls @ 100 mls/hr IVPB Q8H [facility]; Protocol Last Admin: 11/07/18 12:29 Dose: 100 mls/hr Dextrose (Dextrose 5% In Water 1000 Ml) 1,000 mls @ 0 mls/hr IV .Q0M PRN; Protocol PRN Reason: Hypoglycemia Protocol Vancomycin HCl 500 mg/ Sodium (Chloride) 100 mls @ 100 mls/hr IVPB TTS [facility]; Protocol Insulin Human Regular 100 unit (/ Sodium Chloride) 100 mls @ 2 mls/hr IV .Q24H [facility]; Protocol Last Admin: 11/07/18 12:11 Dose: 2 mls/hr Insulin Aspart (Novolog) 0 unit SC Q6H [facility]; Protocol Last Admin: 11/07/18 06:02 Dose: 10 u Insulin Detemir (Levemir) 40 unit SC HS [facility] Last Admin: 11/06/18 21:52 Dose: 40 u Insulin Detemir (Levemir) 30 unit SC DAILY [facility] Last Admin: 11/07/18 09:45 Dose: 30 u Levetiracetam (Keppra) 1,000 mg PO BID [facility] Last Admin: 11/07/18 09:44 Dose: 1,000 mg Levothyroxine Sodium (Synthroid) 50 mcg PO 0600 [facility] Last Admin: 11/07/18 06:02 Dose: 50 mcg Methylprednisolone (Solu-Medrol) 20 mg IVP Q12 [facility] Last Admin: 11/07/18 09:45 Dose: 20 mg Pantoprazole Sodium (Protonix Susp) 40 mg PO 0600 [facility] Last Admin: 11/07/18 06:06 Dose: 40 mg Rosuvastatin Calcium (Crestor) 10 mg PO HS [facility] Last Admin: 11/06/18 21:52 Dose: 10 mg Saccharomyces Boulardii (Florastor) 250 mg PO TID [facility] Last Admin: 11/07/18 09:44 Dose: 250 mg - Labs Labs: 11/07/18 06:08 11/07/18 06:07 PT 14.3 SECONDS (9.7-12.2) H 11/05/18 05:52 INR 1.3 11/05/18 05:52 APTT 43 SECONDS (21-34) H 11/05/18 05:52 - Constitutional Appears: No Acute Distress, Confused, Chronically Ill - Head Exam Head Exam: ATRAUMATIC, NORMAL INSPECTION - Neck Exam Neck Exam: Normal Inspection. absent: Tenderness - Respiratory Exam Respiratory Exam: Rhonchi, NORMAL BREATHING PATTERN - Cardiovascular Exam Cardiovascular Exam: REGULAR RHYTHM, +S1 - GI/Abdominal Exam GI & Abdominal Exam: Soft. absent: Tenderness - Neurological Exam Neurological Exam: Altered - Skin Skin Exam: Dry, Warm Assessment and Plan (1) ESRD (end stage renal disease) Status: Acute (2) Diabetic nephropathy associated with type 2 diabetes mellitus Status: Acute (3) CAD (coronary artery disease) Status: Acute (4) HTN (hypertension) Status: Acute (5) Metabolic encephalopathy Status: Acute - Assessment and Plan (Free Text) Plan: Supportive care- mental status not improving repeat dialysis in AM recheck iron stores
[2018-11-07] MEDS: Insulin Human Regular 100 UNIT in Sodium Chloride 0.9% 99 ML IV PRN (13:38)
--- NOTE | 2018-11-07 15:51 | CP.CCUPN ---
<Eliseo Ríos S - Last Filed: 11/07/18 17:01> CCU Subjective - Physician Review Critical Care Time Spent (in minutes): 40 CCU Objective - Vital Signs / Intake & Output Vital Signs (Last 4 hours): Vital Signs Temp Pulse Resp BP Pulse Ox 11/07/18 16:00 98.8 F 71 12 100 11/07/18 15:56 72 9 L 178/79 H 100 11/07/18 15:00 74 14 99 11/07/18 14:56 77 14 159/88 H 100 11/07/18 14:00 65 16 99 11/07/18 13:56 67 13 143/69 99 Intake and Output (Last 8hrs): Intake & Output 11/07/18 11/07/18 11/07/18 06:59 14:59 22:59 Intake Total 100 240 30 Output Total 100 Balance 0 240 30 Weight 233 lb 6 oz Intake: IV 30 Intake, IV Amount 100 200 Right Hand 100 200 Tube Feeding 0 40 Output: Stool 100 - Medications Active Medications: Active Medications Generic Name Dose Route Start Last Admin Trade Name Freq PRN Reason Stop Dose Admin Acetaminophen 650 mg 10/25/18 03:30 11/05/18 09:09 Tylenol 650mg/20.3ml Solution Ud PO 650 mg Q6 PRN Administration pain+fever Amlodipine Besylate 5 mg 11/07/18 11:00 11/07/18 11:31 Norvasc PO 5 mg DAILY JOCELYN Administration Aspirin 81 mg 10/08/18 10:00 11/07/18 09:44 Aspirin Chewable PO 81 mg DAILY JOCELYN Administration Dextrose 0 ml 11/01/18 12:14 Dextrose 50% Inj IV STAT PRN Hypoglycemia Protocol Protocol Dextrose 0 gm 11/01/18 12:14 Glutose 15 PO ONCE PRN Hypoglycemia Protocol Protocol Dextrose 0 ml 11/07/18 11:00 Dextrose 50% Inj IV STAT PRN Hypoglycemia Protocol Protocol Dextrose 0 gm 11/07/18 11:00 Glutose 15 PO ONCE PRN Hypoglycemia Protocol Protocol Epoetin Dedrick 10,000 unit 11/01/18 14:00 11/06/18 12:32 Procrit IV 10,000 unit TTS JOCELYN Administration Glucagon 0 mg 11/01/18 12:14 Glucagen Diagnostic Kit IM STAT PRN Hypoglycemia Protocol Protocol Glucagon 0 mg 11/07/18 11:00 Glucagen Diagnostic Kit IM STAT PRN Hypoglycemia Protocol Protocol Meropenem 500 mg/ Sodium 100 mls @ 100 mls/hr 10/30/18 15:30 11/07/18 09:58 Chloride IVPB 100 mls/hr DAILY JOCELYN Administration Protocol Micafungin Sodium 100 mg/ 100 mls @ 100 mls/hr 11/04/18 19:00 11/06/18 18:19 Sodium Chloride IV 100 mls/hr Q24H JOCELYN Administration Protocol Metronidazole 500 mg in 100 mls @ 100 mls/hr 11/06/18 21:30 11/07/18 12:29 Flagyl IVPB 100 mls/hr Q8H JOCELYN Administration Protocol Dextrose 1,000 mls @ 0 mls/hr 11/07/18 11:00 Dextrose 5% In Water 1000 Ml IV .Q0M PRN Hypoglycemia Protocol Protocol Per Protocol Vancomycin HCl 500 mg/ Sodium 100 mls @ 100 mls/hr 11/08/18 10:00 Chloride IVPB TTS JOCELYN Protocol Insulin Human Regular 100 unit 100 mls @ 2 mls/hr 11/07/18 13:30 11/07/18 16:16 / Sodium Chloride IV 8 u/hr .Q24H PRN 8 mls/hr Titration Protocol Insulin Aspart 0 unit 10/31/18 12:00 11/07/18 13:26 Novolog SC Not Given Q6H JOCELYN Protocol Insulin Detemir 40 unit 10/28/18 22:00 11/06/18 21:52 Levemir SC 40 u HS JOCELYN Administration Insulin Detemir 30 unit 11/02/18 10:00 11/07/18 09:45 Levemir SC 30 u DAILY JOCELYN Administration Levetiracetam 1,000 mg 10/28/18 18:00 11/07/18 09:44 Keppra PO 1,000 mg BID JOCELYN Administration Levothyroxine Sodium 50 mcg 09/29/18 08:00 11/07/18 06:02 Synthroid PO 50 mcg 0600 JOCELYN Administration Methylprednisolone 20 mg 11/06/18 09:07 11/07/18 09:45 Solu-Medrol IVP 20 mg Q12 JOCELYN Administration Pantoprazole Sodium 40 mg 10/09/18 06:00 11/07/18 06:06 Protonix Susp PO 40 mg 0600 JOCELYN Administration Rosuvastatin Calcium 10 mg 09/30/18 22:00 11/06/18 21:52 Crestor PO 10 mg HS JOCELYN Administration Saccharomyces Fatumai 250 mg 11/01/18 10:00 11/07/18 13:53 Florastor PO 250 mg TID JOCELYN Administration - Patient Studies Lab Studies: Microbiology Studies 11/05/18 10:54 Gram Stain - Final Cerebral Spinal Fluid CSF Culture - Preliminary NO GROWTH AFTER 2 DAYS 11/05/18 10:54 Mycobacterial Culture - Preliminary Other: Please Indicate Lab Studies 11/07/18 11/07/18 11/07/18 Range/Units 16:02 15:16 15:01 WBC (4.8-10.8) K/uL RBC (3.80-5.20) Mil/uL Hgb (11.0-16.0) g/dL Hct (34.0-47.0) % MCV (81.0-99.0) fL MCH (27.0-31.0) pg MCHC (33.0-37.0) g/dL RDW (11.5-14.5) % Plt Count (130-400) K/uL MPV (7.2-11.7) fL Neut % (Auto) (50.0-75.0) % Lymph % (Auto) (20.0-40.0) % [place] % (Auto) (0.0-10.0) % Eos % (Auto) (0.0-4.0) % Baso % (Auto) (0.0-2.0) % Neut # (Auto) (1.8-7.0) K/uL Lymph # (Auto) (1.0-4.3) K/uL [place] # (Auto) (0.0-0.8) K/uL Eos # (Auto) (0.0-0.7) K/uL Baso # (Auto) (0.0-0.2) K/uL Neutrophils % (Manual) (50-75) % Band Neutrophils % (0-2) % Lymphocytes % (Manual) (20-40) % Monocytes % (Manual) (0-10) % Nucleated RBC % (0-0) % Platelet Estimate (NORMAL) Polychromasia Hypochromasia (manual) Poikilocytosis (manual Anisocytosis (manual) Microcytosis (manual) Macrocytosis (manual) Target Cells Tear Drop Cells [place] Cells Sodium (132-148) mmol/L Potassium (3.6-5.2) mmol/L Chloride (98-107) mmol/L Carbon Dioxide (22-30) mmol/L Anion Gap (10-20) BUN (7-17) mg/dL Creatinine (0.7-1.2) mg/dL Est GFR ( Amer) Est GFR (Non-Af Amer) POC Glucose (mg/dL) 353 H 350 H 325 H (65-110) mg/dL Random Glucose (65-105) mg/dL Calcium (8.6-10.4) mg/dl Phosphorus (2.5-4.5) mg/dL Magnesium (1.6-2.3) mg/dL % Saturation (20-55) Ferritin ng/mL Total Bilirubin (0.2-1.3) mg/dL AST (14-36) U/L ALT (9-52) U/L Alkaline Phosphatase (38-126) U/L Total Protein (6.3-8.3) g/dL Albumin (3.5-5.0) g/dL Globulin (2.2-3.9) gm/dL Albumin/Globulin Ratio (1.0-2.1) JERRY Screen (Negative) 11/07/18 11/07/18 11/07/18 Range/Units 14:24 14:24 14:10 WBC (4.8-10.8) K/uL RBC (3.80-5.20) Mil/uL Hgb (11.0-16.0) g/dL Hct (34.0-47.0) % MCV (81.0-99.0) fL MCH (27.0-31.0) pg MCHC (33.0-37.0) g/dL RDW (11.5-14.5) % Plt Count (130-400) K/uL MPV (7.2-11.7) fL Neut % (Auto) (50.0-75.0) % Lymph % (Auto) (20.0-40.0) % [place] % (Auto) (0.0-10.0) % Eos % (Auto) (0.0-4.0) % Baso % (Auto) (0.0-2.0) % Neut # (Auto) (1.8-7.0) K/uL Lymph # (Auto) (1.0-4.3) K/uL [place] # (Auto) (0.0-0.8) K/uL Eos # (Auto) (0.0-0.7) K/uL Baso # (Auto) (0.0-0.2) K/uL Neutrophils % (Manual) (50-75) % Band Neutrophils % (0-2) % Lymphocytes % (Manual) (20-40) % Monocytes % (Manual) (0-10) % Nucleated RBC % (0-0) % Platelet Estimate (NORMAL) Polychromasia Hypochromasia (manual) Poikilocytosis (manual Anisocytosis (manual) Microcytosis (manual) Macrocytosis (manual) Target Cells Tear Drop Cells [place] Cells Sodium (132-148) mmol/L Potassium (3.6-5.2) mmol/L Chloride (98-107) mmol/L Carbon Dioxide (22-30) mmol/L Anion Gap (10-20) BUN (7-17) mg/dL Creatinine (0.7-1.2) mg/dL Est GFR ( Amer) Est GFR (Non-Af Amer) POC Glucose (mg/dL) 311 H (65-110) mg/dL Random Glucose (65-105) mg/dL Calcium (8.6-10.4) mg/dl Phosphorus (2.5-4.5) mg/dL Magnesium (1.6-2.3) mg/dL % Saturation 46 (20-55) Ferritin 3990.0 ng/mL Total Bilirubin (0.2-1.3) mg/dL AST (14-36) U/L ALT (9-52) U/L Alkaline Phosphatase (38-126) U/L Total Protein (6.3-8.3) g/dL Albumin (3.5-5.0) g/dL Globulin (2.2-3.9) gm/dL Albumin/Globulin Ratio (1.0-2.1) JERRY Screen (Negative) 11/07/18 11/07/18 11/07/18 Range/Units 13:06 12:00 06:08 WBC 12.1 H (4.8-10.8) K/uL RBC 3.12 L (3.80-5.20) Mil/uL Hgb 8.7 L (11.0-16.0) g/dL Hct 28.1 L (34.0-47.0) % MCV 90.1 (81.0-99.0) fL MCH 27.8 (27.0-31.0) pg MCHC 30.8 L (33.0-37.0) g/dL RDW 19.3 H (11.5-14.5) % Plt Count 127 L (130-400) K/uL MPV 11.4 (7.2-11.7) fL Neut % (Auto) 88.2 H (50.0-75.0) % Lymph % (Auto) 5.8 L (20.0-40.0) % [place] % (Auto) 5.7 (0.0-10.0) % Eos % (Auto) 0.1 (0.0-4.0) % Baso % (Auto) 0.2 (0.0-2.0) % Neut # (Auto) 10.6 H (1.8-7.0) K/uL Lymph # (Auto) 0.7 L (1.0-4.3) K/uL [place] # (Auto) 0.7 (0.0-0.8) K/uL Eos # (Auto) 0.0 (0.0-0.7) K/uL Baso # (Auto) 0.0 (0.0-0.2) K/uL Neutrophils % (Manual) 81 H (50-75) % Band Neutrophils % 6 H (0-2) % Lymphocytes % (Manual) 6 L (20-40) % Monocytes % (Manual) 7 (0-10) % Nucleated RBC % 1 H (0-0) % Platelet Estimate Slightly decreased L (NORMAL) Polychromasia Slight Hypochromasia (manual) Slight Poikilocytosis (manual Slight Anisocytosis (manual) Slight Microcytosis (manual) Slight Macrocytosis (manual) Slight Target Cells Slight Tear Drop Cells Slight [place] Cells Slight Sodium (132-148) mmol/L Potassium (3.6-5.2) mmol/L Chloride (98-107) mmol/L Carbon Dioxide (22-30) mmol/L Anion Gap (10-20) BUN (7-17) mg/dL Creatinine (0.7-1.2) mg/dL Est GFR ( Amer) Est GFR (Non-Af Amer) POC Glucose (mg/dL) 308 H 322 H (65-110) mg/dL Random Glucose (65-105) mg/dL Calcium (8.6-10.4) mg/dl Phosphorus (2.5-4.5) mg/dL Magnesium (1.6-2.3) mg/dL % Saturation (20-55) Ferritin ng/mL Total Bilirubin (0.2-1.3) mg/dL AST (14-36) U/L ALT (9-52) U/L Alkaline Phosphatase (38-126) U/L Total Protein (6.3-8.3) g/dL Albumin (3.5-5.0) g/dL Globulin (2.2-3.9) gm/dL Albumin/Globulin Ratio (1.0-2.1) JERRY Screen (Negative) 11/07/18 11/07/18 11/06/18 Range/Units 06:07 04:57 23:47 WBC (4.8-10.8) K/uL RBC (3.80-5.20) Mil/uL Hgb (11.0-16.0) g/dL Hct (34.0-47.0) % MCV (81.0-99.0) fL MCH (27.0-31.0) pg MCHC (33.0-37.0) g/dL RDW (11.5-14.5) % Plt Count (130-400) K/uL MPV (7.2-11.7) fL Neut % (Auto) (50.0-75.0) % Lymph % (Auto) (20.0-40.0) % [place] % (Auto) (0.0-10.0) % Eos % (Auto) (0.0-4.0) % Baso % (Auto) (0.0-2.0) % Neut # (Auto) (1.8-7.0) K/uL Lymph # (Auto) (1.0-4.3) K/uL [place] # (Auto) (0.0-0.8) K/uL Eos # (Auto) (0.0-0.7) K/uL Baso # (Auto) (0.0-0.2) K/uL Neutrophils % (Manual) (50-75) % Band Neutrophils % (0-2) % Lymphocytes % (Manual) (20-40) % Monocytes % (Manual) (0-10) % Nucleated RBC % (0-0) % Platelet Estimate (NORMAL) Polychromasia Hypochromasia (manual) Poikilocytosis (manual Anisocytosis (manual) Microcytosis (manual) Macrocytosis (manual) Target Cells Tear Drop Cells [place] Cells Sodium 135 (132-148) mmol/L Potassium 3.4 L (3.6-5.2) mmol/L Chloride 101 (98-107) mmol/L Carbon Dioxide 20 L (22-30) mmol/L Anion Gap 17 (10-20) BUN 45 H (7-17) mg/dL Creatinine 4.2 H (0.7-1.2) mg/dL Est GFR ( Amer) 13 Est GFR (Non-Af Amer) 10 POC Glucose (mg/dL) 389 H > 500 H* (65-110) mg/dL Random Glucose 374 H D (65-105) mg/dL Calcium 8.6 (8.6-10.4) mg/dl Phosphorus 2.6 (2.5-4.5) mg/dL Magnesium 2.0 (1.6-2.3) mg/dL % Saturation (20-55) Ferritin ng/mL Total Bilirubin 0.3 (0.2-1.3) mg/dL AST 53 H D (14-36) U/L ALT 33 (9-52) U/L Alkaline Phosphatase 145 H (38-126) U/L Total Protein 5.6 L (6.3-8.3) g/dL Albumin 3.0 L (3.5-5.0) g/dL Globulin 2.6 (2.2-3.9) gm/dL Albumin/Globulin Ratio 1.1 (1.0-2.1) JERRY Screen (Negative) 11/06/18 11/06/18 Range/Units 18:20 10:16 WBC (4.8-10.8) K/uL RBC (3.80-5.20) Mil/uL Hgb (11.0-16.0) g/dL Hct (34.0-47.0) % MCV (81.0-99.0) fL MCH (27.0-31.0) pg MCHC (33.0-37.0) g/dL RDW (11.5-14.5) % Plt Count (130-400) K/uL MPV (7.2-11.7) fL Neut % (Auto) (50.0-75.0) % Lymph % (Auto) (20.0-40.0) % [place] % (Auto) (0.0-10.0) % Eos % (Auto) (0.0-4.0) % Baso % (Auto) (0.0-2.0) % Neut # (Auto) (1.8-7.0) K/uL Lymph # (Auto) (1.0-4.3) K/uL [place] # (Auto) (0.0-0.8) K/uL Eos # (Auto) (0.0-0.7) K/uL Baso # (Auto) (0.0-0.2) K/uL Neutrophils % (Manual) (50-75) % Band Neutrophils % (0-2) % Lymphocytes % (Manual) (20-40) % Monocytes % (Manual) (0-10) % Nucleated RBC % (0-0) % Platelet Estimate (NORMAL) Polychromasia Hypochromasia (manual) Poikilocytosis (manual Anisocytosis (manual) Microcytosis (manual) Macrocytosis (manual) Target Cells Tear Drop Cells [place] Cells Sodium (132-148) mmol/L Potassium (3.6-5.2) mmol/L Chloride (98-107) mmol/L Carbon Dioxide (22-30) mmol/L Anion Gap (10-20) BUN (7-17) mg/dL Creatinine (0.7-1.2) mg/dL Est GFR ( Amer) Est GFR (Non-Af Amer) POC Glucose (mg/dL) > 500 H* (65-110) mg/dL Random Glucose (65-105) mg/dL Calcium (8.6-10.4) mg/dl Phosphorus (2.5-4.5) mg/dL Magnesium (1.6-2.3) mg/dL % Saturation (20-55) Ferritin ng/mL Total Bilirubin (0.2-1.3) mg/dL AST (14-36) U/L ALT (9-52) U/L Alkaline Phosphatase (38-126) U/L Total Protein (6.3-8.3) g/dL Albumin (3.5-5.0) g/dL Globulin (2.2-3.9) gm/dL Albumin/Globulin Ratio (1.0-2.1) JERRY Screen Negative (Negative) Laboratory Results - last 24 hr 11/06/18 11/06/18 11/06/18 10:16 18:20 23:47 WBC RBC Hgb Hct MCV MCH MCHC RDW Plt Count MPV Neut % (Auto) Lymph % (Auto) [place] % (Auto) Eos % (Auto) Baso % (Auto) Neut # (Auto) Lymph # (Auto) [place] # (Auto) Eos # (Auto) Baso # (Auto) Neutrophils % (Manual) Band Neutrophils % Lymphocytes % (Manual) Monocytes % (Manual) Nucleated RBC % Platelet Estimate Polychromasia Hypochromasia (manual) Poikilocytosis (manual Anisocytosis (manual) Microcytosis (manual) Macrocytosis (manual) Target Cells Tear Drop Cells [place] Cells Sodium Potassium Chloride Carbon Dioxide Anion Gap BUN Creatinine Est GFR ( Amer) Est GFR (Non-Af Amer) POC Glucose (mg/dL) > 500 H* > 500 H* Random Glucose Calcium Phosphorus Magnesium % Saturation Ferritin Total Bilirubin AST ALT Alkaline Phosphatase Total Protein Albumin Globulin Albumin/Globulin Ratio JERRY Screen Negative 11/07/18 11/07/18 11/07/18 04:57 06:07 06:08 WBC 12.1 H RBC 3.12 L Hgb 8.7 L Hct 28.1 L MCV 90.1 MCH 27.8 MCHC 30.8 L RDW 19.3 H Plt Count 127 L MPV 11.4 Neut % (Auto) 88.2 H Lymph % (Auto) 5.8 L [place] % (Auto) 5.7 Eos % (Auto) 0.1 Baso % (Auto) 0.2 Neut # (Auto) 10.6 H Lymph # (Auto) 0.7 L [place] # (Auto) 0.7 Eos # (Auto) 0.0 Baso # (Auto) 0.0 Neutrophils % (Manual) 81 H Band Neutrophils % 6 H Lymphocytes % (Manual) 6 L Monocytes % (Manual) 7 Nucleated RBC % 1 H Platelet Estimate Slightly decreased L Polychromasia Slight Hypochromasia (manual) Slight Poikilocytosis (manual Slight Anisocytosis (manual) Slight Microcytosis (manual) Slight Macrocytosis (manual) Slight Target Cells Slight Tear Drop Cells Slight [place] Cells Slight Sodium 135 Potassium 3.4 L Chloride 101 Carbon Dioxide 20 L Anion Gap 17 BUN 45 H Creatinine 4.2 H Est GFR ( Amer) 13 Est GFR (Non-Af Amer) 10 POC Glucose (mg/dL) 389 H Random Glucose 374 H D Calcium 8.6 Phosphorus 2.6 Magnesium 2.0 % Saturation Ferritin Total Bilirubin 0.3 AST 53 H D ALT 33 Alkaline Phosphatase 145 H Total Protein 5.6 L Albumin 3.0 L Globulin 2.6 Albumin/Globulin Ratio 1.1 JERRY Screen 11/07/18 11/07/18 11/07/18 12:00 13:06 14:10 WBC RBC Hgb Hct MCV MCH MCHC RDW Plt Count MPV Neut % (Auto) Lymph % (Auto) [place] % (Auto) Eos % (Auto) Baso % (Auto) Neut # (Auto) Lymph # (Auto) [place] # (Auto) Eos # (Auto) Baso # (Auto) Neutrophils % (Manual) Band Neutrophils % Lymphocytes % (Manual) Monocytes % (Manual) Nucleated RBC % Platelet Estimate Polychromasia Hypochromasia (manual) Poikilocytosis (manual Anisocytosis (manual) Microcytosis (manual) Macrocytosis (manual) Target Cells Tear Drop Cells [place] Cells Sodium Potassium Chloride Carbon Dioxide Anion Gap BUN Creatinine Est GFR ( Amer) Est GFR (Non-Af Amer) POC Glucose (mg/dL) 322 H 308 H 311 H Random Glucose Calcium Phosphorus Magnesium % Saturation Ferritin Total Bilirubin AST ALT Alkaline Phosphatase Total Protein Albumin Globulin Albumin/Globulin Ratio JERRY Screen 11/07/18 11/07/18 11/07/18 14:24 14:24 15:01 WBC RBC Hgb Hct MCV MCH MCHC RDW Plt Count MPV Neut % (Auto) Lymph % (Auto) [place] % (Auto) Eos % (Auto) Baso % (Auto) Neut # (Auto) Lymph # (Auto) [place] # (Auto) Eos # (Auto) Baso # (Auto) Neutrophils % (Manual) Band Neutrophils % Lymphocytes % (Manual) Monocytes % (Manual) Nucleated RBC % Platelet Estimate Polychromasia Hypochromasia (manual) Poikilocytosis (manual Anisocytosis (manual) Microcytosis (manual) Macrocytosis (manual) Target Cells Tear Drop Cells [place] Cells Sodium Potassium Chloride Carbon Dioxide Anion Gap BUN Creatinine Est GFR ( Amer) Est GFR (Non-Af Amer) POC Glucose (mg/dL) 325 H Random Glucose Calcium Phosphorus Magnesium % Saturation 46 Ferritin 3990.0 Total Bilirubin AST ALT Alkaline Phosphatase Total Protein Albumin Globulin Albumin/Globulin Ratio JERRY Screen 11/07/18 11/07/18 15:16 16:02 WBC RBC Hgb Hct MCV MCH MCHC RDW Plt Count MPV Neut % (Auto) Lymph % (Auto) [place] % (Auto) Eos % (Auto) Baso % (Auto) Neut # (Auto) Lymph # (Auto) [place] # (Auto) Eos # (Auto) Baso # (Auto) Neutrophils % (Manual) Band Neutrophils % Lymphocytes % (Manual) Monocytes % (Manual) Nucleated RBC % Platelet Estimate Polychromasia Hypochromasia (manual) Poikilocytosis (manual Anisocytosis (manual) Microcytosis (manual) Macrocytosis (manual) Target Cells Tear Drop Cells [place] Cells Sodium Potassium Chloride Carbon Dioxide Anion Gap BUN Creatinine Est GFR ( Amer) Est GFR (Non-Af Amer) POC Glucose (mg/dL) 350 H 353 H Random Glucose Calcium Phosphorus Magnesium % Saturation Ferritin Total Bilirubin AST ALT Alkaline Phosphatase Total Protein Albumin Globulin Albumin/Globulin Ratio JERRY Screen Attending/Attestation - Attestation I have personally seen and examined this patient.: Yes I have fully participated in the care of the patient.: Yes I have reviewed all pertinent clinical information: Yes Notes (Text): 11/07/18 17:02 Patient seen and examined No change in mental status Feeding change because of hyperglycemia Still having diarrhea Elevated ESR and CRP ceretec scan Continue antibiotics Continue vent support <Dyllan Patton - Last Filed: 11/07/18 22:04> CCU Subjective - Physician Review Subjective (Free Text): PGY-1 ICU progress note for Dr Ríos service Patient seen and examined at bedside today. Patient remains intubated. ROS unobtainable. CCU Objective - Vital Signs / Intake & Output Vital Signs (Last 4 hours): Vital Signs Temp Pulse Resp BP Pulse Ox 11/07/18 15:00 74 14 99 11/07/18 14:56 77 14 159/88 H 100 11/07/18 14:00 65 16 99 11/07/18 13:56 67 13 143/69 99 11/07/18 13:00 62 16 98 11/07/18 12:57 61 16 132/60 98 11/07/18 12:00 99.7 F H 72 11 L 99 11/07/18 11:56 66 17 155/69 H 100 Intake and Output (Last 8hrs): Intake & Output 11/07/18 11/07/18 11/07/18 06:59 14:59 22:59 Intake Total 100 240 Output Total 100 Balance 0 240 Weight 233 lb 6 oz Intake: Intake, IV Amount 100 200 Right Hand 100 200 Tube Feeding 0 40 Output: Stool 100 - Physical Exam Head: Positive for: Atraumatic, Normocephalic Extroacular Muscles: Positive for: EOMI (dropping eyelid left) Conjunctiva: Positive for: Normal Mouth: Positive for: Dry Neck: Positive for: Other (tracheostomy in place with vent, trialysis cath on left side neck area ) Respiratory/Chest: Positive for: Decreased Breath Sounds, Other (intubated ). Negative for: Respiratory Distress, Accessory Muscle Use, Tachypneic Cardiovascular: Positive for: Regular Rate and Rhythm, Normal S1, S2 Abdomen: Positive for: Normal Bowel Sounds, Other (PEG tube in place ). Negative for: Tenderness, Distention, Rebound, Guarding Upper Extremity: Positive for: Normal Inspection. Negative for: Cyanosis, Edema Lower Extremity: Positive for: Normal Inspection. Negative for: Edema Neurological: Negative for: GCS=15, CN II-XII Intact, Speech Normal Skin: Positive for: Warm, Dry, Normal Color Psychiatric: Negative for: Alert, Oriented x 3, Normal Insight, Normal Concentration - Medications Active Medications: Active Medications Generic Name Dose Route Start Last Admin Trade Name Freq PRN Reason Stop Dose Admin Acetaminophen 650 mg 10/25/18 03:30 11/05/18 09:09 Tylenol 650mg/20.3ml Solution Ud PO 650 mg Q6 PRN Administration pain+fever Amlodipine Besylate 5 mg 11/07/18 11:00 11/07/18 11:31 Norvasc PO 5 mg DAILY JOCELYN Administration Aspirin 81 mg 10/08/18 10:00 11/07/18 09:44 Aspirin Chewable PO 81 mg DAILY JOCELYN Administration Dextrose 0 ml 11/01/18 12:14 Dextrose 50% Inj IV STAT PRN Hypoglycemia Protocol Protocol Dextrose 0 gm 11/01/18 12:14 Glutose 15 PO ONCE PRN Hypoglycemia Protocol Protocol Dextrose 0 ml 11/07/18 11:00 Dextrose 50% Inj IV STAT PRN Hypoglycemia Protocol Protocol Dextrose 0 gm 11/07/18 11:00 Glutose 15 PO ONCE PRN Hypoglycemia Protocol Protocol Epoetin Dedrick 10,000 unit 11/01/18 14:00 11/06/18 12:32 Procrit IV 10,000 unit TTS JOCELYN Administration Glucagon 0 mg 11/01/18 12:14 Glucagen Diagnostic Kit IM STAT PRN Hypoglycemia Protocol Protocol Glucagon 0 mg 11/07/18 11:00 Glucagen Diagnostic Kit IM STAT PRN Hypoglycemia Protocol Protocol Meropenem 500 mg/ Sodium 100 mls @ 100 mls/hr 10/30/18 15:30 11/07/18 09:58 Chloride IVPB 100 mls/hr DAILY JOCELYN Administration Protocol Micafungin Sodium 100 mg/ 100 mls @ 100 mls/hr 11/04/18 19:00 11/06/18 18:19 Sodium Chloride IV 100 mls/hr Q24H JOCELYN Administration Protocol Metronidazole 500 mg in 100 mls @ 100 mls/hr 11/06/18 21:30 11/07/18 12:29 Flagyl IVPB 100 mls/hr Q8H OJCELYN Administration Protocol Dextrose 1,000 mls @ 0 mls/hr 11/07/18 11:00 Dextrose 5% In Water 1000 Ml IV .Q0M PRN Hypoglycemia Protocol Protocol Per Protocol Vancomycin HCl 500 mg/ Sodium 100 mls @ 100 mls/hr 11/08/18 10:00 Chloride IVPB TTS JOCELYN Protocol Insulin Human Regular 100 unit 100 mls @ 2 mls/hr 11/07/18 13:30 11/07/18 13:38 / Sodium Chloride IV 7 u/hr .Q24H PRN 7 mls/hr Administration Protocol Insulin Aspart 0 unit 10/31/18 12:00 11/07/18 13:26 Novolog SC Not Given Q6H JOCELYN Protocol Insulin Detemir 40 unit 10/28/18 22:00 11/06/18 21:52 Levemir SC 40 u HS JOCELYN Administration Insulin Detemir 30 unit 11/02/18 10:00 11/07/18 09:45 Levemir SC 30 u DAILY JOCELYN Administration Levetiracetam 1,000 mg 10/28/18 18:00 11/07/18 09:44 Keppra PO 1,000 mg BID JOCELYN Administration Levothyroxine Sodium 50 mcg 09/29/18 08:00 11/07/18 06:02 Synthroid PO 50 mcg 0600 JOCELYN Administration Methylprednisolone 20 mg 11/06/18 09:07 11/07/18 09:45 Solu-Medrol IVP 20 mg Q12 JOCELYN Administration Pantoprazole Sodium 40 mg 10/09/18 06:00 11/07/18 06:06 Protonix Susp PO 40 mg 0600 JOCELYN Administration Rosuvastatin Calcium 10 mg 09/30/18 22:00 11/06/18 21:52 Crestor PO 10 mg HS JOCELYN Administration Saccharomyces Boulardii 250 mg 11/01/18 10:00 11/07/18 13:53 Florastor PO 250 mg TID JOCELYN Administration - Patient Studies Lab Studies: Microbiology Studies 11/05/18 10:54 Gram Stain - Final Cerebral Spinal Fluid CSF Culture - Preliminary NO GROWTH AFTER 2 DAYS 11/05/18 10:54 Mycobacterial Culture - Preliminary Other: Please Indicate Lab Studies 11/07/18 11/07/18 11/07/18 Range/Units 15:16 15:01 14:24 WBC (4.8-10.8) K/uL RBC (3.80-5.20) Mil/uL Hgb (11.0-16.0) g/dL Hct (34.0-47.0) % MCV (81.0-99.0) fL MCH (27.0-31.0) pg MCHC (33.0-37.0) g/dL RDW (11.5-14.5) % Plt Count (130-400) K/uL MPV (7.2-11.7) fL Neut % (Auto) (50.0-75.0) % Lymph % (Auto) (20.0-40.0) % [place] % (Auto) (0.0-10.0) % Eos % (Auto) (0.0-4.0) % Baso % (Auto) (0.0-2.0) % Neut # (Auto) (1.8-7.0) K/uL Lymph # (Auto) (1.0-4.3) K/uL [place] # (Auto) (0.0-0.8) K/uL Eos # (Auto) (0.0-0.7) K/uL Baso # (Auto) (0.0-0.2) K/uL Neutrophils % (Manual) (50-75) % Band Neutrophils % (0-2) % Lymphocytes % (Manual) (20-40) % Monocytes % (Manual) (0-10) % Nucleated RBC % (0-0) % Platelet Estimate (NORMAL) Polychromasia Hypochromasia (manual) Poikilocytosis (manual Anisocytosis (manual) Microcytosis (manual) Macrocytosis (manual) Target Cells Tear Drop Cells [place] Cells Sodium (132-148) mmol/L Potassium (3.6-5.2) mmol/L Chloride (98-107) mmol/L Carbon Dioxide (22-30) mmol/L Anion Gap (10-20) BUN (7-17) mg/dL Creatinine (0.7-1.2) mg/dL Est GFR ( Amer) Est GFR (Non-Af Amer) POC Glucose (mg/dL) 350 H 325 H (65-110) mg/dL Random Glucose (65-105) mg/dL Calcium (8.6-10.4) mg/dl Phosphorus (2.5-4.5) mg/dL Magnesium (1.6-2.3) mg/dL % Saturation 46 (20-55) Total Bilirubin (0.2-1.3) mg/dL AST (14-36) U/L ALT (9-52) U/L Alkaline Phosphatase (38-126) U/L Total Protein (6.3-8.3) g/dL Albumin (3.5-5.0) g/dL Globulin (2.2-3.9) gm/dL Albumin/Globulin Ratio (1.0-2.1) JERRY Screen (Negative) 11/07/18 11/07/18 11/07/18 Range/Units 14:10 13:06 12:00 WBC (4.8-10.8) K/uL RBC (3.80-5.20) Mil/uL Hgb (11.0-16.0) g/dL Hct (34.0-47.0) % MCV (81.0-99.0) fL MCH (27.0-31.0) pg MCHC (33.0-37.0) g/dL RDW (11.5-14.5) % Plt Count (130-400) K/uL MPV (7.2-11.7) fL Neut % (Auto) (50.0-75.0) % Lymph % (Auto) (20.0-40.0) % [place] % (Auto) (0.0-10.0) % Eos % (Auto) (0.0-4.0) % Baso % (Auto) (0.0-2.0) % Neut # (Auto) (1.8-7.0) K/uL Lymph # (Auto) (1.0-4.3) K/uL [place] # (Auto) (0.0-0.8) K/uL Eos # (Auto) (0.0-0.7) K/uL Baso # (Auto) (0.0-0.2) K/uL Neutrophils % (Manual) (50-75) % Band Neutrophils % (0-2) % Lymphocytes % (Manual) (20-40) % Monocytes % (Manual) (0-10) % Nucleated RBC % (0-0) % Platelet Estimate (NORMAL) Polychromasia Hypochromasia (manual) Poikilocytosis (manual Anisocytosis (manual) Microcytosis (manual) Macrocytosis (manual) Target Cells Tear Drop Cells [place] Cells Sodium (132-148) mmol/L Potassium (3.6-5.2) mmol/L Chloride (98-107) mmol/L Carbon Dioxide (22-30) mmol/L Anion Gap (10-20) BUN (7-17) mg/dL Creatinine (0.7-1.2) mg/dL Est GFR ( Amer) Est GFR (Non-Af Amer) POC Glucose (mg/dL) 311 H 308 H 322 H (65-110) mg/dL Random Glucose (65-105) mg/dL Calcium (8.6-10.4) mg/dl Phosphorus (2.5-4.5) mg/dL Magnesium (1.6-2.3) mg/dL % Saturation (20-55) Total Bilirubin (0.2-1.3) mg/dL AST (14-36) U/L ALT (9-52) U/L Alkaline Phosphatase (38-126) U/L Total Protein (6.3-8.3) g/dL Albumin (3.5-5.0) g/dL Globulin (2.2-3.9) gm/dL Albumin/Globulin Ratio (1.0-2.1) JERRY Screen (Negative) 11/07/18 11/07/18 11/07/18 Range/Units 06:08 06:07 04:57 WBC 12.1 H (4.8-10.8) K/uL RBC 3.12 L (3.80-5.20) Mil/uL Hgb 8.7 L (11.0-16.0) g/dL Hct 28.1 L (34.0-47.0) % MCV 90.1 (81.0-99.0) fL MCH 27.8 (27.0-31.0) pg MCHC 30.8 L (33.0-37.0) g/dL RDW 19.3 H (11.5-14.5) % Plt Count 127 L (130-400) K/uL MPV 11.4 (7.2-11.7) fL Neut % (Auto) 88.2 H (50.0-75.0) % Lymph % (Auto) 5.8 L (20.0-40.0) % [place] % (Auto) 5.7 (0.0-10.0) % Eos % (Auto) 0.1 (0.0-4.0) % Baso % (Auto) 0.2 (0.0-2.0) % Neut # (Auto) 10.6 H (1.8-7.0) K/uL Lymph # (Auto) 0.7 L (1.0-4.3) K/uL [place] # (Auto) 0.7 (0.0-0.8) K/uL Eos # (Auto) 0.0 (0.0-0.7) K/uL Baso # (Auto) 0.0 (0.0-0.2) K/uL Neutrophils % (Manual) 81 H (50-75) % Band Neutrophils % 6 H (0-2) % Lymphocytes % (Manual) 6 L (20-40) % Monocytes % (Manual) 7 (0-10) % Nucleated RBC % 1 H (0-0) % Platelet Estimate Slightly decreased L (NORMAL) Polychromasia Slight Hypochromasia (manual) Slight Poikilocytosis (manual Slight Anisocytosis (manual) Slight Microcytosis (manual) Slight Macrocytosis (manual) Slight Target Cells Slight Tear Drop Cells Slight [place] Cells Slight Sodium 135 (132-148) mmol/L Potassium 3.4 L (3.6-5.2) mmol/L Chloride 101 (98-107) mmol/L Carbon Dioxide 20 L (22-30) mmol/L Anion Gap 17 (10-20) BUN 45 H (7-17) mg/dL Creatinine 4.2 H (0.7-1.2) mg/dL Est GFR ( Amer) 13 Est GFR (Non-Af Amer) 10 POC Glucose (mg/dL) 389 H (65-110) mg/dL Random Glucose 374 H D (65-105) mg/dL Calcium 8.6 (8.6-10.4) mg/dl Phosphorus 2.6 (2.5-4.5) mg/dL Magnesium 2.0 (1.6-2.3) mg/dL % Saturation (20-55) Total Bilirubin 0.3 (0.2-1.3) mg/dL AST 53 H D (14-36) U/L ALT 33 (9-52) U/L Alkaline Phosphatase 145 H (38-126) U/L Total Protein 5.6 L (6.3-8.3) g/dL Albumin 3.0 L (3.5-5.0) g/dL Globulin 2.6 (2.2-3.9) gm/dL Albumin/Globulin Ratio 1.1 (1.0-2.1) JERRY Screen (Negative) 11/06/18 11/06/18 11/06/18 Range/Units 23:47 18:20 10:16 WBC (4.8-10.8) K/uL RBC (3.80-5.20) Mil/uL Hgb (11.0-16.0) g/dL Hct (34.0-47.0) % MCV (81.0-99.0) fL MCH (27.0-31.0) pg MCHC (33.0-37.0) g/dL RDW (11.5-14.5) % Plt Count (130-400) K/uL MPV (7.2-11.7) fL Neut % (Auto) (50.0-75.0) % Lymph % (Auto) (20.0-40.0) % [place] % (Auto) (0.0-10.0) % Eos % (Auto) (0.0-4.0) % Baso % (Auto) (0.0-2.0) % Neut # (Auto) (1.8-7.0) K/uL Lymph # (Auto) (1.0-4.3) K/uL [place] # (Auto) (0.0-0.8) K/uL Eos # (Auto) (0.0-0.7) K/uL Baso # (Auto) (0.0-0.2) K/uL Neutrophils % (Manual) (50-75) % Band Neutrophils % (0-2) % Lymphocytes % (Manual) (20-40) % Monocytes % (Manual) (0-10) % Nucleated RBC % (0-0) % Platelet Estimate (NORMAL) Polychromasia Hypochromasia (manual) Poikilocytosis (manual Anisocytosis (manual) Microcytosis (manual) Macrocytosis (manual) Target Cells Tear Drop Cells [place] Cells Sodium (132-148) mmol/L Potassium (3.6-5.2) mmol/L Chloride (98-107) mmol/L Carbon Dioxide (22-30) mmol/L Anion Gap (10-20) BUN (7-17) mg/dL Creatinine (0.7-1.2) mg/dL Est GFR ( Amer) Est GFR (Non-Af Amer) POC Glucose (mg/dL) > 500 H* > 500 H* (65-110) mg/dL Random Glucose (65-105) mg/dL Calcium (8.6-10.4) mg/dl Phosphorus (2.5-4.5) mg/dL Magnesium (1.6-2.3) mg/dL % Saturation (20-55) Total Bilirubin (0.2-1.3) mg/dL AST (14-36) U/L ALT (9-52) U/L Alkaline Phosphatase (38-126) U/L Total Protein (6.3-8.3) g/dL Albumin (3.5-5.0) g/dL Globulin (2.2-3.9) gm/dL Albumin/Globulin Ratio (1.0-2.1) JERRY Screen Negative (Negative) Laboratory Results - last 24 hr 11/06/18 11/06/18 11/06/18 10:16 18:20 23:47 WBC RBC Hgb Hct MCV MCH MCHC RDW Plt Count MPV Neut % (Auto) Lymph % (Auto) [place] % (Auto) Eos % (Auto) Baso % (Auto) Neut # (Auto) Lymph # (Auto) [place] # (Auto) Eos # (Auto) Baso # (Auto) Neutrophils % (Manual) Band Neutrophils % Lymphocytes % (Manual) Monocytes % (Manual) Nucleated RBC % Platelet Estimate Polychromasia Hypochromasia (manual) Poikilocytosis (manual Anisocytosis (manual) Microcytosis (manual) Macrocytosis (manual) Target Cells Tear Drop Cells [place] Cells Sodium Potassium Chloride Carbon Dioxide Anion Gap BUN Creatinine Est GFR ( Amer) Est GFR (Non-Af Amer) POC Glucose (mg/dL) > 500 H* > 500 H* Random Glucose Calcium Phosphorus Magnesium % Saturation Total Bilirubin AST ALT Alkaline Phosphatase Total Protein Albumin Globulin Albumin/Globulin Ratio JERRY Screen Negative 11/07/18 11/07/18 11/07/18 04:57 06:07 06:08 WBC 12.1 H RBC 3.12 L Hgb 8.7 L Hct 28.1 L MCV 90.1 MCH 27.8 MCHC 30.8 L RDW 19.3 H Plt Count 127 L MPV 11.4 Neut % (Auto) 88.2 H Lymph % (Auto) 5.8 L [place] % (Auto) 5.7 Eos % (Auto) 0.1 Baso % (Auto) 0.2 Neut # (Auto) 10.6 H Lymph # (Auto) 0.7 L [place] # (Auto) 0.7 Eos # (Auto) 0.0 Baso # (Auto) 0.0 Neutrophils % (Manual) 81 H Band Neutrophils % 6 H Lymphocytes % (Manual) 6 L Monocytes % (Manual) 7 Nucleated RBC % 1 H Platelet Estimate Slightly decreased L Polychromasia Slight Hypochromasia (manual) Slight Poikilocytosis (manual Slight Anisocytosis (manual) Slight Microcytosis (manual) Slight Macrocytosis (manual) Slight Target Cells Slight Tear Drop Cells Slight [place] Cells Slight Sodium 135 Potassium 3.4 L Chloride 101 Carbon Dioxide 20 L Anion Gap 17 BUN 45 H Creatinine 4.2 H Est GFR ( Amer) 13 Est GFR (Non-Af Amer) 10 POC Glucose (mg/dL) 389 H Random Glucose 374 H D Calcium 8.6 Phosphorus 2.6 Magnesium 2.0 % Saturation Total Bilirubin 0.3 AST 53 H D ALT 33 Alkaline Phosphatase 145 H Total Protein 5.6 L Albumin 3.0 L Globulin 2.6 Albumin/Globulin Ratio 1.1 JERRY Screen 11/07/18 11/07/18 11/07/18 12:00 13:06 14:10 WBC RBC Hgb Hct MCV MCH MCHC RDW Plt Count MPV Neut % (Auto) Lymph % (Auto) [place] % (Auto) Eos % (Auto) Baso % (Auto) Neut # (Auto) Lymph # (Auto) [place] # (Auto) Eos # (Auto) Baso # (Auto) Neutrophils % (Manual) Band Neutrophils % Lymphocytes % (Manual) Monocytes % (Manual) Nucleated RBC % Platelet Estimate Polychromasia Hypochromasia (manual) Poikilocytosis (manual Anisocytosis (manual) Microcytosis (manual) Macrocytosis (manual) Target Cells Tear Drop Cells [place] Cells Sodium Potassium Chloride Carbon Dioxide Anion Gap BUN Creatinine Est GFR ( Amer) Est GFR (Non-Af Amer) POC Glucose (mg/dL) 322 H 308 H 311 H Random Glucose Calcium Phosphorus Magnesium % Saturation Total Bilirubin AST ALT Alkaline Phosphatase Total Protein Albumin Globulin Albumin/Globulin Ratio JERRY Screen 11/07/18 11/07/18 11/07/18 14:24 15:01 15:16 WBC RBC Hgb Hct MCV MCH MCHC RDW Plt Count MPV Neut % (Auto) Lymph % (Auto) [place] % (Auto) Eos % (Auto) Baso % (Auto) Neut # (Auto) Lymph # (Auto) [place] # (Auto) Eos # (Auto) Baso # (Auto) Neutrophils % (Manual) Band Neutrophils % Lymphocytes % (Manual) Monocytes % (Manual) Nucleated RBC % Platelet Estimate Polychromasia Hypochromasia (manual) Poikilocytosis (manual Anisocytosis (manual) Microcytosis (manual) Macrocytosis (manual) Target Cells Tear Drop Cells [place] Cells Sodium Potassium Chloride Carbon Dioxide Anion Gap BUN Creatinine Est GFR ( Amer) Est GFR (Non-Af Amer) POC Glucose (mg/dL) 325 H 350 H Random Glucose Calcium Phosphorus Magnesium % Saturation 46 Total Bilirubin AST ALT Alkaline Phosphatase Total Protein Albumin Globulin Albumin/Globulin Ratio JERRY Screen Fingerstick Blood Sugar Results: 308 Critical Care Progress Note - Vent Settings MODE:: PRVC TIDAL VOLUME:: 450 RESP RATE:: 18 FIO2:: 50 PEEP:: 5 - Extremities/Vascular Does the Patient have a Central Venous Catheter?: Yes Insertion Site: Internal Jugular Vein Does the Patient need a Central Venous Catheter?: Yes Does the Patient have a Rodriguez Catheter?: Yes Does the Patient need a Rodriguez Catheter?: Yes - Restraints Justification for Restraints: High risk for self extubation, High risk for removing IV access Assessment/Plan - Assessment and Plan (Free Text) Plan: Patient is a 72 year old female with PMHx of CKD, CHF, CAD s/p stents, pituitary adenoma a/p resection, DM, who was admitted for respiratory and cardiac arrest s/p permacath placement and AVF on 10/05; possible AMS due to anoxic brain injury, now on HD MWF, tracheostomy on 10/18/17, PEG tube placement 10/23/18. Patient became hypotensive overnight and upgraded to ICU. Permacath removed by surgery on 10/30. A trialysis catheter inserted but dialysis reported the line was not fu nction. A IJ central line inserted for dialysis access. Pt had a LP yesterday (11/05) to r/o meningitis. Pt continues to have diarrhea, feeds changed to Glucerna. Patient will go for Ceretec scan to r/o sites of infection. Neuro - Intubated - continue Keppra and valproate as per neuro - Lumbar puncture 11/05: WBC 1.0, Glucose 129, RBC 0 - f/u Neuro recs Cardiac - Hypertensive - start Norvasc 5mg daily - Echo 11/01: Left Ventricle systolic function is normal; EF is 55-60%; hypertensive heart disease; diastolic dysfunction; no AR, MR, pulmonary hypertension; trace to mild tricuspid regurgitation. - continue to monitor vitals - continue Crestor 10mg, ASA 81mg Pulm - Intubated, current vent settings PRVC 14/450/5/35 - Pressure support trials - CXR 11/05: No active disease GI - PEG tube in place - Tube feeds change to Glucerna - pt continues to have diarrhea, f/u dietary recs regarding tube feeds - rectal tube in place - protonix ppx - CT abdomen/pelvis 10/30: fluid and gas filled distended rectum versus perirectal abscess. Evidence of anastomotic bowel suture material and/or rectal tube/packing material. - per surgery, no intervention at this time Renal - HD schedule: TTHS - Left IJ catheter inserted 11/01 for dialysis - continue Procrit - low potassium today - given KCL x 1 - follow up labs in am - replete as needed Endo - Hx of Hypothyroidism, continue levothyroxine 50mg - Hx of DM, on Levemir 40 units HS and Levemir 30 units daily - ISS increased to high - Blood sugar remains elevated, >500 - Decreased Solu-Medrol from 40mg Q12 to 20mg Q12 - Insulin drip started - held levemir and ISS - Hypoglycemia protocol Heme - H/H 8.7/28.1 - monitor CBC ID - Afebrile - WBC 12.1 today, continue to monitor - continue Abx: Meropenem, Flagyl - Vanc trough 19.1, Vanco on hold, restart tomorrow (11/08) - 10/30 Tracheostomy site, sputum cx positive: Romina Albicans - continue Micafungin 100mg - Decubitus Ulcer, unstageable; wound care following - ESR (+) 99 - CRP (+) 155.70 - f/u ID recs - WBC scan - f/u Rheum - JERRY negative PPx - Protonix for GI ppx - DVT ppx: SCDs, Heparin SC - Tylenol PRN for fever Plan discussed with Dr. Michoacano Patton, PGY-1 - Date & Time Date: 11/07/18 Time: 09:00
[2018-11-07] MEDS: Micafungin 100 MG in Sodium Chloride 0.9% 100 ML IV SCH (18:03)
--- NOTE | 2018-11-07 21:37 | CP.PCM.PN ---
Subjective - Date & Time of Evaluation Date of Evaluation: 11/07/18 Time of Evaluation: 10:15 - Subjective Subjective: Patient seen and evaluated Poorly responsive to commands On Ventilator Physical Examination - Head Exam Head Exam: ATRAUMATIC, NORMAL INSPECTION - Eye Exam Eye Exam: EOMI, Normal appearance, PERRL. absent: Periorbital tenderness Pupil Exam: NORMAL ACCOMODATION - ENT Exam ENT Exam: Mucous Membranes Moist, Normal Oropharynx - Respiratory Exam Respiratory Exam: Clear to Ausculation Bilateral. absent: Prolonged Expiratory Phase, Respiratory Distress - Cardiovascular Exam Cardiovascular Exam: REGULAR RHYTHM, +S1, +S2. absent: Rubs - GI/Abdominal Exam GI & Abdominal Exam: Soft, Normal Bowel Sounds. absent: Hyperactive Bowel Sounds - Extremities Exam Extremities Exam: absent: Pedal Edema - Back Exam Back Exam: NORMAL INSPECTION. absent: CVA tenderness (R), paraspinal tenderness - Neurological Exam Neurological Exam: Altered - Psychiatric Exam Psychiatric exam: Agitated, Normal Affect, Normal Mood - Skin Skin Exam: Dry Assessment and Plan - Assessment and Plan (Free Text) Assessment: 72 year old female with past medical history of CAD, CHF, HTN, HLD, pituitary adenoma, is being seen s/p respiratory arrest during AV fistula placement surgery. s/p permacath on 10-11-18; possible AMS due to anoxic brain injury, now on HD MWF, tracheostomy done on 10/18/17, planning for PEG placement by GI today. Plan: Respiratory failure On Ventilator MRSA in trach -Continue Cefepime 1gm ivpb daily -Continue Vancomycin 1gm ivpb mwf Anoxic brain injury -Pending repeat MRI at [place]. Patient remains agigtated and unable to go for imaging at this time. HTN -Lopressor 12.5mg NG BID MIR HLD -Continue Rosuvastatin 10mg PO HS MIR CAD -Continue Aspirin 81mg PO Daily MIR DM -Levemir 30UNIT sc q12 mir Hypothyroidism -Continue Synthroid 50mcg PO 0600 MIR CKD on HD - S/p right permacath placed on 10/11 -Procrit 10,000 unit IV MWF ppx -Protonix -Heparin Objective - Vital Signs/Intake and Output Vital Signs (last 24 hours): Temp Pulse Resp BP Pulse Ox 98.8 F 77 16 146/68 100 11/07/18 16:00 11/07/18 19:00 11/07/18 19:00 11/07/18 18:56 11/07/18 19:00 Intake and Output: 11/07/18 11/08/18 18:59 06:59 Intake Total 796 36 Output Total 30 Balance 766 36 - Medications Medications: Current Medications Acetaminophen (Tylenol 650mg/20.3ml Solution Ud) 650 mg PO Q6 PRN PRN Reason: pain+fever Last Admin: 11/05/18 09:09 Dose: 650 mg Amlodipine Besylate (Norvasc) 5 mg PO DAILY MIR Last Admin: 11/07/18 11:31 Dose: 5 mg Aspirin (Aspirin Chewable) 81 mg PO DAILY MIR Last Admin: 11/07/18 09:44 Dose: 81 mg Dextrose (Dextrose 50% Inj) 0 ml IV STAT PRN; Protocol PRN Reason: Hypoglycemia Protocol Dextrose (Glutose 15) 0 gm PO ONCE PRN; Protocol PRN Reason: Hypoglycemia Protocol Dextrose (Dextrose 50% Inj) 0 ml IV STAT PRN; Protocol PRN Reason: Hypoglycemia Protocol Dextrose (Glutose 15) 0 gm PO ONCE PRN; Protocol PRN Reason: Hypoglycemia Protocol Epoetin Dedrick (Procrit) 10,000 unit IV TTS MIR Last Admin: 11/06/18 12:32 Dose: 10,000 unit Glucagon (Glucagen Diagnostic Kit) 0 mg IM STAT PRN; Protocol PRN Reason: Hypoglycemia Protocol Glucagon (Glucagen Diagnostic Kit) 0 mg IM STAT PRN; Protocol PRN Reason: Hypoglycemia Protocol Meropenem 500 mg/ Sodium (Chloride) 100 mls @ 100 mls/hr IVPB DAILY MIR; Protocol Last Admin: 11/07/18 09:58 Dose: 100 mls/hr Micafungin Sodium 100 mg/ (Sodium Chloride) 100 mls @ 100 mls/hr IV Q24H MIR; Protocol Last Admin: 11/07/18 18:03 Dose: 100 mls/hr Metronidazole (Flagyl) 500 mg in 100 mls @ 100 mls/hr IVPB Q8H MIR; Protocol Last Admin: 11/07/18 12:29 Dose: 100 mls/hr Dextrose (Dextrose 5% In Water 1000 Ml) 1,000 mls @ 0 mls/hr IV .Q0M PRN; Protocol PRN Reason: Hypoglycemia Protocol Vancomycin HCl 500 mg/ Sodium (Chloride) 100 mls @ 100 mls/hr IVPB TTS MIR; Protocol Insulin Human Regular 100 unit (/ Sodium Chloride) 100 mls @ 2 mls/hr IV .Q24H PRN; Protocol Last Titration: 11/07/18 18:59 Dose: 6 u/hr, 6 mls/hr Insulin Aspart (Novolog) 0 unit SC Q6H MIR; Protocol Last Admin: 11/07/18 13:26 Dose: Not Given Insulin Detemir (Levemir) 40 unit SC HS [facility] Last Admin: 11/06/18 21:52 Dose: 40 u Insulin Detemir (Levemir) 30 unit SC DAILY [facility] Last Admin: 11/07/18 09:45 Dose: 30 u Levetiracetam (Keppra) 1,000 mg PO BID [facility] Last Admin: 11/07/18 17:33 Dose: 1,000 mg Levothyroxine Sodium (Synthroid) 50 mcg PO 0600 [facility] Last Admin: 11/07/18 06:02 Dose: 50 mcg Methylprednisolone (Solu-Medrol) 20 mg IVP Q12 [facility] Last Admin: 11/07/18 09:45 Dose: 20 mg Pantoprazole Sodium (Protonix Susp) 40 mg PO 0600 [facility] Last Admin: 11/07/18 06:06 Dose: 40 mg Rosuvastatin Calcium (Crestor) 10 mg PO HS [facility] Last Admin: 11/06/18 21:52 Dose: 10 mg Saccharomyces Boulardii (Florastor) 250 mg PO TID [facility] Last Admin: 11/07/18 17:33 Dose: 250 mg - Labs Labs: 11/07/18 06:08 11/07/18 06:07 PT 14.3 SECONDS (9.7-12.2) H 11/05/18 05:52 INR 1.3 11/05/18 05:52 APTT 43 SECONDS (21-34) H 11/05/18 05:52
[2018-11-08] MEDS: metroNIDAZOLE IV 500 mg/100 ml 500 MG/100 ML BAG IVPB SCH ×3 (05:13→21:58)
[2018-11-08] MEDS: Levothyroxine 50 MCG TAB PO SCH (05:15)
[2018-11-08] MEDS: Pantoprazole 40 mg Susp UD PO SCH (05:15)
[2018-11-08] MEDS: Insulin Human Regular 100 UNIT in Sodium Chloride 0.9% 99 ML IV PRN (05:16)
[2018-11-08 06:10] LABS: ALBUMIN 2.9 g/dL (3.5-5.0); CALCIUM 9.2 mg/dl (8.6-10.4)
[2018-11-08 06:11] LABS: BASO % 0.3 % (0.0-2.0); HEMOGLOBIN 9.1 g/dL (11.0-16.0); LYMPH # 0.6 K/uL (1.0-4.3); MEAN CELL VOLUME 90.5 fL (81.0-99.0); MEAN CORPUSCULAR HEMOGLOBIN 28.3 pg (27.0-31.0); MEAN CORPUSCULAR HGB CONC 31.2 g/dL (33.0-37.0); MEAN PLATELET VOLUME 10.8 fL (7.2-11.7); MONO # 0.4 K/uL (0.0-0.8); MONO % 4.2 % (0.0-10.0); NEUT # 9.4 K/uL (1.8-7.0); NEUT % 89.5 % (50.0-75.0); NRBC % 0.8 % (0.0-2.0); PLATELET COUNT 160 K/uL (130-400); RBC 3.23 Mil/uL (3.80-5.20); RED CELL DISTRIBUTION WIDTH 20.7 % (11.5-14.5); WHITE BLOOD COUNT 10.5 K/uL (4.8-10.8)
[2018-11-08 08:30] LABS: ANISOCYTOSIS MODERATE; BANDS 1 % (0-2); LYMPHOCYTE 6 % (20-40); MONOCYTE 5 % (0-10); NEUTROPHIL 88 % (50-75); NUCLEATED RED BLOOD CELL 1 % (0-0); PLATELET ESTIMATE NORMAL (NORMAL); TOTAL CELLS COUNTED 100
[2018-11-08 08:31] LABS: LARGE PLATELETS PRESENT; OVALOCYTES SLIGHT; POIKILOCYTOSIS SLIGHT; TEARDROP CELLS SLIGHT
[2018-11-08] MEDS ORDERED: Dextrose 50% SYRINGE Inj (50 ml) IV ONE (08:59)
--- NOTE | 2018-11-08 09:58 | CP.PCM.PN ---
Subjective - Date & Time of Evaluation Date of Evaluation: 11/08/18 Time of Evaluation: 09:56 - Subjective Subjective: started dialysis; right IJ cath was repositioned- appears to be functioning now UF goal 1200ml same confusional mental status emains with PEG feeds; on vent K still low- on 3K bath Objective - Vital Signs/Intake and Output Vital Signs (last 24 hours): Temp Pulse Resp BP Pulse Ox 98.4 F 76 12 137/65 100 11/08/18 08:00 11/08/18 09:00 11/08/18 09:00 11/08/18 08:56 11/08/18 09:00 Intake and Output: 11/08/18 11/08/18 06:59 18:59 Intake Total 612 232 Output Total 90 0 Balance 522 232 - Medications Medications: Current Medications Acetaminophen (Tylenol 650mg/20.3ml Solution Ud) 650 mg PO Q6 PRN PRN Reason: pain+fever Last Admin: 11/05/18 09:09 Dose: 650 mg Amlodipine Besylate (Norvasc) 5 mg PO DAILY [facility] Last Admin: 11/07/18 11:31 Dose: 5 mg Aspirin (Aspirin Chewable) 81 mg PO DAILY [facility] Last Admin: 11/07/18 09:44 Dose: 81 mg Dextrose (Dextrose 50% Inj) 0 ml IV STAT PRN; Protocol PRN Reason: Hypoglycemia Protocol Dextrose (Glutose 15) 0 gm PO ONCE PRN; Protocol PRN Reason: Hypoglycemia Protocol Dextrose (Dextrose 50% Inj) 0 ml IV STAT PRN; Protocol PRN Reason: Hypoglycemia Protocol Dextrose (Glutose 15) 0 gm PO ONCE PRN; Protocol PRN Reason: Hypoglycemia Protocol Epoetin Dedrick (Procrit) 10,000 unit IV TTS [facility] Last Admin: 11/06/18 12:32 Dose: 10,000 unit Glucagon (Glucagen Diagnostic Kit) 0 mg IM STAT PRN; Protocol PRN Reason: Hypoglycemia Protocol Glucagon (Glucagen Diagnostic Kit) 0 mg IM STAT PRN; Protocol PRN Reason: Hypoglycemia Protocol Heparin Sodium (Porcine) (Heparin (For Dialysis)) 1,000 units IVP ONCE [facility] Meropenem 500 mg/ Sodium (Chloride) 100 mls @ 100 mls/hr IVPB DAILY [facility]; Protocol Last Admin: 11/07/18 09:58 Dose: 100 mls/hr Micafungin Sodium 100 mg/ (Sodium Chloride) 100 mls @ 100 mls/hr IV Q24H [facility]; Protocol Last Admin: 11/07/18 18:03 Dose: 100 mls/hr Metronidazole (Flagyl) 500 mg in 100 mls @ 100 mls/hr IVPB Q8H [facility]; Protocol Last Admin: 11/08/18 05:13 Dose: 100 mls/hr Dextrose (Dextrose 5% In Water 1000 Ml) 1,000 mls @ 0 mls/hr IV .Q0M PRN; Protocol PRN Reason: Hypoglycemia Protocol Vancomycin HCl 500 mg/ Sodium (Chloride) 100 mls @ 100 mls/hr IVPB TTS [facility]; Protocol Insulin Human Regular 100 unit (/ Sodium Chloride) 100 mls @ 2 mls/hr IV .Q24H PRN; Protocol Last Titration: 11/08/18 08:00 Dose: 0 u/hr, 0 mls/hr Insulin Aspart (Novolog) 0 unit SC Q6H [facility]; Protocol Last Admin: 11/07/18 13:26 Dose: Not Given Insulin Detemir (Levemir) 40 unit SC [facility] Last Admin: 11/06/18 21:52 Dose: 40 u Insulin Detemir (Levemir) 30 unit SC DAILY [facility] Last Admin: 11/07/18 09:45 Dose: 30 u Levetiracetam (Keppra) 1,000 mg PO BID [facility] Last Admin: 11/07/18 17:33 Dose: 1,000 mg Levothyroxine Sodium (Synthroid) 50 mcg PO 0600 [facility] Last Admin: 11/08/18 05:15 Dose: 50 mcg Methylprednisolone (Solu-Medrol) 20 mg IVP Q12 [facility] Last Admin: 11/07/18 22:07 Dose: 20 mg Pantoprazole Sodium (Protonix Susp) 40 mg PO 0600 [facility] Last Admin: 11/08/18 05:15 Dose: 40 mg Rosuvastatin Calcium (Crestor) 10 mg PO HS [facility] Last Admin: 11/07/18 22:07 Dose: 10 mg Saccharomyces Boulardii (Florastor) 250 mg PO TID [facility] Last Admin: 11/07/18 17:33 Dose: 250 mg - Labs Labs: 11/08/18 05:49 11/08/18 05:47 PT 14.3 SECONDS (9.7-12.2) H 11/05/18 05:52 INR 1.3 11/05/18 05:52 APTT 43 SECONDS (21-34) H 11/05/18 05:52 - Constitutional Appears: Confused, Chronically Ill - Head Exam Head Exam: ATRAUMATIC, NORMAL INSPECTION - Neck Exam Neck Exam: Normal Inspection. absent: Tenderness - Respiratory Exam Respiratory Exam: Clear to Ausculation Bilateral, Respiratory Distress - Cardiovascular Exam Cardiovascular Exam: REGULAR RHYTHM, +S1 - GI/Abdominal Exam GI & Abdominal Exam: Soft. absent: Tenderness - Extremities Exam Extremities Exam: Normal Inspection. absent: Tenderness - Neurological Exam Neurological Exam: Altered - Skin Skin Exam: Dry, Warm Assessment and Plan (1) ESRD (end stage renal disease) Status: Acute (2) Diabetic nephropathy associated with type 2 diabetes mellitus Status: Acute (3) CAD (coronary artery disease) Status: Acute (4) HTN (hypertension) Status: Acute (5) Metabolic encephalopathy Status: Acute - Assessment and Plan (Free Text) Plan: Same dialysis TTS Moderate fluid removal monitor lytes same other ICU plans
[2018-11-08] MEDS: MethylPREDNISolone 40 mg Vial IVP SCH (10:22)
[2018-11-08] MEDS: Saccharomyces Boulardi 250 mg Cap PO SCH ×3 (10:24→18:04)
[2018-11-08] MEDS: levETIRAcetam 100 mg/ml (5ml) Oral Syringe PO SCH ×2 (10:27→18:03)
[2018-11-08] MEDS: Epoetin Alfa 10,000 unit/ml Dialysis IV SCH (10:33)
[2018-11-08] MEDS: (Novolog) Insulin Aspart, Recombinant 100 u/ml 10 ml vial SC SCH ×2 (12:53→18:00)
[2018-11-08] MEDS: Meropenem 500 MG in Sodium Chloride 0.9% 100 ML IVPB SCH (13:39)
--- NOTE | 2018-11-08 13:56 | RAD ---
Date of service: 11/08/2018 HISTORY: Trialysis cath position COMPARISON: Portable chest 11/05/2018. FINDINGS: LUNGS: Tracheostomy tube is unchanged in position. Left central venous line is been retracted terminating now at the region of the junction of the brachiocephalic vein with the superior vena cava. No consolidation identified bilaterally. PLEURA: No significant pleural effusion identified, no pneumothorax apparent. CARDIOVASCULAR: No aortic atherosclerotic calcification present. Stable cardiac silhouette noted. No definitive pulmonary vascular congestion. OSSEOUS STRUCTURES: No significant abnormalities. VISUALIZED UPPER ABDOMEN: Normal. OTHER FINDINGS: None. IMPRESSION: No acute infiltrate pleural effusion identified. Stable tracheostomy tube identified. Left CVL is been retracted somewhat, terminating at SVC/brachiocephalic vein junction.
--- NOTE | 2018-11-08 14:25 | CP.PCM.PN ---
Subjective - Date & Time of Evaluation Date of Evaluation: 11/08/18 Time of Evaluation: 13:50 - Subjective Subjective: dictated Objective - Vital Signs/Intake and Output Vital Signs (last 24 hours): Temp Pulse Resp BP Pulse Ox 99.7 F H 74 15 176/83 H 98 11/08/18 13:10 11/08/18 14:18 11/08/18 14:18 11/08/18 14:18 11/08/18 14:18 Intake and Output: 11/08/18 11/08/18 06:59 18:59 Intake Total 612 352 Output Total 90 1300 Balance 522 -948 - Medications Medications: Current Medications Acetaminophen (Tylenol 650mg/20.3ml Solution Ud) 650 mg PO Q6 PRN PRN Reason: pain+fever Last Admin: 11/05/18 09:09 Dose: 650 mg Amlodipine Besylate (Norvasc) 5 mg PO DAILY [facility] Last Admin: 11/08/18 14:08 Dose: 5 mg Aspirin (Aspirin Chewable) 81 mg PO DAILY [facility] Last Admin: 11/08/18 10:24 Dose: 81 mg Dextrose (Dextrose 50% Inj) 0 ml IV STAT PRN; Protocol PRN Reason: Hypoglycemia Protocol Dextrose (Glutose 15) 0 gm PO ONCE PRN; Protocol PRN Reason: Hypoglycemia Protocol Dextrose (Dextrose 50% Inj) 0 ml IV STAT PRN; Protocol PRN Reason: Hypoglycemia Protocol Dextrose (Glutose 15) 0 gm PO ONCE PRN; Protocol PRN Reason: Hypoglycemia Protocol Epoetin Dedrick (Procrit) 10,000 unit IV TTS [facility] Last Admin: 11/08/18 10:33 Dose: 10,000 unit Glucagon (Glucagen Diagnostic Kit) 0 mg IM STAT PRN; Protocol PRN Reason: Hypoglycemia Protocol Glucagon (Glucagen Diagnostic Kit) 0 mg IM STAT PRN; Protocol PRN Reason: Hypoglycemia Protocol Heparin Sodium (Porcine) (Heparin (For Dialysis)) 1,000 units IVP ONCE [facility] Meropenem 500 mg/ Sodium (Chloride) 100 mls @ 100 mls/hr IVPB DAILY [facility]; Protocol Last Admin: 11/08/18 13:39 Dose: 100 mls/hr Micafungin Sodium 100 mg/ (Sodium Chloride) 100 mls @ 100 mls/hr IV Q24H JOCELYN; Protocol Last Admin: 11/07/18 18:03 Dose: 100 mls/hr Metronidazole (Flagyl) 500 mg in 100 mls @ 100 mls/hr IVPB Q8H [facility]; Protocol Last Admin: 11/08/18 05:13 Dose: 100 mls/hr Dextrose (Dextrose 5% In Water 1000 Ml) 1,000 mls @ 0 mls/hr IV .Q0M PRN; Anita col PRN Reason: Hypoglycemia Protocol Vancomycin HCl 500 mg/ Sodium (Chloride) 100 mls @ 100 mls/hr IVPB TTS JOCELYN; Protocol Insulin Aspart (Novolog) 0 unit SC Q6H [facility]; Protocol Last Admin: 11/08/18 12:53 Dose: Not Given Insulin Detemir (Levemir) 40 unit SC [facility] Last Admin: 11/06/18 21:52 Dose: 40 u Insulin Detemir (Levemir) 30 unit SC DAILY [facility] Last Admin: 11/07/18 09:45 Dose: 30 u Levetiracetam (Keppra) 1,000 mg PO BID [facility] Last Admin: 11/08/18 10:27 Dose: 1,000 mg Levothyroxine Sodium (Synthroid) 50 mcg PO 0600 [facility] Last Admin: 11/08/18 05:15 Dose: 50 mcg Pantoprazole Sodium (Protonix Susp) 40 mg PO 0600 [facility] Last Admin: 11/08/18 05:15 Dose: 40 mg Rosuvastatin Calcium (Crestor) 10 mg PO [facility] Last Admin: 11/07/18 22:07 Dose: 10 mg Saccharomyces Boulardii (Florastor) 250 mg PO TID [facility] Last Admin: 11/08/18 10:24 Dose: 250 mg - Labs Labs: 11/08/18 05:49 11/08/18 05:47 PT 14.3 SECONDS (9.7-12.2) H 11/05/18 05:52 INR 1.3 11/05/18 05:52 APTT 43 SECONDS (21-34) H 11/05/18 05:52
--- NOTE | 2018-11-08 15:30 | CP.CCUPN ---
<Dyllan Patton - Last Filed: 11/08/18 15:29> CCU Subjective - Physician Review Subjective (Free Text): PGY-[address] ICU progress note for Dr Ríos service Patient seen and examined at bedside today. Patient remains intubated. ROS unobtainable. CCU Objective - Vital Signs / Intake & Output Vital Signs (Last 4 hours): Vital Signs Temp Pulse Pulse Resp BP BP Pulse Ox 11/08/18 14:18 74 15 176/83 H 98 11/08/18 14:00 79 15 100 11/08/18 13:18 78 17 137/74 100 11/08/18 13:12 79 13 157/68 H 100 11/08/18 13:10 99.7 F H 82 17 128/68 100 11/08/18 13:00 80 21 100 11/08/18 12:56 84 20 128/68 100 11/08/18 12:41 83 14 128/66 100 11/08/18 12:28 135/69 11/08/18 12:27 82 18 135/69 100 11/08/18 12:11 76 20 137/71 100 11/08/18 12:00 99.4 F 76 19 135/69 123/66 100 11/08/18 11:57 76 17 123/66 100 11/08/18 11:41 82 17 118/67 100 11/08/18 11:30 127/69 Intake and Output (Last 8hrs): Intake & Output 11/08/18 11/08/18 11/08/18 06:59 14:59 22:59 Intake Total 310 352 Output Total 90 1300 Balance 220 -948 Weight 235 lb 4 oz Intake: IV 30 90 Intake, IV Amount 30 2 Left Internal Jugular 30 2 Tube Feeding 250 260 Output: Urine 1300 Urine, Voided 1300 Stool 90 0 - Physical Exam Head: Positive for: Atraumatic, Normocephalic Extroacular Muscles: Positive for: EOMI (dropping eyelid left) Conjunctiva: Positive for: Normal Mouth: Positive for: Dry Neck: Positive for: Other (tracheostomy in place with vent, trialysis cath on left side neck area ) Respiratory/Chest: Positive for: Decreased Breath Sounds, Other (intubated ). Negative for: Respiratory Distress, Accessory Muscle Use, Tachypneic Cardiovascular: Positive for: Regular Rate and Rhythm, Normal S1, S2 Abdomen: Positive for: Normal Bowel Sounds, Other (PEG tube in place ). Negative for: Tenderness, Distention, Rebound, Guarding Upper Extremity: Positive for: Normal Inspection. Negative for: Cyanosis, Edema Lower Extremity: Positive for: Normal Inspection. Negative for: Edema Neurological: Negative for: GCS=15, CN II-XII Intact, Speech Normal Skin: Positive for: Warm, Dry, Normal Color Psychiatric: Negative for: Alert, Oriented x 3, Normal Insight, Normal Concentration - Medications Active Medications: Active Medications Generic Name Dose Route Start Last Admin Trade Name Freq PRN Reason Stop Dose Admin Acetaminophen 650 mg 10/25/18 03:30 11/05/18 09:09 Tylenol 650mg/20.3ml Solution Ud PO 650 mg Q6 PRN Administration pain+fever Amlodipine Besylate 5 mg 11/07/18 11:00 11/08/18 14:08 Norvasc PO 5 mg DAILY JOCELYN Administration Aspirin 81 mg 10/08/18 10:00 11/08/18 10:24 Aspirin Chewable PO 81 mg DAILY JOCELYN Administration Dextrose 0 ml 11/01/18 12:14 Dextrose 50% Inj IV STAT PRN Hypoglycemia Protocol Protocol Dextrose 0 gm 11/01/18 12:14 Glutose 15 PO ONCE PRN Hypoglycemia Protocol Protocol Dextrose 0 ml 11/07/18 11:00 Dextrose 50% Inj IV STAT PRN Hypoglycemia Protocol Protocol Dextrose 0 gm 11/07/18 11:00 Glutose 15 PO ONCE PRN Hypoglycemia Protocol Protocol Epoetin Dedrick 10,000 unit 11/01/18 14:00 11/08/18 10:33 Procrit IV 10,000 unit TTS JOCELYN Administration Glucagon 0 mg 11/01/18 12:14 Glucagen Diagnostic Kit IM STAT PRN Hypoglycemia Protocol Protocol Glucagon 0 mg 11/07/18 11:00 Glucagen Diagnostic Kit IM STAT PRN Hypoglycemia Protocol Protocol Heparin Sodium (Porcine) 1,000 units 11/08/18 07:45 Heparin (For Dialysis) IVP ONCE JOCELYN Meropenem 500 mg/ Sodium 100 mls @ 100 mls/hr 10/30/18 15:30 11/08/18 13:39 Chloride IVPB 100 mls/hr DAILY JOCELYN Administration Protocol Micafungin Sodium 100 mg/ 100 mls @ 100 mls/hr 11/04/18 19:00 11/07/18 18:03 Sodium Chloride IV 100 mls/hr Q24H JOCELYN Administration Protocol Metronidazole 500 mg in 100 mls @ 100 mls/hr 11/06/18 21:30 11/08/18 05:13 Flagyl IVPB 100 mls/hr Q8H JOCELYN Administration Protocol Dextrose 1,000 mls @ 0 mls/hr 11/07/18 11:00 Dextrose 5% In Water 1000 Ml IV .Q0M PRN Hypoglycemia Protocol Protocol Per Protocol Vancomycin HCl 500 mg/ Sodium 100 mls @ 100 mls/hr 11/08/18 10:00 Chloride IVPB TTS [facility] Protocol Insulin Aspart 0 unit 10/31/18 12:00 11/08/18 12:53 Novolog SC Not Given Q6H JOCELYN Protocol Insulin Detemir 40 unit 10/28/18 22:00 11/06/18 21:52 Levemir SC 40 u HS JOCELYN Administration Insulin Detemir 30 unit 11/02/18 10:00 11/07/18 09:45 Levemir SC 30 u DAILY JOCELYN Administration Levetiracetam 1,000 mg 10/28/18 18:00 11/08/18 10:27 Keppra PO 1,000 mg BID JOCELYN Administration Levothyroxine Sodium 50 mcg 09/29/18 08:00 11/08/18 05:15 Synthroid PO 50 mcg 0600 JOCELYN Administration Pantoprazole Sodium 40 mg 10/09/18 06:00 11/08/18 05:15 Protonix Susp PO 40 mg 0600 JOCELYN Administration Rosuvastatin Calcium 10 mg 09/30/18 22:00 11/07/18 22:07 Crestor PO 10 mg HS JOCELYN Administration Saccharomyces Boulardii 250 mg 11/01/18 10:00 11/08/18 10:24 Florastor PO 250 mg TID JOCELYN Administration - Patient Studies Lab Studies: Microbiology Studies 11/05/18 10:54 Gram Stain - Final Cerebral Spinal Fluid CSF Culture - Preliminary NO GROWTH AFTER 3 DAYS Lab Studies 11/08/18 11/08/18 11/08/18 Range/Units 10:57 10:02 09:21 WBC (4.8-10.8) K/uL RBC (3.80-5.20) Mil/uL Hgb (11.0-16.0) g/dL Hct (34.0-47.0) % MCV (81.0-99.0) fL MCH (27.0-31.0) pg MCHC (33.0-37.0) g/dL RDW (11.5-14.5) % Plt Count (130-400) K/uL MPV (7.2-11.7) fL Neut % (Auto) (50.0-75.0) % Lymph % (Auto) (20.0-40.0) % [place] % (Auto) (0.0-10.0) % Eos % (Auto) (0.0-4.0) % Baso % (Auto) (0.0-2.0) % Neut # (Auto) (1.8-7.0) K/uL Lymph # (Auto) (1.0-4.3) K/uL [place] # (Auto) (0.0-0.8) K/uL Eos # (Auto) (0.0-0.7) K/uL Baso # (Auto) (0.0-0.2) K/uL Neutrophils % (Manual) (50-75) % Band Neutrophils % (0-2) % Lymphocytes % (Manual) (20-40) % Monocytes % (Manual) (0-10) % Nucleated RBC % (0-0) % Platelet Estimate (NORMAL) Large Platelets Poikilocytosis (manual Anisocytosis (manual) Tear Drop Cells Ovalocytes Sodium (132-148) mmol/L Potassium (3.6-5.2) mmol/L Chloride (98-107) mmol/L Carbon Dioxide (22-30) mmol/L Anion Gap (10-20) BUN (7-17) mg/dL Creatinine (0.7-1.2) mg/dL Est GFR ( Amer) Est GFR (Non-Af Amer) POC Glucose (mg/dL) 133 H 137 H 183 H (65-110) mg/dL Random Glucose (65-105) mg/dL Calcium (8.6-10.4) mg/dl Phosphorus (2.5-4.5) mg/dL Magnesium (1.6-2.3) mg/dL Ferritin ng/mL Total Bilirubin (0.2-1.3) mg/dL AST (14-36) U/L ALT (9-52) U/L Alkaline Phosphatase (38-126) U/L Total Protein (6.3-8.3) g/dL Albumin (3.5-5.0) g/dL Globulin (2.2-3.9) gm/dL Albumin/Globulin Ratio (1.0-2.1) CSF LDH (<=25) U/L Random Vancomycin ug/mL 11/08/18 11/08/18 11/08/18 Range/Units 08:51 08:17 07:08 WBC (4.8-10.8) K/uL RBC (3.80-5.20) Mil/uL Hgb (11.0-16.0) g/dL Hct (34.0-47.0) % MCV (81.0-99.0) fL MCH (27.0-31.0) pg MCHC (33.0-37.0) g/dL RDW (11.5-14.5) % Plt Count (130-400) K/uL MPV (7.2-11.7) fL Neut % (Auto) (50.0-75.0) % Lymph % (Auto) (20.0-40.0) % [place] % (Auto) (0.0-10.0) % Eos % (Auto) (0.0-4.0) % Baso % (Auto) (0.0-2.0) % Neut # (Auto) (1.8-7.0) K/uL Lymph # (Auto) (1.0-4.3) K/uL [place] # (Auto) (0.0-0.8) K/uL Eos # (Auto) (0.0-0.7) K/uL Baso # (Auto) (0.0-0.2) K/uL Neutrophils % (Manual) (50-75) % Band Neutrophils % (0-2) % Lymphocytes % (Manual) (20-40) % Monocytes % (Manual) (0-10) % Nucleated RBC % (0-0) % Platelet Estimate (NORMAL) Large Platelets Poikilocytosis (manual Anisocytosis (manual) Tear Drop Cells Ovalocytes Sodium (132-148) mmol/L Potassium (3.6-5.2) mmol/L Chloride (98-107) mmol/L Carbon Dioxide (22-30) mmol/L Anion Gap (10-20) BUN (7-17) mg/dL Creatinine (0.7-1.2) mg/dL Est GFR ( Amer) Est GFR (Non-Af Amer) POC Glucose (mg/dL) 73 107 168 H (65-110) mg/dL Random Glucose (65-105) mg/dL Calcium (8.6-10.4) mg/dl Phosphorus (2.5-4.5) mg/dL Magnesium (1.6-2.3) mg/dL Ferritin ng/mL Total Bilirubin (0.2-1.3) mg/dL AST (14-36) U/L ALT (9-52) U/L Alkaline Phosphatase (38-126) U/L Total Protein (6.3-8.3) g/dL Albumin (3.5-5.0) g/dL Globulin (2.2-3.9) gm/dL Albumin/Globulin Ratio (1.0-2.1) CSF LDH (<=25) U/L Random Vancomycin ug/mL 11/08/18 11/08/18 11/08/18 Range/Units 06:29 05:49 05:47 WBC 10.5 (4.8-10.8) K/uL RBC 3.23 L (3.80-5.20) Mil/uL Hgb 9.1 L (11.0-16.0) g/dL Hct 29.2 L (34.0-47.0) % MCV 90.5 (81.0-99.0) fL MCH 28.3 (27.0-31.0) pg MCHC 31.2 L (33.0-37.0) g/dL RDW 20.7 H (11.5-14.5) % Plt Count 160 (130-400) K/uL MPV 10.8 (7.2-11.7) fL Neut % (Auto) 89.5 H (50.0-75.0) % Lymph % (Auto) 6.0 L (20.0-40.0) % [place] % (Auto) 4.2 (0.0-10.0) % Eos % (Auto) 0.0 (0.0-4.0) % Baso % (Auto) 0.3 (0.0-2.0) % Neut # (Auto) 9.4 H (1.8-7.0) K/uL Lymph # (Auto) 0.6 L (1.0-4.3) K/uL [place] # (Auto) 0.4 (0.0-0.8) K/uL Eos # (Auto) 0.0 (0.0-0.7) K/uL Baso # (Auto) 0.0 (0.0-0.2) K/uL Neutrophils % (Manual) 88 H (50-75) % Band Neutrophils % 1 (0-2) % Lymphocytes % (Manual) 6 L (20-40) % Monocytes % (Manual) 5 (0-10) % Nucleated RBC % 1 H (0-0) % Platelet Estimate Normal (NORMAL) Large Platelets Present Poikilocytosis (manual Slight Anisocytosis (manual) Moderate Tear Drop Cells Slight Ovalocytes Slight Sodium (132-148) mmol/L Potassium (3.6-5.2) mmol/L Chloride (98-107) mmol/L Carbon Dioxide (22-30) mmol/L Anion Gap (10-20) BUN (7-17) mg/dL Creatinine (0.7-1.2) mg/dL Est GFR ( Amer) Est GFR (Non-Af Amer) POC Glucose (mg/dL) 181 H (65-110) mg/dL Random Glucose (65-105) mg/dL Calcium (8.6-10.4) mg/dl Phosphorus (2.5-4.5) mg/dL Magnesium (1.6-2.3) mg/dL Ferritin ng/mL Total Bilirubin (0.2-1.3) mg/dL AST (14-36) U/L ALT (9-52) U/L Alkaline Phosphatase (38-126) U/L Total Protein (6.3-8.3) g/dL Albumin (3.5-5.0) g/dL Globulin (2.2-3.9) gm/dL Albumin/Globulin Ratio (1.0-2.1) CSF LDH (<=25) U/L Random Vancomycin 16.1 ug/mL 11/08/18 11/08/18 11/08/18 Range/Units 05:47 05:05 03:59 WBC (4.8-10.8) K/uL RBC (3.80-5.20) Mil/uL Hgb (11.0-16.0) g/dL Hct (34.0-47.0) % MCV (81.0-99.0) fL MCH (27.0-31.0) pg MCHC (33.0-37.0) g/dL RDW (11.5-14.5) % Plt Count (130-400) K/uL MPV (7.2-11.7) fL Neut % (Auto) (50.0-75.0) % Lymph % (Auto) (20.0-40.0) % [place] % (Auto) (0.0-10.0) % Eos % (Auto) (0.0-4.0) % Baso % (Auto) (0.0-2.0) % Neut # (Auto) (1.8-7.0) K/uL Lymph # (Auto) (1.0-4.3) K/uL [place] # (Auto) (0.0-0.8) K/uL Eos # (Auto) (0.0-0.7) K/uL Baso # (Auto) (0.0-0.2) K/uL Neutrophils % (Manual) (50-75) % Band Neutrophils % (0-2) % Lymphocytes % (Manual) (20-40) % Monocytes % (Manual) (0-10) % Nucleated RBC % (0-0) % Platelet Estimate (NORMAL) Large Platelets Poikilocytosis (manual Anisocytosis (manual) Tear Drop Cells Ovalocytes Sodium 142 (132-148) mmol/L Potassium 3.6 (3.6-5.2) mmol/L Chloride 108 H (98-107) mmol/L Carbon Dioxide 20 L (22-30) mmol/L Anion Gap 18 (10-20) BUN 71 H (7-17) mg/dL Creatinine 5.5 H (0.7-1.2) mg/dL Est GFR ( Amer) 9 Est GFR (Non-Af Amer) 8 POC Glucose (mg/dL) 217 H 237 H (65-110) mg/dL Random Glucose 200 H D (65-105) mg/dL Calcium 9.2 (8.6-10.4) mg/dl Phosphorus 3.7 (2.5-4.5) mg/dL Magnesium 2.2 (1.6-2.3) mg/dL Ferritin ng/mL Total Bilirubin 0.5 (0.2-1.3) mg/dL AST 63 H (14-36) U/L ALT 34 (9-52) U/L Alkaline Phosphatase 142 H (38-126) U/L Total Protein 5.9 L (6.3-8.3) g/dL Albumin 2.9 L (3.5-5.0) g/dL Globulin 3.0 (2.2-3.9) gm/dL Albumin/Globulin Ratio 1.0 (1.0-2.1) CSF LDH (<=25) U/L Random Vancomycin ug/mL 11/08/18 11/08/18 11/08/18 Range/Units 02:50 01:55 00:46 WBC (4.8-10.8) K/uL RBC (3.80-5.20) Mil/uL Hgb (11.0-16.0) g/dL Hct (34.0-47.0) % MCV (81.0-99.0) fL MCH (27.0-31.0) pg MCHC (33.0-37.0) g/dL RDW (11.5-14.5) % Plt Count (130-400) K/uL MPV (7.2-11.7) fL Neut % (Auto) (50.0-75.0) % Lymph % (Auto) (20.0-40.0) % [place] % (Auto) (0.0-10.0) % Eos % (Auto) (0.0-4.0) % Baso % (Auto) (0.0-2.0) % Neut # (Auto) (1.8-7.0) K/uL Lymph # (Auto) (1.0-4.3) K/uL [place] # (Auto) (0.0-0.8) K/uL Eos # (Auto) (0.0-0.7) K/uL Baso # (Auto) (0.0-0.2) K/uL Neutrophils % (Manual) (50-75) % Band Neutrophils % (0-2) % Lymphocytes % (Manual) (20-40) % Monocytes % (Manual) (0-10) % Nucleated RBC % (0-0) % Platelet Estimate (NORMAL) Large Platelets Poikilocytosis (manual Anisocytosis (manual) Tear Drop Cells Ovalocytes Sodium (132-148) mmol/L Potassium (3.6-5.2) mmol/L Chloride (98-107) mmol/L Carbon Dioxide (22-30) mmol/L Anion Gap (10-20) BUN (7-17) mg/dL Creatinine (0.7-1.2) mg/dL Est GFR ( Amer) Est GFR (Non-Af Amer) POC Glucose (mg/dL) 215 H 234 H 209 H (65-110) mg/dL Random Glucose (65-105) mg/dL Calcium (8.6-10.4) mg/dl Phosphorus (2.5-4.5) mg/dL Magnesium (1.6-2.3) mg/dL Ferritin ng/mL Total Bilirubin (0.2-1.3) mg/dL AST (14-36) U/L ALT (9-52) U/L Alkaline Phosphatase (38-126) U/L Total Protein (6.3-8.3) g/dL Albumin (3.5-5.0) g/dL Globulin (2.2-3.9) gm/dL Albumin/Globulin Ratio (1.0-2.1) CSF LDH (<=25) U/L Random Vancomycin ug/mL 11/07/18 11/07/18 11/07/18 Range/Units 23:42 22:26 21:07 WBC (4.8-10.8) K/uL RBC (3.80-5.20) Mil/uL Hgb (11.0-16.0) g/dL Hct (34.0-47.0) % MCV (81.0-99.0) fL MCH (27.0-31.0) pg MCHC (33.0-37.0) g/dL RDW (11.5-14.5) % Plt Count (130-400) K/uL MPV (7.2-11.7) fL Neut % (Auto) (50.0-75.0) % Lymph % (Auto) (20.0-40.0) % [place] % (Auto) (0.0-10.0) % Eos % (Auto) (0.0-4.0) % Baso % (Auto) (0.0-2.0) % Neut # (Auto) (1.8-7.0) K/uL Lymph # (Auto) (1.0-4.3) K/uL [place] # (Auto) (0.0-0.8) K/uL Eos # (Auto) (0.0-0.7) K/uL Baso # (Auto) (0.0-0.2) K/uL Neutrophils % (Manual) (50-75) % Band Neutrophils % (0-2) % Lymphocytes % (Manual) (20-40) % Monocytes % (Manual) (0-10) % Nucleated RBC % (0-0) % Platelet Estimate (NORMAL) Large Platelets Poikilocytosis (manual Anisocytosis (manual) Tear Drop Cells Ovalocytes Sodium (132-148) mmol/L Potassium (3.6-5.2) mmol/L Chloride (98-107) mmol/L Carbon Dioxide (22-30) mmol/L Anion Gap (10-20) BUN (7-17) mg/dL Creatinine (0.7-1.2) mg/dL Est GFR ( Amer) Est GFR (Non-Af Amer) POC Glucose (mg/dL) 227 H 232 H 256 H (65-110) mg/dL Random Glucose (65-105) mg/dL Calcium (8.6-10.4) mg/dl Phosphorus (2.5-4.5) mg/dL Magnesium (1.6-2.3) mg/dL Ferritin ng/mL Total Bilirubin (0.2-1.3) mg/dL AST (14-36) U/L ALT (9-52) U/L Alkaline Phosphatase (38-126) U/L Total Protein (6.3-8.3) g/dL Albumin (3.5-5.0) g/dL Globulin (2.2-3.9) gm/dL Albumin/Globulin Ratio (1.0-2.1) CSF LDH (<=25) U/L Random Vancomycin ug/mL 11/07/18 11/07/18 11/07/18 Range/Units 20:20 18:58 18:02 WBC (4.8-10.8) K/uL RBC (3.80-5.20) Mil/uL Hgb (11.0-16.0) g/dL Hct (34.0-47.0) % MCV (81.0-99.0) fL MCH (27.0-31.0) pg MCHC (33.0-37.0) g/dL RDW (11.5-14.5) % Plt Count (130-400) K/uL MPV (7.2-11.7) fL Neut % (Auto) (50.0-75.0) % Lymph % (Auto) (20.0-40.0) % [place] % (Auto) (0.0-10.0) % Eos % (Auto) (0.0-4.0) % Baso % (Auto) (0.0-2.0) % Neut # (Auto) (1.8-7.0) K/uL Lymph # (Auto) (1.0-4.3) K/uL [place] # (Auto) (0.0-0.8) K/uL Eos # (Auto) (0.0-0.7) K/uL Baso # (Auto) (0.0-0.2) K/uL Neutrophils % (Manual) (50-75) % Band Neutrophils % (0-2) % Lymphocytes % (Manual) (20-40) % Monocytes % (Manual) (0-10) % Nucleated RBC % (0-0) % Platelet Estimate (NORMAL) Large Platelets Poikilocytosis (manual Anisocytosis (manual) Tear Drop Cells Ovalocytes Sodium (132-148) mmol/L Potassium (3.6-5.2) mmol/L Chloride (98-107) mmol/L Carbon Dioxide (22-30) mmol/L Anion Gap (10-20) BUN (7-17) mg/dL Creatinine (0.7-1.2) mg/dL Est GFR ( Amer) Est GFR (Non-Af Amer) POC Glucose (mg/dL) 289 H 293 H 334 H (65-110) mg/dL Random Glucose (65-105) mg/dL Calcium (8.6-10.4) mg/dl Phosphorus (2.5-4.5) mg/dL Magnesium (1.6-2.3) mg/dL Ferritin ng/mL Total Bilirubin (0.2-1.3) mg/dL AST (14-36) U/L ALT (9-52) U/L Alkaline Phosphatase (38-126) U/L Total Protein (6.3-8.3) g/dL Albumin (3.5-5.0) g/dL Globulin (2.2-3.9) gm/dL Albumin/Globulin Ratio (1.0-2.1) CSF LDH (<=25) U/L Random Vancomycin ug/mL 11/07/18 11/07/18 11/07/18 Range/Units 17:03 16:02 14:24 WBC (4.8-10.8) K/uL RBC (3.80-5.20) Mil/uL Hgb (11.0-16.0) g/dL Hct (34.0-47.0) % MCV (81.0-99.0) fL MCH (27.0-31.0) pg MCHC (33.0-37.0) g/dL RDW (11.5-14.5) % Plt Count (130-400) K/uL MPV (7.2-11.7) fL Neut % (Auto) (50.0-75.0) % Lymph % (Auto) (20.0-40.0) % [place] % (Auto) (0.0-10.0) % Eos % (Auto) (0.0-4.0) % Baso % (Auto) (0.0-2.0) % Neut # (Auto) (1.8-7.0) K/uL Lymph # (Auto) (1.0-4.3) K/uL [place] # (Auto) (0.0-0.8) K/uL Eos # (Auto) (0.0-0.7) K/uL Baso # (Auto) (0.0-0.2) K/uL Neutrophils % (Manual) (50-75) % Band Neutrophils % (0-2) % Lymphocytes % (Manual) (20-40) % Monocytes % (Manual) (0-10) % Nucleated RBC % (0-0) % Platelet Estimate (NORMAL) Large Platelets Poikilocytosis (manual Anisocytosis (manual) Tear Drop Cells Ovalocytes Sodium (132-148) mmol/L Potassium (3.6-5.2) mmol/L Chloride (98-107) mmol/L Carbon Dioxide (22-30) mmol/L Anion Gap (10-20) BUN (7-17) mg/dL Creatinine (0.7-1.2) mg/dL Est GFR ( Amer) Est GFR (Non-Af Amer) POC Glucose (mg/dL) 378 H 353 H (65-110) mg/dL Random Glucose (65-105) mg/dL Calcium (8.6-10.4) mg/dl Phosphorus (2.5-4.5) mg/dL Magnesium (1.6-2.3) mg/dL Ferritin 3990.0 ng/mL Total Bilirubin (0.2-1.3) mg/dL AST (14-36) U/L ALT (9-52) U/L Alkaline Phosphatase (38-126) U/L Total Protein (6.3-8.3) g/dL Albumin (3.5-5.0) g/dL Globulin (2.2-3.9) gm/dL Albumin/Globulin Ratio (1.0-2.1) CSF LDH (<=25) U/L Random Vancomycin ug/mL 11/05/18 Range/Units 10:54 WBC (4.8-10.8) K/uL RBC (3.80-5.20) Mil/uL Hgb (11.0-16.0) g/dL Hct (34.0-47.0) % MCV (81.0-99.0) fL MCH (27.0-31.0) pg MCHC (33.0-37.0) g/dL RDW (11.5-14.5) % Plt Count (130-400) K/uL MPV (7.2-11.7) fL Neut % (Auto) (50.0-75.0) % Lymph % (Auto) (20.0-40.0) % [place] % (Auto) (0.0-10.0) % Eos % (Auto) (0.0-4.0) % Baso % (Auto) (0.0-2.0) % Neut # (Auto) (1.8-7.0) K/uL Lymph # (Auto) (1.0-4.3) K/uL [place] # (Auto) (0.0-0.8) K/uL Eos # (Auto) (0.0-0.7) K/uL Baso # (Auto) (0.0-0.2) K/uL Neutrophils % (Manual) (50-75) % Band Neutrophils % (0-2) % Lymphocytes % (Manual) (20-40) % Monocytes % (Manual) (0-10) % Nucleated RBC % (0-0) % Platelet Estimate (NORMAL) Large Platelets Poikilocytosis (manual Anisocytosis (manual) Tear Drop Cells Ovalocytes Sodium (132-148) mmol/L Potassium (3.6-5.2) mmol/L Chloride (98-107) mmol/L Carbon Dioxide (22-30) mmol/L Anion Gap (10-20) BUN (7-17) mg/dL Creatinine (0.7-1.2) mg/dL Est GFR ( Amer) Est GFR (Non-Af Amer) POC Glucose (mg/dL) (65-110) mg/dL Random Glucose (65-105) mg/dL Calcium (8.6-10.4) mg/dl Phosphorus (2.5-4.5) mg/dL Magnesium (1.6-2.3) mg/dL Ferritin ng/mL Total Bilirubin (0.2-1.3) mg/dL AST (14-36) U/L ALT (9-52) U/L Alkaline Phosphatase (38-126) U/L Total Protein (6.3-8.3) g/dL Albumin (3.5-5.0) g/dL Globulin (2.2-3.9) gm/dL Albumin/Globulin Ratio (1.0-2.1) CSF LDH 37 H (<=25) U/L Random Vancomycin ug/mL Laboratory Results - last 24 hr 11/05/18 11/07/18 11/07/18 10:54 14:24 16:02 WBC RBC Hgb Hct MCV MCH MCHC RDW Plt Count MPV Neut % (Auto) Lymph % (Auto) [place] % (Auto) Eos % (Auto) Baso % (Auto) Neut # (Auto) Lymph # (Auto) [place] # (Auto) Eos # (Auto) Baso # (Auto) Neutrophils % (Manual) Band Neutrophils % Lymphocytes % (Manual) Monocytes % (Manual) Nucleated RBC % Platelet Estimate Large Platelets Poikilocytosis (manual Anisocytosis (manual) Tear Drop Cells Ovalocytes Sodium Potassium Chloride Carbon Dioxide Anion Gap BUN Creatinine Est GFR ( Amer) Est GFR (Non-Af Amer) POC Glucose (mg/dL) 353 H Random Glucose Calcium Phosphorus Magnesium Ferritin 3990.0 Total Bilirubin AST ALT Alkaline Phosphatase Total Protein Albumin Globulin Albumin/Globulin Ratio CSF LDH 37 H Random Vancomycin 11/07/18 11/07/18 11/07/18 17:03 18:02 18:58 WBC RBC Hgb Hct MCV MCH MCHC RDW Plt Count MPV Neut % (Auto) Lymph % (Auto) [place] % (Auto) Eos % (Auto) Baso % (Auto) Neut # (Auto) Lymph # (Auto) [place] # (Auto) Eos # (Auto) Baso # (Auto) Neutrophils % (Manual) Band Neutrophils % Lymphocytes % (Manual) Monocytes % (Manual) Nucleated RBC % Platelet Estimate Large Platelets Poikilocytosis (manual Anisocytosis (manual) Tear Drop Cells Ovalocytes Sodium Potassium Chloride Carbon Dioxide Anion Gap BUN Creatinine Est GFR ( Amer) Est GFR (Non-Af Amer) POC Glucose (mg/dL) 378 H 334 H 293 H Random Glucose Calcium Phosphorus Magnesium Ferritin Total Bilirubin AST ALT Alkaline Phosphatase Total Protein Albumin Globulin Albumin/Globulin Ratio CSF LDH Random Vancomycin 11/07/18 11/07/18 11/07/18 20:20 21:07 22:26 WBC RBC Hgb Hct MCV MCH MCHC RDW Plt Count MPV Neut % (Auto) Lymph % (Auto) [place] % (Auto) Eos % (Auto) Baso % (Auto) Neut # (Auto) Lymph # (Auto) [place] # (Auto) Eos # (Auto) Baso # (Auto) Neutrophils % (Manual) Band Neutrophils % Lymphocytes % (Manual) Monocytes % (Manual) Nucleated RBC % Platelet Estimate Large Platelets Poikilocytosis (manual Anisocytosis (manual) Tear Drop Cells Ovalocytes Sodium Potassium Chloride Carbon Dioxide Anion Gap BUN Creatinine Est GFR ( Amer) Est GFR (Non-Af Amer) POC Glucose (mg/dL) 289 H 256 H 232 H Random Glucose Calcium Phosphorus Magnesium Ferritin Total Bilirubin AST ALT Alkaline Phosphatase Total Protein Albumin Globulin Albumin/Globulin Ratio CSF LDH Random Vancomycin 11/07/18 11/08/18 11/08/18 23:42 00:46 01:55 WBC RBC Hgb Hct MCV MCH MCHC RDW Plt Count MPV Neut % (Auto) Lymph % (Auto) [place] % (Auto) Eos % (Auto) Baso % (Auto) Neut # (Auto) Lymph # (Auto) [place] # (Auto) Eos # (Auto) Baso # (Auto) Neutrophils % (Manual) Band Neutrophils % Lymphocytes % (Manual) Monocytes % (Manual) Nucleated RBC % Platelet Estimate Large Platelets Poikilocytosis (manual Anisocytosis (manual) Tear Drop Cells Ovalocytes Sodium Potassium Chloride Carbon Dioxide Anion Gap BUN Creatinine Est GFR ( Amer) Est GFR (Non-Af Amer) POC Glucose (mg/dL) 227 H 209 H 234 H Random Glucose Calcium Phosphorus Magnesium Ferritin Total Bilirubin AST ALT Alkaline Phosphatase Total Protein Albumin Globulin Albumin/Globulin Ratio CSF LDH Random Vancomycin 11/08/18 11/08/18 11/08/18 02:50 03:59 05:05 WBC RBC Hgb Hct MCV MCH MCHC RDW Plt Count MPV Neut % (Auto) Lymph % (Auto) [place] % (Auto) Eos % (Auto) Baso % (Auto) Neut # (Auto) Lymph # (Auto) [place] # (Auto) Eos # (Auto) Baso # (Auto) Neutrophils % (Manual) Band Neutrophils % Lymphocytes % (Manual) Monocytes % (Manual) Nucleated RBC % Platelet Estimate Large Platelets Poikilocytosis (manual Anisocytosis (manual) Tear Drop Cells Ovalocytes Sodium Potassium Chloride Carbon Dioxide Anion Gap BUN Creatinine Est GFR ( Amer) Est GFR (Non-Af Amer) POC Glucose (mg/dL) 215 H 237 H 217 H Random Glucose Calcium Phosphorus Magnesium Ferritin Total Bilirubin AST ALT Alkaline Phosphatase Total Protein Albumin Globulin Albumin/Globulin Ratio CSF LDH Random Vancomycin 11/08/18 11/08/18 11/08/18 05:47 05:47 05:49 WBC 10.5 RBC 3.23 L Hgb 9.1 L Hct 29.2 L MCV 90.5 MCH 28.3 MCHC 31.2 L RDW 20.7 H Plt Count 160 MPV 10.8 Neut % (Auto) 89.5 H Lymph % (Auto) 6.0 L [place] % (Auto) 4.2 Eos % (Auto) 0.0 Baso % (Auto) 0.3 Neut # (Auto) 9.4 H Lymph # (Auto) 0.6 L [place] # (Auto) 0.4 Eos # (Auto) 0.0 Baso # (Auto) 0.0 Neutrophils % (Manual) 88 H Band Neutrophils % 1 Lymphocytes % (Manual) 6 L Monocytes % (Manual) 5 Nucleated RBC % 1 H Platelet Estimate Normal Large Platelets Present Poikilocytosis (manual Slight Anisocytosis (manual) Moderate Tear Drop Cells Slight Ovalocytes Slight Sodium 142 Potassium 3.6 Chloride 108 H Carbon Dioxide 20 L Anion Gap 18 BUN 71 H Creatinine 5.5 H Est GFR ( Amer) 9 Est GFR (Non-Af Amer) 8 POC Glucose (mg/dL) Random Glucose 200 H D Calcium 9.2 Phosphorus 3.7 Magnesium 2.2 Ferritin Total Bilirubin 0.5 AST 63 H ALT 34 Alkaline Phosphatase 142 H Total Protein 5.9 L Albumin 2.9 L Globulin 3.0 Albumin/Globulin Ratio 1.0 CSF LDH Random Vancomycin 16.1 11/08/18 11/08/18 11/08/18 06:29 07:08 08:17 WBC RBC Hgb Hct MCV MCH MCHC RDW Plt Count MPV Neut % (Auto) Lymph % (Auto) [place] % (Auto) Eos % (Auto) Baso % (Auto) Neut # (Auto) Lymph # (Auto) [place] # (Auto) Eos # (Auto) Baso # (Auto) Neutrophils % (Manual) Band Neutrophils % Lymphocytes % (Manual) Monocytes % (Manual) Nucleated RBC % Platelet Estimate Large Platelets Poikilocytosis (manual Anisocytosis (manual) Tear Drop Cells Ovalocytes Sodium Potassium Chloride Carbon Dioxide Anion Gap BUN Creatinine Est GFR ( Amer) Est GFR (Non-Af Amer) POC Glucose (mg/dL) 181 H 168 H 107 Random Glucose Calcium Phosphorus Magnesium Ferritin Total Bilirubin AST ALT Alkaline Phosphatase Total Protein Albumin Globulin Albumin/Globulin Ratio CSF LDH Random Vancomycin 11/08/18 11/08/18 11/08/18 08:51 09:21 10:02 WBC RBC Hgb Hct MCV MCH MCHC RDW Plt Count MPV Neut % (Auto) Lymph % (Auto) [place] % (Auto) Eos % (Auto) Baso % (Auto) Neut # (Auto) Lymph # (Auto) [place] # (Auto) Eos # (Auto) Baso # (Auto) Neutrophils % (Manual) Band Neutrophils % Lymphocytes % (Manual) Monocytes % (Manual) Nucleated RBC % Platelet Estimate Large Platelets Poikilocytosis (manual Anisocytosis (manual) Tear Drop Cells Ovalocytes Sodium Potassium Chloride Carbon Dioxide Anion Gap BUN Creatinine Est GFR ( Amer) Est GFR (Non-Af Amer) POC Glucose (mg/dL) 73 183 H 137 H Random Glucose Calcium Phosphorus Magnesium Ferritin Total Bilirubin AST ALT Alkaline Phosphatase Total Protein Albumin Globulin Albumin/Globulin Ratio CSF LDH Random Vancomycin 11/08/18 10:57 WBC RBC Hgb Hct MCV MCH MCHC RDW Plt Count MPV Neut % (Auto) Lymph % (Auto) [place] % (Auto) Eos % (Auto) Baso % (Auto) Neut # (Auto) Lymph # (Auto) [place] # (Auto) Eos # (Auto) Baso # (Auto) Neutrophils % (Manual) Band Neutrophils % Lymphocytes % (Manual) Monocytes % (Manual) Nucleated RBC % Platelet Estimate Large Platelets Poikilocytosis (manual Anisocytosis (manual) Tear Drop Cells Ovalocytes Sodium Potassium Chloride Carbon Dioxide Anion Gap BUN Creatinine Est GFR ( Amer) Est GFR (Non-Af Amer) POC Glucose (mg/dL) 133 H Random Glucose Calcium Phosphorus Magnesium Ferritin Total Bilirubin AST ALT Alkaline Phosphatase Total Protein Albumin Globulin Albumin/Globulin Ratio CSF LDH Random Vancomycin Radiology Impressions: Radiology Impressions Chest X-Ray 11/08/18 13:00 IMPRESSION: No acute infiltrate pleural effusion identified. Stable tracheostomy tube identified. Left CVL is been retracted somewhat, terminating at SVC/brachiocephalic vein junction. Fingerstick Blood Sugar Results: 159 <Corona Swartz - Last Filed: 11/08/18 18:12> CCU Objective - Vital Signs / Intake & Output Vital Signs (Last 4 hours): Vital Signs Temp Pulse Resp BP Pulse Ox 11/08/18 17:00 81 15 100 11/08/18 16:18 80 13 129/87 98 11/08/18 16:16 81 16 142/87 98 11/08/18 16:00 98.1 F 81 13 129/87 99 11/08/18 15:41 82 13 181/92 H 100 11/08/18 15:20 73 18 185/88 H 99 11/08/18 15:18 75 11/08/18 14:18 74 15 176/83 H 98 Intake and Output (Last 8hrs): Intake & Output 11/08/18 11/08/18 11/08/18 06:59 14:59 22:59 Intake Total 310 352 330 Output Total 90 1300 1455 Balance 220 -861 -1124 Weight 235 lb 4 oz Intake: IV 30 90 Intake, IV Amount 30 2 110 Left Internal Jugular 30 2 110 Tube Feeding 250 260 120 Other 100 Output: Urine 1300 1300 Urine, Voided 1300 1300 Stool 90 0 155 - Medications Active Medications: Active Medications Generic Name Dose Route Start Last Admin Trade Name Freq PRN Reason Stop Dose Admin Acetaminophen 650 mg 10/25/18 03:30 11/05/18 09:09 Tylenol 650mg/20.3ml Solution Ud PO 650 mg Q6 PRN Administration pain+fever Amlodipine Besylate 5 mg 11/07/18 11:00 11/08/18 14:08 Norvasc PO 5 mg DAILY JOCELYN Administration Aspirin 81 mg 10/08/18 10:00 11/08/18 10:24 Aspirin Chewable PO 81 mg DAILY JOCELYN Administration Dextrose 0 ml 11/01/18 12:14 Dextrose 50% Inj IV STAT PRN Hypoglycemia Protocol Protocol Dextrose 0 gm 11/01/18 12:14 Glutose 15 PO ONCE PRN Hypoglycemia Protocol Protocol Dextrose 0 ml 11/07/18 11:00 Dextrose 50% Inj IV STAT PRN Hypoglycemia Protocol Protocol Dextrose 0 gm 11/07/18 11:00 Glutose 15 PO ONCE PRN Hypoglycemia Protocol Protocol Epoetin Dedrick 10,000 unit 11/01/18 14:00 11/08/18 10:33 Procrit IV 10,000 unit TTS JOCELYN Administration Glucagon 0 mg 11/01/18 12:14 Glucagen Diagnostic Kit IM STAT PRN Hypoglycemia Protocol Protocol Glucagon 0 mg 11/07/18 11:00 Glucagen Diagnostic Kit IM STAT PRN Hypoglycemia Protocol Protocol Heparin Sodium (Porcine) 1,000 units 11/08/18 07:45 Heparin (For Dialysis) IVP ONCE JOCELYN Meropenem 500 mg/ Sodium 100 mls @ 100 mls/hr 10/30/18 15:30 11/08/18 13:39 Chloride IVPB 100 mls/hr DAILY JOCELYN Administration Protocol Micafungin Sodium 100 mg/ 100 mls @ 100 mls/hr 11/04/18 19:00 11/07/18 18:03 Sodium Chloride IV 100 mls/hr Q24H JOCELYN Administration Protocol Metronidazole 500 mg in 100 mls @ 100 mls/hr 11/06/18 21:30 11/08/18 16:12 Flagyl IVPB 100 mls/hr Q8H JOCELYN Administration Protocol Dextrose 1,000 mls @ 0 mls/hr 11/07/18 11:00 Dextrose 5% In Water 1000 Ml IV .Q0M PRN Hypoglycemia Protocol Protocol Per Protocol Vancomycin HCl 500 mg/ Sodium 100 mls @ 100 mls/hr 11/08/18 10:00 Chloride IVPB TTS JOCELYN Protocol Insulin Aspart 0 unit 10/31/18 12:00 11/08/18 18:00 Novolog SC 8 u Q6H JOCELYN Administration Protocol Insulin Detemir 40 unit 10/28/18 22:00 11/06/18 21:52 Levemir SC 40 u HS JOCELYN Administration Insulin Detemir 30 unit 11/02/18 10:00 11/07/18 09:45 Levemir SC 30 u DAILY JOCELYN Administration Levetiracetam 1,000 mg 10/28/18 18:00 11/08/18 10:27 Keppra PO 1,000 mg BID JOCELYN Administration Levothyroxine Sodium 50 mcg 09/29/18 08:00 11/08/18 05:15 Synthroid PO 50 mcg 0600 JOCELYN Administration Pantoprazole Sodium 40 mg 10/09/18 06:00 11/08/18 05:15 Protonix Susp PO 40 mg 0600 JOCELYN Administration Rosuvastatin Calcium 10 mg 09/30/18 22:00 11/07/18 22:07 Crestor PO 10 mg HS JOCELYN Administration Saccharomyces Boulardii 250 mg 11/01/18 10:00 11/08/18 16:19 Florastor PO 250 mg TID JOCELYN Administration - Patient Studies Lab Studies: Microbiology Studies 11/05/18 10:54 Gram Stain - Final Cerebral Spinal Fluid CSF Culture - Preliminary NO GROWTH AFTER 3 DAYS Lab Studies 11/08/18 11/08/18 11/08/18 Range/Units 11:57 10:57 10:02 WBC (4.8-10.8) K/uL RBC (3.80-5.20) Mil/uL Hgb (11.0-16.0) g/dL Hct (34.0-47.0) % MCV (81.0-99.0) fL MCH (27.0-31.0) pg MCHC (33.0-37.0) g/dL RDW (11.5-14.5) % Plt Count (130-400) K/uL MPV (7.2-11.7) fL Neut % (Auto) (50.0-75.0) % Lymph % (Auto) (20.0-40.0) % [place] % (Auto) (0.0-10.0) % Eos % (Auto) (0.0-4.0) % Baso % (Auto) (0.0-2.0) % Neut # (Auto) (1.8-7.0) K/uL Lymph # (Auto) (1.0-4.3) K/uL [place] # (Auto) (0.0-0.8) K/uL Eos # (Auto) (0.0-0.7) K/uL Baso # (Auto) (0.0-0.2) K/uL Neutrophils % (Manual) (50-75) % Band Neutrophils % (0-2) % Lymphocytes % (Manual) (20-40) % Monocytes % (Manual) (0-10) % Nucleated RBC % (0-0) % Platelet Estimate (NORMAL) Large Platelets Poikilocytosis (manual Anisocytosis (manual) Tear Drop Cells Ovalocytes Sodium (132-148) mmol/L Potassium (3.6-5.2) mmol/L Chloride (98-107) mmol/L Carbon Dioxide (22-30) mmol/L Anion Gap (10-20) BUN (7-17) mg/dL Creatinine (0.7-1.2) mg/dL Est GFR ( Amer) Est GFR (Non-Af Amer) POC Glucose (mg/dL) 159 H 133 H 137 H (65-110) mg/dL Random Glucose (65-105) mg/dL Calcium (8.6-10.4) mg/dl Phosphorus (2.5-4.5) mg/dL Magnesium (1.6-2.3) mg/dL Total Bilirubin (0.2-1.3) mg/dL AST (14-36) U/L ALT (9-52) U/L Alkaline Phosphatase (38-126) U/L Total Protein (6.3-8.3) g/dL Albumin (3.5-5.0) g/dL Globulin (2.2-3.9) gm/dL Albumin/Globulin Ratio (1.0-2.1) CSF LDH (<=25) U/L Random Vancomycin ug/mL 11/08/18 11/08/18 11/08/18 Range/Units 09:21 08:51 08:17 WBC (4.8-10.8) K/uL RBC (3.80-5.20) Mil/uL Hgb (11.0-16.0) g/dL Hct (34.0-47.0) % MCV (81.0-99.0) fL MCH (27.0-31.0) pg MCHC (33.0-37.0) g/dL RDW (11.5-14.5) % Plt Count (130-400) K/uL MPV (7.2-11.7) fL Neut % (Auto) (50.0-75.0) % Lymph % (Auto) (20.0-40.0) % [place] % (Auto) (0.0-10.0) % Eos % (Auto) (0.0-4.0) % Baso % (Auto) (0.0-2.0) % Neut # (Auto) (1.8-7.0) K/uL Lymph # (Auto) (1.0-4.3) K/uL [place] # (Auto) (0.0-0.8) K/uL Eos # (Auto) (0.0-0.7) K/uL Baso # (Auto) (0.0-0.2) K/uL Neutrophils % (Manual) (50-75) % Band Neutrophils % (0-2) % Lymphocytes % (Manual) (20-40) % Monocytes % (Manual) (0-10) % Nucleated RBC % (0-0) % Platelet Estimate (NORMAL) Large Platelets Poikilocytosis (manual Anisocytosis (manual) Tear Drop Cells Ovalocytes Sodium (132-148) mmol/L Potassium (3.6-5.2) mmol/L Chloride (98-107) mmol/L Carbon Dioxide (22-30) mmol/L Anion Gap (10-20) BUN (7-17) mg/dL Creatinine (0.7-1.2) mg/dL Est GFR ( Amer) Est GFR (Non-Af Amer) POC Glucose (mg/dL) 183 H 73 107 (65-110) mg/dL Random Glucose (65-105) mg/dL Calcium (8.6-10.4) mg/dl Phosphorus (2.5-4.5) mg/dL Magnesium (1.6-2.3) mg/dL Total Bilirubin (0.2-1.3) mg/dL AST (14-36) U/L ALT (9-52) U/L Alkaline Phosphatase (38-126) U/L Total Protein (6.3-8.3) g/dL Albumin (3.5-5.0) g/dL Globulin (2.2-3.9) gm/dL Albumin/Globulin Ratio (1.0-2.1) CSF LDH (<=25) U/L Random Vancomycin ug/mL 11/08/18 11/08/18 11/08/18 Range/Units 07:08 06:29 05:49 WBC 10.5 (4.8-10.8) K/uL RBC 3.23 L (3.80-5.20) Mil/uL Hgb 9.1 L (11.0-16.0) g/dL Hct 29.2 L (34.0-47.0) % MCV 90.5 (81.0-99.0) fL MCH 28.3 (27.0-31.0) pg MCHC 31.2 L (33.0-37.0) g/dL RDW 20.7 H (11.5-14.5) % Plt Count 160 (130-400) K/uL MPV 10.8 (7.2-11.7) fL Neut % (Auto) 89.5 H (50.0-75.0) % Lymph % (Auto) 6.0 L (20.0-40.0) % [place] % (Auto) 4.2 (0.0-10.0) % Eos % (Auto) 0.0 (0.0-4.0) % Baso % (Auto) 0.3 (0.0-2.0) % Neut # (Auto) 9.4 H (1.8-7.0) K/uL Lymph # (Auto) 0.6 L (1.0-4.3) K/uL [place] # (Auto) 0.4 (0.0-0.8) K/uL Eos # (Auto) 0.0 (0.0-0.7) K/uL Baso # (Auto) 0.0 (0.0-0.2) K/uL Neutrophils % (Manual) 88 H (50-75) % Band Neutrophils % 1 (0-2) % Lymphocytes % (Manual) 6 L (20-40) % Monocytes % (Manual) 5 (0-10) % Nucleated RBC % 1 H (0-0) % Platelet Estimate Normal (NORMAL) Large Platelets Present Poikilocytosis (manual Slight Anisocytosis (manual) Moderate Tear Drop Cells Slight Ovalocytes Slight Sodium (132-148) mmol/L Potassium (3.6-5.2) mmol/L Chloride (98-107) mmol/L Carbon Dioxide (22-30) mmol/L Anion Gap (10-20) BUN (7-17) mg/dL Creatinine (0.7-1.2) mg/dL Est GFR ( Amer) Est GFR (Non-Af Amer) POC Glucose (mg/dL) 168 H 181 H (65-110) mg/dL Random Glucose (65-105) mg/dL Calcium (8.6-10.4) mg/dl Phosphorus (2.5-4.5) mg/dL Magnesium (1.6-2.3) mg/dL Total Bilirubin (0.2-1.3) mg/dL AST (14-36) U/L ALT (9-52) U/L Alkaline Phosphatase (38-126) U/L Total Protein (6.3-8.3) g/dL Albumin (3.5-5.0) g/dL Globulin (2.2-3.9) gm/dL Albumin/Globulin Ratio (1.0-2.1) CSF LDH (<=25) U/L Random Vancomycin ug/mL 11/08/18 11/08/18 11/08/18 Range/Units 05:47 05:47 05:05 WBC (4.8-10.8) K/uL RBC (3.80-5.20) Mil/uL Hgb (11.0-16.0) g/dL Hct (34.0-47.0) % MCV (81.0-99.0) fL MCH (27.0-31.0) pg MCHC (33.0-37.0) g/dL RDW (11.5-14.5) % Plt Count (130-400) K/uL MPV (7.2-11.7) fL Neut % (Auto) (50.0-75.0) % Lymph % (Auto) (20.0-40.0) % [place] % (Auto) (0.0-10.0) % Eos % (Auto) (0.0-4.0) % Baso % (Auto) (0.0-2.0) % Neut # (Auto) (1.8-7.0) K/uL Lymph # (Auto) (1.0-4.3) K/uL [place] # (Auto) (0.0-0.8) K/uL Eos # (Auto) (0.0-0.7) K/uL Baso # (Auto) (0.0-0.2) K/uL Neutrophils % (Manual) (50-75) % Band Neutrophils % (0-2) % Lymphocytes % (Manual) (20-40) % Monocytes % (Manual) (0-10) % Nucleated RBC % (0-0) % Platelet Estimate (NORMAL) Large Platelets Poikilocytosis (manual Anisocytosis (manual) Tear Drop Cells Ovalocytes Sodium 142 (132-148) mmol/L Potassium 3.6 (3.6-5.2) mmol/L Chloride 108 H (98-107) mmol/L Carbon Dioxide 20 L (22-30) mmol/L Anion Gap 18 (10-20) BUN 71 H (7-17) mg/dL Creatinine 5.5 H (0.7-1.2) mg/dL Est GFR ( Amer) 9 Est GFR (Non-Af Amer) 8 POC Glucose (mg/dL) 217 H (65-110) mg/dL Random Glucose 200 H D (65-105) mg/dL Calcium 9.2 (8.6-10.4) mg/dl Phosphorus 3.7 (2.5-4.5) mg/dL Magnesium 2.2 (1.6-2.3) mg/dL Total Bilirubin 0.5 (0.2-1.3) mg/dL AST 63 H (14-36) U/L ALT 34 (9-52) U/L Alkaline Phosphatase 142 H (38-126) U/L Total Protein 5.9 L (6.3-8.3) g/dL Albumin 2.9 L (3.5-5.0) g/dL Globulin 3.0 (2.2-3.9) gm/dL Albumin/Globulin Ratio 1.0 (1.0-2.1) CSF LDH (<=25) U/L Random Vancomycin 16.1 ug/mL 11/08/18 11/08/18 11/08/18 Range/Units 03:59 02:50 01:55 WBC (4.8-10.8) K/uL RBC (3.80-5.20) Mil/uL Hgb (11.0-16.0) g/dL Hct (34.0-47.0) % MCV (81.0-99.0) fL MCH (27.0-31.0) pg MCHC (33.0-37.0) g/dL RDW (11.5-14.5) % Plt Count (130-400) K/uL MPV (7.2-11.7) fL Neut % (Auto) (50.0-75.0) % Lymph % (Auto) (20.0-40.0) % [place] % (Auto) (0.0-10.0) % Eos % (Auto) (0.0-4.0) % Baso % (Auto) (0.0-2.0) % Neut # (Auto) (1.8-7.0) K/uL Lymph # (Auto) (1.0-4.3) K/uL [place] # (Auto) (0.0-0.8) K/uL Eos # (Auto) (0.0-0.7) K/uL Baso # (Auto) (0.0-0.2) K/uL Neutrophils % (Manual) (50-75) % Band Neutrophils % (0-2) % Lymphocytes % (Manual) (20-40) % Monocytes % (Manual) (0-10) % Nucleated RBC % (0-0) % Platelet Estimate (NORMAL) Large Platelets Poikilocytosis (manual Anisocytosis (manual) Tear Drop Cells Ovalocytes Sodium (132-148) mmol/L Potassium (3.6-5.2) mmol/L Chloride (98-107) mmol/L Carbon Dioxide (22-30) mmol/L Anion Gap (10-20) BUN (7-17) mg/dL Creatinine (0.7-1.2) mg/dL Est GFR ( Amer) Est GFR (Non-Af Amer) POC Glucose (mg/dL) 237 H 215 H 234 H (65-110) mg/dL Random Glucose (65-105) mg/dL Calcium (8.6-10.4) mg/dl Phosphorus (2.5-4.5) mg/dL Magnesium (1.6-2.3) mg/dL Total Bilirubin (0.2-1.3) mg/dL AST (14-36) U/L ALT (9-52) U/L Alkaline Phosphatase (38-126) U/L Total Protein (6.3-8.3) g/dL Albumin (3.5-5.0) g/dL Globulin (2.2-3.9) gm/dL Albumin/Globulin Ratio (1.0-2.1) CSF LDH (<=25) U/L Random Vancomycin ug/mL 11/08/18 11/07/18 11/07/18 Range/Units 00:46 23:42 22:26 WBC (4.8-10.8) K/uL RBC (3.80-5.20) Mil/uL Hgb (11.0-16.0) g/dL Hct (34.0-47.0) % MCV (81.0-99.0) fL MCH (27.0-31.0) pg MCHC (33.0-37.0) g/dL RDW (11.5-14.5) % Plt Count (130-400) K/uL MPV (7.2-11.7) fL Neut % (Auto) (50.0-75.0) % Lymph % (Auto) (20.0-40.0) % [place] % (Auto) (0.0-10.0) % Eos % (Auto) (0.0-4.0) % Baso % (Auto) (0.0-2.0) % Neut # (Auto) (1.8-7.0) K/uL Lymph # (Auto) (1.0-4.3) K/uL [place] # (Auto) (0.0-0.8) K/uL Eos # (Auto) (0.0-0.7) K/uL Baso # (Auto) (0.0-0.2) K/uL Neutrophils % (Manual) (50-75) % Band Neutrophils % (0-2) % Lymphocytes % (Manual) (20-40) % Monocytes % (Manual) (0-10) % Nucleated RBC % (0-0) % Platelet Estimate (NORMAL) Large Platelets Poikilocytosis (manual Anisocytosis (manual) Tear Drop Cells Ovalocytes Sodium (132-148) mmol/L Potassium (3.6-5.2) mmol/L Chloride (98-107) mmol/L Carbon Dioxide (22-30) mmol/L Anion Gap (10-20) BUN (7-17) mg/dL Creatinine (0.7-1.2) mg/dL Est GFR ( Amer) Est GFR (Non-Af Amer) POC Glucose (mg/dL) 209 H 227 H 232 H (65-110) mg/dL Random Glucose (65-105) mg/dL Calcium (8.6-10.4) mg/dl Phosphorus (2.5-4.5) mg/dL Magnesium (1.6-2.3) mg/dL Total Bilirubin (0.2-1.3) mg/dL AST (14-36) U/L ALT (9-52) U/L Alkaline Phosphatase (38-126) U/L Total Protein (6.3-8.3) g/dL Albumin (3.5-5.0) g/dL Globulin (2.2-3.9) gm/dL Albumin/Globulin Ratio (1.0-2.1) CSF LDH (<=25) U/L Random Vancomycin ug/mL 11/07/18 11/07/18 11/07/18 Range/Units 21:07 20:20 18:58 WBC (4.8-10.8) K/uL RBC (3.80-5.20) Mil/uL Hgb (11.0-16.0) g/dL Hct (34.0-47.0) % MCV (81.0-99.0) fL MCH (27.0-31.0) pg MCHC (33.0-37.0) g/dL RDW (11.5-14.5) % Plt Count (130-400) K/uL MPV (7.2-11.7) fL Neut % (Auto) (50.0-75.0) % Lymph % (Auto) (20.0-40.0) % [place] % (Auto) (0.0-10.0) % Eos % (Auto) (0.0-4.0) % Baso % (Auto) (0.0-2.0) % Neut # (Auto) (1.8-7.0) K/uL Lymph # (Auto) (1.0-4.3) K/uL [place] # (Auto) (0.0-0.8) K/uL Eos # (Auto) (0.0-0.7) K/uL Baso # (Auto) (0.0-0.2) K/uL Neutrophils % (Manual) (50-75) % Band Neutrophils % (0-2) % Lymphocytes % (Manual) (20-40) % Monocytes % (Manual) (0-10) % Nucleated RBC % (0-0) % Platelet Estimate (NORMAL) Large Platelets Poikilocytosis (manual Anisocytosis (manual) Tear Drop Cells Ovalocytes Sodium (132-148) mmol/L Potassium (3.6-5.2) mmol/L Chloride (98-107) mmol/L Carbon Dioxide (22-30) mmol/L Anion Gap (10-20) BUN (7-17) mg/dL Creatinine (0.7-1.2) mg/dL Est GFR ( Amer) Est GFR (Non-Af Amer) POC Glucose (mg/dL) 256 H 289 H 293 H (65-110) mg/dL Random Glucose (65-105) mg/dL Calcium (8.6-10.4) mg/dl Phosphorus (2.5-4.5) mg/dL Magnesium (1.6-2.3) mg/dL Total Bilirubin (0.2-1.3) mg/dL AST (14-36) U/L ALT (9-52) U/L Alkaline Phosphatase (38-126) U/L Total Protein (6.3-8.3) g/dL Albumin (3.5-5.0) g/dL Globulin (2.2-3.9) gm/dL Albumin/Globulin Ratio (1.0-2.1) CSF LDH (<=25) U/L Random Vancomycin ug/mL 11/07/18 11/05/18 Range/Units 18:02 10:54 WBC (4.8-10.8) K/uL RBC (3.80-5.20) Mil/uL Hgb (11.0-16.0) g/dL Hct (34.0-47.0) % MCV (81.0-99.0) fL MCH (27.0-31.0) pg MCHC (33.0-37.0) g/dL RDW (11.5-14.5) % Plt Count (130-400) K/uL MPV (7.2-11.7) fL Neut % (Auto) (50.0-75.0) % Lymph % (Auto) (20.0-40.0) % [place] % (Auto) (0.0-10.0) % Eos % (Auto) (0.0-4.0) % Baso % (Auto) (0.0-2.0) % Neut # (Auto) (1.8-7.0) K/uL Lymph # (Auto) (1.0-4.3) K/uL [place] # (Auto) (0.0-0.8) K/uL Eos # (Auto) (0.0-0.7) K/uL Baso # (Auto) (0.0-0.2) K/uL Neutrophils % (Manual) (50-75) % Band Neutrophils % (0-2) % Lymphocytes % (Manual) (20-40) % Monocytes % (Manual) (0-10) % Nucleated RBC % (0-0) % Platelet Estimate (NORMAL) Large Platelets Poikilocytosis (manual Anisocytosis (manual) Tear Drop Cells Ovalocytes Sodium (132-148) mmol/L Potassium (3.6-5.2) mmol/L Chloride (98-107) mmol/L Carbon Dioxide (22-30) mmol/L Anion Gap (10-20) BUN (7-17) mg/dL Creatinine (0.7-1.2) mg/dL Est GFR ( Amer) Est GFR (Non-Af Amer) POC Glucose (mg/dL) 334 H (65-110) mg/dL Random Glucose (65-105) mg/dL Calcium (8.6-10.4) mg/dl Phosphorus (2.5-4.5) mg/dL Magnesium (1.6-2.3) mg/dL Total Bilirubin (0.2-1.3) mg/dL AST (14-36) U/L ALT (9-52) U/L Alkaline Phosphatase (38-126) U/L Total Protein (6.3-8.3) g/dL Albumin (3.5-5.0) g/dL Globulin (2.2-3.9) gm/dL Albumin/Globulin Ratio (1.0-2.1) CSF LDH 37 H (<=25) U/L Random Vancomycin ug/mL Laboratory Results - last 24 hr 11/05/18 11/07/18 11/07/18 10:54 18:02 18:58 WBC RBC Hgb Hct MCV MCH MCHC RDW Plt Count MPV Neut % (Auto) Lymph % (Auto) [place] % (Auto) Eos % (Auto) Baso % (Auto) Neut # (Auto) Lymph # (Auto) [place] # (Auto) Eos # (Auto) Baso # (Auto) Neutrophils % (Manual) Band Neutrophils % Lymphocytes % (Manual) Monocytes % (Manual) Nucleated RBC % Platelet Estimate Large Platelets Poikilocytosis (manual Anisocytosis (manual) Tear Drop Cells Ovalocytes Sodium Potassium Chloride Carbon Dioxide Anion Gap BUN Creatinine Est GFR ( Amer) Est GFR (Non-Af Amer) POC Glucose (mg/dL) 334 H 293 H Random Glucose Calcium Phosphorus Magnesium Total Bilirubin AST ALT Alkaline Phosphatase Total Protein Albumin Globulin Albumin/Globulin Ratio CSF LDH 37 H Random Vancomycin 11/07/18 11/07/18 11/07/18 20:20 21:07 22:26 WBC RBC Hgb Hct MCV MCH MCHC RDW Plt Count MPV Neut % (Auto) Lymph % (Auto) [place] % (Auto) Eos % (Auto) Baso % (Auto) Neut # (Auto) Lymph # (Auto) [place] # (Auto) Eos # (Auto) Baso # (Auto) Neutrophils % (Manual) Band Neutrophils % Lymphocytes % (Manual) Monocytes % (Manual) Nucleated RBC % Platelet Estimate Large Platelets Poikilocytosis (manual Anisocytosis (manual) Tear Drop Cells Ovalocytes Sodium Potassium Chloride Carbon Dioxide Anion Gap BUN Creatinine Est GFR ( Amer) Est GFR (Non-Af Amer) POC Glucose (mg/dL) 289 H 256 H 232 H Random Glucose Calcium Phosphorus Magnesium Total Bilirubin AST ALT Alkaline Phosphatase Total Protein Albumin Globulin Albumin/Globulin Ratio CSF LDH Random Vancomycin 11/07/18 11/08/18 11/08/18 23:42 00:46 01:55 WBC RBC Hgb Hct MCV MCH MCHC RDW Plt Count MPV Neut % (Auto) Lymph % (Auto) [place] % (Auto) Eos % (Auto) Baso % (Auto) Neut # (Auto) Lymph # (Auto) [place] # (Auto) Eos # (Auto) Baso # (Auto) Neutrophils % (Manual) Band Neutrophils % Lymphocytes % (Manual) Monocytes % (Manual) Nucleated RBC % Platelet Estimate Large Platelets Poikilocytosis (manual Anisocytosis (manual) Tear Drop Cells Ovalocytes Sodium Potassium Chloride Carbon Dioxide Anion Gap BUN Creatinine Est GFR ( Amer) Est GFR (Non-Af Amer) POC Glucose (mg/dL) 227 H 209 H 234 H Random Glucose Calcium Phosphorus Magnesium Total Bilirubin AST ALT Alkaline Phosphatase Total Protein Albumin Globulin Albumin/Globulin Ratio CSF LDH Random Vancomycin 11/08/18 11/08/18 11/08/18 02:50 03:59 05:05 WBC RBC Hgb Hct MCV MCH MCHC RDW Plt Count MPV Neut % (Auto) Lymph % (Auto) [place] % (Auto) Eos % (Auto) Baso % (Auto) Neut # (Auto) Lymph # (Auto) [place] # (Auto) Eos # (Auto) Baso # (Auto) Neutrophils % (Manual) Band Neutrophils % Lymphocytes % (Manual) Monocytes % (Manual) Nucleated RBC % Platelet Estimate Large Platelets Poikilocytosis (manual Anisocytosis (manual) Tear Drop Cells Ovalocytes Sodium Potassium Chloride Carbon Dioxide Anion Gap BUN Creatinine Est GFR ( Amer) Est GFR (Non-Af Amer) POC Glucose (mg/dL) 215 H 237 H 217 H Random Glucose Calcium Phosphorus Magnesium Total Bilirubin AST ALT Alkaline Phosphatase Total Protein Albumin Globulin Albumin/Globulin Ratio CSF LDH Random Vancomycin 11/08/18 11/08/18 11/08/18 05:47 05:47 05:49 WBC 10.5 RBC 3.23 L Hgb 9.1 L Hct 29.2 L MCV 90.5 MCH 28.3 MCHC 31.2 L RDW 20.7 H Plt Count 160 MPV 10.8 Neut % (Auto) 89.5 H Lymph % (Auto) 6.0 L [place] % (Auto) 4.2 Eos % (Auto) 0.0 Baso % (Auto) 0.3 Neut # (Auto) 9.4 H Lymph # (Auto) 0.6 L [place] # (Auto) 0.4 Eos # (Auto) 0.0 Baso # (Auto) 0.0 Neutrophils % (Manual) 88 H Band Neutrophils % 1 Lymphocytes % (Manual) 6 L Monocytes % (Manual) 5 Nucleated RBC % 1 H Platelet Estimate Normal Large Platelets Present Poikilocytosis (manual Slight Anisocytosis (manual) Moderate Tear Drop Cells Slight Ovalocytes Slight Sodium 142 Potassium 3.6 Chloride 108 H Carbon Dioxide 20 L Anion Gap 18 BUN 71 H Creatinine 5.5 H Est GFR ( Amer) 9 Est GFR (Non-Af Amer) 8 POC Glucose (mg/dL) Random Glucose 200 H D Calcium 9.2 Phosphorus 3.7 Magnesium 2.2 Total Bilirubin 0.5 AST 63 H ALT 34 Alkaline Phosphatase 142 H Total Protein 5.9 L Albumin 2.9 L Globulin 3.0 Albumin/Globulin Ratio 1.0 CSF LDH Random Vancomycin 16.1 11/08/18 11/08/18 11/08/18 06:29 07:08 08:17 WBC RBC Hgb Hct MCV MCH MCHC RDW Plt Count MPV Neut % (Auto) Lymph % (Auto) [place] % (Auto) Eos % (Auto) Baso % (Auto) Neut # (Auto) Lymph # (Auto) [place] # (Auto) Eos # (Auto) Baso # (Auto) Neutrophils % (Manual) Band Neutrophils % Lymphocytes % (Manual) Monocytes % (Manual) Nucleated RBC % Platelet Estimate Large Platelets Poikilocytosis (manual Anisocytosis (manual) Tear Drop Cells Ovalocytes Sodium Potassium Chloride Carbon Dioxide Anion Gap BUN Creatinine Est GFR ( Amer) Est GFR (Non-Af Amer) POC Glucose (mg/dL) 181 H 168 H 107 Random Glucose Calcium Phosphorus Magnesium Total Bilirubin AST ALT Alkaline Phosphatase Total Protein Albumin Globulin Albumin/Globulin Ratio CSF LDH Random Vancomycin 11/08/18 11/08/18 11/08/18 08:51 09:21 10:02 WBC RBC Hgb Hct MCV MCH MCHC RDW Plt Count MPV Neut % (Auto) Lymph % (Auto) [place] % (Auto) Eos % (Auto) Baso % (Auto) Neut # (Auto) Lymph # (Auto) [place] # (Auto) Eos # (Auto) Baso # (Auto) Neutrophils % (Manual) Band Neutrophils % Lymphocytes % (Manual) Monocytes % (Manual) Nucleated RBC % Platelet Estimate Large Platelets Poikilocytosis (manual Anisocytosis (manual) Tear Drop Cells Ovalocytes Sodium Potassium Chloride Carbon Dioxide Anion Gap BUN Creatinine Est GFR ( Amer) Est GFR (Non-Af Amer) POC Glucose (mg/dL) 73 183 H 137 H Random Glucose Calcium Phosphorus Magnesium Total Bilirubin AST ALT Alkaline Phosphatase Total Protein Albumin Globulin Albumin/Globulin Ratio CSF LDH Random Vancomycin 11/08/18 11/08/18 10:57 11:57 WBC RBC Hgb Hct MCV MCH MCHC RDW Plt Count MPV Neut % (Auto) Lymph % (Auto) [place] % (Auto) Eos % (Auto) Baso % (Auto) Neut # (Auto) Lymph # (Auto) [place] # (Auto) Eos # (Auto) Baso # (Auto) Neutrophils % (Manual) Band Neutrophils % Lymphocytes % (Manual) Monocytes % (Manual) Nucleated RBC % Platelet Estimate Large Platelets Poikilocytosis (manual Anisocytosis (manual) Tear Drop Cells Ovalocytes Sodium Potassium Chloride Carbon Dioxide Anion Gap BUN Creatinine Est GFR ( Amer) Est GFR (Non-Af Amer) POC Glucose (mg/dL) 133 H 159 H Random Glucose Calcium Phosphorus Magnesium Total Bilirubin AST ALT Alkaline Phosphatase Total Protein Albumin Globulin Albumin/Globulin Ratio CSF LDH Random Vancomycin Radiology Impressions: Radiology Impressions Chest X-Ray 11/08/18 13:00 IMPRESSION: No acute infiltrate pleural effusion identified. Stable tracheostomy tube identified. Left CVL is been retracted somewhat, terminating at SVC/brachiocephalic vein junction. Assessment/Plan (1) Persistent vegetative state Current Visit: Yes Status: Acute Attending/Attestation - Attestation I have personally seen and examined this patient.: Yes I have fully participated in the care of the patient.: Yes I have reviewed all pertinent clinical information: Yes Notes (Text): 11/08/18 18:02 I have seen and examined the patient. Medical records, lab studies, and imaging were reviewed by me and a management plan was formulated on multidisciplinary rounds with resident Dr. Patton. I agree with their documented assessment and plan. Had a long conversation with both daughters about their mother's medical status. She is not improving clinically. Daughter's said that she never wanted dialysis and we are going against her known wishes. They agreed to DNR. They are not ready to terminally extubate yet, but are amenable to it. Critical Care Time 35 minutes. Multi-disciplinary rounds were performed with house staff, nursing, speech therapy, respiratory therapy, pharmacy and nutrition with integrated input from the primary team/attending and other consulting services. The documented time is cumulative and includes review of patient data/exams/labs/chart review and examination of the patient on rounds and throughout the day; time is exclusive of any procedures or teaching time.
[2018-11-08] MEDS: Micafungin 100 MG in Sodium Chloride 0.9% 100 ML IV SCH (18:05)
--- NOTE | 2018-11-08 19:44 | PN ---
DATE: 11/08/2018 INFECTIOUS DISEASE FOLLOWUP SUBJECTIVE: The patient remains unresponsive. She still has those upper arm movements. She has a trach and has had fevers and then tells me she is going for a Ceretec scan as she has had fevers; however, lately her temperature has been better, and it was in the last 24 hours 97.7, 98.6. She had 100.4. PHYSICAL EXAMINATION: VITAL SIGNS: Pulse is 76, blood pressure is 146/68, respirations are 19. HEENT: Head is atraumatic, normocephalic. Trach site appears unremarkable. NECK: Supple. LUNGS: Clear. No crackles or rales present. Decreased breath sounds. HEART: S1 and S2, regular. ABDOMEN: Soft. PEG tube is present. She has perirectal erythema and sacral decubitus. EXTREMITIES: With foot protectors. LABORATORY DATA: Labs are noted. Labs show white count is 10.5, hemoglobin 9.1, hematocrit 29.2, platelet count is 160. IMPRESSION AND PLAN: She has had fever, and she has anoxic encephalopathy, status post cardiac arrest and has perirectal redness and also sacral decubitus and also has end-stage renal disease, on dialysis, and many catheters have been changed. We will wait for the Ceretec scan, but I think the perirectal abscess, which has been mentioned, may be the problem and we are treating it with antibiotics. She was supposed to have a vancomycin random level today which is 16.1, which is enough for today. We will find out the dialysis days and add it back. Sara Barrios MD
[2018-11-08] MEDS: Insulin Detemir 100 units/ml Vial (Levemir) SC SCH (21:59)
[2018-11-09] MEDS: (Novolog) Insulin Aspart, Recombinant 100 u/ml 10 ml vial SC SCH ×5 (00:56→23:36)
--- NOTE | 2018-11-09 05:00 | CP.PCM.PN ---
Subjective - Date & Time of Evaluation Date of Evaluation: 11/08/18 Time of Evaluation: 15:20 - Subjective Subjective: Patient seen and examined. Dpes not respond to commands. On Ventilator PE Head: Positive for: Atraumatic, Normocephalic Extroacular Muscles: Positive for: EOMI (dropping eyelid left) Conjunctiva: Positive for: Normal Mouth: Positive for: Dry Neck: Positive for: Other (tracheostomy in place with vent, trialysis cath on left side neck area) Respiratory/Chest: Positive for: Decreased Breath Sounds, Other (intubated ). Negative for: Respiratory Distress, Accessory Muscle Use, Tachypneic Cardiovascular: Positive for: Regular Rate and Rhythm, Normal S1, S2 Abdomen: Positive for: Normal Bowel Sounds, Other (PEG tube in place ). Neg ative for: Tenderness, Distention, Rebound, Guarding Upper Extremity: Positive for: Normal Inspection. Negative for: Cyanosis, Edema Lower Extremity: Positive for: Normal Inspection. Negative for: Edema Neurological: Negative for: GCS=15, CN II-XII Intact, Speech Normal Skin: Positive for: Warm, Dry, Normal Color Psychiatric: Negative for: Alert, Oriented x 3, Normal Insight, Normal Concentration A/P Patient is a 72 year old female with PMHx of CKD, CHF, CAD s/p stents, pituitary adenoma a/p resection, DM, who was admitted for respiratory and cardiac arrest s/p permacath placement and AVF on 10/05; possible AMS due to anoxic brain injury, now on HD MWF, tracheostomy on 10/18/17, PEG tube placement 10/23/18. Patient became hypotensive overnight and upgraded to ICU. Permacath removed by surgery on 10/30. A trialysis catheter inserted but dialysis reported the line was not function. A IJ central line inserted for dialysis access. Pt had a LP yesterday (11/05) to r/o meningitis. Pt continues to have diarrhea, feeds changed to Glucerna. Patient will go for Ceretec scan to r/o sites of infection. The left IJ catheter inserted 11/01 for dialysis was repositioned today due to poor blood return. Neuro Intubated continue Keppra and valproate as per neuro Lumbar puncture 11/05: WBC 1.0, Glucose 129, RBC 0 f/u Neuro recs Cardiac Hypertension, improving continue Norvasc 5mg daily Echo 1/31: Left Ventricle systolic function is normal; EF is 55-60%; hypertensive heart disease; diastolic dysfunction; no AR, MR, pulmonary hypertension; trace to mild tricuspid regurgitation. continue to monitor vitals continue Crestor 10mg, ASA 81mg Pulm Intubated, current vent settings PRVC 14/450/5/35 Pressure support trials CXR 11/08: No acute infiltrate pleural effusion identified GI PEG tube in place Tube feeds changed to Glucerna rectal tube in place protonix ppx CT abdomen/pelvis 10/30: fluid and gas filled distended rectum versus perirectal abscess. Evidence of anastomotic bowel suture material and/or rectal tube/packing material. per surgery, no intervention at this time Renal Dialysis today HD schedule: TTHS continue Procrit Endo Hx of Hypothyroidism, continue levothyroxine 50mg Hx of DM, sugars controlled today, insulin drip d/c continue ISS high, restart Lantus Discontinue Solu-Medrol 20mg Q12 Heme H/H 9.10/30.2 monitor CBC ID Tmax 100.4F WBC 10.5 today, continue to monitor continue Abx: Meropenem, Flagyl Vanc trough 16.1, Vanco to restart today 10/30 Tracheostomy site, sputum cx positive: Romina Albicans continue Micafungin 100mg Decubitus Ulcer, unstageable; wound care following ESR (+) 99, CRP (+) 155.70 Ceretec scan for today f/u ID recs PPx Protonix for GI ppx DVT ppx: SCDs, Heparin SC Tylenol PRN for fever Objective - Vital Signs/Intake and Output Vital Signs (last 24 hours): Temp Pulse Resp BP Pulse Ox 99.1 F 81 13 153/70 H 100 11/09/18 00:00 11/09/18 03:18 11/09/18 03:18 11/09/18 03:18 11/09/18 03:18 Intake and Output: 11/08/18 11/09/18 18:59 06:59 Intake Total 962 640 Output Total 1455 0 Balance -493 640 - Medications Medications: Current Medications Acetaminophen (Tylenol 650mg/20.3ml Solution Ud) 650 mg PO Q6 PRN PRN Reason: pain+fever Last Admin: 11/05/18 09:09 Dose: 650 mg Amlodipine Besylate (Norvasc) 5 mg PO DAILY [facility] Last Admin: 11/08/18 14:08 Dose: 5 mg Aspirin (Aspirin Chewable) 81 mg PO DAILY [facility] Last Admin: 11/08/18 10:24 Dose: 81 mg Dextrose (Dextrose 50% Inj) 0 ml IV STAT PRN; Protocol PRN Reason: Hypoglycemia Protocol Dextrose (Glutose 15) 0 gm PO ONCE PRN; Protocol PRN Reason: Hypoglycemia Protocol Dextrose (Dextrose 50% Inj) 0 ml IV STAT PRN; Protocol PRN Reason: Hypoglycemia Protocol Dextrose (Glutose 15) 0 gm PO ONCE PRN; Protocol PRN Reason: Hypoglycemia Protocol Epoetin Dedrick (Procrit) 10,000 unit IV TTS [facility] Last Admin: 11/08/18 10:33 Dose: 10,000 unit Glucagon (Glucagen Diagnostic Kit) 0 mg IM STAT PRN; Protocol PRN Reason: Hypoglycemia Protocol Glucagon (Glucagen Diagnostic Kit) 0 mg IM STAT PRN; Protocol PRN Reason: Hypoglycemia Protocol Heparin Sodium (Porcine) (Heparin (For Dialysis)) 1,000 units IVP ONCE [facility] Meropenem 500 mg/ Sodium (Chloride) 100 mls @ 100 mls/hr IVPB DAILY [facility]; Protocol Last Admin: 11/08/18 13:39 Dose: 100 mls/hr Micafungin Sodium 100 mg/ (Sodium Chloride) 100 mls @ 100 mls/hr IV Q24H [facility]; Protocol Last Admin: 11/08/18 18:05 Dose: 100 mls/hr Metronidazole (Flagyl) 500 mg in 100 mls @ 100 mls/hr IVPB Q8H [facility]; Protocol Last Admin: 11/08/18 21:58 Dose: 100 mls/hr Dextrose (Dextrose 5% In Water 1000 Ml) 1,000 mls @ 0 mls/hr IV .Q0M PRN; Protocol PRN Reason: Hypoglycemia Protocol Vancomycin HCl 500 mg/ Sodium (Chloride) 100 mls @ 100 mls/hr IVPB TTS [facility]; Protocol Insulin Aspart (Novolog) 0 unit SC Q6H [facility]; Protocol Last Admin: 11/09/18 00:56 Dose: 12 u Insulin Detemir (Levemir) 40 unit SC HS [facility] Last Admin: 11/08/18 21:59 Dose: 40 u Insulin Detemir (Levemir) 30 unit SC DAILY [facility] Last Admin: 11/07/18 09:45 Dose: 30 u Levetiracetam (Keppra) 1,000 mg PO BID [facility] Last Admin: 11/08/18 18:03 Dose: 1,000 mg Levothyroxine Sodium (Synthroid) 50 mcg PO 0600 [facility] Last Admin: 11/08/18 05:15 Dose: 50 mcg Pantoprazole Sodium (Protonix Susp) 40 mg PO 0600 [facility] Last Admin: 11/08/18 05:15 Dose: 40 mg Rosuvastatin Calcium (Crestor) 10 mg PO HS [facility] Last Admin: 11/08/18 21:58 Dose: 10 mg Saccharomyces Boulardii (Florastor) 250 mg PO TID [facility] Last Admin: 11/08/18 18:04 Dose: 250 mg - Labs Labs: 11/08/18 05:49 11/08/18 05:47 PT 14.3 SECONDS (9.7-12.2) H 11/05/18 05:52 INR 1.3 11/05/18 05:52 APTT 43 SECONDS (21-34) H 11/05/18 05:52
[2018-11-09] MEDS: Levothyroxine 50 MCG TAB PO SCH (05:54)
[2018-11-09] MEDS: Pantoprazole 40 mg Susp UD PO SCH (05:54)
[2018-11-09] MEDS: metroNIDAZOLE IV 500 mg/100 ml 500 MG/100 ML BAG IVPB SCH ×3 (06:02→21:06)
[2018-11-09 06:22] LABS: BASO # 0.1 K/uL (0.0-0.2); BASO % 0.5 % (0.0-2.0); EOS % 0.1 % (0.0-4.0); HEMOGLOBIN 8.9 g/dL (11.0-16.0); LYMPH # 1.1 K/uL (1.0-4.3); LYMPH % 9.6 % (20.0-40.0); MEAN CELL VOLUME 89.6 fL (81.0-99.0); MEAN CORPUSCULAR HEMOGLOBIN 30.5 pg (27.0-31.0); MEAN CORPUSCULAR HGB CONC 34.1 g/dL (33.0-37.0); MEAN PLATELET VOLUME 11.2 fL (7.2-11.7); MONO # 1.4 K/uL (0.0-0.8); MONO % 11.7 % (0.0-10.0); NEUT # 9.3 K/uL (1.8-7.0); NEUT % 78.1 % (50.0-75.0); NRBC % 1.2 % (0.0-2.0); PLATELET COUNT 134 K/uL (130-400); RBC 2.91 Mil/uL (3.80-5.20); RED CELL DISTRIBUTION WIDTH 19.5 % (11.5-14.5); WHITE BLOOD COUNT 11.9 K/uL (4.8-10.8)
[2018-11-09 06:33] LABS: ALBUMIN 2.8 g/dL (3.5-5.0); CALCIUM 8.4 mg/dl (8.6-10.4)
[2018-11-09 08:55] LABS: LYMPHOCYTE 9 % (20-40); MONOCYTE 8 % (0-10); MYELOCYTE 2 % (0-0); NEUTROPHIL 81 % (50-75); NUCLEATED RED BLOOD CELL 1 % (0-0); PLATELET ESTIMATE NORMAL (NORMAL); TOTAL CELLS COUNTED 100
[2018-11-09 08:56] LABS: ANISOCYTOSIS SLIGHT; HYPOCHROMIC SLIGHT; MICROCYTOSIS SLIGHT; POIKILOCYTOSIS SLIGHT; POLYCHROMIC SLIGHT; SPHEROCYTES SLIGHT; TARGET CELLS SLIGHT
[2018-11-09 08:57] LABS: GIANT PLATELETS PRESENT; LARGE PLATELETS PRESENT; TEARDROP CELLS SLIGHT
--- NOTE | 2018-11-09 09:09 | PN ---
DATE: 11/09/2018 NEUROLOGICAL PROBLEM: Anoxic encephalopathy and seizures. PHYSICAL EXAMINATION: VITAL SIGNS: Blood pressure 186/85, mean arterial pressure of 116, pulse rate 78. GENERAL: The patient is on trach and PEG. Nonresponsive verbally, noxious stimuli with appropriate response. Moves upper extremities and lower extremities as well. NEUROLOGICAL: No new neurological abnormality on examination. ASSESSMENT AND PLAN: The patient is on own medication for her seizures that can be continued. Rest of the workup all completed. Continue the present management. Blu Yost MD MTDD
[2018-11-09] MEDS: Saccharomyces Boulardi 250 mg Cap PO SCH ×3 (09:29→17:12)
[2018-11-09] MEDS: Meropenem 500 MG in Sodium Chloride 0.9% 100 ML IVPB SCH (09:30)
[2018-11-09] MEDS: levETIRAcetam 100 mg/ml (5ml) Oral Syringe PO SCH ×2 (09:30→17:12)
[2018-11-09] MEDS: Insulin Detemir 100 units/ml Vial (Levemir) SC SCH ×2 (09:30→21:06)
--- NOTE | 2018-11-09 11:02 | CP.PCM.CON ---
History of Present Illness - History of Present Illness History of Present Illness: Palliative consult requested by Doctor Patton for goals of care discussing and family support Patient is a 72 yo lady admitted from home with epigastric pain, palpitations and SOB especially while climbing the steps, X 4 days. patient had no leg edema just yet at that time. Patient has known renal insufficiency what HD was suggested about 1 year ago, but patient was reluctant. On this admission patient found with worsened renal functions, fluid retention and beginning of pedal edema. Patient still was not decided on HD and was initially treated with Lasix, low K and low Na diet. During the course of this hospitalization, patient consent for HD and was sent for AV fistula creation. During the procedure patient Coded in cardiac arrest, was resuscitated, intubated and transferred to ICU. During this long hospital stay patient received trach and PEG and started HD yesterday. However, patient's neuro status has not improved and multiple EEGs confirmed severe disturbance of cortical activity. Family is not decided on goals of care . palliative care was asked to assist in the process. PMH: pituitary adenoma, HTN, HDL, DM, CAD, renal insufficiency, heart failure Soc. Hx: , lives alone, daughtes involved with care Fam. Hx: no significant Review of Systems - Review of Systems All systems: reviewed and no additional remarkable complaints except Review of Systems: ROS unobtainable from patient due to clinical condition. ROS obtained from daughter at bed side. Per daughter, patient remains non verbal, unable to fallow or interact. Past Patient History - Infectious Disease Hx of Infectious Diseases: None - Past Medical History & Family History Past Medical History?: Yes - Past Social History Smoking Status: Never Smoked - CARDIAC Hx Cardiac Disorders: Yes (CAD, Coronary Stent) Hx Congestive Heart Failure: Yes Hx Hypercholesterolemia: Yes - PULMONARY Hx Respiratory Disorders: No - NEUROLOGICAL Hx Neurological Disorder: No Hx Dizziness: Yes - HEENT Hx HEENT Problems: Yes Other/Comment: left eye drooping-blurry due to DM - RENAL Hx Chronic Kidney Disease: Yes - ENDOCRINE/METABOLIC Hx Diabetes Mellitus Type 2: Yes - HEMATOLOGICAL/ONCOLOGICAL Hx Cancer: No - INTEGUMENTARY Hx Dermatological Problems: No - MUSCULOSKELETAL/RHEUMATOLOGICAL Hx Falls: Yes - GASTROINTESTINAL Hx Gastrointestinal Disorders: No - GENITOURINARY/GYNECOLOGICAL Hx Genitourinary Disorders: No - PSYCHIATRIC Hx Substance Use: No - SURGICAL HISTORY Hx Mastectomy: No - ANESTHESIA Hx Anesthesia: Yes Hx Anesthesia Reactions: No Hx Malignant Hyperthermia: No Meds Allergies/Adverse Reactions: Allergies Allergy/AdvReac Type Severity Reaction Status Date / Time No Known Allergies Allergy Verified 07/21/18 12:21 - Medications Medications: Current Medications Acetaminophen (Tylenol 650mg/20.3ml Solution Ud) 650 mg PO Q6 PRN PRN Reason: pain+fever Last Admin: 11/05/18 09:09 Dose: 650 mg Amlodipine Besylate (Norvasc) 5 mg PO DAILY [facility] Last Admin: 11/09/18 09:30 Dose: 5 mg Aspirin (Aspirin Chewable) 81 mg PO DAILY [facility] Last Admin: 11/09/18 09:29 Dose: 81 mg Dextrose (Dextrose 50% Inj) 0 ml IV STAT PRN; Protocol PRN Reason: Hypoglycemia Protocol Dextrose (Glutose 15) 0 gm PO ONCE PRN; Protocol PRN Reason: Hypoglycemia Protocol Dextrose (Dextrose 50% Inj) 0 ml IV STAT PRN; Protocol PRN Reason: Hypoglycemia Protocol Dextrose (Glutose 15) 0 gm PO ONCE PRN; Protocol PRN Reason: Hypoglycemia Protocol Epoetin Dedrick (Procrit) 10,000 unit IV TTS [facility] Last Admin: 11/08/18 10:33 Dose: 10,000 unit Glucagon (Glucagen Diagnostic Kit) 0 mg IM STAT PRN; Protocol PRN Reason: Hypoglycemia Protocol Glucagon (Glucagen Diagnostic Kit) 0 mg IM STAT PRN; Protocol PRN Reason: Hypoglycemia Protocol Heparin Sodium (Porcine) (Heparin (For Dialysis)) 1,000 units IVP ONCE [facility] Meropenem 500 mg/ Sodium (Chloride) 100 mls @ 100 mls/hr IVPB DAILY [facility]; Protocol Last Admin: 11/09/18 09:30 Dose: 100 mls/hr Micafungin Sodium 100 mg/ (Sodium Chloride) 100 mls @ 100 mls/hr IV Q24H [facility]; Protocol Last Admin: 11/08/18 18:05 Dose: 100 mls/hr Metronidazole (Flagyl) 500 mg in 100 mls @ 100 mls/hr IVPB Q8H [facility]; Protocol Last Admin: 11/09/18 06:02 Dose: 100 mls/hr Dextrose (Dextrose 5% In Water 1000 Ml) 1,000 mls @ 0 mls/hr IV .Q0M PRN; Protocol PRN Reason: Hypoglycemia Protocol Vancomycin HCl 500 mg/ Sodium (Chloride) 100 mls @ 100 mls/hr IVPB TTS [facility]; Protocol Insulin Aspart (Novolog) 0 unit SC Q6H [facility]; Protocol Last Admin: 11/09/18 05:55 Dose: 10 u Insulin Detemir (Levemir) 40 unit SC HS [facility] Last Admin: 11/08/18 21:59 Dose: 40 u Insulin Detemir (Levemir) 30 unit SC DAILY [facility] Last Admin: 11/09/18 09:30 Dose: 30 u Levetiracetam (Keppra) 1,000 mg PO BID [facility] Last Admin: 11/09/18 09:30 Dose: 1,000 mg Levothyroxine Sodium (Synthroid) 50 mcg PO 0600 [facility] Last Admin: 11/09/18 05:54 Dose: 50 mcg Pantoprazole Sodium (Protonix Susp) 40 mg PO 0600 [facility] Last Admin: 11/09/18 05:54 Dose: 40 mg Rosuvastatin Calcium (Crestor) 10 mg PO [facility] Last Admin: 11/08/18 21:58 Dose: 10 mg Saccharomyces Boulardii (Florastor) 250 mg PO TID [facility] Last Admin: 11/09/18 09:29 Dose: 250 mg Physical Exam - Constitutional Appears: Agitated, Chronically Ill - Head Exam Head Exam: ATRAUMATIC, NORMAL INSPECTION, NORMOCEPHALIC - Eye Exam Eye Exam: EOMI, Normal appearance, PERRL Pupil Exam: NORMAL ACCOMODATION, PERRL - ENT Exam ENT Exam: Mucous Membranes Moist, Normal Exam - Neck Exam Additional comments: Trach in situ - Respiratory Exam Additional comments: On Trach Colar - Cardiovascular Exam Cardiovascular Exam: Tachycardia, Irregular Rhythm - GI/Abdominal Exam Additional comments: PEG - Rectal Exam Rectal Exam: Deferred - Exam Additional comments: HD - Extremities Exam Extremities exam: Positive for: pedal edema - Back Exam Back exam: NORMAL INSPECTION - Neurological Exam Neurological exam: Motor Sensory Deficit - Psychiatric Exam Psychiatric exam: Agitated - Skin Skin Exam: Dry, Normal Color, Warm Results - Vital Signs Recent Vital Signs: Last Vital Signs Temp 98.4 F 11/09/18 08:00 Pulse 84 11/09/18 08:48 Resp 12 11/09/18 08:48 BP 187/85 H 11/09/18 07:18 Pulse Ox 100 11/09/18 07:18 - Labs Result Diagrams: 11/09/18 06:11 11/09/18 06:11 Labs: Laboratory Results - last 24 hr 11/05/18 11/05/18 11/08/18 10:54 10:54 06:29 WBC RBC Hgb Hct MCV MCH MCHC RDW Plt Count MPV Neut % (Auto) Lymph % (Auto) [place] % (Auto) Eos % (Auto) Baso % (Auto) Neut # (Auto) Lymph # (Auto) [place] # (Auto) Eos # (Auto) Baso # (Auto) Neutrophils % (Manual) Lymphocytes % (Manual) Monocytes % (Manual) Myelocytes % Nucleated RBC % Platelet Estimate Large Platelets Giant Platelets Polychromasia Hypochromasia (manual) Poikilocytosis (manual Anisocytosis (manual) Microcytosis (manual) Macrocytosis (manual) Spherocytes Target Cells Tear Drop Cells Sodium Potassium Chloride Carbon Dioxide Anion Gap BUN Creatinine Est GFR ( Amer) Est GFR (Non-Af Amer) POC Glucose (mg/dL) 181 H Random Glucose Calcium Phosphorus Magnesium Total Bilirubin AST ALT Alkaline Phosphatase Total Protein Albumin Globulin Albumin/Globulin Ratio CSF VDRL Titer TEST NOT PERFORMED CSF VDRL Nonreactive CSF Lyme IgG Antibody No bands detected Lyme Bands Present TEST NOT PERFORMED HSV IgM Ab Screen Negative HSV I IgG Index 0.43 HSV I IgM Ab Negative HSV II IgG Index 0.02 HSV II IgM Negative 11/08/18 11/08/18 11/08/18 07:08 10:57 11:57 WBC RBC Hgb Hct MCV MCH MCHC RDW Plt Count MPV Neut % (Auto) Lymph % (Auto) [place] % (Auto) Eos % (Auto) Baso % (Auto) Neut # (Auto) Lymph # (Auto) [place] # (Auto) Eos # (Auto) Baso # (Auto) Neutrophils % (Manual) Lymphocytes % (Manual) Monocytes % (Manual) Myelocytes % Nucleated RBC % Platelet Estimate Large Platelets Giant Platelets Polychromasia Hypochromasia (manual) Poikilocytosis (manual Anisocytosis (manual) Microcytosis (manual) Macrocytosis (manual) Spherocytes Target Cells Tear Drop Cells Sodium Potassium Chloride Carbon Dioxide Anion Gap BUN Creatinine Est GFR ( Amer) Est GFR (Non-Af Amer) POC Glucose (mg/dL) 168 H 133 H 159 H Random Glucose Calcium Phosphorus Magnesium Total Bilirubin AST ALT Alkaline Phosphatase Total Protein Albumin Globulin Albumin/Globulin Ratio CSF VDRL Titer CSF VDRL CSF Lyme IgG Antibody Lyme Bands Present HSV IgM Ab Screen HSV I IgG Index HSV I IgM Ab HSV II IgG Index HSV II IgM 11/08/18 11/09/18 11/09/18 17:36 00:20 04:54 WBC RBC Hgb Hct MCV MCH MCHC RDW Plt Count MPV Neut % (Auto) Lymph % (Auto) [place] % (Auto) Eos % (Auto) Baso % (Auto) Neut # (Auto) Lymph # (Auto) [place] # (Auto) Eos # (Auto) Baso # (Auto) Neutrophils % (Manual) Lymphocytes % (Manual) Monocytes % (Manual) Myelocytes % Nucleated RBC % Platelet Estimate Large Platelets Giant Platelets Polychromasia Hypochromasia (manual) Poikilocytosis (manual Anisocytosis (manual) Microcytosis (manual) Macrocytosis (manual) Spherocytes Target Cells Tear Drop Cells Sodium Potassium Chloride Carbon Dioxide Anion Gap BUN Creatinine Est GFR ( Amer) Est GFR (Non-Af Amer) POC Glucose (mg/dL) 339 H 461 H* 391 H Random Glucose Calcium Phosphorus Magnesium Total Bilirubin AST ALT Alkaline Phosphatase Total Protein Albumin Globulin Albumin/Globulin Ratio CSF VDRL Titer CSF VDRL CSF Lyme IgG Antibody Lyme Bands Present HSV IgM Ab Screen HSV I IgG Index HSV I IgM Ab HSV II IgG Index HSV II IgM 11/09/18 11/09/18 06:11 06:11 WBC 11.9 H RBC 2.91 L Hgb 8.9 L Hct 26.0 L MCV 89.6 MCH 30.5 MCHC 34.1 RDW 19.5 H Plt Count 134 MPV 11.2 Neut % (Auto) 78.1 H Lymph % (Auto) 9.6 L [place] % (Auto) 11.7 H Eos % (Auto) 0.1 Baso % (Auto) 0.5 Neut # (Auto) 9.3 H Lymph # (Auto) 1.1 [place] # (Auto) 1.4 H Eos # (Auto) 0.0 Baso # (Auto) 0.1 Neutrophils % (Manual) 81 H Lymphocytes % (Manual) 9 L Monocytes % (Manual) 8 Myelocytes % 2 H Nucleated RBC % 1 H Platelet Estimate Normal Large Platelets Present Giant Platelets Present Polychromasia Slight Hypochromasia (manual) Slight Poikilocytosis (manual Slight Anisocytosis (manual) Slight Microcytosis (manual) Slight Macrocytosis (manual) Slight Spherocytes Slight Target Cells Slight Tear Drop Cells Slight Sodium 137 Potassium 3.8 Chloride 101 Carbon Dioxide 24 Anion Gap 16 BUN 67 H Creatinine 3.9 H Est GFR ( Amer) 14 Est GFR (Non-Af Amer) 11 POC Glucose (mg/dL) Random Glucose 314 H D Calcium 8.4 L Phosphorus 2.7 Magnesium 2.1 Total Bilirubin 0.4 AST 46 H D ALT 24 Alkaline Phosphatase 232 H D Total Protein 5.6 L Albumin 2.8 L Globulin 2.8 Albumin/Globulin Ratio 1.0 CSF VDRL Titer CSF VDRL CSF Lyme IgG Antibody Lyme Bands Present HSV IgM Ab Screen HSV I IgG Index HSV I IgM Ab HSV II IgG Index HSV II IgM Assessment & Plan - Assessment and Plan (Free Text) Assessment: Palliative consult DNR, PPS 10% I reviewed Medical records and diagnostic studies, and examined patient in the bed. Patient is alert, eyes open , does not make eye contacts and is not making meaningful facial expressions. Patient is agitated , anxiously moving her head and upper extremities. Daughter at bed side and reports that her mother does not recognize her. Patient is S/P HD yesterday. BUN 67 from 71, and [employer] 3.9 from 5.5. BP 159/ 69, afebrile, Sputum cultures positive. Merrem, Mycomine, Flagyl and Vanco IV on board. Patient is on Kepra as suggested by Doctor Priyank. I discussed patient's clinical presentation with the daughter at bed side. She feels that her mother is suffering but family is not able to decide on the next step of care. The daughter states, family feels comfortable with patient being here as opposed to transfer to another facility and they needed few more weeks to make decision on final goals of care. I reassured daughter that her mother's condition is chronic at this time and she will need terminologist placement where her needs could be met. I offered more information about LTAC. Daughter seemed to be interested in it and wanted more information from regarding health insurance and LTAC admission. I spoke to Sneha from about it and Milana [employer] sales manager medical. Impression * This is critically ill patient with complex medical Hx what had negatively affected her quality of life * Patient's wishes for the end of life care are not known * The family is undecided on goals of care and feels that current ICU placement is the best place for patient in this condition and also " convenient " for the family * I feel that family is under significant baptism influence and I am not convinced that family has real understanding of high acuity of patient's condition * Spiritual distress * Patient is at risk for aspiration * Patient is at risk for worsening of sacral pressure sore * Patient is DNR Suggestion * Promote comfort * Promote skin integrity * Aspiration precautions * Pastoral care for spiritual support * LTAC would be the most appropriate placement for this very sick patient * SS to address family's concerns regarding the Insurance * Agree with DNR Palliative care will remain available for further family support as needed. Advance care discussion 55 min.
--- NOTE | 2018-11-09 12:30 | CP.PCM.PN ---
Subjective - Date & Time of Evaluation Date of Evaluation: 11/09/18 Time of Evaluation: 12:28 - Subjective Subjective: s/p dialysis 2/- UF 1300ml appears same- same confusional state PEG feeds ongoing labs reviewed Objective - Vital Signs/Intake and Output Vital Signs (last 24 hours): Temp Pulse Resp BP Pulse Ox 98.4 F 75 17 159/71 H 98 11/09/18 08:00 11/09/18 11:00 11/09/18 11:00 11/09/18 10:19 11/09/18 11:00 Intake and Output: 11/09/18 11/09/18 06:59 18:59 Intake Total 1020 340 Output Total 125 0 Balance 895 340 - Medications Medications: Current Medications Acetaminophen (Tylenol 650mg/20.3ml Solution Ud) 650 mg PO Q6 PRN PRN Reason: pain+fever Last Admin: 11/05/18 09:09 Dose: 650 mg Amlodipine Besylate (Norvasc) 5 mg PO DAILY [facility] Last Admin: 11/09/18 09:30 Dose: 5 mg Aspirin (Aspirin Chewable) 81 mg PO DAILY [facility] Last Admin: 11/09/18 09:29 Dose: 81 mg Dextrose (Dextrose 50% Inj) 0 ml IV STAT PRN; Protocol PRN Reason: Hypoglycemia Protocol Dextrose (Glutose 15) 0 gm PO ONCE PRN; Protocol PRN Reason: Hypoglycemia Protocol Dextrose (Dextrose 50% Inj) 0 ml IV STAT PRN; Protocol PRN Reason: Hypoglycemia Protocol Dextrose (Glutose 15) 0 gm PO ONCE PRN; Protocol PRN Reason: Hypoglycemia Protocol Epoetin Dedrick (Procrit) 10,000 unit IV TTS [facility] Last Admin: 11/08/18 10:33 Dose: 10,000 unit Glucagon (Glucagen Diagnostic Kit) 0 mg IM STAT PRN; Protocol PRN Reason: Hypoglycemia Protocol Glucagon (Glucagen Diagnostic Kit) 0 mg IM STAT PRN; Protocol PRN Reason: Hypoglycemia Protocol Heparin Sodium (Porcine) (Heparin (For Dialysis)) 1,000 units IVP ONCE [facility] Meropenem 500 mg/ Sodium (Chloride) 100 mls @ 100 mls/hr IVPB DAILY [facility]; Protocol Last Admin: 11/09/18 09:30 Dose: 100 mls/hr Micafungin Sodium 100 mg/ (Sodium Chloride) 100 mls @ 100 mls/hr IV Q24H [facility]; Protocol Last Admin: 11/08/18 18:05 Dose: 100 mls/hr Metronidazole (Flagyl) 500 mg in 100 mls @ 100 mls/hr IVPB Q8H [facility]; Protocol Last Admin: 11/09/18 06:02 Dose: 100 mls/hr Dextrose (Dextrose 5% In Water 1000 Ml) 1,000 mls @ 0 mls/hr IV .Q0M PRN; Protocol PRN Reason: Hypoglycemia Protocol Vancomycin HCl 500 mg/ Sodium (Chloride) 100 mls @ 100 mls/hr IVPB TTS [facility]; Protocol Insulin Aspart (Novolog) 0 unit SC Q6H [facility]; Protocol Last Admin: 11/09/18 11:55 Dose: 2 u Insulin Detemir (Levemir) 40 unit SC [facility] Last Admin: 11/08/18 21:59 Dose: 40 u Insulin Detemir (Levemir) 30 unit SC DAILY [facility] Last Admin: 11/09/18 09:30 Dose: 30 u Levetiracetam (Keppra) 1,000 mg PO BID [facility] Last Admin: 11/09/18 09:30 Dose: 1,000 mg Levothyroxine Sodium (Synthroid) 50 mcg PO 0600 [facility] Last Admin: 11/09/18 05:54 Dose: 50 mcg Pantoprazole Sodium (Protonix Susp) 40 mg PO 0600 [facility] Last Admin: 11/09/18 05:54 Dose: 40 mg Rosuvastatin Calcium (Crestor) 10 mg PO [facility] Last Admin: 11/08/18 21:58 Dose: 10 mg Saccharomyces Boulardii (Florastor) 250 mg PO TID [facility] Last Admin: 11/09/18 09:29 Dose: 250 mg - Labs Labs: 11/09/18 06:11 11/09/18 06:11 PT 14.3 SECONDS (9.7-12.2) H 11/05/18 05:52 INR 1.3 11/05/18 05:52 APTT 43 SECONDS (21-34) H 11/05/18 05:52 - Constitutional Appears: No Acute Distress, Chronically Ill - Head Exam Head Exam: ATRAUMATIC, NORMAL INSPECTION - Eye Exam Eye Exam: EOMI, Normal appearance - Neck Exam Neck Exam: Normal Inspection. absent: Tenderness - Respiratory Exam Respiratory Exam: Rhonchi, Respiratory Distress. absent: NORMAL BREATHING PATTERN - Cardiovascular Exam Cardiovascular Exam: REGULAR RHYTHM, +S1 - GI/Abdominal Exam GI & Abdominal Exam: Soft. absent: Tenderness - Extremities Exam Extremities Exam: Normal Inspection. absent: Pedal Edema - Neurological Exam Neurological Exam: Altered - Skin Skin Exam: Dry, Warm Assessment and Plan (1) ESRD (end stage renal disease) Status: Acute (2) Diabetic nephropathy associated with type 2 diabetes mellitus Status: Acute (3) CAD (coronary artery disease) Status: Acute (4) HTN (hypertension) Status: Acute (5) Metabolic encephalopathy Status: Acute - Assessment and Plan (Free Text) Plan: same dialysis schedule TTS monitor labs continue EPO supportive care otherwise
--- NOTE | 2018-11-09 13:15 | CP.CCUPN ---
<Dyllan Patton - Last Filed: 11/09/18 18:40> CCU Subjective - Physician Review Subjective (Free Text): PGY-1 ICU progress note for Dr Scott service Patient seen and examined at bedside today. Patient remains intubated. Patient is not on sedation and patient seems agitated. Patient is flailing arms around not purposefully. ROS is unobtainable due to patients mental status. Patients family made decision to make patient DNR yesterday (11/08) after long discussion regarding goals of care. Patient remains intubated and patients family still remains without decision regarding terminal extubation. Patient had ceretec scan today without incident. Critical Care Time Spent (in minutes): 40 CCU Objective - Vital Signs / Intake & Output Vital Signs (Last 4 hours): Vital Signs Temp Pulse Resp BP Pulse Ox 11/09/18 12:41 84 14 144/75 96 11/09/18 12:00 99.2 F 76 16 98 11/09/18 11:19 72 14 136/62 98 11/09/18 11:00 75 17 98 11/09/18 10:19 77 15 159/71 H 99 11/09/18 10:00 84 20 99 11/09/18 09:18 76 15 168/78 H 100 Intake and Output (Last 8hrs): Intake & Output 11/08/18 11/09/18 11/09/18 22:59 06:59 14:59 Intake Total 950 680 560 Output Total 155 125 0 Balance 795 555 560 Weight 234 lb 2 oz Intake: Intake, IV Amount 310 100 200 Left Internal Jugular 310 100 200 Tube Feeding 420 480 360 Other 220 100 Output: Urine 0 Urine, Voided 0 Stool 155 125 0 - Physical Exam Head: Positive for: Atraumatic, Normocephalic Extroacular Muscles: Positive for: EOMI (dropping eyelid left) Conjunctiva: Positive for: Normal Mouth: Positive for: Dry Neck: Positive for: Other (tracheostomy in place with vent, trialysis cath on left side neck area ) Respiratory/Chest: Positive for: Decreased Breath Sounds, Other (intubated ). Negative for: Respiratory Distress, Accessory Muscle Use, Tachypneic Cardiovascular: Positive for: Regular Rate and Rhythm, Normal S1, S2 Abdomen: Positive for: Normal Bowel Sounds, Other (PEG tube in place ). Negative for: Tenderness, Distention, Rebound, Guarding Upper Extremity: Positive for: Normal Inspection. Negative for: Cyanosis, Edema Lower Extremity: Positive for: Normal Inspection. Negative for: Edema Neurological: Negative for: GCS=15, CN II-XII Intact, Speech Normal Skin: Positive for: Warm, Dry, Normal Color Psychiatric: Negative for: Alert, Oriented x 3, Normal Insight, Normal Concentration - Medications Active Medications: Active Medications Generic Name Dose Route Start Last Admin Trade Name Freq PRN Reason Stop Dose Admin Acetaminophen 650 mg 10/25/18 03:30 11/05/18 09:09 Tylenol 650mg/20.3ml Solution Ud PO 650 mg Q6 PRN Administration pain+fever Amlodipine Besylate 5 mg 11/07/18 11:00 11/09/18 09:30 Norvasc PO 5 mg DAILY JOCELYN Administration Aspirin 81 mg 10/08/18 10:00 11/09/18 09:29 Aspirin Chewable PO 81 mg DAILY JOCELYN Administration Dextrose 0 ml 11/01/18 12:14 Dextrose 50% Inj IV STAT PRN Hypoglycemia Protocol Protocol Dextrose 0 gm 11/01/18 12:14 Glutose 15 PO ONCE PRN Hypoglycemia Protocol Protocol Dextrose 0 ml 11/07/18 11:00 Dextrose 50% Inj IV STAT PRN Hypoglycemia Protocol Protocol Dextrose 0 gm 11/07/18 11:00 Glutose 15 PO ONCE PRN Hypoglycemia Protocol Protocol Epoetin Dedrick 10,000 unit 11/01/18 14:00 11/08/18 10:33 Procrit IV 10,000 unit TTS JOCELYN Administration Glucagon 0 mg 11/01/18 12:14 Glucagen Diagnostic Kit IM STAT PRN Hypoglycemia Protocol Protocol Glucagon 0 mg 11/07/18 11:00 Glucagen Diagnostic Kit IM STAT PRN Hypoglycemia Protocol Protocol Heparin Sodium (Porcine) 1,000 units 11/08/18 07:45 Heparin (For Dialysis) IVP ONCE JOCELYN Meropenem 500 mg/ Sodium 100 mls @ 100 mls/hr 10/30/18 15:30 11/09/18 09:30 Chloride IVPB 100 mls/hr DAILY JOCELYN Administration Protocol Micafungin Sodium 100 mg/ 100 mls @ 100 mls/hr 11/04/18 19:00 11/08/18 18:05 Sodium Chloride IV 100 mls/hr Q24H JOCELYN Administration Protocol Metronidazole 500 mg in 100 mls @ 100 mls/hr 11/06/18 21:30 11/09/18 12:31 Flagyl IVPB 100 mls/hr Q8H JOCELYN Administration Protocol Dextrose 1,000 mls @ 0 mls/hr 11/07/18 11:00 Dextrose 5% In Water 1000 Ml IV .Q0M PRN Hypoglycemia Protocol Protocol Per Protocol Vancomycin HCl 500 mg/ Sodium 100 mls @ 100 mls/hr 11/08/18 10:00 Chloride IVPB TTS JOCELYN Protocol Insulin Aspart 0 unit 10/31/18 12:00 11/09/18 11:55 Novolog SC 2 u Q6H JOCELYN Administration Protocol Insulin Detemir 40 unit 10/28/18 22:00 11/08/18 21:59 Levemir SC 40 u HS JOCELYN Administration Insulin Detemir 30 unit 11/02/18 10:00 11/09/18 09:30 Levemir SC 30 u DAILY JOCELYN Administration Levetiracetam 1,000 mg 10/28/18 18:00 11/09/18 09:30 Keppra PO 1,000 mg BID JOCELYN Administration Levothyroxine Sodium 50 mcg 09/29/18 08:00 11/09/18 05:54 Synthroid PO 50 mcg 0600 JOCELYN Administration Pantoprazole Sodium 40 mg 10/09/18 06:00 11/09/18 05:54 Protonix Susp PO 40 mg 0600 JOCELYN Administration Rosuvastatin Calcium 10 mg 09/30/18 22:00 11/08/18 21:58 Crestor PO 10 mg HS JOCELYN Administration Saccharomyces Boulardii 250 mg 11/01/18 10:00 11/09/18 09:29 Florastor PO 250 mg TID JOCELYN Administration - Patient Studies Lab Studies: Microbiology Studies 11/05/18 10:54 Gram Stain - Final Cerebral Spinal Fluid CSF Culture - Preliminary NO GROWTH AFTER 4 DAYS Lab Studies 11/09/18 11/09/18 11/09/18 Range/Units 11:46 06:11 06:11 WBC 11.9 H (4.8-10.8) K/uL RBC 2.91 L (3.80-5.20) Mil/uL Hgb 8.9 L (11.0-16.0) g/dL Hct 26.0 L (34.0-47.0) % MCV 89.6 (81.0-99.0) fL MCH 30.5 (27.0-31.0) pg MCHC 34.1 (33.0-37.0) g/dL RDW 19.5 H (11.5-14.5) % Plt Count 134 (130-400) K/uL MPV 11.2 (7.2-11.7) fL Neut % (Auto) 78.1 H (50.0-75.0) % Lymph % (Auto) 9.6 L (20.0-40.0) % Canadian % (Auto) 11.7 H (0.0-10.0) % Eos % (Auto) 0.1 (0.0-4.0) % Baso % (Auto) 0.5 (0.0-2.0) % Neut # (Auto) 9.3 H (1.8-7.0) K/uL Lymph # (Auto) 1.1 (1.0-4.3) K/uL Canadian # (Auto) 1.4 H (0.0-0.8) K/uL Eos # (Auto) 0.0 (0.0-0.7) K/uL Baso # (Auto) 0.1 (0.0-0.2) K/uL Neutrophils % (Manual) 81 H (50-75) % Lymphocytes % (Manual) 9 L (20-40) % Monocytes % (Manual) 8 (0-10) % Myelocytes % 2 H (0-0) % Nucleated RBC % 1 H (0-0) % Platelet Estimate Normal (NORMAL) Large Platelets Present Giant Platelets Present Polychromasia Slight Hypochromasia (manual) Slight Poikilocytosis (manual Slight Anisocytosis (manual) Slight Microcytosis (manual) Slight Macrocytosis (manual) Slight Spherocytes Slight Target Cells Slight Tear Drop Cells Slight Sodium 137 (132-148) mmol/L Potassium 3.8 (3.6-5.2) mmol/L Chloride 101 (98-107) mmol/L Carbon Dioxide 24 (22-30) mmol/L Anion Gap 16 (10-20) BUN 67 H (7-17) mg/dL Creatinine 3.9 H (0.7-1.2) mg/dL Est GFR ( Amer) 14 Est GFR (Non-Af Amer) 11 POC Glucose (mg/dL) 193 H (65-110) mg/dL Random Glucose 314 H D (65-105) mg/dL Calcium 8.4 L (8.6-10.4) mg/dl Phosphorus 2.7 (2.5-4.5) mg/dL Magnesium 2.1 (1.6-2.3) mg/dL Total Bilirubin 0.4 (0.2-1.3) mg/dL AST 46 H D (14-36) U/L ALT 24 (9-52) U/L Alkaline Phosphatase 232 H D (38-126) U/L Total Protein 5.6 L (6.3-8.3) g/dL Albumin 2.8 L (3.5-5.0) g/dL Globulin 2.8 (2.2-3.9) gm/dL Albumin/Globulin Ratio 1.0 (1.0-2.1) CSF VDRL Titer CSF VDRL (Nonreactive) CSF Lyme IgG Antibody CSF Herpes I IgG Index CSF Herpes I IgM Ab CSF Herpes II IgG Index CSF Herpes II IgM Ab Lyme Bands Present Lyme IgM Ab (IFA) HSV IgM Ab Screen HSV I IgG Index HSV I IgM Ab HSV II IgG Index HSV II IgM 11/09/18 11/09/18 11/08/18 Range/Units 04:54 00:20 17:36 WBC (4.8-10.8) K/uL RBC (3.80-5.20) Mil/uL Hgb (11.0-16.0) g/dL Hct (34.0-47.0) % MCV (81.0-99.0) fL MCH (27.0-31.0) pg MCHC (33.0-37.0) g/dL RDW (11.5-14.5) % Plt Count (130-400) K/uL MPV (7.2-11.7) fL Neut % (Auto) (50.0-75.0) % Lymph % (Auto) (20.0-40.0) % Canadian % (Auto) (0.0-10.0) % Eos % (Auto) (0.0-4.0) % Baso % (Auto) (0.0-2.0) % Neut # (Auto) (1.8-7.0) K/uL Lymph # (Auto) (1.0-4.3) K/uL Canadian # (Auto) (0.0-0.8) K/uL Eos # (Auto) (0.0-0.7) K/uL Baso # (Auto) (0.0-0.2) K/uL Neutrophils % (Manual) (50-75) % Lymphocytes % (Manual) (20-40) % Monocytes % (Manual) (0-10) % Myelocytes % (0-0) % Nucleated RBC % (0-0) % Platelet Estimate (NORMAL) Large Platelets Giant Platelets Polychromasia Hypochromasia (manual) Poikilocytosis (manual Anisocytosis (manual) Microcytosis (manual) Macrocytosis (manual) Spherocytes Target Cells Tear Drop Cells Sodium (132-148) mmol/L Potassium (3.6-5.2) mmol/L Chloride (98-107) mmol/L Carbon Dioxide (22-30) mmol/L Anion Gap (10-20) BUN (7-17) mg/dL Creatinine (0.7-1.2) mg/dL Est GFR ( Amer) Est GFR (Non-Af Amer) POC Glucose (mg/dL) 391 H 461 H* 339 H (65-110) mg/dL Random Glucose (65-105) mg/dL Calcium (8.6-10.4) mg/dl Phosphorus (2.5-4.5) mg/dL Magnesium (1.6-2.3) mg/dL Total Bilirubin (0.2-1.3) mg/dL AST (14-36) U/L ALT (9-52) U/L Alkaline Phosphatase (38-126) U/L Total Protein (6.3-8.3) g/dL Albumin (3.5-5.0) g/dL Globulin (2.2-3.9) gm/dL Albumin/Globulin Ratio (1.0-2.1) CSF VDRL Titer CSF VDRL (Nonreactive) CSF Lyme IgG Antibody CSF Herpes I IgG Index CSF Herpes I IgM Ab CSF Herpes II IgG Index CSF Herpes II IgM Ab Lyme Bands Present Lyme IgM Ab (IFA) HSV IgM Ab Screen HSV I IgG Index HSV I IgM Ab HSV II IgG Index HSV II IgM 11/08/18 11/05/18 11/05/18 Range/Units 11:57 10:54 10:54 WBC (4.8-10.8) K/uL RBC (3.80-5.20) Mil/uL Hgb (11.0-16.0) g/dL Hct (34.0-47.0) % MCV (81.0-99.0) fL MCH (27.0-31.0) pg MCHC (33.0-37.0) g/dL RDW (11.5-14.5) % Plt Count (130-400) K/uL MPV (7.2-11.7) fL Neut % (Auto) (50.0-75.0) % Lymph % (Auto) (20.0-40.0) % Canadian % (Auto) (0.0-10.0) % Eos % (Auto) (0.0-4.0) % Baso % (Auto) (0.0-2.0) % Neut # (Auto) (1.8-7.0) K/uL Lymph # (Auto) (1.0-4.3) K/uL Canadian # (Auto) (0.0-0.8) K/uL Eos # (Auto) (0.0-0.7) K/uL Baso # (Auto) (0.0-0.2) K/uL Neutrophils % (Manual) (50-75) % Lymphocytes % (Manual) (20-40) % Monocytes % (Manual) (0-10) % Myelocytes % (0-0) % Nucleated RBC % (0-0) % Platelet Estimate (NORMAL) Large Platelets Giant Platelets Polychromasia Hypochromasia (manual) Poikilocytosis (manual Anisocytosis (manual) Microcytosis (manual) Macrocytosis (manual) Spherocytes Target Cells Tear Drop Cells Sodium (132-148) mmol/L Potassium (3.6-5.2) mmol/L Chloride (98-107) mmol/L Carbon Dioxide (22-30) mmol/L Anion Gap (10-20) BUN (7-17) mg/dL Creatinine (0.7-1.2) mg/dL Est GFR ( Amer) Est GFR (Non-Af Amer) POC Glucose (mg/dL) 159 H (65-110) mg/dL Random Glucose (65-105) mg/dL Calcium (8.6-10.4) mg/dl Phosphorus (2.5-4.5) mg/dL Magnesium (1.6-2.3) mg/dL Total Bilirubin (0.2-1.3) mg/dL AST (14-36) U/L ALT (9-52) U/L Alkaline Phosphatase (38-126) U/L Total Protein (6.3-8.3) g/dL Albumin (3.5-5.0) g/dL Globulin (2.2-3.9) gm/dL Albumin/Globulin Ratio (1.0-2.1) CSF VDRL Titer TEST NOT PERFORMED CSF VDRL Nonreactive (Nonreactive) CSF Lyme IgG Antibody No bands detected CSF Herpes I IgG Index 0.43 CSF Herpes I IgM Ab Negative CSF Herpes II IgG Index 0.02 CSF Herpes II IgM Ab Negative Lyme Bands Present TEST NOT PERFORMED Lyme IgM Ab (IFA) No bands detected HSV IgM Ab Screen Negative HSV I IgG Index 0.43 HSV I IgM Ab Negative HSV II IgG Index 0.02 HSV II IgM Negative Laboratory Results - last 24 hr 11/05/18 11/05/18 11/08/18 10:54 10:54 11:57 WBC RBC Hgb Hct MCV MCH MCHC RDW Plt Count MPV Neut % (Auto) Lymph % (Auto) Canadian % (Auto) Eos % (Auto) Baso % (Auto) Neut # (Auto) Lymph # (Auto) Canadian # (Auto) Eos # (Auto) Baso # (Auto) Neutrophils % (Manual) Lymphocytes % (Manual) Monocytes % (Manual) Myelocytes % Nucleated RBC % Platelet Estimate Large Platelets Giant Platelets Polychromasia Hypochromasia (manual) Poikilocytosis (manual Anisocytosis (manual) Microcytosis (manual) Macrocytosis (manual) Spherocytes Target Cells Tear Drop Cells Sodium Potassium Chloride Carbon Dioxide Anion Gap BUN Creatinine Est GFR ( Amer) Est GFR (Non-Af Amer) POC Glucose (mg/dL) 159 H Random Glucose Calcium Phosphorus Magnesium Total Bilirubin AST ALT Alkaline Phosphatase Total Protein Albumin Globulin Albumin/Globulin Ratio CSF VDRL Titer TEST NOT PERFORMED CSF VDRL Nonreactive CSF Lyme IgG Antibody No bands detected CSF Herpes I IgG Index 0.43 CSF Herpes I IgM Ab Negative CSF Herpes II IgG Index 0.02 CSF Herpes II IgM Ab Negative Lyme Bands Present TEST NOT PERFORMED Lyme IgM Ab (IFA) No bands detected HSV IgM Ab Screen Negative HSV I IgG Index 0.43 HSV I IgM Ab Negative HSV II IgG Index 0.02 HSV II IgM Negative 11/08/18 11/09/18 11/09/18 17:36 00:20 04:54 WBC RBC Hgb Hct MCV MCH MCHC RDW Plt Count MPV Neut % (Auto) Lymph % (Auto) Canadian % (Auto) Eos % (Auto) Baso % (Auto) Neut # (Auto) Lymph # (Auto) Canadian # (Auto) Eos # (Auto) Baso # (Auto) Neutrophils % (Manual) Lymphocytes % (Manual) Monocytes % (Manual) Myelocytes % Nucleated RBC % Platelet Estimate Large Platelets Giant Platelets Polychromasia Hypochromasia (manual) Poikilocytosis (manual Anisocytosis (manual) Microcytosis (manual) Macrocytosis (manual) Spherocytes Target Cells Tear Drop Cells Sodium Potassium Chloride Carbon Dioxide Anion Gap BUN Creatinine Est GFR ( Amer) Est GFR (Non-Af Amer) POC Glucose (mg/dL) 339 H 461 H* 391 H Random Glucose Calcium Phosphorus Magnesium Total Bilirubin AST ALT Alkaline Phosphatase Total Protein Albumin Globulin Albumin/Globulin Ratio CSF VDRL Titer CSF VDRL CSF Lyme IgG Antibody CSF Herpes I IgG Index CSF Herpes I IgM Ab CSF Herpes II IgG Index CSF Herpes II IgM Ab Lyme Bands Present Lyme IgM Ab (IFA) HSV IgM Ab Screen HSV I IgG Index HSV I IgM Ab HSV II IgG Index HSV II IgM 11/09/18 11/09/18 11/09/18 06:11 06:11 11:46 WBC 11.9 H RBC 2.91 L Hgb 8.9 L Hct 26.0 L MCV 89.6 MCH 30.5 MCHC 34.1 RDW 19.5 H Plt Count 134 MPV 11.2 Neut % (Auto) 78.1 H Lymph % (Auto) 9.6 L Canadian % (Auto) 11.7 H Eos % (Auto) 0.1 Baso % (Auto) 0.5 Neut # (Auto) 9.3 H Lymph # (Auto) 1.1 Canadian # (Auto) 1.4 H Eos # (Auto) 0.0 Baso # (Auto) 0.1 Neutrophils % (Manual) 81 H Lymphocytes % (Manual) 9 L Monocytes % (Manual) 8 Myelocytes % 2 H Nucleated RBC % 1 H Platelet Estimate Normal Large Platelets Present Giant Platelets Present Polychromasia Slight Hypochromasia (manual) Slight Poikilocytosis (manual Slight Anisocytosis (manual) Slight Microcytosis (manual) Slight Macrocytosis (manual) Slight Spherocytes Slight Target Cells Slight Tear Drop Cells Slight Sodium 137 Potassium 3.8 Chloride 101 Carbon Dioxide 24 Anion Gap 16 BUN 67 H Creatinine 3.9 H Est GFR ( Amer) 14 Est GFR (Non-Af Amer) 11 POC Glucose (mg/dL) 193 H Random Glucose 314 H D Calcium 8.4 L Phosphorus 2.7 Magnesium 2.1 Total Bilirubin 0.4 AST 46 H D ALT 24 Alkaline Phosphatase 232 H D Total Protein 5.6 L Albumin 2.8 L Globulin 2.8 Albumin/Globulin Ratio 1.0 CSF VDRL Titer CSF VDRL CSF Lyme IgG Antibody CSF Herpes I IgG Index CSF Herpes I IgM Ab CSF Herpes II IgG Index CSF Herpes II IgM Ab Lyme Bands Present Lyme IgM Ab (IFA) HSV IgM Ab Screen HSV I IgG Index HSV I IgM Ab HSV II IgG Index HSV II IgM Radiology Impressions: Radiology Impressions Chest X-Ray 11/08/18 13:00 IMPRESSION: No acute infiltrate pleural effusion identified. Stable tracheostomy tube identified. Left CVL is been retracted somewhat, terminating at SVC/brachiocephalic vein junction. Fingerstick Blood Sugar Results: 193 Assessment/Plan - Assessment and Plan (Free Text) Plan: Patient is a 72 year old female with PMHx of CKD, CHF, CAD s/p stents, pituitary adenoma a/p resection, DM, who was admitted for respiratory and cardiac arrest s/p permacath placement and AVF on 10/05; possible AMS due to anoxic brain injury, now on HD MWF, tracheostomy on 10/18/17, PEG tube placement 10/23/18. Patient became hypotensive overnight and upgraded to ICU. Permacath removed by surgery on 10/30. A trialysis catheter inserted but dialysis reported the line was not function. A IJ central line inserted for dialysis access. Pt had a LP yesterday (11/05) to r/o meningitis. Pt continues to have diarrhea, feeds changed to Glucerna. The left IJ catheter inserted 11/01 for dialysis was repositioned yesterday due to poor blood return. Patient had Ceretec scan to r/o sites of infection. Neuro - Intubated, agitated - no sedation - continue Keppra and valproate as per neuro - Lumbar puncture 11/05: WBC 1.0, Glucose 129, RBC 0, Total protein 56 - f/u CSF antibodies - f/u Neuro recs Cardiac - Hypertension, improving - continue Norvasc 5mg daily - Echo 11/01: Left Ventricle systolic function is normal; EF is 55-60%; hypertensive heart disease; diastolic dysfunction; no AR, MR, pulmonary hypertension; trace to mild tricuspid regurgitation. - continue to monitor vitals - continue Crestor 10mg, ASA 81mg Pulm Intubated, current vent settings PRVC 14/450/5/35 - Pressure support trials - CXR 11/08: No acute infiltrate pleural effusion identified GI - PEG tube in place - Tube feeds changed to Glucerna - rectal tube in place - protonix ppx - CT abdomen/pelvis 10/30: fluid and gas filled distended rectum versus perirectal abscess. Evidence of anastomotic bowel suture material and/or rectal tube/packing material. - per surgery, no intervention at this time Renal - HD schedule: TTHS - continue Procrit Endo - Hx of Hypothyroidism, continue levothyroxine 50mg - Hx of DM, continue Levemir 40 units HS and Levemir 30 units daily - continue ISS high - Discontinue Solu-Medrol 20mg Q12 Heme - H/H 8.9/26.0 - monitor CBC ID - currently afebrile, Tmax 100.4F - WBC 11.9 today, continue to monitor - continue Abx: Meropenem, Flagyl, Vanco - 10/30 Tracheostomy site, sputum cx positive: Romina Albicans - continue Micafungin 100mg - Decubitus Ulcer, unstageable; wound care following - ESR (+) 99 - CRP (+) 155.70 - f/u Ceretec scan - f/u ID recs - JERRY neg PPx - Protonix for GI ppx - DVT ppx: SCDs, Heparin SC - Tylenol PRN for fever - Hypoglycemic protocol PRN - Patient is DNR Plan discussed with Dr. Tyler Patton, PGY-1 - Date & Time Date: 11/09/18 Time: 10:00 <Bubba Scott - Last Filed: 11/12/18 09:29> CCU Objective - Vital Signs / Intake & Output Vital Signs (Last 4 hours): Vital Signs Temp Pulse Resp BP Pulse Ox 11/12/18 09:07 67 16 104/52 L 100 11/12/18 09:00 76 14 100 11/12/18 08:06 68 16 123/58 L 100 11/12/18 08:00 97.1 F L 68 19 100 11/12/18 07:06 68 12 121/60 100 11/12/18 07:00 67 14 100 11/12/18 06:06 72 13 122/58 L 100 11/12/18 05:36 77 13 143/62 100 Intake and Output (Last 8hrs): Intake & Output 11/11/18 11/12/18 11/12/18 22:59 06:59 14:59 Intake Total 780 160 50 Balance 780 160 50 Weight 208 lb 12.48 oz Intake: Intake, IV Amount 200 100 Left Internal Jugular 100 Right Hand 200 Tube Feeding 480 60 50 Other 100 Other: # Bowel Movements 1 0 - Medications Active Medications: Active Medications Generic Name Dose Route Start Last Admin Trade Name Freq PRN Reason Stop Dose Admin Acetaminophen 650 mg 10/25/18 03:30 11/11/18 08:07 Tylenol 650mg/20.3ml Solution Ud PO 650 mg Q6 PRN Administration pain+fever Amlodipine Besylate 5 mg 11/07/18 11:00 11/12/18 09:09 Norvasc PO 5 mg DAILY JOCELYN Administration Aspirin 81 mg 10/08/18 10:00 11/12/18 09:08 Aspirin Chewable PO 81 mg DAILY JOCELYN Administration Epoetin Dedrick 10,000 unit 11/01/18 14:00 11/10/18 18:17 Procrit IV 10,000 unit TTS JOCELYN Administration Heparin Sodium (Porcine) 1,000 units 11/08/18 07:45 Heparin (For Dialysis) IVP ONCE JOCELYN Vancomycin HCl 500 mg/ Sodium 100 mls @ 100 mls/hr 11/08/18 10:00 11/10/18 10:00 Chloride IVPB 100 mls/hr TTS JOCELYN Administration Protocol Meropenem 500 mg/ Sodium 100 mls @ 100 mls/hr 11/10/18 10:00 11/11/18 09:39 Chloride IVPB 100 mls/hr DAILY JOCELYN Administration Protocol Micafungin Sodium 100 mg/ 100 mls @ 100 mls/hr 11/10/18 19:00 11/11/18 18:01 Dextrose IV 100 mls/hr Q24H JOCELYN Administration Protocol Metronidazole 500 mg in 100 mls @ 100 mls/hr 11/12/18 08:30 11/12/18 08:53 Flagyl IVPB 100 mls/hr Q8H JOCELYN Administration Protocol Insulin Aspart 0 unit 10/31/18 12:00 11/12/18 06:26 Novolog SC Not Given Q6H [facility] Protocol Levetiracetam 1,000 mg 10/28/18 18:00 11/12/18 09:11 Keppra PO 1,000 mg BID JOCELYN Administration Levothyroxine Sodium 50 mcg 09/29/18 08:00 11/12/18 06:02 Synthroid PO 50 mcg 0600 JOCELYN Administration Nystatin 1 applic 11/12/18 10:00 11/12/18 08:59 Nystop Topical Powder TOP 1 applic BID JOCELYN Administration Pantoprazole Sodium 40 mg 10/09/18 06:00 11/12/18 06:02 Protonix Susp PO 40 mg 0600 JOCELYN Administration Rosuvastatin Calcium 10 mg 09/30/18 22:00 11/11/18 21:00 Crestor PO 10 mg HS JOCELYN Administration Saccharomyces Boulardii 250 mg 11/01/18 10:00 11/12/18 09:09 Florastor PO 250 mg TID JOCELYN Administration - Patient Studies Lab Studies: Lab Studies 11/12/18 11/12/18 11/12/18 Range/Units 06:23 06:20 06:11 WBC 17.3 H (4.8-10.8) K/uL RBC 3.23 L (3.80-5.20) Mil/uL Hgb 9.2 L (11.0-16.0) g/dL Hct 30.2 L (34.0-47.0) % MCV 93.5 (81.0-99.0) fL MCH 28.4 (27.0-31.0) pg MCHC 30.4 L (33.0-37.0) g/dL RDW 21.8 H (11.5-14.5) % Plt Count 177 (130-400) K/uL MPV 11.2 (7.2-11.7) fL Neut % (Auto) 76.1 H (50.0-75.0) % Lymph % (Auto) 10.9 L (20.0-40.0) % Canadian % (Auto) 8.1 (0.0-10.0) % Eos % (Auto) 4.5 H (0.0-4.0) % Baso % (Auto) 0.4 (0.0-2.0) % Neut # (Auto) 13.2 H (1.8-7.0) K/uL Lymph # (Auto) 1.9 (1.0-4.3) K/uL Canadian # (Auto) 1.4 H (0.0-0.8) K/uL Eos # (Auto) 0.8 H (0.0-0.7) K/uL Baso # (Auto) 0.1 (0.0-0.2) K/uL Sodium (132-148) mmol/L Potassium (3.6-5.2) mmol/L Chloride (98-107) mmol/L Carbon Dioxide (22-30) mmol/L Anion Gap (10-20) BUN (7-17) mg/dL Creatinine (0.7-1.2) mg/dL Est GFR ( Amer) Est GFR (Non-Af Amer) POC Glucose (mg/dL) 70 59 L (65-110) mg/dL Random Glucose (65-105) mg/dL Calcium (8.6-10.4) mg/dl Phosphorus (2.5-4.5) mg/dL Magnesium (1.6-2.3) mg/dL Total Bilirubin (0.2-1.3) mg/dL AST (14-36) U/L ALT (9-52) U/L Alkaline Phosphatase (38-126) U/L Total Protein (6.3-8.3) g/dL Albumin (3.5-5.0) g/dL Globulin (2.2-3.9) gm/dL Albumin/Globulin Ratio (1.0-2.1) 11/12/18 11/11/18 11/11/18 Range/Units 06:09 23:46 17:37 WBC (4.8-10.8) K/uL RBC (3.80-5.20) Mil/uL Hgb (11.0-16.0) g/dL Hct (34.0-47.0) % MCV (81.0-99.0) fL MCH (27.0-31.0) pg MCHC (33.0-37.0) g/dL RDW (11.5-14.5) % Plt Count (130-400) K/uL MPV (7.2-11.7) fL Neut % (Auto) (50.0-75.0) % Lymph % (Auto) (20.0-40.0) % Canadian % (Auto) (0.0-10.0) % Eos % (Auto) (0.0-4.0) % Baso % (Auto) (0.0-2.0) % Neut # (Auto) (1.8-7.0) K/uL Lymph # (Auto) (1.0-4.3) K/uL Canadian # (Auto) (0.0-0.8) K/uL Eos # (Auto) (0.0-0.7) K/uL Baso # (Auto) (0.0-0.2) K/uL Sodium 138 (132-148) mmol/L Potassium 5.4 H (3.6-5.2) mmol/L Chloride 104 (98-107) mmol/L Carbon Dioxide 21 L (22-30) mmol/L Anion Gap 18 (10-20) BUN 87 H (7-17) mg/dL Creatinine 4.6 H (0.7-1.2) mg/dL Est GFR ( Amer) 11 Est GFR (Non-Af Amer) 9 POC Glucose (mg/dL) 125 H 87 (65-110) mg/dL Random Glucose 49 L D (65-105) mg/dL Calcium 7.6 L (8.6-10.4) mg/dl Phosphorus 7.8 H (2.5-4.5) mg/dL Magnesium 2.2 (1.6-2.3) mg/dL Total Bilirubin 0.6 (0.2-1.3) mg/dL AST 49 H D (14-36) U/L ALT 22 (9-52) U/L Alkaline Phosphatase 146 H (38-126) U/L Total Protein 6.0 L (6.3-8.3) g/dL Albumin 3.0 L (3.5-5.0) g/dL Globulin 3.0 (2.2-3.9) gm/dL Albumin/Globulin Ratio 1.0 (1.0-2.1) 11/11/18 Range/Units 12:01 WBC (4.8-10.8) K/uL RBC (3.80-5.20) Mil/uL Hgb (11.0-16.0) g/dL Hct (34.0-47.0) % MCV (81.0-99.0) fL MCH (27.0-31.0) pg MCHC (33.0-37.0) g/dL RDW (11.5-14.5) % Plt Count (130-400) K/uL MPV (7.2-11.7) fL Neut % (Auto) (50.0-75.0) % Lymph % (Auto) (20.0-40.0) % [place] % (Auto) (0.0-10.0) % Eos % (Auto) (0.0-4.0) % Baso % (Auto) (0.0-2.0) % Neut # (Auto) (1.8-7.0) K/uL Lymph # (Auto) (1.0-4.3) K/uL Canadian # (Auto) (0.0-0.8) K/uL Eos # (Auto) (0.0-0.7) K/uL Baso # (Auto) (0.0-0.2) K/uL Sodium (132-148) mmol/L Potassium (3.6-5.2) mmol/L Chloride (98-107) mmol/L Carbon Dioxide (22-30) mmol/L Anion Gap (10-20) BUN (7-17) mg/dL Creatinine (0.7-1.2) mg/dL Est GFR ( Amer) Est GFR (Non-Af Amer) POC Glucose (mg/dL) 137 H (65-110) mg/dL Random Glucose (65-105) mg/dL Calcium (8.6-10.4) mg/dl Phosphorus (2.5-4.5) mg/dL Magnesium (1.6-2.3) mg/dL Total Bilirubin (0.2-1.3) mg/dL AST (14-36) U/L ALT (9-52) U/L Alkaline Phosphatase (38-126) U/L Total Protein (6.3-8.3) g/dL Albumin (3.5-5.0) g/dL Globulin (2.2-3.9) gm/dL Albumin/Globulin Ratio (1.0-2.1) Laboratory Results - last 24 hr 11/11/18 11/11/18 11/11/18 12:01 17:37 23:46 WBC RBC Hgb Hct MCV MCH MCHC RDW Plt Count MPV Neut % (Auto) Lymph % (Auto) Canadian % (Auto) Eos % (Auto) Baso % (Auto) Neut # (Auto) Lymph # (Auto) Canadian # (Auto) Eos # (Auto) Baso # (Auto) Sodium Potassium Chloride Carbon Dioxide Anion Gap BUN Creatinine Est GFR ( Amer) Est GFR (Non-Af Amer) POC Glucose (mg/dL) 137 H 87 125 H Random Glucose Calcium Phosphorus Magnesium Total Bilirubin AST ALT Alkaline Phosphatase Total Protein Albumin Globulin Albumin/Globulin Ratio 11/12/18 11/12/18 11/12/18 06:09 06:11 06:20 WBC 17.3 H RBC 3.23 L Hgb 9.2 L Hct 30.2 L MCV 93.5 MCH 28.4 MCHC 30.4 L RDW 21.8 H Plt Count 177 MPV 11.2 Neut % (Auto) 76.1 H Lymph % (Auto) 10.9 L Canadian % (Auto) 8.1 Eos % (Auto) 4.5 H Baso % (Auto) 0.4 Neut # (Auto) 13.2 H Lymph # (Auto) 1.9 Canadian # (Auto) 1.4 H Eos # (Auto) 0.8 H Baso # (Auto) 0.1 Sodium 138 Potassium 5.4 H Chloride 104 Carbon Dioxide 21 L Anion Gap 18 BUN 87 H Creatinine 4.6 H Est GFR ( Amer) 11 Est GFR (Non-Af Amer) 9 POC Glucose (mg/dL) 59 L Random Glucose 49 L D Calcium 7.6 L Phosphorus 7.8 H Magnesium 2.2 Total Bilirubin 0.6 AST 49 H D ALT 22 Alkaline Phosphatase 146 H Total Protein 6.0 L Albumin 3.0 L Globulin 3.0 Albumin/Globulin Ratio 1.0 11/12/18 06:23 WBC RBC Hgb Hct MCV MCH MCHC RDW Plt Count MPV Neut % (Auto) Lymph % (Auto) Canadian % (Auto) Eos % (Auto) Baso % (Auto) Neut # (Auto) Lymph # (Auto) Canadian # (Auto) Eos # (Auto) Baso # (Auto) Sodium Potassium Chloride Carbon Dioxide Anion Gap BUN Creatinine Est GFR ( Amer) Est GFR (Non-Af Amer) POC Glucose (mg/dL) 70 Random Glucose Calcium Phosphorus Magnesium Total Bilirubin AST ALT Alkaline Phosphatase Total Protein Albumin Globulin Albumin/Globulin Ratio Attending/Attestation - Attestation I have personally seen and examined this patient.: Yes I have fully participated in the care of the patient.: Yes I have reviewed all pertinent clinical information: Yes Notes (Text): 11/09/18 Today: Friday, November 09, 2018 The Patient was seen and examined at the bedside, Medical records reviewed, and management issues were discussed and formulated with the house staff. I have reviewed all the relevant clinical, laboratory, hemodynamic, radiographic data and medications Events reviewed Pain issues, skin care, head of the bed elevation, glycemic control were addressed. Agree with above resident's assessment and treatment plans of care as transcribed in Dr. Patton's note.
[2018-11-09] MEDS: Micafungin 100 MG in Sodium Chloride 0.9% 100 ML IV SCH (18:18)
--- NOTE | 2018-11-09 21:53 | CP.PCM.PN ---
Subjective - Date & Time of Evaluation Date of Evaluation: 11/09/18 Time of Evaluation: 14:10 - Subjective Subjective: Patient seen and examined. On Ventilator PE Head: Positive for: Atraumatic, Normocephalic Extroacular Muscles: Positive for: EOMI (dropping eyelid left) Conjunctiva: Positive for: Normal Mouth: Positive for: Dry Neck: Positive for: Other (tracheostomy in place with vent, trialysis cath on left side neck area) Respiratory/Chest: Positive for: Decreased Breath Sounds, Other (intubated ). Negative for: Respiratory Distress, Accessory Muscle Use, Tachypneic Cardiovascular: Positive for: Regular Rate and Rhythm, Normal S1, S2 Abdomen: Positive for: Normal Bowel Sounds, Other (PEG tube in place ). Negative for: Tenderness, Distention, Rebound, Guarding Upper Extremity: Positive for: Normal Inspection. Negative for: Cyanosis, Edema Lower Extremity: Positive for: Normal Inspection. Negative for: Edema Neurological: Negative for: GCS=15, CN II-XII Intact, Speech Normal Skin: Positive for: Warm, Dry, Normal Color Psychiatric: Negative for: Alert, Oriented x 3, Normal Insight, Normal Concentration Objective - Vital Signs/Intake and Output Vital Signs (last 24 hours): Temp Pulse Resp BP Pulse Ox 98.9 F 91 H 21 153/76 H 100 11/09/18 20:00 11/09/18 20:18 11/09/18 20:18 11/09/18 20:18 11/09/18 20:18 Intake and Output: 11/09/18 11/10/18 18:59 06:59 Intake Total 1060 180 Output Total 175 0 Balance 885 180 - Medications Medications: Current Medications Acetaminophen (Tylenol 650mg/20.3ml Solution Ud) 650 mg PO Q6 PRN PRN Reason: pain+fever Last Admin: 11/05/18 09:09 Dose: 650 mg Amlodipine Besylate (Norvasc) 5 mg PO DAILY [facility] Last Admin: 11/09/18 09:30 Dose: 5 mg Aspirin (Aspirin Chewable) 81 mg PO DAILY [facility] Last Admin: 11/09/18 09:29 Dose: 81 mg Dextrose (Dextrose 50% Inj) 0 ml IV STAT PRN; Protocol PRN Reason: Hypoglycemia Protocol Dextrose (Glutose 15) 0 gm PO ONCE PRN; Protocol PRN Reason: Hypoglycemia Protocol Dextrose (Dextrose 50% Inj) 0 ml IV STAT PRN; Protocol PRN Reason: Hypoglycemia Protocol Dextrose (Glutose 15) 0 gm PO ONCE PRN; Protocol PRN Reason: Hypoglycemia Protocol Epoetin Dedrick (Procrit) 10,000 unit IV TTS [facility] Last Admin: 11/08/18 10:33 Dose: 10,000 unit Glucagon (Glucagen Diagnostic Kit) 0 mg IM STAT PRN; Protocol PRN Reason: Hypoglycemia Protocol Glucagon (Glucagen Diagnostic Kit) 0 mg IM STAT PRN; Protocol PRN Reason: Hypoglycemia Protocol Heparin Sodium (Porcine) (Heparin (For Dialysis)) 1,000 units IVP ONCE [facility] Metronidazole (Flagyl) 500 mg in 100 mls @ 100 mls/hr IVPB Q8H [facility]; Protocol Last Admin: 11/09/18 21:06 Dose: 100 mls/hr Dextrose (Dextrose 5% In Water 1000 Ml) 1,000 mls @ 0 mls/hr IV .Q0M PRN; Protocol PRN Reason: Hypoglycemia Protocol Vancomycin HCl 500 mg/ Sodium (Chloride) 100 mls @ 100 mls/hr IVPB TTS [facility]; Protocol Meropenem 500 mg/ Sodium (Chloride) 100 mls @ 100 mls/hr IVPB DAILY [facility]; Protocol Micafungin Sodium 100 mg/ (Dextrose) 100 mls @ 100 mls/hr IV Q24H [facility]; Protocol Insulin Aspart (Novolog) 0 unit SC Q6H [facility]; Protocol Last Admin: 11/09/18 18:18 Dose: 2 u Insulin Detemir (Levemir) 40 unit SC HS [facility] Last Admin: 11/09/18 21:06 Dose: 40 u Insulin Detemir (Levemir) 30 unit SC DAILY [facility] Last Admin: 11/09/18 09:30 Dose: 30 u Levetiracetam (Keppra) 1,000 mg PO BID [facility] Last Admin: 11/09/18 17:12 Dose: 1,000 mg Levothyroxine Sodium (Synthroid) 50 mcg PO 0600 [facility] Last Admin: 11/09/18 05:54 Dose: 50 mcg Pantoprazole Sodium (Protonix Susp) 40 mg PO 0600 [facility] Last Admin: 11/09/18 05:54 Dose: 40 mg Rosuvastatin Calcium (Crestor) 10 mg PO HS [facility] Last Admin: 11/09/18 21:06 Dose: 10 mg Saccharomyces Boulardii (Florastor) 250 mg PO TID [facility] Last Admin: 11/09/18 17:12 Dose: 250 mg - Labs Labs: 11/09/18 06:11 11/09/18 06:11 PT 14.3 SECONDS (9.7-12.2) H 11/05/18 05:52 INR 1.3 11/05/18 05:52 APTT 43 SECONDS (21-34) H 11/05/18 05:52 Assessment and Plan - Assessment and Plan (Free Text) Assessment: Patient is a 72 year old female with PMHx of CKD, CHF, CAD s/p stents, pituitary adenoma a/p resection, DM, who was admitted for respiratory and cardiac arrest s/p permacath placement and AVF on 10/05; possible AMS due to anoxic brain injury, now on HD MWF, tracheostomy on 10/18/17, PEG tube placement 10/23/18. Patient became hypotensive overnight and upgraded to ICU. Permacath removed by surgery on 10/30. A trialysis catheter inserted but dialysis reported the line was not function. A IJ central line inserted for dialysis access. Pt had a LP yesterday (11/05) to r/o meningitis. Pt continues to have diarrhea, feeds changed to Glucerna. The left IJ catheter inserted 11/01 for dialysis was repositioned yesterday due to poor blood return. Patient had Ceretec scan to r/o sites of infection. Neuro - Intubated, agitated - no sedation - continue Keppra and valproate as per neuro - Lumbar puncture 11/05: WBC 1.0, Glucose 129, RBC 0, Total protein 56 - f/u CSF antibodies - f/u Neuro recs Cardiac - Hypertension, improving - continue Norvasc 5mg daily - Echo 11/01: Left Ventricle systolic function is normal; EF is 55-60%; hypertensive heart disease; diastolic dysfunction; no AR, MR, pulmonary hypertension; trace to mild tricuspid regurgitation. - continue to monitor vitals - continue Crestor 10mg, ASA 81mg Pulm Intubated, current vent settings PRVC 14/450/5/35 - Pressure support trials - CXR 11/08: No acute infiltrate pleural effusion identified GI - PEG tube in place - Tube feeds changed to Glucerna - rectal tube in place - protonix ppx - CT abdomen/pelvis 10/30: fluid and gas filled distended rectum versus perirectal abscess. Evidence of anastomotic bowel suture material and/or rectal tube/packing material. - per surgery, no intervention at this time Renal - HD schedule: TTHS - continue Procrit Endo - Hx of Hypothyroidism, continue levothyroxine 50mg - Hx of DM, continue Levemir 40 units HS and Levemir 30 units daily - continue ISS high - Discontinue Solu-Medrol 20mg Q12 Heme - H/H 8.9/26.0 - monitor CBC ID - currently afebrile, Tmax 100.4F - WBC 11.9 today, continue to monitor - continue Abx: Meropenem, Flagyl, Vanco - 10/30 Tracheostomy site, sputum cx positive: Romina Albicans - continue Micafungin 100mg - Decubitus Ulcer, unstageable; wound care following - ESR (+) 99 - CRP (+) 155.70 - f/u Ceretec scan - f/u ID recs - JERRY neg PPx - Protonix for GI ppx - DVT ppx: SCDs, Heparin SC - Tylenol PRN for fever - Hypoglycemic protocol PRN - Patient is DNR
[2018-11-10] MEDS: metroNIDAZOLE IV 500 mg/100 ml 500 MG/100 ML BAG IVPB SCH ×3 (05:30→21:16)
[2018-11-10] MEDS: Pantoprazole 40 mg Susp UD PO SCH (05:57)
[2018-11-10] MEDS: Levothyroxine 50 MCG TAB PO SCH (05:57)
[2018-11-10] MEDS: (Novolog) Insulin Aspart, Recombinant 100 u/ml 10 ml vial SC SCH ×3 (06:00→18:00)
[2018-11-10 06:44] LABS: BASO # 0.1 K/uL (0.0-0.2); BASO % 0.4 % (0.0-2.0); EOS # 0.4 K/uL (0.0-0.7); EOS % 2.8 % (0.0-4.0); LYMPH # 1.6 K/uL (1.0-4.3); LYMPH % 12.6 % (20.0-40.0); MEAN CELL VOLUME 91.4 fL (81.0-99.0); MEAN CORPUSCULAR HGB CONC 30.6 g/dL (33.0-37.0); MEAN PLATELET VOLUME 11.3 fL (7.2-11.7); MONO % 7.9 % (0.0-10.0); NEUT # 9.9 K/uL (1.8-7.0); NEUT % 76.3 % (50.0-75.0); NRBC % 0.4 % (0.0-2.0); RBC 3.94 Mil/uL (3.80-5.20); RED CELL DISTRIBUTION WIDTH 20.2 % (11.5-14.5)
[2018-11-10 07:04] LABS: ALBUMIN 3.2 g/dL (3.5-5.0); CALCIUM 8.2 mg/dl (8.6-10.4)
--- NOTE | 2018-11-10 08:40 | CP.PCM.PN ---
Subjective - Date & Time of Evaluation Date of Evaluation: 11/10/18 Time of Evaluation: 08:39 - Subjective Subjective: Patient's condition remains same. She is responding to stimuli. But she is not following commands, she is not also opening her eyes. Low-grade fever still persistently noted but better than before. Blood pressure is also improving. On examination: Vital signs are stable. Mild tachycardia noted. Chest good air entry Regular heart sounds noted Edema in the legs noted Patient is currently DNR. Labs reviewed WBC 13 platelet improving serological testing is negative CSF also negative chemistry nonspecific. Chest x-ray no evidence of any acute changes noted patient had a Ceretec scan pending results. Assessment and recommendation: 72-year-old female with a history of CAD hypertension hypercholesterolemia end- stage renal disease on dialysis now. Sustained a cardiac arrest. Questionable anoxia noted. Status post a tracheostomy and a PEG tube. On dialysis. We will continue the current treatment. Out of bed to chair and will follow the patient Objective - Vital Signs/Intake and Output Vital Signs (last 24 hours): Temp Pulse Resp BP Pulse Ox 99.0 F 114 H 20 166/79 H 100 11/10/18 04:00 11/10/18 06:25 11/10/18 06:25 11/10/18 06:25 11/10/18 06:25 Intake and Output: 11/10/18 11/10/18 06:59 18:59 Intake Total 980 Output Total 150 Balance 830 - Medications Medications: Current Medications Acetaminophen (Tylenol 650mg/20.3ml Solution Ud) 650 mg PO Q6 PRN PRN Reason: pain+fever Last Admin: 11/05/18 09:09 Dose: 650 mg Amlodipine Besylate (Norvasc) 5 mg PO DAILY [facility] Last Admin: 11/09/18 09:30 Dose: 5 mg Aspirin (Aspirin Chewable) 81 mg PO DAILY [facility] Last Admin: 11/09/18 09:29 Dose: 81 mg Epoetin Dedrick (Procrit) 10,000 unit IV TTS [facility] Last Admin: 11/08/18 10:33 Dose: 10,000 unit Heparin Sodium (Porcine) (Heparin (For Dialysis)) 1,000 units IVP ONCE [facility] Metronidazole (Flagyl) 500 mg in 100 mls @ 100 mls/hr IVPB Q8H [facility]; Protocol Last Admin: 11/10/18 05:30 Dose: 100 mls/hr Vancomycin HCl 500 mg/ Sodium (Chloride) 100 mls @ 100 mls/hr IVPB TTS [facility]; Protocol Meropenem 500 mg/ Sodium (Chloride) 100 mls @ 100 mls/hr IVPB DAILY [facility]; Protocol Micafungin Sodium 100 mg/ (Dextrose) 100 mls @ 100 mls/hr IV Q24H [facility]; Protocol Insulin Aspart (Novolog) 0 unit SC Q6H [facility]; Protocol Last Admin: 11/10/18 06:00 Dose: 2 u Insulin Detemir (Levemir) 40 unit SC HS [facility] Last Admin: 11/09/18 21:06 Dose: 40 u Insulin Detemir (Levemir) 30 unit SC DAILY [facility] Last Admin: 11/09/18 09:30 Dose: 30 u Levetiracetam (Keppra) 1,000 mg PO BID [facility] Last Admin: 11/09/18 17:12 Dose: 1,000 mg Levothyroxine Sodium (Synthroid) 50 mcg PO 0600 [facility] Last Admin: 11/10/18 05:57 Dose: 50 mcg Pantoprazole Sodium (Protonix Susp) 40 mg PO 0600 [facility] Last Admin: 11/10/18 05:57 Dose: 40 mg Rosuvastatin Calcium (Crestor) 10 mg PO HS [facility] Last Admin: 11/09/18 21:06 Dose: 10 mg Saccharomyces Boulardii (Florastor) 250 mg PO TID [facility] Last Admin: 11/09/18 17:12 Dose: 250 mg - Labs Labs: 11/10/18 06:40 11/10/18 06:40 PT 14.3 SECONDS (9.7-12.2) H 11/05/18 05:52 INR 1.3 11/05/18 05:52 APTT 43 SECONDS (21-34) H 11/05/18 05:52 Assessment and Plan (1) Acute on chronic renal failure Status: Acute (2) Diabetic nephropathy associated with type 2 diabetes mellitus Status: Acute (3) Uremia, acute Status: Acute
[2018-11-10] MEDS: levETIRAcetam 100 mg/ml (5ml) Oral Syringe PO SCH ×2 (09:49→19:21)
[2018-11-10] MEDS: Acetaminophen 650mg/20.3ml solution UD PO PRN ×2 (09:51→21:18)
[2018-11-10] MEDS: Saccharomyces Boulardi 250 mg Cap PO SCH ×3 (09:57→19:19)
[2018-11-10] MEDS: Insulin Detemir 100 units/ml Vial (Levemir) SC SCH ×2 (09:58→22:00)
[2018-11-10] MEDS: Meropenem 500 MG in Sodium Chloride 0.9% 100 ML IVPB SCH (10:00)
--- NOTE | 2018-11-10 10:43 | CP.PCM.PN ---
Subjective - Date & Time of Evaluation Date of Evaluation: 11/10/18 Time of Evaluation: 10:40 - Subjective Subjective: Notes reviewed Patient remains in icu Poorly responsive Care reviewed with nursing staff and family at bedside Now dnr Dialysis planned today ROS unobtainable due to ams Objective - Vital Signs/Intake and Output Vital Signs (last 24 hours): Temp Pulse Resp BP Pulse Ox 100.8 F H 105 H 21 137/74 100 11/10/18 09:51 11/10/18 09:18 11/10/18 09:18 11/10/18 09:18 11/10/18 09:18 Intake and Output: 11/10/18 11/10/18 06:59 18:59 Intake Total 980 120 Output Total 150 Balance 830 120 - Medications Medications: Current Medications Acetaminophen (Tylenol 650mg/20.3ml Solution Ud) 650 mg PO Q6 PRN PRN Reason: pain+fever Last Admin: 11/10/18 09:51 Dose: 650 mg Amlodipine Besylate (Norvasc) 5 mg PO DAILY [facility] Last Admin: 11/10/18 09:52 Dose: 5 mg Aspirin (Aspirin Chewable) 81 mg PO DAILY [facility] Last Admin: 11/10/18 09:50 Dose: 81 mg Epoetin Dedrick (Procrit) 10,000 unit IV TTS [facility] Last Admin: 11/08/18 10:33 Dose: 10,000 unit Heparin Sodium (Porcine) (Heparin (For Dialysis)) 1,000 units IVP ONCE [facility] Metronidazole (Flagyl) 500 mg in 100 mls @ 100 mls/hr IVPB Q8H [facility]; Protocol Last Admin: 11/10/18 05:30 Dose: 100 mls/hr Vancomycin HCl 500 mg/ Sodium (Chloride) 100 mls @ 100 mls/hr IVPB TTS [facility]; Protocol Last Admin: 11/10/18 10:00 Dose: 100 mls/hr Meropenem 500 mg/ Sodium (Chloride) 100 mls @ 100 mls/hr IVPB DAILY [facility]; Protocol Last Admin: 11/10/18 10:00 Dose: 100 mls/hr Micafungin Sodium 100 mg/ (Dextrose) 100 mls @ 100 mls/hr IV Q24H [facility]; Protocol Insulin Aspart (Novolog) 0 unit SC Q6H [facility]; Protocol Last Admin: 11/10/18 06:00 Dose: 2 u Insulin Detemir (Levemir) 40 unit SC [facility] Last Admin: 11/09/18 21:06 Dose: 40 u Insulin Detemir (Levemir) 30 unit SC DAILY [facility] Last Admin: 11/10/18 09:58 Dose: 30 u Levetiracetam (Keppra) 1,000 mg PO BID [facility] Last Admin: 11/10/18 09:49 Dose: 1,000 mg Levothyroxine Sodium (Synthroid) 50 mcg PO 0600 [facility] Last Admin: 11/10/18 05:57 Dose: 50 mcg Pantoprazole Sodium (Protonix Susp) 40 mg PO 0600 [facility] Last Admin: 11/10/18 05:57 Dose: 40 mg Rosuvastatin Calcium (Crestor) 10 mg PO [facility] Last Admin: 11/09/18 21:06 Dose: 10 mg Saccharomyces Boulardii (Florastor) 250 mg PO TID [facility] Last Admin: 11/10/18 09:57 Dose: 250 mg - Labs Labs: 11/10/18 06:40 11/10/18 06:40 PT 14.3 SECONDS (9.7-12.2) H 11/05/18 05:52 INR 1.3 11/05/18 05:52 APTT 43 SECONDS (21-34) H 11/05/18 05:52 - Constitutional Appears: Toxic, Confused - Head Exam Head Exam: ATRAUMATIC, NORMAL INSPECTION - Eye Exam Eye Exam: absent: Conjunctival injection, Scleral icterus - ENT Exam ENT Exam: Mucous Membranes Moist, Normal Oropharynx - Neck Exam Neck Exam: absent: Lymphadenopathy, Thyromegaly - Respiratory Exam Respiratory Exam: Wheezes. absent: Rales - Cardiovascular Exam Cardiovascular Exam: +S1, +S2. absent: Rubs - GI/Abdominal Exam GI & Abdominal Exam: Soft, Normal Bowel Sounds - Extremities Exam Extremities Exam: Pedal Edema. absent: Joint Swelling - Neurological Exam Neurological Exam: absent: Awake, Oriented x3 - Skin Skin Exam: Dry, Intact, Warm Assessment and Plan (1) Respiratory failure Status: Acute (2) ESRD (end stage renal disease) Status: Acute (3) CAD (coronary artery disease) Status: Acute (4) CHF (congestive heart failure) Status: Acute (5) Diabetes Status: Acute (6) HTN (hypertension) Status: Acute (7) Hyperglycemia Status: Acute - Assessment and Plan (Free Text) Assessment: Dialysis today UF as tolerated Continue supportive care Feeding as ordered Respiratory management per icu team DNR status noted
[2018-11-10] MEDS: Epoetin Alfa 10,000 unit/ml Dialysis IV SCH (18:17)
[2018-11-10] MEDS: Micafungin 100 MG in Dextrose 5% In Water 100 ML IV SCH (19:45)
[2018-11-11] MEDS: (Novolog) Insulin Aspart, Recombinant 100 u/ml 10 ml vial SC SCH ×4 (00:12→17:38)
[2018-11-11] MEDS: metroNIDAZOLE IV 500 mg/100 ml 500 MG/100 ML BAG IVPB SCH ×3 (05:09→20:31)
[2018-11-11] MEDS: Pantoprazole 40 mg Susp UD PO SCH (05:45)
[2018-11-11] MEDS: Levothyroxine 50 MCG TAB PO SCH (05:45)
[2018-11-11 06:37] LABS: BASO % 0.2 % (0.0-2.0); EOS # 0.6 K/uL (0.0-0.7); EOS % 3.7 % (0.0-4.0); HEMOGLOBIN 9.9 g/dL (11.0-16.0); LYMPH # 1.8 K/uL (1.0-4.3); MEAN CELL VOLUME 91.7 fL (81.0-99.0); MEAN CORPUSCULAR HEMOGLOBIN 27.9 pg (27.0-31.0); MEAN CORPUSCULAR HGB CONC 30.5 g/dL (33.0-37.0); MEAN PLATELET VOLUME 10.3 fL (7.2-11.7); MONO % 6.5 % (0.0-10.0); NEUT # 11.8 K/uL (1.8-7.0); NEUT % 77.6 % (50.0-75.0); RBC 3.55 Mil/uL (3.80-5.20); RED CELL DISTRIBUTION WIDTH 20.5 % (11.5-14.5); WHITE BLOOD COUNT 15.3 K/uL (4.8-10.8)
[2018-11-11 06:53] LABS: ALBUMIN 2.8 g/dL (3.5-5.0); CALCIUM 7.7 mg/dl (8.6-10.4)
[2018-11-11] MEDS: Acetaminophen 650mg/20.3ml solution UD PO PRN (08:07)
[2018-11-11] MEDS: Insulin Detemir 100 units/ml Vial (Levemir) SC SCH ×2 (09:37→21:00)
[2018-11-11] MEDS: levETIRAcetam 100 mg/ml (5ml) Oral Syringe PO SCH ×2 (09:37→17:38)
[2018-11-11] MEDS: Saccharomyces Boulardi 250 mg Cap PO SCH ×3 (09:38→17:38)
[2018-11-11] MEDS: Meropenem 500 MG in Sodium Chloride 0.9% 100 ML IVPB SCH (09:39)
--- NOTE | 2018-11-11 15:06 | CP.PCM.PN ---
Subjective - Date & Time of Evaluation Date of Evaluation: 11/10/18 Time of Evaluation: 07:35 - Subjective Subjective: Patient seen and examined. On Ventilator PE Head: Positive for: Atraumatic, Normocephalic Extroacular Muscles: Positive for: EOMI (dropping eyelid left) Conjunctiva: Positive for: Normal Mouth: Positive for: Dry Neck: Positive for: Other (tracheostomy in place with vent, trialysis cath on left side neck area) Respiratory/Chest: Positive for: Decreased Breath Sounds, Other (intubated ). Negative for: Respiratory Distress, Accessory Muscle Use, Tachypneic Cardiovascular: Positive for: Regular Rate and Rhythm, Normal S1, S2 Abdomen: Positive for: Normal Bowel Sounds, Other (PEG tube in place ). Negative for: Tenderness, Distention, Rebound, Guarding Upper Extremity: Positive for: Normal Inspection. Negative for: Cyanosis, Edema Lower Extremity: Positive for: Normal Inspection. Negative for: Edema Neurological: Negative for: GCS=15, CN II-XII Intact, Speech Normal Skin: Positive for: Warm, Dry, Normal Color Psychiatric: Negative for: Alert, Oriented x 3, Normal Insight, Normal Concentration Assessment and Plan - Assessment and Plan (Free Text) Assessment: Patient is a 72 year old female with PMHx of CKD, CHF, CAD s/p stents, pituitary adenoma a/p resection, DM, who was admitted for respiratory and cardiac arrest s/p permacath placement and AVF on 10/05; possible AMS due to anoxic brain injury, now on HD MWF, tracheostomy on 10/18/17, PEG tube placement 10/23/18. Patient became hypotensive overnight and upgraded to ICU. Permacath removed by surgery on 10/30. A trialysis catheter inserted but dialysis reported the line was not function. A IJ central line inserted for dialysis access. Pt had a LP yesterday (11/05) to r/o meningitis. Pt continues to have diarrhea, feeds changed to Glucerna. The left IJ catheter inserted 11/01 for dialysis was repositioned yesterday due to poor blood return. Patient had Ceretec scan to r/o sites of infection. Neuro - Intubated, agitated - no sedation - continue Keppra and valproate as per neuro - Lumbar puncture 11/05: WBC 1.0, Glucose 129, RBC 0, Total protein 56 - f/u CSF antibodies - f/u Neuro recs Cardiac - Hypertension, improving - continue Norvasc 5mg daily - Echo 11/01: Left Ventricle systolic function is normal; EF is 55-60%; hypertensive heart disease; diastolic dysfunction; no AR, MR, pulmonary hypertension; trace to mild tricuspid regurgitation. - continue to monitor vitals - continue Crestor 10mg, ASA 81mg Pulm Intubated, current vent settings PRVC 14/450/5/35 - Pressure support trials - CXR 11/08: No acute infiltrate pleural effusion identified GI - PEG tube in place - Tube feeds changed to Glucerna - rectal tube in place - protonix ppx - CT abdomen/pelvis 10/30: fluid and gas filled distended rectum versus perirectal abscess. Evidence of anastomotic bowel suture material and/or rectal tube/packing material. - per surgery, no intervention at this time Renal - HD schedule: TTHS - continue Procrit Endo - Hx of Hypothyroidism, continue levothyroxine 50mg - Hx of DM, continue Levemir 40 units HS and Levemir 30 units daily - continue ISS high - Discontinue Solu-Medrol 20mg Q12 Heme - H/H 8.9/26.0 - monitor CBC ID - currently afebrile, Tmax 100.4F - WBC 11.9 today, continue to monitor - continue Abx: Meropenem, Flagyl, Vanco - 10/30 Tracheostomy site, sputum cx positive: Romina Albicans - continue Micafungin 100mg - Decubitus Ulcer, unstageable; wound care following - ESR (+) 99 - CRP (+) 155.70 - f/u Ceretec scan - f/u ID recs - JERRY neg PPx - Protonix for GI ppx - DVT ppx: SCDs, Heparin SC - Tylenol PRN for fever - Hypoglycemic protocol PRN - Patient is DNR Objective - Vital Signs/Intake and Output Vital Signs (last 24 hours): Temp Pulse Resp BP Pulse Ox 100.4 F H 84 17 121/60 91 L 11/11/18 09:07 11/11/18 11:06 11/11/18 11:06 11/11/18 11:06 11/11/18 11:06 Intake and Output: 11/11/18 11/11/18 06:59 18:59 Intake Total 960 460 Output Total 500 Balance 460 460 - Medications Medications: Current Medications Acetaminophen (Tylenol 650mg/20.3ml Solution Ud) 650 mg PO Q6 PRN PRN Reason: pain+fever Last Admin: 11/11/18 08:07 Dose: 650 mg Amlodipine Besylate (Norvasc) 5 mg PO DAILY [facility] Last Admin: 11/11/18 09:38 Dose: 5 mg Aspirin (Aspirin Chewable) 81 mg PO DAILY [facility] Last Admin: 11/11/18 09:38 Dose: 81 mg Epoetin Dedrick (Procrit) 10,000 unit IV TTS [facility] Last Admin: 11/10/18 18:17 Dose: 10,000 unit Heparin Sodium (Porcine) (Heparin (For Dialysis)) 1,000 units IVP ONCE [facility] Metronidazole (Flagyl) 500 mg in 100 mls @ 100 mls/hr IVPB Q8H [facility]; Protocol Last Admin: 11/11/18 12:29 Dose: 100 mls/hr Vancomycin HCl 500 mg/ Sodium (Chloride) 100 mls @ 100 mls/hr IVPB TTS [facility]; Protocol Last Admin: 11/10/18 10:00 Dose: 100 mls/hr Meropenem 500 mg/ Sodium (Chloride) 100 mls @ 100 mls/hr IVPB DAILY [facility]; Protocol Last Admin: 11/11/18 09:39 Dose: 100 mls/hr Micafungin Sodium 100 mg/ (Dextrose) 100 mls @ 100 mls/hr IV Q24H [facility]; Protocol Last Admin: 11/10/18 19:45 Dose: 100 mls/hr Insulin Aspart (Novolog) 0 unit SC Q6H [facility]; Protocol Last Admin: 11/11/18 12:28 Dose: Not Given Insulin Detemir (Levemir) 40 unit SC HS [facility] Last Admin: 11/10/18 22:00 Dose: 40 u Insulin Detemir (Levemir) 30 unit SC DAILY [facility] Last Admin: 11/11/18 09:37 Dose: 30 u Levetiracetam (Keppra) 1,000 mg PO BID [facility] Last Admin: 11/11/18 09:37 Dose: 1,000 mg Levothyroxine Sodium (Synthroid) 50 mcg PO 0600 [facility] Last Admin: 11/11/18 05:45 Dose: 50 mcg Pantoprazole Sodium (Protonix Susp) 40 mg PO 0600 [facility] Last Admin: 11/11/18 05:45 Dose: 40 mg Rosuvastatin Calcium (Crestor) 10 mg PO HS [facility] Last Admin: 11/10/18 22:00 Dose: 10 mg Saccharomyces Boulardii (Florastor) 250 mg PO TID [facility] Last Admin: 11/11/18 09:38 Dose: 250 mg - Labs Labs: 11/11/18 06:25 11/11/18 06:25 PT 14.3 SECONDS (9.7-12.2) H 11/05/18 05:52 INR 1.3 11/05/18 05:52 APTT 43 SECONDS (21-34) H 11/05/18 05:52
[2018-11-11] MEDS: Micafungin 100 MG in Dextrose 5% In Water 100 ML IV SCH (18:01)
--- NOTE | 2018-11-11 18:29 | PN ---
DATE: 11/11/2018 TIME OF EVALUATION: 12:45 p.m. NEUROLOGICAL PROBLEM: Anoxic encephalopathy with nonconvulsive seizures. The patient is seen in the presence of her daughters and granddaughter. The patient's condition has been well discussed and discussed in great detail of her clinical presentation and medical problem. PHYSICAL EXAMINATION: VITAL SIGNS: Blood pressure 124/89, pulse rate 86. GENERAL: The patient is non-communicable. Still moving both upper extremities with spontaneous eye opening. Rest of examination is unchanged. The patient agreed and understand that her clinical irreversible insult to the brain due to her medical problem. The patient's family member will take a decision to the best for her mother. The patient's condition was also discussed with Dr. Orlando. Continue the present management. Blu Yost MD
--- NOTE | 2018-11-11 18:32 | CP.PCM.PN ---
Subjective - Date & Time of Evaluation Date of Evaluation: 11/11/18 Time of Evaluation: 18:30 - Subjective Subjective: Patient overall condition is not improving. Patient still having fever. Not responding. On ventilator. Currently DNR. Family will wait for 2 more weeks to decide about possible terminal extubation. We will continue the current treatment. DVT prophylaxis. Hemodialysis. May need to change the catheter Objective - Vital Signs/Intake and Output Vital Signs (last 24 hours): Temp Pulse Resp BP Pulse Ox 100.2 F H 97 H 22 147/63 100 11/11/18 16:00 11/11/18 18:06 11/11/18 18:06 11/11/18 18:07 11/11/18 18:06 Intake and Output: 11/11/18 11/11/18 06:59 18:59 Intake Total 960 1120 Output Total 500 Balance 460 1120 - Medications Medications: Current Medications Acetaminophen (Tylenol 650mg/20.3ml Solution Ud) 650 mg PO Q6 PRN PRN Reason: pain+fever Last Admin: 11/11/18 08:07 Dose: 650 mg Amlodipine Besylate (Norvasc) 5 mg PO DAILY [facility] Last Admin: 11/11/18 09:38 Dose: 5 mg Aspirin (Aspirin Chewable) 81 mg PO DAILY [facility] Last Admin: 11/11/18 09:38 Dose: 81 mg Epoetin Dedrick (Procrit) 10,000 unit IV TTS [facility] Last Admin: 11/10/18 18:17 Dose: 10,000 unit Heparin Sodium (Porcine) (Heparin (For Dialysis)) 1,000 units IVP ONCE [facility] Metronidazole (Flagyl) 500 mg in 100 mls @ 100 mls/hr IVPB Q8H [facility]; Protocol Last Admin: 11/11/18 12:29 Dose: 100 mls/hr Vancomycin HCl 500 mg/ Sodium (Chloride) 100 mls @ 100 mls/hr IVPB TTS [facility]; Protocol Last Admin: 11/10/18 10:00 Dose: 100 mls/hr Meropenem 500 mg/ Sodium (Chloride) 100 mls @ 100 mls/hr IVPB DAILY [facility]; Protocol Last Admin: 11/11/18 09:39 Dose: 100 mls/hr Micafungin Sodium 100 mg/ (Dextrose) 100 mls @ 100 mls/hr IV Q24H [facility]; Protocol Last Admin: 11/11/18 18:01 Dose: 100 mls/hr Insulin Aspart (Novolog) 0 unit SC Q6H [facility]; Protocol Last Admin: 11/11/18 17:38 Dose: Not Given Insulin Detemir (Levemir) 40 unit SC HS [facility] Last Admin: 11/10/18 22:00 Dose: 40 u Insulin Detemir (Levemir) 30 unit SC DAILY [facility] Last Admin: 11/11/18 09:37 Dose: 30 u Levetiracetam (Keppra) 1,000 mg PO BID [facility] Last Admin: 11/11/18 17:38 Dose: 1,000 mg Levothyroxine Sodium (Synthroid) 50 mcg PO 0600 [facility] Last Admin: 11/11/18 05:45 Dose: 50 mcg Pantoprazole Sodium (Protonix Susp) 40 mg PO 0600 [facility] Last Admin: 11/11/18 05:45 Dose: 40 mg Rosuvastatin Calcium (Crestor) 10 mg PO HS [facility] Last Admin: 11/10/18 22:00 Dose: 10 mg Saccharomyces Boulardii (Florastor) 250 mg PO TID [facility] Last Admin: 11/11/18 17:38 Dose: 250 mg - Labs Labs: 11/11/18 06:25 11/11/18 06:25 PT 14.3 SECONDS (9.7-12.2) H 11/05/18 05:52 INR 1.3 11/05/18 05:52 APTT 43 SECONDS (21-34) H 11/05/18 05:52 Assessment and Plan (1) Acute on chronic renal failure Status: Acute (2) Diabetic nephropathy associated with type 2 diabetes mellitus Status: Acute (3) Uremia, acute Status: Acute
--- NOTE | 2018-11-11 19:13 | CP.PCM.PN ---
Subjective - Date & Time of Evaluation Date of Evaluation: 11/11/18 Time of Evaluation: 08:30 - Subjective Subjective: Patient seen and examined. On Ventilator Patient not improving PE Head: Positive for: Atraumatic, Normocephalic Extroacular Muscles: Positive for: EOMI (dropping eyelid left) Conjunctiva: Positive for: Normal Mouth: Positive for: Dry Neck: Positive for: Other (tracheostomy in place with vent, trialysis cath on left side neck area) Respiratory/Chest: Positive for: Decreased Breath Sounds, Other (intubated ). Negative for: Respiratory Distress, Accessory Muscle Use, Tachypneic Cardiovascular: Positive for: Regular Rate and Rhythm, Normal S1, S2 Abdomen: Positive for: Normal Bowel Sounds, Other (PEG tube in place ). Negative for: Tenderness, Distention, Rebound, Guarding Upper Extremity: Positive for: Normal Inspection. Negative for: Cyanosis, Edema Lower Extremity: Positive for: Normal Inspection. Negative for: Edema Neurological: Negative for: GCS=15, CN II-XII Intact, Speech Normal Skin: Positive for: Warm, Dry, Normal Color Psychiatric: Negative for: Alert, Oriented x 3, Normal Insight, Normal Concentration Assessment and Plan - Assessment and Plan (Free Text) Assessment: Patient is a 72 year old female with PMHx of CKD, CHF, CAD s/p stents, pituitary adenoma a/p resection, DM, who was admitted for respiratory and cardiac arrest s/p permacath placement and AVF on 10/05; possible AMS due to anoxic brain injury, now on HD MWF, tracheostomy on 10/18/17, PEG tube placement 10/23/18. Patient became hypotensive overnight and upgraded to ICU. Permacath removed by surgery on 10/30. A trialysis catheter inserted but dialysis reported the line was not function. A IJ central line inserted for dialysis access. Pt had a LP yesterday (11/05) to r/o meningitis. Pt continues to have diarrhea, feeds changed to Glucerna. The left IJ catheter inserted 11/01 for dialysis was repositioned yesterday due to poor blood return. Patient had Ceretec scan to r/o sites of infection. Neuro - Intubated, agitated - no sedation - continue Keppra and valproate as per neuro - Lumbar puncture 11/05: WBC 1.0, Glucose 129, RBC 0, Total protein 56 - f/u CSF antibodies - f/u Neuro recs Cardiac - Hypertension, improving - continue Norvasc 5mg daily - Echo 11/01: Left Ventricle systolic function is normal; EF is 55-60%; hypertensive heart disease; diastolic dysfunction; no AR, MR, pulmonary hypertension; trace to mild tricuspid regurgitation. - continue to monitor vitals - continue Crestor 10mg, ASA 81mg Pulm Intubated, current vent settings PRVC 14/450/5/35 - Pressure support trials - CXR 11/08: No acute infiltrate pleural effusion identified GI - PEG tube in place - Tube feeds changed to Glucerna - rectal tube in place - protonix ppx - CT abdomen/pelvis 10/30: fluid and gas filled distended rectum versus perirectal abscess. Evidence of anastomotic bowel suture material and/or rectal tube/packing material. - per surgery, no intervention at this time Renal - HD schedule: TTHS - continue Procrit Endo - Hx of Hypothyroidism, continue levothyroxine 50mg - Hx of DM, continue Levemir 40 units HS and Levemir 30 units daily - continue ISS high - Discontinue Solu-Medrol 20mg Q12 Heme - H/H 8.9/26.0 - monitor CBC ID - currently afebrile, Tmax 100.4F - WBC 11.9 today, continue to monitor - continue Abx: Meropenem, Flagyl, Vanco - 10/30 Tracheostomy site, sputum cx positive: Romina Albicans - continue Micafungin 100mg - Decubitus Ulcer, unstageable; wound care following - ESR (+) 99 - CRP (+) 155.70 - f/u Ceretec scan - f/u ID recs - JERRY neg PPx - Protonix for GI ppx - DVT ppx: SCDs, Heparin SC - Tylenol PRN for fever - Hypoglycemic protocol PRN - Patient is DNR Objective - Vital Signs/Intake and Output Vital Signs (last 24 hours): Temp Pulse Resp BP Pulse Ox 100.2 F H 97 H 22 147/63 100 11/11/18 16:00 11/11/18 18:06 11/11/18 18:06 11/11/18 18:07 11/11/18 18:06 Intake and Output: 11/11/18 11/12/18 18:59 06:59 Intake Total 1120 60 Balance 1120 60 - Medications Medications: Current Medications Acetaminophen (Tylenol 650mg/20.3ml Solution Ud) 650 mg PO Q6 PRN PRN Reason: pain+fever Last Admin: 11/11/18 08:07 Dose: 650 mg Amlodipine Besylate (Norvasc) 5 mg PO DAILY [facility] Last Admin: 11/11/18 09:38 Dose: 5 mg Aspirin (Aspirin Chewable) 81 mg PO DAILY [facility] Last Admin: 11/11/18 09:38 Dose: 81 mg Epoetin Dedrick (Procrit) 10,000 unit IV TTS [facility] Last Admin: 11/10/18 18:17 Dose: 10,000 unit Heparin Sodium (Porcine) (Heparin (For Dialysis)) 1,000 units IVP ONCE [facility] Metronidazole (Flagyl) 500 mg in 100 mls @ 100 mls/hr IVPB Q8H [facility]; Protocol Last Admin: 11/11/18 12:29 Dose: 100 mls/hr Vancomycin HCl 500 mg/ Sodium (Chloride) 100 mls @ 100 mls/hr IVPB TTS [facility]; Protocol Last Admin: 11/10/18 10:00 Dose: 100 mls/hr Meropenem 500 mg/ Sodium (Chloride) 100 mls @ 100 mls/hr IVPB DAILY [facility]; Protocol Last Admin: 11/11/18 09:39 Dose: 100 mls/hr Micafungin Sodium 100 mg/ (Dextrose) 100 mls @ 100 mls/hr IV Q24H [facility]; Protocol Last Admin: 11/11/18 18:01 Dose: 100 mls/hr Insulin Aspart (Novolog) 0 unit SC Q6H [facility]; Protocol Last Admin: 11/11/18 17:38 Dose: Not Given Insulin Detemir (Levemir) 40 unit SC HS [facility] Last Admin: 11/10/18 22:00 Dose: 40 u Insulin Detemir (Levemir) 30 unit SC DAILY [facility] Last Admin: 11/11/18 09:37 Dose: 30 u Levetiracetam (Keppra) 1,000 mg PO BID [facility] Last Admin: 11/11/18 17:38 Dose: 1,000 mg Levothyroxine Sodium (Synthroid) 50 mcg PO 0600 [facility] Last Admin: 11/11/18 05:45 Dose: 50 mcg Pantoprazole Sodium (Protonix Susp) 40 mg PO 0600 [facility] Last Admin: 11/11/18 05:45 Dose: 40 mg Rosuvastatin Calcium (Crestor) 10 mg PO HS [facility] Last Admin: 11/10/18 22:00 Dose: 10 mg Saccharomyces Boulardii (Florastor) 250 mg PO TID [facility] Last Admin: 11/11/18 17:38 Dose: 250 mg - Labs Labs: 11/11/18 06:25 11/11/18 06:25 PT 14.3 SECONDS (9.7-12.2) H 11/05/18 05:52 INR 1.3 11/05/18 05:52 APTT 43 SECONDS (21-34) H 11/05/18 05:52
[2018-11-12] MEDS: Levothyroxine 50 MCG TAB PO SCH (06:02)
[2018-11-12] MEDS: Pantoprazole 40 mg Susp UD PO SCH (06:02)
[2018-11-12 06:18] LABS: BASO # 0.1 K/uL (0.0-0.2); BASO % 0.4 % (0.0-2.0); EOS # 0.8 K/uL (0.0-0.7); EOS % 4.5 % (0.0-4.0); HEMOGLOBIN 9.2 g/dL (11.0-16.0); LYMPH # 1.9 K/uL (1.0-4.3); LYMPH % 10.9 % (20.0-40.0); MEAN CELL VOLUME 93.5 fL (81.0-99.0); MEAN CORPUSCULAR HEMOGLOBIN 28.4 pg (27.0-31.0); MEAN CORPUSCULAR HGB CONC 30.4 g/dL (33.0-37.0); MEAN PLATELET VOLUME 11.2 fL (7.2-11.7); MONO # 1.4 K/uL (0.0-0.8); MONO % 8.1 % (0.0-10.0); NEUT # 13.2 K/uL (1.8-7.0); NEUT % 76.1 % (50.0-75.0); RBC 3.23 Mil/uL (3.80-5.20); RED CELL DISTRIBUTION WIDTH 21.8 % (11.5-14.5); WHITE BLOOD COUNT 17.3 K/uL (4.8-10.8)
[2018-11-12] MEDS: (Novolog) Insulin Aspart, Recombinant 100 u/ml 10 ml vial SC SCH ×4 (06:26→18:33)
[2018-11-12 06:37] LABS: CALCIUM 7.6 mg/dl (8.6-10.4)
--- NOTE | 2018-11-12 08:44 | CP.CCUPN ---
CCU Subjective - Physician Review Subjective (Free Text): 11/12/18 15:23 Patient seen and examined at bedside today. Patient remains intubated. Patient is not on sedation and patient seems agitated. Patient continues to flail arms around without purpose. ROS is unobtainable due to patients mental status. Per nursing staff, patient continues to have diarrhea. CCU Objective - Vital Signs / Intake & Output Vital Signs (Last 4 hours): Vital Signs Temp Pulse Resp BP Pulse Ox 11/12/18 08:06 68 16 123/58 L 100 11/12/18 08:00 97.1 F L 68 19 100 11/12/18 07:06 68 12 121/60 100 11/12/18 07:00 67 14 100 11/12/18 06:06 72 13 122/58 L 100 11/12/18 05:36 77 13 143/62 100 Intake and Output (Last 8hrs): Intake & Output 11/11/18 11/12/18 11/12/18 22:59 06:59 14:59 Intake Total 780 160 50 Balance 780 160 50 Weight 208 lb 12.48 oz Intake: Intake, IV Amount 200 100 Left Internal Jugular 100 Right Hand 200 Tube Feeding 480 60 50 Other 100 Other: # Bowel Movements 1 0 - Physical Exam Head: Positive for: Atraumatic, Normocephalic Extroacular Muscles: Positive for: EOMI (dropping eyelid left) Conjunctiva: Positive for: Normal Mouth: Positive for: Dry Neck: Positive for: Other (tracheostomy in place with vent, trialysis cath on left side neck area ) Respiratory/Chest: Positive for: Decreased Breath Sounds, Other (intubated ). Negative for: Respiratory Distress, Accessory Muscle Use, Tachypneic Cardiovascular: Positive for: Regular Rate and Rhythm, Normal S1, S2 Abdomen: Positive for: Normal Bowel Sounds, Other (PEG tube in place ). Negative for: Tenderness, Distention, Rebound, Guarding Upper Extremity: Positive for: Normal Inspection. Negative for: Cyanosis, Edema Lower Extremity: Positive for: Normal Inspection. Negative for: Edema Neurological: Negative for: GCS=15, CN II-XII Intact, Speech Normal Skin: Positive for: Warm, Dry, Normal Color Psychiatric: Negative for: Alert, Oriented x 3, Normal Insight, Normal Concentration - Medications Active Medications: Active Medications Generic Name Dose Route Start Last Admin Trade Name Freq PRN Reason Stop Dose Admin Acetaminophen 650 mg 10/25/18 03:30 11/11/18 08:07 Tylenol 650mg/20.3ml Solution Ud PO 650 mg Q6 PRN Administration pain+fever Amlodipine Besylate 5 mg 11/07/18 11:00 11/11/18 09:38 Norvasc PO 5 mg DAILY [facility] Administration Aspirin 81 mg 10/08/18 10:00 11/11/18 09:38 Aspirin Chewable PO 81 mg DAILY [facility] Administration Epoetin Dedrick 10,000 unit 11/01/18 14:00 11/10/18 18:17 Procrit IV 10,000 unit TTS [facility] Administration Heparin Sodium (Porcine) 1,000 units 11/08/18 07:45 Heparin (For Dialysis) IVP ONCE [facility] Vancomycin HCl 500 mg/ Sodium 100 mls @ 100 mls/hr 11/08/18 10:00 11/10/18 10:00 Chloride IVPB 100 mls/hr TTS [facility] Administration Protocol Meropenem 500 mg/ Sodium 100 mls @ 100 mls/hr 11/10/18 10:00 11/11/18 09:39 Chloride IVPB 100 mls/hr DAILY [facility] Administration Protocol Micafungin Sodium 100 mg/ 100 mls @ 100 mls/hr 11/10/18 19:00 11/11/18 18:01 Dextrose IV 100 mls/hr Q24H [facility] Administration Protocol Metronidazole 500 mg in 100 mls @ 100 mls/hr 11/12/18 08:30 Flagyl IVPB Q8H [facility] Protocol Insulin Aspart 0 unit 10/31/18 12:00 11/12/18 06:26 Novolog SC Not Given Q6H [facility] Protocol Insulin Detemir 40 unit 10/28/18 22:00 11/11/18 21:00 Levemir SC 40 u HS [facility] Administration Insulin Detemir 30 unit 11/02/18 10:00 11/11/18 09:37 Levemir SC 30 u DAILY [facility] Administration Levetiracetam 1,000 mg 10/28/18 18:00 11/11/18 17:38 Keppra PO 1,000 mg BID [facility] Administration Levothyroxine Sodium 50 mcg 09/29/18 08:00 11/12/18 06:02 Synthroid PO 50 mcg 0600 [facility] Administration Nystatin 1 applic 11/12/18 10:00 Nystop Topical Powder TOP BID [facility] Pantoprazole Sodium 40 mg 10/09/18 06:00 11/12/18 06:02 Protonix Susp PO 40 mg 0600 [facility] Administration Rosuvastatin Calcium 10 mg 09/30/18 22:00 11/11/18 21:00 Crestor PO 10 mg HS [facility] Administration Saccharomyces Boulardii 250 mg 11/01/18 10:00 11/11/18 17:38 Florastor PO 250 mg TID [facility] Administration - Patient Studies Lab Studies: Lab Studies 11/12/18 11/12/18 11/12/18 Range/Units 06:23 06:20 06:11 WBC 17.3 H (4.8-10.8) K/uL RBC 3.23 L (3.80-5.20) Mil/uL Hgb 9.2 L (11.0-16.0) g/dL Hct 30.2 L (34.0-47.0) % MCV 93.5 (81.0-99.0) fL MCH 28.4 (27.0-31.0) pg MCHC 30.4 L (33.0-37.0) g/dL RDW 21.8 H (11.5-14.5) % Plt Count 177 (130-400) K/uL MPV 11.2 (7.2-11.7) fL Neut % (Auto) 76.1 H (50.0-75.0) % Lymph % (Auto) 10.9 L (20.0-40.0) % Ross % (Auto) 8.1 (0.0-10.0) % Eos % (Auto) 4.5 H (0.0-4.0) % Baso % (Auto) 0.4 (0.0-2.0) % Neut # (Auto) 13.2 H (1.8-7.0) K/uL Lymph # (Auto) 1.9 (1.0-4.3) K/uL Ross # (Auto) 1.4 H (0.0-0.8) K/uL Eos # (Auto) 0.8 H (0.0-0.7) K/uL Baso # (Auto) 0.1 (0.0-0.2) K/uL Sodium (132-148) mmol/L Potassium (3.6-5.2) mmol/L Chloride (98-107) mmol/L Carbon Dioxide (22-30) mmol/L Anion Gap (10-20) BUN (7-17) mg/dL Creatinine (0.7-1.2) mg/dL Est GFR ( Amer) Est GFR (Non-Af Amer) POC Glucose (mg/dL) 70 59 L (65-110) mg/dL Random Glucose (65-105) mg/dL Calcium (8.6-10.4) mg/dl Phosphorus (2.5-4.5) mg/dL Magnesium (1.6-2.3) mg/dL Total Bilirubin (0.2-1.3) mg/dL AST (14-36) U/L ALT (9-52) U/L Alkaline Phosphatase (38-126) U/L Total Protein (6.3-8.3) g/dL Albumin (3.5-5.0) g/dL Globulin (2.2-3.9) gm/dL Albumin/Globulin Ratio (1.0-2.1) 11/12/18 11/11/18 11/11/18 Range/Units 06:09 23:46 17:37 WBC (4.8-10.8) K/uL RBC (3.80-5.20) Mil/uL Hgb (11.0-16.0) g/dL Hct (34.0-47.0) % MCV (81.0-99.0) fL MCH (27.0-31.0) pg MCHC (33.0-37.0) g/dL RDW (11.5-14.5) % Plt Count (130-400) K/uL MPV (7.2-11.7) fL Neut % (Auto) (50.0-75.0) % Lymph % (Auto) (20.0-40.0) % Ross % (Auto) (0.0-10.0) % Eos % (Auto) (0.0-4.0) % Baso % (Auto) (0.0-2.0) % Neut # (Auto) (1.8-7.0) K/uL Lymph # (Auto) (1.0-4.3) K/uL Ross # (Auto) (0.0-0.8) K/uL Eos # (Auto) (0.0-0.7) K/uL Baso # (Auto) (0.0-0.2) K/uL Sodium 138 (132-148) mmol/L Potassium 5.4 H (3.6-5.2) mmol/L Chloride 104 (98-107) mmol/L Carbon Dioxide 21 L (22-30) mmol/L Anion Gap 18 (10-20) BUN 87 H (7-17) mg/dL Creatinine 4.6 H (0.7-1.2) mg/dL Est GFR ( Amer) 11 Est GFR (Non-Af Amer) 9 POC Glucose (mg/dL) 125 H 87 (65-110) mg/dL Random Glucose 49 L D (65-105) mg/dL Calcium 7.6 L (8.6-10.4) mg/dl Phosphorus 7.8 H (2.5-4.5) mg/dL Magnesium 2.2 (1.6-2.3) mg/dL Total Bilirubin 0.6 (0.2-1.3) mg/dL AST 49 H D (14-36) U/L ALT 22 (9-52) U/L Alkaline Phosphatase 146 H (38-126) U/L Total Protein 6.0 L (6.3-8.3) g/dL Albumin 3.0 L (3.5-5.0) g/dL Globulin 3.0 (2.2-3.9) gm/dL Albumin/Globulin Ratio 1.0 (1.0-2.1) 11/11/18 Range/Units 12:01 WBC (4.8-10.8) K/uL RBC (3.80-5.20) Mil/uL Hgb (11.0-16.0) g/dL Hct (34.0-47.0) % MCV (81.0-99.0) fL MCH (27.0-31.0) pg MCHC (33.0-37.0) g/dL RDW (11.5-14.5) % Plt Count (130-400) K/uL MPV (7.2-11.7) fL Neut % (Auto) (50.0-75.0) % Lymph % (Auto) (20.0-40.0) % Ross % (Auto) (0.0-10.0) % Eos % (Auto) (0.0-4.0) % Baso % (Auto) (0.0-2.0) % Neut # (Auto) (1.8-7.0) K/uL Lymph # (Auto) (1.0-4.3) K/uL Ross # (Auto) (0.0-0.8) K/uL Eos # (Auto) (0.0-0.7) K/uL Baso # (Auto) (0.0-0.2) K/uL Sodium (132-148) mmol/L Potassium (3.6-5.2) mmol/L Chloride (98-107) mmol/L Carbon Dioxide (22-30) mmol/L Anion Gap (10-20) BUN (7-17) mg/dL Creatinine (0.7-1.2) mg/dL Est GFR ( Amer) Est GFR (Non-Af Amer) POC Glucose (mg/dL) 137 H (65-110) mg/dL Random Glucose (65-105) mg/dL Calcium (8.6-10.4) mg/dl Phosphorus (2.5-4.5) mg/dL Magnesium (1.6-2.3) mg/dL Total Bilirubin (0.2-1.3) mg/dL AST (14-36) U/L ALT (9-52) U/L Alkaline Phosphatase (38-126) U/L Total Protein (6.3-8.3) g/dL Albumin (3.5-5.0) g/dL Globulin (2.2-3.9) gm/dL Albumin/Globulin Ratio (1.0-2.1) Laboratory Results - last 24 hr 11/11/18 11/11/18 11/11/18 12:01 17:37 23:46 WBC RBC Hgb Hct MCV MCH MCHC RDW Plt Count MPV Neut % (Auto) Lymph % (Auto) Ross % (Auto) Eos % (Auto) Baso % (Auto) Neut # (Auto) Lymph # (Auto) Ross # (Auto) Eos # (Auto) Baso # (Auto) Sodium Potassium Chloride Carbon Dioxide Anion Gap BUN Creatinine Est GFR ( Amer) Est GFR (Non-Af Amer) POC Glucose (mg/dL) 137 H 87 125 H Random Glucose Calcium Phosphorus Magnesium Total Bilirubin AST ALT Alkaline Phosphatase Total Protein Albumin Globulin Albumin/Globulin Ratio 11/12/18 11/12/18 11/12/18 06:09 06:11 06:20 WBC 17.3 H RBC 3.23 L Hgb 9.2 L Hct 30.2 L MCV 93.5 MCH 28.4 MCHC 30.4 L RDW 21.8 H Plt Count 177 MPV 11.2 Neut % (Auto) 76.1 H Lymph % (Auto) 10.9 L Ross % (Auto) 8.1 Eos % (Auto) 4.5 H Baso % (Auto) 0.4 Neut # (Auto) 13.2 H Lymph # (Auto) 1.9 Ross # (Auto) 1.4 H Eos # (Auto) 0.8 H Baso # (Auto) 0.1 Sodium 138 Potassium 5.4 H Chloride 104 Carbon Dioxide 21 L Anion Gap 18 BUN 87 H Creatinine 4.6 H Est GFR ( Amer) 11 Est GFR (Non-Af Amer) 9 POC Glucose (mg/dL) 59 L Random Glucose 49 L D Calcium 7.6 L Phosphorus 7.8 H Magnesium 2.2 Total Bilirubin 0.6 AST 49 H D ALT 22 Alkaline Phosphatase 146 H Total Protein 6.0 L Albumin 3.0 L Globulin 3.0 Albumin/Globulin Ratio 1.0 11/12/18 06:23 WBC RBC Hgb Hct MCV MCH MCHC RDW Plt Count MPV Neut % (Auto) Lymph % (Auto) Ross % (Auto) Eos % (Auto) Baso % (Auto) Neut # (Auto) Lymph # (Auto) Ross # (Auto) Eos # (Auto) Baso # (Auto) Sodium Potassium Chloride Carbon Dioxide Anion Gap BUN Creatinine Est GFR ( Amer) Est GFR (Non-Af Amer) POC Glucose (mg/dL) 70 Random Glucose Calcium Phosphorus Magnesium Total Bilirubin AST ALT Alkaline Phosphatase Total Protein Albumin Globulin Albumin/Globulin Ratio Fingerstick Blood Sugar Results: 70 Review of Systems - Review of Systems Systems not reviewed;Unavailable: Intubated Critical Care Progress Note - Ventilator Checklist Head of Bed 30 Degrees: Yes Daily Sedation Vacation: Yes Daily Assessment of Readiness to Wean: Yes - Vent Settings MODE:: PRVC TIDAL VOLUME:: 450 RESP RATE:: 14 FIO2:: 35 PEEP:: 5 - Extremities/Vascular Does the Patient have a Central Venous Catheter?: Yes Insertion Site: Internal Jugular Vein Does the Patient need a Central Venous Catheter?: Yes Does the Patient have a Rodriguez Catheter?: Yes Does the Patient need a Rodriguez Catheter?: Yes Catheter Insertion Criteria: Need for accurate measurement of output in critical ly ill patient - Prophylaxis GI Prophylaxis GI: PPI - Prophylaxis DVT Prophylaxis DVT: SCDs Assessment/Plan - Assessment and Plan (Free Text) Assessment: Patient is a 72 year old female with PMHx of CKD, CHF, CAD s/p stents, pituitary adenoma a/p resection, DM, who was admitted for respiratory and cardiac arrest s/p permacath placement and AVF on 10/05; possible AMS due to anoxic brain injury, now on HD MWF, tracheostomy on 10/18/17, PEG tube placement 10/23/18. Patient became hypotensive overnight and upgraded to ICU. Permacath removed by surgery on 10/30. A trialysis catheter inserted but dialysis reported the line was not function. A IJ central line inserted for dialysis access. Pt had a LP (11/05) to r/o meningitis. Pt continues to have diarrhea, feeds changed to Glucerna. The left IJ catheter inserted 11/01 for dialysis was repositioned yesterday due to poor blood return. Patients family made decision to make patient DNR (11/08) after long discussion regarding goals of care. Patient remains intubated and patients family still remains without decision regarding terminal extubation. Patient continues to have diarrhea; rectal tube remains in place. Plan: Neuro - Intubated, agitated - no sedation - continue Keppra and valproate as per neuro - Lumbar puncture 11/05: WBC 1.0, Glucose 129, RBC 0, Total protein 56 - f/u CSF antibodies - f/u Neuro recs Cardiac - Hypertension, improved - continue Norvasc 5mg daily - Echo 11/01: Left Ventricle systolic function is normal; EF is 55-60%; hypertensive heart disease; diastolic dysfunction; no AR, MR, pulmonary hypertension; trace to mild tricuspid regurgitation. - continue to monitor vitals - continue Crestor 10mg, ASA 81mg Pulm - Intubated, current vent settings PRVC 14/450/5/35 - Pressure support trials - CXR 11/08: No acute infiltrate pleural effusion identified GI - PEG tube in place - Tube feeds changed to Glucerna at rate of 20ml/hr - rectal tube in place - protonix ppx - CT abdomen/pelvis 10/30: fluid and gas filled distended rectum versus perirectal abscess. Evidence of anastomotic bowel suture material and/or rectal tube/packing material. - per surgery, no intervention at this time Renal - HD schedule: TTHS - continue Procrit Endo - Hx of Hypothyroidism, continue levothyroxine 50mg - Hx of DM, however, becoming hypogylecemic, D/C insulin for now - continue ISS high - Discontinue Solu-Medrol 20mg Q12 Heme - H/H 9.2/30.2 - monitor CBC ID - currently afebrile, Tmax 100.4F - WBC 17.3 today, continue to monitor- repeat stool cx, blood cx, urine cx, stool leukocytes - continue Abx: Meropenem, Flagyl, Vanco - 10/30 Tracheostomy site, sputum cx positive: Romina Albicans - continue Micafungin 100mg - Decubitus Ulcer, unstageable; wound care following - Nystatin powder for fungal rash on chest - ESR (+) 99 (2/5) - CRP (+) 155.70 (2/5) - Ceretec scan 11/08: positive ceretec labeled WBC study corresponding findings on recent CT scan with respect to anus and perineum - f/u ID recs Rheum - JERRY negative (11/06) PPx - Protonix for GI ppx - DVT ppx: SCDs, Heparin SC - Tylenol PRN for fever - Hypoglycemic protocol PRN
[2018-11-12] MEDS: metroNIDAZOLE IV 500 mg/100 ml 500 MG/100 ML BAG IVPB SCH ×2 (08:53→15:48)
[2018-11-12] MEDS: Saccharomyces Boulardi 250 mg Cap PO SCH ×3 (09:09→17:07)
[2018-11-12] MEDS: levETIRAcetam 100 mg/ml (5ml) Oral Syringe PO SCH ×2 (09:11→17:07)
--- NOTE | 2018-11-12 10:22 | PN ---
DATE: 11/12/2018 TIME OF EVALUATION: 07:10 a.m. NEUROLOGICAL PROBLEM: Anoxic encephalopathy with status post seizures. PHYSICAL EXAMINATION: GENERAL: The patient is obtunded, responds to pain by grimacing. VITAL SIGNS: Blood pressure 122/58, mean arterial pressure 75, respiratory rate 18, on tracheostomy. Afebrile with pulse rate of 72. Rest of the examination is unchanged compared with my previous examination. The patient's condition has been extensively discussed with family members. Continue with present management. The patient's family members will make the decision soon. Blu Yost MD
[2018-11-12] MEDS: Meropenem 500 MG in Sodium Chloride 0.9% 100 ML IVPB SCH (10:28)
--- NOTE | 2018-11-12 10:54 | NM ---
Date of service: 11/08/2018 PROCEDURE: Ceretec labeled white blood cell study HISTORY: r/o infection COMPARISON: 11/05/2018 CT abdomen and pelvis TECHNIQUE: 27 mCi Ceretec labeled white blood cells administered intravenously. Imaging obtained at 2 and 24 hr per institutional protocol. FINDINGS: Thorax: Unremarkable. Abdomen retroperitoneum and pelvis: Expected uptake in the liver, spleen and alimentary tract. Soft tissue/perineum: Increased uptake, retention of Ceretec on the 20/4 hour, delayed images consistent with findings on recent CT scan. IMPRESSION: Positive Ceretec labeled white blood cell study corresponding findings on recent CT scan with respect to anus and perineum.
--- NOTE | 2018-11-12 12:16 | CP.PCM.PN ---
Subjective - Date & Time of Evaluation Date of Evaluation: 11/12/18 Time of Evaluation: 12:13 - Subjective Subjective: poor dialysis due to cath malfunction TPA given, flows still sluggish patient with same lethargy, confusion now more edematous discussed with family, patient DNR but still wants dialysis Objective - Vital Signs/Intake and Output Vital Signs (last 24 hours): Temp Pulse Resp BP Pulse Ox 97.1 F L 73 11 L 123/58 L 100 11/12/18 08:00 11/12/18 12:00 11/12/18 12:00 11/12/18 11:06 11/12/18 12:00 Intake and Output: 11/12/18 11/12/18 06:59 18:59 Intake Total 500 450 Balance 500 450 - Medications Medications: Current Medications Acetaminophen (Tylenol 650mg/20.3ml Solution Ud) 650 mg PO Q6 PRN PRN Reason: pain+fever Last Admin: 11/11/18 08:07 Dose: 650 mg Amlodipine Besylate (Norvasc) 5 mg PO DAILY [facility] Last Admin: 11/12/18 09:09 Dose: 5 mg Aspirin (Aspirin Chewable) 81 mg PO DAILY [facility] Last Admin: 11/12/18 09:08 Dose: 81 mg Epoetin Dedrick (Procrit) 10,000 unit IV TTS [facility] Last Admin: 11/10/18 18:17 Dose: 10,000 unit Heparin Sodium (Porcine) (Heparin (For Dialysis)) 1,000 units IVP ONCE [facility] Vancomycin HCl 500 mg/ Sodium (Chloride) 100 mls @ 100 mls/hr IVPB TTS [facility]; Protocol Last Admin: 11/10/18 10:00 Dose: 100 mls/hr Meropenem 500 mg/ Sodium (Chloride) 100 mls @ 100 mls/hr IVPB DAILY [facility]; Protocol Last Admin: 11/12/18 10:28 Dose: 100 mls/hr Micafungin Sodium 100 mg/ (Dextrose) 100 mls @ 100 mls/hr IV Q24H [facility]; Protocol Last Admin: 11/11/18 18:01 Dose: 100 mls/hr Metronidazole (Flagyl) 500 mg in 100 mls @ 100 mls/hr IVPB Q8H [facility]; Protocol Last Admin: 11/12/18 08:53 Dose: 100 mls/hr Insulin Aspart (Novolog) 0 unit SC Q6H [facility]; Protocol Last Admin: 11/12/18 06:26 Dose: Not Given Levetiracetam (Keppra) 1,000 mg PO BID [facility] Last Admin: 11/12/18 09:11 Dose: 1,000 mg Levothyroxine Sodium (Synthroid) 50 mcg PO 0600 [facility] Last Admin: 11/12/18 06:02 Dose: 50 mcg Nystatin (Nystop Topical Powder) 1 applic TOP BID [facility] Last Admin: 11/12/18 08:59 Dose: 1 applic Pantoprazole Sodium (Protonix Susp) 40 mg PO 0600 [facility] Last Admin: 11/12/18 06:02 Dose: 40 mg Rosuvastatin Calcium (Crestor) 10 mg PO HS [facility] Last Admin: 11/11/18 21:00 Dose: 10 mg Saccharomyces Boulardii (Florastor) 250 mg PO TID [facility] Last Admin: 11/12/18 09:09 Dose: 250 mg - Labs Labs: 11/12/18 06:11 11/12/18 06:09 PT 14.3 SECONDS (9.7-12.2) H 11/05/18 05:52 INR 1.3 11/05/18 05:52 APTT 43 SECONDS (21-34) H 11/05/18 05:52 - Constitutional Appears: In Acute Distress, Confused, Chronically Ill - Head Exam Head Exam: ATRAUMATIC, NORMAL INSPECTION - Neck Exam Neck Exam: Normal Inspection. absent: Tenderness - Respiratory Exam Respiratory Exam: Rhonchi, Respiratory Distress - Cardiovascular Exam Cardiovascular Exam: REGULAR RHYTHM, +S1 - GI/Abdominal Exam GI & Abdominal Exam: Soft. absent: Tenderness - Extremities Exam Extremities Exam: Normal Inspection. absent: Tenderness - Neurological Exam Neurological Exam: Altered - Skin Skin Exam: Dry, Warm Assessment and Plan (1) ESRD (end stage renal disease) Status: Acute (2) Diabetic nephropathy associated with type 2 diabetes mellitus Status: Acute (3) CAD (coronary artery disease) Status: Acute (4) HTN (hypertension) Status: Acute (5) Metabolic encephalopathy Status: Acute - Assessment and Plan (Free Text) Plan: dialysis in AM asked surgery to replace catheter try adequate UF due to increased swelling
[2018-11-12] MEDS ORDERED: Glucagon Recombinant 1 mg Inj IM PRN (12:28)
[2018-11-12] MEDS ORDERED: Dextrose 50% SYRINGE Inj (50 ml) IV PRN (12:28)
[2018-11-12] MEDS ORDERED: Dextrose 50% SYRINGE Inj (50 ml) IV STA (12:29)
[2018-11-12] MEDS: Acetaminophen 650mg/20.3ml solution UD PO PRN (17:07)
[2018-11-12] MEDS: Micafungin 100 MG in Dextrose 5% In Water 100 ML IV SCH (17:59)
--- NOTE | 2018-11-12 21:19 | CP.PCM.PN ---
Subjective - Date & Time of Evaluation Date of Evaluation: 11/12/18 Time of Evaluation: 17:00 - Subjective Subjective: Dictated Objective - Vital Signs/Intake and Output Vital Signs (last 24 hours): Temp Pulse Resp BP Pulse Ox 98.9 F 79 20 103/57 L 100 11/12/18 18:07 11/12/18 20:06 11/12/18 20:06 11/12/18 20:06 11/12/18 20:06 Intake and Output: 11/12/18 11/13/18 18:59 06:59 Intake Total 1010 60 Output Total 100 Balance 910 60 - Medications Medications: Current Medications Acetaminophen (Tylenol 650mg/20.3ml Solution Ud) 650 mg PO Q6 PRN PRN Reason: pain+fever Last Admin: 11/12/18 17:07 Dose: 650 mg Amlodipine Besylate (Norvasc) 5 mg PO DAILY [facility] Last Admin: 11/12/18 09:09 Dose: 5 mg Aspirin (Aspirin Chewable) 81 mg PO DAILY [facility] Last Admin: 11/12/18 09:08 Dose: 81 mg Dextrose (Dextrose 50% Inj) 0 ml IV STAT PRN; Protocol PRN Reason: Hypoglycemia Protocol Dextrose (Glutose 15) 0 gm PO ONCE PRN; Protocol PRN Reason: Hypoglycemia Protocol Epoetin Dedrick (Procrit) 10,000 unit IV TTS [facility] Last Admin: 11/10/18 18:17 Dose: 10,000 unit Glucagon (Glucagen Diagnostic Kit) 0 mg IM STAT PRN; Protocol PRN Reason: Hypoglycemia Protocol Heparin Sodium (Porcine) (Heparin (For Dialysis)) 1,000 units IVP ONCE [facility] Vancomycin HCl 500 mg/ Sodium (Chloride) 100 mls @ 100 mls/hr IVPB TTS [facility]; Protocol Last Admin: 11/10/18 10:00 Dose: 100 mls/hr Meropenem 500 mg/ Sodium (Chloride) 100 mls @ 100 mls/hr IVPB DAILY [facility]; Protocol Last Admin: 11/12/18 10:28 Dose: 100 mls/hr Micafungin Sodium 100 mg/ (Dextrose) 100 mls @ 100 mls/hr IV Q24H [facility]; Protocol Last Admin: 11/12/18 17:59 Dose: 100 mls/hr Metronidazole (Flagyl) 500 mg in 100 mls @ 100 mls/hr IVPB Q8H [facility]; Protocol Last Admin: 11/12/18 15:48 Dose: 100 mls/hr Dextrose (Dextrose 5% In Water 1000 Ml) 1,000 mls @ 0 mls/hr IV .Q0M PRN; Protocol PRN Reason: Hypoglycemia Protocol Insulin Aspart (Novolog) 0 unit SC Q6H [facility]; Protocol Last Admin: 11/12/18 18:33 Dose: Not Given Levetiracetam (Keppra) 1,000 mg PO BID [facility] Last Admin: 11/12/18 17:07 Dose: 1,000 mg Levothyroxine Sodium (Synthroid) 50 mcg PO 0600 [facility] Last Admin: 11/12/18 06:02 Dose: 50 mcg Nystatin (Nystop Topical Powder) 1 applic TOP BID [facility] Last Admin: 11/12/18 17:16 Dose: 1 applic Pantoprazole Sodium (Protonix Susp) 40 mg PO 0600 [facility] Last Admin: 11/12/18 06:02 Dose: 40 mg Rosuvastatin Calcium (Crestor) 10 mg PO HS [facility] Last Admin: 11/11/18 21:00 Dose: 10 mg Saccharomyces Boulardii (Florastor) 250 mg PO TID [facility] Last Admin: 11/12/18 17:07 Dose: 250 mg - Labs Labs: 11/12/18 06:11 11/12/18 06:09 PT 14.3 SECONDS (9.7-12.2) H 11/05/18 05:52 INR 1.3 11/05/18 05:52 APTT 43 SECONDS (21-34) H 11/05/18 05:52
[2018-11-13] MEDS: (Novolog) Insulin Aspart, Recombinant 100 u/ml 10 ml vial SC SCH ×4 (00:06→19:28)
--- NOTE | 2018-11-13 00:25 | PN ---
DATE: 11/12/2018 SUBJECTIVE: The patient was seen today around 5 o'clock and the patient face appeared little swollen and lower lip was swollen. It was unclear what has caused it. She was lethargic and has not been having dialysis done due to catheter malfunction and they have been having trouble with it and she remains lethargic, confused. The patient's family still wanted dialysis, so they are going to put a new catheter tomorrow. She remains on a cooling blanket and the patient is not improving. She is still having fevers. When I saw her today with this lip swelling, I was wondering if she had any reaction to any of the antibiotics or to other medications and she continues to have diarrhea. They stopped the feeding for sometime, then they started it again at this time. OBJECTIVE: VITAL SIGNS: She had 101 rectally today, heart rate is 79, blood pressure 103/57, respirations are 20. HEENT: Head is atraumatic, normocephalic. Some facial redness and lower lip appears swollen. NECK: Supple. LUNGS:: Occasional rhonchi. HEART: S1, S2 is regular. ABDOMEN: Has a PEG tube. She has been having diarrhea. EXTREMITIES: Remain with edema. SKIN: She has a sacral decubitus. LABORATORY DATA: White count is 17.3, hemoglobin 9.2, hematocrit 30.2, platelet count is 177. Recent cultures were sent today according to the nurse again and back wound has Romina, sputum had yeast and she has been on antifungal medication. The CSF came out to be no growth. Blood cultures x2 have been negative from 10/30. AFB cultures sent from the CSF which is negative. Her white count has jumped to 17.3, hemoglobin is 9.2, but the differential remains at 76.1 and the eosinophils are 4.5, that is what is making me feel if there is some allergy to medications. MEDICATIONS: She is on Tylenol, Norvasc, aspirin, dextrose as needed, Procrit. She is on heparin, NovoLog, Keppra, Synthroid, meropenem 500 daily, Flagyl 500 every 8 hours, micafungin 100 mg daily, on vancomycin Tuesdays, and Saturdays. ASSESSMENT AND PLAN: She also had a WBC scan done which shows positive labelled WBC scan corresponding finding on recent CT with respect to anus and perineum.She has probably abscees in that area but pt is with anoxic encephalopathy It also pointed to rectal abscess there and the patient has been on Merrem and Flagyl as well as antifungal agents. If these are not holding, probably she needs the surgery, but she is comatose and history instructor is following. Sara Barrios MD MTDD
[2018-11-13] MEDS: metroNIDAZOLE IV 500 mg/100 ml 500 MG/100 ML BAG IVPB SCH ×3 (01:09→21:00)
[2018-11-13] MEDS: Levothyroxine 50 MCG TAB PO SCH (06:11)
[2018-11-13] MEDS: Pantoprazole 40 mg Susp UD PO SCH (06:11)
--- NOTE | 2018-11-13 06:12 | CP.PCM.PN ---
Subjective - Date & Time of Evaluation Date of Evaluation: 11/12/18 Time of Evaluation: 17:20 - Subjective Subjective: Patient seen and examined. On Ventilator Patient not improving PE Head: Positive for: Atraumatic, Normocephalic Extroacular Muscles: Positive for: EOMI (dropping eyelid left) Conjunctiva: Positive for: Normal Mouth: Positive for: Dry Neck: Positive for: Other (tracheostomy in place with vent, trialysis cath on left side neck area) Respiratory/Chest: Positive for: Decreased Breath Sounds, Other (intubated ). Negative for: Respiratory Distress, Accessory Muscle Use, Tachypneic Cardiovascular: Positive for: Regular Rate and Rhythm, Normal S1, S2 Abdomen: Positive for: Normal Bowel Sounds, Other (PEG tube in place ). Negative for: Tenderness, Distention, Rebound, Guarding Upper Extremity: Positive for: Normal Inspection. Negative for: Cyanosis, Edema Lower Extremity: Positive for: Normal Inspection. Negative for: Edema Neurological: Negative for: GCS=15, CN II-XII Intact, Speech Normal Skin: Positive for: Warm, Dry, Normal Color Psychiatric: Negative for: Alert, Oriented x 3, Normal Insight, Normal Concentration Assessment and Plan - Assessment and Plan (Free Text) Assessment: Patient is a 72 year old female with PMHx of CKD, CHF, CAD s/p stents, pituitary adenoma a/p resection, DM, who was admitted for respiratory and cardiac arrest s/p permacath placement and AVF on 10/05; possible AMS due to anoxic brain injury, now on HD MWF, tracheostomy on 10/18/17, PEG tube placement 10/23/18. Patient became hypotensive overnight and upgraded to ICU. Permacath removed by surgery on 10/30. A trialysis catheter inserted but dialysis reported the line was not function. A IJ central line inserted for dialysis access. Pt had a LP yesterday (11/05) to r/o meningitis. Pt continues to have diarrhea, feeds changed to Glucerna. The left IJ catheter inserted 11/01 for dialysis was repositioned yesterday due to poor blood return. Patient had Ceretec scan to r/o sites of infection. Neuro - Intubated, agitated - no sedation - continue Keppra and valproate as per neuro - Lumbar puncture 11/05: WBC 1.0, Glucose 129, RBC 0, Total protein 56 - f/u CSF antibodies - f/u Neuro recs Cardiac - Hypertension, improving - continue Norvasc 5mg daily - Echo 11/01: Left Ventricle systolic function is normal; EF is 55-60%; hypertensive heart disease; diastolic dysfunction; no AR, MR, pulmonary hypertension; trace to mild tricuspid regurgitation. - continue to monitor vitals - continue Crestor 10mg, ASA 81mg Pulm Intubated, current vent settings PRVC 14/450/5/35 - Pressure support trials - CXR 11/08: No acute infiltrate pleural effusion identified GI - PEG tube in place - Tube feeds changed to Glucerna - rectal tube in place - protonix ppx - CT abdomen/pelvis 10/30: fluid and gas filled distended rectum versus perirectal abscess. Evidence of anastomotic bowel suture material and/or rectal tube/packing material. - per surgery, no intervention at this time Renal - HD schedule: TTHS - continue Procrit Endo - Hx of Hypothyroidism, continue levothyroxine 50mg - Hx of DM, continue Levemir 40 units HS and Levemir 30 units daily - continue ISS high - Discontinue Solu-Medrol 20mg Q12 Heme - H/H 8.9/26.0 - monitor CBC ID - currently afebrile, Tmax 100.4F - WBC 11.9 today, continue to monitor - continue Abx: Meropenem, Flagyl, Vanco - 10/30 Tracheostomy site, sputum cx positive: Romina Albicans - continue Micafungin 100mg - Decubitus Ulcer, unstageable; wound care following - ESR (+) 99 - CRP (+) 155.70 - f/u Ceretec scan - f/u ID recs - JERRY neg PPx - Protonix for GI ppx - DVT ppx: SCDs, Heparin SC - Tylenol PRN for fever - Hypoglycemic protocol PRN - Patient is DNR Objective - Vital Signs/Intake and Output Vital Signs (last 24 hours): Temp Pulse Resp BP Pulse Ox 100.6 F H 86 20 116/62 100 11/13/18 04:00 11/13/18 04:06 11/13/18 04:06 11/13/18 04:06 11/13/18 04:06 Intake and Output: 11/12/18 11/13/18 18:59 06:59 Intake Total 1010 400 Output Total 100 Balance 910 400 - Medications Medications: Current Medications Acetaminophen (Tylenol 650mg/20.3ml Solution Ud) 650 mg PO Q6 PRN PRN Reason: pain+fever Last Admin: 11/12/18 17:07 Dose: 650 mg Amlodipine Besylate (Norvasc) 5 mg PO DAILY [facility] Last Admin: 11/12/18 09:09 Dose: 5 mg Aspirin (Aspirin Chewable) 81 mg PO DAILY [facility] Last Admin: 11/12/18 09:08 Dose: 81 mg Dextrose (Dextrose 50% Inj) 0 ml IV STAT PRN; Protocol PRN Reason: Hypoglycemia Protocol Dextrose (Glutose 15) 0 gm PO ONCE PRN; Protocol PRN Reason: Hypoglycemia Protocol Epoetin Dedrick (Procrit) 10,000 unit IV TTS [facility] Last Admin: 11/10/18 18:17 Dose: 10,000 unit Glucagon (Glucagen Diagnostic Kit) 0 mg IM STAT PRN; Protocol PRN Reason: Hypoglycemia Protocol Heparin Sodium (Porcine) (Heparin (For Dialysis)) 1,000 units IVP ONCE [facility] Vancomycin HCl 500 mg/ Sodium (Chloride) 100 mls @ 100 mls/hr IVPB TTS [facility]; Protocol Last Admin: 11/10/18 10:00 Dose: 100 mls/hr Meropenem 500 mg/ Sodium (Chloride) 100 mls @ 100 mls/hr IVPB DAILY [facility]; Protocol Last Admin: 11/12/18 10:28 Dose: 100 mls/hr Micafungin Sodium 100 mg/ (Dextrose) 100 mls @ 100 mls/hr IV Q24H [facility]; Protocol Last Admin: 11/12/18 17:59 Dose: 100 mls/hr Metronidazole (Flagyl) 500 mg in 100 mls @ 100 mls/hr IVPB Q8H [facility]; Protocol Last Admin: 11/13/18 01:09 Dose: 100 mls/hr Dextrose (Dextrose 5% In Water 1000 Ml) 1,000 mls @ 0 mls/hr IV .Q0M PRN; Protocol PRN Reason: Hypoglycemia Protocol Insulin Aspart (Novolog) 0 unit SC Q6H [facility]; Protocol Last Admin: 11/13/18 06:06 Dose: Not Given Levetiracetam (Keppra) 1,000 mg PO BID [facility] Last Admin: 11/12/18 17:07 Dose: 1,000 mg Levothyroxine Sodium (Synthroid) 50 mcg PO 0600 [facility] Last Admin: 11/13/18 06:11 Dose: 50 mcg Nystatin (Nystop Topical Powder) 1 applic TOP BID [facility] Last Admin: 11/12/18 17:16 Dose: 1 applic Pantoprazole Sodium (Protonix Susp) 40 mg PO 0600 [facility] Last Admin: 11/13/18 06:11 Dose: 40 mg Rosuvastatin Calcium (Crestor) 10 mg PO HS [facility] Last Admin: 11/12/18 21:50 Dose: 10 mg Saccharomyces Boulardii (Florastor) 250 mg PO TID [facility] Last Admin: 11/12/18 17:07 Dose: 250 mg - Labs Labs: 11/12/18 06:11 11/12/18 06:09 PT 14.3 SECONDS (9.7-12.2) H 11/05/18 05:52 INR 1.3 11/05/18 05:52 APTT 43 SECONDS (21-34) H 11/05/18 05:52
[2018-11-13 06:16] LABS: BASO % 0.6 % (0.0-2.0); EOS # 0.6 K/uL (0.0-0.7); EOS % 6.9 % (0.0-4.0); HEMOGLOBIN 9.2 g/dL (11.0-16.0); LYMPH # 1.1 K/uL (1.0-4.3); LYMPH % 13.5 % (20.0-40.0); MEAN CELL VOLUME 91.8 fL (81.0-99.0); MEAN CORPUSCULAR HEMOGLOBIN 28.4 pg (27.0-31.0); MEAN CORPUSCULAR HGB CONC 30.9 g/dL (33.0-37.0); MEAN PLATELET VOLUME 10.8 fL (7.2-11.7); MONO # 0.8 K/uL (0.0-0.8); MONO % 9.6 % (0.0-10.0); NEUT # 5.7 K/uL (1.8-7.0); NEUT % 69.4 % (50.0-75.0); RBC 3.23 Mil/uL (3.80-5.20); RED CELL DISTRIBUTION WIDTH 21.7 % (11.5-14.5); WHITE BLOOD COUNT 8.3 K/uL (4.8-10.8)
[2018-11-13 06:28] LABS: ALB/GLOB RATIO 1.1 (1.0-2.1); ALBUMIN 3.1 g/dL (3.5-5.0); CALCIUM 7.4 mg/dl (8.6-10.4)
[2018-11-13] MEDS: Saccharomyces Boulardi 250 mg Cap PO SCH ×3 (09:01→19:26)
[2018-11-13] MEDS: levETIRAcetam 100 mg/ml (5ml) Oral Syringe PO SCH ×2 (09:04→19:24)
[2018-11-13] MEDS: Meropenem 500 MG in Sodium Chloride 0.9% 100 ML IVPB SCH (09:10)
[2018-11-13] MEDS: Vitamins A & D Oint UD Foilpak TOP PRN (09:13)
[2018-11-13] MEDS ORDERED: HEPARIN-NS 5,000 UNITS/500 ML 5,000 UNIT/500 ML BAG IV ONE (11:59)
[2018-11-13] MEDS ORDERED: Lidocaine 2% MPF (5 ml) Inj ONE (11:59)
--- NOTE | 2018-11-13 13:53 | RAD ---
Date of service: 11/13/2018 HISTORY: on ventilator COMPARISON: 11/08/2018 FINDINGS: LUNGS: No consolidation appreciated Tracheostomy tube tip at thoracic outlet PLEURA: No significant pleural effusion identified, no pneumothorax apparent. CARDIOVASCULAR: There is presence of aortic atherosclerotic calcification on x-ray. Cardiomegaly Possible pulmonary vascular congestion. Left central venous catheter internal jugular vein approach tip projecting over superior vena cava level-not significantly changed. Correlate clinically with the tube type is advised. OSSEOUS STRUCTURES: Thoraco lumbar spondylosis. Left shoulder arthrosis. VISUALIZED UPPER ABDOMEN: Normal. OTHER FINDINGS: None. IMPRESSION: No interval pathology noted. Other findings as above.
--- NOTE | 2018-11-13 14:07 | CP.CCUPN ---
<Amarjit Langford M - Last Filed: 11/13/18 14:46> CCU Subjective - Physician Review Subjective (Free Text): Patient seen and examined at bedside today. Patient remains intubated. Patient is not on sedation and patient seems agitated. Patient continues to flail arms around without purpose. ROS is unobtainable due to patients mental status. Per nursing staff, patient continues to have diarrhea. Patient scheduled for permacath replacement today. 11/13/18 14:46 CCU Objective - Vital Signs / Intake & Output Vital Signs (Last 4 hours): Vital Signs Pulse Resp BP Pulse Ox 11/13/18 13:23 93 H 22 95/71 L 82 L 11/13/18 12:06 86 15 112/63 100 11/13/18 11:06 88 19 125/68 99 11/13/18 10:06 86 21 122/69 99 Intake and Output (Last 8hrs): Intake & Output 11/12/18 11/13/18 11/13/18 22:59 06:59 14:59 Intake Total 590 310 430 Balance 590 310 430 Weight 206 lb Intake: Intake, IV Amount 200 200 Left Internal Jugular 200 left trialysis IJ 200 Tube Feeding 240 260 230 Other 150 50 0 Other: # Bowel Movements 1 0 1 - Physical Exam Head: Positive for: Atraumatic, Normocephalic Extroacular Muscles: Positive for: EOMI (dropping eyelid left) Conjunctiva: Positive for: Normal Mouth: Positive for: Dry Pharnyx: Positive for: ERYTHEMA (erythemia around lips) Neck: Positive for: Other (tracheostomy in place with vent, trialysis cath on left side neck area ) Respiratory/Chest: Positive for: Decreased Breath Sounds, Other (intubated ). Negative for: Respiratory Distress, Accessory Muscle Use, Tachypneic Cardiovascular: Positive for: Regular Rate and Rhythm, Normal S1, S2 Abdomen: Positive for: Normal Bowel Sounds, Other (PEG tube in place ). Negative for: Tenderness, Distention, Rebound, Guarding Back: Positive for: Decubitus Ulcer (unstagable) Upper Extremity: Positive for: Normal Inspection. Negative for: Cyanosis, Edema Lower Extremity: Positive for: Normal Inspection. Negative for: Edema Neurological: Negative for: GCS=15, CN II-XII Intact, Speech Normal Skin: Positive for: Warm, Dry, Normal Color Psychiatric: Negative for: Alert, Oriented x 3, Normal Insight, Normal Concentration - Medications Active Medications: Active Medications Generic Name Dose Route Start Last Admin Trade Name Freq PRN Reason Stop Dose Admin Acetaminophen 650 mg 10/25/18 03:30 11/12/18 17:07 Tylenol 650mg/20.3ml Solution Ud PO 650 mg Q6 PRN Administration pain+fever Amlodipine Besylate 5 mg 11/07/18 11:00 11/13/18 09:02 Norvasc PO 5 mg DAILY JOCELYN Administration Aspirin 81 mg 10/08/18 10:00 11/12/18 09:08 Aspirin Chewable PO 81 mg DAILY JOCELYN Administration Dextrose 0 ml 11/12/18 12:28 Dextrose 50% Inj IV STAT PRN Hypoglycemia Protocol Protocol Dextrose 0 gm 11/12/18 12:28 Glutose 15 PO ONCE PRN Hypoglycemia Protocol Protocol Epoetin Dedrick 10,000 unit 11/01/18 14:00 11/10/18 18:17 Procrit IV 10,000 unit TTS JOCELYN Administration Glucagon 0 mg 11/12/18 12:28 Glucagen Diagnostic Kit IM STAT PRN Hypoglycemia Protocol Protocol Meropenem 500 mg/ Sodium 100 mls @ 100 mls/hr 11/10/18 10:00 11/13/18 09:10 Chloride IVPB 100 mls/hr DAILY JOCELYN Administration Protocol Micafungin Sodium 100 mg/ 100 mls @ 100 mls/hr 11/10/18 19:00 11/12/18 17:59 Dextrose IV 100 mls/hr Q24H JOCELYN Administration Protocol Metronidazole 500 mg in 100 mls @ 100 mls/hr 11/12/18 08:30 11/13/18 08:08 Flagyl IVPB 100 mls/hr Q8H JOCELYN Administration Protocol Dextrose 1,000 mls @ 0 mls/hr 11/12/18 12:28 Dextrose 5% In Water 1000 Ml IV .Q0M PRN Hypoglycemia Protocol Protocol Per Protocol Insulin Aspart 0 unit 10/31/18 12:00 11/13/18 12:45 Novolog SC Not Given Q6H JOCELYN Protocol Levetiracetam 1,000 mg 10/28/18 18:00 11/13/18 09:04 Keppra PO 1,000 mg BID JOCELYN Administration Levothyroxine Sodium 50 mcg 09/29/18 08:00 11/13/18 06:11 Synthroid PO 50 mcg 0600 JOCELYN Administration Nystatin 1 applic 11/12/18 10:00 11/13/18 09:05 Nystop Topical Powder TOP 1 applic BID JOCELYN Administration Pantoprazole Sodium 40 mg 10/09/18 06:00 11/13/18 06:11 Protonix Susp PO 40 mg 0600 JOCELYN Administration Rosuvastatin Calcium 10 mg 09/30/18 22:00 11/12/18 21:50 Crestor PO 10 mg HS JOCELYN Administration Saccharomyces Boulardii 250 mg 11/01/18 10:00 11/13/18 13:18 Florastor PO 250 mg TID JOCELYN Administration Vitamin A 0.5 ea 11/13/18 08:30 11/13/18 09:13 Vitamin A & D Oint Ud Foilpak TOP 11/16/18 08:31 0.5 ea Q4 PRN Administration Dry mouth - Patient Studies Lab Studies: Microbiology Studies 11/12/18 10:47 Blood Culture - Preliminary Blood NO GROWTH AFTER 24 HOURS 11/12/18 10:36 Urine Culture - Final Urine,Catheterized No Growth (<1,000 CFU/ML) 11/05/18 10:54 Mycobacterial Culture - Preliminary Other: Please Indicate Lab Studies 11/13/18 11/13/18 11/13/18 Range/Units 06:10 06:10 05:42 WBC 8.3 D (4.8-10.8) K/uL RBC 3.23 L (3.80-5.20) Mil/uL Hgb 9.2 L (11.0-16.0) g/dL Hct 29.7 L (34.0-47.0) % MCV 91.8 (81.0-99.0) fL MCH 28.4 (27.0-31.0) pg MCHC 30.9 L (33.0-37.0) g/dL RDW 21.7 H (11.5-14.5) % Plt Count 222 (130-400) K/uL MPV 10.8 (7.2-11.7) fL Neut % (Auto) 69.4 (50.0-75.0) % Lymph % (Auto) 13.5 L (20.0-40.0) % [place] % (Auto) 9.6 (0.0-10.0) % Eos % (Auto) 6.9 H (0.0-4.0) % Baso % (Auto) 0.6 (0.0-2.0) % Neut # (Auto) 5.7 (1.8-7.0) K/uL Lymph # (Auto) 1.1 (1.0-4.3) K/uL [place] # (Auto) 0.8 (0.0-0.8) K/uL Eos # (Auto) 0.6 (0.0-0.7) K/uL Baso # (Auto) 0.0 (0.0-0.2) K/uL Sodium 137 (132-148) mmol/L Potassium 5.4 H (3.6-5.2) mmol/L Chloride 105 (98-107) mmol/L Carbon Dioxide 19 L (22-30) mmol/L Anion Gap 19 (10-20) BUN 95 H (7-17) mg/dL Creatinine 5.3 H (0.7-1.2) mg/dL Est GFR ( Amer) 10 Est GFR (Non-Af Amer) 8 POC Glucose (mg/dL) 141 H (65-110) mg/dL Random Glucose 124 H D (65-105) mg/dL Calcium 7.4 L (8.6-10.4) mg/dl Phosphorus 8.6 H (2.5-4.5) mg/dL Magnesium 2.3 (1.6-2.3) mg/dL Total Bilirubin 0.4 (0.2-1.3) mg/dL AST 47 H (14-36) U/L ALT 19 (9-52) U/L Alkaline Phosphatase 174 H (38-126) U/L Total Protein 5.9 L (6.3-8.3) g/dL Albumin 3.1 L (3.5-5.0) g/dL Globulin 2.8 (2.2-3.9) gm/dL Albumin/Globulin Ratio 1.1 (1.0-2.1) CSF Oligoclonal Bands Stool Leukocytes, Qual (NEGATIVE) C. difficile Ag & Toxin (NEGATIVE) 11/13/18 11/12/18 11/12/18 Range/Units 00:25 23:27 18:32 WBC (4.8-10.8) K/uL RBC (3.80-5.20) Mil/uL Hgb (11.0-16.0) g/dL Hct (34.0-47.0) % MCV (81.0-99.0) fL MCH (27.0-31.0) pg MCHC (33.0-37.0) g/dL RDW (11.5-14.5) % Plt Count (130-400) K/uL MPV (7.2-11.7) fL Neut % (Auto) (50.0-75.0) % Lymph % (Auto) (20.0-40.0) % [place] % (Auto) (0.0-10.0) % Eos % (Auto) (0.0-4.0) % Baso % (Auto) (0.0-2.0) % Neut # (Auto) (1.8-7.0) K/uL Lymph # (Auto) (1.0-4.3) K/uL [place] # (Auto) (0.0-0.8) K/uL Eos # (Auto) (0.0-0.7) K/uL Baso # (Auto) (0.0-0.2) K/uL Sodium (132-148) mmol/L Potassium (3.6-5.2) mmol/L Chloride (98-107) mmol/L Carbon Dioxide (22-30) mmol/L Anion Gap (10-20) BUN (7-17) mg/dL Creatinine (0.7-1.2) mg/dL Est GFR ( Amer) Est GFR (Non-Af Amer) POC Glucose (mg/dL) 105 108 (65-110) mg/dL Random Glucose (65-105) mg/dL Calcium (8.6-10.4) mg/dl Phosphorus (2.5-4.5) mg/dL Magnesium (1.6-2.3) mg/dL Total Bilirubin (0.2-1.3) mg/dL AST (14-36) U/L ALT (9-52) U/L Alkaline Phosphatase (38-126) U/L Total Protein (6.3-8.3) g/dL Albumin (3.5-5.0) g/dL Globulin (2.2-3.9) gm/dL Albumin/Globulin Ratio (1.0-2.1) CSF Oligoclonal Bands Stool Leukocytes, Qual Negative (NEGATIVE) C. difficile Ag & Toxin (NEGATIVE) 11/12/18 11/05/18 Range/Units 07:19 10:54 WBC (4.8-10.8) K/uL RBC (3.80-5.20) Mil/uL Hgb (11.0-16.0) g/dL Hct (34.0-47.0) % MCV (81.0-99.0) fL MCH (27.0-31.0) pg MCHC (33.0-37.0) g/dL RDW (11.5-14.5) % Plt Count (130-400) K/uL MPV (7.2-11.7) fL Neut % (Auto) (50.0-75.0) % Lymph % (Auto) (20.0-40.0) % [place] % (Auto) (0.0-10.0) % Eos % (Auto) (0.0-4.0) % Baso % (Auto) (0.0-2.0) % Neut # (Auto) (1.8-7.0) K/uL Lymph # (Auto) (1.0-4.3) K/uL [place] # (Auto) (0.0-0.8) K/uL Eos # (Auto) (0.0-0.7) K/uL Baso # (Auto) (0.0-0.2) K/uL Sodium (132-148) mmol/L Potassium (3.6-5.2) mmol/L Chloride (98-107) mmol/L Carbon Dioxide (22-30) mmol/L Anion Gap (10-20) BUN (7-17) mg/dL Creatinine (0.7-1.2) mg/dL Est GFR ( Amer) Est GFR (Non-Af Amer) POC Glucose (mg/dL) (65-110) mg/dL Random Glucose (65-105) mg/dL Calcium (8.6-10.4) mg/dl Phosphorus (2.5-4.5) mg/dL Magnesium (1.6-2.3) mg/dL Total Bilirubin (0.2-1.3) mg/dL AST (14-36) U/L ALT (9-52) U/L Alkaline Phosphatase (38-126) U/L Total Protein (6.3-8.3) g/dL Albumin (3.5-5.0) g/dL Globulin (2.2-3.9) gm/dL Albumin/Globulin Ratio (1.0-2.1) CSF Oligoclonal Bands see note Stool Leukocytes, Qual (NEGATIVE) C. difficile Ag & Toxin Negative (NEGATIVE) Laboratory Results - last 24 hr 11/05/18 11/12/18 11/12/18 10:54 07:19 18:32 WBC RBC Hgb Hct MCV MCH MCHC RDW Plt Count MPV Neut % (Auto) Lymph % (Auto) [place] % (Auto) Eos % (Auto) Baso % (Auto) Neut # (Auto) Lymph # (Auto) [place] # (Auto) Eos # (Auto) Baso # (Auto) Sodium Potassium Chloride Carbon Dioxide Anion Gap BUN Creatinine Est GFR ( Amer) Est GFR (Non-Af Amer) POC Glucose (mg/dL) 108 Random Glucose Calcium Phosphorus Magnesium Total Bilirubin AST ALT Alkaline Phosphatase Total Protein Albumin Globulin Albumin/Globulin Ratio CSF Oligoclonal Bands see note Stool Leukocytes, Qual C. difficile Ag & Toxin Negative 11/12/18 11/13/18 11/13/18 23:27 00:25 05:42 WBC RBC Hgb Hct MCV MCH MCHC RDW Plt Count MPV Neut % (Auto) Lymph % (Auto) [place] % (Auto) Eos % (Auto) Baso % (Auto) Neut # (Auto) Lymph # (Auto) [place] # (Auto) Eos # (Auto) Baso # (Auto) Sodium Potassium Chloride Carbon Dioxide Anion Gap BUN Creatinine Est GFR ( Amer) Est GFR (Non-Af Amer) POC Glucose (mg/dL) 105 141 H Random Glucose Calcium Phosphorus Magnesium Total Bilirubin AST ALT Alkaline Phosphatase Total Protein Albumin Globulin Albumin/Globulin Ratio CSF Oligoclonal Bands Stool Leukocytes, Qual Negative C. difficile Ag & Toxin 11/13/18 11/13/18 06:10 06:10 WBC 8.3 D RBC 3.23 L Hgb 9.2 L Hct 29.7 L MCV 91.8 MCH 28.4 MCHC 30.9 L RDW 21.7 H Plt Count 222 MPV 10.8 Neut % (Auto) 69.4 Lymph % (Auto) 13.5 L [place] % (Auto) 9.6 Eos % (Auto) 6.9 H Baso % (Auto) 0.6 Neut # (Auto) 5.7 Lymph # (Auto) 1.1 [place] # (Auto) 0.8 Eos # (Auto) 0.6 Baso # (Auto) 0.0 Sodium 137 Potassium 5.4 H Chloride 105 Carbon Dioxide 19 L Anion Gap 19 BUN 95 H Creatinine 5.3 H Est GFR ( Amer) 10 Est GFR (Non-Af Amer) 8 POC Glucose (mg/dL) Random Glucose 124 H D Calcium 7.4 L Phosphorus 8.6 H Magnesium 2.3 Total Bilirubin 0.4 AST 47 H ALT 19 Alkaline Phosphatase 174 H Total Protein 5.9 L Albumin 3.1 L Globulin 2.8 Albumin/Globulin Ratio 1.1 CSF Oligoclonal Bands Stool Leukocytes, Qual C. difficile Ag & Toxin Radiology Impressions: Radiology Impressions Chest X-Ray 11/13/18 07:00 IMPRESSION: No interval pathology noted. Other findings as above. Fingerstick Blood Sugar Results: 163 Review of Systems - Review of Systems Systems not reviewed;Unavailable: Intubated Critical Care Progress Note - Ventilator Checklist Head of Bed 30 Degrees: Yes Daily Sedation Vacation: Yes Daily Assessment of Readiness to Wean: Yes PUD Prophalyxis: Yes DVT Prophylaxis: Yes Oral Care with Chlorhexidine Gluconate {CHG}: Yes - Vent Settings TIDAL VOLUME:: 450 RESP RATE:: 15 FIO2:: 35 PEEP:: 5 - Extremities/Vascular Does the Patient have a Central Venous Catheter?: Yes Insertion Site: Internal Jugular Vein Does the Patient need a Central Venous Catheter?: Yes Does the Patient have a Rodriguez Catheter?: Yes Does the Patient need a Rodriguez Catheter?: Yes - Prophylaxis GI Prophylaxis GI: PPI - Prophylaxis DVT Prophylaxis DVT: Heparin SQ Assessment/Plan - Assessment and Plan (Free Text) Assessment: Patient is a 72 year old female with PMHx of CKD, CHF, CAD s/p stents, pituitary adenoma a/p resection, DM, who was admitted for respiratory and cardiac arrest s/p permacath placement and AVF on 10/05; possible AMS due to anoxic brain injury, now on HD MWF, tracheostomy on 10/18/17, PEG tube placement 10/23/18. Patient became hypotensive overnight and upgraded to ICU. Permacath removed by surgery on 10/30. A trialysis catheter inserted but dialysis reported the line was not function. A IJ central line inserted for dialysis access. Pt had a LP yesterday (11/05) to r/o meningitis. Pt continues to have diarrhea, feeds changed to Glucerna. The left IJ catheter inserted 11/01 for dialysis was repositioned yesterday due to poor blood return. Patients family made decision to make patient DNR (11/08) after long discussion regarding goals of care. Patient remains intubated and patients family still remains without decision regarding terminal extubation. Patient continues to have diarrhea; rectal tube remains in place. Patient to go to OR today for permacath placement for dialysis. Plan: Neuro - Intubated, agitated - No sedation - continue Keppra and valproate as per neuro - Lumbar puncture 11/05: WBC 1.0, Glucose 129, RBC 0, Total protein 56 - CSF - negative for herpes I&II, HIV, West Nile, VDRL - f/u Neuro recs Cardiac - Hypertension, improved - continue Norvasc 5mg daily - Echo 11/01: Left Ventricle systolic function is normal; EF is 55-60%; hypertensive heart disease; diastolic dysfunction; no AR, MR, pulmonary hypertension; trace to mild tricuspid regurgitation. - continue to monitor vitals - continue Crestor 10mg, ASA 81mg Pulm - Intubated, current vent settings PRVC 14/450/5/35 - Pressure support trials - CXR 11/08: No acute infiltrate pleural effusion identified GI - PEG tube in place - Tube feeds changed to Glucerna at rate of 20ml/hr due to diarrhea - rectal tube in place - protonix ppx - CT abdomen/pelvis 10/30: fluid and gas filled distended rectum versus perirectal abscess. Evidence of anastomotic bowel suture material and/or rectal tube/packing material. - per surgery, no intervention at this time Renal - Dialysis today after OR - HD schedule: [facility] - OR today for permacath placement for dialysis - continue Procrit Endo - Hx of Hypothyroidism, continue levothyroxine 50mg - Hx of DM, continue ISS - insulin held on 11/12 due to hypoglycemia - Accuchecks Q6H Heme - H/H 9.2/29.7 - monitor CBC ID - Febrile, Tmax 100.6F - WBC 8.3 today, continue to monitor - f/u stool cx, blood cx, urine cx - f/u c.difficle toxin - continue Abx: Meropenem, Flagyl, Vanco - 10/30 Tracheostomy site, sputum cx positive: Romina Albicans - continue Micafungin 100mg - Nystatin powder for fungal rash on chest - Decubitus Ulcer, unstageable; wound care following - Consult Surgery to re-evaluate perirectal abscess following ceretec scan results - surgery - nothing to do at this point - ESR (+) 99 (2/5) - CRP (+) 155.70 (2/5) - f/u ID recs Rheum - JERRY negative (11/06) PPx - Protonix for GI ppx - DVT ppx: SCDs, Heparin SC - Tylenol PRN for fever - Hypoglycemic protocol PRN <Eliseo Ríso S - Last Filed: 11/13/18 18:01> CCU Subjective - Physician Review Critical Care Time Spent (in minutes): 40 CCU Objective - Vital Signs / Intake & Output Vital Signs (Last 4 hours): Vital Signs Temp Pulse Pulse Resp BP BP Pulse Ox 11/13/18 17:50 105/81 11/13/18 17:35 101/51 L 11/13/18 17:20 99.7 F H 87 16 117/53 L 100 11/13/18 17:10 99.7 F H 87 22 116/58 L Intake and Output (Last 8hrs): Intake & Output 11/13/18 11/13/18 11/13/18 06:59 14:59 22:59 Intake Total 310 430 350 Balance 310 430 350 Weight 206 lb Intake: IV 350 Intake, IV Amount 200 left trialysis IJ 200 Tube Feeding 260 230 Other 50 0 Other: # Bowel Movements 0 1 - Medications Active Medications: Active Medications Generic Name Dose Route Start Last Admin Trade Name Freq PRN Reason Stop Dose Admin Acetaminophen 650 mg 10/25/18 03:30 11/12/18 17:07 Tylenol 650mg/20.3ml Solution Ud PO 650 mg Q6 PRN Administration pain+fever Amlodipine Besylate 5 mg 11/07/18 11:00 11/13/18 09:02 Norvasc PO 5 mg DAILY JOCELYN Administration Aspirin 81 mg 10/08/18 10:00 11/13/18 10:58 Aspirin Chewable PO 81 mg DAILY JOCELYN Administration Dextrose 0 ml 11/12/18 12:28 Dextrose 50% Inj IV STAT PRN Hypoglycemia Protocol Protocol Dextrose 0 gm 11/12/18 12:28 Glutose 15 PO ONCE PRN Hypoglycemia Protocol Protocol Epoetin Dedrick 10,000 unit 11/01/18 14:00 11/10/18 18:17 Procrit IV 10,000 unit TTS JOCELYN Administration Glucagon 0 mg 11/12/18 12:28 Glucagen Diagnostic Kit IM STAT PRN Hypoglycemia Protocol Protocol Heparin Sodium (Porcine) 5,000 units 11/14/18 06:00 Heparin SC Q8 JOCELYN Meropenem 500 mg/ Sodium 100 mls @ 100 mls/hr 11/10/18 10:00 11/13/18 09:10 Chloride IVPB 100 mls/hr DAILY JOCELYN Administration Protocol Micafungin Sodium 100 mg/ 100 mls @ 100 mls/hr 11/10/18 19:00 11/12/18 17:59 Dextrose IV 100 mls/hr Q24H JOCELYN Administration Protocol Metronidazole 500 mg in 100 mls @ 100 mls/hr 11/12/18 08:30 11/13/18 08:08 Flagyl IVPB 100 mls/hr Q8H JOCELYN Administration Protocol Dextrose 1,000 mls @ 0 mls/hr 11/12/18 12:28 Dextrose 5% In Water 1000 Ml IV .Q0M PRN Hypoglycemia Protocol Protocol Per Protocol Insulin Aspart 0 unit 10/31/18 12:00 11/13/18 12:45 Novolog SC Not Given Q6H JOCELYN Protocol Levetiracetam 1,000 mg 10/28/18 18:00 11/13/18 09:04 Keppra PO 1,000 mg BID JOCELYN Administration Levothyroxine Sodium 50 mcg 09/29/18 08:00 11/13/18 06:11 Synthroid PO 50 mcg 0600 JOCELYN Administration Nystatin 1 applic 11/12/18 10:00 11/13/18 17:01 Nystop Topical Powder TOP 1 applic BID JOCELYN Administration Pantoprazole Sodium 40 mg 10/09/18 06:00 11/13/18 06:11 Protonix Susp PO 40 mg 0600 JOCELYN Administration Rosuvastatin Calcium 10 mg 09/30/18 22:00 11/12/18 21:50 Crestor PO 10 mg HS JOCELYN Administration Saccharomyces Boulardii 250 mg 11/01/18 10:00 11/13/18 13:18 Florastor PO 250 mg TID JOCELYN Administration Vitamin A 0.5 ea 11/13/18 08:30 11/13/18 09:13 Vitamin A & D Oint Ud Foilpak TOP 11/16/18 08:31 0.5 ea Q4 PRN Administration Dry mouth - Patient Studies Lab Studies: Microbiology Studies 11/12/18 10:47 Blood Culture - Preliminary Blood NO GROWTH AFTER 24 HOURS 11/12/18 10:36 Urine Culture - Final Urine,Catheterized No Growth (<1,000 CFU/ML) 11/05/18 10:54 Mycobacterial Culture - Preliminary Other: Please Indicate Lab Studies 11/13/18 11/13/18 11/13/18 Range/Units 11:09 06:10 06:10 WBC 8.3 D (4.8-10.8) K/uL RBC 3.23 L (3.80-5.20) Mil/uL Hgb 9.2 L (11.0-16.0) g/dL Hct 29.7 L (34.0-47.0) % MCV 91.8 (81.0-99.0) fL MCH 28.4 (27.0-31.0) pg MCHC 30.9 L (33.0-37.0) g/dL RDW 21.7 H (11.5-14.5) % Plt Count 222 (130-400) K/uL MPV 10.8 (7.2-11.7) fL Neut % (Auto) 69.4 (50.0-75.0) % Lymph % (Auto) 13.5 L (20.0-40.0) % [place] % (Auto) 9.6 (0.0-10.0) % Eos % (Auto) 6.9 H (0.0-4.0) % Baso % (Auto) 0.6 (0.0-2.0) % Neut # (Auto) 5.7 (1.8-7.0) K/uL Lymph # (Auto) 1.1 (1.0-4.3) K/uL [place] # (Auto) 0.8 (0.0-0.8) K/uL Eos # (Auto) 0.6 (0.0-0.7) K/uL Baso # (Auto) 0.0 (0.0-0.2) K/uL Sodium 137 (132-148) mmol/L Potassium 5.4 H (3.6-5.2) mmol/L Chloride 105 (98-107) mmol/L Carbon Dioxide 19 L (22-30) mmol/L Anion Gap 19 (10-20) BUN 95 H (7-17) mg/dL Creatinine 5.3 H (0.7-1.2) mg/dL Est GFR ( Amer) 10 Est GFR (Non-Af Amer) 8 POC Glucose (mg/dL) 163 H (65-110) mg/dL Random Glucose 124 H D (65-105) mg/dL Calcium 7.4 L (8.6-10.4) mg/dl Phosphorus 8.6 H (2.5-4.5) mg/dL Magnesium 2.3 (1.6-2.3) mg/dL Total Bilirubin 0.4 (0.2-1.3) mg/dL AST 47 H (14-36) U/L ALT 19 (9-52) U/L Alkaline Phosphatase 174 H (38-126) U/L Total Protein 5.9 L (6.3-8.3) g/dL Albumin 3.1 L (3.5-5.0) g/dL Globulin 2.8 (2.2-3.9) gm/dL Albumin/Globulin Ratio 1.1 (1.0-2.1) CSF Oligoclonal Bands CSF West Nile IgG Ab (<1.30) index CSF West Nile IgM Ab (<0.90) index Stool Leukocytes, Qual (NEGATIVE) C. difficile Ag & Toxin (NEGATIVE) 11/13/18 11/13/18 11/12/18 Range/Units 05:42 00:25 23:27 WBC (4.8-10.8) K/uL RBC (3.80-5.20) Mil/uL Hgb (11.0-16.0) g/dL Hct (34.0-47.0) % MCV (81.0-99.0) fL MCH (27.0-31.0) pg MCHC (33.0-37.0) g/dL RDW (11.5-14.5) % Plt Count (130-400) K/uL MPV (7.2-11.7) fL Neut % (Auto) (50.0-75.0) % Lymph % (Auto) (20.0-40.0) % [place] % (Auto) (0.0-10.0) % Eos % (Auto) (0.0-4.0) % Baso % (Auto) (0.0-2.0) % Neut # (Auto) (1.8-7.0) K/uL Lymph # (Auto) (1.0-4.3) K/uL [place] # (Auto) (0.0-0.8) K/uL Eos # (Auto) (0.0-0.7) K/uL Baso # (Auto) (0.0-0.2) K/uL Sodium (132-148) mmol/L Potassium (3.6-5.2) mmol/L Chloride (98-107) mmol/L Carbon Dioxide (22-30) mmol/L Anion Gap (10-20) BUN (7-17) mg/dL Creatinine (0.7-1.2) mg/dL Est GFR ( Amer) Est GFR (Non-Af Amer) POC Glucose (mg/dL) 141 H 105 (65-110) mg/dL Random Glucose (65-105) mg/dL Calcium (8.6-10.4) mg/dl Phosphorus (2.5-4.5) mg/dL Magnesium (1.6-2.3) mg/dL Total Bilirubin (0.2-1.3) mg/dL AST (14-36) U/L ALT (9-52) U/L Alkaline Phosphatase (38-126) U/L Total Protein (6.3-8.3) g/dL Albumin (3.5-5.0) g/dL Globulin (2.2-3.9) gm/dL Albumin/Globulin Ratio (1.0-2.1) CSF Oligoclonal Bands CSF West Nile IgG Ab (<1.30) index CSF West Nile IgM Ab (<0.90) index Stool Leukocytes, Qual Negative (NEGATIVE) C. difficile Ag & Toxin (NEGATIVE) 11/12/18 11/12/18 11/05/18 Range/Units 18:32 07:19 10:54 WBC (4.8-10.8) K/uL RBC (3.80-5.20) Mil/uL Hgb (11.0-16.0) g/dL Hct (34.0-47.0) % MCV (81.0-99.0) fL MCH (27.0-31.0) pg MCHC (33.0-37.0) g/dL RDW (11.5-14.5) % Plt Count (130-400) K/uL MPV (7.2-11.7) fL Neut % (Auto) (50.0-75.0) % Lymph % (Auto) (20.0-40.0) % [place] % (Auto) (0.0-10.0) % Eos % (Auto) (0.0-4.0) % Baso % (Auto) (0.0-2.0) % Neut # (Auto) (1.8-7.0) K/uL Lymph # (Auto) (1.0-4.3) K/uL [place] # (Auto) (0.0-0.8) K/uL Eos # (Auto) (0.0-0.7) K/uL Baso # (Auto) (0.0-0.2) K/uL Sodium (132-148) mmol/L Potassium (3.6-5.2) mmol/L Chloride (98-107) mmol/L Carbon Dioxide (22-30) mmol/L Anion Gap (10-20) BUN (7-17) mg/dL Creatinine (0.7-1.2) mg/dL Est GFR ( Amer) Est GFR (Non-Af Amer) POC Glucose (mg/dL) 108 (65-110) mg/dL Random Glucose (65-105) mg/dL Calcium (8.6-10.4) mg/dl Phosphorus (2.5-4.5) mg/dL Magnesium (1.6-2.3) mg/dL Total Bilirubin (0.2-1.3) mg/dL AST (14-36) U/L ALT (9-52) U/L Alkaline Phosphatase (38-126) U/L Total Protein (6.3-8.3) g/dL Albumin (3.5-5.0) g/dL Globulin (2.2-3.9) gm/dL Albumin/Globulin Ratio (1.0-2.1) CSF Oligoclonal Bands see note CSF [place] IgG Ab <1.30 (<1.30) index CSF [place] IgM Ab <0.90 (<0.90) index Stool Leukocytes, Qual (NEGATIVE) C. difficile Ag & Toxin Negative (NEGATIVE) Laboratory Results - last 24 hr 11/05/18 11/12/18 11/12/18 10:54 07:19 18:32 WBC RBC Hgb Hct MCV MCH MCHC RDW Plt Count MPV Neut % (Auto) Lymph % (Auto) [place] % (Auto) Eos % (Auto) Baso % (Auto) Neut # (Auto) Lymph # (Auto) [place] # (Auto) Eos # (Auto) Baso # (Auto) Sodium Potassium Chloride Carbon Dioxide Anion Gap BUN Creatinine Est GFR ( Amer) Est GFR (Non-Af Amer) POC Glucose (mg/dL) 108 Random Glucose Calcium Phosphorus Magnesium Total Bilirubin AST ALT Alkaline Phosphatase Total Protein Albumin Globulin Albumin/Globulin Ratio CSF Oligoclonal Bands see note CSF [place] IgG Ab <1.30 CSF [place] IgM Ab <0.90 Stool Leukocytes, Qual C. difficile Ag & Toxin Negative 11/12/18 11/13/18 11/13/18 23:27 00:25 05:42 WBC RBC Hgb Hct MCV MCH MCHC RDW Plt Count MPV Neut % (Auto) Lymph % (Auto) [place] % (Auto) Eos % (Auto) Baso % (Auto) Neut # (Auto) Lymph # (Auto) [place] # (Auto) Eos # (Auto) Baso # (Auto) Sodium Potassium Chloride Carbon Dioxide Anion Gap BUN Creatinine Est GFR ( Amer) Est GFR (Non-Af Amer) POC Glucose (mg/dL) 105 141 H Random Glucose Calcium Phosphorus Magnesium Total Bilirubin AST ALT Alkaline Phosphatase Total Protein Albumin Globulin Albumin/Globulin Ratio CSF Oligoclonal Bands CSF [place] IgG Ab CSF [place] IgM Ab Stool Leukocytes, Qual Negative C. difficile Ag & Toxin 11/13/18 11/13/18 11/13/18 06:10 06:10 11:09 WBC 8.3 D RBC 3.23 L Hgb 9.2 L Hct 29.7 L MCV 91.8 MCH 28.4 MCHC 30.9 L RDW 21.7 H Plt Count 222 MPV 10.8 Neut % (Auto) 69.4 Lymph % (Auto) 13.5 L [place] % (Auto) 9.6 Eos % (Auto) 6.9 H Baso % (Auto) 0.6 Neut # (Auto) 5.7 Lymph # (Auto) 1.1 [place] # (Auto) 0.8 Eos # (Auto) 0.6 Baso # (Auto) 0.0 Sodium 137 Potassium 5.4 H Chloride 105 Carbon Dioxide 19 L Anion Gap 19 BUN 95 H Creatinine 5.3 H Est GFR ( Amer) 10 Est GFR (Non-Af Amer) 8 POC Glucose (mg/dL) 163 H Random Glucose 124 H D Calcium 7.4 L Phosphorus 8.6 H Magnesium 2.3 Total Bilirubin 0.4 AST 47 H ALT 19 Alkaline Phosphatase 174 H Total Protein 5.9 L Albumin 3.1 L Globulin 2.8 Albumin/Globulin Ratio 1.1 CSF Oligoclonal Bands CSF [place] IgG Ab CSF [place] IgM Ab Stool Leukocytes, Qual C. difficile Ag & Toxin Radiology Impressions: Radiology Impressions Chest X-Ray 11/13/18 07:00 IMPRESSION: No interval pathology noted. Other findings as above. Chest X-Ray 11/13/18 15:57 IMPRESSION: Right PermCath terminates in the right atrium. Stable position of the tracheostomy tube. Mild cardiomegaly and pulmonary venous congestion. Attending/Attestation - Attestation I have personally seen and examined this patient.: Yes I have fully participated in the care of the patient.: Yes I have reviewed all pertinent clinical information: Yes Notes (Text): 11/13/18 18:01 Patient seen and examined in the intensive care unit. Status post permacath catheter placement Continue IV antibiotics Case discussed with surgery Continue hemodialysis and ventilator support
[2018-11-13] MEDS ORDERED: metroNIDAZOLE IV 500 mg/100 ml 0 MG/0 ML BAG ONE (15:22)
[2018-11-13] MEDS ORDERED: Propofol 10 mg/ml Inj (20 ML) ONE (15:25)
[2018-11-13] MEDS ORDERED: Iohexol 240 (50 ml) ONE (15:30)
--- NOTE | 2018-11-13 15:57 | PCM.SURG1 ---
Surgeon's Initial Post Op Note - Surgeon's Notes Surgeon: Dr. Blank Cartographic Drafter: Dr. Bennett PGY3 Type of Anesthesia: General Endo Pre-Operative Diagnosis: ESRD on HD; perineal wound Operative Findings: see dictation Post-Operative Diagnosis: same Operation Performed: ultrasound-guided right subclavian permacath placement under fluoroscopy; debridement of perineal wound Specimen/Specimens Removed: none Estimated Blood Loss: EBL {In ML}: 10 Blood Products Given: N/A Drains Used: No Drains Post-Op Condition: Good Date of Surgery/Procedure: 11/13/18 Time of Surgery/Procedure: 16:00
--- NOTE | 2018-11-13 16:18 | RAD ---
Date of service: 11/13/2018 HISTORY: permacath placement COMPARISON: 11/13/2018. FINDINGS: There is stable position of the tracheostomy tube. The right PermCath terminates in the right atrium LUNGS: There are low lung volumes. There is mild pulmonary venous congestion. PLEURA: No pleural effusions or pneumothorax. CARDIOVASCULAR: Mild cardiomegaly with prominent central vasculature. No aortic atherosclerotic calcifications present. OSSEOUS STRUCTURES: Within normal limits for the patient's age. VISUALIZED UPPER ABDOMEN: Normal. OTHER FINDINGS: None. IMPRESSION: Right PermCath terminates in the right atrium. Stable position of the tracheostomy tube. Mild cardiomegaly and pulmonary venous congestion.
[2018-11-13] MEDS: Epoetin Alfa 10,000 unit/ml Dialysis IV SCH (18:18)
[2018-11-13] MEDS: Micafungin 100 MG in Dextrose 5% In Water 100 ML IV SCH (21:00)
[2018-11-14] MEDS: metroNIDAZOLE IV 500 mg/100 ml 500 MG/100 ML BAG IVPB SCH ×3 (01:00→17:00)
--- NOTE | 2018-11-14 01:04 | OP ---
PROCEDURE DATE: 11/13/2018 PREOPERATIVE DIAGNOSIS: Renal failure. POSTOPERATIVE DIAGNOSIS: Renal failure. PROCEDURE CARRIED OUT: Placement of Perm-A-Cath in the right subclavian vein with C-arm fluoroscopy. SURGEON: Galindo Blank Jr., MD ELECTRICAL SUBCONTRACTOR: Estee Bennett DO ANESTHESIOLOGIST: hSonna Sheehan CRNA INDICATION: The patient is a 72-year-old woman with renal insufficiency, multiple other problems, tracheostomy, feeding tube, who requires a new dialysis access. OPERATIVE FINDINGS: Because of the tracheostomy, we did not use the jugular vein, we aimed for the subclavian on the right side. Using anatomic landmarks, we punctured with a micropuncture needle and placed the catheter successfully. This was flushed with heparinized saline with good return. After that have been done, we then turned our attention to the peroneum. There were questions as to whether the patient had infection. We debrided the skin and subcutaneous tissues, but no pus was found as such. This will be reviewed with the patient's family as there was no explicit consent to the peroneal debridement; however, it was reasonable given the circumstances. Galindo Blank Jr., MD
[2018-11-14] MEDS: (Novolog) Insulin Aspart, Recombinant 100 u/ml 10 ml vial SC SCH ×4 (01:20→18:01)
[2018-11-14] MEDS: Pantoprazole 40 mg Susp UD PO SCH (05:51)
[2018-11-14] MEDS: Levothyroxine 50 MCG TAB PO SCH (05:51)
[2018-11-14 06:11] LABS: BASO # 0.1 K/uL (0.0-0.2); BASO % 0.7 % (0.0-2.0); EOS # 0.5 K/uL (0.0-0.7); HEMOGLOBIN 8.8 g/dL (11.0-16.0); LYMPH % 11.3 % (20.0-40.0); MEAN CELL VOLUME 92.7 fL (81.0-99.0); MEAN CORPUSCULAR HGB CONC 30.3 g/dL (33.0-37.0); MEAN PLATELET VOLUME 9.6 fL (7.2-11.7); MONO # 0.8 K/uL (0.0-0.8); MONO % 9.4 % (0.0-10.0); NEUT # 6.3 K/uL (1.8-7.0); NEUT % 72.6 % (50.0-75.0); NRBC % 0.2 % (0.0-2.0); RBC 3.15 Mil/uL (3.80-5.20); RED CELL DISTRIBUTION WIDTH 21.3 % (11.5-14.5); WHITE BLOOD COUNT 8.7 K/uL (4.8-10.8)
[2018-11-14 06:25] LABS: ALB/GLOB RATIO 1.1 (1.0-2.1); CALCIUM 7.1 mg/dl (8.6-10.4)
--- NOTE | 2018-11-14 07:08 | CP.PCM.PN ---
Subjective - Date & Time of Evaluation Date of Evaluation: 11/13/18 Time of Evaluation: 20:10 - Subjective Subjective: Patient seen and examined at bedside Unresponsive to commands S/P Perma cath replacement CCU Objective - Vital Signs / Intake & Output Vital Signs (Last 4 hours): Vital Signs Pulse Resp BP Pulse Ox 11/13/18 13:23 93 H 22 95/71 L 82 L 11/13/18 12:06 86 15 112/63 100 11/13/18 11:06 88 19 125/68 99 11/13/18 10:06 86 21 122/69 99 Intake and Output (Last 8hrs): Intake & Output 11/12/18 11/13/18 11/13/18 22:59 06:59 14:59 Intake Total 590 310 430 Balance 590 310 430 Weight 206 lb Intake: Intake, IV Amount 200 200 Left Internal Jugular 200 left trialysis IJ 200 Tube Feeding 240 260 230 Other 150 50 0 Other: # Bowel Movements 1 0 1 - Physical Exam Head: Positive for: Atraumatic, Normocephalic Extroacular Muscles: Positive for: EOMI (dropping eyelid left) Conjunctiva: Positive for: Normal Mouth: Positive for: Dry Pharnyx: Positive for: ERYTHEMA (erythemia around lips) Neck: Positive for: Other (tracheostomy in place with vent, trialysis cath on left side neck area ) Respiratory/Chest: Positive for: Decreased Breath Sounds, Other (intubated ). Negative for: Respiratory Distress, Accessory Muscle Use, Tachypneic Cardiovascular: Positive for: Regular Rate and Rhythm, Normal S1, S2 Abdomen: Positive for: Normal Bowel Sounds, Other (PEG tube in place ). Negative for: Tenderness, Distention, Rebound, Guarding Back: Positive for: Decubitus Ulcer (unstagable) Upper Extremity: Positive for: Normal Inspection. Negative for: Cyanosis, Edema Lower Extremity: Positive for: Normal Inspection. Negative for: Edema Neurological: Negative for: GCS=15, CN II-XII Intact, Speech Normal Skin: Positive for: Warm, Dry, Normal Color Psychiatric: Negative for: Alert, Oriented x 3, Normal Insight, Normal Concentration Objective - Vital Signs/Intake and Output Vital Signs (last 24 hours): Temp Pulse Resp BP Pulse Ox 99.4 F 76 16 91/57 L 100 11/14/18 04:00 11/14/18 06:11 11/14/18 05:41 11/14/18 06:11 11/14/18 06:11 Intake and Output: 11/14/18 11/14/18 06:59 18:59 Intake Total 720 Balance 720 - Medications Medications: Current Medications Acetaminophen (Tylenol 650mg/20.3ml Solution Ud) 650 mg PO Q6 PRN PRN Reason: pain+fever Last Admin: 11/12/18 17:07 Dose: 650 mg Amlodipine Besylate (Norvasc) 5 mg PO DAILY [facility] Last Admin: 11/13/18 09:02 Dose: 5 mg Aspirin (Aspirin Chewable) 81 mg PO DAILY [facility] Last Admin: 11/13/18 10:58 Dose: 81 mg Dextrose (Dextrose 50% Inj) 0 ml IV STAT PRN; Protocol PRN Reason: Hypoglycemia Protocol Dextrose (Glutose 15) 0 gm PO ONCE PRN; Protocol PRN Reason: Hypoglycemia Protocol Epoetin Dedrick (Procrit) 10,000 unit IV TTS [facility] Last Admin: 11/13/18 18:18 Dose: 10,000 unit Glucagon (Glucagen Diagnostic Kit) 0 mg IM STAT PRN; Protocol PRN Reason: Hypoglycemia Protocol Heparin Sodium (Porcine) (Heparin) 5,000 units SC Q8 [facility] Last Admin: 11/14/18 05:51 Dose: 5,000 units Meropenem 500 mg/ Sodium (Chloride) 100 mls @ 100 mls/hr IVPB DAILY [facility]; Protocol Last Admin: 11/13/18 09:10 Dose: 100 mls/hr Micafungin Sodium 100 mg/ (Dextrose) 100 mls @ 100 mls/hr IV Q24H [facility]; Protocol Last Admin: 11/13/18 21:00 Dose: 100 mls/hr Metronidazole (Flagyl) 500 mg in 100 mls @ 100 mls/hr IVPB Q8H [facility]; Protocol Last Admin: 11/14/18 01:00 Dose: 100 mls/hr Dextrose (Dextrose 5% In Water 1000 Ml) 1,000 mls @ 0 mls/hr IV .Q0M PRN; Protocol PRN Reason: Hypoglycemia Protocol Insulin Aspart (Novolog) 0 unit SC Q6H [facility]; Protocol Last Admin: 11/14/18 05:51 Dose: 4 u Levetiracetam (Keppra) 1,000 mg PO BID [facility] Last Admin: 11/13/18 19:24 Dose: 1,000 mg Levothyroxine Sodium (Synthroid) 50 mcg PO 0600 [facility] Last Admin: 11/14/18 05:51 Dose: 50 mcg Nystatin (Nystop Topical Powder) 1 applic TOP BID [facility] Last Admin: 11/13/18 17:01 Dose: 1 applic Pantoprazole Sodium (Protonix Susp) 40 mg PO 0600 [facility] Last Admin: 11/14/18 05:51 Dose: 40 mg Rosuvastatin Calcium (Crestor) 10 mg PO HS [facility] Last Admin: 11/13/18 22:06 Dose: 10 mg Saccharomyces Boulardii (Florastor) 250 mg PO TID [facility] Last Admin: 11/13/18 19:26 Dose: 250 mg Vitamin A (Vitamin A & D Oint Ud Foilpak) 0.5 ea TOP Q4 PRN PRN Reason: Dry mouth Stop: 11/16/18 08:31 Last Admin: 11/13/18 09:13 Dose: 0.5 ea - Labs Labs: 11/14/18 06:00 11/14/18 06:00 PT 14.3 SECONDS (9.7-12.2) H 11/05/18 05:52 INR 1.3 11/05/18 05:52 APTT 43 SECONDS (21-34) H 11/05/18 05:52 Assessment and Plan - Assessment and Plan (Free Text) Assessment: Patient is a 72 year old female with PMHx of CKD, CHF, CAD s/p stents, pituitary adenoma a/p resection, DM, who was admitted for respiratory and cardiac arrest s/p permacath placement and AVF on 10/05; possible AMS due to anoxic brain injury, now on HD MWF, tracheostomy on 10/18/17, PEG tube placement 10/23/18. Patient became hypotensive overnight and upgraded to ICU. Permacath removed by surgery on 10/30. A trialysis catheter inserted but dialysis reported the line was not function. A IJ central line inserted for dialysis access. Pt had a LP yesterday (11/05) to r/o meningitis. Pt continues to have diarrhea, feeds changed to Glucerna. The left IJ catheter inserted 11/01 for dialysis was repositioned yesterday due to poor blood return. Patients family made decision to make patient DNR (11/08) after long discussion regarding goals of care. Patient remains intubated and patients family still remains without decision regarding terminal extubation. Patient continues to have diarrhea; rectal tube remains in place. Patient to go to OR today for permacath placement for dialysis. Plan: Neuro - Intubated, agitated - No sedation - continue Keppra and valproate as per neuro - Lumbar puncture 11/05: WBC 1.0, Glucose 129, RBC 0, Total protein 56 - CSF - negative for herpes I&II, HIV, West Nile, VDRL - f/u Neuro recs Cardiac - Hypertension, improved - continue Norvasc 5mg daily - Echo 11/01: Left Ventricle systolic function is normal; EF is 55-60%; hypertensive heart disease; diastolic dysfunction; no AR, MR, pulmonary hypertension; trace to mild tricuspid regurgitation. - continue to monitor vitals - continue Crestor 10mg, ASA 81mg Pulm - Intubated, current vent settings PRVC 14/450/5/35 - Pressure support trials - CXR 11/08: No acute infiltrate pleural effusion identified GI - PEG tube in place - Tube feeds changed to Glucerna at rate of 20ml/hr due to diarrhea - rectal tube in place - protonix ppx - CT abdomen/pelvis 10/30: fluid and gas filled distended rectum versus perirectal abscess. Evidence of anastomotic bowel suture material and/or rectal tube/packing material. - per surgery, no intervention at this time Renal - Dialysis today after OR - HD schedule: [facility] - OR today for permacath placement for dialysis - continue Procrit Endo - Hx of Hypothyroidism, continue levothyroxine 50mg - Hx of DM, continue ISS - insulin held on 11/12 due to hypoglycemia - Accuchecks Q6H Heme - H/H 9.2.7 - monitor CBC ID - Febrile, Tmax 100.6F - WBC 8.3 today, continue to monitor - f/u stool cx, blood cx, urine cx - f/u c.difficle toxin - continue Abx: Meropenem, Flagyl, Vanco - 10/30 Tracheostomy site, sputum cx positive: Romina Albicans - continue Micafungin 100mg - Nystatin powder for fungal rash on chest - Decubitus Ulcer, unstageable; wound care following - Consult Surgery to re-evaluate perirectal abscess following ceretec scan results - surgery - nothing to do at this point - ESR (+) 99 (2/5) - CRP (+) 155.70 (2/5) - f/u ID recs Rheum - JERRY negative (2/5) PPx - Protonix for GI ppx - DVT ppx: SCDs, Heparin SC - Tylenol PRN for fever - Hypoglycemic protocol PRN
[2018-11-14] MEDS: Meropenem 500 MG in Sodium Chloride 0.9% 100 ML IVPB SCH (09:16)
[2018-11-14] MEDS: Saccharomyces Boulardi 250 mg Cap PO SCH ×3 (09:17→17:08)
[2018-11-14] MEDS: Vitamins A & D Oint UD Foilpak TOP PRN (09:17)
[2018-11-14] MEDS: levETIRAcetam 100 mg/ml (5ml) Oral Syringe PO SCH ×2 (09:17→17:08)
--- NOTE | 2018-11-14 11:31 | PN ---
DATE: 11/14/2018 TIME OF EVALUATION: 07:30 a.m. NEUROLOGICAL PROBLEM: Anoxic encephalopathy with seizures. PHYSICAL EXAMINATION: VITAL SIGNS: Her blood pressure 126/60, mean arterial pressure of 85, respiratory rate 18, and temperature 99.4 rectal. EXTREMITIES: The patient is obtunded, is moving all four extremities, more arm than her legs. Lot of petechial hemorrhage is seen all over her face, lips, upper part of the chest, and arms. From neuro point of view, the patient is on Keppra for her seizure prophylaxis. The patient's condition, infectious disease and the cardiac problem should be ruled out. Overall prognosis is poor. Blu Yost MD
--- NOTE | 2018-11-14 11:38 | CP.CCUPN ---
CCU Subjective - Physician Review Subjective (Free Text): Patient seen and examined at bedside today. Patient remains intubated. Patient is not on sedation. Patient continues to flail arms around without purpose. ROS is unobtainable due to patients mental status. CCU Objective - Vital Signs / Intake & Output Vital Signs (Last 4 hours): Vital Signs Temp Pulse Resp BP Pulse Ox 11/14/18 08:00 98.4 F 11/14/18 07:40 88 16 131/59 L 100 Intake and Output (Last 8hrs): Intake & Output 11/13/18 11/14/18 11/14/18 22:59 06:59 14:59 Intake Total 470 600 70 Balance 470 600 70 Weight 207 lb 6.4 oz Intake: IV 350 Intake, IV Amount 100 200 Left Hand 100 200 Tube Feeding 20 200 70 Other 200 Other: # Voids Urine, Voided 0 0 # Bowel Movements 1 1 1 - Physical Exam Head: Positive for: Atraumatic, Normocephalic Extroacular Muscles: Positive for: EOMI (dropping eyelid left) Conjunctiva: Positive for: Normal Mouth: Positive for: Dry Pharnyx: Positive for: ERYTHEMA (erythemia around lips, petechiae around face ) Neck: Positive for: Other (tracheostomy in place with vent, triaylsis cathether on left, R IJ permacath) Respiratory/Chest: Positive for: Decreased Breath Sounds, Other (intubated ). Negative for: Respiratory Distress, Accessory Muscle Use, Tachypneic Cardiovascular: Positive for: Regular Rate and Rhythm, Normal S1, S2 Abdomen: Positive for: Normal Bowel Sounds, Other (PEG tube in place ). Negative for: Tenderness, Distention, Rebound, Guarding Back: Positive for: Decubitus Ulcer (unstagable) Upper Extremity: Positive for: Normal Inspection. Negative for: Cyanosis, Edema Lower Extremity: Positive for: Normal Inspection. Negative for: Edema Neurological: Negative for: GCS=15, CN II-XII Intact, Speech Normal Skin: Positive for: Warm, Dry, Normal Color Psychiatric: Negative for: Alert, Oriented x 3, Normal Insight, Normal Concentration - Medications Active Medications: Active Medications Generic Name Dose Route Start Last Admin Trade Name Freq PRN Reason Stop Dose Admin Acetaminophen 650 mg 10/25/18 03:30 11/12/18 17:07 Tylenol 650mg/20.3ml Solution Ud PO 650 mg Q6 PRN Administration pain+fever Amlodipine Besylate 5 mg 11/07/18 11:00 11/14/18 09:17 Norvasc PO 5 mg DAILY JOCELYN Administration Aspirin 81 mg 10/08/18 10:00 11/14/18 09:18 Aspirin Chewable PO 81 mg DAILY JOCELYN Administration Dextrose 0 ml 11/12/18 12:28 Dextrose 50% Inj IV STAT PRN Hypoglycemia Protocol Protocol Dextrose 0 gm 11/12/18 12:28 Glutose 15 PO ONCE PRN Hypoglycemia Protocol Protocol Epoetin Dedrick 10,000 unit 11/01/18 14:00 11/13/18 18:18 Procrit IV 10,000 unit TTS JOCELYN Administration Glucagon 0 mg 11/12/18 12:28 Glucagen Diagnostic Kit IM STAT PRN Hypoglycemia Protocol Protocol Heparin Sodium (Porcine) 5,000 units 11/14/18 06:00 11/14/18 05:51 Heparin SC 5,000 units Q8 JOCELYN Administration Meropenem 500 mg/ Sodium 100 mls @ 100 mls/hr 11/10/18 10:00 11/14/18 09:16 Chloride IVPB 100 mls/hr DAILY JOCELYN Administration Protocol Micafungin Sodium 100 mg/ 100 mls @ 100 mls/hr 11/10/18 19:00 11/13/18 21:00 Dextrose IV 100 mls/hr Q24H JOCELYN Administration Protocol Metronidazole 500 mg in 100 mls @ 100 mls/hr 11/12/18 08:30 11/14/18 07:39 Flagyl IVPB 100 mls/hr Q8H JOCELYN Administration Protocol Dextrose 1,000 mls @ 0 mls/hr 11/12/18 12:28 Dextrose 5% In Water 1000 Ml IV .Q0M PRN Hypoglycemia Protocol Protocol Per Protocol Insulin Aspart 0 unit 10/31/18 12:00 11/14/18 05:51 Novolog SC 4 u Q6H JOCELYN Administration Protocol Levetiracetam 1,000 mg 10/28/18 18:00 11/14/18 09:17 Keppra PO 1,000 mg BID JOCELYN Administration Levothyroxine Sodium 50 mcg 09/29/18 08:00 11/14/18 05:51 Synthroid PO 50 mcg 0600 JOCELYN Administration Nystatin 1 applic 11/12/18 10:00 11/14/18 09:19 Nystop Topical Powder TOP 1 applic BID JOCELYN Administration Pantoprazole Sodium 40 mg 10/09/18 06:00 11/14/18 05:51 Protonix Susp PO 40 mg 0600 JOCELYN Administration Rosuvastatin Calcium 10 mg 09/30/18 22:00 11/13/18 22:06 Crestor PO 10 mg HS JOCELYN Administration Saccharomyces Boulardii 250 mg 11/01/18 10:00 11/14/18 09:17 Florastor PO 250 mg TID JOCELYN Administration Vitamin A 0.5 ea 11/13/18 08:30 11/14/18 09:17 Vitamin A & D Oint Ud Foilpak TOP 11/16/18 08:31 0.5 ea Q4 PRN Administration Dry mouth - Patient Studies Lab Studies: Microbiology Studies 11/12/18 10:47 Blood Culture - Preliminary Blood NO GROWTH AFTER 48 HOURS 11/12/18 10:36 Urine Culture - Final Urine,Catheterized No Growth (<1,000 CFU/ML) 11/05/18 10:54 Mycobacterial Culture - Preliminary Other: Please Indicate Lab Studies 11/14/18 11/14/18 11/14/18 Range/Units 06:00 06:00 05:15 WBC 8.7 (4.8-10.8) K/uL RBC 3.15 L (3.80-5.20) Mil/uL Hgb 8.8 L (11.0-16.0) g/dL Hct 29.2 L (34.0-47.0) % MCV 92.7 (81.0-99.0) fL MCH 28.0 (27.0-31.0) pg MCHC 30.3 L (33.0-37.0) g/dL RDW 21.3 H (11.5-14.5) % Plt Count 167 (130-400) K/uL MPV 9.6 (7.2-11.7) fL Neut % (Auto) 72.6 (50.0-75.0) % Lymph % (Auto) 11.3 L (20.0-40.0) % Harlan % (Auto) 9.4 (0.0-10.0) % Eos % (Auto) 6.0 H (0.0-4.0) % Baso % (Auto) 0.7 (0.0-2.0) % Neut # (Auto) 6.3 (1.8-7.0) K/uL Lymph # (Auto) 1.0 (1.0-4.3) K/uL Harlan # (Auto) 0.8 (0.0-0.8) K/uL Eos # (Auto) 0.5 (0.0-0.7) K/uL Baso # (Auto) 0.1 (0.0-0.2) K/uL Sodium 137 (132-148) mmol/L Potassium 4.5 (3.6-5.2) mmol/L Chloride 101 (98-107) mmol/L Carbon Dioxide 23 (22-30) mmol/L Anion Gap 17 (10-20) BUN 52 H (7-17) mg/dL Creatinine 3.3 H (0.7-1.2) mg/dL Est GFR ( Amer) 17 Est GFR (Non-Af Amer) 14 POC Glucose (mg/dL) 202 H (65-110) mg/dL Random Glucose 169 H D (65-105) mg/dL Calcium 7.1 L (8.6-10.4) mg/dl Phosphorus 7.1 H (2.5-4.5) mg/dL Magnesium 1.9 (1.6-2.3) mg/dL Total Bilirubin 0.5 (0.2-1.3) mg/dL AST 41 H (14-36) U/L ALT 18 (9-52) U/L Alkaline Phosphatase 146 H (38-126) U/L Total Protein 5.9 L (6.3-8.3) g/dL Albumin 3.0 L (3.5-5.0) g/dL Globulin 2.9 (2.2-3.9) gm/dL Albumin/Globulin Ratio 1.1 (1.0-2.1) CSF West Nile IgG Ab (<1.30) index CSF West Nile IgM Ab (<0.90) index Stool Leukocytes, Qual (NEGATIVE) 11/14/18 11/13/18 11/13/18 Range/Units 00:15 17:41 11:09 WBC (4.8-10.8) K/uL RBC (3.80-5.20) Mil/uL Hgb (11.0-16.0) g/dL Hct (34.0-47.0) % MCV (81.0-99.0) fL MCH (27.0-31.0) pg MCHC (33.0-37.0) g/dL RDW (11.5-14.5) % Plt Count (130-400) K/uL MPV (7.2-11.7) fL Neut % (Auto) (50.0-75.0) % Lymph % (Auto) (20.0-40.0) % Harlan % (Auto) (0.0-10.0) % Eos % (Auto) (0.0-4.0) % Baso % (Auto) (0.0-2.0) % Neut # (Auto) (1.8-7.0) K/uL Lymph # (Auto) (1.0-4.3) K/uL Harlan # (Auto) (0.0-0.8) K/uL Eos # (Auto) (0.0-0.7) K/uL Baso # (Auto) (0.0-0.2) K/uL Sodium (132-148) mmol/L Potassium (3.6-5.2) mmol/L Chloride (98-107) mmol/L Carbon Dioxide (22-30) mmol/L Anion Gap (10-20) BUN (7-17) mg/dL Creatinine (0.7-1.2) mg/dL Est GFR ( Amer) Est GFR (Non-Af Amer) POC Glucose (mg/dL) 161 H 134 H 163 H (65-110) mg/dL Random Glucose (65-105) mg/dL Calcium (8.6-10.4) mg/dl Phosphorus (2.5-4.5) mg/dL Magnesium (1.6-2.3) mg/dL Total Bilirubin (0.2-1.3) mg/dL AST (14-36) U/L ALT (9-52) U/L Alkaline Phosphatase (38-126) U/L Total Protein (6.3-8.3) g/dL Albumin (3.5-5.0) g/dL Globulin (2.2-3.9) gm/dL Albumin/Globulin Ratio (1.0-2.1) CSF West Nile IgG Ab (<1.30) index CSF West Nile IgM Ab (<0.90) index Stool Leukocytes, Qual (NEGATIVE) 11/13/18 11/05/18 Range/Units 00:25 10:54 WBC (4.8-10.8) K/uL RBC (3.80-5.20) Mil/uL Hgb (11.0-16.0) g/dL Hct (34.0-47.0) % MCV (81.0-99.0) fL MCH (27.0-31.0) pg MCHC (33.0-37.0) g/dL RDW (11.5-14.5) % Plt Count (130-400) K/uL MPV (7.2-11.7) fL Neut % (Auto) (50.0-75.0) % Lymph % (Auto) (20.0-40.0) % Harlan % (Auto) (0.0-10.0) % Eos % (Auto) (0.0-4.0) % Baso % (Auto) (0.0-2.0) % Neut # (Auto) (1.8-7.0) K/uL Lymph # (Auto) (1.0-4.3) K/uL Harlan # (Auto) (0.0-0.8) K/uL Eos # (Auto) (0.0-0.7) K/uL Baso # (Auto) (0.0-0.2) K/uL Sodium (132-148) mmol/L Potassium (3.6-5.2) mmol/L Chloride (98-107) mmol/L Carbon Dioxide (22-30) mmol/L Anion Gap (10-20) BUN (7-17) mg/dL Creatinine (0.7-1.2) mg/dL Est GFR ( Amer) Est GFR (Non-Af Amer) POC Glucose (mg/dL) (65-110) mg/dL Random Glucose (65-105) mg/dL Calcium (8.6-10.4) mg/dl Phosphorus (2.5-4.5) mg/dL Magnesium (1.6-2.3) mg/dL Total Bilirubin (0.2-1.3) mg/dL AST (14-36) U/L ALT (9-52) U/L Alkaline Phosphatase (38-126) U/L Total Protein (6.3-8.3) g/dL Albumin (3.5-5.0) g/dL Globulin (2.2-3.9) gm/dL Albumin/Globulin Ratio (1.0-2.1) CSF West Nile IgG Ab <1.30 (<1.30) index CSF West Nile IgM Ab <0.90 (<0.90) index Stool Leukocytes, Qual Negative (NEGATIVE) Laboratory Results - last 24 hr 11/05/18 11/13/18 11/13/18 10:54 00:25 11:09 WBC RBC Hgb Hct MCV MCH MCHC RDW Plt Count MPV Neut % (Auto) Lymph % (Auto) Harlan % (Auto) Eos % (Auto) Baso % (Auto) Neut # (Auto) Lymph # (Auto) Harlan # (Auto) Eos # (Auto) Baso # (Auto) Sodium Potassium Chloride Carbon Dioxide Anion Gap BUN Creatinine Est GFR ( Amer) Est GFR (Non-Af Amer) POC Glucose (mg/dL) 163 H Random Glucose Calcium Phosphorus Magnesium Total Bilirubin AST ALT Alkaline Phosphatase Total Protein Albumin Globulin Albumin/Globulin Ratio CSF West Nile IgG Ab <1.30 CSF West Nile IgM Ab <0.90 Stool Leukocytes, Qual Negative 11/13/18 11/14/18 11/14/18 17:41 00:15 05:15 WBC RBC Hgb Hct MCV MCH MCHC RDW Plt Count MPV Neut % (Auto) Lymph % (Auto) Harlan % (Auto) Eos % (Auto) Baso % (Auto) Neut # (Auto) Lymph # (Auto) Harlan # (Auto) Eos # (Auto) Baso # (Auto) Sodium Potassium Chloride Carbon Dioxide Anion Gap BUN Creatinine Est GFR ( Amer) Est GFR (Non-Af Amer) POC Glucose (mg/dL) 134 H 161 H 202 H Random Glucose Calcium Phosphorus Magnesium Total Bilirubin AST ALT Alkaline Phosphatase Total Protein Albumin Globulin Albumin/Globulin Ratio CSF West Nile IgG Ab CSF West Nile IgM Ab Stool Leukocytes, Qual 11/14/18 11/14/18 06:00 06:00 WBC 8.7 RBC 3.15 L Hgb 8.8 L Hct 29.2 L MCV 92.7 MCH 28.0 MCHC 30.3 L RDW 21.3 H Plt Count 167 MPV 9.6 Neut % (Auto) 72.6 Lymph % (Auto) 11.3 L Harlan % (Auto) 9.4 Eos % (Auto) 6.0 H Baso % (Auto) 0.7 Neut # (Auto) 6.3 Lymph # (Auto) 1.0 Harlan # (Auto) 0.8 Eos # (Auto) 0.5 Baso # (Auto) 0.1 Sodium 137 Potassium 4.5 Chloride 101 Carbon Dioxide 23 Anion Gap 17 BUN 52 H Creatinine 3.3 H Est GFR ( Amer) 17 Est GFR (Non-Af Amer) 14 POC Glucose (mg/dL) Random Glucose 169 H D Calcium 7.1 L Phosphorus 7.1 H Magnesium 1.9 Total Bilirubin 0.5 AST 41 H ALT 18 Alkaline Phosphatase 146 H Total Protein 5.9 L Albumin 3.0 L Globulin 2.9 Albumin/Globulin Ratio 1.1 CSF West Nile IgG Ab CSF West Nile IgM Ab Stool Leukocytes, Qual Radiology Impressions: Radiology Impressions Chest X-Ray 11/13/18 07:00 IMPRESSION: No interval pathology noted. Other findings as above. Chest X-Ray 11/13/18 15:57 IMPRESSION: Right PermCath terminates in the right atrium. Stable position of the tracheostomy tube. Mild cardiomegaly and pulmonary venous congestion. Fingerstick Blood Sugar Results: 202 Review of Systems - Review of Systems Systems not reviewed;Unavailable: Intubated Critical Care Progress Note - Ventilator Checklist Head of Bed 30 Degrees: Yes Daily Sedation Vacation: No Daily Assessment of Readiness to Wean: No Daily Spontaneous Breathing Trial: No PUD Prophalyxis: Yes DVT Prophylaxis: Yes - Vent Settings MODE:: PRVC TIDAL VOLUME:: 450 RESP RATE:: 14 FIO2:: 35 PEEP:: 5 - Extremities/Vascular Does the Patient have a Central Venous Catheter?: No Does the Patient have a Rodriguez Catheter?: Yes Does the Patient need a Rodriguez Catheter?: Yes Catheter Insertion Criteria: Need for accurate measurement of output in critica lly ill patient - Prophylaxis GI Prophylaxis GI: PPI - Prophylaxis DVT Prophylaxis DVT: Heparin SQ Assessment/Plan - Assessment and Plan (Free Text) Assessment: Patient is a 72 year old female with PMHx of CKD, CHF, CAD s/p stents, pituitary adenoma a/p resection, DM, who was admitted for respiratory and cardiac arrest s/p permacath placement and AVF on 10/05; possible AMS due to anoxic brain injury, now on HD MWF, tracheostomy on 10/18/17, PEG tube placement 10/23/18. Patient became hypotensive overnight and upgraded to ICU. Permacath removed by surgery on 10/30. A trialysis catheter inserted but dialysis reported the line was not function. A IJ central line inserted for dialysis access. Pt had a LP yesterday (11/05) to r/o meningitis. Pt continues to have diarrhea, feeds changed to Glucerna. The left IJ catheter inserted 11/01 for dialysis was repositioned yesterday due to poor blood return. Patients family made decision to make patient DNR (11/08) after long discussion regarding goals of care. Patient remains intubated and patients family still remains without decision regarding terminal extubation. Patient continues to have diarrhea; rectal tube remains in place. Plan: Neuro - Intubated, agitated - No sedation - continue Keppra per neuro - Lumbar puncture 11/05: WBC 1.0, Glucose 129, RBC 0, Total protein 56 - CSF- negative for herpes I & II, HIV, West Nile, VDRL - f/u Neuro recs Cardiac - Hypertension, improved - continue Norvasc 5mg daily - Echo 11/01: Left Ventricle systolic function is normal; EF is 55-60%; hypertensive heart disease; diastolic dysfunction; no AR, MR, pulmonary hypertension; trace to mild tricuspid regurgitation. - continue to monitor vitals - continue Crestor 10mg, ASA 81mg Pulm - Intubated, current vent settings PRVC 14/450/5/35 - Pressure support trials - CXR 11/13: mild cardiomegaly and pulmonary venous congestion GI - PEG tube in place - Tube feeds changed to Glucerna at rate of 20ml/hr due to diarrhea - rectal tube in place - protonix ppx - CT abdomen/pelvis 10/30: fluid and gas filled distended rectum versus perirectal abscess. Evidence of anastomotic bowel suture material and/or rectal tube/packing material Renal - HD schedule: TTHS - R IJ Permacath placement 11/13 for dialysis - continue Procrit Endo - Hx of Hypothyroidism, continue levothyroxine 50mg - Hx of DM, continue ISS high - insulin held on 11/12 due to hypoglycemia - Accuchecks Q6H Heme - H/H 8.8/29.2 - monitor CBC ID - Afebrile, Tmax 99.2F - WBC 8.7 today, continue to monitor - f/u stool cx, blood c, urine cx - c. diff toxin negative - continue Abx: Meropenem, Flagyl - d/c Vanco 11/14/18 - 10/30 Tracheostomy site, sputum cx positive: Romina Albicans - continue Micafungin 100mg; f/u trach site asp 11/14 - Nystatin powder for fungal rash on chest - Sacral decubitus Ulcer, unstageable; wound care following - Surgery debrided perineal pressure wound in OR 11/13 - ESR (+) 99 (2/5) - CRP (+) 155.70 (2/5) - f/u ID recs Rheum - JERRY negative (11/06) PPx - Protonix for GI ppx - DVT ppx: SCDs, Heparin SC - Tylenol PRN for fever - Hypoglycemic protocol PRN
--- NOTE | 2018-11-14 14:03 | CP.PCM.PN ---
Subjective - Date & Time of Evaluation Date of Evaluation: 11/14/18 Time of Evaluation: 14:01 - Subjective Subjective: on respirator new permcath tolerating HD unresponsive Objective - Vital Signs/Intake and Output Vital Signs (last 24 hours): Temp Pulse Resp BP Pulse Ox 98.4 F 88 16 131/59 L 100 11/14/18 08:00 11/14/18 07:40 11/14/18 07:40 11/14/18 07:40 11/14/18 07:40 Intake and Output: 11/14/18 11/14/18 06:59 18:59 Intake Total 720 70 Balance 720 70 - Medications Medications: Current Medications Acetaminophen (Tylenol 650mg/20.3ml Solution Ud) 650 mg PO Q6 PRN PRN Reason: pain+fever Last Admin: 11/12/18 17:07 Dose: 650 mg Amlodipine Besylate (Norvasc) 5 mg PO DAILY [facility] Last Admin: 11/14/18 09:17 Dose: 5 mg Aspirin (Aspirin Chewable) 81 mg PO DAILY [facility] Last Admin: 11/14/18 09:18 Dose: 81 mg Dextrose (Dextrose 50% Inj) 0 ml IV STAT PRN; Protocol PRN Reason: Hypoglycemia Protocol Dextrose (Glutose 15) 0 gm PO ONCE PRN; Protocol PRN Reason: Hypoglycemia Protocol Epoetin Dedrick (Procrit) 10,000 unit IV TTS [facility] Last Admin: 11/13/18 18:18 Dose: 10,000 unit Glucagon (Glucagen Diagnostic Kit) 0 mg IM STAT PRN; Protocol PRN Reason: Hypoglycemia Protocol Heparin Sodium (Porcine) (Heparin) 5,000 units SC Q8 JOCELYN Last Admin: 11/14/18 13:32 Dose: 5,000 units Meropenem 500 mg/ Sodium (Chloride) 100 mls @ 100 mls/hr IVPB DAILY JOCELYN; Protocol Last Admin: 11/14/18 09:16 Dose: 100 mls/hr Micafungin Sodium 100 mg/ (Dextrose) 100 mls @ 100 mls/hr IV Q24H JOCELYN; Protocol Last Admin: 11/13/18 21:00 Dose: 100 mls/hr Metronidazole (Flagyl) 500 mg in 100 mls @ 100 mls/hr IVPB Q8H JOCELYN; Protocol Last Admin: 11/14/18 07:39 Dose: 100 mls/hr Dextrose (Dextrose 5% In Water 1000 Ml) 1,000 mls @ 0 mls/hr IV .Q0M PRN; Protocol PRN Reason: Hypoglycemia Protocol Insulin Aspart (Novolog) 0 unit SC Q6H [facility]; Protocol Last Admin: 11/14/18 11:59 Dose: 2 u Levetiracetam (Keppra) 1,000 mg PO BID [facility] Last Admin: 11/14/18 09:17 Dose: 1,000 mg Levothyroxine Sodium (Synthroid) 50 mcg PO 0600 [facility] Last Admin: 11/14/18 05:51 Dose: 50 mcg Nystatin (Nystop Topical Powder) 1 applic TOP BID [facility] Last Admin: 11/14/18 09:19 Dose: 1 applic Pantoprazole Sodium (Protonix Susp) 40 mg PO 0600 [facility] Last Admin: 11/14/18 05:51 Dose: 40 mg Rosuvastatin Calcium (Crestor) 10 mg PO HS [facility] Last Admin: 11/13/18 22:06 Dose: 10 mg Saccharomyces Boulardii (Florastor) 250 mg PO TID [facility] Last Admin: 11/14/18 13:32 Dose: 250 mg Vitamin A (Vitamin A & D Oint Ud Foilpak) 0.5 ea TOP Q4 PRN PRN Reason: Dry mouth Stop: 11/16/18 08:31 Last Admin: 11/14/18 09:17 Dose: 0.5 ea - Labs Labs: 11/14/18 06:00 11/14/18 06:00 PT 14.3 SECONDS (9.7-12.2) H 11/05/18 05:52 INR 1.3 11/05/18 05:52 APTT 43 SECONDS (21-34) H 11/05/18 05:52 - Constitutional Appears: No Acute Distress, Chronically Ill - Head Exam Additional comments: facial swelling - Respiratory Exam Respiratory Exam: Decreased Breath Sounds, NORMAL BREATHING PATTERN - Cardiovascular Exam Cardiovascular Exam: Tachycardia. absent: Rubs - GI/Abdominal Exam GI & Abdominal Exam: Distended. absent: Guarding - Extremities Exam Extremities Exam: absent: Pedal Edema - Neurological Exam Neurological Exam: absent: Alert, Oriented x3 Assessment and Plan - Assessment and Plan (Free Text) Assessment: has new permcath for HD in am supportive care poor prognosis
--- NOTE | 2018-11-14 14:27 | CP.PCM.PN ---
Subjective - Date & Time of Evaluation Date of Evaluation: 11/14/18 Time of Evaluation: 14:24 - Subjective Subjective: SURGERY NOTE FOR DR. KO 72F seen and examined at bedside. Site of [facility]. Able to be used for dialysis Objective - Vital Signs/Intake and Output Vital Signs (last 24 hours): Temp Pulse Resp BP Pulse Ox 98.4 F 92 H 13 102/49 L 100 11/14/18 08:00 11/14/18 14:02 11/14/18 14:02 11/14/18 14:02 11/14/18 14:02 Intake and Output: 11/14/18 11/14/18 06:59 18:59 Intake Total 720 250 Balance 720 250 - Medications Medications: Current Medications Acetaminophen (Tylenol 650mg/20.3ml Solution Ud) 650 mg PO Q6 PRN PRN Reason: pain+fever Last Admin: 11/12/18 17:07 Dose: 650 mg Amlodipine Besylate (Norvasc) 5 mg PO DAILY [facility] Last Admin: 11/14/18 09:17 Dose: 5 mg Aspirin (Aspirin Chewable) 81 mg PO DAILY [facility] Last Admin: 11/14/18 09:18 Dose: 81 mg Dextrose (Dextrose 50% Inj) 0 ml IV STAT PRN; Protocol PRN Reason: Hypoglycemia Protocol Dextrose (Glutose 15) 0 gm PO ONCE PRN; Protocol PRN Reason: Hypoglycemia Protocol Epoetin Dedrick (Procrit) 10,000 unit IV TTS [facility] Last Admin: 11/13/18 18:18 Dose: 10,000 unit Glucagon (Glucagen Diagnostic Kit) 0 mg IM STAT PRN; Protocol PRN Reason: Hypoglycemia Protocol Heparin Sodium (Porcine) (Heparin) 5,000 units SC Q8 [facility] Last Admin: 11/14/18 13:32 Dose: 5,000 units Meropenem 500 mg/ Sodium (Chloride) 100 mls @ 100 mls/hr IVPB DAILY [facility]; Protocol Last Admin: 11/14/18 09:16 Dose: 100 mls/hr Micafungin Sodium 100 mg/ (Dextrose) 100 mls @ 100 mls/hr IV Q24H [facility]; Protocol Last Admin: 11/13/18 21:00 Dose: 100 mls/hr Metronidazole (Flagyl) 500 mg in 100 mls @ 100 mls/hr IVPB Q8H [facility]; Protocol Last Admin: 11/14/18 07:39 Dose: 100 mls/hr Dextrose (Dextrose 5% In Water 1000 Ml) 1,000 mls @ 0 mls/hr IV .Q0M PRN; Protocol PRN Reason: Hypoglycemia Protocol Insulin Aspart (Novolog) 0 unit SC Q6H [facility]; Protocol Last Admin: 11/14/18 11:59 Dose: 2 u Levetiracetam (Keppra) 1,000 mg PO BID [facility] Last Admin: 11/14/18 09:17 Dose: 1,000 mg Levothyroxine Sodium (Synthroid) 50 mcg PO 0600 [facility] Last Admin: 11/14/18 05:51 Dose: 50 mcg Nystatin (Nystop Topical Powder) 1 applic TOP BID [facility] Last Admin: 11/14/18 09:19 Dose: 1 applic Pantoprazole Sodium (Protonix Susp) 40 mg PO 0600 [facility] Last Admin: 11/14/18 05:51 Dose: 40 mg Rosuvastatin Calcium (Crestor) 10 mg PO HS [facility] Last Admin: 11/13/18 22:06 Dose: 10 mg Saccharomyces Boulardii (Florastor) 250 mg PO TID [facility] Last Admin: 11/14/18 13:32 Dose: 250 mg Sevelamer Carbonate (Renvela) 0.8 gm PEG TIDCC [facility] Vitamin A (Vitamin A & D Oint Ud Foilpak) 0.5 ea TOP Q4 PRN PRN Reason: Dry mouth Stop: 11/16/18 08:31 Last Admin: 11/14/18 09:17 Dose: 0.5 ea - Labs Labs: 11/14/18 06:00 11/14/18 06:00 PT 14.3 SECONDS (9.7-12.2) H 11/05/18 05:52 INR 1.3 11/05/18 05:52 APTT 43 SECONDS (21-34) H 11/05/18 05:52 - Neck Exam Additional comments: right subclavian permacath in place, dressing CDI - Respiratory Exam Respiratory Exam: Clear to Ausculation Bilateral, NORMAL BREATHING PATTERN - Cardiovascular Exam Cardiovascular Exam: REGULAR RHYTHM, +S1, +S2 Assessment and Plan - Assessment and Plan (Free Text) Assessment: 72F s/p right subclavian permacath POD#1 Plan: - No further surgical intervention - Dialysis as needed - ICU management Discussed with Dr. Abhay Holland, PGY3
[2018-11-14] MEDS: Sevelamer Carb 0.8 gm/Packet PEG SCH (17:08)
[2018-11-14] MEDS: Micafungin 100 MG in Dextrose 5% In Water 100 ML IV SCH (18:01)
--- NOTE | 2018-11-14 21:30 | CP.PCM.PN ---
Subjective - Date & Time of Evaluation Date of Evaluation: 11/14/18 Time of Evaluation: 21:29 - Subjective Subjective: Patient still unresponsive. On ventilator. Full support ventilation. Episodes of fever noted. Patient also has a lymphedema, and epithelial skin peeling noted On examination: Vital signs otherwise stable. Currently receiving hemodialysis Labs reviewed Elevated is not will count noted. On multiple antibiotic Patient most likely has a mucositis, secondary to antibiotic associated. Will hold off antibiotic now. Solu-Medrol. Drug reaction likely. We will follow the patient Objective - Vital Signs/Intake and Output Vital Signs (last 24 hours): Temp Pulse Resp BP Pulse Ox 100.3 F H 94 H 18 127/66 100 11/14/18 20:00 11/14/18 21:00 11/14/18 21:00 11/14/18 20:54 11/14/18 21:00 Intake and Output: 11/14/18 11/15/18 18:59 06:59 Intake Total 905 135 Balance 905 135 - Medications Medications: Current Medications Acetaminophen (Tylenol 650mg/20.3ml Solution Ud) 650 mg PO Q6 PRN PRN Reason: pain+fever Last Admin: 11/12/18 17:07 Dose: 650 mg Acyclovir (Zovirax 5% Oint) 1 gm EXT Q3H [facility] Amlodipine Besylate (Norvasc) 5 mg PO DAILY [facility] Last Admin: 11/14/18 09:17 Dose: 5 mg Aspirin (Aspirin Chewable) 81 mg PO DAILY [facility] Last Admin: 11/14/18 09:18 Dose: 81 mg Dextrose (Dextrose 50% Inj) 0 ml IV STAT PRN; Protocol PRN Reason: Hypoglycemia Protocol Dextrose (Glutose 15) 0 gm PO ONCE PRN; Protocol PRN Reason: Hypoglycemia Protocol Epoetin Dedrick (Procrit) 10,000 unit IV TTS [facility] Last Admin: 11/13/18 18:18 Dose: 10,000 unit Glucagon (Glucagen Diagnostic Kit) 0 mg IM STAT PRN; Protocol PRN Reason: Hypoglycemia Protocol Heparin Sodium (Porcine) (Heparin) 5,000 units SC Q8 JOCELYN Last Admin: 11/14/18 13:32 Dose: 5,000 units Meropenem 500 mg/ Sodium (Chloride) 100 mls @ 100 mls/hr IVPB DAILY JOCELYN; Protocol Last Admin: 11/14/18 09:16 Dose: 100 mls/hr Micafungin Sodium 100 mg/ (Dextrose) 100 mls @ 100 mls/hr IV Q24H JOCELYN; Protocol Last Admin: 11/14/18 18:01 Dose: 100 mls/hr Metronidazole (Flagyl) 500 mg in 100 mls @ 100 mls/hr IVPB Q8H JOCELYN; Protocol Last Admin: 11/14/18 17:00 Dose: 100 mls/hr Dextrose (Dextrose 5% In Water 1000 Ml) 1,000 mls @ 0 mls/hr IV .Q0M PRN; Protocol PRN Reason: Hypoglycemia Protocol Insulin Aspart (Novolog) 0 unit SC Q6H JOCELYN; Protocol Last Admin: 11/14/18 18:01 Dose: 6 u Levetiracetam (Keppra) 1,000 mg PO BID [facility] Last Admin: 11/14/18 17:08 Dose: 1,000 mg Levothyroxine Sodium (Synthroid) 50 mcg PO 0600 [facility] Last Admin: 11/14/18 05:51 Dose: 50 mcg Nystatin (Nystop Topical Powder) 1 applic TOP BID [facility] Last Admin: 11/14/18 17:08 Dose: 1 applic Pantoprazole Sodium (Protonix Susp) 40 mg PO 0600 [facility] Last Admin: 11/14/18 05:51 Dose: 40 mg Rosuvastatin Calcium (Crestor) 10 mg PO HS [facility] Last Admin: 11/13/18 22:06 Dose: 10 mg Saccharomyces Boulardii (Florastor) 250 mg PO TID [facility] Last Admin: 11/14/18 17:08 Dose: 250 mg Sevelamer Carbonate (Renvela) 0.8 gm PEG TIDCC [facility] Last Admin: 11/14/18 17:08 Dose: 0.8 gm Vitamin A (Vitamin A & D Oint Ud Foilpak) 0.5 ea TOP Q4 PRN PRN Reason: Dry mouth Stop: 11/16/18 08:31 Last Admin: 11/14/18 09:17 Dose: 0.5 ea - Labs Labs: 11/14/18 06:00 11/14/18 06:00 PT 14.3 SECONDS (9.7-12.2) H 11/05/18 05:52 INR 1.3 11/05/18 05:52 APTT 43 SECONDS (21-34) H 11/05/18 05:52 Assessment and Plan (1) Acute on chronic renal failure Status: Acute (2) Diabetic nephropathy associated with type 2 diabetes mellitus Status: Acute (3) Uremia, acute Status: Acute
[2018-11-14] MEDS: MethylPREDNISolone 40 mg Vial IVP SCH (22:34)
[2018-11-14] MEDS: Acyclovir 5% Oint (15 gm) EXT SCH (22:51)
[2018-11-15] MEDS: Acyclovir 5% Oint (15 gm) EXT SCH ×5 (00:30→19:05)
[2018-11-15] MEDS: (Novolog) Insulin Aspart, Recombinant 100 u/ml 10 ml vial SC SCH ×4 (00:51→19:14)
[2018-11-15] MEDS: Levothyroxine 50 MCG TAB PO SCH (05:17)
[2018-11-15] MEDS: Pantoprazole 40 mg Susp UD PO SCH (05:17)
[2018-11-15 06:24] LABS: BASO % 0.3 % (0.0-2.0); EOS % 0.1 % (0.0-4.0); HEMOGLOBIN 8.9 g/dL (11.0-16.0); LYMPH # 0.4 K/uL (1.0-4.3); LYMPH % 3.8 % (20.0-40.0); MEAN CELL VOLUME 91.6 fL (81.0-99.0); MEAN CORPUSCULAR HEMOGLOBIN 27.8 pg (27.0-31.0); MEAN CORPUSCULAR HGB CONC 30.4 g/dL (33.0-37.0); MEAN PLATELET VOLUME 10.1 fL (7.2-11.7); MONO # 0.1 K/uL (0.0-0.8); MONO % 1.1 % (0.0-10.0); NEUT # 9.2 K/uL (1.8-7.0); NEUT % 94.7 % (50.0-75.0); NRBC % 0.1 % (0.0-2.0); PLATELET COUNT 219 K/uL (130-400); RBC 3.19 Mil/uL (3.80-5.20); RED CELL DISTRIBUTION WIDTH 20.6 % (11.5-14.5); WHITE BLOOD COUNT 9.7 K/uL (4.8-10.8)
[2018-11-15 06:41] LABS: ALB/GLOB RATIO 1.1 (1.0-2.1); ALBUMIN 3.1 g/dL (3.5-5.0); CALCIUM 7.4 mg/dl (8.6-10.4)
[2018-11-15] MEDS: Sevelamer Carb 0.8 gm/Packet PEG SCH ×3 (08:24→18:59)
[2018-11-15 08:32] LABS: EOSINOPHIL 2 % (0-4); LYMPHOCYTE 1 % (20-40); NEUTROPHIL 97 % (50-75); TOTAL CELLS COUNTED 100
[2018-11-15 08:33] LABS: PLATELET ESTIMATE NORMAL (NORMAL)
[2018-11-15 08:34] LABS: ANISOCYTOSIS SLIGHT
[2018-11-15 08:43] LABS: HYPOCHROMIC SLIGHT; OVALOCYTES SLIGHT; POLYCHROMIC SLIGHT; TEARDROP CELLS SLIGHT
[2018-11-15] MEDS: Saccharomyces Boulardi 250 mg Cap PO SCH (10:00)
--- NOTE | 2018-11-15 11:08 | RAD ---
Date of service: 11/13/2018 PROCEDURE: Fluoroscopy up to 1 hr. HISTORY: PermCath placement COMPARISON: None TECHNIQUE: Total fluoroscopic time (continuous mode) utilized during the procedure 12.8 seconds. FINDINGS: Dose report: DLP [id number] (mGy/m2) IMPRESSION: Submitted images from the current procedure: 2.0
--- NOTE | 2018-11-15 11:09 | CP.CCUPN ---
<Colleen Langfords M - Last Filed: 11/15/18 16:04> CCU Subjective - Physician Review Subjective (Free Text): Patient seen and examined at bedside today. Patient remains intubated. Patient is not on sedation. Patient continues to flail arms around without purpose. ROS is unobtainable due to patients mental status. CCU Objective - Vital Signs / Intake & Output Vital Signs (Last 4 hours): Vital Signs Temp Pulse Resp BP Pulse Ox 11/15/18 08:00 98.8 F 19 100 11/15/18 07:54 78 18 120/54 L Intake and Output (Last 8hrs): Intake & Output 11/14/18 11/15/18 11/15/18 22:59 06:59 14:59 Intake Total 615 275 45 Balance 615 275 45 Intake: Intake, IV Amount 200 Left Upper arm 200 Tube Feeding 355 225 45 Other 60 50 Other: # Bowel Movements 1 1 - Physical Exam Head: Positive for: Atraumatic, Normocephalic Extroacular Muscles: Positive for: EOMI (dropping eyelid left) Conjunctiva: Positive for: Normal Mouth: Positive for: Dry Pharnyx: Positive for: ERYTHEMA (erythemia around lips, petechiae around face ) Neck: Positive for: Other (tracheostomy in place with vent, R IJ permacath) Respiratory/Chest: Positive for: Decreased Breath Sounds, Other (intubated ). Negative for: Respiratory Distress, Accessory Muscle Use, Tachypneic Cardiovascular: Positive for: Regular Rate and Rhythm, Normal S1, S2 Abdomen: Positive for: Normal Bowel Sounds, Other (PEG tube in place ). Negative for: Tenderness, Distention, Rebound, Guarding Back: Positive for: Decubitus Ulcer (unstagable) Upper Extremity: Positive for: Normal Inspection. Negative for: Cyanosis, Edema Lower Extremity: Positive for: Normal Inspection. Negative for: Edema Neurological: Negative for: GCS=15, CN II-XII Intact, Speech Normal Skin: Positive for: Warm, Dry, Normal Color Psychiatric: Negative for: Alert, Oriented x 3, Normal Insight, Normal Concentration - Medications Active Medications: Active Medications Generic Name Dose Route Start Last Admin Trade Name Freq PRN Reason Stop Dose Admin Acetaminophen 650 mg 10/25/18 03:30 11/12/18 17:07 Tylenol 650mg/20.3ml Solution Ud PO 650 mg Q6 PRN Administration pain+fever Acyclovir 1 gm 11/14/18 21:30 11/15/18 07:25 Zovirax 5% Oint EXT 1 applic Q3H JOCELYN Administration Amlodipine Besylate 5 mg 11/07/18 11:00 11/14/18 09:17 Norvasc PO 5 mg DAILY JOCELYN Administration Aspirin 81 mg 10/08/18 10:00 11/14/18 09:18 Aspirin Chewable PO 81 mg DAILY JOC[facility]N Administration Dextrose 0 ml 11/12/18 12:28 Dextrose 50% Inj IV STAT PRN Hypoglycemia Protocol Protocol Dextrose 0 gm 11/12/18 12:28 Glutose 15 PO ONCE PRN Hypoglycemia Protocol Protocol Epoetin Dedrick 10,000 unit 11/01/18 14:00 11/13/18 18:18 Procrit IV 10,000 unit TTS JOCELYN Administration Glucagon 0 mg 11/12/18 12:28 Glucagen Diagnostic Kit IM STAT PRN Hypoglycemia Protocol Protocol Heparin Sodium (Porcine) 5,000 units 11/14/18 06:00 11/15/18 05:17 Heparin SC 5,000 units Q8 JOCELYN Administration Meropenem 500 mg/ Sodium 100 mls @ 100 mls/hr 11/10/18 10:00 11/14/18 09:16 Chloride IVPB 100 mls/hr DAILY JOCELYN Administration Protocol Micafungin Sodium 100 mg/ 100 mls @ 100 mls/hr 11/10/18 19:00 11/14/18 18:01 Dextrose IV 100 mls/hr Q24H JOCELYN Administration Protocol Metronidazole 500 mg in 100 mls @ 100 mls/hr 11/12/18 08:30 11/14/18 17:00 Flagyl IVPB 100 mls/hr Q8H JOCELYN Administration Protocol Dextrose 1,000 mls @ 0 mls/hr 11/12/18 12:28 Dextrose 5% In Water 1000 Ml IV .Q0M PRN Hypoglycemia Protocol Protocol Per Protocol Insulin Aspart 0 unit 10/31/18 12:00 11/15/18 06:57 Novolog SC 12 u Q6H JOCELYN Administration Protocol Levetiracetam 1,000 mg 10/28/18 18:00 11/14/18 17:08 Keppra PO 1,000 mg BID JOCELYN Administration Levothyroxine Sodium 50 mcg 09/29/18 08:00 11/15/18 05:17 Synthroid PO 50 mcg 0600 [facility]OC[facility]N Administration Methylprednisolone 40 mg 11/14/18 22:00 11/14/18 22:34 Solu-Medrol IVP 11/17/18 22:01 40 mg Q12 JOCELYN Administration Nystatin 1 applic 11/12/18 10:00 11/14/18 17:08 Nystop Topical Powder TOP 1 applic BID JOCELYN Administration Pantoprazole Sodium 40 mg 10/09/18 06:00 11/15/18 05:17 Protonix Susp PO 40 mg 0600 [facility] Administration Rosuvastatin Calcium 10 mg 09/30/18 22:00 11/14/18 21:38 Crestor PO 10 mg HS [facility]OCELYN Administration Saccharomyces Boulardii 250 mg 11/01/18 10:00 11/14/18 17:08 Florastor PO 250 mg TID JOC[facility]N Administration Sevelamer Carbonate 0.8 gm 11/14/18 17:00 11/15/18 08:24 Renvela PEG 0.8 gm TIDCC [facility]OC[facility]N Administration Vitamin A 0.5 ea 11/13/18 08:30 11/14/18 09:17 Vitamin A & D Oint Ud Foilpak TOP 11/16/18 08:31 0.5 ea Q4 PRN Administration Dry mouth - Patient Studies Lab Studies: Microbiology Studies 11/12/18 07:19 Stool Culture - Final Stool NO SALMONELLA, SHIGELLA OR CAMPYLOBACTER ISOLATED. 11/12/18 10:47 Blood Culture - Preliminary Blood NO GROWTH AFTER 3 DAYS Lab Studies 11/15/18 11/15/18 11/15/18 Range/Units 06:15 06:15 00:12 WBC 9.7 (4.8-10.8) K/uL RBC 3.19 L (3.80-5.20) Mil/uL Hgb 8.9 L (11.0-16.0) g/dL Hct 29.2 L (34.0-47.0) % MCV 91.6 (81.0-99.0) fL MCH 27.8 (27.0-31.0) pg MCHC 30.4 L (33.0-37.0) g/dL RDW 20.6 H (11.5-14.5) % Plt Count 219 (130-400) K/uL MPV 10.1 (7.2-11.7) fL Neut % (Auto) 94.7 H (50.0-75.0) % Lymph % (Auto) 3.8 L (20.0-40.0) % Bracken % (Auto) 1.1 (0.0-10.0) % Eos % (Auto) 0.1 (0.0-4.0) % Baso % (Auto) 0.3 (0.0-2.0) % Neut # (Auto) 9.2 H (1.8-7.0) K/uL Lymph # (Auto) 0.4 L (1.0-4.3) K/uL Bracken # (Auto) 0.1 (0.0-0.8) K/uL Eos # (Auto) 0.0 (0.0-0.7) K/uL Baso # (Auto) 0.0 (0.0-0.2) K/uL Neutrophils % (Manual) 97 H (50-75) % Lymphocytes % (Manual) 1 L (20-40) % Monocytes % (Manual) TEST NOT PERFORMED Eosinophils % (Manual) 2 (0-4) % Platelet Estimate Normal (NORMAL) Polychromasia Slight Hypochromasia (manual) Slight Anisocytosis (manual) Slight Tear Drop Cells Slight Ovalocytes Slight Sodium 132 (132-148) mmol/L Potassium 4.7 (3.6-5.2) mmol/L Chloride 96 L (98-107) mmol/L Carbon Dioxide 21 L (22-30) mmol/L Anion Gap 19 (10-20) BUN 67 H (7-17) mg/dL Creatinine 4.2 H (0.7-1.2) mg/dL Est GFR ( Amer) 13 Est GFR (Non-Af Amer) 10 POC Glucose (mg/dL) 245 H (65-110) mg/dL Random Glucose 430 H* D (65-105) mg/dL Calcium 7.4 L (8.6-10.4) mg/dl Phosphorus 8.6 H (2.5-4.5) mg/dL Magnesium 2.0 (1.6-2.3) mg/dL Total Bilirubin 0.5 (0.2-1.3) mg/dL AST 44 H (14-36) U/L ALT 27 (9-52) U/L Alkaline Phosphatase 247 H D (38-126) U/L Total Protein 6.1 L (6.3-8.3) g/dL Albumin 3.1 L (3.5-5.0) g/dL Globulin 2.9 (2.2-3.9) gm/dL Albumin/Globulin Ratio 1.1 (1.0-2.1) 11/14/18 11/14/18 Range/Units 17:45 11:25 WBC (4.8-10.8) K/uL RBC (3.80-5.20) Mil/uL Hgb (11.0-16.0) g/dL Hct (34.0-47.0) % MCV (81.0-99.0) fL MCH (27.0-31.0) pg MCHC (33.0-37.0) g/dL RDW (11.5-14.5) % Plt Count (130-400) K/uL MPV (7.2-11.7) fL Neut % (Auto) (50.0-75.0) % Lymph % (Auto) (20.0-40.0) % Bracken % (Auto) (0.0-10.0) % Eos % (Auto) (0.0-4.0) % Baso % (Auto) (0.0-2.0) % Neut # (Auto) (1.8-7.0) K/uL Lymph # (Auto) (1.0-4.3) K/uL Bracken # (Auto) (0.0-0.8) K/uL Eos # (Auto) (0.0-0.7) K/uL Baso # (Auto) (0.0-0.2) K/uL Neutrophils % (Manual) (50-75) % Lymphocytes % (Manual) (20-40) % Monocytes % (Manual) Eosinophils % (Manual) (0-4) % Platelet Estimate (NORMAL) Polychromasia Hypochromasia (manual) Anisocytosis (manual) Tear Drop Cells Ovalocytes Sodium (132-148) mmol/L Potassium (3.6-5.2) mmol/L Chloride (98-107) mmol/L Carbon Dioxide (22-30) mmol/L Anion Gap (10-20) BUN (7-17) mg/dL Creatinine (0.7-1.2) mg/dL Est GFR ( Amer) Est GFR (Non-Af Amer) POC Glucose (mg/dL) 264 H 181 H (65-110) mg/dL Random Glucose (65-105) mg/dL Calcium (8.6-10.4) mg/dl Phosphorus (2.5-4.5) mg/dL Magnesium (1.6-2.3) mg/dL Total Bilirubin (0.2-1.3) mg/dL AST (14-36) U/L ALT (9-52) U/L Alkaline Phosphatase (38-126) U/L Total Protein (6.3-8.3) g/dL Albumin (3.5-5.0) g/dL Globulin (2.2-3.9) gm/dL Albumin/Globulin Ratio (1.0-2.1) Laboratory Results - last 24 hr 11/14/18 11/14/18 11/15/18 11:25 17:45 00:12 WBC RBC Hgb Hct MCV MCH MCHC RDW Plt Count MPV Neut % (Auto) Lymph % (Auto) Bracken % (Auto) Eos % (Auto) Baso % (Auto) Neut # (Auto) Lymph # (Auto) Bracken # (Auto) Eos # (Auto) Baso # (Auto) Neutrophils % (Manual) Lymphocytes % (Manual) Monocytes % (Manual) Eosinophils % (Manual) Platelet Estimate Polychromasia Hypochromasia (manual) Anisocytosis (manual) Tear Drop Cells Ovalocytes Sodium Potassium Chloride Carbon Dioxide Anion Gap BUN Creatinine Est GFR ( Amer) Est GFR (Non-Af Amer) POC Glucose (mg/dL) 181 H 264 H 245 H Random Glucose Calcium Phosphorus Magnesium Total Bilirubin AST ALT Alkaline Phosphatase Total Protein Albumin Globulin Albumin/Globulin Ratio 11/15/18 11/15/18 06:15 06:15 WBC 9.7 RBC 3.19 L Hgb 8.9 L Hct 29.2 L MCV 91.6 MCH 27.8 MCHC 30.4 L RDW 20.6 H Plt Count 219 MPV 10.1 Neut % (Auto) 94.7 H Lymph % (Auto) 3.8 L Bracken % (Auto) 1.1 Eos % (Auto) 0.1 Baso % (Auto) 0.3 Neut # (Auto) 9.2 H Lymph # (Auto) 0.4 L Bracken # (Auto) 0.1 Eos # (Auto) 0.0 Baso # (Auto) 0.0 Neutrophils % (Manual) 97 H Lymphocytes % (Manual) 1 L Monocytes % (Manual) TEST NOT PERFORMED Eosinophils % (Manual) 2 Platelet Estimate Normal Polychromasia Slight Hypochromasia (manual) Slight Anisocytosis (manual) Slight Tear Drop Cells Slight Ovalocytes Slight Sodium 132 Potassium 4.7 Chloride 96 L Carbon Dioxide 21 L Anion Gap 19 BUN 67 H Creatinine 4.2 H Est GFR ( Amer) 13 Est GFR (Non-Af Amer) 10 POC Glucose (mg/dL) Random Glucose 430 H* D Calcium 7.4 L Phosphorus 8.6 H Magnesium 2.0 Total Bilirubin 0.5 AST 44 H ALT 27 Alkaline Phosphatase 247 H D Total Protein 6.1 L Albumin 3.1 L Globulin 2.9 Albumin/Globulin Ratio 1.1 Radiology Impressions: Radiology Impressions Interventional Procedure 11/13/18 16:00 IMPRESSION: Submitted images from the current procedure: 2.0 Fingerstick Blood Sugar Results: 430 Review of Systems - Review of Systems Systems not reviewed;Unavailable: Intubated Critical Care Progress Note - Ventilator Checklist Head of Bed 30 Degrees: Yes Daily Spontaneous Breathing Trial: Yes PUD Prophalyxis: Yes DVT Prophylaxis: Yes - Vent Settings MODE:: PRVC TIDAL VOLUME:: 450 RESP RATE:: 14 FIO2:: 35 PEEP:: 5 - Extremities/Vascular Does the Patient have a Central Venous Catheter?: Yes Insertion Site: Internal Jugular Vein Does the Patient need a Central Venous Catheter?: Yes Does the Patient have a Rodriguez Catheter?: Yes Does the Patient need a Rodriguez Catheter?: Yes - Prophylaxis GI Prophylaxis GI: PPI - Prophylaxis DVT Prophylaxis DVT: Heparin SQ Assessment/Plan - Assessment and Plan (Free Text) Assessment: Patient is a 72 year old female with PMHx of CKD, CHF, CAD s/p stents, pituitary adenoma a/p resection, DM, who was admitted for respiratory and cardiac arrest s/p permacath placement and AVF on 10/05; possible AMS due to anoxic brain injury, now on HD MWF, tracheostomy on 10/18/17, PEG tube placement 10/23/18. Patient became hypotensive overnight and upgraded to ICU. Permacath removed by surgery on 10/30. A trialysis catheter inserted but dialysis reported the line was not function. Pt had a LP yesterday (11/05) to r/o meningitis. Pt continues to have diarrhea, feeds changed to Glucerna. Patients family made decision to make patient DNR (11/08) after long discussion regarding goals of care. Patient remains intubated and patients family still remains without decision regarding terminal extubation. Discussion with patient's daughter regarding goals of care; patient is downgraded out of ICU until decision can be made regarding terminal extubation. Please reconsult as needed. Plan: Neuro - Intubated, agitated - No sedation - continue Keppra per neuro - Lumbar puncture 11/05: WBC 1.0, Glucose 129, RBC 0, Total protein 56 - CSF- negative for herpes I & II, HIV, West Nile, VDRL - f/u Neuro recs Cardiac - Hypertension, improved - continue Norvasc 5mg daily - Echo 11/01: Left Ventricle systolic function is normal; EF is 55-60%; hypertensive heart disease; diastolic dysfunction; no AR, MR, pulmonary hypertension; trace to mild tricuspid regurgitation. - continue to monitor vitals - continue Crestor 10mg, ASA 81mg Pulm - Intubated, current vent settings PRVC 14/450/5/35 - Pressure support trials - CXR 11/13: mild cardiomegaly and pulmonary venous congestion GI - PEG tube in place - Tube feeds changed to Glucerna at rate of 40ml/hr - rectal tube in place - protonix ppx - CT abdomen/pelvis 10/30: fluid and gas filled distended rectum versus perirectal abscess. Evidence of anastomotic bowel suture material and/or rectal tube/packing material. Renal - Dialysis today - HD schedule: [facility] - Permacath placement 11/13 for dialysis - continue Procrit Endo - Hx of Hypothyroidism, continue levothyroxine 50mg - Hx of DM, continue ISS high - insulin held on 11/12 due to hypoglycemia - Accuchecks Q6H Heme - H/H 8.9/.2 - monitor CBC ID - Currently afebrile, Tmax 100.3F - WBC 9.7 today, continue to monitor - 11/12 blood cx & urine cx: Negative for 3 days - c. diff toxin negative - Per primary, hold Meropenem, Flagyl - 10/30 Tracheostomy site, sputum cx positive: Romina Albicans - hold Micafungin 100mg, per primary - Nystatin powder for fungal rash on chest - Sacral decubitus Ulcer, unstageable; wound care following - Surgery debrided perineal pressure wound in OR 11/13 - ESR (+) 99 (2/5) - CRP (+) 155.70 (2/5) - f/u ID recs Rheum - JERRY negative (2/5) PPx - Protonix for GI ppx - DVT ppx: SCDs, Heparin SC - Tylenol PRN for fever - Hypoglycemic protocol PRN <[email or web address] M - Last Filed: 11/20/18 07:47> CCU Objective - Vital Signs / Intake & Output Vital Signs (Last 4 hours): Vital Signs Temp Pulse Resp BP Pulse Ox 11/20/18 07:29 99.4 F 100 H 20 117/70 99 Intake and Output (Last 8hrs): Intake & Output 11/19/18 11/20/18 11/20/18 22:59 06:59 14:59 Intake Total 760 760 Output Total 5 Balance 760 755 Intake: Intake, IV Amount 200 200 Right Upper arm 200 200 Tube Feeding 360 360 Other 200 200 Output: Urine/Stool Mix 5 Other: # Bowel Movements 3 - Medications Active Medications: Active Medications Generic Name Dose Route Start Last Admin Trade Name Freq PRN Reason Stop Dose Admin Acetaminophen 650 mg 10/25/18 03:30 11/20/18 00:24 Tylenol 650mg/20.3ml Solution Ud PO 650 mg Q6 PRN Administration pain+fever Acyclovir 1 gm 11/14/18 21:30 11/20/18 05:37 Zovirax 5% Oint EXT 1 applic Q3H JOCELYN Administration Amlodipine Besylate 5 mg 11/07/18 11:00 11/19/18 10:34 Norvasc PO Not Given DAILY JOCELYN Aspirin 81 mg 10/08/18 10:00 11/19/18 10:34 Aspirin Chewable PO 81 mg DAILY JOCELYN Administration Dextrose 0 ml 11/12/18 12:28 Dextrose 50% Inj IV STAT PRN Hypoglycemia Protocol Protocol Dextrose 0 gm 11/12/18 12:28 Glutose 15 PO ONCE PRN Hypoglycemia Protocol Protocol Epoetin Dedrick 10,000 unit 11/01/18 14:00 11/17/18 18:10 Procrit IV 10,000 unit TTS JOCELYN Administration Glucagon 0 mg 11/12/18 12:28 Glucagen Diagnostic Kit IM STAT PRN Hypoglycemia Protocol Protocol Heparin Sodium (Porcine) 5,000 units 11/14/18 06:00 11/20/18 05:35 Heparin SC 5,000 units Q8 JOCELYN Administration Meropenem 500 mg/ Sodium 100 mls @ 100 mls/hr 11/10/18 10:00 11/19/18 10:31 Chloride IVPB 100 mls/hr DAILY JOCELYN Administration Protocol Metronidazole 500 mg in 100 mls @ 100 mls/hr 11/12/18 08:30 11/20/18 00:24 Flagyl IVPB 100 mls/hr Q8H JOCELYN Administration Protocol Micafungin Sodium 100 mg/ 100 mls @ 100 mls/hr 11/16/18 19:30 11/19/18 20:24 Sodium Chloride IV 100 mls/hr Q24H JOCELYN Administration Protocol Insulin Aspart 0 unit 10/31/18 12:00 11/20/18 00:22 Novolog SC Not Given Q6H JOCELYN Protocol Insulin Glargine 25 unit 11/18/18 17:28 11/19/18 22:23 Lantus SC 25 units Q12 JOCELYN Administration Levetiracetam 1,000 mg 10/28/18 18:00 11/19/18 17:41 Keppra PO 1,000 mg BID JOCELYN Administration Levothyroxine Sodium 50 mcg 09/29/18 08:00 11/20/18 05:36 Synthroid PO 50 mcg 0600 JOCELYN Administration Nystatin 1 applic 11/12/18 10:00 11/19/18 22:27 Nystop Topical Powder TOP 1 applic BID JOCELYN Administration Pantoprazole Sodium 40 mg 10/09/18 06:00 11/20/18 05:36 Protonix Susp PO 40 mg 0600 JOCELYN Administration Rosuvastatin Calcium 10 mg 09/30/18 22:00 11/19/18 22:24 Crestor PO 10 mg HS JOCELYN Administration Saccharomyces Boulardii 250 mg 11/01/18 10:00 11/19/18 17:41 Florastor PO 250 mg TID JOCELYN Administration Sevelamer Carbonate 0.8 gm 11/14/18 17:00 11/19/18 17:41 Renvela PEG 0.8 gm TIDCC JOCELYN Administration - Patient Studies Lab Studies: Microbiology Studies 11/18/18 14:42 Gram Stain - Final Sputum Sputum Culture - Preliminary Stenotrophomonas Maltophilia 11/17/18 16:35 Blood Culture - Preliminary Blood-During Dialysis NO GROWTH AFTER 48 HOURS 11/17/18 15:50 Blood Culture - Preliminary Blood-During Dialysis NO GROWTH AFTER 48 HOURS 11/16/18 14:05 Blood Culture - Preliminary Blood NO GROWTH AFTER 3 DAYS Lab Studies 11/20/18 11/20/18 11/19/18 Range/Units 07:34 00:06 17:31 POC Glucose (mg/dL) 141 H 147 H 110 (65-110) mg/dL 11/19/18 Range/Units 12:49 POC Glucose (mg/dL) 130 H (65-110) mg/dL Laboratory Results - last 24 hr 11/19/18 11/19/18 11/20/18 12:49 17:31 00:06 POC Glucose (mg/dL) 130 H 110 147 H 11/20/18 07:34 POC Glucose (mg/dL) 141 H Attending/Attestation - Attestation I have personally seen and examined this patient.: Yes I have fully participated in the care of the patient.: Yes I have reviewed all pertinent clinical information: Yes Notes (Text): Today: November The patient was Seen/interviewed and examined by me at the bedside during ICU round, Medical records reviewed and Management issues were discussed and formulated with the house staff. Events reviewed I have reviewed all the relevant clinical, laboratory, hemodynamic, radiographic data and medications Pain issues, skin care, head of the bed elevation, glycemic control were addressed. I concur with resident's assessment and plan of care as transcribed in Dr. Langford note.
[2018-11-15] MEDS: Epoetin Alfa 10,000 unit/ml Dialysis IV SCH (11:35)
[2018-11-15] MEDS: MethylPREDNISolone 40 mg Vial IVP SCH ×2 (13:27→22:07)
[2018-11-15] MEDS: levETIRAcetam 100 mg/ml (5ml) Oral Syringe PO SCH ×2 (13:29→18:58)
--- NOTE | 2018-11-15 14:35 | CP.PCM.PN ---
Subjective - Date & Time of Evaluation Date of Evaluation: 11/15/18 Time of Evaluation: 14:32 - Subjective Subjective: pt seen and examined on vent, FIo2 40% keeps moving arms afebrile elevated BS this morning unresponsive ROS- unable to obtain due to medical condition Objective - Vital Signs/Intake and Output Vital Signs (last 24 hours): Temp Pulse Resp BP Pulse Ox 97.5 F L 79 14 98/47 L 100 11/15/18 13:00 11/15/18 13:00 11/15/18 13:00 11/15/18 13:00 11/15/18 13:00 Intake and Output: 11/15/18 11/15/18 06:59 18:59 Intake Total 455 45 Balance 455 45 - Medications Medications: Current Medications Acetaminophen (Tylenol 650mg/20.3ml Solution Ud) 650 mg PO Q6 PRN PRN Reason: pain+fever Last Admin: 11/12/18 17:07 Dose: 650 mg Acyclovir (Zovirax 5% Oint) 1 gm EXT Q3H [facility] Last Admin: 11/15/18 07:25 Dose: 1 applic Amlodipine Besylate (Norvasc) 5 mg PO DAILY [facility] Last Admin: 11/15/18 13:28 Dose: 5 mg Aspirin (Aspirin Chewable) 81 mg PO DAILY [facility] Last Admin: 11/15/18 13:27 Dose: 81 mg Dextrose (Dextrose 50% Inj) 0 ml IV STAT PRN; Protocol PRN Reason: Hypoglycemia Protocol Dextrose (Glutose 15) 0 gm PO ONCE PRN; Protocol PRN Reason: Hypoglycemia Protocol Epoetin Dedrick (Procrit) 10,000 unit IV TTS [facility] Last Admin: 11/15/18 11:35 Dose: 10,000 unit Glucagon (Glucagen Diagnostic Kit) 0 mg IM STAT PRN; Protocol PRN Reason: Hypoglycemia Protocol Heparin Sodium (Porcine) (Heparin) 5,000 units SC Q8 [facility] Last Admin: 11/15/18 13:32 Dose: 5,000 units Meropenem 500 mg/ Sodium (Chloride) 100 mls @ 100 mls/hr IVPB DAILY [facility]; Protocol Last Admin: 11/14/18 09:16 Dose: 100 mls/hr Micafungin Sodium 100 mg/ (Dextrose) 100 mls @ 100 mls/hr IV Q24H [facility]; Protocol Last Admin: 11/14/18 18:01 Dose: 100 mls/hr Metronidazole (Flagyl) 500 mg in 100 mls @ 100 mls/hr IVPB Q8H [facility]; Protocol Last Admin: 11/14/18 17:00 Dose: 100 mls/hr Dextrose (Dextrose 5% In Water 1000 Ml) 1,000 mls @ 0 mls/hr IV .Q0M PRN; Protocol PRN Reason: Hypoglycemia Protocol Insulin Aspart (Novolog) 0 unit SC Q6H [facility]; Protocol Last Admin: 11/15/18 12:18 Dose: 4 u Levetiracetam (Keppra) 1,000 mg PO BID [facility] Last Admin: 11/15/18 13:29 Dose: 1,000 mg Levothyroxine Sodium (Synthroid) 50 mcg PO 0600 [facility] Last Admin: 11/15/18 05:17 Dose: 50 mcg Methylprednisolone (Solu-Medrol) 40 mg IVP Q12 [facility] Stop: 11/17/18 22:01 Last Admin: 11/15/18 13:27 Dose: 40 mg Nystatin (Nystop Topical Powder) 1 applic TOP BID [facility] Last Admin: 11/15/18 10:19 Dose: 1 applic Pantoprazole Sodium (Protonix Susp) 40 mg PO 0600 [facility] Last Admin: 11/15/18 05:17 Dose: 40 mg Rosuvastatin Calcium (Crestor) 10 mg PO HS [facility] Last Admin: 11/14/18 21:38 Dose: 10 mg Saccharomyces Boulardii (Florastor) 250 mg PO TID [facility] Last Admin: 11/15/18 10:00 Dose: Not Given Sevelamer Carbonate (Renvela) 0.8 gm PEG TIDCC [facility] Last Admin: 11/15/18 13:28 Dose: 0.8 gm Vitamin A (Vitamin A & D Oint Ud Foilpak) 0.5 ea TOP Q4 PRN PRN Reason: Dry mouth Stop: 11/16/18 08:31 Last Admin: 11/14/18 09:17 Dose: 0.5 ea - Labs Labs: 11/15/18 06:15 11/15/18 06:15 PT 14.3 SECONDS (9.7-12.2) H 11/05/18 05:52 INR 1.3 11/05/18 05:52 APTT 43 SECONDS (21-34) H 11/05/18 05:52 - Constitutional Appears: Chronically Ill - Head Exam Head Exam: ATRAUMATIC, NORMOCEPHALIC - Eye Exam Eye Exam: PERRL Additional comments: anicteric - Respiratory Exam Respiratory Exam: Clear to Ausculation Bilateral. absent: Rhonchi, Wheezes - Cardiovascular Exam Cardiovascular Exam: REGULAR RHYTHM, +S1, +S2 - GI/Abdominal Exam GI & Abdominal Exam: Soft. absent: Tenderness - Extremities Exam Extremities Exam: Pedal Edema - Neurological Exam Neurological Exam: absent: Alert, Awake, Oriented x3 - Skin Skin Exam: Dry Additional comments: rash on lips, left arm and cheeks from shingles Assessment and Plan (1) Diabetic nephropathy associated with type 2 diabetes mellitus Status: Acute (2) ESRD (end stage renal disease) Status: Acute (3) Respiratory failure Status: Acute (4) Altered mental state Status: Acute (5) CAD (coronary artery disease) Status: Acute (6) Cardiomyopathy Status: Acute - Assessment and Plan (Free Text) Plan: HD today good flows with permcath awaiting family members to arrive to decide [facility] goals of care
--- NOTE | 2018-11-15 20:42 | CP.PCM.PN ---
Subjective - Date & Time of Evaluation Date of Evaluation: 11/15/18 Time of Evaluation: 20:41 - Subjective Subjective: Patient this morning was getting the hemodialysis. She was on full support ventilation. Vital signs stable, but low-grade fever noted. Currently antibiotic is on hold. On examination: Vital signs are stable otherwise. Low-grade fever Chest good air entry Abdomen soft. Perineal area erythema noted, not discharge present. Patient has a right-sided permacath. Patient is DNR. Patient being transferred to the third floor today. Family understand the condition. Family is reluctant to have the full support, possibly comfort care. Meanwhile we will continue the current treatment. Monitor the hemoglobin. Vital signs and will follow the patient Objective - Vital Signs/Intake and Output Vital Signs (last 24 hours): Temp Pulse Resp BP Pulse Ox 97.4 F L 82 20 124/64 100 11/15/18 16:21 11/15/18 16:21 11/15/18 16:21 11/15/18 16:21 11/15/18 16:21 Intake and Output: 11/15/18 11/16/18 18:59 06:59 Intake Total 45 Balance 45 - Medications Medications: Current Medications Acetaminophen (Tylenol 650mg/20.3ml Solution Ud) 650 mg PO Q6 PRN PRN Reason: pain+fever Last Admin: 11/12/18 17:07 Dose: 650 mg Acyclovir (Zovirax 5% Oint) 1 gm EXT Q3H [facility] Last Admin: 11/15/18 19:05 Dose: 1 applic Amlodipine Besylate (Norvasc) 5 mg PO DAILY [facility] Last Admin: 11/15/18 13:28 Dose: 5 mg Aspirin (Aspirin Chewable) 81 mg PO DAILY [facility] Last Admin: 11/15/18 13:27 Dose: 81 mg Dextrose (Dextrose 50% Inj) 0 ml IV STAT PRN; Protocol PRN Reason: Hypoglycemia Protocol Dextrose (Glutose 15) 0 gm PO ONCE PRN; Protocol PRN Reason: Hypoglycemia Protocol Epoetin Dedrick (Procrit) 10,000 unit IV TTS [facility] Last Admin: 11/15/18 11:35 Dose: 10,000 unit Glucagon (Glucagen Diagnostic Kit) 0 mg IM STAT PRN; Protocol PRN Reason: Hypoglycemia Protocol Heparin Sodium (Porcine) (Heparin) 5,000 units SC Q8 [facility] Last Admin: 11/15/18 13:32 Dose: 5,000 units Meropenem 500 mg/ Sodium (Chloride) 100 mls @ 100 mls/hr IVPB DAILY [facility]; Protocol Last Admin: 11/14/18 09:16 Dose: 100 mls/hr Micafungin Sodium 100 mg/ (Dextrose) 100 mls @ 100 mls/hr IV Q24H [facility]; Protocol Last Admin: 11/14/18 18:01 Dose: 100 mls/hr Metronidazole (Flagyl) 500 mg in 100 mls @ 100 mls/hr IVPB Q8H [facility]; Protocol Last Admin: 11/14/18 17:00 Dose: 100 mls/hr Dextrose (Dextrose 5% In Water 1000 Ml) 1,000 mls @ 0 mls/hr IV .Q0M PRN; Protocol PRN Reason: Hypoglycemia Protocol Insulin Aspart (Novolog) 0 unit SC Q6H [facility]; Protocol Last Admin: 11/15/18 19:14 Dose: 6 u Levetiracetam (Keppra) 1,000 mg PO BID [facility] Last Admin: 11/15/18 18:58 Dose: 1,000 mg Levothyroxine Sodium (Synthroid) 50 mcg PO 0600 [facility] Last Admin: 11/15/18 05:17 Dose: 50 mcg Methylprednisolone (Solu-Medrol) 40 mg IVP Q12 [facility] Stop: 11/17/18 22:01 Last Admin: 11/15/18 13:27 Dose: 40 mg Nystatin (Nystop Topical Powder) 1 applic TOP BID [facility] Last Admin: 11/15/18 19:04 Dose: 1 applic Pantoprazole Sodium (Protonix Susp) 40 mg PO 0600 [facility] Last Admin: 11/15/18 05:17 Dose: 40 mg Rosuvastatin Calcium (Crestor) 10 mg PO HS [facility] Last Admin: 11/14/18 21:38 Dose: 10 mg Saccharomyces Boulardii (Florastor) 250 mg PO TID [facility] Last Admin: 11/15/18 10:00 Dose: Not Given Sevelamer Carbonate (Renvela) 0.8 gm PEG TIDCC [facility] Last Admin: 11/15/18 18:59 Dose: 0.8 gm Vitamin A (Vitamin A & D Oint Ud Foilpak) 0.5 ea TOP Q4 PRN PRN Reason: Dry mouth Stop: 11/16/18 08:31 Last Admin: 11/14/18 09:17 Dose: 0.5 ea - Labs Labs: 11/15/18 06:15 11/15/18 06:15 PT 14.3 SECONDS (9.7-12.2) H 11/05/18 05:52 INR 1.3 11/05/18 05:52 APTT 43 SECONDS (21-34) H 11/05/18 05:52 Assessment and Plan (1) Acute on chronic renal failure Status: Acute (2) Diabetic nephropathy associated with type 2 diabetes mellitus Status: Acute (3) Uremia, acute Status: Acute
[2018-11-16] MEDS: Acyclovir 5% Oint (15 gm) EXT SCH ×8 (00:38→22:49)
[2018-11-16] MEDS: (Novolog) Insulin Aspart, Recombinant 100 u/ml 10 ml vial SC SCH ×4 (00:45→17:58)
[2018-11-16] MEDS: Levothyroxine 50 MCG TAB PO SCH (06:12)
[2018-11-16] MEDS: Pantoprazole 40 mg Susp UD PO SCH (06:23)
--- NOTE | 2018-11-16 06:43 | CP.PCM.PN ---
Subjective - Date & Time of Evaluation Date of Evaluation: 11/15/18 Time of Evaluation: 08:20 - Subjective Subjective: Patient seen and examined at bedside Unresponsive to commands S/P Perma cath replacement Physical Examination - Physical Exam Head: Positive for: Atraumatic, Normocephalic Extroacular Muscles: Positive for: EOMI (dropping eyelid left) Conjunctiva: Positive for: Normal Mouth: Positive for: Dry Pharnyx: Positive for: ERYTHEMA (erythemia around lips) Neck: Positive for: Other (tracheostomy in place with vent, trialysis cath on left side neck area ) Respiratory/Chest: Positive for: Decreased Breath Sounds, Other (intubated ). Negative for: Respiratory Distress, Accessory Muscle Use, Tachypneic Cardiovascular: Positive for: Regular Rate and Rhythm, Normal S1, S2 Abdomen: Positive for: Normal Bowel Sounds, Other (PEG tube in place ). Negative for: Tenderness, Distention, Rebound, Guarding Back: Positive for: Decubitus Ulcer (unstagable) Upper Extremity: Positive for: Normal Inspection. Negative for: Cyanosis, Edema Lower Extremity: Positive for: Normal Inspection. Negative for: Edema Neurological: Negative for: GCS=15, CN II-XII Intact, Speech Normal Skin: Positive for: Warm, Dry, Normal Color Psychiatric: Negative for: Alert, Oriented x 3, Normal Insight, Normal Concentration Assessment and Plan - Assessment and Plan (Free Text) Assessment: Patient is a 72 year old female with PMHx of CKD, CHF, CAD s/p stents, pituitary adenoma a/p resection, DM, who was admitted for respiratory and cardiac arrest s/p permacath placement and AVF on 10/05; possible AMS due to anoxic brain injury, now on HD MWF, tracheostomy on 10/18/17, PEG tube placement 10/23/18. Patient became hypotensive overnight and upgraded to ICU. Permacath removed by surgery on 10/30. A trialysis catheter inserted but dialysis reported the line was not function. A IJ central line inserted for dialysis access. Pt had a LP yesterday (11/05) to r/o meningitis. Pt continues to have diarrhea, feeds changed to Glucerna. The left IJ catheter inserted 11/01 for dialysis was repositioned yesterday due to poor blood return. Patients family made decision to make patient DNR (11/08) after long discussion regarding goals of care. Patient remains intubated and patients family still remains without decision regarding terminal extubation. Patient continues to have diarrhea; rectal tube remains in place. Patient to go to OR today for permacath placement for dialysis. Plan: Neuro - Intubated, agitated - No sedation - continue Keppra and valproate as per neuro - Lumbar puncture 11/05: WBC 1.0, Glucose 129, RBC 0, Total protein 56 - CSF - negative for herpes I&II, HIV, West Nile, VDRL - f/u Neuro recs Cardiac - Hypertension, improved - continue Norvasc 5mg daily - Echo 11/01: Left Ventricle systolic function is normal; EF is 55-60%; hypertensive heart disease; diastolic dysfunction; no AR, MR, pulmonary hypertension; trace to mild tricuspid regurgitation. - continue to monitor vitals - continue Crestor 10mg, ASA 81mg Pulm - Intubated, current vent settings PRVC 14/450/5/35 - Pressure support trials - CXR 11/08: No acute infiltrate pleural effusion identified GI - PEG tube in place - Tube feeds changed to Glucerna at rate of 20ml/hr due to diarrhea - rectal tube in place - protonix ppx - CT abdomen/pelvis 10/30: fluid and gas filled distended rectum versus perirectal abscess. Evidence of anastomotic bowel suture material and/or rectal tube/packing material. - per surgery, no intervention at this time Renal - Dialysis today after OR - HD schedule: [facility] - OR today for permacath placement for dialysis - continue Procrit Endo - Hx of Hypothyroidism, continue levothyroxine 50mg - Hx of DM, continue ISS - insulin held on 11/12 due to hypoglycemia - Accuchecks Q6H Heme - H/H 9.2.7 - monitor CBC ID - Febrile, Tmax 100.6F - WBC 8.3 today, continue to monitor - f/u stool cx, blood cx, urine cx - f/u c.difficle toxin - continue Abx: Meropenem, Flagyl, Vanco - 10/30 Tracheostomy site, sputum cx positive: Romina Albicans - continue Micafungin 100mg - Nystatin powder for fungal rash on chest - Decubitus Ulcer, unstageable; wound care following - Consult Surgery to re-evaluate perirectal abscess following ceretec scan results - surgery - nothing to do at this point - ESR (+) 99 (2/5) - CRP (+) 155.70 (2/5) - f/u ID recs Rheum - JERRY negative (2/5) PPx - Protonix for GI ppx - DVT ppx: SCDs, Heparin SC - Tylenol PRN for fever - Hypoglycemic protocol PRN Objective - Vital Signs/Intake and Output Vital Signs (last 24 hours): Temp Pulse Resp BP Pulse Ox 97.4 F L 94 H 22 117/52 L 96 11/16/18 00:00 11/16/18 00:00 11/16/18 00:00 11/16/18 00:00 11/16/18 00:00 Intake and Output: 11/15/18 11/16/18 18:59 06:59 Intake Total 45 560 Balance 45 560 - Medications Medications: Current Medications Acetaminophen (Tylenol 650mg/20.3ml Solution Ud) 650 mg PO Q6 PRN PRN Reason: pain+fever Last Admin: 11/12/18 17:07 Dose: 650 mg Acyclovir (Zovirax 5% Oint) 1 gm EXT Q3H [facility] Last Admin: 11/15/18 19:05 Dose: 1 applic Amlodipine Besylate (Norvasc) 5 mg PO DAILY [facility] Last Admin: 11/15/18 13:28 Dose: 5 mg Aspirin (Aspirin Chewable) 81 mg PO DAILY [facility] Last Admin: 11/15/18 13:27 Dose: 81 mg Dextrose (Dextrose 50% Inj) 0 ml IV STAT PRN; Protocol PRN Reason: Hypoglycemia Protocol Dextrose (Glutose 15) 0 gm PO ONCE PRN; Protocol PRN Reason: Hypoglycemia Protocol Epoetin Dedrick (Procrit) 10,000 unit IV TTS [facility] Last Admin: 11/15/18 11:35 Dose: 10,000 unit Glucagon (Glucagen Diagnostic Kit) 0 mg IM STAT PRN; Protocol PRN Reason: Hypoglycemia Protocol Heparin Sodium (Porcine) (Heparin) 5,000 units SC Q8 [facility] Last Admin: 11/16/18 06:30 Dose: 5,000 units Meropenem 500 mg/ Sodium (Chloride) 100 mls @ 100 mls/hr IVPB DAILY [facility]; Protocol Last Admin: 11/14/18 09:16 Dose: 100 mls/hr Micafungin Sodium 100 mg/ (Dextrose) 100 mls @ 100 mls/hr IV Q24H [facility]; Protocol Last Admin: 11/14/18 18:01 Dose: 100 mls/hr Metronidazole (Flagyl) 500 mg in 100 mls @ 100 mls/hr IVPB Q8H [facility]; Protocol Last Admin: 11/14/18 17:00 Dose: 100 mls/hr Dextrose (Dextrose 5% In Water 1000 Ml) 1,000 mls @ 0 mls/hr IV .Q0M PRN; Protocol PRN Reason: Hypoglycemia Protocol Insulin Aspart (Novolog) 0 unit SC Q6H [facility]; Protocol Last Admin: 11/16/18 06:28 Dose: 12 units Levetiracetam (Keppra) 1,000 mg PO BID [facility] Last Admin: 11/15/18 18:58 Dose: 1,000 mg Levothyroxine Sodium (Synthroid) 50 mcg PO 0600 [facility] Last Admin: 11/15/18 05:17 Dose: 50 mcg Methylprednisolone (Solu-Medrol) 40 mg IVP Q12 [facility] Stop: 11/17/18 22:01 Last Admin: 11/15/18 22:07 Dose: 40 mg Nystatin (Nystop Topical Powder) 1 applic TOP BID [facility] Last Admin: 11/15/18 19:04 Dose: 1 applic Pantoprazole Sodium (Protonix Susp) 40 mg PO 0600 [facility] Last Admin: 11/15/18 05:17 Dose: 40 mg Rosuvastatin Calcium (Crestor) 10 mg PO HS [facility] Last Admin: 11/15/18 22:07 Dose: 10 mg Saccharomyces Boulardii (Florastor) 250 mg PO TID [facility] Last Admin: 11/15/18 10:00 Dose: Not Given Sevelamer Carbonate (Renvela) 0.8 gm PEG TIDCC [facility] Last Admin: 11/15/18 18:59 Dose: 0.8 gm Vitamin A (Vitamin A & D Oint Ud Foilpak) 0.5 ea TOP Q4 PRN PRN Reason: Dry mouth Stop: 11/16/18 08:31 Last Admin: 11/14/18 09:17 Dose: 0.5 ea - Labs Labs: 11/15/18 06:15 11/15/18 06:15 PT 14.3 SECONDS (9.7-12.2) H 02/04/19 05:52 INR 1.3 11/05/18 05:52 APTT 43 SECONDS (21-34) H 11/05/18 05:52
--- NOTE | 2018-11-16 06:43 | CP.PCM.PN ---
Subjective - Date & Time of Evaluation Date of Evaluation: 11/14/18 Time of Evaluation: 15:10 - Subjective Subjective: Patient seen and examined at bedside Unresponsive to commands S/P Perma cath replacement Physical Examination - Physical Exam Head: Positive for: Atraumatic, Normocephalic Extroacular Muscles: Positive for: EOMI (dropping eyelid left) Conjunctiva: Positive for: Normal Mouth: Positive for: Dry Pharnyx: Positive for: ERYTHEMA (erythemia around lips) Neck: Positive for: Other (tracheostomy in place with vent, trialysis cath on left side neck area ) Respiratory/Chest: Positive for: Decreased Breath Sounds, Other (intubated ). Negative for: Respiratory Distress, Accessory Muscle Use, Tachypneic Cardiovascular: Positive for: Regular Rate and Rhythm, Normal S1, S2 Abdomen: Positive for: Normal Bowel Sounds, Other (PEG tube in place ). Negative for: Tenderness, Distention, Rebound, Guarding Back: Positive for: Decubitus Ulcer (unstagable) Upper Extremity: Positive for: Normal Inspection. Negative for: Cyanosis, Edema Lower Extremity: Positive for: Normal Inspection. Negative for: Edema Neurological: Negative for: GCS=15, CN II-XII Intact, Speech Normal Skin: Positive for: Warm, Dry, Normal Color Psychiatric: Negative for: Alert, Oriented x 3, Normal Insight, Normal Concentration Assessment and Plan - Assessment and Plan (Free Text) Assessment: Patient is a 72 year old female with PMHx of CKD, CHF, CAD s/p stents, pituitary adenoma a/p resection, DM, who was admitted for respiratory and cardiac arrest s/p permacath placement and AVF on 10/05; possible AMS due to anoxic brain injury, now on HD MWF, tracheostomy on 10/18/17, PEG tube placement 10/23/18. Patient became hypotensive overnight and upgraded to ICU. Permacath removed by surgery on 10/30. A trialysis catheter inserted but dialysis reported the line was not function. A IJ central line inserted for dialysis access. Pt had a LP yesterday (11/05) to r/o meningitis. Pt continues to have diarrhea, feeds changed to Glucerna. The left IJ catheter inserted 11/01 for dialysis was repositioned yesterday due to poor blood return. Patients family made decision to make patient DNR (11/08) after long discussion regarding goals of care. Patient remains intubated and patients family still remains without decision regarding terminal extubation. Patient continues to have diarrhea; rectal tube remains in place. Patient to go to OR today for permacath placement for dialysis. Plan: Neuro - Intubated, agitated - No sedation - continue Keppra and valproate as per neuro - Lumbar puncture 11/05: WBC 1.0, Glucose 129, RBC 0, Total protein 56 - CSF - negative for herpes I&II, HIV, West Nile, VDRL - f/u Neuro recs Cardiac - Hypertension, improved - continue Norvasc 5mg daily - Echo 11/01: Left Ventricle systolic function is normal; EF is 55-60%; hypertensive heart disease; diastolic dysfunction; no AR, MR, pulmonary hypertension; trace to mild tricuspid regurgitation. - continue to monitor vitals - continue Crestor 10mg, ASA 81mg Pulm - Intubated, current vent settings PRVC 14/450/5/35 - Pressure support trials - CXR 11/08: No acute infiltrate pleural effusion identified GI - PEG tube in place - Tube feeds changed to Glucerna at rate of 20ml/hr due to diarrhea - rectal tube in place - protonix ppx - CT abdomen/pelvis 10/30: fluid and gas filled distended rectum versus perirectal abscess. Evidence of anastomotic bowel suture material and/or rectal tube/packing material. - per surgery, no intervention at this time Renal - Dialysis today after OR - HD schedule: TTHS - OR today for permacath placement for dialysis - continue Procrit Endo - Hx of Hypothyroidism, continue levothyroxine 50mg - Hx of DM, continue ISS - insulin held on 11/12 due to hypoglycemia - Accuchecks Q6H Heme - H/H 9.2.7 - monitor CBC ID - Febrile, Tmax 100.6F - WBC 8.3 today, continue to monitor - f/u stool cx, blood cx, urine cx - f/u c.difficle toxin - continue Abx: Meropenem, Flagyl, Vanco - 10/30 Tracheostomy site, sputum cx positive: Romina Albicans - continue Micafungin 100mg - Nystatin powder for fungal rash on chest - Decubitus Ulcer, unstageable; wound care following - Consult Surgery to re-evaluate perirectal abscess following ceretec scan results - surgery - nothing to do at this point - ESR (+) 99 (2/5) - CRP (+) 155.70 (2/5) - f/u ID recs Rheum - JERRY negative (2/5) PPx - Protonix for GI ppx - DVT ppx: SCDs, Heparin SC - Tylenol PRN for fever - Hypoglycemic protocol PRN Objective - Vital Signs/Intake and Output Vital Signs (last 24 hours): Temp Pulse Resp BP Pulse Ox 97.4 F L 94 H 22 117/52 L 96 11/16/18 00:00 11/16/18 00:00 11/16/18 00:00 11/16/18 00:00 11/16/18 00:00 Intake and Output: 11/15/18 11/16/18 18:59 06:59 Intake Total 45 560 Balance 45 560 - Medications Medications: Current Medications Acetaminophen (Tylenol 650mg/20.3ml Solution Ud) 650 mg PO Q6 PRN PRN Reason: pain+fever Last Admin: 11/12/18 17:07 Dose: 650 mg Acyclovir (Zovirax 5% Oint) 1 gm EXT Q3H [facility] Last Admin: 11/15/18 19:05 Dose: 1 applic Amlodipine Besylate (Norvasc) 5 mg PO DAILY [facility] Last Admin: 11/15/18 13:28 Dose: 5 mg Aspirin (Aspirin Chewable) 81 mg PO DAILY [facility] Last Admin: 11/15/18 13:27 Dose: 81 mg Dextrose (Dextrose 50% Inj) 0 ml IV STAT PRN; Protocol PRN Reason: Hypoglycemia Protocol Dextrose (Glutose 15) 0 gm PO ONCE PRN; Protocol PRN Reason: Hypoglycemia Protocol Epoetin Dedrick (Procrit) 10,000 unit IV TTS [facility] Last Admin: 11/15/18 11:35 Dose: 10,000 unit Glucagon (Glucagen Diagnostic Kit) 0 mg IM STAT PRN; Protocol PRN Reason: Hypoglycemia Protocol Heparin Sodium (Porcine) (Heparin) 5,000 units SC Q8 [facility] Last Admin: 11/16/18 06:30 Dose: 5,000 units Meropenem 500 mg/ Sodium (Chloride) 100 mls @ 100 mls/hr IVPB DAILY [facility]; Protocol Last Admin: 11/14/18 09:16 Dose: 100 mls/hr Micafungin Sodium 100 mg/ (Dextrose) 100 mls @ 100 mls/hr IV Q24H [facility]; Protocol Last Admin: 11/14/18 18:01 Dose: 100 mls/hr Metronidazole (Flagyl) 500 mg in 100 mls @ 100 mls/hr IVPB Q8H [facility]; Protocol Last Admin: 11/14/18 17:00 Dose: 100 mls/hr Dextrose (Dextrose 5% In Water 1000 Ml) 1,000 mls @ 0 mls/hr IV .Q0M PRN; Protocol PRN Reason: Hypoglycemia Protocol Insulin Aspart (Novolog) 0 unit SC Q6H [facility]; Protocol Last Admin: 11/16/18 06:28 Dose: 12 units Levetiracetam (Keppra) 1,000 mg PO BID [facility] Last Admin: 11/15/18 18:58 Dose: 1,000 mg Levothyroxine Sodium (Synthroid) 50 mcg PO 0600 [facility] Last Admin: 11/15/18 05:17 Dose: 50 mcg Methylprednisolone (Solu-Medrol) 40 mg IVP Q12 [facility] Stop: 11/17/18 22:01 Last Admin: 11/15/18 22:07 Dose: 40 mg Nystatin (Nystop Topical Powder) 1 applic TOP BID [facility] Last Admin: 11/15/18 19:04 Dose: 1 applic Pantoprazole Sodium (Protonix Susp) 40 mg PO 0600 [facility] Last Admin: 11/15/18 05:17 Dose: 40 mg Rosuvastatin Calcium (Crestor) 10 mg PO HS [facility] Last Admin: 11/15/18 22:07 Dose: 10 mg Saccharomyces Boulardii (Florastor) 250 mg PO TID [facility] Last Admin: 11/15/18 10:00 Dose: Not Given Sevelamer Carbonate (Renvela) 0.8 gm PEG TIDCC [facility] Last Admin: 11/15/18 18:59 Dose: 0.8 gm Vitamin A (Vitamin A & D Oint Ud Foilpak) 0.5 ea TOP Q4 PRN PRN Reason: Dry mouth Stop: 11/16/18 08:31 Last Admin: 11/14/18 09:17 Dose: 0.5 ea - Labs Labs: 11/15/18 06:15 11/15/18 06:15 PT 14.3 SECONDS (9.7-12.2) H 02/04/19 05:52 INR 1.3 11/05/18 05:52 APTT 43 SECONDS (21-34) H 11/05/18 05:52
[2018-11-16] MEDS: Sevelamer Carb 0.8 gm/Packet PEG SCH ×3 (08:00→22:02)
[2018-11-16 08:03] LABS: BASO % 0.3 % (0.0-2.0); HEMOGLOBIN 8.5 g/dL (11.0-16.0); LYMPH # 0.5 K/uL (1.0-4.3); LYMPH % 7.2 % (20.0-40.0); MEAN CORPUSCULAR HEMOGLOBIN 27.8 pg (27.0-31.0); MEAN CORPUSCULAR HGB CONC 30.2 g/dL (33.0-37.0); MEAN PLATELET VOLUME 10.2 fL (7.2-11.7); MONO # 0.2 K/uL (0.0-0.8); MONO % 3.5 % (0.0-10.0); NEUT # 6.4 K/uL (1.8-7.0); NRBC % 0.1 % (0.0-2.0); PLATELET COUNT 230 K/uL (130-400); RBC 3.07 Mil/uL (3.80-5.20); RED CELL DISTRIBUTION WIDTH 21.2 % (11.5-14.5); WHITE BLOOD COUNT 7.2 K/uL (4.8-10.8)
--- NOTE | 2018-11-16 08:12 | PN ---
DATE: 11/16/2018 TIME OF EVALUATION: 07:15 a.m. NEUROLOGICAL PROBLEM: Anoxic encephalopathy with history of seizures, been controlled, status post tracheostomy and PEG with supportive care. VITAL SIGNS: Blood pressure 117/52, mean artery pressure of 73, respiratory rate is 18, pulse rate 94, temperature 97.7. The patient is obtunded, responds to pain symmetrically on both sides. Moving left side more than her right side. Deep tendon reflexes are absent. Plantars are upgoing left more than her right side. The patient attained irreversible neurological deficit because of the hypoxic or anoxic insult. The patient also complicated with multiorgan failure. The patient is on supportive care, continuing her hemodialysis. Her antibiotics are all being held. Continue the supportive care at present. Blu Yost MD
[2018-11-16 08:21] LABS: ALBUMIN 2.9 g/dL (3.5-5.0)
[2018-11-16 10:02] LABS: ANISOCYTOSIS MODERATE; BANDS 1 % (0-2); LYMPHOCYTE 6 % (20-40); MONOCYTE 2 % (0-10); NEUTROPHIL 91 % (50-75); PLATELET ESTIMATE NORMAL (NORMAL); TOTAL CELLS COUNTED 100
[2018-11-16 10:03] LABS: HYPOCHROMIC SLIGHT; STOMATOCYTES SLIGHT
[2018-11-16] MEDS: (Lantus) Insulin Glargine, Recombinant SC SCH ×2 (11:16→22:01)
[2018-11-16] MEDS: Saccharomyces Boulardi 250 mg Cap PO SCH ×3 (11:17→17:35)
[2018-11-16] MEDS: MethylPREDNISolone 40 mg Vial IVP SCH ×2 (11:17→22:10)
--- NOTE | 2018-11-16 11:40 | RAD ---
HISTORY: pna COMPARISON: Chest x-ray performed 11/13/18, CT chest, abdomen, pelvis without IV contrast performed 10/30/18 TECHNIQUE: Chest, one view. FINDINGS: Examination limited by habitus, hypoinflation, and patient obliquity. Tracheostomy tube. Right IJ approach central venous catheter with distal tips terminating at the SVC and right atrium. LUNGS: Bilateral hilar prominence. Mild pulmonary venous congestion. Please note that chest x-ray has limited sensitivity for the detection of pulmonary masses. PLEURA: No significant pleural effusion identified. No definite pneumothorax . CARDIOVASCULAR: Cardiomegaly. Ectatic aorta containing atherosclerotic calcifications. OSSEOUS STRUCTURES: Degenerative changes of the spine. VISUALIZED UPPER ABDOMEN: Unremarkable. OTHER FINDINGS: None. IMPRESSION: Limited study as above. Right IJ approach central venous catheter. Tracheostomy tube. Mild pulmonary venous congestion. Bilateral hilar prominence. Cardiomegaly. Ectatic aorta containing atherosclerotic calcifications.
[2018-11-16] MEDS: levETIRAcetam 100 mg/ml (5ml) Oral Syringe PO SCH ×2 (12:55→17:58)
[2018-11-16] MEDS: metroNIDAZOLE IV 500 mg/100 ml 500 MG/100 ML BAG IVPB SCH (17:34)
[2018-11-16] MEDS: Acetaminophen 650mg/20.3ml solution UD PO PRN (17:36)
[2018-11-16] MEDS: Micafungin 100 MG in Sodium Chloride 0.9% 100 ML IV SCH (19:35)
--- NOTE | 2018-11-16 21:33 | CP.PCM.PN ---
Subjective - Date & Time of Evaluation Date of Evaluation: 11/16/18 Time of Evaluation: 21:32 - Subjective Subjective: is patient this morning had an episode of fever of 103. I just restarted the antibiotic at this time. Patient condition remains the same. Blood sugar is also very highly elevated. Overall prognosis very poor. I discussed with the patient daughter. Meanwhile will continue the current treatment. I discussed wound care management, for possible wound VAC for the pelvic area. And will follow the patient Objective - Vital Signs/Intake and Output Vital Signs (last 24 hours): Temp Pulse Resp BP Pulse Ox 101.3 F H 106 H 20 154/71 H 97 11/16/18 19:04 11/16/18 15:00 11/16/18 15:00 11/16/18 15:00 11/16/18 15:00 - Medications Medications: Current Medications Acetaminophen (Tylenol 650mg/20.3ml Solution Ud) 650 mg PO Q6 PRN PRN Reason: pain+fever Last Admin: 11/16/18 17:36 Dose: 650 mg Acyclovir (Zovirax 5% Oint) 1 gm EXT Q3H [facility] Last Admin: 11/16/18 14:50 Dose: 1 applic Amlodipine Besylate (Norvasc) 5 mg PO DAILY [facility] Last Admin: 11/16/18 11:15 Dose: 5 mg Aspirin (Aspirin Chewable) 81 mg PO DAILY [facility] Last Admin: 11/16/18 11:19 Dose: 81 mg Dextrose (Dextrose 50% Inj) 0 ml IV STAT PRN; Protocol PRN Reason: Hypoglycemia Protocol Dextrose (Glutose 15) 0 gm PO ONCE PRN; Protocol PRN Reason: Hypoglycemia Protocol Epoetin Dedrick (Procrit) 10,000 unit IV TTS [facility] Last Admin: 11/15/18 11:35 Dose: 10,000 unit Glucagon (Glucagen Diagnostic Kit) 0 mg IM STAT PRN; Protocol PRN Reason: Hypoglycemia Protocol Heparin Sodium (Porcine) (Heparin) 5,000 units SC Q8 [facility] Last Admin: 11/16/18 13:02 Dose: 5,000 units Meropenem 500 mg/ Sodium (Chloride) 100 mls @ 100 mls/hr IVPB DAILY [facility]; Pr otocol Last Admin: 11/14/18 09:16 Dose: 100 mls/hr Metronidazole (Flagyl) 500 mg in 100 mls @ 100 mls/hr IVPB Q8H [facility]; Protocol Last Admin: 11/16/18 17:34 Dose: 100 mls/hr Dextrose (Dextrose 5% In Water 1000 Ml) 1,000 mls @ 0 mls/hr IV .Q0M PRN; Protocol PRN Reason: Hypoglycemia Protocol Micafungin Sodium 100 mg/ (Sodium Chloride) 100 mls @ 100 mls/hr IV Q24H [facility]; Protocol Last Admin: 11/16/18 19:35 Dose: 100 mls/hr Insulin Aspart (Novolog) 0 unit SC Q6H [facility]; Protocol Last Admin: 11/16/18 17:58 Dose: 12 units Insulin Glargine (Lantus) 15 unit SC Q12 [facility] Last Admin: 11/16/18 11:16 Dose: 15 units Levetiracetam (Keppra) 1,000 mg PO BID [facility] Last Admin: 11/16/18 17:58 Dose: 1,000 mg Levothyroxine Sodium (Synthroid) 50 mcg PO 0600 [facility] Last Admin: 11/15/18 05:17 Dose: 50 mcg Methylprednisolone (Solu-Medrol) 40 mg IVP Q12 [facility] Stop: 11/17/18 22:01 Last Admin: 11/16/18 11:17 Dose: 40 mg Nystatin (Nystop Topical Powder) 1 applic TOP BID [facility] Last Admin: 11/16/18 17:39 Dose: 1 applic Pantoprazole Sodium (Protonix Susp) 40 mg PO 0600 [facility] Last Admin: 11/15/18 05:17 Dose: 40 mg Rosuvastatin Calcium (Crestor) 10 mg PO HS [facility] Last Admin: 11/15/18 22:07 Dose: 10 mg Saccharomyces Boulardii (Florastor) 250 mg PO TID [facility] Last Admin: 11/16/18 17:35 Dose: 250 mg Sevelamer Carbonate (Renvela) 0.8 gm PEG TIDCC [facility] Last Admin: 11/16/18 11:16 Dose: 0.8 gm - Labs Labs: 11/16/18 07:30 11/16/18 07:30 PT 14.3 SECONDS (9.7-12.2) H 11/05/18 05:52 INR 1.3 11/05/18 05:52 APTT 43 SECONDS (21-34) H 11/05/18 05:52 Assessment and Plan (1) Acute on chronic renal failure Status: Acute (2) Diabetic nephropathy associated with type 2 diabetes mellitus Status: Acute (3) Uremia, acute Status: Acute
[2018-11-17] MEDS: (Novolog) Insulin Aspart, Recombinant 100 u/ml 10 ml vial SC SCH ×5 (00:24→23:58)
[2018-11-17] MEDS: Acyclovir 5% Oint (15 gm) EXT SCH ×11 (00:32→23:51)
[2018-11-17] MEDS: metroNIDAZOLE IV 500 mg/100 ml 500 MG/100 ML BAG IVPB SCH ×4 (00:32→23:48)
[2018-11-17] MEDS: Acetaminophen 650mg/20.3ml solution UD PO PRN ×2 (01:29→15:37)
[2018-11-17] MEDS: Pantoprazole 40 mg Susp UD PO SCH (06:02)
[2018-11-17] MEDS: Levothyroxine 50 MCG TAB PO SCH (06:08)
[2018-11-17 07:35] LABS: BASO # 0.1 K/uL (0.0-0.2); BASO % 0.8 % (0.0-2.0); EOS # 0.1 K/uL (0.0-0.7); EOS % 0.5 % (0.0-4.0); HEMOGLOBIN 8.5 g/dL (11.0-16.0); LYMPH % 8.9 % (20.0-40.0); MEAN CELL VOLUME 92.5 fL (81.0-99.0); MEAN CORPUSCULAR HEMOGLOBIN 28.1 pg (27.0-31.0); MEAN CORPUSCULAR HGB CONC 30.4 g/dL (33.0-37.0); MONO # 0.3 K/uL (0.0-0.8); MONO % 2.9 % (0.0-10.0); NEUT # 10.1 K/uL (1.8-7.0); NEUT % 86.9 % (50.0-75.0); NRBC % 0.1 % (0.0-2.0); PLATELET COUNT 227 K/uL (130-400); RBC 3.02 Mil/uL (3.80-5.20); RED CELL DISTRIBUTION WIDTH 20.2 % (11.5-14.5)
[2018-11-17 07:58] LABS: WHITE BLOOD COUNT 11.6 K/uL (4.8-10.8)
[2018-11-17] MEDS: Sevelamer Carb 0.8 gm/Packet PEG SCH ×3 (08:28→18:10)
--- NOTE | 2018-11-17 08:35 | CP.PCM.PN ---
Subjective - Date & Time of Evaluation Date of Evaluation: 11/17/18 Time of Evaluation: 08:32 - Subjective Subjective: pt seen and examined no on floors on vent, FIo2 40% unresponsive noted elevated BS- > 500 ROS- unable to obtain as pt unresponsive Objective - Vital Signs/Intake and Output Vital Signs (last 24 hours): Temp Pulse Resp BP Pulse Ox 98.5 F 88 20 131/84 99 11/17/18 07:43 11/17/18 07:43 11/17/18 07:43 11/17/18 07:43 11/17/18 07:43 Intake and Output: 11/17/18 11/17/18 06:59 18:59 Intake Total 1070 Balance 1070 - Medications Medications: Current Medications Acetaminophen (Tylenol 650mg/20.3ml Solution Ud) 650 mg PO Q6 PRN PRN Reason: pain+fever Last Admin: 11/17/18 01:29 Dose: 650 mg Acyclovir (Zovirax 5% Oint) 1 gm EXT Q3H [facility] Last Admin: 11/17/18 06:17 Dose: 1 applic Amlodipine Besylate (Norvasc) 5 mg PO DAILY [facility] Last Admin: 11/16/18 11:15 Dose: 5 mg Aspirin (Aspirin Chewable) 81 mg PO DAILY [facility] Last Admin: 11/16/18 11:19 Dose: 81 mg Dextrose (Dextrose 50% Inj) 0 ml IV STAT PRN; Protocol PRN Reason: Hypoglycemia Protocol Dextrose (Glutose 15) 0 gm PO ONCE PRN; Protocol PRN Reason: Hypoglycemia Protocol Epoetin Dedrick (Procrit) 10,000 unit IV TTS [facility] Last Admin: 11/15/18 11:35 Dose: 10,000 unit Glucagon (Glucagen Diagnostic Kit) 0 mg IM STAT PRN; Protocol PRN Reason: Hypoglycemia Protocol Heparin Sodium (Porcine) (Heparin) 5,000 units SC Q8 [facility] Last Admin: 11/17/18 06:14 Dose: 5,000 units Meropenem 500 mg/ Sodium (Chloride) 100 mls @ 100 mls/hr IVPB DAILY [facility]; Protocol Last Admin: 11/14/18 09:16 Dose: 100 mls/hr Metronidazole (Flagyl) 500 mg in 100 mls @ 100 mls/hr IVPB Q8H [facility]; Protocol Last Admin: 11/17/18 08:29 Dose: 100 mls/hr Dextrose (Dextrose 5% In Water 1000 Ml) 1,000 mls @ 0 mls/hr IV .Q0M PRN; Protocol PRN Reason: Hypoglycemia Protocol Micafungin Sodium 100 mg/ (Sodium Chloride) 100 mls @ 100 mls/hr IV Q24H [facility]; Protocol Last Admin: 11/16/18 19:35 Dose: 100 mls/hr Insulin Aspart (Novolog) 0 unit SC Q6H [facility]; Protocol Last Admin: 11/17/18 06:45 Dose: 12 units Insulin Glargine (Lantus) 15 unit SC Q12 [facility] Last Admin: 11/16/18 22:01 Dose: 15 units Levetiracetam (Keppra) 1,000 mg PO BID [facility] Last Admin: 11/16/18 17:58 Dose: 1,000 mg Levothyroxine Sodium (Synthroid) 50 mcg PO 0600 [facility] Last Admin: 11/17/18 06:08 Dose: 50 mcg Methylprednisolone (Solu-Medrol) 40 mg IVP Q12 [facility] Stop: 11/17/18 22:01 Last Admin: 11/16/18 22:10 Dose: 40 mg Nystatin (Nystop Topical Powder) 1 applic TOP BID [facility] Last Admin: 11/16/18 17:39 Dose: 1 applic Pantoprazole Sodium (Protonix Susp) 40 mg PO 0600 [facility] Last Admin: 11/17/18 06:02 Dose: 40 mg Rosuvastatin Calcium (Crestor) 10 mg PO HS [facility] Last Admin: 11/16/18 22:00 Dose: 10 mg Saccharomyces Boulardii (Florastor) 250 mg PO TID [facility] Last Admin: 11/16/18 17:35 Dose: 250 mg Sevelamer Carbonate (Renvela) 0.8 gm PEG TIDCC [facility] Last Admin: 11/17/18 08:28 Dose: 0.8 gm - Labs Labs: 11/17/18 07:24 11/16/18 07:30 PT 14.3 SECONDS (9.7-12.2) H 11/05/18 05:52 INR 1.3 11/05/18 05:52 APTT 43 SECONDS (21-34) H 11/05/18 05:52 - Constitutional Appears: Non-toxic, No Acute Distress, Chronically Ill - Head Exam Head Exam: ATRAUMATIC, NORMOCEPHALIC - Eye Exam Eye Exam: EOMI, PERRL - ENT Exam ENT Exam: Mucous Membranes Dry Additional comments: tach in place - Neck Exam Neck Exam: absent: Lymphadenopathy - Respiratory Exam Respiratory Exam: Clear to Ausculation Bilateral. absent: Rhonchi, Wheezes - Cardiovascular Exam Cardiovascular Exam: REGULAR RHYTHM, +S1, +S2 - GI/Abdominal Exam GI & Abdominal Exam: Soft. absent: Tenderness Additional comments: PEG in place - Extremities Exam Extremities Exam: absent: Pedal Edema Additional comments: boots in both legs - Neurological Exam Neurological Exam: absent: Alert, Awake, Oriented x3 - Skin Skin Exam: Warm Additional comments: rash on cheek , lips and right arm Assessment and Plan (1) Diabetic nephropathy associated with type 2 diabetes mellitus Status: Acute (2) ESRD (end stage renal disease) Status: Acute (3) Respiratory failure Status: Acute (4) Altered mental state Status: Acute (5) CAD (coronary artery disease) Status: Acute (6) Cardiomyopathy Status: Acute - Assessment and Plan (Free Text) Plan: HD today maintain TTS dialysis needs blood sugar control supportive care
[2018-11-17 09:25] LABS: BANDS 2 % (0-2); LYMPHOCYTE 9 % (20-40); MONOCYTE 3 % (0-10); NEUTROPHIL 86 % (50-75); PLATELET ESTIMATE NORMAL (NORMAL); TOTAL CELLS COUNTED 100
[2018-11-17 09:26] LABS: ANISOCYTOSIS MODERATE; HYPOCHROMIC SLIGHT
[2018-11-17] MEDS: (Lantus) Insulin Glargine, Recombinant SC SCH ×2 (10:53→22:01)
[2018-11-17] MEDS: Saccharomyces Boulardi 250 mg Cap PO SCH ×2 (10:54→18:08)
[2018-11-17] MEDS: levETIRAcetam 100 mg/ml (5ml) Oral Syringe PO SCH ×2 (10:57→19:52)
[2018-11-17] MEDS: MethylPREDNISolone 40 mg Vial IVP SCH ×2 (10:57→22:04)
[2018-11-17] MEDS: Meropenem 500 MG in Sodium Chloride 0.9% 100 ML IVPB SCH (10:59)
[2018-11-17] MEDS: Epoetin Alfa 10,000 unit/ml Dialysis IV SCH (18:10)
[2018-11-17] MEDS: Micafungin 100 MG in Sodium Chloride 0.9% 100 ML IV SCH (19:52)
--- NOTE | 2018-11-17 21:14 | CP.PCM.PN ---
Subjective - Date & Time of Evaluation Date of Evaluation: 11/17/18 Time of Evaluation: 14:00 - Subjective Subjective: dictated Objective - Vital Signs/Intake and Output Vital Signs (last 24 hours): Temp Pulse Resp BP Pulse Ox 99.8 F H 92 H 25 H 84/58 L 100 11/17/18 18:55 11/17/18 18:55 11/17/18 18:55 11/17/18 18:55 11/17/18 18:55 Intake and Output: 11/17/18 11/18/18 18:59 06:59 Intake Total 560 Output Total 0 Balance 560 - Medications Medications: Current Medications Acetaminophen (Tylenol 650mg/20.3ml Solution Ud) 650 mg PO Q6 PRN PRN Reason: pain+fever Last Admin: 11/17/18 15:37 Dose: 650 mg Acyclovir (Zovirax 5% Oint) 1 gm EXT Q3H [facility] Last Admin: 11/17/18 18:37 Dose: 1 applic Amlodipine Besylate (Norvasc) 5 mg PO DAILY [facility] Last Admin: 11/17/18 10:56 Dose: 5 mg Aspirin (Aspirin Chewable) 81 mg PO DAILY [facility] Last Admin: 11/17/18 10:57 Dose: 81 mg Dextrose (Dextrose 50% Inj) 0 ml IV STAT PRN; Protocol PRN Reason: Hypoglycemia Protocol Dextrose (Glutose 15) 0 gm PO ONCE PRN; Protocol PRN Reason: Hypoglycemia Protocol Epoetin Dedrick (Procrit) 10,000 unit IV TTS [facility] Last Admin: 11/17/18 18:10 Dose: 10,000 unit Glucagon (Glucagen Diagnostic Kit) 0 mg IM STAT PRN; Protocol PRN Reason: Hypoglycemia Protocol Heparin Sodium (Porcine) (Heparin) 5,000 units SC Q8 [facility] Last Admin: 11/17/18 14:46 Dose: 5,000 units Meropenem 500 mg/ Sodium (Chloride) 100 mls @ 100 mls/hr IVPB DAILY [facility]; Protocol Last Admin: 11/17/18 10:59 Dose: 100 mls/hr Metronidazole (Flagyl) 500 mg in 100 mls @ 100 mls/hr IVPB Q8H [facility]; Protocol Last Admin: 11/17/18 18:08 Dose: Not Given Micafungin Sodium 100 mg/ (Sodium Chloride) 100 mls @ 100 mls/hr IV Q24H [facility]; P rotocol Last Admin: 11/17/18 19:52 Dose: 100 mls/hr Insulin Aspart (Novolog) 0 unit SC Q6H [facility]; Protocol Last Admin: 11/17/18 18:12 Dose: 6 units Insulin Glargine (Lantus) 15 unit SC Q12 [facility] Last Admin: 11/17/18 10:53 Dose: 15 units Levetiracetam (Keppra) 1,000 mg PO BID [facility] Last Admin: 11/17/18 19:52 Dose: 1,000 mg Levothyroxine Sodium (Synthroid) 50 mcg PO 0600 [facility] Last Admin: 11/17/18 06:08 Dose: 50 mcg Methylprednisolone (Solu-Medrol) 40 mg IVP Q12 [facility] Stop: 11/17/18 22:01 Last Admin: 11/17/18 10:57 Dose: 40 mg Nystatin (Nystop Topical Powder) 1 applic TOP BID [facility] Last Admin: 11/17/18 18:17 Dose: 1 applic Pantoprazole Sodium (Protonix Susp) 40 mg PO 0600 [facility] Last Admin: 11/17/18 06:02 Dose: 40 mg Rosuvastatin Calcium (Crestor) 10 mg PO HS [facility] Last Admin: 11/16/18 22:00 Dose: 10 mg Saccharomyces Boulardii (Florastor) 250 mg PO TID [facility] Last Admin: 11/17/18 18:08 Dose: Not Given Sevelamer Carbonate (Renvela) 0.8 gm PEG TIDCC [facility] Last Admin: 11/17/18 18:10 Dose: Not Given - Labs Labs: 11/17/18 07:24 11/16/18 07:30 PT 14.3 SECONDS (9.7-12.2) H 11/05/18 05:52 INR 1.3 11/05/18 05:52 APTT 43 SECONDS (21-34) H 11/05/18 05:52
--- NOTE | 2018-11-17 22:45 | PN ---
DATE: 11/17/2018 SUBJECTIVE: The patient was seen today. Her daughters were at the bedside. She still remains obtunded and there was less movement of her arms. She was on a trach ventilator. The patient did have high fever yesterday, one episode of 103, this morning was 101.1, and 101.1 this afternoon. The patient has a trach. OBJECTIVE: HEENT: Head is atraumatic. NECK: Supple. LUNGS: Clear. Occasional rhonchi. HEART: S1, S2, is regular. ABDOMEN: Soft, flabby, PEG tube present. EXTREMITIES: Remain with foot protectors. She does have sacral decubitus. Her blood pressure has improved since morning now. I did discuss the patient with the family who are waiting for a miracle. White count is 11.6, hemoglobin 8.5, hematocrit 28, platelet count is 227, and neutrophils are 86.9. These are labs from today. Neutrophils are still 86, bands are 2. Chemistry shows, there is no new chemistry, but her sugars have been running high. C. diff was again done on 11/12 which was negative. She has a new dialysis catheter on her right side now as the other one was clotting. She is off vancomycin. Her lips show some lesions. I thought the fevers could be related to the rectal abscess as well as she was reacting to vancomycin having lip sores and her tongue was getting swollen, hence it was discontinued. She remains on meropenem, Flagyl and Mycamine at this time. She is on Zovirax cream which is applied today. We will see if she continues to have fever, maybe we will add acyclovir IV, but she does also have a sacral decubitus, there is a rectal abscess and she remains anoxic on the trach vent at this time, but all recent cultures are negative at this time. Even the CSF came out no growth. Prognosis still remains guarded. The patient's family is mentally preparing for any consequences that may happen and we will follow. Sara Barrios MD
[2018-11-18] MEDS: Acetaminophen 650mg/20.3ml solution UD PO PRN ×2 (01:07→05:39)
[2018-11-18] MEDS: Acyclovir 5% Oint (15 gm) EXT SCH ×7 (04:38→21:20)
[2018-11-18] MEDS: Pantoprazole 40 mg Susp UD PO SCH (05:38)
[2018-11-18] MEDS: Levothyroxine 50 MCG TAB PO SCH (05:39)
[2018-11-18] MEDS: (Novolog) Insulin Aspart, Recombinant 100 u/ml 10 ml vial SC SCH ×4 (06:02→23:58)
[2018-11-18] MEDS: metroNIDAZOLE IV 500 mg/100 ml 500 MG/100 ML BAG IVPB SCH ×2 (08:16→16:19)
[2018-11-18] MEDS: Sevelamer Carb 0.8 gm/Packet PEG SCH ×3 (08:17→17:50)
[2018-11-18] MEDS: Meropenem 500 MG in Sodium Chloride 0.9% 100 ML IVPB SCH (10:02)
[2018-11-18] MEDS: (Lantus) Insulin Glargine, Recombinant SC SCH ×2 (10:03→21:19)
[2018-11-18] MEDS: Saccharomyces Boulardi 250 mg Cap PO SCH ×3 (10:05→18:02)
[2018-11-18] MEDS: levETIRAcetam 100 mg/ml (5ml) Oral Syringe PO SCH ×2 (10:05→18:03)
--- NOTE | 2018-11-18 17:03 | CP.PCM.PN ---
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 Patient had a fever of 103. The antibiotic was restarted. Seen by infectious disease also. Patient is having unstageable wound in the sacral decubiti region noted. Receiving hemodialysis. Patient is not having any acute illness otherwise. On ventilator at this time. Full support ventilation. Unable to wean because of the temperature high On examination: Thick secretions noted from the endotracheal tube. Febrile illness. Labs ordered. Reviewed On antibiotic We will continue the current treatment. 72-year-old female with a history of diabetes hypertension CAD hypercholesterolemia end-stage renal disease now on dialysis. Overall prognosis very poor. DNR will follow the patient Objective - Vital Signs/Intake and Output Vital Signs (last 24 hours): Temp Pulse Resp BP Pulse Ox 98.1 F 78 20 107/66 100 11/18/18 15:46 11/18/18 15:46 11/18/18 15:46 11/18/18 15:46 11/18/18 15:46 Intake and Output: 11/18/18 11/18/18 06:59 18:59 Intake Total 610 1140 Output Total 0 Balance 610 1140 - Medications Medications: Current Medications Acetaminophen (Tylenol 650mg/20.3ml Solution Ud) 650 mg PO Q6 PRN PRN Reason: pain+fever Last Admin: 11/18/18 05:39 Dose: 650 mg Acyclovir (Zovirax 5% Oint) 1 gm EXT Q3H [facility] Last Admin: 11/18/18 16:20 Dose: 1 applic Amlodipine Besylate (Norvasc) 5 mg PO DAILY [facility] Last Admin: 11/18/18 10:05 Dose: 5 mg Aspirin (Aspirin Chewable) 81 mg PO DAILY [facility] Last Admin: 11/18/18 10:05 Dose: 81 mg Dextrose (Dextrose 50% Inj) 0 ml IV STAT PRN; Protocol PRN Reason: Hypoglycemia Protocol Dextrose (Glutose 15) 0 gm PO ONCE PRN; Protocol PRN Reason: Hypoglycemia Protocol Epoetin Dedrick (Procrit) 10,000 unit IV TTS [facility] Last Admin: 11/17/18 18:10 Dose: 10,000 unit Glucagon (Glucagen Diagnostic Kit) 0 mg IM STAT PRN; Protocol PRN Reason: Hypoglycemia Protocol Heparin Sodium (Porcine) (Heparin) 5,000 units SC Q8 [facility] Last Admin: 11/18/18 14:12 Dose: 5,000 units Meropenem 500 mg/ Sodium (Chloride) 100 mls @ 100 mls/hr IVPB DAILY [facility]; Protocol Last Admin: 11/18/18 10:02 Dose: 100 mls/hr Metronidazole (Flagyl) 500 mg in 100 mls @ 100 mls/hr IVPB Q8H [facility]; Protocol Last Admin: 11/18/18 16:19 Dose: 100 mls/hr Micafungin Sodium 100 mg/ (Sodium Chloride) 100 mls @ 100 mls/hr IV Q24H [facility]; Protocol Last Admin: 11/17/18 19:52 Dose: 100 mls/hr Insulin Aspart (Novolog) 0 unit SC Q6H [facility]; Protocol Last Admin: 11/18/18 11:55 Dose: 12 units Insulin Glargine (Lantus) 15 unit SC Q12 [facility] Last Admin: 11/18/18 10:03 Dose: 15 units Levetiracetam (Keppra) 1,000 mg PO BID [facility] Last Admin: 11/18/18 10:05 Dose: 1,000 mg Levothyroxine Sodium (Synthroid) 50 mcg PO 0600 [facility] Last Admin: 11/18/18 05:39 Dose: 50 mcg Nystatin (Nystop Topical Powder) 1 applic TOP BID [facility] Last Admin: 11/18/18 10:14 Dose: 1 applic Pantoprazole Sodium (Protonix Susp) 40 mg PO 0600 [facility] Last Admin: 11/18/18 05:38 Dose: 40 mg Rosuvastatin Calcium (Crestor) 10 mg PO HS [facility] Last Admin: 11/17/18 22:01 Dose: 10 mg Saccharomyces Boulardii (Florastor) 250 mg PO TID [facility] Last Admin: 11/18/18 14:12 Dose: 250 mg Sevelamer Carbonate (Renvela) 0.8 gm PEG TIDCC [facility] Last Admin: 11/18/18 11:56 Dose: 0.8 gm - Labs Labs: 11/17/18 07:24 11/16/18 07:30 PT 14.3 SECONDS (9.7-12.2) H 11/05/18 05:52 INR 1.3 11/05/18 05:52 APTT 43 SECONDS (21-34) H 11/05/18 05:52 Assessment and Plan (1) Acute on chronic renal failure Status: Acute (2) Diabetic nephropathy associated with type 2 diabetes mellitus Status: Acute (3) Uremia, acute Status: Acute
--- NOTE | 2018-11-18 17:05 | CP.PCM.PN ---
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 Patient had a fever of 103. The antibiotic was restarted. Seen by infectious disease also. Patient is having unstageable wound in the sacral decubiti region noted. Receiving hemodialysis. Patient is not having any acute illness otherwise. On ventilator at this time. Full support ventilation. Unable to wean because of the temperature high On examination: Thick secretions noted from the endotracheal tube. Febrile illness. Labs ordered. Reviewed On antibiotic We will continue the current treatment. 72-year-old female with a history of diabetes hypertension CAD hypercholesterolemia end-stage renal disease now on dialysis. Overall prognosis very poor. DNR will follow the patient Objective - Vital Signs/Intake and Output Vital Signs (last 24 hours): Temp Pulse Resp BP Pulse Ox 98.1 F 78 20 107/66 100 11/18/18 15:46 11/18/18 15:46 11/18/18 15:46 11/18/18 15:46 11/18/18 15:46 Intake and Output: 11/18/18 11/18/18 06:59 18:59 Intake Total 610 1140 Output Total 0 Balance 610 1140 - Medications Medications: Current Medications Acetaminophen (Tylenol 650mg/20.3ml Solution Ud) 650 mg PO Q6 PRN PRN Reason: pain+fever Last Admin: 11/18/18 05:39 Dose: 650 mg Acyclovir (Zovirax 5% Oint) 1 gm EXT Q3H [facility] Last Admin: 11/18/18 16:20 Dose: 1 applic Amlodipine Besylate (Norvasc) 5 mg PO DAILY [facility] Last Admin: 11/18/18 10:05 Dose: 5 mg Aspirin (Aspirin Chewable) 81 mg PO DAILY [facility] Last Admin: 11/18/18 10:05 Dose: 81 mg Dextrose (Dextrose 50% Inj) 0 ml IV STAT PRN; Protocol PRN Reason: Hypoglycemia Protocol Dextrose (Glutose 15) 0 gm PO ONCE PRN; Protocol PRN Reason: Hypoglycemia Protocol Epoetin Dedrick (Procrit) 10,000 unit IV TTS [facility] Last Admin: 11/17/18 18:10 Dose: 10,000 unit Glucagon (Glucagen Diagnostic Kit) 0 mg IM STAT PRN; Protocol PRN Reason: Hypoglycemia Protocol Heparin Sodium (Porcine) (Heparin) 5,000 units SC Q8 [facility] Last Admin: 11/18/18 14:12 Dose: 5,000 units Meropenem 500 mg/ Sodium (Chloride) 100 mls @ 100 mls/hr IVPB DAILY [facility]; Protocol Last Admin: 11/18/18 10:02 Dose: 100 mls/hr Metronidazole (Flagyl) 500 mg in 100 mls @ 100 mls/hr IVPB Q8H [facility]; Protocol Last Admin: 11/18/18 16:19 Dose: 100 mls/hr Micafungin Sodium 100 mg/ (Sodium Chloride) 100 mls @ 100 mls/hr IV Q24H [facility]; Protocol Last Admin: 11/17/18 19:52 Dose: 100 mls/hr Insulin Aspart (Novolog) 0 unit SC Q6H [facility]; Protocol Last Admin: 11/18/18 11:55 Dose: 12 units Insulin Glargine (Lantus) 15 unit SC Q12 [facility] Last Admin: 11/18/18 10:03 Dose: 15 units Levetiracetam (Keppra) 1,000 mg PO BID [facility] Last Admin: 11/18/18 10:05 Dose: 1,000 mg Levothyroxine Sodium (Synthroid) 50 mcg PO 0600 [facility] Last Admin: 11/18/18 05:39 Dose: 50 mcg Nystatin (Nystop Topical Powder) 1 applic TOP BID [facility] Last Admin: 11/18/18 10:14 Dose: 1 applic Pantoprazole Sodium (Protonix Susp) 40 mg PO 0600 [facility] Last Admin: 11/18/18 05:38 Dose: 40 mg Rosuvastatin Calcium (Crestor) 10 mg PO HS [facility] Last Admin: 11/17/18 22:01 Dose: 10 mg Saccharomyces Boulardii (Florastor) 250 mg PO TID [facility] Last Admin: 11/18/18 14:12 Dose: 250 mg Sevelamer Carbonate (Renvela) 0.8 gm PEG TIDCC [facility] Last Admin: 11/18/18 11:56 Dose: 0.8 gm - Labs Labs: 11/17/18 07:24 11/16/18 07:30 PT 14.3 SECONDS (9.7-12.2) H 11/05/18 05:52 INR 1.3 11/05/18 05:52 APTT 43 SECONDS (21-34) H 11/05/18 05:52 Assessment and Plan (1) Acute on chronic renal failure Status: Acute (2) Diabetic nephropathy associated with type 2 diabetes mellitus Status: Acute (3) Uremia, acute Status: Acute
--- NOTE | 2018-11-18 17:57 | CP.PCM.PN ---
Subjective - Date & Time of Evaluation Date of Evaluation: 11/18/18 Time of Evaluation: 13:00 - Subjective Subjective: dictated Objective - Vital Signs/Intake and Output Vital Signs (last 24 hours): Temp Pulse Resp BP Pulse Ox 98.1 F 78 20 107/66 100 11/18/18 15:46 11/18/18 15:46 11/18/18 15:46 11/18/18 15:46 11/18/18 15:46 Intake and Output: 11/18/18 11/18/18 06:59 18:59 Intake Total 610 1140 Output Total 0 Balance 610 1140 - Medications Medications: Current Medications Acetaminophen (Tylenol 650mg/20.3ml Solution Ud) 650 mg PO Q6 PRN PRN Reason: pain+fever Last Admin: 11/18/18 05:39 Dose: 650 mg Acyclovir (Zovirax 5% Oint) 1 gm EXT Q3H [facility] Last Admin: 11/18/18 16:20 Dose: 1 applic Amlodipine Besylate (Norvasc) 5 mg PO DAILY [facility] Last Admin: 11/18/18 10:05 Dose: 5 mg Aspirin (Aspirin Chewable) 81 mg PO DAILY [facility] Last Admin: 11/18/18 10:05 Dose: 81 mg Dextrose (Dextrose 50% Inj) 0 ml IV STAT PRN; Protocol PRN Reason: Hypoglycemia Protocol Dextrose (Glutose 15) 0 gm PO ONCE PRN; Protocol PRN Reason: Hypoglycemia Protocol Epoetin Dedrick (Procrit) 10,000 unit IV TTS [facility] Last Admin: 11/17/18 18:10 Dose: 10,000 unit Glucagon (Glucagen Diagnostic Kit) 0 mg IM STAT PRN; Protocol PRN Reason: Hypoglycemia Protocol Heparin Sodium (Porcine) (Heparin) 5,000 units SC Q8 [facility] Last Admin: 11/18/18 14:12 Dose: 5,000 units Meropenem 500 mg/ Sodium (Chloride) 100 mls @ 100 mls/hr IVPB DAILY [facility]; Protocol Last Admin: 11/18/18 10:02 Dose: 100 mls/hr Metronidazole (Flagyl) 500 mg in 100 mls @ 100 mls/hr IVPB Q8H [facility]; Protocol Last Admin: 11/18/18 16:19 Dose: 100 mls/hr Micafungin Sodium 100 mg/ (Sodium Chloride) 100 mls @ 100 mls/hr IV Q24H [facility]; Protocol Last Admin: 11/17/18 19:52 Dose: 100 mls/hr Insulin Aspart (Novolog) 0 unit SC Q6H [facility]; Protocol Last Admin: 11/18/18 11:55 Dose: 12 units Insulin Glargine (Lantus) 25 unit SC Q12 [facility] Levetiracetam (Keppra) 1,000 mg PO BID [facility] Last Admin: 11/18/18 10:05 Dose: 1,000 mg Levothyroxine Sodium (Synthroid) 50 mcg PO 0600 [facility] Last Admin: 11/18/18 05:39 Dose: 50 mcg Nystatin (Nystop Topical Powder) 1 applic TOP BID [facility] Last Admin: 11/18/18 10:14 Dose: 1 applic Pantoprazole Sodium (Protonix Susp) 40 mg PO 0600 [facility] Last Admin: 11/18/18 05:38 Dose: 40 mg Rosuvastatin Calcium (Crestor) 10 mg PO HS [facility] Last Admin: 11/17/18 22:01 Dose: 10 mg Saccharomyces Boulardii (Florastor) 250 mg PO TID [facility] Last Admin: 11/18/18 14:12 Dose: 250 mg Sevelamer Carbonate (Renvela) 0.8 gm PEG TIDCC [facility] Last Admin: 11/18/18 11:56 Dose: 0.8 gm - Labs Labs: 11/17/18 07:24 11/16/18 07:30 PT 14.3 SECONDS (9.7-12.2) H 11/05/18 05:52 INR 1.3 11/05/18 05:52 APTT 43 SECONDS (21-34) H 11/05/18 05:52
[2018-11-18] MEDS: Micafungin 100 MG in Sodium Chloride 0.9% 100 ML IV SCH (19:33)
--- NOTE | 2018-11-18 21:11 | CP.PCM.PN ---
Subjective - Date & Time of Evaluation Date of Evaluation: 11/18/18 Time of Evaluation: 11:10 - Subjective Subjective: Patient with episodes of fever Unresponsive to commands On Ventilator Physical Examination - Physical Exam Head: Positive for: Atraumatic, Normocephalic Extroacular Muscles: Positive for: EOMI (dropping eyelid left) Conjunctiva: Positive for: Normal Mouth: Positive for: Dry Pharnyx: Positive for: ERYTHEMA (erythemia around lips) Neck: Positive for: Other (tracheostomy in place with vent, trialysis cath on left side neck area ) Respiratory/Chest: Positive for: Decreased Breath Sounds, Other (intubated ). Negative for: Respiratory Distress, Accessory Muscle Use, Tachypneic Cardiovascular: Positive for: Regular Rate and Rhythm, Normal S1, S2 Abdomen: Positive for: Normal Bowel Sounds, Other (PEG tube in place ). Negative for: Tenderness, Distention, Rebound, Guarding Back: Positive for: Decubitus Ulcer (unstagable) Upper Extremity: Positive for: Normal Inspection. Negative for: Cyanosis, Edema Lower Extremity: Positive for: Normal Inspection. Negative for: Edema Neurological: Negative for: GCS=15, CN II-XII Intact, Speech Normal Skin: Positive for: Warm, Dry, Normal Color Psychiatric: Negative for: Alert, Oriented x 3, Normal Insight, Normal Concentration Assessment and Plan - Assessment and Plan (Free Text) Assessment: Patient is a 72 year old female with PMHx of CKD, CHF, CAD s/p stents, pituitary adenoma a/p resection, DM, who was admitted for respiratory and cardiac arrest s/p permacath placement and AVF on 10/05; possible AMS due to anoxic brain injury, now on HD MWF, tracheostomy on 10/18/17, PEG tube placement 10/23/18. Patient became hypotensive overnight and upgraded to ICU. Permacath removed by surgery on 10/30. A trialysis catheter inserted but dialysis reported the line was not function. A IJ central line inserted for dialysis access. Pt had a LP yesterday (11/05) to r/o meningitis. Pt continues to have diarrhea, feeds changed to Glucerna. The left IJ catheter inserted 11/01 for dialysis was repositioned yesterday due to poor blood return. Patients family made decision to make patient DNR (11/08) after long discussion regarding goals of care. Patient remains intubated and patients family still remains without decision regarding terminal extubation. Patient continues to have diarrhea; rectal tube remains in place. Patient to go to OR today for permacath placement for dialysis. Plan: Neuro - Intubated, agitated - No sedation - continue Keppra and valproate as per neuro - Lumbar puncture 11/05: WBC 1.0, Glucose 129, RBC 0, Total protein 56 - CSF - negative for herpes I&II, HIV, West Nile, VDRL - f/u Neuro recs Cardiac - Hypertension, improved - continue Norvasc 5mg daily - Echo 11/01: Left Ventricle systolic function is normal; EF is 55-60%; hypertensive heart disease; diastolic dysfunction; no AR, MR, pulmonary hypertension; trace to mild tricuspid regurgitation. - continue to monitor vitals - continue Crestor 10mg, ASA 81mg Pulm - Intubated, current vent settings PRVC 14/450/5/35 - Pressure support trials - CXR 11/08: No acute infiltrate pleural effusion identified GI - PEG tube in place - Tube feeds changed to Glucerna at rate of 20ml/hr due to diarrhea - rectal tube in place - protonix ppx - CT abdomen/pelvis 10/30: fluid and gas filled distended rectum versus perirectal abscess. Evidence of anastomotic bowel suture material and/or rectal tube/packing material. - per surgery, no intervention at this time Renal - Dialysis today after OR - HD schedule: [facility] - OR today for permacath placement for dialysis - continue Procrit Endo - Hx of Hypothyroidism, continue levothyroxine 50mg - Hx of DM, continue ISS - insulin held on 11/12 due to hypoglycemia - Accuchecks Q6H Heme - H/H 9.2/.7 - monitor CBC ID - Febrile, Tmax 100.6F - WBC 8.3 today, continue to monitor - f/u stool cx, blood cx, urine cx - f/u c.difficle toxin - continue Abx: Meropenem, Flagyl, Vanco - 10/30 Tracheostomy site, sputum cx positive: Romina Albicans - continue Micafungin 100mg - Nystatin powder for fungal rash on chest - Decubitus Ulcer, unstageable; wound care following - Consult Surgery to re-evaluate perirectal abscess following ceretec scan results - surgery - nothing to do at this point - ESR (+) 99 (2/5) - CRP (+) 155.70 (2/5) - f/u ID recs Rheum - JERRY negative (2/5) PPx - Protonix for GI ppx - DVT ppx: SCDs, Heparin SC - Tylenol PRN for fever - Hypoglycemic protocol PRN Patient DNR Objective - Vital Signs/Intake and Output Vital Signs (last 24 hours): Temp Pulse Resp BP Pulse Ox 98.1 F 78 20 107/66 100 11/18/18 15:46 11/18/18 15:46 11/18/18 15:46 11/18/18 15:46 11/18/18 15:46 Intake and Output: 11/18/18 11/19/18 18:59 06:59 Intake Total 1140 Output Total 0 Balance 1140 - Medications Medications: Current Medications Acetaminophen (Tylenol 650mg/20.3ml Solution Ud) 650 mg PO Q6 PRN PRN Reason: pain+fever Last Admin: 11/18/18 05:39 Dose: 650 mg Acyclovir (Zovirax 5% Oint) 1 gm EXT Q3H [facility] Last Admin: 11/18/18 18:04 Dose: 1 applic Amlodipine Besylate (Norvasc) 5 mg PO DAILY [facility] Last Admin: 11/18/18 10:05 Dose: 5 mg Aspirin (Aspirin Chewable) 81 mg PO DAILY [facility] Last Admin: 11/18/18 10:05 Dose: 81 mg Dextrose (Dextrose 50% Inj) 0 ml IV STAT PRN; Protocol PRN Reason: Hypoglycemia Protocol Dextrose (Glutose 15) 0 gm PO ONCE PRN; Protocol PRN Reason: Hypoglycemia Protocol Epoetin Dedrick (Procrit) 10,000 unit IV TTS [facility] Last Admin: 11/17/18 18:10 Dose: 10,000 unit Glucagon (Glucagen Diagnostic Kit) 0 mg IM STAT PRN; Protocol PRN Reason: Hypoglycemia Protocol Heparin Sodium (Porcine) (Heparin) 5,000 units SC Q8 [facility] Last Admin: 11/18/18 14:12 Dose: 5,000 units Meropenem 500 mg/ Sodium (Chloride) 100 mls @ 100 mls/hr IVPB DAILY [facility]; Pr otocol Last Admin: 11/18/18 10:02 Dose: 100 mls/hr Metronidazole (Flagyl) 500 mg in 100 mls @ 100 mls/hr IVPB Q8H [facility]; Protocol Last Admin: 11/18/18 16:19 Dose: 100 mls/hr Micafungin Sodium 100 mg/ (Sodium Chloride) 100 mls @ 100 mls/hr IV Q24H [facility]; Protocol Last Admin: 11/18/18 19:33 Dose: 100 mls/hr Insulin Aspart (Novolog) 0 unit SC Q6H [facility]; Protocol Last Admin: 11/18/18 18:01 Dose: 12 units Insulin Glargine (Lantus) 25 unit SC Q12 [facility] Levetiracetam (Keppra) 1,000 mg PO BID [facility] Last Admin: 11/18/18 18:03 Dose: 1,000 mg Levothyroxine Sodium (Synthroid) 50 mcg PO 0600 [facility] Last Admin: 11/18/18 05:39 Dose: 50 mcg Nystatin (Nystop Topical Powder) 1 applic TOP BID [facility] Last Admin: 11/18/18 18:05 Dose: 1 applic Pantoprazole Sodium (Protonix Susp) 40 mg PO 0600 [facility] Last Admin: 11/18/18 05:38 Dose: 40 mg Rosuvastatin Calcium (Crestor) 10 mg PO HS [facility] Last Admin: 11/17/18 22:01 Dose: 10 mg Saccharomyces Boulardii (Florastor) 250 mg PO TID [facility] Last Admin: 11/18/18 18:02 Dose: 250 mg Sevelamer Carbonate (Renvela) 0.8 gm PEG TIDCC [facility] Last Admin: 11/18/18 17:50 Dose: 0.8 gm - Labs Labs: 11/17/18 07:24 11/16/18 07:30 PT 14.3 SECONDS (9.7-12.2) H 11/05/18 05:52 INR 1.3 11/05/18 05:52 APTT 43 SECONDS (21-34) H 11/05/18 05:52
--- NOTE | 2018-11-18 22:01 | PN ---
DATE: 11/18/2018 SUBJECTIVE: The patient was seen today. She remains unresponsive on the ventilator. Her lip lesions appeared to be healing and the lip remains swollen and she is unresponsive. Trach site appears unremarkable. PHYSICAL EXAMINATION: NECK: Supple. LUNGS: Have occasional rhonchi, otherwise clear. HEART: S1, S2, is regular. ABDOMEN: Soft, nontender. She does have a sacral decubitus and she had a rectal abscess which was drained, I am told. EXTREMITIES: Have bilateral edema. LABORATORY DATA: Labs are noted. Her sugars have been running high. We have taken her off the vancomycin and she had fevers yesterday and this morning. She is on Tylenol, Zovirax, amlodipine. She is on dextrose, Epogen, glucagon, heparin, insulin Lantus, Keppra. She is on Synthroid, meropenem 500 once a day and on Flagyl 500 every 8 hours and micafungin. PLAN: So, at this time since she is febrile, I am wondering if she is having fevers due to the unstageable decubiti. She is a dialysis patient and she is anoxic. Had a rectal abscess recently which was drained. We will continue to monitor her and if she becomes febrile again, we will see if we need to cover aggressively for gram-positives or the wound needs debridement that needs to be evaluated. We will continue present treatment at this time and monitor the situation. She did get a new catheter with the dialysis which is on the right chest wall at this time. She also had multiple tests done for fevers and at this time, I think the unstageable sacral decubitus may be the etiology. Sara Barrios MD
[2018-11-19] MEDS: Acyclovir 5% Oint (15 gm) EXT SCH ×8 (00:27→22:28)
[2018-11-19] MEDS: metroNIDAZOLE IV 500 mg/100 ml 500 MG/100 ML BAG IVPB SCH ×3 (00:27→15:56)
[2018-11-19] MEDS: Acetaminophen 650mg/20.3ml solution UD PO PRN ×2 (01:35→10:38)
[2018-11-19] MEDS: Pantoprazole 40 mg Susp UD PO SCH (05:24)
[2018-11-19] MEDS: Levothyroxine 50 MCG TAB PO SCH (05:24)
[2018-11-19] MEDS: (Novolog) Insulin Aspart, Recombinant 100 u/ml 10 ml vial SC SCH ×3 (06:43→18:40)
--- NOTE | 2018-11-19 07:28 | PN ---
DATE: 11/19/2018 NEUROLOGIC FOLLOWUP EVALUATION TIME OF EVALUATION: 06:45 a.m. 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 PHYSICAL EXAMINATION: GENERAL: The patient remains the same,neurological evaluation as before. Obtunded. VITAL SIGNS: Blood pressure seem to be hypertensive, temperature febrile with a pulse rate of 99, irregular. HEENT: Eyes are closed. EXTREMITIES: Spontaneous movement left more than her arm noted. Some movement in the left lower extremity is also noted. ASSESSMENT AND PLAN: The patient has been on hemodialysis and antibiotics as per ID. No clinical episode of seizures have been observed in few days. RECOMMENDATIONS: Continue supportive care. The patient is DNR. Blu Yost MD
[2018-11-19] MEDS: Sevelamer Carb 0.8 gm/Packet PEG SCH ×3 (08:44→17:41)
--- NOTE | 2018-11-19 10:12 | CP.PCM.PN ---
Subjective - Date & Time of Evaluation Date of Evaluation: 11/19/18 Time of Evaluation: 10:09 - Subjective Subjective: pt seen and examined no change clinically on vent, FIO2 40% afebrile had HD Monday no overnight events ROS- unable to obtain as pt nonverbal, unresponsive Objective - Vital Signs/Intake and Output Vital Signs (last 24 hours): Temp Pulse Resp BP Pulse Ox 102.2 F H 91 H 20 93/56 L 100 11/19/18 08:00 11/19/18 08:00 11/19/18 08:00 11/19/18 08:00 11/19/18 08:00 Intake and Output: 11/19/18 11/19/18 06:59 18:59 Intake Total 1370 Balance 1370 - Medications Medications: Current Medications Acetaminophen (Tylenol 650mg/20.3ml Solution Ud) 650 mg PO Q6 PRN PRN Reason: pain+fever Last Admin: 11/19/18 01:35 Dose: 650 mg Acyclovir (Zovirax 5% Oint) 1 gm EXT Q3H [facility] Last Admin: 11/19/18 05:39 Dose: 1 applic Amlodipine Besylate (Norvasc) 5 mg PO DAILY [facility] Last Admin: 11/18/18 10:05 Dose: 5 mg Aspirin (Aspirin Chewable) 81 mg PO DAILY [facility] Last Admin: 11/18/18 10:05 Dose: 81 mg Dextrose (Dextrose 50% Inj) 0 ml IV STAT PRN; Protocol PRN Reason: Hypoglycemia Protocol Dextrose (Glutose 15) 0 gm PO ONCE PRN; Protocol PRN Reason: Hypoglycemia Protocol Epoetin Dedrick (Procrit) 10,000 unit IV TTS [facility] Last Admin: 11/17/18 18:10 Dose: 10,000 unit Glucagon (Glucagen Diagnostic Kit) 0 mg IM STAT PRN; Protocol PRN Reason: Hypoglycemia Protocol Heparin Sodium (Porcine) (Heparin) 5,000 units SC Q8 [facility] Last Admin: 11/19/18 05:24 Dose: 5,000 units Meropenem 500 mg/ Sodium (Chloride) 100 mls @ 100 mls/hr IVPB DAILY [facility]; Protocol Last Admin: 11/18/18 10:02 Dose: 100 mls/hr Metronidazole (Flagyl) 500 mg in 100 mls @ 100 mls/hr IVPB Q8H [facility]; Protocol Last Admin: 11/19/18 08:43 Dose: 100 mls/hr Micafungin Sodium 100 mg/ (Sodium Chloride) 100 mls @ 100 mls/hr IV Q24H [facility]; Protocol Last Admin: 11/18/18 19:33 Dose: 100 mls/hr Insulin Aspart (Novolog) 0 unit SC Q6H [facility]; Protocol Last Admin: 11/19/18 06:43 Dose: 4 units Insulin Glargine (Lantus) 25 unit SC Q12 [facility] Last Admin: 11/18/18 21:19 Dose: 25 units Levetiracetam (Keppra) 1,000 mg PO BID [facility] Last Admin: 11/18/18 18:03 Dose: 1,000 mg Levothyroxine Sodium (Synthroid) 50 mcg PO 0600 [facility] Last Admin: 11/19/18 05:24 Dose: 50 mcg Nystatin (Nystop Topical Powder) 1 applic TOP BID [facility] Last Admin: 11/18/18 18:05 Dose: 1 applic Pantoprazole Sodium (Protonix Susp) 40 mg PO 0600 [facility] Last Admin: 11/19/18 05:24 Dose: 40 mg Rosuvastatin Calcium (Crestor) 10 mg PO HS [facility] Last Admin: 11/18/18 21:18 Dose: 10 mg Saccharomyces Boulardii (Florastor) 250 mg PO TID [facility] Last Admin: 11/18/18 18:02 Dose: 250 mg Sevelamer Carbonate (Renvela) 0.8 gm PEG TIDCC [facility] Last Admin: 11/19/18 08:44 Dose: 0.8 gm - Labs Labs: 11/17/18 07:24 11/16/18 07:30 PT 14.3 SECONDS (9.7-12.2) H 11/05/18 05:52 INR 1.3 11/05/18 05:52 APTT 43 SECONDS (21-34) H 11/05/18 05:52 - Constitutional Appears: No Acute Distress, Chronically Ill - Head Exam Head Exam: ATRAUMATIC, NORMOCEPHALIC - Eye Exam Eye Exam: EOMI, PERRL - ENT Exam ENT Exam: Mucous Membranes Moist - Neck Exam Neck Exam: Full ROM - Respiratory Exam Respiratory Exam: absent: Rhonchi, Wheezes Additional comments: coarse BS bilaterally - Cardiovascular Exam Cardiovascular Exam: REGULAR RHYTHM, +S1, +S2 - GI/Abdominal Exam GI & Abdominal Exam: Soft. absent: Tenderness Additional comments: PEg in place - Extremities Exam Extremities Exam: absent: Pedal Edema - Neurological Exam Neurological Exam: absent: Alert, Awake, Oriented x3 - Skin Skin Exam: Dry. absent: Warm Additional comments: erythematous rash on face and lips , left arm Assessment and Plan (1) Diabetic nephropathy associated with type 2 diabetes mellitus Status: Acute (2) ESRD (end stage renal disease) Status: Acute (3) Respiratory failure Status: Acute (4) Altered mental state Status: Acute (5) CAD (coronary artery disease) Status: Acute (6) Cardiomyopathy Status: Acute - Assessment and Plan (Free Text) Plan: HD TTS, next HD tomorrow tolerating tube feeds rash from herpes- on topical acyclovir BP stable
[2018-11-19] MEDS: Meropenem 500 MG in Sodium Chloride 0.9% 100 ML IVPB SCH (10:31)
[2018-11-19] MEDS: levETIRAcetam 100 mg/ml (5ml) Oral Syringe PO SCH ×2 (10:33→17:41)
[2018-11-19] MEDS: Saccharomyces Boulardi 250 mg Cap PO SCH ×3 (10:34→17:41)
[2018-11-19] MEDS: (Lantus) Insulin Glargine, Recombinant SC SCH ×2 (10:35→22:23)
[2018-11-19] MEDS: Micafungin 100 MG in Sodium Chloride 0.9% 100 ML IV SCH (20:24)
--- NOTE | 2018-11-19 20:51 | CP.PCM.PN ---
Subjective - Date & Time of Evaluation Date of Evaluation: 11/19/18 Time of Evaluation: 15:00 - Subjective Subjective: dictated Objective - Vital Signs/Intake and Output Vital Signs (last 24 hours): Temp Pulse Resp BP Pulse Ox 99.8 F H 89 18 93/56 L 99 11/19/18 15:45 11/19/18 15:45 11/19/18 15:45 11/19/18 08:00 11/19/18 15:45 Intake and Output: 11/19/18 11/20/18 18:59 06:59 Intake Total 760 Balance 760 - Medications Medications: Current Medications Acetaminophen (Tylenol 650mg/20.3ml Solution Ud) 650 mg PO Q6 PRN PRN Reason: pain+fever Last Admin: 11/19/18 10:38 Dose: 650 mg Acyclovir (Zovirax 5% Oint) 1 gm EXT Q3H [facility] Last Admin: 11/19/18 12:59 Dose: 1 applic Amlodipine Besylate (Norvasc) 5 mg PO DAILY [facility] Last Admin: 11/19/18 10:34 Dose: Not Given Aspirin (Aspirin Chewable) 81 mg PO DAILY [facility] Last Admin: 11/19/18 10:34 Dose: 81 mg Dextrose (Dextrose 50% Inj) 0 ml IV STAT PRN; Protocol PRN Reason: Hypoglycemia Protocol Dextrose (Glutose 15) 0 gm PO ONCE PRN; Protocol PRN Reason: Hypoglycemia Protocol Epoetin Dedrick (Procrit) 10,000 unit IV TTS [facility] Last Admin: 11/17/18 18:10 Dose: 10,000 unit Glucagon (Glucagen Diagnostic Kit) 0 mg IM STAT PRN; Protocol PRN Reason: Hypoglycemia Protocol Heparin Sodium (Porcine) (Heparin) 5,000 units SC Q8 [facility] Last Admin: 11/19/18 14:11 Dose: 5,000 units Meropenem 500 mg/ Sodium (Chloride) 100 mls @ 100 mls/hr IVPB DAILY [facility]; Protocol Last Admin: 11/19/18 10:31 Dose: 100 mls/hr Metronidazole (Flagyl) 500 mg in 100 mls @ 100 mls/hr IVPB Q8H [facility]; Protocol Last Admin: 11/19/18 15:56 Dose: 100 mls/hr Micafungin Sodium 100 mg/ (Sodium Chloride) 100 mls @ 100 mls/hr IV Q24H [facility]; Protocol Last Admin: 11/19/18 20:24 Dose: 100 mls/hr Insulin Aspart (Novolog) 0 unit SC Q6H [facility]; Protocol Last Admin: 11/19/18 18:40 Dose: Not Given Insulin Glargine (Lantus) 25 unit SC Q12 [facility] Last Admin: 11/19/18 10:35 Dose: 25 units Levetiracetam (Keppra) 1,000 mg PO BID [facility] Last Admin: 11/19/18 17:41 Dose: 1,000 mg Levothyroxine Sodium (Synthroid) 50 mcg PO 0600 [facility] Last Admin: 11/19/18 05:24 Dose: 50 mcg Nystatin (Nystop Topical Powder) 1 applic TOP BID [facility] Last Admin: 11/19/18 10:36 Dose: 1 applic Pantoprazole Sodium (Protonix Susp) 40 mg PO 0600 [facility] Last Admin: 11/19/18 05:24 Dose: 40 mg Rosuvastatin Calcium (Crestor) 10 mg PO HS [facility] Last Admin: 11/18/18 21:18 Dose: 10 mg Saccharomyces Boulardii (Florastor) 250 mg PO TID [facility] Last Admin: 11/19/18 17:41 Dose: 250 mg Sevelamer Carbonate (Renvela) 0.8 gm PEG TIDCC [facility] Last Admin: 11/19/18 17:41 Dose: 0.8 gm - Labs Labs: 11/17/18 07:24 11/16/18 07:30 PT 14.3 SECONDS (9.7-12.2) H 11/05/18 05:52 INR 1.3 11/05/18 05:52 APTT 43 SECONDS (21-34) H 11/05/18 05:52
--- NOTE | 2018-11-19 23:25 | PN ---
DATE: 11/19/2018 INFECTIOUS DISEASE FOLLOWUP SUBJECTIVE: The patient still is having temps of 102.2, this morning, she had it around 10:38. PHYSICAL EXAMINATION: VITAL SIGNS: Now, she was 99.8, heart rate of 89. Respirations are on the ventilator. GENERAL: She remains anoxic with the upper lip has almost like petechial lesions, looks like, but they are drying and looking better. NECK: Supple. LUNGS: Clear. No crackles or rales heard. Occasional rhonchi. The trach site appears unremarkable. HEART: S1, S2 are regular. ABDOMEN: Soft, nontender. PEG tube is present. She has sacral decubitus. EXTREMITIES: Have no edema. LABORATORY DATA: Labs are noted. Labs show her sugars were 118, and her sputum is growing gram-negative rods. We will follow that. ASSESSMENT AND PLAN: At this time, she is on antibiotics and she had rectal abscess and also sacral decubitus, meropenem, Flagyl, and micafungin at this time, and we will continue those and follow the sputum cultures. The patient is with anoxic encephalopathy, respiratory failure, renal failure, and has fevers. Sara Barrios MD
--- NOTE | 2018-11-19 23:59 | CP.PCM.PN ---
Subjective - Date & Time of Evaluation Date of Evaluation: 11/19/18 Time of Evaluation: 13:45 - Subjective Subjective: Patient seen and evaluated Clinical condition remains same Non verbal and unresponsive On Ventilator Objective - Vital Signs/Intake and Output Vital Signs (last 24 hours): Temp Pulse Resp BP Pulse Ox 99.8 F H 89 18 93/56 L 99 11/19/18 15:45 11/19/18 15:45 11/19/18 15:45 11/19/18 08:00 11/19/18 15:45 Intake and Output: 11/19/18 11/20/18 18:59 06:59 Intake Total 760 760 Output Total 5 Balance 760 755 - Medications Medications: Current Medications Acetaminophen (Tylenol 650mg/20.3ml Solution Ud) 650 mg PO Q6 PRN PRN Reason: pain+fever Last Admin: 11/19/18 10:38 Dose: 650 mg Acyclovir (Zovirax 5% Oint) 1 gm EXT Q3H [facility] Last Admin: 11/19/18 22:28 Dose: 1 applic Amlodipine Besylate (Norvasc) 5 mg PO DAILY [facility] Last Admin: 11/19/18 10:34 Dose: Not Given Aspirin (Aspirin Chewable) 81 mg PO DAILY [facility] Last Admin: 11/19/18 10:34 Dose: 81 mg Dextrose (Dextrose 50% Inj) 0 ml IV STAT PRN; Protocol PRN Reason: Hypoglycemia Protocol Dextrose (Glutose 15) 0 gm PO ONCE PRN; Protocol PRN Reason: Hypoglycemia Protocol Epoetin Dedrick (Procrit) 10,000 unit IV TTS [facility] Last Admin: 11/17/18 18:10 Dose: 10,000 unit Glucagon (Glucagen Diagnostic Kit) 0 mg IM STAT PRN; Protocol PRN Reason: Hypoglycemia Protocol Heparin Sodium (Porcine) (Heparin) 5,000 units SC Q8 [facility] Last Admin: 11/19/18 22:24 Dose: 5,000 units Meropenem 500 mg/ Sodium (Chloride) 100 mls @ 100 mls/hr IVPB DAILY [facility]; Protocol Last Admin: 11/19/18 10:31 Dose: 100 mls/hr Metronidazole (Flagyl) 500 mg in 100 mls @ 100 mls/hr IVPB Q8H [facility]; Protocol Last Admin: 11/19/18 15:56 Dose: 100 mls/hr Micafungin Sodium 100 mg/ (Sodium Chloride) 100 mls @ 100 mls/hr IV Q24H [facility]; Protocol Last Admin: 11/19/18 20:24 Dose: 100 mls/hr Insulin Aspart (Novolog) 0 unit SC Q6H [facility]; Protocol Last Admin: 11/19/18 18:40 Dose: Not Given Insulin Glargine (Lantus) 25 unit SC Q12 [facility] Last Admin: 11/19/18 22:23 Dose: 25 units Levetiracetam (Keppra) 1,000 mg PO BID [facility] Last Admin: 11/19/18 17:41 Dose: 1,000 mg Levothyroxine Sodium (Synthroid) 50 mcg PO 0600 [facility] Last Admin: 11/19/18 05:24 Dose: 50 mcg Nystatin (Nystop Topical Powder) 1 applic TOP BID [facility] Last Admin: 11/19/18 22:27 Dose: 1 applic Pantoprazole Sodium (Protonix Susp) 40 mg PO 0600 [facility] Last Admin: 11/19/18 05:24 Dose: 40 mg Rosuvastatin Calcium (Crestor) 10 mg PO HS [facility] Last Admin: 11/19/18 22:24 Dose: 10 mg Saccharomyces Boulardii (Florastor) 250 mg PO TID [facility] Last Admin: 11/19/18 17:41 Dose: 250 mg Sevelamer Carbonate (Renvela) 0.8 gm PEG TIDCC [facility] Last Admin: 11/19/18 17:41 Dose: 0.8 gm - Labs Labs: 11/17/18 07:24 11/16/18 07:30 PT 14.3 SECONDS (9.7-12.2) H 11/05/18 05:52 INR 1.3 11/05/18 05:52 APTT 43 SECONDS (21-34) H 11/05/18 05:52
[2018-11-20] MEDS: (Novolog) Insulin Aspart, Recombinant 100 u/ml 10 ml vial SC SCH ×4 (00:22→18:08)
[2018-11-20] MEDS: Acetaminophen 650mg/20.3ml solution UD PO PRN ×2 (00:24→11:07)
[2018-11-20] MEDS: metroNIDAZOLE IV 500 mg/100 ml 500 MG/100 ML BAG IVPB SCH ×4 (00:24→18:02)
[2018-11-20] MEDS: Acyclovir 5% Oint (15 gm) EXT SCH ×7 (00:30→21:30)
[2018-11-20] MEDS: Pantoprazole 40 mg Susp UD PO SCH (05:36)
[2018-11-20] MEDS: Levothyroxine 50 MCG TAB PO SCH (05:36)
--- NOTE | 2018-11-20 07:59 | CP.PCM.PN ---
Subjective - Date & Time of Evaluation Date of Evaluation: 11/20/18 Time of Evaluation: 07:57 - Subjective Subjective: pt seen and examined no change clinically on vent as previous afebrile Scheduled for hd today no overnight events reported No family present ROS- unable to obtain as pt nonverbal, unresponsive Objective - Vital Signs/Intake and Output Vital Signs (last 24 hours): Temp Pulse Resp BP Pulse Ox 99.4 F 100 H 20 117/70 99 11/20/18 07:29 11/20/18 07:29 11/20/18 07:29 11/20/18 07:29 11/20/18 07:29 Intake and Output: 11/20/18 11/20/18 06:59 18:59 Intake Total 760 Output Total 5 Balance 755 - Medications Medications: Current Medications Acetaminophen (Tylenol 650mg/20.3ml Solution Ud) 650 mg PO Q6 PRN PRN Reason: pain+fever Last Admin: 11/20/18 00:24 Dose: 650 mg Acyclovir (Zovirax 5% Oint) 1 gm EXT Q3H [facility] Last Admin: 11/20/18 05:37 Dose: 1 applic Amlodipine Besylate (Norvasc) 5 mg PO DAILY [facility] Last Admin: 11/19/18 10:34 Dose: Not Given Aspirin (Aspirin Chewable) 81 mg PO DAILY [facility] Last Admin: 11/19/18 10:34 Dose: 81 mg Dextrose (Dextrose 50% Inj) 0 ml IV STAT PRN; Protocol PRN Reason: Hypoglycemia Protocol Dextrose (Glutose 15) 0 gm PO ONCE PRN; Protocol PRN Reason: Hypoglycemia Protocol Epoetin Dedrick (Procrit) 10,000 unit IV TTS [facility] Last Admin: 11/17/18 18:10 Dose: 10,000 unit Glucagon (Glucagen Diagnostic Kit) 0 mg IM STAT PRN; Protocol PRN Reason: Hypoglycemia Protocol Heparin Sodium (Porcine) (Heparin) 5,000 units SC Q8 [facility] Last Admin: 11/20/18 05:35 Dose: 5,000 units Meropenem 500 mg/ Sodium (Chloride) 100 mls @ 100 mls/hr IVPB DAILY [facility]; Protocol Last Admin: 11/19/18 10:31 Dose: 100 mls/hr Metronidazole (Flagyl) 500 mg in 100 mls @ 100 mls/hr IVPB Q8H [facility]; Protocol Last Admin: 11/20/18 00:24 Dose: 100 mls/hr Micafungin Sodium 100 mg/ (Sodium Chloride) 100 mls @ 100 mls/hr IV Q24H [facility]; Protocol Last Admin: 11/19/18 20:24 Dose: 100 mls/hr Insulin Aspart (Novolog) 0 unit SC Q6H [facility]; Protocol Last Admin: 11/20/18 00:22 Dose: Not Given Insulin Glargine (Lantus) 25 unit SC Q12 [facility] Last Admin: 11/19/18 22:23 Dose: 25 units Levetiracetam (Keppra) 1,000 mg PO BID [facility] Last Admin: 11/19/18 17:41 Dose: 1,000 mg Levothyroxine Sodium (Synthroid) 50 mcg PO 0600 [facility] Last Admin: 11/20/18 05:36 Dose: 50 mcg Nystatin (Nystop Topical Powder) 1 applic TOP BID [facility] Last Admin: 11/19/18 22:27 Dose: 1 applic Pantoprazole Sodium (Protonix Susp) 40 mg PO 0600 [facility] Last Admin: 11/20/18 05:36 Dose: 40 mg Rosuvastatin Calcium (Crestor) 10 mg PO HS [facility] Last Admin: 11/19/18 22:24 Dose: 10 mg Saccharomyces Boulardii (Florastor) 250 mg PO TID [facility] Last Admin: 11/19/18 17:41 Dose: 250 mg Sevelamer Carbonate (Renvela) 0.8 gm PEG TIDCC [facility] Last Admin: 11/19/18 17:41 Dose: 0.8 gm - Labs Labs: 11/17/18 07:24 11/16/18 07:30 PT 14.3 SECONDS (9.7-12.2) H 11/05/18 05:52 INR 1.3 11/05/18 05:52 APTT 43 SECONDS (21-34) H 11/05/18 05:52 - Constitutional Appears: Confused, Chronically Ill - ENT Exam ENT Exam: Mucous Membranes Moist, Normal Oropharynx - Neck Exam Neck Exam: absent: Lymphadenopathy, Thyromegaly - Respiratory Exam Respiratory Exam: Rhonchi. absent: Rales - Cardiovascular Exam Cardiovascular Exam: +S1, +S2. absent: Rubs - GI/Abdominal Exam GI & Abdominal Exam: Soft, Normal Bowel Sounds - Extremities Exam Extremities Exam: Pedal Edema. absent: Tenderness - Neurological Exam Neurological Exam: absent: Alert, Awake, Oriented x3 Assessment and Plan (1) Respiratory failure Status: Acute (2) ESRD (end stage renal disease) Status: Acute (3) CAD (coronary artery disease) Status: Acute (4) CHF (congestive heart failure) Status: Acute (5) Diabetes Status: Acute (6) HTN (hypertension) Status: Acute (7) Hyperglycemia Status: Acute - Assessment and Plan (Free Text) Assessment: Dialysis today Uf as tolerated Abx/antivirals as ordered Continue supportive care
[2018-11-20] MEDS: (Lantus) Insulin Glargine, Recombinant SC SCH ×2 (11:02→21:56)
[2018-11-20] MEDS: Meropenem 500 MG in Sodium Chloride 0.9% 100 ML IVPB SCH ×2 (11:02→13:53)
[2018-11-20] MEDS: levETIRAcetam 100 mg/ml (5ml) Oral Syringe PO SCH ×2 (11:02→17:00)
[2018-11-20] MEDS: Sevelamer Carb 0.8 gm/Packet PEG SCH ×3 (11:03→17:00)
[2018-11-20] MEDS: Saccharomyces Boulardi 250 mg Cap PO SCH ×3 (11:07→17:00)
[2018-11-20] MEDS: Epoetin Alfa 10,000 unit/ml Dialysis IV SCH (11:20)
[2018-11-20] MEDS ORDERED: Acetaminophen 160 mg/5 ml UD PO STA (14:54)
[2018-11-20] MEDS ORDERED: Acetaminophen 160 mg/5 ml UD PO ONE (15:10)
--- NOTE | 2018-11-20 15:32 | CP.PCM.PN ---
Subjective - Date & Time of Evaluation Date of Evaluation: 11/20/18 Time of Evaluation: 15:30 - Subjective Subjective: dictated Objective - Vital Signs/Intake and Output Vital Signs (last 24 hours): Temp Pulse Resp BP Pulse Ox 99.6 F 102 H 28 H 105/56 L 99 11/20/18 12:00 11/20/18 09:50 11/20/18 09:20 11/20/18 12:00 11/20/18 07:29 Intake and Output: 11/20/18 11/20/18 06:59 18:59 Intake Total 760 660 Output Total 5 Balance 755 660 - Medications Medications: Current Medications Acetaminophen (Tylenol 650mg/20.3ml Solution Ud) 650 mg PO Q6 PRN PRN Reason: pain+fever Last Admin: 11/20/18 11:07 Dose: 650 mg Acyclovir (Zovirax 5% Oint) 1 gm EXT Q3H [facility] Last Admin: 11/20/18 11:04 Dose: 1 applic Amlodipine Besylate (Norvasc) 5 mg PO DAILY [facility] Last Admin: 11/20/18 11:03 Dose: Not Given Aspirin (Aspirin Chewable) 81 mg PO DAILY [facility] Last Admin: 11/20/18 11:01 Dose: 81 mg Dextrose (Dextrose 50% Inj) 0 ml IV STAT PRN; Protocol PRN Reason: Hypoglycemia Protocol Dextrose (Glutose 15) 0 gm PO ONCE PRN; Protocol PRN Reason: Hypoglycemia Protocol Epoetin Dedrick (Procrit) 10,000 unit IV TTS [facility] Last Admin: 11/20/18 11:20 Dose: 10,000 unit Glucagon (Glucagen Diagnostic Kit) 0 mg IM STAT PRN; Protocol PRN Reason: Hypoglycemia Protocol Heparin Sodium (Porcine) (Heparin) 5,000 units SC Q8 [facility] Last Admin: 11/20/18 14:03 Dose: 5,000 units Meropenem 500 mg/ Sodium (Chloride) 100 mls @ 100 mls/hr IVPB DAILY [facility]; Protocol Last Admin: 11/20/18 13:53 Dose: 100 mls/hr Metronidazole (Flagyl) 500 mg in 100 mls @ 100 mls/hr IVPB Q8H [facility]; Protocol Last Admin: 11/20/18 12:04 Dose: 100 mls/hr Micafungin Sodium 100 mg/ (Sodium Chloride) 100 mls @ 100 mls/hr IV Q24H [facility]; Protocol Last Admin: 11/19/18 20:24 Dose: 100 mls/hr Insulin Aspart (Novolog) 0 unit SC Q6H [facility]; Protocol Last Admin: 11/20/18 12:00 Dose: Not Given Insulin Glargine (Lantus) 25 unit SC Q12 [facility] Last Admin: 11/20/18 11:02 Dose: Not Given Levetiracetam (Keppra) 1,000 mg PO BID [facility] Last Admin: 11/20/18 11:02 Dose: 1,000 mg Levothyroxine Sodium (Synthroid) 50 mcg PO 0600 [facility] Last Admin: 11/20/18 05:36 Dose: 50 mcg Nystatin (Nystop Topical Powder) 1 applic TOP BID [facility] Last Admin: 11/20/18 11:04 Dose: 1 applic Pantoprazole Sodium (Protonix Susp) 40 mg PO 0600 [facility] Last Admin: 11/20/18 05:36 Dose: 40 mg Rosuvastatin Calcium (Crestor) 10 mg PO HS [facility] Last Admin: 11/19/18 22:24 Dose: 10 mg Saccharomyces Boulardii (Florastor) 250 mg PO TID [facility] Last Admin: 11/20/18 15:12 Dose: 250 mg Sevelamer Carbonate (Renvela) 0.8 gm PEG TIDCC [facility] Last Admin: 11/20/18 11:10 Dose: 0.8 gm - Labs Labs: 11/17/18 07:24 11/16/18 07:30 PT 14.3 SECONDS (9.7-12.2) H 11/05/18 05:52 INR 1.3 11/05/18 05:52 APTT 43 SECONDS (21-34) H 11/05/18 05:52
[2018-11-20] MEDS: Micafungin 100 MG in Sodium Chloride 0.9% 100 ML IV SCH (19:58)
--- NOTE | 2018-11-20 21:13 | CP.PCM.PN ---
Subjective - Date & Time of Evaluation Date of Evaluation: 11/20/18 Time of Evaluation: 21:12 - Subjective Subjective: Patient seen and evaluated No additional cardiac issues at this time Poor prognosis I will sign off Please re consult me if needed Thank you Objective - Vital Signs/Intake and Output Vital Signs (last 24 hours): Temp Pulse Resp BP Pulse Ox 102.5 F H 96 H 20 113/69 100 11/20/18 16:32 11/20/18 16:32 11/20/18 16:32 11/20/18 16:32 11/20/18 16:32 Intake and Output: 11/20/18 11/21/18 18:59 06:59 Intake Total 660 Balance 660 - Medications Medications: Current Medications Acetaminophen (Tylenol 650mg/20.3ml Solution Ud) 650 mg PO Q6 PRN PRN Reason: pain+fever Last Admin: 11/20/18 11:07 Dose: 650 mg Acyclovir (Zovirax 5% Oint) 1 gm EXT Q3H [facility] Last Admin: 11/20/18 18:09 Dose: 1 applic Amlodipine Besylate (Norvasc) 5 mg PO DAILY [facility] Last Admin: 11/20/18 11:03 Dose: Not Given Aspirin (Aspirin Chewable) 81 mg PO DAILY [facility] Last Admin: 11/20/18 11:01 Dose: 81 mg Dextrose (Dextrose 50% Inj) 0 ml IV STAT PRN; Protocol PRN Reason: Hypoglycemia Protocol Dextrose (Glutose 15) 0 gm PO ONCE PRN; Protocol PRN Reason: Hypoglycemia Protocol Epoetin Dedrick (Procrit) 10,000 unit IV TTS [facility] Last Admin: 11/20/18 11:20 Dose: 10,000 unit Glucagon (Glucagen Diagnostic Kit) 0 mg IM STAT PRN; Protocol PRN Reason: Hypoglycemia Protocol Heparin Sodium (Porcine) (Heparin) 5,000 units SC Q8 [facility] Last Admin: 11/20/18 14:03 Dose: 5,000 units Meropenem 500 mg/ Sodium (Chloride) 100 mls @ 100 mls/hr IVPB DAILY [facility]; Protocol Last Admin: 11/20/18 13:53 Dose: 100 mls/hr Metronidazole (Flagyl) 500 mg in 100 mls @ 100 mls/hr IVPB Q8H [facility]; Protocol Last Admin: 11/20/18 18:02 Dose: 100 mls/hr Micafungin Sodium 100 mg/ (Sodium Chloride) 100 mls @ 100 mls/hr IV Q24H [facility]; Protocol Last Admin: 11/20/18 19:58 Dose: 100 mls/hr Ceftazidime 1 gm/ Sodium (Chloride) 100 mls @ 100 mls/hr IV DAILY@1600 [facility]; Protocol Last Admin: 11/20/18 16:48 Dose: 100 mls/hr Insulin Aspart (Novolog) 0 unit SC Q6H [facility]; Protocol Last Admin: 11/20/18 18:08 Dose: 4 units Insulin Glargine (Lantus) 25 unit SC Q12 [facility] Last Admin: 11/20/18 11:02 Dose: Not Given Levetiracetam (Keppra) 1,000 mg PO BID [facility] Last Admin: 11/20/18 17:00 Dose: 1,000 mg Levothyroxine Sodium (Synthroid) 50 mcg PO 0600 [facility] Last Admin: 11/20/18 05:36 Dose: 50 mcg Nystatin (Nystop Topical Powder) 1 applic TOP BID [facility] Last Admin: 11/20/18 18:09 Dose: 1 applic Pantoprazole Sodium (Protonix Susp) 40 mg PO 0600 [facility] Last Admin: 11/20/18 05:36 Dose: 40 mg Rosuvastatin Calcium (Crestor) 10 mg PO HS [facility] Last Admin: 11/19/18 22:24 Dose: 10 mg Saccharomyces Boulardii (Florastor) 250 mg PO TID [facility] Last Admin: 11/20/18 17:00 Dose: 250 mg Sevelamer Carbonate (Renvela) 0.8 gm PEG TIDCC [facility] Last Admin: 11/20/18 17:00 Dose: 0.8 gm - Labs Labs: 11/17/18 07:24 11/16/18 07:30 PT 14.3 SECONDS (9.7-12.2) H 11/05/18 05:52 INR 1.3 11/05/18 05:52 APTT 43 SECONDS (21-34) H 11/05/18 05:52
--- NOTE | 2018-11-20 23:13 | CP.PCM.PN ---
Subjective - Date & Time of Evaluation Date of Evaluation: 11/20/18 Time of Evaluation: 23:13 - Subjective Subjective: Patient continues to have a fever. Today the dialysis attempted, blood pressure dropped. Pressure also on the low side. Diarrhea present. Overall prognosis very poor. Continue the Tylenol. Antibiotic and will follow the patient Objective - Vital Signs/Intake and Output Vital Signs (last 24 hours): Temp Pulse Resp BP Pulse Ox 102.5 F H 96 H 20 113/69 100 11/20/18 16:32 11/20/18 16:32 11/20/18 16:32 11/20/18 16:32 11/20/18 16:32 Intake and Output: 11/20/18 11/21/18 18:59 06:59 Intake Total 660 860 Balance 660 860 - Medications Medications: Current Medications Acetaminophen (Tylenol 650mg/20.3ml Solution Ud) 650 mg PO Q6 PRN PRN Reason: pain+fever Last Admin: 11/20/18 11:07 Dose: 650 mg Acyclovir (Zovirax 5% Oint) 1 gm EXT Q3H [facility] Last Admin: 11/20/18 18:09 Dose: 1 applic Amlodipine Besylate (Norvasc) 5 mg PO DAILY [facility] Last Admin: 11/20/18 11:03 Dose: Not Given Aspirin (Aspirin Chewable) 81 mg PO DAILY [facility] Last Admin: 11/20/18 11:01 Dose: 81 mg Dextrose (Dextrose 50% Inj) 0 ml IV STAT PRN; Protocol PRN Reason: Hypoglycemia Protocol Dextrose (Glutose 15) 0 gm PO ONCE PRN; Protocol PRN Reason: Hypoglycemia Protocol Epoetin Dedrick (Procrit) 10,000 unit IV TTS [facility] Last Admin: 11/20/18 11:20 Dose: 10,000 unit Glucagon (Glucagen Diagnostic Kit) 0 mg IM STAT PRN; Protocol PRN Reason: Hypoglycemia Protocol Heparin Sodium (Porcine) (Heparin) 5,000 units SC Q8 [facility] Last Admin: 11/20/18 21:55 Dose: 5,000 units Ceftazidime 1 gm/ Sodium (Chloride) 100 mls @ 100 mls/hr IV DAILY@1600 [facility]; Protocol Last Admin: 11/20/18 16:48 Dose: 100 mls/hr Insulin Aspart (Novolog) 0 unit SC Q6H [facility]; Protocol Last Admin: 11/20/18 18:08 Dose: 4 units Insulin Glargine (Lantus) 25 unit SC Q12 [facility] Last Admin: 11/20/18 21:56 Dose: 25 units Levetiracetam (Keppra) 1,000 mg PO BID [facility] Last Admin: 11/20/18 17:00 Dose: 1,000 mg Levothyroxine Sodium (Synthroid) 50 mcg PO 0600 [facility] Last Admin: 11/20/18 05:36 Dose: 50 mcg Metronidazole (Flagyl) 500 mg PEG Q8 [facility]; Protocol Nystatin (Nystop Topical Powder) 1 applic TOP BID [facility] Last Admin: 11/20/18 18:09 Dose: 1 applic Pantoprazole Sodium (Protonix Susp) 40 mg PO 0600 [facility] Last Admin: 11/20/18 05:36 Dose: 40 mg Rosuvastatin Calcium (Crestor) 10 mg PO HS [facility] Last Admin: 11/20/18 21:55 Dose: 10 mg Saccharomyces Boulardii (Florastor) 250 mg PO TID [facility] Last Admin: 11/20/18 17:00 Dose: 250 mg Sevelamer Carbonate (Renvela) 0.8 gm PEG TIDCC [facility] Last Admin: 11/20/18 17:00 Dose: 0.8 gm - Labs Labs: 11/17/18 07:24 11/16/18 07:30 PT 14.3 SECONDS (9.7-12.2) H 11/05/18 05:52 INR 1.3 11/05/18 05:52 APTT 43 SECONDS (21-34) H 11/05/18 05:52 Assessment and Plan (1) Acute on chronic renal failure Status: Acute (2) Diabetic nephropathy associated with type 2 diabetes mellitus Status: Acute (3) Uremia, acute Status: Acute
[2018-11-20] MEDS: MethylPREDNISolone 40 mg Vial IVP SCH (23:35)
--- NOTE | 2018-11-20 23:46 | PN ---
DATE: 11/20/2018 SUBJECTIVE: The patient is having T-max of 102.5, heart rate of 96. She continues to have diarrhea. PHYSICAL EXAMINATION: VITAL SIGNS: Her blood pressure is 113/69, respirations are 20. HEENT: Head is atraumatic, normocephalic. She has lip sores which are getting better. She remains anoxic. Trach site is unremarkable. LUNGS: Clear. HEART: S1 and S2, regular. ABDOMEN: Soft, nontender. PEG tube is present. PLAN: Her sputum culture showed Stenotrophomonas maltophilia, which is mostly sensitive to Fortaz. Bactrim is most of the time drug of the choice, but however, this patient has end-stage renal disease, so it is not appropriate to give Bactrim, but we will wait for the sensitivity. Have changed the meropenem to Fortaz and she is still having diarrhea. She has perirectal abscess, so we will add gram-positive coverage also at this time and change the Flagyl via the PEG, and hopefully fever will subside, otherwise we are running out of options. Sara Barrios MD
[2018-11-21] MEDS: Acyclovir 5% Oint (15 gm) EXT SCH ×5 (00:20→19:18)
[2018-11-21] MEDS: Pantoprazole 40 mg Susp UD PO SCH (05:58)
[2018-11-21] MEDS: Levothyroxine 50 MCG TAB PO SCH (06:20)
[2018-11-21] MEDS: (Novolog) Insulin Aspart, Recombinant 100 u/ml 10 ml vial SC SCH ×4 (06:30→18:23)
--- NOTE | 2018-11-21 07:21 | CP.PCM.PN ---
Subjective - Date & Time of Evaluation Date of Evaluation: 11/21/18 Time of Evaluation: 07:19 - Subjective Subjective: unresponsive on respirator was unable to tolerate HD yesterday due to unstable heart rate and bp cannot obtain ROS due to above Objective - Vital Signs/Intake and Output Vital Signs (last 24 hours): Temp Pulse Resp BP Pulse Ox 99.8 F H 88 24 132/76 99 11/21/18 03:52 11/21/18 03:52 11/21/18 03:52 11/21/18 03:52 11/21/18 03:52 Intake and Output: 11/21/18 11/21/18 06:59 18:59 Intake Total 1420 Balance 1420 - Medications Medications: Current Medications Acetaminophen (Tylenol 650mg/20.3ml Solution Ud) 650 mg PO Q6 PRN PRN Reason: pain+fever Last Admin: 11/20/18 11:07 Dose: 650 mg Acyclovir (Zovirax 5% Oint) 1 gm EXT Q3H [facility] Last Admin: 11/21/18 03:31 Dose: 1 applic Aspirin (Aspirin Chewable) 81 mg PO DAILY [facility] Last Admin: 11/20/18 11:01 Dose: 81 mg Dextrose (Dextrose 50% Inj) 0 ml IV STAT PRN; Protocol PRN Reason: Hypoglycemia Protocol Dextrose (Glutose 15) 0 gm PO ONCE PRN; Protocol PRN Reason: Hypoglycemia Protocol Epoetin Dedrick (Procrit) 10,000 unit IV TTS [facility] Last Admin: 11/20/18 11:20 Dose: 10,000 unit Glucagon (Glucagen Diagnostic Kit) 0 mg IM STAT PRN; Protocol PRN Reason: Hypoglycemia Protocol Ceftazidime 1 gm/ Sodium (Chloride) 100 mls @ 100 mls/hr IV DAILY@1600 [facility]; Protocol Last Admin: 11/20/18 16:48 Dose: 100 mls/hr Insulin Aspart (Novolog) 0 unit SC Q6H [facility]; Protocol Last Admin: 11/21/18 06:30 Dose: 10 units Insulin Glargine (Lantus) 25 unit SC Q12 [facility] Last Admin: 11/20/18 21:56 Dose: 25 units Levothyroxine Sodium (Synthroid) 50 mcg PO 0600 [facility] Last Admin: 11/21/18 06:20 Dose: 50 mcg Methylprednisolone (Solu-Medrol) 40 mg IVP Q12 [facility] Last Admin: 11/20/18 23:35 Dose: 40 mg Metronidazole (Flagyl) 500 mg PEG Q8 [facility]; Protocol Nystatin (Nystop Topical Powder) 1 applic TOP BID [facility] Last Admin: 11/20/18 18:09 Dose: 1 applic Pantoprazole Sodium (Protonix Susp) 40 mg PO 0600 [facility] Last Admin: 11/21/18 05:58 Dose: 40 mg Rosuvastatin Calcium (Crestor) 10 mg PO HS [facility] Last Admin: 11/20/18 21:55 Dose: 10 mg Saccharomyces Boulardii (Florastor) 250 mg PO TID [facility] Last Admin: 11/20/18 17:00 Dose: 250 mg Sevelamer Carbonate (Renvela) 0.8 gm PEG TIDCC [facility] Last Admin: 11/20/18 17:00 Dose: 0.8 gm - Labs Labs: 11/17/18 07:24 11/16/18 07:30 PT 14.3 SECONDS (9.7-12.2) H 11/05/18 05:52 INR 1.3 11/05/18 05:52 APTT 43 SECONDS (21-34) H 11/05/18 05:52 - Constitutional Appears: Chronically Ill - Head Exam Additional comments: herpetic rash over lips - Neck Exam Neck Exam: absent: Lymphadenopathy - Respiratory Exam Respiratory Exam: Decreased Breath Sounds. absent: Accessory Muscle Use - Cardiovascular Exam Cardiovascular Exam: Tachycardia. absent: Rubs - GI/Abdominal Exam GI & Abdominal Exam: Distended. absent: Tenderness - Neurological Exam Neurological Exam: absent: Awake Additional comments: involuntary movement of upper extremities Assessment and Plan - Assessment and Plan (Free Text) Assessment: attempt HD again today consideration to withdrawal of HD prognosis is poor
[2018-11-21] MEDS: Sevelamer Carb 0.8 gm/Packet PEG SCH ×3 (07:46→17:53)
[2018-11-21] MEDS: Saccharomyces Boulardi 250 mg Cap PO SCH ×3 (09:30→17:53)
[2018-11-21] MEDS: (Lantus) Insulin Glargine, Recombinant SC SCH ×2 (09:31→22:05)
[2018-11-21] MEDS: MethylPREDNISolone 40 mg Vial IVP SCH ×2 (09:31→22:05)
[2018-11-21] MEDS: Acetaminophen 650mg/20.3ml solution UD PO PRN (20:02)
[2018-11-22] MEDS: (Novolog) Insulin Aspart, Recombinant 100 u/ml 10 ml vial SC SCH ×4 (00:23→17:48)
[2018-11-22] MEDS: Acyclovir 5% Oint (15 gm) EXT SCH ×9 (00:26→22:10)
[2018-11-22] MEDS: Acetaminophen 650mg/20.3ml solution UD PO PRN ×3 (04:44→22:11)
[2018-11-22] MEDS: Levothyroxine 50 MCG TAB PO SCH (05:56)
[2018-11-22] MEDS: Pantoprazole 40 mg Susp UD PO SCH (05:56)
[2018-11-22 06:33] LABS: BASO % 0.1 % (0.0-2.0); HEMOGLOBIN 8.9 g/dL (11.0-16.0); LYMPH # 0.5 K/uL (1.0-4.3); LYMPH % 5.2 % (20.0-40.0); MEAN CELL VOLUME 92.2 fL (81.0-99.0); MEAN CORPUSCULAR HEMOGLOBIN 28.4 pg (27.0-31.0); MEAN CORPUSCULAR HGB CONC 30.8 g/dL (33.0-37.0); MEAN PLATELET VOLUME 10.7 fL (7.2-11.7); MONO # 0.2 K/uL (0.0-0.8); MONO % 1.7 % (0.0-10.0); NEUT # 8.1 K/uL (1.8-7.0); NRBC % 0.1 % (0.0-2.0); PLATELET COUNT 131 K/uL (130-400); RBC 3.13 Mil/uL (3.80-5.20); RED CELL DISTRIBUTION WIDTH 21.7 % (11.5-14.5); WHITE BLOOD COUNT 8.7 K/uL (4.8-10.8)
[2018-11-22 06:52] LABS: ALB/GLOB RATIO 0.9 (1.0-2.1); ALBUMIN 2.7 g/dL (3.5-5.0); CALCIUM 8.5 mg/dl (8.6-10.4)
[2018-11-22 08:12] LABS: LYMPHOCYTE 2 % (20-40); MONOCYTE 2 % (0-10); NEUTROPHIL 96 % (50-75); PLATELET ESTIMATE NORMAL (NORMAL); TOTAL CELLS COUNTED 100
[2018-11-22 08:13] LABS: ANISOCYTOSIS SLIGHT; HYPOCHROMIC SLIGHT; POIKILOCYTOSIS SLIGHT
[2018-11-22 08:14] LABS: GIANT PLATELETS PRESENT; OVALOCYTES SLIGHT; TARGET CELLS SLIGHT; TEARDROP CELLS SLIGHT
[2018-11-22] MEDS: Sevelamer Carb 0.8 gm/Packet PEG SCH ×3 (08:15→17:49)
[2018-11-22] MEDS ORDERED: Albumin Human 25% (12.5 gm/50 ml) IV PRN (08:50)
[2018-11-22] MEDS: Epoetin Alfa 10,000 unit/ml Dialysis IV SCH (09:10)
[2018-11-22] MEDS: Saccharomyces Boulardi 250 mg Cap PO SCH ×3 (10:15→17:48)
[2018-11-22] MEDS: (Lantus) Insulin Glargine, Recombinant SC SCH ×3 (10:15→22:06)
[2018-11-22] MEDS: MethylPREDNISolone 40 mg Vial IVP SCH ×2 (10:15→11:51)
--- NOTE | 2018-11-22 12:49 | CP.PCM.PN ---
Subjective - Date & Time of Evaluation Date of Evaluation: 11/22/18 Time of Evaluation: 12:46 - Subjective Subjective: pt seen and examined just finishes HD- 500 cc removed low Bp albumin given pt unresponsive ROS- unable to obtain Objective - Vital Signs/Intake and Output Vital Signs (last 24 hours): Temp Pulse Resp BP Pulse Ox 98.3 F 88 24 109/66 98 11/22/18 08:17 11/22/18 08:17 11/22/18 08:17 11/22/18 08:17 11/22/18 08:17 Intake and Output: 11/22/18 11/22/18 06:59 18:59 Intake Total 660 560 Balance 660 560 - Medications Medications: Current Medications Acetaminophen (Tylenol 650mg/20.3ml Solution Ud) 650 mg PO Q6 PRN PRN Reason: pain+fever Last Admin: 11/22/18 04:44 Dose: 650 mg Acyclovir (Zovirax 5% Oint) 1 gm EXT Q3H [facility] Last Admin: 11/22/18 09:26 Dose: 1 applic Albumin Human (Albumin Human 25% (12.5 Gm/50 Ml)) 12.5 gm IV TTS PRN PRN Reason: Hypotension Last Admin: 11/22/18 09:11 Dose: 12.5 gm Aspirin (Aspirin Chewable) 81 mg PO DAILY [facility] Last Admin: 11/22/18 10:15 Dose: Not Given Dextrose (Dextrose 50% Inj) 0 ml IV STAT PRN; Protocol PRN Reason: Hypoglycemia Protocol Dextrose (Glutose 15) 0 gm PO ONCE PRN; Protocol PRN Reason: Hypoglycemia Protocol Epoetin Dedrick (Procrit) 10,000 unit IV TTS [facility] Last Admin: 11/22/18 09:10 Dose: 10,000 unit Glucagon (Glucagen Diagnostic Kit) 0 mg IM STAT PRN; Protocol PRN Reason: Hypoglycemia Protocol Ceftazidime 1 gm/ Sodium (Chloride) 100 mls @ 100 mls/hr IV DAILY@1600 [facility]; Protocol Last Admin: 11/21/18 16:10 Dose: 100 mls/hr Insulin Aspart (Novolog) 0 unit SC Q6H [facility]; Protocol Last Admin: 11/22/18 11:58 Dose: Not Given Insulin Glargine (Lantus) 25 unit SC Q12 [facility] Last Admin: 11/22/18 11:25 Dose: 25 units Levothyroxine Sodium (Synthroid) 50 mcg PO 0600 [facility] Last Admin: 11/22/18 05:56 Dose: 50 mcg Methylprednisolone (Solu-Medrol) 40 mg IVP Q12 [facility] Last Admin: 11/22/18 11:51 Dose: 40 mg Metronidazole (Flagyl) 500 mg PEG Q8 [facility]; Protocol Last Admin: 11/22/18 05:56 Dose: 500 mg Nystatin (Nystop Topical Powder) 1 applic TOP BID [facility] Last Admin: 11/22/18 10:15 Dose: Not Given Pantoprazole Sodium (Protonix Susp) 40 mg PO 0600 [facility] Last Admin: 11/22/18 05:56 Dose: 40 mg Rosuvastatin Calcium (Crestor) 10 mg PO HS [facility] Last Admin: 11/21/18 22:05 Dose: 10 mg Saccharomyces Boulardii (Florastor) 250 mg PO TID [facility] Last Admin: 11/22/18 10:15 Dose: Not Given Sevelamer Carbonate (Renvela) 0.8 gm PEG TIDCC [facility] Last Admin: 11/22/18 12:01 Dose: 0.8 gm - Labs Labs: 11/22/18 06:22 11/22/18 06:22 PT 14.3 SECONDS (9.7-12.2) H 11/05/18 05:52 INR 1.3 11/05/18 05:52 APTT 43 SECONDS (21-34) H 11/05/18 05:52 - Constitutional Appears: Non-toxic, Chronically Ill - Head Exam Head Exam: ATRAUMATIC, NORMOCEPHALIC - Eye Exam Eye Exam: EOMI, PERRL - ENT Exam ENT Exam: Mucous Membranes Moist - Neck Exam Neck Exam: Full ROM - Respiratory Exam Respiratory Exam: absent: Rhonchi, Wheezes Additional comments: coarse Bilaterally - Cardiovascular Exam Cardiovascular Exam: REGULAR RHYTHM, +S1, +S2 - GI/Abdominal Exam GI & Abdominal Exam: Soft. absent: Tenderness Additional comments: + PEG - Extremities Exam Extremities Exam: absent: Joint Swelling, Pedal Edema - Neurological Exam Neurological Exam: absent: Alert, Awake, Oriented x3 - Psychiatric Exam Psychiatric exam: absent: Normal Affect, Normal Mood - Skin Skin Exam: Normal Color, Warm Assessment and Plan (1) Diabetic nephropathy associated with type 2 diabetes mellitus Status: Acute (2) ESRD (end stage renal disease) Status: Acute (3) Respiratory failure Status: Acute (4) Altered mental state Status: Acute (5) CAD (coronary artery disease) Status: Acute (6) Cardiomyopathy Status: Acute - Assessment and Plan (Free Text) Plan: HD today albumin for Bp support continue supportive care
--- NOTE | 2018-11-22 19:53 | CP.PCM.PN ---
Subjective - Date & Time of Evaluation Date of Evaluation: 11/22/18 Time of Evaluation: 19:52 - Subjective Subjective: Patient today slightly more awake, moving the upper extremities. But not responding. Received hemodialysis. Still having episodes of fever and high sugar noted. I spoke to the patient's family Objective - Vital Signs/Intake and Output Vital Signs (last 24 hours): Temp Pulse Resp BP Pulse Ox 100.9 F H 86 20 151/71 H 99 11/22/18 17:49 11/22/18 15:51 11/22/18 15:51 11/22/18 15:51 11/22/18 15:51 Intake and Output: 11/22/18 11/23/18 18:59 06:59 Intake Total 1220 Balance 1220 - Medications Medications: Current Medications Acetaminophen (Tylenol 650mg/20.3ml Solution Ud) 650 mg PO Q6 PRN PRN Reason: pain+fever Last Admin: 11/22/18 17:49 Dose: 650 mg Acyclovir (Zovirax 5% Oint) 1 gm EXT Q3H [facility] Last Admin: 11/22/18 13:20 Dose: 1 applic Albumin Human (Albumin Human 25% (12.5 Gm/50 Ml)) 12.5 gm IV TTS PRN PRN Reason: Hypotension Last Admin: 11/22/18 09:11 Dose: 12.5 gm Aspirin (Aspirin Chewable) 81 mg PO DAILY [facility] Last Admin: 11/22/18 10:15 Dose: Not Given Dextrose (Dextrose 50% Inj) 0 ml IV STAT PRN; Protocol PRN Reason: Hypoglycemia Protocol Dextrose (Glutose 15) 0 gm PO ONCE PRN; Protocol PRN Reason: Hypoglycemia Protocol Epoetin Dedrick (Procrit) 10,000 unit IV TTS [facility] Last Admin: 11/22/18 09:10 Dose: 10,000 unit Glucagon (Glucagen Diagnostic Kit) 0 mg IM STAT PRN; Protocol PRN Reason: Hypoglycemia Protocol Ceftazidime 1 gm/ Sodium (Chloride) 100 mls @ 100 mls/hr IV DAILY@1600 [facility]; Protocol Last Admin: 11/22/18 16:23 Dose: 100 mls/hr Insulin Aspart (Novolog) 0 unit SC Q6H [facility]; Protocol Last Admin: 11/22/18 17:48 Dose: 8 units Insulin Glargine (Lantus) 25 unit SC Q12 [facility] Last Admin: 11/22/18 11:25 Dose: 25 units Levothyroxine Sodium (Synthroid) 50 mcg PO 0600 [facility] Last Admin: 11/22/18 05:56 Dose: 50 mcg Methylprednisolone (Solu-Medrol) 40 mg IVP DAILY [facility] Metronidazole (Flagyl) 500 mg PEG Q8 [facility]; Protocol Last Admin: 11/22/18 13:19 Dose: 500 mg Nystatin (Nystop Topical Powder) 1 applic TOP BID [facility] Last Admin: 11/22/18 10:15 Dose: Not Given Pantoprazole Sodium (Protonix Susp) 40 mg PO 0600 [facility] Last Admin: 11/22/18 05:56 Dose: 40 mg Rosuvastatin Calcium (Crestor) 10 mg PO HS [facility] Last Admin: 11/21/18 22:05 Dose: 10 mg Saccharomyces Boulardii (Florastor) 250 mg PO TID [facility] Last Admin: 11/22/18 17:48 Dose: 250 mg Sevelamer Carbonate (Renvela) 0.8 gm PEG TIDCC [facility] Last Admin: 11/22/18 17:49 Dose: 0.8 gm - Labs Labs: 11/22/18 06:22 11/22/18 06:22 PT 14.3 SECONDS (9.7-12.2) H 11/05/18 05:52 INR 1.3 11/05/18 05:52 APTT 43 SECONDS (21-34) H 11/05/18 05:52 Assessment and Plan (1) Acute on chronic renal failure Status: Acute (2) Diabetic nephropathy associated with type 2 diabetes mellitus Status: Acute (3) Uremia, acute Status: Acute
--- NOTE | 2018-11-22 21:01 | CP.PCM.PN ---
Subjective - Date & Time of Evaluation Date of Evaluation: 11/22/18 Time of Evaluation: 16:00 - Subjective Subjective: dictated Objective - Vital Signs/Intake and Output Vital Signs (last 24 hours): Temp Pulse Resp BP Pulse Ox 100.9 F H 86 20 151/71 H 99 11/22/18 17:49 11/22/18 15:51 11/22/18 15:51 11/22/18 15:51 11/22/18 15:51 Intake and Output: 11/22/18 11/23/18 18:59 06:59 Intake Total 1220 Balance 1220 - Medications Medications: Current Medications Acetaminophen (Tylenol 650mg/20.3ml Solution Ud) 650 mg PO Q6 PRN PRN Reason: pain+fever Last Admin: 11/22/18 17:49 Dose: 650 mg Acyclovir (Zovirax 5% Oint) 1 gm EXT Q3H [facility] Last Admin: 11/22/18 13:20 Dose: 1 applic Albumin Human (Albumin Human 25% (12.5 Gm/50 Ml)) 12.5 gm IV TTS PRN PRN Reason: Hypotension Last Admin: 11/22/18 09:11 Dose: 12.5 gm Aspirin (Aspirin Chewable) 81 mg PO DAILY [facility] Last Admin: 11/22/18 10:15 Dose: Not Given Dextrose (Dextrose 50% Inj) 0 ml IV STAT PRN; Protocol PRN Reason: Hypoglycemia Protocol Dextrose (Glutose 15) 0 gm PO ONCE PRN; Protocol PRN Reason: Hypoglycemia Protocol Epoetin Dedrick (Procrit) 10,000 unit IV TTS [facility] Last Admin: 11/22/18 09:10 Dose: 10,000 unit Glucagon (Glucagen Diagnostic Kit) 0 mg IM STAT PRN; Protocol PRN Reason: Hypoglycemia Protocol Ceftazidime 1 gm/ Sodium (Chloride) 100 mls @ 100 mls/hr IV DAILY@1600 [facility]; Protocol Last Admin: 11/22/18 16:23 Dose: 100 mls/hr Insulin Aspart (Novolog) 0 unit SC Q6H [facility]; Protocol Last Admin: 11/22/18 17:48 Dose: 8 units Insulin Glargine (Lantus) 25 unit SC Q12 [facility] Last Admin: 11/22/18 11:25 Dose: 25 units Levothyroxine Sodium (Synthroid) 50 mcg PO 0600 [facility] Last Admin: 11/22/18 05:56 Dose: 50 mcg Methylprednisolone (Solu-Medrol) 40 mg IVP DAILY [facility] Metronidazole (Flagyl) 500 mg PEG Q8 [facility]; Protocol Last Admin: 11/22/18 13:19 Dose: 500 mg Nystatin (Nystop Topical Powder) 1 applic TOP BID [facility] Last Admin: 11/22/18 10:15 Dose: Not Given Pantoprazole Sodium (Protonix Susp) 40 mg PO 0600 [facility] Last Admin: 11/22/18 05:56 Dose: 40 mg Rosuvastatin Calcium (Crestor) 10 mg PO HS [facility] Last Admin: 11/21/18 22:05 Dose: 10 mg Saccharomyces Boulardii (Florastor) 250 mg PO TID [facility] Last Admin: 11/22/18 17:48 Dose: 250 mg Sevelamer Carbonate (Renvela) 0.8 gm PEG TIDCC [facility] Last Admin: 11/22/18 17:49 Dose: 0.8 gm - Labs Labs: 11/22/18 06:22 11/22/18 06:22 PT 14.3 SECONDS (9.7-12.2) H 11/05/18 05:52 INR 1.3 11/05/18 05:52 APTT 43 SECONDS (21-34) H 11/05/18 05:52
[2018-11-23] MEDS: Acyclovir 5% Oint (15 gm) EXT SCH ×9 (00:33→21:24)
[2018-11-23] MEDS: (Novolog) Insulin Aspart, Recombinant 100 u/ml 10 ml vial SC SCH ×4 (00:33→17:53)
--- NOTE | 2018-11-23 02:27 | PN ---
DATE: 11/22/2018 INFECTIOUS DISEASE FOLLOWUP SUBJECTIVE: The patient was seen today. She remains anoxic with less hand movements. Her lips were little better. PHYSICAL EXAMINATION: VITAL SIGNS: T-max is 100.9, off and on has fever spikes. NECK: Trach site appears unremarkable. LUNGS: Clear. Occasional rhonchi. Still diet through the vein. HEART: S1 and S2 are regular. ABDOMEN: Remains with the PEG tube. EXTREMITIES: No edema. BACK: She has a sacral wound which is getting dressing everyday. LABORATORY DATA: White count is 8.7, hemoglobin 8.9, hematocrit 28.8, platelet count is 131. Neutrophils are 93 on the machine differential. BUN is 116, creatinine being 6.2. Sugars are being monitored. ASSESSMENT AND PLAN: The micro Stenotrophomonas maltophilia was sensitive to Fortaz which she is getting and she is on Flagyl right now via the tube and also is getting Zovirax cream to the lips. We will continue this treatment for 7 to 10 days with the Fortaz and Flagyl. She has fevers most likely related to the decubitus, could be due to central fevers. She is also on prednisone which has been discontinued today. We will follow. The patient's family is still waiting to decide about comfort care. Sara Barrios MD
[2018-11-23] MEDS: Acetaminophen 650mg/20.3ml solution UD PO PRN ×3 (04:50→21:22)
[2018-11-23] MEDS: Levothyroxine 50 MCG TAB PO SCH (05:06)
[2018-11-23] MEDS: Pantoprazole 40 mg Susp UD PO SCH (05:06)
[2018-11-23 08:26] LABS: HEMOGLOBIN 8.7 g/dL (11.0-16.0); MEAN CELL VOLUME 93.7 fL (81.0-99.0); MEAN CORPUSCULAR HEMOGLOBIN 29.2 pg (27.0-31.0); MEAN CORPUSCULAR HGB CONC 31.1 g/dL (33.0-37.0); MEAN PLATELET VOLUME 10.9 fL (7.2-11.7); RBC 2.97 Mil/uL (3.80-5.20); RED CELL DISTRIBUTION WIDTH 20.8 % (11.5-14.5); WHITE BLOOD COUNT 7.9 K/uL (4.8-10.8)
[2018-11-23] MEDS: Sevelamer Carb 0.8 gm/Packet PEG SCH ×3 (08:40→17:48)
[2018-11-23] MEDS: (Lantus) Insulin Glargine, Recombinant SC SCH ×2 (09:50→21:18)
[2018-11-23] MEDS: MethylPREDNISolone 40 mg Vial IVP SCH (09:51)
[2018-11-23] MEDS: Saccharomyces Boulardi 250 mg Cap PO SCH ×3 (09:51→17:48)
[2018-11-23] MEDS: DAPTOmycin 500 MG in Sodium Chloride 0.9% 100 ML IV SCH (21:17)
[2018-11-24] MEDS: (Novolog) Insulin Aspart, Recombinant 100 u/ml 10 ml vial SC SCH ×4 (00:22→18:55)
[2018-11-24] MEDS: Acetaminophen 650mg/20.3ml solution UD PO PRN (03:26)
[2018-11-24] MEDS: Acyclovir 5% Oint (15 gm) EXT SCH ×8 (03:27→21:21)
[2018-11-24] MEDS: Levothyroxine 50 MCG TAB PO SCH (05:22)
[2018-11-24] MEDS: Pantoprazole 40 mg Susp UD PO SCH (05:22)
--- NOTE | 2018-11-24 08:58 | CP.PCM.PN ---
Subjective - Date & Time of Evaluation Date of Evaluation: 11/24/18 Time of Evaluation: 08:56 - Subjective Subjective: pt seen and examined no new changes on vent, unresponsive minimal Fio2 requirement ros- unable to obtain as unresponsive Objective - Vital Signs/Intake and Output Vital Signs (last 24 hours): Temp Pulse Resp BP Pulse Ox 102.8 F H 87 20 134/69 99 11/24/18 03:26 11/24/18 00:00 11/24/18 00:00 11/24/18 00:00 11/24/18 00:00 Intake and Output: 11/24/18 11/24/18 06:59 18:59 Intake Total 560 Balance 560 - Medications Medications: Current Medications Acetaminophen (Tylenol 650mg/20.3ml Solution Ud) 650 mg PO Q6 PRN PRN Reason: pain+fever Last Admin: 11/24/18 03:26 Dose: 650 mg Acyclovir (Zovirax 5% Oint) 1 gm EXT Q3H [facility] Last Admin: 11/24/18 05:37 Dose: 1 applic Albumin Human (Albumin Human 25% (12.5 Gm/50 Ml)) 12.5 gm IV TTS PRN PRN Reason: Hypotension Last Admin: 11/22/18 09:11 Dose: 12.5 gm Dextrose (Dextrose 50% Inj) 0 ml IV STAT PRN; Protocol PRN Reason: Hypoglycemia Protocol Dextrose (Glutose 15) 0 gm PO ONCE PRN; Protocol PRN Reason: Hypoglycemia Protocol Epoetin Dedrick (Procrit) 10,000 unit IV TTS [facility] Last Admin: 11/22/18 09:10 Dose: 10,000 unit Glucagon (Glucagen Diagnostic Kit) 0 mg IM STAT PRN; Protocol PRN Reason: Hypoglycemia Protocol Hydrocortisone (Cortef) 5 mg PO Q12 [facility] Last Admin: 11/23/18 21:17 Dose: 5 mg Ceftazidime 1 gm/ Sodium (Chloride) 100 mls @ 100 mls/hr IV DAILY@1600 [facility]; Protocol Last Admin: 11/23/18 16:38 Dose: 100 mls/hr Daptomycin 500 mg/ Sodium (Chloride) 100 mls @ 100 mls/hr IV Q48H [facility]; Protocol Stop: 11/28/18 20:46 Last Admin: 11/23/18 21:17 Dose: 100 mls/hr Insulin Aspart (Novolog) 0 unit SC Q6H [facility]; Protocol Last Admin: 11/24/18 06:38 Dose: 2 units Insulin Glargine (Lantus) 25 unit SC Q12 [facility] Last Admin: 11/23/18 21:18 Dose: 25 units Levothyroxine Sodium (Synthroid) 50 mcg PO 0600 [facility] Last Admin: 11/24/18 05:22 Dose: 50 mcg Methylprednisolone (Solu-Medrol) 40 mg IVP DAILY [facility] Last Admin: 11/23/18 09:51 Dose: 40 mg Metronidazole (Flagyl) 500 mg PEG Q8 [facility]; Protocol Last Admin: 11/24/18 05:22 Dose: 500 mg Nystatin (Nystop Topical Powder) 1 applic TOP BID [facility] Last Admin: 11/23/18 17:49 Dose: 1 applic Pantoprazole Sodium (Protonix Susp) 40 mg PO 0600 [facility] Last Admin: 11/24/18 05:22 Dose: 40 mg Rosuvastatin Calcium (Crestor) 10 mg PO HS [facility] Last Admin: 11/23/18 21:18 Dose: 10 mg Saccharomyces Boulardii (Florastor) 250 mg PO TID [facility] Last Admin: 11/23/18 17:48 Dose: 250 mg Sevelamer Carbonate (Renvela) 0.8 gm PEG TIDCC [facility] Last Admin: 11/23/18 17:48 Dose: 0.8 gm - Labs Labs: 11/23/18 08:02 11/22/18 06:22 PT 14.3 SECONDS (9.7-12.2) H 11/05/18 05:52 INR 1.3 11/05/18 05:52 APTT 43 SECONDS (21-34) H 11/05/18 05:52 - Constitutional Appears: Non-toxic, Chronically Ill - Head Exam Head Exam: ATRAUMATIC, NORMOCEPHALIC - Eye Exam Eye Exam: EOMI - ENT Exam ENT Exam: Mucous Membranes Moist - Neck Exam Neck Exam: Full ROM - Respiratory Exam Respiratory Exam: absent: Rhonchi, Wheezes - Cardiovascular Exam Cardiovascular Exam: REGULAR RHYTHM, +S1, +S2 - GI/Abdominal Exam GI & Abdominal Exam: Soft Additional comments: PEG in place - Extremities Exam Extremities Exam: absent: Pedal Edema - Neurological Exam Neurological Exam: absent: Alert, Awake, Oriented x3 - Skin Skin Exam: Normal Color, Warm Assessment and Plan (1) Diabetic nephropathy associated with type 2 diabetes mellitus Status: Acute (2) ESRD (end stage renal disease) Status: Acute (3) Respiratory failure Status: Acute (4) Altered mental state Status: Acute (5) CAD (coronary artery disease) Status: Acute (6) Cardiomyopathy Status: Acute - Assessment and Plan (Free Text) Plan: HD today high BUN secondary to steroids ABx as per ID epogen for anemia poor prognosis
[2018-11-24] MEDS: MethylPREDNISolone 40 mg Vial IVP SCH (10:43)
[2018-11-24] MEDS: Sevelamer Carb 0.8 gm/Packet PEG SCH ×3 (10:43→16:01)
[2018-11-24] MEDS: Saccharomyces Boulardi 250 mg Cap PO SCH ×4 (10:43→18:00)
[2018-11-24] MEDS: (Lantus) Insulin Glargine, Recombinant SC SCH ×2 (10:44→21:18)
[2018-11-24] MEDS: Epoetin Alfa 10,000 unit/ml Dialysis IV SCH (16:05)
[2018-11-25] MEDS: Acyclovir 5% Oint (15 gm) EXT SCH ×9 (00:10→23:43)
[2018-11-25] MEDS: (Novolog) Insulin Aspart, Recombinant 100 u/ml 10 ml vial SC SCH ×4 (00:16→18:41)
[2018-11-25] MEDS: Acetaminophen 650mg/20.3ml solution UD PO PRN ×4 (00:17→23:43)
[2018-11-25] MEDS: Pantoprazole 40 mg Susp UD PO SCH (05:42)
[2018-11-25] MEDS: Levothyroxine 50 MCG TAB PO SCH (05:42)
[2018-11-25] MEDS: (Lantus) Insulin Glargine, Recombinant SC SCH ×2 (10:07→21:42)
[2018-11-25] MEDS: Sevelamer Carb 0.8 gm/Packet PEG SCH ×3 (10:07→16:14)
[2018-11-25] MEDS: MethylPREDNISolone 40 mg Vial IVP SCH (10:07)
[2018-11-25] MEDS: Saccharomyces Boulardi 250 mg Cap PO SCH ×3 (10:08→18:41)
[2018-11-25] MEDS: Acetylcysteine 20% Inhal Soln (4ml) INH PRN (12:00)
[2018-11-25] MEDS: Albuterol-Ipratrop 3 mg / 0.5 (3 ml) UD INH PRN (12:00)
[2018-11-25] MEDS: DAPTOmycin 500 MG in Sodium Chloride 0.9% 100 ML IV SCH (21:41)
[2018-11-26] MEDS: (Novolog) Insulin Aspart, Recombinant 100 u/ml 10 ml vial SC SCH ×4 (00:39→18:11)
[2018-11-26] MEDS: Acyclovir 5% Oint (15 gm) EXT SCH ×6 (03:40→21:30)
[2018-11-26] MEDS: Levothyroxine 50 MCG TAB PO SCH (06:07)
[2018-11-26] MEDS: Pantoprazole 40 mg Susp UD PO SCH (06:08)
[2018-11-26] MEDS: Sevelamer Carb 0.8 gm/Packet PEG SCH ×3 (08:30→17:37)
[2018-11-26] MEDS: Saccharomyces Boulardi 250 mg Cap PO SCH ×2 (10:04→17:33)
[2018-11-26] MEDS: (Lantus) Insulin Glargine, Recombinant SC SCH ×2 (10:04→21:33)
[2018-11-26] MEDS: MethylPREDNISolone 40 mg Vial IVP SCH (10:05)
--- NOTE | 2018-11-26 12:07 | CP.PCM.PN ---
Subjective - Date & Time of Evaluation Date of Evaluation: 11/26/18 Time of Evaluation: 12:05 - Subjective Subjective: nonverbal on vent getting tube feeds family at side involuntary movement of left arm right arm contracted cannot obtain ROS due to above Objective - Vital Signs/Intake and Output Vital Signs (last 24 hours): Temp Pulse Resp BP Pulse Ox 98.9 F 96 H 20 145/72 100 11/26/18 07:30 11/26/18 07:30 11/26/18 07:30 11/26/18 07:30 11/26/18 07:30 Intake and Output: 11/26/18 11/26/18 06:59 18:59 Intake Total 660 560 Balance 660 560 - Medications Medications: Current Medications Acetaminophen (Tylenol 650mg/20.3ml Solution Ud) 650 mg PO Q6 PRN PRN Reason: pain+fever Last Admin: 11/25/18 23:43 Dose: 650 mg Acetylcysteine (Acetylcysteine 20%) 4 ml INH BID PRN PRN Reason: Cough and congestion Last Admin: 11/25/18 12:00 Dose: 4 ml Acyclovir (Zovirax 5% Oint) 1 gm EXT Q3H [facility] Last Admin: 11/26/18 10:05 Dose: 1 applic Albumin Human (Albumin Human 25% (12.5 Gm/50 Ml)) 12.5 gm IV TTS PRN PRN Reason: Hypotension Last Admin: 11/22/18 09:11 Dose: 12.5 gm Albuterol/Ipratropium (Duoneb 3 Mg/0.5 Mg (3 Ml) Ud) 3 ml INH RQ6 PRN PRN Reason: Cough and congestion Last Admin: 11/25/18 12:00 Dose: 3 ml Dextrose (Dextrose 50% Inj) 0 ml IV STAT PRN; Protocol PRN Reason: Hypoglycemia Protocol Dextrose (Glutose 15) 0 gm PO ONCE PRN; Protocol PRN Reason: Hypoglycemia Protocol Epoetin Dedrick (Procrit) 10,000 unit IV TTS [facility] Last Admin: 11/24/18 16:05 Dose: 10,000 unit Glucagon (Glucagen Diagnostic Kit) 0 mg IM STAT PRN; Protocol PRN Reason: Hypoglycemia Protocol Hydrocortisone (Cortef) 5 mg PO Q12 [facility] Last Admin: 11/26/18 10:02 Dose: 5 mg Ceftazidime 1 gm/ Sodium (Chloride) 100 mls @ 100 mls/hr IV DAILY@1600 [facility]; Protocol Last Admin: 11/25/18 16:15 Dose: 100 mls/hr Daptomycin 500 mg/ Sodium (Chloride) 100 mls @ 100 mls/hr IV Q48H [facility]; Protocol Stop: 11/28/18 20:46 Last Admin: 11/25/18 21:41 Dose: 100 mls/hr Insulin Aspart (Novolog) 0 unit SC Q6H [facility]; Protocol Last Admin: 11/26/18 06:54 Dose: 6 units Insulin Glargine (Lantus) 25 unit SC Q12 [facility] Last Admin: 11/26/18 10:04 Dose: 25 units Levothyroxine Sodium (Synthroid) 50 mcg PO 0600 [facility] Last Admin: 11/26/18 06:07 Dose: 50 mcg Methylprednisolone (Solu-Medrol) 40 mg IVP DAILY [facility] Last Admin: 11/26/18 10:05 Dose: 40 mg Metronidazole (Flagyl) 500 mg PEG Q8 [facility]; Protocol Last Admin: 11/26/18 06:07 Dose: 500 mg Nystatin (Nystop Topical Powder) 1 applic TOP BID [facility] Last Admin: 11/26/18 10:11 Dose: 1 applic Pantoprazole Sodium (Protonix Susp) 40 mg PO 0600 [facility] Last Admin: 11/26/18 06:08 Dose: 40 mg Rosuvastatin Calcium (Crestor) 10 mg PO HS [facility] Last Admin: 11/25/18 21:42 Dose: 10 mg Saccharomyces Boulardii (Florastor) 250 mg PO TID [facility] Last Admin: 11/26/18 10:04 Dose: 250 mg Sevelamer Carbonate (Renvela) 0.8 gm PEG TIDCC [facility] Last Admin: 11/26/18 08:30 Dose: 0.8 gm - Labs Labs: 11/23/18 08:02 11/22/18 06:22 PT 14.3 SECONDS (9.7-12.2) H 11/05/18 05:52 INR 1.3 11/05/18 05:52 APTT 43 SECONDS (21-34) H 11/05/18 05:52 - Constitutional Appears: Non-toxic, No Acute Distress - Head Exam Additional comments: lesions around lips - Neck Exam Neck Exam: Full ROM. absent: Lymphadenopathy - Respiratory Exam Respiratory Exam: Decreased Breath Sounds. absent: Accessory Muscle Use - Cardiovascular Exam Cardiovascular Exam: absent: JVD, Rubs - GI/Abdominal Exam GI & Abdominal Exam: Distended, Soft. absent: Tenderness - Extremities Exam Extremities Exam: Pedal Edema - Neurological Exam Neurological Exam: absent: Alert, Awake Assessment and Plan - Assessment and Plan (Free Text) Plan: maint HD for tomorrow continue same poor prognosis
--- NOTE | 2018-11-26 19:31 | CP.PCM.PN ---
Subjective - Date & Time of Evaluation Date of Evaluation: 11/26/18 Time of Evaluation: 15:00 - Subjective Subjective: dictated Objective - Vital Signs/Intake and Output Vital Signs (last 24 hours): Temp Pulse Resp BP Pulse Ox 98.3 F 98 H 18 129/61 98 11/26/18 15:58 11/26/18 15:58 11/26/18 15:58 11/26/18 15:58 11/26/18 15:58 Intake and Output: 11/26/18 11/27/18 18:59 06:59 Intake Total 1120 Balance 1120 - Medications Medications: Current Medications Acetaminophen (Tylenol 650mg/20.3ml Solution Ud) 650 mg PO Q6 PRN PRN Reason: pain+fever Last Admin: 11/25/18 23:43 Dose: 650 mg Acetylcysteine (Acetylcysteine 20%) 4 ml INH BID PRN PRN Reason: Cough and congestion Last Admin: 11/25/18 12:00 Dose: 4 ml Acyclovir (Zovirax 5% Oint) 1 gm EXT Q3H [facility] Last Admin: 11/26/18 10:05 Dose: 1 applic Albumin Human (Albumin Human 25% (12.5 Gm/50 Ml)) 12.5 gm IV TTS PRN PRN Reason: Hypotension Last Admin: 11/22/18 09:11 Dose: 12.5 gm Albuterol/Ipratropium (Duoneb 3 Mg/0.5 Mg (3 Ml) Ud) 3 ml INH RQ6 PRN PRN Reason: Cough and congestion Last Admin: 11/25/18 12:00 Dose: 3 ml Dextrose (Dextrose 50% Inj) 0 ml IV STAT PRN; Protocol PRN Reason: Hypoglycemia Protocol Dextrose (Glutose 15) 0 gm PO ONCE PRN; Protocol PRN Reason: Hypoglycemia Protocol Epoetin Dedrick (Procrit) 10,000 unit IV TTS [facility] Last Admin: 11/24/18 16:05 Dose: 10,000 unit Glucagon (Glucagen Diagnostic Kit) 0 mg IM STAT PRN; Protocol PRN Reason: Hypoglycemia Protocol Hydrocortisone (Cortef) 5 mg PO Q12 [facility] Last Admin: 11/26/18 10:02 Dose: 5 mg Ceftazidime 1 gm/ Sodium (Chloride) 100 mls @ 100 mls/hr IV DAILY@1600 [facility]; Protocol Last Admin: 11/26/18 16:05 Dose: 100 mls/hr Daptomycin 500 mg/ Sodium (Chloride) 100 mls @ 100 mls/hr IV Q48H [facility]; Protocol Stop: 11/28/18 20:46 Last Admin: 11/25/18 21:41 Dose: 100 mls/hr Insulin Aspart (Novolog) 0 unit SC Q6H [facility]; Protocol Last Admin: 11/26/18 18:11 Dose: 6 units Insulin Glargine (Lantus) 25 unit SC Q12 [facility] Last Admin: 11/26/18 10:04 Dose: 25 units Levothyroxine Sodium (Synthroid) 50 mcg PO 0600 [facility] Last Admin: 11/26/18 06:07 Dose: 50 mcg Methylprednisolone (Solu-Medrol) 40 mg IVP DAILY [facility] Last Admin: 11/26/18 10:05 Dose: 40 mg Metronidazole (Flagyl) 500 mg PEG Q8 [facility]; Protocol Last Admin: 11/26/18 14:26 Dose: 500 mg Nystatin (Nystop Topical Powder) 1 applic TOP BID [facility] Last Admin: 11/26/18 17:34 Dose: 1 applic Pantoprazole Sodium (Protonix Susp) 40 mg PO 0600 [facility] Last Admin: 11/26/18 06:08 Dose: 40 mg Rosuvastatin Calcium (Crestor) 10 mg PO HS [facility] Last Admin: 11/25/18 21:42 Dose: 10 mg Saccharomyces Boulardii (Florastor) 250 mg PO TID [facility] Last Admin: 11/26/18 17:33 Dose: 250 mg Sevelamer Carbonate (Renvela) 0.8 gm PEG TIDCC [facility] Last Admin: 11/26/18 17:37 Dose: 0.8 gm - Labs Labs: 11/23/18 08:02 11/22/18 06:22 PT 14.3 SECONDS (9.7-12.2) H 11/05/18 05:52 INR 1.3 11/05/18 05:52 APTT 43 SECONDS (21-34) H 11/05/18 05:52
--- NOTE | 2018-11-27 00:11 | PN ---
DATE: 11/26/2018 SUBJECTIVE: The patient still continues to spike in the early mornings and late nights. Her fever remains whether central or due to the sacral decubitus, and due to sacral decubitus, it is not controlled with IV antibiotics. Her lips are much better now. She still remains on the trach vent that she remains unresponsive. PHYSICAL EXAMINATION: NECK: Supple. LUNGS: Clear. HEART: S1 and S1 are regular. ABDOMEN: Soft and nontender. EXTREMITIES: __Patient has ___ with foot protectors covering most of the legs. ASSESSMENT AND PLAN: At this time, we are waiting for the family to decide their next move. She is seen by multiple consultants, and no change in her mental status noted. Sara Barrios MD MTDD
[2018-11-27] MEDS: (Novolog) Insulin Aspart, Recombinant 100 u/ml 10 ml vial SC SCH ×4 (00:23→18:00)
[2018-11-27] MEDS: Acyclovir 5% Oint (15 gm) EXT SCH ×9 (00:30→21:41)
[2018-11-27] MEDS: Acetaminophen 650mg/20.3ml solution UD PO PRN (02:00)
[2018-11-27] MEDS: Levothyroxine 50 MCG TAB PO SCH (05:25)
[2018-11-27] MEDS: Pantoprazole 40 mg Susp UD PO SCH (05:25)
[2018-11-27] MEDS: Albuterol-Ipratrop 3 mg / 0.5 (3 ml) UD INH PRN (07:30)
[2018-11-27] MEDS: MethylPREDNISolone 40 mg Vial IVP SCH (09:54)
[2018-11-27] MEDS: Sevelamer Carb 0.8 gm/Packet PEG SCH ×3 (09:54→17:14)
[2018-11-27] MEDS: Saccharomyces Boulardi 250 mg Cap PO SCH ×3 (09:54→17:14)
[2018-11-27] MEDS: (Lantus) Insulin Glargine, Recombinant SC SCH ×2 (09:55→21:30)
[2018-11-27] MEDS: Epoetin Alfa 10,000 unit/ml Dialysis IV SCH (10:31)
--- NOTE | 2018-11-27 11:39 | CP.PCM.PN ---
Subjective - Date & Time of Evaluation Date of Evaluation: 11/27/18 Time of Evaluation: 11:30 - Subjective Subjective: presently on dialysis unresponsive non purposefull movements noted unable to obtain ROS,non verbal Objective - Vital Signs/Intake and Output Vital Signs (last 24 hours): Temp Pulse Resp BP Pulse Ox 101.3 F H 93 H 14 140/71 100 11/27/18 09:15 11/27/18 09:15 11/27/18 09:15 11/27/18 10:45 11/27/18 09:15 Intake and Output: 11/27/18 11/27/18 06:59 18:59 Intake Total 460 560 Balance 460 560 - Medications Medications: Current Medications Acetaminophen (Tylenol 650mg/20.3ml Solution Ud) 650 mg PO Q6 PRN PRN Reason: pain+fever Last Admin: 11/27/18 02:00 Dose: 650 mg Acetylcysteine (Acetylcysteine 20%) 4 ml INH BID PRN PRN Reason: Cough and congestion Last Admin: 11/25/18 12:00 Dose: 4 ml Acyclovir (Zovirax 5% Oint) 1 gm EXT Q3H [facility] Last Admin: 11/27/18 09:56 Dose: 1 applic Albumin Human (Albumin Human 25% (12.5 Gm/50 Ml)) 12.5 gm IV TTS PRN PRN Reason: Hypotension Last Admin: 11/22/18 09:11 Dose: 12.5 gm Albuterol/Ipratropium (Duoneb 3 Mg/0.5 Mg (3 Ml) Ud) 3 ml INH RQ6 PRN PRN Reason: Cough and congestion Last Admin: 11/27/18 07:30 Dose: 3 ml Dextrose (Dextrose 50% Inj) 0 ml IV STAT PRN; Protocol PRN Reason: Hypoglycemia Protocol Dextrose (Glutose 15) 0 gm PO ONCE PRN; Protocol PRN Reason: Hypoglycemia Protocol Epoetin Dedrick (Procrit) 10,000 unit IV TTS [facility] Last Admin: 11/27/18 10:31 Dose: 10,000 unit Glucagon (Glucagen Diagnostic Kit) 0 mg IM STAT PRN; Protocol PRN Reason: Hypoglycemia Protocol Hydrocortisone (Cortef) 5 mg PO Q12 [facility] Last Admin: 11/27/18 09:54 Dose: 5 mg Ceftazidime 1 gm/ Sodium (Chloride) 100 mls @ 100 mls/hr IV DAILY@1600 [facility]; Protocol Last Admin: 11/26/18 16:05 Dose: 100 mls/hr Daptomycin 500 mg/ Sodium (Chloride) 100 mls @ 100 mls/hr IV Q48H [facility]; Protocol Stop: 11/28/18 20:46 Last Admin: 11/25/18 21:41 Dose: 100 mls/hr Insulin Aspart (Novolog) 0 unit SC Q6H [facility]; Protocol Last Admin: 11/27/18 06:31 Dose: 6 units Insulin Glargine (Lantus) 25 unit SC Q12 [facility] Last Admin: 11/27/18 09:55 Dose: 25 units Levothyroxine Sodium (Synthroid) 50 mcg PO 0600 [facility] Last Admin: 11/27/18 05:25 Dose: 50 mcg Methylprednisolone (Solu-Medrol) 40 mg IVP DAILY [facility] Last Admin: 11/27/18 09:54 Dose: 40 mg Metronidazole (Flagyl) 500 mg PEG Q8 [facility]; Protocol Last Admin: 11/27/18 05:25 Dose: 500 mg Pantoprazole Sodium (Protonix Susp) 40 mg PO 0600 [facility] Last Admin: 11/27/18 05:25 Dose: 40 mg Rosuvastatin Calcium (Crestor) 10 mg PO HS [facility] Last Admin: 11/26/18 21:32 Dose: 10 mg Saccharomyces Boulardii (Florastor) 250 mg PO TID [facility] Last Admin: 11/27/18 09:54 Dose: 250 mg Sevelamer Carbonate (Renvela) 0.8 gm PEG TIDCC [facility] Last Admin: 11/27/18 09:54 Dose: 0.8 gm - Labs Labs: 11/23/18 08:02 11/22/18 06:22 PT 14.3 SECONDS (9.7-12.2) H 11/05/18 05:52 INR 1.3 11/05/18 05:52 APTT 43 SECONDS (21-34) H 11/05/18 05:52 - Constitutional Appears: No Acute Distress - Respiratory Exam Respiratory Exam: Clear to Ausculation Bilateral - Cardiovascular Exam Cardiovascular Exam: REGULAR RHYTHM - GI/Abdominal Exam GI & Abdominal Exam: Soft - Skin Skin Exam: Dry Assessment and Plan (1) Diabetic nephropathy associated with type 2 diabetes mellitus Status: Acute (2) ESRD (end stage renal disease) Status: Acute (3) Respiratory failure Status: Acute - Assessment and Plan (Free Text) Plan: minimal uf continue supportive care
--- NOTE | 2018-11-27 15:36 | CP.PCM.PN ---
Subjective - Date & Time of Evaluation Date of Evaluation: 11/27/18 Time of Evaluation: 13:40 - Subjective Subjective: dictated Objective - Vital Signs/Intake and Output Vital Signs (last 24 hours): Temp Pulse Resp BP Pulse Ox 100 F H 85 14 128/75 100 11/27/18 12:15 11/27/18 12:15 11/27/18 09:15 11/27/18 12:15 11/27/18 09:15 Intake and Output: 11/27/18 11/27/18 06:59 18:59 Intake Total 460 560 Balance 460 560 - Medications Medications: Current Medications Acetaminophen (Tylenol 650mg/20.3ml Solution Ud) 650 mg PO Q6 PRN PRN Reason: pain+fever Last Admin: 11/27/18 02:00 Dose: 650 mg Acetylcysteine (Acetylcysteine 20%) 4 ml INH BID PRN PRN Reason: Cough and congestion Last Admin: 11/25/18 12:00 Dose: 4 ml Acyclovir (Zovirax 5% Oint) 1 gm EXT Q3H [facility] Last Admin: 11/27/18 12:32 Dose: 1 applic Albumin Human (Albumin Human 25% (12.5 Gm/50 Ml)) 12.5 gm IV TTS PRN PRN Reason: Hypotension Last Admin: 11/22/18 09:11 Dose: 12.5 gm Albuterol/Ipratropium (Duoneb 3 Mg/0.5 Mg (3 Ml) Ud) 3 ml INH RQ6 PRN PRN Reason: Cough and congestion Last Admin: 11/27/18 07:30 Dose: 3 ml Epoetin Dedrick (Procrit) 10,000 unit IV TTS [facility] Last Admin: 11/27/18 10:31 Dose: 10,000 unit Hydrocortisone (Cortef) 5 mg PO Q12 [facility] Last Admin: 11/27/18 09:54 Dose: 5 mg Ceftazidime 1 gm/ Sodium (Chloride) 100 mls @ 100 mls/hr IV DAILY@1600 [facility]; Protocol Last Admin: 11/26/18 16:05 Dose: 100 mls/hr Daptomycin 500 mg/ Sodium (Chloride) 100 mls @ 100 mls/hr IV Q48H [facility]; Protocol Stop: 11/28/18 20:46 Last Admin: 11/25/18 21:41 Dose: 100 mls/hr Insulin Aspart (Novolog) 0 unit SC Q6H [facility]; Protocol Last Admin: 11/27/18 12:32 Dose: 2 units Insulin Glargine (Lantus) 25 unit SC Q12 [facility] Last Admin: 11/27/18 09:55 Dose: 25 units Levothyroxine Sodium (Synthroid) 50 mcg PO 0600 [facility] Last Admin: 11/27/18 05:25 Dose: 50 mcg Methylprednisolone (Solu-Medrol) 40 mg IVP DAILY [facility] Last Admin: 11/27/18 09:54 Dose: 40 mg Metronidazole (Flagyl) 500 mg PEG Q8 [facility]; Protocol Last Admin: 11/27/18 13:33 Dose: 500 mg Pantoprazole Sodium (Protonix Susp) 40 mg PO 0600 [facility] Last Admin: 11/27/18 05:25 Dose: 40 mg Rosuvastatin Calcium (Crestor) 10 mg PO HS [facility] Last Admin: 11/26/18 21:32 Dose: 10 mg Saccharomyces Boulardii (Florastor) 250 mg PO TID [facility] Last Admin: 11/27/18 13:33 Dose: 250 mg Sevelamer Carbonate (Renvela) 0.8 gm PEG TIDCC [facility] Last Admin: 11/27/18 12:32 Dose: 0.8 gm - Labs Labs: 11/23/18 08:02 11/22/18 06:22 PT 14.3 SECONDS (9.7-12.2) H 11/05/18 05:52 INR 1.3 11/05/18 05:52 APTT 43 SECONDS (21-34) H 11/05/18 05:52
[2018-11-27 16:39] VITALS: RESP 20
[2018-11-27] MEDS: DAPTOmycin 500 MG in Sodium Chloride 0.9% 100 ML IV SCH (21:43)
[2018-11-28] MEDS: Acyclovir 5% Oint (15 gm) EXT SCH ×8 (00:38→21:23)
[2018-11-28] MEDS: Acetaminophen 650mg/20.3ml solution UD PO PRN ×2 (00:51→06:58)
[2018-11-28] MEDS: (Novolog) Insulin Aspart, Recombinant 100 u/ml 10 ml vial SC SCH ×4 (00:53→18:12)
[2018-11-28] MEDS: Levothyroxine 50 MCG TAB PO SCH (05:49)
[2018-11-28] MEDS: Pantoprazole 40 mg Susp UD PO SCH (05:49)
--- NOTE | 2018-11-28 07:07 | PN ---
DATE: 11/27/2018 INFECTIOUS DISEASE FOLLOWUP SUBJECTIVE: I went and saw her today. She still remains on the dialysis. She is unresponsive. Still has some movements of her hands, and lips remain with some dry crusting on the . PHYSICAL EXAMINATION: GENERAL: She remains febrile with T-max of 101.3 and now 100, pulse is 85, blood pressure 128/75, respirations on FiO2 of 35. Trach is present, intubated on the vent. LUNGS: Clear. HEART: S1, S2, regular. ABDOMEN: Soft, nontender. No guarding. No rigidity present. PEG tube is present. EXTREMITIES: Have foot protectors. She has a sacral wound which they are doing dressings to it. PLAN: We will continue the antibiotics at this time. Last week, the family was thinking of making some decisions this week; hopefully, they will. Otherwise, she is DNR. Sara Barrios MD
[2018-11-28] MEDS: Sevelamer Carb 0.8 gm/Packet PEG SCH ×3 (07:48→18:00)
[2018-11-28 07:54] LABS: MONO # 0.4 K/uL (0.0-0.8); RBC 2.83 Mil/uL (3.80-5.20)
[2018-11-28 07:56] LABS: ALBUMIN 2.7 g/dL (3.5-5.0)
[2018-11-28 08:03] LABS: BASO % 0.4 % (0.0-2.0); LYMPH # 1.1 K/uL (1.0-4.3); LYMPH % 12.5 % (20.0-40.0); MEAN CELL VOLUME 92.3 fL (81.0-99.0); MEAN CORPUSCULAR HEMOGLOBIN 28.5 pg (27.0-31.0); MEAN CORPUSCULAR HGB CONC 30.9 g/dL (33.0-37.0); MEAN PLATELET VOLUME 10.6 fL (7.2-11.7); MONO % 4.7 % (0.0-10.0); NEUT % 82.4 % (50.0-75.0); NRBC % 0.1 % (0.0-2.0); RED CELL DISTRIBUTION WIDTH 19.9 % (11.5-14.5); WHITE BLOOD COUNT 8.5 K/uL (4.8-10.8)
[2018-11-28] MEDS: Saccharomyces Boulardi 250 mg Cap PO SCH ×3 (09:52→18:00)
[2018-11-28] MEDS: MethylPREDNISolone 40 mg Vial IVP SCH (09:52)
[2018-11-28] MEDS: (Lantus) Insulin Glargine, Recombinant SC SCH ×2 (09:54→21:23)
--- NOTE | 2018-11-28 13:05 | CP.PCM.PN ---
Subjective - Date & Time of Evaluation Date of Evaluation: 11/28/18 Time of Evaluation: 13:03 - Subjective Subjective: febrile no family present on respirator unresponsive cannot obtain ROS due to above Objective - Vital Signs/Intake and Output Vital Signs (last 24 hours): Temp Pulse Resp BP Pulse Ox 99.7 F H 90 20 134/72 100 11/28/18 07:00 11/28/18 07:00 11/28/18 07:00 11/28/18 07:00 11/28/18 07:00 Intake and Output: 11/28/18 11/28/18 06:59 18:59 Intake Total 460 560 Balance 460 560 - Medications Medications: Current Medications Acetaminophen (Tylenol 650mg/20.3ml Solution Ud) 650 mg PO Q6 PRN PRN Reason: pain+fever Last Admin: 11/28/18 06:58 Dose: 650 mg Acetylcysteine (Acetylcysteine 20%) 4 ml INH BID PRN PRN Reason: Cough and congestion Last Admin: 11/25/18 12:00 Dose: 4 ml Acyclovir (Zovirax 5% Oint) 1 gm EXT Q3H [facility] Last Admin: 11/28/18 09:53 Dose: 1 applic Albuterol/Ipratropium (Duoneb 3 Mg/0.5 Mg (3 Ml) Ud) 3 ml INH RQ6 PRN PRN Reason: Cough and congestion Last Admin: 11/27/18 07:30 Dose: 3 ml Epoetin Dedrick (Procrit) 10,000 unit IV TTS [facility] Last Admin: 11/27/18 10:31 Dose: 10,000 unit Hydrocortisone (Cortef) 5 mg PO Q12 [facility] Last Admin: 11/28/18 09:52 Dose: 5 mg Ceftazidime 1 gm/ Sodium (Chloride) 100 mls @ 100 mls/hr IV DAILY@1600 [facility]; Protocol Last Admin: 11/27/18 16:30 Dose: 100 mls/hr Daptomycin 500 mg/ Sodium (Chloride) 100 mls @ 100 mls/hr IV Q48H [facility]; Protocol Stop: 11/28/18 20:46 Last Admin: 11/27/18 21:43 Dose: 100 mls/hr Insulin Aspart (Novolog) 0 unit SC Q6H [facility]; Protocol Last Admin: 11/28/18 11:45 Dose: 4 units Insulin Glargine (Lantus) 25 unit SC Q12 [facility] Last Admin: 11/28/18 09:54 Dose: 25 units Levothyroxine Sodium (Synthroid) 50 mcg PO 0600 [facility] Last Admin: 11/28/18 05:49 Dose: 50 mcg Methylprednisolone (Solu-Medrol) 40 mg IVP DAILY [facility] Last Admin: 11/28/18 09:52 Dose: 40 mg Metronidazole (Flagyl) 500 mg PEG Q8 [facility]; Protocol Last Admin: 11/28/18 05:49 Dose: 500 mg Pantoprazole Sodium (Protonix Susp) 40 mg PO 0600 [facility] Last Admin: 11/28/18 05:49 Dose: 40 mg Rosuvastatin Calcium (Crestor) 10 mg PO HS [facility] Last Admin: 11/27/18 21:30 Dose: 10 mg Saccharomyces Boulardii (Florastor) 250 mg PO TID [facility] Last Admin: 11/28/18 09:52 Dose: 250 mg Sevelamer Carbonate (Renvela) 0.8 gm PEG TIDCC [facility] Last Admin: 11/28/18 11:45 Dose: 0.8 gm - Labs Labs: 11/28/18 07:29 11/28/18 07:29 PT 14.3 SECONDS (9.7-12.2) H 11/05/18 05:52 INR 1.3 11/05/18 05:52 APTT 43 SECONDS (21-34) H 11/05/18 05:52 - Constitutional Appears: Confused, Chronically Ill - Head Exam Head Exam: ATRAUMATIC Additional comments: blisters around lips - Respiratory Exam Respiratory Exam: Decreased Breath Sounds. absent: Wheezes - Cardiovascular Exam Cardiovascular Exam: REGULAR RHYTHM. absent: Rubs - GI/Abdominal Exam GI & Abdominal Exam: Distended, Soft. absent: Tenderness - Extremities Exam Extremities Exam: absent: Pedal Edema - Neurological Exam Neurological Exam: absent: Alert, Awake Additional comments: involuntary movement Assessment and Plan - Assessment and Plan (Free Text) Assessment: HD planned for tomorrow continue support poor prognosis
--- NOTE | 2018-11-28 13:52 | CP.PCM.PN ---
Subjective - Date & Time of Evaluation Date of Evaluation: 11/28/18 Time of Evaluation: 13:35 - Subjective Subjective: dictated Objective - Vital Signs/Intake and Output Vital Signs (last 24 hours): Temp Pulse Resp BP Pulse Ox 99.7 F H 90 20 134/72 100 11/28/18 07:00 11/28/18 07:00 11/28/18 07:00 11/28/18 07:00 11/28/18 07:00 Intake and Output: 11/28/18 11/28/18 06:59 18:59 Intake Total 460 560 Balance 460 560 - Medications Medications: Current Medications Acetaminophen (Tylenol 650mg/20.3ml Solution Ud) 650 mg PO Q6 PRN PRN Reason: pain+fever Last Admin: 11/28/18 06:58 Dose: 650 mg Acetylcysteine (Acetylcysteine 20%) 4 ml INH BID PRN PRN Reason: Cough and congestion Last Admin: 11/25/18 12:00 Dose: 4 ml Acyclovir (Zovirax 5% Oint) 1 gm EXT Q3H [facility] Last Admin: 11/28/18 09:53 Dose: 1 applic Albuterol/Ipratropium (Duoneb 3 Mg/0.5 Mg (3 Ml) Ud) 3 ml INH RQ6 PRN PRN Reason: Cough and congestion Last Admin: 11/27/18 07:30 Dose: 3 ml Epoetin Dedrick (Procrit) 10,000 unit IV TTS [facility] Last Admin: 11/27/18 10:31 Dose: 10,000 unit Hydrocortisone (Cortef) 5 mg PO Q12 [facility] Last Admin: 11/28/18 09:52 Dose: 5 mg Ceftazidime 1 gm/ Sodium (Chloride) 100 mls @ 100 mls/hr IV DAILY@1600 [facility]; Protocol Last Admin: 11/27/18 16:30 Dose: 100 mls/hr Daptomycin 500 mg/ Sodium (Chloride) 100 mls @ 100 mls/hr IV Q48H [facility]; Protocol Stop: 11/28/18 20:46 Last Admin: 11/27/18 21:43 Dose: 100 mls/hr Insulin Aspart (Novolog) 0 unit SC Q6H [facility]; Protocol Last Admin: 11/28/18 11:45 Dose: 4 units Insulin Glargine (Lantus) 25 unit SC Q12 [facility] Last Admin: 11/28/18 09:54 Dose: 25 units Levothyroxine Sodium (Synthroid) 50 mcg PO 0600 [facility] Last Admin: 11/28/18 05:49 Dose: 50 mcg Methylprednisolone (Solu-Medrol) 40 mg IVP DAILY [facility] Last Admin: 11/28/18 09:52 Dose: 40 mg Metronidazole (Flagyl) 500 mg PEG Q8 [facility]; Protocol Last Admin: 11/28/18 05:49 Dose: 500 mg Pantoprazole Sodium (Protonix Susp) 40 mg PO 0600 [facility] Last Admin: 11/28/18 05:49 Dose: 40 mg Rosuvastatin Calcium (Crestor) 10 mg PO HS [facility] Last Admin: 11/27/18 21:30 Dose: 10 mg Saccharomyces Boulardii (Florastor) 250 mg PO TID [facility] Last Admin: 11/28/18 09:52 Dose: 250 mg Sevelamer Carbonate (Renvela) 0.8 gm PEG TIDCC [facility] Last Admin: 11/28/18 11:45 Dose: 0.8 gm - Labs Labs: 11/28/18 07:29 11/28/18 07:29 PT 14.3 SECONDS (9.7-12.2) H 11/05/18 05:52 INR 1.3 11/05/18 05:52 APTT 43 SECONDS (21-34) H 11/05/18 05:52
--- NOTE | 2018-11-28 17:26 | PN ---
DATE: 11/28/2018 INFECTIOUS DISEASE NOTE SUBJECTIVE: The patient was seen. She remains anoxic and her daughter is at the bedside. She tells me that they are calling for hospice evaluation and she has not responded all along and still have lesions on her lips, dried now. PHYSICAL EXAMINATION: NECK: Supple. LUNGS: Occasional rhonchi. PEG tube present. She is still on the trach vent. EXTREMITIES: Have no edema and sacral wound is healing. LABORATORY DATA: Her BUN is 66 and creatinine 3.1. White count is 8.5 with 82.4 neutrophils and no bands. ASSESSMENT AND PLAN: However, she continues to have fevers at midnight and etiology of which remains multiple. We will respect the feeling of the family and the patient's mental status has remained unchanged. Sara Barrios MD
--- NOTE | 2018-11-28 23:16 | CP.PCM.PN ---
Subjective - Date & Time of Evaluation Date of Evaluation: 11/28/18 Time of Evaluation: 23:15 - Subjective Subjective: I spoke to the patient's family yesterday and today. Family also spoke to the hospice team today. Possibly terminal extubation, and the following that the patient will be placed on hospice tomorrow after the family make full decision. We will continue the current aggressive treatment. Tomorrow patient supposed to be having hemodialysis, but will be on hold if the patient family agrees. We will continue the supportive treatment Objective - Vital Signs/Intake and Output Vital Signs (last 24 hours): Temp Pulse Resp BP Pulse Ox 102.3 F H 106 H 20 126/71 96 11/28/18 21:30 11/28/18 16:12 11/28/18 16:12 11/28/18 16:12 11/28/18 16:12 Intake and Output: 11/28/18 11/29/18 18:59 06:59 Intake Total 1020 460 Balance 1020 460 - Medications Medications: Current Medications Acetaminophen (Tylenol 650mg/20.3ml Solution Ud) 650 mg PO Q6 PRN PRN Reason: pain+fever Last Admin: 11/28/18 06:58 Dose: 650 mg Acetylcysteine (Acetylcysteine 20%) 4 ml INH BID PRN PRN Reason: Cough and congestion Last Admin: 11/25/18 12:00 Dose: 4 ml Acyclovir (Zovirax 5% Oint) 1 gm EXT Q3H [facility] Last Admin: 11/28/18 21:23 Dose: 1 applic Albuterol/Ipratropium (Duoneb 3 Mg/0.5 Mg (3 Ml) Ud) 3 ml INH RQ6 PRN PRN Reason: Cough and congestion Last Admin: 11/27/18 07:30 Dose: 3 ml Epoetin Dedrick (Procrit) 10,000 unit IV TTS [facility] Last Admin: 11/27/18 10:31 Dose: 10,000 unit Hydrocortisone (Cortef) 5 mg PO Q12 [facility] Last Admin: 11/28/18 21:24 Dose: 5 mg Ceftazidime 1 gm/ Sodium (Chloride) 100 mls @ 100 mls/hr IV DAILY@1600 [facility]; Protocol Last Admin: 11/28/18 16:07 Dose: 100 mls/hr Insulin Aspart (Novolog) 0 unit SC Q6H [facility]; Protocol Last Admin: 11/28/18 18:12 Dose: 6 units Insulin Glargine (Lantus) 25 unit SC Q12 [facility] Last Admin: 11/28/18 21:23 Dose: 25 units Levothyroxine Sodium (Synthroid) 50 mcg PO 0600 [facility] Last Admin: 11/28/18 05:49 Dose: 50 mcg Methylprednisolone (Solu-Medrol) 40 mg IVP DAILY [facility] Last Admin: 11/28/18 09:52 Dose: 40 mg Metronidazole (Flagyl) 500 mg PEG Q8 [facility]; Protocol Last Admin: 11/28/18 21:24 Dose: 500 mg Pantoprazole Sodium (Protonix Susp) 40 mg PO 0600 [facility] Last Admin: 11/28/18 05:49 Dose: 40 mg Rosuvastatin Calcium (Crestor) 10 mg PO HS [facility] Last Admin: 11/28/18 21:24 Dose: 10 mg Saccharomyces Boulardii (Florastor) 250 mg PO TID [facility] Last Admin: 11/28/18 18:00 Dose: 250 mg Sevelamer Carbonate (Renvela) 0.8 gm PEG TIDCC [facility] Last Admin: 11/28/18 18:00 Dose: 0.8 gm - Labs Labs: 11/28/18 07:29 11/28/18 07:29 PT 14.3 SECONDS (9.7-12.2) H 11/05/18 05:52 INR 1.3 11/05/18 05:52 APTT 43 SECONDS (21-34) H 11/05/18 05:52 Assessment and Plan (1) Acute on chronic renal failure Status: Acute (2) Diabetic nephropathy associated with type 2 diabetes mellitus Status: Acute (3) Uremia, acute Status: Acute
[2018-11-29] MEDS: (Novolog) Insulin Aspart, Recombinant 100 u/ml 10 ml vial SC SCH ×2 (00:24→06:35)
[2018-11-29] MEDS: Acyclovir 5% Oint (15 gm) EXT SCH ×4 (00:40→11:32)
[2018-11-29] MEDS: Levothyroxine 50 MCG TAB PO SCH (05:27)
[2018-11-29] MEDS: Pantoprazole 40 mg Susp UD PO SCH (05:27)
[2018-11-29] MEDS: Acetaminophen 650mg/20.3ml solution UD PO PRN ×2 (05:28→11:18)
[2018-11-29 07:50] VITALS: BP 131/75; PULSE 108; TEMP 102.9; O2SAT 99
[2018-11-29] MEDS: Acetylcysteine 20% Inhal Soln (4ml) INH PRN (08:25)
[2018-11-29] MEDS: Albuterol-Ipratrop 3 mg / 0.5 (3 ml) UD INH PRN (08:25)
[2018-11-29] MEDS: Sevelamer Carb 0.8 gm/Packet PEG SCH (08:38)
--- NOTE | 2018-11-29 09:39 | CP.PCM.PN ---
Subjective - Date & Time of Evaluation Date of Evaluation: 11/29/18 Time of Evaluation: 09:36 - Subjective Subjective: events noted off dialysis possible terminal extubation soon spoke with daughter Objective - Vital Signs/Intake and Output Vital Signs (last 24 hours): Temp Pulse Resp BP Pulse Ox 102.9 F H 108 H 20 131/75 99 11/29/18 07:45 11/29/18 07:45 11/29/18 07:45 11/29/18 07:45 11/29/18 07:45 Intake and Output: 11/29/18 11/29/18 06:59 18:59 Intake Total 460 560 Balance 460 560 - Medications Medications: Current Medications Acetaminophen (Tylenol 650mg/20.3ml Solution Ud) 650 mg PO Q6 PRN PRN Reason: pain+fever Last Admin: 11/29/18 05:28 Dose: 650 mg Acetylcysteine (Acetylcysteine 20%) 4 ml INH BID PRN PRN Reason: Cough and congestion Last Admin: 11/29/18 08:25 Dose: 4 ml Acyclovir (Zovirax 5% Oint) 1 gm EXT Q3H [facility] Last Admin: 11/29/18 06:46 Dose: 1 applic Albuterol/Ipratropium (Duoneb 3 Mg/0.5 Mg (3 Ml) Ud) 3 ml INH RQ6 PRN PRN Reason: Cough and congestion Last Admin: 11/29/18 08:25 Dose: 3 ml Epoetin Dedrick (Procrit) 10,000 unit IV TTS [facility] Last Admin: 11/27/18 10:31 Dose: 10,000 unit Hydrocortisone (Cortef) 5 mg PO Q12 [facility] Last Admin: 11/28/18 21:24 Dose: 5 mg Ceftazidime 1 gm/ Sodium (Chloride) 100 mls @ 100 mls/hr IV DAILY@1600 [facility]; Protocol Last Admin: 11/28/18 16:07 Dose: 100 mls/hr Morphine Sulfate 100 mg/ (Sodium Chloride) 100 mls @ 1 mls/hr SC .Q24H PRN; Protocol PRN Reason: PAIN 8-10 Insulin Aspart (Novolog) 0 unit SC Q6H [facility]; Protocol Last Admin: 11/29/18 06:35 Dose: 6 units Insulin Glargine (Lantus) 25 unit SC Q12 [facility] Last Admin: 11/28/18 21:23 Dose: 25 units Levothyroxine Sodium (Synthroid) 50 mcg PO 0600 [facility] Last Admin: 11/29/18 05:27 Dose: 50 mcg Methylprednisolone (Solu-Medrol) 40 mg IVP DAILY [facility] Last Admin: 11/28/18 09:52 Dose: 40 mg Metronidazole (Flagyl) 500 mg PEG Q8 [facility]; Protocol Last Admin: 11/29/18 05:27 Dose: 500 mg Pantoprazole Sodium (Protonix Susp) 40 mg PO 0600 [facility] Last Admin: 11/29/18 05:27 Dose: 40 mg Rosuvastatin Calcium (Crestor) 10 mg PO HS [facility] Last Admin: 11/28/18 21:24 Dose: 10 mg Saccharomyces Boulardii (Florastor) 250 mg PO TID [facility] Last Admin: 11/28/18 18:00 Dose: 250 mg Sevelamer Carbonate (Renvela) 0.8 gm PEG TIDCC [facility] Last Admin: 11/29/18 08:38 Dose: 0.8 gm - Labs Labs: 11/28/18 07:29 11/28/18 07:29 PT 14.3 SECONDS (9.7-12.2) H 11/05/18 05:52 INR 1.3 11/05/18 05:52 APTT 43 SECONDS (21-34) H 11/05/18 05:52 - Constitutional Appears: Chronically Ill - Respiratory Exam Respiratory Exam: Rhonchi, Respiratory Distress - Cardiovascular Exam Cardiovascular Exam: Tachycardia, +S1 - GI/Abdominal Exam GI & Abdominal Exam: Soft. absent: Tenderness - Extremities Exam Extremities Exam: Normal Inspection. absent: Tenderness - Neurological Exam Neurological Exam: Altered - Skin Skin Exam: Erythema, Warm Assessment and Plan (1) ESRD (end stage renal disease) Status: Acute (2) Diabetic nephropathy associated with type 2 diabetes mellitus Status: Acute (3) CAD (coronary artery disease) Status: Acute (4) HTN (hypertension) Status: Acute (5) Metabolic encephalopathy Status: Acute - Assessment and Plan (Free Text) Plan: agree with plans to sign off
[2018-11-29] MEDS ORDERED: Morphine 100 MG in Sodium Chloride 0.9% 90 ML IV PRN (10:00)
[2018-11-29] MEDS ORDERED: Morphine 100 MG in Sodium Chloride 0.9% 90 ML SC PRN (10:00)
--- NOTE | 2018-11-29 11:29 | CP.PCM.DIS ---
Provider - Provider Date of Admission: 09/29/18 02:39 Attending physician: Renato Orlando MD Consults: 10/06/18 09:59 Cardiology Consult Routine Comment: Consulting Provider: Blu Yost Consulting Physician: Blu Yost Reason for Consult: anoxia Neurology Consult Routine Comment: Consulting Provider: Jimmy Wagoner Consulting Physician: Jimmy Wagoner Reason for Consult: cardiac arrest 10/16/18 07:27 Infectious Disease Consult Routine Comment: Consulting Provider: Sara Barrios Consulting Physician: Sara Barrios Reason for Consult: MRSA 10/16/18 22:44 General Surgery Consult Routine Comment: Consulting Provider: Galindo Blank Jr. Consulting Physician: Galindo Blank Jr. Reason for Consult: tracheostomy 10/18/18 09:12 Gastroenterology Consult Routine Comment: Consulting Provider: Saw Millard Consulting Physician: Saw Millard Reason for Consult: PEG tube placement 10/18/18 09:57 Physician Consult Routine Comment: Consulting Provider: Blu Yost Consulting Physician: Blu Yost Reason for Consult: deteriotating neurological status 10/25/18 11:07 Wound Care [Nursing Referral for Wound Care] Routine Comment: Physician Instructions: Reason For Exam: Sacral wounds 11/02/18 08:51 Anesthesiology Consult Routine Comment: Consulting Provider: Stephanie Park Consulting Physician: Stephanie Park Reason for Consult: spinal tap 11/03/18 21:43 Wound Care [Nursing Referral for Wound Care] Routine Comment: RECONSULT WOUND CARE NURSE FOR FOLLOW Physician Instructions: Reason For Exam: SACRAL WOUND CHANGES /DISCOLORATION 11/07/18 17:08 Wound Care [Nursing Referral for Wound Care] Routine Comment: Physician Instructions: Reason For Exam: posterior neck wound 11/08/18 11:29 Palliative Care Consult Routine Comment: Consulting Provider: Bettina Avina Physician Instructions: Reason For Exam: goals of care 09/29/18 07:12 Nephrology Consult Routine Comment: Consulting Provider: Jean Segundo Consulting Physician: Jean Segundo Reason for Consult: cri 09/29/18 22:58 Physician Consult Routine Comment: Consulting Provider: Galindo Blank Jr. Consulting Physician: Abhay,Galindo J Jr. Reason for Consult: HD access-Permacath Time Spent in preparation of Discharge (in minutes): 45 Diagnosis - Discharge Diagnosis (1) Acute on chronic renal failure Status: Acute (2) Diabetic nephropathy associated with type 2 diabetes mellitus Status: Acute (3) Uremia, acute Status: Acute Hospital Course - Lab Results Lab Results: Micro Results 11/05/18 10:54 Other: Please Indicate Mycobacterial Culture - Preliminary 11/17/18 16:35 Blood-During Dialysis Blood Culture - Final NO GROWTH AFTER 5 DAYS 11/17/18 16:35 Blood-During Dialysis Gram Stain - Final TEST NOT PERFORMED 11/17/18 15:50 Blood-During Dialysis Blood Culture - Final NO GROWTH AFTER 5 DAYS 11/17/18 15:50 Blood-During Dialysis Gram Stain - Final TEST NOT PERFORMED 11/16/18 14:05 Blood Blood Culture - Final NO GROWTH AFTER 5 DAYS 11/16/18 14:05 Blood Gram Stain - Final TEST NOT PERFORMED 11/18/18 14:42 Sputum Gram Stain - Final 11/18/18 14:42 Sputum Sputum Culture - Final Stenotrophomonas Maltophilia 11/12/18 10:47 Blood Blood Culture - Final NO GROWTH AFTER 5 DAYS 11/12/18 10:47 Blood Gram Stain - Final TEST NOT PERFORMED 11/15/18 19:51 Naris MRSA Culture - Final MRSA NOT DETECTED 11/12/18 07:19 Stool Stool Culture - Final NO SALMONELLA, SHIGELLA OR CAMPYLOBACTER ISOLATED. 11/12/18 10:36 Urine,Catheterized Urine Culture - Final No Growth (<1,000 CFU/ML) 11/05/18 10:54 Cerebral Spinal Fluid Gram Stain - Final 11/05/18 10:54 Cerebral Spinal Fluid CSF Culture - Final No growth. 11/03/18 06:21 Tracheostomy Site Gram Stain - Final 11/03/18 06:21 Tracheostomy Site Wound Culture - Final Romina Albicans 10/30/18 08:29 Blood Blood Culture - Final NO GROWTH AFTER 5 DAYS 10/30/18 08:29 Blood Gram Stain - Final TEST NOT PERFORMED 10/30/18 08:29 Blood Blood Culture - Final NO GROWTH AFTER 5 DAYS 10/30/18 08:29 Blood Gram Stain - Final TEST NOT PERFORMED 10/30/18 08:29 Sputum Gram Stain - Final 10/30/18 08:29 Sputum Sputum Culture - Final Yeast Species 10/28/18 17:16 Arm Right Catheter Tip Culture - Final No Growth 10/24/18 12:40 Blood-During Dialysis Blood Culture - Final NO GROWTH AFTER 5 DAYS 10/24/18 12:40 Blood-During Dialysis Gram Stain - Final TEST NOT PERFORMED 10/24/18 12:00 Blood-During Dialysis Blood Culture - Final NO GROWTH AFTER 5 DAYS 10/24/18 12:00 Blood-During Dialysis Gram Stain - Final TEST NOT PERFORMED 10/19/18 20:57 Blood-During Dialysis Blood Culture - Final NO GROWTH AFTER 5 DAYS 10/19/18 20:57 Blood-During Dialysis Gram Stain - Final TEST NOT PERFORMED 10/19/18 18:54 Blood-During Dialysis Blood Culture - Final NO GROWTH AFTER 5 DAYS 10/19/18 18:54 Blood-During Dialysis Gram Stain - Final TEST NOT PERFORMED 10/21/18 15:53 Stool Stool Culture - Final NO SALMONELLA, SHIGELLA OR CAMPYLOBACTER ISOLATED. 10/19/18 18:54 Trachasp Gram Stain - Final 10/19/18 18:54 Trachasp Sputum Culture - Final No growth. 10/19/18 18:54 Catheter Site Gram Stain - Final 10/19/18 18:54 Catheter Site Wound Culture - Final Coagulase Neg Staphylococcus 10/16/18 11:45 Blood-Venous Blood Culture - Final NO GROWTH AFTER 5 DAYS 10/16/18 11:45 Blood-Venous Gram Stain - Final TEST NOT PERFORMED 10/16/18 12:10 Blood-Venous Blood Culture - Final NO GROWTH AFTER 5 DAYS 10/16/18 12:10 Blood-Venous Gram Stain - Final TEST NOT PERFORMED 10/13/18 13:50 Trachasp Gram Stain - Final 10/13/18 13:50 Trachasp Sputum Culture - Final Citrobacter Diversus Methicillin Resistant S Aureus 10/07/18 20:00 Blood-Venous Blood Culture - Final NO GROWTH AFTER 5 DAYS 10/07/18 20:00 Blood-Venous Gram Stain - Final TEST NOT PERFORMED 10/07/18 20:20 Blood-Venous Blood Culture - Final NO GROWTH AFTER 5 DAYS 10/07/18 20:20 Blood-Venous Gram Stain - Final TEST NOT PERFORMED 10/07/18 20:00 Trachasp Gram Stain - Final 10/07/18 20:00 Trachasp Sputum Culture - Final Methicillin Resistant S Aureus 10/07/18 21:17 Urine,Rodriguez Urine Culture - Final No Growth (<1,000 CFU/ML) 09/29/18 Unknown Naris MRSA Culture (Admit) - Final MRSA DETECTED Most Recent Lab Values WBC 8.5 K/uL (4.8-10.8) 11/28/18 07: RBC 2.83 Mil/uL (3.80-5.20) L 11/28/18 07: Hgb 8.0 g/dL (11.0-16.0) L 11/28/18 07: Hct 26.1 % (34.0-47.0) L 11/28/18 07: MCV 92.3 fL (81.0-99.0) 11/28/18 07: MCH 28.5 pg (27.0-31.0) 11/28/18 07: MCHC 30.9 g/dL (33.0-37.0) L 11/28/18 07: RDW 19.9 % (11.5-14.5) H 11/28/18 07: Plt Count 92 K/uL (130-400) L D 11/28/18 07: MPV 10.6 fL (7.2-11.7) 11/28/18 07: Neut % (Auto) 82.4 % (50.0-75.0) H 11/28/18: Lymph % (Auto) 12.5 % (20.0-40.0) L 11/28/18 07: Brule % (Auto) 4.7 % (0.0-10.0) 11/28/18: Eos % (Auto) 0.0 % (0.0-4.0) 11/28/18: Baso % (Auto) 0.4 % (0.0-2.0) 11/28/18: Neut # (Auto) 7.0 K/uL (1.8-7.0) 11/28/18: Lymph # (Auto) 1.1 K/uL (1.0-4.3) 11/28/18 07: Brule # (Auto) 0.4 K/uL (0.0-0.8) 11/28/18 07: Eos # (Auto) 0.0 K/uL (0.0-0.7) 11/28/18 07:29 Baso # (Auto) 0.0 K/uL (0.0-0.2) 11/28/18 07:29 Neutrophils % (Manual) 96 % (50-75) H 11/22/18 06:22 Band Neutrophils % 2 % (0-2) 11/17/18 07:24 Lymphocytes % (Manual) 2 % (20-40) L 11/22/18 06:22 Monocytes % (Manual) 2 % (0-10) 11/22/18 06:22 Eosinophils % (Manual) 2 % (0-4) 11/15/18 06:15 Basophils % (Manual) 1 % (0-2) 10/12/18 06:21 Metamyelocytes % 1 % (0-0) H 10/12/18 06:21 Myelocytes % 2 % (0-0) H 11/09/18 06:11 Nucleated RBC % 1 % (0-0) H 11/09/18 06:11 Differential Comment 11/28/18 07:29 Toxic Granulation Present 10/07/18 06:10 Platelet Estimate Normal (NORMAL) 11/22/18 06:22 Large Platelets Present 11/09/18 06:11 Giant Platelets Present 11/22/18 06:22 Polychromasia Slight 11/15/18 06:15 Hypochromasia (manual) Slight 11/22/18 06:22 Poikilocytosis (manual Slight 11/22/18 06:22 Basophilic Stippling Slight 10/06/18 05:49 Anisocytosis (manual) Slight 11/22/18 06:22 Microcytosis (manual) Slight 11/09/18 06:11 Macrocytosis (manual) Slight 11/09/18 06:11 Spherocytes Slight 11/09/18 06:11 Target Cells Slight 11/22/18 06:22 Tear Drop Cells Slight 11/22/18 06:22 Ovalocytes Slight 11/22/18 06:22 Stomatocytes Slight 11/16/18 07:30 Rubens Cells Slight 11/07/18 06:08 Schistocytes Slight 10/07/18 06:10 ESR 99 mm/hr (0-20) H 11/06/18 10:16 PT 14.3 SECONDS (9.7-12.2) H 11/05/18 05:52 INR 1.3 11/05/18 05:52 APTT 43 SECONDS (21-34) H 11/05/18 05:52 Puncture Site Rba 10/30/18 07:34 pCO2 30 mm/Hg (35-45) L 10/30/18 07:34 pO2 112 mm/Hg (80-100) H 10/30/18 07:34 HCO3 21.9 mmol/L (21-28) 10/30/18 07:34 ABG pH 7.42 (7.35-7.45) 10/30/18 07:34 ABG Total CO2 20.4 mmol/L (22-28) L 10/30/18 07:34 ABG O2 Saturation 99.3 % (95-98) H 10/30/18 07:34 ABG Base Excess -3.9 mmol/L (-2.0-3.0) L 10/30/18 07:34 ABG Hemoglobin 9.1 g/dL (11.7-17.4) L 10/18/18 05:36 ABG Carboxyhemoglobin 2.1 % (0.5-1.5) H 10/18/18 05:36 POC ABG HHb (Measured) 1.5 % (0.0-5.0) 10/18/18 05:36 ABG Methemoglobin 1.2 % (0.0-3.0) 10/18/18 05:36 Jimenez Test Na 10/30/18 07:34 ABG Potassium 3.2 mmol/L (3.6-5.2) L 10/30/18 07:34 A-a O2 Difference 100.0 mm/Hg 10/30/18 07:34 Respiratory Index 0.9 10/30/18 07:34 Hgb O2 Saturation 95.2 % (95.0-98.0) 10/18/18 05:36 Sodium 141.0 mmol/l (132-148) 10/30/18 07:34 Chloride 108.0 mmol/L (98-107) H 10/30/18 07:34 Glucose 247 mg/dl (65-105) H 10/30/18 07:34 Lactate 1.6 mmol/L (0.7-2.1) 10/30/18 07:34 Liter Flow 3.0 10/01/18 08:25 Vent Mode Prvc 10/30/18 07:34 Mechanical Rate 14 10/30/18 07:34 FiO2 35.0 % 10/30/18 07:34 Tidal Volume 450 10/30/18 07:34 PEEP 5 10/30/18 07:34 Pressure Support 12 10/16/18 05:16 CPAP 5 10/16/18 05:16 Crit Value Called To Roxane agricultural consultant 10/13/18 05:18 Crit Value Called By Asiya sarabia rt 10/13/18 05:18 Crit Value Read Back Y 10/13/18 05:18 Blood Gas Notified Time 620 10/13/18 05:18 Sodium 135 mmol/L (132-148) 11/28/18 07:29 Potassium 3.3 mmol/L (3.6-5.2) L 11/28/18 07:29 Chloride 97 mmol/L (98-107) L 11/28/18 07:29 Carbon Dioxide 26 mmol/L (22-30) 11/28/18 07:29 Anion Gap 15 (10-20) 11/28/18 07:29 BUN 66 mg/dL (7-17) H 11/28/18 07:29 Creatinine 3.1 mg/dL (0.7-1.2) H 11/28/18 07:29 Est GFR ( Amer) 18 11/28/18 07:29 Est GFR (Non-Af Amer) 15 11/28/18 07:29 POC Glucose (mg/dL) 251 mg/dL (65-110) H 11/29/18 06:22 Random Glucose 163 mg/dL (65-105) H D 11/28/18 07:29 Lactic Acid 1.9 mmol/L (0.7-2.1) 11/01/18 08:07 Calcium 8.0 mg/dl (8.6-10.4) L 11/28/18 07:29 Ionized Calcium 4.3 mg/dL (4.80-5.60) L 11/02/18 07:26 Phosphorus 8.3 mg/dL (2.5-4.5) H 11/22/18 06:22 Magnesium 2.0 mg/dL (1.6-2.3) 11/22/18 06:22 % Saturation 46 (20-55) 11/07/18 14:24 Ferritin 3990.0 ng/mL 11/07/18 14:24 Total Bilirubin 0.6 mg/dL (0.2-1.3) 11/28/18 07:29 AST 51 U/L (14-36) H D 11/28/18 07:29 ALT 34 U/L (9-52) 11/28/18 07:29 Alkaline Phosphatase 116 U/L (38-126) 11/28/18 07:29 Total Creatine Kinase 412 U/L (30-135) H 10/06/18 21:04 CK-MB (Mass) 8.78 ng/mL (0.0-3.38) H 10/06/18 21:04 Troponin I 0.0250 ng/mL (0.00-0.120) 10/06/18 21:04 C-Reactive Protein 155.70 mg/L (0.0-9.9) H 11/06/18 10:16 NT-Pro-B Natriuret Pep 7050 pg/mL (0-900) H 09/29/18 01:05 Total Protein 5.3 g/dL (6.3-8.3) L 11/28/18 07:29 Albumin 2.7 g/dL (3.5-5.0) L 11/28/18 07:29 Globulin 2.6 gm/dL (2.2-3.9) 11/28/18 07:29 Albumin/Globulin Ratio 1.0 (1.0-2.1) 11/28/18 07:29 Lipase 103 U/L (23-300) 09/29/18 01:05 Procalcitonin 4.24 NG/ML (0.19-0.49) H 11/01/18 08:07 Prolactin 12.0 ng/mL (3.0-18.9) 11/02/18 07:26 PTH Intact Whole Molec 267 pg/mL (14-64) H 10/19/18 06:21 Cortisol AM Sample 18.9 ug/dL (4.46-22.7) 11/01/18 06:11 Arterial Blood Potassium 3.2 mmol/L (3.6-5.2) L 10/30/18 07:34 Urine Color Tracy (YELLOW) 10/08/18 05:52 Urine Clarity Hazy (Clear) 10/08/18 05:52 Urine pH 5.0 (5.0-8.0) 10/08/18 05:52 Ur Specific [place] 1.028 (1.003-1.030) 10/08/18 05:52 Urine Protein 3+ mg/dL (NEGATIVE) H 10/08/18 05:52 Urine Glucose (UA) 2+ mg/dL (Normal) H 10/08/18 05:52 Urine Ketones Negative mg/dL (NEGATIVE) 10/08/18 05:52 Urine Blood Negative (NEGATIVE) 10/08/18 05:52 Urine Nitrate Negative (NEGATIVE) 10/08/18 05:52 Urine Bilirubin Negative (NEGATIVE) 10/08/18 05:52 Urine Urobilinogen Normal mg/dL (0.2-1.0) 10/08/18 05:52 Ur Leukocyte Esterase 2+ Gabe/uL (Negative) H 10/08/18 05:52 Urine WBC (Auto) 641 /hpf (0-5) H 10/08/18 05:52 Urine RBC (Auto) 16 /hpf (0-3) H 10/08/18 05:52 Urine WBC Clumps (Auto) Many /hpf (NONE) H 10/08/18 05:52 Ur Squamous Epith Cells 6 /hpf (0-5) H 10/08/18 05:52 Urine Bacteria Many (<OCC) H 10/08/18 05:52 Fluid Type Spinal fluid 11/05/18 10:54 CSF Volume TEST NOT PERFORMED 11/05/18 10:54 CSF Appearance Clear/colorless (CLEAR) 11/05/18 10:54 CSF WBC 1.0 /mm3 (0.0-5.0) 11/05/18 10:54 CSF RBC 0.0 /mm3 (0.0-0.0) 11/05/18 10:54 CSF Total Cell Counted TEST NOT PERFORMED 11/05/18 10:54 CSF Lymphocytes % (0-0) 11/05/18 10:54 CSF Monos/Macrophages TEST NOT PERFORMED 11/05/18 10:54 CSF Comment 11/05/18 10:54 CSF Glucose 129 mg/dL (40-70) H* 11/05/18 10:54 CSF LDH 37 U/L (<=25) H 11/05/18 10:54 CSF Total Protein 56.0 mg/dL (12-60) 11/05/18 10:54 CSF Oligoclonal Bands see note 11/05/18 10:54 CSF VDRL Titer TEST NOT PERFORMED 11/05/18 10:54 CSF VDRL Nonreactive (Nonreactive) 11/05/18 10:54 CSF Lyme IgG Antibody No bands detected 11/05/18 10:54 CSF Herpes I IgG Index 0.43 11/05/18 10:54 CSF Herpes I IgM Ab Negative 11/05/18 10:54 CSF Herpes II IgG Index 0.02 11/05/18 10:54 CSF Herpes II IgM Ab Negative 11/05/18 10:54 CSF HIV-1 RNA PCR Intp <1.30 not detected 11/05/18 10:54 CSF HIV-1 DNA (PCR) <20 not detected Copies/mL 11/05/18 10:54 CSF West Nile IgG Ab <1.30 index (<1.30) 11/05/18 10:54 CSF West Nile IgM Ab <0.90 index (<0.90) 11/05/18 10:54 Stool Leukocytes, Qual Negative (NEGATIVE) 11/13/18 00:25 Vancomycin Trough 27.8 ug/mL (5.0-10.0) H 11/03/18 08:34 Random Vancomycin 16.1 ug/mL 11/08/18 05:47 Urine Opiates Screen Negative (NEGATIVE) 10/06/18 01:33 Urine Methadone Screen Negative (NEGATIVE) 10/06/18 01:33 Ur Barbiturates Screen Negative (NEGATIVE) 10/06/18 01:33 Ur Phencyclidine Scrn Negative (NEGATIVE) 10/06/18 01:33 Ur Amphetamines Screen Negative (NEGATIVE) 10/06/18 01:33 U Benzodiazepines Scrn Negative (NEGATIVE) 10/06/18 01:33 U Oth Cocaine Metabols Negative (NEGATIVE) 10/06/18 01:33 U Cannabinoids Screen Negative (NEGATIVE) 10/06/18 01:33 JERRY Screen Negative (Negative) 11/06/18 10:16 Lyme Bands Present TEST NOT PERFORMED 11/05/18 10:54 Lyme IgM Ab (IFA) No bands detected 11/05/18 10:54 C. difficile Ag & Toxin Negative (NEGATIVE) 11/12/18 07:19 Hep Bs Antigen Negative (NEGATIVE) 10/29/18 09:16 Hep B Core IgM Ab Negative (NEGATIVE) 12/30/18 16:35 Hepatitis C Antibody Negative (NEGATIVE) 09/30/18 16:35 HSV IgM Ab Screen Negative 11/05/18 10:54 HSV I IgG Index 0.43 11/05/18 10:54 HSV I IgM Ab Negative 11/05/18 10:54 HSV II IgG Index 0.02 11/05/18 10:54 HSV II IgM Negative 11/05/18 10:54 Blood Type O POSITIVE 11/02/18 18:11 Antibody Screen Negative 11/02/18 18:11 - Hospital Course Hospital Course: Chief complaints: Epigastric pain, associated with chest tightness HPI: Patient was brought in by family with increasing epigastric pain, associated chest tightness. She was having significant pain over the epigastric area, and almost to for 4 days the pain was slowly getting worse, climbing stairs, associated with increasing pain, associated with palpitation and shortness of breath. She did not have any vomiting diarrhea, no leg swelling noted currently. Patient in the past has significant to severe renal insufficiency, and the patient was advised for hemodialysis by the naval science teacher but the patient is currently reluctant. This is a 72-year-old female with a history of heart failure, hypertension, CAD, status post stent, renal insufficiency, diabetes. 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 Shortness of breath present. Leg swelling present. 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 Elevated BUN/creatinine level noted Chest x-ray nonspecific Elevated potassium, worsening renal parameters, also elevated liver enzymes noted Elevated proBNP level noted Assessment and recommendation: Patient is a 72-year-old female with multiple medical history hypertension diabetes hypercholesterolemia CAD status post stent. Status post pituitary tumor removal, currently on supplementation of the corticotrophin. No patient admitted with possible acute worsening renal insufficiency associated with some uremic symptoms likely. In my opinion patient may need hemodialysis will discuss with the patient. Diuretics to be continued Renal evaluation DVT GI prophylaxis. And will follow-up the patient. Course in the hospital: Patient was initially admitted to the medical floor, with a symptoms of uremia. Patient initially was reluctant to have the dialysis. But after multiple discussion with the patient as well as the patient's family and also naval science teacher, and finally patient agreed to have the hemodialysis. But patient was transferred to ICU in the beginning because of the worsening he art failure, fluid overload, and she underwent hemodialysis in the ICU. Patient was doing okay following the foster dialysis, she was also feeling well, but she was not happy about having the dialysis. Following that the patient was undergoing permacath placement, and on 10/05/2018, patient sustained a cardiac arrest in the operating room, and following that patient become unresponsive. Patient was initially intubated, therapeutic hypothermia started, was monitored in the ICU. After the termination of the therapeutic hypothermia patient was somewhat awake and responding, which was confirmed by the neurologist, and anesthesiologist. And hemodialysis was continued. But after a week later patient condition was not improving, she was continues to have a frequent fever episodes. Fever workup was done multiple times, including blood cultures, sputum cultures, line cultures, as well as lumbar punctures. There was no evidence of any infectious process noted. But the patient was placed on broad-spectrum antibiotic, antiviral, antifungal treatment. Multiple EEGs was done, video EEG was done for evaluation of the altered mental status. Patient continues to have hemodialysis. But frequently. Patient was having multiple episodes of hypertension, and MRI of the brain showing evidence of likely hypoperfusion in the mehnaz area. There was concern about the pontine dysfunction. And also seizure activities. But in spite of multiple attempts patient did not improve. After multiple discussion with the patient's family, it was decided that the comfort care, palliative care suggested. Family was agreeing to have hospice care. Patient now will be discharged to hospice. Final diagnosis cardiac arrest. Anoxic encephalopathy. End-stage renal disease on dialysis Hypertension Hypercholesteremia CAD. Status post a stent. Hemodialysis, nutrition, antibiotic will be stopped. Ventilator will be also stopped. Patient will receive morphine drip. Oxygen. Further management as per hospice Discharge Exam - Head Exam Head Exam: ATRAUMATIC Discharge Plan - Follow Up Plan Condition: SERIOUS Disposition: HOSPICE - MEDICAL FACILITY
== END 2018-11-29 12:40 | disposition hospice, inpatient (51) | DRG 4 ==
LOC: C.ER 00:13 → C.9E 02:39 → C.5S 03:19 → C.9I 22:44 → C.3T 11-15 14:17
PROVIDERS: ADMIT Internal Medicine; ATTEND Internal Medicine
PROC: 5A09557 Assistance with Respiratory Ventilation, Greater than 96 Consecutive Hours, Continuous Positive Airway Pressure (ICD-10-PCS; 2018-09-29)
PROC: 5A1D70Z Performance of Urinary Filtration, Intermittent, Less than 6 Hours Per Day (ICD-10-PCS; 2018-09-30)
PROC: 05PY33Z Removal of Infusion Device from Upper Vein, Percutaneous Approach (ICD-10-PCS; 2018-10-11)
PROC: 06H033Z Insertion of Infusion Device into Inferior Vena Cava, Percutaneous Approach (ICD-10-PCS; 2018-10-11)
PROC: 05HY33Z Insertion of Infusion Device into Upper Vein, Percutaneous Approach (ICD-10-PCS; 2018-10-12)
PROC: 5A1955Z Respiratory Ventilation, Greater than 96 Consecutive Hours (ICD-10-PCS; 2018-10-18)
PROC: 0B113F4 Bypass Trachea to Cutaneous with Tracheostomy Device, Percutaneous Approach (ICD-10-PCS; principal; 2018-10-18 15:30)
PROC: 0DH63UZ Insertion of Feeding Device into Stomach, Percutaneous Approach (ICD-10-PCS; 2018-10-23)
PROC: 009U3ZX Drainage of Spinal Canal, Percutaneous Approach, Diagnostic (ICD-10-PCS; 2018-11-05)
PROC: 05H533Z Insertion of Infusion Device into Right Subclavian Vein, Percutaneous Approach (ICD-10-PCS; 2018-11-13)
DX: N17.9 Acute kidney failure, unspecified (principal); J15.212 Pneumonia due to Methicillin resistant Staphylococcus aureus; J96.01 Acute respiratory failure with hypoxia; I13.2 Hypertensive heart and chronic kidney disease with heart failure and with stage 5 chronic kidney disease, or end stage renal disease; E87.2 Acidosis; E66.2 Morbid (severe) obesity with alveolar hypoventilation; G93.1 Anoxic brain damage, not elsewhere classified; I97.121 Postprocedural cardiac arrest following other surgery; T82.7XXA Infection and inflammatory reaction due to other cardiac and vascular devices, implants and grafts, initial encounter; N18.6 End stage renal disease; E11.22 Type 2 diabetes mellitus with diabetic chronic kidney disease; E11.41 Type 2 diabetes mellitus with diabetic mononeuropathy; E78.00 Pure hypercholesterolemia, unspecified; E87.5 Hyperkalemia; I25.10 Atherosclerotic heart disease of native coronary artery without angina pectoris; I50.9 Heart failure, unspecified; Z95.5 Presence of coronary angioplasty implant and graft; Z99.2 Dependence on renal dialysis; E11.21 Type 2 diabetes mellitus with diabetic nephropathy; E03.9 Hypothyroidism, unspecified; E78.5 Hyperlipidemia, unspecified; I44.0 Atrioventricular block, first degree; I77.819 Aortic ectasia, unspecified site; R56.9 Unspecified convulsions; E11.65 Type 2 diabetes mellitus with hyperglycemia; Y84.6 Urinary catheterization as the cause of abnormal reaction of the patient, or of later complication, without mention of misadventure at the time of the procedure; D63.1 Anemia in chronic kidney disease; L89.152 Pressure ulcer of sacral region, stage 2; Z51.5 Encounter for palliative care; Z66 Do not resuscitate; K20.8 Other esophagitis; K44.9 Diaphragmatic hernia without obstruction or gangrene; Z79.4 Long term (current) use of insulin

== ENCOUNTER 2018-11-29 12:17 | Inpatient (IN) | payer OTHER ==
[2018-11-29] MEDS ORDERED: Albuterol-Ipratrop 3 mg / 0.5 (3 ml) UD INH PRN (13:51)
[2018-11-29] MEDS ORDERED: Acetylcysteine 20% Inhal Soln (4ml) INH PRN (13:52)
[2018-11-29] MEDS: Morphine 100 MG in Sodium Chloride 0.9% 90 ML IV PRN (14:33)
[2018-11-29 16:57] VITALS: O2SAT 100
[2018-11-29] MEDS: Acyclovir 5% Oint (15 gm) EXT SCH (23:00)
[2018-11-30] MEDS: Acetaminophen 650mg/20.3ml solution UD PO PRN ×3 (00:40→13:28)
[2018-11-30] MEDS: Acyclovir 5% Oint (15 gm) EXT SCH ×4 (02:00→12:00)
[2018-11-30] MEDS: Morphine 100 MG in Sodium Chloride 0.9% 90 ML IV PRN (07:50)
[2018-11-30] MEDS ORDERED: Morphine 100 MG in Sodium Chloride 0.9% 90 ML IV PRN (13:10)
--- NOTE | 2018-11-30 16:05 | CP.PCM.PRO ---
Pronouncement of Note - Clinical Findings Physical Exam: No Response Verbal/Painful Stimuli, Absent Peripheral Puls es{Carotid & Femoral}, Absent Heart & Breath Sounds, No Pupillary Light Reflex, Pupils Fixed & Dilated, Absence of Vital Signs - Pronouncement Time Time of Pronouncement of : 15:50 - Notifications Pronouncement Notifications: Family Notified, Atending Notified Central Office Operator Supervisor Notified: No - Autopsy Autopsy Requested: No - [place] [id number]
[2018-11-30 16:07] VITALS: BP 46/30; PULSE 79; RESP 15; TEMP 102.8
== END 2018-11-30 20:00 | DRG 298 ==
LOC: C.3T 12:17
PROVIDERS: ADMIT Internal Medicine; ATTEND Internal Medicine
DX: I46.9 Cardiac arrest, cause unspecified (principal)